=== PATIENT | male | born 1995 | race Caucasian/White ===

== ENCOUNTER 2022-08-21 17:35 | Inpatient (IN) | payer SELFPAY ==
--- OUTSIDE RECORDS SUMMARY | 2022-08-21 18:11 | XMS REPORT | Continuity of Care Document ---
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 parameters (refer to continuous heparin drip order)
vancomycin 2021-09- No 15mg/kg 1,500 mg Univers (VANCOCIN) 10-1012 (rounded ity of 1,500 mg in 16:00: 20:49 from 1,941 [place] NaCl 0.9% 00 :00 mg = 15 Medical (NS) 500 mL mg/kg [place] VIAL-MATE ?129.4 IV kg), IV piggyback Piggyback, Q24H ABX, 1 dose, First dose (after last reorder) on [facility] 08/10/22 at 1000, Administer over 240 Minutes, 500 mL
Reas on for Anti-Infec tive: Documented Infection< br>Documen katerin Infection Site: Blood
D uration of Therapy: 7 days diphenhydrA 2021-09 No 25mg 25 mg, Uni vers MINE 10-10 Intravenou ity of (BENADRYL) 15:45: 16:39 s, ONCE, 1 [place] injection 00 :00 dose, On Medica l 25 mg [facility] 08/10/22 at 0945, Routine furosemide 2021-09 No 40mg 40 mg, Univ ers (LASIX) 10-10 Slow IV ity of injection 10:00: 10:23 Push, [place] 40 mg 00 :00 ONCE, 1 Medical dose, On Branch [facility] 08/10/22 at 0400, Routine sodium 2021-09 No 4mL 4 mL, Univers chloride 7% 10-10 Inhalation i ty of (HYPER-SYLVIA) 07:30: 01:40 , DAILY, [place] nebulizer 00 :11 First dose Medi jeanette solution 4 on [facility] mL 08/10/22 at 0130, Until Discontinu ed, Routine proCHLORper 2021-09 No 5mg 5 mg, IV U nivers azine 10-10 Piggyback, ity of (COMPAZINE) 03:45: 05:31 at 100 [place] as 5 mg in 00 :00 mL/hr Medical NaCl 0.9% Administer Bran ch (NS) over 30 piggyback Minutes, ONCE, 1 dose, On Fri08/09/22 at 2145, Routine enoxaparin 2021-09- No 40mg 40 mg, Univ ers (LOVENOX) 10-09 Subcutaneo ity of injection 23:00: 17:16 us, DAILY, [place] 40 mg 00 :11 First dose Medical on Fri [place] 08/09/22 at 1700, Until Discontinu ed, Routine meropenem 2021-09 No 2000mg 2,000 mg, Univers (MERREM) 10-09 IV ity of 2,000 mg in 22:30: 22:17 Piggyback, [place] NaCl 0.9% 00 :44 Q8H ABX, Medica l (NS) 100 mL 30 doses, Bra nch IV First dose piggyback (after last modificati on) on Fri08/09/22 at 1630, Last dose on Fri08/19/22 at 0830, Administer over 3 Hours, 100 mL
Rest ricted use approved by: JERO 8TH FLOOR
R porfirio for Anti-Infec tive: Empiric Therapy for Suspected Infection< br>Empiric Therapy Site: Blood
D uration of therapy: 5 days vancomycin 2021-09 No 15mg/kg 1,500 mg Univers (VANCOCIN) 10-09 (rounded ity of 1,500 mg in 22:15: 06:43 from 1,941 [place] NaCl 0.9% 00 :00 mg = 15 Medical (NS) 500 mL mg/kg Branch VIAL-MATE ?129.4 IV kg), IV piggyback Piggyback, Q24H ABX, 1 dose, First dose (after last modificati on) on Fri08/09/22 at 1615, Administer over 240 Minutes, 500 mL
Reas on for Anti-Infec tive: Documented Infection< br>Documen katerin Infection Site: Blood
D uration of Therapy: 7 days ipratropium 2021-09 No 3mL 3 mL, Univ ers -albuteroL 10-09 Inhalation it y of (DUONEB) 22:00: 21:40 , QID, [place] 0.5 mg-3 00 :48 First dose Medic al mg(2.5 mg on Fri)/3 mL 08/09/22 nebulizer at 1600, solution 3 Until mL Discontinu ed, Routine diphenhydrA 2021-09 No 25mg 25 mg, Uni vers MINE 10-09 Intravenou ity of (BENADRYL) 21:30: 02:35 s, ONCE, 1 [place] injection 00 :00 dose, On Medica l 25 mg Fri/11/22 at 1530, NAIF lactated 2021-09 Yes 1000mL at 50 Univer s ringers IV 1-11 mL/hr, ity of infusion 18:30: 1,000 mL, [place] 1,000 mL 00 IV Medical Infusion, Branch CONTINUOUS , Starting on Fri08/09/22 at 1230, Until Discontinu ed, Routine phenylephri 2021-09- No .5ug/kg 0.5-6 U nivers ne 10-0915 /min mcg/kg/min ity of (VAZCULEP) 17:48: 01:40 ?129.4 kg [place] 50 mg in 50 :11 (19.41-232 Medic al NaCl 0.9% .92 Branch (NS) 250 mL mL/hr), IV infusion Infusion, TITRATE, MAP Goal > or = 65 mmHg, Starting on Fri08/09/22 at 1148
In itiate infusion at 0.5 mcg/kg/min . &nb sp;Increas e by 0.1 mcg/kg/min every 30 seconds to 5 minutes as needed to reach and maintain goal blood pressure.& nbsp;&nbsp ;Maximum dose = 6 mcg/kg/min . &nb sp;If goal not maintained at maximum allowed dose, contact prescriber .
sulfur 2021-09- No [id number] 5mL 5 mL, Unive rs hexafluorid 10-09 Intravenou i ty of e microsphr 17:15: 16:30 s, ONCE, 1 [place] (LUMASON) 00 :00 dose, On Medica l injection 5 Fri Branch mL 08/09/22 at 1115, Routine
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 Restricted medication : MOTIWALA, AFAQ lidocaine 2021-09- No 5mL 5 mL, Univer s 1% (PF) 10-09 Subcutaneo ity o f (XYLOCAINE) 16:15: 17:30 us, ONCE, [place] injection 5 00 :00 1 dose, On Me dical mL Fri Branch 08/09/22 at 1015, Routine NaCl 0.9% 2021-09 Yes 10mL 10 mL, Univer s (NS) 1-11 Slow IV ity of injection 16:13: Push, PRN, [place] 10 mL 00 Starting Medical on Fri Branch 08/09/22 at 1013, Until Discontinu ed, Routine, line maintenanc e lactated 2021-09 No 1000mL at 999 Univ ers ringers IV 10-09 mL/hr, ity of infusion 15:15: 15:10 1,000 mL, [place] as 1,000 mL 00 :00 Intravenou Medic al s, ONCE, 1 Branch dose, On Fri08/09/22 at 0915, Routine meropenem 2021-09 No 2000mg 2,000 mg, Univers (MERREM) 10-09 IV ity of 2,000 mg in 14:30: 17:15 Piggyback, [place] NaCl 0.9% 00 :00 ONCE, 1 Medical (NS) 100 mL dose, On Bran ch IV Fri piggyback 08/09/22 at 0830, Administer over 30 Minutes, 100 mL
Rest ricted use approved by: JERO 8TH FLOOR
R porfirio for Anti-Infec tive: Empiric Therapy for Suspected Infection< br>Empiric Therapy Site: Blood
D uration of therapy: 5 days magnesium 2021-09 No 4g 4 g, IV Univ ers sulfate in 10-09 Piggyback, it y of water 4 13:30: 20:38 at 25 [place] gram/50 mL 00 :00 mL/hr Medical (8 %) IV Administer Branc h Piggyback 4 over 120 g Minutes, ONCE, 1 dose, On Fri08/09/22 at 0730, Routine proCHLORper 2021-09 Yes 10mg 10 mg, IV U nivers azine 10-09 Piggyback, ity of (COMPAZINE) 13:24: at 100 [place] 10 mg in 49 mL/hr Medical NaCl 0.9% Administer Bran ch (NS) over 30 piggyback Minutes, Q6HPRN, Starting on Fri08/09/22 at 0724, Until Discontinu ed, Routine, Nausea and Vomiting (N/V) dextrose 2021-09 Yes 250mL 250 mL, IV Un shine 10% (D10W) 10-09 Infusion, ity of bolus 12:00: PRN - SEE [place] infusion 57 INSTRUCTIO Medic al 250 mL NS, Branch Administer over 60 Minutes, Other, If blood glucose is < or = 70 mg/dL and patient is unable to swallow or has mental status changes, Starting on Fri08/09/22 at 0600
If blood glucose is < or = 70 mg/dL and patient is unable to swallow or has mental status changes (Give glucagon order if patient needs fluid restrictio n): IF IV access available: Dextrose 10%. 1. 125 mL (? bag) of D10W IV infusion - equivalent to 12.5 g dextrose 2. Blood glucose - draw blood glucose 15 minutes after D10W Administra tion. 3. If blood glucose is < 80 mg/dL, repeat.
glucagon 2021-09 Yes 1mg 1 mg, Univers (GLUCAGEN 10-09 Intramuscu ity of DIAGNOSTIC 12:00: lar, PRN, [place] KIT) 54 Starting Medical injection 1 on Fri Branch mg 08/09/22 at 0600, Until Discontinu ed, NAIF, Blood Glucose < or = 70 mg/dL and patient is unable to swallow or has mental changes. acetaminoph 2021-09 Yes 650mg 650 mg, Un shine en 10-09 Oral, ity of (TYLENOL) 11:24: Q6HPRN, [place] tablet 650 27 Starting Medic al mg on Fri Branch 08/09/22 at 0524, Until Discontinu ed, Routine, Pain (scale 1-3) ondansetron 2021-09- No 4mg 4 mg, Slow Univers (ZOFRAN 10-09 IV Push, ity of (PF)) 09:00: 09:00 ONCE, 1 [place] injection 4 00 :00 dose, On Medi jeanette mg Fri Branch 08/09/22 at 0300, NAIF ranolazine 2021-09 Yes 1000mg Take 1,000 Univers 500 mg 12 -11 mg by ity of hr tablet 08:23: mouth in [place] [facility] 45 the Medical morning Branch and 1,000 mg in the evening. pantoprazol 2021-09 Yes 40mg Take 40 mg Univers e 40 mg EC 11 by mouth ity o f tablet 08:23: in the [place] [id number] morning. Medical Branch atogepant 2021-09 Yes 10mg Take 10 mg Un shine (QULIPTA) 11 by mouth ity of 10 mg Tab 08:23: daily. [address] Branch tirzepatide 2021-09 Yes 5mg inject 5 Un shine (MOUNJARO) 1-11 mg under ity o f 5 mg/0.5 mL 08:23: the skin [place] PnIj 45 every 2 Medical (two) Branch weeks. ranolazine 2021-09 Yes 1000mg Take 1,000 Univers 500 mg 12 -11 mg by ity of hr tablet 08:23: mouth in [place] 45 the Medical morning Branch and 1,000 mg in the evening. pantoprazol 2021-09 Yes 40mg Take 40 mg Univers e 40 mg EC 11 by mouth ity o f tablet 08:23: in the [place] [id number] morning. [facility] Branch atogepant 2021-09 Yes 10mg Take 10 mg Un shine (QULIPTA) 11 by mouth ity of 10 mg Tab 08:23: daily. [address] Branch tirzepatide 2021-09 Yes 5mg inject 5 Un shine (MOUNJARO) 1-11 mg under ity o f 5 mg/0.5 mL 08:23: the skin [place] PnIj 45 every 2 Medical (two) Branch weeks. NaCl 0.9% 2021-09- No 1000mL at 999 Uni vers (NS) IV 10-0911 mL/hr, ity of infusion 07:30: 12:01 Intravenou [place] 1,000 mL 00 :21 s, Medical CONTINUOUS Branch , Starting on Fri08/09/22 at 0130, Until Fri08/09/22 at 0601, Routine doxepin 10 2021-09- No 10mg Take 10 mg Univers mg capsule 10-09 by mouth. ity of 05:38: 00:00 [place] 39 :00 Medical Branch Venlafaxine 2021-09- No Take by Un shine 225 mg TR24 10-09 mouth. ity o f 05:37: 00:00 [place] 51 :00 Medical Branch lurasidone 2021-09- No Take by Uni vers (LATUDA) 20 10-09 mouth. ity o f mg tablet 05:37: 00:00 [place] 36 :00 Medical Branch levalbutero 2021-09 Yes .31mg Inhale Uni vers l 0.31 mg/3 10-09 0.31 mg 3 ity of mL 04:35: (three) [place] nebulizer 17 times Medical solution daily. Branch levalbutero 2021-09 Yes .31mg Inhale Uni vers l 0.31 mg/3 10-09 0.31 mg 3 ity of mL 04:35: (three) [place] nebulizer 17 times Medical solution daily. Branch ondansetron 2021-09- No 4mg 4 mg, Slow Univers (ZOFRAN 10-09 IV Push, ity of (PF)) 02:45: 02:42 ONCE, 1 [place] injection 4 00 :00 dose, On Medi jeanette mg [place] Branch 08/08/22 at 2045, NAIF NaCl 0.9% 2021-09 No 500mL at 999 Univ ers (NS) bolus 10-09 mL/hr, 500 it y of infusion 01:45: 05:01 mL, IV [place] 500 mL 00 :00 Infusion, Medical ONCE, 1 Branch dose, On [place] 08/08/22 at 1945, STAT morpHINE (2 2021-09 No 2mg 2 mg, Slow Univers mg/mL) 10-09 IV Push, ity of injection 2 01:45: 02:37 ONCE, 1 [place] mg 00 :00 dose, On Medical [facility] Branch 08/08/22 at 1945, STAT XARELTO 2.5 2021-09 Yes 2.5mg Take 2.5 U nivers mg tablet 0-31 mg by ity of 00:00: mouth 2 [place] (two) Medical times Branch daily. XARELTO 2.5 2021-09 Yes 2.5mg Take 2.5 U nivers mg tablet 0-31 mg by ity of 00:00: mouth 2 [place] 00 (two) Medical times Branch daily. XARELTO 2.5 2021-09 Yes 2.5mg Take 2.5 U nivers mg tablet 0-31 mg by ity of 00:00: mouth 2 [place] (two) Medical times Branch daily. XARELTO 2.5 2021-09 Yes 2.5mg Take 2.5 U nivers mg tablet 0-31 mg by ity of 00:00: mouth 2 [place] (two) Medical times Branch daily. XARELTO 2.5 2021-09 Yes 2.5mg Take 2.5 U nivers mg tablet 0-31 mg by ity of 00:00: mouth 2 [place] (two) Medical times Branch daily. isosorbide 2021-09 Yes 60mg Take 60 mg U nivers mononitrate 0-29 by mouth ity of 60 mg 24 hr 00:00: every [place] tablet 00 morning. Medical Branch isosorbide 2021-09 Yes 60mg Take 60 mg U nivers mononitrate 0-29 by mouth ity of 60 mg 24 hr 00:00: every [place] tablet 00 morning. Medical Branch isosorbide 2021-09 Yes 60mg Take 60 mg U nivers mononitrate 0-29 by mouth ity of 60 mg 24 hr 00:00: every [place] tablet 00 morning. Medical Branch isosorbide 2021-09 Yes 60mg Take 60 mg U nivers mononitrate 0-29 by mouth ity of 60 mg 24 hr 00:00: every [place] tablet 00 morning. Medical Branch isosorbide 2021-09 Yes 60mg Take 60 mg U nivers mononitrate 0-29 by mouth ity of 60 mg 24 hr 00:00: every [place] tablet 00 morning. Medical Branch metoprolol Yes 25mg Take 25 mg U nivers succinate 8-12 by mouth ity of XL 25 mg 24 00:00: in [place] hr tablet 00 morning. Medica l Branch metoprolol Yes 25mg Take 25 mg U nivers succinate 8-12 by mouth ity of XL 25 mg 24 00:00: in the [place] hr tablet 00 morning. Medica l Branch metoprolol 0 Yes 25mg Take 25 mg U nivers succinate 8-12 by mouth ity of XL 25 mg 24 00:00: in the [place] hr tablet 00 morning. Medica l Branch metoprolol Yes 25mg Take 25 mg U nivers succinate 8-12 by mouth ity of XL 25 mg 24 00:00: in the [place] hr tablet 00 morning. Medica l Branch metoprolol Yes 25mg Take 25 mg U nivers succinate 8-12 by mouth ity of XL 25 mg 24 00:00: in [place] hr tablet 00 morning. Medica l Branch diltiazem 0 Yes 180mg Take 180 Uni vers (CARDIZEM 2-22 mg by ity of CD) 180 mg 00:00: mouth [place] 24 hr 00 every 24 Medical capsule (twenty-fo Branch ur) hours. diltiazem 0 Yes 180mg Take 180 Uni vers (CARDIZEM 2-22 mg by ity of CD) 180 mg 00:00: mouth [place] 24 hr 00 every 24 Medical capsule (twenty-fo Branch ur) hours. diltiazem 0 Yes 180mg Take 180 Uni vers (CARDIZEM 2-22 mg by ity of CD) 180 mg 00:00: mouth [place] 24 hr 00 every 24 Medical capsule (twenty-fo Branch ur) hours. diltiazem 0 Yes 180mg Take 180 Uni vers (CARDIZEM 2-22 mg by ity of CD) 180 mg 00:00: mouth [place] 24 hr 00 every 24 Medical capsule (twenty-fo Branch ur) hours. diltiazem 0 Yes 180mg Take 180 Uni vers (CARDIZEM 2-22 mg by ity of CD) 180 mg 00:00: mouth [place] 24 hr 00 every 24 Medical capsule (twenty-fo Branch ur) hours. sertraline Yes 100mg Take [address] [facility] [address] (ZOLOFT) 7-11 mg [facility] MG 16:37: mouth. Medical tablet 23 Center ranolazine Yes 1000mg Take 1,[address] [facility] (RANEXA) 7-11 mg by [facility] 500 MG 12 16:37: mouth. Medica l hr tablet 23 Center pregabalin 0 Yes 100mg Take [address] (LYRICA) 7-11 mg by [facility] 100 MG 16:37: mouth. Medical capsule 23 Center pantoprazol 0 Yes 40mg Take [address] [facility] e 7-11 by mouth. [facility] (PROTONIX) 16:37: Medical 40 MG 23 Center tablet multivitami Yes 1{capsu Take [address] n per 7-11 le} capsule by [facility] tablet 16:37: mouth. [address] metFORMIN Yes 1{tbl} Take [address] [facility] (GLUCOPHAGE 7-11 tablet by [place] es -XR) 500 MG 16:37: mouth. Medi jeanette 24 hr 23 Center tablet ARIPiprazol Yes 10mg Take [address] [facility] e (ABILIFY) 7-11 by mouth. [place] es 10 MG 16:37: Medical disintegrat [address] [place] [address] ing tablet ascorbic Yes 1000mg Take 1,[address] acid, 7-11 mg by [facility] vitamin C, 16:37: mouth. Medic al (VITAMIN C) 23 [place] 1000 MG tablet aspirin 81 Yes 81mg Take [address] MG EC 7-11 by mouth. [facility] tablet 16:37: [address] carvediloL Yes 25mg Take [address] (COREG) 25 7-11 by mouth. Luke s MG tablet 16:37: [address] cholecalcif Yes 5000U Take 5,[address] aminah, 7-[facility], 16:37: mouth. [facility] jeanette (VITAMIN 23 Center D3) 125 mcg (5,000 unit) capsule clomiPHENE Yes 25mg Take [address] (CLOMID) 50 7-11 by mouth. [place] es mg tablet 16:37: [address] cyanocobala Yes 5000ug Place [facility] min, 7-11 5,000 [facility] vitamin 16:37: under the Medic al B-12, 5,000 23 tongue. Cente r mcg Subl cycloSPORIN Yes 1[drp] [address] E 7-11 [facility] (RESTASIS) 16:37: Medical 0.05 % 23 Center ophthalmic emulsion dilTIAZem Yes 240mg Take [address] (CARDIZEM) 7-11 mg by [facility] 60 MG 16:37: mouth. Medical tablet 23 Center fluticasone Yes 2{puff} Inhale [address] propion-sylvia 7-11 puffs by Luke s meteroL 16:37: mouth via Medic al (ADVAIR) 23 inhaler. [place] 250-50 mcg/dose diskus inhaler furosemide Yes 40mg Take [address] (LASIX) 40 7-11 by mouth. Luke s MG tablet 16:37: Medical 23 Center levalbutero Yes 1{ampul Inhale [address] l (XOPENEX) 7-11 e} ampule by [place] es 1.25 mg/3 16:37: mouth via Med ical mL 23 inhaler. [place] nebulizer solution levalbutero Yes 1{puff} Inhale 1-[address] l (XOPENEX 7-11 puffs by [facility] HFA) 45 16:37: mouth via Medic al mcg/actuati 23 inhaler. Cent er on inhaler sertraline Yes 100mg Take [address] (ZOLOFT) 7-11 mg by [facility] 100 MG 16:37: mouth. Medical tablet 23 Center ranolazine Yes 1000mg Take 1,[address] (RANEXA) 7-11 mg by [facility] 500 MG 12 16:37: mouth. Medica l hr tablet 23 Center pregabalin Yes 100mg Take [address] (LYRICA) 7-11 mg by [facility] 100 MG 16:37: mouth. Medical capsule 23 Center pantoprazol Yes 40mg Take [address] e 7-11 by mouth. [facility] (PROTONIX) 16:37: Medical 40 MG 23 Center tablet multivitami Yes 1{capsu Take [address] n per 7-11 le} capsule by [facility] tablet 16:37: mouth. Medical 23 Center metFORMIN Yes 1{tbl} Take [address] [facility] [address] (GLUCOPHAGE 7-11 tablet by [place] es -XR) 500 MG 16:37: mouth. Medi jeanette 24 hr 23 Center tablet ARIPiprazol Yes 10mg Take [address] [facility] [facility] e (ABILIFY) 7-11 by mouth. [place] es 10 MG 16:37: Medical disintegrat 23 Center ing tablet ascorbic Yes 1000mg Take 1,[address] acid, 7-11 mg by [facility] vitamin C, 16:37: mouth. Medic al (VITAMIN C) 23 Center 1000 MG tablet aspirin 81 Yes 81mg Take [address] MG EC 7-11 by mouth. [facility] tablet 16:37: [address] carvediloL Yes 25mg Take [address] (COREG) 25 7-11 by mouth. Luke s MG tablet 16:37: [address] cholecalcif Yes 5000U Take 5,[address] aminah, 7-11 Units by [facility] vitamin D3, 16:37: mouth. Medi jeanette (VITAMIN Center D3) 125 mcg (5,000 unit) capsule clomiPHENE Yes 25mg Take [address] (CLOMID) 50 7-11 by mouth. [place] es mg tablet 16:37: [address] cyanocobala Yes 5000ug [facility] min, 7-11 5,000 mcg [facility] vitamin 16:37: under the Medic al B-12, 5,000 23 tongue. Cente r mcg Subl cycloSPORIN Yes 1[drp] [address] E 7-11 [facility] (RESTASIS) 16:37: Medical 0.05 % 23 Center ophthalmic emulsion dilTIAZem Yes 240mg Take [address] (CARDIZEM) 7-11 mg by [facility] 60 MG 16:37: mouth. Medical tablet [address] [place] [address] fluticasone Yes 2{puff} Inhale [address] propion-sylvia 7-11 puffs by Luke s meteroL 16:37: mouth via Medic al (ADVAIR) 23 inhaler. [place] 250-50 mcg/dose diskus inhaler furosemide Yes 40mg Take [address] (LASIX) 40 7-11 by mouth. Luke s MG tablet 16:37: [address] levalbutero Yes 1{ampul Inhale [address] l (XOPENEX) 7-11 e} ampule by [place] es 1.25 mg/3 16:37: mouth via Med ical mL 23 inhaler. [place] nebulizer solution levalbutero Yes 1{puff} Inhale 1-[address] l (XOPENEX 7-11 puffs by [facility] HFA) 45 16:37: mouth via Medic al mcg/actuati 23 inhaler. [facility] er on inhaler sertraline Yes 100mg Take [address] (ZOLOFT) 7-11 mg by [facility] 100 MG 16:37: mouth. Medical tablet 23 Center ranolazine Yes 1000mg Take 1,[address] (RANEXA) 7-11 mg by [facility] 500 MG 12 16:37: mouth. Medica l hr tablet 23 Center pregabalin Yes 100mg Take [address] (LYRICA) 7-11 mg by [facility] 100 MG 16:37: mouth. Medical capsule 23 Center pantoprazol Yes 40mg Take [address] e 7-11 by mouth. [facility] (PROTONIX) 16:37: Medical 40 MG 23 Center tablet multivitami Yes 1{capsu Take [address] n per 7-11 le} capsule by [facility] tablet 16:37: mouth. [facility] 23 Center metFORMIN Yes 1{tbl} Take [address] (GLUCOPHAGE 7-11 tablet by [place] es -XR) 500 MG 16:37: mouth. Medi jeanette 24 hr 23 Center tablet ARIPiprazol Yes 10mg Take [address] [facility] e (ABILIFY) 7-11 by mouth. [place] es 10 MG 16:37: [facility] disintegrat 23 Center ing tablet ascorbic Yes 1000mg Take 1,[address] acid, 7-11 mg by [facility] vitamin C, 16:37: mouth. [facility] al (VITAMIN C) 23 Center 1000 MG tablet aspirin 81 Yes 81mg Take [address] MG EC 7-11 by mouth. [facility] tablet 16:37: [address] carvediloL Yes 25mg Take [address] (COREG) 25 7-11 by mouth. Luke s MG tablet 16:37: [place] [address] Center cholecalcif Yes 5000U Take 5,[address] aminah, 7-11 Units by [facility] vitamin D3, 16:37: mouth. Medi jeanette (VITAMIN 23 Center D3) 125 mcg (5,000 unit) capsule clomiPHENE Yes 25mg Take [address] (CLOMID) 50 7-11 by mouth. [place] es mg tablet 16:37: [address] cyanocobala Yes 5000[address] [facility] min, 7-11 5,000 mcg [facility] vitamin 16:37: under the Medic al B-12, 5,000 23 tongue. Cente r mcg Subl cycloSPORIN Yes 1[drp] [address] E 7-11 [facility] (RESTASIS) 16:37: Medical 0.05 % 23 Center ophthalmic emulsion dilTIAZem Yes 240mg Take [address] (CARDIZEM) 7-11 mg by [facility] 60 MG 16:37: mouth. Medical tablet 23 [place] fluticasone Yes 2{puff} Inhale [address] propion-sylvia 7-11 puffs by Luke s meteroL 16:37: mouth via Medic al (ADVAIR) 23 inhaler. [place] 250-50 mcg/dose diskus inhaler furosemide Yes 40mg Take [address] (LASIX) 40 7-11 by mouth. Luke s MG tablet 16:37: Medical 23 [place] levalbutero Yes 1{ampul Inhale [address] l (XOPENEX) 7-11 e} ampule by [place] es 1.25 mg/3 16:37: mouth via Med ical mL 23 inhaler. [place] nebulizer solution levalbutero Yes 1{puff} Inhale 1-[address] l (XOPENEX 7-11 puffs by [facility] HFA) 45 16:37: mouth via Medic al mcg/actuati 23 inhaler. Cent er on inhaler amitriptyli 2020- No 10mg QD Take [address] [facility] ne (ELAVIL) 04-08 0711 by mouth [place] 10 MG 15:25: 00:00 nightly. Medical tablet 26 :00 [place] amitriptyli 2020- No 10mg QD Take [address] [facility] ne (ELAVIL) 04-0811 by mouth [place] 10 MG 15:25: 00:00 nightly. Medical tablet 26 :00 [place] cyanocobala Yes 5000ug QD Place Met hodi min, 7-09 5,[address] vitamin 21:26: under the Hospi ta B-12, 5,000 46 tongue l mcg tablet, daily. sublingual pantoprazol 2021-0 Yes 40mg QD Take 40 mg Methodi e 7-[address] (PROTONIX) 21:26: daily. Hospi ta 40 MG EC 46 l tablet furosemide 1-0 Yes 40mg Q24H Take 40 mg M ethodi (LASIX) 40 7-[address] mg tablet 21:26: daily as Hosp lew 46 needed l (for swelling). ARIPiprazol 2021-0 Yes 10mg QD Take 10 mg Methodi e (ABILIFY) 7-[address] 10 MG 21:26: nightly. Hospita disintegrat 46 l ing tablet cyanocobala 2020-[address] [facility] lizette, 04-06 5,[address] vitamin 21:26: under the Hospi ta B-12, 5,000 46 tongue l mcg tablet, daily. sublingual pantoprazol 2020-0 Yes 40mg QD Take 40 mg Methodi e 7-[address] (PROTONIX) 21:26: daily. Hospi ta 40 MG EC 46 l tablet furosemide 2020-0 Yes 40mg Q24H Take 40 mg M ethodi (LASIX) 40 7-[address] mg tablet 21:26: daily as Hosp lew 46 needed l (for swelling). ARIPiprazol 2020-0 Yes 10mg QD Take 10 mg Methodi e (ABILIFY) 7-[address] 10 MG 21:26: nightly. Hospita disintegrat 46 l ing tablet ranolazine 2020-0 Yes 1000mg Q.5D Take 1,000 Methodi (RANEXA) 7-[address] 500 MG 12 15:24: mouth 2 Hospi ta hr ER 53 (two) l tablet times a day. sertraline 1-0 Yes 100mg QD Take 100 Me [facility] (ZOLOFT) 7-[address] 100 MG 15:24: mouth Hospita tablet 53 daily. l carvediloL 2021-0 Yes 25mg Q.5D Take 25 mg M ethodi (COREG) 25 7-[address] MG tablet 15:24: (two) Hospita 53 times a l day with meals. lisinopriL 2021-0 Yes 5mg QD Take 5 mg [facility] (PRINIVIL) 7-[address] 5 mg tablet 15:24: nightly. Ho spita 53 l atorvastati 2020-0 Yes 20mg QD Take 20 mg [facility] (LIPITOR) 7-[address] 20 mg 15:24: nightly. Hospita tablet 53 Default OP l ins fluticasone 2020-0 Yes 2{puff} Q.5D Inhale 2 [facility] propion-sylvia 7-[address] meteroL 15:24: (two) Hospita (ADVAIR/ 53 times a l WIXELA day. INHUB) 250-50 mcg/dose DISKUS diltiazem 2020-0 Yes 240mg QD Take 240 [facility] (CardIZEM) 7-09 mg by st 60 MG 15:24: mouth Hospita tablet 53 daily. l ranolazine 2020-0 Yes 1000mg Q.5D Take 1,000 [facility] (RANEXA) 7-[address] 500 MG 12 15:24: mouth 2 Hospi ta hr ER 53 (two) l tablet times a day. sertraline 0 Yes 100mg QD Take 100 Me [facility]odi (ZOLOFT) 7-[address] 100 MG 15:24: mouth [facility]ospita tablet 53 daily. l carvediloL 2020-0 Yes 25mg Q.5D Take 25 mg M [facility]i (COREG) 25 7-[address] MG tablet 15:24: (two) Hospita 53 times a l day with meals. lisinopriL 2020-0 Yes 5mg QD Take 5 mg [facility] (PRINIVIL) 7-[address] 5 mg tablet 15:24: nightly. Ho spita 53 l atorvastati 2020-0 Yes 20mg QD Take 20 mg [facility] n (LIPITOR) 7-[address] 20 mg 15:24: nightly. Hospita tablet 53 Default OP l ins fluticasone 2020-0 Yes 2{puff} Q.5D Inhale 2 [facility] propion-sylvia 7-[address] meteroL 15:24: (two) Hospita (ADVAIR/ 53 times a l WIXELA day. INHUB) 250-50 mcg/dose DISKUS diltiazem 2020-0 Yes 240mg QD Take 240 [facility] (CardIZEM) 7-[address] 60 MG 15:24: mouth [facility]ospita tablet 53 daily. l pregabalin Yes 100mg Q.5D Take 100 [facility] (LYRICA) 7-[address] 100 MG 11:41: mouth 2 Hospita capsule 41 (two) l times a day. cholecalcif 0 Yes 5000U QD Take 5,000 [facility] aminah, 7-[address] vitamin D3, 11:41: mouth Hospi ta 5,000 unit 41 daily. l capsule ascorbic Yes 1000mg Q.5D Take 1,000 M ethodi acid, 7-[address] vitamin C, 11:41: mouth 2 Hosp lew (VITAMIN C) 41 (two) l 1000 MG times a tablet day. multivitami Yes 1{capsu Q.5D Take 1 M ethodi n 04-06 le} capsule by st (THERAGRAN) 11:41: mouth 2 Hos loki tablet 41 (two) l times a day. levalbutero Yes 1{puff} Q4H Inhale 1-2 [facility] l (XOPENEX - puffs st HFA) 45 11:41: every 4 Hospita mcg/actuati 41 (four) l on inhaler hours as needed for wheezing or shortness of breath. levalbutero Yes 1{ampul Q4H Take 1 M ethodi l (XOPENEX) 04-06 e} ampule by st 1.25 mg/3 11:41: nebulizati Ho spita mL 41 on every 4 l nebulizer (four) solution hours as needed for wheezing or shortness of breath. varenicline Yes 1mg QD Take 1 mg M ethodi (CHANTIX) [address] mg tablet 11:41: daily. Hospit a 41 Take with l full glass of water. traZODone Yes 75mg QD Take 75 mg [facility] (DESYREL) [address] 50 MG 11:41: nightly. Hospita tablet 41 l cycloSPORIN 0 Yes 1[drp] Q.5D Administer [facility] E 04-[address] (RESTASIS) 11:41: both eyes Ho spita 0.05 % 41 2 (two) l ophthalmic times a emulsion day. aspirin Yes 81mg QD Take 81 mg Meth david (ECOTRIN) [address] 81 MG 11:41: daily. Hospita enteric 41 l coated tablet pregabalin Yes 100mg Q.5D Take 100 [facility] (LYRICA) 7-[address] 100 MG 11:41: mouth 2 Hospita capsule 41 (two) l times a day. cholecalcif Yes 5000U QD Take 5,000 [facility] aminah, 7-09 Units by vitamin D3, 11:41: mouth Hospi ta 5,000 unit 41 daily. l capsule ascorbic Yes 1000mg Q.5D Take 1,000 M ethodi acid, 7-09 mg by vitamin C, 11:41: mouth 2 Hosp lew (VITAMIN C) 41 (two) l 1000 MG times a tablet day. multivitami Yes 1{capsu Q.5D Take 1 M ethodi n 04-06 le} capsule by (THERAGRAN) 11:41: mouth 2 Hos loki tablet 41 (two) l times a day. levalbutero Yes 1{puff} Q4H Inhale 1-2 [facility] l (XOPENEX - puffs st HFA) 45 11:41: every 4 Hospita mcg/actuati 41 (four) l on inhaler hours as needed for wheezing or shortness of breath. levalbutero Yes 1{ampul Q4H Take 1 M ethodi l (XOPENEX) 04-06 e} ampule by 1.25 mg/3 11:41: nebulizati Ho spita mL 41 on every 4 l nebulizer (four) solution hours as needed for wheezing or shortness of breath. varenicline Yes 1mg QD Take 1 mg M [facility]i (CHANTIX) 1 04-[address] mg tablet 11:41: daily. Hospit a 41 Take with l full glass of water. traZODone Yes 75mg QD Take 75 mg [facility] (DESYREL) [address] 50 MG 11:41: nightly. Hospita tablet 41 l cycloSPORIN Yes 1[drp] Q.5D Administer [facility] E 04-[address] (RESTASIS) 11:41: both eyes Ho spita 0.05 % 41 2 (two) l ophthalmic times a emulsion day. aspirin Yes 81mg QD Take 81 mg Meth david (ECOTRIN) 04-[address] 81 MG 11:41: daily. Hospita enteric 41 l coated tablet predniSONE 2020- No 20mg QD Take 1 Meth david (DELTASONE) 04-06 tablet (20 s t 20 mg 00:00: 04:59 mg total) Hospit a tablet 00 :00 by mouth l daily for 9 days. predniSONE 2020- No 20mg QD Take 1 Meth david (DELTASONE) 04-06 tablet (20 s t 20 mg 00:00: 04:59 mg total) Hospit a tablet 00 :00 by mouth l daily for 9 days. predniSONE 2020- No 20mg Take [address] [facility] (DELTASONE) 04-06 by mouth. Nelly kes 20 MG 00:00: 23:59 Medical tablet 00 :00 [place] predniSONE 2020- No 20mg Take [address] [facility] (DELTASONE) 04-06 by mouth. Nelly kes 20 MG 00:00: 23:59 Medical tablet 00 :00 [place] fluticasone 2020- No QD Inhale 1 M ethodi furoate-evan 04-05 inhalation s t anteroL 23:11: 00:00 s daily. Hospi ta (BREO 36 :00 l ELLIPTA) 100-25 mcg/dose blister with device powder for inhalation venlafaxine 2020- No 75mg QD Take 75 mg [facility] XR 04-[address] (EFFEXOR-XR 23:11: 00:00 daily. Hos loki ) 75 MG 24 36 :00 l hr capsule lamoTRIgine 2020- No 25mg Q.5D Take 25 mg [facility] (LaMICtal) 04-[address] 25 MG 23:11: 00:00 (two) Hospita tablet 36 :00 times a l day. cariprazine 2020- No 3mg QD Take 3 mg [facility] (VRAYLAR) 3 04-[address] mg capsule 23:11: 00:00 nightly. Ho spita 36 :00 l fluticasone 2020- No QD Inhale 1 M ethodi furoate-evan 04-05 inhalation s t anteroL 23:11: 00:00 s daily. Hospi ta (BREO 36 :00 l ELLIPTA) 100-25 mcg/dose blister with device powder for inhalation venlafaxine 2020- No 75mg QD Take 75 mg [facility] XR 04-[address] (EFFEXOR-XR 23:11: 00:00 daily. Hos loki ) 75 MG 24 36 :00 l hr capsule lamoTRIgine 2020- No 25mg Q.5D Take 25 mg [facility] (LaMICtal) 04-[address] 25 MG 23:11: 00:00 (two) Hospita tablet 36 :00 times a l day. cariprazine No 3mg QD Take 3 mg [facility] (VRAYLAR) 3 04-[address] mg capsule 23:11: 00:00 nightly. Ho spita 36 :00 l clopidogreL 2020- No 75mg QD Take 75 mg [facility] (PLAVIX) 75 04-[address] mg tablet 21:58: 00:00 daily. Hospi ta 42 :00 l clopidogreL 2020- No 75mg QD Take 75 mg [facility] (PLAVIX) 75 04-05-[address] mg tablet 21:58: 00:00 daily. Hospi ta 42 :00 l atorvastati Yes 20mg Take [address] [facility] (LIPITOR) 5-19 by mouth. Glenna es 20 MG 00:00: Medical tablet 00 Center nitroglycer Yes 1{patch Place [address] [facility] in 5-19 } patch onto [facility] (NITROD[facility]) 00:00: the skin. Me dical 0.1 mg/hr 00 Center patch nitroglycer Yes .4mg Place 0.[address] in 5-19 mg under [facility] (NITROSTAT) 00:00: the Medica l 0.4 MG SL 00 tongue. Center tablet atorvastati 2020-0 Yes 20mg Take [address] [facility] (LIPITOR) 5-19 by mouth. Glenna es 20 MG 00:00: Medical tablet 00 Center nitroglycer 2020-0 Yes 1{patch Place [address] [facility] in 5-19 } patch onto [facility] (NITRODUR) 00:00: the skin. Me dical 0.1 mg/hr 00 Center patch nitroglycer 2020-[address] 0[address] in 5-19 mg [facility] (NITROSTAT) 00:00: the Medica l 0.4 MG SL 00 tongue. Center tablet atorvastati 2020-0 Yes 20mg Take [address] [facility] (LIPITOR) 5-19 by mouth. Gl[place] es 20 MG 00:00: Medical tablet 00 Center nitroglycer 2020-0 Yes 1{patch Place [address] [facility] in 5-19 } patch onto [facility] (NITRODUR) 00:00: the skin. Me dical 0.1 mg/hr 00 Center patch nitroglycer 2020-[address] 0.[address] in 5-19 mg [facility] (NITROSTAT) 00:00: the Medica l 0.4 MG SL 00 tongue. Center tablet lisinopriL 2019-1 Yes 5mg Take [address] [facility] [address] [facility] (PRINIVIL,Z 1-17 by mouth. Glenna es ESTRIL) 5 00:00: Medical MG tablet 00 Center lisinopriL 2020-1 Yes 5mg Take [address] [facility] [address] (PRINIVIL,Z 1-17 by mouth. [place] es ESTRIL) 5 00:00: Medical MG tablet 00 Center lisinopriL 2020-1 Yes 5mg Take [address] [facility] [address] (PRINIVIL,Z 1-17 by mouth. Gl[place] es ESTRIL) 5 00:00: Medical MG tablet 00 [place] levalbutero 2019-0 Yes .31mg Inhale Uni vers l 0.31 mg/3 8-24 0.31 mg 3 ity of mL 23:17: (three) [place] nebulizer 25 times Medical solution daily. Branch Venlafaxine 2019-0 Yes Take by Uni vers 225 mg TR24 8-24 mouth. ity of 23:17: [place] 25 Medical Branch lurasidone 2020-0 Yes Take by [facility] ([facility]) 20 8-24 mouth. ity of mg tablet 23:17: [address] doxepin 10 2019-0 Yes 10mg Take 10 mg U nivers mg capsule 8-24 by mouth. ity of 23:17: [address] levalbutero 2020-0 Yes .31mg Inhale Uni vers l 0.31 mg/3 8-24 0.31 mg 3 ity of mL 23:17: (three) [place] nebulizer 25 times Medical solution daily. Branch Venlafaxine 2019-0 Yes Take by Uni vers 225 mg TR24 8-24 mouth. ity of 23:17: [address] lurasidone 2019-0 Yes Take by [facility] ([facility]) 20 8-24 mouth. ity of mg tablet 23:17: [address] doxepin 10 2019-0 Yes 10mg Take 10 mg U nivers mg capsule 8-24 by mouth. ity of 23:17: [address] levalbutero 2019-0 Yes .31mg Inhale Uni vers l 0.31 mg/3 8-24 0.31 mg 3 ity of mL 23:17: (three) [place] nebulizer 25 times Medical solution daily. Branch Venlafaxine 2019-0 Yes Take by Uni vers 225 mg TR24 8-24 mouth. ity of 23:17: [address] lurasidone 2019-0 Yes Take by [facility] ([facility]) 20 8-24 mouth. ity of mg tablet 23:17: [address] doxepin 10 2019-0 Yes 10mg Take 10 mg U nivers mg capsule 8-24 by mouth. ity of 23:17: [address] pregabalin 2019-0 2020- No 50mg Take 50 mg Univers 50 mg 8-24 08-24 by mouth 3 ity of capsule 22:10: 00:00 (three) [place] 12 :00 times Medical daily. Branch levalbutero 2020-0 Yes .31mg Inhale Uni vers l 0.31 mg/3 8-24 0.31 mg 3 ity of mL 18:17: (three) [place] nebulizer 25 times Medical solution daily. Branch Venlafaxine 2019-0 Yes Take by Uni vers 225 mg TR24 8-24 mouth. ity of 18:17: [address] lurasidone 2020-0 Yes Take by [facility] ers (LATUDA) 20 8-24 mouth. ity of mg tablet 18:17: [address] doxepin 10 2020-0 Yes 10mg Take 10 mg U nivers mg capsule 05-22 by mouth. ity of 18:17: [address] lactated 2020-0 2020- No 500mL at 999 Unive rs ringers IV 05-22 08-24 mL/hr, 500 it y of infusion 10:15: 09:30 mL, IV [place] 500 mL 00 :00 Infusion, Medical ONCE, 1 Branch dose, [facility] 05/22/20 at 0515, STAT lactated 2020-0 2020- No 500mL at 999 Unive rs ringers IV 05-22 08-24 mL/hr, 500 it y of infusion 06:30: 06:19 mL, IV [place] 500 mL 00 :00 Infusion, Medical ONCE, 1 Branch dose, [facility] 05/22/20 at 0130, STAT clonazePAM 2019-0 2020- No .5mg 0.5 mg, Uni vers (KLONOPIN) 05-2224 Oral, ity of tablet 0.5 02:30: 01:46 ONCE, 1 [place] as mg 00 :00 dose, [facility] 05/21/20 at Branch 2130, Routine ramelteon 2020-0 Yes 8mg 8 mg, Univers (ROZEREM) 824 Oral, QHS, ity of tablet 8 mg 02:00: First dose [place] 00 on [facility] 05/21/20 at Branch 2100, Until Discontinu ed, Routine heparin 2020-0 Yes 5000U 5,000 Univers (porcine) 8-22 Units, ity of injection 01:00: [place] 5,000 Units 00 us, Q12H, Med ical First dose Branch on Fri05/19/20 at 2000, Until Discontinu ed, Routine acetaminoph 2020-0 Yes 650mg 650 mg, Un shine en 05-19 Oral, ity of (TYLENOL) 15:35: Q6HPRN, [place] tablet 650 27 Starting Medic al mg [facility] 05/19/20 at 1035, Until Discontinu ed, Routine, Pain (scale 1-3), Pain (scale 4-6) enoxaparin 2020-0 2020- No 1mg/kg 100 mg Un shine (LOVENOX) 05-19 (rounded ity o f injection 13:00: 20:29 from 102 French as 100 mg 00 :06 mg = 1 Medical mg/kg ?102 Branch kg), Subcutane us, Q12H, First dose on Fri05/19/20 at 0800, Until Discontinu ed, Routine atropine 2020-0 Yes .5mg 0.5 mg, IV Uni vers injection 05-19 Push, ity of 0.5 mg 08:22: Q5MIN PRN, [place] 41 Starting Medical [facility] 05/19/20 at 0322, Until Discontinu ed, Routine, Symptomati c Bradycardi a, notify house staff if having to administer glucagon 2020-0 Yes 1mg 1 mg, Univers (GLUCAGEN 05-19 Intramuscu ity of DIAGNOSTIC 07:30: lar, PRN, [place] KIT[place] 24 Starting Medical injection 1 Fri Branch mg 05/19/20 at 0230, Until Discontinu ed, NAIF, Blood Glucose < or = 70 mg/dL and patient is unable to swallow or has mental changes. dextrose 50 2020-0 Yes 25mL 25 mL, Univ ers % in water 05-19 Slow IV ity of (D50W) 07:30: Push, PRN, [place] injection 24 Starting Medica l 25 mL [facility] 05/19/20 at 0230, Until Discontinu ed, NAIF, Blood Glucose < or = 70 mg/dL and patient is unable to swallow or has mental status changes. atropine 2020-0 2020- No .5mg 0.5 mg, IV Un shine injection 05-19 Push, ity of 0.5 mg 05:45: 05:33 ONCE, 1 [place] 00 :00 dose, [facility] at Branch 0045, STAT atropine 2020-0 2020- No .5mg 0.5 mg, IV Un shine injection 05-19 Push, ity of 0.5 mg 04:15: 04:10 ONCE, 1 [place] 00 :00 dose, [facility] 05/18/20 at Branch 2315, STAT atropine 2020-0 2020- No .5mg 0.5 mg, IV Un shine injection 05-19 Push, ity of 0.5 mg 03:45: 02:49 ONCE, 1 [place] 00 :00 dose, [facility] 05/18/20 at Branch 2245, STAT atropine 2019-0 2020- No .5mg 0.5 mg, IV Un shine injection 05-19 Push, ity of 0.5 mg 01:30: 00:37 ONCE, 1 [place] 00 :00 dose, [facility] 05/18/20 at Branch 2030, STAT ondansetron 2019-0 2020- No 4mg 4 mg, Slow Univers (ZOFRAN 05-19 IV Push, ity of (PF)) 00:45: 23:30 ONCE, 1 [place] injection 4 00 :00 dose, [facility] Med ical mg 05/18/20 at Branch 1945, NAIF NaCl 0.9% 2019-0 2020- No 1000mL at 999 Uni vers (NS) bolus 05-19 mL/hr, ity of infusion 00:30: 01:01 1,000 mL, [place] as 1,000 mL 00 :00 IV Medical Infusion, Branch ONCE, 1 dose, [facility] 05/18/20 at 1930, STAT glucagon 2019-0 2020- No 4mg/h 4 mg/hr Univ ers (GLUCAGEN 05-19 (40 ity of DIAGNOSTIC 00:30: 21:43 mL/hr), French as KIT) 5 mg 00 :16 Intravenou Medi jeanette in NaCl s, at 40 Branch 0.9% (NS) mL/hr, 50 mL CONTINUOUS infusion , Starting Maxine 05/18/20 at 1930, Until Fri05/19/20 at 1643, NAIF calcium 2019-0 2020- No 2g 2 g, IV Univer s gluconate 2 05-19 Infusion, it y of g in NaCl 00:30: 00:30 ONCE, 1 [place] 100 mL 00 :00 dose, [facility] Medical (ISO-OSM) 05/18/20 at [facility] RTU IV 1930, infusion 2 Routine g NaCl 0.9% 2019-0 2020- No 1000mL at 999 Uni vers (NS) bolus 05-19 mL/hr, ity of infusion 00:30: 00:24 1,000 mL, French as 1,000 mL 00 :00 IV Medical Infusion, Branch ONCE, 1 dose, [facility] 05/18/20 at 1930, STAT naloxone 2020-0 2020- No 2mg 2 mg, Slow Un shine (NARCAN) 05-19 IV Push, ity of injection 2 00:30: 23:19 ONCE, 1 [place] mg 00 :00 dose, [facility] 05/18/20 at Branch 1930, STAT glucagon 2020-0 2020- No 4mg 4 mg, Univers (GLUCAGEN 05-19 Intravenou ity of DIAGNOSTIC 00:15: 23:17 s, ONCE, 1 [place] KIT) 00 :00 dose, [facility] Medical injection 4 05/18/20 at Br anch mg 1915, Routine iohexol 2020-0 2020- No 120mL 120 mL, Unive rs (OMNIPAQUE 05-17 Intravenou it y of 350 02:45: 02:32 s, ONCE, 1 [place] BULK-150 00 :00 dose, Tue Medica l mL) 05/16/20 at Branch injection 214, 120 mL Routine ondansetron 2019-0 2020- No 4mg 4 mg, Slow Univers (ZOFRAN 05-17 IV Push, ity of (PF)) 02:15: 01:22 ONCE, 1 [place] injection 4 00 :00 dose, Tue Med ical mg 05/16/20 at Branch 2114, NAIF morpHINE 2020-0 2020- No 4mg 4 mg, Slow Un shine injection 4 05-17 IV Push, ity of mg 02:15: 01:22 ONCE, 1 [place] 00 :00 dose, Tue Medical 05/16/20 at Branch 2114, STAT albuterol 2020-0 Yes [id number] 2{puff} Inhale 2 Univers 90 8-18 Puffs ity of mcg/actuati 00:00: every 4 [place] as on inhaler 00 (four) Medical hours as Branch needed for Wheezing or Shortness of Breath. albuterol 2020-0 Yes [id number] 2{puff} Inhale 2 Univers 90 8-18 Puffs ity of mcg/actuati 00:00: every 4 [place] as on inhaler 00 (four) Medical hours as Branch needed for Wheezing or Shortness of Breath. albuterol 2019-0 Yes [id number] 2{puff} Inhale 2 Univers 90 8-18 [id number] Puffs ity of mcg/actuati 00:00: every 4 [place] as on inhaler 00 (four) Medical hours as Branch needed for Wheezing or Shortness of Breath. albuterol 2019-0 Yes [id number] 2{puff} Inhale 2 Univers 90 8-18 [id number] Puffs ity of mcg/actuati 00:00: every 4 [place] as on inhaler 00 (four) Medical hours as Branch needed for Wheezing or Shortness of Breath. albuterol 2019-0 Yes [id number] 2{puff} Inhale 2 Univers 90 8-18 36830 Puffs ity of mcg/actuati 00:00: every 4 [place] as on inhaler 00 (four) Medical hours as Branch needed for Wheezing or Shortness of Breath. albuterol 2019-0 Yes [id number] 2{puff} Inhale 2 Univers 90 8-18 21371 Puffs ity of mcg/actuati 00:00: every 4 [place] as on inhaler 00 (four) Medical hours as Branch needed for Wheezing or Shortness of Breath. albuterol 2019-0 Yes [id number] 2{puff} Inhale 2 Univers 90 8-18 60077 Puffs ity of mcg/actuati 00:00: every 4 [place] as on inhaler 00 (four) Medical hours as Branch needed for Wheezing or Shortness of Breath. albuterol 2019-0 Yes [id number] 2{puff} Inhale 2 Univers 90 8-18 [id number] Puffs ity of mcg/actuati 00:00: every 4 [place] as on inhaler 00 (four) Medical hours as Branch needed for Wheezing or Shortness of Breath. albuterol 2019-0 Yes [id number] 2{puff} Inhale 2 Univers 90 8-18 [id number] Puffs ity of mcg/actuati 00:00: every 4 [place] as on inhaler 00 (four) Medical hours as Branch needed for Wheezing or Shortness of Breath. albuterol 2019-0 Yes [id number] 2{puff} Inhale 2 Univers 90 8-18 Puffs ity of mcg/actuati 00:00: every 4 [place] as on inhaler 00 (four) Medical hours as Branch needed for Wheezing or Shortness of Breath. Acetaminoph 2019-0 No Notes: Danie brielle en 325 MG / 3-15 (Same as: l Hydrocodone 00:34: Anthony Shobha nn Bitartrate 00 325/5) Do 5 MG Oral not exceed Tablet 4gm/day of [Anthony acetaminop 5/325] hen. Acetaminoph No Notes: Danie brielle en 325 MG / 3-15 (Same as: l Hydrocodone 00:34: Anthony Shobha nn Bitartrate 00 325/5) Do 5 MG Oral not exceed Tablet 4gm/day of [Anthony acetaminop 5/325] hen. Acetaminoph No Notes: Danie brielle en 325 MG / 3-15 (Same as: l Hydrocodone 00:34: Anthony Shobha nn Bitartrate 00 325/5) Do 5 MG Oral not exceed Tablet 4gm/day of [Anthony acetaminop 5/325] hen. Acetaminoph No Notes: Danie brielle en 325 MG / 3-15 (Same as: l Hydrocodone 00:34: Anthony Shobha nn Bitartrate 00 325/5) Do 5 MG Oral not exceed Tablet 4gm/day of [Anthony acetaminop 5/325] hen. Acetaminoph No Notes: Danie brielle en 325 MG / 3-15 (Same as: l Hydrocodone 00:34: Anthony Shobha nn Bitartrate 00 325/5) Do 5 MG Oral not exceed Tablet 4gm/day of [Anthony acetaminop 5/325] hen. Acetaminoph No Notes: Danie brielle en 325 MG / 3-15 (Same as: l Hydrocodone 00:34: Anthony Shobha nn Bitartrate 00 325/5) Do 5 MG Oral not exceed Tablet 4gm/day of [Anthony acetaminop 5/325] hen. Acetaminoph No Notes: Danie brielle en 325 MG / 3-15 (Same as: l Hydrocodone 00:34: Anthony Shobha nn Bitartrate 00 325/5) Do 5 MG Oral not exceed Tablet 4gm/day of [Anthony acetaminop 5/325] hen. Acetaminoph No Notes: Danie brielle en 325 MG / 3-15 (Same as: l Hydrocodone 00:34: Anthony Shobha nn Bitartrate 00 325/5) Do 5 MG Oral not exceed Tablet 4gm/day of [Anthony acetaminop 5/325] hen. Acetaminoph No Notes: Danie brielle en 325 MG / 3-15 (Same as: l Hydrocodone 00:34: Anthony Shobha nn Bitartrate 00 325/5) Do 5 MG Oral not exceed Tablet 4gm/day of [Anthony acetaminop 5/325] hen. Acetaminoph No Notes: Danie brielle en 325 MG / 3-15 (Same as: l Hydrocodone 00:34: Anthony Shobha nn Bitartrate 00 325/5) Do 5 MG Oral not exceed Tablet 4gm/day of [Anthony acetaminop 5/325] hen. Acetaminoph No Notes: Danie brielle en 325 MG / 3-15 (Same as: l Hydrocodone 00:34: Anthony Shobha nn Bitartrate 00 325/5) Do 5 MG Oral not exceed Tablet 4gm/day of [Anthony acetaminop 5/325] hen. Acetaminoph No Notes: Danie brielle en 325 MG / 3-15 (Same as: l Hydrocodone 00:34: Anthony Shobha nn Bitartrate 00 325/5) Do 5 MG Oral not exceed Tablet 4gm/day of [Anthony acetaminop 5/325] hen. Acetaminoph No Notes: Danie brielle en 325 MG / 3-15 (Same as: l Hydrocodone 00:34: Anthony Shobha nn Bitartrate 00 325/5) Do 5 MG Oral not exceed Tablet 4gm/day of [Anthony acetaminop 5/325] hen. Acetaminoph No Notes: Danie brielle en 325 MG / 3-15 (Same as: l Hydrocodone 00:34: Anthony Shobha nn Bitartrate 00 325/5) Do 5 MG Oral not exceed Tablet 4gm/day of [Anthony acetaminop 5/325] hen. Acetaminoph No Notes: Danie brielle en 325 MG / 3-15 (Same as: l Hydrocodone 00:34: Anthony Shobha nn Bitartrate 00 325/5) Do 5 MG Oral not exceed Tablet 4gm/day of [Anthony acetaminop 5/325] hen. Morphine No 2 mg, Memoria 3-06 Route: l 01:45: IVP, ONCE, [place] 00 Dosing Weight 94.05, kg, Priority: STAT, Start date: 12/02/19 19:45:00 [employer], Stop date: 12/02/19 19:45:00 [employer] Morphine 2020-0 No 2 mg, Memoria 3-06 Route: l 01:45: IVP, ONCE, [place] Dosing Weight 94.05, kg, Priority: STAT, Start date: 12/02/19 19:45:00 [employer], Stop date: 12/02/19 19:45:00 [employer] Morphine 2020-0 No 2 mg, [facility] 3-06 Route: l 01:45: IVP, ONCE, [place] 00 Dosing Weight 94.05, kg, Priority: STAT, Start date: 12/02/19 19:45:00 [employer], Stop date: 12/02/19 19:45:00 [employer] Morphine 2020-0 No 2 mg, [facility] 3-06 Route: l 01:45: IVP, ONCE, [place] 00 Dosing Weight 94.05, kg, Priority: STAT, Start date: 12/02/19 19:45:00 [employer], Stop date: 12/02/19 19:45:00 [employer] Morphine 2020-0 No 2 mg, [facility] 3-06 Route: l 01:45: IVP, ONCE, [place] 00 Dosing Weight 94.05, kg, Priority: STAT, Start date: 12/02/19 19:45:00 [employer], Stop date: 12/02/19 19:45:00 [employer] Morphine 2020-0 No 2 mg, [facility] 3-06 Route: l 01:45: IVP, ONCE, [place] 00 Dosing Weight 94.05, kg, Priority: STAT, Start date: 12/02/19 19:45:00 [employer], Stop date: 12/02/19 19:45:00 [employer] Morphine 2020-0 No 2 mg, [facility] 3-06 Route: l 01:45: IVP, ONCE, [place] 00 Dosing Weight 94.05, kg, Priority: STAT, Start date: 12/02/19 19:45:00 [employer], Stop date: 12/02/19 19:45:00 [employer] Morphine 2020-0 No 2 mg, [facility] 3-06 Route: l 01:45: IVP, ONCE, [place] 00 Dosing Weight 94.05, kg, Priority: STAT, Start date: 12/02/19 19:45:00 [employer], Stop date: 12/02/19 19:45:00 [employer] Morphine 2020-0 No 2 mg, [facility] 3-06 Route: l 01:45: IVP, ONCE, [place] 00 Dosing Weight 94.05, kg, Priority: STAT, Start date: 12/02/19 19:45:00 [employer], Stop date: 12/02/19 19:45:00 [employer] Morphine 2020-0 No 2 mg, [facility] 3-06 Route: l 01:45: IVP, ONCE, [place] 00 Dosing Weight 94.05, kg, Priority: STAT, Start date: 12/02/19 19:45:00 [employer], Stop date: 12/02/19 19:45:00 [employer] Morphine 2020-0 No 2 mg, [facility] 3-06 Route: l 01:45: IVP, ONCE, [place] 00 Dosing Weight 94.05, kg, Priority: STAT, Start date: 12/02/19 19:45:00 [employer], Stop date: 12/02/19 19:45:00 [employer] Morphine 2020-0 No 2 mg, Memoria 3-06 Route: l 01:45: IVP, ONCE, [place] 00 Dosing Weight 94.05, kg, Priority: STAT, Start date: 12/02/19 19:45:00 [employer], Stop date: 12/02/19 19:45:00 [employer] Morphine 2020-0 No 2 mg, Memoria 3-06 Route: l 01:45: IVP, ONCE, [place] 00 Dosing Weight 94.05, kg, Priority: STAT, Start date: 12/02/19 19:45:00 [employer], Stop date: 12/02/19 19:45:00 [employer] Morphine 2020-0 No 2 mg, Memoria 3-06 Route: l 01:45: IVP, ONCE, [place] 00 Dosing Weight 94.05, kg, Priority: STAT, Start date: 12/02/19 19:45:00 [employer], Stop date: 12/02/19 19:45:00 [employer] Morphine 2020-0 No 2 mg, Memoria 3-06 Route: l 01:45: IVP, ONCE, [place] 00 Dosing Weight 94.05, kg, Priority: STAT, Start date: 12/02/19 19:45:00 [employer], Stop date: 12/02/19 19:45:00 [employer] Valium 2020-0 No 5 mg, Memoria 3-06 Route: PO, l 01:05: Drug form: [place] 00 TAB, ONCE, Dosing Weight 94.05, kg, Priority: STAT, Start date: 12/02/19 19:05:00 [employer], Stop date: 12/02/19 19:05:00 [employer] Valium 2020-0 No 5 mg, Memoria 3-06 Route: PO, l 01:05: Drug form: Vaughn 00 TAB, ONCE, Dosing Weight 94.05, kg, Priority: STAT, Start date: 12/02/19 19:05:00 [employer], Stop date: 12/02/19 19:05:00 [employer] Valium 2020-0 No 5 mg, Memoria 3-06 Route: PO, l 01:05: Drug form: [place] 00 TAB, ONCE, Dosing Weight 94.05, kg, Priority: STAT, Start date: 12/02/19 19:05:00 [employer], Stop date: 12/02/19 19:05:00 [employer] Valium 2020-0 No 5 mg, Memoria 3-06 Route: PO, l 01:05: Drug form: [place] 00 TAB, ONCE, Dosing Weight 94.05, kg, Priority: STAT, Start date: 12/02/19 19:05:00 [employer], Stop date: 12/02/19 19:05:00 [employer] Valium 2020-0 No 5 mg, Memoria 3-06 Route: PO, l 01:05: Drug form: [place] 00 TAB, ONCE, Dosing Weight 94.05, kg, Priority: STAT, Start date: 12/02/19 19:05:00 [employer], Stop date: 12/02/19 19:05:00 [employer] Valium 2020-0 No 5 mg, Memoria 3-06 Route: PO, l 01:05: Drug form: [place] 00 TAB, ONCE, Dosing Weight 94.05, kg, Priority: STAT, Start date: 12/02/19 19:05:00 [employer], Stop date: 12/02/19 19:05:00 [employer] Valium 2020-0 No 5 mg, Memoria 3-06 Route: PO, l 01:05: Drug form: [place] 00 TAB, ONCE, Dosing Weight 94.05, kg, Priority: STAT, Start date: 12/02/19 19:05:00 [employer], Stop date: 12/02/19 19:05:00 [employer] Valium 2020-0 No 5 mg, Memoria 3-06 Route: PO, l 01:05: Drug form: [place] 00 TAB, ONCE, Dosing Weight 94.05, kg, Priority: STAT, Start date: 12/02/19 19:05:00 [employer], Stop date: 12/02/19 19:05:00 [employer] Valium 2020-0 No 5 mg, Memoria 3-06 Route: PO, l 01:05: Drug form: [place] 00 TAB, ONCE, Dosing Weight 94.05, kg, Priority: STAT, Start date: 12/02/19 19:05:00 [employer], Stop date: 12/02/19 19:05:00 [employer] Valium 2020-0 No 5 mg, Memoria 3-06 Route: PO, l 01:05: Drug form: [place] 00 TAB, ONCE, Dosing Weight 94.05, kg, Priority: STAT, Start date: 12/02/19 19:05:00 [employer], Stop date: 12/02/19 19:05:00 [employer] Valium 2020-0 No 5 mg, Memoria 3-06 Route: PO, l 01:05: Drug form: [place] 00 TAB, ONCE, Dosing Weight 94.05, kg, Priority: STAT, Start date: 12/02/19 19:05:00 [employer], Stop date: 12/02/19 19:05:00 [employer] Valium 2020-0 No 5 mg, Memoria 3-06 Route: PO, l 01:05: Drug form: [place] 00 TAB, ONCE, Dosing Weight 94.05, kg, Priority: STAT, Start date: 12/02/19 19:05:00 [employer], Stop date: 12/02/19 19:05:00 [employer] Valium 2020-0 No 5 mg, Memoria 3-06 Route: PO, l 01:05: Drug form: [place] 00 TAB, ONCE, Dosing Weight 94.05, kg, Priority: STAT, Start date: 12/02/19 19:05:00 [employer], Stop date: 12/02/19 19:05:00 [employer] Valium 2020-0 No 5 mg, Memoria 3-06 Route: PO, l 01:05: Drug form: [place] 00 TAB, ONCE, Dosing Weight 94.05, kg, Priority: STAT, Start date: 12/02/19 19:05:00 [employer], Stop date: 12/02/19 19:05:00 [employer] Valium 2020-0 No 5 mg, Memoria 3-06 Route: PO, l 01:05: Drug form: [place] 00 TAB, ONCE, Dosing Weight 94.05, kg, Priority: STAT, Start date: 12/02/19 19:05:00 [employer], Stop date: 12/02/19 19:05:00 [employer] ketOROLAC 2020-0 No 15 mg, Memori a 15 mg/mL 3-06 Route: l injectable 01:02: IVP, Drug He rmann solution 00 form: INJ, ONCE, Dosing Weight 94.05, kg, Priority: STAT, Start date: 12/02/19 19:02:00 [employer], Stop date: 12/02/19 19:02:00 [employer] ketOROLAC 2020-0 No 15 mg, Memori a 15 mg/mL 3- Route: l injectable 01:02: IVP, Drug He rmann solution 00 form: INJ, ONCE, Dosing Weight 94.05, kg, Priority: STAT, Start date: 12/02/19 19:02:00 [employer], Stop date: 12/02/19 19:02:00 [employer] ketOROLAC 2020-0 No 15 mg, Memori a 15 mg/mL 3- Route: l injectable 01:02: IVP, Drug He rmann solution 00 form: INJ, ONCE, Dosing Weight 94.05, kg, Priority: STAT, Start date: 12/02/19 19:02:00 [employer], Stop date: 12/02/19 19:02:00 [employer] ketOROLAC 2020-0 No 15 mg, Memori a 15 mg/mL 3- Route: l injectable 01:02: IVP, Drug He rmann solution 00 form: INJ, ONCE, Dosing Weight 94.05, kg, Priority: STAT, Start date: 12/02/19 19:02:00 [employer], Stop date: 12/02/19 19:02:00 [employer] ketOROLAC 2020-0 No 15 mg, Memori a 15 mg/mL 3-06 Route: l injectable 01:02: IVP, Drug He rmann solution 00 form: INJ, ONCE, Dosing Weight 94.05, kg, Priority: STAT, Start date: 12/02/19 19:02:00 [employer], Stop date: 12/02/19 19:02:00 [employer] ketOROLAC 2020-0 No 15 mg, Memori a 15 mg/mL 3- Route: l injectable 01:02: IVP, Drug He rmann solution 00 form: INJ, ONCE, Dosing Weight 94.05, kg, Priority: STAT, Start date: 12/02/19 19:02:00 [employer], Stop date: 12/02/19 19:02:00 [employer] ketOROLAC 2020-0 No 15 mg, Memori a 15 mg/mL 3- Route: l injectable 01:02: IVP, Drug He rmann solution 00 form: INJ, ONCE, Dosing Weight 94.05, kg, Priority: STAT, Start date: 12/02/19 19:02:00 [employer], Stop date: 12/02/19 19:02:00 [employer] ketOROLAC 2020-0 No 15 mg, Memori a 15 mg/mL - Route: l injectable 01:02: IVP, Drug He rmann solution 00 form: INJ, ONCE, Dosing Weight 94.05, kg, Priority: STAT, Start date: 12/02/19 19:02:00 [employer], Stop date: 12/02/19 19:02:00 [employer] ketOROLAC 2020-0 No 15 mg, Memori a 15 mg/mL - Route: l injectable 01:02: IVP, Drug He rmann solution 00 form: INJ, ONCE, Dosing Weight 94.05, kg, Priority: STAT, Start date: 12/02/19 19:02:00 [employer], Stop date: 12/02/19 19:02:00 [employer] ketOROLAC 2020-0 No 15 mg, Memori a 15 mg/mL 3- Route: l injectable 01:02: IVP, Drug He rmann solution 00 form: INJ, ONCE, Dosing Weight 94.05, kg, Priority: STAT, Start date: 12/02/19 19:02:00 [employer], Stop date: 12/02/19 19:02:00 [employer] ketOROLAC 2020-0 No 15 mg, Memori a 15 mg/mL 3-06 Route: l injectable 01:02: IVP, Drug He rmann solution 00 form: INJ, ONCE, Dosing Weight 94.05, kg, Priority: STAT, Start date: 12/02/19 19:02:00 [employer], Stop date: 12/02/19 19:02:00 [employer] ketOROLAC 2020-0 No 15 mg, Memori a 15 mg/mL 3- Route: l injectable 01:02: IVP, Drug He rmann solution 00 form: INJ, ONCE, Dosing Weight 94.05, kg, Priority: STAT, Start date: 12/02/19 19:02:00 [employer], Stop date: 12/02/19 19:02:00 [employer] ketOROLAC 2020-0 No 15 mg, Memori a 15 mg/mL 12-02 Route: l injectable 01:02: IVP, Drug He rmann solution 00 form: INJ, ONCE, Dosing Weight 94.05, kg, Priority: STAT, Start date: 12/02/19 19:02:00 [employer], Stop date: 12/02/19 19:02:00 [employer] ketOROLAC 2020-0 No 15 mg, Memori a 15 mg/mL 12-02 Route: l injectable 01:02: IVP, Drug He rmann solution 00 form: INJ, ONCE, Dosing Weight 94.05, kg, Priority: STAT, Start date: 12/02/19 19:02:00 [employer], Stop date: 12/02/19 19:02:00 [employer] ketOROLAC 2020-0 No 15 mg, Memori a 15 mg/mL 12-02 Route: l injectable 01:02: IVP, Drug He rmann solution 00 form: INJ, ONCE, Dosing Weight 94.05, kg, Priority: STAT, Start date: 12/02/19 19:02:00 [employer], Stop date: 12/02/19 19:02:00 [employer] Al No Notes: Memoria hydroxide/M 3-05 (aluminum l g 23:57: hydroxide- [place] hydroxide/s 00 magnesium imethicone hyd-simeth icone 200-200-20 mg/5ml 30 ml ud AAMIR) Xylocaine 0 No Notes: Memori a Viscous 2% 3-05 (Same as: l mucous 23:57: Xylocaine) Shobha nn membrane 00 solution Al 2020-0 No Notes: [facility]oria hydroxide/M 3-05 (aluminum l g 23:57: hydroxide- [place] hydroxide/s 00 magnesium imethicone hyd-simeth icone 200-200-20 mg/5ml 30 ml ud AAMIR) Xylocaine 2019-0 No Notes: Memori a Viscous 2% 3-05 (Same as: l mucous 23:57: Xylocaine) Shobha nn membrane 00 solution Al 2019- No Notes: [facility]oria hydroxide/M 3-05 (aluminum l g 23:57: hydroxide- [place] hydroxide/s 00 magnesium imethicone hyd-simeth icone 200-200-20 mg/5ml 30 ml ud AAMIR) Xylocaine 2019-0 No Notes: Memori a Viscous 2% 3-05 (Same as: l mucous 23:57: Xylocaine) Shobha nn membrane 00 solution Al 2019-0 No Notes: [facility]oria hydroxide/M 3-05 (aluminum l g 23:57: hydroxide- [place] hydroxide/s 00 magnesium imethicone hyd-simeth icone 200-200-20 mg/5ml 30 ml ud AAMIR) Xylocaine 2019-0 No Notes: Memori a Viscous 2% 3-05 (Same as: l mucous 23:57: Xylocaine) Shobha nn membrane 00 solution Al 2019-0 No Notes: [facility]oria hydroxide/M 3-05 (aluminum l g 23:57: hydroxide- [place] hydroxide/s 00 magnesium imethicone hyd-simeth icone 200-200-20 mg/5ml 30 ml ud AAMIR) Xylocaine 2019-0 No Notes: Memori a Viscous 2% 3-05 (Same as: l mucous 23:57: Xylocaine) Shobha nn membrane 00 solution Al 2019-0 No Notes: [facility]oria hydroxide/M 3-05 (aluminum l g 23:57: hydroxide- [place] hydroxide/s 00 magnesium imethicone hyd-simeth icone 200-200-20 mg/5ml 30 ml ud AAMIR) Xylocaine 2019-0 No Notes: Memori a Viscous 2% 3-05 (Same as: l mucous 23:57: Xylocaine) Shobha nn membrane 00 solution Al 2019-0 No Notes: [facility]oria hydroxide/M 3-05 (aluminum l g 23:57: hydroxide- [place] hydroxide/s 00 magnesium imethicone hyd-simeth icone 200-200-20 mg/5ml 30 ml ud AAMIR) Xylocaine 2020-0 No Notes: Memori a Viscous 2% 3-05 (Same as: l mucous 23:57: Xylocaine) Shobha nn membrane 00 solution Al 2019-0 No Notes: Memoria hydroxide/M 3-05 (aluminum l g 23:57: hydroxide- [place] hydroxide/s 00 magnesium imethicone hyd-simeth icone 200-200-20 mg/5ml 30 ml ud AAMIR) Xylocaine 2020-0 No Notes: Memori a Viscous 2% 3-05 (Same as: l mucous 23:57: Xylocaine) Shobha nn membrane 00 solution Al 2019-0 No Notes: Memoria hydroxide/M 3-05 (aluminum l g 23:57: hydroxide- [place] hydroxide/s 00 magnesium imethicone hyd-simeth icone 200-200-20 mg/5ml 30 ml ud AAMIR) Xylocaine 2020-0 No Notes: Memori a Viscous 2% 3-05 (Same as: l mucous 23:57: Xylocaine) Shobha nn membrane 00 solution Al 2019-0 No Notes: Memoria hydroxide/M 3-05 (aluminum l g 23:57: hydroxide- [place] hydroxide/s 00 magnesium imethicone hyd-simeth icone 200-200-20 mg/5ml 30 ml ud AAMIR) Xylocaine 2020-0 No Notes: Memori a Viscous 2% 3-05 (Same as: l mucous 23:57: Xylocaine) Shobha nn membrane 00 solution Al 2019-0 No Notes: Memoria hydroxide/M 3-05 (aluminum l g 23:57: hydroxide- [place] hydroxide/s 00 magnesium imethicone hyd-simeth icone 200-200-20 mg/5ml 30 ml ud AAMIR) Xylocaine 2020-0 No Notes: Memori a Viscous 2% 3-05 (Same as: l mucous 23:57: Xylocaine) Shobha nn membrane 00 solution Al 2019-0 No Notes: Memoria hydroxide/M 3-05 (aluminum l g 23:57: hydroxide- [place] hydroxide/s 00 magnesium imethicone hyd-simeth icone 200-200-20 mg/5ml 30 ml ud AAMIR) Xylocaine 2020-0 No Notes: Memori a Viscous 2% 3-05 (Same as: l mucous 23:57: Xylocaine) Shobha nn membrane 00 solution Al 0 No Notes: Memoria hydroxide/M 3-05 (aluminum l g 23:57: hydroxide- [place] hydroxide/s 00 magnesium imethicone hyd-simeth icone 200-200-20 mg/5ml 30 ml ud AAMIR) Xylocaine No Notes: Memori a Viscous 2% 3-05 (Same as: l mucous 23:57: Xylocaine) Shobha nn membrane 00 solution Al No Notes: Memoria hydroxide/M 3-05 (aluminum l g 23:57: hydroxide- [place] hydroxide/s 00 magnesium imethicone hyd-simeth icone 200-200-20 mg/5ml 30 ml ud AAMIR) Xylocaine No Notes: Memori a Viscous 2% 3-05 (Same as: l mucous 23:57: Xylocaine) Shobha nn membrane 00 solution Al No Notes: [facility] hydroxide/M 3-05 (aluminum l g 23:57: hydroxide- [place] hydroxide/s 00 magnesium imethicone hyd-simeth icone 200-200-20 mg/5ml 30 ml ud AAMIR) Xylocaine No Notes: Memori a Viscous 2% 3-05 (Same as: l mucous 23:57: Xylocaine) Shobha nn membrane 00 solution Saline No Notes: Memoria Flush 0.9% 3-05 Same as: l 23:51: BD [place] 00 Posiflush Sterile GI cocktail 2019-0 No 45 mL, Danie brielle (aluminum 3-05 Route: PO, l hydroxide/m 23:51: Dosing Herm bebe agnesium 00 Weight hydroxide/l 94.05, kg, idocaine/si ONCE, methicone) STAT, Start date: 12/02/19 17:51:00 [employer], Stop date: 12/02/19 17:51:00 [employer] Saline No Notes: [facility] Flush 0.9% 3-05 Same as: l 23:51: BD [place] 00 Posiflush Sterile GI cocktail 2019-0 No 45 mL, Danie brielle (aluminum 3-05 Route: PO, l hydroxide/m 23:51: Dosing Herm bebe agnesium 00 Weight hydroxide/l 94.05, kg, idocaine/si ONCE, methicone) STAT, Start date: 12/02/19 17:51:00 [employer], Stop date: 12/02/19 17:51:00 [employer] Saline No Notes: [facility] Flush 0.9% 3-05 Same as: l 23:51: BD [place] 00 Posiflush Sterile GI cocktail No 45 mL, Danie brielle (aluminum 3-05 Route: PO, l hydroxide/m 23:51: Dosing Herm bebe agnesium 00 Weight hydroxide/l 94.05, kg, idocaine/si ONCE, methicone) STAT, Start date: 12/02/19 17:51:00 [employer], Stop date: 12/02/19 17:51:00 [employer] Saline No Notes: Memoria Flush 0.9% 3-05 Same as: l 23:51: BD [place] 00 Posiflush Sterile GI cocktail No 45 mL, Danie brielle (aluminum 3-05 Route: PO, l hydroxide/m 23:51: Dosing Herm bebe agnesium 00 Weight hydroxide/l 94.05, kg, idocaine/si ONCE, methicone) STAT, Start date: 12/02/19 17:51:00 [employer], Stop date: 12/02/19 17:51:00 [employer] Saline No Notes: Memoria Flush 0.9% 3-05 Same as: l 23:51: BD [place] 00 Posiflush Sterile GI cocktail No 45 mL, Danie brielle (aluminum 3-05 Route: PO, l hydroxide/m 23:51: Dosing Herm bebe agnesium 00 Weight hydroxide/l 94.05, kg, idocaine/si ONCE, methicone) STAT, Start date: 12/02/19 17:51:00 [employer], Stop date: 12/02/19 17:51:00 [employer] Saline No Notes: Memoria Flush 0.9% 3-05 Same as: l 23:51: BD [place] 00 Posiflush Sterile GI cocktail No 45 mL, Danie brielle (aluminum 3-05 Route: PO, l hydroxide/m 23:51: Dosing Herm bebe agnesium 00 Weight hydroxide/l 94.05, kg, idocaine/si ONCE, methicone) STAT, Start date: 12/02/19 17:51:00 [employer], Stop date: 12/02/19 17:51:00 [employer] Saline No Notes: [facility] Flush 0.9% 3-05 Same as: l 23:51: BD [place] 00 Posiflush Sterile GI cocktail No 45 mL, Danie brielle (aluminum 3-05 Route: PO, l hydroxide/m 23:51: Dosing Herm bebe agnesium 00 Weight hydroxide/l 94.05, kg, idocaine/si ONCE, methicone) STAT, Start date: 12/02/19 17:51:00 [employer], Stop date: 12/02/19 17:51:00 [employer] Saline No Notes: Memoria Flush 0.9% 3-05 Same as: l 23:51: BD [place] 00 Posiflush Sterile GI cocktail No 45 mL, Danie brielle (aluminum 3-05 Route: PO, l hydroxide/m 23:51: Dosing Herm bebe agnesium 00 Weight hydroxide/l 94.05, kg, idocaine/si ONCE, methicone) STAT, Start date: 12/02/19 17:51:00 [employer], Stop date: 12/02/19 17:51:00 [employer] Saline No Notes: [facility] Flush 0.9% 3-05 Same as: l 23:51: BD [place] 00 Posiflush Sterile GI cocktail No 45 mL, Danie brielle (aluminum 3-05 Route: PO, l hydroxide/m 23:51: Dosing Herm bebe agnesium 00 Weight hydroxide/l 94.05, kg, idocaine/si ONCE, methicone) STAT, Start date: 12/02/19 17:51:00 [employer], Stop date: 12/02/19 17:51:00 [employer] Saline No Notes: [facility] Flush 0.9% 3-05 Same as: l 23:51: BD [place] 00 Posiflush Sterile GI cocktail No 45 mL, Danie brielle (aluminum 3-05 Route: PO, l hydroxide/m 23:51: Dosing Herm bebe agnesium 00 Weight hydroxide/l 94.05, kg, idocaine/si ONCE, methicone) STAT, Start date: 12/02/19 17:51:00 [employer], Stop date: 12/02/19 17:51:00 [employer] Saline No Notes: [facility] Flush 0.9% 3-05 Same as: l 23:51: BD [place] 00 Posiflush Sterile GI cocktail No 45 mL, Danie brielle (aluminum 3-05 Route: PO, l hydroxide/m 23:51: Dosing Herm bebe agnesium 00 Weight hydroxide/l 94.05, kg, idocaine/si ONCE, methicone) STAT, Start date: 12/02/19 17:51:00 [employer], Stop date: 12/02/19 17:51:00 [employer] Saline No Notes: [facility]oria Flush 0.9% 3-05 Same as: l 23:51: BD [place] 00 Posiflush Sterile GI cocktail No 45 mL, Danie brielle (aluminum 3-05 Route: PO, l hydroxide/m 23:51: Dosing Herm bebe agnesium 00 Weight hydroxide/l 94.05, kg, idocaine/si ONCE, methicone) STAT, Start date: 12/02/19 17:51:00 [employer], Stop date: 12/02/19 17:51:00 [employer] Saline No Notes: Mem[facility] Flush 0.9% 3-05 Same as: l 23:51: BD [place] 00 Posiflush Sterile GI cocktail No 45 mL, Danie brielle (aluminum 3-05 Route: PO, l hydroxide/m 23:51: Dosing Herm bebe agnesium 00 Weight hydroxide/l 94.05, kg, idocaine/si ONCE, methicone) STAT, Start date: 12/02/19 17:51:00 [employer], Stop date: 12/02/19 17:51:00 [employer] Saline No Notes: Memoria Flush 0.9% 3-05 Same as: l 23:51: BD [place] 00 Posiflush Sterile GI cocktail 0 No 45 mL, Danie brielle (aluminum 3-05 Route: PO, l hydroxide/m 23:51: Dosing Herm bebe agnesium 00 Weight hydroxide/l 94.05, kg, idocaine/si ONCE, methicone) STAT, Start date: 12/02/19 17:51:00 [employer], Stop date: 12/02/19 17:51:00 [employer] Saline No Notes: Memoria Flush 0.9% 3-05 Same as: l 23:51: BD [place] 00 Posiflush Sterile GI cocktail No 45 mL, Danie brielle (aluminum 3-05 Route: PO, l hydroxide/m 23:51: Dosing Herm bebe agnesium 00 Weight hydroxide/l 94.05, kg, idocaine/si ONCE, methicone) STAT, Start date: 12/02/19 17:51:00 [employer], Stop date: 12/02/19 17:51:00 [employer] Aspirin No Notes: Memoria 3-04 Take with l 00:11: food. Vaughn 00 Morphine No Notes: Memoria 3-04 (Same l 00:11: as:MORPhin Vaughn 00 e Sulfate) Aspirin No Notes: Memoria 3-04 Take with l 00:11: food. [place] 00 Morphine No Notes: Memoria 3-04 (Same l 00:11: as:MORPhin [place] 00 e Sulfate) Aspirin No Notes: Memoria 3-04 Take with l 00:11: food. [place]n 00 Morphine No Notes: Memoria 3-04 (Same l 00:11: as:MORPhin [place] 00 e Sulfate) Aspirin No Notes: Memoria 3-04 Take with l 00:11: food. [place] 00 Morphine No Notes: Memoria 3-04 (Same l 00:11: as:MORPhin [place] 00 e Sulfate) Aspirin No Notes: Memoria 3-04 Take with l 00:11: food. [place] 00 Morphine No Notes: Memoria 3-04 (Same l 00:11: as:MORPhin [place] 00 e Sulfate) Aspirin No Notes: Memoria 3-04 Take with l 00:11: food. [place] 00 Morphine No Notes: Memoria 3-04 (Same l 00:11: as:MORPhin [place] 00 e Sulfate) Aspirin No Notes: Memoria 3-04 Take with l 00:11: food. [place] 00 Morphine No Notes: Memoria 3-04 (Same l 00:11: as:MORPhin [place] 00 e Sulfate) Aspirin No Notes: Memoria 3-04 Take with l 00:11: food. [place] 00 Morphine No Notes: Memoria 3-04 (Same l 00:11: as:MORPhin [place] 00 e Sulfate) Aspirin 2019-0 No Notes: Memoria 3-04 Take with l 00:11: food. [place] 00 Morphine 2019-0 No Notes: Memoria 3-04 (Same l 00:11: as:MORPhin [place] 00 e Sulfate) Aspirin 2019-0 No Notes: Memoria 3-04 Take with l 00:11: food. Vaughn Morphine 2020-0 No Notes: Memoria 3-04 (Same l 00:11: as:MORPhin [place] 00 e Sulfate) Aspirin 2019-0 No Notes: Memoria 3-04 Take with l 00:11: food. [place]n Morphine 2019-0 No Notes: Memoria 3-04 (Same l 00:11: as:MORPhin [place] 00 e Sulfate) Aspirin 2019-0 No Notes: Memoria 3-04 Take with l 00:11: food. [place] Morphine 2019-0 No Notes: Memoria 3-04 (Same l 00:11: as:MORPhin [place] 00 e Sulfate) Aspirin 2019-0 No Notes: Memoria 3-04 Take with l 00:11: food. [place] Morphine 2019-0 No Notes: Memoria 3-04 (Same l 00:11: as:MORPhin [place]n 00 e Sulfate) Aspirin 2019-0 No Notes: Memoria 3-04 Take with l 00:11: food. [place] Morphine 2019-0 No Notes: Memoria 3-04 (Same l 00:11: as:MORPhin [place] 00 e Sulfate) Aspirin 2019-0 No Notes: Memoria 3-04 Take with l 00:11: food. [place] Morphine 2019-0 No Notes: Memoria 3-04 (Same l 00:11: as:MORPhin [place] 00 e Sulfate) Sodium 2020-0 No 1,000 mL, Memori a Chloride 3-03 Infuse l 0.9% 23:10: Over: 1 Vaughn (Bolus) IV 00 hr, Route: IV, ONCE, Priority: STAT, Dosing Weight 110.5 kg, Start date: 11/30/19 17:10:00 [employer], Stop date: 11/30/19 17:10:00 [employer] Sodium 2020-0 No 1,000 mL, Memori a Chloride 3-03 Infuse l 0.9% 23:10: Over: 1 Vaughn (Bolus) IV 00 hr, Route: IV, ONCE, Priority: STAT, Dosing Weight 110.5 kg, Start date: 11/30/19 17:10:00 [employer], Stop date: 11/30/19 17:10:00 [employer] Sodium 2020-0 No 1,000 mL, Memori a Chloride 3-03 Infuse l 0.9% 23:10: Over: 1 [place] (Bolus) IV 00 hr, Route: IV, ONCE, Priority: STAT, Dosing Weight 110.5 kg, Start date: 11/30/19 17:10:00 [employer], Stop date: 11/30/19 17:10:00 [employer] Sodium 2020-0 No 1,000 mL, Memori a Chloride 3-03 Infuse l 0.9% 23:10: Over: 1 [place] ([place]) IV 00 hr, Route: IV, ONCE, Priority: STAT, Dosing Weight 110.5 kg, Start date: 11/30/19 17:10:00 [employer], Stop date: 11/30/19 17:10:00 [employer] Sodium 2020-0 No 1,000 mL, Memori a Chloride 3-03 Infuse l 0.9% 23:10: Over: 1 [place] ([place]) IV 00 hr, Route: IV, ONCE, Priority: STAT, Dosing Weight 110.5 kg, Start date: 11/30/19 17:10:00 [employer], Stop date: 11/30/19 17:10:00 [employer] Sodium 2020-0 No 1,000 mL, Memori a Chloride 3-03 Infuse l 0.9% 23:10: Over: 1 [place] ([place]) IV 00 hr, Route: IV, ONCE, Priority: STAT, Dosing Weight 110.5 kg, Start date: 11/30/19 17:10:00 [employer], Stop date: 11/30/19 17:10:00 [employer] Sodium 2020-0 No 1,000 mL, Mem[facility] a Chloride 3-03 Infuse l 0.9% 23:10: Over: 1 [place] ([place]) IV 00 hr, Route: IV, ONCE, Priority: STAT, Dosing Weight 110.5 kg, Start date: 11/30/19 17:10:00 [employer], Stop date: 11/30/19 17:10:00 [employer] Sodium 2020-0 No 1,000 mL, Mem[facility] a Chloride 3-03 Infuse l 0.9% 23:10: Over: 1 [place] ([place]) IV 00 hr, Route: IV, ONCE, Priority: STAT, Dosing Weight 110.5 kg, Start date: 11/30/19 17:10:00 [employer], Stop date: 11/30/19 17:10:00 [employer] Sodium 2020-0 No 1,000 mL, Mem[facility] a Chloride 3-03 Infuse l 0.9% 23:10: Over: 1 [place] ([place]) IV 00 hr, Route: IV, ONCE, Priority: STAT, Dosing Weight 110.5 kg, Start date: 11/30/19 17:10:00 [employer], Stop date: 11/30/19 17:10:00 [employer] Sodium 2020-0 No 1,000 mL, Mem[facility] a Chloride 3-03 Infuse l 0.9% 23:10: Over: 1 [place] ([place]) IV 00 hr, Route: IV, ONCE, Priority: STAT, Dosing Weight 110.5 kg, Start date: 11/30/19 17:10:00 [employer], Stop date: 11/30/19 17:10:00 [employer] Sodium 2020-0 No 1,000 mL, Mem[facility] a Chloride 3-03 Infuse l 0.9% 23:10: Over: 1 [place] ([place]) IV 00 hr, Route: IV, ONCE, Priority: STAT, Dosing Weight 110.5 kg, Start date: 11/30/19 17:10:00 [employer], Stop date: 11/30/19 17:10:00 [employer] Sodium 2020-0 No 1,000 mL, [facility] a Chloride 3-03 Infuse l 0.9% 23:10: Over: 1 [place] ([place]) IV 00 hr, Route: IV, ONCE, Priority: STAT, Dosing Weight 110.5 kg, Start date: 11/30/19 17:10:00 [employer], Stop date: 11/30/19 17:10:00 [employer] Sodium 2020-0 No 1,000 mL, [facility] a Chloride 3-03 Infuse l 0.9% 23:10: Over: 1 [place] ([place]) IV 00 hr, Route: IV, ONCE, Priority: STAT, Dosing Weight 110.5 kg, Start date: 11/30/19 17:10:00 [employer], Stop date: 11/30/19 17:10:00 [employer] Sodium 2020-0 No 1,000 mL, [facility] a Chloride 3-03 Infuse l 0.9% 23:10: Over: 1 [place] (Bolus) IV 00 hr, Route: IV, ONCE, Priority: STAT, Dosing Weight 110.5 kg, Start date: 11/30/19 17:10:00 [employer], Stop date: 11/30/19 17:10:00 [employer] Sodium 2020-0 No 1,000 mL, [facility] Chloride 3-03 Infuse l 0.9% 23:10: Over: 1 [place] (Bolus) IV 00 hr, Route: IV, ONCE, Priority: STAT, Dosing Weight 110.5 kg, Start date: 11/30/19 17:10:00 [employer], Stop date: 11/30/19 17:10:00 [employer] fluticasone 2020-0 Yes [id number] 1{puff} Inhale 1 [facility] furoate-evan 2-28 Puff ity of anterol 00:00: daily. [address]) Branch 100-25 mcg/dose DsDv fluticasone 2020-0 Yes [id number] 1{puff} Inhale 1 [facility] furoate-evan 2-28 Puff ity of anterol 00:00: daily. [address]) Branch 100-25 mcg/dose DsDv fluticasone 2020-0 Yes [id number] 1{puff} Inhale 1 Univers furoate-evan 2-28 Puff ity of anterol 00:00: daily. [address]) Branch 100-25 mcg/dose DsDv fluticasone 2020-0 Yes [id number] 1{puff} Inhale 1 Univers furoate-evan 2-28 Puff ity of anterol 00:00: daily. [place] ([address]) Branch 100-25 mcg/dose DsDv fluticasone 2020-0 Yes [id number] 1{puff} Inhale 1 Univers furoate-evan 2-28 Puff ity of anterol 00:00: daily. [place] ([address]) Branch 100-25 mcg/dose DsDv fluticasone 2020-0 Yes [id number] 1{puff} Inhale 1 Univers furoate-evan 2-28 Puff ity of anterol 00:00: daily. [place] ([facility] 00 [facility]) Branch 100-25 mcg/dose DsDv fluticasone 2020-0 Yes [id number] 1{puff} Inhale 1 Univers furoate-evan 2-28 Puff ity of anterol 00:00: daily. [place] ([facility] 00 [facility]) Branch 100-25 mcg/dose DsDv fluticasone 2020-0 Yes [id number] 1{puff} Inhale 1 Univers furoate-evan 2-28 Puff ity of anterol 00:00: daily. [place] ([facility] 00 [facility]) Branch 100-25 mcg/dose DsDv fluticasone 2020-0 2022- No [id number] 1{puff} Inhale 1 Univers furoate-evan 2-28 11-11 Puff ity of anterol 00:00: 00:00 daily. [place] ([facility] 00 :00 [facility]) Branch 100-25 mcg/dose DsDv levalbutero 2018-09 Yes [id number] 1.25mg Inhale Univers l 1.25 mg/3 2-23 1.25 mg ity o f mL 00:00: every 8 [place] nebulizer 00 (eight) Medical solution hours as Branch needed for Wheezing or Shortness of Breath. Nebulizer & 2018-09 Yes [id number] Use as Univers Compressor 2-23 directed ity o f For Neb 00:00: [place] [facility] levalbutero 2018-09 Yes [id number] 1.25mg Inhale Univers l 1.25 mg/3 2-23 1.25 mg ity o f mL 00:00: every 8 [place] nebulizer 00 (eight) Medical solution hours as Branch needed for Wheezing or Shortness of Breath. Nebulizer & 2018-09 Yes [id number] Use as Univers Compressor 2-23 directed ity o f For Neb 00:00: [place] [facility] levalbutero 2018-09 Yes [id number] 1.25mg Inhale Univers l 1.25 mg/3 2-23 1.25 mg ity o f mL 00:00: every 8 [place] nebulizer 00 (eight) Medical solution hours as Branch needed for Wheezing or Shortness of Breath. Nebulizer & 2018-09 Yes [id number] Use as Univers Compressor 2-23 directed ity o f For Neb 00:00: [place] [facility] levalbutero 2018-09 Yes [id number] 1.25mg Inhale Univers l 1.25 mg/3 2-23 1.25 mg ity o f mL 00:00: every 8 [place] nebulizer 00 (eight) Medical solution hours as Branch needed for Wheezing or Shortness of Breath. Nebulizer & 2018-09 Yes [id number] Use as Univers Compressor 2-23 directed ity o f For Neb 00:00: [place] [facility] levalbutero 2018-09 Yes [id number] 1.25mg Inhale Univers l 1.25 mg/3 2-23 1.25 mg ity o f mL 00:00: every 8 [place] nebulizer 00 (eight) Medical solution hours as Branch needed for Wheezing or Shortness of Breath. Nebulizer & 2018-09 Yes [id number] Use as Univers Compressor 2-23 directed ity o f For Neb 00:00: Medical Branch levalbutero 2018-09 Yes [id number] 1.25mg Inhale Univers l 1.25 mg/3 2-23 1.25 mg ity o f mL 00:00: every 8 [place] nebulizer 00 (eight) Medical solution hours as Branch needed for Wheezing or Shortness of Breath. Nebulizer & 2018-09 Yes [id number] Use as Univers Compressor 2-23 directed ity o f For Neb 00:00: Medical Branch levalbutero 2018-09 Yes [id number] 1.25mg Inhale Univers l 1.25 mg/3 2-23 1.25 mg ity o f mL 00:00: every 8 [place] nebulizer 00 (eight) Medical solution hours as Branch needed for Wheezing or Shortness of Breath. Nebulizer & 2018-09 Yes [id number] Use as Univers Compressor 2-23 directed ity o f For Neb 00:00: Medical Branch levalbutero 2018-09 Yes [id number] 1.25mg Inhale Univers l 1.25 mg/3 2-23 1.25 mg ity o f mL 00:00: every 8 [place] nebulizer 00 (eight) Medical solution hours as Branch needed for Wheezing or Shortness of Breath. Nebulizer & 2018-09 Yes [id number] Use as Univers Compressor 2-23 directed ity o f For Neb 00:00: [place] [facility] levalbutero 2018-09 Yes [id number] 1.25mg Inhale Univers l 1.25 mg/3 2-23 1.25 mg ity o f mL 00:00: every 8 [place] nebulizer 00 (eight) Medical solution hours as Branch needed for Wheezing or Shortness of Breath. Nebulizer & 2018-09 Yes [id number] Use as Univers Compressor 2-23 directed ity o f For Neb 00:00: [place] [facility] levalbutero 2018-09 Yes [id number] 1.25mg Inhale Univers l 1.25 mg/3 2-23 1.25 mg ity o f mL 00:00: every 8 [place] nebulizer 00 (eight) Medical solution hours as Branch needed for Wheezing or Shortness of Breath. Nebulizer & 2018-09 Yes [id number] Use as Univers Compressor 2-23 directed ity o f For Neb 00:00: Medical Branch levalbutero 2018-09 Yes [id number] 1.25mg Inhale Univers l 1.25 mg/3 2-23 1.25 mg ity o f mL 00:00: every 8 [place] nebulizer 00 (eight) Medical solution hours as Branch needed for Wheezing or Shortness of Breath. Nebulizer & 2018-09 Yes [id number] Use as Univers Compressor 2-23 directed ity o f For Neb 00:00: Medical Branch levalbutero 2018-09 Yes [id number] 1.25mg Inhale Univers l 1.25 mg/3 2-23 1.25 mg ity o f mL 00:00: every 8 [place] nebulizer 00 (eight) Medical solution hours as Branch needed for Wheezing or Shortness of Breath. Nebulizer & 2018-09 Yes [id number] Use as Univers Compressor 2-23 directed ity o f For Neb 00:00: Medical Branch levalbutero 2018-09 Yes [id number] 1.25mg Inhale Univers l 1.25 mg/3 2-23 1.25 mg ity o f mL 00:00: every 8 [place] nebulizer 00 (eight) Medical solution hours as Branch needed for Wheezing or Shortness of Breath. Nebulizer & 2018-09 Yes [id number] Use as Univers Compressor 2-23 directed ity o f For Neb 00:00: Medical Branch levalbutero 2019- Yes .31mg Inhale Uni vers l 0.31 mg/3 2-20 0.31 mg 3 ity of mL 00:07: (three) [place] nebulizer 07 times Medical solution daily. Branch Venlafaxine 2019- Yes Take by Uni vers 225 mg TR24 2-20 mouth. ity of 00:07: Medical Branch pregabalin 2019- Yes 50mg Take 50 mg U nivers 50 mg 2-20 by mouth 3 ity of capsule 00:07: (three) [place] 07 times Medical daily. Branch lurasidone 2018- Yes Take by [facility] ers (LATUDA) 20 2-20 mouth. ity of mg tablet 00:07: Medical Branch doxepin 10 2018- Yes 10mg Take 10 mg U nivers mg capsule 2-20 by mouth. ity of 00:07: Medical Branch levalbutero 2018- Yes .31mg Inhale Uni vers l 0.31 mg/3 2-20 0.31 mg 3 ity of mL 00:07: (three) [place] nebulizer 07 times Medical solution daily. Branch Venlafaxine 2018- Yes Take by Uni vers 225 mg TR24 2-20 mouth. ity of 00:07: Medical Branch pregabalin 2019- Yes 50mg Take 50 mg U nivers 50 mg 2-20 by mouth 3 ity of capsule 00:07: (three) [place] 07 times Medical daily. Branch lurasidone 2019- Yes Take by [facility] ers (LATUDA) 20 2-20 mouth. ity of mg tablet 00:07: Medical Branch doxepin 10 2018- Yes 10mg Take 10 mg U nivers mg capsule 2-20 by mouth. ity of 00:07: Medical Branch levalbutero 2019- Yes .31mg Inhale Uni vers l 0.31 mg/3 2-20 0.31 mg 3 ity of mL 00:07: (three) [place] nebulizer 07 times Medical solution daily. Branch Venlafaxine 2019- Yes Take by Uni vers 225 mg TR24 2-20 mouth. ity of 00:07: Medical Branch pregabalin 2019- Yes 50mg Take 50 mg U nivers 50 mg 2-20 by mouth 3 ity of capsule 00:07: (three) [place] [address] times Medical daily. Branch lurasidone 2018- Yes Take by [facility] ers (LATUDA) 20 2-20 mouth. ity of mg tablet 00:07: [place] [address] Medical Branch doxepin 10 2018-09 Yes 10mg Take 10 mg U nivers mg capsule 2-20 by mouth. ity of 00:07: [place] [address] Medical Branch levalbutero 2018- Yes .31mg Inhale Uni vers l 0.31 mg/3 2-20 0.31 mg 3 ity of mL 00:07: (three) [place] nebulizer 07 times Medical solution daily. Branch Venlafaxine 2018- Yes Take by Uni vers 225 mg TR24 2-20 mouth. ity of 00:07: [place] [address] Medical Branch pregabalin 2018- Yes 50mg Take 50 mg U nivers 50 mg 2-20 by mouth 3 ity of capsule 00:07: (three) [place] [address] times Medical daily. Branch lurasidone 2018- Yes Take by [facility] ers (LATUDA) 20 2-20 mouth. ity of mg tablet 00:07: [place] [address] Medical Branch doxepin 10 2018-09 Yes 10mg Take 10 mg U nivers mg capsule 2-20 by mouth. ity of 00:07: [place] [address] Medical Branch traMADol 2018- Yes [id number] 50mg Take 1 Univers (ULTRAM) 50 2-19 [id number] tablet by i ty of mg tablet 00:00: mouth [place] 00 every 8 Medical (eight) Branch hours as needed for Pain (scale 4-6). traMADol 2018-09 Yes [id number] 50mg Take 1 Univers (ULTRAM) 50 2-19 [id number] tablet by i ty of mg tablet 00:00: mouth [place] 00 every 8 Medical (eight) Branch hours as needed for Pain (scale 4-6). traMADol 2018- Yes [id number] 50mg Take 1 Univers (ULTRAM) 50 2-19 [id number] tablet by i ty of mg tablet 00:00: mouth [place] 00 every 8 Medical (eight) Branch hours as needed for Pain (scale 4-6). traMADol 2018-09 Yes [id number] 50mg Take 1 Univers (ULTRAM) 50 2-19 [id number] tablet by i ty of mg tablet 00:00: mouth [place] 00 every 8 Medical (eight) Branch hours as needed for Pain (scale 4-6). traMADol 2018-09- No [id number] 50mg Take 1 Univers (ULTRAM) 50 11-17 [id number] tablet by ity of mg tablet 00:00: 00:00 mouth [place] 00 :00 every 8 Medical (eight) Branch hours as needed for Pain (scale 4-6). propranolol 2018-09- No 5mg Q.5D Take 5 mg [facility] (INDERAL) 11-[address] 10 MG 00:00: 00:00 (two) [facility] tablet 00 :00 times a l day. propranolol 2018-09- No 5mg Q.5D Take 5 mg [facility] (INDERAL) 11-[address] 10 MG 00:00: 00:00 (two) [facility] tablet 00 :00 times a l day. fluticasone 2018-09- No [id number] 2{puff} Inhale 2 Univers propion-sylvia 15 02-28 Puffs 2 ity of meterol 00:00: 00:00 (two) [place] (ADVAIR 00 :00 times Medical HFA) 230-21 daily. Branch mcg/actuati on inhaler clonazePAM 2018-09 Yes Univers 0.5 mg 1-04 ity of tablet 00:00: [address] clonazePAM 2018-09 Yes Univers 0.5 mg 1-04 ity of tablet 00:00: [address] clonazePAM 2018-09 Yes Univers 0.5 mg 1-04 ity of tablet 00:00: [address] clonazePAM 2018-09 Yes Univers 0.5 mg 1-04 ity of tablet 00:00: [address] clonazePAM 2018-09 Yes Univers 0.5 mg 1-04 ity of tablet 00:00: [address] clonazePAM 2018-09 Yes Univers 0.5 mg 1-04 ity of tablet 00:00: [address] clonazePAM 2018-09 Yes Univers 0.5 mg 1-04 ity of tablet 00:00: [address] clonazePAM 2018-09 Yes Univers 0.5 mg 1-04 ity of tablet 00:00: [address] clonazePAM 2018-09 Yes Univers 0.5 mg 1-04 ity of tablet 00:00: [place] [facility] Branch clonazePAM 2018-09 Yes Univers 0.5 mg 1-04 ity of tablet 00:00: [place] [facility] Branch clonazePAM 2018-09 Yes Univers 0.5 mg 1-04 ity of tablet 00:00: [place] [facility] Branch clonazePAM 2018-09 Yes Univers 0.5 mg 1-04 ity of tablet 00:00: [place] [facility] Branch clonazePAM 2018-09 Yes Univers 0.5 mg 1-04 ity of tablet 00:00: [place] [facility] clonAZEPAM 2018-09 Yes .25mg [id number] Take 0.25 [facility] (KlonoPIN) 1-[id number] 0.5 MG 00:00: 3D mouth 3 Hospita tablet 00 (three) l times a day as needed for anxiety. clonAZEPAM 2018-09 Yes .25mg Q.[id number] Take 0.25 [facility] (KlonoPIN) 1-[id number] 0.5 MG 00:00: 3D mouth 3 Hospita tablet 00 (three) l times a day as needed for anxiety. clonAZEPAM 2018-09 Yes .25mg Q.[id number] Take 0.25 [facility] (KlonoPIN) 1-[id number] 0.5 MG 00:00: 3D mouth 3 [facility]ospita tablet 00 (three) l times a day as needed for anxiety. PROAIR HFA Yes TAKE 2 Unive rs 90 7-31 PUFFS BY ity of mcg/actuati 00:00: MOUTH [place] on inhaler 00 EVERY 4 Medica l HOURS Branch NEEDED DULERA Yes TAKE 2 Univers 200-5 7-31 PUFFS BY ity of mcg/actuati 00:00: MOUTH [place] on inhaler 00 TWICE A Medica l DAY FOR 2 Branch WEEKS THEN DAILY gabapentin Yes TAKE 1 Unive rs 600 mg 7-20 TABLET BY ity of tablet 00:00: MOUTH [place] 00 THREE Medical TIMES A Branch DAY FOR 28 DAY(S) gabapentin Yes TAKE 1 Unive rs 600 mg 7-20 TABLET BY ity of tablet 00:00: MOUTH [place] 00 THREE Medical TIMES A Branch DAY FOR 28 DAY(S) gabapentin Yes TAKE 1 Unive rs 600 mg 7-20 TABLET BY ity of tablet 00:00: MOUTH [place] 00 THREE Medical TIMES A Branch DAY FOR 28 DAY(S) gabapentin 2017- Yes TAKE 1 Unive rs 600 mg 7-20 TABLET BY ity of tablet 00:00: MOUTH [place] 00 THREE Medical TIMES A Branch DAY FOR 28 DAY(S) gabapentin 2017-0 Yes TAKE 1 Unive rs 600 mg 7-20 TABLET BY ity of tablet 00:00: MOUTH [place] 00 THREE Medical TIMES A Branch DAY FOR 28 DAY(S) gabapentin 2017-0 Yes TAKE 1 Unive rs 600 mg 7-20 TABLET BY ity of tablet 00:00: MOUTH [place] 00 THREE Medical TIMES A Branch DAY FOR 28 DAY(S) gabapentin 2017- Yes TAKE 1 Unive rs 600 mg 7-20 TABLET BY ity of tablet 00:00: MOUTH [place] 00 THREE Medical TIMES A Branch DAY FOR 28 DAY(S) gabapentin 2017- Yes TAKE 1 Unive rs 600 mg 7-20 TABLET BY ity of tablet 00:00: MOUTH [place] 00 THREE Medical TIMES A Branch DAY FOR 28 DAY(S) gabapentin 2017-0 Yes TAKE 1 Unive rs 600 mg 7-20 TABLET BY ity of tablet 00:00: MOUTH [place] 00 THREE Medical TIMES A Branch DAY FOR 28 DAY(S) gabapentin 2017-2021- No TAKE 1 Univ ers 600 mg 7-20 11-11 TABLET BY ity of tablet 00:00: 00:00 MOUTH [place] 00 :00 THREE Medical TIMES A Branch DAY FOR 28 DAY(S) Lactated No 1,000 mL, Danie brielle Ringers 01-03 Rate: 125 l 1,000 mL 15:14: ml/hr, Infuse over: 8 hr, Route: IV, Dosing Weight 108.636 kg, Total Volume: 1,000, Start date: 01/03/17 10:14:00 CDT, Duration: 30 day, Stop date: 02/02/17 10:13:00 CDT Promethazin No Notes: Do Jj barrera 01-03 not give l 15:14: IV push. (Same as: Phenergan) Hydromorpho No Notes: Danie brielle ne 01-03 Same as l 15:14: Dilaudid Ondansetron No Notes: Danie brielle 4-07 (Same as: l 15:14: Zofran) [place] 00 MEDICATION WASTE Product Size: 4 mg Product Wasted: ___ mg Acetaminoph No Notes: Do Jj emoria en 325 MG / 4-07 not exceed l Hydrocodone 15:14: 4gm/day of [place] Bitartrate 00 acetaminop 10 MG Oral hen. (Same Tablet as: [place] 325/10) Lactated No 1,000 mL, Danie brielle Ringers -07 Rate: 125 l 1,000 mL 15:14: ml/hr, [place] 00 Infuse over: 8 hr, Route: IV, Dosing Weight 108.636 kg, Total Volume: 1,000, Start date: 01/03/17 10:14:00 CDT, Duration: 30 day, Stop date: 02/02/17 10:13:00 CDT Promethazin No Notes: Do Jj emoria e -07 not give l 15:14: IV push. [place] (Same as: Phenergan) Hydromorpho No Notes: Danie brielle ne -07 Same as l 15:14: Dilaudid [place] 00 Ondansetron No Notes: Danie brielle 4-07 (Same as: l 15:14: Zofran) [place] 00 MEDICATION WASTE Product Size: 4 mg Product Wasted: ___ mg Acetaminoph No Notes: Do Jj emoria en 325 MG / 01-03 not exceed l Hydrocodone 15:14: 4gm/day of [place] Bitartrate 00 acetaminop 10 MG Oral hen. (Same Tablet as: [place] 325/10) Lactated No 1,000 mL, Danie brielle Ringers 4-07 Rate: 125 l 1,000 mL 15:14: ml/hr, [place] 00 Infuse over: 8 hr, Route: IV, Dosing Weight 108.636 kg, Total Volume: 1,000, Start date: 01/03/17 10:14:00 CDT, Duration: 30 day, Stop date: 02/02/17 10:13:00 CDT Promethazin No Notes: Do Jj emoria e 4-07 not give l 15:14: IV push. [place] 00 (Same as: Phenergan) Hydromorpho No Notes: Danie brielle ne - Same as l 15:14: Dilaudid [place] Ondansetron No Notes: Danie brielle - (Same as: l 15:14: Zofran) [place] 00 MEDICATION WASTE Product Size: 4 mg Product Wasted: ___ mg Acetaminoph No Notes: Do M emoria en 325 MG / 01-03 not exceed l Hydrocodone 15:14: 4gm/day of [place] Bitartrate 00 acetaminop 10 MG Oral hen. (Same Tablet as: [place] 325/10) Lactated No 1,000 mL, Danie brielle Ringers 01-03 Rate: 125 l 1,000 mL 15:14: ml/hr, [place] 00 Infuse over: 8 hr, Route: IV, Dosing Weight 108.636 kg, Total Volume: 1,000, Start date: 01/03/17 10:14:00 CDT, Duration: 30 day, Stop date: 02/02/17 10:13:00 CDT Promethazin No Notes: Do M emoria e 01-03 not give l 15:14: IV push. [place] 00 (Same as: Phenergan) Hydromorpho No Notes: Danie brielle ne 01-03 Same as l 15:14: Dilaudid [place] Ondansetron No Notes: Danie brielle 01-03 (Same as: l 15:14: Zofran) [place] 00 MEDICATION WASTE Product Size: 4 mg Product Wasted: ___ mg Acetaminoph No Notes: Do M emoria en 325 MG / 01-03 not exceed l Hydrocodone 15:14: 4gm/day of [place] Bitartrate 00 acetaminop 10 MG Oral hen. (Same Tablet as: [place] 325/10) Lactated No 1,000 mL, Danie brielle Ringers 01-03 Rate: 125 l 1,000 mL 15:14: ml/hr, [place] 00 Infuse over: 8 hr, Route: IV, Dosing Weight 108.636 kg, Total Volume: 1,000, Start date: 01/03/17 10:14:00 CDT, Duration: 30 day, Stop date: 02/02/17 10:13:00 CDT Promethazin No Notes: Do Jj emoria e 4-07 not give l 15:14: IV push. [place] 00 (Same as: Phenergan) Hydromorpho No Notes: Danie brielle ne -07 Same as l 15:14: Dilaudid [place] Ondansetron No Notes: Danie brielle 4- (Same as: l 15:14: Zofran) [place] 00 MEDICATION WASTE Product Size: 4 mg Product Wasted: ___ mg Acetaminoph No Notes: Do M emoria en 325 MG / 01-03 not exceed l Hydrocodone 15:14: 4gm/day of [place] Bitartrate 00 acetaminop 10 MG Oral hen. (Same Tablet as: [place] 325/10) Lactated No 1,000 mL, Danie brielle Ringers 01-03 Rate: 125 l 1,000 mL 15:14: ml/hr, [place] 00 Infuse over: 8 hr, Route: IV, Dosing Weight 108.636 kg, Total Volume: 1,000, Start date: 01/03/17 10:14:00 CDT, Duration: 30 day, Stop date: 02/02/17 10:13:00 CDT Promethazin No Notes: Do Jj emoria e 4-07 not give l 15:14: IV push. [place] 00 (Same as: Phenergan) Hydromorpho No Notes: Danie brielle ne -07 Same as l 15:14: Dilaudid [place] 00 Ondansetron No Notes: Danie brielle 4-07 (Same as: l 15:14: Zofran) [place] 00 MEDICATION WASTE Product Size: 4 mg Product Wasted: ___ mg Acetaminoph No Notes: Do M emoria en 325 MG / 01-03 not exceed l Hydrocodone 15:14: 4gm/day of [place] Bitartrate 00 acetaminop 10 MG Oral hen. (Same Tablet as: [place] 325/10) Lactated No 1,000 mL, Danie brielle Ringers 01-03 Rate: 125 l 1,000 mL 15:14: ml/hr, [place] 00 Infuse over: 8 hr, Route: IV, Dosing Weight 108.636 kg, Total Volume: 1,000, Start date: 01/03/17 10:14:00 CDT, Duration: 30 day, Stop date: 02/02/17 10:13:00 CDT Promethazin No Notes: Do M emoria e 01-03 not give l 15:14: IV push. [place] 00 (Same as: Phenergan) Hydromorpho No Notes: Danie brielle ne 01-03 Same as l 15:14: Dilaudid [place] Ondansetron No Notes: Danie brielle 01-03 (Same as: l 15:14: Zofran) [place] 00 MEDICATION WASTE Product Size: 4 mg Product Wasted: ___ mg Acetaminoph No Notes: Do M emoria en 325 MG / 01-03 not exceed l Hydrocodone 15:14: 4gm/day of [place] Bitartrate 00 acetaminop 10 MG Oral hen. (Same Tablet as: [place] 325/10) Lactated No 1,000 mL, Danie brielle Ringers 01-03 Rate: 125 l 1,000 mL 15:14: ml/hr, [place] 00 Infuse over: 8 hr, Route: IV, Dosing Weight 108.636 kg, Total Volume: 1,000, Start date: 01/03/17 10:14:00 CDT, Duration: 30 day, Stop date: 02/02/17 10:13:00 CDT Promethazin No Notes: Do M emoria e 01-03 not give l 15:14: IV push. [place] 00 (Same as: Phenergan) Hydromorpho No Notes: Danie brielle ne 01-03 Same as l 15:14: Dilaudid [place] Ondansetron No Notes: Danie brielle 01-03 (Same as: l 15:14: Zofran) [place] 00 MEDICATION WASTE Product Size: 4 mg Product Wasted: ___ mg Acetaminoph No Notes: Do M emoria en 325 MG / 01-03 not exceed l Hydrocodone 15:14: 4gm/day of [place] Bitartrate 00 acetaminop 10 MG Oral hen. (Same Tablet as: [place] 325/10) Lactated No 1,000 mL, Danie brielle Ringers 01-03 Rate: 125 l 1,000 mL 15:14: ml/hr, [place] 00 Infuse over: 8 hr, Route: IV, Dosing Weight 108.636 kg, Total Volume: 1,000, Start date: 01/03/17 10:14:00 CDT, Duration: 30 day, Stop date: 02/02/17 10:13:00 CDT Promethazin No Notes: Do M emoria e 01-03 not give l 15:14: IV push. [place] 00 (Same as: Phenergan) Hydromorpho No Notes: Danie brielle ne 01-03 Same as l 15:14: Dilaudid [place] 00 Ondansetron No Notes: Danie brielle -07 (Same as: l 15:14: Zofran) [place] 00 MEDICATION WASTE Product Size: 4 mg Product Wasted: ___ mg Acetaminoph No Notes: Do M emoria en 325 MG / 01-03 not exceed l Hydrocodone 15:14: 4gm/day of [place] Bitartrate 00 acetaminop 10 MG Oral hen. (Same Tablet as: [place] 325/10) Lactated No 1,000 mL, Danie brielle Ringers 07 Rate: 125 l 1,000 mL 15:14: ml/hr, [place] 00 Infuse over: 8 hr, Route: IV, Dosing Weight 108.636 kg, Total Volume: 1,000, Start date: 01/03/17 10:14:00 CDT, Duration: 30 day, Stop date: 02/02/17 10:13:00 CDT Promethazin No Notes: Do M emoria e 07 not give l 15:14: IV push. [place] 00 (Same as: Phenergan) Hydromorpho No Notes: Dnaie brielle ne 4-07 Same as l 15:14: Dilaudid [place] 00 Ondansetron No Notes: Danie brielle 4-07 (Same as: l 15:14: Zofran) [place] 00 MEDICATION WASTE Product Size: 4 mg Product Wasted: ___ mg Acetaminoph No Notes: Do M emoria en 325 MG / 4-07 not exceed l Hydrocodone 15:14: 4gm/day of [place] Bitartrate 00 acetaminop 10 MG Oral hen. (Same Tablet as: [place] 325/10) Lactated No 1,000 mL, Danie brielle Ringers 01-03 Rate: 125 l 1,000 mL 15:14: ml/hr, [place] 00 Infuse over: 8 hr, Route: IV, Dosing Weight 108.636 kg, Total Volume: 1,000, Start date: 01/03/17 10:14:00 CDT, Duration: 30 day, Stop date: 02/02/17 10:13:00 CDT Promethazin No Notes: Do M emoria e 4-07 not give l 15:14: IV push. [place] 00 (Same as: Phenergan) Hydromorpho No Notes: Danie brielle ne -07 Same as l 15:14: Dilaudid [place] Ondansetron No Notes: Danie brielle 4-07 (Same as: l 15:14: Zofran) [place] 00 MEDICATION WASTE Product Size: 4 mg Product Wasted: ___ mg Acetaminoph No Notes: Do M emoria en 325 MG / 07 not exceed l Hydrocodone 15:14: 4gm/day of [place] Bitartrate 00 acetaminop 10 MG Oral hen. (Same Tablet as: [place] 325/10) Lactated No 1,000 mL, Danie brielle Ringers 07 Rate: 125 l 1,000 mL 15:14: ml/hr, [place] 00 Infuse over: 8 hr, Route: IV, Dosing Weight 108.636 kg, Total Volume: 1,000, Start date: 01/03/17 10:14:00 CDT, Duration: 30 day, Stop date: 02/02/17 10:13:00 CDT Promethazin No Notes: Do M emoria e 4-07 not give l 15:14: IV push. [place] (Same as: Phenergan) Hydromorpho No Notes: Danie brielle ne - Same as l 15:14: Dilaudid [place] Ondansetron No Notes: Danie brielle - (Same as: l 15:14: Zofran) [place] 00 MEDICATION WASTE Product Size: 4 mg Product Wasted: ___ mg Acetaminoph No Notes: Do M emoria en 325 MG / 01-03 not exceed l Hydrocodone 15:14: 4gm/day of [place] Bitartrate 00 acetaminop 10 MG Oral hen. (Same Tablet as: [place] 325/10) Lactated No 1,000 mL, Danie brielle Ringers 01-03 Rate: 125 l 1,000 mL 15:14: ml/hr, [place] 00 Infuse over: 8 hr, Route: IV, Dosing Weight 108.636 kg, Total Volume: 1,000, Start date: 01/03/17 10:14:00 CDT, Duration: 30 day, Stop date: 02/02/17 10:13:00 CDT Promethazin No Notes: Do Jj emoria e 4-07 not give l 15:14: IV push. Vaughn (Same as: Phenergan) Hydromorpho No Notes: Danie brielle ne - Same as l 15:14: Dilaudid [place] Ondansetron No Notes: Danie brielle -07 (Same as: l 15:14: Zofran) [place] 00 MEDICATION WASTE Product Size: 4 mg Product Wasted: ___ mg Acetaminoph No Notes: Do M emoria en 325 MG / 01-03 not exceed l Hydrocodone 15:14: 4gm/day of Vaughn Bitartrate 00 acetaminop 10 MG Oral hen. (Same Tablet as: Anthony 325/10) Lactated No 1,000 mL, Danie brielle Ringers 01-03 Rate: 125 l 1,000 mL 15:14: ml/hr, [place] 00 Infuse over: 8 hr, Route: IV, Dosing Weight 108.636 kg, Total Volume: 1,000, Start date: 01/03/17 10:14:00 CDT, Duration: 30 day, Stop date: 02/02/17 10:13:00 CDT Promethazin No Notes: Do M emoria e - not give l 15:14: IV push. [place] 00 (Same as: Phenergan) Hydromorpho No Notes: Danie brielle ne 01-03 Same as l 15:14: Dilaudid [place] Ondansetron No Notes: Danie brielle 01-03 (Same as: l 15:14: Zofran) [place] 00 MEDICATION WASTE Product Size: 4 mg Product Wasted: ___ mg Acetaminoph No Notes: Do M emoria en 325 MG / 01-03 not exceed l Hydrocodone 15:14: 4gm/day of [place] Bitartrate 00 acetaminop 10 MG Oral hen. (Same Tablet as: Anthony 325/10) Lactated No 1,000 mL, Danie brielle Ringers 01-03 Rate: 125 l 1,000 mL 15:14: ml/hr, [place] 00 Infuse over: 8 hr, Route: IV, Dosing Weight 108.636 kg, Total Volume: 1,000, Start date: 01/03/17 10:14:00 CDT, Duration: 30 day, Stop date: 02/02/17 10:13:00 CDT Promethazin No Notes: Do M emoria e - not give l 15:14: IV push. [place] 00 (Same as: Phenergan) Hydromorpho No Notes: Danie brielle ne 01-03 Same as l 15:14: Dilaudid [place] Ondansetron No Notes: Danie brielle 07 (Same as: l 15:14: Zofran) [place] 00 MEDICATION WASTE Product Size: 4 mg Product Wasted: ___ mg Acetaminoph 2017-0 No Notes: Do M emoria en 325 MG / 01-03 not exceed l Hydrocodone 15:14: 4gm/day of [place] Bitartrate 00 acetaminop 10 MG Oral hen. (Same Tablet as: Anthony 325/10) Lactated 2017-0 No 1,000 mL, Danie brielle Ringers 4-07 Rate: 125 l 1,000 mL 14:15: ml/hr, [place] 00 Infuse over: 8 hr, Route: IV, Dosing Weight 108.636 kg, Total Volume: 1,000, Start date: 01/03/17 9:15:00 CDT, Duration: 30 day, Stop date: 02/02/17 9:14:00 CDT Lactated 2017-0 No 1,000 mL, Danie brielle Ringers 4- Rate: 125 l 1,000 mL 14:15: ml/hr, [place] 00 Infuse over: 8 hr, Route: IV, Dosing Weight 108.636 kg, Total Volume: 1,000, Start date: 01/03/17 9:15:00 CDT, Duration: 30 day, Stop date: 02/02/17 9:14:00 CDT Lactated 2017-0 No 1,000 mL, Danie brielle Ringers -07 Rate: 125 l 1,000 mL 14:15: ml/hr, [place] 00 Infuse over: 8 hr, Route: IV, Dosing Weight 108.636 kg, Total Volume: 1,000, Start date: 01/03/17 9:15:00 CDT, Duration: 30 day, Stop date: 02/02/17 9:14:00 CDT Lactated 2017-0 No 1,000 mL, Danie brielle Ringers 4-07 Rate: 125 l 1,000 mL 14:15: ml/hr, [place] 00 Infuse over: 8 hr, Route: IV, Dosing Weight 108.636 kg, Total Volume: 1,000, Start date: 01/03/17 9:15:00 CDT, Duration: 30 day, Stop date: 02/02/17 9:14:00 CDT Lactated 2017-0 No 1,000 mL, Danie brielle Ringers 4-07 Rate: 125 l 1,000 mL 14:15: ml/hr, [place] 00 Infuse over: 8 hr, Route: IV, Dosing Weight 108.636 kg, Total Volume: 1,000, Start date: 01/03/17 9:15:00 CDT, Duration: 30 day, Stop date: 02/02/17 9:14:00 CDT Lactated 2017-0 No 1,000 mL, Danie brielle Ringers 4-07 Rate: 125 l 1,000 mL 14:15: ml/hr, [place] 00 Infuse over: 8 hr, Route: IV, Dosing Weight 108.636 kg, Total Volume: 1,000, Start date: 01/03/17 9:15:00 CDT, Duration: 30 day, Stop date: 02/02/17 9:14:00 CDT Lactated 2017-0 No 1,000 mL, Danie brielle Ringers 4-07 Rate: 125 l 1,000 mL 14:15: ml/hr, [place] 00 Infuse over: 8 hr, Route: IV, Dosing Weight 108.636 kg, Total Volume: 1,000, Start date: 01/03/17 9:15:00 CDT, Duration: 30 day, Stop date: 02/02/17 9:14:00 CDT Lactated 2017-0 No 1,000 mL, Danie brielle Ringers 4-07 Rate: 125 l 1,000 mL 14:15: ml/hr, [place] 00 Infuse over: 8 hr, Route: IV, Dosing Weight 108.636 kg, Total Volume: 1,000, Start date: 01/03/17 9:15:00 CDT, Duration: 30 day, Stop date: 02/02/17 9:14:00 CDT Lactated 2017-0 No 1,000 mL, Danie brielle Ringers 4-07 Rate: 125 l 1,000 mL 14:15: ml/hr, [place] 00 Infuse over: 8 hr, Route: IV, Dosing Weight 108.636 kg, Total Volume: 1,000, Start date: 01/03/17 9:15:00 CDT, Duration: 30 day, Stop date: 02/02/17 9:14:00 CDT Lactated 2017-0 No 1,000 mL, Danie brielle Ringers 4-07 Rate: 125 l 1,000 mL 14:15: ml/hr, [place] 00 Infuse over: 8 hr, Route: IV, Dosing Weight 108.636 kg, Total Volume: 1,000, Start date: 01/03/17 9:15:00 CDT, Duration: 30 day, Stop date: 02/02/17 9:14:00 CDT Lactated 2017-0 No 1,000 mL, Danie brielle Ringers 4-07 Rate: 125 l 1,000 mL 14:15: ml/hr, [place] 00 Infuse over: 8 hr, Route: IV, Dosing Weight 108.636 kg, Total Volume: 1,000, Start date: 01/03/17 9:15:00 CDT, Duration: 30 day, Stop date: 02/02/17 9:14:00 CDT Lactated 2017-0 No 1,000 mL, Danie brielle Ringers 4-07 Rate: 125 l 1,000 mL 14:15: ml/hr, [place] 00 Infuse over: 8 hr, Route: IV, Dosing Weight 108.636 kg, Total Volume: 1,000, Start date: 01/03/17 9:15:00 CDT, Duration: 30 day, Stop date: 02/02/17 9:14:00 CDT Lactated 2017-0 No 1,000 mL, Danie brielle Ringers 4-07 Rate: 125 l 1,000 mL 14:15: ml/hr, [place] 00 Infuse over: 8 hr, Route: IV, Dosing Weight 108.636 kg, Total Volume: 1,000, Start date: 01/03/17 9:15:00 CDT, Duration: 30 day, Stop date: 02/02/17 9:14:00 CDT Lactated 2017-0 No 1,000 mL, Danie brielle Ringers 4-07 Rate: 125 l 1,000 mL 14:15: ml/hr, [place] 00 Infuse over: 8 hr, Route: IV, Dosing Weight 108.636 kg, Total Volume: 1,000, Start date: 01/03/17 9:15:00 CDT, Duration: 30 day, Stop date: 02/02/17 9:14:00 CDT Lactated 2017-0 No 1,000 mL, Danie brielle Ringers 4-07 Rate: 125 l 1,000 mL 14:15: ml/hr, [place] 00 Infuse over: 8 hr, Route: IV, Dosing Weight 108.636 kg, Total Volume: 1,000, Start date: 01/03/17 9:15:00 CDT, Duration: 30 day, Stop date: 02/02/17 9:14:00 CDT Lactated No 1,000 mL, Danie brielle Ringers 3-16 Rate: 125 l 1,000 mL 13:34: ml/hr, Infuse over: 8 hr, Route: IV, Dosing Weight 108.778 kg, Total Volume: 1,000, Start date: 12/12/16 8:34:00 CDT, Duration: 30 day, Stop date: 01/11/17 8:33:00 CDT Acetaminoph No Notes: Do M emoria en 325 MG / 3-16 not exceed l Hydrocodone 13:34: 4gm/day of [place] Bitartrate 00 acetaminop 10 MG Oral hen. (Same Tablet as: Anthony 325/10) Hydromorpho No Notes: Danie brielle ne 3-16 Same as l 13:34: Dilaudid Promethazin No Notes: Do M emoria e 3-16 not give l 13:34: IV push. (Same as: Phenergan) Ondansetron No Notes: Danie brielle 3-16 (Same as: l 13:34: Zofran) MEDICATION WASTE Product Size: 4 mg Product Wasted: ___ mg Lactated No 1,000 mL, Danie brielle Ringers 3-16 Rate: 125 l 1,000 mL 13:34: ml/hr, Infuse over: 8 hr, Route: IV, Dosing Weight 108.778 kg, Total Volume: 1,000, Start date: 12/12/16 8:34:00 CDT, Duration: 30 day, Stop date: 01/11/17 8:33:00 CDT Acetaminoph No Notes: Do M emoria en 325 MG / 3-16 not exceed l Hydrocodone 13:34: 4gm/day of [place] Bitartrate 00 acetaminop 10 MG Oral hen. (Same Tablet as: Anthony 325/10) Hydromorpho No Notes: Danie brielle ne 3-16 Same as l 13:34: Dilaudid [place] 00 Promethazin No Notes: Do M emoria e 3-16 not give l 13:34: IV push. [place] 00 (Same as: Phenergan) Ondansetron No Notes: Danie brielle 3-16 (Same as: l 13:34: Zofran) [place] 00 MEDICATION WASTE Product Size: 4 mg Product Wasted: ___ mg Lactated No 1,000 mL, Danie brielle Ringers 3-16 Rate: 125 l 1,000 mL 13:34: ml/hr, [place] 00 Infuse over: 8 hr, Route: IV, Dosing Weight 108.778 kg, Total Volume: 1,000, Start date: 12/12/16 8:34:00 CDT, Duration: 30 day, Stop date: 01/11/17 8:33:00 CDT Acetaminoph No Notes: Do M emoria en 325 MG / 3-16 not exceed l Hydrocodone 13:34: 4gm/day of [place] Bitartrate 00 acetaminop 10 MG Oral hen. (Same Tablet as: Anthony 325/10) Hydromorpho No Notes: Danie brielle ne 3-16 Same as l 13:34: Dilaudid [place] 00 Promethazin No Notes: Do M emoria e 3-16 not give l 13:34: IV push. [place] 00 (Same as: Phenergan) Ondansetron No Notes: Danie brielle 3-16 (Same as: l 13:34: Zofran) [place] 00 MEDICATION WASTE Product Size: 4 mg Product Wasted: ___ mg Lactated No 1,000 mL, Danie brielle Ringers 3-16 Rate: 125 l 1,000 mL 13:34: ml/hr, [place] 00 Infuse over: 8 hr, Route: IV, Dosing Weight 108.778 kg, Total Volume: 1,000, Start date: 12/12/16 8:34:00 CDT, Duration: 30 day, Stop date: 01/11/17 8:33:00 CDT Acetaminoph No Notes: Do M emoria en 325 MG / 3-16 not exceed l Hydrocodone 13:34: 4gm/day of [place] Bitartrate 00 acetaminop 10 MG Oral hen. (Same Tablet as: Anthony 325/10) Hydromorpho No Notes: Danie brielle ne 3-16 Same as l 13:34: Dilaudid [place] 00 Promethazin No Notes: Do M emoria e 3-16 not give l 13:34: IV push. [place] 00 (Same as: Phenergan) Ondansetron No Notes: Danie brielle 3-16 (Same as: l 13:34: Zofran) [place] 00 MEDICATION WASTE Product Size: 4 mg Product Wasted: ___ mg Lactated No 1,000 mL, Danie brielle Ringers 3-16 Rate: 125 l 1,000 mL 13:34: ml/hr, [place] 00 Infuse over: 8 hr, Route: IV, Dosing Weight 108.778 kg, Total Volume: 1,000, Start date: 12/12/16 8:34:00 CDT, Duration: 30 day, Stop date: 01/11/17 8:33:00 CDT Acetaminoph No Notes: Do M emoria en 325 MG / 3-16 not exceed l Hydrocodone 13:34: 4gm/day of [place] Bitartrate 00 acetaminop 10 MG Oral hen. (Same Tablet as: Anthony 325/10) Hydromorpho No Notes: Danie brielle ne 3-16 Same as l 13:34: Dilaudid [place] 00 Promethazin No Notes: Do M emoria e 3-16 not give l 13:34: IV push. [place] 00 (Same as: Phenergan) Ondansetron No Notes: Danie brielle 3-16 (Same as: l 13:34: Zofran) [place] 00 MEDICATION WASTE Product Size: 4 mg Product Wasted: ___ mg Lactated No 1,000 mL, Danie brielle Ringers 3-16 Rate: 125 l 1,000 mL 13:34: ml/hr, [place] 00 Infuse over: 8 hr, Route: IV, Dosing Weight 108.778 kg, Total Volume: 1,000, Start date: 12/12/16 8:34:00 CDT, Duration: 30 day, Stop date: 01/11/17 8:33:00 CDT Acetaminoph No Notes: Do M emoria en 325 MG / 3-16 not exceed l Hydrocodone 13:34: 4gm/day of [place] Bitartrate 00 acetaminop 10 MG Oral hen. (Same Tablet as: Anthony 325/10) Hydromorpho No Notes: Danie brielle ne 3-16 Same as l 13:34: Dilaudid [place] Promethazin No Notes: Do M emoria e 3-16 not give l 13:34: IV push. [place] 00 (Same as: Phenergan) Ondansetron No Notes: Danie brielle 3-16 (Same as: l 13:34: Zofran) [place] 00 MEDICATION WASTE Product Size: 4 mg Product Wasted: ___ mg Lactated No 1,000 mL, Danie brielle Ringers 3-16 Rate: 125 l 1,000 mL 13:34: ml/hr, [place] 00 Infuse over: 8 hr, Route: IV, Dosing Weight 108.778 kg, Total Volume: 1,000, Start date: 12/12/16 8:34:00 CDT, Duration: 30 day, Stop date: 01/11/17 8:33:00 CDT Acetaminoph No Notes: Do M emoria en 325 MG / 3-16 not exceed l Hydrocodone 13:34: 4gm/day of [place] Bitartrate 00 acetaminop 10 MG Oral hen. (Same Tablet as: Anthony 325/10) Hydromorpho No Notes: Danie brielle ne 3-16 Same as l 13:34: Dilaudid [place] 00 Promethazin No Notes: Do M emoria e 3-16 not give l 13:34: IV push. [place] 00 (Same as: Phenergan) Ondansetron No Notes: Danie brielle 3-16 (Same as: l 13:34: Zofran) [place] 00 MEDICATION WASTE Product Size: 4 mg Product Wasted: ___ mg Lactated 2016- No 1,000 mL, Danie brielle Ringers 3-16 Rate: 125 l 1,000 mL 13:34: ml/hr, [place] 00 Infuse over: 8 hr, Route: IV, Dosing Weight 108.778 kg, Total Volume: 1,000, Start date: 12/12/16 8:34:00 CDT, Duration: 30 day, Stop date: 01/11/17 8:33:00 CDT Acetaminoph No Notes: Do M emoria en 325 MG / 3-16 not exceed l Hydrocodone 13:34: 4gm/day of [place] Bitartrate 00 acetaminop 10 MG Oral hen. (Same Tablet as: Anthony 325/10) Hydromorpho No Notes: Danie brielle ne 3-16 Same as l 13:34: Dilaudid [place] 00 Promethazin No Notes: Do M emoria e 3-16 not give l 13:34: IV push. [place] 00 (Same as: Phenergan) Ondansetron No Notes: Danie brielle 3-16 (Same as: l 13:34: Zofran) [place] 00 MEDICATION WASTE Product Size: 4 mg Product Wasted: ___ mg Lactated No 1,000 mL, Danie brielle Ringers 3-16 Rate: 125 l 1,000 mL 13:34: ml/hr, [place] 00 Infuse over: 8 hr, Route: IV, Dosing Weight 108.778 kg, Total Volume: 1,000, Start date: 12/12/16 8:34:00 CDT, Duration: 30 day, Stop date: 01/11/17 8:33:00 CDT Acetaminoph No Notes: Do M emoria en 325 MG / 3-16 not exceed l Hydrocodone 13:34: 4gm/day of [place] Bitartrate 00 acetaminop 10 MG Oral hen. (Same Tablet as: Anthony 325/10) Hydromorpho No Notes: Danie brielle ne 3-16 Same as l 13:34: Dilaudid [place] 00 Promethazin No Notes: Do M emoria e 3-16 not give l 13:34: IV push. [place] 00 (Same as: Phenergan) Ondansetron No Notes: Danie brielle 3-16 (Same as: l 13:34: Zofran) [place] 00 MEDICATION WASTE Product Size: 4 mg Product Wasted: ___ mg Lactated No 1,000 mL, Danie brielle Ringers 3-16 Rate: 125 l 1,000 mL 13:34: ml/hr, [place] 00 Infuse over: 8 hr, Route: IV, Dosing Weight 108.778 kg, Total Volume: 1,000, Start date: 12/12/16 8:34:00 CDT, Duration: 30 day, Stop date: 01/11/17 8:33:00 CDT Acetaminoph No Notes: Do Jj emoria en 325 MG / 16 not exceed l Hydrocodone 13:34: 4gm/day of [place] Bitartrate 00 acetaminop 10 MG Oral hen. (Same Tablet as: Anthony 325/10) Hydromorpho No Notes: Danie brielle ne 3-16 Same as l 13:34: Dilaudid [place] 00 Promethazin No Notes: Do Jj emoria e 3-16 not give l 13:34: IV push. [place] (Same as: Phenergan) Ondansetron No Notes: Danie brielle 3-16 (Same as: l 13:34: Zofran) [place] 00 MEDICATION WASTE Product Size: 4 mg Product Wasted: ___ mg Lactated No 1,000 mL, Danie brielle Ringers 3-16 Rate: 125 l 1,000 mL 13:34: ml/hr, [place] 00 Infuse over: 8 hr, Route: IV, Dosing Weight 108.778 kg, Total Volume: 1,000, Start date: 12/12/16 8:34:00 CDT, Duration: 30 day, Stop date: 01/11/17 8:33:00 CDT Acetaminoph No Notes: Do M emoria en 325 MG / 3-16 not exceed l Hydrocodone 13:34: 4gm/day of [place] Bitartrate 00 acetaminop 10 MG Oral hen. (Same Tablet as: Anthony 325/10) Hydromorpho No Notes: Danie brielle ne 3-16 Same as l 13:34: Dilaudid [place] 00 Promethazin No Notes: Do M emoria e 3-16 not give l 13:34: IV push. [place] 00 (Same as: Phenergan) Ondansetron No Notes: Danie brielle 3-16 (Same as: l 13:34: Zofran) [place] 00 MEDICATION WASTE Product Size: 4 mg Product Wasted: ___ mg Lactated No 1,000 mL, Danie brielle Ringers 3-16 Rate: 125 l 1,000 mL 13:34: ml/hr, [place] 00 Infuse over: 8 hr, Route: IV, Dosing Weight 108.778 kg, Total Volume: 1,000, Start date: 12/12/16 8:34:00 CDT, Duration: 30 day, Stop date: 01/11/17 8:33:00 CDT Acetaminoph No Notes: Do M emoria en 325 MG / 3-16 not exceed l Hydrocodone 13:34: 4gm/day of [place] Bitartrate 00 acetaminop 10 MG Oral hen. (Same Tablet as: Anthony 325/10) Hydromorpho No Notes: Danie brielle ne 3-16 Same as l 13:34: Dilaudid [place] 00 Promethazin No Notes: Do M emoria e 3-16 not give l 13:34: IV push. [place] 00 (Same as: Phenergan) Ondansetron No Notes: Danie brielle 3-16 (Same as: l 13:34: Zofran) [place] 00 MEDICATION WASTE Product Size: 4 mg Product Wasted: ___ mg Lactated No 1,000 mL, Danie brielle Ringers 3-16 Rate: 125 l 1,000 mL 13:34: ml/hr, [place] 00 Infuse over: 8 hr, Route: IV, Dosing Weight 108.778 kg, Total Volume: 1,000, Start date: 12/12/16 8:34:00 CDT, Duration: 30 day, Stop date: 01/11/17 8:33:00 CDT Acetaminoph No Notes: Do M emoria en 325 MG / 3-16 not exceed l Hydrocodone 13:34: 4gm/day of [place] Bitartrate 00 acetaminop 10 MG Oral hen. (Same Tablet as: Anthony 325/10) Hydromorpho No Notes: Danie brielle ne 3-16 Same as l 13:34: Dilaudid [place] 00 Promethazin No Notes: Do M emoria e 3-16 not give l 13:34: IV push. [place] 00 (Same as: Phenergan) Ondansetron No Notes: Danie brielle 3-16 (Same as: l 13:34: Zofran) [place] 00 MEDICATION WASTE Product Size: 4 mg Product Wasted: ___ mg Lactated No 1,000 mL, Danie brielle Ringers 3-16 Rate: 125 l 1,000 mL 13:34: ml/hr, [place] 00 Infuse over: 8 hr, Route: IV, Dosing Weight 108.778 kg, Total Volume: 1,000, Start date: 12/12/16 8:34:00 CDT, Duration: 30 day, Stop date: 01/11/17 8:33:00 CDT Acetaminoph No Notes: Do M emoria en 325 MG / 3-16 not exceed l Hydrocodone 13:34: 4gm/day of [place] Bitartrate 00 acetaminop 10 MG Oral hen. (Same Tablet as: Anthony 325/10) Hydromorpho No Notes: Danie brielle ne 3-16 Same as l 13:34: Dilaudid [place] 00 Promethazin No Notes: Do M emoria e 3-16 not give l 13:34: IV push. [place] 00 (Same as: Phenergan) Ondansetron No Notes: Danie brielle 3-16 (Same as: l 13:34: Zofran) [place] 00 MEDICATION WASTE Product Size: 4 mg Product Wasted: ___ mg Lactated No 1,000 mL, Danie brielle Ringers 3-16 Rate: 125 l 1,000 mL 13:34: ml/hr, [place] 00 Infuse over: 8 hr, Route: IV, Dosing Weight 108.778 kg, Total Volume: 1,000, Start date: 12/12/16 8:34:00 CDT, Duration: 30 day, Stop date: 01/11/17 8:33:00 CDT Acetaminoph No Notes: Do M emoria en 325 MG / 3-16 not exceed l Hydrocodone 13:34: 4gm/day of [place] Bitartrate 00 acetaminop 10 MG Oral hen. (Same Tablet as: Anthony 325/10) Hydromorpho No Notes: Danie brielle ne 3-16 Same as l 13:34: Dilaudid Promethazin No Notes: Do M emoria e 3-16 not give l 13:34: IV push. (Same as: Phenergan) Ondansetron No Notes: Danie brielle 3-16 (Same as: l 13:34: Zofran) MEDICATION WASTE Product Size: 4 mg Product Wasted: ___ mg Lactated No 1,000 mL, Danie brielle Ringers 3-16 Rate: 125 l 1,000 mL 12:24: ml/hr, [place] 00 Infuse over: 8 hr, Route: IV, Dosing Weight 108.778 kg, Total Volume: 1,000, Start date: 12/12/16 7:24:00 CDT, Duration: 30 day, Stop date: 01/11/17 7:23:00 CDT Lactated 2016- No 1,000 mL, Danie brielle Ringers 3-16 Rate: 125 l 1,000 mL 12:24: ml/hr, [place] 00 Infuse over: 8 hr, Route: IV, Dosing Weight 108.778 kg, Total Volume: 1,000, Start date: 12/12/16 7:24:00 CDT, Duration: 30 day, Stop date: 01/11/17 7:23:00 CDT Lactated 2017-0 No 1,000 mL, Danie brielle Ringers 3-16 Rate: 125 l 1,000 mL 12:24: ml/hr, [place] 00 Infuse over: 8 hr, Route: IV, Dosing Weight 108.778 kg, Total Volume: 1,000, Start date: 12/12/16 7:24:00 CDT, Duration: 30 day, Stop date: 01/11/17 7:23:00 CDT Lactated 2017-0 No 1,000 mL, Danie brielle Ringers 3-16 Rate: 125 l 1,000 mL 12:24: ml/hr, [place] 00 Infuse over: 8 hr, Route: IV, Dosing Weight 108.778 kg, Total Volume: 1,000, Start date: 12/12/16 7:24:00 CDT, Duration: 30 day, Stop date: 01/11/17 7:23:00 CDT Lactated 2017-0 No 1,000 mL, Danie brielle Ringers 3-16 Rate: 125 l 1,000 mL 12:24: ml/hr, [place] 00 Infuse over: 8 hr, Route: IV, Dosing Weight 108.778 kg, Total Volume: 1,000, Start date: 12/12/16 7:24:00 CDT, Duration: 30 day, Stop date: 01/11/17 7:23:00 CDT Lactated 2017-0 No 1,000 mL, Danie brielle Ringers 3-16 Rate: 125 l 1,000 mL 12:24: ml/hr, [place] 00 Infuse over: 8 hr, Route: IV, Dosing Weight 108.778 kg, Total Volume: 1,000, Start date: 12/12/16 7:24:00 CDT, Duration: 30 day, Stop date: 01/11/17 7:23:00 CDT Lactated 2017-0 No 1,000 mL, Danie brielle Ringers 3-16 Rate: 125 l 1,000 mL 12:24: ml/hr, [place] 00 Infuse over: 8 hr, Route: IV, Dosing Weight 108.778 kg, Total Volume: 1,000, Start date: 12/12/16 7:24:00 CDT, Duration: 30 day, Stop date: 01/11/17 7:23:00 CDT Lactated 2017-0 No 1,000 mL, Danie brielle Ringers 3-16 Rate: 125 l 1,000 mL 12:24: ml/hr, [place] 00 Infuse over: 8 hr, Route: IV, Dosing Weight 108.778 kg, Total Volume: 1,000, Start date: 12/12/16 7:24:00 CDT, Duration: 30 day, Stop date: 01/11/17 7:23:00 CDT Lactated 2017-0 No 1,000 mL, Danie brielle Ringers 3-16 Rate: 125 l 1,000 mL 12:24: ml/hr, [place] 00 Infuse over: 8 hr, Route: IV, Dosing Weight 108.778 kg, Total Volume: 1,000, Start date: 12/12/16 7:24:00 CDT, Duration: 30 day, Stop date: 01/11/17 7:23:00 CDT Lactated 2017-0 No 1,000 mL, Danie brielle Ringers 3-16 Rate: 125 l 1,000 mL 12:24: ml/hr, [place] 00 Infuse over: 8 hr, Route: IV, Dosing Weight 108.778 kg, Total Volume: 1,000, Start date: 12/12/16 7:24:00 CDT, Duration: 30 day, Stop date: 01/11/17 7:23:00 CDT Lactated 2017-0 No 1,000 mL, Danie brielle Ringers 3-16 Rate: 125 l 1,000 mL 12:24: ml/hr, [place] 00 Infuse over: 8 hr, Route: IV, Dosing Weight 108.778 kg, Total Volume: 1,000, Start date: 12/12/16 7:24:00 CDT, Duration: 30 day, Stop date: 01/11/17 7:23:00 CDT Lactated 2017-0 No 1,000 mL, Danie brielle Ringers 3-16 Rate: 125 l 1,000 mL 12:24: ml/hr, [place] 00 Infuse over: 8 hr, Route: IV, Dosing Weight 108.778 kg, Total Volume: 1,000, Start date: 12/12/16 7:24:00 CDT, Duration: 30 day, Stop date: 01/11/17 7:23:00 CDT Lactated 2017-0 No 1,000 mL, Danie brielle Ringers 3-16 Rate: 125 l 1,000 mL 12:24: ml/hr, [place] 00 Infuse over: 8 hr, Route: IV, Dosing Weight 108.778 kg, Total Volume: 1,000, Start date: 12/12/16 7:24:00 CDT, Duration: 30 day, Stop date: 01/11/17 7:23:00 CDT Lactated 2017-0 No 1,000 mL, Danie brielle Ringers 3-16 Rate: 125 l 1,000 mL 12:24: ml/hr, [place] 00 Infuse over: 8 hr, Route: IV, Dosing Weight 108.778 kg, Total Volume: 1,000, Start date: 12/12/16 7:24:00 CDT, Duration: 30 day, Stop date: 01/11/17 7:23:00 CDT Lactated 2017-0 No 1,000 mL, Danie brielle Ringers 3-16 Rate: 125 l 1,000 mL 12:24: ml/hr, [place] 00 Infuse over: 8 hr, Route: IV, Dosing Weight 108.778 kg, Total Volume: 1,000, Start date: 12/12/16 7:24:00 CDT, Duration: 30 day, Stop date: 01/11/17 7:23:00 CDT Phenergan Yes 25 mg = 1 Mem oria 25 mg oral 3-13 tab, PO, l tablet 12:36: Q6H, PRN [place] 00 Nausea, 0 Refill(s) Ondansetron Yes 8 mg = 1 Me moria 8 MG Oral 3-13 tab, PO, l Tablet 12:36: TID, PRN [place] 00 Nausea, 0 Refill(s) 8 HR Yes 1,300 mg = Memoria Acetaminoph 3-13 2 tab, PO, l en 650 MG 12:36: Q8H, 0 Jalil n Extended 00 Refill(s) Release Tablet [Tylenol] dexlansopra Yes 60 mg = 1 M emoria zole 60 MG 3-13 cap, PO, l Enteric 12:36: Daily, 0 Jal[place] n Coated 00 Refill(s) Capsule [Dexilant] Phenergan 2017 Yes 25 mg = 1 Mem oria 25 mg oral 3-13 tab, PO, l tablet 12:36: Q6H, PRN [place] 00 Nausea, 0 Refill(s) Ondansetron Yes 8 mg = 1 Me moria 8 MG Oral 3-13 tab, PO, l Tablet 12:36: TID, PRN [place] 00 Nausea, 0 Refill(s) 8 HR 2017 Yes 1,300 mg = Memoria Acetaminoph 3-13 2 tab, PO, l en 650 MG 12:36: Q8H, 0 [place] Extended 00 Refill(s) Release Tablet [Tylenol] dexlansopra Yes 60 mg = 1 M emoria zole 60 MG 3-13 cap, PO, l Enteric 12:36: Daily, 0 Jalil n Coated 00 Refill(s) Capsule [Dexilant] Phenergan Yes 25 mg = 1 Mem oria 25 mg oral 3-13 tab, PO, l tablet 12:36: Q6H, PRN [place] 00 Nausea, 0 Refill(s) Ondansetron Yes 8 mg = 1 Me moria 8 MG Oral 3-13 tab, PO, l Tablet 12:36: TID, PRN [place] 00 Nausea, 0 Refill(s) 8 HR Yes 1,300 mg = Memoria Acetaminoph 3-13 2 tab, PO, l en 650 MG 12:36: Q8H, 0 [place]al[place] Extended 00 Refill(s) Release Tablet [Tylenol] dexlansopra Yes 60 mg = 1 M emoria zole 60 MG 3-13 cap, PO, l Enteric 12:36: Daily, 0 [place]al[place] n Coated 00 Refill(s) Capsule [Dexilant] Phenergan Yes 25 mg = 1 Mem oria 25 mg oral 3-13 tab, PO, l tablet 12:36: Q6H, PRN [place] 00 Nausea, 0 Refill(s) Ondansetron Yes 8 mg = 1 Me moria 8 MG Oral 3-13 tab, PO, l Tablet 12:36: TID, PRN [place] 00 Nausea, 0 Refill(s) 8 HR 2017 Yes 1,300 mg = Memoria Acetaminoph 3-13 2 tab, PO, l en 650 MG 12:36: Q8H, 0 Jal[place] n Extended 00 Refill(s) Release Tablet [Tylenol] dexlansopra Yes 60 mg = 1 M emoria zole 60 MG 3-13 cap, PO, l Enteric 12:36: Daily, 0 [place]alil n Coated 00 Refill(s) Capsule [Dexilant] Phenergan Yes 25 mg = 1 Mem oria 25 mg oral 3-13 tab, PO, l tablet 12:36: Q6H, PRN [place] 00 Nausea, 0 Refill(s) Ondansetron Yes 8 mg = 1 Me moria 8 MG Oral 3-13 tab, PO, l Tablet 12:36: TID, PRN [place] 00 Nausea, 0 Refill(s) 8 HR Yes 1,300 mg = Memoria Acetaminoph 3-13 2 tab, PO, l en 650 MG 12:36: Q8H, 0 [place]al[place] Extended 00 Refill(s) Release Tablet [Tylenol] dexlansopra Yes 60 mg = 1 M emoria zole 60 MG 3-13 cap, PO, l Enteric 12:36: Daily, 0 [place]al[place] Coated 00 Refill(s) Capsule [Dexilant] Phenergan Yes 25 mg = 1 Mem oria 25 mg oral 3-13 tab, PO, l tablet 12:36: Q6H, PRN [place] 00 Nausea, 0 Refill(s) Ondansetron Yes 8 mg = 1 Me moria 8 MG Oral 3-13 tab, PO, l Tablet 12:36: TID, PRN [place] 00 Nausea, 0 Refill(s) 8 HR Yes 1,300 mg = Memoria Acetaminoph 3-13 2 tab, PO, l en 650 MG 12:36: Q8H, 0 Jalil n Extended 00 Refill(s) Release Tablet [Tylenol] dexlansopra Yes 60 mg = 1 M emoria zole 60 MG 3-13 cap, PO, l Enteric 12:36: Daily, 0 Jalil n Coated 00 Refill(s) Capsule [Dexilant] Phenergan Yes 25 mg = 1 Mem oria 25 mg oral 3-13 tab, PO, l tablet 12:36: Q6H, PRN [place] 00 Nausea, 0 Refill(s) Ondansetron 2017 Yes 8 mg = 1 Me moria 8 MG Oral 3-13 tab, PO, l Tablet 12:36: TID, PRN [place] 00 Nausea, 0 Refill(s) 8 HR 2017 Yes 1,300 mg = Memoria Acetaminoph 3-13 2 tab, PO, l en 650 MG 12:36: Q8H, 0 [place]al[place] Extended 00 Refill(s) Release Tablet [Tylenol] dexlansopra Yes 60 mg = 1 M emoria zole 60 MG 3-13 cap, PO, l Enteric 12:36: Daily, 0 Jal[place] Coated 00 Refill(s) Capsule [Dexilant] Phenergan Yes 25 mg = 1 Mem oria 25 mg oral 3-13 tab, PO, l tablet 12:36: Q6H, PRN [place] 00 Nausea, 0 Refill(s) Ondansetron Yes 8 mg = 1 Me moria 8 MG Oral 3-13 tab, PO, l Tablet 12:36: TID, PRN [place] 00 Nausea, 0 Refill(s) 8 HR Yes 1,300 mg = Memoria Acetaminoph 3-13 2 tab, PO, l en 650 MG 12:36: Q8H, 0 Jalil n Extended 00 Refill(s) Release Tablet [Tylenol] dexlansopra Yes 60 mg = 1 M emoria zole 60 MG 3-13 cap, PO, l Enteric 12:36: Daily, 0 Jal[place] n Coated 00 Refill(s) Capsule [Dexilant] Phenergan Yes 25 mg = 1 Mem oria 25 mg oral 3-13 tab, PO, l tablet 12:36: Q6H, PRN [place] 00 Nausea, 0 Refill(s) Ondansetron Yes 8 mg = 1 Me moria 8 MG Oral 3-13 tab, PO, l Tablet 12:36: TID, PRN [place] 00 Nausea, 0 Refill(s) 8 HR 2017 Yes 1,300 mg = Memoria Acetaminoph 3-13 2 tab, PO, l en 650 MG 12:36: Q8H, 0 Jal[place] Extended 00 Refill(s) Release Tablet [Tylenol] dexlansopra Yes 60 mg = 1 M emoria zole 60 MG 3-13 cap, PO, l Enteric 12:36: Daily, 0 Jal[place] n Coated 00 Refill(s) Capsule [Dexilant] Phenergan 2017 Yes 25 mg = 1 Mem oria 25 mg oral 3-13 tab, PO, l tablet 12:36: Q6H, PRN [place] 00 Nausea, 0 Refill(s) Ondansetron Yes 8 mg = 1 Me moria 8 MG Oral 3-13 tab, PO, l Tablet 12:36: TID, PRN [place] 00 Nausea, 0 Refill(s) 8 HR Yes 1,300 mg = Memoria Acetaminoph 3-13 2 tab, PO, l en 650 MG 12:36: Q8H, 0 Jal[place] n Extended 00 Refill(s) Release Tablet [Tylenol] dexlansopra Yes 60 mg = 1 M emoria zole 60 MG 3-13 cap, PO, l Enteric 12:36: Daily, 0 Jal[place] n Coated 00 Refill(s) Capsule [Dexilant] Phenergan Yes 25 mg = 1 Mem oria 25 mg oral 3-13 tab, PO, l tablet 12:36: Q6H, PRN [place] 00 Nausea, 0 Refill(s) Ondansetron Yes 8 mg = 1 Me moria 8 MG Oral 3-13 tab, PO, l Tablet 12:36: TID, PRN [place] 00 Nausea, 0 Refill(s) 8 HR 2017 Yes 1,300 mg = Memoria Acetaminoph 3-13 2 tab, PO, l en 650 MG 12:36: Q8H, 0 Jalil n Extended 00 Refill(s) Release Tablet [Tylenol] dexlansopra Yes 60 mg = 1 M emoria zole 60 MG 3-13 cap, PO, l Enteric 12:36: Daily, 0 [place]al[place] n Coated 00 Refill(s) Capsule [Dexilant] Phenergan Yes 25 mg = 1 Mem oria 25 mg oral 3-13 tab, PO, l tablet 12:36: Q6H, PRN [place] 00 Nausea, 0 Refill(s) Ondansetron 2017 Yes 8 mg = 1 Me moria 8 MG Oral 3-13 tab, PO, l Tablet 12:36: TID, PRN [place] 00 Nausea, 0 Refill(s) 8 HR 2017 Yes 1,300 mg = Memoria Acetaminoph 3-13 2 tab, PO, l en 650 MG 12:36: Q8H, 0 [place]al[place] Extended 00 Refill(s) Release Tablet [Tylenol] dexlansopra Yes 60 mg = 1 M emoria zole 60 MG 3-13 cap, PO, l Enteric 12:36: Daily, 0 [place] Coated 00 Refill(s) Capsule [Dexilant] Phenergan Yes 25 mg = 1 Mem oria 25 mg oral 3-13 tab, PO, l tablet 12:36: Q6H, PRN [place] 00 Nausea, 0 Refill(s) Ondansetron Yes 8 mg = 1 Me moria 8 MG Oral 3-13 tab, PO, l Tablet 12:36: TID, PRN [place] 00 Nausea, 0 Refill(s) 8 HR Yes 1,300 mg = Memoria Acetaminoph 3-13 2 tab, PO, l en 650 MG 12:36: Q8H, 0 Jal[place] n Extended 00 Refill(s) Release Tablet [Tylenol] dexlansopra Yes 60 mg = 1 M emoria zole 60 MG 3-13 cap, PO, l Enteric 12:36: Daily, 0 Jal[place] n Coated 00 Refill(s) Capsule [Dexilant] Phenergan Yes 25 mg = 1 Mem oria 25 mg oral 3-13 tab, PO, l tablet 12:36: Q6H, PRN [place] 00 Nausea, 0 Refill(s) Ondansetron Yes 8 mg = 1 Me moria 8 MG Oral 3-13 tab, PO, l Tablet 12:36: TID, PRN [place] 00 Nausea, 0 Refill(s) 8 HR 2017 Yes 1,300 mg = Memoria Acetaminoph 3-13 2 tab, PO, l en 650 MG 12:36: Q8H, 0 Jal[place] Extended 00 Refill(s) Release Tablet [Tylenol] dexlansopra 2017 Yes 60 mg = 1 M emoria zole 60 MG 3-13 cap, PO, l Enteric 12:36: Daily, 0 Jalil n Coated 00 Refill(s) Capsule [Dexilant] Phenergan 2017 Yes 25 mg = 1 Mem oria 25 mg oral 3-13 tab, PO, l tablet 12:36: Q6H, PRN [place] 00 Nausea, 0 Refill(s) Ondansetron 2017 Yes 8 mg = 1 Me moria 8 MG Oral 3-13 tab, PO, l Tablet 12:36: TID, PRN [place] 00 Nausea, 0 Refill(s) 8 HR 2017 Yes 1,300 mg = Memoria Acetaminoph 3-13 2 tab, PO, l en 650 MG 12:36: Q8H, 0 Jalil n Extended 00 Refill(s) Release Tablet [Tylenol] dexlansopra Yes 60 mg = 1 M emoria zole 60 MG 3-13 cap, PO, l Enteric 12:36: Daily, 0 Jalil n Coated 00 Refill(s) Capsule [Dexilant] tramadol Yes 50 mg = 1 Danie brielle hydrochlori 3-13 tab, PO, l de 50 MG 12:35: Q4H, 0 [place] Oral Tablet 00 Refill(s) Cyclobenzap 2017 Yes 10 mg = 1 M emoria rine 3-13 tab, PO, l hydrochlori 12:35: TID, 0 Herm bebe de 10 MG 00 Refill(s) Oral Tablet [Flexeril] tramadol 2017 Yes 50 mg = 1 Danie brielle hydrochlori 3-13 tab, PO, l de 50 MG 12:35: Q4H, 0 [place] Oral Tablet 00 Refill(s) Cyclobenzap 2017 Yes 10 mg = 1 M emoria rine 3-13 tab, PO, l hydrochlori 12:35: TID, 0 Herm bebe de 10 MG 00 Refill(s) Oral Tablet [Flexeril] tramadol Yes 50 mg = 1 Danie brielle hydrochlori 3-13 tab, PO, l de 50 MG 12:35: Q4H, 0 [place] Oral Tablet 00 Refill(s) Cyclobenzap 2017-0 Yes 10 mg = 1 M emoria rine 3-13 tab, PO, l hydrochlori 12:35: TID, 0 Herm bebe de 10 MG 00 Refill(s) Oral Tablet [Flexeril] tramadol 20170 Yes 50 mg = 1 Danie brielle hydrochlori 3-13 tab, PO, l de 50 MG 12:35: Q4H, 0 [place] Oral Tablet 00 Refill(s) Cyclobenzap 20170 Yes 10 mg = 1 M emoria rine 3-13 tab, PO, l hydrochlori 12:35: TID, 0 Herm bebe de 10 MG 00 Refill(s) Oral Tablet [Flexeril] tramadol 20170 Yes 50 mg = 1 Danie brielle hydrochlori 3-13 tab, PO, l de 50 MG 12:35: Q4H, 0 [place] Oral Tablet 00 Refill(s) Cyclobenzap 2017 Yes 10 mg = 1 M emoria rine 3-13 tab, PO, l hydrochlori 12:35: TID, 0 Herm bebe de 10 MG 00 Refill(s) Oral Tablet [Flexeril] tramadol 2017-0 Yes 50 mg = 1 Danie brielle hydrochlori 3-13 tab, PO, l de 50 MG 12:35: Q4H, 0 [place] Oral Tablet 00 Refill(s) Cyclobenzap 20170 Yes 10 mg = 1 M emoria rine 3-13 tab, PO, l hydrochlori 12:35: TID, 0 Herm bebe de 10 MG 00 Refill(s) Oral Tablet [Flexeril] tramadol 20170 Yes 50 mg = 1 Danie brielle hydrochlori 3-13 tab, PO, l de 50 MG 12:35: Q4H, 0 [place] Oral Tablet 00 Refill(s) Cyclobenzap 20170 Yes 10 mg = 1 M emoria rine 3-13 tab, PO, l hydrochlori 12:35: TID, 0 Herm bebe de 10 MG 00 Refill(s) Oral Tablet [Flexeril] tramadol 2017-0 Yes 50 mg = 1 Danie brielle hydrochlori 3-13 tab, PO, l de 50 MG 12:35: Q4H, 0 [place] Oral Tablet 00 Refill(s) Cyclobenzap 2017 Yes 10 mg = 1 M emoria rine 3-13 tab, PO, l hydrochlori 12:35: TID, 0 Herm bebe de 10 MG 00 Refill(s) Oral Tablet [Flexeril] tramadol 20170 Yes 50 mg = 1 Danie brielle hydrochlori 3-13 tab, PO, l de 50 MG 12:35: Q4H, 0 [place] Oral Tablet 00 Refill(s) Cyclobenzap Yes 10 mg = 1 M emoria rine 3-13 tab, PO, l hydrochlori 12:35: TID, 0 Herm bebe de 10 MG 00 Refill(s) Oral Tablet [Flexeril] tramadol 0 Yes 50 mg = 1 Danie brielle hydrochlori 3-13 tab, PO, l de 50 MG 12:35: Q4H, 0 [place] Oral Tablet 00 Refill(s) Cyclobenzap Yes 10 mg = 1 M emoria rine 3-13 tab, PO, l hydrochlori 12:35: TID, 0 Herm bebe de 10 MG 00 Refill(s) Oral Tablet [Flexeril] tramadol 20170 Yes 50 mg = 1 Danie brielle hydrochlori 3-13 tab, PO, l de 50 MG 12:35: Q4H, 0 [place] Oral Tablet 00 Refill(s) Cyclobenzap 20170 Yes 10 mg = 1 M emoria rine 3-13 tab, PO, l hydrochlori 12:35: TID, 0 Herm bebe de 10 MG 00 Refill(s) Oral Tablet [Flexeril] tramadol 20170 Yes 50 mg = 1 Danie brielle hydrochlori 3-13 tab, PO, l de 50 MG 12:35: Q4H, 0 [place] Oral Tablet 00 Refill(s) Cyclobenzap 20170 Yes 10 mg = 1 M emoria rine 3-13 tab, PO, l hydrochlori 12:35: TID, 0 Herm bebe de 10 MG 00 Refill(s) Oral Tablet [Flexeril] tramadol 2017-0 Yes 50 mg = 1 Danie brielle hydrochlori 3-13 tab, PO, l de 50 MG 12:35: Q4H, 0 [place] Oral Tablet 00 Refill(s) Cyclobenzap 2017-0 Yes 10 mg = 1 M emoria rine 3-13 tab, PO, l hydrochlori 12:35: TID, 0 Herm bebe de 10 MG 00 Refill(s) Oral Tablet [Flexeril] tramadol 2017-0 Yes 50 mg = 1 Danie brielle hydrochlori 3-13 tab, PO, l de 50 MG 12:35: Q4H, 0 [place] Oral Tablet 00 Refill(s) Cyclobenzap 2017-0 Yes 10 mg = 1 M emoria rine 3-13 tab, PO, l hydrochlori 12:35: TID, 0 Herm bebe de 10 MG 00 Refill(s) Oral Tablet [Flexeril] tramadol 0 Yes 50 mg = 1 Danie brielle hydrochlori 3-13 tab, PO, l de 50 MG 12:35: Q4H, 0 [place] Oral Tablet 00 Refill(s) Cyclobenzap 0 Yes 10 mg = 1 M emoria rine 3-13 tab, PO, l hydrochlori 12:35: TID, 0 Herm bebe de 10 MG 00 Refill(s) Oral Tablet [Flexeril] Dexlansopra Yes TAKE ONE [place] zole 3-06 CAPSULE BY ity of (DEXILANT) 00:00: MOUTH ONCE [place] 60 mg 00 A DAY ONE Medical capsule HOUR [facility] BEFORE A MEAL Dexlansopra Yes TAKE ONE [place] zole 3-06 CAPSULE BY ity of (DEXILANT) 00:00: MOUTH ONCE [place] 60 mg 00 A DAY ONE Medical capsule HOUR [facility] BEFORE A MEAL Dexlansopra Yes TAKE ONE [place] zole 3-06 CAPSULE BY ity of (DEXILANT) 00:00: MOUTH ONCE [place] 60 mg 00 A DAY ONE Medical capsule HOUR [facility] BEFORE A MEAL Dexlansopra Yes TAKE ONE [place] zole 3-06 CAPSULE BY ity of (DEXILANT) 00:00: MOUTH ONCE [place] 60 mg 00 A DAY ONE Medical capsule HOUR [facility] BEFORE A MEAL Dexlansopra Yes TAKE ONE [place] zole 3-06 CAPSULE BY ity of (DEXILANT) 00:00: MOUTH ONCE [place] 60 mg 00 A DAY ONE Medical capsule HOUR [facility] BEFORE A MEAL Dexlansopra Yes TAKE ONE [place] zole 3-06 CAPSULE BY ity of (DEXILANT) 00:00: MOUTH ONCE [place] 60 mg 00 A DAY ONE Medical capsule HOUR [facility] BEFORE A MEAL Dexlansopra Yes TAKE ONE [place] zole 3-06 CAPSULE BY ity of (DEXILANT) 00:00: MOUTH ONCE [place] 60 mg 00 A DAY ONE Medical capsule HOUR [facility] BEFORE A MEAL Dexlansopra Yes TAKE ONE [place] zole 3-06 CAPSULE BY ity of (DEXILANT) 00:00: MOUTH ONCE [place] 60 mg 00 A DAY ONE Medical capsule HOUR [facility] BEFORE A MEAL Dexlansopra Yes TAKE ONE [place] zole 3-06 CAPSULE BY ity of (DEXILANT) 00:00: MOUTH ONCE [place] 60 mg 00 A DAY ONE Medical capsule HOUR [facility] BEFORE A MEAL Dexlansopra 2021- No TAKE ONE U [place] zole 3-06 -11 CAPSULE BY ity of (DEXILANT) 00:00: 00:00 MOUTH ONCE [place] 60 mg 00 :00 A DAY ONE Medical capsule HOUR [facility] BEFORE A MEAL Diazepam 2015-09 Yes 10 mg = 1 M emoria MG Oral 2-22 tab, PO, l Tablet 21:11: TID, # 24 Jalil [place] [Valium] 00 tab, 0 Refill(s) Diazepam 2015-09 Yes 10 mg = 1 M emoria MG Oral 2-22 tab, PO, l Tablet 21:11: TID, # 24 Jalil n [Valium] 00 tab, 0 Refill(s) Diazepam 2015-09 Yes 10 mg = 1 M emoria MG Oral 2-22 tab, PO, l Tablet 21:11: TID, # 24 Jalil n [Valium] 00 tab, 0 Refill(s) Diazepam 2015-09 Yes 10 mg = 1 M emoria MG Oral 2-22 tab, PO, l Tablet 21:11: TID, # 24 Jalil n [Valium] 00 tab, 0 Refill(s) Diazepam 2015-09 Yes 10 mg = 1 M emoria MG Oral 2-22 tab, PO, l Tablet 21:11: TID, # 24 Jalil n [Valium] 00 tab, 0 Refill(s) Diazepam 2015-09 Yes 10 mg = 1 M emoria MG Oral 2-22 tab, PO, l Tablet 21:11: TID, # 24 Jalil n [Valium] 00 tab, 0 Refill(s) Diazepam 2015-09 Yes 10 mg = 1 M emoria MG Oral 2-22 tab, PO, l Tablet 21:11: TID, # 24 Jalil n [Valium] 00 tab, 0 Refill(s) Diazepam 2015-09 Yes 10 mg = 1 M emoria MG Oral 2-22 tab, PO, l Tablet 21:11: TID, # 24 Jalil n [Valium] 00 tab, 0 Refill(s) Diazepam 2015-09 Yes 10 mg = 1 M emoria MG Oral 2-22 tab, PO, l Tablet 21:11: TID, # 24 Jalil n [Valium] 00 tab, 0 Refill(s) Diazepam 2015-09 Yes 10 mg = 1 M emoria MG Oral 2-22 tab, PO, l Tablet 21:11: TID, # 24 Jalil n [Valium] 00 tab, 0 Refill(s) Diazepam 2015-09 Yes 10 mg = 1 M emoria MG Oral 2-22 tab, PO, l Tablet 21:11: TID, # 24 Jalil n [Valium] 00 tab, 0 Refill(s) Diazepam 2015-09 Yes 10 mg = 1 M emoria MG Oral 2-22 tab, PO, l Tablet 21:11: TID, # 24 Jalil n [Valium] 00 tab, 0 Refill(s) Diazepam 2015-09 Yes 10 mg = 1 M emoria MG Oral 2-22 tab, PO, l Tablet 21:11: TID, # 24 Jalil n [Valium] 00 tab, 0 Refill(s) Diazepam 2015-09 Yes 10 mg = 1 M emoria MG Oral 2-22 tab, PO, l Tablet 21:11: TID, # 24 Jalil n [Valium] 00 tab, 0 Refill(s) Diazepam 2015-09 Yes 10 mg = 1 M emoria MG Oral 2-22 tab, PO, l Tablet 21:11: TID, # 24 Jalil n [Valium] 00 tab, 0 Refill(s) Acetaminoph 2015-09 Yes 1 tab, PO, Memoria en 300 MG / 2-22 Q4H, PRN l Codeine 21:10: Pain, X 7 Shobha nn Phosphate 00 day, # 42 30 MG Oral tab, 0 Tablet Refill(s) [Tylenol with Codeine #3] Acetaminoph 2015-09 Yes 1 tab, PO, Memoria en 300 MG / 2-22 Q4H, PRN l Codeine 21:10: Pain, X 7 Shobha nn Phosphate 00 day, # 42 30 MG Oral tab, 0 Tablet Refill(s) [Tylenol with Codeine #3] Acetaminoph 2015-09 Yes 1 tab, PO, Memoria en 300 MG / 2-22 Q4H, PRN l Codeine 21:10: Pain, X 7 Shobha nn Phosphate 00 day, # 42 30 MG Oral tab, 0 Tablet Refill(s) [Tylenol with Codeine #3] Acetaminoph 2015-09 Yes 1 tab, PO, Memoria en 300 MG / 2-22 Q4H, PRN l Codeine 21:10: Pain, X 7 Shobha nn Phosphate 00 day, # 42 30 MG Oral tab, 0 Tablet Refill(s) [Tylenol with Codeine #3] Acetaminoph 2015-09 Yes 1 tab, PO, Memoria en 300 MG / 2-22 Q4H, PRN l Codeine 21:10: Pain, X 7 Shobha nn Phosphate 00 day, # 42 30 MG Oral tab, 0 Tablet Refill(s) [Tylenol with Codeine #3] Acetaminoph 2015-09 Yes 1 tab, PO, Memoria en 300 MG / 2-22 Q4H, PRN l Codeine 21:10: Pain, X 7 Shobha nn Phosphate 00 day, # 42 30 MG Oral tab, 0 Tablet Refill(s) [Tylenol with Codeine #3] Acetaminoph 2015-09 Yes 1 tab, PO, Memoria en 300 MG / 2-22 Q4H, PRN l Codeine 21:10: Pain, X 7 Shobha nn Phosphate 00 day, # 42 30 MG Oral tab, 0 Tablet Refill(s) [Tylenol with Codeine #3] Acetaminoph 2015-09 Yes 1 tab, PO, Memoria en 300 MG / 2-22 Q4H, PRN l Codeine 21:10: Pain, X 7 Shobha nn Phosphate 00 day, # 42 30 MG Oral tab, 0 Tablet Refill(s) [Tylenol with Codeine #3] Acetaminoph 2015-09 Yes 1 tab, PO, Memoria en 300 MG / 2-22 Q4H, PRN l Codeine 21:10: Pain, X 7 Shobha nn Phosphate 00 day, # 42 30 MG Oral tab, 0 Tablet Refill(s) [Tylenol with Codeine #3] Acetaminoph 2015-09 Yes 1 tab, PO, Memoria en 300 MG / 2-22 Q4H, PRN l Codeine 21:10: Pain, X 7 Shobha nn Phosphate 00 day, # 42 30 MG Oral tab, 0 Tablet Refill(s) [Tylenol with Codeine #3] Acetaminoph 2015-09 Yes 1 tab, PO, Memoria en 300 MG / 2-22 Q4H, PRN l Codeine 21:10: Pain, X 7 Shobha nn Phosphate 00 day, # 42 30 MG Oral tab, 0 Tablet Refill(s) [Tylenol with Codeine #3] Acetamino 2015-09 Yes 1 tab, PO, Memoria en 300 MG / 2-22 Q4H, PRN l Codeine 21:10: Pain, X 7 Shobha nn Phosphate 00 day, # 42 30 MG Oral tab, 0 Tablet Refill(s) [Tylenol with Codeine #3] Acetamino 2015-09 Yes 1 tab, PO, Memoria en 300 MG / 2-22 Q4H, PRN l Codeine 21:10: Pain, X 7 Shobha nn Phosphate 00 day, # 42 30 MG Oral tab, 0 Tablet Refill(s) [Tylenol with Codeine #3] Acetaminoph 2015-09 Yes 1 tab, PO, Memoria en 300 MG / 2-22 Q4H, PRN l Codeine 21:10: Pain, X 7 Shobha nn Phosphate 00 day, # 42 30 MG Oral tab, 0 Tablet Refill(s) [Tylenol with Codeine #3] Acetamino 2015-09 Yes 1 tab, PO, Memoria en 300 MG / 2-22 Q4H, PRN l Codeine 21:10: Pain, X 7 Shobha nn Phosphate 00 day, # 42 30 MG Oral tab, 0 Tablet Refill(s) [Tylenol with Codeine #3] Morphine 2015-09 No Notes: Memoria 2-22 (Same l 20:06: as:MORPhin [place] 00 e Sulfate) Saline 2015-09 No Notes: Memoria Flush 0.9% 2-22 (Same as: l 20:06: BD [place] 00 Posiflush) Morphine 2015-09 No Notes: Memoria 2-22 (Same l 20:06: as:MORPhin [place] 00 e Sulfate) Saline 2015-09 No Notes: Memoria Flush 0.9% 2-22 (Same as: l 20:06: BD [place] 00 Posiflush) Morphine 2015-09 No Notes: Memoria 2-22 (Same l 20:06: as:MORPhin [place] 00 e Sulfate) Saline 2015-09 No Notes: Memoria Flush 0.9% 2-22 (Same as: l 20:06: BD [place] 00 Posiflush) Morphine 2015-09 No Notes: Memoria 2-22 (Same l 20:06: as:MORPhin [place] 00 e Sulfate) Saline 2015-09 No Notes: Memoria Flush 0.9% 2-22 (Same as: l 20:06: BD [place] 00 Posiflush) Morphine 2015-09 No Notes: Memoria 2-22 (Same l 20:06: as:MORPhin [place] 00 e Sulfate) Saline 2015-09 No Notes: Memoria Flush 0.9% 2-22 (Same as: l 20:06: BD [place] 00 Posiflush) Morphine 2015-09 No Notes: Memoria 2-22 (Same l 20:06: as:MORPhin [place] 00 e Sulfate) Saline 2015-09 No Notes: Memoria Flush 0.9% 2-22 (Same as: l 20:06: BD [place] 00 Posiflush) Morphine 2015-09 No Notes: Memoria 2-22 (Same l 20:06: as:MORPhin [place] 00 e Sulfate) Saline 2015-09 No Notes: Memoria Flush 0.9% 2-22 (Same as: l 20:06: BD [place] 00 Posiflush) Morphine 2015-09 No Notes: Memoria 2-22 (Same l 20:06: as:MORPhin [place] 00 e Sulfate) Saline 2015-09 No Notes: Memoria Flush 0.9% 2-22 (Same as: l 20:06: BD [place] 00 Posiflush) Morphine 2015-09 No Notes: Memoria 2-22 (Same l 20:06: as:MORPhin [place] 00 e Sulfate) Saline 2015-09 No Notes: Memoria Flush 0.9% 2-22 (Same as: l 20:06: BD [place] 00 Posiflush) Morphine 2015-09 No Notes: Memoria 2-22 (Same l 20:06: as:MORPhin [place] 00 e Sulfate) Saline 2015-09 No Notes: Memoria Flush 0.9% 2-22 (Same as: l 20:06: BD [place] 00 Posiflush) Morphine 2015-09 No Notes: Memoria 2-22 (Same l 20:06: as:MORPhin [place] 00 e Sulfate) Saline 2015-09 No Notes: Memoria Flush 0.9% 2-22 (Same as: l 20:06: BD [place] 00 Posiflush) Morphine 2015-09 No Notes: Memoria 2-22 (Same l 20:06: as:MORPhin [place] 00 e Sulfate) Saline 2015-09 No Notes: Memoria Flush 0.9% 2-22 (Same as: l 20:06: BD [place] 00 Posiflush) Morphine 2015-09 No Notes: Memoria 2-22 (Same l 20:06: as:MORPhin [place] 00 e Sulfate) Saline 2015-09 No Notes: Memoria Flush 0.9% 2-22 (Same as: l 20:06: BD [place] 00 Posiflush) Morphine 2015-09 No Notes: Memoria 2-22 (Same l 20:06: as:MORPhin [place] 00 e Sulfate) Saline 2015-09 No Notes: Memoria Flush 0.9% 2-22 (Same as: l 20:06: BD [place] 00 Posiflush) Morphine 2015-09 No Notes: Memoria 2-22 (Same l 20:06: as:MORPhin [place] 00 e Sulfate) Saline 2015-09 No Notes: Memoria Flush 0.9% 2-22 (Same as: l 20:06: BD [place] 00 Posiflush) Anthony 2012-09 No Butch 1 tab, Memoria 10/325 oral 1-20 Patrick Route: PO, l tablet 06:46: [facility] Drug Form: H [place] 00 TAB, Dosing Weight 90.909, kg, ONCE, Start date: 08/18/13 0:46:00, Stop date: 08/18/13 0:46:00Do not exceed 4gm/day of acetaminop hen. (Same as: Anthony ) Anthony 2012-09 No Butch 1 tab, Memoria 10/325 oral 1-20 Patrick Route: PO, l tablet 06:46: [facility] Drug Form: H [place] 00 TAB, Dosing Weight 90.909, kg, ONCE, Start date: 08/18/13 0:46:00, Stop date: 08/18/13 0:46:00Do not exceed 4gm/day of acetaminop hen. (Same as: Anthony ) Anthony 2012-09 No Butch 1 tab, Memoria 10/325 oral 1-20 Patrick Route: PO, l tablet 06:46: [facility] Drug Form: H [place] 00 TAB, Dosing Weight 90.909, kg, ONCE, Start date: 08/18/13 0:46:00, Stop date: 08/18/13 0:46:00Do not exceed 4gm/day of acetaminop hen. (Same as: Anthony ) Anthony 2012-09 No Butch 1 tab, Memoria 10/325 oral 1-20 Patrick Route: PO, l tablet 06:46: [facility] Drug Form: H [place] 00 TAB, Dosing Weight 90.909, kg, ONCE, Start date: 08/18/13 0:46:00, Stop date: 08/18/13 0:46:00Do not exceed 4gm/day of acetaminop hen. (Same as: Anthony ) Anthony 2012-09 No Butch 1 tab, Memoria 10/325 oral 1-20 [place] Route: PO, l tablet 06:46: [facility] Drug Form: H [place] 00 TAB, Dosing Weight 90.909, kg, ONCE, Start date: 08/18/13 0:46:00, Stop date: 08/18/13 0:46:00Do not exceed 4gm/day of acetaminop hen. (Same as: Anthony ) Anthony 2012-09 No Butch 1 tab, Memoria 10/325 oral 1-20 [place] Route: PO, l tablet 06:46: [facility] Drug Form: H [place] 00 TAB, Dosing Weight 90.909, kg, ONCE, Start date: 08/18/13 0:46:00, Stop date: 08/18/13 0:46:00Do not exceed 4gm/day of acetaminop hen. (Same as: Anthony ) [place] 2012-09 No Butch 1 tab, Memoria 10/325 oral 1-20 [place] Route: PO, l tablet 06:46: [facility] Drug Form: H [place] 00 TAB, Dosing Weight 90.909, kg, ONCE, Start date: 08/18/13 0:46:00, Stop date: 08/18/13 0:46:00Do not exceed 4gm/day of acetaminop hen. (Same as: Anthony ) Anthony 2012-09 No [place]ch 1 tab, Memoria 10/325 oral 1-20 [place] Route: PO, l tablet 06:46: [facility] Drug Form: H [place] 00 TAB, Dosing Weight 90.909, kg, ONCE, Start date: 08/18/13 0:46:00, Stop date: 08/18/13 0:46:00Do not exceed 4gm/day of acetaminop hen. (Same as: Anthony ) Anthony 2012-09 No Butch 1 tab, Memoria 10/325 oral 1-20 [place] Route: PO, l tablet 06:46: [facility] Drug Form: H [place] 00 TAB, Dosing Weight 90.909, kg, ONCE, Start date: 08/18/13 0:46:00, Stop date: 08/18/13 0:46:00Do not exceed 4gm/day of acetaminop hen. (Same as: Anthony ) [place] 2012-09 No Butch 1 tab, Memoria 10/325 oral 1-20 [place] Route: PO, l tablet 06:46: [facility] Drug Form: [place] 00 TAB, Dosing Weight 90.909, kg, ONCE, Start date: 08/18/13 0:46:00, Stop date: 08/18/13 0:46:00Do not exceed 4gm/day of acetaminop hen. (Same as: Anthony ) [place] 2012-09 No Butch 1 tab, Memoria 10/325 oral 1-20 [place] Route: PO, l tablet 06:46: [facility] Drug Form: H [place] 00 TAB, Dosing Weight 90.909, kg, ONCE, Start date: 08/18/13 0:46:00, Stop date: 08/18/13 0:46:00Do not exceed 4gm/day of acetaminop hen. (Same as: Anthony ) [place] 2012-09 No Butch 1 tab, Memoria 10/325 oral 1-20 [place] Route: PO, l tablet 06:46: [facility] Drug Form: H [place] 00 TAB, Dosing Weight 90.909, kg, ONCE, Start date: 08/18/13 0:46:00, Stop date: 08/18/13 0:46:00Do not exceed 4gm/day of acetaminop hen. (Same as: Anthony ) [place] 2012-09 No Butch 1 tab, Memoria 10/325 oral 1-20 [place] Route: PO, l tablet 06:46: [facility] Drug Form: [place] 00 TAB, Dosing Weight 90.909, kg, ONCE, Start date: 08/18/13 0:46:00, Stop date: 08/18/13 0:46:00Do not exceed 4gm/day of acetaminop hen. (Same as: Anthony ) [place] 2012-09 No Butch 1 tab, Memoria 10/325 oral 1-20 [place] Route: PO, l tablet 06:46: Ryan Drug Form: H ermann 00 TAB, Dosing Weight 90.909, kg, ONCE, Start date: 08/18/13 0:46:00, Stop date: 08/18/13 0:46:00Do not exceed 4gm/day of acetaminop hen. (Same as: Anthony ) Anthony 2012-09 No Butch 1 tab, Memoria 10/325 oral 1-20 Patrick Route: PO, l tablet 06:46: Ryan Drug Form: H ermann 00 TAB, Dosing Weight 90.909, kg, ONCE, Start date: 08/18/13 0:46:00, Stop date: 08/18/13 0:46:00Do not exceed 4gm/day of acetaminop hen. (Same as: Anthony ) Robaxin 500 2012-09 Yes Juan 1,000 mg, Memoria mg oral 1-20 Isaac 2 tab, PO, l tablet 06:11: Inder QID, 40 [place] 13 tab, Substituti on Allowed Robaxin 500 2012-09 Yes Juan 1,000 mg, Memoria mg oral 1-20 Isaac 2 tab, PO, l tablet 06:11: Inder QID, 40 [place] 13 tab, Substituti on Allowed Robaxin 500 2012-09 Yes Juan 1,000 mg, Memoria mg oral 1-20 Isaac 2 tab, PO, l tablet 06:11: Inder QID, 40 [place] 13 tab, Substituti on Allowed Robaxin 500 2012-09 Yes Juan 1,000 mg, Memoria mg oral 1-20 Isaac 2 tab, PO, l tablet 06:11: Inder QID, 40 [place] 13 tab, Substituti on Allowed Robaxin 500 2012-09 Yes Juan 1,000 mg, Memoria mg oral 1-20 Isaac 2 tab, PO, l tablet 06:11: Inder QID, 40 [place] 13 tab, Substituti on Allowed Robaxin 500 2012-09 Yes Juan 1,000 mg, Memoria mg oral 1-20 Isaac 2 tab, PO, l tablet 06:11: Inder QID, 40 [place] 13 tab, Substituti on Allowed Robaxin 500 2012-09 Yes Juan 1,000 mg, Memoria mg oral 1-20 Isaac 2 tab, PO, l tablet 06:11: Inder QID, 40 [place] 13 tab, Substituti on Allowed Robaxin 500 2012-09 Yes Juan 1,000 mg, Memoria mg oral 1-20 Isaac 2 tab, PO, l tablet 06:11: Inder QID, 40 [place] 13 tab, Substituti on Allowed Robaxin 500 2012-09 Yes Juan 1,000 mg, Memoria mg oral 1-20 Isaac 2 tab, PO, l tablet 06:11: Inder QID, 40 [place] 13 tab, Substituti on Allowed Robaxin 500 2012-09 Yes Juan 1,000 mg, Memoria mg oral 1-20 Isaac 2 tab, PO, l tablet 06:11: Inder QID, 40 [place] 13 tab, Substituti on Allowed Robaxin 500 2012-09 Yes Juan 1,000 mg, Memoria mg oral 1-20 Isaac 2 tab, PO, l tablet 06:11: Inder QID, 40 [place] 13 tab, Substituti on Allowed Robaxin 500 2012-09 Yes Juan 1,000 mg, Memoria mg oral 1-20 Isaac 2 tab, PO, l tablet 06:11: Inder QID, 40 [place] 13 tab, Substituti on Allowed Robaxin 500 2012-09 Yes Juan 1,000 mg, Memoria mg oral 1-20 Isaac 2 tab, PO, l tablet 06:11: Inder QID, 40 [place] 13 tab, Substituti on Allowed Robaxin 500 2012-09 Yes Juan 1,000 mg, Memoria mg oral 1-20 Isaac 2 tab, PO, l tablet 06:11: Inder QID, 40 [place] 13 tab, Substituti on Allowed Robaxin 500 2012-09 Yes Juan 1,000 mg, Memoria mg oral 1-20 Isaac 2 tab, PO, l tablet 06:11: Inder QID, 40 [place] 13 tab, Substituti on Allowed tramadol 50 2012-09 Yes Juan 50 mg, 1 Memoria mg oral 1-20 Isaac tab, PO, l tablet 06:11: Inder Q4H, PRN, Shobha nn 04 60 tab, Pain, Substituti on Allowed, TAB tramadol 50 2012-09 Yes Juan 50 mg, 1 Memoria mg oral 1-20 Isaac tab, PO, l tablet 06:11: Inder Q4H, PRN, Shobha nn 04 60 tab, Pain, Substituti on Allowed, TAB tramadol 50 2012-09 Yes Juan 50 mg, 1 Memoria mg oral 1-20 Isaac tab, PO, l tablet 06:11: Inder Q4H, PRN, Shobha nn 04 60 tab, Pain, Substituti on Allowed, TAB tramadol 50 2012-09 Yes Juan 50 mg, 1 Memoria mg oral 1-20 Isaac tab, PO, l tablet 06:11: Inder Q4H, PRN, Shobha nn 04 60 tab, Pain, Substituti on Allowed, TAB tramadol 50 2012-09 Yes Juan 50 mg, 1 Memoria mg oral 1-20 Isaac tab, PO, l tablet 06:11: Inder Q4H, PRN, Shobha nn 04 60 tab, Pain, Substituti on Allowed, TAB tramadol 50 2012-09 Yes Juan 50 mg, 1 Memoria mg oral 1-20 Isaac tab, PO, l tablet 06:11: Inder Q4H, PRN, Shobha nn 04 60 tab, Pain, Substituti on Allowed, TAB tramadol 50 2012-09 Yes Juan 50 mg, 1 Memoria mg oral 1-20 Isaac tab, PO, l tablet 06:11: Inder Q4H, PRN, Shobha nn 04 60 tab, Pain, Substituti on Allowed, TAB tramadol 50 2012-09 Yes Juan 50 mg, 1 Memoria mg oral 1-20 Isaac tab, PO, l tablet 06:11: Inder Q4H, PRN, Shobha nn 04 60 tab, Pain, Substituti on Allowed, TAB tramadol 50 2012-09 Yes Juan 50 mg, 1 Memoria mg oral 1-20 Isaac tab, PO, l tablet 06:11: Inder Q4H, PRN, Shobha nn 04 60 tab, Pain, Substituti on Allowed, TAB tramadol 50 2012-09 Yes Juan 50 mg, 1 Memoria mg oral 1-20 Isaac tab, PO, l tablet 06:11: Inder Q4H, PRN, Shobha nn 04 60 tab, Pain, Substituti on Allowed, TAB tramadol 50 2012-09 Yes Juan 50 mg, 1 Memoria mg oral 1-20 Isaac tab, PO, l tablet 06:11: Inder Q4H, PRN, Shobha nn 04 60 tab, Pain, Substituti on Allowed, TAB tramadol 50 2012-09 Yes Juan 50 mg, 1 Memoria mg oral 1-20 Isaac tab, PO, l tablet 06:11: Inder Q4H, PRN, Shobha nn 04 60 tab, Pain, Substituti on Allowed, TAB tramadol 50 2012-09 Yes Juan 50 mg, 1 Memoria mg oral 1-20 Isaac tab, PO, l tablet 06:11: Inder Q4H, PRN, Shobha nn 04 60 tab, Pain, Substituti on Allowed, TAB tramadol 50 2012-09 Yes Juan 50 mg, 1 Memoria mg oral 1-20 Isaac tab, PO, l tablet 06:11: Inder Q4H, PRN, Shobha nn 04 60 tab, Pain, Substituti on Allowed, TAB tramadol 50 2012-09 Yes Juan 50 mg, 1 Memoria mg oral 1-20 Isaac tab, PO, l tablet 06:11: Inder Q4H, PRN, Shobha nn 04 60 tab, Pain, Substituti on Allowed, TAB tramadol 50 2012-09 Yes Juan 50 mg, 1 Memoria mg oral 1-20 Isaac tab, PO, l tablet 05:38: Inder Q4H, PRN, Shobha nn 09 60 tab, Pain, Substituti on Allowed, TAB tramadol 50 2012-09 Yes Juan 50 mg, 1 Memoria mg oral 1-20 Isaac tab, PO, l tablet 05:38: Inder Q4H, PRN, Shobha nn 09 60 tab, Pain, Substituti on Allowed, TAB tramadol 50 2012-09 Yes Juan 50 mg, 1 Memoria mg oral 1-20 Isaac tab, PO, l tablet 05:38: Inder Q4H, PRN, Shobha nn 09 60 tab, Pain, Substituti on Allowed, TAB tramadol 50 2012-09 Yes Juan 50 mg, 1 Memoria mg oral 1-20 Isaac tab, PO, l tablet 05:38: Inder Q4H, PRN, Shobha nn 09 60 tab, Pain, Substituti on Allowed, TAB tramadol 50 2012-09 Yes Juan 50 mg, 1 Memoria mg oral 1-20 Isaac tab, PO, l tablet 05:38: Inder Q4H, PRN, Shobha nn 09 60 tab, Pain, Substituti on Allowed, TAB tramadol 50 2012-09 Yes Juan 50 mg, 1 Memoria mg oral 1-20 Isaac tab, PO, l tablet 05:38: Inedr Q4H, PRN, Shobha nn 09 60 tab, Pain, Substituti on Allowed, TAB tramadol 50 2012-09 Yes Juan 50 mg, 1 Memoria mg oral 1-20 Isaac tab, PO, l tablet 05:38: Inder Q4H, PRN, Shobha nn 09 60 tab, Pain, Substituti on Allowed, TAB tramadol 50 2012-09 Yes Juan 50 mg, 1 Memoria mg oral 1-20 Isaac tab, PO, l tablet 05:38: Inder Q4H, PRN, Shobha nn 09 60 tab, Pain, Substituti on Allowed, TAB tramadol 50 2012-09 Yes Juan 50 mg, 1 Memoria mg oral 1-20 Isaac tab, PO, l tablet 05:38: Inder Q4H, PRN, Shobha nn 09 60 tab, Pain, Substituti on Allowed, TAB tramadol 50 2012-09 Yes Juan 50 mg, 1 Memoria mg oral 1-20 Isaac tab, PO, l tablet 05:38: Inder Q4H, PRN, Shobha nn 09 60 tab, Pain, Substituti on Allowed, TAB tramadol 50 2012-09 Yes Juan 50 mg, 1 Memoria mg oral 1-20 Isaac tab, PO, l tablet 05:38: Inder Q4H, PRN, Shobha nn 09 60 tab, Pain, Substituti on Allowed, TAB tramadol 50 2012-09 Yes Juan 50 mg, 1 Memoria mg oral 1-20 Isaac tab, PO, l tablet 05:38: Inder Q4H, PRN, Shobha nn 09 60 tab, Pain, Substituti on Allowed, TAB tramadol 50 2012-09 Yes Juan 50 mg, 1 Memoria mg oral 1-20 Isaac tab, PO, l tablet 05:38: Inder Q4H, PRN, Shobha nn 09 60 tab, Pain, Substituti on Allowed, TAB tramadol 50 2012-09 Yes Juan 50 mg, 1 Memoria mg oral 1-20 Isaac tab, PO, l tablet 05:38: Inder Q4H, PRN, Shobha nn 09 60 tab, Pain, Substituti on Allowed, TAB tramadol 50 2012-09 Yes Juan 50 mg, 1 Memoria mg oral 1-20 Isaac tab, PO, l tablet 05:38: Inder Q4H, PRN, Shobha nn 09 60 tab, Pain, Substituti on Allowed, TAB Robaxin 500 2012-09 Yes Juan 1,000 mg, Memoria mg oral 1-20 Isaac 2 tab, PO, l tablet 05:37: Inder QID, 40 [place] 50 tab, Substituti on Allowed Robaxin 500 2012-09 Yes Juan 1,000 mg, Memoria mg oral 1-20 Isaac 2 tab, PO, l tablet 05:37: Inder QID, 40 [place] 50 tab, Substituti on Allowed Robaxin 500 2012-09 Yes Juan 1,000 mg, Memoria mg oral 1-20 Isaac 2 tab, PO, l tablet 05:37: Inder QID, 40 [place] 50 tab, Substituti on Allowed Robaxin 500 2012-09 Yes Juan 1,000 mg, Memoria mg oral 1-20 Isaac 2 tab, PO, l tablet 05:37: Inder QID, 40 [place] 50 tab, Substituti on Allowed Robaxin 500 2012-09 Yes Juan 1,000 mg, Memoria mg oral 1-20 Isaac 2 tab, PO, l tablet 05:37: Inder QID, 40 [place] 50 tab, Substituti on Allowed Robaxin 500 2012-09 Yes Juan 1,000 mg, Memoria mg oral 1-20 Isaac 2 tab, PO, l tablet 05:37: Inder QID, 40 [place] 50 tab, Substituti on Allowed Robaxin 500 2012-09 Yes Juan 1,000 mg, Memoria mg oral 1-20 Isaac 2 tab, PO, l tablet 05:37: Inder QID, 40 [place] 50 tab, Substituti on Allowed Robaxin 500 2012-09 Yes Juan 1,000 mg, Memoria mg oral 1-20 Isaac 2 tab, PO, l tablet 05:37: Inder QID, 40 [place] 50 tab, Substituti on Allowed Robaxin 500 2012-09 Yes Juan 1,000 mg, Memoria mg oral 1-20 Isaac 2 tab, PO, l tablet 05:37: Inder QID, 40 [place] 50 tab, Substituti on Allowed Robaxin 500 2012-09 Yes Juan 1,000 mg, Memoria mg oral 1-20 Isaac 2 tab, PO, l tablet 05:37: Inder QID, 40 [place] 50 tab, Substituti on Allowed Robaxin 500 2012-09 Yes Juan 1,000 mg, Memoria mg oral 1-20 Isaac 2 tab, PO, l tablet 05:37: Inder QID, 40 [place] 50 tab, Substituti on Allowed Robaxin 500 2012-09 Yes Juan 1,000 mg, Memoria mg oral 1-20 Isaac 2 tab, PO, l tablet 05:37: Inder QID, 40 [place] 50 tab, Substituti on Allowed Robaxin 500 2012-09 Yes Juan 1,000 mg, Memoria mg oral 1-20 Isaac 2 tab, PO, l tablet 05:37: Inder QID, 40 [place] 50 tab, Substituti on Allowed Robaxin 500 2012-09 Yes Juan 1,000 mg, Memoria mg oral 1-20 Isaac 2 tab, PO, l tablet 05:37: Inder QID, 40 [place] 50 tab, Substituti on Allowed Robaxin 500 2012-09 Yes Juan 1,000 mg, Memoria mg oral 1-20 Isaac 2 tab, PO, l tablet 05:37: Inder QID, 40 [place] 50 tab, Substituti on Allowed Robaxin 500 2012-09 Yes Juan 1,000 mg, Memoria mg oral 1-20 Isaac 2 tab, PO, l tablet 05:34: Inder QID, 40 [place] 36 tab, Substituti on Allowed Robaxin 500 2012-09 Yes Juan 1,000 mg, Memoria mg oral 1-20 Isaac 2 tab, PO, l tablet 05:34: Inder QID, 40 [place] 36 tab, Substituti on Allowed Robaxin 500 2012-09 Yes Juan 1,000 mg, Memoria mg oral 1-20 Isaac 2 tab, PO, l tablet 05:34: Inder QID, 40 [place] 36 tab, Substituti on Allowed Robaxin 500 2012-09 Yes Juan 1,000 mg, Memoria mg oral 1-20 Isaac 2 tab, PO, l tablet 05:34: Inder QID, 40 [place] 36 tab, Substituti on Allowed Robaxin 500 2012-09 Yes Juan 1,000 mg, Memoria mg oral 1-20 Isaac 2 tab, PO, l tablet 05:34: Inder QID, 40 [place] 36 tab, Substituti on Allowed Robaxin 500 2012-09 Yes Juan 1,000 mg, Memoria mg oral 1-20 Isaac 2 tab, PO, l tablet 05:34: Inder QID, 40 [place] 36 tab, Substituti on Allowed Robaxin 500 2012-09 Yes Juan 1,000 mg, Memoria mg oral 1-20 Isaac 2 tab, PO, l tablet 05:34: Inder QID, 40 [place] 36 tab, Substituti on Allowed Robaxin 500 2012-09 Yes Juan 1,000 mg, Memoria mg oral 1-20 Isaac 2 tab, PO, l tablet 05:34: Inder QID, 40 [place] 36 tab, Substituti on Allowed Robaxin 500 2012-09 Yes Juan 1,000 mg, Memoria mg oral 1-20 Isaac 2 tab, PO, l tablet 05:34: Inder QID, 40 [place] 36 tab, Substituti on Allowed Robaxin 500 2012-09 Yes Juan 1,000 mg, Memoria mg oral 1-20 Isaac 2 tab, PO, l tablet 05:34: Inder QID, 40 [place] 36 tab, Substituti on Allowed Robaxin 500 2012-09 Yes Juan 1,000 mg, Memoria mg oral 1-20 Isaac 2 tab, PO, l tablet 05:34: Inder QID, 40 [place] 36 tab, Substituti on Allowed Robaxin 500 2012-09 Yes Juan 1,000 mg, Memoria mg oral 1-20 Isaac 2 tab, PO, l tablet 05:34: Inder QID, 40 [place] 36 tab, Substituti on Allowed Robaxin 500 2012-09 Yes Juan 1,000 mg, Memoria mg oral 1-20 Isaac 2 tab, PO, l tablet 05:34: Inder QID, 40 [place] 36 tab, Substituti on Allowed Robaxin 500 2012-09 Yes Juan 1,000 mg, Memoria mg oral 1-20 Isaac 2 tab, PO, l tablet 05:34: Inder QID, 40 [place] 36 tab, Substituti on Allowed Robaxin 500 2012-09 Yes Juan 1,000 mg, Memoria mg oral 1-20 Isaac 2 tab, PO, l tablet 05:34: Inder QID, 40 [place] 36 tab, Substituti on Allowed tramadol 50 2012-09 Yes Juan 50 mg, 1 Memoria mg oral 1-20 Isaac tab, PO, l tablet 05:34: Inder Q4H, PRN, Shobha nn 23 60 tab, Pain, Substituti on Allowed, TAB tramadol 50 2012-09 Yes Juan 50 mg, 1 Memoria mg oral 1-20 Isaac tab, PO, l tablet 05:34: Inder Q4H, PRN, Shobha nn 23 60 tab, Pain, Substituti on Allowed, TAB tramadol 50 2012-09 Yes Juan 50 mg, 1 Memoria mg oral 1-20 Isaac tab, PO, l tablet 05:34: Inder Q4H, PRN, Shobha nn 23 60 tab, Pain, Substituti on Allowed, TAB tramadol 50 2012-09 Yes Juan 50 mg, 1 Memoria mg oral 1-20 Isaac tab, PO, l tablet 05:34: Inder Q4H, PRN, Shobha nn 23 60 tab, Pain, Substituti on Allowed, TAB tramadol 50 2012-09 Yes Juan 50 mg, 1 Memoria mg oral 1-20 Isaac tab, PO, l tablet 05:34: Inder Q4H, PRN, Shobha nn 23 60 tab, Pain, Substituti on Allowed, TAB tramadol 50 2012-09 Yes Juan 50 mg, 1 Memoria mg oral 1-20 Isaac tab, PO, l tablet 05:34: Idner Q4H, PRN, Shobha nn 23 60 tab, Pain, Substituti on Allowed, TAB tramadol 50 2012-09 Yes Juan 50 mg, 1 Memoria mg oral 1-20 Isaac tab, PO, l tablet 05:34: Inder Q4H, PRN, Shobha nn 23 60 tab, Pain, Substituti on Allowed, TAB tramadol 50 2012-09 Yes Juan 50 mg, 1 Memoria mg oral 1-20 Isaac tab, PO, l tablet 05:34: Inder Q4H, PRN, Shobha nn 23 60 tab, Pain, Substituti on Allowed, TAB tramadol 50 2012-09 Yes Juan 50 mg, 1 Memoria mg oral 1-20 Isaac tab, PO, l tablet 05:34: Inder Q4H, PRN, Shobha nn 23 60 tab, Pain, Substituti on Allowed, TAB tramadol 50 2012-09 Yes Juan 50 mg, 1 Memoria mg oral 1-20 [place] tab, PO, l tablet 05:34: Inder Q4H, PRN, Shobha nn 23 60 tab, Pain, Substituti on Allowed, TAB tramadol 50 2012-09 Yes Juan 50 mg, 1 Memoria mg oral 1-20 Isaac tab, PO, l tablet 05:34: Inder Q4H, PRN, Shobha nn 23 60 tab, Pain, Substituti on Allowed, TAB tramadol 50 2012-09 Yes Juan 50 mg, 1 Memoria mg oral 1-20 Isaac tab, PO, l tablet 05:34: Inder Q4H, PRN, Shobha nn 23 60 tab, Pain, Substituti on Allowed, TAB tramadol 50 2012-09 Yes Juan 50 mg, 1 Memoria mg oral 1-20 Isaac tab, PO, l tablet 05:34: Inder Q4H, PRN, Shobha nn 23 60 tab, Pain, Substituti on Allowed, TAB tramadol 50 2012-09 Yes Juan 50 mg, 1 Memoria mg oral 1-20 Isaac tab, PO, l tablet 05:34: Inder Q4H, PRN, Shobha nn 23 60 tab, Pain, Substituti on Allowed, TAB tramadol 50 2012-09 Yes Juan 50 mg, 1 Memoria mg oral 1-20 Isaac tab, PO, l tablet 05:34: Inder Q4H, PRN, Shobha nn 23 60 tab, Pain, Substituti on Allowed, TAB Robaxin 500 2012-09 Yes Juan 1,000 mg, Memoria mg oral 1-20 Isaac 2 tab, PO, l tablet 05:29: Inder QID, 40 [place] 52 tab, Substituti on Allowed Robaxin 500 2012-09 Yes Juan 1,000 mg, Memoria mg oral 1-20 Isaac 2 tab, PO, l tablet 05:29: Inder QID, 40 [place] 52 tab, Substituti on Allowed Robaxin 500 2012-09 Yes Juan 1,000 mg, Memoria mg oral 1-20 Isaac 2 tab, PO, l tablet 05:29: Inder QID, 40 [place] 52 tab, Substituti on Allowed Robaxin 500 2012-09 Yes Juan 1,000 mg, Memoria mg oral 1-20 Isaac 2 tab, PO, l tablet 05:29: Inder QID, 40 [place] 52 tab, Substituti on Allowed Robaxin 500 2012-09 Yes Juan 1,000 mg, Memoria mg oral 1-20 Isaac 2 tab, PO, l tablet 05:29: Inder QID, 40 [place] 52 tab, Substituti on Allowed Robaxin 500 2012-09 Yes Juan 1,000 mg, Memoria mg oral 1-20 Isaac 2 tab, PO, l tablet 05:29: Inder QID, 40 [place] 52 tab, Substituti on Allowed Robaxin 500 2012-09 Yes Juan 1,000 mg, Memoria mg oral 1-20 Isaac 2 tab, PO, l tablet 05:29: Inder QID, 40 [place] 52 tab, Substituti on Allowed Robaxin 500 2012-09 Yes Juan 1,000 mg, Memoria mg oral 1-20 Isaac 2 tab, PO, l tablet 05:29: Inder QID, 40 [place] 52 tab, Substituti on Allowed Robaxin 500 2012-09 Yes Juan 1,000 mg, Memoria mg oral 1-20 Isaac 2 tab, PO, l tablet 05:29: Inder QID, 40 [place] 52 tab, Substituti on Allowed Robaxin 500 2012-09 Yes Juan 1,000 mg, Memoria mg oral 1-20 Isaac 2 tab, PO, l tablet 05:29: Inder QID, 40 [place] 52 tab, Substituti on Allowed Robaxin 500 2012-09 Yes Juan 1,000 mg, Memoria mg oral 1-20 Isaac 2 tab, PO, l tablet 05:29: Inder QID, 40 [place] 52 tab, Substituti on Allowed Robaxin 500 2012-09 Yes Juan 1,000 mg, Memoria mg oral 1-20 Isaac 2 tab, PO, l tablet 05:29: Inder QID, 40 [place] 52 tab, Substituti on Allowed Robaxin 500 2012-09 Yes Juan 1,000 mg, Memoria mg oral 1-20 Isaac 2 tab, PO, l tablet 05:29: Inder QID, 40 [place] 52 tab, Substituti on Allowed Robaxin 500 2012-09 Yes Juan 1,000 mg, Memoria mg oral 1-20 Isaac 2 tab, PO, l tablet 05:29: Inder QID, 40 [place] 52 tab, Substituti on Allowed Robaxin 500 2012-09 Yes Juan 1,000 mg, Memoria mg oral 1-20 Isaac 2 tab, PO, l tablet 05:29: Inder QID, 40 [place] 52 tab, Substituti on Allowed tramadol 50 2012-09 Yes Juan 50 mg, 1 Memoria mg oral 1-20 Isaac tab, PO, l tablet 05:26: Inder Q4H, PRN, Shobha nn 44 60 tab, Pain, Substituti on Allowed, TAB tramadol 50 2012-09 Yes Juan 50 mg, 1 Memoria mg oral 1-20 Isaac tab, PO, l tablet 05:26: Inder Q4H, PRN, Shobha nn 44 60 tab, Pain, Substituti on Allowed, TAB tramadol 50 2012-09 Yes Juan 50 mg, 1 Memoria mg oral 1-20 Isaac tab, PO, l tablet 05:26: Inder Q4H, PRN, Shobha nn 44 60 tab, Pain, Substituti on Allowed, TAB tramadol 50 2012-09 Yes Juan 50 mg, 1 Memoria mg oral 1-20 Isaac tab, PO, l tablet 05:26: Inder Q4H, PRN, Shobha nn 44 60 tab, Pain, Substituti on Allowed, TAB tramadol 50 2012-09 Yes Juan 50 mg, 1 Memoria mg oral 1-20 Isaac tab, PO, l tablet 05:26: Inder Q4H, PRN, Shobha nn 44 60 tab, Pain, Substituti on Allowed, TAB tramadol 50 2012-09 Yes Juan 50 mg, 1 Memoria mg oral 1-20 Isaac tab, PO, l tablet 05:26: Inder Q4H, PRN, Shobha nn 44 60 tab, Pain, Substituti on Allowed, TAB tramadol 50 2012-09 Yes Juan 50 mg, 1 Memoria mg oral 1-20 Isaac tab, PO, l tablet 05:26: Inder Q4H, PRN, Shobha nn 44 60 tab, Pain, Substituti on Allowed, TAB tramadol 50 2012-09 Yes Juan 50 mg, 1 Memoria mg oral 1-20 Isaac tab, PO, l tablet 05:26: Inder Q4H, PRN, Shobha nn 44 60 tab, Pain, Substituti on Allowed, TAB tramadol 50 2012-09 Yes Juan 50 mg, 1 Memoria mg oral 1-20 Isaac tab, PO, l tablet 05:26: Inder Q4H, PRN, Shobha nn 44 60 tab, Pain, Substituti on Allowed, TAB tramadol 50 2012-09 Yes Juan 50 mg, 1 Memoria mg oral 1-20 Isaac tab, PO, l tablet 05:26: Inder Q4H, PRN, Shobha nn 44 60 tab, Pain, Substituti on Allowed, TAB tramadol 50 2012-09 Yes Juan 50 mg, 1 Memoria mg oral 1-20 Isaac tab, PO, l tablet 05:26: Inder Q4H, PRN, Shobha nn 44 60 tab, Pain, Substituti on Allowed, TAB tramadol 50 2012-09 Yes Juan 50 mg, 1 Memoria mg oral 1-20 [place] tab, PO, l tablet 05:26: Inder Q4H, PRN, Shobha nn 44 60 tab, Pain, Substituti on Allowed, TAB tramadol 50 2012-09 Yes Juan 50 mg, 1 Memoria mg oral 1-20 Isaac tab, PO, l tablet 05:26: Inder Q4H, PRN, Shobha nn 44 60 tab, Pain, Substituti on Allowed, TAB tramadol 50 2012-09 Yes Juan 50 mg, 1 Memoria mg oral 1-20 Isaac tab, PO, l tablet 05:26: Inder Q4H, PRN, Shobha nn 44 60 tab, Pain, Substituti on Allowed, TAB tramadol 50 2012-09 Yes Juan 50 mg, 1 Memoria mg oral 1-20 Isaac tab, PO, l tablet 05:26: Inder Q4H, PRN, Shobha nn 44 60 tab, Pain, Substituti on Allowed, TAB tramadol 50 2012-09 Yes Juan 50 mg, 1 Memoria mg oral 1-20 Isaac tab, PO, l tablet 05:26: Inder Q4H, PRN, Shobha nn 12 60 tab, Pain, Substituti on Allowed, TAB tramadol 50 2012-09 Yes Juan 50 mg, 1 Memoria mg oral 1-20 Isaac tab, PO, l tablet 05:26: Inder Q4H, PRN, Shobha nn 12 60 tab, Pain, Substituti on Allowed, TAB tramadol 50 2012-09 Yes Juan 50 mg, 1 Memoria mg oral 1-20 Isaac tab, PO, l tablet 05:26: Inder Q4H, PRN, Shobha nn 12 60 tab, Pain, Substituti on Allowed, TAB tramadol 50 2012-09 Yes Juan 50 mg, 1 Memoria mg oral 1-20 Isaac tab, PO, l tablet 05:26: Inder Q4H, PRN, Shobha nn 12 60 tab, Pain, Substituti on Allowed, TAB tramadol 50 2012-09 Yes Juan 50 mg, 1 Memoria mg oral 1-20 Isaac tab, PO, l tablet 05:26: Inder Q4H, PRN, Shobha nn 12 60 tab, Pain, Substituti on Allowed, TAB tramadol 50 2012-09 Yes Juan 50 mg, 1 Memoria mg oral 1-20 Isaac tab, PO, l tablet 05:26: Inder Q4H, PRN, Shobha nn 12 60 tab, Pain, Substituti on Allowed, TAB tramadol 50 2012-09 Yes Juan 50 mg, 1 Memoria mg oral 1-20 Isaac tab, PO, l tablet 05:26: Inder Q4H, PRN, Shobha nn 12 60 tab, Pain, Substituti on Allowed, TAB tramadol 50 2012-09 Yes Juan 50 mg, 1 Memoria mg oral 1-20 Isaac tab, PO, l tablet 05:26: Inder Q4H, PRN, Shobha nn 12 60 tab, Pain, Substituti on Allowed, TAB tramadol 50 2012-09 Yes Juan 50 mg, 1 Memoria mg oral 1-20 Isaac tab, PO, l tablet 05:26: Inder Q4H, PRN, Shobha nn 12 60 tab, Pain, Substituti on Allowed, TAB tramadol 50 2012-09 Yes Juan 50 mg, 1 Memoria mg oral 1-20 Isaac tab, PO, l tablet 05:26: Inder Q4H, PRN, Shobha nn 12 60 tab, Pain, Substituti on Allowed, TAB tramadol 50 2012-09 Yes Juan 50 mg, 1 Memoria mg oral 1-20 Isaac tab, PO, l tablet 05:26: Inder Q4H, PRN, Shobha nn 12 60 tab, Pain, Substituti on Allowed, TAB tramadol 50 2012-09 Yes Juan 50 mg, 1 Memoria mg oral 1-20 Isaac tab, PO, l tablet 05:26: Inder Q4H, PRN, Shobha nn 12 60 tab, Pain, Substituti on Allowed, TAB tramadol 50 2012-09 Yes Juan 50 mg, 1 Memoria mg oral 1-20 Isaac tab, PO, l tablet 05:26: Inder Q4H, PRN, Shobha nn 12 60 tab, Pain, Substituti on Allowed, TAB tramadol 50 2012-09 Yes Juan 50 mg, 1 Memoria mg oral 1-20 Isaac tab, PO, l tablet 05:26: Inder Q4H, PRN, Shobha nn 12 60 tab, Pain, Substituti on Allowed, TAB tramadol 50 2012-09 Yes Juan 50 mg, 1 Memoria mg oral 1-20 Isaac tab, PO, l tablet 05:26: Inder Q4H, PRN, Shobha nn 12 60 tab, Pain, Substituti on Allowed, TAB morphine 2012-09 No Juan 4 mg, Memor ia Sulfate 1-20 Isaac Route: l 04:00: Inder IVP, Drug [place] form: INJ, ONCE, Dosing Weight 90.909, kg, Priority: STAT, Start date: 08/17/13 22:00:00, Stop date: 08/17/13 22:00:00 morphine 2012-09 No Juan 4 mg, Memor ia Sulfate 1-20 Isaac Route: l 04:00: Inder IVP, Drug [place] form: INJ, ONCE, Dosing Weight 90.909, kg, Priority: STAT, Start date: 08/17/13 22:00:00, Stop date: 08/17/13 22:00:00 morphine 2012-09 No Juan 4 mg, Memor ia Sulfate 1-20 Isaac Route: l 04:00: Inder IVP, Drug [place] form: INJ, ONCE, Dosing Weight 90.909, kg, Priority: STAT, Start date: 08/17/13 22:00:00, Stop date: 08/17/13 22:00:00 morphine 2012-09 No Juan 4 mg, Memor ia Sulfate 1-20 Isaac Route: l 04:00: Inder IVP, Drug [place] form: INJ, ONCE, Dosing Weight 90.909, kg, Priority: STAT, Start date: 08/17/13 22:00:00, Stop date: 08/17/13 22:00:00 morphine 2012-09 No Juan 4 mg, Memor ia Sulfate 1-20 Isaac Route: l 04:00: Inder IVP, Drug [place] 00 form: INJ, ONCE, Dosing Weight 90.909, kg, Priority: STAT, Start date: 08/17/13 22:00:00, Stop date: 08/17/13 22:00:00 morphine 2012-09 No Juan 4 mg, Memor ia Sulfate 1-20 Isaac Route: l 04:00: Inder IVP, Drug [place] 00 form: INJ, ONCE, Dosing Weight 90.909, kg, Priority: STAT, Start date: 08/17/13 22:00:00, Stop date: 08/17/13 22:00:00 morphine 2012-09 No Juan 4 mg, Memor ia Sulfate 1-20 Isaac Route: l 04:00: Inder IVP, Drug [place] 00 form: INJ, ONCE, Dosing Weight 90.909, kg, Priority: STAT, Start date: 08/17/13 22:00:00, Stop date: 08/17/13 22:00:00 morphine 2012-09 No Juan 4 mg, Memor ia Sulfate 1-20 Isaac Route: l 04:00: Inder IVP, Drug [place] 00 form: INJ, ONCE, Dosing Weight 90.909, kg, Priority: STAT, Start date: 08/17/13 22:00:00, Stop date: 08/17/13 22:00:00 morphine 2012-09 No Juan 4 mg, Memor ia Sulfate 1-20 Isaac Route: l 04:00: Inder IVP, Drug [place] 00 form: INJ, ONCE, Dosing Weight 90.909, kg, Priority: STAT, Start date: 08/17/13 22:00:00, Stop date: 08/17/13 22:00:00 morphine 2012-09 No Juan 4 mg, Memor ia Sulfate 1-20 Isaac Route: l 04:00: Inder IVP, Drug [place] 00 form: INJ, ONCE, Dosing Weight 90.909, kg, Priority: STAT, Start date: 08/17/13 22:00:00, Stop date: 08/17/13 22:00:00 morphine 2012-09 No Juan 4 mg, Memor ia Sulfate 1-20 Isaac Route: l 04:00: Inder IVP, Drug [place] 00 form: INJ, ONCE, Dosing Weight 90.909, kg, Priority: STAT, Start date: 08/17/13 22:00:00, Stop date: 08/17/13 22:00:00 morphine 2012-09 No Juan 4 mg, Memor ia Sulfate 1-20 Isaac Route: l 04:00: Inder IVP, Drug [place] 00 form: INJ, ONCE, Dosing Weight 90.909, kg, Priority: STAT, Start date: 08/17/13 22:00:00, Stop date: 08/17/13 22:00:00 morphine 2012-09 No Juan 4 mg, Memor ia Sulfate 1-20 Isaac Route: l 04:00: Inder IVP, Drug [place] 00 form: INJ, ONCE, Dosing Weight 90.909, kg, Priority: STAT, Start date: 08/17/13 22:00:00, Stop date: 08/17/13 22:00:00 morphine 2012-09 No Juan 4 mg, Memor ia Sulfate 1-20 Isaac Route: l 04:00: Inder IVP, Drug [place] 00 form: INJ, ONCE, Dosing Weight 90.909, kg, Priority: STAT, Start date: 08/17/13 22:00:00, Stop date: 08/17/13 22:00:00 morphine 2012-09 No Juan 4 mg, Memor ia Sulfate 1-20 Isaac Route: l 04:00: Inder IVP, Drug [place] 00 form: INJ, ONCE, Dosing Weight 90.909, kg, Priority: STAT, Start date: 08/17/13 22:00:00, Stop date: 08/17/13 22:00:00 NS (Bolus) 2012-09 No Juan 1,000 mL, Memoria IV 1000 mL 1-20 Isaac Rate: l 03:42: Inder 1,000 [place] 00 ml/hr, Infuse over: 1 hr, Route: IV, Dosing Weight 90.909 kg, Total Volume: 1,000, Priority: STAT, Start date: 08/17/13 21:42:00, Duration: 1 doses or times, Stop date: 08/17/13 22:41:00, Bolus DoseBolus Dose NS (Bolus) 2012-09 No Juan 1,000 mL, Memoria IV 1000 mL 1-20 Isaac Rate: l 03:42: Inder 1,000 [place] 00 ml/hr, Infuse over: 1 hr, Route: IV, Dosing Weight 90.909 kg, Total Volume: 1,000, Priority: STAT, Start date: 08/17/13 21:42:00, Duration: 1 doses or times, Stop date: 08/17/13 22:41:00, Bolus DoseBolus Dose NS (Bolus) 2012-09 No Juan 1,000 mL, Memoria IV 1000 mL 1-20 Isaac Rate: l 03:42: Inder 1,000 [place] 00 ml/hr, Infuse over: 1 hr, Route: IV, Dosing Weight 90.909 kg, Total Volume: 1,000, Priority: STAT, Start date: 08/17/13 21:42:00, Duration: 1 doses or times, Stop date: 08/17/13 22:41:00, Bolus DoseBolus Dose NS (Bolus) 2012-09 No Juan 1,000 mL, Memoria IV 1000 mL 1-20 Isaac Rate: l 03:42: Inder 1,000 [place] 00 ml/hr, Infuse over: 1 hr, Route: IV, Dosing Weight 90.909 kg, Total Volume: 1,000, Priority: STAT, Start date: 08/17/13 21:42:00, Duration: 1 doses or times, Stop date: 08/17/13 22:41:00, Bolus DoseBolus Dose NS (Bolus) 2012-09 No Juan 1,000 mL, Memoria IV 1000 mL 1-20 Isaac Rate: l 03:42: Inder 1,000 [place] 00 ml/hr, Infuse over: 1 hr, Route: IV, Dosing Weight 90.909 kg, Total Volume: 1,000, Priority: STAT, Start date: 08/17/13 21:42:00, Duration: 1 doses or times, Stop date: 08/17/13 22:41:00, Bolus DoseBolus Dose NS (Bolus) 2012-09 No Juan 1,000 mL, Memoria IV 1000 mL 1-20 Isaac Rate: l 03:42: Inder 1,000 [place] 00 ml/hr, Infuse over: 1 hr, Route: IV, Dosing Weight 90.909 kg, Total Volume: 1,000, Priority: STAT, Start date: 08/17/13 21:42:00, Duration: 1 doses or times, Stop date: 08/17/13 22:41:00, Bolus DoseBolus Dose NS (Bolus) 2012-09 No Juan 1,000 mL, Memoria IV 1000 mL 1-20 Isaac Rate: l 03:42: Inder 1,000 [place] 00 ml/hr, Infuse over: 1 hr, Route: IV, Dosing Weight 90.909 kg, Total Volume: 1,000, Priority: STAT, Start date: 08/17/13 21:42:00, Duration: 1 doses or times, Stop date: 08/17/13 22:41:00, Bolus DoseBolus Dose NS (Bolus) 2012-09 No Juan 1,000 mL, Memoria IV 1000 mL 1-20 Isaac Rate: l 03:42: Inder 1,000 [place] 00 ml/hr, Infuse over: 1 hr, Route: IV, Dosing Weight 90.909 kg, Total Volume: 1,000, Priority: STAT, Start date: 08/17/13 21:42:00, Duration: 1 doses or times, Stop date: 08/17/13 22:41:00, Bolus DoseBolus Dose NS (Bolus) 2012-09 No Juan 1,000 mL, Memoria IV 1000 mL 1-20 Isaac Rate: l 03:42: Inder 1,000 [place] 00 ml/hr, Infuse over: 1 hr, Route: IV, Dosing Weight 90.909 kg, Total Volume: 1,000, Priority: STAT, Start date: 08/17/13 21:42:00, Duration: 1 doses or times, Stop date: 08/17/13 22:41:00, Bolus DoseBolus Dose NS (Bolus) 2012-09 No Juan 1,000 mL, Memoria IV 1000 mL 1-20 Isaac Rate: l 03:42: Inder 1,000 [place] 00 ml/hr, Infuse over: 1 hr, Route: IV, Dosing Weight 90.909 kg, Total Volume: 1,000, Priority: STAT, Start date: 08/17/13 21:42:00, Duration: 1 doses or times, Stop date: 08/17/13 22:41:00, Bolus DoseBolus Dose NS (Bolus) 2012-09 No Juan 1,000 mL, Memoria IV 1000 mL 1-20 Isaac Rate: l 03:42: Inder 1,000 [place] 00 ml/hr, Infuse over: 1 hr, Route: IV, Dosing Weight 90.909 kg, Total Volume: 1,000, Priority: STAT, Start date: 08/17/13 21:42:00, Duration: 1 doses or times, Stop date: 08/17/13 22:41:00, Bolus DoseBolus Dose NS (Bolus) 2012-09 No Juan 1,000 mL, Memoria IV 1000 mL 1-20 Isaac Rate: l 03:42: Inder 1,000 [place] 00 ml/hr, Infuse over: 1 hr, Route: IV, Dosing Weight 90.909 kg, Total Volume: 1,000, Priority: STAT, Start date: 08/17/13 21:42:00, Duration: 1 doses or times, Stop date: 08/17/13 22:41:00, Bolus DoseBolus Dose NS (Bolus) 2012-09 No Juan 1,000 mL, Memoria IV 1000 mL 1-20 Isaac Rate: l 03:42: Inder 1,000 [place] 00 ml/hr, Infuse over: 1 hr, Route: IV, Dosing Weight 90.909 kg, Total Volume: 1,000, Priority: STAT, Start date: 08/17/13 21:42:00, Duration: 1 doses or times, Stop date: 08/17/13 22:41:00, Bolus DoseBolus Dose NS (Bolus) 2012-09 No Juan 1,000 mL, Memoria IV 1000 mL 1-20 Isaac Rate: l 03:42: Inder 1,000 [place] 00 ml/hr, Infuse over: 1 hr, Route: IV, Dosing Weight 90.909 kg, Total Volume: 1,000, Priority: STAT, Start date: 08/17/13 21:42:00, Duration: 1 doses or times, Stop date: 08/17/13 22:41:00, Bolus DoseBolus Dose NS (Bolus) 2012-09 No Juan 1,000 mL, Memoria IV 1000 mL -20 Isaac Rate: l 03:42: Inder 1,000 [place] 00 ml/hr, Infuse over: 1 hr, Route: IV, Dosing Weight 90.909 kg, Total Volume: 1,000, Priority: STAT, Start date: 08/17/13 21:42:00, Duration: 1 doses or times, Stop date: 08/17/13 22:41:00, Bolus DoseBolus Dose Visipaque 2012-09 No Rin H 114 mL, Me moria 320mg/ml 10-18 [place] Route: l 02:33: IVP, Drug [place] Form: SOLN, Dosing Weight 90.909, kg, ONCALL, STAT, Start date: 08/17/13 20:33:00, Duration: 1 doses or times, Dose = 2.2ml/kg, Max dose = 100ml -- "To be infused by Radiology Staff ONLY"Dose = 2.2ml/kg, Max dose = 100ml -- "To be infused by Radiology Staff ONLY" Visipaque 2012-09 No Rin H 114 mL, Me moria 320mg/ml 10-18 [place] Route: l 02:33: IVP, Drug [place] Form: SOLN, Dosing Weight 90.909, kg, ONCALL, STAT, Start date: 08/17/13 20:33:00, Duration: 1 doses or times, Dose = 2.2ml/kg, Max dose = 100ml -- "To be infused by Radiology Staff ONLY"Dose = 2.2ml/kg, Max dose = 100ml -- "To be infused by Radiology Staff ONLY" Visipaque 2012-09 No Rin H 114 mL, Me moria 320mg/ml 10-18 [place] Route: l 02:33: IVP, Drug [place] Form: SOLN, Dosing Weight 90.909, kg, ONCALL, STAT, Start date: 08/17/13 20:33:00, Duration: 1 doses or times, Dose = 2.2ml/kg, Max dose = 100ml -- "To be infused by Radiology Staff ONLY"Dose = 2.2ml/kg, Max dose = 100ml -- "To be infused by Radiology Staff ONLY" Visipaque 2012-09 No Rin H 114 mL, Me moria 320mg/ml 10-18 [place] Route: l 02:33: IVP, Drug [place] Form: SOLN, Dosing Weight 90.909, kg, ONCALL, STAT, Start date: 08/17/13 20:33:00, Duration: 1 doses or times, Dose = 2.2ml/kg, Max dose = 100ml -- "To be infused by Radiology Staff ONLY"Dose = 2.2ml/kg, Max dose = 100ml -- "To be infused by Radiology Staff ONLY" Visipaque 2012-09 No Rin H 114 mL, Me moria 320mg/ml 10-18d Route: l 02:33: IVP, Drug [place] Form: SOLN, Dosing Weight 90.909, kg, ONCALL, STAT, Start date: 08/17/13 20:33:00, Duration: 1 doses or times, Dose = 2.2ml/kg, Max dose = 100ml -- "To be infused by Radiology Staff ONLY"Dose = 2.2ml/kg, Max dose = 100ml -- "To be infused by Radiology Staff ONLY" Visipaque 2012-09 No Rin H 114 mL, Me moria 320mg/ml 10-18d Route: l 02:33: IVP, Drug [place] Form: SOLN, Dosing Weight 90.909, kg, ONCALL, STAT, Start date: 08/17/13 20:33:00, Duration: 1 doses or times, Dose = 2.2ml/kg, Max dose = 100ml -- "To be infused by Radiology Staff ONLY"Dose = 2.2ml/kg, Max dose = 100ml -- "To be infused by Radiology Staff ONLY" Visipaque 2012-09 No Rin H 114 mL, Me moria 320mg/ml 10-18d Route: l 02:33: IVP, Drug [place] Form: SOLN, Dosing Weight 90.909, kg, ONCALL, STAT, Start date: 08/17/13 20:33:00, Duration: 1 doses or times, Dose = 2.2ml/kg, Max dose = 100ml -- "To be infused by Radiology Staff ONLY"Dose = 2.2ml/kg, Max dose = 100ml -- "To be infused by Radiology Staff ONLY" [facility] 2012-09 No Rin H 114 mL, Me moria 320mg/ml 10-18 [place] Route: l 02:33: IVP, Drug [place] Form: SOLN, Dosing Weight 90.909, kg, ONCALL, STAT, Start date: 08/17/13 20:33:00, Duration: 1 doses or times, Dose = 2.2ml/kg, Max dose = 100ml -- "To be infused by Radiology Staff ONLY"Dose = 2.2ml/kg, Max dose = 100ml -- "To be infused by Radiology Staff ONLY" [facility] 2012-09 No Rin H 114 mL, Me moria 320mg/ml 10-18d Route: l 02:33: IVP, Drug [place] Form: SOLN, Dosing Weight 90.909, kg, ONCALL, STAT, Start date: 08/17/13 20:33:00, Duration: 1 doses or times, Dose = 2.2ml/kg, Max dose = 100ml -- "To be infused by Radiology Staff ONLY"Dose = 2.2ml/kg, Max dose = 100ml -- "To be infused by Radiology Staff ONLY" [facility] 2012-09 No Rin H 114 mL, Me moria 320mg/ml 10-18d Route: l 02:33: IVP, Drug [place] Form: SOLN, Dosing Weight 90.909, kg, ONCALL, STAT, Start date: 08/17/13 20:33:00, Duration: 1 doses or times, Dose = 2.2ml/kg, Max dose = 100ml -- "To be infused by Radiology Staff ONLY"Dose = 2.2ml/kg, Max dose = 100ml -- "To be infused by Radiology Staff ONLY" [facility] 2012-09 No Rin H 114 mL, Me moria 320mg/ml 10-18d Route: l 02:33: IVP, Drug [place] Form: SOLN, Dosing Weight 90.909, kg, ONCALL, STAT, Start date: 08/17/13 20:33:00, Duration: 1 doses or times, Dose = 2.2ml/kg, Max dose = 100ml -- "To be infused by Radiology Staff ONLY"Dose = 2.2ml/kg, Max dose = 100ml -- "To be infused by Radiology Staff ONLY" [facility] 2012-09 No Rin H 114 mL, Me moria 320mg/ml 10-18 [place] Route: l 02:33: IVP, Drug [place] Form: SOLN, Dosing Weight 90.909, kg, ONCALL, STAT, Start date: 08/17/13 20:33:00, Duration: 1 doses or times, Dose = 2.2ml/kg, Max dose = 100ml -- "To be infused by Radiology Staff ONLY"Dose = 2.2ml/kg, Max dose = 100ml -- "To be infused by Radiology Staff ONLY" [facility] 2012-09 No Rin H 114 mL, Me moria 320mg/ml 10-18 [place] Route: l 02:33: IVP, Drug [place] Form: SOLN, Dosing Weight 90.909, kg, ONCALL, STAT, Start date: 08/17/13 20:33:00, Duration: 1 doses or times, Dose = 2.2ml/kg, Max dose = 100ml -- "To be infused by Radiology Staff ONLY"Dose = 2.2ml/kg, Max dose = 100ml -- "To be infused by Radiology Staff ONLY" [facility] 2012-09 No Rin H 114 mL, Me moria 320mg/ml 10-18 [place] Route: l 02:33: IVP, Drug [place] Form: SOLN, Dosing Weight 90.909, kg, ONCALL, STAT, Start date: 08/17/13 20:33:00, Duration: 1 doses or times, Dose = 2.2ml/kg, Max dose = 100ml -- "To be infused by Radiology Staff ONLY"Dose = 2.2ml/kg, Max dose = 100ml -- "To be infused by Radiology Staff ONLY" [facility] 2012-09 No Rin H 114 mL, Me moria 320mg/ml 10-18 [place] Route: l 02:33: IVP, Drug [place] Form: SOLN, Dosing Weight 90.909, kg, ONCALL, STAT, Start date: 08/17/13 20:33:00, Duration: 1 doses or times, Dose = 2.2ml/kg, Max dose = 100ml -- "To be infused by Radiology Staff ONLY"Dose = 2.2ml/kg, Max dose = 100ml -- "To be infused by Radiology Staff ONLY" Saline 2012-09 No Juan 5 mL, Memoria Flush 0.9% 1-20 Isaac Route: l 02:15: Inder MISC, Drug [place]al[place] n 00 Form: INJ, Dosing Weight 90.909, kg, PRN, PRN Line Flush, Administer at least once every 12 hours, Start date: 08/17/13 20:15:00, Duration: 30 day, Stop date: 09/16/13 20:14:00(S sahara as: BD Posiflush) ondansetron 2012-09 No Juan 4 mg, 2 Memoria 1-20 Isaac mL, Route: l 02:15: Inder IVP, Drug [place] 00 form: INJ, ONCE, Dosing Weight 90.909, kg, Priority: STAT, Start date: 08/17/13 20:15:00, Stop date: 08/17/13 20:15:00(S sahara as: Zofran) morphine 2012-09 No Juan 6 mg, Memor ia Sulfate 1-20 Isaac Route: l 02:15: Nider IVP, ONCE, Jalil n 00 Dosing Weight 90.909, kg, Priority: STAT, Start date: 08/17/13 20:15:00, Stop date: 08/17/13 20:15:00 Saline 2012-09 No Juan 5 mL, Memoria Flush 0.9% 1-20 Isaac Route: l 02:15: Inder MISC, Drug [place]al[place] 00 Form: INJ, Dosing Weight 90.909, kg, PRN, PRN Line Flush, Administer at least once every 12 hours, Start date: 08/17/13 20:15:00, Duration: 30 day, Stop date: 09/16/13 20:14:00(S sahara as: BD Posiflush) ondansetron 2012-09 No Juan 4 mg, 2 Memoria 1-20 Isaac mL, Route: l 02:15: Inder IVP, Drug [place] 00 form: INJ, ONCE, Dosing Weight 90.909, kg, Priority: STAT, Start date: 08/17/13 20:15:00, Stop date: 08/17/13 20:15:00(S sahara as: Zofran) morphine 2012-09 No Juan 6 mg, Memor ia Sulfate 1-20 Isaac Route: l 02:15: Inder IVP, ONCE, Jalil n 00 Dosing Weight 90.909, kg, Priority: STAT, Start date: 08/17/13 20:15:00, Stop date: 08/17/13 20:15:00 Saline 2012-09 No Juan 5 mL, Memoria Flush 0.9% 1-20 Isaac Route: l 02:15: Inder MISC, Drug [place] 00 Form: INJ, Dosing Weight 90.909, kg, PRN, PRN Line Flush, Administer at least once every 12 hours, Start date: 08/17/13 20:15:00, Duration: 30 day, Stop date: 09/16/13 20:14:00(S sahara as: BD Posiflush) ondansetron 2012-09 No Juan 4 mg, 2 Memoria 1-20 Isaac mL, Route: l 02:15: Inder IVP, Drug [place] 00 form: INJ, ONCE, Dosing Weight 90.909, kg, Priority: STAT, Start date: 08/17/13 20:15:00, Stop date: 08/17/13 20:15:00(S sahara as: Zofran) morphine 2012-09 No Juan 6 mg, Memor ia Sulfate 1-20 Isaac Route: l 02:15: Inder IVP, ONCE, Jalil n 00 Dosing Weight 90.909, kg, Priority: STAT, Start date: 08/17/13 20:15:00, Stop date: 08/17/13 20:15:00 Saline 2012-09 No Juan 5 mL, Memoria Flush 0.9% 1-20 Isaac Route: l 02:15: Inder MISC, Drug [place] 00 Form: INJ, Dosing Weight 90.909, kg, PRN, PRN Line Flush, Administer at least once every 12 hours, Start date: 08/17/13 20:15:00, Duration: 30 day, Stop date: 09/16/13 20:14:00(S sahara as: BD Posiflush) ondansetron 2012-09 No Juan 4 mg, 2 Memoria 1-20 Isaac mL, Route: l 02:15: Inder IVP, Drug [place] 00 form: INJ, ONCE, Dosing Weight 90.909, kg, Priority: STAT, Start date: 08/17/13 20:15:00, Stop date: 08/17/13 20:15:00(S sahara as: Zofran) morphine 2012-09 No Juan 6 mg, Memor ia Sulfate 1-20 Isaac Route: l 02:15: Inder IVP, ONCE, Jalil n 00 Dosing Weight 90.909, kg, Priority: STAT, Start date: 08/17/13 20:15:00, Stop date: 08/17/13 20:15:00 Saline 2012-09 No Juan 5 mL, Memoria Flush 0.9% 1-20 Isaac Route: l 02:15: Inder MISC, Drug [place] 00 Form: INJ, Dosing Weight 90.909, kg, PRN, PRN Line Flush, Administer at least once every 12 hours, Start date: 08/17/13 20:15:00, Duration: 30 day, Stop date: 09/16/13 20:14:00(S sahara as: BD Posiflush) ondansetron 2012-09 No Juan 4 mg, 2 Memoria 1-20 Isaac mL, Route: l 02:15: Inder IVP, Drug [place] 00 form: INJ, ONCE, Dosing Weight 90.909, kg, Priority: STAT, Start date: 08/17/13 20:15:00, Stop date: 08/17/13 20:15:00(S sahara as: Zofran) morphine 2012-09 No Juan 6 mg, Memor ia Sulfate 1-20 Isaac Route: l 02:15: Inder IVP, ONCE, Jal[place] n 00 Dosing Weight 90.909, kg, Priority: STAT, Start date: 08/17/13 20:15:00, Stop date: 08/17/13 20:15:00 Saline 2012-09 No Juan 5 mL, Memoria Flush 0.9% 1-20 Isaac Route: l 02:15: Inder MISC, Drug [place] 00 Form: INJ, Dosing Weight 90.909, kg, PRN, PRN Line Flush, Administer at least once every 12 hours, Start date: 08/17/13 20:15:00, Duration: 30 day, Stop date: 09/16/13 20:14:00(S sahara as: BD Posiflush) ondansetron 2012-09 No Juan 4 mg, 2 Memoria 1-20 Isaac mL, Route: l 02:15: Inder IVP, Drug [place] 00 form: INJ, ONCE, Dosing Weight 90.909, kg, Priority: STAT, Start date: 08/17/13 20:15:00, Stop date: 08/17/13 20:15:00(S sahara as: Zofran) morphine 2012-09 No Juan 6 mg, Memor ia Sulfate 1-20 Isaac Route: l 02:15: Inder IVP, ONCE, Jalil n 00 Dosing Weight 90.909, kg, Priority: STAT, Start date: 08/17/13 20:15:00, Stop date: 08/17/13 20:15:00 Saline 2012-09 No Juan 5 mL, Memoria Flush 0.9% 1-20 Isaac Route: l 02:15: Inder MISC, Drug [place] 00 Form: INJ, Dosing Weight 90.909, kg, PRN, PRN Line Flush, Administer at least once every 12 hours, Start date: 08/17/13 20:15:00, Duration: 30 day, Stop date: 09/16/13 20:14:00(S sahara as: BD Posiflush) ondansetron 2012-09 No Juan 4 mg, 2 Memoria 1-20 Isaac mL, Route: l 02:15: Inder IVP, Drug [place] 00 form: INJ, ONCE, Dosing Weight 90.909, kg, Priority: STAT, Start date: 08/17/13 20:15:00, Stop date: 08/17/13 20:15:00(S sahara as: Zofran) morphine 2012-09 No Juan 6 mg, Memor ia Sulfate 1-20 Isaac Route: l 02:15: Inder IVP, ONCE, Jalil n 00 Dosing Weight 90.909, kg, Priority: STAT, Start date: 08/17/13 20:15:00, Stop date: 08/17/13 20:15:00 Saline 2012-09 No Juan 5 mL, Memoria Flush 0.9% 1-20 Isaac Route: l 02:15: Inder MISC, Drug [place]al[place] n 00 Form: INJ, Dosing Weight 90.909, kg, PRN, PRN Line Flush, Administer at least once every 12 hours, Start date: 08/17/13 20:15:00, Duration: 30 day, Stop date: 09/16/13 20:14:00(S sahara as: BD Posiflush) ondansetron 2012-09 No Juan 4 mg, 2 Memoria 1-20 Isaac mL, Route: l 02:15: Inder IVP, Drug [place] 00 form: INJ, ONCE, Dosing Weight 90.909, kg, Priority: STAT, Start date: 08/17/13 20:15:00, Stop date: 08/17/13 20:15:00(S sahara as: Zofran) morphine 2012-09 No Juan 6 mg, Memor ia Sulfate 1-20 Isaac Route: l 02:15: Inder IVP, ONCE, Jalil n 00 Dosing Weight 90.909, kg, Priority: STAT, Start date: 08/17/13 20:15:00, Stop date: 08/17/13 20:15:00 Saline 2012-09 No Juan 5 mL, Memoria Flush 0.9% 1-20 Isaac Route: l 02:15: Inder MISC, Drug [place]al[place] n 00 Form: INJ, Dosing Weight 90.909, kg, PRN, PRN Line Flush, Administer at least once every 12 hours, Start date: 08/17/13 20:15:00, Duration: 30 day, Stop date: 09/16/13 20:14:00(S sahara as: BD Posiflush) ondansetron 2012-09 No Juan 4 mg, 2 Memoria 1-20 Isaac mL, Route: l 02:15: Inder IVP, Drug [place] 00 form: INJ, ONCE, Dosing Weight 90.909, kg, Priority: STAT, Start date: 08/17/13 20:15:00, Stop date: 08/17/13 20:15:00(S sahara as: Zofran) morphine 2012-09 No Juan 6 mg, Memor ia Sulfate 1-20 Isaac Route: l 02:15: Inder IVP, ONCE, Jalil n 00 Dosing Weight 90.909, kg, Priority: STAT, Start date: 08/17/13 20:15:00, Stop date: 08/17/13 20:15:00 Saline 2012-09 No Juan 5 mL, Memoria Flush 0.9% 1-20 Isaac Route: l 02:15: Inder MISC, Drug [place] n 00 Form: INJ, Dosing Weight 90.909, kg, PRN, PRN Line Flush, Administer at least once every 12 hours, Start date: 08/17/13 20:15:00, Duration: 30 day, Stop date: 09/16/13 20:14:00(S sahara as: BD Posiflush) ondansetron 2012-09 No Juan 4 mg, 2 Memoria 1-20 Isaac mL, Route: l 02:15: Inder IVP, Drug [place] 00 form: INJ, ONCE, Dosing Weight 90.909, kg, Priority: STAT, Start date: 08/17/13 20:15:00, Stop date: 08/17/13 20:15:00(S sahara as: Zofran) morphine 2012-09 No Juan 6 mg, Memor ia Sulfate 1-20 Isaac Route: l 02:15: Inder IVP, ONCE, Jalil n 00 Dosing Weight 90.909, kg, Priority: STAT, Start date: 08/17/13 20:15:00, Stop date: 08/17/13 20:15:00 Saline 2012-09 No Juan 5 mL, Memoria Flush 0.9% 1-20 Isaac Route: l 02:15: Inder MISC, Drug Jal[place] n 00 Form: INJ, Dosing Weight 90.909, kg, PRN, PRN Line Flush, Administer at least once every 12 hours, Start date: 08/17/13 20:15:00, Duration: 30 day, Stop date: 09/16/13 20:14:00(S sahara as: BD Posiflush) ondansetron 2012-09 No Juan 4 mg, 2 Memoria 1-20 Isaac mL, Route: l 02:15: Inder IVP, Drug [place] 00 form: INJ, ONCE, Dosing Weight 90.909, kg, Priority: STAT, Start date: 08/17/13 20:15:00, Stop date: 08/17/13 20:15:00(S sahara as: Zofran) morphine 2012-09 No Juan 6 mg, Memor ia Sulfate 1-20 Isaac Route: l 02:15: Inder IVP, ONCE, Jalil n 00 Dosing Weight 90.909, kg, Priority: STAT, Start date: 08/17/13 20:15:00, Stop date: 08/17/13 20:15:00 Saline 2012-09 No Juan 5 mL, Memoria Flush 0.9% 1-20 Isaac Route: l 02:15: Inder MISC, Drug Jal[place] n 00 Form: INJ, Dosing Weight 90.909, kg, PRN, PRN Line Flush, Administer at least once every 12 hours, Start date: 08/17/13 20:15:00, Duration: 30 day, Stop date: 09/16/13 20:14:00(S sahara as: BD Posiflush) ondansetron 2012-09 No Juan 4 mg, 2 Memoria 1-20 Isaac mL, Route: l 02:15: Inder IVP, Drug [place] 00 form: INJ, ONCE, Dosing Weight 90.909, kg, Priority: STAT, Start date: 08/17/13 20:15:00, Stop date: 08/17/13 20:15:00(S sahara as: Zofran) morphine 2012-09 No Juan 6 mg, Memor ia Sulfate 1-20 Isaac Route: l 02:15: Inder IVP, ONCE, Jalil n 00 Dosing Weight 90.909, kg, Priority: STAT, Start date: 08/17/13 20:15:00, Stop date: 08/17/13 20:15:00 Saline 2012-09 No Juan 5 mL, Memoria Flush 0.9% 1-20 Isaac Route: l 02:15: Inder MISC, Drug Jalil n 00 Form: INJ, Dosing Weight 90.909, kg, PRN, PRN Line Flush, Administer at least once every 12 hours, Start date: 08/17/13 20:15:00, Duration: 30 day, Stop date: 09/16/13 20:14:00(S sahara as: BD Posiflush) ondansetron 2012-09 No Juan 4 mg, 2 Memoria 1-20 Isaac mL, Route: l 02:15: Inder IVP, Drug [place] 00 form: INJ, ONCE, Dosing Weight 90.909, kg, Priority: STAT, Start date: 08/17/13 20:15:00, Stop date: 08/17/13 20:15:00(S sahara as: Zofran) morphine 2012-09 No Juan 6 mg, Memor ia Sulfate 1-20 Isaac Route: l 02:15: Inder IVP, ONCE, Jalil n 00 Dosing Weight 90.909, kg, Priority: STAT, Start date: 08/17/13 20:15:00, Stop date: 08/17/13 20:15:00 Saline 2012-09 No Juan 5 mL, Memoria Flush 0.9% -20 Isaac Route: l 02:15: Inder MISC, Drug Jalil n 00 Form: INJ, Dosing Weight 90.909, kg, PRN, PRN Line Flush, Administer at least once every 12 hours, Start date: 08/17/13 20:15:00, Duration: 30 day, Stop date: 09/16/13 20:14:00(S sahara as: BD Posiflush) ondansetron 2012-09 No Juan 4 mg, 2 Memoria 1-20 Isaac mL, Route: l 02:15: Inder IVP, Drug [place] 00 form: INJ, ONCE, Dosing Weight 90.909, kg, Priority: STAT, Start date: 08/17/13 20:15:00, Stop date: 08/17/13 20:15:00(S sahara as: Zofran) morphine 2012-09 No Juan 6 mg, Memor ia Sulfate 1-20 Isaac Route: l 02:15: Inder IVP, ONCE, Jalil n 00 Dosing Weight 90.909, kg, Priority: STAT, Start date: 08/17/13 20:15:00, Stop date: 08/17/13 20:15:00 Saline 2012-09 No Juan 5 mL, Memoria Flush 0.9% 1-20 Isaac Route: l 02:15: Inder MISC, Drug Jalil n 00 Form: INJ, Dosing Weight 90.909, kg, PRN, PRN Line Flush, Administer at least once every 12 hours, Start date: 08/17/13 20:15:00, Duration: 30 day, Stop date: 09/16/13 20:14:00(S sahara as: BD Posiflush) ondansetron 2012-09 No Juan 4 mg, 2 Memoria 1-20 Isaac mL, Route: l 02:15: Inder IVP, Drug [place]n 00 form: INJ, ONCE, Dosing Weight 90.909, kg, Priority: STAT, Start date: 08/17/13 20:15:00, Stop date: 08/17/13 20:15:00(S sahara as: Zofran) morphine 2012-09 No Juan 6 mg, Memor ia Sulfate 1-20 Isaac Route: l 02:15: Inder IVP, ONCE, Jalil n 00 Dosing Weight 90.909, kg, Priority: STAT, Start date: 08/17/13 20:15:00, Stop date: 08/17/13 20:15:00 Vital Signs Vital Name Observation Time Observation Value Comments Source Heart rate 2022-08-13 97 /min [facility] 23:00:00 [facility] Respiratory rate 2022-08-13 16 /min [facility] 23:00:00 [facility] Oxygen saturation 2022-08-13 100 /min [facility] in Arterial blood 23:00:00 [facility] by Pulse oximetry [place] Systolic blood 2022-08-13 131 mm[Hg] [place] of pressure 22:00:00 [facility] Diastolic blood 2022-08-13 93 mm[Hg] [place] o f pressure 22:00:00 [facility] Body temperature 2022-08-13 37.5 Mary [place] of 22:00:00 [facility] Body weight 2022-08-10 141 kg [place] of 02:00:00 [facility] BMI 2022-08-10 47.26 kg/m2 [place] of 02:00:00 [facility] Body height 2022-08-09 172.7 cm [facility] 01:08:00 [facility] Systolic blood 2022-07-21 124 mm[Hg] [facility] pressure 00:53:00 [facility] Diastolic blood 2022-07-21 85 mm[Hg] [facility] pressure 00:53:00 [facility] Heart rate 2022-07-21 73 /min [facility] 00:53:00 [facility] Body temperature 2022-07-21 36.89 Mary [facility] 00:53:00 [facility] Respiratory rate 2022-07-21 18 /min [facility] 00:53:00 [facility] Body height 2022-07-21 172.7 cm [facility] 00:53:00 [facility] Body weight 2022-07-21 127.007 kg [facility] 00:53:00 [facility] BMI 2022-07-21 42.57 kg/m2 [facility] 00:53:00 [facility] Oxygen saturation 2022-07-21 99 /min [facility] in Arterial blood 00:53:00 [place] [facility] Pulse oximetry [facility] HEIGHT 2021-04-08 172.7 cm 15:00:00 WEIGHT 2021-04-08 124.467 kg 15:00:00 HEIGHT 2021-04-08 172.7 cm 15:00:00 WEIGHT 2021-04-08 124.467 kg 15:00:00 Systolic blood 2020-05-22 139 mm[Hg] [facility] pressure 20:10:00 [facility] Diastolic blood 2020-05-22 76 mm[Hg] [facility] pressure 20:10:00 [facility] Heart rate 2020-05-22 64 /min [facility] 20:10:00 [facility] Body temperature 2020-05-22 36.89 Mary [facility] 20:10:00 [facility] Respiratory rate 2020-05-22 18 /min [facility] 20:10:00 [facility] Oxygen saturation 2020-05-22 100 /min [facility] in Arterial blood 20:10:00 [place] [facility] by Pulse oximetry [facility] Body height 2020-05-19 177.8 cm [facility] 07:13:00 [facility] Body weight 2020-05-19 102 kg [facility] 07:13:00 [facility] BMI 2020-05-19 32.27 kg/m2 [facility] 07:13:00 [facility] Systolic blood 2020-05-22 139 mm[Hg] [facility] pressure 20:10:00 [facility] Diastolic blood 2020-05-22 76 mm[Hg] [facility] f pressure 20:10:00 [facility] Heart rate 2020-05-22 64 /min [facility] 20:10:00 [facility] Body temperature 2020-05-22 36.89 Mary [facility] 20:10:00 [facility] Respiratory rate 2020-05-22 18 /min [facility] 20:10:00 [facility] Oxygen saturation 2020-05-22 100 /min [facility] in Arterial blood 20:10:00 [place] [facility] Body height 2020-05-19 177.8 cm University of 07:13:00 [facility] Body weight 2020-05-19 102 kg [facility] of 07:13:00 [facility] BMI 2020-05-19 32.27 kg/m2 [facility] of 07:13:00 [facility] Systolic blood 2020-05-17 119 mm[Hg] [facility] pressure 05:00:00 [facility] Diastolic blood 2020-05-17 75 mm[Hg] [facility] pressure 05:00:00 [facility] Heart rate 2020-05-17 62 /min [facility] of 05:00:00 [facility] Respiratory rate 2020-05-17 19 /min [facility] of 05:00:00 [facility] Oxygen saturation 2020-05-17 98 /min [facility] of in Arterial blood 05:00:00 [facility] jeanette by [facility] Body temperature 2020-05-17 36.83 [facility] 00:57:00 [facility] Body weight 2020-05-17 102.059 kg University of 00:57:00 [facility] BMI 2020-05-17 34.21 kg/m2 [facility] of 00:57:00 [facility] Systolic blood 2020-05-17 119 mm[Hg] [facility] pressure 05:00:00 [facility] Diastolic blood 2020-05-17 75 mm[Hg] [facility] pressure 05:00:00 [facility] Heart rate 2020-05-17 62 /min [facility] 05:00:00 [facility] Respiratory rate 2020-05-17 19 /min [facility] 05:00:00 [facility] Oxygen saturation 2020-05-17 98 /min [facility] in Arterial blood 05:00:00 [place] [facility] Body temperature 2020-05-17 36.83 [facility] 00:57:00 [facility] Body weight 2020-05-17 102.059 kg [facility] of 00:57:00 [facility] BMI 2020-05-17 34.21 kg/m2 [facility] 00:57:00 [facility] Systolic blood 2019-12-02 147 mm[Hg] [facility] of pressure 20:41:00 [facility] Diastolic blood 2019-12-02 78 mm[Hg] University o f pressure 20:41:00 [facility] Heart rate 2019-12-02 84 /min University of 20:41:00 [facility] Body temperature 2019-12-02 37 Mary [facility] of 20:41:00 [facility] Respiratory rate 2019-12-02 18 /min [facility] of 20:41:00 [facility] Body height 2019-12-02 172.7 cm University of 20:41:00 [facility] Body weight 2019-12-02 90.719 kg University of 20:41:00 [facility] BMI 2019-12-02 30.41 kg/m2 University of 20:41:00 [facility] Oxygen saturation 2019-12-02 98 /min University of in Arterial blood 20:41:00 [facility] by Pulse oximetry Branch Systolic blood 2019-12-02 147 mm[Hg] [facility] of pressure 20:41:00 [facility] Diastolic blood 2019-12-02 78 mm[Hg] University o f pressure 20:41:00 [facility] Heart rate 2019-12-02 84 /min University of 20:41:00 [facility] Body temperature 2019-12-02 37 Mary [facility] of 20:41:00 [facility] Respiratory rate 2019-12-02 18 /min University of 20:41:00 [facility] Body height 2019-12-02 172.7 cm University of 20:41:00 [facility] Body weight 2019-12-02 90.719 kg University of 20:41:00 [facility] BMI 2019-12-02 30.41 kg/m2 University of 20:41:00 [facility] Oxygen saturation 2019-12-02 98 /min University of in Arterial blood 20:41:00 [facility] jeanette by Pulse oximetry Branch Oxygen saturation 2022-08-20 100 /min AFTER 6 MINUTE Methodis t in Arterial blood 19:38:00 [facility] by Pulse oximetry Systolic blood 2022-08-20 114 mm[Hg] [facility] pressure 17:35:00 Hospital Diastolic blood 2022-08-20 69 mm[Hg] [facility] pressure 17:35:00 Hospital Heart rate 2022-08-20 82 /min [facility] 17:35:00 Hospital Body temperature 2022-08-20 36.5 Mary [facility] 17:35:00 Hospital Respiratory rate 2022-08-20 18 /min [facility] 17:35:00 Hospital Body weight 2022-08-20 135.308 kg [facility] 02:25:18 Hospital BMI 2022-08-20 45.36 kg/m2 [facility] 02:25:18 Hospital Body height 2022-08-16 172.7 cm [facility] 01:09:00 [facility] Systolic blood 2021-04-08 115 mm[Hg] [facility] pressure 16:36:00 [facility] Diastolic blood 2021-04-08 69 mm[Hg] [facility] pressure 16:36:00 [facility] Heart rate 2021-04-08 70 /min [facility] 16:36:00 [facility] Body temperature 2021-04-[address] [facility] 16:36:00 [facility] Respiratory rate 2021-04-08 18 /min [facility] 16:36:00 [facility] Oxygen saturation 2021-04-08 99 /min [facility] in Arterial blood 16:36:00 [facility] nter by Pulse oximetry Body height 2021-04-[address] [facility] 15:00:00 [facility] Body weight 2021-04-[address] [facility] 15:00:00 [facility] BMI 2021-04-08 41.72 kg/m2 [facility] 15:00:00 [facility] Heart rate 2021-04-06 70 /min [facility] 17:00:00 Hospital Respiratory rate 2021-04-06 20 /min [facility] 16:43:00 Hospital Oxygen saturation 2021-04-06 100 /min [facility] in Arterial blood 16:43:00 [facility] by Pulse oximetry Systolic blood 2021-04-06 109 mm[Hg] [facility] 16:43:00 Hospital Diastolic blood 2021-04-06 66 mm[Hg] [facility] pressure 16:43:00 Hospital Body temperature 2021-04-06 36.39 Mary [facility] 16:43:00 Hospital Body height 2021-04-05 172.7 cm [facility] 19:55:00 Hospital Body weight 2021-04-05 117.935 kg [facility] 19:55:00 Hospital BMI 2021-04-05 39.53 kg/m2 [facility] 19:55:00 [facility] Systolic (mm Hg) 2019-12-11 [facility] 23:58:00 Diastolic (mm Hg) 2019-12-11 [facility] 23:58:00 Heart Rate 2019-12-11 [facility] 23:58:00 Respitory Rate 2019-12-11 [facility] 23:58:00 Temperature Oral 2019-12-11 98.4 F [facility] (F) 23:58:00 Height 2019-12-11 172.72 cm [facility] 23:58:00 BMI Calculated 2019-12-11 [facility] 23:58:00 Weight 2019-12-11 [facility] 23:58:00 Respitory Rate 2019-12-03 [facility] 02:40:00 Systolic (mm Hg) 2019-12-03 [facility] 02:40:00 Diastolic (mm Hg) 2019-12-03 [facility] 02:40:00 Temperature Oral 2019-12-03 98.4 F [facility] (F) 02:40:00 BMI Calculated 2019-12-02 [facility] 23:51:00 Systolic (mm Hg) 2019-12-02 [facility] 23:07:00 Diastolic (mm Hg) 2019-12-02 [facility] 23:07:00 Heart Rate 2019-12-02 [facility] 23:07:00 Respitory Rate 2019-12-02 [facility] 23:07:00 Temperature Oral 2019-12-02 98.7 F [facility] (F) 23:07:00 Height 2019-12-02 172.72 cm [facility] 23:07:00 BMI Calculated 2019-12-02 [facility] 23:07:00 Weight 2019-12-02 [facility] 23:07:00 Systolic (mm Hg) 2019-12-01 [facility] 02:11:00 Diastolic (mm Hg) 2019-12-01 [facility] 02:11:00 Respitory Rate 2019-12-01 [facility] 02:11:00 Systolic (mm Hg) 2019-12-01 [facility] 00:45:00 Diastolic (mm Hg) 2019-12-01 [facility] 00:45:00 Respitory Rate 2019-12-01 [facility] 00:45:00 Systolic (mm Hg) 2019-12-01 [facility] 00:30:00 Diastolic (mm Hg) 2019-12-01 [facility] 00:30:00 Respitory Rate 2019-11-30 [facility] 23:45:00 Heart Rate 2019-11-30 [facility] 23:05:00 Temperature Oral 2019-11-30 98.9 F [facility] (F) 23:05:00 Height 2019-11-30 172.72 cm [facility] 23:05:00 BMI Calculated 2019-11-30 [facility] 23:05:00 Weight 2019-11-30 [facility] 23:05:00 Systolic (mm Hg) 2017-01-03 [facility] 16:13:00 Diastolic (mm Hg) 2017-01-03 [facility] 16:13:00 Heart Rate 2017-01-03 [facility] 16:13:00 Respitory Rate 2017-01-03 [facility] 16:13:00 Systolic (mm Hg) 2017-01-03 [facility] 15:44:00 Diastolic (mm Hg) 2017-01-03 [facility] 15:44:00 Heart Rate 2017-01-03 [facility] 15:44:00 Respitory Rate 2017-01-03 [facility] 15:44:00 Respitory Rate 2017-01-03 [facility] 15:29:00 Heart Rate 2017-01-03 [facility] 15:29:00 Systolic (mm Hg) 2017-01-03 [facility] 15:29:00 Diastolic (mm Hg) 2017-01-03 [facility] 15:29:00 BMI Calculated 2017-01-03 [facility] 14:10:00 Weight 2017-01-03 [facility] 14:10:00 Height 2017-01-03 175.26 cm [facility] 14:10:00 BMI Calculated 2016-12-27 [facility] 15[facility]58:00 Weight 2016-12-27 [facility] 15:58:00 Height 2016-12-27 175.26 cm [facility] 15:58:00 Respitory Rate 2016-12-12 [facility] 14:02:00 Systolic (mm Hg) 2016-12-12 [facility] 14:02:00 Diastolic (mm Hg) 2016-12-12 [facility] 14:02:00 Respitory Rate 2016-12-12 [facility] 13:47:00 Systolic (mm Hg) 2016-12-12 [facility] 13:47:00 Diastolic (mm Hg) 2016-12-12 [facility] 13:47:00 Systolic (mm Hg) 2016-12-12 [facility] 13:32:00 Diastolic (mm Hg) 2016-12-12 [facility] 13:32:00 Respitory Rate 2016-12-12 [facility] 13:32:00 Temperature Oral 2016-12-12 97.9 F [facility] (F) 11:38:00 Weight 2016-12-12 [facility] 11:33:00 BMI Calculated 2016-12-12 [facility] 11:33:00 Height 2016-12-05 175.26 cm [facility] 19:38:00 Heart Rate 2016-09-19 [facility] 21:16:00 Systolic (mm Hg) 2016-09-19 [facility] 21:16:00 Diastolic (mm Hg) 2016-09-19 [facility] 21:16:00 Respitory Rate 2016-09-19 [facility] 21:16:00 Temperature Oral 2016-09-19 98.2 F [facility] (F) 21:16:00 Systolic (mm Hg) 2016-09-19 [facility] 20:46:00 Diastolic (mm Hg) 2016-09-19 [facility] 20:46:00 Heart Rate 2016-09-19 [facility] 20:46:00 Respitory Rate 2016-09-19 [facility] 20:46:00 Weight 2016-09-19 [facility] 19:39:00 Height 2016-09-19 172.72 cm [facility] 19:39:00 BMI Calculated 2016-09-19 [facility] 19:39:00 Respitory Rate 2016-09-19 [facility] 19:39:00 Temperature Oral 2016-09-19 97.3 F [facility] (F) 19:39:00 Heart Rate 2016-09-19 [facility] 19:39:00 Systolic (mm Hg) 2016-09-19 [facility] 19:39:00 Diastolic (mm Hg) 2016-09-19 [facility] ermann 19:39:00 Temperature Oral 2013-08-18 98.2 F Letha Davis rmann (F) 06:31:00 Respitory Rate 2013-08-18 [facility] 06:31:00 Heart Rate 2013-08-18 Letha Tripathian n 06:31:00 Diastolic (mm Hg) 2013-08-18 [facility] Jalen ermann 06:31:00 Systolic (mm Hg) 2013-08-18 [facility] Ryan rmann 06:31:00 Systolic (mm Hg) 2013-08-18 [facility] Ryan rmann 03:44:00 Heart Rate 2013-08-18 Letha Jalil n 03:44:00 Diastolic (mm Hg) 2013-08-18 [facility] ermann 03:44:00 Systolic (mm Hg) 2013-08-18 [facility] Ryan rmann 03:10:00 Diastolic (mm Hg) 2013-08-18 [facility] Jalen ermann 03:10:00 Respitory Rate 2013-08-18 [facility] 03:10:00 Heart Rate 2013-08-18 Letha Tripathian n 03:10:00 Temperature Oral 2013-08-18 96.5 F Letha Davis rmann (F) 03:10:00 Weight 2013-08-18 Letha Tripathian n 01:58:00 Height 2013-08-18 170.18 cm Letha Jimenes n 01:58:00 Respitory Rate 2013-08-18 Letha Tripathi bebe 01:58:00 Height 2011-10-11 162.56 cm Letha Jimenes n 15:17:00 Weight 2011-10-11 Letha Tripathian n 15:17:00 Procedures Procedure Date / Time Performing Source Performed Clinician POC GLUCOSE 2022-08-20 [facility] 17:35:00 POC GLUCOSE 2022-08-20 [facility] 13:41:00 Flip MAGNESIUM LEVEL 2022-08-20 [facility]helle Nam Hospit [facility] 10:39:00 PHOSPHORUS LEVEL 2022-08-20 Nichelle Nam [facility] b[facility]av 10:39:00 HC COMPLETE BLD COUNT W/AUTO 2022-08-20 Nichelle Nam Met [facility] DIFF 10:39:00 COMPREHENSIVE METABOLIC PANEL 2022-08-20 [facility] Valle [facility] 10:39:00 Flip ESTIMATED GFR 2022-08-20 [facility] 10:39:00 Flip POC GLUCOSE 2022-08-20 [facility] 03:29:00 Flip BASIC METABOLIC PANEL 2022-08-19 [facility] 19:12:00 ESTIMATED GFR 2022-08-19 [facility] Hos[facility] bhargav 19:12:00 XR CHEST 1 VW PORTABLE 2022-08-19 Rust [facility] 14:42:00 POC GLUCOSE 2022-08-19 [facility] 14:05:00 Flip HC COMPLETE BLD COUNT W/AUTO 2022-08-19 CyrilAva da silvaa Andre [facility] DIFF 07:03:00 ARTERIAL BLOOD GAS 2022-08-19 Cyril, [facility] P [facility] 07:03:00 BASIC METABOLIC PANEL 2022-08-19 [place] Nichelle P [facility] 07:03:00 ESTIMATED GFR 2022-08-19 [place], [facility] P [facility] 07:03:00 MAGNESIUM LEVEL 2022-08-19 [place], [facility]helle P [facility] 07:03:00 PHOSPHORUS LEVEL 2022-08-19 Cyril, Nichelle P [facility] 07:03:00 POC GLUCOSE 2022-08-19 [facility] 03:03:00 Flip POC GLUCOSE 2022-08-18 [facility] 23:02:00 Flip POC GLUCOSE 2022-08-18 [facility] 17:23:00 Flip XR CHEST 1 VW PORTABLE 2022-08-18 Ronit [facility] 15:50:14 Edward POC GLUCOSE 2022-08-18 [facility] 15:03:00 Flip ARTERIAL BLOOD GAS 2022-08-18 [place], [facility] 08:19:00 IONIZED CALCIUM, ARTERIAL 2022-08-18 Cyril Nichelle P [facility] 08:19:00 COMPREHENSIVE METABOLIC PANEL 2022-08-18 Ava Nama Andre [facility] 08:18:00 MAGNESIUM LEVEL 2022-08-18 Cyril, [facility]hel[facility] 08:18:00 PHOSPHORUS LEVEL 2022-08-18 [place], Nichelle P [facility] 08:18:00 HC COMPLETE BLD COUNT W/AUTO 2022-08-18 [place], Nichelle P [facility] DIFF 08:18:00 ESTIMATED GFR 2022-08-18 Cyril, [facility]hel[facility] P [facility] 08:18:00 POC GLUCOSE 2022-08-18 [facility] 02:01:00 Flip MRSA PCR 2022-08-17 [facility] Zechariah [facility] 23:43:00 BASIC METABOLIC PANEL 2022-08-17 [facility] 23:39:00 MAGNESIUM LEVEL 2022-08-17 Dorian Brunsonan Christian [facility] 23:39:00 PHOSPHORUS LEVEL 2022-08-17 [facility] Lelekaryn Gonzales [facility] 23:39:00 HEMOGLOBIN, SYRINGE 2022-08-17 [facility] Lele [facility] Ho spital 23:39:00 HC COMPLETE BLD COUNT W/AUTO 2022-08-17 Lele Brunson Si Met [facility] DIFF 23:39:00 ESTIMATED GFR 2022-08-17 Lele Brunson Si [facility] 23:39:00 IONIZED CALCIUM, ARTERIAL 2022-08-17 BrunsonLele [facility] 23:39:00 POC GLUCOSE 2022-08-17 [facility] 20:13:00 Flip INFLUENZA ANTIGEN TEST, 2022-08-17 [facility] REFLEX NEGATIVE TO RPP 20:03:00 RESPIRATORY PATHOGEN PANEL 2022-08-17 BrunsonLele [facility] WITH COVID-19 RT-PCR 20:03:00 POC GLUCOSE 2022-08-17 [facility] 18:08:00 Flip ANTINUCLEAR ANTIBODIES (JOCELYNE) 2022-08-17 BrunsonLele [facility] WITH REFLEX TO TITER AND 17:01:00 PATTERN, IMMUNOFLUORESCENCE THROMBOELASTOGRAPH 2022-08-17 Lele Brunson Si [facility] 17:01:00 D-DIMER 2022-08-17 Lele Brunson [facility] 17:01:00 PROTHROMBIN TIME WITH INR 2022-08-17 Lele Brunson Si [facility] 17:01:00 POC GLUCOSE 2022-08-17 [facility] 15:46:00 Flip POC GLUCOSE 2022-08-17 McCartan, Mango [facility] 14:14:00 Flip POC GLUCOSE 2022-08-17 McCartan, Mango [facility] 12:26:00 Flip VANCOMYCIN LEVEL, RANDOM 2022-08-17 [facility] 11:30:00 Edward LACTIC ACID LEVEL 2022-08-17 [place], [facility] 11:30:00 POC GLUCOSE 2022-08-17 [facility] 10:03:00 Flip POC GLUCOSE 2022-08-17 [facility] 08:02:00 Flip ARTERIAL BLOOD GAS 2022-08-17 Cyril, [facility]hel[facility] 07:21:00 COMPREHENSIVE METABOLIC PANEL 2022-08-17 Cyril, Nichelle P [facility] 07:20:00 MAGNESIUM LEVEL 2022-08-17 Cyril, [facility]hel[facility] P [facility] 07:20:00 PHOSPHORUS LEVEL 2022-08-17 Cyril, Nichelle P [facility] 07:20:00 IONIZED CALCIUM 2022-08-17 Cyril, [facility]hel[facility] 07:20:00 HC COMPLETE BLD COUNT W/AUTO 2022-08-17 [place], Nichelle P [facility] DIFF 07:20:00 ESTIMATED GFR 2022-08-17 [place], [facility]helle P [facility] 07:20:00 ESTIMATED GFR 2022-08-17 Tere Hamm [facility] 06:53:00 POC GLUCOSE 2022-08-17 [facility] 06:17:00 Flip HEMODIALYSIS CATHETER 2022-08-17 Kiana Jeronimo [facility] PLACEMENT 04:44:26 XR CHEST 1 VW PORTABLE 2022-08-17 Nichelle Nam [facility] 04:35:05 POC GLUCOSE 2022-08-17 Tori, Mango [facility] 03:42:[address] ABDOMEN PELVIS W WO 2022-08-17 Manoj [facility] CONTRAST 03:22:30 POC GLUCOSE 2022-08-17 McCartan, Mango [facility] 02:03:00 Flip POC GLUCOSE 2022-08-17 McCartan, [facility] Hospit [facility] 00:36:00 Flip POC GLUCOSE 2022-08-16 McCartan, Mango [facility] 22:51:00 Flip POC GLUCOSE 2022-08-16 McC[place], [facility] Hospit al 20:08:00 Flip SALICYLATE LEVEL 2022-08-16 Manoj [facility] Hosp ital 18:11:00 COMPREHENSIVE METABOLIC PANEL 2022-08-16 Олегabbymn [facility] 18:11:00 OSMOLALITY, SERUM 2022-08-16 Abilio [facility] 18:11:00 LIPASE LEVEL 2022-08-16 Manoj [facility] Hospi bhargav 18:11:00 AMYLASE LEVEL 2022-08-16 Manoj [facility] Hospi bhargav 18:11:00 ESTIMATED GFR 2022-08-16 Abilio Aranda [facility] 18:11:00 MAGNESIUM LEVEL 2022-08-16 Manoj Abilio [facility] 18:11:00 PHOSPHORUS LEVEL 2022-08-16 Manoj [facility] Hosp ital 18:11:00 IONIZED CALCIUM, ARTERIAL 2022-08-16 Manoj [facility] 18:11:00 ARTERIAL BLOOD GAS 2022-08-16 Abilio Arandaist Ho spital 18:11:00 HEMOGLOBIN, SYRINGE 2022-08-16 Abilio Arandaist H ospital 18:11:00 CBC WITH PLATELET AND 2022-08-16 Manoj [facility] DIFFERENTIAL 18:11:00 LACTIC ACID LEVEL 2022-08-16 Abilio Aranda [facility] 18:11:00 MANUAL DIFFERENTIAL 2022-08-16 ZuideAbilio [facility] 18:11:00 POC GLUCOSE 2022-08-16 [facility] 18:10:00 Flip URINE DRUGS OF ABUSE SCREEN 2022-08-16 [place], Nichelle P [facility] 17:42:00 OSMOLALITY, URINE 2022-08-16 Abilio Aranda [facility] 17:42:00 CREATININE LEVEL, URINE, 2022[facility]08-16 [facility] 17:42:00 SODIUM LEVEL, URINE, RANDOM 2022-08-16 Abilio Aranda [facility] 17:42:00 ESTIMATED GFR 2022-08-16 ChhayaTere washburn [facility] 17:42:00 POC GLUCOSE 2022-08-16 [facility] 15:10:00 Flip ESTIMATED GFR 2022-08-16 Eli Whyte [facility] 12:55:00 [place] INSERT 2022-08-16 [place], [facility]helle P [facility] CATH,ART,PERCUT,SHORTTERM 12:25:42 LACTIC ACID LEVEL 2022-08-16 Cyril, [facility]helle P [facility] 12:07:00 TTE COMPLETE, W CONTRAST, W 2022-08-16 Guzman Cunningham [facility] DOPPLER ([id number]) 12:00:00 Lennox ARTERIAL BLOOD GAS 2022-08-16 Guzman Cunningham Ho spital 11:58:00 Lennox US ABDOMEN COMPLETE 2022-08-16 Guzman Cunningham H [facility]spital 11:56:00 Lennox POTASSIUM LEVEL 2022-08-16 Cyril, [facility]hel[facility] P [facility] 11:24:00 GLUCOSE LEVEL 2022-08-16 [place], [facility]helle P [facility] 11:24:00 PROCALCITONIN 2022-08-16 [place], [facility]helle P [facility] 11:24:00 AMYLASE LEVEL 2022-08-16 Cyril, Nichelle P [facility] 11:24:00 LIPASE LEVEL 2022-08-16 Cyril, [facility]helle P [facility] 11:24:00 POC GLUCOSE 2022-08-16 Jose Lopezque [facility] 11:18:00 ARTERIAL BLOOD GAS 2022-08-16 [place], [facility]hel[facility] 11:16:00 XR ABDOMEN 1 VW PORTABLE 2022-08-16 CooperDemetria [facility] 11:01:19 XR CHEST 1 VW PORTABLE 2022-08-16 [place], Nichelle P [facility] 11:00:58 BLOOD CULTURE, AEROBIC & 2022-08-16 [place], Nichelle P [facility] ANAEROBIC 10:57:00 CORTISOL LEVEL, RANDOM 2022-08-16 Octavio Jaylonjose [facility] 10:38:00 Lennox ARTERIAL BLOOD GAS 2022-08-16 [place], [facility] 10:38:00 B NATRIURETIC PEPTIDE 2022-08-16 [place], Nichelle P [facility] 09:28:00 COMPREHENSIVE METABOLIC PANEL 2022-08-16 RockwallNichelle [facility] 09:28:00 MAGNESIUM LEVEL 2022-08-16 Cyril, [facility]hel[facility] 09:28:00 PHOSPHORUS LEVEL 2022-08-16 [place], Nichelle P [facility] 09:28:00 IONIZED CALCIUM 2022-08-16 Cyril, [facility]hel[facility] P [facility] 09:28:00 TYPE AND SCREEN 2022-08-16 Cyril, Nichelle P [facility] 09:28:00 PARTIAL THROMBOPLASTIN TIME 2022-08-16 [place], Nichelle P [facility] (PTT) 09:28:00 ESTIMATED GFR 2022-08-16 [place], Nichelle P [facility] 09:28:00 ECG 12-LEAD 2022-08-16 [place], Nichelle P [facility] 09:22:55 CBC WITH PLATELET AND 2022-08-16 [place], Nichelle P [facility] DIFFERENTIAL 09:12:00 PROCALCITONIN 2022-08-16 Cyril, Nichelle P [facility] 09:12:00 THYROID STIMULATING HORMONE 2022-08-16 Cyril, Nichelle P [facility] 09:12:00 LIPID PANEL 2022-08-16 [place], Nichelle P [facility] 09:12:00 ADRENOCORTICOTROPIC HORMONE 2022-08-16 [place], Nichelle P [facility] 09:12:00 CORTISOL LEVEL, RANDOM 2022-08-16 [place], Nichelle P [facility] 09:12:00 LACTIC ACID LEVEL 2022-08-16 [place], [facility]hel[facility] 09:12:00 MANUAL DIFFERENTIAL 2022-08-16 Cyril, [facility]hel[facility] P [facility] 09:12:00 ESTIMATED GFR 2022-08-16 [place], [facility]hel[facility] P [facility] 09:10:00 POC GLUCOSE 2022-08-16 Demetria Lopez [facility] 09:10:00 [place] CRITICAL CARE, E/M 30-74 2022-08-16 [facility] MINUTES 08:16:36 [place] CRITICAL CARE, ADDL 30 MIN 2022-08-16 [facility] 08:16:36 [place] INSERT NON-TUNNEL CV CATH 2022-08-16 [facility] 08:16:[address] ANGIOGRAM PE CHEST 2022-08-16 [facility] 06:52:50 Zuheir BLOOD CULTURE, AEROBIC & 2022-08-16 [facility] ANAEROBIC 06:26:00 Zuheir BLOOD CULTURE, AEROBIC & 2022-08-16 [facility] ANAEROBIC 06:17:00 Zuheir URINE CULTURE 2022-08-16 [facility] 05:01:00 Fritz URINALYSIS 2022-08-16 [facility] 05:01:00 Fritz COVID-19 QUALITATIVE RT-PCR 2022-08-16 Sheldon Young [facility] 04:41:00 Fritz TROPONIN, I-STAT 2022-08-16 [facility] 04:41:00 Fritz LACTIC ACID, I-STAT 2022-08-16 [facility] 04:41:00 Fritz LACTIC ACID, I-STAT 2022-08-16 [facility] 02:53:00 Fritz ECG ED PRELIMINARY 2022-08-16 [facility] INTERPRETATION 01:57:47 Fritz XR CHEST 1 VW PORTABLE 2022-08-16 [facility] 01:47:52 Fritz HC COMPLETE BLD COUNT W/AUTO 2022-08-16 Sheldon Young [facility] DIFF 01:24:00 Fritz COMPREHENSIVE METABOLIC PANEL 2022-08-16 Sheldon Young [facility] 01:24:00 Fritz TROPONIN, I-STAT 2022-08-16 [facility] 01:24:00 Fritz ESTIMATED GFR 2022-08-16 [facility] 01:24:00 Fritz ECG 12-LEAD 2022-08-16 [facility] 01:00:11 Fritz PHOSPHORUS 2022-08-13 [facility] 09[facility]00 [facility] MAGNESIUM 2022-08-13 [facility] 09:55:00 [facility] BASIC METABOLIC PANEL (NA, K, 2022-08-13 [facility], CO2, GLUCOSE, BUN, 09:55:00 [facility] CREATININE, CA) CBC WITH DIFF 2022-08-13 [facility] 09:55:00 [facility] LEGIONELLA URINARY ANTIGEN 2022-08-12 [facility] TST 23:38:00 [facility] PNEUMOCOCCAL ANTIGEN 2022-08-12 [facility] 23:37[facility]00 [facility] POCT GLUCOSE (AUTOMATED) 2022-08-12 [facility] 23:20:00 [facility] POCT GLUCOSE (AUTOMATED) 2022-08-12 [facility] 18:48:00 [facility] POCT GLUCOSE (AUTOMATED) 2022-08-12 [facility] 14:[facility]00 [facility] MAGNESIUM 2022-08-12 [facility] 10:52:00 [facility] THYROID STIMULATING HORMONE 2022-08-12 Shaggy Gregg [facility] 10:52:00 [facility] BASIC METABOLIC PANEL (NA, K, 2022-08-12 Andrew Villegas [facility] CL, CO2, GLUCOSE, BUN, 10:52:00 Medical ran CREATININE, CA) CBC WITHOUT DIFF 2022-08-12 N[facility] [place] 10:52:00 [facility] POCT GLUCOSE (AUTOMATED) 2022-08-12 [facility] 03:35:00 [facility] POCT GLUCOSE (AUTOMATED) 2022-08-11 [facility] 23:24:00 [facility] URINE DRUG (IMMUNOASSAY) - 2022-08-11 Christelle [facility] COMPREHENSIVE DRUG SCREEN 18:42:00 [facility] COVID-19 (MOLECULAR TESTING 2022-08-[facility] 18:42:00 [facility] COVID INTERPRETATION 2022-08-11 Christelle Meghana [facility] 18:42:00 [facility] PROCALCITONIN 2022-08-[facility] 18:41:00 [facility] POCT GLUCOSE (AUTOMATED) 2022-08-11 [facility] 18:04:00 [facility] POCT GLUCOSE (AUTOMATED) 2022-08-11 [facility] 15:26:00 [facility] VANCOMYCIN TROUGH 2022-08-11 [facility] 10:10:00 [facility] MAGNESIUM 2022-08-11 [facility] 06:14:00 [facility] BASIC METABOLIC PANEL (NA, K, 2022-08-11 Keaton Fang [facility] CL, CO2, GLUCOSE, BUN, 06:14:00 Medical ran CREATININE, CA) CBC WITH DIFF 2022-08-11 [facility] [place] 06:14:00 [facility] ACTIVATED PARTIAL THRMPLAS 2022-08-11 Krystal Rios [facility] GARCÍA 06:14:00 [facility] AC PANEL 20 + LACTIC ACID 2022-08-11 Nelly [facility] 06:14:00 Medical Branch POCT GLUCOSE (AUTOMATED) 2022-08-11 Eleazar [facility] 02:28:00 [facility] ACTIVATED PARTIAL THRMPLAS 2022-08-11 Krystal Rios [facility] GARCÍA 00:26:00 Medical Branch POCT GLUCOSE (AUTOMATED) 2022-08-11 Eleazar [facility] 00:26:00 [facility] ACUTE CARE VENOUS COOX PANEL 2022-08-10 Marysol [facility] 23:19:00 Medical Branch AC PANEL 20 + LACTIC ACID 2022-08-10 Nelly [facility] 22:25:00 [facility] URINE CULTURE 2022-08-10 [facility]sol [facility] xa 19:36:00 Medical Branch POCT GLUCOSE (AUTOMATED) 2022-08-10 Eleazar [facility] 19:34:00 [facility] AC PANEL 20 + LACTIC ACID 2022-08-10 Nelly [facility] 19:23:[address] [place] [address] CHEST PULMONARY ANGIOGRAM 2022-08-10 Marysol [facility] 18:20:29 Medical Branch AC PANEL 20 + LACTIC ACID 2022-08-10 Nelly [facility] 16:19:00 Medical Branch POCT GLUCOSE (AUTOMATED) 2022-08-10 Eleazar [facility] 15:50:00 [facility] AC PANEL 20 + LACTIC ACID 2022-08-10 Nelly [facility] 12:01:00 Medical Branch MAGNESIUM 2022-08-10 Deniz Amaya [facility] ex 10:30:00 [facility] BASIC METABOLIC PANEL (NA, K, 2022-08-10 Deniz Amaya [facility] CL, CO2, GLUCOSE, BUN, 10:30:00 [facility] ran CREATININE, CA) VANCOMYCIN RANDOM LEVEL 2022-08-10 Jaciel Regalado [facility] 10:30:00 Medical Branch AC PANEL 20 + LACTIC ACID 2022-08-10 Nelly [facility] 09:01:00 Medical Branch XR CHEST 1 VW 2022-08-10 Disha Del Angel [facility] 06:42:00 [facility] AC PANEL 20 + LACTIC ACID 2022-08-10 Nelly [facility] 05:58:00 [facility] GALV ONLY - INFLUENZA A B RSV 2022-08-10 [facility] 04:59:00 Medical Branch RESPIRATORY PANEL BY PCR 2022-08-10 Nelly [facility] 04:59:00 [facility] PROCALCITONIN 2022-08-10 Marysol [facility] 02:32:00 [facility] POCT GLUCOSE (AUTOMATED) 2022-08-10 [facility] 02:31[facility]00 [facility] MRSA / MSSA SCREEN BY PCR, 2022-08-10 Shaggy Gregg [facility] NARES 02:31:00 [facility] CT ABDOMEN PELVIS WO CONTRAST 2022-08-09 Shaggy Gregg [facility] 23:07:46 [facility] POCT GLUCOSE (AUTOMATED) 2022-08-09 Eleazar [facility] 22:48:00 [facility] XR CHEST 1 VW 2022-08-09 Marysol [facility] xa 17:38:00 [facility] TRANSTHORACIC ECHO (TTE) 2022-08-09 Ruthann Del Angel [facility] COMPLETE W/ CONTRAST 16:35:00 Medical [facility] LACTATE DEHYDROGENASE 2022-08-09 [facility] 15:47:00 [facility] BLOOD CULTURE SCREEN 2022-08-09 [facility] 15:44:00 [facility] ACUTE CARE ARTERIAL BLOOD GAS 2022-08-09 Shaggy Gregg [facility] 15:30:00 [facility] POCT GLUCOSE (AUTOMATED) 2022-08-09 Eleazar [facility] 13:06:00 [facility] POCT GLUCOSE (AUTOMATED) 2022-08-09 [facility] 12:00:00 [facility] PHOSPHORUS 2022-08-09 Ivan Vang [facility] xas 11:54:00 Medical Branch MAGNESIUM 2022-08-09 [facility] 11:54:00 [facility] C-REACTIVE PROTEIN 2022-08-09 [facility] 11:54:00 [facility] TROPONIN I 2022-08-09 [facility] xa 11:54:00 [facility] HEPATIC FUNCTION PANEL 2022-08-09 [facility] ([id number]) (ALB,T.PRO,BILI 11:54:00 [facility] T,BU/BC,ALT,AST,ALK PHOS) BASIC METABOLIC PANEL (NA, K, 2022-08-09 [facility], CO2, GLUCOSE, BUN, 11:54:00 [facility] ranch CREATININE, CA) LIPID PANEL ([id number])(TOTAL 2022-08-09 [facility] CHOLESTEROL, TRIGLYCERIDES, 11:54:00 [facility] HDL) SEDIMENTATION RATE 2022-08-09 [facility] 11:54:00 [facility] CBC WITH DIFF 2022-08-09 [facility] 11:54:00 [facility] GLYCOSYLATED HEMOGLOBIN (A1C) 2022-08-09 Ciera [facility] 11:54:00 [facility] PROTHROMBIN TIME / INR 2022-08-09 [facility] 11:54:00 [facility] N-TERMINAL PRO-BNP 2022-08-09 [facility] 11:54:00 [facility] LACTIC ACID WHOLE BLOOD 2022-08-09 Ciera Ivan [facility] 11:54:00 [facility] LACTIC ACID WHOLE BLOOD 2022-08-09 Elizabeth Ryees [facility] 10:13:00 [facility] URINE DRUG (IMMUNOASSAY) - 2022-08-09 Elizabeth Reyes [facility] COMPREHENSIVE DRUG SCREEN 07:38:00 [facility] URINALYSIS 2022-08-09 Elizabeth Reyes [facility] exas 07:38:00 [facility] POCT GLUCOSE(AGE >30DAYS) 2022-08-09 Elizabeth Reyes [facility] 06:35:00 Medical Branch POCT GLUCOSE (AUTOMATED) 2022-08-09 Elizabeth Reyes [facility] 06:33:00 Medical Branch LACTIC ACID WHOLE BLOOD 2022-08-09 Elizabeth Reyes [facility] 06:31:00 Medical Branch HB ECG ROUTINE & RHYTHM STRIP 2022-08-09 Ruthann Del Angel [facility] 06:20:38 Medical Branch MAGNESIUM 2022-08-09 SheridanmnElizabeth [facility] ex 03:59:00 Medical Branch TROPONIN I 2022-08-[address] [facility] ex 03:59:00 Medical Branch XR CHEST 1 VW 2022-08-09 [facility]olin[place] [facility] 02:48:30 Medical Branch LIPASE 2022-08-[address] [place] [facility] ex 02:34:00 Medical Branch TROPONIN I 2022-08-09 [facility]olin[place] [facility] 02:34:00 Medical Branch COMP. METABOLIC PANEL ([id number]) 2022-08-09 Elizabeth Reyes [facility] 02:34:00 Medical Branch CBC WITH DIFF 2022-08-09 [place]olin[place] [facility] ex 02:34:00 Medical Branch PROTHROMBIN TIME / INR 2022-08-09 Elizabeth Reyes [facility] 02:34:00 Medical Branch EKG-12 LEAD 2022-08-09 [facility] xas 01:17:43 [facility] CONSENT/REFUSAL FOR DIAGNOSIS 2022-08-09 Doctor Unassigned, [facility] AND TREATMENT 00:52:34 [facility] ECG ED PRELIMINARY 2022-08-07 Jacqueline Cardona Ho spital INTERPRETATION 23:18:52 Rosales US GALLBLADDER 2022-08-07 Jacqueline Cardona Hospi bhargav 22:33:26 Rosales XR CHEST 2 VW 2022-08-07 Jacqueline Cardona Hos[facility] b[facility]argav 21:45:10 [facility] HC COMPLETE BLD COUNT W/AUTO 2022-08-07 Jacqueline Cardona [facility] DIFF 21:20:00 Rosales COMPREHENSIVE METABOLIC PANEL 2022-08-07 Jacqueline Cardona [facility] 21:20:00 Rosales TROPONIN T 2022-08-07 Jacqueline Cardona [facility] 21:20:00 Rosales ESTIMATED GFR 2022-08-07 Jacqueline Cardona [facility] 21:20:00 Rosales AMYLASE LEVEL 2022-08-07 Jacqueline Cardona [facility] 21:20:00 [facility] LIPASE LEVEL 2022-08-07 Jacqueline Cardona [facility] 21:20:00 [facility] ECG 12-LEAD 2022-08-07 Jacqueline Cardona [facility] 20:40:[address] TRAUMA HEAD WO CONTRAST 2022-07-21 [facility] 01:15[facility] TRAUMA CERVICAL SPINE WO 2022-07-21 Becki Hooker U [facility] CONTRAST 01:15:47 Medical Branch NOTICE OF PRIVACY PRACTICES 2022-07-21 Doctor Unassigned, [facility] 00:41:54 [facility] CONSENT/REFUSAL FOR DIAGNOSIS 2022-07-21 Doctor Unassigned, [facility] AND TREATMENT 00:41:24 [facility] HC ARTERIAL DOPPLER LEG UNI 2021-04-[address] [facility] 16:14:00 [facility] URINE DRUGS OF ABUSE SCREEN 2021-04-06 [facility] 16:49:00 Sukhjinder Ne URINALYSIS SCREEN AND 2021-04-06 [facility], WITH REFLEX TO 16:49:00 Iadara Ne CULTURE POC GLUCOSE 2021-04-06 Reg Courtney, [facility] 16:41:00 Iadara Ne POC GLUCOSE 2021-04-06 Reg Courtney, [facility] 12:19:00 Iadara Ne COVID-19 QUALITATIVE RT-PCR 2021-04-06 [facility] 10:18:00 Margie HEMOGLOBIN A1C 2021-04-06 [facility] 08:24:00 Margie HC COMPLETE BLD COUNT W/AUTO 2021-04-06 [facility] DIFF 08:24:00 Margie MAGNESIUM LEVEL 2021-04-06 [facility] 08:24:00 Margie COMPREHENSIVE METABOLIC PANEL 2021-04-06 [facility] 08:24:00 Margie LIPASE LEVEL 2021-04-06 [facility] 08:24:00 Margie THYROID STIMULATING HORMONE 2021-04-06 [facility] 08:24:00 Margie PROTHROMBIN TIME WITH INR 2021-04-06 [facility] 08:24:00 Margie PARTIAL THROMBOPLASTIN TIME 2021-04-06 [facility] (PTT) 08:24:00 Margie ESTIMATED GFR 2021-04-06 [facility] 08:24:00 Margie POC GLUCOSE 2021-04-06 Dale Bailey Ho spital 02:20:00 TROPONIN 2021-04-06 Kayleigh, [facility] 01:35:00 [facility]OPONIN 2021-04-05 [facility] 23:41:00 [facility] XR CHEST 1 VW PORTABLE 2021-04-05 [facility] 21:45:03 ECG ED PRELIMINARY 2021-04-05 [facility] pital INTERPRETATION 21:14:30 COMPREHENSIVE METABOLIC PANEL 2021-04-05 Kayleigh [facility] 20:38:00 [facility] HC COMPLETE BLD COUNT W/AUTO 2021-04-05 [facility] DIFF 20:38:00 [facility] B NATRIURETIC PEPTIDE 2021-04-[address] [facility] 20:38:00 [facility] PROTHROMBIN TIME WITH INR 2021-04-05 [facility] 20:38:00 [facility] PARTIAL THROMBOPLASTIN TIME 2021-04-[address] [facility] (PTT) 20:38:00 Penny ESTIMATED GFR 2021-04-05 [facility] 20:38:00 [facility] TROPONIN, I-STAT 2021-04-05 [facility] 20:38:00 [facility] ECG 12-LEAD 2021-04-05 [facility] 20:34:28 [facility] MAGNESIUM 2020-05-22 [facility] xa 09:45:00 Medical Branch TROPONIN I 2020-05-22 [facility] exas 09:45:00 Medical Branch BASIC METABOLIC PANEL (NA, K, 2020-05-22 [facility] CL, CO2, GLUCOSE, BUN, 09:45:00 Medical B ranch CREATININE, CA) MAGNESIUM 2020-05-21 [facility] xa 09:13:00 Medical Branch BASIC METABOLIC PANEL (NA, K, 2020-05-21 [facility] CL, CO2, GLUCOSE, BUN, 09:13:00 Medical B ranch CREATININE, CA) MAGNESIUM 2020-05-20 [facility] xa 09:55:00 Medical Branch BASIC METABOLIC PANEL (NA, K, 2020-05-20 [facility] CL, CO2, GLUCOSE, BUN, 09:55:00 Medical B ranch CREATININE, CA) EXTRA TUBE LAV 2020-05-20 Reuben Wan [facility] 09:55:00 Medical Branch PROCALCITONIN 2020-05-19 [facility] 18:25:00 Medical Branch PROTHROMBIN TIME / INR 2020-05-19 [facility] 16:17:00 Medical Branch D-DIMER 2020-05-19 [facility] 16:17:00 Medical Branch ACTIVATED PARTIAL THRMPLAS 2020-05-19 [facility] GARCÍA 16:17:00 Medical Branch PNEUMOCOCCAL ANTIGEN 2020-05-19 [facility] 10:36:00 Medical Branch BLOOD CULTURE SCREEN 2020-05-19 [facility] 08:41:00 Medical Branch BLOOD CULTURE SCREEN 2020-05-19 [facility] 08:27:00 Medical Branch PHOSPHORUS 2020-05-19 [facility] 08:24:00 Medical Branch LACTATE DEHYDROGENASE 2020-05-19 [facility] 08:24:00 Medical Branch MAGNESIUM 2020-05-19 [facility] 08:24:00 Medical Branch FERRITIN SERUM 2020-05-19 [facility] 08:24:00 [facility] C-REACTIVE PROTEIN 2020-05-19 [facility] 08:24:00 [facility] HEPATIC FUNCTION PANEL 2020-05-19 [facility] ([id number]) (ALB,T.PRO,BILI 08:24:00 Medical Branch T,BU/BC,ALT,AST,ALK PHOS) BASIC METABOLIC PANEL (NA, K, 2020-05-19 [facility] CL, CO2, GLUCOSE, BUN, 08:24:00 Medical B ranch CREATININE, CA) CBC WITH DIFF 2020-05-19 [facility] 08:24:00 [facility] N-TERMINAL PRO-BNP 2020-05-19 [facility] 08:24:00 [facility] LACTIC ACID WHOLE BLOOD 2020-05-19 [facility] 08:23:00 Medical Branch MRSA / MSSA SCREEN BY PCR, 2020-05-19 [facility] NARES 08:02:00 Medical Branch URINE CULTURE 2020-05-19 [facility] 08:00:00 Medical Branch COVID-19 (PCR MOLECULAR 2020-05-19 Isaac Schroeder [facility] TESTING) 07:16:00 Medical Branch COVID-19 (ID NOW RAPID 2020-05-19 [facility] TESTING) 03:24:[address] CERVICAL SPINE WO CONTRAST 2020-05-19 [facility] 01:43:[address] HEAD WO CONTRAST 2020-05-19 Janae Still [facility] 01:42:26 Medical Branch TROPONIN I 2020-05-19 Janae Still [facility] xas 00:09:00 Medical Branch BASIC METABOLIC PANEL (NA, K, 2020-05-19 Janae Still [facility] CL, CO2, GLUCOSE, BUN, 00:09:00 Medical B ranch CREATININE, CA) AC PANEL 20 + LACTIC ACID 2020-05-18 Janae Still [facility] 23:53:00 Medical Branch CRITICAL CARE 2020-05-18 [facility] x[facility] 23:49:29 Medical Branch URINALYSIS 2020-05-18 Che[facility] xa 23:47:00 Medical Branch XR CHEST 1 VW 2020-05-18 [facility] x[facility] 23:31:40 Medical Branch SALICYLATE 2020-05-18 [facility] 23:28:00 Medical Branch ETHANOL 2020-05-18 [facility] 23:28:00 Medical Branch CBC WITH DIFF 2020-05-18 Cheko [facility] 23:28:00 Medical Branch LACTIC ACID WHOLE BLOOD 2020-05-18 Cheko [facility] 23:23:00 Medical Branch EKG-12 LEAD 2020-05-18 Che[facility] x[facility] 23:22:21 Medical Branch EKG-12 LEAD 2020-05-18 [facility] x[facility] 23:15:55 Medical Branch ADC / LCC - DRUG SCREEN 2020-05-18 Cheko [facility] TRIAGE 13:47:00 Medical Branch EMERGENCY DEPARTMENT 2020-05-18 Doctor Unassigned, [facility] DOCUMENTS 05:01:00 [facility] AGREEMENTS AUTHORIZATIONS AND 2020-05-18 Doctor Unassigned, [facility] IRREVOCABLE ASSIGNMENTS (FORM 05:01:00 Elizabeth Ca dicwv Branch 2000) CT CHEST PULMONARY ANGIOGRAM 2020-05-17 Arvind Guerra [facility] 02:38:05 Medical Branch XR CHEST 1 VW COVID 2020-05-17 Elizabeth Reyes [facility] 01:28:28 Medical Branch COVID-19 (ID NOW RAPID 2020-05-17 Arvind Guerra [facility] TESTING) 01:08:00 Medical Branch PROTHROMBIN TIME / INR 2020-05-17 Arvind Guerra [facility] 01:03:00 Medical Branch D-DIMER 2020-05-17 Ibikunle, [facility] 01:03:00 Medical Branch LIPASE 2020-05-17 YvetteduranraleighElizabeth [facility] 01:01:00 Medical Branch TROPONIN I 2020-05-17 [place]vettecarolinas [facility] 01:01:00 Medical Branch COMP. METABOLIC PANEL ([id number]) 2020-05-17 Elizabeth Reyes [facility] 01:01:00 Medical Branch CBC WITH DIFF 2020-05-17 [facility] 01:01:00 Medical Branch N-TERMINAL PRO-BNP 2020-05-17 [facility] 01:01:00 Medical Branch EKG-12 LEAD 2020-05-17 [facility] 01:00:46 Medical Branch NOTICE OF PRIVACY PRACTICES 2020-05-17 Doctor Unassigned, [facility] 00:50:07 [facility] CONSENT/REFUSAL FOR DIAGNOSIS 2020-05-17 Doctor Unassigned, [facility] AND TREATMENT 00:49:55 [facility] NOTICE OF PRIVACY PRACTICES 2019-12-02 Doctor Unassigned, [facility] 20:25:32 [facility] CONSENT/REFUSAL FOR DIAGNOSIS 2019-12-02 Doctor Unassigned, [facility]ATMENT 20:25:20 [facility] Fundoplication 2019-09-17 Letha Mendes 06:00:00 AUTHORIZATION FOR RELEASE OF 2019-04-27 Doctor Unassigned, [facility] PHI 05:01:00 [facility] Lumbar epidural steroid 2016-12-18 Letha Cazadero injection 05:00:00 Lumbar epidural steroid 2016-12-12 Letha Cazadero injection<sup>1</sup> 05:00:00 Fusion of lumbar 2013-09-29 Letha Jimenes n spine<sup>2</sup> 00:00:00 Fusion of thoracic 2011-09-29 Letha Tripathi bebe spine<sup>3</sup> 00:00:00 Spinal fusion for scoliosis Danie Mendes Plan of Care Planned Activity Planned Date Details Comments Source Future Scheduled 2024-01-[address] [facility] 00:[facility]:00 (procedure) [code = [facility] [id number]] Future Scheduled 2024-01-[address] [facility] 00:00:00 (procedure) [code = [facility] [id number]] Future Scheduled 2024-01-[address] [facility] 00:00:00 (procedure) [code = [facility] [id number]] Future Scheduled 2022-08-21 COVID-19 [facility]ACCINE ([facility] 12:08:37 Booster for Moderna series) [code = COVID-19 VACCINE (3 - Booster for Moderna series)] Future Scheduled 2022-08-21 INFLUENZA VACCINE [facility] 12:08:37 [code = INFLUENZA VACCINE] Future Scheduled 2022-08-21 HEPATITIS B VACCINES [facility] 12:08:37 (1 of 3 - 3-dose series) [code = HEPATITIS B VACCINES (1 of 3 - 3-dose series)] Future Scheduled 2022-08-21 Hepatitis C screening [facility] 12:08:37 (procedure) [code = [id number]] Future Scheduled 2022-05-30 INFLUENZA VACCINE (#1) [facility] 00:[facility]:00 [code = INFLUENZA Medical Ce nter VACCINE (#1)] Future Scheduled 2021-10-10 COVID-19 VACCINE (1) [facility] 23:57:34 [code = COVID-19 VACCINE (1)] Future Scheduled 2021-10-10 Hepatitis C screening [facility] 23:57:34 (procedure) [code = [id number]] Future Scheduled 2021-10-10 INFLUENZA VACCINE [facility] 23:57:34 [code = INFLUENZA VACCINE] Future Scheduled 2021-10-10 COVID-19 VACCINE (1) [facility] 23:57:34 [code = COVID-19 VACCINE (1)] Future Scheduled 2021-10-10 [facility] 23:57:34 (procedure) [code = [id number]] Future Scheduled 2021-10-10 INFLUENZA VACCINE [facility] 23:57:34 [code = INFLUENZA VACCINE] Future Scheduled 2021-09-[address] [facility] 00:00:00 (12+) [code = [facility] DEPRESSION SCREENING (12+)] Future Scheduled 2021-05-30 INFLUENZA VACCINE (#1) [facility] 00:00:00 [code = INFLUENZA Medical Ce nter VACCINE (#1)] Future Scheduled 2021-05-30 INFLUENZA VACCINE (#1) [facility] 00:00:00 [code = INFLUENZA Medical Ce nter VACCINE (#1)] Future Scheduled 2020-09-[address] [facility] 00:00:00 (12+) [code = Medical Center DEPRESSION SCREENING (12+)] Future Scheduled 2020-09-[address] [facility] 00:00:00 (12+) [code = Medical Center DEPRESSION SCREENING (12+)] Future Scheduled 2016 DTAP/TDAP/TD VACCINES [facility] 00:00:00 (1 - Tdap) [code = Medical C enter DTAP/TDAP/TD VACCINES (1 - Tdap)] Future Scheduled 2016 DTAP/TDAP/TD VACCINES [facility] 00:00:00 (1 - Tdap) [code = Medical C enter DTAP/TDAP/TD VACCINES (1 - Tdap)] Future Scheduled 2016 DTAP/TDAP/TD VACCINES [facility] 00:00:00 (1 - Tdap) [code = Medical C enter DTAP/TDAP/TD VACCINES (1 - Tdap)] Future Scheduled 2015 HEPATITIS C [facility]CRE[facility]ING [facility] 00:00:00 [code = HEPATITIS C Medical Center SCREENING] Future Scheduled 2015 HEPATITIS C [facility]CRE[facility]ING [facility] 00:00:00 [code = HEPATITIS C Medical Center SCREENING] Future Scheduled 2015 HEPATITIS C [facility]CRE[facility]ING [facility] 00:00:00 [code = HEPATITIS C Medical Center SCREENING] Future Scheduled 2009 COVID-19 VACCINE (1) [facility] 00:00:00 [code = COVID-[address] VACCINE (1)] Future Scheduled 2009 COVID-19 VACCINE (1) [facility] 00:00:00 [code = COVID-[address] VACCINE (1)] Future Scheduled [address] [facility] Test 00:00:00 Counseling and Medical Cente r Screening (12+) [code = Tobacco Cessation Counseling and Screening (12+)] Future Scheduled [address] [facility] Test 00:00:00 0-64 YRS (1 of 4 - Medical C enter PCV13) [code = PNEUMOCOCCAL VACCINE 0-64 YRS (1 of 4 - PCV13)] Future Scheduled [address] [facility] Test 00:00:00 0-64 YRS (1 of 4 - Medical C enter PCV13) [code = PNEUMOCOCCAL VACCINE 0-64 YRS (1 of 4 - PCV13)] Future Scheduled [address] [facility] Test 00:00:00 0-64 YRS (1 - PCV) Medical C enter [code = PNEUMOCOCCAL VACCINE 0-64 YRS (1 - PCV)] Future Scheduled 1997 COVID-19 VACCINE (#1) [facility] 00:00:00 [code = COVID-[address] VACCINE (#1)] Encounters Start End Encounter Admission Attending Care Care Encounter Source Date/Time Date/Time Type Type Clinicians Facility Department ID 2021-07-27 Emergency [facility] [id number] Univers 13:43:52 ity [facility] 2021-07-27 Emergency [facility] [id number] Univers 13:13:57 ity [facility] 2021-07-26 Emergency [facility] [id number] Univers 12:50:03 ity [facility] 2022-08-21 2022-08-21 Patient Valerie Love [id number] Methodi 00:00:00 00:00:[address] 3.430.2.7 Hospit a .3.449804 l .8 2022-08-21 2022-08-21 Patient Sharmaine Galeano 1.2.840.114 [id number] Univers 00:00:00 00:00:00 Outreach E JAVIER 350.1.13.10 i ty donte [place] [id number] [address] 2022-08-15 2022-08-20 [facility] Patrick Burciaga 1.2.840.1 14741 1043 [id number] Methodi 18:57:00 14:56:00 Encounter Demetria Lopez 24133.1.1 9 67 [facility] 3.430[facility]7 H[facility]ita Angelina Berman .3.679220 l .8 2022-08-15 2022-08-20 Inpatient EREN [facility] 012 [id number] 0676 Jachin 00:00:00 00:00:[address] 2022-08-15 2022-08-15 Travel 1.2.840.1 1.2.308.985 5737 [id number] Methodi 00:00:00 00:00:[address] 3.430.2.7 0.2.7.3.698 Ho spita .3.593065 084.8 l .8 2022-08-14 2022-08-14 Transition HUMERA Ivey 1.2.840.114 [id number] Univers 00:00:00 00:00:00 of Care Jaz HERRERA 350.1.13.10 ity of [place] [phone] [facility] [address] 2022-08-08 2022-08-13 Inpatient Newton MCGILL [facility] [id number] Univers 19:11:00 18:18:00 AGAPITO MENDOZA ity of [facility] 2022-08-08 2022-08-13 [facility] Elizabeth Reyes 1.2.840. 114 [id number] Univers 19:11:00 18:18:00 Encounter Mj Bush 350.1.1 3.10 ity [facility] 4.2.7.2.686 [place] Agapito Mcgill [phone] Medical 5 Branch 2022-08-13 2022-08-13 Telephone ARIA Morales 1.2.840.114 [id number] Univers 00:00:00 00:00:00 Shiorn HEALTH 350.1.13.10 i ty of CL[place] [id number] [facility] 084 Branch 2022-08-07 2022-08-07 Emergency Iman, 1.2.840.1 [id number] Methodi 15:02:00 17:31:[address] [place] 3.430.2.7 Hospit a .3.664852 l .8 2022-08-07 2022-08-07 Emergency IMAN, [facility] [id number] [place] [address] 00:00:00 00:00:[address] 2022-08-07 2022-08-07 Travel 1.2.840.1 1.2.001.837 7515 [id number] Methodi 00:00:00 00:00:[address] 3.430.2.7 0.2.7.3.698 Ho spita .3.800161 084.8 l .8 2022-07-20 2022-07-20 Emergency [facility] ERT [id number] Univers 20:01:00 21:29:00 BECKI desai [facility] 2022-07-20 2022-07-20 Emergency [facility] 1.2.840.114 [id number] Univers 20:01:00 21:29:00 Becki FERNANDEZ 350.1.13.10 ity [facility] 4.2.7.2.686 [facility] [id number] [place] 550674 Branch 2021-04-09 2021-04-[address] [facility] [id number] [address] 00:00[facility]00 00:00:00 ion Celina Mccabe [facility] 2021-04-09 2021-04-[address] [facility] [id number] 00:00:00 00:00:00 Celina Mccabe [facility] 2021-04-08 2021-04-[address] [facility] [id number] 15:00:00 18:06:00 [facility] 2021-04-08 2021-04-08 Emergency ER [facility] Emergency [id number] [facility] 14:59:00 14:59:00 2021-04-05 2021-04-06 Emergency Scotty Reddy 1.2.840.1 [id number] 059 [id number] Methodi 15:09:00 19:25:00 Dale Bailey Malka 93284.1.[address] [place], Teresa 3.430.2.7 H ospita Neyda Salmoniris Ne .3.01183 4 l .8 2020-12-19 2020-12-19 Patient [facility] 1.2.840.[address] [place] [address] 00:00:00 00:00:00 Outreach Servando PRIMARY 350.1.13.10 i ty of [facility] 4.2.7.2.[place]UB[place] [id number] [facility] 388 Branch 2020-08-12 2020-08-13 Emergency PACO, [facility] 064 [id number] Jachin 00:00:00 00:00:00 GAGAN Garrido Method i st 2020-05-23 2020-05-23 Transition Humera Ivey 1.2.840.114 777 [id number] 00:00:00 00:00:00 of Care Jaz Herrera 350.1.13.10 [place] 4.2.7.2.686 [id number] [facility] 2020-05-23 2020-05-23 Transition Humera Ivey 1.2.840.114 777 [id number] [facility] 00:00:00 00:00:00 of Care Jaz Herrera 350.1.13.10 ity of [place] [id number] [facility] [address] 2020-05-18 2020-05-22 [facility] Janae Still 1.2.840.1 14 [id number] 18:04:00 18:17:00 Encounter [place] [facility].1.13. [facility] 4.2.7.2. 686 [place] [id number] Reuben Wan 096 2020-05-18 2020-05-22 [facility] Janae Still 1.2.840.1 14 [id number] [facility] 18:04:00 18:17:00 Encounter [place] 350.1.13. 10 ity [place] [facility] 4.2.7.2. 686 [facility] [id number] [facility] Reuben Wan 096 Branch 2020-05-16 2020-05-17 Emergency [facility] 1.2.840.114 [id number] 19:53:00 00:13:00 Judieandrés [place]zy [place] 350.1.13.10 [place] 4.2.7.2.686 [place] [id number] [employer] 2020-05-16 2020-05-17 Emergency [facility] 1.2.840.114 [id number] [facility] 19:53:00 00:13:00 Judieandrés [place]zy [place] 350.1.13.10 ity [facility] 4.2.7.2.686 [facility] [id number] [facility] 084 [place] 2019-12-10 2020-01-16 Inpatient HCAWU [facility] [id number] [facility] 18:44:00 14:35:19 57 [facility] 2020-01-01 2020-01-02 Emergency JEFFREY DOBBS [facility] 064 [id number] Jachin 00:00:00 00:00:00 185 Method i 2019-12-11 2019-12-12 [facility] [id number] [id number] Memoria 23:56:51 00:49:00 r Vaughn [facility] 2019-12-11 2019-12-12 [facility] [id number] Memoria 23:56:51 00:49:00 r Vaughn [facility] 2019-12-11 2019-12-12 [facility] [id number] Memoria 23:56:51 00:49:00 malka [facility] 2019-12-11 2019-12-11 Outpatient Jakob Coon [id number] [id number] 18:56:51 19:49:00 02 2019-12-11 2019-12-[address] [id number] 18:56:51 19:49:00 Q 02 2019-12-11 2019-12-11 Emergency E COON, JAKOB BL BL 7502 MHBL 18:56:00 19:49:00 2019-12-11 2019-12-11 Outpatient Nette [facility] [id number] [facility] 16:00:00 16:00:00 Salijj 51 [facility] 2019-12-07 2019-12-07 Emergency BAKSHY, [facility] 064 [id number] Jachin 00:00:00 00:00:00 BJ 928 Method i 2019-12-03 2019-12-05 Inpatient MCCARTAN, [facility] 064 [id number] Jachin 00:00:00 00:00:00 MANGO 425 Method i 2019-12-02 2019-12-03 [facility] 20610 [id number] Memoria 23:01:45 02:45:00 r [place] 01 [facility] 2019-12-02 2019-12-03 Emergency [facility] 06307 66427 Memoria 23:01:45 02:45:[address] 2019-12-02 2019-12-03 [facility] 74268 [id number] Memoria 23:01:45 02:45:[address] 2019-12-02 2019-12-02 Outpatient Coon, Jakob PL [address] 4730 [id number] 17:01:45 20:45:00 Q 2019-12-02 2019-12-02 Outpatient Coon, Jakob PL PL 4730 [id number] 17:01:45 20:45:00 Q 2019-12-02 2019-12-02 Emergency E COON, JAKOB BL BL 7501 MHBL 17:01:00 20:45:00 2019-12-02 2019-12-02 Emergency Singer [facility] 1.2.233.320 [id number] 0325 14:36:25 16:41:00 Tom Fernandez 350.1.13.10 [place] 4.2.7.2.686 [place] [id number] 084 2019-12-02 2019-12-02 Emergency Singer MSTIFFANIE 1.2.440.594 2792 0325 [facility] 14:36:25 16:41:00 Tom Fernandez 350.1.13.10 i ty of [place] 4.2.7.2.686 [facility] [id number] [facility] 084 Branch 2019-12-02 2019-12-02 Orders Doctor JAKOB 1.2.840.114 [id number] 00:00:00 00:00:00 Only Unassigned, BIENVENIDO 350.1.13.10 Elizabeth [facility] 4.2.7.2.686 [id number] 009 2019-12-02 2019-12-02 Orders Doctor JAKOB 1.2.840.114 [id number] Univers 00:00:00 00:00:00 Only Unassigned, BIENVENIDO 350.1.13.10 ity [facility] 4.2.7.2.686 [facility] [id number] [facility] 009 [place] 2019-11-30 2019-12-01 Emergency [facility] [id number] Memoria 22:59:56 02:15:00 r [place] 00 [facility] 2019-11-30 2019-12-01 Emergency [facility] 63212 [id number] Memoria 22:59:56 02:15:00 r [place] 00 [facility] 2019-11-30 2019-12-01 [facility] [id number] Memoria 22:59:56 02:15:00 r Vaughn 00 [facility] 2019-11-30 2019-11-30 Outpatient Whitley, MHPL MHPL 4730 [id number] 16:59:56 20:15:00 Jose Muse 00 2019-11-30 2019-11-30 Outpatient Whitley, MHPL MHPL 4730 [id number] 16:59:56 20:15:00 Jose Muse 00 2019-11-30 2019-11-30 Emergency E ANA PAULA, MHBL MHBL 7500 MHBL 16:59:00 20:15:00 JOSE 2019-11-22 2019-11-22 Telephone GERARDO Morales 1.2.217.647 [id number] 00:00:00 00:00:00 Dionmela Fernandez 350.1.13.10 [place] 4.2.7.2.686 [facility] [id number] [address] 2019-11-22 2019-11-22 [facility] 1.2.421.321 [id number] 2571 Univers 00:00:00 00:00:00 Sami Fernandez 350.1.13.10 i ty of [place] 4.2.7.2.686 Jake s Joel [id number] Ca dical [address] 2019-09-19 2019-09-19 Emergency X STILL, [facility] ERT [id number] Univers 09:26:17 12:12:00 [facility] 2019-09-17 2019-09-18 Outpatient LIZETTE YANEZ [facility] [id number] [place]achin 00:00:00 00:00:00 226 Method i 2019-09-16 2019-09-16 Emergency X QUINN III, [facility] ERT [id number] Univers 18:07:57 18:42:00 BRENT [facility] 2019-07-13 2019-07-13 Outpatient ERGUN, [facility] [id number] Jachin 00:00:00 00:00:00 EDGAR 664 Method i 2019-06-22 2019-06-22 Outpatient LIZETTE YANEZ [facility] [id number] [place]in 00:00:00 00:00:00 576 Method i 2019-04-27 2019-04-27 Orders Doctor ROBERT 1.2.840.114 [id number] 00:00:00 00:00:00 Only Unassigned, BIENVENIDO 350.1.13.10 [facility] 4.2.7.2.686 [id number] 009 2019-04-27 2019-04-27 Orders Doctor ROBERT 1.2.840.114 [id number] Univers 00:00:00 00:00:00 Only Unassigned, BIENVENIDO 350.1.13.10 ity of [facility] 4.2.7.2.686 [place] as [id number] [address] 2017-01-03 2017-01-04 Day [facility] [id number] Memoria 12:22:00 04:59:00 Surgery r Vaughn 02 l [facility] 2017-01-03 2017-01-04 Day [facility] [id number] Memoria 12:22:00 04:59:00 Surgery r [place] 02 l [facility] 2017-01-03 2017-01-04 Day [facility] [id number] Memoria 12:22:00 04:59:00 Surgery r Vaughn 02 l [facility] 2017-01-03 2017-01-03 Outpatient Jenn [facility] [id number] 07:22:00 23:59:00 Jakob Dang 02 2017-01-03 2017-01-03 Outpatient Raeamanda [facility] [id number] [id number] 07:22:00 23:59:00 Jakob D 02 2016-12-12 2016-12-13 [facility] [id number] Memoria 11:06:00 04:59:00 Surgery r Vaughn 01 l [facility] 2016-12-12 2016-12-13 Day [facility] [id number] Memoria 11:06:00 04:59:00 Surgery r [place] 01 l [facility] 2016-12-12 2016-12-13 Day [facility] [id number] Memoria 11:06:00 04:59:00 Surgery r Vaughn 01 l [facility] 2016-12-12 2016-12-12 Outpatient Raeamanda [facility] [id number] [id number] 06:06:00 23:59:00 Jakob Dang 01 2016-12-12 2016-12-12 Outpatient Raecjbrook [facility] 4045 [id number] 06:06:00 23:59:00 Jakob Dang 2016-09-19 2016-09-19 [facility] [id number] Memoria 19:38:00 21:37:00 r Vaughn 00 l [facility] 2016-09-19 2016-09-19 Emergency [facility] [id number] Memoria 19:38:00 21:37:00 r Vaughn 00 l [facility] 2016-09-19 2016-09-19 [facility] [id number] Memoria 19:38:00 21:37:00 r Vaughn 00 l [facility] 2016-09-19 2016-09-19 [facility] [id number] 13:38:00 15:37:00 Nnaemeka 00 Gene 2016-09-19 2016-09-19 Outpatient Melchor [facility] [id number] 13:38:00 15:37:00 Nnaemeka 00 Gene 2013-08-17 2013-08-18 Outpatient 2.16.840. 2.16.840.1. 4 [id number] Memoria 19:54:00 01:16:00 1.372867. 760482.3.61 l 3.615.0.1 5.0.100 Jalil n 00 Hospita l 2013-08-17 2013-08-18 Outpatient 2.16.840. 2.16.840.1. 4 [id number] Memoria 19:54:00 01:16:00 1.009385. 301406.3.61 l 3.615.0.1 5.0.100 Jalil n 00 Hospita l 2013-08-17 2013-08-18 Emergency nullFlavo MH [place] 54319 [id number] Memoria 19:45:00 01:16:00 r Medical 67 l [facility] 2013-08-17 2013-08-18 Emergency nullFlavo MH [place] [id number] Memoria 19:45:00 01:16:00 r Medical 67 l [facility] 2013-08-17 2013-08-18 Emergency nullFlavo MH [place] 62274 [id number] Memoria 19:45:00 01:16:00 r Medical 67 [facility] 2013-08-17 2013-08-17 AA nullFlavo MH [place] [id number] Memoria 19:45:00 19:45:00 r Medical 70 l [facility] 2013-08-17 2013-08-17 AA nullFlavo MH [place] [id number] Memoria 19:45:00 19:45:00 r Medical 70 l [facility] 2013-08-17 2013-08-17 AA nullFlavo MH [place] [id number] Memoria 19:45:00 19:45:00 r Medical 70 l [facility] 2011-10-11 2011-10-11 Outpatient nullFlavo MH [place] 4538 [id number] Memoria 09:10:00 09:10:00 r Medical 00 l [facility] 2011-10-11 2011-10-11 Outpatient nullFlavo [facility] [place] 4538 [id number] Memoria 09:10:00 09:10:00 [facility] 00 l [facility] Results Test Description Test Time Test Comments Results Result Comments Source POC glucose 2022-08-20 17:36:00 Test Item Value Reference Range Interpretation Comme nts POC glucose (test code = 104 mg/dL 65-99 H Ope rator Name: Jordana Van 02160-6) ID: [id number] hartable: [facility] 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 Interpretation (test code = Abnormal 73735-6) [facility] [id number] 01:47:59 Test Item Value Reference Range Interpretation Comments Ventricular rate (test code = 253) Atrial rate (test code = 255) QRSD interval (test code = 260) QT interval (test code = 264) QTC interval (test code = 265) P axis 1 (test code = 267) QRS axis 1 (test code = 268) T wave axis (test code = 270) EKG impression (test AV dissociation-RSR' or code = 273) QR pattern in V1 suggests right ventricular conduction delay-Borderline ECG-In automated comparison with ECG of 16-AUG-2022 03:21,-Current undetermined rhythm precludes rhythm comparison, [facility] RNA [Presence] in Respiratory specimen by RAYMUNDO with probe [id number] 23:18:23 Test Item Value Reference Range Interpretation Comments SARS-CoV-2 (COVID-19) RNA Not detected [Presence] in Respiratory specimen by RAYMUNDO with probe detection (test code = 78862-4) Whether patient is employed in a Unknown healthcare setting (test code = 20632-9) Whether the patient has symptoms Unknown related to condition of interest (test code = 84107-9) Whether the patient was Unknown hospitalized for condition of interest (test code = 43351-1) Whether the patient was admitted Unknown to intensive care unit (ICU) for condition of interest (test code = 93454-8) Whether patient resides in a Unknown congregate care setting (test code = 26156-0) status (test code = Unknown 38621-0) Date and time of symptom onset Unknown (test code = 97581-5) [facility] GLUCOSE (AUTOMATED)2022-08-12 23:22:33 Test Item Value Reference Range Interpretation Comments POCT GLU (test code = 7314391714) 134 mg/dL 70-110 H Lab Interpretation (test code = Abnormal 02573-3) [facility] GLUCOSE (AUTOMATED)2022-08-12 18:51:51 Test Item Value Reference Range Interpretation Comments POCT GLU (test code = 1700506620) 77 mg/dL 70-110 Lab Interpretation (test code = Normal 25655-2) [facility] [id number] 17:27:47 Test Item Value Reference Range Interpretation Comments TSH (test code = See_Comment Biotin has been 7212761736) reported to cau se a negative bias, interpret resul ts relative to brandon ontiveros's use of biotin. [Automated mess age] The system [employer] generated this result transmitted ref erence range: 0.45 - 4 .70 mIU/L. The refe rence range was not u sed to interpret this result as normal/abnor mal. Lab Interpretation (test Normal code = 51703-8) [facility] GLUCOSE (AUTOMATED)2022-08-12 14:57:10 Test Item Value Reference Range Interpretation Comments POCT GLU (test code = 9965659465) 101 mg/dL 70-110 Lab Interpretation (test code = Normal 19096-2) [facility] (NA, K, CL, CO2, GLUCOSE, BUN, CREATININE, CA)2022-08-12 11:58:06 Test Item Value Reference Range Interpretation Comments NA (test code = 139 mmol/L 135-145 3286496333) K (test code = 3.7 mmol/L 3.5-5.0 5150730599) CL (test code = 108 mmol/L 98-108 4560124924) CO2 TOTAL (test code = 27 mmol/L 23-31 4251107233) AGAP (test code = 2-16 7852689326) BUN (test code = 8 mg/dL 7-23 9631777590) GLUCOSE (test code = 101 mg/dL 70-110 7240500022) CREATININE (test code = 0.63 mg/dL 0.60-1.25 9018919119) CALCIUM (test code = 8.2 mg/dL 8.6-10.6 L 6966306577) eGFR (test code = mL/min/1.73m2 4747248529) HILLARY (test code = HILLARY) Association of Glomerular Filtration Rate (GFR) and Staging of Kidney Disease* + --+ --+ ------+| GFR (mL/min/1.73 m2) ?| With Kidney Damage ?| ?Without Kidney Damage+ --------+ --------+ +| ?>90 ?| ?Stage one ?| ? Normal ?+ ---+ ---+ -------+| ?60-89 ?| ?Stage two ?| ? Decreased GFR ? + --+ --+ ------+| ?30-59 ?| ?Stage three ?| ? Stage three ? + --+ --+ ------+| ?15-29 ?| ?Stage four ? | ? Stage four ?+ ---+ ---+ -------+| ?<15 (or dialysis) ? ?| ?Stage five ? | ? Stage five ?+ ---+ ---+ -------+ *Each stage assumes the associated GFR level has been in effect for at least three months. ?Stages 1 to 5, with or without kidney disease, indicate chronic kidney disease. Notes: Determination of stages one and two (with eGFR >59mL/min/1.73 m2) requires estimation of kidney damage for at least three months as defined by structural or functional abnormalities of the kidney, manifested by either:Pathological abnormalities or Markers of kidney damage (including abnormalities in the composition of the blood or urine or abnormalities in imaging tests). Lab Interpretation Abnormal (test code = 58675-1) [facility]-14 11:58:06 Test Item Value Reference Range Interpretation Comments MAGNESIUM (test code = 8019134647) 2.1 mg/dL 1.7-2.4 Lab Interpretation (test code = Normal 63924-9) [facility] WITHOUT [id number] 11:26:22 Test Item Value Reference Range Interpretation Comments WBC (test code = 6690-2) See_Comment [A utomated message] The system [employer] generated this result transmit katerin reference range : 4.20 - 10.70 10*3/?L. The reference range was not used to interpret this result as normal/abnormal . RBC (test code = 789-8) See_Comment L [Au tomated message] The system [employer] generated this result transmit katerin reference range : 4.26 - 5.52 10* 6/?L. The reference r kvng was not used to interpret this result as normal/abnormal . HGB (test code = 718-7) 9.4 g/dL 12.2-16.4 L HCT (test code = 4544-3) 28.0 % 38.4-49.3 L MCH (test code = 785-6) 26.3 pg 26.1-32.7 MCV (test code = 787-2) 78.4 fL 81.7-95.6 L MCHC (test code = 786-4) 33.6 g/dL 31.2-35.0 PLT (test code = 777-3) See_Comment [Au tomated message] The system [employer] generated this result transmit katerin reference range : 150 - 328 10*3/?L. The reference range was not used to interpret this result as normal/abnormal . MPV (test code = 8.7 fL 9.8-13.0 L 42365-4) RDW-CV (test code = 13.7 % 12.1-15.4 788-0) RDW-SD (test code = 39.2 fL 38.5-51.6 08219-3) NRBC x10^3 (test code = See_Comment [Au tomated message] 8775916269) The system [employer] generated this result transmit katerin reference range : 10*3/?L. The reference range was not used to interpret this result as normal/abnormal . NRBC/100 WBC (test code See_Comment [Au tomated message] = 9938145739) The system [facility] generated this result transmit katerin reference range : 0.0 - 10.0 /100 WBC s. The reference r kvng was not used to interpret this result as normal/abnormal . IPF % (test code = 3608148769) Lab Interpretation (test Abnormal code = 19063-9) [facility]2022-08-12 03:38:45 Test Item Value Reference Range Interpretation Comments POCT GLU (test code = 5137536069) 111 mg/dL 70-110 H Lab Interpretation (test code = Abnormal 81310-4) [facility]2022-08-11 23:25:06 Test Item Value Reference Range Interpretation Comments POCT GLU (test code = 4134672795) 119 mg/dL 70-110 H Lab Interpretation (test code = Abnormal 11922-3) [facility] Dallas[facility]AL[facility]ONIN2022-11-13 22:04:55 Test Item Value Reference Interpretation Comments Range Procalcitonin (test 0.02 ng/mL See_Comment [Automa katerin code = 0040068557) message] The system which generated this result transmitted reference range: <=0.07. The reference range was not used to interpret this result as normal/abnormal . HILLARY (test code = INTERPRETATION OF HILLARY) PROCALCITONIN RESULTS IN ADULTS >= 18 YEARS OF AGE Initiation and discontinuation of antibiotics on patients with suspected or confirmed Lower Respiratory Tract Infection in Adults >= 18 years of age. + +------ + ----+ +|Procalcit onin |Interpretation ?|Antibiotic ? ? |Considerations ? |ng/mL ? | ?|recommendation | ? + +------ + ----+ +| <0.1 ? | Bacterial ? ? ?| Strongly ? ? ?| ? | ?| infection very | discouraged ? | Overruling: ? | ?| unlikely ? ? ? | ? | ? Clinically unstable ? ? ? + +------ + ----+ ? High risk for adverse ? ? | <0.25 ?| Bacterial ? ? ?| Discouraged ? | ? outcome ? | ?| infection ? ? ?| ? | ? SEE IMPORTANT NOTE ?| ?| unlikely ? ? ? | ? | ? + +------ + ----+ +| >=0.25 ? ? ? | Bacterial ? ? ?| Encouraged ? ?| ? | ?| infection ? ? ?| ? | ? | ?| likely ? | ? | Consider treatment failure ?+ +----- + -----+ if levels does not decrease | >0.5 ? | Bacterial ? ? ?| Strongly ? ? ?| appropriately ? | ?| infection very | encouraged ? ?| ? | ?| likely ? | ? | ? + +------ + ----+ + Discontinuation of antibiotics in high-acuity patients with suspected or confirmed sepsis in Adults >= 18 years of age. + +------ + ----+ +|Procalcit onin |Interpretation ?|Antibiotic ? ? |Considerations ? |ng/mL ? | ?|recommendation | ? + +------ + ----+ +| <0.25 ?| Bacterial ? ? ?| Strongly ? ? ?| ? | ?| infection very | discouraged ? | Overruling: ? | ?| unlikely ? ? ? | ? | ? Clinically unstable ? ? ? + +------ + ----+ ? High risk for adverse ? ? | <0.5 or drop | Bacterial ? ? ?| Discouraged ? | ? outcome ? | >80% from ? ?| infection ? ? ?| ? | ? SEE IMPORTANT NOTE ?| highest PCT ?| unlikely ? ? ? | ? | ? | level ?| ?| ? | ? + +------ + ----+ +| >=0.5 ?| Bacterial ? ? ?| Encouraged ? ?| ? | ?| infection ? ? ?| ? | ? | ?| likely ? | ? | Consider treatment failure ?+ +----- + -----+ if levels does not decrease | >1.0 ? | Bacterial ? ? ?| Strongly ? ? ?| appropriately ? | ?| infection very | encouraged ? ?| ? | ?| likely ? | ? | ? + +------ + ----+ + Percentage of drop of Procalcitonin calculation for Discontinuation of antibiotics in high-acuity patients with suspected or confirmed sepsis in Adults >= 18 years of age. ? Procalcitonin highest{}-Procalcitoni n current{}Delta Procalcitonin = ___ x100% ? Procalcitonin current {} IMPORTANT NOTE: Procalcitonin may be elevated without bacterial infection by physiologic stress related to trauma, rodriguez, chronic dialysis, metastatic cancer, surgery in the past seven days, malaria, some fungal infections, and some forms of vasculitis. The interpretation algorithm may not apply to patients with immunosuppression (equivalent of >10 mg of prednisone daily), HIV with CD4 cell count < 350 cells/mm3, active malignancy on systemic chemotherapy, solid organ transplant or hematopoietic stem cell transplantation, or hospital acquired pneumonia. Additionally, some clinical trials of procalcitonin have excluded patients with shock requiring vasopressor use, acute respiratory failure requiring mechanical ventilation, or those with known lung abscess/empyema. For further information please refer to:[email or web address] Lab Interpretation Normal (test code = 09352-4) [facility] GLUCOSE (AUTOMATED)2022-08-11 18:05:09 Test Item Value Reference Range Interpretation Comments POCT GLU (test code = 6048643816) 84 mg/dL 70-110 Lab Interpretation (test code = Normal 29498-3) [facility] GLUCOSE (AUTOMATED)2022-08-11 15:27:43 Test Item Value Reference Range Interpretation Comments POCT GLU (test code = 9502811502) 86 mg/dL 70-110 Lab Interpretation (test code = Normal 44778-0) [facility] + Lactic [id number] 06:25:23 Test Item Value Reference Range Interpretation Comments PH (test code = 2) 7.35-7.45 PCO2 (test code = See_Comment [Automate d 2228085962) message] The sy stem which generated this result transmitted reference range : 35 - 45 mmHg. The reference range was not used to interpret this result as normal/abnormal . PO2 (test code = See_Comment H [Automated 4900708455) message] The sy stem which generated this result transmitted reference range : 80 - 100 mmHg. The reference range was not used to interpret this result as normal/abnormal . HCO3 (test code = See_Comment [Automate d 5862867064) message] The sy stem which generated this result transmitted reference range : 22 - 26 mEq/L. The reference range was not used to interpret this result as normal/abnormal . BE (test code = See_Comment [Automated 6827442155) message] The sy stem which generated this result transmitted reference range : -3.0 - 3.0 mEq/ L. The reference r kvng was not used to interpret this result as normal/abnormal . THB (test code = 10.7 g/dL 13.5-18.0 L 0187832370) %O2HB (test code = 97.9 % 94.0-99.0 0438288388) %COHB ART (test code = 0.3 % 0.0-1.5 0546481232) %METHB ART (test code = 0.3 % 0.4-1.5 L 6064018830) VOL%O2 ART (test code = 15.0 % 15.0-23.0 0387628452) NA (test code = 135 mmol/L 135-145 1480936868) K+ (test code = 3.2 mmol/L 3.5-5.0 L 3335999181) AC CA IONZ (test code = 4.40 mg/dL 4.50-5.30 L 3982123352) GLUCOSE (test code = 105 mg/dL 70-110 5514810188) LACTIC ACID (test code 0.59 mmol/L 0.50-2.20 = 9016667067) Lab Interpretation Abnormal (test code = 67170-0) [facility] 02:38:19 Test Item Value Reference Range Interpretation Comments POCT GLU (test code = 6687746127) 117 mg/dL 70-110 H Lab Interpretation (test code = Abnormal 30311-6) [facility] 00:43:42 Test Item Value Reference Range Interpretation Comments APTT Patient (test code See_Comment H [Au tomated message] = 3173-2) The system [employer] h generated this result transmitted ref erence range: 26 - 36 Seconds. The reference range was not used to int erpret this result as normal/abnormal . Lab Interpretation (test Abnormal code = 65317-4) [facility]22-08-11 00:27:24 Test Item Value Reference Range Interpretation Comments POCT GLU (test code = 5245150692) 140 mg/dL 70-110 H Lab Interpretation (test code = Abnormal 45623-2) [facility] [id number] 23:29:36 Test Item Value Reference Range Interpretation Comments THB STONEY (test code = 1330098243) 8.6 g/dL 13.5-18.0 L %O2HB STONEY (test code = 6643956140) 84.7 % 52.0-63.0 H %COHB STONEY (test code = 1500176854) 0.2 % 0.0-1.5 %METHB STONEY (test code = 5879922692) 0.3 % 0.4-1.5 L VOL%O2 STONEY (test code = 9982255806) 10.3 % 6.0-12.0 Lab Interpretation (test code = Abnormal 36503-6) [facility] + Lactic [id number] 22:33:12 Test Item Value Reference Range Interpretation Comments PH (test code = 2) 7.35-7.45 PCO2 (test code = See_Comment [Automate d 4526485005) message] The sy stem which generated this result transmitted reference range : 35 - 45 mmHg. The reference range was not used to interpret this result as normal/abnormal . PO2 (test code = See_Comment H [Automated 4737025086) message] The sy stem which generated this result transmitted reference range : 80 - 100 mmHg. The reference range was not used to interpret this result as normal/abnormal . HCO3 (test code = See_Comment [Automate d 6721115018) message] The sy stem which generated this result transmitted reference range : 22 - 26 mEq/L. The reference range was not used to interpret this result as normal/abnormal . BE (test code = See_Comment [Automated 6314039617) message] The sy stem which generated this result transmitted reference range : -3.0 - 3.0 mEq/ L. The reference r kvng was not used to interpret this result as normal/abnormal . THB (test code = 9.7 g/dL 13.5-18.0 L 1350829815) %O2HB (test code = 97.8 % 94.0-99.0 4986266929) %COHB ART (test code = 0.3 % 0.0-1.5 7748820717) %METHB ART (test code = 0.3 % 0.4-1.5 L 8227115239) VOL%O2 ART (test code = 13.6 % 15.0-23.0 L 1031284398) NA (test code = 135 mmol/L 135-145 3296098538) K+ (test code = 3.5 mmol/L 3.5-5.0 6816209118) AC CA IONZ (test code = 4.60 mg/dL 4.50-5.30 2086867816) GLUCOSE (test code = 99 mg/dL 70-110 8916328943) LACTIC ACID (test code 0.58 mmol/L 0.50-2.20 = 7302054336) Lab Interpretation Abnormal (test code = 46152-7) [facility]-10 19:35:22 Test Item Value Reference Range Interpretation Comments POCT GLU (test code = 7119905055) 115 mg/dL 70-110 H Lab Interpretation (test code = Abnormal 79904-3) [facility] + Lactic [id number] 19:33:01 Test Item Value Reference Range Interpretation Comments PH (test code = 2) 7.35-7.45 H PCO2 (test code = See_Comment L [Automate d 6391224296) message] The sy stem which generated this result transmitted reference range : 35 - 45 mmHg. The reference range was not used to interpret this result as normal/abnormal . PO2 (test code = See_Comment [Automated 3463561751) message] The sy stem which generated this result transmitted reference range : 80 - 100 mmHg. The reference range was not used to interpret this result as normal/abnormal . HCO3 (test code = See_Comment L [Automate d 0522065592) message] The sy stem which generated this result transmitted reference range : 22 - 26 mEq/L. The reference range was not used to interpret this result as normal/abnormal . BE (test code = See_Comment [Automated 2606941530) message] The sy stem which generated this result transmitted reference range : -3.0 - 3.0 mEq/ L. The reference r kvng was not used to interpret this result as normal/abnormal . THB (test code = 10.0 g/dL 13.5-18.0 L 8366827223) %O2HB (test code = 95.9 % 94.0-99.0 6074102145) %COHB ART (test code = 0.0 % 0.0-1.5 3285843452) %METHB ART (test code = 0.3 % 0.4-1.5 L 6484238335) VOL%O2 ART (test code = 13.6 % 15.0-23.0 L 7720621679) NA (test code = 134 mmol/L 135-145 L 2065764227) K+ (test code = 3.2 mmol/L 3.5-5.0 L 5111866188) AC CA IONZ (test code = 4.40 mg/dL 4.50-5.30 L 6626137609) GLUCOSE (test code = 122 mg/dL 70-110 H 3163620487) LACTIC ACID (test code 0.75 mmol/L 0.50-2.20 = 0101653413) Lab Interpretation Abnormal (test code = 09840-1) [facility] + Lactic [id number] 16:25:18 Test Item Value Reference Range Interpretation Comments PH (test code = 2) 7.35-7.45 H PCO2 (test code = See_Comment L [Automate d 8723757519) message] The sy stem which generated this result transmitted reference range : 35 - 45 mmHg. The reference range was not used to interpret this result as normal/abnormal . PO2 (test code = See_Comment L [Automated 0719192446) message] The sy stem which generated this result transmitted reference range : 80 - 100 mmHg. The reference range was not used to interpret this result as normal/abnormal . HCO3 (test code = See_Comment L [Automate d 1925651571) message] The sy stem which generated this result transmitted reference range : 22 - 26 mEq/L. The reference range was not used to interpret this result as normal/abnormal . BE (test code = See_Comment [Automated 1077519693) message] The sy stem which generated this result transmitted reference range : -3.0 - 3.0 mEq/ L. The reference r kvng was not used to interpret this result as normal/abnormal . THB (test code = 10.1 g/dL 13.5-18.0 L 9844250577) %O2HB (test code = 92.6 % 94.0-99.0 L 7485461367) %COHB ART (test code = 0.3 % 0.0-1.5 4333861297) %METHB ART (test code = 0.3 % 0.4-1.5 L 1705561968) VOL%O2 ART (test code = 13.2 % 15.0-23.0 L 2422805936) NA (test code = 133 mmol/L 135-145 L 5406765713) K+ (test code = 3.3 mmol/L 3.5-5.0 L 8895050658) AC CA IONZ (test code = 4.50 mg/dL 4.50-5.30 2805119386) GLUCOSE (test code = 117 mg/dL 70-110 H 7608532706) LACTIC ACID (test code 1.17 mmol/L 0.50-2.20 = 3151161653) Lab Interpretation Abnormal (test code = 25798-7) [facility]10 15:51:56 Test Item Value Reference Range Interpretation Comments POCT GLU (test code = 2931147334) 150 mg/dL 70-110 H Lab Interpretation (test code = Abnormal 44769-0) [facility]-RE[facility] [id number] 14:56:11 Test Item Value Reference Range Interpretation Comments CRP (test code = 1.4 mg/dL See_Comment H [Automated message] 2626711062) The system [employer] h generated this result transmit katerin reference range : <=0.8. The refe rence range was not u sed to interpret th is result as normal/abnormal . Lab Interpretation (test Abnormal code = 33965-8) [facility] + Lactic [id number] 12:04:50 Test Item Value Reference Range Interpretation Comments PH (test code = 2) 7.35-7.45 PCO2 (test code = See_Comment L [Automate d 2302766280) message] The sy stem which generated this result transmitted reference range : 35 - 45 mmHg. The reference range was not used to interpret this result as normal/abnormal . PO2 (test code = See_Comment H [Automated 1926509267) message] The sy stem which generated this result transmitted reference range : 80 - 100 mmHg. The reference range was not used to interpret this result as normal/abnormal . HCO3 (test code = See_Comment L [Automate d 1703751182) message] The sy stem which generated this result transmitted reference range : 22 - 26 mEq/L. The reference range was not used to interpret this result as normal/abnormal . BE (test code = See_Comment L [Automated 1621841020) message] The sy stem which generated this result transmitted reference range : -3.0 - 3.0 mEq/ L. The reference r kvng was not used to interpret this result as normal/abnormal . THB (test code = 11.0 g/dL 13.5-18.0 L 5993941207) %O2HB (test code = 98.2 % 94.0-99.0 5519324925) %COHB ART (test code = 0.3 % 0.0-1.5 8761514555) %METHB ART (test code = 0.3 % 0.4-1.5 L 5691522879) VOL%O2 ART (test code = 15.3 % 15.0-23.0 7718450837) NA (test code = 136 mmol/L 135-145 0811066721) K+ (test code = 3.4 mmol/L 3.5-5.0 L 1426387289) AC CA IONZ (test code = 4.40 mg/dL 4.50-5.30 L 0226281768) GLUCOSE (test code = 130 mg/dL 70-110 H 1292380266) LACTIC ACID (test code 1.26 mmol/L 0.50-2.20 = 4024819667) Lab Interpretation Abnormal (test code = 44565-0) [facility] (94690)(TOTAL CHOLESTEROL, TRIGLYCERIDES, HDL)2022-08-10 10:02:22 Test Item Value Reference Range Interpretation Comments CHOL (test code = 128 mg/dL 120-200 2967918955) HDL (test code = 42 mg/dL See_Comment [Automated message] 9445180692) The system [employer] generated this result transmit katerin reference range : >=40. The refer ence range was not u sed to interpret th is result as normal/abnormal . HDLC RATIO (test code = See_Comment [Au tomated message] 9560542140) The system [employer] generated this result transmit katerin reference range : <=5.0. The refe rence range was not u sed to interpret th is result as normal/abnormal . TRIG (test code = 119 mg/dL 30-170 8267221094) LDL CHOL (test code = 62 mg/dL See_Comment [Auto mated message] 67762-9) The system [employer] generated this result transmit katerin reference range : <=160. The refe rence range was not u sed to interpret th is result as normal/abnormal . VLDL (test code = 24 mg/dL 5-60 5502127754) Lab Interpretation (test Normal code = 83791-1) [facility] + Lactic Gthl3491-03-09 09:04:14 Test Item Value Reference Range Interpretation Comments PH (test code = 2) 7.35-7.45 H PCO2 (test code = See_Comment L [Automate d 1206446656) message] The sy stem which generated this result transmitted reference range : 35 - 45 mmHg. The reference range was not used to interpret this result as normal/abnormal . PO2 (test code = See_Comment L [Automated 1239820737) message] The sy stem which generated this result transmitted reference range : 80 - 100 mmHg. The reference range was not used to interpret this result as normal/abnormal . HCO3 (test code = See_Comment L [Automate d 1660032852) message] The sy stem which generated this result transmitted reference range : 22 - 26 mEq/L. The reference range was not used to interpret this result as normal/abnormal . BE (test code = See_Comment [Automated 8902325677) message] The sy stem which generated this result transmitted reference range : -3.0 - 3.0 mEq/ L. The reference r kvng was not used to interpret this result as normal/abnormal . THB (test code = 10.7 g/dL 13.5-18.0 L 7672419692) %O2HB (test code = 83.2 % 94.0-99.0 L 9915036902) %COHB ART (test code = 0.1 % 0.0-1.5 2467067957) %METHB ART (test code = 0.3 % 0.4-1.5 L 8081115656) VOL%O2 ART (test code = 12.5 % 15.0-23.0 L 5820598025) NA (test code = 134 mmol/L 135-145 L 0972579004) K+ (test code = 3.6 mmol/L 3.5-5.0 0036016817) AC CA IONZ (test code = 4.50 mg/dL 4.50-5.30 9160357016) GLUCOSE (test code = 130 mg/dL 70-110 H 5713233537) LACTIC ACID (test code 0.79 mmol/L 0.50-2.20 = 3340398115) Lab Interpretation Abnormal (test code = 12141-7) [facility] + Lactic [id number] 06:05:55 Test Item Value Reference Range Interpretation Comments PH (test code = 2) 7.35-7.45 PCO2 (test code = See_Comment L [Automate d 7748008295) message] The sy stem which generated this result transmitted reference range : 35 - 45 mmHg. The reference range was not used to interpret this result as normal/abnormal . PO2 (test code = See_Comment L [Automated 9618122466) message] The sy stem which generated this result transmitted reference range : 80 - 100 mmHg. The reference range was not used to interpret this result as normal/abnormal . HCO3 (test code = See_Comment L [Automate d 3217799093) message] The sy stem which generated this result transmitted reference range : 22 - 26 mEq/L. The reference range was not used to interpret this result as normal/abnormal . BE (test code = See_Comment L [Automated 9061836728) message] The sy stem which generated this result transmitted reference range : -3.0 - 3.0 mEq/ L. The reference r kvng was not used to interpret this result as normal/abnormal . THB (test code = 10.8 g/dL 13.5-18.0 L 1384834087) %O2HB (test code = 88.8 % 94.0-99.0 L 3779840076) %COHB ART (test code = 0.7 % 0.0-1.5 6368704363) %METHB ART (test code = 0.3 % 0.4-1.5 L 1334972394) VOL%O2 ART (test code = 13.5 % 15.0-23.0 L 1938170672) NA (test code = 134 mmol/L 135-145 L 9463670111) K+ (test code = 3.5 mmol/L 3.5-5.0 0985791743) AC CA IONZ (test code = 4.60 mg/dL 4.50-5.30 3815472132) GLUCOSE (test code = 126 mg/dL 70-110 H 3745302085) LACTIC ACID (test code 0.76 mmol/L 0.50-2.20 = 5149625586) Lab Interpretation Abnormal (test code = 39363-4) [facility]10 02:31:50 Test Item Value Reference Range Interpretation Comments POCT GLU (test code = 8429456909) 146 mg/dL 70-110 H Lab Interpretation (test code = Abnormal 41027-0) [facility]GLYCOSYLATED HEMOGLOBIN (A1C)2022-08-10 01:16:01 Test Item Value Reference Range Interpretation Comments HGB A1C (test code = 5.0 % 4.0-5.7 4548-4) HILLARY (test code = HILLARY) Reference RangesNormal: <5.7%Prediabetes: 5.7 - 6.4%Diabetes: > 6.5% Lab Interpretation (test Normal code = 86034-4) [facility]an[facility]2022-08-09 22:51:57 Test Item Value Reference Range Interpretation Comments Height (test code = in 8582508806) Weight (test code = lbs 4852582759) Systolic BP (test code mmHg = 2243543086) Diastolic BP (test code mmHg = 3603882092) Heart Rate (test code = bpm 6286841343) BSA (test code = 2.38 m2 2625051562) LVOT stroke volume 92.50 cm3 (test code = 5272033744) EF(Teich) (test code = 65.70 % 9897614241) LVIDD (test code = 4.90 cm 7945417941) LVIDS (test code = 3.10 cm 3619206006) Left Ventricular End 37.9 mL Systolic Volume by Teichholz Method (test code = 2461671) Left Ventricular End 110.7 mL Diastolic Volume by Teichholz Method (test code = 0422847) IVS (test code = 1.44 cm 3509125450) LVPWD (test code = 1.43 cm 8814056121) LVOT diameter (test 2.38 cm code = 1390327461) LVOT area (test code = 4.50 cm2 5244223610) FS (test code = 36 % 1241662086) MV Peak E Tara (test 156.1 cm/s code = 7731878097) E wave decelartion time 0.20 s (test code = 2948362734) MV E/e' septal (test 11.0 cm/s code = 5967690031) LA Volume Index (BP) 18.0 mL/m2 (test code = 0772416489) LA volume (BP) (test 42.8 mL code = 9464876822) LVOT peak tara (test 118.7 cm/s code = 6295731975) LVOT mn grad (test code mmHg = 6529019828) Left Ventricular 8.7 L/min Cardiac Output (test code = 5844096) LA size (test code = 3.6 cm 8219691684) LAV(MOD-sp2) (test code 61.00 mL = 8154839052) LAV(MOD-sp4) (test code 30.20 mL = 1781493992) Tapse (test code = 2.49 cm 2559356090) AV LVOT peak gradient mmHg (test code = 6524038391) LVOT peak VTI (test 20.7 cm code = 3760614781) Aortic HR (test code = BPM 8819650255) LV V1 mean (test code = 78.60 cm/s 9777935549) MV Prop V (test code = 50.80 cm/s 3060926619) Ao root diam (test code 4.40 cm = 6709696737) Aortic root (test code 4.4 cm = 3243960992) Ao root annulus (test 4.4 cm code = 7624846340) PW (test code = 1.43 cm 0.6-1.6 8197256750) EF - 2D (test code = 65.70 % 50321076) Interventricular Septum 1.44 cm Diastolic Thickness by 2D (test code = 3839258) MV Peak A Tara (test 68.6 cm/s code = 5990139208) E/A ratio (test code = ratio 0935699627) Radiology Study observation (narrative) (test code = 55648-5) HILLARY (test code = HILLARY) ?Left?Ventricle: Left ventricle size is normal. Normal wall thickness. Normal wall motion. Normal systolic function with a visually estimated EF of 60 - 65%. Normal diastolic function. ?Right?Ventricle: Right ventricle size is normal. Normal systolic function. ?IVC/SVC: IVC diameter is greater than 21 mm and decreases less than 50% during inspiration; therefore the estimated right atrial pressure is elevated (~15 mmHg). Left VentricleLeft ventricle size is normal. Normal wall thickness. Normal wall motion. Normal systolic function with a visually estimated EF of 60 - 65%. Normal diastolic function.Right VentricleRight ventricle size is normal. Normal systolic function.Left AtriumLeft atrium size is normal.Right AtriumRight atrium size is normal.IVC/SVCIVC diameter is greater than 21 mm and decreases less than 50% during inspiration; therefore the estimated right atrial pressure is elevated (~15 mmHg).Mitral ValveMitral valve structure is normal.Tricuspid ValveTricuspid valve structure is normal. Insufficient tricuspid regurgitation jet to estimate RVSP.Trace transvalvular regurgitation.Aortic ValveNot well visualized. No hemodynamically significant .Pulmonic ValveNot well visualized.Ascending AortaNormal sized sinus of Valsalva.PericardiumTh e pericardium is normal. No pericardial effusion.Study DetailsStudy quality was technically limited. A complete echocardiogram was performed using 2D, color flow Doppler and spectral Doppler. 5 mL of Lumason ultrasound enhancing agent used. [facility] GLUCOSE (AUTOMATED)2022-08-09 22:51:44 Test Item Value Reference Range Interpretation Comments POCT GLU (test code = 2337153308) 134 mg/dL 70-110 H Lab Interpretation (test code = Abnormal 78427-0) [facility] DallasSEDIMENTATION [id number] 17:58:51 Test Item Value Reference Range Interpretation Comments ESR (test code = 31463-2) See_Comment [ Automated message] The system [employer] generated this result transmitted ref erence range: 2 - 30 m m/HR. The reference r kvng was not used to interpret this result as normal/abnor mal. Lab Interpretation (test Normal code = 85466-2) [facility] DallasLactate Hlnflrduzgxrx6209-04-83 16:12:18 Test Item Value Reference Range Interpretation Comments LDH (test code = 1968788912) 176 U/L 120-246 Lab Interpretation (test code = Normal 66543-1) [facility] Arterial Blood Gas.2022-08-09 15:41:50 Test Item Value Reference Range Interpretation Comments PH (test code = 2) 7.35-7.45 H PCO2 (test code = See_Comment L [Automate d message] 6436021749) The system [employer] generated this result transmitted ref erence range: 35 - 45 mmHg. The reference r kvng was not used to interpret this result as normal/abnor mal. PO2 (test code = See_Comment [Automated message] 3460058562) The system [employer] generated this result transmitted ref erence range: 80 - 100 mmHg. The reference r kvng was not used to interpret this result as normal/abnor mal. HCO3 (test code = See_Comment L [Automate d message] 3774674110) The system [employer] generated this result transmitted ref erence range: 22 - 26 mEq/L. The reference r kvng was not used to interpret this result as normal/abnor mal. BE (test code = See_Comment L [Automated message] 5535874319) The system [employer] generated this result transmitted ref erence range: -3.0 - 3 .0 mEq/L. The refe rence range was not u sed to interpret this result as normal/abnor mal. Lab Interpretation (test Abnormal code = 96716-0) [facility] DallasTR[facility] [id number] 13:23:33 Test Item Value Reference Interpretation Comments Range TROPONIN I (test 0.006 ng/mL See_Comment [Automated code = 9303228025) message] The system which generated this result transmitted reference range : <=0.034. The reference range was not used to interpret this result as normal/abnormal . HILLARY (test code = Reference (Normal) HILLARY) Range (defined by the 99th percentile reference limit): <= 0.034 ng/mL Note: Cardiac troponin begins to rise 3-4 hours after the onset of ischemia. Repeat in 4-6 hours if the sample was drawn within 3-4 hours of the onset of the symptom and found normal. Diagnosis of myocardial injury is made with acute changes in cTn concentrations with at least one serial sample above the 99th percentile upper reference limit (URL), taken together with the patient's clinical presentation. Biotin has been reported to cause a negative bias, interpret results relative to patient's use of biotin. Lab Interpretation Normal (test code = 59526-8) [facility] DallasN-TERMINAL [id number] 13:23:33 Test Item Value Reference Range Interpretation Comments NT-proBNP (test code 967 pg/mL See_Comment H [Autom ated = 3134117463) message] The system which generated this result transmitted reference range : <=125. The reference range was not used to interpret this result as normal/abnormal . HILLARY (test code = HILLARY) Biotin has been reported to cause a negative bias, interpret results relative to patient's use of biotin. Lab Interpretation Abnormal (test code = 09963-6) [facility] (NA, K, CL, CO2, GLUCOSE, BUN, CREATININE, CA)2022-08-09 13:09:53 Test Item Value Reference Range Interpretation Comments NA (test code = 140 mmol/L 135-145 7180790244) K (test code = 3.9 mmol/L 3.5-5.0 8737273125) CL (test code = 107 mmol/L 98-108 0623624182) CO2 TOTAL (test code = 21 mmol/L 23-31 L 4937156963) AGAP (test code = 2-16 0137768172) BUN (test code = 13 mg/dL 7-23 8773434117) GLUCOSE (test code = 148 mg/dL 70-110 H 2948362904) CREATININE (test code = 1.86 mg/dL 0.60-1.25 H 4489995195) CALCIUM (test code = 8.6 mg/dL 8.6-10.6 7733773106) eGFR (test code = mL/min/1.73m2 2166091715) HILLAYR (test code = HILLARY) Association of Glomerular Filtration Rate (GFR) and Staging of Kidney Disease* + --+ --+ ------+| GFR (mL/min/1.73 m2) ?| With Kidney Damage ?| ?Without Kidney Damage+ --------+ --------+ +| ?>90 ?| ?Stage one ?| ? Normal ?+ ---+ ---+ -------+| ?60-89 ?| ?Stage two ?| ? Decreased GFR ? + --+ --+ ------+| ?30-59 ?| ?Stage three ?| ? Stage three ? + --+ --+ ------+| ?15-29 ?| ?Stage four ? | ? Stage four ?+ ---+ ---+ -------+| ?<15 (or dialysis) ? ?| ?Stage five ? | ? Stage five ?+ ---+ ---+ -------+ *Each stage assumes the associated GFR level has been in effect for at least three months. ?Stages 1 to 5, with or without kidney disease, indicate chronic kidney disease. Notes: Determination of stages one and two (with eGFR >59mL/min/1.73 m2) requires estimation of kidney damage for at least three months as defined by structural or functional abnormalities of the kidney, manifested by either:Pathological abnormalities or Markers of kidney damage (including abnormalities in the composition of the blood or urine or abnormalities in imaging tests). Lab Interpretation Abnormal (test code = 13238-8) [facility] (66197[facility] (ALB,T.PRO,BILI T,BU/BC,ALT,AST,ALK PHOS)2022-08-09 13:09:53 Test Item Value Reference Range Interpretation Comments TOTAL BILI (test code = 4012556716) 0.4 mg/dL 0.1-1.1 BILI UNCON (test code = 4466888957) 0.1 mg/dL 0.1-1.1 BILI CONJ (test code = 3124542471) 0.0 mg/dL 0.0-0.3 T PROTEIN (test code = 8670214175) 7.0 g/dL 6.3-8.2 ALBUMIN (test code = 9145688916) 4.2 g/dL 3.5-5.0 ALK PHOS (test code = 6102082570) 99 U/L 34-122 ALTv (test code = 1742-6) 26 U/L 5-50 AST(SGOT) (test code = 5060139541) 29 U/L 13-40 Lab Interpretation (test code = Normal 14290-5) [facility] DallasMagnesium [id number] 13:09:53 Test Item Value Reference Range Interpretation Comments MAGNESIUM (test code = 4957165529) 1.6 mg/dL 1.7-2.4 L Lab Interpretation (test code = Abnormal 45110-7) [facility] DallasPhosphorus [id number] 13:09:53 Test Item Value Reference Range Interpretation Comments PHOSPHORUS (test code = 5287788285) 3.1 mg/dL 2.5-5.0 Lab Interpretation (test code = Normal 25218-2) [facility]POCT GLUCOSE (AUTOMATED)2022-08-09 13:07:32 Test Item Value Reference Range Interpretation Comments POCT GLU (test code = 3864798675) 156 mg/dL 70-110 H Lab Interpretation (test code = Abnormal 82200-6) [facility] DallasProthrombin Time / [id number] 12:39:29 Test Item Value Reference Range Interpretation Comments PROTIME PATIENT (test See_Comment H [Auto mated message] code = 5964-2) The system [employer] generated this result transmitted ref erence range: 10.1 - 1 2.6 Seconds. The reference range was not used to int erpret this result as normal/abnormal . INR (test code = 6301-6) Nor mal INR <1.1; Warfarin Therap eutic range 2.0 to 3. 0 or 2.5 to 3.5, dep ending upon the indica tions. Lab Interpretation (test Abnormal code = 48012-2) [facility] WITH [id number] 12:35:26 Test Item Value Reference Range Interpretation Comments WBC (test code = See_Comment H [Automated 6690-2) message] The system which generated this result transmit katerin reference range : 4.20 - 10.70 10*3/?L. The reference range was not used to interpret this result as normal/abnormal . RBC (test code = See_Comment L [Automated 789-8) message] The system which generated this result transmit katerin reference range : 4.26 - 5.52 10*6/?L. The reference range was not used to interpret this result as normal/abnormal . HGB (test code = 10.7 g/dL 12.2-16.4 L 718-7) HCT (test code = 32.1 % 38.4-49.3 L 4544-3) MCV (test code = 78.1 fL 81.7-95.6 L 787-2) MCH (test code = 26.0 pg 26.1-32.7 L 785-6) MCHC (test code = 33.3 g/dL 31.2-35.0 786-4) RDW-SD (test code = 39.2 fL 38.5-51.6 41948-9) RDW-CV (test code = 13.9 % 12.1-15.4 788-0) PLT (test code = See_Comment H [Automated 777-3) message] The system which generated this result transmit katerin reference range : 150 - 328 10*3/ ?L. The reference range was not u sed to interpret th is result as normal/abnormal . MPV (test code = 9.1 fL 9.8-13.0 L 53830-7) NRBC/100 WBC (test See_Comment [Automat ed code = 7684150155) message] The system which generated this result transmit katerin reference range : 0.0 - 10.0 /100 WBCs. The reference range was not used to interpret this result as normal/abnormal . NRBC x10^3 (test code See_Comment [Auto mated = 4449783985) message] The system which generated this result transmit katerin reference range : 10*3/?L. The reference range was not used to interpret this result as normal/abnormal . GRAN MAT (NEUT) % 78.7 % (test code = 770-8) IMM GRAN % (test code 1.30 % = 5708461371) LYMPH % (test code = 14.8 % 736-9) MONO % (test code = 4.9 % 5905-5) EOS % (test code = 0.0 % 713-8) BASO % (test code = 0.3 % 706-2) GRAN MAT x10^3(ANC) 10.45 10*3/uL 1.99-6.95 H (test code = 7403559761) IMM GRAN x10^3 (test 0.17 10*3/uL 0.00-0.06 H code = 7159839386) LYMPH x10^3 (test code 1.96 10*3/uL 1.09-3.23 = 731-0) MONO x10^3 (test code 0.65 10*3/uL 0.36-1.02 = 742-7) EOS x10^3 (test code = 0.06-0.53 L 711-2) BASO x10^3 (test code 0.04 10*3/uL 0.01-0.09 = 704-7) Lab Interpretation Abnormal (test code = 67819-4) [facility] DallasLawyic Acid Whole [id number] 12:11:47 Test Item Value Reference Range Interpretation Comments LACTIC ACID (test code = 2.71 mmol/L 0.50-2.20 H QUE S 5926674356) Lab Interpretation (test code = Abnormal 20927-0) [facility] GLUCOSE (AUTOMATED)2022-08-09 12:01:00 Test Item Value Reference Range Interpretation Comments POCT GLU (test code = 7043204773) 174 mg/dL 70-110 H Lab Interpretation (test code = Abnormal 47283-8) [facility]MAG[facility]2022-11-11 06:40:50 Test Item Value Reference Range Interpretation Comments MAGNESIUM (test code = 7938058216) 1.3 mg/dL 1.7-2.4 L Lab Interpretation (test code = Abnormal 12260-8) [facility] GLUCOSE (AUTOMATED)2022-08-09 06:35:01 Test Item Value Reference Range Interpretation Comments POCT GLU (test code = 1552771679) 155 mg/dL 70-110 H Lab Interpretation (test code = Abnormal 80421-8) [facility]SE(AGE >30DAYS)2022-08-09 06:35:00 Test Item Value Reference Range Interpretation Comments POCT Glu (age>30days) (test code = 155 mg/dL 70-110 3342) Lab Interpretation (test code = Normal 45439-4) [facility] DallasTROPONIN [id number] 04:38:19 Test Item Value Reference Interpretation Comments Range TROPONIN I (test 0.000 ng/mL See_Comment [Automated code = 2653332501) message] The system which generated this result transmitted reference range : <=0.034. The reference range was not used to interpret this result as normal/abnormal . HILLARY (test code = Reference (Normal) HILLARY) Range (defined by the 99th percentile reference limit): <= 0.034 ng/mL Note: Cardiac troponin begins to rise 3-4 hours after the onset of ischemia. Repeat in 4-6 hours if the sample was drawn within 3-4 hours of the onset of the symptom and found normal. Diagnosis of myocardial injury is made with acute changes in cTn concentrations with at least one serial sample above the 99th percentile upper reference limit (URL), taken together with the patient's clinical presentation. Biotin has been reported to cause a negative bias, interpret results relative to patient's use of biotin. Lab Interpretation Normal (test code = 28155-2) [facility] DallasCB WITH [id number] 03:27:56 Test Item Value Reference Range Interpretation Comments WBC (test code = See_Comment [Automated 8690-2) message] The sy stem which generated this result transmitted reference range : 4.20 - 10.70 10*3/?L. The reference range was not used to interpret this result as normal/abnormal . RBC (test code = See_Comment [Automated 198-8) message] The sy stem which generated this result transmitted reference range : 4.26 - 5.52 10*6/?L. The reference range was not used to interpret this result as normal/abnormal . HGB (test code = 11.6 g/dL 12.2-16.4 L 718-7) HCT (test code = 34.0 % 38.4-49.3 L 4544-3) MCV (test code = 77.1 fL 81.7-95.6 L 787-2) MCH (test code = 26.3 pg 26.1-32.7 785-6) MCHC (test code = 34.1 g/dL 31.2-35.0 786-4) RDW-SD (test code = 38.1 fL 38.5-51.6 L 44497-4) RDW-CV (test code = 13.6 % 12.1-15.4 788-0) PLT (test code = See_Comment [Automated 777-3) message] The sy stem which generated this result transmitted reference range : 150 - 328 10*3/ ?L. The reference r kvng was not used to interpret this result as normal/abnormal . MPV (test code = 9.3 fL 9.8-13.0 L 18666-9) IPF % (test code = 1.5 % 1.2-10.7 Platelet count 2933515761) measured by fluorescence method. NRBC/100 WBC (test See_Comment [Automat ed code = 3600675370) message] The system which generated this result transmitted reference range : 0.0 - 10.0 /100 WBCs. The refer ence range was not u sed to interpret th is result as normal/abnormal . NRBC x10^3 (test code See_Comment [Auto mated = 9435141264) message] The s ystem which generated this result transmitted reference range : 10*3/?L. The reference range was not used to interpret this result as normal/abnormal . GRAN MAT (NEUT) % 72.5 % (test code = 770-8) IMM GRAN % (test code 0.70 % = 3145432053) LYMPH % (test code = 19.6 % 736-9) MONO % (test code = 6.0 % 5905-5) EOS % (test code = 0.8 % 713-8) BASO % (test code = 0.4 % 706-2) GRAN MAT x10^3(ANC) 7.38 10*3/uL 1.99-6.95 H (test code = 6496038946) IMM GRAN x10^3 (test 0.07 10*3/uL 0.00-0.06 H code = 3899281541) LYMPH x10^3 (test code 1.99 10*3/uL 1.09-3.23 = 731-0) MONO x10^3 (test code 0.61 10*3/uL 0.36-1.02 = 742-7) EOS x10^3 (test code = 0.08 10*3/uL 0.06-0.53 711-2) BASO x10^3 (test code 0.04 10*3/uL 0.01-0.09 = 704-7) Lab Interpretation Abnormal (test code = 78281-1) [facility] DallasTROPONIN [id number] 03:10:49 Test Item Value Reference Interpretation Comments Range TROPONIN I (test 0.000 ng/mL See_Comment [Automated code = 6606029271) message] The system which generated this result transmitted reference range : <=0.034. The reference range was not used to interpret this result as normal/abnormal . HILLARY (test code = Reference (Normal) HILLARY) Range (defined by the 99th percentile reference limit): <= 0.034 ng/mL Note: Cardiac troponin begins to rise 3-4 hours after the onset of ischemia. Repeat in 4-6 hours if the sample was drawn within 3-4 hours of the onset of the symptom and found normal. Diagnosis of myocardial injury is made with acute changes in cTn concentrations with at least one serial sample above the 99th percentile upper reference limit (URL), taken together with the patient's clinical presentation. Biotin has been reported to cause a negative bias, interpret results relative to patient's use of biotin. Lab Interpretation Normal (test code = 04423-1) [facility] DallasProthrombin Time / [id number] 02:59:11 Test Item Value Reference Range Interpretation Comments PROTIME PATIENT (test See_Comment [Auto mated message] code = 5964-2) The system wh ich generated this result transmitted ref erence range: 12.0 - 1 4.7 Seconds. The re ference range was not u sed to interpret this result as normal/abnor mal. INR (test code = 6301-6) Nor mal INR <1.1; Warfarin Therap eutic range 2.0 to 3. 0 or 2.5 to 3.5, dep ending upon the indica tions. Lab Interpretation (test Normal code = 29405-2) [facility]. METABOLIC PANEL (10754)2022-08-09 02:57:30 Test Item Value Reference Range Interpretation Comments NA (test code = 138 mmol/L 135-145 8676974411) K (test code = 3.8 mmol/L 3.5-5.0 0207997395) CL (test code = 102 mmol/L 98-108 9562577522) CO2 TOTAL (test code = 25 mmol/L 23-31 7668368597) AGAP (test code = 2-16 9771546248) BUN (test code = 10 mg/dL 7-23 5841792386) GLUCOSE (test code = 121 mg/dL 70-110 H 5103032644) CREATININE (test code = 0.82 mg/dL 0.60-1.25 0604945976) TOTAL BILI (test code = 0.4 mg/dL 0.1-1.3 4923082541) CALCIUM (test code = 9.6 mg/dL 8.6-10.6 5209842077) T PROTEIN (test code = 7.1 g/dL 6.3-8.2 8261073174) ALBUMIN (test code = 4.5 g/dL 3.5-5.0 8000007827) ALK PHOS (test code = 122 U/L 34-122 9826086537) ALTv (test code = 27 U/L 5-50 1742-6) AST(SGOT) (test code = 26 U/L 13-40 2673716307) eGFR (test code = mL/min/1.73m2 9958025293) HILLARY (test code = HILLARY) Association of Glomerular Filtration Rate (GFR) and Staging of Kidney Disease* + --+ --+ ------+| GFR (mL/min/1.73 m2) ?| With Kidney Damage ?| ?Without Kidney Damage+ --------+ --------+ +| ?>90 ?| ?Stage one ?| ? Normal ?+ ---+ ---+ -------+| ?60-89 ?| ?Stage two ?| ? Decreased GFR ? + --+ --+ ------+| ?30-59 ?| ?Stage three ?| ? Stage three ? + --+ --+ ------+| ?15-29 ?| ?Stage four ? | ? Stage four ?+ ---+ ---+ -------+| ?<15 (or dialysis) ? ?| ?Stage five ? | ? Stage five ?+ ---+ ---+ -------+ *Each stage assumes the associated GFR level has been in effect for at least three months. ?Stages 1 to 5, with or without kidney disease, indicate chronic kidney disease. Notes: Determination of stages one and two (with eGFR >59mL/min/1.73 m2) requires estimation of kidney damage for at least three months as defined by structural or functional abnormalities of the kidney, manifested by either:Pathological abnormalities or Markers of kidney damage (including abnormalities in the composition of the blood or urine or abnormalities in imaging tests). Lab Interpretation Abnormal (test code = 07555-1) [facility]LIP[facility]2022[facility] 02:56:49 Test Item Value Reference Range Interpretation Comments LIPASE (test code = 9860567598) 57 U/L 0-220 Lab Interpretation (test code = Normal 42418-4) [facility] DallasARTERIAL DOPPLER LEG, [id number] 16:22:00 Reason for exam:->R/o Pseudoaneurysm. [facility] : 1995 Sex: MFINAL REPORT History: Right femoral pain following a heart catheterization. FINDINGS: Real-time limited arterial Doppler examination of the right femoral artery including color, grayscale and spectral Doppler analysis demonstrates a patent and compressible vessel without visible pseudoaneurysm or fistula. Normal flow is present with triphasic waveform. Surrounding soft tissues are unremarkable. No large hematomas or other focal fluid collections. IMPRESSION: 1. Unremarkable limited right femoral arterial Doppler examination. No evidence for pseudoaneurysm or AV fistula. Signed: Jakob Kelsey Verified Date/Time: 04/08/2021 16:22:12 Reading Location: [facility] C0[facility] Transitional Reading Room E 12 [id number] 23:30:22 Test Item Value Reference Range Interpretation Comments Ventricular rate (test code = 253) Atrial rate (test code = 255) [place] interval (test code = 266) QRSD interval (test code = 260) QT interval (test code = 264) QTC interval (test code = 265) P axis 1 (test code = 267) QRS axis 1 (test code = 268) T wave axis (test code = 270) EKG impression (test Normal sinus code = 273) rhythm-Normal ECG-In automated comparison with ECG of 05-APR-2021 15:33,-No significant change was found- [facility] 12 [id number] 23:30:22 Test Item Value Reference Range Interpretation Comments Ventricular rate (test code = 253) Atrial rate (test code = 255) [place] interval (test code = 266) QRSD interval (test code = 260) QT interval (test code = 264) QTC interval (test code = 265) P axis 1 (test code = 267) QRS axis 1 (test code = 268) T wave axis (test code = 270) EKG impression (test Normal sinus code = 273) rhythm-Normal ECG-In automated comparison with ECG of 05-APR-2021 15:33,-No significant change was found- [facility] [id number] 16:42:16 Test Item Value Reference Range Interpretation Comments POC glucose (test 96 mg/dL 65-99 [employer] N sahara: Naomi code = 16763-5) Eliel ce ID: [id number] [facility] [id number] 16:42:16 Test Item Value Reference Range Interpretation Comments POC glucose (test 96 mg/dL 65-99 [employer] Mela shoemaker: Naomi code = 77270-9) Eliel ce [facility]: [id number] [facility] [Presence] in Respiratory specimen by RAYMUNDO with probe [id number] 15:39:17 Test Item Value Reference Range Interpretation Comments SARS-CoV-2 (COVID-19) RNA Not detected Not-Detected [Presence] in Respiratory specimen by RAYMUNDO with probe detection (test code = 88591-7) Whether patient is employed in a healthcare setting (test code = 02980-1) Whether the patient has symptoms related to condition of interest (test code = 76831-9) Patient was hospitalized because of this condition (test code = 25084-7) Whether the patient was admitted to intensive care unit (ICU) for condition of interest (test code = 80381-8) Whether patient resides in a congregate care setting (test code = 29736-8) [facility] [id number] 10:30:00 Test Item Value Reference Range Interpretation Comments TROPONIN I (test 0.004 ng/mL See_Comment [Automated code = 8551385749) message] The system which generated this result transmitted reference range : <=0.034. The reference range was not used to interpret this result as normal/abnormal . HILLARY (test code = Equal or Less than HILLARY) 0.034 ng/ml---Normal ?Note: Cardiac troponin begins to rise 3-4 hours after the onset of ischemia. Repeat in 4-6 hours if the sample was drawn within 3-4 hours of the onset of the symptom and found normal. Between 0.035 and 0.120 ng/mL--- Borderline. Questionable myocardial injury or necrosis ? ?Note: Serial measurement may be necessary to confirm or exclude the diagnosis of myocardial injury or necrosis; Clinical correlation (symptoms, EKGs, imaging studies, and others) required; Repeat in 4-6 hours if clinically indicated. ? Equal or Higher than 0.121 ng/mL---Abnormal. Myocardial Injury or Necrosis Likely ? Biotin has been reported to cause a negative bias, interpret results relative to patient's use of biotin. ? Lab Interpretation Normal (test code = 07171-2) [facility] (NA, K, CL, CO2, GLUCOSE, BUN, CREATININE, CA)2020-05-22 10:26:00 Test Item Value Reference Range Interpretation Comments NA (test code = 138 mmol/L 135-145 3301522290) K (test code = 3.9 mmol/L 3.5-5 8368680048) CL (test code = 106 mmol/L 98-108 3587556040) CO2 TOTAL (test code = 24 mmol/L 23-31 8540757203) AGAP (test code = 2-16 9581123076) BUN (test code = 14 mg/dL 7-23 2755979382) GLUCOSE (test code = 87 mg/dL 70-110 5933418650) CREATININE (test code 0.75 mg/dL 0.6-1.25 = 2872749258) CALCIUM (test code = 9.0 mg/dL 8.6-10.6 9362751429) eGFR Calculation mL/min/1.73m2 (Non-) (test code = 8734900170) eGFR Calculation mL/min/1.73m2 () (test code = 7271095810) HILLARY (test code = HILLARY) Association of Glomerular Filtration Rate (GFR) and Staging of Kidney Disease* + -+ + ---+| GFR (mL/min/1.73 m2) ?| With Kidney Damage ?| ?Without Kidney Damage+ -------+ ------+ ---------+| ?>90 ?| ?Stage one ?| ? Normal ?+ --+ -+ ----+| ?60-89 ?| ?Stage two ?| ? Decreased GFR ? + -+ + ---+| ?30-59 ?| ?Stage three ?| ? Stage three ? + -+ + ---+| ?15-29 ?| ?Stage four ? | ? Stage four ?+ --+ -+ ----+| ?<15 (or dialysis) ? ?| ?Stage five ? | ? Stage five ?+ --+ -+ ----+ *Each stage assumes the associated GFR level has been in effect for at least three months. ?Stages 1 to 5, with or without kidney disease, indicate chronic kidney disease. Notes: Determination of stages one and two (with eGFR >59mL/min/1.73 m2) requires estimation of kidney damage for at least three months as defined by structural or functional abnormalities of the kidney, manifested by either:Pathological abnormalities or Markers of kidney damage (including abnormalities in the composition of the blood or urine or abnormalities in imaging tests). [facility]2020-08-24 10:26:00 Test Item Value Reference Range Interpretation Comments MAGNESIUM (test code = 4293098943) 1.8 mg/dL 1.7-2.4 Lab Interpretation (test code = Normal 75891-9) [facility] METABOLIC PANEL (NA, K, CL, CO2, GLUCOSE, BUN, CREATININE, CA)2020-05-21 10:09:00 Test Item Value Reference Range Interpretation Comments NA (test code = 140 mmol/L 135-145 7671724814) K (test code = 3.8 mmol/L 3.5-5 1009086386) CL (test code = 106 mmol/L 98-108 5421675719) CO2 TOTAL (test code = 28 mmol/L 23-31 9580562155) AGAP (test code = 2-16 3293892012) BUN (test code = 16 mg/dL 7-23 9946297904) GLUCOSE (test code = 88 mg/dL 70-110 1544741354) CREATININE (test code 0.83 mg/dL 0.6-1.25 = 6739997203) CALCIUM (test code = 8.8 mg/dL 8.6-10.6 3755543761) eGFR Calculation mL/min/1.73m2 (Non-) (test code = 7216544840) eGFR Calculation mL/min/1.73m2 () (test code = 7667073226) HILLARY (test code = HILLARY) Association of Glomerular Filtration Rate (GFR) and Staging of Kidney Disease* + -+ + ---+| GFR (mL/min/1.73 m2) ?| With Kidney Damage ?| ?Without Kidney Damage+ -------+ ------+ ---------+| ?>90 ?| ?Stage one ?| ? Normal ?+ --+ -+ ----+| ?60-89 ?| ?Stage two ?| ? Decreased GFR ? + -+ + ---+| ?30-59 ?| ?Stage three ?| ? Stage three ? + -+ + ---+| ?15-29 ?| ?Stage four ? | ? Stage four ?+ --+ -+ ----+| ?<15 (or dialysis) ? ?| ?Stage five ? | ? Stage five ?+ --+ -+ ----+ *Each stage assumes the associated GFR level has been in effect for at least three months. ?Stages 1 to 5, with or without kidney disease, indicate chronic kidney disease. Notes: Determination of stages one and two (with eGFR >59mL/min/1.73 m2) requires estimation of kidney damage for at least three months as defined by structural or functional abnormalities of the kidney, manifested by either:Pathological abnormalities or Markers of kidney damage (including abnormalities in the composition of the blood or urine or abnormalities in imaging tests). [facility]2020-08-23 10:09:00 Test Item Value Reference Range Interpretation Comments MAGNESIUM (test code = 8916619735) 1.8 mg/dL 1.7-2.4 Lab Interpretation (test code = Normal 60573-0) [facility] DallasUrine [id number] 13:07:00 Test Item Value Reference Range Interpretation Comments URINE CULTURE (test No aerobic growth (< code = 630-4) 1000 CFU/mL) [facility]OL[facility] (NA, K, CL, CO2, GLUCOSE, BUN, CREATININE, CA)2020-05-20 10:54:00 Test Item Value Reference Range Interpretation Comments NA (test code = 137 mmol/L 135-145 9397647345) K (test code = 4.1 mmol/L 3.5-5 0978546154) CL (test code = 105 mmol/L 98-108 6010512472) CO2 TOTAL (test code = 26 mmol/L 23-31 8527098740) AGAP (test code = 2-16 7702603795) BUN (test code = 16 mg/dL 7-23 2518394771) GLUCOSE (test code = 85 mg/dL 70-110 3512159745) CREATININE (test code 0.85 mg/dL 0.6-1.25 = 4072526089) CALCIUM (test code = 8.7 mg/dL 8.6-10.6 7923700495) eGFR Calculation mL/min/1.73m2 (Non-) (test code = 1589370504) eGFR Calculation mL/min/1.73m2 () (test code = 6927387189) HILLARY (test code = HILLARY) Association of Glomerular Filtration Rate (GFR) and Staging of Kidney Disease* + -+ + ---+| GFR (mL/min/1.73 m2) ?| With Kidney Damage ?| ?Without Kidney Damage+ -------+ ------+ ---------+| ?>90 ?| ?Stage one ?| ? Normal ?+ --+ -+ ----+| ?60-89 ?| ?Stage two ?| ? Decreased GFR ? + -+ + ---+| ?30-59 ?| ?Stage three ?| ? Stage three ? + -+ + ---+| ?15-29 ?| ?Stage four ? | ? Stage four ?+ --+ -+ ----+| ?<15 (or dialysis) ? ?| ?Stage five ? | ? Stage five ?+ --+ -+ ----+ *Each stage assumes the associated GFR level has been in effect for at least three months. ?Stages 1 to 5, with or without kidney disease, indicate chronic kidney disease. Notes: Determination of stages one and two (with eGFR >59mL/min/1.73 m2) requires estimation of kidney damage for at least three months as defined by structural or functional abnormalities of the kidney, manifested by either:Pathological abnormalities or Markers of kidney damage (including abnormalities in the composition of the blood or urine or abnormalities in imaging tests). [facility]MAG[facility]2020[facility]22 10:54:00 Test Item Value Reference Range Interpretation Comments MAGNESIUM (test code = 2179564164) 1.7 mg/dL 1.7-2.4 Lab Interpretation (test code = Normal 28419-3) [facility] DallasPROCALCITONIN2020-08-21 20:16:00 Test Item Value Reference Range Interpretation Comments Procalcitonin (test 0.44 ng/mL <0.07 H code = 6772330253) HILLARY (test code = HILLARY) INTERPRETATION OF PROCALCITONIN RESULTS IN ADULTS >= 18 YEARS OF AGE Initiation and discontinuation of antibiotics on patients with suspected or confirmed Lower Respiratory Tract Infection in Adults >= 18 years of age. + +-------- --------+ + -----+|Procalcitonin |Interpretation ?|Antibiotic ? ? |Considerations ? |ng/mL ? | ?|recommendation | ? + +-------- --------+ + -----+| <0.1 ? | Bacterial ? ? ?| Strongly ? ? ?| ? | ?| infection very | discouraged ? | Overruling: ? | ?| unlikely ? ? ? | ? | ? Clinically unstable ? ? ? + +-------- --------+ + ? High risk for adverse ? ? | <0.25 ?| Bacterial ? ? ?| Discouraged ? | ? outcome ? | ?| infection ? ? ?| ? | ? SEE IMPORTANT NOTE ?| ?| unlikely ? ? ? | ? | ? + +-------- --------+ + -----+| >=0.25 ? ? ? | Bacterial ? ? ?| Encouraged ? ?| ? | ?| infection ? ? ?| ? | ? | ?| likely ? | ? | Consider treatment failure ?+ +------- ---------+ -+ if levels does not decrease | >0.5 ? | Bacterial ? ? ?| Strongly ? ? ?| appropriately ? | ?| infection very | encouraged ? ?| ? | ?| likely ? | ? | ? + +-------- --------+ + -----+ Discontinuation of antibiotics in high-acuity patients with suspected or confirmed sepsis in Adults >= 18 years of age. + +-------- --------+ + -----+|Procalcitonin |Interpretation ?|Antibiotic ? ? |Considerations ? |ng/mL ? | ?|recommendation | ? + +-------- --------+ + -----+| <0.25 ?| Bacterial ? ? ?| Strongly ? ? ?| ? | ?| infection very | discouraged ? | Overruling: ? | ?| unlikely ? ? ? | ? | ? Clinically unstable ? ? ? + +-------- --------+ + ? High risk for adverse ? ? | <0.5 or drop | Bacterial ? ? ?| Discouraged ? | ? outcome ? | >80% from ? ?| infection ? ? ?| ? | ? SEE IMPORTANT NOTE ?| highest PCT ?| unlikely ? ? ? | ? | ? | level ?| ?| ? | ? + +-------- --------+ + -----+| >=0.5 ?| Bacterial ? ? ?| Encouraged ? ?| ? | ?| infection ? ? ?| ? | ? | ?| likely ? | ? | Consider treatment failure ?+ +------- ---------+ -+ if levels does not decrease | >1.0 ? | Bacterial ? ? ?| Strongly ? ? ?| appropriately ? | ?| infection very | encouraged ? ?| ? | ?| likely ? | ? | ? + +-------- --------+ + -----+ Percentage of drop of Procalcitonin calculation for Discontinuation of antibiotics in high-acuity patients with suspected or confirmed sepsis in Adults >= 18 years of age. ? Procalcitonin highest{}-Procalcitonin current{}Delta Procalcitonin = x100% ? Procalcitonin current {} IMPORTANT NOTE: Procalcitonin may be elevated without bacterial infection by physiologic stress related to trauma, rodriguez, chronic dialysis, metastatic cancer, surgery in the past seven days, malaria, some fungal infections, and some forms of vasculitis. The interpretation algorithm may not apply to patients with immunosuppression (equivalent of >10 mg of prednisone daily), HIV with CD4 cell count < 350 cells/mm3, active malignancy on systemic chemotherapy, solid organ transplant or hematopoietic stem cell transplantation, or hospital acquired pneumonia. Additionally, some clinical trials of procalcitonin have excluded patients with shock requiring vasopressor use, acute respiratory failure requiring mechanical ventilation, or those with known lung abscess/empyema. For further information please refer to:[email or web address] Lab Interpretation Abnormal (test code = 46424-6) [facility] DallasMRSA / MSSA Screen by PCR, [id number] 18:01:00 Test Item Value Reference Range Interpretation Comments MSSA Screen by PCR, Narkelsi (test code Negative Negative = 23004-6) MRSA/MSSA Positive? (test code = No No [id number]) Lab Interpretation (test code = Normal 71318-5) [facility] DallasCORONAVIRUS COVID-19 [id number] 17:53:00 Test Item Value Reference Range Interpretation Comments SARS-CoV-2 PCR (test Not Detected Not Detected code = 82979-0) HILLARY (test code = HILLARY) Sonoma Fusion SARS-CoV-2 Assay is a real-time RT-PCR test intended for the qualitative detection of RNA from SARS-CoV-2 from nasopharyngeal (ROOFING TECHNICIAN) specimens. It is used under Emergency Use Authorization (EUA) by FDA. A positive result is indicative of the presence of SARS-CoV-2 RNA. ?Clinical correlation with patient history and other diagnostic information is necessary to determine patient infection status. A negative (Not Detected) result does not preclude SARS-CoV-2 infection. Clinical correlation with patient history and other diagnostic information should be used in patient management decisions. Invalid: Please collect a new specimen for repeat patient testing if clinically indicated. Lab Interpretation Normal (test code = 86846-7) [facility] DallasProthrombin Time / [id number] 16:34:00 Test Item Value Reference Range Interpretation Comments PROTIME PATIENT (test See_Comment H [Auto mated message] code = 5964-2) The system [employer] ich generated this result transmitted ref erence range: 10.1 - 1 2.6 Seconds. The reference range was not used to int erpret this result as normal/abnormal . INR (test code = 6301-6) Nor mal INR <1.1; Warfarin Therap eutic range 2.0 to 3. 0 or 2.5 to 3.5, dep ending upon the indica tions. Lab Interpretation (test Abnormal code = 58398-0) [facility] DallasaPTT2020-08-21 16:34:00 Test Item Value Reference Range Interpretation Comments APTT Patient (test code = See_Comment [ Automated message] 3173-2) The system [employer] h generated this result transmitted ref erence range: 26 - 36 Seconds. The re ference range was not u sed to interpret this result as normal/abnor mal. Lab Interpretation (test Normal code = 79810-4) [facility] DallasD-[id number] 16:34:00 Test Item Value Reference Interpretation Comments Range D-DIMER (test code = See_Comment H [Autom ated [id number]) message] The system which generated this result transmitted reference range : <0.50 ?g/mL (FEU). The reference range was not used to interpret this result as normal/abnormal . HILLARY (test code = This test may be HILLARY) used in conjunction with a clinical pretest probability (PTP) assessment model to exclude venous thromboembolism (VTE) in patients suspected of deep venous thrombosis (DVT) and pulmonary embolism (PE) A D-Dimer value less than 0.50 ?g/ml (FEU) has a negative predicative value of 96 to 100% (95% CI)and 97 to 100% (95% CI) as an aid in the diagnosis of deep vein thrombosis (DVT) and pulmonary embolism when there is low or moderate pretest probability of PE or DVT. D-Dimer values are expressed in initial fibrinogen equivalent units (FEU)" The assay results should be used with other information, including the clinical context, in forming a diagnosis. Lab Interpretation Abnormal (test code = 22513-3) [facility] DallasC-REACTIVE [id number] 14:31:00 Test Item Value Reference Range Interpretation Comments CRP (test code = 9422420412) 0.5 mg/dL <0.8 Lab Interpretation (test code = Normal 60216-7) [facility] DallasPNEUMOCOCCAL [id number] 13:18:00 Test Item Value Reference Range Interpretation Comments S. pneumoniae antigen (test code = Negative Negative 6039334550) Lab Interpretation (test code = Normal 34469-9) [facility] DallasLEGIONELLA URINARY ANTIGEN [id number] 13:18:00 Test Item Value Reference Range Interpretation Comments Legionella Urinary Negative Negative Antigen (test code = 7840761303) HILLARY (test code = HILLARY) Negative for L. pneumophilia serogroup I antigen in urine suggesting no recent or current infection. Infection due to Legionella cannot be ruled out since other serogroups and species may cause disease. Furthermore, antigens may not be present in urine during early stage of infection, or the level of antigen present in urine may be below the detection limit of the test. Lab Interpretation (test Normal code = 24151-4) [facility] DallasFERRITIN [id number] 11:49:00 Test Item Value Reference Range Interpretation Comments FERRITIN (test code = 13.3 ng/mL 18-464 L 0961189367) HILLARY (test code = HILLARY) Biotin has been reported to cause a negative bias, interpret results relative to patient's use of biotin. Lab Interpretation (test Abnormal code = 60182-9) [facility] DallasN-TERMINAL [id number] 10:51:00 Test Item Value Reference Range Interpretation Comments NT-proBNP (test code 76 pg/mL See_Comment [Autom ated = 6589371779) message] The system which generated this result transmitted reference range : <=125. The reference range was not used to interpret this result as normal/abnormal . HILLARY (test code = HILLARY) Biotin has been reported to cause a negative bias, interpret results relative to patient's use of biotin. Lab Interpretation Normal (test code = 48580-5) [facility] DallasCBC with [id number] 09:09:00 Test Item Value Reference Range Interpretation Comments WBC (test code = See_Comment [Automated 6690-2) message] The sy stem which generated this result transmitted reference range : 4.20 - 10.70 10*3/?L. The reference range was not used to interpret this result as normal/abnormal . RBC (test code = See_Comment [Automated 789-8) message] The sy stem which generated this result transmitted reference range : 4.26 - 5.52 10*6/?L. The reference range was not used to interpret this result as normal/abnormal . HGB (test code = 13.5 g/dL 12.2-16.4 718-7) HCT (test code = 39.0 % 38.4-49.3 4544-3) MCV (test code = 85.9 fL 81.7-95.6 787-2) MCH (test code = 29.7 pg 26.1-32.7 785-6) MCHC (test code = 34.6 g/dL 31.2-35 786-4) RDW-SD (test code = 37.2 fL 38.5-51.6 L 89581-3) RDW-CV (test code = 12.0 % 12.1-15.4 L 788-0) PLT (test code = See_Comment [Automated 777-3) message] The sy stem which generated this result transmitted reference range : 150 - 328 10*3/ ?L. The reference r kvng was not used to interpret this result as normal/abnormal . MPV (test code = 9.1 fL 9.8-13 L 78096-5) IPF % (test code = 1.5 % 1.2-10.7 Platelet count 6310717438) measured by fluorescence method. NRBC/100 WBC (test See_Comment [Automat ed code = 8157786898) message] The system which generated this result transmitted reference range : 0.0 - 10.0 /100 WBCs. The refer ence range was not u sed to interpret th is result as normal/abnormal . NRBC x10^3 (test code See_Comment [Auto mated = 3331820007) message] The s ystem which generated this result transmitted reference range : 10*3/?L. The reference range was not used to interpret this result as normal/abnormal . GRAN MAT (NEUT) % 80.7 % (test code = 770-8) IMM GRAN % (test code 0.60 % = 1439217242) LYMPH % (test code = 15.4 % 736-9) MONO % (test code = 3.1 % 5905-5) EOS % (test code = 0.0 % 713-8) BASO % (test code = 0.2 % 706-2) GRAN MAT x10^3(ANC) 7.25 10*3/uL 1.99-6.95 H (test code = 9739863460) IMM GRAN x10^3 (test 0.05 10*3/uL 0-0.06 code = 7166470409) LYMPH x10^3 (test code 1.38 10*3/uL 1.09-3.23 = 731-0) MONO x10^3 (test code 0.28 10*3/uL 0.36-1.02 L = 742-7) EOS x10^3 (test code = <0.03 0.06-0.53 L 711-2) BASO x10^3 (test code <0.03 0.01-0.09 = 704-7) Lab Interpretation Abnormal (test code = 79022-8) [facility] Metabolic Panel (NA, K, CL, CO2, Glucose, BUN, Creatinine, CA)2020-05-19 08:57:00 Test Item Value Reference Range Interpretation Comments NA (test code = 135 mmol/L 135-145 6863330740) K (test code = 4.6 mmol/L 3.5-5 3706220638) CL (test code = 106 mmol/L 98-108 2754045936) CO2 TOTAL (test code = 22 mmol/L 23-31 L 3154812638) AGAP (test code = 2-16 8323219950) BUN (test code = 13 mg/dL 7-23 6575718033) GLUCOSE (test code = 85 mg/dL 70-110 5390213104) CREATININE (test code = 0.66 mg/dL 0.6-1.25 5945937068) CALCIUM (test code = 8.9 mg/dL 8.6-10.6 6274121975) eGFR Calculation mL/min/1.73m2 (Non-) (test code = 3425070359) eGFR Calculation mL/min/1.73m2 () (test code = 6290150797) HILLARY (test code = HILLARY) Association of Glomerular Filtration Rate (GFR) and Staging of Kidney Disease* + --+ --+ ------+| GFR (mL/min/1.73 m2) ?| With Kidney Damage ?| ?Without Kidney Damage+ --------+ --------+ +| ?>90 ?| ?Stage one ?| ? Normal ?+ ---+ ---+ -------+| ?60-89 ?| ?Stage two ?| ? Decreased GFR ? + --+ --+ ------+| ?30-59 ?| ?Stage three ?| ? Stage three ? + --+ --+ ------+| ?15-29 ?| ?Stage four ? | ? Stage four ?+ ---+ ---+ -------+| ?<15 (or dialysis) ? ?| ?Stage five ? | ? Stage five ?+ ---+ ---+ -------+ *Each stage assumes the associated GFR level has been in effect for at least three months. ?Stages 1 to 5, with or without kidney disease, indicate chronic kidney disease. Notes: Determination of stages one and two (with eGFR >59mL/min/1.73 m2) requires estimation of kidney damage for at least three months as defined by structural or functional abnormalities of the kidney, manifested by either:Pathological abnormalities or Markers of kidney damage (including abnormalities in the composition of the blood or urine or abnormalities in imaging tests). Lab Interpretation Abnormal (test code = 75454-9) [facility] DallasMagnesium [id number] 08:57:00 Test Item Value Reference Range Interpretation Comments MAGNESIUM (test code = 9555860000) 1.9 mg/dL 1.7-2.4 Lab Interpretation (test code = Normal 85429-1) [facility] DallasPhosphorus [id number] 08:57:00 Test Item Value Reference Range Interpretation Comments PHOSPHORUS (test code = 0852738929) 3.9 mg/dL 2.5-5 Lab Interpretation (test code = Normal 29080-7) [facility] DallasHepatic Function Panel (ALB, T.PRO, BILI T, BU/BC, ALT, AST, ALK, PHOS)2020-05-19 08:57:00 Test Item Value Reference Range Interpretation Comments TOTAL BILI (test code = 1177697343) 0.4 mg/dL 0.1-1.1 BILI UNCON (test code = 6717047165) 0.5 mg/dL 0.1-1.1 BILI CONJ (test code = 2255536875) 0.0 mg/dL 0-0.3 T PROTEIN (test code = 2091676974) 6.1 g/dL 6.3-8.2 L ALBUMIN (test code = 2466519849) 3.5 g/dL 3.5-5 ALK PHOS (test code = 6146907115) 58 U/L 34-122 ALTv (test code = 1742-6) 15 U/L 5-50 AST(SGOT) (test code = 8909203276) 38 U/L 13-40 Lab Interpretation (test code = Abnormal 76651-3) [facility] DallasLactate [id number] 08:53:00 Test Item Value Reference Range Interpretation Comments LDH (test code = 2865004374) 419 U/L 300-600 Lab Interpretation (test code = Normal 38902-1) [facility] DallasLactic Acid Whole [id number] 08:36:00 Test Item Value Reference Range Interpretation Comments LACTIC ACID (test code = 0.90 mmol/L 6889880561) [facility] DallasCOVID-19 (ID NOW RAPID TESTING)2020-05-19 03:52:00 Test Item Value Reference Range Interpretation Comments SARS-CoV-2 Rapid ID NOW Not Detected Not Detected (test code = 04651-4) HILLARY (test code = HILLARY) ID NOW COVID-19 Assay is an isothermal nucleic acid amplification test intended for the qualitative detection of nucleic acid from SARS-CoV-2 viral RNA in nasopharyngeal (ROOFING TECHNICIAN) specimens. It is used under Emergency Use Authorization (EUA) by FDA. The limit of detection (LOD) of the assay is 125 Genome Equivalents/mL. A positive result is indicative of the presence of SARS-CoV-2 RNA. ?Clinical correlation with patient history and other diagnostic information is necessary to determine patient infection status. A negative (Not Detected) result does not preclude SARS-CoV-2 infection. In patients with clinical symptoms and other tests that are consistent with SARS-CoV-2 infection, negative results should be treated as presumptive negative and a new specimen should be tested with alternative PCR molecular test. Invalid: Please collect a new specimen for repeat patient testing if clinically indicated. Lab Interpretation Normal (test code = 96031-1) [facility] DallasCT HEAD WO [id number] 02:27:59 No acute intracranial abnormality. No traumatic malalignment or acute fracture of the cervical spine. Preliminary Report Dictated by Resident: David Ospina I, Kang Shahid MD., have reviewed this study and agree with the abovereport.CT HEAD WO CONTRAST, CT CERVICAL SPINE WO CONTRAST HISTORY: Altered mental status (AMS), unclear cause COMPARISON: MR brain 01/01/2019, CT head and cervical spine 12/28/2018 TECHNIQUE: CT of the head and cervical spine was performed without IVcontrast. FINDINGS: CT HEAD The ventricles and cerebral sulci are normal in caliber and configuration.No hydrocephalus, midline shift or pathological extra- axial fluidcollection is present. The basal cisterns are unremarkable. There is no acute intracranial hemorrhage or significant mass effect. Noparenchymal attenuation abnormality. The lucero-white matter differentiationis preserved. Subarachnoid versus cortical mineralization is noted in theleft parietal lobe, unchanged from prior imaging, nonspecific. Partial opacification ofethmoidal air cells noted. The mastoid air cellsand paranasal air sinuses are otherwise clear. The calvarium and centralskull base are unremarkable CERVICAL SPINE There is exaggeration of the cervical curvature. The vertebral bodies arenormal in height and in normal alignment. No facet fracture or subluxationis present. The craniocervical junction is intact. Incomplete fusion of theposterior arch of the C1 is noted. The prevertebral soft tissues areunremarkable. Partially visualized postoperative changes of transpedicular screw fixationin the upper thoracic spine. The visualized cervical soft tissues and visualized lung apices areunremarkable. [facility], Radiant Results Inft User - 05/18/2020 9:29 PM CDTCT HEAD WO CONTRAST, CT CERVICAL SPINE WO CONTRASTHISTORY: Altered mental status (AMS), unclear cause COMPARISON: MR brain 01/01/2019, CT head and cervical spine 12/28/2018TECHNIQUE: CT of the head and cervical spine was performed without IVcontrast.FINDINGS:CT HEADThe ventricles and cerebral sulci are normal in caliber and configuration.No hydrocephalus, midline shift or pathological extra- axial fluidcollection is present. The basal cisterns are unremarkable.There is no acute intracranial hemorrhage or significant mass effect. Noparenchymal attenuation abnormality. The lucero-white matter differentiationis preserved. Subarachnoid versus cortical mineralization is noted in theleft parietal lobe, unchanged from prior imaging, nonspecific.Partial opacification of ethmoidal air cells noted. The mastoid air cellsand paranasal air sinuses are otherwise clear. The calvarium and centralskull base are unremarkableCERVICAL SPINEThere is exaggeration of the cervical curvature. The vertebral bodies arenormal in height and in normal alignment. No facet fracture or subluxationis present. The craniocervical junction is intact. Incomplete fusion of theposterior arch of the C1 is noted. The prevertebral soft tissues areunremarkable.Partially visualized postoperative changes of transpedicular screw fixationin theupper thoracic spine.The visualized cervical soft tissues and visualized lung apices areunremarkable.IMPRESSIONNo acute intracranial abnormality.No traumatic malalignment or acute fracture of the cervical spine.Preliminary Report Dictated by Resident: Kang Villarreal MD., have reviewed this study and agree with the abovereport.[facility] DallasCT CERVICAL SPINE WO [id number] 02:27:59 No acute intracranial abnormality. No traumatic malalignment or acute fracture of the cervical spine. Preliminary Report Dictated by Resident: Kang Madrid MD., have reviewed this st udy and agree with the abovereport.CT HEAD WO CONTRAST, CT CERVICAL SPINE WO CONTRAST HISTORY: Altered mental status (AMS), unclear cause COMPARISON: MR brain 01/01/2019, CT head and cervical spine 12/28/2018 TECHNIQUE: CT of the head and cervical spine was performed without IVcontrast. FINDINGS: CT HEAD The ventricles and cerebral sulci are normal in caliber and configuration.No hydrocephalus, midline shift or pathological extra-axial fluidcollection is present. The basal cisterns are unremarkable. There is no acute intracranial hemorrhage or significant mass effect. Noparenchymal attenuation abnormality. The lucero-white matter differentiationis preserved. Subarachnoid versus cortical mineralization is noted in theleft parietal lobe, unchanged from prior imaging, nonspecific. Partial opacification ofethmoidal air cells noted. The mastoid air cellsand paranasal air sinuses are otherwise clear. The calvarium and centralskull base are unremarkable CERVICAL SPINE There is exaggeration of the cervical curvature. The vertebral bodies arenormal in height and in normal alignment. No facet fracture or subluxationis present. The craniocervical junction is intact. Incomplete fusion of theposterior arch of the C1 is noted. The prevertebral soft tissues areunremarkable. Partially visualized postoperative changes of transpedicular screw fixationin the upper thoracic spine. The visualized cervical soft tissues and visualized lung apices areunremarkable. [facility], Radiant Results Inft User - 05/18/2020 9:29 PM CDTCT HEAD WO CONTRAST, CT CERVICAL SPINE WO CONTRASTHISTORY: Altered mental status (AMS), unclear cause COMPARISON: MR brain 01/01/2019, CT head and cervical spine 12/28/2018TECHNIQUE: CT of the head and cervical spine was performed without IVcontrast.FINDINGS:CT HEADThe ventricles and cerebral sulci are normal in caliber and configuration.No hydrocephalus, midline shift or pathological extra- axial fluidcollection is present. The basal cisterns are unremarkable.There is no acute intracranial hemorrhage or significant mass effect. Noparenchymal attenuation abnormality. The lucero-white matter differentiationis preserved. Subarachnoid versus cortical mineralization is noted in theleft parietal lobe, unchanged from prior imaging, nonspecific.Partial opacification of ethmoidal air cells noted. The mastoid air cellsand paranasal air sinuses are otherwise clear. The calvarium and centralskull base are unremarkableCERVICAL SPINEThere is exaggeration of the cervical curvature. The vertebral bodies arenormal in height and in normal alignment. No facet fracture or subluxationis present. The craniocervical junction is intact. Incomplete fusion of theposterior arch of the C1 is noted. The prevertebral soft tissues areunremarkable.Partially visualized postoperative changes of transpedicular screw fixationin theupper thoracic spine.The visualized cervical soft tissues and visualized lung apices areunremarkable.IMPRESSIONNo acute intracranial abnormality.No traumatic malalignment or acute fracture of the cervical spine.Preliminary Report Dictated by Resident: Kang Villarreal MD., have reviewed this study and agree with the abovereport.[facility] DallasXR CHEST 1 VW 2020-05-19 01:56:06FINDINGS/IMPRESSION: Suboptimal inspiratory volumes results in vascular crowding. Probablesuperimposed mild interstitial probably edema. No pleural effusion orpneumothorax. The cardiac silhouette is normal in size. No acute osseous abnormality. Scoliosis fixation hardware is unchanged. Preliminary Report Dictated by Resident: Bebeto Madrid MD., have reviewed this study and agree with the abovereport.EXAM: XR CHEST 1 VW CLINICAL INDICATION: dyspnea COMPARISON: 09/19/2019 TECHNIQUE: A frontal view of the chest was obtained [facility], Radiant Results Inft User - 05/18/2020 8:57 PM CDTEXAM: XR CHEST 1 VWCLINICAL INDICATION: dyspnea COMPARISON: 09/19/2019TECHNIQUE: A frontal view of the chest was obtainedIMPRESSIONFINDINGS/IMPRESSION:Suboptimal inspiratory volumes results in vascular crowding. Probablesuperimposed mild interstitial probably edema. No pleural effusion orpneumothorax.The cardiac silhouette is normal in size. No acute osseous abnormality. Scoliosis fixation hardware is unchanged.Preliminary Report Dictated by Resident: Bebeto Villarreal MD., have reviewed this study and agree with the abovereport. [facility]2020[facility] 00:58:00 Test Item Value Reference Range Interpretation Comments SALICYLATE (test code <10 mg/L = 8866376411) HILLARY (test code = HILLARY) Therapeutic Range: ? Analgesic and Antipyretic Use ? 20-100 mg/L ? ? Anti-Inflammatory Use ? 100-250 mg/L Toxic Range: ? Greater than 300 mg/L [facility] DallasTROPONIN [id number] 00:40:00 Test Item Value Reference Range Interpretation Comments TROPONIN I (test <0.012 See_Comment [Automated code = 7328866678) message] The system which generated this result transmitted reference range : <=0.034 ng/mL. The reference range was not used to interpr et this result as normal/abnormal . HILLARY (test code = Equal or Less than HILLARY) 0.034 ng/ml---Normal ?Note: Cardiac troponin begins to rise 3-4 hours after the onset of ischemia. Repeat in 4-6 hours if the sample was drawn within 3-4 hours of the onset of the symptom and found normal. Between 0.035 and 0.120 ng/mL--- Borderline. Questionable myocardial injury or necrosis ? ?Note: Serial measurement may be necessary to confirm or exclude the diagnosis of myocardial injury or necrosis; Clinical correlation (symptoms, EKGs, imaging studies, and others) required; Repeat in 4-6 hours if clinically indicated. ? Equal or Higher than 0.121 ng/mL---Abnormal. Myocardial Injury or Necrosis Likely ? Biotin has been reported to cause a negative bias, interpret results relative to patient's use of biotin. ? Lab Interpretation Normal (test code = 49356-7) [facility] (NA, K, CL, CO2, GLUCOSE, BUN, CREATININE, CA)2020-05-19 00:28:00 Test Item Value Reference Range Interpretation Comments NA (test code = 137 mmol/L 135-145 1048848281) K (test code = 4.0 mmol/L 3.5-5 3546817597) CL (test code = 107 mmol/L 98-108 2109159788) CO2 TOTAL (test code = 25 mmol/L 23-31 4222363001) AGAP (test code = 2-16 1300755093) BUN (test code = 16 mg/dL 7-23 1557680506) GLUCOSE (test code = 130 mg/dL 70-110 H 2995477012) CREATININE (test code = 0.66 mg/dL 0.6-1.25 9687617914) CALCIUM (test code = 9.1 mg/dL 8.6-10.6 1515250262) eGFR Calculation mL/min/1.73m2 (Non-) (test code = 7238116071) eGFR Calculation mL/min/1.73m2 () (test code = 1463604939) HILLARY (test code = HILLARY) Association of Glomerular Filtration Rate (GFR) and Staging of Kidney Disease* + --+ --+ ------+| GFR (mL/min/1.73 m2) ?| With Kidney Damage ?| ?Without Kidney Damage+ --------+ --------+ +| ?>90 ?| ?Stage one ?| ? Normal ?+ ---+ ---+ -------+| ?60-89 ?| ?Stage two ?| ? Decreased GFR ? + --+ --+ ------+| ?30-59 ?| ?Stage three ?| ? Stage three ? + --+ --+ ------+| ?15-29 ?| ?Stage four ? | ? Stage four ?+ ---+ ---+ -------+| ?<15 (or dialysis) ? ?| ?Stage five ? | ? Stage five ?+ ---+ ---+ -------+ *Each stage assumes the associated GFR level has been in effect for at least three months. ?Stages 1 to 5, with or without kidney disease, indicate chronic kidney disease. Notes: Determination of stages one and two (with eGFR >59mL/min/1.73 m2) requires estimation of kidney damage for at least three months as defined by structural or functional abnormalities of the kidney, manifested by either:Pathological abnormalities or Markers of kidney damage (including abnormalities in the composition of the blood or urine or abnormalities in imaging tests). Lab Interpretation Abnormal (test code = 01500-2) [facility]IN[facility]2020-08-21 00:18:00 Test Item Value Reference Range Interpretation Comments APPEARANCE (test code = Clear Clear 2782597827) COLOR (test code = Yellow Yellow 2387091780) PH (test code = 4.8-8.0 4719975273) SP GRAVITY (test code = 1.003-1.030 8806629849) GLU U QUAL (test code = Normal Normal 9816199190) BLOOD (test code = Negative Negative INTERFERE NCE FROM 3869915068) ASCORBIC ACID M AY CAUSE FALSE NEG ATIVE RESULT KETONES (test code = Negative Negative 8404279467) PROTEIN (test code = Negative Negative 2887-8) UROBILIN (test code = Normal Normal 5693313447) BILIRUBIN (test code = Negative Negative 2783845522) NITRITE (test code = Negative Negative 5909988192) LEUK SYDNEE (test code = Negative Negative 9545165781) RBC/HPF (test code = <1 See_Comment [Autom ated message] 9677691450) The system [employer] generated this result transmitted ref erence range: 0 - 3 HP F. The reference range was not used to int erpret this result as normal/abnormal . WBC/HPF (test code = <1 See_Comment [Autom ated message] 3324207523) The system [employer] generated this result transmitted ref erence range: 0 - 5 HP F. The reference range was not used to int erpret this result as normal/abnormal . BACTERIA (test code = Few Negative A 9285500515) MUCOUS (test code = Slight Negative LPF A 8962202342) SQ EPITH (test code = <1 HPF 3311767519) HYAL CAST (test code = See_Comment H [Aut omated message] 7124333047) The system [employer] generated this result transmitted ref erence range: <=2 LPF. The reference range was not used to int erpret this result as normal/abnormal . Lab Interpretation (test Abnormal code = 52954-0) [facility] / [facility] - DRUG SCREEN [id number] 00:11:00 Test Item Value Reference Range Interpretation Comments BENZO U (test code = Negative Negative 1550770030) ALEC U (test code = Negative Negative 7276831025) AMPHET (test code = Negative Negative 5094523356) THC (test code = Negative Negative 6948179891) METHADONE (test code = Negative Negative 8919657443) Meth U (test code = Presumptive Positive Negative A 9031152340) OPIATES (test code = Negative Negative 0799621044) Cocaine Metabolite (test Negative Negative code = 0350279440) PROPOXY (test code = Negative Negative 3646422461) Tric U (test code = Negative Negative 5141910823) PCP (test code = Negative Negative 5214008673) OXYCOD (test code = Negative Negative 0244613177) HILLARY (test code = HILLARY) Urine Drug Cutoff Ranges Benzodiazepines: ? ? 150 ng/mLBarbiturates: ?200 ng/mLAmphetamine: ? 500 ng/mLCannabinoids: ?50 ?ng/mLMethadone: ? 200 ng/mLMethamphetamine: ? ? 500 ng/mL Opiates: ? 100 ng/mL or 2000 ng/mLCocaine: ? 150 ng/mLPropoxyphene: ?300 ng/mLTricyclics: ?300 ng/mLOxycodone: ? 100 ng/mLPCP: ? 25 ?ng/mL The results are to be used only for medical (i.e., treatment) purposes. Unconfirmed screening results must not be used for non-medical purposes (e.g., employment testing, legal testing). Lab Interpretation (test Abnormal code = 59300-7) [facility] DallasAC PANEL 20 + LACTIC [id number] 00:04:00 Test Item Value Reference Range Interpretation Comments PH (test code = 2) 7.35-7.45 PCO2 (test code = See_Comment [Automate d 2690353507) message] The sy stem which generated this result transmitted reference range : 35 - 45 mmHg. The reference range was not used to interpret this result as normal/abnormal . PO2 (test code = See_Comment H [Automated 8257269116) message] The sy stem which generated this result transmitted reference range : 80 - 100 mmHg. The reference range was not used to interpret this result as normal/abnormal . HCO3 (test code = See_Comment [Automate d 1536400659) message] The sy stem which generated this result transmitted reference range : 22 - 26 mEq/L. The reference range was not used to interpret this result as normal/abnormal . BE (test code = See_Comment [Automated 5884738360) message] The sy stem which generated this result transmitted reference range : -3.0 - 3.0 mEq/ L. The reference r kvng was not used to interpret this result as normal/abnormal . THB (test code = 12.8 g/dL 13.5-18 L 6733675898) %O2HB (test code = 98.8 % 94-99 4921001563) %COHB ART (test code = 0.3 % 0-1.5 5887750549) %METHB ART (test code = 0.3 % 0.4-1.5 L 5948069228) VOL%O2 ART (test code = 18.8 % 15-23 9943839453) NA (test code = 135 mmol/L 135-145 5779751815) K+ (test code = 3.8 mmol/L 3.5-5 1555069724) AC CA IONZ (test code = 4.80 mg/dL 4.5-5.3 9628758621) GLUCOSE (test code = 165 mg/dL 70-110 H 1127681660) LACTIC ACID (test code 1.35 mmol/L = 7091876950) Lab Interpretation Abnormal (test code = 73137-7) [facility] DallasETHANOL2020-08-20 23:50:00 Test Item Value Reference Range Interpretation Comments ALCOHOL (test code = <10 mg/dL 3952428397) HILLARY (test code = HILLARY) <10 Aorybrqg37-441 Toxic>100 Depression of CASINO PORTER>400 Fatalities Reported [facility] DallasCritical [id number] 23:49:29Janae Still MD ? ? 05/18/2020 ?6:49 PMCritical CarePerformed by: Janae Still MDAuthorized by: Janae Still MD Critical care provider statement: ?Critical care time (minutes): ?45 ?Criticalcare was necessary to treat or prevent imminent or life-threatening deterioration of the following conditions: ?Toxidrome ?Critical care was time spent personally by me on the following activities: ?Ordering and performing treatments and interventions, ordering and review of laboratory studies, ordering and review of radiographic studies, pulse oximetry, re-evaluation of patient's condition, review of old charts, evaluation of patient's response to treatment, blood draw for specimens and examinationof patientUnMichael E. DeBakey [facility] of Veterans Affairs Medical CenterLactic Acid Whole [id number] 23:34:00 Test Item Value Reference Range Interpretation Comments LACTIC ACID (test code = 2.55 mmol/L 1011639892) [facility] DallasCB WITH [id number] 23:34:00 Test Item Value Reference Range Interpretation Comments WBC (test code = See_Comment [Automated 6400-2) message] The sy stem which generated this result transmitted reference range : 4.20 - 10.70 10*3/?L. The reference range was not used to interpret this result as normal/abnormal . RBC (test code = See_Comment [Automated 690-8) message] The sy stem which generated this result transmitted reference range : 4.26 - 5.52 10*6/?L. The reference range was not used to interpret this result as normal/abnormal . HGB (test code = 13.7 g/dL 12.2-16.4 718-7) HCT (test code = 39.3 % 38.4-49.3 4544-3) MCV (test code = 85.8 fL 81.7-95.6 787-2) MCH (test code = 29.9 pg 26.1-32.7 785-6) MCHC (test code = 34.9 g/dL 31.2-35 786-4) RDW-SD (test code = 36.8 fL 38.5-51.6 L 07190-4) RDW-CV (test code = 11.9 % 12.1-15.4 L 788-0) PLT (test code = See_Comment [Automated 777-3) message] The sy stem which generated this result transmitted reference range : 150 - 328 10*3/ ?L. The reference r kvng was not used to interpret this result as normal/abnormal . MPV (test code = 9.3 fL 9.8-13 L 26176-2) NRBC/100 WBC (test See_Comment [Automat ed code = 0645685778) message] The system which generated this result transmitted reference range : 0.0 - 10.0 /100 WBCs. The refer ence range was not u sed to interpret th is result as normal/abnormal . NRBC x10^3 (test code <0.01 See_Comment [Auto mated = 8222880856) message] The s ystem which generated this result transmitted reference range : 10*3/?L. The reference range was not used to interpret this result as normal/abnormal . GRAN MAT (NEUT) % 74.7 % (test code = 770-8) IMM GRAN % (test code 0.50 % = 2746611993) LYMPH % (test code = 18.3 % 736-9) MONO % (test code = 5.6 % 5905-5) EOS % (test code = 0.5 % 713-8) BASO % (test code = 0.4 % 706-2) GRAN MAT x10^3(ANC) 7.17 10*3/uL 1.99-6.95 H (test code = 4844096314) IMM GRAN x10^3 (test 0.05 10*3/uL 0-0.06 code = 5538126634) LYMPH x10^3 (test code 1.76 10*3/uL 1.09-3.23 = 731-0) MONO x10^3 (test code 0.54 10*3/uL 0.36-1.02 = 742-7) EOS x10^3 (test code = 0.05 10*3/uL 0.06-0.53 L 711-2) BASO x10^3 (test code 0.04 10*3/uL 0.01-0.09 = 704-7) Lab Interpretation Abnormal (test code = 27018-6) [facility] DallasCT CHEST PULMONARY [id number] 03:59:23 No evidence of a pulmonary embolism to the level of the subsegmentalbranches. Moderate sliding hiatal hernia. Preliminary Report Dictated by Resident: Niyah Arevalo I, Bebeto Mukherjee MD., have reviewed this study and agree with the abovereport.PROCEDURE: CT ANGIO CHEST WITH CONTRAST - PE PROTOCOL CLINICAL INDICATION: Shortness of breath PE suspected, intermediate prob,positive D-dimer COMPARISON: 09/19/2019. TECHNIQUE: ?Helical CT was performed and reconstructed at 1.25 mm slicethickness from lung base to apices after the administration intravenouscontrast, without co mplication. ?3D axial MIPS and coronal MPR images weregenerated under radiologist supervision, and reviewed to further defineanatomy and possible pathology. Display field of view: 38 cm. FINDINGS: PULMONARY ARTERIES:Enhancement is adequate, and there is no acute or chronic pulmonaryembolism. CHEST:Lower neck/thyroid: Unremarkable. Lungs: Normal. Central airway: Unremarkable. Pleura: No pleural effusion, thickening or pneumothorax. Thoracic aorta and great vessels: Normal in diameter. Standard trivesselaortic arch anatomy. Heart and pericardium: No detectable coronary artery calcifications. Leftatrial dilatation measuring up to 4.9 cm in greatest AP dimension. Lymph nodes: No enlarged thoracic lymph nodes. Mediastinum: Moderate sliding hiatal hernia.. Thoracic spine and chest wall: Bilateral parasp inal scoliotic correctionhardware without complication. Normal thoracic vertebral body heights. Visualized upper abdomen: Unremarkable. [facility], Radiant Results Inft User - 0 05/16/2020 11:00 PM CDTPROCEDURE: CT ANGIO CHEST WITH CONTRAST - PE PROTOCOLCLINICAL INDICATION: Shortness of breath PE suspected, intermediate prob,positive D-dimer COMPARISON: 09/19/2019.TECHNIQUE: Helical CT was performed and reconstructed at 1.25 mm slicethickness from lung base to apices after the administration intravenouscontrast, without complication. 3D axial MIPS and coronal MPR images weregenerated under radiologist supervision, and reviewed to further defineanatomy and possible pathology.Display field of view: 38 cm.FINDINGS:PULMONARY ARTERIES:Enhancement is adequate, and there is no acute or chronic pulmonaryembolism.CHEST:Lower neck/thyroid: Unremarkable.Lungs: Normal.Central airway:Unremarkable.Pleura: No pleural effusion, thickening or pneumothorax.Thoracic aorta and great vessels: Normal in diameter. Standard trivesselaortic arch anatomy.Heart and pericardium: No detectable coronary artery calcifications. Leftatrial dilatation measuring up to 4.9 cm in greatest AP dimension.Lymph nodes: No enlarged thoracic lymph nodes.Mediastinum: Moderate sliding hiatal hernia..Thoracic spine and chest wall: Bilateral paraspinal scoliotic correctionhardware without complication. Normal thoracic vertebral body heights.Visualized upper abdomen: Unremarkable. IMPRESSIONNo evidence of a pulmonary embolism to the level of the subsegmentalbranches. Moderate sliding hiatal hernia.Preliminary Report Dictated by Resident: Bebeto Garcia MD., have reviewed this study and agree with the abovereport.[facility] DallasXR CHEST 1 VW COVID 2020-05-17 03:19:00 No acute intrathoracic abnormality, specifically no radiographic findingsto suggest COVID-19 pneumonia. Disclaimer: Generally, the findings on chest imaging in COVID-19 are notspecific, and overlap with other infections, including influenza, H1N1,SARS and MERS.According to the Centers for Disease Control (CDC) and recent statement ofthe [employer], viral testing remains the only specificmethod of diagnosis. Confirmation with the viral test is required, even ifradiologic findings are suggestive of COVID- [address]. Preliminary Report Dictated by Resident: Arcelia Canales MD., have reviewed this study and agree with the abovereport.PROCEDURE: CHEST, SINGLE VIEW CLINICAL INDICATION: 25 years Male presenting with chest pain COMPARISON: Chest radiographs 09/19/2019 FINDINGS: Lines/hardware: Paravertebral scoliotic correction hardware is partiallyvisualized. Lungs: The lungs are clear. No focal consolidation, pleural effusion, orpneumothorax. Mediastinum: The cardiomediastinal silhouette is normal in size. Osseous structures: No acute bony abnormality. [facility], Radiant Results Inft User - 05/16/2020 10:20 PM CDTPROCEDURE: CHEST, SINGLE VIEWCLINICAL INDICATION: 25 years Male presenting with chest pain COMPARISON: Chest radiographs 09/19/2019FINDINGS:Lines/hardware: Paravertebral scoliotic correction hardware is partiallyvisualized.Lungs: The lungs are clear. No focal consolidation, pleural effusion, orpneumothorax.Mediastinum: The cardiomediastinal silhouetteis normal in size.Osseous structures: No acute bony abnormality.IMPRESSIONNo acute intrathoracic abnormality, specifically no radiographic findingsto suggest COVID-19 pneumonia.Disclaimer: Generally, the findings on chest imaging in COVID-19 are notspecific, and overlap with other infections, including influenza, H1N1,SARS and MERS.According to the Centers for Disease Control (CDC) and recent statement ofthe [employer], viral testing remains the only specificmethod of diagnosis. Confirmation with the viral test is required, even ifradiologic findings are suggestive of COVID- [address]. Preliminary Report Dictated by Resident: Bebeto Garcia MD., have reviewed this study and agree with the abovereport.[facility] [id number] 01:41:00 Test Item Value Reference Range Interpretation Comments TROPONIN I (test <0.012 See_Comment [Automated code = 4466294644) message] The system which generated this result transmitted reference range : <=0.034 ng/mL. The reference range was not used to interpr et this result as normal/abnormal . HILLARY (test code = Equal or Less than HILLARY) 0.034 ng/ml---Normal ?Note: Cardiac troponin begins to rise 3-4 hours after the onset of ischemia. Repeat in 4-6 hours if the sample was drawn within 3-4 hours of the onset of the symptom and found normal. Between 0.035 and 0.120 ng/mL--- Borderline. Questionable myocardial injury or necrosis ? ?Note: Serial measurement may be necessary to confirm or exclude the diagnosis of myocardial injury or necrosis; Clinical correlation (symptoms, EKGs, imaging studies, and others) required; Repeat in 4-6 hours if clinically indicated. ? Equal or Higher than 0.121 ng/mL---Abnormal. Myocardial Injury or Necrosis Likely ? Biotin has been reported to cause a negative bias, interpret results relative to patient's use of biotin. ? Lab Interpretation Normal (test code = 37813-1) [facility] DallasD-[id number] 01:39:00 Test Item Value Reference Interpretation Comments Range D-DIMER (test code = See_Comment H [Autom ated 3789439030) message] The system which generated this result transmitted reference range : <0.41 ?g/mL (FEU). The reference range was not used to interpret this result as normal/abnormal . HILLARY (test code = This test may be HILLARY) used in conjunction with a clinical pretest probability (PTP) assessment model to exclude venous thromboembolism (VTE) in patients suspected of deep venous thrombosis (DVT) and pulmonary embolism (PE) A D-Dimer value less than 0.50 ?g/ml (FEU) has a negative predicative value of 96 to 100% (95% CI)and 97 to 100% (95% CI) as an aid in the diagnosis of deep vein thrombosis (DVT) and pulmonary embolism when there is low or moderate pretest probability of PE or DVT. D-Dimer values are expressed in initial fibrinogen equivalent units (FEU)" The assay results should be used with other information, including the clinical context, in forming a diagnosis. Lab Interpretation Abnormal (test code = 40510-1) [facility] DallasN-TERMINAL [id number] 01:37:00 Test Item Value Reference Range Interpretation Comments NT-proBNP (test code 65 pg/mL See_Comment [Autom ated = 0938348801) message] The system which generated this result transmitted reference range : <=125. The reference range was not used to interpret this result as normal/abnormal . HILLARY (test code = HILLARY) Biotin has been reported to cause a negative bias, interpret results relative to patient's use of biotin. Lab Interpretation Normal (test code = 11516-8) [facility] DallasCOVID-19 (ID NOW RAPID TESTING)2020-05-17 01:31:00 Test Item Value Reference Range Interpretation Comments SARS-CoV-2 Rapid ID NOW Positive Not Detected A (test code = 02859-5) HILLARY (test code = HILLARY) ID NOW COVID-19 Assay is an isothermal nucleic acid amplification test intended for the qualitative detection of nucleic acid from SARS-CoV-2 viral RNA in nasopharyngeal (ROOFING TECHNICIAN) specimens. It is used under Emergency Use Authorization (EUA) by FDA. The limit of detection (LOD) of the assay is 125 Genome Equivalents/mL. A positive result is indicative of the presence of SARS-CoV-2 RNA. ?Clinical correlation with patient history and other diagnostic information is necessary to determine patient infection status. A negative (Not Detected) result does not preclude SARS-CoV-2 infection. In patients with clinical symptoms and other tests that are consistent with SARS-CoV-2 infection, negative results should be treated as presumptive negative and a new specimen should be tested with alternative PCR molecular test. Invalid: Please collect a new specimen for repeat patient testing if clinically indicated. Lab Interpretation Abnormal (test code = 09591-1) [facility] DallasPROTHROMBIN TIME / [id number] 01:29:00 Test Item Value Reference Range Interpretation Comments PROTIME PATIENT (test See_Comment [Auto mated message] code = 5964-2) The system wh ich generated this result transmitted ref erence range: 12.0 - 1 4.7 Seconds. The re ference range was not u sed to interpret this result as normal/abnor mal. INR (test code = 6301-6) Nor mal INR <1.1; Warfarin Therap eutic range 2.0 to 3. 0 or 2.5 to 3.5, dep ending upon the indica tions. Lab Interpretation (test Normal code = 39562-5) [facility]. METABOLIC PANEL (66227)2020-05-17 01:29:00 Test Item Value Reference Range Interpretation Comments NA (test code = 139 mmol/L 135-145 4050931219) K (test code = 3.9 mmol/L 3.5-5 0856356725) CL (test code = 104 mmol/L 98-108 0461437624) CO2 TOTAL (test code = 26 mmol/L 23-31 0249644268) AGAP (test code = 2-16 6073110834) BUN (test code = 20 mg/dL 7-23 5031430126) GLUCOSE (test code = 103 mg/dL 70-110 9461082453) CREATININE (test code 0.85 mg/dL 0.6-1.25 = 1175173311) TOTAL BILI (test code 0.2 mg/dL 0.1-1.1 = 2202443682) CALCIUM (test code = 9.2 mg/dL 8.6-10.6 9390322910) T PROTEIN (test code = 7.1 g/dL 6.3-8.2 1908138309) ALBUMIN (test code = 4.3 g/dL 3.5-5 3119132667) ALK PHOS (test code = 80 U/L 34-122 9936385560) ALTv (test code = 16 U/L 5-50 1742-6) AST(SGOT) (test code = 26 U/L 13-40 5507292385) eGFR Calculation mL/min/1.73m2 (Non-) (test code = 9183074707) eGFR Calculation mL/min/1.73m2 () (test code = 6373270226) HILLARY (test code = HILLARY) Association of Glomerular Filtration Rate (GFR) and Staging of Kidney Disease* + -+ + ---+| GFR (mL/min/1.73 m2) ?| With Kidney Damage ?| ?Without Kidney Damage+ -------+ ------+ ---------+| ?>90 ?| ?Stage one ?| ? Normal ?+ --+ -+ ----+| ?60-89 ?| ?Stage two ?| ? Decreased GFR ? + -+ + ---+| ?30-59 ?| ?Stage three ?| ? Stage three ? + -+ + ---+| ?15-29 ?| ?Stage four ? | ? Stage four ?+ --+ -+ ----+| ?<15 (or dialysis) ? ?| ?Stage five ? | ? Stage five ?+ --+ -+ ----+ *Each stage assumes the associated GFR level has been in effect for at least three months. ?Stages 1 to 5, with or without kidney disease, indicate chronic kidney disease. Notes: Determination of stages one and two (with eGFR >59mL/min/1.73 m2) requires estimation of kidney damage for at least three months as defined by structural or functional abnormalities of the kidney, manifested by either:Pathological abnormalities or Markers of kidney damage (including abnormalities in the composition of the blood or urine or abnormalities in imaging tests). [facility] [id number] 01:29:00 Test Item Value Reference Range Interpretation Comments LIPASE (test code = 5549106239) 105 U/L 0-220 Lab Interpretation (test code = Normal 65543-1) [facility] [id number] 01:16:00 Test Item Value Reference Range Interpretation Comments WBC (test code = See_Comment [Automated 6263-2) message] The sy stem which generated this result transmitted reference range : 4.20 - 10.70 10*3/?L. The reference range was not used to interpret this result as normal/abnormal . RBC (test code = See_Comment [Automated 459-7) message] The sy stem which generated this result transmitted reference range : 4.26 - 5.52 10*6/?L. The reference range was not used to interpret this result as normal/abnormal . HGB (test code = 14.3 g/dL 12.2-16.4 718-7) HCT (test code = 40.9 % 38.4-49.3 4544-3) MCV (test code = 86.1 fL 81.7-95.6 787-2) MCH (test code = 30.1 pg 26.1-32.7 785-6) MCHC (test code = 35.0 g/dL 31.2-35 786-4) RDW-SD (test code = 37.2 fL 38.5-51.6 L 17103-6) RDW-CV (test code = 11.9 % 12.1-15.4 L 788-0) PLT (test code = See_Comment [Automated 777-3) message] The sy stem which generated this result transmitted reference range : 150 - 328 10*3/ ?L. The reference r kvng was not used to interpret this result as normal/abnormal . MPV (test code = 8.9 fL 9.8-13 L 14387-1) NRBC/100 WBC (test See_Comment [Automat ed code = [id number]) message] The system which generated this result transmitted reference range : 0.0 - 10.0 /100 WBCs. The refer ence range was not u sed to interpret th is result as normal/abnormal . NRBC x10^3 (test code <0.01 See_Comment [Auto mated = [id number]) message] The s ystem which generated this result transmitted reference range : 10*3/?L. The reference range was not used to interpret this result as normal/abnormal . GRAN MAT (NEUT) % 47.7 % (test code = 770-8) IMM GRAN % (test code 0.30 % = [id number]) LYMPH % (test code = 44.2 % 736-9) MONO % (test code = 5.8 % 5905-5) EOS % (test code = 1.5 % 713-8) BASO % (test code = 0.5 % 706-2) GRAN MAT x10^3(ANC) 3.72 10*3/uL 1.99-6.95 (test code = [id number]) IMM GRAN x10^3 (test <0.03 0-0.06 code = 3413436953) LYMPH x10^3 (test code 3.45 10*3/uL 1.09-3.23 H = 731-0) MONO x10^3 (test code 0.45 10*3/uL 0.36-1.02 = 742-7) EOS x10^3 (test code = 0.12 10*3/uL 0.06-0.53 711-2) BASO x10^3 (test code 0.04 10*3/uL 0.01-0.09 = 704-7) Lab Interpretation Abnormal (test code = 63654-1) [id number] 07:30:00 Test Item Value Reference Range Interpretation Comments TROPONIN-I (test code = TROPI) < 0.012 NG/ML 0.012-0.033 L LIPID PROFILE (CORONARY RISK)2019-12-11 07:22:00 Test Item Value Reference Range Interpretation Comments TRIGLYCERIDES (test 57 MG/DL TRIGLYCE RIDES code = TRIG) REFERENCE RANGE:Normal: < 150 mg/dLBorderline High: 150-199 mg/dLHi gh: 200-499 mg/dLVe ry High: >=500 mg/ dL CHOLESTEROL (test code 110 MG/DL <200 = CHOL) HDL CHOLESTEROL (test 54 MG/DL 40-59 N code = HDL) LIPOPROTEIN LDL (test 46 MG/DL 0-99 N OPTIM AL.........<100 code = LDL) mg/dLNEAR OPTIMAL/ABOVE OPTIMAL........ .100-12 9 mg/dL BORDER LINE HIGH.........13 0-159 mg/dL HIGH.........16 0-189 mg/dL VERY HIGH.........>/ = 190 mg/dL LIPID PROFILE (CORONARY RISK)2019-12-11 07:11:00 Test Item Value Reference Range Interpretation Comments TRIGLYCERIDES (test 57 MG/DL TRIGLYCE RIDES code = TRIG) REFERENCE RANGE:Normal: < 150 mg/dLBorderline High: 150-199 mg/dLHi gh: 200-499 mg/dLVe ry High: >=500 mg/ dL CHOLESTEROL (test code 110 MG/DL <200 = CHOL) HDL CHOLESTEROL (test 54 MG/DL 40-59 N code = HDL) LIPOPROTEIN LDL (test MG/DL 0-99 code = LDL) PROTHROMBIN [id number] 06:57:00 Test Item Value Reference Range Interpretation Comments PROTHROMBIN TIME 12.2 SECONDS 9.4-12.5 N PATIENT (test code = PTP) INTERNATIONAL NORMAL 1.1 The INR is to be RATIO (test code = used only for INR) monitoring oral anticoagulantth erap y. INDICATION INR VALUE ---- ---- ---- -------1. Prophylaxis, de ep venous thrombos is, including high risk surgery. 2.0 - 3.0 2. Prophylaxis, deep venous thrombosis, hip surgery, treatm ent for deep venous thrombosis or pulmonary prevention of systemic emboli sm in patients wit h valvular heart disease, atrial fibrillation, tissue heart va lve, or acute myocar dial infarction. 2.0 - 3.0 3. Senior Director Finance al prosthesis hear t valves, recurre nt systemic emboli sm. 3.0 - 4.5 PTT [id number] 06:57:00 Test Item Value Reference Range Interpretation Comments PTT ACTIVATED (test code = APTT) 31.6 SECONDS 25.1-36.5 N [id number] 03:04:00 Test Item Value Reference Range Interpretation Comments TROPONIN-I (test code = TROPI) < 0.012 NG/ML 0.012-0.033 L URINALYSIS [id number] 22:15:00 Test Item Value Reference Range Interpretation Comments UA COLOR (test code = YELLOW YELLOW COLU) UA APPEARANCE (test code CLEAR CLEAR = APPU) UA GLUCOSE DIPSTICK (test NORMAL MG/DL NORMAL code = DGLUU) UA BILIRUBIN DIPSTICK NEGATIVE MG/DL NEGATIVE (test code = BILU) UA KETONE DIPSTICK (test NEGATIVE MG/DL NEGATIVE code = KETU) UA SPECIFIC GRAVITY (test 1.015 1.003-1.030 N code = SGU) UA BLOOD DIPSTICK (test NEGATIVE Nick/mm3 NEGATIVE code = DANTE) UA PH DIPSTICK (test code 6.0 5.0-9.0 N = CALEB) UA PROTEIN DIPSTICK (test NEGATIVE MG/DL NEGATIVE code = PROU) UA UROBILINIOGEN DIPSTICK NORMAL MG/DL NORMAL (test code = URO) UA NITRITE DIPSTICK (test NEGATIVE NEGATIVE code = SHARA) UA LEUKOCYTE ESTERASE NEGATIVE /mm3 NEGATIVE DIPSTICK (test code = LEUU) UA CULTURE NEEDED? (test NEGATIVE, NO CULTURE Culture Chk code = UACULT) Criteria SOURCE OF URINE: CLEAN CATCHDRUGS OF ABUSE SCREEN [id number] 22:15:00 Test Item Value Reference Range Interpretation Comments UR COCAINE (test code = NEGATIVE NEGATIVE Cut off Value: 300 COCAU) ng/mL UR CANNABINOIDS (THC) NEGATIVE NEGATIVE Cut of f Value: 50 (test code = CANU) ng/mL UR AMPHETAMINE (test code NEGATIVE NEGATIVE Cu t off Value: 1000 = AMPHU) ng/mL UR BARBITURATE QUAL (test NEGATIVE NEGATIVE Cu t off Value: 200 code = BARBQLU) ng/mL UR BENZODIAZEPINE (test NEGATIVE NEGATIVE Cut off Value: 200 code = BENZU) ng/mL UR OPIATES QUAL (test code NEGATIVE NEGATIVE C ut off Value: 300 = OPIAQLU) ng/mL UR PHENCYCLIDINE (PCP) NEGATIVE (test code = PHENCU) SOURCE OF URINE: CLEAN CATCHURINALYSIS [id number] 22:15:00 Test Item Value Reference Range Interpretation Comments UA COLOR (test code = YELLOW YELLOW COLU) UA APPEARANCE (test code CLEAR CLEAR = APPU) UA GLUCOSE DIPSTICK (test NORMAL MG/DL NORMAL code = DGLUU) UA BILIRUBIN DIPSTICK NEGATIVE MG/DL NEGATIVE (test code = BILU) UA KETONE DIPSTICK (test NEGATIVE MG/DL NEGATIVE code = KETU) UA SPECIFIC GRAVITY (test 1.015 1.003-1.030 N code = SGU) UA BLOOD DIPSTICK (test NEGATIVE Nick/mm3 NEGATIVE code = DANTE) UA PH DIPSTICK (test code 6.0 5.0-9.0 N = CALEB) UA PROTEIN DIPSTICK (test NEGATIVE MG/DL NEGATIVE code = PROU) UA UROBILINIOGEN DIPSTICK NORMAL MG/DL NORMAL (test code = URO) UA NITRITE DIPSTICK (test NEGATIVE NEGATIVE code = SHARA) UA LEUKOCYTE ESTERASE NEGATIVE /mm3 NEGATIVE DIPSTICK (test code = LEUU) UA CULTURE NEEDED? (test NEGATIVE, NO CULTURE Culture Chk code = UACULT) Criteria SOURCE OF URINE: CLEAN CATCHDRUGS OF ABUSE SCREEN [id number] 22:15:00 Test Item Value Reference Range Interpretation Comments UR COCAINE (test code = NEGATIVE NEGATIVE Cut off Value: 300 COCAU) ng/mL UR CANNABINOIDS (THC) NEGATIVE NEGATIVE Cut of f Value: 50 (test code = CANU) ng/mL UR AMPHETAMINE (test code NEGATIVE NEGATIVE Cu t off Value: 1000 = AMPHU) ng/mL UR BARBITURATE QUAL (test NEGATIVE NEGATIVE Cu t off Value: 200 code = BARBQLU) ng/mL UR BENZODIAZEPINE (test NEGATIVE NEGATIVE Cut off Value: 200 code = BENZU) ng/mL UR OPIATES QUAL (test code NEGATIVE NEGATIVE C ut off Value: 300 = OPIAQLU) ng/mL UR PHENCYCLIDINE (PCP) NEGATIVE NEGATIVE Cut o ff Value: 25 (test code = PHENCU) ng/mL SOURCE OF URINE: CLEAN CATCHURINALYSIS [id number] 22:14:00 Test Item Value Reference Range Interpretation Comments UA COLOR (test code = YELLOW YELLOW COLU) UA APPEARANCE (test code CLEAR CLEAR = APPU) UA GLUCOSE DIPSTICK (test NORMAL MG/DL NORMAL code = DGLUU) UA BILIRUBIN DIPSTICK NEGATIVE MG/DL NEGATIVE (test code = BILU) UA KETONE DIPSTICK (test NEGATIVE MG/DL NEGATIVE code = KETU) UA SPECIFIC GRAVITY (test 1.015 1.003-1.030 N code = SGU) UA BLOOD DIPSTICK (test NEGATIVE Nick/mm3 NEGATIVE code = DANTE) UA PH DIPSTICK (test code 6.0 5.0-9.0 N = CALEB) UA PROTEIN DIPSTICK (test NEGATIVE MG/DL NEGATIVE code = PROU) UA UROBILINIOGEN DIPSTICK NORMAL MG/DL NORMAL (test code = URO) UA NITRITE DIPSTICK (test NEGATIVE NEGATIVE code = SHARA) UA LEUKOCYTE ESTERASE NEGATIVE /mm3 NEGATIVE DIPSTICK (test code = LEUU) UA CULTURE NEEDED? (test NEGATIVE, NO CULTURE Culture Chk code = UACULT) Criteria SOURCE OF URINE: CLEAN CATCHDRUGS OF ABUSE SCREEN [id number] 22:14:00 Test Item Value Reference Range Interpretation Comments UR COCAINE (test code = NEGATIVE NEGATIVE Cut off Value: 300 COCAU) ng/mL UR CANNABINOIDS (THC) NEGATIVE NEGATIVE Cut of f Value: 50 (test code = CANU) ng/mL UR AMPHETAMINE (test code NEGATIVE NEGATIVE Cu t off Value: 1000 = AMPHU) ng/mL UR BARBITURATE QUAL (test NEGATIVE NEGATIVE Cu t off Value: 200 code = BARBQLU) ng/mL UR BENZODIAZEPINE (test NEGATIVE NEGATIVE Cut off Value: 200 code = BENZU) ng/mL UR OPIATES QUAL (test code NEGATIVE = OPIAQLU) UR PHENCYCLIDINE (PCP) NEGATIVE (test code = PHENCU) SOURCE OF URINE: CLEAN CATCHURINALYSIS [id number] 22:13:00 Test Item Value Reference Range Interpretation Comments UA COLOR (test code = YELLOW YELLOW COLU) UA APPEARANCE (test code CLEAR CLEAR = APPU) UA GLUCOSE DIPSTICK (test NORMAL MG/DL NORMAL code = DGLUU) UA BILIRUBIN DIPSTICK NEGATIVE MG/DL NEGATIVE (test code = BILU) UA KETONE DIPSTICK (test NEGATIVE MG/DL NEGATIVE code = KETU) UA SPECIFIC GRAVITY (test 1.015 1.003-1.030 N code = SGU) UA BLOOD DIPSTICK (test NEGATIVE Nick/mm3 NEGATIVE code = DANTE) UA PH DIPSTICK (test code 6.0 5.0-9.0 N = CALEB) UA PROTEIN DIPSTICK (test NEGATIVE MG/DL NEGATIVE code = PROU) UA UROBILINIOGEN DIPSTICK NORMAL MG/DL NORMAL (test code = URO) UA NITRITE DIPSTICK (test NEGATIVE NEGATIVE code = SHARA) UA LEUKOCYTE ESTERASE NEGATIVE /mm3 NEGATIVE DIPSTICK (test code = LEUU) UA CULTURE NEEDED? (test NEGATIVE, NO CULTURE Culture Chk code = UACULT) Criteria SOURCE OF URINE: CLEAN CATCHDRUGS OF ABUSE SCREEN [id number] 22:13:00 Test Item Value Reference Range Interpretation Comments UR COCAINE (test code = NEGATIVE COCAU) UR CANNABINOIDS (THC) NEGATIVE NEGATIVE Cut of f Value: 50 (test code = CANU) ng/mL UR AMPHETAMINE (test code NEGATIVE NEGATIVE Cu t off Value: 1000 = AMPHU) ng/mL UR BARBITURATE QUAL (test NEGATIVE NEGATIVE Cu t off Value: 200 code = BARBQLU) ng/mL UR BENZODIAZEPINE (test NEGATIVE NEGATIVE Cut off Value: 200 code = BENZU) ng/mL UR OPIATES QUAL (test code NEGATIVE = OPIAQLU) UR PHENCYCLIDINE (PCP) NEGATIVE (test code = PHENCU) SOURCE OF URINE: CLEAN CATCHURINALYSIS [id number] 22:12:00 Test Item Value Reference Range Interpretation Comments UA COLOR (test code = YELLOW YELLOW COLU) UA APPEARANCE (test code CLEAR CLEAR = APPU) UA GLUCOSE DIPSTICK (test NORMAL MG/DL NORMAL code = DGLUU) UA BILIRUBIN DIPSTICK NEGATIVE MG/DL NEGATIVE (test code = BILU) UA KETONE DIPSTICK (test NEGATIVE MG/DL NEGATIVE code = KETU) UA SPECIFIC GRAVITY (test 1.015 1.003-1.030 N code = SGU) UA BLOOD DIPSTICK (test NEGATIVE Nick/mm3 NEGATIVE code = DANTE) UA PH DIPSTICK (test code 6.0 5.0-9.0 N = CALEB) UA PROTEIN DIPSTICK (test NEGATIVE MG/DL NEGATIVE code = PROU) UA UROBILINIOGEN DIPSTICK NORMAL MG/DL NORMAL (test code = URO) UA NITRITE DIPSTICK (test NEGATIVE NEGATIVE code = SHARA) UA LEUKOCYTE ESTERASE NEGATIVE /mm3 NEGATIVE DIPSTICK (test code = LEUU) UA CULTURE NEEDED? (test NEGATIVE, NO CULTURE Culture Chk code = UACULT) Criteria SOURCE OF URINE: CLEAN CATCHDRUGS OF ABUSE SCREEN [id number] 22:12:00 Test Item Value Reference Range Interpretation Comments UR COCAINE (test code = NEGATIVE COCAU) UR CANNABINOIDS (THC) NEGATIVE (test code = CANU) UR AMPHETAMINE (test code NEGATIVE NEGATIVE Cu t off Value: 1000 = AMPHU) ng/mL UR BARBITURATE QUAL (test NEGATIVE code = BARBQLU) UR BENZODIAZEPINE (test NEGATIVE NEGATIVE Cut off Value: 200 code = BENZU) ng/mL UR OPIATES QUAL (test code NEGATIVE = OPIAQLU) UR PHENCYCLIDINE (PCP) NEGATIVE (test code = PHENCU) SOURCE OF URINE: CLEAN CATCHURINALYSIS [id number] 22:11:00 Test Item Value Reference Range Interpretation Comments UA COLOR (test code = YELLOW YELLOW COLU) UA APPEARANCE (test code CLEAR CLEAR = APPU) UA GLUCOSE DIPSTICK (test NORMAL MG/DL NORMAL code = DGLUU) UA BILIRUBIN DIPSTICK NEGATIVE MG/DL NEGATIVE (test code = BILU) UA KETONE DIPSTICK (test NEGATIVE MG/DL NEGATIVE code = KETU) UA SPECIFIC GRAVITY (test 1.015 1.003-1.030 N code = SGU) UA BLOOD DIPSTICK (test NEGATIVE Nick/mm3 NEGATIVE code = DANTE) UA PH DIPSTICK (test code 6.0 5.0-9.0 N = CALEB) UA PROTEIN DIPSTICK (test NEGATIVE MG/DL NEGATIVE code = PROU) UA UROBILINIOGEN DIPSTICK NORMAL MG/DL NORMAL (test code = URO) UA NITRITE DIPSTICK (test NEGATIVE NEGATIVE code = SHARA) UA LEUKOCYTE ESTERASE NEGATIVE /mm3 NEGATIVE DIPSTICK (test code = LEUU) UA CULTURE NEEDED? (test NEGATIVE, NO CULTURE Culture Chk code = UACULT) Criteria SOURCE OF URINE: CLEAN CATCHDRUGS OF ABUSE SCREEN [id number] 22:11:00 Test Item Value Reference Range Interpretation Comments UR COCAINE (test code = NEGATIVE COCAU) UR CANNABINOIDS (THC) NEGATIVE (test code = CANU) UR AMPHETAMINE (test code NEGATIVE = AMPHU) UR BARBITURATE QUAL (test NEGATIVE code = BARBQLU) UR BENZODIAZEPINE (test NEGATIVE NEGATIVE Cut off Value: 200 code = BENZU) ng/mL UR OPIATES QUAL (test code NEGATIVE = OPIAQLU) UR PHENCYCLIDINE (PCP) NEGATIVE (test code = PHENCU) SOURCE OF URINE: CLEAN CATCHURINALYSIS [id number] 22:04:00 Test Item Value Reference Range Interpretation Comments UA COLOR (test code = YELLOW YELLOW COLU) UA APPEARANCE (test code CLEAR CLEAR = APPU) UA GLUCOSE DIPSTICK (test NORMAL MG/DL NORMAL code = DGLUU) UA BILIRUBIN DIPSTICK NEGATIVE MG/DL NEGATIVE (test code = BILU) UA KETONE DIPSTICK (test NEGATIVE MG/DL NEGATIVE code = KETU) UA SPECIFIC GRAVITY (test 1.015 1.003-1.030 N code = SGU) UA BLOOD DIPSTICK (test NEGATIVE Nick/mm3 NEGATIVE code = DANTE) UA PH DIPSTICK (test code 6.0 5.0-9.0 N = CALEB) UA PROTEIN DIPSTICK (test NEGATIVE MG/DL NEGATIVE code = PROU) UA UROBILINIOGEN DIPSTICK NORMAL MG/DL NORMAL (test code = URO) UA NITRITE DIPSTICK (test NEGATIVE NEGATIVE code = SHARA) UA LEUKOCYTE ESTERASE NEGATIVE /mm3 NEGATIVE DIPSTICK (test code = LEUU) UA CULTURE NEEDED? (test NEGATIVE, NO CULTURE Culture Chk code = UACULT) Criteria SOURCE OF URINE: CLEAN CATCHDRUGS OF ABUSE SCREEN [id number] 22:04:00 Test Item Value Reference Range Interpretation Comments UR COCAINE (test code = COCAU) NEGATIVE UR CANNABINOIDS (THC) (test code = NEGATIVE CANU) UR AMPHETAMINE (test code = AMPHU) NEGATIVE UR BARBITURATE QUAL (test code = NEGATIVE BARBQLU) UR BENZODIAZEPINE (test code = BENZU) NEGATIVE UR OPIATES QUAL (test code = OPIAQLU) NEGATIVE UR PHENCYCLIDINE (PCP) (test code = NEGATIVE PHENCU) SOURCE OF URINE: CLEAN CATCHURINALYSIS [id number] 21:57:00 Test Item Value Reference Range Interpretation Comments UA COLOR (test code = COLU) YELLOW YELLOW UA APPEARANCE (test code = CLEAR CLEAR APPU) UA GLUCOSE DIPSTICK (test NORMAL MG/DL NORMAL code = DGLUU) UA BILIRUBIN DIPSTICK (test NEGATIVE MG/DL NEGATIVE code = BILU) UA KETONE DIPSTICK (test NEGATIVE MG/DL NEGATIVE code = KETU) UA SPECIFIC GRAVITY (test 1.015 1.003-1.030 N code = SGU) UA BLOOD DIPSTICK (test code NEGATIVE Nick/mm3 NEGATIVE = DANTE) UA PH DIPSTICK (test code = 6.0 5.0-9.0 N CALEB) UA PROTEIN DIPSTICK (test NEGATIVE MG/DL NEGATIVE code = PROU) UA UROBILINIOGEN DIPSTICK NORMAL MG/DL NORMAL (test code = URO) UA NITRITE DIPSTICK (test NEGATIVE NEGATIVE code = SHARA) UA LEUKOCYTE ESTERASE NEGATIVE /mm3 NEGATIVE DIPSTICK (test code = LEUU) UA CULTURE NEEDED? (test Criteria Culture Chk code = UACULT) SOURCE OF URINE: CLEAN CATCHDRUGS OF ABUSE SCREEN [id number] 21:57:00 Test Item Value Reference Range Interpretation Comments UR COCAINE (test code = COCAU) NEGATIVE UR CANNABINOIDS (THC) (test code = NEGATIVE CANU) UR AMPHETAMINE (test code = AMPHU) NEGATIVE UR BARBITURATE QUAL (test code = NEGATIVE BARBQLU) UR BENZODIAZEPINE (test code = BENZU) NEGATIVE UR OPIATES QUAL (test code = OPIAQLU) NEGATIVE UR PHENCYCLIDINE (PCP) (test code = NEGATIVE PHENCU) SOURCE OF URINE: CLEAN CATCHB-TYPE NATRIURETIC [id number] 21:14:00 Test Item Value Reference Range Interpretation Comments B-TYPE NATRIURETIC PEPTIDE (test 21.0 PG/ML 0-100 N code = BNP) BASIC METABOLIC [id number] 20:14:00 Test Item Value Reference Range Interpretation Comments SODIUM (test code = 137 MMOL/L 137-145 N NA) POTASSIUM (test code = 4.2 MMOL/L 3.5-5.1 N K) CHLORIDE (test code = 104 MMOL/L 98-107 N CL) CARBON DIOXIDE (test 24 MMOL/L 22-30 N code = CO2) GLUCOSE (test code = 88 MG/DL 74-106 N GLU) BLOOD UREA NITROGEN 15 MG/DL 9-20 N (test code = BUN) GLOMERULAR FILTRATION > 60 Report ing units: RATE (test code = GFR) ml/mi n/1.73 m2 (Modified MDRD Formula)Referen ce Range: > or = 6 0 ml/min/1.73 m2 CREATININE (test code 0.80 MG/DL 0.66-1.25 N = CREAT) CALCIUM (test code = 9.3 MG/DL 8.4-10.2 N CA) [id number] 20:14:00 Test Item Value Reference Range Interpretation Comments TROPONIN-I (test code = TROPI) < 0.012 NG/ML 0.012-0.033 L BASIC METABOLIC [id number] 20:02:00 Test Item Value Reference Range Interpretation Comments SODIUM (test code = 137 MMOL/L 137-145 N NA) POTASSIUM (test code = 4.2 MMOL/L 3.5-5.1 N K) CHLORIDE (test code = 104 MMOL/L 98-107 N CL) CARBON DIOXIDE (test 24 MMOL/L 22-30 N code = CO2) GLUCOSE (test code = 88 MG/DL 74-106 N GLU) BLOOD UREA NITROGEN 15 MG/DL 9-20 N (test code = BUN) GLOMERULAR FILTRATION > 60 Report ing units: RATE (test code = GFR) ml/mi n/1.73 m2 (Modified MDRD Formula)Referen ce Range: > or = 6 0 ml/min/1.73 m2 CREATININE (test code 0.80 MG/DL 0.66-1.25 N = CREAT) CALCIUM (test code = 9.3 MG/DL 8.4-10.2 N CA) [id number] 20:02:00 Test Item Value Reference Range Interpretation Comments TROPONIN-I (test code = TROPI) NG/ML 0.0-0.045 CBC W/AUTO [id number] 20:02:00 Test Item Value Reference Range Interpretation Comments WHITE BLOOD CELL (test code = 7.2 K/MM3 3.8-9.8 N WBC) RED BLOOD CELL (test code = 4.32 M/MM3 3.95-5.67 N RBC) HEMOGLOBIN (test code = HGB) 13.1 G/DL 12.4-16.7 N HEMATOCRIT (test code = HCT) 38.4 % 35.9-49.5 N MEAN CELL VOLUME (test code = 89 fL 81.7-96.1 N MCV) MEAN CELL HGB (test code = MCH) 30.3 pg 27.6-33.2 N MEAN CELL HGB CONCETRATION 34.1 % 32.9-35.5 N (test code = MCHC) RED CELL DISTRIBUTION WIDTH 12.5 % 12.1-15.2 N (test code = RDW) PLATELET COUNT (test code = 244 K/MM3 129-368 N PLT) MEAN PLATELET VOLUME (test code 9.0 fl 7.4-10.4 N = MPV) NEUTROPHIL % (test code = NT%) 57.1 % 43-75 N IMMATURE GRANULOCYTE % (test 0.3 % 0.0-2.0 N code = IG%) LYMPHOCYTE % (test code = LY%) 34.1 % 14-44 N MONOCYTE % (test code = MO%) 6.7 % 4-13 N EOSINOPHIL % (test code = EO%) 1.1 % 0-6 N BASOPHIL % (test code = BA%) 0.7 % 0-2 N NUCLEATED RBC % (test code = 0.0 % 0-1.0 N NRBC%) NEUTROPHIL # (test code = NT#) 4.08 K/mm3 2.0-7.6 N IMMATURE GRANULOCYTE # (test 0.02 x10 3/uL 0-0.03 N code = IG#) LYMPHOCYTE # (test code = LY#) 2.44 K/mm3 1.0-3.8 N MONOCYTE # (test code = MO#) 0.48 K/mm3 0.1-0.8 N EOSINOPHIL # (test code = EO#) 0.08 K/mm3 0.0-0.2 N BASOPHIL # (test code = BA#) 0.05 K/mm3 0.0-0.2 N NUCLEATED RBC # (test code = 0.00 K/mm3 0.0-0.1 N NRBC#) BASIC METABOLIC [id number] 20:01:00 Test Item Value Reference Range Interpretation Comments SODIUM (test code = 137 MMOL/L 137-145 N NA) POTASSIUM (test code = 4.2 MMOL/L 3.5-5.1 N K) CHLORIDE (test code = 104 MMOL/L 98-107 N CL) CARBON DIOXIDE (test 24 MMOL/L 22-30 N code = CO2) GLUCOSE (test code = MG/DL 74-106 GLU) BLOOD UREA NITROGEN 15 MG/DL 9-20 N (test code = BUN) GLOMERULAR FILTRATION > 60 Report ing units: RATE (test code = GFR) ml/mi n/1.73 m2 (Modified MDRD Formula)Referen ce Range: > or = 6 0 ml/min/1.73 m2 CREATININE (test code 0.80 MG/DL 0.66-1.25 N = CREAT) CALCIUM (test code = MG/DL 8.7-9.7 CA) [id number] 20:01:00 Test Item Value Reference Range Interpretation Comments TROPONIN-I (test code = TROPI) NG/ML 0.0-0.045 BASIC METABOLIC [id number] 19:58:00 Test Item Value Reference Range Interpretation Comments SODIUM (test code = NA) 137 MMOL/L 137-145 N POTASSIUM (test code = K) 4.2 MMOL/L 3.5-5.1 N CHLORIDE (test code = CL) 104 MMOL/L 98-107 N CARBON DIOXIDE (test code = CO2) MMOL/L 22-30 GLUCOSE (test code = GLU) MG/DL 74-106 BLOOD UREA NITROGEN (test code = MG/DL 9-20 BUN) GLOMERULAR FILTRATION RATE (test code = GFR) CREATININE (test code = CREAT) MG/DL 0.66-1.25 CALCIUM (test code = CA) MG/DL 8.7-9.7 [id number] 19:58:00 Test Item Value Reference Range Interpretation Comments TROPONIN-I (test code = TROPI) NG/ML 0.0-0.045 - XR CHEST [id number] 19:18:00 Patient Name: SYDNI SANCHEZ Unit No: [id number] EXAMS: CPT CODE: [id number] XR CHEST 1V 51290 LOCATION: Q15 HISTORY: 24-year-old male who presents with chest pain. COMMENT: A frontal chest radiograph was obtained at 7:11 p.m. The lungs are clear. The cardiac silhouette, ole, and mediastinum are unremarkable. Orthopedic hardware is seen overlying the dorsal spine. The soft tissues are unremarkable. IMPRESSION: There is no radiographic evidence of acute cardiopulmonary disease. at 1917 Reported and signed by: Chidi Li M.D. CC: Juan Chiang MD Technologist: Mena Ingram (RT) Transcrpt Date/Tm/Trnsp: 12/10/2019 (1917) [email or web address] Orig Print D/T: S: 12/10/2019 (1920) [facility] NAME: SYDNI SANCHEZ [id number] [address] PHYS: [id number] - [place] [address] : 1995 AGE: 24 SEX: M LOC: Z.ERS PHONE #: [phone] EXAM DATE: 12/10/2019 STATUS: PRE ER FAX #: [phone] RADIOLOGY NO: PAGE 1 Signed ReportHEMATOLOGY 2019-12-03 00:03:00 Test Item Value Reference Range Interpretation Comments Neutrophils # (test code = Neutrophils 3.7 1.5-8.1 #) [id number] 00:03:00 Test Item Value Reference Range Interpretation Comments Lymphocytes # (test code = Lymphocytes 2.3 1.0-5.5 #) [id number] 00:03:00 Test Item Value Reference Range Interpretation Comments Monocytes # (test code 0.4 See_Comment [Aut omated message] The = Monocytes #) system which generated this result tra nsmitted reference range : <=0.8. The reference r kvng was not used to int erpret this result as normal/abnormal . [facility] [id number] 00:03:00 Test Item Value Reference Range Interpretation Comments Eosinophils # (test code 0.1 See_Comment [A utomated message] The = Eosinophils #) system whic h generated this result tra nsmitted reference range : <=0.5. The reference r kvng was not used to int erpret this result as normal/abnormal . [facility] CenterDomin[facility] [employer] [id number] 00:03:00 Test Item Value Reference Range Interpretation Comments Total CK (test code = Total CK) 109 12-191 [facility] LakeOneShield [id number] 00:03:00 Test Item Value Reference Range Interpretation Comments Troponin-I (test code no gt See_Comment [Auto mated message] The = Troponin-I) system which g enerated this result transmit katerin reference range : <=0.40. The reference r kvng was not used to interpr et this result as carlita l/abnormal. [facility] [id number] 00:03:00 Test Item Value Reference Range Interpretation Comments Glucose Lvl (test code = Glucose Lvl) 112 70-99 [facility] [id number] 00:03:00 Test Item Value Reference Range Interpretation Comments BUN (test code = BUN) 13 7-22 [facility] [id number] 00:03:00 Test Item Value Reference Range Interpretation Comments Creatinine Lvl (test code = Creatinine 0.78 0.50-1.40 Lvl) [facility] [id number] 00:03:00 Test Item Value Reference Range Interpretation Comments Sodium Lvl (test code = Sodium Lvl) 141 135-145 [facility] [id number] 00:03:00 Test Item Value Reference Range Interpretation Comments Potassium Lvl (test code = Potassium 3.8 3.5-5.1 Lvl) [facility] [id number] 00:03:00 Test Item Value Reference Range Interpretation Comments Chloride Lvl (test code = Chloride Lvl) 108 95-109 [facility] [id number] 00:03:00 Test Item Value Reference Range Interpretation Comments CO2 (test code = CO2) 28 24-32 [facility] [id number] 00:03:00 Test Item Value Reference Range Interpretation Comments Calcium Lvl (test code = Calcium Lvl) 9.3 8.5-10.5 [facility] [id number] 00:03:00 Test Item Value Reference Range Interpretation Comments Total Protein (test code = Total 7.5 6.4-8.4 Protein) [facility] [id number] 00:03:00 Test Item Value Reference Range Interpretation Comments Albumin Lvl (test code = Albumin Lvl) 4.0 3.5-5.0 [facility] [id number] 00:03:00 Test Item Value Reference Range Interpretation Comments ALT (test code = ALT) 21 See_Comment [Auto mated message] The system which ge nerated this result transmit katerin reference range : <=65. The reference range was not used to interpr et this result as carlita l/abnormal. [facility] [id number] 00:03:00 Test Item Value Reference Range Interpretation Comments AST (test code = AST) 16 See_Comment [Auto mated message] The system which ge nerated this result transmit katerin reference range : <=37. The reference range was not used to interpr et this result as carlita l/abnormal. [facility] [place] [id number] 00:03:00 Test Item Value Reference Range Interpretation Comments Alk Phos (test code = Alk Phos) 96 39-136 [facility] [id number] 00:03:00 Test Item Value Reference Range Interpretation Comments Bili Total (test code = Bili Total) 0.4 0.2-1.3 [facility] [id number] 00:03:00 Test Item Value Reference Range Interpretation Comments AGAP (test code = AGAP) 8.8 10.0-20.0 [facility]2020-03-06 00:03:00 Test Item Value Reference Range Interpretation Comments B/C Ratio (test code = B/C Ratio) 17 1 6-25 [facility]2020-03-06 00:03:00 Test Item Value Reference Range Interpretation Comments Globulin (test code = Globulin) 3.5 2.7-4.2 [facility]2020-03-06 00:03:00 Test Item Value Reference Range Interpretation Comments A/G Ratio (test code = A/G Ratio) 1.1 1 0.7-1.6 [facility] [id number] 00:03:00 Test Item Value Reference Range Interpretation Comments eGFR (test code = eGFR) 128 [facility]WrbqecuHKKFVINZXD2482-34-70 00:03:00 Test Item Value Reference Range Interpretation Comments WBC (test code = WBC) 6.5 3.7-10.4 [facility]viewNudiqboMEFOTPWNRO4604-52-62 00:03:00 Test Item Value Reference Range Interpretation Comments RBC (test code = RBC) 4.26 4.70-6.10 [facility]viewUkkftnoEZQCGKXLFL1574-70-64 00:03:00 Test Item Value Reference Range Interpretation Comments Hgb (test code = Hgb) 13.0 14.0-18.0 [facility]viewPcrwsqeNGMWLFREXL2401-91-82 00:03:00 Test Item Value Reference Range Interpretation Comments Hct (test code = Hct) 37.1 42.0-54.0 [facility]viewEldbmhqVDQWPQLPBW8229-83-61 00:03:00 Test Item Value Reference Range Interpretation Comments MCV (test code = MCV) 87.0 80.0-94.0 [facility]TimkymoTCGIWCYPVF5321-67-35 00:03:00 Test Item Value Reference Range Interpretation Comments MCH (test code = MCH) 30.5 pg 27.0-31.0 [facility] LongviewQniftrwSEDLLTEMVH4285-56-25 00:03:00 Test Item Value Reference Range Interpretation Comments MCHC (test code = MCHC) 35.1 32.0-36.0 [facility]viewKvdxhwjUKNRWOKRPD4923-66-39 00:03:00 Test Item Value Reference Range Interpretation Comments RDW (test code = RDW) 13.7 11.5-14.5 [facility] LongviewTfkvzsfTNFOVDUOBV1364-97-13 00:03:00 Test Item Value Reference Range Interpretation Comments Platelet (test code = Platelet) 245 133-450 [facility]viewVhxruoqJUANTZRSIV4607-30-16 00:03:00 Test Item Value Reference Range Interpretation Comments MPV (test code = MPV) 6.7 7.4-10.4 [facility]viewQsjjkmcFXQUIOGBKV0144-52-59 00:03:00 Test Item Value Reference Range Interpretation Comments Segs (test code = Segs) 56.0 45.0-75.0 [facility] LongviewDsevlzzPVIXPJSHFO6486-42-60 00:03:00 Test Item Value Reference Range Interpretation Comments Lymphocytes (test code = Lymphocytes) 36.0 20.0-40.0 [facility] LongviewDwhastaONBCMKUIUJ0942-51-10 00:03:00 Test Item Value Reference Range Interpretation Comments Monocytes (test code = Monocytes) 6.0 2.0-12.0 [facility]viewKzqizkpXCZJSYKXFG3911-07-38 00:03:00 Test Item Value Reference Range Interpretation Comments Eosinophils (test code = 1.5 See_Comment [A utomated message] The Eosinophils) system which ge nerated this result tra nsmitted reference range : <=4.0. The reference r kvng was not used to int erpret this result as normal/abnormal . [facility] LongviewAtyjibjPJHCCREZBK0308-60-76 00:03:00 Test Item Value Reference Range Interpretation Comments Basophils (test code = 0.5 See_Comment [Aut omated message] The Basophils) system which ge nerated this result tra nsmitted reference range : <=1.0. The reference r kvng was not used to int erpret this result as normal/abnormal . [facility] LongviewEmpiiepMEZTQZOZNS0660-78-84 00:03:00 Test Item Value Reference Range Interpretation Comments Neutrophils # (test code = Neutrophils 3.7 1.5-8.1 #) [facility]viewCnvnbjtXWPYUJQZCB1972-14-32 00:03:00 Test Item Value Reference Range Interpretation Comments Lymphocytes # (test code = Lymphocytes 2.3 1.0-5.5 #) [facility] LongviewOzqbdqmFULUJKKLXZ7527-42-25 00:03:00 Test Item Value Reference Range Interpretation Comments Monocytes # (test code 0.4 See_Comment [Aut omated message] The = Monocytes #) system which generated this result tra nsmitted reference range : <=0.8. The reference r kvng was not used to int erpret this result as normal/abnormal . [facility]viewWdzfzbeSAIFTIRRQC0379-02-63 00:03:00 Test Item Value Reference Range Interpretation Comments Eosinophils # (test code 0.1 See_Comment [A utomated message] The = Eosinophils #) system ic h generated this result tra nsmitted reference range : <=0.5. The reference r kvng was not used to int erpret this result as normal/abnormal . [facility] [employer]AC [id number] 00:03:00 Test Item Value Reference Range Interpretation Comments Total CK (test code = Total CK) 109 12-191 [facility] CenterDomin-[employer] [id number] 00:03:00 Test Item Value Reference Range Interpretation Comments Troponin-I (test code no gt See_Comment [Auto mated message] The = Troponin-I) system which g enerated this result transmit katerin reference range : <=0.40. The reference r kvng was not used to interpr et this result as carlita l/abnormal. [facility] [id number] 00:03:00 Test Item Value Reference Range Interpretation Comments Glucose Lvl (test code = Glucose Lvl) 112 70-99 [facility] [id number] 00:03:00 Test Item Value Reference Range Interpretation Comments BUN (test code = BUN) 13 7-22 [facility] [id number] 00:03:00 Test Item Value Reference Range Interpretation Comments Creatinine Lvl (test code = Creatinine 0.78 0.50-1.40 Lvl) [facility] [id number] 00:03:00 Test Item Value Reference Range Interpretation Comments Sodium Lvl (test code = Sodium Lvl) 141 135-145 [facility] [id number] 00:03:00 Test Item Value Reference Range Interpretation Comments Potassium Lvl (test code = Potassium 3.8 3.5-5.1 Lvl) [facility] [id number] 00:03:00 Test Item Value Reference Range Interpretation Comments Chloride Lvl (test code = Chloride Lvl) 108 95-109 [facility] [id number] 00:03:00 Test Item Value Reference Range Interpretation Comments CO2 (test code = CO2) 28 24-32 [facility] [id number] 00:03:00 Test Item Value Reference Range Interpretation Comments Calcium Lvl (test code = Calcium Lvl) 9.3 8.5-10.5 [facility] [id number] 00:03:00 Test Item Value Reference Range Interpretation Comments Total Protein (test code = Total 7.5 6.4-8.4 Protein) [facility] [id number] 00:03:00 Test Item Value Reference Range Interpretation Comments Albumin Lvl (test code = Albumin Lvl) 4.0 3.5-5.0 [facility] CenterDigital RoyaltyUNC [facility] [id number] 00:03:00 Test Item Value Reference Range Interpretation Comments ALT (test code = ALT) 21 See_Comment [Auto mated message] The system which ge nerated this result transmit katerin reference range : <=65. The reference range was not used to interpr et this result as carlita l/abnormal. [facility] [id number] 00:03:00 Test Item Value Reference Range Interpretation Comments AST (test code = AST) 16 See_Comment [Auto mated message] The system which ge nerated this result transmit katerin reference range : <=37. The reference range was not used to interpr et this result as carlita l/abnormal. [facility] LakeWebsupport [id number] 00:03:00 Test Item Value Reference Range Interpretation Comments Alk Phos (test code = Alk Phos) 96 39-136 [facility] [id number] 00:03:00 Test Item Value Reference Range Interpretation Comments Bili Total (test code = Bili Total) 0.4 0.2-1.3 [facility] LakeWebsupport [id number] 00:03:00 Test Item Value Reference Range Interpretation Comments AGAP (test code = AGAP) 8.8 10.0-20.0 [facility]2020-03-06 00:03:00 Test Item Value Reference Range Interpretation Comments B/C Ratio (test code = B/C Ratio) 17 1 6-25 [facility] [id number] 00:03:00 Test Item Value Reference Range Interpretation Comments Globulin (test code = Globulin) 3.5 2.7-4.2 [facility] [id number] 00:03:00 Test Item Value Reference Range Interpretation Comments A/G Ratio (test code = A/G Ratio) 1.1 1 0.7-1.6 [facility] LakeWebs[facility] [id number] 00:03:00 Test Item Value Reference Range Interpretation Comments eGFR (test code = eGFR) 128 [facility]viewJheduiuSIZMVDFWXH6118-56-59 00:03:00 Test Item Value Reference Range Interpretation Comments WBC (test code = WBC) 6.5 3.7-10.4 [facility] LongviewTvjtmjfRSJROXNEHL3205-52-15 00:03:00 Test Item Value Reference Range Interpretation Comments RBC (test code = RBC) 4.26 4.70-6.10 [facility] LongviewFeonqosJILYIWBOMN4680-55-78 00:03:00 Test Item Value Reference Range Interpretation Comments Hgb (test code = Hgb) 13.0 14.0-18.0 [facility] LongviewKigtaflUUZZVKZPGQ7168-61-94 00:03:00 Test Item Value Reference Range Interpretation Comments Hct (test code = Hct) 37.1 42.0-54.0 [facility] LongviewBvflnqtWHQDZPGJLG8029-12-95 00:03:00 Test Item Value Reference Range Interpretation Comments MCV (test code = MCV) 87.0 80.0-94.0 [facility] LongviewIlrfdzyZYDBGJTOKA5374-81-70 00:03:00 Test Item Value Reference Range Interpretation Comments MCH (test code = MCH) 30.5 pg 27.0-31.0 [facility] LongviewXrlmiqkDTTDYQMRLR4182-73-32 00:03:00 Test Item Value Reference Range Interpretation Comments MCHC (test code = MCHC) 35.1 32.0-36.0 [facility] LongviewMcbmtuqPMAQDHJMOF3462-49-79 00:03:00 Test Item Value Reference Range Interpretation Comments RDW (test code = RDW) 13.7 11.5-14.5 [facility] LongviewGfhvlshOZTXOONCJO5831-36-74 00:03:00 Test Item Value Reference Range Interpretation Comments Platelet (test code = Platelet) 245 133-450 [facility] LongviewZpitvhjLKNTIBFEGI4079-00-11 00:03:00 Test Item Value Reference Range Interpretation Comments MPV (test code = MPV) 6.7 7.4-10.4 [facility] LongviewOtlljojTATOKHLIGF1228-32-38 00:03:00 Test Item Value Reference Range Interpretation Comments Segs (test code = Segs) 56.0 45.0-75.0 [facility] LongviewOjvcwohBOLKLICLOQ3315-33-92 00:03:00 Test Item Value Reference Range Interpretation Comments Lymphocytes (test code = Lymphocytes) 36.0 20.0-40.0 [facility] LongviewQxyfavnPXFHNYGGMS7925-19-27 00:03:00 Test Item Value Reference Range Interpretation Comments Monocytes (test code = Monocytes) 6.0 2.0-12.0 [facility] LongviewCutgwohRGMLLUNADD8414-50-70 00:03:00 Test Item Value Reference Range Interpretation Comments Eosinophils (test code = 1.5 See_Comment [A utomated message] The Eosinophils) system which ge nerated this result tra nsmitted reference range : <=4.0. The reference r kvng was not used to int erpret this result as normal/abnormal . [facility] HospitalRcosmrmPVGFRRZSSK4519-61-23 00:03:00 Test Item Value Reference Range Interpretation Comments Basophils (test code = 0.5 See_Comment [Aut omated message] The Basophils) system which ge nerated this result tra nsmitted reference range : <=1.0. The reference r kvng was not used to int erpret this result as normal/abnormal . [facility] HospitalJsvlaxlOQUAOHWFSH1926-91-52 00:03:00 Test Item Value Reference Range Interpretation Comments Neutrophils # (test code = Neutrophils 3.7 1.5-8.1 #) [facility] LongviewAxadlalXUXSIBOAMR0249-14-08 00:03:00 Test Item Value Reference Range Interpretation Comments Lymphocytes # (test code = Lymphocytes 2.3 1.0-5.5 #) [facility] HospitalXtzfjenDJGPZHSXJO6247-07-69 00:03:00 Test Item Value Reference Range Interpretation Comments Monocytes # (test code 0.4 See_Comment [Aut omated message] The = Monocytes #) system which generated this result tra nsmitted reference range : <=0.8. The reference r kvng was not used to int erpret this result as normal/abnormal . [facility] HospitalGyvkauuTDALKUJNAL0461-35-07 00:03:00 Test Item Value Reference Range Interpretation Comments Eosinophils # (test code 0.1 See_Comment [A utomated message] The = Eosinophils #) system whic h generated this result tra nsmitted reference range : <=0.5. The reference r kvng was not used to int erpret this result as normal/abnormal . [facility] Lake[facility]du[facility] [id number] 00:03:00 Test Item Value Reference Range Interpretation Comments Total CK (test code = Total CK) 109 12-191 [facility] Lake[facility] [id number] 00:03:00 Test Item Value Reference Range Interpretation Comments Troponin-I (test code no gt See_Comment [Auto mated message] The = Troponin-I) system which g enerated this result transmit katerin reference range : <=0.40. The reference r kvng was not used to interpr et this result as carlita l/abnormal. [facility] LakeWebsupport [id number] 00:03:00 Test Item Value Reference Range Interpretation Comments Glucose Lvl (test code = Glucose Lvl) 112 70-99 [place] [id number] 00:03:00 Test Item Value Reference Range Interpretation Comments BUN (test code = BUN) 13 7-22 [facility]2020-03-06 00:03:00 Test Item Value Reference Range Interpretation Comments Creatinine Lvl (test code = Creatinine 0.78 0.50-1.40 Lvl) [facility]2020-03-06 00:03:00 Test Item Value Reference Range Interpretation Comments Sodium Lvl (test code = Sodium Lvl) 141 135-145 [facility]2020-03-06 00:03:00 Test Item Value Reference Range Interpretation Comments Potassium Lvl (test code = Potassium 3.8 3.5-5.1 Lvl) [facility] [id number] 00:03:00 Test Item Value Reference Range Interpretation Comments Chloride Lvl (test code = Chloride Lvl) 108 95-109 [facility]2020-03-06 00:03:00 Test Item Value Reference Range Interpretation Comments CO2 (test code = CO2) 28 24-32 [facility] [id number] 00:03:00 Test Item Value Reference Range Interpretation Comments Calcium Lvl (test code = Calcium Lvl) 9.3 8.5-10.5 [facility] [id number] 00:03:00 Test Item Value Reference Range Interpretation Comments Total Protein (test code = Total 7.5 6.4-8.4 Protein) [facility]2020-03-06 00:03:00 Test Item Value Reference Range Interpretation Comments Albumin Lvl (test code = Albumin Lvl) 4.0 3.5-5.0 [facility] LakeWe[facility] [id number] 00:03:00 Test Item Value Reference Range Interpretation Comments ALT (test code = ALT) 21 See_Comment [Auto mated message] The system which ge nerated this result transmit katerin reference range : <=65. The reference range was not used to interpr et this result as carlita l/abnormal. [facility] [id number] 00:03:00 Test Item Value Reference Range Interpretation Comments AST (test code = AST) 16 See_Comment [Auto mated message] The system which ge nerated this result transmit katerin reference range : <=37. The reference range was not used to interpr et this result as carlita l/abnormal. [facility] [id number] 00:03:00 Test Item Value Reference Range Interpretation Comments Alk Phos (test code = Alk Phos) 96 39-136 [facility] [id number] 00:03:00 Test Item Value Reference Range Interpretation Comments Bili Total (test code = Bili Total) 0.4 0.2-1.3 [facility] [id number] 00:03:00 Test Item Value Reference Range Interpretation Comments AGAP (test code = AGAP) 8.8 10.0-20.0 [facility] [id number] 00:03:00 Test Item Value Reference Range Interpretation Comments B/C Ratio (test code = B/C Ratio) 17 1 6-25 [facility] [id number] 00:03:00 Test Item Value Reference Range Interpretation Comments Globulin (test code = Globulin) 3.5 2.7-4.2 [facility] [id number] 00:03:00 Test Item Value Reference Range Interpretation Comments A/G Ratio (test code = A/G Ratio) 1.1 1 0.7-1.6 [facility] [id number] 00:03:00 Test Item Value Reference Range Interpretation Comments eGFR (test code = eGFR) 128 [facility] CenterHfcawjcSRCFBCXGPF2349-83-15 00:03:00 Test Item Value Reference Range Interpretation Comments WBC (test code = WBC) 6.5 3.7-10.4 [facility] CenterKjkahaqZBDRVVBYEX1620-46-16 00:03:00 Test Item Value Reference Range Interpretation Comments RBC (test code = RBC) 4.26 4.70-6.10 [facility] CenterQzzsqnoIZCEZFNBAY7113-25-99 00:03:00 Test Item Value Reference Range Interpretation Comments Hgb (test code = Hgb) 13.0 14.0-18.0 [facility] CenterRniyqnuIVPTUXKNWI1707-42-64 00:03:00 Test Item Value Reference Range Interpretation Comments Hct (test code = Hct) 37.1 42.0-54.0 [facility]viewMtamrsqPZNBVIOJSA3446-98-83 00:03:00 Test Item Value Reference Range Interpretation Comments MCV (test code = MCV) 87.0 80.0-94.0 [place] 050390-03-06 00:03:00 Test Item Value Reference Range Interpretation Comments MCH (test code = MCH) 30.5 pg 27.0-31.0 [facility] LongviewKpmtbdaHYJBKSXVCB2229-11-08 00:03:00 Test Item Value Reference Range Interpretation Comments MCHC (test code = MCHC) 35.1 32.0-36.0 [facility] LongviewBrcvdwuXBCBRQCGNC6452-67-75 00:03:00 Test Item Value Reference Range Interpretation Comments RDW (test code = RDW) 13.7 11.5-14.5 [place] 050390-03-06 00:03:00 Test Item Value Reference Range Interpretation Comments Platelet (test code = Platelet) 245 133-450 [facility] LongviewUirymyxGGUNUQXLKS4952-49-00 00:03:00 Test Item Value Reference Range Interpretation Comments MPV (test code = MPV) 6.7 7.4-10.4 [facility] LongviewZpljileKKNMYQUUMF3570-30-77 00:03:00 Test Item Value Reference Range Interpretation Comments Segs (test code = Segs) 56.0 45.0-75.0 [facility] LongviewSgsoffgOHYUEVLSGB2442-66-17 00:03:00 Test Item Value Reference Range Interpretation Comments Lymphocytes (test code = Lymphocytes) 36.0 20.0-40.0 [facility] LongviewXpdixiuBPQLGGOKRJ3836-77-48 00:03:00 Test Item Value Reference Range Interpretation Comments Monocytes (test code = Monocytes) 6.0 2.0-12.0 [place] 050390-03-06 00:03:00 Test Item Value Reference Range Interpretation Comments Eosinophils (test code = 1.5 See_Comment [A utomated message] The Eosinophils) system which ge nerated this result tra nsmitted reference range : <=4.0. The reference r kvng was not used to int erpret this result as normal/abnormal . [facility] LongviewOmxwzbqYSZAFMJXTP4362-25-39 00:03:00 Test Item Value Reference Range Interpretation Comments Basophils (test code = 0.5 See_Comment [Aut omated message] The Basophils) system which ge nerated this result tra nsmitted reference range : <=1.0. The reference r kvng was not used to int erpret this result as normal/abnormal . [facility] CenterCigukutDELARPJWSL0224-55-68 00:03:00 Test Item Value Reference Range Interpretation Comments Neutrophils # (test code = Neutrophils 3.7 1.5-8.1 #) [facility]CtrjqqdVQHANQVQPH7438-08-35 00:03:00 Test Item Value Reference Range Interpretation Comments Lymphocytes # (test code = Lymphocytes 2.3 1.0-5.5 #) [facility] HospitalGdqllvgBQSSXNBKCE5515-13-16 00:03:00 Test Item Value Reference Range Interpretation Comments Monocytes # (test code 0.4 See_Comment [Aut omated message] The = Monocytes #) system which generated this result tra nsmitted reference range : <=0.8. The reference r kvng was not used to int erpret this result as normal/abnormal . [facility] LakeFvsiqawHIUCCTMHCK0255-42-99 00:03:00 Test Item Value Reference Range Interpretation Comments Eosinophils # (test code 0.1 See_Comment [A utomated message] The = Eosinophils #) system whic h generated this result tra nsmitted reference range : <=0.5. The reference r kvng was not used to int erpret this result as normal/abnormal . [facility] [employer] [id number] 00:03:00 Test Item Value Reference Range Interpretation Comments Total CK (test code = Total CK) 109 12-191 [facility] [id number] 00:03:00 Test Item Value Reference Range Interpretation Comments Troponin-I (test code no gt See_Comment [Auto mated message] The = Troponin-I) system which g enerated this result transmit katerin reference range : <=0.40. The reference r kvng was not used to interpr et this result as carlita l/abnormal. [facility] [employer]2020-03-06 00:03:00 Test Item Value Reference Range Interpretation Comments Glucose Lvl (test code = Glucose Lvl) 112 70-99 [facility] [id number] 00:03:00 Test Item Value Reference Range Interpretation Comments BUN (test code = BUN) 13 7-22 [facility] [employer]2020-03-06 00:03:00 Test Item Value Reference Range Interpretation Comments Creatinine Lvl (test code = Creatinine 0.78 0.50-1.40 Lvl) [facility] [id number] 00:03:00 Test Item Value Reference Range Interpretation Comments Sodium Lvl (test code = Sodium Lvl) 141 135-145 [facility] [id number] 00:03:00 Test Item Value Reference Range Interpretation Comments Potassium Lvl (test code = Potassium 3.8 3.5-5.1 Lvl) [facility] [id number] 00:03:00 Test Item Value Reference Range Interpretation Comments Chloride Lvl (test code = Chloride Lvl) 108 95-109 [facility] [id number] 00:03:00 Test Item Value Reference Range Interpretation Comments CO2 (test code = CO2) 28 24-32 [facility] [id number] 00:03:00 Test Item Value Reference Range Interpretation Comments Calcium Lvl (test code = Calcium Lvl) 9.3 8.5-10.5 [facility] [id number] 00:03:00 Test Item Value Reference Range Interpretation Comments Total Protein (test code = Total 7.5 6.4-8.4 Protein) [facility] [id number] 00:03:00 Test Item Value Reference Range Interpretation Comments Albumin Lvl (test code = Albumin Lvl) 4.0 3.5-5.0 [facility] [id number] 00:03:00 Test Item Value Reference Range Interpretation Comments ALT (test code = ALT) 21 See_Comment [Auto mated message] The system which ge nerated this result transmit katerin reference range : <=65. The reference range was not used to interpr et this result as carlita l/abnormal. [facility] [employer] [id number] 00:03:00 Test Item Value Reference Range Interpretation Comments Total CK (test code = Total CK) 109 12-191 [facility] [id number] 00:03:00 Test Item Value Reference Range Interpretation Comments AST (test code = AST) 16 See_Comment [Auto mated message] The system which ge nerated this result transmit katerin reference range : <=37. The reference range was not used to interpr et this result as carlita l/abnormal. [facility] [employer]annCARDI[employer] [id number] 00:03:00 Test Item Value Reference Range Interpretation Comments Troponin-I (test code no gt See_Comment [Auto mated message] The = Troponin-I) system which g enerated this result transmit katerin reference range : <=0.40. The reference r kvng was not used to interpr et this result as carlita l/abnormal. [facility] [id number] 00:03:00 Test Item Value Reference Range Interpretation Comments Alk Phos (test code = Alk Phos) 96 39-136 [facility] [id number] 00:03:00 Test Item Value Reference Range Interpretation Comments Glucose Lvl (test code = Glucose Lvl) 112 70-99 [facility] [id number] 00:03:00 Test Item Value Reference Range Interpretation Comments Bili Total (test code = Bili Total) 0.4 0.2-1.3 [facility] [id number] 00:03:00 Test Item Value Reference Range Interpretation Comments AGAP (test code = AGAP) 8.8 10.0-20.0 [facility] [id number] 00:03:00 Test Item Value Reference Range Interpretation Comments BUN (test code = BUN) 13 7-22 [facility] [id number] 00:03:00 Test Item Value Reference Range Interpretation Comments B/C Ratio (test code = B/C Ratio) 17 1 6-25 [facility] [id number] 00:03:00 Test Item Value Reference Range Interpretation Comments Creatinine Lvl (test code = Creatinine 0.78 0.50-1.40 Lvl) [facility] [id number] 00:03:00 Test Item Value Reference Range Interpretation Comments Globulin (test code = Globulin) 3.5 2.7-4.2 [facility] [id number] 00:03:00 Test Item Value Reference Range Interpretation Comments Sodium Lvl (test code = Sodium Lvl) 141 135-145 [facility] [id number] 00:03:00 Test Item Value Reference Range Interpretation Comments A/G Ratio (test code = A/G Ratio) 1.1 1 0.7-1.6 [facility]2020-03-06 00:03:00 Test Item Value Reference Range Interpretation Comments Potassium Lvl (test code = Potassium 3.8 3.5-5.1 Lvl) [facility]2020-03-06 00:03:00 Test Item Value Reference Range Interpretation Comments eGFR (test code = eGFR) 128 [facility]2020-03-06 00:03:00 Test Item Value Reference Range Interpretation Comments Chloride Lvl (test code = Chloride Lvl) 108 95-109 [place] 050390-03-06 00:03:00 Test Item Value Reference Range Interpretation Comments WBC (test code = WBC) 6.5 3.7-10.4 [facility]2020-03-06 00:03:00 Test Item Value Reference Range Interpretation Comments CO2 (test code = CO2) 28 24-32 [place] 050390-03-06 00:03:00 Test Item Value Reference Range Interpretation Comments RBC (test code = RBC) 4.26 4.70-6.10 [place] 644980-03-06 00:03:00 Test Item Value Reference Range Interpretation Comments Calcium Lvl (test code = Calcium Lvl) 9.3 8.5-10.5 [facility]viewKyqmwmcWTPDLPWXUZ2545-94-95 00:03:00 Test Item Value Reference Range Interpretation Comments Hgb (test code = Hgb) 13.0 14.0-18.0 [facility]2020-03-06 00:03:00 Test Item Value Reference Range Interpretation Comments Total Protein (test code = Total 7.5 6.4-8.4 Protein) [facility]viewYxgydldAJUKHHMVKF8629-67-76 00:03:00 Test Item Value Reference Range Interpretation Comments Hct (test code = Hct) 37.1 42.0-54.0 [place] 644980-03-06 00:03:00 Test Item Value Reference Range Interpretation Comments Albumin Lvl (test code = Albumin Lvl) 4.0 3.5-5.0 [place] 050390-03-06 00:03:00 Test Item Value Reference Range Interpretation Comments MCV (test code = MCV) 87.0 80.0-94.0 [place] 644980-03-06 00:03:00 Test Item Value Reference Range Interpretation Comments ALT (test code = ALT) 21 See_Comment [Auto mated message] The system which ge nerated this result transmit katerin reference range : <=65. The reference range was not used to interpr et this result as carlita l/abnormal. [facility] QfiprllKCLEHTOPVK3043-26-17 00:03:00 Test Item Value Reference Range Interpretation Comments MCH (test code = MCH) 30.5 pg 27.0-31.0 [facility] AoqvhnwTQIZDKPYST4480-09-48 00:03:00 Test Item Value Reference Range Interpretation Comments MCHC (test code = MCHC) 35.1 32.0-36.0 [employer] [id number] 00:03:00 Test Item Value Reference Range Interpretation Comments AST (test code = AST) 16 See_Comment [Auto mated message] The system which ge nerated this result transmit katerin reference range : <=37. The reference range was not used to interpr et this result as carlita l/abnormal. [facility] QjyjohxPOUZHSBDFQ2873-34-82 00:03:00 Test Item Value Reference Range Interpretation Comments RDW (test code = RDW) 13.7 11.5-14.5 [facility] [id number] 00:03:00 Test Item Value Reference Range Interpretation Comments Alk Phos (test code = Alk Phos) 96 39-136 [facility] HlckrcaJBWZOQAAZE2687-30-68 00:03:00 Test Item Value Reference Range Interpretation Comments Platelet (test code = Platelet) 245 133-450 [facility] [id number] 00:03:00 Test Item Value Reference Range Interpretation Comments Bili Total (test code = Bili Total) 0.4 0.2-1.3 [facility] WpsqmhpRPGMLBAFYW5121-71-59 00:03:00 Test Item Value Reference Range Interpretation Comments MPV (test code = MPV) 6.7 7.4-10.4 [facility] FyinlkzZLHIHJYBBP4240-45-20 00:03:00 Test Item Value Reference Range Interpretation Comments Segs (test code = Segs) 56.0 45.0-75.0 [facility] [id number] 00:03:00 Test Item Value Reference Range Interpretation Comments AGAP (test code = AGAP) 8.8 10.0-20.0 [facility]viewPptezdgBBFZKJNGVG0866-66-05 00:03:00 Test Item Value Reference Range Interpretation Comments Lymphocytes (test code = Lymphocytes) 36.0 20.0-40.0 [facility]2020-03-06 00:03:00 Test Item Value Reference Range Interpretation Comments B/C Ratio (test code = B/C Ratio) 17 1 6-25 [place] 050390-03-06 00:03:00 Test Item Value Reference Range Interpretation Comments Monocytes (test code = Monocytes) 6.0 2.0-12.0 [facility]2020-03-06 00:03:00 Test Item Value Reference Range Interpretation Comments Globulin (test code = Globulin) 3.5 2.7-4.2 [facility]viewHakzczhNTMHTQPKOS5509-58-40 00:03:00 Test Item Value Reference Range Interpretation Comments Eosinophils (test code = 1.5 See_Comment [A utomated message] The Eosinophils) system which ge nerated this result tra nsmitted reference range : <=4.0. The reference r kvng was not used to int erpret this result as normal/abnormal . [facility]2020-03-06 00:03:00 Test Item Value Reference Range Interpretation Comments A/G Ratio (test code = A/G Ratio) 1.1 1 0.7-1.6 [place] 644980-03-06 00:03:00 Test Item Value Reference Range Interpretation Comments eGFR (test code = eGFR) 128 [facility]viewWaqluneACUFUWDQAB5811-54-64 00:03:00 Test Item Value Reference Range Interpretation Comments Basophils (test code = 0.5 See_Comment [Aut omated message] The Basophils) system which ge nerated this result tra nsmitted reference range : <=1.0. The reference r kvng was not used to int erpret this result as normal/abnormal . [facility]viewPzslwfkJSTGNPARFW3226-33-00 00:03:00 Test Item Value Reference Range Interpretation Comments WBC (test code = WBC) 6.5 3.7-10.4 [facility] LongviewWsgpdbeHBZBAVVKVP7463-22-49 00:03:00 Test Item Value Reference Range Interpretation Comments Neutrophils # (test code = Neutrophils 3.7 1.5-8.1 #) [facility] LongviewAqsjftqEJAACOOXHG4390-11-32 00:03:00 Test Item Value Reference Range Interpretation Comments Lymphocytes # (test code = Lymphocytes 2.3 1.0-5.5 #) [facility] LongviewNftmhyrCQHLQEJFKU1807-55-38 00:03:00 Test Item Value Reference Range Interpretation Comments RBC (test code = RBC) 4.26 4.70-6.10 [facility]viewWjvcelxGLNLTSOKLV1626-18-01 00:03:00 Test Item Value Reference Range Interpretation Comments Hgb (test code = Hgb) 13.0 14.0-18.0 [facility] LongviewNurnbkxWKQTSFGPZF3036-20-82 00:03:00 Test Item Value Reference Range Interpretation Comments Monocytes # (test code 0.4 See_Comment [Aut omated message] The = Monocytes #) system which generated this result tra nsmitted reference range : <=0.8. The reference r kvng was not used to int erpret this result as normal/abnormal . [facility] LongviewVuslhjwEMYFICFAWU0035-17-07 00:03:00 Test Item Value Reference Range Interpretation Comments Hct (test code = Hct) 37.1 42.0-54.0 [facility] LongviewOcxisdrQMYXHDNEGN6879-34-88 00:03:00 Test Item Value Reference Range Interpretation Comments Eosinophils # (test code 0.1 See_Comment [A utomated message] The = Eosinophils #) system whic h generated this result tra nsmitted reference range : <=0.5. The reference r kvng was not used to int erpret this result as normal/abnormal . [facility] LongviewZbgkxfbBMBQEZRJWE9137-04-38 00:03:00 Test Item Value Reference Range Interpretation Comments MCV (test code = MCV) 87.0 80.0-94.0 [place] 050390-03-06 00:03:00 Test Item Value Reference Range Interpretation Comments MCH (test code = MCH) 30.5 pg 27.0-31.0 [facility] LongviewXpzymulXNRYESERBE1559-58-75 00:03:00 Test Item Value Reference Range Interpretation Comments MCHC (test code = MCHC) 35.1 32.0-36.0 [facility] LongviewJhkyvrzKLXKBVZCVM8538-56-99 00:03:00 Test Item Value Reference Range Interpretation Comments RDW (test code = RDW) 13.7 11.5-14.5 [facility] LongviewSzzkayuNNKLOCSCZH5814-35-87 00:03:00 Test Item Value Reference Range Interpretation Comments Platelet (test code = Platelet) 245 133450 [facility] LongviewQmkolrbQONYGHMDYI6291-31-50 00:03:00 Test Item Value Reference Range Interpretation Comments MPV (test code = MPV) 6.7 7.4-10.4 [facility] LongviewBwgzjxdWJVZGHUPZH8148-85-91 00:03:00 Test Item Value Reference Range Interpretation Comments Segs (test code = Segs) 56.0 45.0-75.0 [facility] LongviewBoblxwuZYOMAMGQOO4963-38-99 00:03:00 Test Item Value Reference Range Interpretation Comments Lymphocytes (test code = Lymphocytes) 36.0 20.0-40.0 [facility] LongviewSgfgrbyRONGQTGETV3631-11-89 00:03:00 Test Item Value Reference Range Interpretation Comments Monocytes (test code = Monocytes) 6.0 2.0-12.0 [facility] LongviewBhkgskbWJPTWEMJED0487-93-97 00:03:00 Test Item Value Reference Range Interpretation Comments Eosinophils (test code = 1.5 See_Comment [A utomated message] The Eosinophils) system which ge nerated this result tra nsmitted reference range : <=4.0. The reference r kvng was not used to int erpret this result as normal/abnormal . [facility] LongviewGeetqwmVQQJAFGAHT5488-79-73 00:03:00 Test Item Value Reference Range Interpretation Comments Basophils (test code = 0.5 See_Comment [Aut omated message] The Basophils) system which ge nerated this result tra nsmitted reference range : <=1.0. The reference r kvng was not used to int erpret this result as normal/abnormal . [facility] LongviewCdvfmuyTSGJNFSHMK0132-96-31 00:03:00 Test Item Value Reference Range Interpretation Comments Neutrophils # (test code = Neutrophils 3.7 1.5-8.1 #) [facility] LongviewRibdgivOAWCUFTTJD8798-90-10 00:03:00 Test Item Value Reference Range Interpretation Comments Lymphocytes # (test code = Lymphocytes 2.3 1.0-5.5 #) [facility] LongviewJwqyrrfDPDQOFQBUY9899-94-72 00:03:00 Test Item Value Reference Range Interpretation Comments Monocytes # (test code 0.4 See_Comment [Aut omated message] The = Monocytes #) system which generated this result tra nsmitted reference range : <=0.8. The reference r kvng was not used to int erpret this result as normal/abnormal . [place] 050390-03-06 00:03:00 Test Item Value Reference Range Interpretation Comments Eosinophils # (test code 0.1 See_Comment [A utomated message] The = Eosinophils #) system whic h generated this result tra nsmitted reference range : <=0.5. The reference r kvng was not used to int erpret this result as normal/abnormal . [facility]Cl[facility] [id number] 00:03:00 Test Item Value Reference Range Interpretation Comments Total CK (test code = Total CK) 109 12-191 [facility] LakeXP [facility]imentosB[facility] ACLITDR0441-26-82 00:03:00 Test Item Value Reference Range Interpretation Comments Troponin-I (test code no gt See_Comment [Auto mated message] The = Troponin-I) system which g enerated this result transmit katerin reference range : <=0.40. The reference r kvng was not used to interpr et this result as carlita l/abnormal. [facility] [id number] 00:03:00 Test Item Value Reference Range Interpretation Comments Glucose Lvl (test code = Glucose Lvl) 112 70-99 [facility] [id number] 00:03:00 Test Item Value Reference Range Interpretation Comments BUN (test code = BUN) 13 7-22 [facility] [id number] 00:03:00 Test Item Value Reference Range Interpretation Comments Creatinine Lvl (test code = Creatinine 0.78 0.50-1.40 Lvl) [facility] [id number] 00:03:00 Test Item Value Reference Range Interpretation Comments Sodium Lvl (test code = Sodium Lvl) 141 135-145 [facility] [id number] 00:03:00 Test Item Value Reference Range Interpretation Comments Potassium Lvl (test code = Potassium 3.8 3.5-5.1 Lvl) [facility] [id number] 00:03:00 Test Item Value Reference Range Interpretation Comments Chloride Lvl (test code = Chloride Lvl) 108 95-109 [facility] [id number] 00:03:00 Test Item Value Reference Range Interpretation Comments CO2 (test code = CO2) 28 24-32 [facility] [place] [id number] 00:03:00 Test Item Value Reference Range Interpretation Comments Calcium Lvl (test code = Calcium Lvl) 9.3 8.5-10.5 [facility] [id number] 00:03:00 Test Item Value Reference Range Interpretation Comments Total Protein (test code = Total 7.5 6.4-8.4 Protein) [facility] [id number] 00:03:00 Test Item Value Reference Range Interpretation Comments Albumin Lvl (test code = Albumin Lvl) 4.0 3.5-5.0 [facility] [id number] 00:03:00 Test Item Value Reference Range Interpretation Comments ALT (test code = ALT) 21 See_Comment [Auto mated message] The system which ge nerated this result transmit katerin reference range : <=65. The reference range was not used to interpr et this result as carlita l/abnormal. [facility] [id number] 00:03:00 Test Item Value Reference Range Interpretation Comments AST (test code = AST) 16 See_Comment [Auto mated message] The system which ge nerated this result transmit katerin reference range : <=37. The reference range was not used to interpr et this result as carlita l/abnormal. [facility] [id number] 00:03:00 Test Item Value Reference Range Interpretation Comments Alk Phos (test code = Alk Phos) 96 39-136 [facility] [id number] 00:03:00 Test Item Value Reference Range Interpretation Comments Bili Total (test code = Bili Total) 0.4 0.2-1.3 [facility] [id number] 00:03:00 Test Item Value Reference Range Interpretation Comments AGAP (test code = AGAP) 8.8 10.0-20.0 [facility] [id number] 00:03:00 Test Item Value Reference Range Interpretation Comments B/C Ratio (test code = B/C Ratio) 17 1 6-25 [facility] [id number] 00:03:00 Test Item Value Reference Range Interpretation Comments Globulin (test code = Globulin) 3.5 2.7-4.2 [facility] [id number] 00:03:00 Test Item Value Reference Range Interpretation Comments A/G Ratio (test code = A/G Ratio) 1.1 1 0.7-1.6 [facility]2020-03-06 00:03:00 Test Item Value Reference Range Interpretation Comments eGFR (test code = eGFR) 128 [facility] LakeFdfupnfHUJAWWGTYG0291-82-05 00:03:00 Test Item Value Reference Range Interpretation Comments WBC (test code = WBC) 6.5 3.7-10.4 [facility]gh[facility]whVRTWZYYEZG8770-[facility]:03:00 Test Item Value Reference Range Interpretation Comments RBC (test code = RBC) 4.26 4.70-6.10 [facility] LakeTmjfcsgHKOPLCRVLS7570-23-78 00:03:00 Test Item Value Reference Range Interpretation Comments Hgb (test code = Hgb) 13.0 14.0-18.0 [facility]viewHdazvjrTPPWOTSBLI9348-34-02 00:03:00 Test Item Value Reference Range Interpretation Comments Hct (test code = Hct) 37.1 42.0-54.0 [facility]viewKsrifzzWXBGQXADYA2075-77-48 00:03:00 Test Item Value Reference Range Interpretation Comments MCV (test code = MCV) 87.0 80.0-94.0 [facility]KnqiqkhULTAYBNETX0734-30-46 00:03:00 Test Item Value Reference Range Interpretation Comments MCH (test code = MCH) 30.5 pg 27.0-31.0 [facility] LakeLoivibuONJADWCKTG4868-20-38 00:03:00 Test Item Value Reference Range Interpretation Comments MCHC (test code = MCHC) 35.1 32.0-36.0 [facility] LongviewFhsomwoEMTWUYPXSR3253-28-55 00:03:00 Test Item Value Reference Range Interpretation Comments RDW (test code = RDW) 13.7 11.5-14.5 [facility] LakeZaswdezSPTYXTBQKL0315-50-73 00:03:00 Test Item Value Reference Range Interpretation Comments Platelet (test code = Platelet) 245 133-450 [facility] LakeTwpdyqdHZYFVNSTIO5074-77-84 00:03:00 Test Item Value Reference Range Interpretation Comments MPV (test code = MPV) 6.7 7.4-10.4 [place] 050390-03-06 00:03:00 Test Item Value Reference Range Interpretation Comments Segs (test code = Segs) 56.0 45.0-75.0 [facility] LongviewXfsutfwWDYHTBKFRJ6567-77-33 00:03:00 Test Item Value Reference Range Interpretation Comments Lymphocytes (test code = Lymphocytes) 36.0 20.0-40.0 [facility] HospitalZdwclrfJPDFXRBRVU4156-94-62 00:03:00 Test Item Value Reference Range Interpretation Comments Monocytes (test code = Monocytes) 6.0 2.0-12.0 [facility] HospitalPtceerrLUVTYAHAXB6845-60-49 00:03:00 Test Item Value Reference Range Interpretation Comments Eosinophils (test code = 1.5 See_Comment [A utomated message] The Eosinophils) system which ge nerated this result tra nsmitted reference range : <=4.0. The reference r kvng was not used to int erpret this result as normal/abnormal . [facility] LongviewFylerziNGUWGJEFCK8817-25-45 00:03:00 Test Item Value Reference Range Interpretation Comments Basophils (test code = 0.5 See_Comment [Aut omated message] The Basophils) system which ge nerated this result tra nsmitted reference range : <=1.0. The reference r kvng was not used to int erpret this result as normal/abnormal . [facility] LongviewIamzofmUKQSMLMHNM3073-77-91 00:03:00 Test Item Value Reference Range Interpretation Comments Neutrophils # (test code = Neutrophils 3.7 1.5-8.1 #) [facility]EljwglpVEFUZCGSTW6350-92-00 00:03:00 Test Item Value Reference Range Interpretation Comments Lymphocytes # (test code = Lymphocytes 2.3 1.0-5.5 #) [facility] LongviewAzfvsxhYXHPOIZBJO1563-64-98 00:03:00 Test Item Value Reference Range Interpretation Comments Monocytes # (test code 0.4 See_Comment [Aut omated message] The = Monocytes #) system which generated this result tra nsmitted reference range : <=0.8. The reference r kvng was not used to int erpret this result as normal/abnormal . [facility] LongviewFgijfhsLOCATRBTGF4364-94-56 00:03:00 Test Item Value Reference Range Interpretation Comments Eosinophils # (test code 0.1 See_Comment [A utomated message] The = Eosinophils #) system whic h generated this result tra nsmitted reference range : <=0.5. The reference r kvng was not used to int erpret this result as normal/abnormal . [facility] LakeCARDIAC [id number] 00:03:00 Test Item Value Reference Range Interpretation Comments Total CK (test code = Total CK) 109 12-191 [facility] [facility] [id number] 00:03:00 Test Item Value Reference Range Interpretation Comments Troponin-I (test code no gt See_Comment [Auto mated message] The = Troponin-I) system which g enerated this result transmit katerin reference range : <=0.40. The reference r kvng was not used to interpr et this result as carlita l/abnormal. [facility] [place] [id number] 00:03:00 Test Item Value Reference Range Interpretation Comments Glucose Lvl (test code = Glucose Lvl) 112 70-99 [facility] [place] [id number] 00:03:00 Test Item Value Reference Range Interpretation Comments BUN (test code = BUN) 13 7-22 [facility] [place] [id number] 00:03:00 Test Item Value Reference Range Interpretation Comments Creatinine Lvl (test code = Creatinine 0.78 0.50-1.40 Lvl) [facility] [place] [id number] 00:03:00 Test Item Value Reference Range Interpretation Comments Sodium Lvl (test code = Sodium Lvl) 141 135-145 [facility] [place] [id number] 00:03:00 Test Item Value Reference Range Interpretation Comments Potassium Lvl (test code = Potassium 3.8 3.5-5.1 Lvl) [facility] [place] [id number] 00:03:00 Test Item Value Reference Range Interpretation Comments Chloride Lvl (test code = Chloride Lvl) 108 95-109 [facility] [place] [id number] 00:03:00 Test Item Value Reference Range Interpretation Comments CO2 (test code = CO2) 28 24-32 [facility] [place] [id number] 00:03:00 Test Item Value Reference Range Interpretation Comments Calcium Lvl (test code = Calcium Lvl) 9.3 8.5-10.5 [facility] [place] [id number] 00:03:00 Test Item Value Reference Range Interpretation Comments Total Protein (test code = Total 7.5 6.4-8.4 Protein) [facility] [id number] 00:03:00 Test Item Value Reference Range Interpretation Comments Albumin Lvl (test code = Albumin Lvl) 4.0 3.5-5.0 [employer]2020-03-06 00:03:00 Test Item Value Reference Range Interpretation Comments ALT (test code = ALT) 21 See_Comment [Auto mated message] The system which ge nerated this result transmit katerin reference range : <=65. The reference range was not used to interpr et this result as carlita l/abnormal. [employer]2020-03-06 00:03:00 Test Item Value Reference Range Interpretation Comments AST (test code = AST) 16 See_Comment [Auto mated message] The system which ge nerated this result transmit katerin reference range : <=37. The reference range was not used to interpr et this result as carlita l/abnormal. [employer]2020-03-06 00:03:00 Test Item Value Reference Range Interpretation Comments Alk Phos (test code = Alk Phos) 96 39-136 [facility] [employer]2020-03-06 00:03:00 Test Item Value Reference Range Interpretation Comments Bili Total (test code = Bili Total) 0.4 0.2-1.3 [employer]2020-03-06 00:03:00 Test Item Value Reference Range Interpretation Comments AGAP (test code = AGAP) 8.8 10.0-20.0 [employer]2020-03-06 00:03:00 Test Item Value Reference Range Interpretation Comments B/C Ratio (test code = B/C Ratio) 17 1 6-25 [employer]2020-03-06 00:03:00 Test Item Value Reference Range Interpretation Comments Globulin (test code = Globulin) 3.5 2.7-4.2 Pets[facility]0-03-06 00:03:00 Test Item Value Reference Range Interpretation Comments A/G Ratio (test code = A/G Ratio) 1.1 1 0.7-1.6 Pets[facility]0-03-06 00:03:00 Test Item Value Reference Range Interpretation Comments eGFR (test code = eGFR) 128 [facility] QqxvuakNUMCQNMNZJ7279-24-90 00:03:00 Test Item Value Reference Range Interpretation Comments WBC (test code = WBC) 6.5 3.7-10.4 4C InsightsGxzrcztAPNVWBXOTS0456-50-60 00:03:00 Test Item Value Reference Range Interpretation Comments RBC (test code = RBC) 4.26 4.70-6.10 [facility]WalufzvCOPTFWKKML4168-60-69 00:03:00 Test Item Value Reference Range Interpretation Comments Hgb (test code = Hgb) 13.0 14.0-18.0 [facility]viewJqzvrebPGTFKEVQUA1378-14-29 00:03:00 Test Item Value Reference Range Interpretation Comments Hct (test code = Hct) 37.1 42.0-54.0 [facility] LongviewSxfcefuSSLBIJNFIE0321-32-45 00:03:00 Test Item Value Reference Range Interpretation Comments MCV (test code = MCV) 87.0 80.0-94.0 [facility] LongviewTdbpycuXYOGZMMOMA4328-45-79 00:03:00 Test Item Value Reference Range Interpretation Comments MCH (test code = MCH) 30.5 pg 27.0-31.0 [facility] LongviewRynwehrNPYCHFEWVA6022-20-92 00:03:00 Test Item Value Reference Range Interpretation Comments MCHC (test code = MCHC) 35.1 32.0-36.0 [facility] LongviewNssakzsTEKWOULQUM0623-86-52 00:03:00 Test Item Value Reference Range Interpretation Comments RDW (test code = RDW) 13.7 11.5-14.5 [facility] LongviewAzymprmYNISMRMNQS0556-33-21 00:03:00 Test Item Value Reference Range Interpretation Comments Platelet (test code = Platelet) 245 133-450 [facility] LongviewOpcnfmdLFADLKYKMU6875-15-83 00:03:00 Test Item Value Reference Range Interpretation Comments MPV (test code = MPV) 6.7 7.4-10.4 [facility] LongviewNbrhyivNIMFUQIEII5809-56-47 00:03:00 Test Item Value Reference Range Interpretation Comments Segs (test code = Segs) 56.0 45.0-75.0 [facility] LongviewEoohfzrLNPZIASIIR5977-27-22 00:03:00 Test Item Value Reference Range Interpretation Comments Lymphocytes (test code = Lymphocytes) 36.0 20.0-40.0 [facility] LongviewHmzjwrlCQEVMPXPOV5475-22-31 00:03:00 Test Item Value Reference Range Interpretation Comments Monocytes (test code = Monocytes) 6.0 2.0-12.0 [facility] LongviewLlcqllcBGFYUTAHET2013-65-86 00:03:00 Test Item Value Reference Range Interpretation Comments Eosinophils (test code = 1.5 See_Comment [A utomated message] The Eosinophils) system which ge nerated this result tra nsmitted reference range : <=4.0. The reference r kvng was not used to int erpret this result as normal/abnormal . [facility]VD[facility]263[facility]:03:00 Test Item Value Reference Range Interpretation Comments Basophils (test code = 0.5 See_Comment [Aut omated message] The Basophils) system which ge nerated this result tra nsmitted reference range : <=1.0. The reference r kvng was not used to int erpret this result as normal/abnormal . [facility]viewRsfnjbqQTCPQXDWLP9077-44-74 00:03:00 Test Item Value Reference Range Interpretation Comments Neutrophils # (test code = Neutrophils 3.7 1.5-8.1 #) [facility] LongviewQwnvqpfFNRQGQYLNA8740-76-37 00:03:00 Test Item Value Reference Range Interpretation Comments Lymphocytes # (test code = Lymphocytes 2.3 1.0-5.5 #) [facility] LongviewCaliyhnLJBHSTLKSC0013-86-25 00:03:00 Test Item Value Reference Range Interpretation Comments Monocytes # (test code 0.4 See_Comment [Aut omated message] The = Monocytes #) system which generated this result tra nsmitted reference range : <=0.8. The reference r kvng was not used to int erpret this result as normal/abnormal . [facility]viewPgsduiwXWGTJTRMSF4711-41-35 00:03:00 Test Item Value Reference Range Interpretation Comments Eosinophils # (test code 0.1 See_Comment [A utomated message] The = Eosinophils #) system whic h generated this result tra nsmitted reference range : <=0.5. The reference r kvng was not used to int erpret this result as normal/abnormal . [facility] QYFJFYV6302-58-51 00:03:00 Test Item Value Reference Range Interpretation Comments Total CK (test code = Total CK) 109 12-191 [facility] NEZQMMK6081-89-41 00:03:00 Test Item Value Reference Range Interpretation Comments Troponin-I (test code no gt See_Comment [Auto mated message] The = Troponin-I) system which g enerated this result transmit katerin reference range : <=0.40. The reference r kvng was not used to interpr et this result as carlita l/abnormal. [facility]2020-03-06 00:03:00 Test Item Value Reference Range Interpretation Comments Glucose Lvl (test code = Glucose Lvl) 112 70-99 [place] 644980-03-06 00:03:00 Test Item Value Reference Range Interpretation Comments BUN (test code = BUN) 13 7-22 [place] 644980-03-06 00:03:00 Test Item Value Reference Range Interpretation Comments Creatinine Lvl (test code = Creatinine 0.78 0.50-1.40 Lvl) [facility]2020-03-06 00:03:00 Test Item Value Reference Range Interpretation Comments Sodium Lvl (test code = Sodium Lvl) 141 135-145 [place] 644980-03-06 00:03:00 Test Item Value Reference Range Interpretation Comments Potassium Lvl (test code = Potassium 3.8 3.5-5.1 Lvl) [facility]2020-03-06 00:03:00 Test Item Value Reference Range Interpretation Comments Chloride Lvl (test code = Chloride Lvl) 108 95-109 [place] 644980-03-06 00:03:00 Test Item Value Reference Range Interpretation Comments CO2 (test code = CO2) 28 24-32 [place] 644980-03-06 00:03:00 Test Item Value Reference Range Interpretation Comments Calcium Lvl (test code = Calcium Lvl) 9.3 8.5-10.5 [place] 644980-03-06 00:03:00 Test Item Value Reference Range Interpretation Comments Total Protein (test code = Total 7.5 6.4-8.4 Protein) [facility]2020-03-06 00:03:00 Test Item Value Reference Range Interpretation Comments Albumin Lvl (test code = Albumin Lvl) 4.0 3.5-5.0 [place] 644980-03-06 00:03:00 Test Item Value Reference Range Interpretation Comments ALT (test code = ALT) 21 See_Comment [Auto mated message] The system which ge nerated this result transmit katerin reference range : <=65. The reference range was not used to interpr et this result as carlita l/abnormal. [facility]Websupport [id number] 00:03:00 Test Item Value Reference Range Interpretation Comments AST (test code = AST) 16 See_Comment [Auto mated message] The system which ge nerated this result transmit katerin reference range : <=37. The reference range was not used to interpr et this result as carlita l/abnormal. [facility] [place] [id number] 00:03:00 Test Item Value Reference Range Interpretation Comments Alk Phos (test code = Alk Phos) 96 39-136 [facility] [id number] 00:03:00 Test Item Value Reference Range Interpretation Comments Bili Total (test code = Bili Total) 0.4 0.2-1.3 [facility] [id number] 00:03:00 Test Item Value Reference Range Interpretation Comments AGAP (test code = AGAP) 8.8 10.0-20.0 [facility] [id number] 00:03:00 Test Item Value Reference Range Interpretation Comments B/C Ratio (test code = B/C Ratio) 17 1 6-25 [facility] [id number] 00:03:00 Test Item Value Reference Range Interpretation Comments Globulin (test code = Globulin) 3.5 2.7-4.2 [facility] [id number] 00:03:00 Test Item Value Reference Range Interpretation Comments A/G Ratio (test code = A/G Ratio) 1.1 1 0.7-1.6 [facility] [id number] 00:03:00 Test Item Value Reference Range Interpretation Comments eGFR (test code = eGFR) 128 [facility] LakePplsruoWVTULYFRRY7382-84-09 00:03:00 Test Item Value Reference Range Interpretation Comments WBC (test code = WBC) 6.5 3.7-10.4 [facility] CenterAhordozOSUBRVFCUC6287-32-43 00:03:00 Test Item Value Reference Range Interpretation Comments RBC (test code = RBC) 4.26 4.70-6.10 [facility] CenterJqiytqsRMCKOIUJWS4071-91-04 00:03:00 Test Item Value Reference Range Interpretation Comments Hgb (test code = Hgb) 13.0 14.0-18.0 [facility] CenterObxbuvaHVBDENQWEI8956-83-71 00:03:00 Test Item Value Reference Range Interpretation Comments Hct (test code = Hct) 37.1 42.0-54.0 [facility] CenterMclhmxzPMSOURIKWI8809-19-36 00:03:00 Test Item Value Reference Range Interpretation Comments MCV (test code = MCV) 87.0 80.0-94.0 [facility]viewQzvhiwgONZAPGRZHT0449-78-36 00:03:00 Test Item Value Reference Range Interpretation Comments MCH (test code = MCH) 30.5 pg 27.0-31.0 [facility] LongviewBukdhroMJRJMTJRGC8595-36-04 00:03:00 Test Item Value Reference Range Interpretation Comments MCHC (test code = MCHC) 35.1 32.0-36.0 [facility] LongviewTghdaldVTTFAAFVYE6077-55-67 00:03:00 Test Item Value Reference Range Interpretation Comments RDW (test code = RDW) 13.7 11.5-14.5 [facility] LongviewTdxuiwuURBTWMKWVI1142-84-38 00:03:00 Test Item Value Reference Range Interpretation Comments Platelet (test code = Platelet) 245 133-450 [facility] LongviewHvjwaorMRPTIGXRGD9574-17-93 00:03:00 Test Item Value Reference Range Interpretation Comments MPV (test code = MPV) 6.7 7.4-10.4 [facility] LongviewTjdiytbHPHBXNTOCJ8216-82-37 00:03:00 Test Item Value Reference Range Interpretation Comments Segs (test code = Segs) 56.0 45.0-75.0 [facility] LongviewMbovxitCOGOQUWWUS3135-73-62 00:03:00 Test Item Value Reference Range Interpretation Comments Lymphocytes (test code = Lymphocytes) 36.0 20.0-40.0 [facility] LongviewRnqpnesBNTAFEJZTL4296-51-74 00:03:00 Test Item Value Reference Range Interpretation Comments Monocytes (test code = Monocytes) 6.0 2.0-12.0 [facility] LongviewTqhopbdHKNJZBJVLG1143-87-65 00:03:00 Test Item Value Reference Range Interpretation Comments Eosinophils (test code = 1.5 See_Comment [A utomated message] The Eosinophils) system which ge nerated this result tra nsmitted reference range : <=4.0. The reference r kvng was not used to int erpret this result as normal/abnormal . [facility] LongviewTsubxxiRXNDAZUHRL2766-51-41 00:03:00 Test Item Value Reference Range Interpretation Comments Basophils (test code = 0.5 See_Comment [Aut omated message] The Basophils) system which ge nerated this result tra nsmitted reference range : <=1.0. The reference r kvng was not used to int erpret this result as normal/abnormal . [facility] LakeTuyftngMZUZXDYHUL0464-97-94 00:03:00 Test Item Value Reference Range Interpretation Comments Neutrophils # (test code = Neutrophils 3.7 1.5-8.1 #) [facility] LongviewKjbkmbfDJJLXDTSHA2684-41-08 00:03:00 Test Item Value Reference Range Interpretation Comments Lymphocytes # (test code = Lymphocytes 2.3 1.0-5.5 #) [facility] LongviewHfreqlaGQEXGEJDZD9567-92-47 00:03:00 Test Item Value Reference Range Interpretation Comments Monocytes # (test code 0.4 See_Comment [Aut omated message] The = Monocytes #) system which generated this result tra nsmitted reference range : <=0.8. The reference r kvng was not used to int erpret this result as normal/abnormal . [facility] LongviewWslrzvoEUTPGUHSVE3548-45-67 00:03:00 Test Item Value Reference Range Interpretation Comments Eosinophils # (test code 0.1 See_Comment [A utomated message] The = Eosinophils #) system whic h generated this result tra nsmitted reference range : <=0.5. The reference r kvng was not used to int erpret this result as normal/abnormal . [facility] RCTJACZ2121-02-70 00:03:00 Test Item Value Reference Range Interpretation Comments Total CK (test code = Total CK) 109 12-191 [facility] [id number] 00:03:00 Test Item Value Reference Range Interpretation Comments Troponin-I (test code no gt See_Comment [Auto mated message] The = Troponin-I) system which g enerated this result transmit katerin reference range : <=0.40. The reference r kvng was not used to interpr et this result as carlita l/abnormal. [facility] CenterClarity Payment SolutionsPVKLW0501-50-63 00:03:00 Test Item Value Reference Range Interpretation Comments Glucose Lvl (test code = Glucose Lvl) 112 70-99 [facility] [id number] 00:03:00 Test Item Value Reference Range Interpretation Comments BUN (test code = BUN) 13 7-22 [facility] CenterClarity Payment [id number] 00:03:00 Test Item Value Reference Range Interpretation Comments Creatinine Lvl (test code = Creatinine 0.78 0.50-1.40 Lvl) [facility] CenterDigital RoyaltyUNC HOSPITALS HILLSB[facility]OUGH CAMPUSOMWYM7805-60-06 00:03:00 Test Item Value Reference Range Interpretation Comments Sodium Lvl (test code = Sodium Lvl) 141 135-145 [facility]2020-03-06 00:03:00 Test Item Value Reference Range Interpretation Comments Potassium Lvl (test code = Potassium 3.8 3.5-5.1 Lvl) [facility]2020-03-06 00:03:00 Test Item Value Reference Range Interpretation Comments Chloride Lvl (test code = Chloride Lvl) 108 95-109 [facility] [id number] 00:03:00 Test Item Value Reference Range Interpretation Comments CO2 (test code = CO2) 28 24-32 [facility] [id number] 00:03:00 Test Item Value Reference Range Interpretation Comments Calcium Lvl (test code = Calcium Lvl) 9.3 8.5-10.5 [facility] [id number] 00:03:00 Test Item Value Reference Range Interpretation Comments Total Protein (test code = Total 7.5 6.4-8.4 Protein) [facility]2020-03-06 00:03:00 Test Item Value Reference Range Interpretation Comments Albumin Lvl (test code = Albumin Lvl) 4.0 3.5-5.0 [facility] [id number] 00:03:00 Test Item Value Reference Range Interpretation Comments ALT (test code = ALT) 21 See_Comment [Auto mated message] The system which ge nerated this result transmit katerin reference range : <=65. The reference range was not used to interpr et this result as carlita l/abnormal. [facility] [id number] 00:03:00 Test Item Value Reference Range Interpretation Comments AST (test code = AST) 16 See_Comment [Auto mated message] The system which ge nerated this result transmit katerin reference range : <=37. The reference range was not used to interpr et this result as carlita l/abnormal. [facility] LakeWebsupport [id number] 00:03:00 Test Item Value Reference Range Interpretation Comments Alk Phos (test code = Alk Phos) 96 39-136 [facility] [id number] 00:03:00 Test Item Value Reference Range Interpretation Comments Bili Total (test code = Bili Total) 0.4 0.2-1.3 [facility] [id number] 00:03:00 Test Item Value Reference Range Interpretation Comments AGAP (test code = AGAP) 8.8 10.0-20.0 [facility] [id number] 00:03:00 Test Item Value Reference Range Interpretation Comments B/C Ratio (test code = B/C Ratio) 17 1 6-25 [facility] [id number] 00:03:00 Test Item Value Reference Range Interpretation Comments Globulin (test code = Globulin) 3.5 2.7-4.2 [facility] CenterannOH[facility] [id number] 00:03:00 Test Item Value Reference Range Interpretation Comments A/G Ratio (test code = A/G Ratio) 1.1 1 0.7-1.6 [facility] [id number] 00:03:00 Test Item Value Reference Range Interpretation Comments eGFR (test code = eGFR) 128 [facility] LakeOnkojwcAIODGEIBAO0130-39-75 00:03:00 Test Item Value Reference Range Interpretation Comments WBC (test code = WBC) 6.5 3.7-10.4 [facility] LakeLgvmchpKKTLBDSXEW1273-51-03 00:03:00 Test Item Value Reference Range Interpretation Comments RBC (test code = RBC) 4.26 4.70-6.10 [facility]ZwgpoxpYGRGQLEKZM3687-17-01 00:03:00 Test Item Value Reference Range Interpretation Comments Hgb (test code = Hgb) 13.0 14.0-18.0 [facility] LakeYaesgyvQYUNISRLJA7207-08-56 00:03:00 Test Item Value Reference Range Interpretation Comments Hct (test code = Hct) 37.1 42.0-54.0 [facility] LakeKoneqnfRWESEAFXGR0917-57-28 00:03:00 Test Item Value Reference Range Interpretation Comments MCV (test code = MCV) 87.0 80.0-94.0 [facility] LakeEkmirgfDYWPSZNFEC0293-83-75 00:03:00 Test Item Value Reference Range Interpretation Comments MCH (test code = MCH) 30.5 pg 27.0-31.0 [facility] LakeHaxrhvbLMRQBZRUEE2655-35-00 00:03:00 Test Item Value Reference Range Interpretation Comments MCHC (test code = MCHC) 35.1 32.0-36.0 [facility] LongviewKhemditIIMQXMSUUM1791-43-73 00:03:00 Test Item Value Reference Range Interpretation Comments RDW (test code = RDW) 13.7 11.5-14.5 [facility] LongviewCsjeuwrYYIFZNDHSN3171-53-33 00:03:00 Test Item Value Reference Range Interpretation Comments Platelet (test code = Platelet) 245 133-450 [facility] LongviewNcsoutyGPVCMHUDOO5450-12-36 00:03:00 Test Item Value Reference Range Interpretation Comments MPV (test code = MPV) 6.7 7.4-10.4 [facility] LongviewBtdouphSZBQIPZNAG1079-46-26 00:03:00 Test Item Value Reference Range Interpretation Comments Segs (test code = Segs) 56.0 45.0-75.0 [facility] LongviewMnweozuSJANKTFBMH2033-61-58 00:03:00 Test Item Value Reference Range Interpretation Comments Lymphocytes (test code = Lymphocytes) 36.0 20.0-40.0 [facility] LongviewNdxbhlrVJWSWRUVHZ3138-96-44 00:03:00 Test Item Value Reference Range Interpretation Comments Monocytes (test code = Monocytes) 6.0 2.0-12.0 [facility] LongviewUrlxfosYPSIBSHJQB2416-02-47 00:03:00 Test Item Value Reference Range Interpretation Comments Eosinophils (test code = 1.5 See_Comment [A utomated message] The Eosinophils) system which nerated this result tra nsmitted reference range : <=4.0. The reference r kvng was not used to int erpret this result as normal/abnormal . [facility] LongviewHiwodbeDYPXFSVUCZ5337-48-05 00:03:00 Test Item Value Reference Range Interpretation Comments Basophils (test code = 0.5 See_Comment [Aut omated message] The Basophils) system which ge nerated this result tra nsmitted reference range : <=1.0. The reference r kvng was not used to int erpret this result as normal/abnormal . [facility] LongviewUimhlmhNFBSUQGEXI3781-91-07 00:03:00 Test Item Value Reference Range Interpretation Comments Neutrophils # (test code = Neutrophils 3.7 1.5-8.1 #) [facility] LongviewLtbjaizIIAQPREHBA4981-42-27 00:03:00 Test Item Value Reference Range Interpretation Comments Lymphocytes # (test code = Lymphocytes 2.3 1.0-5.5 #) [place] 050390-03-06 00:03:00 Test Item Value Reference Range Interpretation Comments Monocytes # (test code 0.4 See_Comment [Aut omated message] The = Monocytes #) system which generated this result tra nsmitted reference range : <=0.8. The reference r kvng was not used to int erpret this result as normal/abnormal . [facility] LakeFlxrgswARXOBWEMTG9702-27-04 00:03:00 Test Item Value Reference Range Interpretation Comments Eosinophils # (test code 0.1 See_Comment [A utomated message] The = Eosinophils #) system whic h generated this result tra nsmitted reference range : <=0.5. The reference r kvng was not used to int erpret this result as normal/abnormal . [facility] [id number] 00:03:00 Test Item Value Reference Range Interpretation Comments A/G Ratio (test code = A/G Ratio) 1.1 1 0.7-1.6 [facility] [id number] 00:03:00 Test Item Value Reference Range Interpretation Comments eGFR (test code = eGFR) 128 [facility] [id number] 00:03:00 Test Item Value Reference Range Interpretation Comments A/G Ratio (test code = A/G Ratio) 1.1 1 0.7-1.6 [facility] CenterXawfahxAGKOVMJXHU8189-67-02 00:03:00 Test Item Value Reference Range Interpretation Comments WBC (test code = WBC) 6.5 3.7-10.4 [facility] CenterOnkyjxoDYPYNXLCYK5412-99-66 00:03:00 Test Item Value Reference Range Interpretation Comments RBC (test code = RBC) 4.26 4.70-6.10 [facility] [id number] 00:03:00 Test Item Value Reference Range Interpretation Comments eGFR (test code = eGFR) 128 [facility] CenterQldscplZIJYXDTNUC8144-31-80 00:03:00 Test Item Value Reference Range Interpretation Comments Hgb (test code = Hgb) 13.0 14.0-18.0 [facility] CenterHucvgkuROAMBXEWII5286-65-35 00:03:00 Test Item Value Reference Range Interpretation Comments WBC (test code = WBC) 6.5 3.7-10.4 [facility] CenterUxxknisSPSHYMHNZJ1770-59-16 00:03:00 Test Item Value Reference Range Interpretation Comments Hct (test code = Hct) 37.1 42.0-54.0 [facility]XcwqxmvAYWTKBWTXN8261-44-16 00:03:00 Test Item Value Reference Range Interpretation Comments RBC (test code = RBC) 4.26 4.70-6.10 [facility]viewSayvuqeOQSWZZEHNC4346-59-45 00:03:00 Test Item Value Reference Range Interpretation Comments MCV (test code = MCV) 87.0 80.0-94.0 [facility] LongviewLphzijlTSKOSRHJFQ3686-25-45 00:03:00 Test Item Value Reference Range Interpretation Comments Hgb (test code = Hgb) 13.0 14.0-18.0 [facility]viewTiyeigjYPNGQGBHVL3950-26-68 00:03:00 Test Item Value Reference Range Interpretation Comments MCH (test code = MCH) 30.5 pg 27.0-31.0 [facility]viewHkzqqwvCHISEQDCIQ7517-62-74 00:03:00 Test Item Value Reference Range Interpretation Comments Hct (test code = Hct) 37.1 42.0-54.0 [facility]viewEjuprsgQOCHOVVGZQ7201-32-83 00:03:00 Test Item Value Reference Range Interpretation Comments MCHC (test code = MCHC) 35.1 32.0-36.0 [facility]viewAwotuotLQGAESLCMG1889-00-08 00:03:00 Test Item Value Reference Range Interpretation Comments MCV (test code = MCV) 87.0 80.0-94.0 [facility] LongviewRtkipbpDQJYJIAOVJ3647-28-19 00:03:00 Test Item Value Reference Range Interpretation Comments RDW (test code = RDW) 13.7 11.5-14.5 [facility] LongviewRssjwksMNQCLBWNLC7545-79-43 00:03:00 Test Item Value Reference Range Interpretation Comments Platelet (test code = Platelet) 245 133-450 [facility] LongviewUjxztngMJHJWRSGSZ4110-66-78 00:03:00 Test Item Value Reference Range Interpretation Comments MCH (test code = MCH) 30.5 pg 27.0-31.0 [facility]viewYjeithvIOGTDNPDXV8101-38-27 00:03:00 Test Item Value Reference Range Interpretation Comments MPV (test code = MPV) 6.7 7.4-10.4 [facility] LongviewKdpveliWOGQZTWLVI1277-33-78 00:03:00 Test Item Value Reference Range Interpretation Comments MCHC (test code = MCHC) 35.1 32.0-36.0 [place] 050390-03-06 00:03:00 Test Item Value Reference Range Interpretation Comments Segs (test code = Segs) 56.0 45.0-75.0 [facility]viewKwioluzQJDQHIYJWA1525-83-19 00:03:00 Test Item Value Reference Range Interpretation Comments RDW (test code = RDW) 13.7 11.5-14.5 [facility]viewUjxglghSFBWFUPLVY3679-65-40 00:03:00 Test Item Value Reference Range Interpretation Comments Lymphocytes (test code = Lymphocytes) 36.0 20.0-40.0 [facility]viewXcfhtybVJWEAVOHUY8023-73-61 00:03:00 Test Item Value Reference Range Interpretation Comments Platelet (test code = Platelet) 245 133-450 [facility] LongviewZvkhrgcGMXPDCOVXV8431-98-65 00:03:00 Test Item Value Reference Range Interpretation Comments Monocytes (test code = Monocytes) 6.0 2.0-12.0 [facility] LongviewLbpsgtsVRUMOEVIJY8668-30-27 00:03:00 Test Item Value Reference Range Interpretation Comments MPV (test code = MPV) 6.7 7.4-10.4 [place] 050390-03-06 00:03:00 Test Item Value Reference Range Interpretation Comments Eosinophils (test code = 1.5 See_Comment [A utomated message] The Eosinophils) system which ge nerated this result tra nsmitted reference range : <=4.0. The reference r kvng was not used to int erpret this result as normal/abnormal . [facility]viewQubeavrGHYPQLPXSE9680-83-22 00:03:00 Test Item Value Reference Range Interpretation Comments Segs (test code = Segs) 56.0 45.0-75.0 [facility]viewLasrdzdIDXFXELQRA8092-30-70 00:03:00 Test Item Value Reference Range Interpretation Comments Basophils (test code = 0.5 See_Comment [Aut omated message] The Basophils) system which ge nerated this result tra nsmitted reference range : <=1.0. The reference r kvng was not used to int erpret this result as normal/abnormal . [facility]viewYzmuivcWLCVTIIWMM9313-19-02 00:03:00 Test Item Value Reference Range Interpretation Comments Lymphocytes (test code = Lymphocytes) 36.0 20.0-40.0 [facility] LongviewSdlhtmhHKIGIQZKZU6433-46-44 00:03:00 Test Item Value Reference Range Interpretation Comments Neutrophils # (test code = Neutrophils 3.7 1.5-8.1 #) [facility]viewWntvwtuWIXDDHDRGJ9312-42-36 00:03:00 Test Item Value Reference Range Interpretation Comments Monocytes (test code = Monocytes) 6.0 2.0-12.0 [facility]viewUcrpubzGFLBGMDIJP5077-80-98 00:03:00 Test Item Value Reference Range Interpretation Comments Lymphocytes # (test code = Lymphocytes 2.3 1.0-5.5 #) [facility] LongviewRrcuryzKXQARMBYJZ5794-22-39 00:03:00 Test Item Value Reference Range Interpretation Comments Monocytes # (test code 0.4 See_Comment [Aut omated message] The = Monocytes #) system which generated this result tra nsmitted reference range : <=0.8. The reference r kvng was not used to int erpret this result as normal/abnormal . [facility] LongviewVurzgdsCMOVCJBRFN9169-87-60 00:03:00 Test Item Value Reference Range Interpretation Comments Eosinophils (test code = 1.5 See_Comment [A utomated message] The Eosinophils) system which ge nerated this result tra nsmitted reference range : <=4.0. The reference r kvng was not used to int erpret this result as normal/abnormal . [facility]viewYvtwvoqQDTVCDEAGI7565-13-95 00:03:00 Test Item Value Reference Range Interpretation Comments Eosinophils # (test code 0.1 See_Comment [A utomated message] The = Eosinophils #) system whic h generated this result tra nsmitted reference range : <=0.5. The reference r kvng was not used to int erpret this result as normal/abnormal . [facility]viewLzqzbnuJDWMFFMIUP7027-31-94 00:03:00 Test Item Value Reference Range Interpretation Comments Basophils (test code = 0.5 See_Comment [Aut omated message] The Basophils) system which ge nerated this result tra nsmitted reference range : <=1.0. The reference r kvng was not used to int erpret this result as normal/abnormal . [facility] [id number] 00:03:00 Test Item Value Reference Range Interpretation Comments Total CK (test code = Total CK) 109 12-191 [facility] OINYBGO2929-21-12 00:03:00 Test Item Value Reference Range Interpretation Comments Troponin-I (test code no gt See_Comment [Auto mated message] The = Troponin-I) system which g enerated this result transmit katerin reference range : <=0.40. The reference r kvng was not used to interpr et this result as carlita l/abnormal. [facility] LongviewEmrysuhFCMPBWJTVW6520-78-78 00:03:00 Test Item Value Reference Range Interpretation Comments Neutrophils # (test code = Neutrophils 3.7 1.5-8.1 #) [facility] LakeWebsupport [id number] 00:03:00 Test Item Value Reference Range Interpretation Comments Glucose Lvl (test code = Glucose Lvl) 112 70-99 [facility]rDHNGZSANDU2375-[facility]-66 00:03:00 Test Item Value Reference Range Interpretation Comments Lymphocytes # (test code = Lymphocytes 2.3 1.0-5.5 #) [facility]2020-03-06 00:03:00 Test Item Value Reference Range Interpretation Comments BUN (test code = BUN) 13 7-22 [facility]HavywekVAKHXIMQKB9324-30-50 00:03:00 Test Item Value Reference Range Interpretation Comments Monocytes # (test code 0.4 See_Comment [Aut omated message] The = Monocytes #) system which generated this result tra nsmitted reference range : <=0.8. The reference r kvng was not used to int erpret this result as normal/abnormal . [facility] LakeWebsupport [id number] 00:03:00 Test Item Value Reference Range Interpretation Comments Creatinine Lvl (test code = Creatinine 0.78 0.50-1.40 Lvl) [facility]viewYrvhodePPDGYTDWKY6963-87-48 00:03:00 Test Item Value Reference Range Interpretation Comments Eosinophils # (test code 0.1 See_Comment [A utomated message] The = Eosinophils #) system whic h generated this result tra nsmitted reference range : <=0.5. The reference r kvng was not used to int erpret this result as normal/abnormal . [facility] [id number] 00:03:00 Test Item Value Reference Range Interpretation Comments Sodium Lvl (test code = Sodium Lvl) 141 135-145 [facility] LakeCARDIAC [id number] 00:03:00 Test Item Value Reference Range Interpretation Comments Total CK (test code = Total CK) 109 12-191 [facility] [place] [id number] 00:03:00 Test Item Value Reference Range Interpretation Comments Potassium Lvl (test code = Potassium 3.8 3.5-5.1 Lvl) [facility] CenterDigital RoyaltyCARDIAC [id number] 00:03:00 Test Item Value Reference Range Interpretation Comments Troponin-I (test code no gt See_Comment [Auto mated message] The = Troponin-I) system which g enerated this result transmit katerin reference range : <=0.40. The reference r kvng was not used to interpr et this result as carlita l/abnormal. [facility] [place] [id number] 00:03:00 Test Item Value Reference Range Interpretation Comments Chloride Lvl (test code = Chloride Lvl) 108 95-109 [facility] [place] [id number] 00:03:00 Test Item Value Reference Range Interpretation Comments Glucose Lvl (test code = Glucose Lvl) 112 70-99 [facility] [place] [id number] 00:03:00 Test Item Value Reference Range Interpretation Comments CO2 (test code = CO2) 28 24-32 [facility] [place] [id number] 00:03:00 Test Item Value Reference Range Interpretation Comments Calcium Lvl (test code = Calcium Lvl) 9.3 8.5-10.5 [facility] [place] [id number] 00:03:00 Test Item Value Reference Range Interpretation Comments BUN (test code = BUN) 13 7-22 [facility] [id number] 00:03:00 Test Item Value Reference Range Interpretation Comments Total Protein (test code = Total 7.5 6.4-8.4 Protein) [facility] [place] [id number] 00:03:00 Test Item Value Reference Range Interpretation Comments Creatinine Lvl (test code = Creatinine 0.78 0.50-1.40 Lvl) [facility] [place] [id number] 00:03:00 Test Item Value Reference Range Interpretation Comments Albumin Lvl (test code = Albumin Lvl) 4.0 3.5-5.0 [facility] [place] [id number] 00:03:00 Test Item Value Reference Range Interpretation Comments Sodium Lvl (test code = Sodium Lvl) 141 135-145 [facility] [place] [id number] 00:03:00 Test Item Value Reference Range Interpretation Comments ALT (test code = ALT) 21 See_Comment [Auto mated message] The system which ge nerated this result transmit katerin reference range : <=65. The reference range was not used to interpr et this result as carlita l/abnormal. [facility] [place] [id number] 00:03:00 Test Item Value Reference Range Interpretation Comments Potassium Lvl (test code = Potassium 3.8 3.5-5.1 Lvl) [facility]2020-03-06 00:03:00 Test Item Value Reference Range Interpretation Comments AST (test code = AST) 16 See_Comment [Auto mated message] The system which ge nerated this result transmit katerin reference range : <=37. The reference range was not used to interpr et this result as carlita l/abnormal. [facility] [place] [id number] 00:03:00 Test Item Value Reference Range Interpretation Comments Chloride Lvl (test code = Chloride Lvl) 108 95-109 [facility]2020-03-06 00:03:00 Test Item Value Reference Range Interpretation Comments Alk Phos (test code = Alk Phos) 96 39-136 [facility]2020-03-06 00:03:00 Test Item Value Reference Range Interpretation Comments CO2 (test code = CO2) 28 24-32 [facility]2020-03-06 00:03:00 Test Item Value Reference Range Interpretation Comments Bili Total (test code = Bili Total) 0.4 0.2-1.3 [facility]2020-03-06 00:03:00 Test Item Value Reference Range Interpretation Comments Calcium Lvl (test code = Calcium Lvl) 9.3 8.5-10.5 [facility]2020-03-06 00:03:00 Test Item Value Reference Range Interpretation Comments AGAP (test code = AGAP) 8.8 10.0-20.0 [facility]2020-03-06 00:03:00 Test Item Value Reference Range Interpretation Comments Total Protein (test code = Total 7.5 6.4-8.4 Protein) [facility]2020-03-06 00:03:00 Test Item Value Reference Range Interpretation Comments B/C Ratio (test code = B/C Ratio) 17 1 6-25 [employer] [id number] 00:03:00 Test Item Value Reference Range Interpretation Comments Albumin Lvl (test code = Albumin Lvl) 4.0 3.5-5.0 [facility] [id number] 00:03:00 Test Item Value Reference Range Interpretation Comments Globulin (test code = Globulin) 3.5 2.7-4.2 [employer] [id number] 00:03:00 Test Item Value Reference Range Interpretation Comments ALT (test code = ALT) 21 See_Comment [Auto mated message] The system which ge nerated this result transmit katerin reference range : <=65. The reference range was not used to interpr et this result as carlita l/abnormal. [employer] [id number] 00:03:00 Test Item Value Reference Range Interpretation Comments AST (test code = AST) 16 See_Comment [Auto mated message] The system which ge nerated this result transmit katerin reference range : <=37. The reference range was not used to interpr et this result as carlita l/abnormal. [employer] [id number] 00:03:00 Test Item Value Reference Range Interpretation Comments Alk Phos (test code = Alk Phos) 96 39-136 [employer] [id number] 00:03:00 Test Item Value Reference Range Interpretation Comments Bili Total (test code = Bili Total) 0.4 0.2-1.3 [employer] [id number] 00:03:00 Test Item Value Reference Range Interpretation Comments AGAP (test code = AGAP) 8.8 10.0-20.0 [employer] [id number] 00:03:00 Test Item Value Reference Range Interpretation Comments B/C Ratio (test code = B/C Ratio) 17 1 6-25 [employer] [id number] 00:03:00 Test Item Value Reference Range Interpretation Comments Globulin (test code = Globulin) 3.5 2.7-4.2 [employer] [id number] 00:03:00 Test Item Value Reference Range Interpretation Comments Total CK (test code = Total CK) 109 12-191 [employer] [id number] 00:03:00 Test Item Value Reference Range Interpretation Comments Troponin-I (test code no gt See_Comment [Auto mated message] The = Troponin-I) system which g enerated this result transmit katerin reference range : <=0.40. The reference r kvng was not used to interpr et this result as carlita l/abnormal. [facility] [id number] 00:03:00 Test Item Value Reference Range Interpretation Comments Glucose Lvl (test code = Glucose Lvl) 112 70-99 [facility] [id number] 00:03:00 Test Item Value Reference Range Interpretation Comments BUN (test code = BUN) 13 7-22 [facility] [id number] 00:03:00 Test Item Value Reference Range Interpretation Comments Creatinine Lvl (test code = Creatinine 0.78 0.50-1.40 Lvl) [facility] [id number] 00:03:00 Test Item Value Reference Range Interpretation Comments Sodium Lvl (test code = Sodium Lvl) 141 135-145 [facility] [id number] 00:03:00 Test Item Value Reference Range Interpretation Comments Potassium Lvl (test code = Potassium 3.8 3.5-5.1 Lvl) [facility] [id number] 00:03:00 Test Item Value Reference Range Interpretation Comments Chloride Lvl (test code = Chloride Lvl) 108 95-109 [facility] [id number] 00:03:00 Test Item Value Reference Range Interpretation Comments CO2 (test code = CO2) 28 24-32 [facility] [id number] 00:03:00 Test Item Value Reference Range Interpretation Comments Calcium Lvl (test code = Calcium Lvl) 9.3 8.5-10.5 [facility] [id number] 00:03:00 Test Item Value Reference Range Interpretation Comments Total Protein (test code = Total 7.5 6.4-8.4 Protein) [facility] [id number] 00:03:00 Test Item Value Reference Range Interpretation Comments Albumin Lvl (test code = Albumin Lvl) 4.0 3.5-5.0 [facility] [id number] 00:03:00 Test Item Value Reference Range Interpretation Comments ALT (test code = ALT) 21 See_Comment [Auto mated message] The system which ge nerated this result transmit katerin reference range : <=65. The reference range was not used to interpr et this result as carlita l/abnormal. [employer]2020-03-06 00:03:00 Test Item Value Reference Range Interpretation Comments AST (test code = AST) 16 See_Comment [Auto mated message] The system which ge nerated this result transmit katerin reference range : <=37. The reference range was not used to interpr et this result as carlita l/abnormal. [facility] [place] [id number] 00:03:00 Test Item Value Reference Range Interpretation Comments Alk Phos (test code = Alk Phos) 96 39-136 [facility] [employer]2020-03-06 00:03:00 Test Item Value Reference Range Interpretation Comments Bili Total (test code = Bili Total) 0.4 0.2-1.3 [facility]2020-03-06 00:03:00 Test Item Value Reference Range Interpretation Comments AGAP (test code = AGAP) 8.8 10.0-20.0 [facility]2020-03-06 00:03:00 Test Item Value Reference Range Interpretation Comments B/C Ratio (test code = B/C Ratio) 17 1 6-25 [facility]2020-03-06 00:03:00 Test Item Value Reference Range Interpretation Comments Globulin (test code = Globulin) 3.5 2.7-4.2 [facility]2020-03-06 00:03:00 Test Item Value Reference Range Interpretation Comments A/G Ratio (test code = A/G Ratio) 1.1 1 0.7-1.6 [facility]2020-03-06 00:03:00 Test Item Value Reference Range Interpretation Comments eGFR (test code = eGFR) 128 [facility] SgicvwaYADXSMZEGI6279-45-74 00:03:00 Test Item Value Reference Range Interpretation Comments WBC (test code = WBC) 6.5 3.7-10.4 [facility] WmizippIMZPIHFVAH2351-91-36 00:03:00 Test Item Value Reference Range Interpretation Comments RBC (test code = RBC) 4.26 4.70-6.10 [facility] RclvgnwXBFJHFGMWT5880-79-98 00:03:00 Test Item Value Reference Range Interpretation Comments Hgb (test code = Hgb) 13.0 14.0-18.0 [facility]viewTyxxfvgZHWDQQLVDQ9957-34-56 00:03:00 Test Item Value Reference Range Interpretation Comments Hct (test code = Hct) 37.1 42.0-54.0 [facility] LongviewBirqpdzFCUHQBDHML2722-29-94 00:03:00 Test Item Value Reference Range Interpretation Comments MCV (test code = MCV) 87.0 80.0-94.0 [facility] LongviewUstemtaTAGUHWBUDY6424-11-10 00:03:00 Test Item Value Reference Range Interpretation Comments MCH (test code = MCH) 30.5 pg 27.0-31.0 [facility] LongviewIobwtymSOYKOCIWXD7510-80-41 00:03:00 Test Item Value Reference Range Interpretation Comments MCHC (test code = MCHC) 35.1 32.0-36.0 [facility]viewApdxpuzNYHIKDODZD5548-56-42 00:03:00 Test Item Value Reference Range Interpretation Comments RDW (test code = RDW) 13.7 11.5-14.5 [facility] LongviewChbzvzvUPNFVTCSZO9458-62-69 00:03:00 Test Item Value Reference Range Interpretation Comments Platelet (test code = Platelet) 245 133-450 [facility] LongviewAkoasrkZDBJMOMNEX5829-59-70 00:03:00 Test Item Value Reference Range Interpretation Comments MPV (test code = MPV) 6.7 7.4-10.4 [place] [id number] 00:03:00 Test Item Value Reference Range Interpretation Comments Segs (test code = Segs) 56.0 45.0-75.0 [facility] LongviewVxepviyKSHONCHEJZ2678-42-59 00:03:00 Test Item Value Reference Range Interpretation Comments Lymphocytes (test code = Lymphocytes) 36.0 20.0-40.0 [facility] LongviewNpylkxkXSBKBNASPM2596-98-10 00:03:00 Test Item Value Reference Range Interpretation Comments Monocytes (test code = Monocytes) 6.0 2.0-12.0 [facility] LongviewGvndooxVGXNBKURTG1099-32-74 00:03:00 Test Item Value Reference Range Interpretation Comments Eosinophils (test code = 1.5 See_Comment [A utomated message] The Eosinophils) system which ge nerated this result tra nsmitted reference range : <=4.0. The reference r kvng was not used to int erpret this result as normal/abnormal . [facility]fmzloaZGWPISPQEE3885-[facility] 00:03:00 Test Item Value Reference Range Interpretation Comments Basophils (test code = 0.5 See_Comment [Aut omated message] The Basophils) system which ge nerated this result tra nsmitted reference range : <=1.0. The reference r kvng was not used to int erpret this result as normal/abnormal . [facility] LongviewCdgdrnsKSVHUHEZKQ5819-28-70 00:03:00 Test Item Value Reference Range Interpretation Comments Neutrophils # (test code = Neutrophils 3.7 1.5-8.1 #) [facility] LongviewJztptjuGQCGIXYEEH8213-67-60 00:03:00 Test Item Value Reference Range Interpretation Comments Lymphocytes # (test code = Lymphocytes 2.3 1.0-5.5 #) [facility] LongviewXbzmvzxOIZPBMXICW6277-35-20 00:03:00 Test Item Value Reference Range Interpretation Comments Monocytes # (test code 0.4 See_Comment [Aut omated message] The = Monocytes #) system which generated this result tra nsmitted reference range : <=0.8. The reference r knvg was not used to int erpret this result as normal/abnormal . [facility] LongviewJbghbewTFELHUJVXQ6857-72-78 00:03:00 Test Item Value Reference Range Interpretation Comments Eosinophils # (test code 0.1 See_Comment [A utomated message] The = Eosinophils #) system whic h generated this result tra nsmitted reference range : <=0.5. The reference r kvng was not used to int erpret this result as normal/abnormal . [facility] [place] [id number] 00:03:00 Test Item Value Reference Range Interpretation Comments Total CK (test code = Total CK) 109 12-191 [facility] [id number] 00:03:00 Test Item Value Reference Range Interpretation Comments Troponin-I (test code no gt See_Comment [Auto mated message] The = Troponin-I) system which g enerated this result transmit katerin reference range : <=0.40. The reference r kvng was not used to interpr et this result as carlita l/abnormal. [facility] [id number] 00:03:00 Test Item Value Reference Range Interpretation Comments Glucose Lvl (test code = Glucose Lvl) 112 70-99 [place] 644980-03-06 00:03:00 Test Item Value Reference Range Interpretation Comments BUN (test code = BUN) 13 7-22 [place] 644980-03-06 00:03:00 Test Item Value Reference Range Interpretation Comments Creatinine Lvl (test code = Creatinine 0.78 0.50-1.40 Lvl) [place] 644980-03-06 00:03:00 Test Item Value Reference Range Interpretation Comments Sodium Lvl (test code = Sodium Lvl) 141 135-145 [place] 644980-03-06 00:03:00 Test Item Value Reference Range Interpretation Comments Potassium Lvl (test code = Potassium 3.8 3.5-5.1 Lvl) [place] 644980-03-06 00:03:00 Test Item Value Reference Range Interpretation Comments Chloride Lvl (test code = Chloride Lvl) 108 95-109 [place] 644980-03-06 00:03:00 Test Item Value Reference Range Interpretation Comments CO2 (test code = CO2) 28 24-32 [place] 644980-03-06 00:03:00 Test Item Value Reference Range Interpretation Comments Calcium Lvl (test code = Calcium Lvl) 9.3 8.5-10.5 [place] 644980-03-06 00:03:00 Test Item Value Reference Range Interpretation Comments Total Protein (test code = Total 7.5 6.4-8.4 Protein) [place] 644980-03-06 00:03:00 Test Item Value Reference Range Interpretation Comments Albumin Lvl (test code = Albumin Lvl) 4.0 3.5-5.0 [place] 644980-03-06 00:03:00 Test Item Value Reference Range Interpretation Comments ALT (test code = ALT) 21 See_Comment [Auto mated message] The system which ge nerated this result transmit katerin reference range : <=65. The reference range was not used to interpr et this result as carlita l/abnormal. [place] 644980-03-06 00:03:00 Test Item Value Reference Range Interpretation Comments AST (test code = AST) 16 See_Comment [Auto mated message] The system which ge nerated this result transmit katerin reference range : <=37. The reference range was not used to interpr et this result as carlita l/abnormal. [facility] [id number] 00:03:00 Test Item Value Reference Range Interpretation Comments Alk Phos (test code = Alk Phos) 96 39-136 [facility] [id number] 00:03:00 Test Item Value Reference Range Interpretation Comments Bili Total (test code = Bili Total) 0.4 0.2-1.3 [facility] [id number] 00:03:00 Test Item Value Reference Range Interpretation Comments AGAP (test code = AGAP) 8.8 10.0-20.0 [facility] [id number] 00:03:00 Test Item Value Reference Range Interpretation Comments B/C Ratio (test code = B/C Ratio) 17 1 6-25 [facility] [id number] 00:03:00 Test Item Value Reference Range Interpretation Comments Globulin (test code = Globulin) 3.5 2.7-4.2 [facility] [id number] 00:03:00 Test Item Value Reference Range Interpretation Comments A/G Ratio (test code = A/G Ratio) 1.1 1 0.7-1.6 [facility] [id number] 00:03:00 Test Item Value Reference Range Interpretation Comments eGFR (test code = eGFR) 128 [facility] LakeSralychSIWALDVKHZ5760-33-01 00:03:00 Test Item Value Reference Range Interpretation Comments WBC (test code = WBC) 6.5 3.7-10.4 [facility] CenterHnxefuhFCPZWRCPWC7758-85-41 00:03:00 Test Item Value Reference Range Interpretation Comments RBC (test code = RBC) 4.26 4.70-6.10 [facility] CenterBqfjorgGHKJNXXJVH4828-46-20 00:03:00 Test Item Value Reference Range Interpretation Comments Hgb (test code = Hgb) 13.0 14.0-18.0 [facility] CenterRhhrvwrGOUGLOLLVQ7542-20-20 00:03:00 Test Item Value Reference Range Interpretation Comments Hct (test code = Hct) 37.1 42.0-54.0 [facility] CenterAdtoiqoVHBEQIOFDX9754-74-00 00:03:00 Test Item Value Reference Range Interpretation Comments MCV (test code = MCV) 87.0 80.0-94.0 [facility]viewVtittnzWOXMYGQDCN8521-45-71 00:03:00 Test Item Value Reference Range Interpretation Comments MCH (test code = MCH) 30.5 pg 27.0-31.0 [facility] LongviewXllizbwVKJUNJRPCK5945-75-66 00:03:00 Test Item Value Reference Range Interpretation Comments MCHC (test code = MCHC) 35.1 32.0-36.0 [facility] LongviewExhcxkcRDPFVAYAGD2449-59-88 00:03:00 Test Item Value Reference Range Interpretation Comments RDW (test code = RDW) 13.7 11.5-14.5 [facility] LongviewHtgyofjIMFQUKLZDB8437-20-72 00:03:00 Test Item Value Reference Range Interpretation Comments Platelet (test code = Platelet) 245 133-450 [facility] LongviewUwmknlsCWMVHRZBXS1920-17-36 00:03:00 Test Item Value Reference Range Interpretation Comments MPV (test code = MPV) 6.7 7.4-10.4 [facility] LongviewIlezjduVTAPBRFZPO3923-12-01 00:03:00 Test Item Value Reference Range Interpretation Comments Segs (test code = Segs) 56.0 45.0-75.0 [facility] LongviewLizmiexEELOYLIKUB3847-35-27 00:03:00 Test Item Value Reference Range Interpretation Comments Lymphocytes (test code = Lymphocytes) 36.0 20.0-40.0 [facility] LongviewNjyjilnCTWURXGEEX2412-57-16 00:03:00 Test Item Value Reference Range Interpretation Comments Monocytes (test code = Monocytes) 6.0 2.0-12.0 [facility] LongviewIlpmerbGMDGXYGTTD3082-63-72 00:03:00 Test Item Value Reference Range Interpretation Comments Eosinophils (test code = 1.5 See_Comment [A utomated message] The Eosinophils) system which ge nerated this result tra nsmitted reference range : <=4.0. The reference r kvng was not used to int erpret this result as normal/abnormal . [facility] LongviewTtvuzxjVDRIPZVSWZ1873-95-68 00:03:00 Test Item Value Reference Range Interpretation Comments Basophils (test code = 0.5 See_Comment [Aut omated message] The Basophils) system which ge nerated this result tra nsmitted reference range : <=1.0. The reference r kvng was not used to int erpret this result as normal/abnormal . [facility] LongviewDdwhijdADPGKXWNBB9453-37-51 00:03:00 Test Item Value Reference Range Interpretation Comments Neutrophils # (test code = Neutrophils 3.7 1.5-8.1 #) [facility]ZfpdxiaLZLLUKKDVN1161-80-[facility] 00:03:00 Test Item Value Reference Range Interpretation Comments Lymphocytes # (test code = Lymphocytes 2.3 1.0-5.5 #) [facility] HospitalSguzzxlTXURSTQOPP5902-00-27 00:03:00 Test Item Value Reference Range Interpretation Comments Monocytes # (test code 0.4 See_Comment [Aut omated message] The = Monocytes #) system which generated this result tra nsmitted reference range : <=0.8. The reference r kvng was not used to int erpret this result as normal/abnormal . [facility] LongviewPfexgdzDEFJLUORIP4391-18-61 00:03:00 Test Item Value Reference Range Interpretation Comments Eosinophils # (test code 0.1 See_Comment [A utomated message] The = Eosinophils #) system whic h generated this result tra nsmitted reference range : <=0.5. The reference r kvng was not used to int erpret this result as normal/abnormal . [facility] [id number] 00:03:00 Test Item Value Reference Range Interpretation Comments Total CK (test code = Total CK) 109 12-191 [facility] [id number] 00:03:00 Test Item Value Reference Range Interpretation Comments Troponin-I (test code no gt See_Comment [Auto mated message] The = Troponin-I) system which g enerated this result transmit katerin reference range : <=0.40. The reference r kvng was not used to interpr et this result as carlita l/abnormal. [facility] [id number] 00:03:00 Test Item Value Reference Range Interpretation Comments Glucose Lvl (test code = Glucose Lvl) 112 70-99 [facility] [id number] 00:03:00 Test Item Value Reference Range Interpretation Comments BUN (test code = BUN) 13 7-22 [facility] [id number] 00:03:00 Test Item Value Reference Range Interpretation Comments Creatinine Lvl (test code = Creatinine 0.78 0.50-1.40 Lvl) [facility] [id number] 00:03:00 Test Item Value Reference Range Interpretation Comments Sodium Lvl (test code = Sodium Lvl) 141 135-145 [facility] [id number] 00:03:00 Test Item Value Reference Range Interpretation Comments Potassium Lvl (test code = Potassium 3.8 3.5-5.1 Lvl) [facility] [id number] 00:03:00 Test Item Value Reference Range Interpretation Comments Chloride Lvl (test code = Chloride Lvl) 108 95-109 [facility] [id number] 00:03:00 Test Item Value Reference Range Interpretation Comments CO2 (test code = CO2) 28 24-32 [facility] [id number] 00:03:00 Test Item Value Reference Range Interpretation Comments Calcium Lvl (test code = Calcium Lvl) 9.3 8.5-10.5 [facility] [place] [id number] 00:03:00 Test Item Value Reference Range Interpretation Comments Total Protein (test code = Total 7.5 6.4-8.4 Protein) [facility] [id number] 00:03:00 Test Item Value Reference Range Interpretation Comments Albumin Lvl (test code = Albumin Lvl) 4.0 3.5-5.0 [facility] [id number] 00:03:00 Test Item Value Reference Range Interpretation Comments ALT (test code = ALT) 21 See_Comment [Auto mated message] The system which ge nerated this result transmit katerin reference range : <=65. The reference range was not used to interpr et this result as carlita l/abnormal. [facility] [place] [id number] 00:03:00 Test Item Value Reference Range Interpretation Comments AST (test code = AST) 16 See_Comment [Auto mated message] The system which ge nerated this result transmit katerin reference range : <=37. The reference range was not used to interpr et this result as carlita l/abnormal. [facility] [place] [id number] 00:03:00 Test Item Value Reference Range Interpretation Comments Alk Phos (test code = Alk Phos) 96 39-136 [facility] [id number] 00:03:00 Test Item Value Reference Range Interpretation Comments Bili Total (test code = Bili Total) 0.4 0.2-1.3 [facility] [place] [id number] 00:03:00 Test Item Value Reference Range Interpretation Comments AGAP (test code = AGAP) 8.8 10.0-20.0 [facility]We[facility] [id number] 00:03:00 Test Item Value Reference Range Interpretation Comments B/C Ratio (test code = B/C Ratio) 17 1 6-25 [facility] LakeWe[facility] [id number] 00:03:00 Test Item Value Reference Range Interpretation Comments Globulin (test code = Globulin) 3.5 2.7-4.2 [facility]We[facility] [id number] 00:03:00 Test Item Value Reference Range Interpretation Comments A/G Ratio (test code = A/G Ratio) 1.1 1 0.7-1.6 [facility] LakeWe[facility] [id number] 00:03:00 Test Item Value Reference Range Interpretation Comments eGFR (test code = eGFR) 128 [facility]viewGhcegjmJCUEWDPJUU1012-84-22 00:03:00 Test Item Value Reference Range Interpretation Comments WBC (test code = WBC) 6.5 3.7-10.4 [facility] LongviewOsoammiVAFLTJORAJ0755-88-01 00:03:00 Test Item Value Reference Range Interpretation Comments RBC (test code = RBC) 4.26 4.70-6.10 [facility] LakeIhrsxthGGGGBQYTJN5205-37-01 00:03:00 Test Item Value Reference Range Interpretation Comments Hgb (test code = Hgb) 13.0 14.0-18.0 [facility] LongviewGlqzlvyVDEXLSQBSN4313-11-56 00:03:00 Test Item Value Reference Range Interpretation Comments Hct (test code = Hct) 37.1 42.0-54.0 [facility] LongviewBsdkuctORZRVVOYDH7875-46-58 00:03:00 Test Item Value Reference Range Interpretation Comments MCV (test code = MCV) 87.0 80.0-94.0 [facility] LongviewRmlxlwoAXXSOBJEUB7561-50-72 00:03:00 Test Item Value Reference Range Interpretation Comments MCH (test code = MCH) 30.5 pg 27.0-31.0 [facility] LongviewKpqpbzqEUZIDZUYJG2015-50-43 00:03:00 Test Item Value Reference Range Interpretation Comments MCHC (test code = MCHC) 35.1 32.0-36.0 [facility] LongviewQxstexxVDYOMZWKNT0462-65-69 00:03:00 Test Item Value Reference Range Interpretation Comments RDW (test code = RDW) 13.7 11.5-14.5 [facility] LongviewXawtaxvNEOXYLGVON6296-67-36 00:03:00 Test Item Value Reference Range Interpretation Comments Platelet (test code = Platelet) 245 133-450 [facility] LongviewPoooddzPJTDOJSEDG1834-81-70 00:03:00 Test Item Value Reference Range Interpretation Comments MPV (test code = MPV) 6.7 7.4-10.4 [facility] LongviewKbazgnaLESOFMYYDB7526-70-15 00:03:00 Test Item Value Reference Range Interpretation Comments Segs (test code = Segs) 56.0 45.0-75.0 [facility] LongviewDfscbhkRUEVPWINQP4425-19-73 00:03:00 Test Item Value Reference Range Interpretation Comments Lymphocytes (test code = Lymphocytes) 36.0 20.0-40.0 [facility] LongviewHmopgduMYLRNOYFBK4855-12-04 00:03:00 Test Item Value Reference Range Interpretation Comments Monocytes (test code = Monocytes) 6.0 2.0-12.0 [facility] LongviewOompvfaBIOKGXSQKB6316-96-38 00:03:00 Test Item Value Reference Range Interpretation Comments Eosinophils (test code = 1.5 See_Comment [A utomated message] The Eosinophils) system which ge nerated this result tra nsmitted reference range : <=4.0. The reference r kvng was not used to int erpret this result as normal/abnormal . [facility] LongviewUjsknkgEXZMYYORIE3923-12-48 00:03:00 Test Item Value Reference Range Interpretation Comments Basophils (test code = 0.5 See_Comment [Aut omated message] The Basophils) system which ge nerated this result tra nsmitted reference range : <=1.0. The reference r kvng was not used to int erpret this result as normal/abnormal . [facility] LongviewQkueiuaOAUFENZJED9059-49-04 00:03:00 Test Item Value Reference Range Interpretation Comments Neutrophils # (test code = Neutrophils 3.7 1.5-8.1 #) [facility] LongviewVjmmimvACJIEVNUQB0425-71-16 00:03:00 Test Item Value Reference Range Interpretation Comments Lymphocytes # (test code = Lymphocytes 2.3 1.0-5.5 #) [facility] LongviewOnnziexPEZQCNBHGI0163-39-14 00:03:00 Test Item Value Reference Range Interpretation Comments Monocytes # (test code 0.4 See_Comment [Aut omated message] The = Monocytes #) system which generated this result tra nsmitted reference range : <=0.8. The reference r kvng was not used to int erpret this result as normal/abnormal . [facility] CenterFiwapczYLOYOCYCGJ7398-80-14 00:03:00 Test Item Value Reference Range Interpretation Comments Eosinophils # (test code 0.1 See_Comment [A utomated message] The = Eosinophils #) system whic h generated this result tra nsmitted reference range : <=0.5. The reference r kvng was not used to int erpret this result as normal/abnormal . [facility] [place] [id number] 00:03:00 Test Item Value Reference Range Interpretation Comments Total CK (test code = Total CK) 109 12-191 [facility] CenterDomin-[employer] [id number] 00:03:00 Test Item Value Reference Range Interpretation Comments Troponin-I (test code no gt See_Comment [Auto mated message] The = Troponin-I) system which g enerated this result transmit katerin reference range : <=0.40. The reference r kvng was not used to interpr et this result as carlita l/abnormal. [facility] [place] [id number] 00:03:00 Test Item Value Reference Range Interpretation Comments Glucose Lvl (test code = Glucose Lvl) 112 70-99 [facility] [place] [id number] 00:03:00 Test Item Value Reference Range Interpretation Comments BUN (test code = BUN) 13 7-22 [facility] [place] [id number] 00:03:00 Test Item Value Reference Range Interpretation Comments Creatinine Lvl (test code = Creatinine 0.78 0.50-1.40 Lvl) [facility] [place] [id number] 00:03:00 Test Item Value Reference Range Interpretation Comments Sodium Lvl (test code = Sodium Lvl) 141 135-145 [facility] [place] [id number] 00:03:00 Test Item Value Reference Range Interpretation Comments Potassium Lvl (test code = Potassium 3.8 3.5-5.1 Lvl) [facility] [place] [id number] 00:03:00 Test Item Value Reference Range Interpretation Comments Chloride Lvl (test code = Chloride Lvl) 108 95-109 [facility] [place] [id number] 00:03:00 Test Item Value Reference Range Interpretation Comments CO2 (test code = CO2) 28 24-32 [facility] [place] [id number] 00:03:00 Test Item Value Reference Range Interpretation Comments Calcium Lvl (test code = Calcium Lvl) 9.3 8.5-10.5 [facility] [id number] 00:03:00 Test Item Value Reference Range Interpretation Comments Total Protein (test code = Total 7.5 6.4-8.4 Protein) [facility] [id number] 00:03:00 Test Item Value Reference Range Interpretation Comments Albumin Lvl (test code = Albumin Lvl) 4.0 3.5-5.0 [facility] [place] [id number] 00:03:00 Test Item Value Reference Range Interpretation Comments ALT (test code = ALT) 21 See_Comment [Auto mated message] The system which ge nerated this result transmit katerin reference range : <=65. The reference range was not used to interpr et this result as carlita l/abnormal. [facility] [place] [id number] 00:03:00 Test Item Value Reference Range Interpretation Comments AST (test code = AST) 16 See_Comment [Auto mated message] The system which ge nerated this result transmit katerin reference range : <=37. The reference range was not used to interpr et this result as carlita l/abnormal. [facility] [place] [id number] 00:03:00 Test Item Value Reference Range Interpretation Comments Alk Phos (test code = Alk Phos) 96 39-136 [facility] [place] [id number] 00:03:00 Test Item Value Reference Range Interpretation Comments Bili Total (test code = Bili Total) 0.4 0.2-1.3 [facility] [place] [id number] 00:03:00 Test Item Value Reference Range Interpretation Comments AGAP (test code = AGAP) 8.8 10.0-20.0 [facility] [place] [id number] 00:03:00 Test Item Value Reference Range Interpretation Comments B/C Ratio (test code = B/C Ratio) 17 1 6-25 [facility] [place] [id number] 00:03:00 Test Item Value Reference Range Interpretation Comments Globulin (test code = Globulin) 3.5 2.7-4.2 [facility] [id number] 00:03:00 Test Item Value Reference Range Interpretation Comments A/G Ratio (test code = A/G Ratio) 1.1 1 0.7-1.6 [facility] [id number] 00:03:00 Test Item Value Reference Range Interpretation Comments eGFR (test code = eGFR) 128 [facility]viewAyhngxcFFXSRFSUPL3217-25-16 00:03:00 Test Item Value Reference Range Interpretation Comments WBC (test code = WBC) 6.5 3.7-10.4 [place] 050390-03-06 00:03:00 Test Item Value Reference Range Interpretation Comments RBC (test code = RBC) 4.26 4.70-6.10 [facility] LongviewEbgbdecKJFQJXPOCD3023-28-31 00:03:00 Test Item Value Reference Range Interpretation Comments Hgb (test code = Hgb) 13.0 14.0-18.0 [place] [address]-03-06 00:03:00 Test Item Value Reference Range Interpretation Comments Hct (test code = Hct) 37.1 42.0-54.0 [place] 050390-03-06 00:03:00 Test Item Value Reference Range Interpretation Comments MCV (test code = MCV) 87.0 80.0-94.0 [facility] LongviewFhuiexrYAENORZEWR7221-81-06 00:03:00 Test Item Value Reference Range Interpretation Comments MCH (test code = MCH) 30.5 pg 27.0-31.0 [facility] LongviewDwxsfdtRQMUQKRLYF2893-46-08 00:03:00 Test Item Value Reference Range Interpretation Comments MCHC (test code = MCHC) 35.1 32.0-36.0 [facility] LongviewKzfsdmiXSOXWOQTIM3279-47-58 00:03:00 Test Item Value Reference Range Interpretation Comments RDW (test code = RDW) 13.7 11.5-14.5 [place] 050390-03-06 00:03:00 Test Item Value Reference Range Interpretation Comments Platelet (test code = Platelet) 245 133-450 [facility] LongviewBfafaeuIHJNOOVSSE0272-53-08 00:03:00 Test Item Value Reference Range Interpretation Comments MPV (test code = MPV) 6.7 7.4-10.4 [facility] LongviewAzkoijqVXRPNWOMPF9973-75-90 00:03:00 Test Item Value Reference Range Interpretation Comments Segs (test code = Segs) 56.0 45.0-75.0 [facility]AleehhcUSIVLDTUCO3424-09-44 00:03:00 Test Item Value Reference Range Interpretation Comments Lymphocytes (test code = Lymphocytes) 36.0 20.0-40.0 [facility]NftzrrvMNTBKVSSLU6740-30-27 00:03:00 Test Item Value Reference Range Interpretation Comments Monocytes (test code = Monocytes) 6.0 2.0-12.0 [facility] HospitalOzyoykiMCDXSLRQAI9353-64-19 00:03:00 Test Item Value Reference Range Interpretation Comments Eosinophils (test code = 1.5 See_Comment [A utomated message] The Eosinophils) system which ge nerated this result tra nsmitted reference range : <=4.0. The reference r kvng was not used to int erpret this result as normal/abnormal . [facility] LongviewUxfcgfxRONNZJMNUG6758-35-80 00:03:00 Test Item Value Reference Range Interpretation Comments Basophils (test code = 0.5 See_Comment [Aut omated message] The Basophils) system which ge nerated this result tra nsmitted reference range : <=1.0. The reference r kvng was not used to int erpret this result as normal/abnormal . [facility]CARDIAC [id number] 23:21:00 Test Item Value Reference Range Interpretation Comments Troponin-I (test code no gt See_Comment [Auto mated message] The = Troponin-I) system which g enerated this result transmit katerin reference range : <=0.40. The reference r kvng was not used to interpr et this result as carlita l/abnormal. [facility] [id number] 23:21:00 Test Item Value Reference Range Interpretation Comments Glucose Lvl (test code = Glucose Lvl) 87 70-99 [facility] [id number] 23:21:00 Test Item Value Reference Range Interpretation Comments BUN (test code = BUN) 17 7-22 [facility]We[facility] [id number] 23:21:00 Test Item Value Reference Range Interpretation Comments Creatinine Lvl (test code = Creatinine 0.87 0.50-1.40 Lvl) [facility] [facility] [id number] 23:21:00 Test Item Value Reference Range Interpretation Comments Sodium Lvl (test code = Sodium Lvl) 139 135-145 [facility]2020-03-03 23:21:00 Test Item Value Reference Range Interpretation Comments Potassium Lvl (test code = Potassium 3.8 3.5-5.1 Lvl) [facility]2020-03-03 23:21:00 Test Item Value Reference Range Interpretation Comments Chloride Lvl (test code = Chloride Lvl) 107 95-109 [place] 644980-03-03 23:21:00 Test Item Value Reference Range Interpretation Comments CO2 (test code = CO2) 27 24-32 [place] [address]-03-03 23:21:00 Test Item Value Reference Range Interpretation Comments Calcium Lvl (test code = Calcium Lvl) 9.1 8.5-10.5 [place] 644980-03-03 23:21:00 Test Item Value Reference Range Interpretation Comments AGAP (test code = AGAP) 8.8 10.0-20.0 [place] 644980-03-03 23:21:00 Test Item Value Reference Range Interpretation Comments eGFR (test code = eGFR) 122 [place] [address]-03-03 23:21:00 Test Item Value Reference Range Interpretation Comments WBC (test code = WBC) 7.8 3.7-10.4 [place] [address]-03-03 23:21:00 Test Item Value Reference Range Interpretation Comments RBC (test code = RBC) 4.54 4.70-6.10 [place] [address]-03-03 23:21:00 Test Item Value Reference Range Interpretation Comments Hgb (test code = Hgb) 13.6 14.0-18.0 [place] [address]-03-03 23:21:00 Test Item Value Reference Range Interpretation Comments Hct (test code = Hct) 39.2 42.0-54.0 [place] [address]-03-03 23:21:00 Test Item Value Reference Range Interpretation Comments MCV (test code = MCV) 86.4 80.0-94.0 [place] [address]-03-03 23:21:00 Test Item Value Reference Range Interpretation Comments MCH (test code = MCH) 29.9 pg 27.0-31.0 [place] [address]-03-03 23:21:00 Test Item Value Reference Range Interpretation Comments MCHC (test code = MCHC) 34.6 32.0-36.0 [facility]TjsftfgOPQXRLCYMM8163-31-00 23:21:00 Test Item Value Reference Range Interpretation Comments RDW (test code = RDW) 14.2 11.5-14.5 [facility]viewGfbnvdhXJYKHYLTQK6835-07-83 23:21:00 Test Item Value Reference Range Interpretation Comments Platelet (test code = Platelet) 268 133-450 [facility]viewLkmpcltTNJHIXLQAE8792-29-79 23:21:00 Test Item Value Reference Range Interpretation Comments MPV (test code = MPV) 6.3 7.4-10.4 [facility]viewYkcdyecXUBNZWOPQM8755-56-92 23:21:00 Test Item Value Reference Range Interpretation Comments D-Dimer (test code = D-Dimer) 1.01 [facility]viewRyxdblgJBNOWTTBEK4577-11-10 23:21:00 Test Item Value Reference Range Interpretation Comments Segs (test code = Segs) 50.7 45.0-75.0 [facility]viewUmnrwxoWAOPRISFQK0478-36-93 23:21:00 Test Item Value Reference Range Interpretation Comments Lymphocytes (test code = Lymphocytes) 40.5 20.0-40.0 [facility]viewJbenmjtBZDGKONINA6709-77-47 23:21:00 Test Item Value Reference Range Interpretation Comments Monocytes (test code = Monocytes) 6.1 2.0-12.0 [facility]viewVrjsalzSSWKICNGWY6595-07-53 23:21:00 Test Item Value Reference Range Interpretation Comments Eosinophils (test code = 2.0 See_Comment [A utomated message] The Eosinophils) system which ge nerated this result tra nsmitted reference range : <=4.0. The reference r kvng was not used to int erpret this result as normal/abnormal . [facility]viewTnljevjQYEHKXSVJD1537-89-96 23:21:00 Test Item Value Reference Range Interpretation Comments Basophils (test code = 0.7 See_Comment [Aut omated message] The Basophils) system which ge nerated this result tra nsmitted reference range : <=1.0. The reference r kvng was not used to int erpret this result as normal/abnormal . [facility]viewHvkqvyqUEPITVXLXI1596-01-15 23:21:00 Test Item Value Reference Range Interpretation Comments Neutrophils # (test code = Neutrophils 4.0 1.5-8.1 #) [facility] 23:21:00 Test Item Value Reference Range Interpretation Comments Lymphocytes # (test code = Lymphocytes 3.2 1.0-5.5 #) [facility]JiydgjsWUWUZFTBCN7688-22-34 23:21:00 Test Item Value Reference Range Interpretation Comments Monocytes # (test code 0.5 See_Comment [Aut omated message] The = Monocytes #) system which generated this result tra nsmitted reference range : <=0.8. The reference r kvng was not used to int erpret this result as normal/abnormal . [facility]viewZpymsrwQSHYDKVYUI6131-26-40 23:21:00 Test Item Value Reference Range Interpretation Comments Eosinophils # (test code 0.2 See_Comment [A utomated message] The = Eosinophils #) system whic h generated this result tra nsmitted reference range : <=0.5. The reference r kvng was not used to int erpret this result as normal/abnormal . [facility]viewHuvtfyrEOGZXJKNWG1330-83-01 23:21:00 Test Item Value Reference Range Interpretation Comments Basophils # (test code 0.1 See_Comment [Aut omated message] The = Basophils #) system which generated this result tra nsmitted reference range : <=0.2. The reference r kvng was not used to int erpret this result as normal/abnormal . [facility] LakeCARDIAC [id number] 23:21:00 Test Item Value Reference Range Interpretation Comments Troponin-I (test code no gt See_Comment [Auto mated message] The = Troponin-I) system which g enerated this result transmit katerin reference range : <=0.40. The reference r kvng was not used to interpr et this result as carlita l/abnormal. [facility] [id number] 23:21:00 Test Item Value Reference Range Interpretation Comments Glucose Lvl (test code = Glucose Lvl) 87 70-99 [facility] LakeWebsupport [id number] 23:21:00 Test Item Value Reference Range Interpretation Comments BUN (test code = BUN) 17 7-22 [facility] LakeWebsupp[facility] [id number] 23:21:00 Test Item Value Reference Range Interpretation Comments Creatinine Lvl (test code = Creatinine 0.87 0.50-1.40 Lvl) [place] 644980-03-03 23:21:00 Test Item Value Reference Range Interpretation Comments Sodium Lvl (test code = Sodium Lvl) 139 135-145 [place] 644980-03-03 23:21:00 Test Item Value Reference Range Interpretation Comments Potassium Lvl (test code = Potassium 3.8 3.5-5.1 Lvl) [place] 644980-03-03 23:21:00 Test Item Value Reference Range Interpretation Comments Chloride Lvl (test code = Chloride Lvl) 107 95-109 [place] [address]-03-03 23:21:00 Test Item Value Reference Range Interpretation Comments CO2 (test code = CO2) 27 24-32 [place] 644980-03-03 23:21:00 Test Item Value Reference Range Interpretation Comments Calcium Lvl (test code = Calcium Lvl) 9.1 8.5-10.5 [place] 644980-03-03 23:21:00 Test Item Value Reference Range Interpretation Comments AGAP (test code = AGAP) 8.8 10.0-20.0 [place] [address]-03-03 23:21:00 Test Item Value Reference Range Interpretation Comments eGFR (test code = eGFR) 122 [place] [address]-03-03 23:21:00 Test Item Value Reference Range Interpretation Comments WBC (test code = WBC) 7.8 3.7-10.4 [place] [address]-03-03 23:21:00 Test Item Value Reference Range Interpretation Comments RBC (test code = RBC) 4.54 4.70-6.10 [place] [address]-03-03 23:21:00 Test Item Value Reference Range Interpretation Comments Hgb (test code = Hgb) 13.6 14.0-18.0 [address]03-03 23:21:00 Test Item Value Reference Range Interpretation Comments Hct (test code = Hct) 39.2 42.0-54.0 [place] [address]-03-03 23:21:00 Test Item Value Reference Range Interpretation Comments MCV (test code = MCV) 86.4 80.0-94.0 [place] [address]-03-03 23:21:00 Test Item Value Reference Range Interpretation Comments MCH (test code = MCH) 29.9 pg 27.0-31.0 [facility]viewZhegdjoIKNMWNWWZW4398-46-79 23:21:00 Test Item Value Reference Range Interpretation Comments MCHC (test code = MCHC) 34.6 32.0-36.0 [facility] LongviewLoditlmGAGZGYPIAY2979-30-77 23:21:00 Test Item Value Reference Range Interpretation Comments RDW (test code = RDW) 14.2 11.5-14.5 [facility]viewUuuajenLZZZKKZDOH2828-51-26 23:21:00 Test Item Value Reference Range Interpretation Comments Platelet (test code = Platelet) 268 133-450 [facility] LongviewXepquqgSADAEGWXJE5100-40-64 23:21:00 Test Item Value Reference Range Interpretation Comments MPV (test code = MPV) 6.3 7.4-10.4 [facility] LongviewLundtxtREACQIPPSY3793-11-52 23:21:00 Test Item Value Reference Range Interpretation Comments D-Dimer (test code = D-Dimer) 1.01 [facility]viewSnjvlzjEDRURLTYKB2073-51-57 23:21:00 Test Item Value Reference Range Interpretation Comments Segs (test code = Segs) 50.7 45.0-75.0 [facility] LongviewZmdnjqbYWGBWDLPDH8057-38-14 23:21:00 Test Item Value Reference Range Interpretation Comments Lymphocytes (test code = Lymphocytes) 40.5 20.0-40.0 [facility] LongviewDnurunoTHVZICLYBR4045-49-78 23:21:00 Test Item Value Reference Range Interpretation Comments Monocytes (test code = Monocytes) 6.1 2.0-12.0 [facility] LongviewUdwqgovRQWSUHZTJO5339-31-69 23:21:00 Test Item Value Reference Range Interpretation Comments Eosinophils (test code = 2.0 See_Comment [A utomated message] The Eosinophils) system which ge nerated this result tra nsmitted reference range : <=4.0. The reference r kvng was not used to int erpret this result as normal/abnormal . [facility] LongviewBsialgoXMJEREVNHD3137-08-13 23:21:00 Test Item Value Reference Range Interpretation Comments Basophils (test code = 0.7 See_Comment [Aut omated message] The Basophils) system which ge nerated this result tra nsmitted reference range : <=1.0. The reference r kvng was not used to int erpret this result as normal/abnormal . [facility]viewGgjhwmcKCBMRXPUYH4439-98-13 23:21:00 Test Item Value Reference Range Interpretation Comments Neutrophils # (test code = Neutrophils 4.0 1.5-8.1 #) [facility]viewAyoanpvTEKWUSDIQN7547-24-02 23:21:00 Test Item Value Reference Range Interpretation Comments Lymphocytes # (test code = Lymphocytes 3.2 1.0-5.5 #) [facility] LongviewFjorotnMODSZKJFVW7412-42-77 23:21:00 Test Item Value Reference Range Interpretation Comments Monocytes # (test code 0.5 See_Comment [Aut omated message] The = Monocytes #) system which generated this result tra nsmitted reference range : <=0.8. The reference r kvng was not used to int erpret this result as normal/abnormal . [facility]viewDkdsjriXJNHHUVKWD6239-18-81 23:21:00 Test Item Value Reference Range Interpretation Comments Eosinophils # (test code 0.2 See_Comment [A utomated message] The = Eosinophils #) system whic h generated this result tra nsmitted reference range : <=0.5. The reference r kvng was not used to int erpret this result as normal/abnormal . [facility] LongviewYwsqflsRWENRCNBSV2465-14-89 23:21:00 Test Item Value Reference Range Interpretation Comments Basophils # (test code 0.1 See_Comment [Aut omated message] The = Basophils #) system which generated this result tra nsmitted reference range : <=0.2. The reference r kvng was not used to int erpret this result as normal/abnormal . [facility] LakeCARDIAC [id number] 23:21:00 Test Item Value Reference Range Interpretation Comments Troponin-I (test code no gt See_Comment [Auto mated message] The = Troponin-I) system which g enerated this result transmit katerin reference range : <=0.40. The reference r kvng was not used to interpr et this result as carlita l/abnormal. [facility] [id number] 23:21:00 Test Item Value Reference Range Interpretation Comments Glucose Lvl (test code = Glucose Lvl) 87 70-99 [facility] [id number] 23:21:00 Test Item Value Reference Range Interpretation Comments BUN (test code = BUN) 17 7-22 [facility] [id number] 23:21:00 Test Item Value Reference Range Interpretation Comments Creatinine Lvl (test code = Creatinine 0.87 0.50-1.40 Lvl) [place] 644980-03-03 23:21:00 Test Item Value Reference Range Interpretation Comments Sodium Lvl (test code = Sodium Lvl) 139 135-145 [place] 644980-03-03 23:21:00 Test Item Value Reference Range Interpretation Comments Potassium Lvl (test code = Potassium 3.8 3.5-5.1 Lvl) [place] 644980-03-03 23:21:00 Test Item Value Reference Range Interpretation Comments Chloride Lvl (test code = Chloride Lvl) 107 95-109 [place] 644980-03-03 23:21:00 Test Item Value Reference Range Interpretation Comments CO2 (test code = CO2) 27 24-32 [place] [address]-03-03 23:21:00 Test Item Value Reference Range Interpretation Comments Calcium Lvl (test code = Calcium Lvl) 9.1 8.5-10.5 [place] [address]-03-03 23:21:00 Test Item Value Reference Range Interpretation Comments AGAP (test code = AGAP) 8.8 10.0-20.0 [place] [address]-03-03 23:21:00 Test Item Value Reference Range Interpretation Comments eGFR (test code = eGFR) 122 [place] 050390-03-03 23:21:00 Test Item Value Reference Range Interpretation Comments WBC (test code = WBC) 7.8 3.7-10.4 [place] [address]-03-03 23:21:00 Test Item Value Reference Range Interpretation Comments RBC (test code = RBC) 4.54 4.70-6.10 [place] [address]-03-03 23:21:00 Test Item Value Reference Range Interpretation Comments Hgb (test code = Hgb) 13.6 14.0-18.0 [place] [address]-03-03 23:21:00 Test Item Value Reference Range Interpretation Comments Hct (test code = Hct) 39.2 42.0-54.0 [place] [address]-03-03 23:21:00 Test Item Value Reference Range Interpretation Comments MCV (test code = MCV) 86.4 80.0-94.0 [place] [address]-03-03 23:21:00 Test Item Value Reference Range Interpretation Comments MCH (test code = MCH) 29.9 pg 27.0-31.0 [place] 050390-03-03 23:21:00 Test Item Value Reference Range Interpretation Comments MCHC (test code = MCHC) 34.6 32.0-36.0 [place] 050390-03-03 23:21:00 Test Item Value Reference Range Interpretation Comments RDW (test code = RDW) 14.2 11.5-14.5 [place] [address]-03-03 23:21:00 Test Item Value Reference Range Interpretation Comments Platelet (test code = Platelet) 268 133-450 [place] 050390-03-03 23:21:00 Test Item Value Reference Range Interpretation Comments MPV (test code = MPV) 6.3 7.4-10.4 [place] [address]-03-03 23:21:00 Test Item Value Reference Range Interpretation Comments D-Dimer (test code = D-Dimer) 1.01 [place] 050390-03-03 23:21:00 Test Item Value Reference Range Interpretation Comments Segs (test code = Segs) 50.7 45.0-75.0 [place] [address]-03-03 23:21:00 Test Item Value Reference Range Interpretation Comments Lymphocytes (test code = Lymphocytes) 40.5 20.0-40.0 [place] [address]-03-03 23:21:00 Test Item Value Reference Range Interpretation Comments Monocytes (test code = Monocytes) 6.1 2.0-12.0 [place] [address]-03-03 23:21:00 Test Item Value Reference Range Interpretation Comments Eosinophils (test code = 2.0 See_Comment [A utomated message] The Eosinophils) system which ge nerated this result tra nsmitted reference range : <=4.0. The reference r kvng was not used to int erpret this result as normal/abnormal . [place] [address]-03-03 23:21:00 Test Item Value Reference Range Interpretation Comments Basophils (test code = 0.7 See_Comment [Aut omated message] The Basophils) system which ge nerated this result tra nsmitted reference range : <=1.0. The reference r kvng was not used to int erpret this result as normal/abnormal . [facility] LakeNzqjuffPPOEYKTKMY9694-89-02 23:21:00 Test Item Value Reference Range Interpretation Comments Neutrophils # (test code = Neutrophils 4.0 1.5-8.1 #) [facility]IjwnubgJXCZZXUMUU8996-70-41 23:21:00 Test Item Value Reference Range Interpretation Comments Lymphocytes # (test code = Lymphocytes 3.2 1.0-5.5 #) [facility] HospitalLyddkoePERWJVVZXP6320-77-65 23:21:00 Test Item Value Reference Range Interpretation Comments Monocytes # (test code 0.5 See_Comment [Aut omated message] The = Monocytes #) system which generated this result tra nsmitted reference range : <=0.8. The reference r kvng was not used to int erpret this result as normal/abnormal . [facility] HospitalVknqjkwAPJTJYIPFD5051-97-09 23:21:00 Test Item Value Reference Range Interpretation Comments Eosinophils # (test code 0.2 See_Comment [A utomated message] The = Eosinophils #) system whic h generated this result tra nsmitted reference range : <=0.5. The reference r kvng was not used to int erpret this result as normal/abnormal . [facility] HospitalRwdxdsjQWNJQYZRNB3636-43-40 23:21:00 Test Item Value Reference Range Interpretation Comments Basophils # (test code 0.1 See_Comment [Aut omated message] The = Basophils #) system which generated this result tra nsmitted reference range : <=0.2. The reference r kvng was not used to int erpret this result as normal/abnormal . [facility]CARD[facility]AC [id number] 23:21:00 Test Item Value Reference Range Interpretation Comments Troponin-I (test code no gt See_Comment [Auto mated message] The = Troponin-I) system which g enerated this result transmit katerin reference range : <=0.40. The reference r kvng was not used to interpr et this result as carlita l/abnormal. [facility] [id number] 23:21:00 Test Item Value Reference Range Interpretation Comments Glucose Lvl (test code = Glucose Lvl) 87 70-99 [facility] [id number] 23:21:00 Test Item Value Reference Range Interpretation Comments BUN (test code = BUN) 17 7-22 [facility]2020-03-03 23:21:00 Test Item Value Reference Range Interpretation Comments Creatinine Lvl (test code = Creatinine 0.87 0.50-1.40 Lvl) [place] 644980-03-03 23:21:00 Test Item Value Reference Range Interpretation Comments Sodium Lvl (test code = Sodium Lvl) 139 135-145 [place] 644980-03-03 23:21:00 Test Item Value Reference Range Interpretation Comments Potassium Lvl (test code = Potassium 3.8 3.5-5.1 Lvl) [place] 644980-03-03 23:21:00 Test Item Value Reference Range Interpretation Comments Chloride Lvl (test code = Chloride Lvl) 107 95-109 [place] 644980-03-03 23:21:00 Test Item Value Reference Range Interpretation Comments CO2 (test code = CO2) 27 24-32 [place] 644980-03-03 23:21:00 Test Item Value Reference Range Interpretation Comments Calcium Lvl (test code = Calcium Lvl) 9.1 8.5-10.5 [place] 644980-03-03 23:21:00 Test Item Value Reference Range Interpretation Comments AGAP (test code = AGAP) 8.8 10.0-20.0 [place] 644980-03-03 23:21:00 Test Item Value Reference Range Interpretation Comments eGFR (test code = eGFR) 122 [place] [address]-03-03 23:21:00 Test Item Value Reference Range Interpretation Comments WBC (test code = WBC) 7.8 3.7-10.4 [place] [address]-03-03 23:21:00 Test Item Value Reference Range Interpretation Comments RBC (test code = RBC) 4.54 4.70-6.10 [place] [address]-03-03 23:21:00 Test Item Value Reference Range Interpretation Comments Hgb (test code = Hgb) 13.6 14.0-18.0 [place] [address]-03-03 23:21:00 Test Item Value Reference Range Interpretation Comments Hct (test code = Hct) 39.2 42.0-54.0 [place] [address]-03-03 23:21:00 Test Item Value Reference Range Interpretation Comments MCV (test code = MCV) 86.4 80.0-94.0 [facility]viewBdvmhkbYHIKJXFBGZ5365-97-74 23:21:00 Test Item Value Reference Range Interpretation Comments MCH (test code = MCH) 29.9 pg 27.0-31.0 [facility]viewVhtxljdTTFKNMGPWX9600-53-39 23:21:00 Test Item Value Reference Range Interpretation Comments MCHC (test code = MCHC) 34.6 32.0-36.0 [facility]viewIhynffhHFZCZMZPAS6175-22-48 23:21:00 Test Item Value Reference Range Interpretation Comments RDW (test code = RDW) 14.2 11.5-14.5 [place] [address]-03-03 23:21:00 Test Item Value Reference Range Interpretation Comments Platelet (test code = Platelet) 268 133-450 [facility]viewDnltwrhNPLYUQQJXK2005-90-07 23:21:00 Test Item Value Reference Range Interpretation Comments MPV (test code = MPV) 6.3 7.4-10.4 [facility]viewTymtbtkHKKWCHJPIY5390-30-45 23:21:00 Test Item Value Reference Range Interpretation Comments D-Dimer (test code = D-Dimer) 1.01 [facility]viewAtdpujqUOMWEKLCCU7575-34-63 23:21:00 Test Item Value Reference Range Interpretation Comments Segs (test code = Segs) 50.7 45.0-75.0 [place] [address]-03-03 23:21:00 Test Item Value Reference Range Interpretation Comments Lymphocytes (test code = Lymphocytes) 40.5 20.0-40.0 [place] [address]-03-03 23:21:00 Test Item Value Reference Range Interpretation Comments Monocytes (test code = Monocytes) 6.1 2.0-12.0 [place] [address]-03-03 23:21:00 Test Item Value Reference Range Interpretation Comments Eosinophils (test code = 2.0 See_Comment [A utomated message] The Eosinophils) system which ge nerated this result tra nsmitted reference range : <=4.0. The reference r kvng was not used to int erpret this result as normal/abnormal . [facility]viewRdcixqzDGHCXGVWZZ1631-49-24 23:21:00 Test Item Value Reference Range Interpretation Comments Basophils (test code = 0.7 See_Comment [Aut omated message] The Basophils) system which ge nerated this result tra nsmitted reference range : <=1.0. The reference r kvng was not used to int erpret this result as normal/abnormal . [facility]TavewhmMGVBUFNBIQ9542-30-34 23:21:00 Test Item Value Reference Range Interpretation Comments Neutrophils # (test code = Neutrophils 4.0 1.5-8.1 #) [facility] HospitalRagbzvoLHXOZKJWXU1581-60-51 23:21:00 Test Item Value Reference Range Interpretation Comments Lymphocytes # (test code = Lymphocytes 3.2 1.0-5.5 #) [facility]viewEgktjpgPFFZODEOOY6109-44-62 23:21:00 Test Item Value Reference Range Interpretation Comments Monocytes # (test code 0.5 See_Comment [Aut omated message] The = Monocytes #) system which generated this result tra nsmitted reference range : <=0.8. The reference r kvng was not used to int erpret this result as normal/abnormal . [facility] HospitalByypbryMHMELLNJGR6345-45-56 23:21:00 Test Item Value Reference Range Interpretation Comments Eosinophils # (test code 0.2 See_Comment [A utomated message] The = Eosinophils #) system whic h generated this result tra nsmitted reference range : <=0.5. The reference r kvng was not used to int erpret this result as normal/abnormal . [facility] HospitalJhobduwBNKCRJQYLV9660-91-29 23:21:00 Test Item Value Reference Range Interpretation Comments Basophils # (test code 0.1 See_Comment [Aut omated message] The = Basophils #) system which generated this result tra nsmitted reference range : <=0.2. The reference r kvng was not used to int erpret this result as normal/abnormal . [facility] LakeCARDIAC [id number] 23:21:00 Test Item Value Reference Range Interpretation Comments Troponin-I (test code no gt See_Comment [Auto mated message] The = Troponin-I) system which g enerated this result transmit katerin reference range : <=0.40. The reference r kvng was not used to interpr et this result as carlita l/abnormal. [facility] LakeCHEM [id number] 23:21:00 Test Item Value Reference Range Interpretation Comments Glucose Lvl (test code = Glucose Lvl) 87 70-99 [facility]2020-03-03 23:21:00 Test Item Value Reference Range Interpretation Comments BUN (test code = BUN) 17 7-22 [place] 644980-03-03 23:21:00 Test Item Value Reference Range Interpretation Comments Creatinine Lvl (test code = Creatinine 0.87 0.50-1.40 Lvl) [place] 644980-03-03 23:21:00 Test Item Value Reference Range Interpretation Comments Sodium Lvl (test code = Sodium Lvl) 139 135-145 [place] 644980-03-03 23:21:00 Test Item Value Reference Range Interpretation Comments Potassium Lvl (test code = Potassium 3.8 3.5-5.1 Lvl) [place] 644980-03-03 23:21:00 Test Item Value Reference Range Interpretation Comments Chloride Lvl (test code = Chloride Lvl) 107 95-109 [place] 644980-03-03 23:21:00 Test Item Value Reference Range Interpretation Comments CO2 (test code = CO2) 27 24-32 [place] [address]-03-03 23:21:00 Test Item Value Reference Range Interpretation Comments Calcium Lvl (test code = Calcium Lvl) 9.1 8.5-10.5 [place] 644980-03-03 23:21:00 Test Item Value Reference Range Interpretation Comments AGAP (test code = AGAP) 8.8 10.0-20.0 [facility]2020-03-03 23:21:00 Test Item Value Reference Range Interpretation Comments eGFR (test code = eGFR) 122 [place] [address]-03-03 23:21:00 Test Item Value Reference Range Interpretation Comments WBC (test code = WBC) 7.8 3.7-10.4 [place] [address]-03-03 23:21:00 Test Item Value Reference Range Interpretation Comments RBC (test code = RBC) 4.54 4.70-6.10 [place] [address]-03-03 23:21:00 Test Item Value Reference Range Interpretation Comments Hgb (test code = Hgb) 13.6 14.0-18.0 [place] [address]-03-03 23:21:00 Test Item Value Reference Range Interpretation Comments Hct (test code = Hct) 39.2 42.0-54.0 [place] [address]-03-03 23:21:00 Test Item Value Reference Range Interpretation Comments MCV (test code = MCV) 86.4 80.0-94.0 [place] [address]-03-03 23:21:00 Test Item Value Reference Range Interpretation Comments MCH (test code = MCH) 29.9 pg 27.0-31.0 [facility]GnydghrWQLGLXSHNG0809-16-16 23:21:00 Test Item Value Reference Range Interpretation Comments MCHC (test code = MCHC) 34.6 32.0-36.0 [facility]viewPxinpdpRWQQPGWWXV7111-82-32 23:21:00 Test Item Value Reference Range Interpretation Comments RDW (test code = RDW) 14.2 11.5-14.5 [place] [address]-03-03 23:21:00 Test Item Value Reference Range Interpretation Comments Platelet (test code = Platelet) 268 133-450 [facility]viewIiwytttACOZGGEFRM3638-36-09 23:21:00 Test Item Value Reference Range Interpretation Comments MPV (test code = MPV) 6.3 7.4-10.4 [facility]viewWzptybhFXYZXWEVIC9198-99-23 23:21:00 Test Item Value Reference Range Interpretation Comments D-Dimer (test code = D-Dimer) 1.01 [place] [address]-03-03 23:21:00 Test Item Value Reference Range Interpretation Comments Segs (test code = Segs) 50.7 45.0-75.0 [place] [address]-03-03 23:21:00 Test Item Value Reference Range Interpretation Comments Lymphocytes (test code = Lymphocytes) 40.5 20.0-40.0 [place] [address]-03-03 23:21:00 Test Item Value Reference Range Interpretation Comments Monocytes (test code = Monocytes) 6.1 2.0-12.0 [place] [address]-03-03 23:21:00 Test Item Value Reference Range Interpretation Comments Eosinophils (test code = 2.0 See_Comment [A utomated message] The Eosinophils) system which ge nerated this result tra nsmitted reference range : <=4.0. The reference r kvng was not used to int erpret this result as normal/abnormal . [facility]xfeXSXCZRTKNR8418[facility] 23:21:00 Test Item Value Reference Range Interpretation Comments Basophils (test code = 0.7 See_Comment [Aut omated message] The Basophils) system which ge nerated this result tra nsmitted reference range : <=1.0. The reference r kvng was not used to int erpret this result as normal/abnormal . [facility] HospitalRmumeiqNWIGHGTTZE9142-96-28 23:21:00 Test Item Value Reference Range Interpretation Comments Neutrophils # (test code = Neutrophils 4.0 1.5-8.1 #) [facility]WucuzssRNGXDQSBWB5302-11-98 23:21:00 Test Item Value Reference Range Interpretation Comments Lymphocytes # (test code = Lymphocytes 3.2 1.0-5.5 #) [facility] HospitalYthhkphWAVZBNTBVP4087-84-08 23:21:00 Test Item Value Reference Range Interpretation Comments Monocytes # (test code 0.5 See_Comment [Aut omated message] The = Monocytes #) system which generated this result tra nsmitted reference range : <=0.8. The reference r kvng was not used to int erpret this result as normal/abnormal . [facility] HospitalMkfylrdBNHTNAWOMW8310-31-17 23:21:00 Test Item Value Reference Range Interpretation Comments Eosinophils # (test code 0.2 See_Comment [A utomated message] The = Eosinophils #) system whic h generated this result tra nsmitted reference range : <=0.5. The reference r kvng was not used to int erpret this result as normal/abnormal . [facility] HospitalUljclflXWYTTUCMSQ6630-41-06 23:21:00 Test Item Value Reference Range Interpretation Comments Basophils # (test code 0.1 See_Comment [Aut omated message] The = Basophils #) system which generated this result tra nsmitted reference range : <=0.2. The reference r kvng was not used to int erpret this result as normal/abnormal . [facility]ARD[facility] MFMNCDU3945-88-13 23:21:00 Test Item Value Reference Range Interpretation Comments Troponin-I (test code no gt See_Comment [Auto mated message] The = Troponin-I) system which g enerated this result transmit katerin reference range : <=0.40. The reference r kvng was not used to interpr et this result as carlita l/abnormal. [place] 644980-03-03 23:21:00 Test Item Value Reference Range Interpretation Comments Glucose Lvl (test code = Glucose Lvl) 87 70-99 [place] 644980-03-03 23:21:00 Test Item Value Reference Range Interpretation Comments BUN (test code = BUN) 17 7-22 [facility]2020-03-03 23:21:00 Test Item Value Reference Range Interpretation Comments Creatinine Lvl (test code = Creatinine 0.87 0.50-1.40 Lvl) [facility]2020-03-03 23:21:00 Test Item Value Reference Range Interpretation Comments Sodium Lvl (test code = Sodium Lvl) 139 135-145 [facility]Digital RoyaltyER[place] [address]UJBXR2478-98-92 23:21:00 Test Item Value Reference Range Interpretation Comments Potassium Lvl (test code = Potassium 3.8 3.5-5.1 Lvl) [facility]2020-03-03 23:21:00 Test Item Value Reference Range Interpretation Comments Chloride Lvl (test code = Chloride Lvl) 107 95-109 [place] 644980-03-03 23:21:00 Test Item Value Reference Range Interpretation Comments CO2 (test code = CO2) 27 24-32 [facility]2020-03-03 23:21:00 Test Item Value Reference Range Interpretation Comments Calcium Lvl (test code = Calcium Lvl) 9.1 8.5-10.5 [facility]2020-03-03 23:21:00 Test Item Value Reference Range Interpretation Comments AGAP (test code = AGAP) 8.8 10.0-20.0 [place] 644980-03-03 23:21:00 Test Item Value Reference Range Interpretation Comments eGFR (test code = eGFR) 122 [place] 050390-03-03 23:21:00 Test Item Value Reference Range Interpretation Comments WBC (test code = WBC) 7.8 3.7-10.4 [place] [address]-03-03 23:21:00 Test Item Value Reference Range Interpretation Comments RBC (test code = RBC) 4.54 4.70-6.10 [place] [address]-03-03 23:21:00 Test Item Value Reference Range Interpretation Comments Hgb (test code = Hgb) 13.6 14.0-18.0 [facility]viewDwhhhzdJXOEHRVRDO7627-79-76 23:21:00 Test Item Value Reference Range Interpretation Comments Hct (test code = Hct) 39.2 42.0-54.0 [facility]viewCynnpyaCNZWEUUCHV2540-78-38 23:21:00 Test Item Value Reference Range Interpretation Comments MCV (test code = MCV) 86.4 80.0-94.0 [facility]viewPivwxvnIHNCVBQVMU1561-54-97 23:21:00 Test Item Value Reference Range Interpretation Comments MCH (test code = MCH) 29.9 pg 27.0-31.0 [facility]viewEqijidjPKRJIVYJUQ5863-50-59 23:21:00 Test Item Value Reference Range Interpretation Comments MCHC (test code = MCHC) 34.6 32.0-36.0 [facility] LongviewZhmzkuxQVBWQMDZTZ2573-21-08 23:21:00 Test Item Value Reference Range Interpretation Comments RDW (test code = RDW) 14.2 11.5-14.5 [facility] LongviewJpolotaNTEYBMTJJP9712-75-88 23:21:00 Test Item Value Reference Range Interpretation Comments Platelet (test code = Platelet) 268 133-450 [facility] LongviewUfmnnboDDQGJJGMRG3573-43-98 23:21:00 Test Item Value Reference Range Interpretation Comments MPV (test code = MPV) 6.3 7.4-10.4 [place] [address]-03-03 23:21:00 Test Item Value Reference Range Interpretation Comments D-Dimer (test code = D-Dimer) 1.01 [facility]viewKwbvpdxTFAWLVNJBL4344-92-07 23:21:00 Test Item Value Reference Range Interpretation Comments Segs (test code = Segs) 50.7 45.0-75.0 [place] 050390-03-03 23:21:00 Test Item Value Reference Range Interpretation Comments Lymphocytes (test code = Lymphocytes) 40.5 20.0-40.0 [place] [address]-03-03 23:21:00 Test Item Value Reference Range Interpretation Comments Monocytes (test code = Monocytes) 6.1 2.0-12.0 [place] [address]-03-03 23:21:00 Test Item Value Reference Range Interpretation Comments Eosinophils (test code = 2.0 See_Comment [A utomated message] The Eosinophils) system which ge nerated this result tra nsmitted reference range : <=4.0. The reference r kvng was not used to int erpret this result as normal/abnormal . [facility] HospitalTumhehvCTEWNFCMTE7511-63-16 23:21:00 Test Item Value Reference Range Interpretation Comments Basophils (test code = 0.7 See_Comment [Aut omated message] The Basophils) system which ge nerated this result tra nsmitted reference range : <=1.0. The reference r kvng was not used to int erpret this result as normal/abnormal . [facility] HospitalFxzxouwPVPPKHYDMD4015-17-10 23:21:00 Test Item Value Reference Range Interpretation Comments Neutrophils # (test code = Neutrophils 4.0 1.5-8.1 #) [facility] HospitalPzjkyhmECBWFYOPTQ8061-42-13 23:21:00 Test Item Value Reference Range Interpretation Comments Lymphocytes # (test code = Lymphocytes 3.2 1.0-5.5 #) [facility]viewQfgyudkQELWPDNIFE8100-51-98 23:21:00 Test Item Value Reference Range Interpretation Comments Monocytes # (test code 0.5 See_Comment [Aut omated message] The = Monocytes #) system which generated this result tra nsmitted reference range : <=0.8. The reference r kvng was not used to int erpret this result as normal/abnormal . [facility] HospitalBlygguiACRQRCHTGJ3701-37-76 23:21:00 Test Item Value Reference Range Interpretation Comments Eosinophils # (test code 0.2 See_Comment [A utomated message] The = Eosinophils #) system whic h generated this result tra nsmitted reference range : <=0.5. The reference r kvng was not used to int erpret this result as normal/abnormal . [facility] HospitalJnystdnVRJBZNGQSH0809-23-13 23:21:00 Test Item Value Reference Range Interpretation Comments Basophils # (test code 0.1 See_Comment [Aut omated message] The = Basophils #) system which generated this result tra nsmitted reference range : <=0.2. The reference r kvng was not used to int erpret this result as normal/abnormal . [facility] LakeCARDIAC [id number] 23:21:00 Test Item Value Reference Range Interpretation Comments Troponin-I (test code no gt See_Comment [Auto mated message] The = Troponin-I) system which g enerated this result transmit katerin reference range : <=0.40. The reference r kvng was not used to interpr et this result as carlita l/abnormal. [place] 644980-03-03 23:21:00 Test Item Value Reference Range Interpretation Comments Glucose Lvl (test code = Glucose Lvl) 87 70-99 [place] [address]-03-03 23:21:00 Test Item Value Reference Range Interpretation Comments BUN (test code = BUN) 17 7-22 [place] [address]-03-03 23:21:00 Test Item Value Reference Range Interpretation Comments Creatinine Lvl (test code = Creatinine 0.87 0.50-1.40 Lvl) [place] [address]-03-03 23:21:00 Test Item Value Reference Range Interpretation Comments Sodium Lvl (test code = Sodium Lvl) 139 135-145 [place] 644980-03-03 23:21:00 Test Item Value Reference Range Interpretation Comments Potassium Lvl (test code = Potassium 3.8 3.5-5.1 Lvl) [place] 644980-03-03 23:21:00 Test Item Value Reference Range Interpretation Comments Chloride Lvl (test code = Chloride Lvl) 107 95-109 [place] [address]-03-03 23:21:00 Test Item Value Reference Range Interpretation Comments CO2 (test code = CO2) 27 24-32 [facility]2020-03-03 23:21:00 Test Item Value Reference Range Interpretation Comments Calcium Lvl (test code = Calcium Lvl) 9.1 8.5-10.5 [place] 644980-03-03 23:21:00 Test Item Value Reference Range Interpretation Comments AGAP (test code = AGAP) 8.8 10.0-20.0 [place] [address]-03-03 23:21:00 Test Item Value Reference Range Interpretation Comments eGFR (test code = eGFR) 122 [place] 050390-03-03 23:21:00 Test Item Value Reference Range Interpretation Comments WBC (test code = WBC) 7.8 3.7-10.4 [place] [address]-03-03 23:21:00 Test Item Value Reference Range Interpretation Comments RBC (test code = RBC) 4.54 4.70-6.[address]03-03 23:21:00 Test Item Value Reference Range Interpretation Comments Hgb (test code = Hgb) 13.6 14.0-18.0 [facility]viewYwcxzekJNPBISUGIZ0918-25-61 23:21:00 Test Item Value Reference Range Interpretation Comments Hct (test code = Hct) 39.2 42.0-54.0 [facility]viewEtzgwuhDMWWAWVCLT6793-25-29 23:21:00 Test Item Value Reference Range Interpretation Comments MCV (test code = MCV) 86.4 80.0-94.0 [facility] LongviewIkvtwfbMJNMQTXLTH7397-25-28 23:21:00 Test Item Value Reference Range Interpretation Comments MCH (test code = MCH) 29.9 pg 27.0-31.0 [facility]viewGpsxhswZYEEUJCIYQ0163-67-20 23:21:00 Test Item Value Reference Range Interpretation Comments MCHC (test code = MCHC) 34.6 32.0-36.0 [facility] LongviewTygoginZJOJAGGGOK6361-24-90 23:21:00 Test Item Value Reference Range Interpretation Comments RDW (test code = RDW) 14.2 11.5-14.5 [facility] LongviewRwahssiVKJEBHHCAY8527-45-99 23:21:00 Test Item Value Reference Range Interpretation Comments Platelet (test code = Platelet) 268 133-450 [facility] LongviewNovysdvXNCGTJWTDK6446-01-04 23:21:00 Test Item Value Reference Range Interpretation Comments MPV (test code = MPV) 6.3 7.4-10.4 [facility]viewOeseyfqIJJCVOGPMH9767-85-86 23:21:00 Test Item Value Reference Range Interpretation Comments D-Dimer (test code = D-Dimer) 1.01 [place] [address]-03-03 23:21:00 Test Item Value Reference Range Interpretation Comments Segs (test code = Segs) 50.7 45.0-75.0 [place] [address]-03-03 23:21:00 Test Item Value Reference Range Interpretation Comments Lymphocytes (test code = Lymphocytes) 40.5 20.0-40.0 [place] [address]-03-03 23:21:00 Test Item Value Reference Range Interpretation Comments Monocytes (test code = Monocytes) 6.1 2.0-12.0 [place] [address]-03-03 23:21:00 Test Item Value Reference Range Interpretation Comments Eosinophils (test code = 2.0 See_Comment [A utomated message] The Eosinophils) system which ge nerated this result tra nsmitted reference range : <=4.0. The reference r kvng was not used to int erpret this result as normal/abnormal . [facility]viewHfjkarbGQVBNSJKTZ6282-80-70 23:21:00 Test Item Value Reference Range Interpretation Comments Basophils (test code = 0.7 See_Comment [Aut omated message] The Basophils) system which ge nerated this result tra nsmitted reference range : <=1.0. The reference r kvng was not used to int erpret this result as normal/abnormal . [facility]viewCjzobgeMWYTLXOHZF1310-34-95 23:21:00 Test Item Value Reference Range Interpretation Comments Neutrophils # (test code = Neutrophils 4.0 1.5-8.1 #) [facility] LongviewHkpaabcZPAITUHLXS5568-60-03 23:21:00 Test Item Value Reference Range Interpretation Comments Lymphocytes # (test code = Lymphocytes 3.2 1.0-5.5 #) [facility] LongviewCfubinaNIEZQNZEPT1555-50-84 23:21:00 Test Item Value Reference Range Interpretation Comments Monocytes # (test code 0.5 See_Comment [Aut omated message] The = Monocytes #) system which generated this result tra nsmitted reference range : <=0.8. The reference r kvng was not used to int erpret this result as normal/abnormal . [facility] LongviewLcfivpeGUZWKZTEPB7749-35-26 23:21:00 Test Item Value Reference Range Interpretation Comments Eosinophils # (test code 0.2 See_Comment [A utomated message] The = Eosinophils #) system whic h generated this result tra nsmitted reference range : <=0.5. The reference r kvng was not used to int erpret this result as normal/abnormal . [facility]viewPxbwsxhRVBCIPACOY6900-91-63 23:21:00 Test Item Value Reference Range Interpretation Comments Basophils # (test code 0.1 See_Comment [Aut omated message] The = Basophils #) system which generated this result tra nsmitted reference range : <=0.2. The reference r kvng was not used to int erpret this result as normal/abnormal . [facility] LakeCARDIAC VEFCNLK2893-34-94 23:21:00 Test Item Value Reference Range Interpretation Comments Troponin-I (test code no gt See_Comment [Auto mated message] The = Troponin-I) system which g enerated this result transmit katerin reference range : <=0.40. The reference r kvng was not used to interpr et this result as carlita l/abnormal. [facility]2020-03-03 23:21:00 Test Item Value Reference Range Interpretation Comments Glucose Lvl (test code = Glucose Lvl) 87 70-99 [place] 644980-03-03 23:21:00 Test Item Value Reference Range Interpretation Comments BUN (test code = BUN) 17 7-22 [place] [address]-03-03 23:21:00 Test Item Value Reference Range Interpretation Comments Creatinine Lvl (test code = Creatinine 0.87 0.50-1.40 Lvl) [place] [address]-03-03 23:21:00 Test Item Value Reference Range Interpretation Comments Sodium Lvl (test code = Sodium Lvl) 139 135-145 [place] 644980-03-03 23:21:00 Test Item Value Reference Range Interpretation Comments Potassium Lvl (test code = Potassium 3.8 3.5-5.1 Lvl) [facility]2020-03-03 23:21:00 Test Item Value Reference Range Interpretation Comments Chloride Lvl (test code = Chloride Lvl) 107 95-109 [place] 644980-03-03 23:21:00 Test Item Value Reference Range Interpretation Comments CO2 (test code = CO2) 27 24-32 [place] 644980-03-03 23:21:00 Test Item Value Reference Range Interpretation Comments Calcium Lvl (test code = Calcium Lvl) 9.1 8.5-10.5 [place] 644980-03-03 23:21:00 Test Item Value Reference Range Interpretation Comments AGAP (test code = AGAP) 8.8 10.0-20.0 [facility] LakeWebsupport [id number] 23:21:00 Test Item Value Reference Range Interpretation Comments eGFR (test code = eGFR) 122 [place] [address]-03-03 23:21:00 Test Item Value Reference Range Interpretation Comments WBC (test code = WBC) 7.8 3.7-10.4 [place] [address]-03-03 23:21:00 Test Item Value Reference Range Interpretation Comments RBC (test code = RBC) 4.54 4.70-6.10 [facility] CenterHbtrniwNKSQFSRIFA8210-49-92 23:21:00 Test Item Value Reference Range Interpretation Comments Hgb (test code = Hgb) 13.6 14.0-18.0 [facility] LakeQienozuWALFBRVNBR7462-02-23 23:21:00 Test Item Value Reference Range Interpretation Comments Hct (test code = Hct) 39.2 42.0-54.0 [facility] CenterOkrszfuFPSEJGNKCP6184-29-71 23:21:00 Test Item Value Reference Range Interpretation Comments MCV (test code = MCV) 86.4 80.0-94.0 [facility] CenterTcgfeubRLZYKYSJDH8046-56-16 23:21:00 Test Item Value Reference Range Interpretation Comments MCH (test code = MCH) 29.9 pg 27.0-31.0 [facility] CenterDigital RoyaltyCARDIAC [id number] 23:21:00 Test Item Value Reference Range Interpretation Comments Troponin-I (test code no gt See_Comment [Auto mated message] The = Troponin-I) system which g enerated this result transmit katerin reference range : <=0.40. The reference r kvng was not used to interpr et this result as carlita l/abnormal. [facility] CenterNndpslvYQYMFBZQBY2520-01-27 23:21:00 Test Item Value Reference Range Interpretation Comments MCHC (test code = MCHC) 34.6 32.0-36.0 [facility] [place] [id number] 23:21:00 Test Item Value Reference Range Interpretation Comments Glucose Lvl (test code = Glucose Lvl) 87 70-99 [facility] CenterAgxkrvvGGXZTYWQYO1183-14-70 23:21:00 Test Item Value Reference Range Interpretation Comments RDW (test code = RDW) 14.2 11.5-14.5 [facility] [place] [id number] 23:21:00 Test Item Value Reference Range Interpretation Comments BUN (test code = BUN) 17 7-22 [facility] CenterMrblpmaBBMWJYSZSV1119-99-59 23:21:00 Test Item Value Reference Range Interpretation Comments Platelet (test code = Platelet) 268 133-450 [facility] CenterPersonics Labs [id number] 23:21:00 Test Item Value Reference Range Interpretation Comments Creatinine Lvl (test code = Creatinine 0.87 0.50-1.40 Lvl) [facility]viewHazxgcoLQGIAZPBWE2315-99-12 23:21:00 Test Item Value Reference Range Interpretation Comments MPV (test code = MPV) 6.3 7.4-10.4 [place] 644980-03-03 23:21:00 Test Item Value Reference Range Interpretation Comments Sodium Lvl (test code = Sodium Lvl) 139 135-145 [facility]viewGxwsduaEURPXEOOEG1921-62-23 23:21:00 Test Item Value Reference Range Interpretation Comments D-Dimer (test code = D-Dimer) 1.01 [place] 644980-03-03 23:21:00 Test Item Value Reference Range Interpretation Comments Potassium Lvl (test code = Potassium 3.8 3.5-5.1 Lvl) [facility]viewCqnregtHYVZESEMZY5292-11-64 23:21:00 Test Item Value Reference Range Interpretation Comments Segs (test code = Segs) 50.7 45.0-75.0 [place] 644980-03-03 23:21:00 Test Item Value Reference Range Interpretation Comments Chloride Lvl (test code = Chloride Lvl) 107 95-109 [facility] LongviewRswydolNIKXOIJQBU0726-66-98 23:21:00 Test Item Value Reference Range Interpretation Comments Lymphocytes (test code = Lymphocytes) 40.5 20.0-40.0 [place] [address]-03-03 23:21:00 Test Item Value Reference Range Interpretation Comments Monocytes (test code = Monocytes) 6.1 2.0-12.0 [facility]2020-03-03 23:21:00 Test Item Value Reference Range Interpretation Comments CO2 (test code = CO2) 27 24-32 [place] 644980-03-03 23:21:00 Test Item Value Reference Range Interpretation Comments Calcium Lvl (test code = Calcium Lvl) 9.1 8.5-10.5 [place] [address]-03-03 23:21:00 Test Item Value Reference Range Interpretation Comments Eosinophils (test code = 2.0 See_Comment [A utomated message] The Eosinophils) system which ge nerated this result tra nsmitted reference range : <=4.0. The reference r kvng was not used to int erpret this result as normal/abnormal . [facility] CenterPerson[facility] Labs [id number] 23:21:00 Test Item Value Reference Range Interpretation Comments AGAP (test code = AGAP) 8.8 10.0-20.0 [place] [address]-03-03 23:21:00 Test Item Value Reference Range Interpretation Comments Basophils (test code = 0.7 See_Comment [Aut omated message] The Basophils) system which ge nerated this result tra nsmitted reference range : <=1.0. The reference r kvng was not used to int erpret this result as normal/abnormal . [facility]2020-03-03 23:21:00 Test Item Value Reference Range Interpretation Comments eGFR (test code = eGFR) 122 [facility]viewOqmfwsyJIEYEGSBDJ0629-37-76 23:21:00 Test Item Value Reference Range Interpretation Comments Neutrophils # (test code = Neutrophils 4.0 1.5-8.1 #) [place] [address]-03-03 23:21:00 Test Item Value Reference Range Interpretation Comments WBC (test code = WBC) 7.8 3.7-10.4 [place] [address]-03-03 23:21:00 Test Item Value Reference Range Interpretation Comments Lymphocytes # (test code = Lymphocytes 3.2 1.0-5.5 #) [place] [address]-03-03 23:21:00 Test Item Value Reference Range Interpretation Comments RBC (test code = RBC) 4.54 4.70-6.10 [place] [address]-03-03 23:21:00 Test Item Value Reference Range Interpretation Comments Monocytes # (test code 0.5 See_Comment [Aut omated message] The = Monocytes #) system which generated this result tra nsmitted reference range : <=0.8. The reference r kvng was not used to int erpret this result as normal/abnormal . [place] [address]390-03-03 23:21:00 Test Item Value Reference Range Interpretation Comments Hgb (test code = Hgb) 13.6 14.0-18.0 [place] [address]-03-03 23:21:00 Test Item Value Reference Range Interpretation Comments Eosinophils # (test code 0.2 See_Comment [A utomated message] The = Eosinophils #) system whic h generated this result tra nsmitted reference range : <=0.5. The reference r kvng was not used to int erpret this result as normal/abnormal . [facility]opodjbCIEJHKJKLX3472-43-52 23:21:00 Test Item Value Reference Range Interpretation Comments Hct (test code = Hct) 39.2 42.0-54.0 [facility]viewQzojvrfJOBSIKMUHZ4555-68-67 23:21:00 Test Item Value Reference Range Interpretation Comments Basophils # (test code 0.1 See_Comment [Aut omated message] The = Basophils #) system which generated this result tra nsmitted reference range : <=0.2. The reference r kvng was not used to int erpret this result as normal/abnormal . [facility]viewIkxjrxkXZFCWJDAMC8071-59-32 23:21:00 Test Item Value Reference Range Interpretation Comments MCV (test code = MCV) 86.4 80.0-94.0 [facility]viewJkghveiPLQJIWDHNS1217-49-69 23:21:00 Test Item Value Reference Range Interpretation Comments MCH (test code = MCH) 29.9 pg 27.0-31.0 [facility]viewRxclbojZPBURKDATG0766-42-43 23:21:00 Test Item Value Reference Range Interpretation Comments MCHC (test code = MCHC) 34.6 32.0-36.0 [facility]viewTwuugqwSVSZGUMAFF9600-32-57 23:21:00 Test Item Value Reference Range Interpretation Comments RDW (test code = RDW) 14.2 11.5-14.5 [facility]viewTcgyvkfXNFKWKPJQO9276-61-73 23:21:00 Test Item Value Reference Range Interpretation Comments Platelet (test code = Platelet) 268 133-450 [facility]viewFtnfgwoUSTAPKTXUT5164-00-60 23:21:00 Test Item Value Reference Range Interpretation Comments MPV (test code = MPV) 6.3 7.4-10.4 [facility]viewLqzuzjnQKMLBYHZCN8863-65-31 23:21:00 Test Item Value Reference Range Interpretation Comments D-Dimer (test code = D-Dimer) 1.01 [facility]viewYqcinchUJAGJJCKXP9588-42-97 23:21:00 Test Item Value Reference Range Interpretation Comments Segs (test code = Segs) 50.7 45.0-75.0 [facility]viewJzjdguiXDWHDNNVLB9925-75-15 23:21:00 Test Item Value Reference Range Interpretation Comments Lymphocytes (test code = Lymphocytes) 40.5 20.0-40.0 [facility]viewXydsvzyXPDINLHPQL5419-54-07 23:21:00 Test Item Value Reference Range Interpretation Comments Monocytes (test code = Monocytes) 6.1 2.0-12.0 [place] [address]-03-03 23:21:00 Test Item Value Reference Range Interpretation Comments Eosinophils (test code = 2.0 See_Comment [A utomated message] The Eosinophils) system which ge nerated this result tra nsmitted reference range : <=4.0. The reference r kvng was not used to int erpret this result as normal/abnormal . [place] [address]-03-03 23:21:00 Test Item Value Reference Range Interpretation Comments Basophils (test code = 0.7 See_Comment [Aut omated message] The Basophils) system which ge nerated this result tra nsmitted reference range : <=1.0. The reference r kvng was not used to int erpret this result as normal/abnormal . [place] [address]-03-03 23:21:00 Test Item Value Reference Range Interpretation Comments Neutrophils # (test code = Neutrophils 4.0 1.5-8.1 #) [place] [address]-03-03 23:21:00 Test Item Value Reference Range Interpretation Comments Lymphocytes # (test code = Lymphocytes 3.2 1.0-5.5 #) [place] [address]-03-03 23:21:00 Test Item Value Reference Range Interpretation Comments Monocytes # (test code 0.5 See_Comment [Aut omated message] The = Monocytes #) system which generated this result tra nsmitted reference range : <=0.8. The reference r kvng was not used to int erpret this result as normal/abnormal . [place] [address]-03-03 23:21:00 Test Item Value Reference Range Interpretation Comments Eosinophils # (test code 0.2 See_Comment [A utomated message] The = Eosinophils #) system whic h generated this result tra nsmitted reference range : <=0.5. The reference r kvng was not used to int erpret this result as normal/abnormal . [place] [address]-03-03 23:21:00 Test Item Value Reference Range Interpretation Comments Basophils # (test code 0.1 See_Comment [Aut omated message] The = Basophils #) system which generated this result tra nsmitted reference range : <=0.2. The reference r kvng was not used to int erpret this result as normal/abnormal . [facility] RoyaltyCARDIAC [id number] 23:21:00 Test Item Value Reference Range Interpretation Comments Troponin-I (test code no gt See_Comment [Auto mated message] The = Troponin-I) system which g enerated this result transmit katerin reference range : <=0.40. The reference r kvng was not used to interpr et this result as carlita l/abnormal. [facility] [place] [id number] 23:21:00 Test Item Value Reference Range Interpretation Comments Glucose Lvl (test code = Glucose Lvl) 87 70-99 [facility] [place] [id number] 23:21:00 Test Item Value Reference Range Interpretation Comments BUN (test code = BUN) 17 7-22 [facility] [id number] 23:21:00 Test Item Value Reference Range Interpretation Comments Creatinine Lvl (test code = Creatinine 0.87 0.50-1.40 Lvl) [facility] [place] [id number] 23:21:00 Test Item Value Reference Range Interpretation Comments Sodium Lvl (test code = Sodium Lvl) 139 135-145 [facility] [place] [id number] 23:21:00 Test Item Value Reference Range Interpretation Comments Potassium Lvl (test code = Potassium 3.8 3.5-5.1 Lvl) [facility] [place] [id number] 23:21:00 Test Item Value Reference Range Interpretation Comments Chloride Lvl (test code = Chloride Lvl) 107 95-109 [facility] [id number] 23:21:00 Test Item Value Reference Range Interpretation Comments CO2 (test code = CO2) 27 24-32 [facility] [id number] 23:21:00 Test Item Value Reference Range Interpretation Comments Calcium Lvl (test code = Calcium Lvl) 9.1 8.5-10.5 [facility] [id number] 23:21:00 Test Item Value Reference Range Interpretation Comments AGAP (test code = AGAP) 8.8 10.0-20.0 [facility] [id number] 23:21:00 Test Item Value Reference Range Interpretation Comments eGFR (test code = eGFR) 122 [facility]viewRbouylqYYDWZJBTHQ0852-03-09 23:21:00 Test Item Value Reference Range Interpretation Comments WBC (test code = WBC) 7.8 3.7-10.4 [place] [address]390-03-03 23:21:00 Test Item Value Reference Range Interpretation Comments RBC (test code = RBC) 4.54 4.70-6.10 [facility]viewTfdfrtwPKOEFIUVOH7220-06-44 23:21:00 Test Item Value Reference Range Interpretation Comments Hgb (test code = Hgb) 13.6 14.0-18.0 [place] [address]-03-03 23:21:00 Test Item Value Reference Range Interpretation Comments Hct (test code = Hct) 39.2 42.0-54.0 [place] [address]-03-03 23:21:00 Test Item Value Reference Range Interpretation Comments MCV (test code = MCV) 86.4 80.0-94.0 [place] [address]-03-03 23:21:00 Test Item Value Reference Range Interpretation Comments MCH (test code = MCH) 29.9 pg 27.0-31.0 [place] [address]-03-03 23:21:00 Test Item Value Reference Range Interpretation Comments MCHC (test code = MCHC) 34.6 32.0-36.0 [facility]viewRbwexrgBBVIZTLKGK6270-77-59 23:21:00 Test Item Value Reference Range Interpretation Comments RDW (test code = RDW) 14.2 11.5-14.5 [facility]viewQrjzbcwVACMTRZWJH8350-20-85 23:21:00 Test Item Value Reference Range Interpretation Comments Platelet (test code = Platelet) 268 133-450 [facility] LongviewZwhlzdwIEULEUYFVQ8972-17-33 23:21:00 Test Item Value Reference Range Interpretation Comments MPV (test code = MPV) 6.3 7.4-10.4 [place] [address]-03-03 23:21:00 Test Item Value Reference Range Interpretation Comments D-Dimer (test code = D-Dimer) 1.01 [place] [address]390-03-03 23:21:00 Test Item Value Reference Range Interpretation Comments Segs (test code = Segs) 50.7 45.0-75.0 [place] [address]-03-03 23:21:00 Test Item Value Reference Range Interpretation Comments Lymphocytes (test code = Lymphocytes) 40.5 20.0-40.0 [facility]viewEzoslrpQUVNSLYQCA2275-59-78 23:21:00 Test Item Value Reference Range Interpretation Comments Monocytes (test code = Monocytes) 6.1 2.0-12.0 [facility] LongviewSfeohrpTHBOXGUVTD1510-43-75 23:21:00 Test Item Value Reference Range Interpretation Comments Eosinophils (test code = 2.0 See_Comment [A utomated message] The Eosinophils) system which ge nerated this result tra nsmitted reference range : <=4.0. The reference r kvng was not used to int erpret this result as normal/abnormal . [facility] LongviewUjqadlcEPFAPZKRHR8310-85-44 23:21:00 Test Item Value Reference Range Interpretation Comments Basophils (test code = 0.7 See_Comment [Aut omated message] The Basophils) system which ge nerated this result tra nsmitted reference range : <=1.0. The reference r kvng was not used to int erpret this result as normal/abnormal . [facility]viewMsfizpjULIZXZCJVE2637-18-89 23:21:00 Test Item Value Reference Range Interpretation Comments Neutrophils # (test code = Neutrophils 4.0 1.5-8.1 #) [facility] LongviewAljkeifRYDXYIDEPP3391-93-48 23:21:00 Test Item Value Reference Range Interpretation Comments Lymphocytes # (test code = Lymphocytes 3.2 1.0-5.5 #) [facility] LongviewCxslqtgRCQGPOIHUO4226-20-29 23:21:00 Test Item Value Reference Range Interpretation Comments Monocytes # (test code 0.5 See_Comment [Aut omated message] The = Monocytes #) system which generated this result tra nsmitted reference range : <=0.8. The reference r kvng was not used to int erpret this result as normal/abnormal . [facility] LongviewBuwderwARCQDATGFE3746-25-22 23:21:00 Test Item Value Reference Range Interpretation Comments Eosinophils # (test code 0.2 See_Comment [A utomated message] The = Eosinophils #) system whic h generated this result tra nsmitted reference range : <=0.5. The reference r kvng was not used to int erpret this result as normal/abnormal . [facility] LongviewMymydzyZILLXFKFIN6502-92-58 23:21:00 Test Item Value Reference Range Interpretation Comments Basophils # (test code 0.1 See_Comment [Aut omated message] The = Basophils #) system which generated this result tra nsmitted reference range : <=0.2. The reference r kvng was not used to int erpret this result as normal/abnormal . [facility] ComputeNextCARDIAC [id number] 23:21:00 Test Item Value Reference Range Interpretation Comments Troponin-I (test code no gt See_Comment [Auto mated message] The = Troponin-I) system which g enerated this result transmit katerin reference range : <=0.40. The reference r kvng was not used to interpr et this result as carlita l/abnormal. [employer] [id number] 23:21:00 Test Item Value Reference Range Interpretation Comments Glucose Lvl (test code = Glucose Lvl) 87 70-99 [facility] [place] [id number] 23:21:00 Test Item Value Reference Range Interpretation Comments BUN (test code = BUN) 17 7-22 [facility] [place] [id number] 23:21:00 Test Item Value Reference Range Interpretation Comments Creatinine Lvl (test code = Creatinine 0.87 0.50-1.40 Lvl) [facility] [place] [id number] 23:21:00 Test Item Value Reference Range Interpretation Comments Sodium Lvl (test code = Sodium Lvl) 139 135-145 [facility] [place] [id number] 23:21:00 Test Item Value Reference Range Interpretation Comments Potassium Lvl (test code = Potassium 3.8 3.5-5.1 Lvl) [facility] [id number] 23:21:00 Test Item Value Reference Range Interpretation Comments Chloride Lvl (test code = Chloride Lvl) 107 95-109 [facility] [place] [id number] 23:21:00 Test Item Value Reference Range Interpretation Comments CO2 (test code = CO2) 27 24-32 [facility] [place] [id number] 23:21:00 Test Item Value Reference Range Interpretation Comments Calcium Lvl (test code = Calcium Lvl) 9.1 8.5-10.5 [facility] [id number] 23:21:00 Test Item Value Reference Range Interpretation Comments AGAP (test code = AGAP) 8.8 10.0-20.0 [facility]2020-03-03 23:21:00 Test Item Value Reference Range Interpretation Comments eGFR (test code = eGFR) 122 [facility] LakeGxysmhhRTNCBQEURV3840-86-35 23:21:00 Test Item Value Reference Range Interpretation Comments WBC (test code = WBC) 7.8 3.7-10.4 [facility]QTDCJQFLLO9826[facility]55 23:21:00 Test Item Value Reference Range Interpretation Comments RBC (test code = RBC) 4.54 4.70-6.10 [facility] LakeXhqrlhoDQCTJZVHZG8556-62-86 23:21:00 Test Item Value Reference Range Interpretation Comments Hgb (test code = Hgb) 13.6 14.0-18.0 [facility] LakeNfgswloRNOYMCKUWU8709-62-77 23:21:00 Test Item Value Reference Range Interpretation Comments Hct (test code = Hct) 39.2 42.0-54.0 [facility]WoahiicXWFWVLKIAV3800-55-45 23:21:00 Test Item Value Reference Range Interpretation Comments MCV (test code = MCV) 86.4 80.0-94.0 [facility] LakeWzrhjpaQZOEDFYVVF5849-57-61 23:21:00 Test Item Value Reference Range Interpretation Comments MCH (test code = MCH) 29.9 pg 27.0-31.0 [facility] LakeEjbsesvZYQVYTIEUS5848-62-06 23:21:00 Test Item Value Reference Range Interpretation Comments MCHC (test code = MCHC) 34.6 32.0-36.0 [facility] LakeHfyyplnWCGCVQNAIJ0089-76-53 23:21:00 Test Item Value Reference Range Interpretation Comments RDW (test code = RDW) 14.2 11.5-14.5 [facility]viewIrkxiofNVMTLDIVQV3189-69-82 23:21:00 Test Item Value Reference Range Interpretation Comments Platelet (test code = Platelet) 268 133-450 [facility] LakeZknlkzfRISWFSTKDN6962-73-41 23:21:00 Test Item Value Reference Range Interpretation Comments MPV (test code = MPV) 6.3 7.4-10.4 [facility]viewIsduoaeOLDOMSPAUY9327-49-31 23:21:00 Test Item Value Reference Range Interpretation Comments D-Dimer (test code = D-Dimer) 1.01 [facility]viewSngahadCJHIOFNJTA6400-05-21 23:21:00 Test Item Value Reference Range Interpretation Comments Segs (test code = Segs) 50.7 45.0-75.0 [facility]viewKrdxdobADVECSHGNW3316-38-79 23:21:00 Test Item Value Reference Range Interpretation Comments Lymphocytes (test code = Lymphocytes) 40.5 20.0-40.0 [facility]viewRrbqddxHJWDWGHCPW5619-11-08 23:21:00 Test Item Value Reference Range Interpretation Comments Monocytes (test code = Monocytes) 6.1 2.0-12.0 [facility]viewRwltuusUGMIGQTQZM0784-49-14 23:21:00 Test Item Value Reference Range Interpretation Comments Eosinophils (test code = 2.0 See_Comment [A utomated message] The Eosinophils) system which ge nerated this result tra nsmitted reference range : <=4.0. The reference r kvng was not used to int erpret this result as normal/abnormal . [place] [address]390-03-03 23:21:00 Test Item Value Reference Range Interpretation Comments Basophils (test code = 0.7 See_Comment [Aut omated message] The Basophils) system which ge nerated this result tra nsmitted reference range : <=1.0. The reference r kvng was not used to int erpret this result as normal/abnormal . [facility]viewXezwurpKILMUUKKEA2605-59-93 23:21:00 Test Item Value Reference Range Interpretation Comments Neutrophils # (test code = Neutrophils 4.0 1.5-8.1 #) [facility]viewSivnaxiUDAZOJKEBS5283-46-90 23:21:00 Test Item Value Reference Range Interpretation Comments Lymphocytes # (test code = Lymphocytes 3.2 1.0-5.5 #) [facility]viewXvesaczJXANDUUNHS2937-05-89 23:21:00 Test Item Value Reference Range Interpretation Comments Monocytes # (test code 0.5 See_Comment [Aut omated message] The = Monocytes #) system which generated this result tra nsmitted reference range : <=0.8. The reference r kvng was not used to int erpret this result as normal/abnormal . [facility]viewOuheqgeSRPPGBPTWY3666-84-36 23:21:00 Test Item Value Reference Range Interpretation Comments Eosinophils # (test code 0.2 See_Comment [A utomated message] The = Eosinophils #) system whic h generated this result tra nsmitted reference range : <=0.5. The reference r kvng was not used to int erpret this result as normal/abnormal . [facility]OvdaxsuTVPNJOUEAO2367-12-05 23:21:00 Test Item Value Reference Range Interpretation Comments Basophils # (test code 0.1 See_Comment [Aut omated message] The = Basophils #) system which generated this result tra nsmitted reference range : <=0.2. The reference r kvng was not used to int erpret this result as normal/abnormal . [facility] CenterDigital RoyaltyCARDIAC [id number] 23:21:00 Test Item Value Reference Range Interpretation Comments Troponin-I (test code no gt See_Comment [Auto mated message] The = Troponin-I) system which g enerated this result transmit katerin reference range : <=0.40. The reference r kvng was not used to interpr et this result as carlita l/abnormal. [facility] [place] [id number] 23:21:00 Test Item Value Reference Range Interpretation Comments Glucose Lvl (test code = Glucose Lvl) 87 70-99 [facility] [place] [id number] 23:21:00 Test Item Value Reference Range Interpretation Comments BUN (test code = BUN) 17 7-22 [facility] [place] [id number] 23:21:00 Test Item Value Reference Range Interpretation Comments Creatinine Lvl (test code = Creatinine 0.87 0.50-1.40 Lvl) [facility] [place] [id number] 23:21:00 Test Item Value Reference Range Interpretation Comments Sodium Lvl (test code = Sodium Lvl) 139 135-145 [facility] [place] [id number] 23:21:00 Test Item Value Reference Range Interpretation Comments Potassium Lvl (test code = Potassium 3.8 3.5-5.1 Lvl) [facility] [place] [id number] 23:21:00 Test Item Value Reference Range Interpretation Comments Chloride Lvl (test code = Chloride Lvl) 107 95-109 [facility] [place] [id number] 23:21:00 Test Item Value Reference Range Interpretation Comments CO2 (test code = CO2) 27 24-32 [facility] [place] [id number] 23:21:00 Test Item Value Reference Range Interpretation Comments Calcium Lvl (test code = Calcium Lvl) 9.1 8.5-10.5 [facility] [place] [id number] 23:21:00 Test Item Value Reference Range Interpretation Comments AGAP (test code = AGAP) 8.8 10.0-20.0 [facility] [id number] 23:21:00 Test Item Value Reference Range Interpretation Comments eGFR (test code = eGFR) 122 [facility] LakeGpyyqtcUBRADVDKID6226-90-38 23:21:00 Test Item Value Reference Range Interpretation Comments WBC (test code = WBC) 7.8 3.7-10.4 [facility] LakeRvicglkDEPOLFVAQF0129-66-29 23:21:00 Test Item Value Reference Range Interpretation Comments RBC (test code = RBC) 4.54 4.70-6.10 [facility] LakeHakkgaeUFFHKSERVD7074-17-63 23:21:00 Test Item Value Reference Range Interpretation Comments Hgb (test code = Hgb) 13.6 14.0-18.0 [facility] LakeByhojltNDHWOPAXXW3782-57-28 23:21:00 Test Item Value Reference Range Interpretation Comments Hct (test code = Hct) 39.2 42.0-54.0 [facility]AtjwznuQXBXGMLMYS8932-70-38 23:21:00 Test Item Value Reference Range Interpretation Comments MCV (test code = MCV) 86.4 80.0-94.0 [facility] LakePbcliniUCDRQUJKYM5492-80-35 23:21:00 Test Item Value Reference Range Interpretation Comments MCH (test code = MCH) 29.9 pg 27.0-31.0 [facility] LakeIpxwnnvOZVKXJGUCH0647-10-01 23:21:00 Test Item Value Reference Range Interpretation Comments MCHC (test code = MCHC) 34.6 32.0-36.0 [facility] LakeGnazogeIDOHLFUCTI7128-16-82 23:21:00 Test Item Value Reference Range Interpretation Comments RDW (test code = RDW) 14.2 11.5-14.5 [facility] LakeBuqhgceGHQTWYQNFZ0019-18-24 23:21:00 Test Item Value Reference Range Interpretation Comments Platelet (test code = Platelet) 268 133-450 [facility] LakeHuwbdtxUMIRGTLZCZ9582-79-26 23:21:00 Test Item Value Reference Range Interpretation Comments MPV (test code = MPV) 6.3 7.4-10.4 [facility] LakeTbwedkoUMJOABCMZZ4961-89-85 23:21:00 Test Item Value Reference Range Interpretation Comments D-Dimer (test code = D-Dimer) 1.01 [place] [address]-03-03 23:21:00 Test Item Value Reference Range Interpretation Comments Segs (test code = Segs) 50.7 45.0-75.0 [place] [address]-03-03 23:21:00 Test Item Value Reference Range Interpretation Comments Lymphocytes (test code = Lymphocytes) 40.5 20.0-40.0 [place] [address]-03-03 23:21:00 Test Item Value Reference Range Interpretation Comments Monocytes (test code = Monocytes) 6.1 2.0-12.0 [place] [address]-03-03 23:21:00 Test Item Value Reference Range Interpretation Comments Eosinophils (test code = 2.0 See_Comment [A utomated message] The Eosinophils) system which ge nerated this result tra nsmitted reference range : <=4.0. The reference r kvng was not used to int erpret this result as normal/abnormal . [place] [address]-03-03 23:21:00 Test Item Value Reference Range Interpretation Comments Basophils (test code = 0.7 See_Comment [Aut omated message] The Basophils) system which ge nerated this result tra nsmitted reference range : <=1.0. The reference r kvng was not used to int erpret this result as normal/abnormal . [place] [address]-03-03 23:21:00 Test Item Value Reference Range Interpretation Comments Neutrophils # (test code = Neutrophils 4.0 1.5-8.1 #) [place] [address]-03-03 23:21:00 Test Item Value Reference Range Interpretation Comments Lymphocytes # (test code = Lymphocytes 3.2 1.0-5.5 #) [place] [address]-03-03 23:21:00 Test Item Value Reference Range Interpretation Comments Monocytes # (test code 0.5 See_Comment [Aut omated message] The = Monocytes #) system which generated this result tra nsmitted reference range : <=0.8. The reference r kvng was not used to int erpret this result as normal/abnormal . [place] [address]-03-03 23:21:00 Test Item Value Reference Range Interpretation Comments Eosinophils # (test code 0.2 See_Comment [A utomated message] The = Eosinophils #) system whic h generated this result tra nsmitted reference range : <=0.5. The reference r kvng was not used to int erpret this result as normal/abnormal . [facility] Cent[id number] 23:21:00 Test Item Value Reference Range Interpretation Comments Basophils # (test code 0.1 See_Comment [Aut omated message] The = Basophils #) system which generated this result tra nsmitted reference range : <=0.2. The reference r kvng was not used to int erpret this result as normal/abnormal . [facility] CenterDigital RoyaltyCARDIAC [id number] 23:21:00 Test Item Value Reference Range Interpretation Comments Troponin-I (test code no gt See_Comment [Auto mated message] The = Troponin-I) system which g enerated this result transmit katerin reference range : <=0.40. The reference r kvng was not used to interpr et this result as carlita l/abnormal. [facility] [id number] 23:21:00 Test Item Value Reference Range Interpretation Comments Glucose Lvl (test code = Glucose Lvl) 87 70-99 [facility] [id number] 23:21:00 Test Item Value Reference Range Interpretation Comments BUN (test code = BUN) 17 7-22 [facility] [id number] 23:21:00 Test Item Value Reference Range Interpretation Comments Creatinine Lvl (test code = Creatinine 0.87 0.50-1.40 Lvl) [facility] [id number] 23:21:00 Test Item Value Reference Range Interpretation Comments Sodium Lvl (test code = Sodium Lvl) 139 135-145 [facility] [id number] 23:21:00 Test Item Value Reference Range Interpretation Comments Potassium Lvl (test code = Potassium 3.8 3.5-5.1 Lvl) [facility] [id number] 23:21:00 Test Item Value Reference Range Interpretation Comments Chloride Lvl (test code = Chloride Lvl) 107 95-109 [facility] [id number] 23:21:00 Test Item Value Reference Range Interpretation Comments CO2 (test code = CO2) 27 24-32 [facility] [id number] 23:21:00 Test Item Value Reference Range Interpretation Comments Calcium Lvl (test code = Calcium Lvl) 9.1 8.5-10.5 [facility]2020-03-03 23:21:00 Test Item Value Reference Range Interpretation Comments AGAP (test code = AGAP) 8.8 10.0-20.0 [facility]2020-03-03 23:21:00 Test Item Value Reference Range Interpretation Comments eGFR (test code = eGFR) 122 [facility]GebyjcbBVGCIPWEZB0828-29-44 23:21:00 Test Item Value Reference Range Interpretation Comments WBC (test code = WBC) 7.8 3.7-10.4 [place] 050390-03-03 23:21:00 Test Item Value Reference Range Interpretation Comments RBC (test code = RBC) 4.54 4.70-6.10 [place] [address]-03-03 23:21:00 Test Item Value Reference Range Interpretation Comments Hgb (test code = Hgb) 13.6 14.0-18.0 [facility]viewLoyicpcXZAJRFSNDQ2475-55-24 23:21:00 Test Item Value Reference Range Interpretation Comments Hct (test code = Hct) 39.2 42.0-54.0 [place] [address]-03-03 23:21:00 Test Item Value Reference Range Interpretation Comments MCV (test code = MCV) 86.4 80.0-94.0 [place] [address]-03-03 23:21:00 Test Item Value Reference Range Interpretation Comments MCH (test code = MCH) 29.9 pg 27.0-31.0 [place] 050390-03-03 23:21:00 Test Item Value Reference Range Interpretation Comments MCHC (test code = MCHC) 34.6 32.0-36.0 [place] 050390-03-03 23:21:00 Test Item Value Reference Range Interpretation Comments RDW (test code = RDW) 14.2 11.5-14.5 [place] [address]-03-03 23:21:00 Test Item Value Reference Range Interpretation Comments Platelet (test code = Platelet) 268 133-450 [place] 050390-03-03 23:21:00 Test Item Value Reference Range Interpretation Comments MPV (test code = MPV) 6.3 7.4-10.4 [place] 050390-03-03 23:21:00 Test Item Value Reference Range Interpretation Comments D-Dimer (test code = D-Dimer) 1.01 [facility]viewSrhbjdcNTFVQPFJQY5795-56-63 23:21:00 Test Item Value Reference Range Interpretation Comments Segs (test code = Segs) 50.7 45.0-75.0 [place] [address]-03-03 23:21:00 Test Item Value Reference Range Interpretation Comments Lymphocytes (test code = Lymphocytes) 40.5 20.0-40.0 [place] [address]-03-03 23:21:00 Test Item Value Reference Range Interpretation Comments Monocytes (test code = Monocytes) 6.1 2.0-12.0 [place] [address]-03-03 23:21:00 Test Item Value Reference Range Interpretation Comments Eosinophils (test code = 2.0 See_Comment [A utomated message] The Eosinophils) system which ge nerated this result tra nsmitted reference range : <=4.0. The reference r kvng was not used to int erpret this result as normal/abnormal . [id number] 23:21:00 Test Item Value Reference Range Interpretation Comments Basophils (test code = 0.7 See_Comment [Aut omated message] The Basophils) system which ge nerated this result tra nsmitted reference range : <=1.0. The reference r kvng was not used to int erpret this result as normal/abnormal . [facility] LongviewYdyszkeKSHFTUUKIE6473-14-82 23:21:00 Test Item Value Reference Range Interpretation Comments Neutrophils # (test code = Neutrophils 4.0 1.5-8.1 #) [facility]viewRzfvthtAOJGUZICSD5739-12-00 23:21:00 Test Item Value Reference Range Interpretation Comments Lymphocytes # (test code = Lymphocytes 3.2 1.0-5.5 #) [place] [address]-03-03 23:21:00 Test Item Value Reference Range Interpretation Comments Monocytes # (test code 0.5 See_Comment [Aut omated message] The = Monocytes #) system which generated this result tra nsmitted reference range : <=0.8. The reference r kvng was not used to int erpret this result as normal/abnormal . [place] 050390-03-03 23:21:00 Test Item Value Reference Range Interpretation Comments Eosinophils # (test code 0.2 See_Comment [A utomated message] The = Eosinophils #) system whic h generated this result tra nsmitted reference range : <=0.5. The reference r kvng was not used to int erpret this result as normal/abnormal . [facility] LnqjjzxJBQPRIQAZG6667-30-05 23:21:00 Test Item Value Reference Range Interpretation Comments Basophils # (test code 0.1 See_Comment [Aut omated message] The = Basophils #) system which generated this result tra nsmitted reference range : <=0.2. The reference r kvng was not used to int erpret this result as normal/abnormal . [facility] [employer] [id number] 23:21:00 Test Item Value Reference Range Interpretation Comments Troponin-I (test code no gt See_Comment [Auto mated message] The = Troponin-I) system which g enerated this result transmit katerin reference range : <=0.40. The reference r kvng was not used to interpr et this result as carlita l/abnormal. [employer]2020-03-03 23:21:00 Test Item Value Reference Range Interpretation Comments Glucose Lvl (test code = Glucose Lvl) 87 70-99 [facility] [employer]2020-03-03 23:21:00 Test Item Value Reference Range Interpretation Comments BUN (test code = BUN) 17 7-22 [facility] [employer]2020-03-03 23:21:00 Test Item Value Reference Range Interpretation Comments Creatinine Lvl (test code = Creatinine 0.87 0.50-1.40 Lvl) [employer]2020-03-03 23:21:00 Test Item Value Reference Range Interpretation Comments Sodium Lvl (test code = Sodium Lvl) 139 135-145 [facility] [employer]2020-03-03 23:21:00 Test Item Value Reference Range Interpretation Comments Potassium Lvl (test code = Potassium 3.8 3.5-5.1 Lvl) [employer]2020-03-03 23:21:00 Test Item Value Reference Range Interpretation Comments Chloride Lvl (test code = Chloride Lvl) 107 95-109 [facility] [employer]2020-03-03 23:21:00 Test Item Value Reference Range Interpretation Comments CO2 (test code = CO2) 27 24-32 [facility] [employer]2020-03-03 23:21:00 Test Item Value Reference Range Interpretation Comments Troponin-I (test code no gt See_Comment [Auto mated message] The = Troponin-I) system which g enerated this result transmit katerin reference range : <=0.40. The reference r kvng was not used to interpr et this result as carlita l/abnormal. [facility] [place] [id number] 23:21:00 Test Item Value Reference Range Interpretation Comments Calcium Lvl (test code = Calcium Lvl) 9.1 8.5-10.5 [facility] [id number] 23:21:00 Test Item Value Reference Range Interpretation Comments Glucose Lvl (test code = Glucose Lvl) 87 70-99 [facility] [id number] 23:21:00 Test Item Value Reference Range Interpretation Comments AGAP (test code = AGAP) 8.8 10.0-20.0 [facility] [place] [id number] 23:21:00 Test Item Value Reference Range Interpretation Comments BUN (test code = BUN) 17 7-22 [facility] [id number] 23:21:00 Test Item Value Reference Range Interpretation Comments eGFR (test code = eGFR) 122 [facility] [place] [id number] 23:21:00 Test Item Value Reference Range Interpretation Comments Creatinine Lvl (test code = Creatinine 0.87 0.50-1.40 Lvl) [facility] CenterOttkybxHBQAPHXBIN3082-02-29 23:21:00 Test Item Value Reference Range Interpretation Comments WBC (test code = WBC) 7.8 3.7-10.4 [facility] [id number] 23:21:00 Test Item Value Reference Range Interpretation Comments Sodium Lvl (test code = Sodium Lvl) 139 135-145 [facility] CenterAiffrevWXNEDEDZAY3758-64-77 23:21:00 Test Item Value Reference Range Interpretation Comments RBC (test code = RBC) 4.54 4.70-6.10 [facility] [place] [id number] 23:21:00 Test Item Value Reference Range Interpretation Comments Potassium Lvl (test code = Potassium 3.8 3.5-5.1 Lvl) [facility] CenterUzodxbfVVRFFPIMSV3605-97-22 23:21:00 Test Item Value Reference Range Interpretation Comments Hgb (test code = Hgb) 13.6 14.0-18.0 [facility]2020-03-03 23:21:00 Test Item Value Reference Range Interpretation Comments Chloride Lvl (test code = Chloride Lvl) 107 95-109 [facility]viewRbwcjasNJKVVSEJTS2446-00-72 23:21:00 Test Item Value Reference Range Interpretation Comments Hct (test code = Hct) 39.2 42.0-54.0 [facility]2020-03-03 23:21:00 Test Item Value Reference Range Interpretation Comments CO2 (test code = CO2) 27 24-32 [facility] LongviewDvmpugzJSJREQPCZY3848-11-43 23:21:00 Test Item Value Reference Range Interpretation Comments MCV (test code = MCV) 86.4 80.0-94.0 [facility]2020-03-03 23:21:00 Test Item Value Reference Range Interpretation Comments Calcium Lvl (test code = Calcium Lvl) 9.1 8.5-10.5 [facility]viewKhsqvuaJURHNBKVYP2436-26-82 23:21:00 Test Item Value Reference Range Interpretation Comments MCH (test code = MCH) 29.9 pg 27.0-31.0 [facility]2020-03-03 23:21:00 Test Item Value Reference Range Interpretation Comments AGAP (test code = AGAP) 8.8 10.0-20.0 [facility] LongviewWcenewuHTBVGDPCPT7672-98-68 23:21:00 Test Item Value Reference Range Interpretation Comments MCHC (test code = MCHC) 34.6 32.0-36.0 [facility] LakeWebsupp[facility] [id number] 23:21:00 Test Item Value Reference Range Interpretation Comments eGFR (test code = eGFR) 122 [facility]viewCwchbpjPKRAKTUJVL4083-17-14 23:21:00 Test Item Value Reference Range Interpretation Comments RDW (test code = RDW) 14.2 11.5-14.5 [facility] Longvi[id number] 23:21:00 Test Item Value Reference Range Interpretation Comments WBC (test code = WBC) 7.8 3.7-10.4 [facility] LongviewNwkazliRTHNSWEHXS4309-14-88 23:21:00 Test Item Value Reference Range Interpretation Comments Platelet (test code = Platelet) 268 133-450 [facility] LongviewRyymhoeGYUXXTQESD7153-15-36 23:21:00 Test Item Value Reference Range Interpretation Comments RBC (test code = RBC) 4.54 4.70-6.10 [place] [address]-03-03 23:21:00 Test Item Value Reference Range Interpretation Comments MPV (test code = MPV) 6.3 7.4-10.4 [place] [address]-03-03 23:21:00 Test Item Value Reference Range Interpretation Comments Hgb (test code = Hgb) 13.6 14.0-18.0 [place] [address]-03-03 23:21:00 Test Item Value Reference Range Interpretation Comments D-Dimer (test code = D-Dimer) 1.01 [facility] LongviewMjvrxzuQNJKCZLNLR9611-96-48 23:21:00 Test Item Value Reference Range Interpretation Comments Hct (test code = Hct) 39.2 42.0-54.0 [place] [address]-03-03 23:21:00 Test Item Value Reference Range Interpretation Comments Segs (test code = Segs) 50.7 45.0-75.0 [place] [address]-03-03 23:21:00 Test Item Value Reference Range Interpretation Comments MCV (test code = MCV) 86.4 80.0-94.0 [place] [address]-03-03 23:21:00 Test Item Value Reference Range Interpretation Comments Lymphocytes (test code = Lymphocytes) 40.5 20.0-40.0 [place] [address]-03-03 23:21:00 Test Item Value Reference Range Interpretation Comments MCH (test code = MCH) 29.9 pg 27.0-31.0 [place] [address]-03-03 23:21:00 Test Item Value Reference Range Interpretation Comments Monocytes (test code = Monocytes) 6.1 2.0-12.0 [place] [address]-03-03 23:21:00 Test Item Value Reference Range Interpretation Comments MCHC (test code = MCHC) 34.6 32.0-36.0 [place] [address]-03-03 23:21:00 Test Item Value Reference Range Interpretation Comments Eosinophils (test code = 2.0 See_Comment [A utomated message] The Eosinophils) system which ge nerated this result tra nsmitted reference range : <=4.0. The reference r kvng was not used to int erpret this result as normal/abnormal . [facility] LongviewAhguczhGGKHYJGNQB4169-28-79 23:21:00 Test Item Value Reference Range Interpretation Comments Basophils (test code = 0.7 See_Comment [Aut omated message] The Basophils) system which ge nerated this result tra nsmitted reference range : <=1.0. The reference r kvng was not used to int erpret this result as normal/abnormal . [facility] LongviewKcutyehSIMWSFRELA9042-38-26 23:21:00 Test Item Value Reference Range Interpretation Comments RDW (test code = RDW) 14.2 11.5-14.5 [facility] LongviewAsnvirsZYFWKEQDRF5982-68-64 23:21:00 Test Item Value Reference Range Interpretation Comments Neutrophils # (test code = Neutrophils 4.0 1.5-8.1 #) [facility] LongviewQzmjifjSVPQMDBOGF5565-83-09 23:21:00 Test Item Value Reference Range Interpretation Comments Platelet (test code = Platelet) 268 133-450 [facility] LongviewDtpvsfuIBHJSQUFLZ0074-76-17 23:21:00 Test Item Value Reference Range Interpretation Comments Lymphocytes # (test code = Lymphocytes 3.2 1.0-5.5 #) [facility] LongviewVeftyqfJAPCYUYCFF1874-62-40 23:21:00 Test Item Value Reference Range Interpretation Comments MPV (test code = MPV) 6.3 7.4-10.4 [facility] LongviewHijezrbDIBXZNRPOT4192-01-57 23:21:00 Test Item Value Reference Range Interpretation Comments Monocytes # (test code 0.5 See_Comment [Aut omated message] The = Monocytes #) system which generated this result tra nsmitted reference range : <=0.8. The reference r kvng was not used to int erpret this result as normal/abnormal . [facility] LongviewCrbfohbIULIAWOWDV6506-30-16 23:21:00 Test Item Value Reference Range Interpretation Comments D-Dimer (test code = D-Dimer) 1.01 [facility] LongviewHppaqiuELWDIQMUNZ9015-94-99 23:21:00 Test Item Value Reference Range Interpretation Comments Eosinophils # (test code 0.2 See_Comment [A utomated message] The = Eosinophils #) system whic h generated this result tra nsmitted reference range : <=0.5. The reference r kvng was not used to int erpret this result as normal/abnormal . [place] [address]-03-03 23:21:00 Test Item Value Reference Range Interpretation Comments Segs (test code = Segs) 50.7 45.0-75.0 [place] 050390-03-03 23:21:00 Test Item Value Reference Range Interpretation Comments Basophils # (test code 0.1 See_Comment [Aut omated message] The = Basophils #) system which generated this result tra nsmitted reference range : <=0.2. The reference r kvng was not used to int erpret this result as normal/abnormal . [place] [address]-03-03 23:21:00 Test Item Value Reference Range Interpretation Comments Lymphocytes (test code = Lymphocytes) 40.5 20.0-40.0 [place] [address]-03-03 23:21:00 Test Item Value Reference Range Interpretation Comments Monocytes (test code = Monocytes) 6.1 2.0-12.0 [place] [address]-03-03 23:21:00 Test Item Value Reference Range Interpretation Comments Eosinophils (test code = 2.0 See_Comment [A utomated message] The Eosinophils) system which ge nerated this result tra nsmitted reference range : <=4.0. The reference r kvng was not used to int erpret this result as normal/abnormal . [place] [address]-03-03 23:21:00 Test Item Value Reference Range Interpretation Comments Basophils (test code = 0.7 See_Comment [Aut omated message] The Basophils) system which ge nerated this result tra nsmitted reference range : <=1.0. The reference r kvng was not used to int erpret this result as normal/abnormal . [facility] LongviewNbgbujjQCXJCNHLJL0029-32-43 23:21:00 Test Item Value Reference Range Interpretation Comments Neutrophils # (test code = Neutrophils 4.0 1.5-8.1 #) [place] [address]-03-03 23:21:00 Test Item Value Reference Range Interpretation Comments Lymphocytes # (test code = Lymphocytes 3.2 1.0-5.5 #) [place] [address]-03-03 23:21:00 Test Item Value Reference Range Interpretation Comments Monocytes # (test code 0.5 See_Comment [Aut omated message] The = Monocytes #) system which generated this result tra nsmitted reference range : <=0.8. The reference r kvng was not used to int erpret this result as normal/abnormal . [facility] LongviewQqfiviwYWHSCQKJUU1089-81-61 23:21:00 Test Item Value Reference Range Interpretation Comments Eosinophils # (test code 0.2 See_Comment [A utomated message] The = Eosinophils #) system whic h generated this result tra nsmitted reference range : <=0.5. The reference r kvng was not used to int erpret this result as normal/abnormal . [facility] LongviewQrqgigdHCBKPGQOSK6349-06-17 23:21:00 Test Item Value Reference Range Interpretation Comments Basophils # (test code 0.1 See_Comment [Aut omated message] The = Basophils #) system which generated this result tra nsmitted reference range : <=0.2. The reference r kvng was not used to int erpret this result as normal/abnormal . [facility], MYELOGRAPHY, TWO OR MORE [id number] 16:14:00Reason for Exam:->THORACOLUMBAR SPINE FUSION, LUMBAR RADICULOPATHY, LOW BACK PAIN FINAL REPORT THORACIC AND LUMBAR MYELOGRAM, CT MYELOGRAM OF THE THORACIC AND LUMBAR SPINE. CLINICAL INDICATION: THORACOLUMBAR SPINE FUSION, LUMBAR RADICULOPATHY, LOW BACK PAIN COMPARISON: MRI from outside imaging facility. DESCRIPTION OF PROCEDURE: Details of the procedure, risks,benefits, alternatives, and questions were discussed. Informed consent was obtained from the patientas documented on the chart. The patient was sterilely prepped and draped; 1% lidocaine was used for local anesthesia. Using fluoroscopic guidance, a 22 gauge spinal needle was introduced into the thecal sac at the L2/L3 level and 12 cc of Isovue M 300 were infused. Successful intrathecal contrast admin istration was confirmed. Multiple myelographic images of the thoracic and lumbar spine were obtained. There were no procedure related complications. The patient was transferred to CT for the CT myelogram. FLUOROSCOPY TIME: 1.1 minutes TOTAL NUMBER OF FILMS: 17 THORACIC AND LUMBAR MYELOGRAM FINDINGS: Please refer to the CT myelogram findings below for further details. The patient is status post multilevel thoracolumbar posterior fusion and decompression. There is no fracture or subluxation. The hardware appears intact. The alignment appears intact. There are disc bulges and protrusions at L3-L4 and L4-L5 causing spinal canal narrowing. CT MYELOGRAM TECHNIQUE: CT of the thoracic spine was performed after the intrathecal administration of contrast. Axial imaging were generated as well as multiplanarreformatted images in the sagittal and coronal planes with bone and soft tissue algorithms. This exam was performed according to our departmental dose optimization program which includes automated exposure control, adjustment of the mA and/or kV according to patient size and/or use of iterative reconstructive technique. CT of the lumbar spine was performed after the intrathecal administration of contrast. Axial imaging were generated as well as multiplanar reformatted images in the sagittal and coronal planes with bone and soft tissue algorithms. This exam was performed according to our departmental dose optimization program which includes automated exposure control, adjustment of the mA and/or kVaccording to patient size and/or use of iterative reconstructive technique. CT MYELOGRAM FINDINGS: The patient is status post T3-L1 posterior lumbar fusion and multilevel decompressive laminectomies. The patient is also status post L2-L3 posterior lumbar fusion and decompressive laminectomy. Per patient's history, the patient underwent two separate surgeries for posterior spinal fusion. The bilateralspinal rods and pedicle screws appear intact. There is no fluid collection or hematoma. Limited visualization of the thorax, abdomen and pelvis appear unremarkable. No suspicious mass is seen. There isno fracture or traumatic malalignment. The conus terminates at T12-L1. Mild degenerative changes areseen in the thoracic spine with endplate irregularity and hypertrophic changes of the posterior elements. There is no significant disc bulge. There is no central canal or foraminal stenosis at any level. T12-L1, status post posterior fusion without disc bulge. No central canal or foraminal stenosis. L1-L2, status post posterior fusion without disc bulge. No central canal or foraminal stenosis. L2-L3,status post posterior fusion without disc bulge. No central canal or foraminal stenosis. L3-L4, broad-based disc bulge and mild facet arthropathy with ligamentous thickening, resulting in mild to moderate central canal and moderate bilateral foraminal stenosis. L4-L5, broad-based disc bulge with superimposed central disc protrusion indenting the thecal sac with associated mild facet arthropathy and ligamentous thickening, resulting in moderate to severe central canal stenosis and moderate bilateral f oraminal stenosis. L5-S1, mild disc bulge with superimposed left paracentral disc protrusion effacing the left lateral recess with slight mass effect on the traversing left S1 nerve root. Associated mild facet arthropathy and ligamentous thickening. These findings result in mild central canal and moderate bilateral foraminal stenosis as well. IMPRESSION:1. Status post multilevel fusion of the thoracolumbar spine with intact hardware and alignment. No central canal or foraminal stenosis visualized atthe operative levels.2. Multilevel degenerative changes of the lower lumbar spine with disc bulges/protrusions, facet arthropathy and ligamentous thickening, resulting in mild to moderate central [place] moderate bilateral foraminal stenosis at L3-L4, moderate to severe central canal and moderate bilateral foraminal stenosis at L4-L5, and mild central canal and moderate bilateral foraminal stenosisas well as asymmetric 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 Signed: Ralph Garrison MDReport Verified Silvano e/Time: 11/28/2017 16:14:49 Reading Location: [facility] Radiology Reading Room CT, SPINE, LUMBAR, [id number] 16:14:00FINAL REPORT THORACIC AND LUMBAR MYELOGRAM, CT MYELOGRAM OF THE THORACIC AND LUMBAR SPINE. CLINICAL INDICATION: THORACOLUMBAR SPINE FUSION, LUMBAR RADICULOPATHY, LOW BACK PAIN COMPARISON: MRI from outside imaging facility. DESCRIPTION OF PROCEDURE: Details of the procedure, risks,benefits, alternatives, and questions were discussed. Informed consent was obtained from the patientas documented on the chart. The patient was sterilely prepped and draped; 1% lidocaine was used for local anesthesia. Using fluoroscopic guidance, a 22 gauge spinal needle was introduced into the thecal sac at the L2/L3 level and 12 cc of Isovue M 300 were infused. Successful intrathecal contrast administration was confirmed. Multiple myelographic images of the thoracic and lumbar spine were obtained. There were no procedure related complications. The patient was transferred to CT for the CT myelogram. FLUOROSCOPY TIME: 1.1 minutes TOTAL NUMBER OF FILMS: 17 THORACIC AND LUMBAR MYELOGRAM FINDINGS: Please refer to the CT myelogram findings below for further details. The patient is status post multilevel thoracolumbar posterior fusion and decompression. There is no fracture or subluxation. The hardware appears intact. The alignment appears intact. There are disc bulges and protrusions at L3-L4 and L4-L5 causing spinal canal narrowing. CT MYELOGRAM TECHNIQUE: CT of the thoracic spine was performed after the intrathecal administration of contrast. Axial imaging were generated as well as multiplanar reformatted images in the sagittal and coronal planes with bone and soft tissue algorithms. This exam was performed according to our departmental dose optimization program which includes automated exposure control, adjustment of the mA and/or kV according to patient size and/or use of iterative reconst ructive technique. CT of the lumbar spine was performed after the intrathecal administration of contrast. Axial imaging were generated as well as multiplanar reformatted images in the sagittal and coronal planes with bone and soft tissue algorithms. This exam was performed according to our departmental dose optimization program which includes automated exposure control, adjustment of the mA and/or kVaccording to patient size and/or use of iterative reconstructive technique. CT MYELOGRAM FINDINGS: The patient is status post T3-L1 posterior lumbar fusion and multilevel decompressive laminectomies. The patient is also status post L2-L3 posterior lumbar fusion and decompressive laminectomy. Per patient's history, the patient underwent two separate surgeries for posterior spinal fusion. The bilateralspinal rods and pedicle screws appear intact. There is no fluid collection or hematoma. Limited visualization of the thorax, abdomen and pelvis appear unremarkable. No suspicious mass is seen. There isno fracture or traumatic malalignment. The conus terminates at T12-L1. Mild degenerative changes areseen in the thoracic spine with endplate irregularity and hypertrophic changes of the posterior elements. There is no significant disc bulge. There is no central canal or foraminal stenosis at any level. T12-L1, status post posterior fusion without disc bulge. No central canal or foraminal stenosis. L1-L2, status post posterior fusion without disc bulge. No central canal or foraminal stenosis. L2-L3,status post posterior fusion without disc bulge. No central canal or foraminal stenosis. L3-L4, broad-based disc bulge and mild facet arthropathy with ligamentous thickening, resulting in mild to modera te central canal and moderate bilateral foraminal stenosis. L4-L5, broad-based disc bulge with superimposed central disc protrusion indenting the thecal sac with associated mild facet arthropathy and ligamentous thickening, resulting in moderate to severe central canal stenosis and moderate bilateral foraminal stenosis. L5-S1, mild disc bulge with superimposed left paracentral disc protrusion effacing the left lateral recess with slight mass effect on the traversing left S1 nerve root. Associated mild facet arthropathy and ligamentous thickening. These findings result in mild central canal and moderate bilateral foraminal stenosis as well. IMPRESSION:1. Status post multilevel fusion of the thoracolumbar spine with intact hardware and alignment. No central canal or foraminal stenosis visualized atthe operative levels.2. Multilevel degenerative changes of the lower lumbar spine with disc bulges/protrusions, facet arthropathy and ligamentous thickening, resulting in mild to moderate central [place] moderate bilateral foraminal stenosis at L3-L4, moderate to severe central canal and moderate bilateral foraminal stenosis at L4-L5, and mild central canal and moderate bilateral foraminal stenosisas well as asymmetric 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 Signed: Ralph Garrison MDReport Verified Silvano e/Time: 11/28/2017 16:14:49 Reading Location: [facility] Radiology Reading Room CT, SPINE, THORACIC, [id number] 16:14:00FINAL REPORT THORACIC AND LUMBAR MYELOGRAM, CT MYELOGRAM OF THE THORACIC AND LUMBAR SPINE. CLINICAL INDICATION: THORACOLUMBAR SPINE FUSION, LUMBAR RADICULOPATHY, LOW BACK PAIN COMPARISON: MRI from outside imaging facility. DESCRIPTION OF PROCEDURE: Details of the procedure, risks,benefits, alternatives, and questions were discussed. Informed consent was obtained from the patientas documented on the chart. The patient was sterilely prepped and draped; 1% lidocaine was used for local anesthesia. Using fluoroscopic guidance, a 22 gauge spinal needle was introduced into the thecal sac at the L2/L3 level and 12 cc of Isovue M 300 were infused. Successful intrathecal contrast administration was confirmed. Multiple myelographic images of the thoracic and lumbar spine were obtained. There were no procedure related complications. The patient was transferred to CT for the CT myelogram. FLUOROSCOPY TIME: 1.1 minutes TOTAL NUMBER OF FILMS: 17 THORACIC AND LUMBAR MYELOGRAM FINDINGS: Please refer to the CT myelogram findings below for further details. The patient is status post multilevel thoracolumbar posterior fusion and decompression. There is no fracture or subluxation. The hardware appears intact. The alignment appears intact. There are disc bulges and protrusions at L3-L4 and L4-L5 causing spinal canal narrowing. CT MYELOGRAM TECHNIQUE: CT of the thoracic spine was performed after the intrathecal administration of contrast. Axial imaging were generated as well as multiplanar reformatted images in the sagittal and coronal planes with bone and soft tissue algorithms. This exam was performed according to our departmental dose optimization program which includes automated exposure control, adjustment of the mA and/or kV according to patient size and/or use of iterative reconst ructive technique. CT of the lumbar spine was performed after the intrathecal administration of contrast. Axial imaging were generated as well as multiplanar reformatted images in the sagittal and coronal planes with bone and soft tissue algorithms. This exam was performed according to our departmental dose optimization program which includes automated exposure control, adjustment of the mA and/or kVaccording to patient size and/or use of iterative reconstructive technique. CT MYELOGRAM FINDINGS: The patient is status post T3-L1 posterior lumbar fusion and multilevel decompressive laminectomies. The patient is also status post L2-L3 posterior lumbar fusion and decompressive laminectomy. Per patient's history, the patient underwent two separate surgeries for posterior spinal fusion. The bilateralspinal rods and pedicle screws appear intact. There is no fluid collection or hematoma. Limited visualization of the thorax, abdomen and pelvis appear unremarkable. No suspicious mass is seen. There isno fracture or traumatic malalignment. The conus terminates at T12-L1. Mild degenerative changes areseen in the thoracic spine with endplate irregularity and hypertrophic changes of the posterior elements. There is no significant disc bulge. There is no central canal or foraminal stenosis at any level. T12-L1, status post posterior fusion without disc bulge. No central canal or foraminal stenosis. L1-L2, status post posterior fusion without disc bulge. No central canal or foraminal stenosis. L2-L3,status post posterior fusion without disc bulge. No central canal or foraminal stenosis. L3-L4, broad-based disc bulge and mild facet arthropathy with ligamentous thickening, resulting in mild to modera te central canal and moderate bilateral foraminal stenosis. L4-L5, broad-based disc bulge with superimposed central disc protrusion indenting the thecal sac with associated mild facet arthropathy and ligamentous thickening, resulting in moderate to severe central canal stenosis and moderate bilateral foraminal stenosis. L5-S1, mild disc bulge with superimposed left paracentral disc protrusion effacing the left lateral recess with slight mass effect on the traversing left S1 nerve root. Associated mild facet arthropathy and ligamentous thickening. These findings result in mild central canal and moderate bilateral foraminal stenosis as well. IMPRESSION:1. Status post multilevel fusion of the thoracolumbar spine with intact hardware and alignment. No central canal or foraminal stenosis visualized atthe operative levels.2. Multilevel degenerative changes of the lower lumbar spine with disc bulges/protrusions, facet arthropathy and ligamentous thickening, resulting in mild to moderate central [place] moderate bilateral foraminal stenosis at L3-L4, moderate to severe central canal and moderate bilateral foraminal stenosis at L4-L5, and mild central canal and moderate bilateral foraminal stenosisas well as asymmetric 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 Signed: Ralph Garrison MDReport Verified Silvano e/Time: 11/28/2017 16:14:49 Reading Location: [facility] Radiology Reading Room CHEM PANEL 2016-09-19 20:45:00 Test Item Value Reference Range Interpretation Comments Calcium Lvl (test code = Calcium Lvl) 9.6 8.5-10.5 [facility] [id number] 20:45:00 Test Item Value Reference Range Interpretation Comments CO2 (test code = CO2) 20 24-32 [facility]2016-12-22 20:45:00 Test Item Value Reference Range Interpretation Comments Chloride Lvl (test code = Chloride Lvl) 103 95-109 [facility]2016-12-22 20:45:00 Test Item Value Reference Range Interpretation Comments Sodium Lvl (test code = Sodium Lvl) 142 135-145 [facility] [id number] 20:45:00 Test Item Value Reference Range Interpretation Comments Potassium Lvl (test code = Potassium 3.4 3.5-5.1 Lvl) [facility] [id number] 20:45:00 Test Item Value Reference Range Interpretation Comments Glucose Lvl (test code = Glucose Lvl) 116 70-99 [facility] [id number] 20:45:00 Test Item Value Reference Range Interpretation Comments Creatinine Lvl (test code = Creatinine 0.95 0.50-1.40 Lvl) [facility]2016-12-22 20:45:00 Test Item Value Reference Range Interpretation Comments BUN (test code = BUN) 19 7-22 [facility]2016-12-22 20:45:00 Test Item Value Reference Range Interpretation Comments eGFR (test code = eGFR) 134 [facility]2016-12-22 20:45:00 Test Item Value Reference Range Interpretation Comments Albumin Lvl (test code = Albumin Lvl) 4.1 3.5-5.0 [place] [id number] 20:45:00 Test Item Value Reference Range Interpretation Comments Alk Phos (test code = Alk Phos) 114 39-136 [facility]2016-12-22 20:45:00 Test Item Value Reference Range Interpretation Comments AST (test code = AST) 18 See_Comment [Auto mated message] The system which ge nerated this result transmit katerin reference range : <=37. The reference range was not used to interpr et this result as carlita l/abnormal. [facility]2016-12-22 20:45:00 Test Item Value Reference Range Interpretation Comments ALT (test code = ALT) 21 See_Comment [Auto mated message] The system which ge nerated this result transmit katerin reference range : <=65. The reference range was not used to interpr et this result as carlita l/abnormal. [facility]2016-12-22 20:45:00 Test Item Value Reference Range Interpretation Comments Bili Total (test code = Bili Total) 0.4 0.2-1.3 [facility]2016-12-22 20:45:00 Test Item Value Reference Range Interpretation Comments Total Protein (test code = Total 8.0 6.4-8.4 Protein) [facility]2016-12-22 20:45:00 Test Item Value Reference Range Interpretation Comments AGAP (test code = AGAP) 22.4 10.0-20.0 [place] [id number] 20:45:00 Test Item Value Reference Range Interpretation Comments B/C Ratio (test code = B/C Ratio) 20 6-25 [place] [id number] 20:45:00 Test Item Value Reference Range Interpretation Comments Globulin (test code = Globulin) 3.9 2.7-4.2 [facility]2016-12-22 20:45:00 Test Item Value Reference Range Interpretation Comments A/G Ratio (test code = A/G Ratio) 1.1 0.7-1.6 [facility]2016-12-22 20:45:00 Test Item Value Reference Range Interpretation Comments Lactic Acid Lvl (test code = Lactic 3.2 0.5-2.2 Acid Lvl) [facility]2016-12-22 20:45:00 Test Item Value Reference Range Interpretation Comments Calcium Lvl (test code = Calcium Lvl) 9.6 8.5-10.5 [facility]2016-12-22 20:45:00 Test Item Value Reference Range Interpretation Comments CO2 (test code = CO2) - [facility]2016-12-22 20:45:00 Test Item Value Reference Range Interpretation Comments Chloride Lvl (test code = Chloride Lvl) 103 95-109 [facility]2016-12-22 20:45:00 Test Item Value Reference Range Interpretation Comments Sodium Lvl (test code = Sodium Lvl) 142 135-145 [facility]2016-12-22 20:45:00 Test Item Value Reference Range Interpretation Comments Potassium Lvl (test code = Potassium 3.4 3.5-5.1 Lvl) [facility]2016-12-22 20:45:00 Test Item Value Reference Range Interpretation Comments Glucose Lvl (test code = Glucose Lvl) 116 70-99 [facility]2016-12-22 20:45:00 Test Item Value Reference Range Interpretation Comments Creatinine Lvl (test code = Creatinine 0.95 0.50-1.40 Lvl) [facility]2016-12-22 20:45:00 Test Item Value Reference Range Interpretation Comments BUN (test code = BUN) 04-19 [facility]2016-12-22 20:45:00 Test Item Value Reference Range Interpretation Comments eGFR (test code = eGFR) 134 [facility]2016-12-22 20:45:00 Test Item Value Reference Range Interpretation Comments Albumin Lvl (test code = Albumin Lvl) 4.1 3.5-5.0 [place] [id number] 20:45:00 Test Item Value Reference Range Interpretation Comments Alk Phos (test code = Alk Phos) 114 39-136 [facility]2016-12-22 20:45:00 Test Item Value Reference Range Interpretation Comments AST (test code = AST) 18 See_Comment [Auto mated message] The system which ge nerated this result transmit katerin reference range : <=37. The reference range was not used to interpr et this result as carlita l/abnormal. [facility]2016-12-22 20:45:00 Test Item Value Reference Range Interpretation Comments ALT (test code = ALT) 21 See_Comment [Auto mated message] The system which ge nerated this result transmit katerin reference range : <=65. The reference range was not used to interpr et this result as carlita l/abnormal. [place] [id number] 20:45:00 Test Item Value Reference Range Interpretation Comments Bili Total (test code = Bili Total) 0.4 0.2-1.3 [place] [id number] 20:45:00 Test Item Value Reference Range Interpretation Comments Total Protein (test code = Total 8.0 6.4-8.4 Protein) [place] [id number] 20:45:00 Test Item Value Reference Range Interpretation Comments AGAP (test code = AGAP) 22.4 10.0-20.0 [place] [id number] 20:45:00 Test Item Value Reference Range Interpretation Comments B/C Ratio (test code = B/C Ratio) 20 6-25 [place] [id number] 20:45:00 Test Item Value Reference Range Interpretation Comments Globulin (test code = Globulin) 3.9 2.7-4.2 [place] [id number] 20:45:00 Test Item Value Reference Range Interpretation Comments A/G Ratio (test code = A/G Ratio) 1.1 0.7-1.6 [place] [id number] 20:45:00 Test Item Value Reference Range Interpretation Comments Lactic Acid Lvl (test code = Lactic 3.2 0.5-2.2 Acid Lvl) [place] [id number] 20:45:00 Test Item Value Reference Range Interpretation Comments Calcium Lvl (test code = Calcium Lvl) 9.6 8.5-10.5 [facility]2016-12-22 20:45:00 Test Item Value Reference Range Interpretation Comments CO2 (test code = CO2) 20 24-32 [facility]2016-12-22 20:45:00 Test Item Value Reference Range Interpretation Comments Chloride Lvl (test code = Chloride Lvl) 103 95-109 [facility]2016-12-22 20:45:00 Test Item Value Reference Range Interpretation Comments Sodium Lvl (test code = Sodium Lvl) 142 135-145 [facility]2016-12-22 20:45:00 Test Item Value Reference Range Interpretation Comments Potassium Lvl (test code = Potassium 3.4 3.5-5.1 Lvl) [facility]2016-12-22 20:45:00 Test Item Value Reference Range Interpretation Comments Glucose Lvl (test code = Glucose Lvl) 116 70-99 [facility]2016-12-22 20:45:00 Test Item Value Reference Range Interpretation Comments Creatinine Lvl (test code = Creatinine 0.95 0.50-1.40 Lvl) [facility]2016-12-22 20:45:00 Test Item Value Reference Range Interpretation Comments BUN (test code = BUN) 19 7-22 [facility]2016-12-22 20:45:00 Test Item Value Reference Range Interpretation Comments eGFR (test code = eGFR) 134 [facility]2016-12-22 20:45:00 Test Item Value Reference Range Interpretation Comments Albumin Lvl (test code = Albumin Lvl) 4.1 3.5-5.0 [facility]2016-12-22 20:45:00 Test Item Value Reference Range Interpretation Comments Alk Phos (test code = Alk Phos) 114 39-136 [facility]2016-12-22 20:45:00 Test Item Value Reference Range Interpretation Comments AST (test code = AST) 18 See_Comment [Auto mated message] The system which ge nerated this result transmit katerin reference range : <=37. The reference range was not used to interpr et this result as carlita l/abnormal. [facility]2016-12-22 20:45:00 Test Item Value Reference Range Interpretation Comments ALT (test code = ALT) 21 See_Comment [Auto mated message] The system which ge nerated this result transmit katerin reference range : <=65. The reference range was not used to interpr et this result as carlita l/abnormal. [facility]2016-12-22 20:45:00 Test Item Value Reference Range Interpretation Comments Bili Total (test code = Bili Total) 0.4 0.2-1.3 [facility]2016-12-22 20:45:00 Test Item Value Reference Range Interpretation Comments Total Protein (test code = Total 8.0 6.4-8.4 Protein) [facility]2016-12-22 20:45:00 Test Item Value Reference Range Interpretation Comments AGAP (test code = AGAP) 22.4 10.0-20.0 [facility]2016-12-22 20:45:00 Test Item Value Reference Range Interpretation Comments B/C Ratio (test code = B/C Ratio) 20 03-23 [facility]2016-12-22 20:45:00 Test Item Value Reference Range Interpretation Comments Globulin (test code = Globulin) 3.9 2.7-4.2 [facility]2016-12-22 20:45:00 Test Item Value Reference Range Interpretation Comments A/G Ratio (test code = A/G Ratio) 1.1 0.7-1.6 [facility]2016-12-22 20:45:00 Test Item Value Reference Range Interpretation Comments Lactic Acid Lvl (test code = Lactic 3.2 0.5-2.2 Acid Lvl) [facility]2016-12-22 20:45:00 Test Item Value Reference Range Interpretation Comments Calcium Lvl (test code = Calcium Lvl) 9.6 8.5-10.5 [facility]2016-12-22 20:45:00 Test Item Value Reference Range Interpretation Comments CO2 (test code = CO2) - [facility]2016-12-22 20:45:00 Test Item Value Reference Range Interpretation Comments Chloride Lvl (test code = Chloride Lvl) 103 95-109 [facility]2016-12-22 20:45:00 Test Item Value Reference Range Interpretation Comments Sodium Lvl (test code = Sodium Lvl) 142 135-145 [facility]2016-12-22 20:45:00 Test Item Value Reference Range Interpretation Comments Potassium Lvl (test code = Potassium 3.4 3.5-5.1 Lvl) [facility]2016-12-22 20:45:00 Test Item Value Reference Range Interpretation Comments Glucose Lvl (test code = Glucose Lvl) 116 70-99 [facility]2016-12-22 20:45:00 Test Item Value Reference Range Interpretation Comments Creatinine Lvl (test code = Creatinine 0.95 0.50-1.40 Lvl) [facility]2016-12-22 20:45:00 Test Item Value Reference Range Interpretation Comments BUN (test code = BUN) 19 7-22 [facility]2016-12-22 20:45:00 Test Item Value Reference Range Interpretation Comments eGFR (test code = eGFR) 134 [facility]2016-12-22 20:45:00 Test Item Value Reference Range Interpretation Comments Albumin Lvl (test code = Albumin Lvl) 4.1 3.5-5.0 [facility]2016-12-22 20:45:00 Test Item Value Reference Range Interpretation Comments Alk Phos (test code = Alk Phos) 114 39-136 [facility]2016-12-22 20:45:00 Test Item Value Reference Range Interpretation Comments AST (test code = AST) 18 See_Comment [Auto mated message] The system which ge nerated this result transmit katerin reference range : <=37. The reference range was not used to interpr et this result as carlita l/abnormal. [facility]2016-12-22 20:45:00 Test Item Value Reference Range Interpretation Comments ALT (test code = ALT) 21 See_Comment [Auto mated message] The system which ge nerated this result transmit katerin reference range : <=65. The reference range was not used to interpr et this result as carlita l/abnormal. [facility]2016-12-22 20:45:00 Test Item Value Reference Range Interpretation Comments Bili Total (test code = Bili Total) 0.4 0.2-1.3 [place] [id number] 20:45:00 Test Item Value Reference Range Interpretation Comments Total Protein (test code = Total 8.0 6.4-8.4 Protein) [facility]2016-12-22 20:45:00 Test Item Value Reference Range Interpretation Comments AGAP (test code = AGAP) 22.4 10.0-20.0 [facility]2016-12-22 20:45:00 Test Item Value Reference Range Interpretation Comments B/C Ratio (test code = B/C Ratio) 20 - [facility]2016-12-22 20:45:00 Test Item Value Reference Range Interpretation Comments Globulin (test code = Globulin) 3.9 2.7-4.2 [facility]2016-12-22 20:45:00 Test Item Value Reference Range Interpretation Comments A/G Ratio (test code = A/G Ratio) 1.1 0.7-1.6 [facility]2016-12-22 20:45:00 Test Item Value Reference Range Interpretation Comments Lactic Acid Lvl (test code = Lactic 3.2 0.5-2.2 Acid Lvl) [facility]2016-12-22 20:45:00 Test Item Value Reference Range Interpretation Comments Calcium Lvl (test code = Calcium Lvl) 9.6 8.5-10.5 [facility]2016-12-22 20:45:00 Test Item Value Reference Range Interpretation Comments CO2 (test code = CO2) 20 -32 [facility]2016-12-22 20:45:00 Test Item Value Reference Range Interpretation Comments Chloride Lvl (test code = Chloride Lvl) 103 95-109 [facility]2016-12-22 20:45:00 Test Item Value Reference Range Interpretation Comments Sodium Lvl (test code = Sodium Lvl) 142 135-145 [facility]2016-12-22 20:45:00 Test Item Value Reference Range Interpretation Comments Potassium Lvl (test code = Potassium 3.4 3.5-5.1 Lvl) [facility]2016-12-22 20:45:00 Test Item Value Reference Range Interpretation Comments Glucose Lvl (test code = Glucose Lvl) 116 70-99 [facility]2016-12-22 20:45:00 Test Item Value Reference Range Interpretation Comments Creatinine Lvl (test code = Creatinine 0.95 0.50-1.40 Lvl) [facility]2016-12-22 20:45:00 Test Item Value Reference Range Interpretation Comments BUN (test code = BUN) 19 7-22 [facility]2016-12-22 20:45:00 Test Item Value Reference Range Interpretation Comments eGFR (test code = eGFR) 134 [facility]2016-12-22 20:45:00 Test Item Value Reference Range Interpretation Comments Albumin Lvl (test code = Albumin Lvl) 4.1 3.5-5.0 [facility]2016-12-22 20:45:00 Test Item Value Reference Range Interpretation Comments Alk Phos (test code = Alk Phos) 114 39-136 [facility]2016-12-22 20:45:00 Test Item Value Reference Range Interpretation Comments AST (test code = AST) 18 See_Comment [Auto mated message] The system which ge nerated this result transmit katerin reference range : <=37. The reference range was not used to interpr et this result as carlita l/abnormal. [facility]2016-12-22 20:45:00 Test Item Value Reference Range Interpretation Comments ALT (test code = ALT) 21 See_Comment [Auto mated message] The system which ge nerated this result transmit katerin reference range : <=65. The reference range was not used to interpr et this result as carlita l/abnormal. [facility]2016-12-22 20:45:00 Test Item Value Reference Range Interpretation Comments Bili Total (test code = Bili Total) 0.4 0.2-1.3 [place] [id number] 20:45:00 Test Item Value Reference Range Interpretation Comments Total Protein (test code = Total 8.0 6.4-8.4 Protein) [facility]2016-12-22 20:45:00 Test Item Value Reference Range Interpretation Comments AGAP (test code = AGAP) 22.4 10.0-20.0 [place] [id number] 20:45:00 Test Item Value Reference Range Interpretation Comments B/C Ratio (test code = B/C Ratio) 20 6-25 [place] [id number] 20:45:00 Test Item Value Reference Range Interpretation Comments Globulin (test code = Globulin) 3.9 2.7-4.2 [facility]2016-12-22 20:45:00 Test Item Value Reference Range Interpretation Comments A/G Ratio (test code = A/G Ratio) 1.1 0.7-1.6 [facility]2016-12-22 20:45:00 Test Item Value Reference Range Interpretation Comments Lactic Acid Lvl (test code = Lactic 3.2 0.5-2.2 Acid Lvl) [facility]2016-12-22 20:45:00 Test Item Value Reference Range Interpretation Comments Calcium Lvl (test code = Calcium Lvl) 9.6 8.5-10.5 [facility]2016-12-22 20:45:00 Test Item Value Reference Range Interpretation Comments CO2 (test code = CO2) - [facility]2016-12-22 20:45:00 Test Item Value Reference Range Interpretation Comments Chloride Lvl (test code = Chloride Lvl) 103 95-109 [facility]2016-12-22 20:45:00 Test Item Value Reference Range Interpretation Comments Sodium Lvl (test code = Sodium Lvl) 142 135-145 [facility]2016-12-22 20:45:00 Test Item Value Reference Range Interpretation Comments Potassium Lvl (test code = Potassium 3.4 3.5-5.1 Lvl) [facility]2016-12-22 20:45:00 Test Item Value Reference Range Interpretation Comments Glucose Lvl (test code = Glucose Lvl) 116 70-99 [facility]2016-12-22 20:45:00 Test Item Value Reference Range Interpretation Comments Creatinine Lvl (test code = Creatinine 0.95 0.50-1.40 Lvl) [facility]2016-12-22 20:45:00 Test Item Value Reference Range Interpretation Comments BUN (test code = BUN) 19 - [facility]2016-12-22 20:45:00 Test Item Value Reference Range Interpretation Comments eGFR (test code = eGFR) 134 [facility]2016-12-22 20:45:00 Test Item Value Reference Range Interpretation Comments Albumin Lvl (test code = Albumin Lvl) 4.1 3.5-5.0 [id number] 20:45:00 Test Item Value Reference Range Interpretation Comments Alk Phos (test code = Alk Phos) 114 39-136 [facility]2016-12-22 20:45:00 Test Item Value Reference Range Interpretation Comments AST (test code = AST) 18 See_Comment [Auto mated message] The system which ge nerated this result transmit katerin reference range : <=37. The reference range was not used to interpr et this result as carlita l/abnormal. [facility]2016-12-22 20:45:00 Test Item Value Reference Range Interpretation Comments ALT (test code = ALT) 21 See_Comment [Auto mated message] The system which ge nerated this result transmit katerin reference range : <=65. The reference range was not used to interpr et this result as carlita l/abnormal. [place] [id number] 20:45:00 Test Item Value Reference Range Interpretation Comments Bili Total (test code = Bili Total) 0.4 0.2-1.3 [place] [id number] 20:45:00 Test Item Value Reference Range Interpretation Comments Total Protein (test code = Total 8.0 6.4-8.4 Protein) [place] [id number] 20:45:00 Test Item Value Reference Range Interpretation Comments AGAP (test code = AGAP) 22.4 10.0-20.0 [place] [id number] 20:45:00 Test Item Value Reference Range Interpretation Comments B/C Ratio (test code = B/C Ratio) 20 6-25 [place] [id number] 20:45:00 Test Item Value Reference Range Interpretation Comments Globulin (test code = Globulin) 3.9 2.7-4.2 [facility] [id number] 20:45:00 Test Item Value Reference Range Interpretation Comments A/G Ratio (test code = A/G Ratio) 1.1 0.7-1.6 [facility] [id number] 20:45:00 Test Item Value Reference Range Interpretation Comments Lactic Acid Lvl (test code = Lactic 3.2 0.5-2.2 Acid Lvl) [facility]2016-12-22 20:45:00 Test Item Value Reference Range Interpretation Comments Calcium Lvl (test code = Calcium Lvl) 9.6 8.5-10.5 [facility]2016-12-22 20:45:00 Test Item Value Reference Range Interpretation Comments CO2 (test code = CO2) 20 24-32 [facility]2016-12-22 20:45:00 Test Item Value Reference Range Interpretation Comments Chloride Lvl (test code = Chloride Lvl) 103 95-109 [facility]2016-12-22 20:45:00 Test Item Value Reference Range Interpretation Comments Sodium Lvl (test code = Sodium Lvl) 142 135-145 [facility]2016-12-22 20:45:00 Test Item Value Reference Range Interpretation Comments Potassium Lvl (test code = Potassium 3.4 3.5-5.1 Lvl) [facility]2016-12-22 20:45:00 Test Item Value Reference Range Interpretation Comments Glucose Lvl (test code = Glucose Lvl) 116 70-99 [facility]2016-12-22 20:45:00 Test Item Value Reference Range Interpretation Comments Creatinine Lvl (test code = Creatinine 0.95 0.50-1.40 Lvl) [facility]2016-12-22 20:45:00 Test Item Value Reference Range Interpretation Comments BUN (test code = BUN) 19 7-22 [facility]2016-12-22 20:45:00 Test Item Value Reference Range Interpretation Comments eGFR (test code = eGFR) 134 [facility]2016-12-22 20:45:00 Test Item Value Reference Range Interpretation Comments Albumin Lvl (test code = Albumin Lvl) 4.1 3.5-5.0 [facility]2016-12-22 20:45:00 Test Item Value Reference Range Interpretation Comments Alk Phos (test code = Alk Phos) 114 39-136 [facility]2016-12-22 20:45:00 Test Item Value Reference Range Interpretation Comments AST (test code = AST) 18 See_Comment [Auto mated message] The system which ge nerated this result transmit katerin reference range : <=37. The reference range was not used to interpr et this result as carlita l/abnormal. [facility]2016-12-22 20:45:00 Test Item Value Reference Range Interpretation Comments ALT (test code = ALT) 21 See_Comment [Auto mated message] The system which ge nerated this result transmit katerin reference range : <=65. The reference range was not used to interpr et this result as carlita l/abnormal. [facility]2016-12-22 20:45:00 Test Item Value Reference Range Interpretation Comments Bili Total (test code = Bili Total) 0.4 0.2-1.3 [facility]2016-12-22 20:45:00 Test Item Value Reference Range Interpretation Comments Total Protein (test code = Total 8.0 6.4-8.4 Protein) [facility]2016-12-22 20:45:00 Test Item Value Reference Range Interpretation Comments AGAP (test code = AGAP) 22.4 10.0-20.0 [facility]2016-12-22 20:45:00 Test Item Value Reference Range Interpretation Comments B/C Ratio (test code = B/C Ratio) 20 - [facility]2016-12-22 20:45:00 Test Item Value Reference Range Interpretation Comments Globulin (test code = Globulin) 3.9 2.7-4.2 [facility]2016-12-22 20:45:00 Test Item Value Reference Range Interpretation Comments A/G Ratio (test code = A/G Ratio) 1.1 0.7-1.6 [facility]2016-12-22 20:45:00 Test Item Value Reference Range Interpretation Comments Lactic Acid Lvl (test code = Lactic 3.2 0.5-2.2 Acid Lvl) [facility]2016-12-22 20:45:00 Test Item Value Reference Range Interpretation Comments Calcium Lvl (test code = Calcium Lvl) 9.6 8.5-10.5 [facility]2016-12-22 20:45:00 Test Item Value Reference Range Interpretation Comments CO2 (test code = CO2) 20 24-32 [facility]2016-12-22 20:45:00 Test Item Value Reference Range Interpretation Comments Chloride Lvl (test code = Chloride Lvl) 103 95-109 [place] [id number] 20:45:00 Test Item Value Reference Range Interpretation Comments Sodium Lvl (test code = Sodium Lvl) 142 135-145 [facility]2016-12-22 20:45:00 Test Item Value Reference Range Interpretation Comments Potassium Lvl (test code = Potassium 3.4 3.5-5.1 Lvl) [facility]2016-12-22 20:45:00 Test Item Value Reference Range Interpretation Comments Glucose Lvl (test code = Glucose Lvl) 116 70-99 [facility]2016-12-22 20:45:00 Test Item Value Reference Range Interpretation Comments Creatinine Lvl (test code = Creatinine 0.95 0.50-1.40 Lvl) [facility]2016-12-22 20:45:00 Test Item Value Reference Range Interpretation Comments BUN (test code = BUN) 19 7-22 [facility]2016-12-22 20:45:00 Test Item Value Reference Range Interpretation Comments eGFR (test code = eGFR) 134 [facility]2016-12-22 20:45:00 Test Item Value Reference Range Interpretation Comments Albumin Lvl (test code = Albumin Lvl) 4.1 3.5-5.0 [facility]2016-12-22 20:45:00 Test Item Value Reference Range Interpretation Comments Alk Phos (test code = Alk Phos) 114 39-136 [facility]2016-12-22 20:45:00 Test Item Value Reference Range Interpretation Comments AST (test code = AST) 18 See_Comment [Auto mated message] The system which ge nerated this result transmit katerin reference range : <=37. The reference range was not used to interpr et this result as carlita l/abnormal. [facility]2016-12-22 20:45:00 Test Item Value Reference Range Interpretation Comments ALT (test code = ALT) 21 See_Comment [Auto mated message] The system which ge nerated this result transmit katerin reference range : <=65. The reference range was not used to interpr et this result as carlita l/abnormal. [facility]2016-12-22 20:45:00 Test Item Value Reference Range Interpretation Comments Bili Total (test code = Bili Total) 0.4 0.2-1.3 [facility]2016-12-22 20:45:00 Test Item Value Reference Range Interpretation Comments Total Protein (test code = Total 8.0 6.4-8.4 Protein) [facility]2016-12-22 20:45:00 Test Item Value Reference Range Interpretation Comments AGAP (test code = AGAP) 22.4 10.0-20.0 [facility]2016-12-22 20:45:00 Test Item Value Reference Range Interpretation Comments B/C Ratio (test code = B/C Ratio) 20 6-25 [facility]2016-12-22 20:45:00 Test Item Value Reference Range Interpretation Comments Calcium Lvl (test code = Calcium Lvl) 9.6 8.5-10.5 [facility]2016-12-22 20:45:00 Test Item Value Reference Range Interpretation Comments Globulin (test code = Globulin) 3.9 2.7-4.2 [facility]2016-12-22 20:45:00 Test Item Value Reference Range Interpretation Comments CO2 (test code = CO2) 20 24-32 [facility]2016-12-22 20:45:00 Test Item Value Reference Range Interpretation Comments A/G Ratio (test code = A/G Ratio) 1.1 0.7-1.6 [facility]2016-12-22 20:45:00 Test Item Value Reference Range Interpretation Comments Chloride Lvl (test code = Chloride Lvl) 103 95-109 [facility]2016-12-22 20:45:00 Test Item Value Reference Range Interpretation Comments Lactic Acid Lvl (test code = Lactic 3.2 0.5-2.2 Acid Lvl) [facility]2016-12-22 20:45:00 Test Item Value Reference Range Interpretation Comments Sodium Lvl (test code = Sodium Lvl) 142 135-145 [facility]2016-12-22 20:45:00 Test Item Value Reference Range Interpretation Comments Potassium Lvl (test code = Potassium 3.4 3.5-5.1 Lvl) [facility]2016-12-22 20:45:00 Test Item Value Reference Range Interpretation Comments Glucose Lvl (test code = Glucose Lvl) 116 70-99 [facility]2016-12-22 20:45:00 Test Item Value Reference Range Interpretation Comments Creatinine Lvl (test code = Creatinine 0.95 0.50-1.40 Lvl) [facility]2016-12-22 20:45:00 Test Item Value Reference Range Interpretation Comments BUN (test code = BUN) 19 7-22 [facility]2016-12-22 20:45:00 Test Item Value Reference Range Interpretation Comments eGFR (test code = eGFR) 134 [facility]2016-12-22 20:45:00 Test Item Value Reference Range Interpretation Comments Albumin Lvl (test code = Albumin Lvl) 4.1 3.5-5.0 [place] [id number] 20:45:00 Test Item Value Reference Range Interpretation Comments Alk Phos (test code = Alk Phos) 114 39-136 [facility]2016-12-22 20:45:00 Test Item Value Reference Range Interpretation Comments AST (test code = AST) 18 See_Comment [Auto mated message] The system which ge nerated this result transmit katerin reference range : <=37. The reference range was not used to interpr et this result as carlita l/abnormal. [facility]2016-12-22 20:45:00 Test Item Value Reference Range Interpretation Comments ALT (test code = ALT) 21 See_Comment [Auto mated message] The system which ge nerated this result transmit katerin reference range : <=65. The reference range was not used to interpr et this result as carilta l/abnormal. [place] [id number] 20:45:00 Test Item Value Reference Range Interpretation Comments Bili Total (test code = Bili Total) 0.4 0.2-1.3 [place] [id number] 20:45:00 Test Item Value Reference Range Interpretation Comments Total Protein (test code = Total 8.0 6.4-8.4 Protein) [place] [id number] 20:45:00 Test Item Value Reference Range Interpretation Comments AGAP (test code = AGAP) 22.4 10.0-20.0 [place] [id number] 20:45:00 Test Item Value Reference Range Interpretation Comments B/C Ratio (test code = B/C Ratio) 20 6-25 [facility]2016-12-22 20:45:00 Test Item Value Reference Range Interpretation Comments Globulin (test code = Globulin) 3.9 2.7-4.2 [facility]2016-12-22 20:45:00 Test Item Value Reference Range Interpretation Comments A/G Ratio (test code = A/G Ratio) 1.1 0.7-1.6 [facility]2016-12-22 20:45:00 Test Item Value Reference Range Interpretation Comments Lactic Acid Lvl (test code = Lactic 3.2 0.5-2.2 Acid Lvl) [facility]2016-12-22 20:45:00 Test Item Value Reference Range Interpretation Comments Calcium Lvl (test code = Calcium Lvl) 9.6 8.5-10.5 [facility]2016-12-22 20:45:00 Test Item Value Reference Range Interpretation Comments CO2 (test code = CO2) - [facility]2016-12-22 20:45:00 Test Item Value Reference Range Interpretation Comments Chloride Lvl (test code = Chloride Lvl) 103 95-109 [facility]2016-12-22 20:45:00 Test Item Value Reference Range Interpretation Comments Sodium Lvl (test code = Sodium Lvl) 142 135-145 [facility]2016-12-22 20:45:00 Test Item Value Reference Range Interpretation Comments Potassium Lvl (test code = Potassium 3.4 3.5-5.1 Lvl) [facility]2016-12-22 20:45:00 Test Item Value Reference Range Interpretation Comments Glucose Lvl (test code = Glucose Lvl) 116 70-99 [facility]2016-12-22 20:45:00 Test Item Value Reference Range Interpretation Comments Creatinine Lvl (test code = Creatinine 0.95 0.50-1.40 Lvl) [facility]2016-12-22 20:45:00 Test Item Value Reference Range Interpretation Comments BUN (test code = BUN) 19 04-19 [facility]2016-12-22 20:45:00 Test Item Value Reference Range Interpretation Comments eGFR (test code = eGFR) 134 [facility]2016-12-22 20:45:00 Test Item Value Reference Range Interpretation Comments Albumin Lvl (test code = Albumin Lvl) 4.1 3.5-5.0 [id number] 20:45:00 Test Item Value Reference Range Interpretation Comments Alk Phos (test code = Alk Phos) 114 39-136 [facility]2016-12-22 20:45:00 Test Item Value Reference Range Interpretation Comments AST (test code = AST) 18 See_Comment [Auto mated message] The system which ge nerated this result transmit katerin reference range : <=37. The reference range was not used to interpr et this result as carlita l/abnormal. [facility] [id number] 20:45:00 Test Item Value Reference Range Interpretation Comments ALT (test code = ALT) 21 See_Comment [Auto mated message] The system which ge nerated this result transmit katerin reference range : <=65. The reference range was not used to interpr et this result as carlita l/abnormal. [facility] [id number] 20:45:00 Test Item Value Reference Range Interpretation Comments Bili Total (test code = Bili Total) 0.4 0.2-1.3 [facility] [id number] 20:45:00 Test Item Value Reference Range Interpretation Comments Total Protein (test code = Total 8.0 6.4-8.4 Protein) [facility]2016-12-22 20:45:00 Test Item Value Reference Range Interpretation Comments AGAP (test code = AGAP) 22.4 10.0-20.0 [facility] [id number] 20:45:00 Test Item Value Reference Range Interpretation Comments B/C Ratio (test code = B/C Ratio) 20 6-25 [facility] [id number] 20:45:00 Test Item Value Reference Range Interpretation Comments Globulin (test code = Globulin) 3.9 2.7-4.2 [facility] [id number] 20:45:00 Test Item Value Reference Range Interpretation Comments A/G Ratio (test code = A/G Ratio) 1.1 0.7-1.6 [facility] [id number] 20:45:00 Test Item Value Reference Range Interpretation Comments Lactic Acid Lvl (test code = Lactic 3.2 0.5-2.2 Acid Lvl) [facility]2016-12-22 20:45:00 Test Item Value Reference Range Interpretation Comments Calcium Lvl (test code = Calcium Lvl) 9.6 8.5-10.5 [facility]2016-12-22 20:45:00 Test Item Value Reference Range Interpretation Comments CO2 (test code = CO2) 20 24-32 [facility]2016-12-22 20:45:00 Test Item Value Reference Range Interpretation Comments Chloride Lvl (test code = Chloride Lvl) 103 95-109 [facility]2016-12-22 20:45:00 Test Item Value Reference Range Interpretation Comments Sodium Lvl (test code = Sodium Lvl) 142 135-145 [facility]2016-12-22 20:45:00 Test Item Value Reference Range Interpretation Comments Potassium Lvl (test code = Potassium 3.4 3.5-5.1 Lvl) [facility]2016-12-22 20:45:00 Test Item Value Reference Range Interpretation Comments Glucose Lvl (test code = Glucose Lvl) 116 70-99 [facility]2016-12-22 20:45:00 Test Item Value Reference Range Interpretation Comments Creatinine Lvl (test code = Creatinine 0.95 0.50-1.40 Lvl) [facility]2016-12-22 20:45:00 Test Item Value Reference Range Interpretation Comments BUN (test code = BUN) 19 7-22 [facility]2016-12-22 20:45:00 Test Item Value Reference Range Interpretation Comments eGFR (test code = eGFR) 134 [facility]2016-12-22 20:45:00 Test Item Value Reference Range Interpretation Comments Albumin Lvl (test code = Albumin Lvl) 4.1 3.5-5.0 [facility]2016-12-22 20:45:00 Test Item Value Reference Range Interpretation Comments Alk Phos (test code = Alk Phos) 114 39-136 [facility]2016-12-22 20:45:00 Test Item Value Reference Range Interpretation Comments AST (test code = AST) 18 See_Comment [Auto mated message] The system which ge nerated this result transmit katerin reference range : <=37. The reference range was not used to interpr et this result as carlita l/abnormal. [facility]2016-12-22 20:45:00 Test Item Value Reference Range Interpretation Comments ALT (test code = ALT) 21 See_Comment [Auto mated message] The system which ge nerated this result transmit katerin reference range : <=65. The reference range was not used to interpr et this result as carlita l/abnormal. [facility]2016-12-22 20:45:00 Test Item Value Reference Range Interpretation Comments Bili Total (test code = Bili Total) 0.4 0.2-1.3 [facility]2016-12-22 20:45:00 Test Item Value Reference Range Interpretation Comments Total Protein (test code = Total 8.0 6.4-8.4 Protein) [facility]2016-12-22 20:45:00 Test Item Value Reference Range Interpretation Comments AGAP (test code = AGAP) 22.4 10.0-20.0 [facility]2016-12-22 20:45:00 Test Item Value Reference Range Interpretation Comments B/C Ratio (test code = B/C Ratio) 20 6-25 [facility]2016-12-22 20:45:00 Test Item Value Reference Range Interpretation Comments Globulin (test code = Globulin) 3.9 2.7-4.2 [facility]2016-12-22 20:45:00 Test Item Value Reference Range Interpretation Comments A/G Ratio (test code = A/G Ratio) 1.1 0.7-1.6 [facility]2016-12-22 20:45:00 Test Item Value Reference Range Interpretation Comments Lactic Acid Lvl (test code = Lactic 3.2 0.5-2.2 Acid Lvl) [facility]2016-12-22 20:45:00 Test Item Value Reference Range Interpretation Comments Calcium Lvl (test code = Calcium Lvl) 9.6 8.5-10.5 [facility]2016-12-22 20:45:00 Test Item Value Reference Range Interpretation Comments CO2 (test code = CO2) 20 24-32 [facility]2016-12-22 20:45:00 Test Item Value Reference Range Interpretation Comments Chloride Lvl (test code = Chloride Lvl) 103 95-109 [facility]2016-12-22 20:45:00 Test Item Value Reference Range Interpretation Comments Sodium Lvl (test code = Sodium Lvl) 142 135-145 [facility]2016-12-22 20:45:00 Test Item Value Reference Range Interpretation Comments Potassium Lvl (test code = Potassium 3.4 3.5-5.1 Lvl) [place] [id number] 20:45:00 Test Item Value Reference Range Interpretation Comments Glucose Lvl (test code = Glucose Lvl) 116 70-99 [place] [id number] 20:45:00 Test Item Value Reference Range Interpretation Comments Creatinine Lvl (test code = Creatinine 0.95 0.50-1.40 Lvl) [facility]2016-12-22 20:45:00 Test Item Value Reference Range Interpretation Comments BUN (test code = BUN) 19 7-22 [place] [id number] 20:45:00 Test Item Value Reference Range Interpretation Comments eGFR (test code = eGFR) 134 [facility]2016-12-22 20:45:00 Test Item Value Reference Range Interpretation Comments Albumin Lvl (test code = Albumin Lvl) 4.1 3.5-5.0 [facility]2016-12-22 20:45:00 Test Item Value Reference Range Interpretation Comments Alk Phos (test code = Alk Phos) 114 39-136 [facility]2016-12-22 20:45:00 Test Item Value Reference Range Interpretation Comments AST (test code = AST) 18 See_Comment [Auto mated message] The system which ge nerated this result transmit katerin reference range : <=37. The reference range was not used to interpr et this result as carlita l/abnormal. [facility]2016-12-22 20:45:00 Test Item Value Reference Range Interpretation Comments ALT (test code = ALT) 21 See_Comment [Auto mated message] The system which ge nerated this result transmit katerin reference range : <=65. The reference range was not used to interpr et this result as carlita l/abnormal. [place] [id number] 20:45:00 Test Item Value Reference Range Interpretation Comments Bili Total (test code = Bili Total) 0.4 0.2-1.3 [facility]2016-12-22 20:45:00 Test Item Value Reference Range Interpretation Comments Total Protein (test code = Total 8.0 6.4-8.4 Protein) [facility]2016-12-22 20:45:00 Test Item Value Reference Range Interpretation Comments AGAP (test code = AGAP) 22.4 10.0-20.0 [facility]2016-12-22 20:45:00 Test Item Value Reference Range Interpretation Comments B/C Ratio (test code = B/C Ratio) 20 - [facility]2016-12-22 20:45:00 Test Item Value Reference Range Interpretation Comments Globulin (test code = Globulin) 3.9 2.7-4.2 [facility]2016-12-22 20:45:00 Test Item Value Reference Range Interpretation Comments A/G Ratio (test code = A/G Ratio) 1.1 0.7-1.6 [facility]2016-12-22 20:45:00 Test Item Value Reference Range Interpretation Comments Lactic Acid Lvl (test code = Lactic 3.2 0.5-2.2 Acid Lvl) [facility]2016-12-22 20:45:00 Test Item Value Reference Range Interpretation Comments Calcium Lvl (test code = Calcium Lvl) 9.6 8.5-10.5 [facility]2016-12-22 20:45:00 Test Item Value Reference Range Interpretation Comments CO2 (test code = CO2) 20 24-32 [facility]2016-12-22 20:45:00 Test Item Value Reference Range Interpretation Comments Chloride Lvl (test code = Chloride Lvl) 103 95-109 [facility]2016-12-22 20:45:00 Test Item Value Reference Range Interpretation Comments Sodium Lvl (test code = Sodium Lvl) 142 135-145 [facility]2016-12-22 20:45:00 Test Item Value Reference Range Interpretation Comments Potassium Lvl (test code = Potassium 3.4 3.5-5.1 Lvl) [facility]2016-12-22 20:45:00 Test Item Value Reference Range Interpretation Comments Glucose Lvl (test code = Glucose Lvl) 116 70-99 [facility]2016-12-22 20:45:00 Test Item Value Reference Range Interpretation Comments Creatinine Lvl (test code = Creatinine 0.95 0.50-1.40 Lvl) [facility]2016-12-22 20:45:00 Test Item Value Reference Range Interpretation Comments BUN (test code = BUN) 19 7-22 [facility]2016-12-22 20:45:00 Test Item Value Reference Range Interpretation Comments eGFR (test code = eGFR) 134 [facility]2016-12-22 20:45:00 Test Item Value Reference Range Interpretation Comments Albumin Lvl (test code = Albumin Lvl) 4.1 3.5-5.0 [facility]2016-12-22 20:45:00 Test Item Value Reference Range Interpretation Comments Alk Phos (test code = Alk Phos) 114 39-136 [facility]2016-12-22 20:45:00 Test Item Value Reference Range Interpretation Comments AST (test code = AST) 18 See_Comment [Auto mated message] The system which ge nerated this result transmit katerin reference range : <=37. The reference range was not used to interpr et this result as carlita l/abnormal. [facility]2016-12-22 20:45:00 Test Item Value Reference Range Interpretation Comments ALT (test code = ALT) 21 See_Comment [Auto mated message] The system which ge nerated this result transmit katerin reference range : <=65. The reference range was not used to interpr et this result as carlita l/abnormal. [facility]2016-12-22 20:45:00 Test Item Value Reference Range Interpretation Comments Bili Total (test code = Bili Total) 0.4 0.2-1.3 [place] [id number] 20:45:00 Test Item Value Reference Range Interpretation Comments Total Protein (test code = Total 8.0 6.4-8.4 Protein) [facility]2016-12-22 20:45:00 Test Item Value Reference Range Interpretation Comments AGAP (test code = AGAP) 22.4 10.0-20.0 [place] [id number] 20:45:00 Test Item Value Reference Range Interpretation Comments B/C Ratio (test code = B/C Ratio) 20 - [facility]2016-12-22 20:45:00 Test Item Value Reference Range Interpretation Comments Globulin (test code = Globulin) 3.9 2.7-4.2 [facility]2016-12-22 20:45:00 Test Item Value Reference Range Interpretation Comments A/G Ratio (test code = A/G Ratio) 1.1 0.7-1.6 [facility]2016-12-22 20:45:00 Test Item Value Reference Range Interpretation Comments Lactic Acid Lvl (test code = Lactic 3.2 0.5-2.2 Acid Lvl) [facility]2016-12-22 20:45:00 Test Item Value Reference Range Interpretation Comments Calcium Lvl (test code = Calcium Lvl) 9.6 8.5-10.5 [facility]2016-12-22 20:45:00 Test Item Value Reference Range Interpretation Comments CO2 (test code = CO2) - [facility]2016-12-22 20:45:00 Test Item Value Reference Range Interpretation Comments Chloride Lvl (test code = Chloride Lvl) 103 95-109 [facility]2016-12-22 20:45:00 Test Item Value Reference Range Interpretation Comments Sodium Lvl (test code = Sodium Lvl) 142 135-145 [facility]2016-12-22 20:45:00 Test Item Value Reference Range Interpretation Comments Potassium Lvl (test code = Potassium 3.4 3.5-5.1 Lvl) [facility]2016-12-22 20:45:00 Test Item Value Reference Range Interpretation Comments Glucose Lvl (test code = Glucose Lvl) 116 70-99 [facility]2016-12-22 20:45:00 Test Item Value Reference Range Interpretation Comments Creatinine Lvl (test code = Creatinine 0.95 0.50-1.40 Lvl) [facility]2016-12-22 20:45:00 Test Item Value Reference Range Interpretation Comments BUN (test code = BUN) 19 - [facility]2016-12-22 20:45:00 Test Item Value Reference Range Interpretation Comments eGFR (test code = eGFR) 134 [facility]2016-12-22 20:45:00 Test Item Value Reference Range Interpretation Comments Albumin Lvl (test code = Albumin Lvl) 4.1 3.5-5.0 [facility]2016-12-22 20:45:00 Test Item Value Reference Range Interpretation Comments Calcium Lvl (test code = Calcium Lvl) 9.6 8.5-10.5 [facility]2016-12-22 20:45:00 Test Item Value Reference Range Interpretation Comments Alk Phos (test code = Alk Phos) 114 39-136 [facility]2016-12-22 20:45:00 Test Item Value Reference Range Interpretation Comments CO2 (test code = CO2) 20 24-32 [facility]2016-12-22 20:45:00 Test Item Value Reference Range Interpretation Comments AST (test code = AST) 18 See_Comment [Auto mated message] The system which ge nerated this result transmit katerin reference range : <=37. The reference range was not used to interpr et this result as carlita l/abnormal. [facility]2016-12-22 20:45:00 Test Item Value Reference Range Interpretation Comments Chloride Lvl (test code = Chloride Lvl) 103 95-109 [facility]2016-12-22 20:45:00 Test Item Value Reference Range Interpretation Comments ALT (test code = ALT) 21 See_Comment [Auto mated message] The system which ge nerated this result transmit katerin reference range : <=65. The reference range was not used to interpr et this result as carlita l/abnormal. [facility]2016-12-22 20:45:00 Test Item Value Reference Range Interpretation Comments Sodium Lvl (test code = Sodium Lvl) 142 135-145 [facility]2016-12-22 20:45:00 Test Item Value Reference Range Interpretation Comments Bili Total (test code = Bili Total) 0.4 0.2-1.3 [facility]2016-12-22 20:45:00 Test Item Value Reference Range Interpretation Comments Potassium Lvl (test code = Potassium 3.4 3.5-5.1 Lvl) [facility]2016-12-22 20:45:00 Test Item Value Reference Range Interpretation Comments Total Protein (test code = Total 8.0 6.4-8.4 Protein) [facility]2016-12-22 20:45:00 Test Item Value Reference Range Interpretation Comments Glucose Lvl (test code = Glucose Lvl) 116 70-99 [facility]2016-12-22 20:45:00 Test Item Value Reference Range Interpretation Comments AGAP (test code = AGAP) 22.4 10.0-20.0 [facility]2016-12-22 20:45:00 Test Item Value Reference Range Interpretation Comments Creatinine Lvl (test code = Creatinine 0.95 0.50-1.40 Lvl) [facility]2016-12-22 20:45:00 Test Item Value Reference Range Interpretation Comments B/C Ratio (test code = B/C Ratio) 20 6- [facility]2016-12-22 20:45:00 Test Item Value Reference Range Interpretation Comments BUN (test code = BUN) 19 - [facility]2016-12-22 20:45:00 Test Item Value Reference Range Interpretation Comments Globulin (test code = Globulin) 3.9 2.7-4.2 [facility]2016-12-22 20:45:00 Test Item Value Reference Range Interpretation Comments eGFR (test code = eGFR) 134 [facility]2016-12-22 20:45:00 Test Item Value Reference Range Interpretation Comments A/G Ratio (test code = A/G Ratio) 1.1 0.7-1.6 [place] [id number] 20:45:00 Test Item Value Reference Range Interpretation Comments Lactic Acid Lvl (test code = Lactic 3.2 0.5-2.2 Acid Lvl) [facility]2016-12-22 20:45:00 Test Item Value Reference Range Interpretation Comments Albumin Lvl (test code = Albumin Lvl) 4.1 3.5-5.0 [facility]2016-12-22 20:45:00 Test Item Value Reference Range Interpretation Comments Alk Phos (test code = Alk Phos) 114 39-136 [facility]2016-12-22 20:45:00 Test Item Value Reference Range Interpretation Comments AST (test code = AST) 18 See_Comment [Auto mated message] The system which ge nerated this result transmit katerin reference range : <=37. The reference range was not used to interpr et this result as carlita l/abnormal. [facility]2016-12-22 20:45:00 Test Item Value Reference Range Interpretation Comments ALT (test code = ALT) 21 See_Comment [Auto mated message] The system which ge nerated this result transmit katerin reference range : <=65. The reference range was not used to interpr et this result as carlita l/abnormal. [facility]2016-12-22 20:45:00 Test Item Value Reference Range Interpretation Comments Bili Total (test code = Bili Total) 0.4 0.2-1.3 [facility]2016-12-22 20:45:00 Test Item Value Reference Range Interpretation Comments Total Protein (test code = Total 8.0 6.4-8.4 Protein) [facility]2016-12-22 20:45:00 Test Item Value Reference Range Interpretation Comments AGAP (test code = AGAP) 22.4 10.0-20.0 [place] [id number] 20:45:00 Test Item Value Reference Range Interpretation Comments B/C Ratio (test code = B/C Ratio) 20 6-25 [place] [id number] 20:45:00 Test Item Value Reference Range Interpretation Comments Globulin (test code = Globulin) 3.9 2.7-4.2 [facility]2016-12-22 20:45:00 Test Item Value Reference Range Interpretation Comments A/G Ratio (test code = A/G Ratio) 1.1 0.7-1.6 [place] [id number] 20:45:00 Test Item Value Reference Range Interpretation Comments Lactic Acid Lvl (test code = Lactic 3.2 0.5-2.2 Acid Lvl) [id number] 05:45:00 Test Item Value Reference Range Interpretation Comments Lactic Acid Lvl (test code = Lactic 1.0 0.5-2.2 N Acid Lvl) [facility] TexasLkgstvpDIUWWJRME4327-42-45 05:45:00 Test Item Value Reference Range Interpretation Comments Lactic Acid Lvl (test code = Lactic 1.0 0.5-2.2 N Acid Lvl) [facility] TexasNzngjinAMVQXKHBL4474-10-15 05:45:00 Test Item Value Reference Range Interpretation Comments Lactic Acid Lvl (test code = Lactic 1.0 0.5-2.2 N Acid Lvl) [facility] TexasQqunalgTVYSTMNXC5644-57-20 05:45:00 Test Item Value Reference Range Interpretation Comments Lactic Acid Lvl (test code = Lactic 1.0 0.5-2.2 N Acid Lvl) [facility] TexasDfgylgwVGEQGWOJA0507-58-99 05:45:00 Test Item Value Reference Range Interpretation Comments Lactic Acid Lvl (test code = Lactic 1.0 0.5-2.2 N Acid Lvl) [facility] TexasJdmcayuCOUOEWSZI7695-41-90 05:45:00 Test Item Value Reference Range Interpretation Comments Lactic Acid Lvl (test code = Lactic 1.0 0.5-2.2 N Acid Lvl) [facility] TexasAtkyoqtHCNTGHATU6314-60-25 05:45:00 Test Item Value Reference Range Interpretation Comments Lactic Acid Lvl (test code = Lactic 1.0 0.5-2.2 N Acid Lvl) [place] 220[address]-11-20 05:45:00 Test Item Value Reference Range Interpretation Comments Lactic Acid Lvl (test code = Lactic 1.0 0.5-2.2 N Acid Lvl) [facility] TexasIzkljgpOZWVVNXYV1537-03-84 05:45:00 Test Item Value Reference Range Interpretation Comments Lactic Acid Lvl (test code = Lactic 1.0 0.5-2.2 N Acid Lvl) [facility] [id number] 05:45:00 Test Item Value Reference Range Interpretation Comments Lactic Acid Lvl (test code = Lactic 1.0 0.5-2.2 N Acid Lvl) [facility] TexasRytjolgDQFFPGMAE5820-27-77 05:45:00 Test Item Value Reference Range Interpretation Comments Lactic Acid Lvl (test code = Lactic 1.0 0.5-2.2 N Acid Lvl) [facility] TexasTejuxfhGQUYYMWXU1261-52-55 05:45:00 Test Item Value Reference Range Interpretation Comments Lactic Acid Lvl (test code = Lactic 1.0 0.5-2.2 N Acid Lvl) [facility] TexasVgzjvhlSNVNIORGF8490-20-67 05:45:00 Test Item Value Reference Range Interpretation Comments Lactic Acid Lvl (test code = Lactic 1.0 0.5-2.2 N Acid Lvl) [facility]acjzmiSRJVKUYPZ2228-89-25 05:45:00 Test Item Value Reference Range Interpretation Comments Lactic Acid Lvl (test code = Lactic 1.0 0.5-2.2 N Acid Lvl) [facility] SatrrlyIJFMGLZIK0265-51-52 05:45:00 Test Item Value Reference Range Interpretation Comments Lactic Acid Lvl (test code = Lactic 1.0 0.5-2.2 N Acid Lvl) [facility] [employer] [id number] 03:25:00 Test Item Value Reference Range Interpretation Comments Antibody Scrn (test Negative (08/17/2013 N code = Antibody Scrn) 21:25:00) [employer] [id number] 03:25:00 Test Item Value Reference Range Interpretation Comments ABO/Rh (test code = ABO/Rh) O POS [facility] [employer] [id number] 03:25:00 Test Item Value Reference Range Interpretation Comments Antibody Scrn (test Negative (08/17/2013 N code = Antibody Scrn) 21:25:00) [facility] [employer] [id number] 03:25:00 Test Item Value Reference Range Interpretation Comments ABO/Rh (test code = ABO/Rh) O POS [employer] [id number] 03:25:00 Test Item Value Reference Range Interpretation Comments Antibody Scrn (test Negative (08/17/2013 N code = Antibody Scrn) 21:25:00) [employer] [id number] 03:25:00 Test Item Value Reference Range Interpretation Comments ABO/Rh (test code = ABO/Rh) O POS [facility] [employer] [id number] 03:25:00 Test Item Value Reference Range Interpretation Comments Antibody Scrn (test Negative (08/17/2013 N code = Antibody Scrn) 21:25:00) [employer] [id number] 03:25:00 Test Item Value Reference Range Interpretation Comments ABO/Rh (test code = ABO/Rh) O POS [employer] [id number] 03:25:00 Test Item Value Reference Range Interpretation Comments Antibody Scrn (test Negative (08/17/2013 N code = Antibody Scrn) 21:25:00) [facility] [id number] 03:25:00 Test Item Value Reference Range Interpretation Comments ABO/Rh (test code = ABO/Rh) O POS [facility] [employer] [id number] 03:25:00 Test Item Value Reference Range Interpretation Comments Antibody Scrn (test Negative (08/17/2013 N code = Antibody Scrn) 21:25:00) [facility] [employer] [id number] 03:25:00 Test Item Value Reference Range Interpretation Comments ABO/Rh (test code = ABO/Rh) O [facility] [employer] [id number] 03:25:00 Test Item Value Reference Range Interpretation Comments Antibody Scrn (test Negative (08/17/2013 N code = Antibody Scrn) 21:25:00) [facility] [employer] [id number] 03:25:00 Test Item Value Reference Range Interpretation Comments ABO/Rh (test code = ABO/Rh) O [facility] [employer] [id number] 03:25:00 Test Item Value Reference Range Interpretation Comments Antibody Scrn (test Negative (08/17/2013 N code = Antibody Scrn) 21:25:00) [facility] [employer] [id number] 03:25:00 Test Item Value Reference Range Interpretation Comments ABO/Rh (test code = ABO/Rh) O [facility] [employer] [facility] [id number] 03:25:00 Test Item Value Reference Range Interpretation Comments Antibody Scrn (test Negative (08/17/2013 N code = Antibody Scrn) 21:25:00) [facility] [employer] [id number] 03:25:00 Test Item Value Reference Range Interpretation Comments ABO/Rh (test code = ABO/Rh) O [facility] [employer] [id number] 03:25:00 Test Item Value Reference Range Interpretation Comments Antibody Scrn (test Negative (08/17/2013 N code = Antibody Scrn) 21:25:00) [facility] [employer] [id number] 03:25:00 Test Item Value Reference Range Interpretation Comments ABO/Rh (test code = ABO/Rh) O [facility] [employer] [id number] 03:25:00 Test Item Value Reference Range Interpretation Comments Antibody Scrn (test Negative (08/17/2013 N code = Antibody Scrn) 21:25:00) [facility] [employer] [id number] 03:25:00 Test Item Value Reference Range Interpretation Comments ABO/Rh (test code = ABO/Rh) O POS [facility] [employer] [id number] 03:25:00 Test Item Value Reference Range Interpretation Comments Antibody Scrn (test Negative (08/17/2013 N code = Antibody Scrn) 21:25:00) [facility] [employer] [id number] 03:25:00 Test Item Value Reference Range Interpretation Comments ABO/Rh (test code = ABO/Rh) O POS [employer] [id number] 03:25:00 Test Item Value Reference Range Interpretation Comments Antibody Scrn (test Negative (08/17/2013 N code = Antibody Scrn) 21:25:00) [facility] [employer] [id number] 03:25:00 Test Item Value Reference Range Interpretation Comments ABO/Rh (test code = ABO/Rh) O POS [facility] [employer] [id number] 03:25:00 Test Item Value Reference Range Interpretation Comments Antibody Scrn (test Negative (08/17/2013 N code = Antibody Scrn) 21:25:00) [facility] [employer] [id number] 03:25:00 Test Item Value Reference Range Interpretation Comments ABO/Rh (test code = ABO/Rh) O [facility] [employer] [id number] 03:25:00 Test Item Value Reference Range Interpretation Comments Antibody Scrn (test Negative (08/17/2013 N code = Antibody Scrn) 21:25:00) [employer] [id number] 03:25:00 Test Item Value Reference Range Interpretation Comments ABO/Rh (test code = ABO/Rh) O POS [facility] [id number] 01:58:49 Test Item Value Reference Range Interpretation Comments O2 Sat Stoney (test code = O2 Sat Stoney) 41.9 40.0-70.0 N [facility] [id number] 01:58:49 Test Item Value Reference Range Interpretation Comments Temp Stoney (test code = Temp Stoney) 37.0 [id number] 01:58:49 Test Item Value Reference Range Interpretation Comments HCO3 Stoney (test code = HCO3 Stoney) 24 - N [facility] [id number] 01:58:49 Test Item Value Reference Range Interpretation Comments BE Stoney (test code = 1 See_Comment N [Automa katerin message] The BE Stoney) system which ge nerated this result transmit katerin reference range : <=2. The reference range was not used to interpr et this result as carlita l/abnormal. [facility] [id number] 01:58:49 Test Item Value Reference Range Interpretation Comments pO2 Stoney (test code = pO2 Stoney) - N [facility] [id number] 01:58:49 Test Item Value Reference Range Interpretation Comments pCO2 Stoney (test code = pCO2 Stoney) 34 38-52 L [facility] [id number] 01:58:49 Test Item Value Reference Range Interpretation Comments pH Stoney (test code = pH Stoney) 7.46 7.28-7.42 H [facility] [id number] 01:58:49 Test Item Value Reference Range Interpretation Comments O2 Sat Stoney (test code = O2 Sat Stoney) 41.9 40.0-70.0 N [facility] TexasYhiohhvBTAYRZBOT7973-98-10 01:58:49 Test Item Value Reference Range Interpretation Comments Temp Stoney (test code = Temp Stoney) 37.0 [facility] TexasOiikkmcEWJDNDGZM6649-19-19 01:58:49 Test Item Value Reference Range Interpretation Comments HCO3 Stoney (test code = HCO3 Stoney) - N [facility] [id number] 01:58:49 Test Item Value Reference Range Interpretation Comments BE Stoney (test code = 1 See_Comment N [Automa katerin message] The BE Stoney) system which ge nerated this result transmit katerin reference range : <=2. The reference range was not used to interpr et this result as carlita l/abnormal. [facility] [id number] 01:58:49 Test Item Value Reference Range Interpretation Comments pO2 Stonye (test code = pO2 Stoney) 22 20-49 N [facility] TexasFybkpyrFKQGTURSU6814-67-43 01:58:49 Test Item Value Reference Range Interpretation Comments pCO2 Stnoey (test code = pCO2 Stoney) 34 38-52 L [facility] TexasJnuufvzFBKBWCGLR1330-61-01 01:58:49 Test Item Value Reference Range Interpretation Comments pH Stoney (test code = pH Stoney) 7.46 7.28-7.42 H [facility] TexasCdsvximDCKPELATC8024-04-27 01:58:49 Test Item Value Reference Range Interpretation Comments O2 Sat Stoney (test code = O2 Sat Stoney) 41.9 40.0-70.0 N [facility] TexasMfjsslpKOMFYZLWK1136-01-98 01:58:49 Test Item Value Reference Range Interpretation Comments Temp Stoney (test code = Temp Stoney) 37.0 [facility] TexasRfpkrrsSCTDAIXVF1804-71-73 01:58:49 Test Item Value Reference Range Interpretation Comments HCO3 Stoney (test code = HCO3 Stoney) - N [facility] [id number] 01:58:49 Test Item Value Reference Range Interpretation Comments BE Stoney (test code = 1 See_Comment N [Automa katerin message] The BE Stoney) system which ge nerated this result transmit katerin reference range : <=2. The reference range was not used to interpr et this result as carlita l/abnormal. [facility] [id number] 01:58:49 Test Item Value Reference Range Interpretation Comments pO2 Stoney (test code = pO2 Stoney) 22 20-49 N [facility] TexasKehychbWVRRGCPRY9622-80-47 01:58:49 Test Item Value Reference Range Interpretation Comments pCO2 Stoney (test code = pCO2 Stoney) 34 38-52 L [facility] TexasArzjuyuPAAUXIYBH2698-66-27 01:58:49 Test Item Value Reference Range Interpretation Comments pH Stoney (test code = pH Stoney) 7.46 7.28-7.42 H [facility] TexasYhudckcNEATKWTIR5017-15-56 01:58:49 Test Item Value Reference Range Interpretation Comments O2 Sat Stoney (test code = O2 Sat Stoney) 41.9 40.0-70.0 N [facility] TexasZecueazYTVVKCWMV4065-77-62 01:58:49 Test Item Value Reference Range Interpretation Comments Temp Stoney (test code = Temp Stoney) 37.0 [facility] TexasSvszfhqWQMZKZJYF3854-60-13 01:58:49 Test Item Value Reference Range Interpretation Comments HCO3 Stoney (test code = HCO3 Stoney) 24 22- N [facility] [id number] 01:58:49 Test Item Value Reference Range Interpretation Comments BE Stoney (test code = 1 See_Comment N [Automa katerin message] The BE Stoney) system which ge nerated this result transmit katerin reference range : <=2. The reference range was not used to interpr et this result as carlita l/abnormal. [facility] TexasWikqxmnOMVYFDDBD7529-71-85 01:58:49 Test Item Value Reference Range Interpretation Comments pO2 Stoney (test code = pO2 Stoney) 22 20-49 N [facility] [place]EcgmdnkJKUORPEWZ1783-78-64 01:58:49 Test Item Value Reference Range Interpretation Comments pCO2 Stoney (test code = pCO2 Stoney) 34 38-52 L [facility] [place]GgzfqraDWGVZKNOH2889-99-74 01:58:49 Test Item Value Reference Range Interpretation Comments pH Stoney (test code = pH Stoney) 7.46 7.28-7.42 H [facility] TexasUbcwpvgYXXEERUQN6053-68-06 01:58:49 Test Item Value Reference Range Interpretation Comments O2 Sat Stoney (test code = O2 Sat Stoney) 41.9 40.0-70.0 N [facility] TexasZkqttrvQTQXZGBEJ1439-98-07 01:58:49 Test Item Value Reference Range Interpretation Comments Temp Stoney (test code = Temp Stoney) 37.0 [facility] TexasHftplyyTAHINBWOZ5818-50-61 01:58:49 Test Item Value Reference Range Interpretation Comments HCO3 Stoney (test code = HCO3 Stoney) 24 22-26 N [facility] TexasMtldziyPWNMIKJDH7406-65-52 01:58:49 Test Item Value Reference Range Interpretation Comments BE Stoney (test code = 1 See_Comment N [Automa katerin message] The BE Stoney) system which ge nerated this result transmit katerin reference range : <=2. The reference range was not used to interpr et this result as carlita l/abnormal. [facility] TexasMstlirtMKAOWANQH0606-58-84 01:58:49 Test Item Value Reference Range Interpretation Comments pO2 Stoney (test code = pO2 Stoney) 22 20-49 N [facility] TexasRvpkwfbUILLPGKVS8908-52-03 01:58:49 Test Item Value Reference Range Interpretation Comments pCO2 Stoney (test code = pCO2 Stoney) 34 38-52 L [facility] TexasPqcgpbqKUFPDFTAQ8713-29-31 01:58:49 Test Item Value Reference Range Interpretation Comments pH Stoney (test code = pH Stoney) 7.46 7.28-7.42 H [facility] TexasIzcovlkWKKDAXITN5266-51-03 01:58:49 Test Item Value Reference Range Interpretation Comments O2 Sat Stoney (test code = O2 Sat Stoney) 41.9 40.0-70.0 N [facility] TexasRzpzhwaPJFRSCHPO0256-84-88 01:58:49 Test Item Value Reference Range Interpretation Comments Temp Stoney (test code = Temp Stoney) 37.0 [facility] TexasCbydwafYUETIXOLJ9884-38-75 01:58:49 Test Item Value Reference Range Interpretation Comments HCO3 Stoney (test code = HCO3 Stoney) 24 - N [facility] TexasCsqzqywSZIXEIIXK7172-12-75 01:58:49 Test Item Value Reference Range Interpretation Comments BE Stoney (test code = 1 See_Comment N [Automa katerin message] The BE Stoney) system which ge nerated this result transmit katerin reference range : <=2. The reference range was not used to interpr et this result as carlita l/abnormal. [facility] TexasIodmjtsUBURNODJH4513-27-25 01:58:49 Test Item Value Reference Range Interpretation Comments pO2 Stoney (test code = pO2 Stoney) 22 20- N [facility] TexasYchzjgnSKNAZSYVP6294-92-20 01:58:49 Test Item Value Reference Range Interpretation Comments pCO2 Stoney (test code = pCO2 Stoney) 34 38-52 L [facility] TexasWraghptPRJQQYPNO6893-68-25 01:58:49 Test Item Value Reference Range Interpretation Comments pH Stoney (test code = pH Stoney) 7.46 7.28-7.42 H [facility] TexasOtldyxiWSKUNJGKR6924-35-28 01:58:49 Test Item Value Reference Range Interpretation Comments O2 Sat Stoney (test code = O2 Sat Stoney) 41.9 40.0-70.0 N [facility] TexasCsteryuNAMUEFUDB2080-87-41 01:58:49 Test Item Value Reference Range Interpretation Comments Temp Stoney (test code = Temp Stoney) 37.0 [facility] TexasKqvddziXBFXFHGFK3988-00-00 01:58:49 Test Item Value Reference Range Interpretation Comments HCO3 Stoney (test code = HCO3 Stoney) - N [facility] TexasQdeizozAGFBNNSOD8031-56-67 01:58:49 Test Item Value Reference Range Interpretation Comments BE Stoney (test code = 1 See_Comment N [Automa katerin message] The BE Stoney) system which ge nerated this result transmit katerin reference range : <=2. The reference range was not used to interpr et this result as carlita l/abnormal. [facility] TexasNvzoephHBGBVJTOQ4540-52-20 01:58:49 Test Item Value Reference Range Interpretation Comments pO2 Stoney (test code = pO2 Stoney) 22 20- N [facility] TexasCzekcfxTQPTOKWBE0225-97-48 01:58:49 Test Item Value Reference Range Interpretation Comments pCO2 Stoney (test code = pCO2 Stoney) 34 38-52 L [facility] TexasGesitgdWFJIETYNI3426-17-80 01:58:49 Test Item Value Reference Range Interpretation Comments pH Stoney (test code = pH Stoney) 7.46 7.28-7.42 H [facility] TexasRyhniziPIHMTWTSW3455-18-64 01:58:49 Test Item Value Reference Range Interpretation Comments O2 Sat Stoney (test code = O2 Sat Stoney) 41.9 40.0-70.0 N [facility] TexasPhxylemYCOTOBIAH7890-32-88 01:58:49 Test Item Value Reference Range Interpretation Comments Temp Stoney (test code = Temp Stoney) 37.0 [facility] TexasNxkprmtDZQVMMHNB2198-65-31 01:58:49 Test Item Value Reference Range Interpretation Comments HCO3 Stoney (test code = HCO3 Stoney) 24 - N [facility] TexasBgkypirXIPEKMGIX9098-30-77 01:58:49 Test Item Value Reference Range Interpretation Comments BE Stoney (test code = 1 See_Comment N [Automa katerin message] The BE Stoney) system which ge nerated this result transmit katerin reference range : <=2. The reference range was not used to interpr et this result as carlita l/abnormal. [facility] TexasAypmutpIXUHWKDMM9777-83-46 01:58:49 Test Item Value Reference Range Interpretation Comments pO2 Stoney (test code = pO2 Stoney) - N [facility] TexasRbbifknPKQIMHRCH8030-02-15 01:58:49 Test Item Value Reference Range Interpretation Comments pCO2 Stoney (test code = pCO2 Stoney) 34 38-52 L [facility] TexasUtngkmwAVKTEZAMD4630-83-80 01:58:49 Test Item Value Reference Range Interpretation Comments pH Stoney (test code = pH Stoney) 7.46 7.28-7.42 H [facility] TexasDzqieewFFZNYBKTJ1991-74-48 01:58:49 Test Item Value Reference Range Interpretation Comments O2 Sat Stoney (test code = O2 Sat Stoney) 41.9 40.0-70.0 N [facility] TexasJpbeftfJPTPREWHR6595-38-02 01:58:49 Test Item Value Reference Range Interpretation Comments Temp Stoney (test code = Temp Stoney) 37.0 [facility] TexasLlsonzjFRIZPAKPA2544-05-10 01:58:49 Test Item Value Reference Range Interpretation Comments HCO3 Stoney (test code = HCO3 Stoney) - N [facility] TexasOzxlcihNIDERRHCH3674-06-73 01:58:49 Test Item Value Reference Range Interpretation Comments BE Stoney (test code = 1 See_Comment N [Automa katerin message] The BE Stoney) system which ge nerated this result transmit katerin reference range : <=2. The reference range was not used to interpr et this result as carlita l/abnormal. [facility] TexasMdrsipqZDEJRIGCO0649-05-54 01:58:49 Test Item Value Reference Range Interpretation Comments pO2 Stoney (test code = pO2 Stoney) N [facility] TexasOtduhkeIJTLRRKFU7690-41-98 01:58:49 Test Item Value Reference Range Interpretation Comments pCO2 Stoney (test code = pCO2 Stoney) 34 38-52 L [facility] TexasSoyphuaPRFHQONOW7226-48-84 01:58:49 Test Item Value Reference Range Interpretation Comments pH Stoney (test code = pH [place]) 7.46 7.28-7.42 H [facility] TexasLkrprcfEIUGDHGJX5609-05-54 01:58:49 Test Item Value Reference Range Interpretation Comments O2 Sat Stoney (test code = O2 Sat Stoney) 41.9 40.0-70.0 N [facility] TexasFtmenjpBFWMAFQOD2606-94-73 01:58:49 Test Item Value Reference Range Interpretation Comments Temp Stoney (test code = Temp Stoney) 37.0 [facility] TexasSphvwroWXNQFMNQX5378-05-91 01:58:49 Test Item Value Reference Range Interpretation Comments HCO3 Stoney (test code = HCO3 Stoney) N [facility] TexasJqzzcuvHHMVHRCHE5447-05-15 01:58:49 Test Item Value Reference Range Interpretation Comments BE Stoney (test code = 1 See_Comment N [Automa katerin message] The BE Stoney) system which ge nerated this result transmit katerin reference range : <=2. The reference range was not used to interpr et this result as carlita l/abnormal. [facility] TexasDizrmzpYQMYPIIVJ4654-40-06 01:58:49 Test Item Value Reference Range Interpretation Comments pO2 Stoney (test code = pO2 Stoney) N [facility] TexasPjivubgWOUQPXBTF9503-36-91 01:58:49 Test Item Value Reference Range Interpretation Comments pCO2 Stoney (test code = pCO2 Stoney) 34 38-52 L [facility] TexasNhaoccsZNQUNSLRU3264-95-62 01:58:49 Test Item Value Reference Range Interpretation Comments pH Stoney (test code = pH Stoney) 7.46 7.28-7.42 H [facility] [place]XjssgjoVBEDMJJWO5365-49-00 01:58:49 Test Item Value Reference Range Interpretation Comments O2 Sat Stoney (test code = O2 Sat Stoney) 41.9 40.0-70.0 N [facility] TexasPtdakseFMDOSPUPR6126-51-03 01:58:49 Test Item Value Reference Range Interpretation Comments Temp Stoney (test code = Temp Stoney) 37.0 [facility] TexasFtqniasSRPHTNUAX1829-09-67 01:58:49 Test Item Value Reference Range Interpretation Comments HCO3 Stoney (test code = HCO3 Stoney) - N [facility] TexasAbpzraaGAUCIBWWF3889-22-18 01:58:49 Test Item Value Reference Range Interpretation Comments BE Stoney (test code = 1 See_Comment N [Automa katerin message] The BE Stoney) system which ge nerated this result transmit katerin reference range : <=2. The reference range was not used to interpr et this result as carlita l/abnormal. [facility] TexasMgskpghFQIPUTOMD4515-78-58 01:58:49 Test Item Value Reference Range Interpretation Comments pO2 Stoney (test code = pO2 Stoney) 22 20-49 N [facility] TexasFhbwhrvEGRXOKGOP9651-96-37 01:58:49 Test Item Value Reference Range Interpretation Comments pCO2 Stoney (test code = pCO2 Stoney) 34 38-52 L [facility] TexasEjsdgtbNYZPZLKTZ8032-46-16 01:58:49 Test Item Value Reference Range Interpretation Comments pH Stoney (test code = pH Stoney) 7.46 7.28-7.42 H [facility] TexasSrzwokfHXTGTZMCL4530-29-05 01:58:49 Test Item Value Reference Range Interpretation Comments O2 Sat Stoney (test code = O2 Sat Stoney) 41.9 40.0-70.0 N [facility] TexasQixygmdYUEAMIVOT1160-11-73 01:58:49 Test Item Value Reference Range Interpretation Comments Temp Stoney (test code = Temp Stoney) 37.0 [facility] TexasUcfzitaRTTYIZHVQ8612-27-66 01:58:49 Test Item Value Reference Range Interpretation Comments HCO3 Stoney (test code = HCO3 Stoney) - N [facility] CenterHsdnmviFRYGXNCME5993-66-41 01:58:49 Test Item Value Reference Range Interpretation Comments BE Stoney (test code = 1 See_Comment N [Automa katerin message] The BE Stoney) system which ge nerated this result transmit katerin reference range : <=2. The reference range was not used to interpr et this result as carlita l/abnormal. [facility] CenterPvpitdzVBUULHCID7213-46-67 01:58:49 Test Item Value Reference Range Interpretation Comments pO2 Stoney (test code = pO2 Stoney) - N [facility] CenterVrndxhjUUYNKBEDZ1282-14-07 01:58:49 Test Item Value Reference Range Interpretation Comments pCO2 Stoney (test code = pCO2 Stoney) 34 38-52 L [facility] [place]YykkbvlMBHLPFMOX2533-04-40 01:58:49 Test Item Value Reference Range Interpretation Comments pH Stoney (test code = pH Stoney) 7.46 7.28-7.42 H [facility] TexasJbaebetOASNVIRWT7411-04-70 01:58:49 Test Item Value Reference Range Interpretation Comments O2 Sat Stoney (test code = O2 Sat Stoney) 41.9 40.0-70.0 N [facility] CenterHdpgzyfYFQHQVORH5779-14-31 01:58:49 Test Item Value Reference Range Interpretation Comments Temp Stoney (test code = Temp Stoney) 37.0 [facility] CenterOwjbqvaVFBNUWZSP9872-35-77 01:58:49 Test Item Value Reference Range Interpretation Comments HCO3 Stoney (test code = HCO3 Stoney) - N [facility] CenterSagyowoDPPMLGAIP3092-24-29 01:58:49 Test Item Value Reference Range Interpretation Comments BE Stoney (test code = 1 See_Comment N [Automa katerin message] The BE Stoney) system which ge nerated this result transmit katerin reference range : <=2. The reference range was not used to interpr et this result as carlita l/abnormal. [facility] CenterOrcvbrmNVQDXBEZJ5319-10-17 01:58:49 Test Item Value Reference Range Interpretation Comments pO2 Stoney (test code = pO2 Stoney) - N [facility] TexasUwaizmcTOHQOVAPZ0417-17-12 01:58:49 Test Item Value Reference Range Interpretation Comments pCO2 Stoney (test code = pCO2 Stoney) 34 38-52 L [facility] TexasSmzfahdOREHHOKWC2520-71-30 01:58:49 Test Item Value Reference Range Interpretation Comments pH Stoney (test code = pH Stoney) 7.46 7.28-7.42 H [facility] [place]ZnvsrkpDUSSLWGTY1364-83-11 01:58:49 Test Item Value Reference Range Interpretation Comments O2 Sat Stoney (test code = O2 Sat Stoney) 41.9 40.0-70.0 N [facility] TexasNyzjzmbUJGRHHZKE4975-88-04 01:58:49 Test Item Value Reference Range Interpretation Comments Temp Stoney (test code = Temp Stoney) 37.0 [facility] TexasWghlwtvOPNVGHFIW8711-57-77 01:58:49 Test Item Value Reference Range Interpretation Comments HCO3 Stoney (test code = HCO3 Stoney) - N [facility] TexasBfuvggfWKSFMFDWP8396-73-11 01:58:49 Test Item Value Reference Range Interpretation Comments BE Stoney (test code = 1 See_Comment N [Automa katerin message] The BE Stoney) system which ge nerated this result transmit katerin reference range : <=2. The reference range was not used to interpr et this result as carlita l/abnormal. [facility] TexasTuhwrqdEBAQPVAIM1180-77-48 01:58:49 Test Item Value Reference Range Interpretation Comments pO2 Stoney (test code = pO2 Stoney) 22 20-49 N [facility] TexasTbveriyPAMHXYZII3869-48-01 01:58:49 Test Item Value Reference Range Interpretation Comments pCO2 Stoney (test code = pCO2 Stoney) 34 38-52 L [facility] TexasKyccyiyIWKTPVMCX9101-98-46 01:58:49 Test Item Value Reference Range Interpretation Comments pH Stoney (test code = pH Stoney) 7.46 7.28-7.42 H [facility] TexasIlcmtulBMBJRCFJM7240-78-54 01:58:49 Test Item Value Reference Range Interpretation Comments O2 Sat Stoney (test code = O2 Sat Stoney) 41.9 40.0-70.0 N [facility] TexasWxkziikHLPSVOLWX6277-73-52 01:58:49 Test Item Value Reference Range Interpretation Comments Temp Stoney (test code = Temp Stoney) 37.0 [facility] TexasDlapyzhLBGJEDHSI3039-80-16 01:58:49 Test Item Value Reference Range Interpretation Comments HCO3 Stoney (test code = HCO3 Stoney) 24 22- N [facility] TexasQhhivmaIZUKNPYRI9265-99-90 01:58:49 Test Item Value Reference Range Interpretation Comments BE Stoney (test code = 1 See_Comment N [Automa katerin message] The BE Stoney) system which ge nerated this result transmit katerin reference range : <=2. The reference range was not used to interpr et this result as carlita l/abnormal. [facility] TexasOierolsPBWWHBZJE0621-48-26 01:58:49 Test Item Value Reference Range Interpretation Comments pO2 Stoney (test code = pO2 Stoney) 22 20-49 N [facility] TexasHninsdmUTVWCMPWY5120-49-59 01:58:49 Test Item Value Reference Range Interpretation Comments pCO2 Stoney (test code = pCO2 Stoney) 34 38-52 L [facility] [place]FdctznsUHSKYJQOT6339-49-45 01:58:49 Test Item Value Reference Range Interpretation Comments pH Stoney (test code = pH Stoney) 7.46 7.28-7.42 H [facility] TexasOzxvujiUCSVLWHKS9018-73-38 01:58:00 Test Item Value Reference Range Interpretation Comments AGAP (test code = AGAP) 14.7 10.0-20.0 N [facility] TexasHufrjojOURRZELVQ6773-78-06 01:58:00 Test Item Value Reference Range Interpretation Comments eGFR (test code = eGFR) 45 [facility] TexasUwgycyuHIOPDFCCZ9170-90-00 01:58:00 Test Item Value Reference Range Interpretation Comments Glucose Lvl (test code = Glucose Lvl) 90 70-99 N [facility] TexasDyqhkhvPHMDIMDGP7510-79-23 01:58:00 Test Item Value Reference Range Interpretation Comments Chloride Lvl (test code = Chloride Lvl) 105 95-109 N [facility] TexasCusfapqHZABAGLKN3935-21-68 01:58:00 Test Item Value Reference Range Interpretation Comments Potassium Lvl (test code = Potassium 3.7 3.5-5.1 N Lvl) [facility] TexasNcebvytGDHYVWNRA4651-15-79 01:58:00 Test Item Value Reference Range Interpretation Comments Sodium Lvl (test code = Sodium Lvl) 142 135-145 N [facility] TexasBzkclidUZLNJVPSC7063-33-47 01:58:00 Test Item Value Reference Range Interpretation Comments Creatinine Lvl (test code = Creatinine 1.2 0.5-1.4 N Lvl) [facility] TexasPppqsnhAYLCJTSHY2588-45-39 01:58:00 Test Item Value Reference Range Interpretation Comments BUN (test code = BUN) 12 7-22 N [facility] TexasVfbsgqtFIQPSYOIO8007-46-97 01:58:00 Test Item Value Reference Range Interpretation Comments Calcium Lvl (test code = Calcium Lvl) 9.2 8.5-10.5 N [facility] TexasBwmvucgXVUKCVHDW2686-31-63 01:58:00 Test Item Value Reference Range Interpretation Comments CO2 (test code = CO2) 26 24-32 N [facility] TexasGjdzqugKWIGPMYRH7177-01-60 01:58:00 Test Item Value Reference Range Interpretation Comments Etoh (%) (test code = Etoh (%)) <0.003 % N [facility] TexasSdaiswzSUGOZUXSW5059-06-70 01:58:00 Test Item Value Reference Range Interpretation Comments Ethanol Lvl (test code = Ethanol <3.0 mg/dL N Lvl) [facility] TexasRmsdxeiRKXVXERVD6980-95-66 01:58:00 Test Item Value Reference Range Interpretation Comments Lactic Acid Lvl (test code = Lactic 2.9 0.5-2.2 H Acid Lvl) [facility]IocppmhPJFEZBJEOG5389-07-37 01:58:00 Test Item Value Reference Range Interpretation Comments MPV (test code = MPV) 7.5 7.4-10.4 N [facility]OvpekhoJUOCIWSOZA8479-54-14 01:58:00 Test Item Value Reference Range Interpretation Comments WBC X 10x3 (test code = WBC X 10x3) 11.5 3.7-10.4 H [facility]MlnshjlOVMQPXADEW9298-96-53 01:58:00 Test Item Value Reference Range Interpretation Comments Hgb (test code = Hgb) 14.2 14.0-18.0 N [facility]viewKitjkouEBJNUDZDQU8537-55-83 01:58:00 Test Item Value Reference Range Interpretation Comments RBC X 10x6 (test code = RBC X 10x6) 4.77 4.70-6.10 N [facility]viewDcuqkrhNEDCVPGJCS5668-73-68 01:58:00 Test Item Value Reference Range Interpretation Comments Hct (test code = Hct) 42.1 42.0-54.0 N [facility]viewWroxvlaIEEAQAYUOA1604-10-59 01:58:00 Test Item Value Reference Range Interpretation Comments MCV (test code = MCV) 88.2 80.0-94.0 N [facility]viewQyhfnqsFHSGEWHYXW5774-50-19 01:58:00 Test Item Value Reference Range Interpretation Comments MCH (test code = MCH) 29.7 pg 27.0-31.0 N [facility]viewMzritwjGMKXHHSACP2585-78-91 01:58:00 Test Item Value Reference Range Interpretation Comments RDW (test code = RDW) 12.7 11.5-14.5 N [facility]viewPnwpgccIDYJKKQIAI6640-97-76 01:58:00 Test Item Value Reference Range Interpretation Comments MCHC (test code = MCHC) 33.7 32.0-36.0 N [facility]QzlkgwbCCVNYHWENJ0953-96-16 01:58:00 Test Item Value Reference Range Interpretation Comments Platelet (test code = Platelet) 282 133-450 N [facility]viewRjotorhFEHVSIQZST5979-29-52 01:58:00 Test Item Value Reference Range Interpretation Comments R-time (test code = R-time) 0.7 min 0.4-0.7 N [facility]viewBuzfcivKCQGXZHRQQ5882-06-13 01:58:00 Test Item Value Reference Range Interpretation Comments K-time (test code = K-time) 1.2 min 0.6-2.3 N [facility]viewBmakwggASYMHOVKCG2608-45-04 01:58:00 Test Item Value Reference Range Interpretation Comments Angle (test code = Angle) 75 degrees 64-80 N [facility]viewTiebysnCVMTRUGEJU2297-21-29 01:58:00 Test Item Value Reference Range Interpretation Comments Rapid TEG Sample Type Citrated Whole Blood (test code = Rapid TEG Sample Type) [facility]viewSfdslisRJDVDULJEB3596-78-64 01:58:00 Test Item Value Reference Range Interpretation Comments ACT (TEG) (test code = ACT (TEG)) 113 s 86-118 N [facility]viewMhqdzewFVXULZHRBU2164-36-20 01:58:00 Test Item Value Reference Range Interpretation Comments Split Point (test code = Split Point) 0.6 min [facility]viewIqhltrsVMKTLTWHBF3916-69-10 01:58:00 Test Item Value Reference Range Interpretation Comments Estimated % Lysis (test 1.2 See_Comment N [Au tomated message] The code = Estimated % system wh ich generated Lysis) this result tra nsmitted reference range : <=7.5. The reference r kvng was not used to int erpret this result as normal/abnormal . [facility]viewQrapiqeDCZVPAKOJX0633-05-42 01:58:00 Test Item Value Reference Range Interpretation Comments Max Amp (test code = Max Amp) 67 mm 52-71 N [facility]viewYcpfyvmUKMJWGYAMM9639-31-21 01:58:00 Test Item Value Reference Range Interpretation Comments G-value (test code = G-value) 9.9 5.0-11.6 N [facility]viewKvudbjmWOKONQEPXZ8617-97-23 01:58:00 Test Item Value Reference Range Interpretation Comments Monocytes # (test code 1.0 See_Comment H [Aut omated message] The = Monocytes #) system which generated this result tra nsmitted reference range : <=0.8. The reference r kvng was not used to int erpret this result as normal/abnormal . [facility]viewPnokdbrQEKZCJQHZO6716-38-56 01:58:00 Test Item Value Reference Range Interpretation Comments Eosinophils (test code = 0.6 See_Comment N [A utomated message] The Eosinophils) system which ge nerated this result tra nsmitted reference range : <=4.0. The reference r kvng was not used to int erpret this result as normal/abnormal . [facility]viewCuxlohwUBVPGXCYRE2396-58-32 01:58:00 Test Item Value Reference Range Interpretation Comments Lymphocytes # (test code = Lymphocytes 2.0 1.0-5.5 N #) [facility]viewMhbavxsLGFTLPFBGN7500-72-48 01:58:00 Test Item Value Reference Range Interpretation Comments Segs-Bands # (test code = Segs-Bands #) 8.4 1.5-8.1 H [facility]viewOmydxeoXFVXFHNBWW7984-66-30 01:58:00 Test Item Value Reference Range Interpretation Comments Basophils (test code = 0.4 See_Comment N [Aut omated message] The Basophils) system which ge nerated this result tra nsmitted reference range : <=1.0. The reference r knvg was not used to int erpret this result as normal/abnormal . [facility]viewFpkowjkIKVFEYNKUI0681-81-90 01:58:00 Test Item Value Reference Range Interpretation Comments Plt Morph (test code = Normal (08/17/2013 N Plt Morph) 19:58:00) [facility]viewPtndxjyMHAZJOKOTB3587-75-96 01:58:00 Test Item Value Reference Range Interpretation Comments Monocytes (test code = Monocytes) 8.4 2.0-12.0 N [facility]viewWhwsmocMCSRHLFQPJ5409-86-63 01:58:00 Test Item Value Reference Range Interpretation Comments Lymphocytes (test code = Lymphocytes) 17.7 20.0-40.0 L [facility]RrwhwfpQJDHQRTXIC0399-31-35 01:58:00 Test Item Value Reference Range Interpretation Comments Segs (test code = Segs) 72.9 45.0-75.0 N [facility]viewIjheskbGCMRBQFZCH2876-55-15 01:58:00 Test Item Value Reference Range Interpretation Comments RBC Morph (test code = Normal (08/17/2013 N RBC Morph) 19:58:00) [facility]viewSzbfmtmZGVASYELMC2788-99-34 01:58:00 Test Item Value Reference Range Interpretation Comments Eosinophils # (test code 0.1 See_Comment N [A utomated message] The = Eosinophils #) system whic h generated this result tra nsmitted reference range : <=0.5. The reference r kvng was not used to int erpret this result as normal/abnormal . [facility]viewAhecrsyXSNPYIDWPP7146-81-35 01:58:00 Test Item Value Reference Range Interpretation Comments Basophils # (test code 0.0 See_Comment N [Aut omated message] The = Basophils #) system which generated this result tra nsmitted reference range : <=0.2. The reference r kvng was not used to int erpret this result as normal/abnormal . [facility]RvntspzGYLZQWNJT9580-00-71 01:58:00 Test Item Value Reference Range Interpretation Comments AGAP (test code = AGAP) 14.7 10.0-20.0 N [facility] TexasPcscrufERWWERDGX5932-49-09 01:58:00 Test Item Value Reference Range Interpretation Comments eGFR (test code = eGFR) 45 [facility] TexasNwsfnolSAYLLXWZI0115-93-73 01:58:00 Test Item Value Reference Range Interpretation Comments Glucose Lvl (test code = Glucose Lvl) 90 70-99 N [facility] TexasYkzbgxbEVNOIQWIL6615-15-88 01:58:00 Test Item Value Reference Range Interpretation Comments Chloride Lvl (test code = Chloride Lvl) 105 95-109 N [facility] TexasYpgbftfVZXEETCYR2057-34-45 01:58:00 Test Item Value Reference Range Interpretation Comments Potassium Lvl (test code = Potassium 3.7 3.5-5.1 N Lvl) [facility] TexasPrwlfygSIKLCLDXE9321-88-60 01:58:00 Test Item Value Reference Range Interpretation Comments Sodium Lvl (test code = Sodium Lvl) 142 135-145 N [facility] TexasBonlnmzTHWHWLCQW3130-01-53 01:58:00 Test Item Value Reference Range Interpretation Comments Creatinine Lvl (test code = Creatinine 1.2 0.5-1.4 N Lvl) [facility] TexasPcfoifzCNTXSBBNN0046-90-75 01:58:00 Test Item Value Reference Range Interpretation Comments BUN (test code = BUN) 12 7-22 N [facility] TexasIxgoefxAPUAJSNHM4152-37-39 01:58:00 Test Item Value Reference Range Interpretation Comments Calcium Lvl (test code = Calcium Lvl) 9.2 8.5-10.5 N [facility] TexasZcqvfxdKTRUPVVTO0259-78-86 01:58:00 Test Item Value Reference Range Interpretation Comments CO2 (test code = CO2) 26 24-32 N [facility] TexasAropxzxGOOQLSDTA0854-83-42 01:58:00 Test Item Value Reference Range Interpretation Comments Etoh (%) (test code = Etoh (%)) <0.003 % N [facility] TexasFrfnqskHFAPUSSEE8644-60-44 01:58:00 Test Item Value Reference Range Interpretation Comments Ethanol Lvl (test code = Ethanol <3.0 mg/dL N Lvl) [facility] TexasZzohhrkSPSLDLUVR3363-62-96 01:58:00 Test Item Value Reference Range Interpretation Comments Lactic Acid Lvl (test code = Lactic 2.9 0.5-2.2 H Acid Lvl) [facility]viewForkfpwHAHQCKTVMQ5761-34-81 01:58:00 Test Item Value Reference Range Interpretation Comments MPV (test code = MPV) 7.5 7.4-10.4 N [facility]viewDuwchcvOZXIZFHYIB7534-41-65 01:58:00 Test Item Value Reference Range Interpretation Comments WBC X 10x3 (test code = WBC X 10x3) 11.5 3.7-10.4 H [facility]viewWlajkobRFAIFAPOEQ7477-32-11 01:58:00 Test Item Value Reference Range Interpretation Comments Hgb (test code = Hgb) 14.2 14.0-18.0 N [facility]viewMafxcncAOVPZTTCUH0444-90-52 01:58:00 Test Item Value Reference Range Interpretation Comments RBC X 10x6 (test code = RBC X 10x6) 4.77 4.70-6.10 N [facility]viewLgqxnvxGVBWXBGAPZ4668-54-66 01:58:00 Test Item Value Reference Range Interpretation Comments Hct (test code = Hct) 42.1 42.0-54.0 N [facility]viewNoottthQFZOSYGRON0766-45-20 01:58:00 Test Item Value Reference Range Interpretation Comments MCV (test code = MCV) 88.2 80.0-94.0 N [facility]viewTkloschVMVSDCWEFV3739-30-64 01:58:00 Test Item Value Reference Range Interpretation Comments MCH (test code = MCH) 29.7 pg 27.0-31.0 N [facility]viewRseacmeLITRLOULKN9595-96-07 01:58:00 Test Item Value Reference Range Interpretation Comments RDW (test code = RDW) 12.7 11.5-14.5 N [facility]viewPsvojgyYXYDFFQYIE2534-25-37 01:58:00 Test Item Value Reference Range Interpretation Comments MCHC (test code = MCHC) 33.7 32.0-36.0 N [facility]viewVgfuwrnLUHTRKMAIF6112-68-24 01:58:00 Test Item Value Reference Range Interpretation Comments Platelet (test code = Platelet) 282 133-450 N [facility]viewSbazqbrIADGARRNCF6503-54-44 01:58:00 Test Item Value Reference Range Interpretation Comments R-time (test code = R-time) 0.7 min 0.4-0.7 N [facility]viewBasklzfJOVZYASFYK8279-88-96 01:58:00 Test Item Value Reference Range Interpretation Comments K-time (test code = K-time) 1.2 min 0.6-2.3 N [facility]viewRqkmwhtTZJRYTXJGG4841-09-26 01:58:00 Test Item Value Reference Range Interpretation Comments Angle (test code = Angle) 75 degrees 64-80 N [facility]viewWhsspzfPIQULZKNTP7818-90-96 01:58:00 Test Item Value Reference Range Interpretation Comments Rapid TEG Sample Type Citrated Whole Blood (test code = Rapid TEG Sample Type) [facility]viewOdjcewfGPIHJZCHSZ8934-99-46 01:58:00 Test Item Value Reference Range Interpretation Comments ACT (TEG) (test code = ACT (TEG)) 113 s 86-118 N [facility]viewZqnzocgIBKOVKFRYP9998-26-12 01:58:00 Test Item Value Reference Range Interpretation Comments Split Point (test code = Split Point) 0.6 min [facility]viewQzspqlsZFLVCZXOTD0435-69-03 01:58:00 Test Item Value Reference Range Interpretation Comments Estimated % Lysis (test 1.2 See_Comment N [Au tomated message] The code = Estimated % system wh ich generated Lysis) this result tra nsmitted reference range : <=7.5. The reference r kvng was not used to int erpret this result as normal/abnormal . [facility]viewTzhjuzdQEYMJRGGKS0908-76-98 01:58:00 Test Item Value Reference Range Interpretation Comments Max Amp (test code = Max Amp) 67 mm 52-71 N [facility]viewKgilkuqRRDFMGBFPD5548-54-18 01:58:00 Test Item Value Reference Range Interpretation Comments G-value (test code = G-value) 9.9 5.0-11.6 N [facility]viewQbzklvzIILRLBGZSQ6199-26-20 01:58:00 Test Item Value Reference Range Interpretation Comments Monocytes # (test code 1.0 See_Comment H [Aut omated message] The = Monocytes #) system which generated this result tra nsmitted reference range : <=0.8. The reference r kvng was not used to int erpret this result as normal/abnormal . [facility]viewLoeqareLTHCGJIWPH5012-89-06 01:58:00 Test Item Value Reference Range Interpretation Comments Eosinophils (test code = 0.6 See_Comment N [A utomated message] The Eosinophils) system which ge nerated this result tra nsmitted reference range : <=4.0. The reference r kvng was not used to int erpret this result as normal/abnormal . [facility]viewIunphadQBHETRBHAE6395-48-53 01:58:00 Test Item Value Reference Range Interpretation Comments Lymphocytes # (test code = Lymphocytes 2.0 1.0-5.5 N #) [facility]viewLztsqrhCAXBWTDCBY1522-68-89 01:58:00 Test Item Value Reference Range Interpretation Comments Segs-Bands # (test code = Segs-Bands #) 8.4 1.5-8.1 H [facility]viewYfukociLCORVXEJMO4050-42-89 01:58:00 Test Item Value Reference Range Interpretation Comments Basophils (test code = 0.4 See_Comment N [Aut omated message] The Basophils) system which ge nerated this result tra nsmitted reference range : <=1.0. The reference r kvng was not used to int erpret this result as normal/abnormal . [facility]viewCgxibluXHUFWYHPRK0957-16-97 01:58:00 Test Item Value Reference Range Interpretation Comments Plt Morph (test code = Normal (08/17/2013 N Plt Morph) 19:58:00) [facility]viewAluatqoHOAZMHYNRZ9692-84-42 01:58:00 Test Item Value Reference Range Interpretation Comments Monocytes (test code = Monocytes) 8.4 2.0-12.0 N [facility]viewFwqvdjbQECHXSOEBF2195-91-80 01:58:00 Test Item Value Reference Range Interpretation Comments Lymphocytes (test code = Lymphocytes) 17.7 20.0-40.0 L [facility]viewDhebyjpVIFEFPMKPP6912-92-91 01:58:00 Test Item Value Reference Range Interpretation Comments Segs (test code = Segs) 72.9 45.0-75.0 N [facility]viewBwaxzzqVOSSFOELAC6640-49-55 01:58:00 Test Item Value Reference Range Interpretation Comments RBC Morph (test code = Normal (08/17/2013 N RBC Morph) 19:58:00) [facility]viewRwdbrmfYAURQMYZCJ8555-17-87 01:58:00 Test Item Value Reference Range Interpretation Comments Eosinophils # (test code 0.1 See_Comment N [A utomated message] The = Eosinophils #) system whic h generated this result tra nsmitted reference range : <=0.5. The reference r kvng was not used to int erpret this result as normal/abnormal . [facility]viewKfeduaqOGUWRYXAHX0501-10-71 01:58:00 Test Item Value Reference Range Interpretation Comments Basophils # (test code 0.0 See_Comment N [Aut omated message] The = Basophils #) system which generated this result tra nsmitted reference range : <=0.2. The reference r kvng was not used to int erpret this result as normal/abnormal . [facility] TexasYufpbtlHAHWUEKOX7488-88-98 01:58:00 Test Item Value Reference Range Interpretation Comments AGAP (test code = AGAP) 14.7 10.0-20.0 N [facility] TexasWhgzvlrAIYYCUDFI9551-56-78 01:58:00 Test Item Value Reference Range Interpretation Comments eGFR (test code = eGFR) 45 [facility] TexasCqpjiazBDXBEQAPX3722-32-94 01:58:00 Test Item Value Reference Range Interpretation Comments Glucose Lvl (test code = Glucose Lvl) 90 70-99 N [facility] TexasBnlfxicCXATBHJVK3677-08-85 01:58:00 Test Item Value Reference Range Interpretation Comments Chloride Lvl (test code = Chloride Lvl) 105 95-109 N [facility] TexasZqpfvioIQFTODMYB3643-62-04 01:58:00 Test Item Value Reference Range Interpretation Comments Potassium Lvl (test code = Potassium 3.7 3.5-5.1 N Lvl) [facility] TexasCxifrviISQSQSIAH8065-83-83 01:58:00 Test Item Value Reference Range Interpretation Comments Sodium Lvl (test code = Sodium Lvl) 142 135-145 N [facility] TexasVkbzaehYDMTRNFSH2012-41-03 01:58:00 Test Item Value Reference Range Interpretation Comments Creatinine Lvl (test code = Creatinine 1.2 0.5-1.4 N Lvl) [facility] TexasWgzupnqAWAJHJFXR2324-16-39 01:58:00 Test Item Value Reference Range Interpretation Comments BUN (test code = BUN) 12 7-22 N [facility] TexasYmxkpuxJBWCKHAUB8822-36-60 01:58:00 Test Item Value Reference Range Interpretation Comments Calcium Lvl (test code = Calcium Lvl) 9.2 8.5-10.5 N [facility] TexasVzsmwgaOBZUESSLA3790-29-45 01:58:00 Test Item Value Reference Range Interpretation Comments CO2 (test code = CO2) 26 24-32 N [facility] TexasDwzxuehGPFFITSIF6755-20-07 01:58:00 Test Item Value Reference Range Interpretation Comments Etoh (%) (test code = Etoh (%)) <0.003 % N [facility] TexasAjnkscaPUBNPQSBW2605-76-53 01:58:00 Test Item Value Reference Range Interpretation Comments Ethanol Lvl (test code = Ethanol <3.0 mg/dL N Lvl) [facility] TexasKodkdalQXHZXSHYY9184-75-73 01:58:00 Test Item Value Reference Range Interpretation Comments Lactic Acid Lvl (test code = Lactic 2.9 0.5-2.2 H Acid Lvl) [facility]viewYosamojJNARSCMXQF2099-30-24 01:58:00 Test Item Value Reference Range Interpretation Comments MPV (test code = MPV) 7.5 7.4-10.4 N [facility]viewWcfyqpeRZWUGLUGDZ0243-56-96 01:58:00 Test Item Value Reference Range Interpretation Comments WBC X 10x3 (test code = WBC X 10x3) 11.5 3.7-10.4 H [facility]viewJhdgimkVYLSUPUMHC8000-80-42 01:58:00 Test Item Value Reference Range Interpretation Comments Hgb (test code = Hgb) 14.2 14.0-18.0 N [facility]viewHrbxkhfNYVABGOVGB4749-74-92 01:58:00 Test Item Value Reference Range Interpretation Comments RBC X 10x6 (test code = RBC X 10x6) 4.77 4.70-6.10 N [facility]viewJojnoqnYKHIXTSMXW1899-76-36 01:58:00 Test Item Value Reference Range Interpretation Comments Hct (test code = Hct) 42.1 42.0-54.0 N [facility]viewBtdlmjnQQSFHZSWMX5935-80-21 01:58:00 Test Item Value Reference Range Interpretation Comments MCV (test code = MCV) 88.2 80.0-94.0 N [facility]viewAqjnldgZRYGUDZIFB6648-52-97 01:58:00 Test Item Value Reference Range Interpretation Comments MCH (test code = MCH) 29.7 pg 27.0-31.0 N [facility]viewImqvidsYRDOXHKXXI8272-20-65 01:58:00 Test Item Value Reference Range Interpretation Comments RDW (test code = RDW) 12.7 11.5-14.5 N [facility]viewYbmgzpjJZUTZLUFLT1887-37-83 01:58:00 Test Item Value Reference Range Interpretation Comments MCHC (test code = MCHC) 33.7 32.0-36.0 N [facility]viewNtlplelZHTAHPWKMW1357-81-18 01:58:00 Test Item Value Reference Range Interpretation Comments Platelet (test code = Platelet) 282 133-450 N [facility]viewRqnesgzXSWXMLZFXE0205-73-38 01:58:00 Test Item Value Reference Range Interpretation Comments R-time (test code = R-time) 0.7 min 0.4-0.7 N [facility]viewDhekcmbNNYIMKQETA9406-80-81 01:58:00 Test Item Value Reference Range Interpretation Comments K-time (test code = K-time) 1.2 min 0.6-2.3 N [facility]viewHcmmmbwJPRZKUMIUJ2131-93-20 01:58:00 Test Item Value Reference Range Interpretation Comments Angle (test code = Angle) 75 degrees 64-80 N [facility]viewSfceahkCTINOWKPJF9981-18-87 01:58:00 Test Item Value Reference Range Interpretation Comments Rapid TEG Sample Type Citrated Whole Blood (test code = Rapid TEG Sample Type) [facility]viewXrsantsOCUVJKPRXL7147-04-37 01:58:00 Test Item Value Reference Range Interpretation Comments ACT (TEG) (test code = ACT (TEG)) 113 s 86-118 N [facility]viewMmnuymfMYOVHHPAFB0870-82-16 01:58:00 Test Item Value Reference Range Interpretation Comments Split Point (test code = Split Point) 0.6 min [facility]viewYcyxggjDYWVANAVJD4905-26-47 01:58:00 Test Item Value Reference Range Interpretation Comments Estimated % Lysis (test 1.2 See_Comment N [Au tomated message] The code = Estimated % system wh ich generated Lysis) this result tra nsmitted reference range : <=7.5. The reference r kvng was not used to int erpret this result as normal/abnormal . [facility]viewKsycedrEAKQXFDAHW0277-08-00 01:58:00 Test Item Value Reference Range Interpretation Comments Max Amp (test code = Max Amp) 67 mm 52-71 N [facility]viewQrutpobPUNRUCMTWC5361-16-16 01:58:00 Test Item Value Reference Range Interpretation Comments G-value (test code = G-value) 9.9 5.0-11.6 N [facility]viewKgsaqleCDVMNPHZIX8320-34-88 01:58:00 Test Item Value Reference Range Interpretation Comments Monocytes # (test code 1.0 See_Comment H [Aut omated message] The = Monocytes #) system which generated this result tra nsmitted reference range : <=0.8. The reference r kvng was not used to int erpret this result as normal/abnormal . [facility]viewHxaldkfOSDHZOQIHW6956-11-15 01:58:00 Test Item Value Reference Range Interpretation Comments Eosinophils (test code = 0.6 See_Comment N [A utomated message] The Eosinophils) system which ge nerated this result tra nsmitted reference range : <=4.0. The reference r kvng was not used to int erpret this result as normal/abnormal . [facility]viewXfkfdkcEVBPMMKHQP9389-39-39 01:58:00 Test Item Value Reference Range Interpretation Comments Lymphocytes # (test code = Lymphocytes 2.0 1.0-5.5 N #) [facility]viewOwsdcddSBKWSIRGLC0306-48-67 01:58:00 Test Item Value Reference Range Interpretation Comments Segs-Bands # (test code = Segs-Bands #) 8.4 1.5-8.1 H [facility]viewQgadljlIFLJNCPNXW5103-89-14 01:58:00 Test Item Value Reference Range Interpretation Comments Basophils (test code = 0.4 See_Comment N [Aut omated message] The Basophils) system which ge nerated this result tra nsmitted reference range : <=1.0. The reference r kvng was not used to int erpret this result as normal/abnormal . [facility]viewDztzgvqPRXBTAHGVO5674-95-47 01:58:00 Test Item Value Reference Range Interpretation Comments Plt Morph (test code = Normal (08/17/2013 N Plt Morph) 19:58:00) [facility]viewHhtfrleUMCLOKAUBV0864-22-34 01:58:00 Test Item Value Reference Range Interpretation Comments Monocytes (test code = Monocytes) 8.4 2.0-12.0 N [facility]viewKyzqsacNEJQADGXKN7541-64-06 01:58:00 Test Item Value Reference Range Interpretation Comments Lymphocytes (test code = Lymphocytes) 17.7 20.0-40.0 L [facility]viewOunebxcYMHUBLNZIH1320-32-10 01:58:00 Test Item Value Reference Range Interpretation Comments Segs (test code = Segs) 72.9 45.0-75.0 N [facility]viewAmqhpjkKQWNKXIIOS0138-73-03 01:58:00 Test Item Value Reference Range Interpretation Comments RBC Morph (test code = Normal (08/17/2013 N RBC Morph) 19:58:00) [facility]viewWijqukcOHWKRSXIGJ6744-30-91 01:58:00 Test Item Value Reference Range Interpretation Comments Eosinophils # (test code 0.1 See_Comment N [A utomated message] The = Eosinophils #) system whic h generated this result tra nsmitted reference range : <=0.5. The reference r kvng was not used to int erpret this result as normal/abnormal . [facility]viewUyqaoztOMABTVYIFU3406-75-50 01:58:00 Test Item Value Reference Range Interpretation Comments Basophils # (test code 0.0 See_Comment N [Aut omated message] The = Basophils #) system which generated this result tra nsmitted reference range : <=0.2. The reference r kvng was not used to int erpret this result as normal/abnormal . [facility] TexasOfhmpmzWCFYSHFIJ8551-37-96 01:58:00 Test Item Value Reference Range Interpretation Comments AGAP (test code = AGAP) 14.7 10.0-20.0 N [facility] TexasMitzlznYEVLONADC3043-81-43 01:58:00 Test Item Value Reference Range Interpretation Comments eGFR (test code = eGFR) 45 [facility] TexasRoktmpmJVBKVFZAL2186-79-89 01:58:00 Test Item Value Reference Range Interpretation Comments Glucose Lvl (test code = Glucose Lvl) 90 70-99 N [facility] TexasGioigfwTVPKXFRLG8109-48-47 01:58:00 Test Item Value Reference Range Interpretation Comments Chloride Lvl (test code = Chloride Lvl) 105 95-109 N [facility] TexasFeajsnpPFRIMPESJ0799-41-45 01:58:00 Test Item Value Reference Range Interpretation Comments Potassium Lvl (test code = Potassium 3.7 3.5-5.1 N Lvl) [facility] TexasEyfyghdQRWBTTBWT0798-81-60 01:58:00 Test Item Value Reference Range Interpretation Comments Sodium Lvl (test code = Sodium Lvl) 142 135-145 N [facility] TexasLjdxjrnDYYCMPDYE3358-66-71 01:58:00 Test Item Value Reference Range Interpretation Comments Creatinine Lvl (test code = Creatinine 1.2 0.5-1.4 N Lvl) [facility] TexasXugdbrzUGHOSKKVN4536-04-25 01:58:00 Test Item Value Reference Range Interpretation Comments BUN (test code = BUN) 12 7-22 N [facility] TexasKtfovdaAKHITFPAD6043-03-31 01:58:00 Test Item Value Reference Range Interpretation Comments Calcium Lvl (test code = Calcium Lvl) 9.2 8.5-10.5 N [facility] TexasCfpdganUOSGLZDGW0264-12-37 01:58:00 Test Item Value Reference Range Interpretation Comments CO2 (test code = CO2) 26 24-32 N [facility] TexasFtrulfoDFNWZLAYT0641-68-64 01:58:00 Test Item Value Reference Range Interpretation Comments Etoh (%) (test code = Etoh (%)) <0.003 % N [facility] TexasItftyzkBBDHNKQJJ1921-02-52 01:58:00 Test Item Value Reference Range Interpretation Comments Ethanol Lvl (test code = Ethanol <3.0 mg/dL N Lvl) [facility] TexasPbmgvkmOCXGKXYXQ7950-79-41 01:58:00 Test Item Value Reference Range Interpretation Comments Lactic Acid Lvl (test code = Lactic 2.9 0.5-2.2 H Acid Lvl) [facility]viewJimelbvRTYNCPQRJF6028-21-72 01:58:00 Test Item Value Reference Range Interpretation Comments MPV (test code = MPV) 7.5 7.4-10.4 N [facility]viewXgmekkyAAZFYMRZXJ3508-82-17 01:58:00 Test Item Value Reference Range Interpretation Comments WBC X 10x3 (test code = WBC X 10x3) 11.5 3.7-10.4 H [facility]viewPkdzvdsEZFELMXPVU9424-45-91 01:58:00 Test Item Value Reference Range Interpretation Comments Hgb (test code = Hgb) 14.2 14.0-18.0 N [facility]viewXipgowyKVBVQTQROV5616-28-32 01:58:00 Test Item Value Reference Range Interpretation Comments RBC X 10x6 (test code = RBC X 10x6) 4.77 4.70-6.10 N [facility]viewMbkbsanGFVJAKRZBN3043-13-86 01:58:00 Test Item Value Reference Range Interpretation Comments Hct (test code = Hct) 42.1 42.0-54.0 N [facility]viewNpgncenMSQDXUNGKX7194-05-95 01:58:00 Test Item Value Reference Range Interpretation Comments MCV (test code = MCV) 88.2 80.0-94.0 N [facility]viewAeghnjcRFZYKVWRCT8979-02-68 01:58:00 Test Item Value Reference Range Interpretation Comments MCH (test code = MCH) 29.7 pg 27.0-31.0 N [facility]viewSndshinXSZTWKUPHF8504-44-20 01:58:00 Test Item Value Reference Range Interpretation Comments RDW (test code = RDW) 12.7 11.5-14.5 N [facility]viewFtblbvtFMUZPCLKMA2565-49-09 01:58:00 Test Item Value Reference Range Interpretation Comments MCHC (test code = MCHC) 33.7 32.0-36.0 N [facility]viewSbxbyzeOKYDCECLNT9167-84-03 01:58:00 Test Item Value Reference Range Interpretation Comments Platelet (test code = Platelet) 282 133-450 N [facility] [place]HjwwxvbRKTSQUAQLI8632-80-80 01:58:00 Test Item Value Reference Range Interpretation Comments R-time (test code = R-time) 0.7 min 0.4-0.7 N [facility]viewLdatclnQACSWBRPEJ4194-52-10 01:58:00 Test Item Value Reference Range Interpretation Comments K-time (test code = K-time) 1.2 min 0.6-2.3 N [facility]viewUskbdwfOLJZZFJFHK4080-50-40 01:58:00 Test Item Value Reference Range Interpretation Comments Angle (test code = Angle) 75 degrees 64-80 N [facility]viewQyrchgwGVJMBABFDX4358-85-19 01:58:00 Test Item Value Reference Range Interpretation Comments Rapid TEG Sample Type Citrated Whole Blood (test code = Rapid TEG Sample Type) [facility] [place]viewXmcjdfsYTOLRZFCIY7192-90-84 01:58:00 Test Item Value Reference Range Interpretation Comments ACT (TEG) (test code = ACT (TEG)) 113 s 86-118 N [facility] [place]viewBzcxmhdTXKTCYYDPK0130-76-97 01:58:00 Test Item Value Reference Range Interpretation Comments Split Point (test code = Split Point) 0.6 min [facility] [place]viewQvpsrdxBOZFLGPLPG4757-21-03 01:58:00 Test Item Value Reference Range Interpretation Comments Estimated % Lysis (test 1.2 See_Comment N [Au tomated message] The code = Estimated % system wh ich generated Lysis) this result tra nsmitted reference range : <=7.5. The reference r kvng was not used to int erpret this result as normal/abnormal . [facility] [place]viewThumaerSXMGFEKASP5774-95-02 01:58:00 Test Item Value Reference Range Interpretation Comments Max Amp (test code = Max Amp) 67 mm 52-71 N [facility] [place]viewJhfluaxELTJNYANOF9344-80-97 01:58:00 Test Item Value Reference Range Interpretation Comments G-value (test code = G-value) 9.9 5.0-11.6 N [facility] [place]viewYcuybyzLRWOCPCPHI6539-55-54 01:58:00 Test Item Value Reference Range Interpretation Comments Monocytes # (test code 1.0 See_Comment H [Aut omated message] The = Monocytes #) system which generated this result tra nsmitted reference range : <=0.8. The reference r kvng was not used to int erpret this result as normal/abnormal . [facility] [place]viewNszrzuxCTDSAOCTZB6204-80-59 01:58:00 Test Item Value Reference Range Interpretation Comments Eosinophils (test code = 0.6 See_Comment N [A utomated message] The Eosinophils) system which ge nerated this result tra nsmitted reference range : <=4.0. The reference r kvng was not used to int erpret this result as normal/abnormal . [facility]viewVvzkbrfYCZRKRUKHK5862-36-11 01:58:00 Test Item Value Reference Range Interpretation Comments Lymphocytes # (test code = Lymphocytes 2.0 1.0-5.5 N #) [facility]viewVbswcsnENDJHWYIBE9988-37-73 01:58:00 Test Item Value Reference Range Interpretation Comments Segs-Bands # (test code = Segs-Bands #) 8.4 1.5-8.1 H [facility] [place]viewPrlcgutSNZJGQSTHN5984-18-38 01:58:00 Test Item Value Reference Range Interpretation Comments Basophils (test code = 0.4 See_Comment N [Aut omated message] The Basophils) system which ge nerated this result tra nsmitted reference range : <=1.0. The reference r kvng was not used to int erpret this result as normal/abnormal . [facility] [place]viewBznegsoCOWOTHJDAM2597-88-53 01:58:00 Test Item Value Reference Range Interpretation Comments Plt Morph (test code = Normal (08/17/2013 N Plt Morph) 19:58:00) [facility] [place]viewEenaydqPZZSEAUWMU5452-38-87 01:58:00 Test Item Value Reference Range Interpretation Comments Monocytes (test code = Monocytes) 8.4 2.0-12.0 N [facility] [place]viewAstaeiaSBWECEGISV7745-85-25 01:58:00 Test Item Value Reference Range Interpretation Comments Lymphocytes (test code = Lymphocytes) 17.7 20.0-40.0 L [facility] [place]viewErkiipkMDFBTBAHYB3647-21-76 01:58:00 Test Item Value Reference Range Interpretation Comments Segs (test code = Segs) 72.9 45.0-75.0 N [facility] [place]viewJqesmvzLMQZFGATDS2590-42-31 01:58:00 Test Item Value Reference Range Interpretation Comments RBC Morph (test code = Normal (08/17/2013 N RBC Morph) 19:58:00) [facility]viewKxqagauFVNDBRLPWL8380-31-80 01:58:00 Test Item Value Reference Range Interpretation Comments Eosinophils # (test code 0.1 See_Comment N [A utomated message] The = Eosinophils #) system whic h generated this result tra nsmitted reference range : <=0.5. The reference r kvng was not used to int erpret this result as normal/abnormal . [facility]viewYvpvgnnHIBYKIJNYN7915-53-11 01:58:00 Test Item Value Reference Range Interpretation Comments Basophils # (test code 0.0 See_Comment N [Aut omated message] The = Basophils #) system which generated this result tra nsmitted reference range : <=0.2. The reference r kvng was not used to int erpret this result as normal/abnormal . [facility] TexasJpmzttiZWBSJAVCR6390-54-08 01:58:00 Test Item Value Reference Range Interpretation Comments AGAP (test code = AGAP) 14.7 10.0-20.0 N [facility] TexasOweiohcMRYWPAQBY7754-91-76 01:58:00 Test Item Value Reference Range Interpretation Comments eGFR (test code = eGFR) 45 [facility] TexasAfcfvjpQKBQEMXZU0392-97-08 01:58:00 Test Item Value Reference Range Interpretation Comments Glucose Lvl (test code = Glucose Lvl) 90 70-99 N [facility] TexasTfweiznCHXCVWBGY6794-77-15 01:58:00 Test Item Value Reference Range Interpretation Comments Chloride Lvl (test code = Chloride Lvl) 105 95-109 N [facility] TexasDnpoynbITGEDIIUZ4291-73-85 01:58:00 Test Item Value Reference Range Interpretation Comments Potassium Lvl (test code = Potassium 3.7 3.5-5.1 N Lvl) [facility] TexasCixehzrMWYGNMZCK6444-05-08 01:58:00 Test Item Value Reference Range Interpretation Comments Sodium Lvl (test code = Sodium Lvl) 142 135-145 N [facility] TexasNrybtjzRACYTCTYQ0877-20-92 01:58:00 Test Item Value Reference Range Interpretation Comments Creatinine Lvl (test code = Creatinine 1.2 0.5-1.4 N Lvl) [facility] TexasIselddzWDZQUWNIZ1049-70-39 01:58:00 Test Item Value Reference Range Interpretation Comments BUN (test code = BUN) 12 7-22 N [facility] TexasAgkumwaZLLOXZOXO2628-60-05 01:58:00 Test Item Value Reference Range Interpretation Comments Calcium Lvl (test code = Calcium Lvl) 9.2 8.5-10.5 N [facility] TexasPrinmcnBDSDKRTER5956-98-37 01:58:00 Test Item Value Reference Range Interpretation Comments CO2 (test code = CO2) 26 24-32 N [facility] TexasFkgcbywCCZBFLCNE6369-95-90 01:58:00 Test Item Value Reference Range Interpretation Comments Etoh (%) (test code = Etoh (%)) <0.003 % N [facility] TexasQwlukziOCJFEDOVP4515-40-00 01:58:00 Test Item Value Reference Range Interpretation Comments Ethanol Lvl (test code = Ethanol <3.0 mg/dL N Lvl) [facility] TexasRwmdxzxIOVEHZGSQ3701-67-65 01:58:00 Test Item Value Reference Range Interpretation Comments Lactic Acid Lvl (test code = Lactic 2.9 0.5-2.2 H Acid Lvl) [facility] [place]viewScqpwzgNWXMLSLBTY0515-01-80 01:58:00 Test Item Value Reference Range Interpretation Comments MPV (test code = MPV) 7.5 7.4-10.4 N [facility]viewYswdunbJDJZMQZUFA1172-87-20 01:58:00 Test Item Value Reference Range Interpretation Comments WBC X 10x3 (test code = WBC X 10x3) 11.5 3.7-10.4 H [facility]viewWjyyshvZDGHKOBPSO7719-12-07 01:58:00 Test Item Value Reference Range Interpretation Comments Hgb (test code = Hgb) 14.2 14.0-18.0 N [facility] [place]viewRqvdnsiHHRADSCLYE1233-73-97 01:58:00 Test Item Value Reference Range Interpretation Comments RBC X 10x6 (test code = RBC X 10x6) 4.77 4.70-6.10 N [facility] [place]viewKmirvqfDLGTXHFDCS4997-89-70 01:58:00 Test Item Value Reference Range Interpretation Comments Hct (test code = Hct) 42.1 42.0-54.0 N [facility] [place]viewJjgjiylGMPEHWZBQB3300-42-78 01:58:00 Test Item Value Reference Range Interpretation Comments MCV (test code = MCV) 88.2 80.0-94.0 N [facility] [place]viewJxszkacHYDHBJXHJI5483-01-73 01:58:00 Test Item Value Reference Range Interpretation Comments MCH (test code = MCH) 29.7 pg 27.0-31.0 N [facility] [place]viewXajhytwMPWVSSVPSH6857-39-77 01:58:00 Test Item Value Reference Range Interpretation Comments RDW (test code = RDW) 12.7 11.5-14.5 N [facility] [place]viewEdakmgpXKKBYTBBKW7761-82-02 01:58:00 Test Item Value Reference Range Interpretation Comments MCHC (test code = MCHC) 33.7 32.0-36.0 N [facility] [place]viewLlwxorxBSLMIIFROU8257-07-65 01:58:00 Test Item Value Reference Range Interpretation Comments Platelet (test code = Platelet) 282 133-450 N [facility] [place]viewWsdxzsuEFPAETJJPI8259-34-74 01:58:00 Test Item Value Reference Range Interpretation Comments R-time (test code = R-time) 0.7 min 0.4-0.7 N [facility]viewMibybjyQYXYNZWPCZ0692-94-89 01:58:00 Test Item Value Reference Range Interpretation Comments K-time (test code = K-time) 1.2 min 0.6-2.3 N [facility] [place]viewRpppimaMTDANPAMAL7134-86-25 01:58:00 Test Item Value Reference Range Interpretation Comments Angle (test code = Angle) 75 degrees 64-80 N [facility]viewOjxlfdhZARIVQFZEP8051-31-73 01:58:00 Test Item Value Reference Range Interpretation Comments Rapid TEG Sample Type Citrated Whole Blood (test code = Rapid TEG Sample Type) [facility]viewPhppzbiHVDTOCYQRU4253-91-42 01:58:00 Test Item Value Reference Range Interpretation Comments ACT (TEG) (test code = ACT (TEG)) 113 s 86-118 N [facility]viewPqhqwcnTFAXTGWGYK6553-10-83 01:58:00 Test Item Value Reference Range Interpretation Comments Split Point (test code = Split Point) 0.6 min [facility]viewBhanaqgACJHBKSZCK2451-33-28 01:58:00 Test Item Value Reference Range Interpretation Comments Estimated % Lysis (test 1.2 See_Comment N [Au tomated message] The code = Estimated % system wh ich generated Lysis) this result tra nsmitted reference range : <=7.5. The reference r kvng was not used to int erpret this result as normal/abnormal . [facility]viewAndfpnuPLMJHCKUBU7648-89-47 01:58:00 Test Item Value Reference Range Interpretation Comments Max Amp (test code = Max Amp) 67 mm 52-71 N [facility] [place]viewVotehvcWTROLALWHP3011-50-24 01:58:00 Test Item Value Reference Range Interpretation Comments G-value (test code = G-value) 9.9 5.0-11.6 N [facility] [place]viewNaoffqoJWVAIJNOTV1724-77-96 01:58:00 Test Item Value Reference Range Interpretation Comments Monocytes # (test code 1.0 See_Comment H [Aut omated message] The = Monocytes #) system which generated this result tra nsmitted reference range : <=0.8. The reference r kvng was not used to int erpret this result as normal/abnormal . [facility]viewHdbejffFYBCNVLIEK2259-77-51 01:58:00 Test Item Value Reference Range Interpretation Comments Eosinophils (test code = 0.6 See_Comment N [A utomated message] The Eosinophils) system which ge nerated this result tra nsmitted reference range : <=4.0. The reference r kvng was not used to int erpret this result as normal/abnormal . [facility]viewJgrcwecBQLFQVQLNI5571-02-26 01:58:00 Test Item Value Reference Range Interpretation Comments Lymphocytes # (test code = Lymphocytes 2.0 1.0-5.5 N #) [facility]viewZdrsotmWAUQOPGVNV8625-67-95 01:58:00 Test Item Value Reference Range Interpretation Comments Segs-Bands # (test code = Segs-Bands #) 8.4 1.5-8.1 H [facility] [place]viewFilgsheMOCFBHNZAZ8735-89-19 01:58:00 Test Item Value Reference Range Interpretation Comments Basophils (test code = 0.4 See_Comment N [Aut omated message] The Basophils) system which ge nerated this result tra nsmitted reference range : <=1.0. The reference r kvng was not used to int erpret this result as normal/abnormal . [facility]viewKmcsfeqYQBPSMFWAM5139-39-23 01:58:00 Test Item Value Reference Range Interpretation Comments Plt Morph (test code = Normal (08/17/2013 N Plt Morph) 19:58:00) [facility]viewAhufttbQUCUIGRLCU5579-40-92 01:58:00 Test Item Value Reference Range Interpretation Comments Monocytes (test code = Monocytes) 8.4 2.0-12.0 N [facility]viewQbjzpjyZBFFKXRLJD0050-76-35 01:58:00 Test Item Value Reference Range Interpretation Comments Lymphocytes (test code = Lymphocytes) 17.7 20.0-40.0 L [facility] [place]viewZbgosgoPRWCBZEIXG1846-71-74 01:58:00 Test Item Value Reference Range Interpretation Comments Segs (test code = Segs) 72.9 45.0-75.0 N [facility] [place]viewKmulspmDAFCDBWEZR9132-20-06 01:58:00 Test Item Value Reference Range Interpretation Comments RBC Morph (test code = Normal (08/17/2013 N RBC Morph) 19:58:00) [facility]viewMmmtnhoCIMGJVWNBQ2038-82-97 01:58:00 Test Item Value Reference Range Interpretation Comments Eosinophils # (test code 0.1 See_Comment N [A utomated message] The = Eosinophils #) system whic h generated this result tra nsmitted reference range : <=0.5. The reference r kvng was not used to int erpret this result as normal/abnormal . [facility]MsseefjVUYOLGXGDI4969-[facility]-44 01:58:00 Test Item Value Reference Range Interpretation Comments Basophils # (test code 0.0 See_Comment N [Aut omated message] The = Basophils #) system which generated this result tra nsmitted reference range : <=0.2. The reference r kvng was not used to int erpret this result as normal/abnormal . [facility] TexasWgxsywiHXQDHCJTR5643-71-99 01:58:00 Test Item Value Reference Range Interpretation Comments AGAP (test code = AGAP) 14.7 10.0-20.0 N [facility] TexasVghpdwyNWZMTJYUJ4321-41-48 01:58:00 Test Item Value Reference Range Interpretation Comments eGFR (test code = eGFR) 45 [facility] TexasQsimmriQTRPEIOMA2393-86-38 01:58:00 Test Item Value Reference Range Interpretation Comments Glucose Lvl (test code = Glucose Lvl) 90 70-99 N [facility] TexasUyqkfrbWSDAVYQGY1103-11-42 01:58:00 Test Item Value Reference Range Interpretation Comments Chloride Lvl (test code = Chloride Lvl) 105 95-109 N [facility] TexasGimfgibKROLLYRSO8376-16-63 01:58:00 Test Item Value Reference Range Interpretation Comments Potassium Lvl (test code = Potassium 3.7 3.5-5.1 N Lvl) [facility] TexasLypsfrgZUQXAHXHZ6726-88-39 01:58:00 Test Item Value Reference Range Interpretation Comments Sodium Lvl (test code = Sodium Lvl) 142 135-145 N [facility] TexasLnetnbtKTRNLQXVX2117-44-24 01:58:00 Test Item Value Reference Range Interpretation Comments Creatinine Lvl (test code = Creatinine 1.2 0.5-1.4 N Lvl) [facility] TexasMkbrstyHGOQQNFPH5363-23-99 01:58:00 Test Item Value Reference Range Interpretation Comments BUN (test code = BUN) 12 7-22 N [facility] TexasCykphwwGXFUNNRNJ1169-83-39 01:58:00 Test Item Value Reference Range Interpretation Comments Calcium Lvl (test code = Calcium Lvl) 9.2 8.5-10.5 N [facility] TexasKcfsfulFXDSCDOGA1462-68-50 01:58:00 Test Item Value Reference Range Interpretation Comments CO2 (test code = CO2) 26 24-32 N [facility] TexasCiglnwsOLVFMLSBB3974-48-84 01:58:00 Test Item Value Reference Range Interpretation Comments Etoh (%) (test code = Etoh (%)) <0.003 % N [facility] TexasHxruyujJGRDEFSMS0709-95-34 01:58:00 Test Item Value Reference Range Interpretation Comments Ethanol Lvl (test code = Ethanol <3.0 mg/dL N Lvl) [facility] TexasFloyhtoGCVNETIDL0665-32-19 01:58:00 Test Item Value Reference Range Interpretation Comments Lactic Acid Lvl (test code = Lactic 2.9 0.5-2.2 H Acid Lvl) [facility]viewVsladceGCJMYTWDKC0241-99-82 01:58:00 Test Item Value Reference Range Interpretation Comments MPV (test code = MPV) 7.5 7.4-10.4 N [facility]viewZlvlmpbUNURQVRJUN7812-11-08 01:58:00 Test Item Value Reference Range Interpretation Comments WBC X 10x3 (test code = WBC X 10x3) 11.5 3.7-10.4 H [facility]viewIarwlatCYSYEPHTQZ3248-66-00 01:58:00 Test Item Value Reference Range Interpretation Comments Hgb (test code = Hgb) 14.2 14.0-18.0 N [facility]viewTsfhjxwTFUUOWSGQG1846-83-73 01:58:00 Test Item Value Reference Range Interpretation Comments RBC X 10x6 (test code = RBC X 10x6) 4.77 4.70-6.10 N [facility]viewCekwupoKHQCAINRFB6075-27-20 01:58:00 Test Item Value Reference Range Interpretation Comments Hct (test code = Hct) 42.1 42.0-54.0 N [facility]viewIfvpyiuCAJGZSXVZJ3291-97-20 01:58:00 Test Item Value Reference Range Interpretation Comments MCV (test code = MCV) 88.2 80.0-94.0 N [facility]viewBrsxarhFHURCNLQUG0686-00-35 01:58:00 Test Item Value Reference Range Interpretation Comments MCH (test code = MCH) 29.7 pg 27.0-31.0 N [facility]viewEigohgrNSKTZAZXNH7596-38-80 01:58:00 Test Item Value Reference Range Interpretation Comments RDW (test code = RDW) 12.7 11.5-14.5 N [facility]viewPxmrnjoNQTDQRADKE2602-23-89 01:58:00 Test Item Value Reference Range Interpretation Comments MCHC (test code = MCHC) 33.7 32.0-36.0 N [facility]viewAasobyvRNPVOTBMMG4721-19-00 01:58:00 Test Item Value Reference Range Interpretation Comments Platelet (test code = Platelet) 282 133-450 N [facility]viewXctjfhhYFCGDZPKPX4633-00-83 01:58:00 Test Item Value Reference Range Interpretation Comments R-time (test code = R-time) 0.7 min 0.4-0.7 N [facility]viewZgxfwxpWJAQIOVHZX3079-51-30 01:58:00 Test Item Value Reference Range Interpretation Comments K-time (test code = K-time) 1.2 min 0.6-2.3 N [facility]viewIpwjcibGJUJIDRYIG0917-91-95 01:58:00 Test Item Value Reference Range Interpretation Comments Angle (test code = Angle) 75 degrees 64-80 N [facility] LongviewNqwnumuDAVHRNFWYW1791-05-32 01:58:00 Test Item Value Reference Range Interpretation Comments Rapid TEG Sample Type Citrated Whole Blood (test code = Rapid TEG Sample Type) [facility]viewXohsfzhCJHORCUFAY8973-06-43 01:58:00 Test Item Value Reference Range Interpretation Comments ACT (TEG) (test code = ACT (TEG)) 113 s 86-118 N [facility]viewJlewskhSDMRTFRPEY5064-25-92 01:58:00 Test Item Value Reference Range Interpretation Comments Split Point (test code = Split Point) 0.6 min [facility] LongviewEnsjiroUEKEYQBEJD6425-19-73 01:58:00 Test Item Value Reference Range Interpretation Comments Estimated % Lysis (test 1.2 See_Comment N [Au tomated message] The code = Estimated % system wh ich generated Lysis) this result tra nsmitted reference range : <=7.5. The reference r kvng was not used to int erpret this result as normal/abnormal . [facility]viewUozehupRBLCLLDVBP0560-71-88 01:58:00 Test Item Value Reference Range Interpretation Comments Max Amp (test code = Max Amp) 67 mm 52-71 N [facility]viewQjmsdvxYFNRPERSVU0535-04-67 01:58:00 Test Item Value Reference Range Interpretation Comments G-value (test code = G-value) 9.9 5.0-11.6 N [facility]viewKbgawvpMKROSPSBVD9653-01-78 01:58:00 Test Item Value Reference Range Interpretation Comments Monocytes # (test code 1.0 See_Comment H [Aut omated message] The = Monocytes #) system which generated this result tra nsmitted reference range : <=0.8. The reference r kvng was not used to int erpret this result as normal/abnormal . [facility]viewPbbcjixISKPZGSAJF8884-30-76 01:58:00 Test Item Value Reference Range Interpretation Comments Eosinophils (test code = 0.6 See_Comment N [A utomated message] The Eosinophils) system which ge nerated this result tra nsmitted reference range : <=4.0. The reference r kvng was not used to int erpret this result as normal/abnormal . [facility] TexasEqmfrifZAEXWHCIU1054-74-37 01:58:00 Test Item Value Reference Range Interpretation Comments AGAP (test code = AGAP) 14.7 10.0-20.0 N [facility] [place]viewDrflfswUESDVTGVXC1561-57-44 01:58:00 Test Item Value Reference Range Interpretation Comments Lymphocytes # (test code = Lymphocytes 2.0 1.0-5.5 N #) [facility] TexasLiahwjuKUMLWGTBP8240-80-97 01:58:00 Test Item Value Reference Range Interpretation Comments eGFR (test code = eGFR) 45 [facility]viewFaebhgsANAKDLCRBN7075-93-84 01:58:00 Test Item Value Reference Range Interpretation Comments Segs-Bands # (test code = Segs-Bands #) 8.4 1.5-8.1 H [facility] TexasQlqsmaeOGRLEPAIT7067-61-20 01:58:00 Test Item Value Reference Range Interpretation Comments Glucose Lvl (test code = Glucose Lvl) 90 70-99 N [facility]viewSfpzqbpQEYVWTXSMC9252-07-11 01:58:00 Test Item Value Reference Range Interpretation Comments Basophils (test code = 0.4 See_Comment N [Aut omated message] The Basophils) system which ge nerated this result tra nsmitted reference range : <=1.0. The reference r kvng was not used to int erpret this result as normal/abnormal . [facility] TexasYhzabiqWEGKDXKWF3947-26-92 01:58:00 Test Item Value Reference Range Interpretation Comments Chloride Lvl (test code = Chloride Lvl) 105 95-109 N [facility]viewDaiiclpXWCZELVKVJ8755-75-74 01:58:00 Test Item Value Reference Range Interpretation Comments Plt Morph (test code = Normal (08/17/2013 N Plt Morph) 19:58:00) [facility] TexasYilcpdtWYXDGCLXP6587-64-94 01:58:00 Test Item Value Reference Range Interpretation Comments Potassium Lvl (test code = Potassium 3.7 3.5-5.1 N Lvl) [facility]viewWojtwnrJRKHOLOKBJ4038-27-76 01:58:00 Test Item Value Reference Range Interpretation Comments Monocytes (test code = Monocytes) 8.4 2.0-12.0 N [facility] TexasUfjrxisGUSQIOGBX0005-93-84 01:58:00 Test Item Value Reference Range Interpretation Comments Sodium Lvl (test code = Sodium Lvl) 142 135-145 N [facility]viewGgkugqcVUXWGLVHVC4039-44-67 01:58:00 Test Item Value Reference Range Interpretation Comments Lymphocytes (test code = Lymphocytes) 17.7 20.0-40.0 L [facility] TexasXxtavybDJRRGAMMU7217-58-02 01:58:00 Test Item Value Reference Range Interpretation Comments Creatinine Lvl (test code = Creatinine 1.2 0.5-1.4 N Lvl) [facility] LongviewWakkkiaOAWBURAKKP3818-83-66 01:58:00 Test Item Value Reference Range Interpretation Comments Segs (test code = Segs) 72.9 45.0-75.0 N [facility] TexasToioggeUOCTFVMVC6369-73-69 01:58:00 Test Item Value Reference Range Interpretation Comments BUN (test code = BUN) 12 7-22 N [facility]GjwcrlnTGFGUSDTKD3485-39-22 01:58:00 Test Item Value Reference Range Interpretation Comments RBC Morph (test code = Normal (08/17/2013 N RBC Morph) 19:58:00) [facility] TexasZarcdmnNKLOGITGC1224-52-34 01:58:00 Test Item Value Reference Range Interpretation Comments Calcium Lvl (test code = Calcium Lvl) 9.2 8.5-10.5 N [facility] TexasGzndinaLYQQBKCPY3565-43-64 01:58:00 Test Item Value Reference Range Interpretation Comments CO2 (test code = CO2) 26 24-32 N [facility]viewLwsmtcaGDNLZPRGZS5431-07-75 01:58:00 Test Item Value Reference Range Interpretation Comments Eosinophils # (test code 0.1 See_Comment N [A utomated message] The = Eosinophils #) system whic h generated this result tra nsmitted reference range : <=0.5. The reference r kvng was not used to int erpret this result as normal/abnormal . [facility] TexasQtngexwEIRNVSPIU0966-30-00 01:58:00 Test Item Value Reference Range Interpretation Comments Etoh (%) (test code = Etoh (%)) <0.003 % N [facility]viewDqlhqpuVGXBQEOHLF4644-69-42 01:58:00 Test Item Value Reference Range Interpretation Comments Basophils # (test code 0.0 See_Comment N [Aut omated message] The = Basophils #) system which generated this result tra nsmitted reference range : <=0.2. The reference r kvng was not used to int erpret this result as normal/abnormal . [facility] TexasBgvpocoHDLAAZKXE0799-16-58 01:58:00 Test Item Value Reference Range Interpretation Comments Ethanol Lvl (test code = Ethanol <3.0 mg/dL N Lvl) [facility] TexasQtjulkmKQOGEOOUF0223-50-58 01:58:00 Test Item Value Reference Range Interpretation Comments Lactic Acid Lvl (test code = Lactic 2.9 0.5-2.2 H Acid Lvl) [facility]viewLdjjzvjLSUQSEBMXB6856-69-58 01:58:00 Test Item Value Reference Range Interpretation Comments MPV (test code = MPV) 7.5 7.4-10.4 N [facility]viewPvwlgzkCALFYXNJRP2524-39-71 01:58:00 Test Item Value Reference Range Interpretation Comments WBC X 10x3 (test code = WBC X 10x3) 11.5 3.7-10.4 H [facility]viewPmbwmulLNTAXJZWIE8259-81-47 01:58:00 Test Item Value Reference Range Interpretation Comments Hgb (test code = Hgb) 14.2 14.0-18.0 N [facility]viewSwreorjRJUOTRUMAY2925-36-11 01:58:00 Test Item Value Reference Range Interpretation Comments RBC X 10x6 (test code = RBC X 10x6) 4.77 4.70-6.10 N [facility]viewMvrwdcoLIPKEDLKFL7501-30-52 01:58:00 Test Item Value Reference Range Interpretation Comments Hct (test code = Hct) 42.1 42.0-54.0 N [facility]viewEajhnjbHWPOYUYLOS7965-90-67 01:58:00 Test Item Value Reference Range Interpretation Comments MCV (test code = MCV) 88.2 80.0-94.0 N [facility]viewQfntidjEXCKGQKFOG9283-84-58 01:58:00 Test Item Value Reference Range Interpretation Comments MCH (test code = MCH) 29.7 pg 27.0-31.0 N [facility]viewUijwxzoJUZFQCIGHA6759-15-46 01:58:00 Test Item Value Reference Range Interpretation Comments RDW (test code = RDW) 12.7 11.5-14.5 N [facility]viewJcpjqckNUSITYGNRZ4207-09-65 01:58:00 Test Item Value Reference Range Interpretation Comments MCHC (test code = MCHC) 33.7 32.0-36.0 N [facility]viewYmmqmhcNFTUNUKJBF0540-74-33 01:58:00 Test Item Value Reference Range Interpretation Comments Platelet (test code = Platelet) 282 133-450 N [facility]viewAusvcxzVOHXEIGKWU2578-95-20 01:58:00 Test Item Value Reference Range Interpretation Comments R-time (test code = R-time) 0.7 min 0.4-0.7 N [facility]viewYrwtyctKFVPHISCLI2038-80-74 01:58:00 Test Item Value Reference Range Interpretation Comments K-time (test code = K-time) 1.2 min 0.6-2.3 N [facility]viewVezdrivXILSKCUSPJ0774-72-02 01:58:00 Test Item Value Reference Range Interpretation Comments Angle (test code = Angle) 75 degrees 64-80 N [facility]viewRmifszzKTSWEINPZH0723-70-59 01:58:00 Test Item Value Reference Range Interpretation Comments Rapid TEG Sample Type Citrated Whole Blood (test code = Rapid TEG Sample Type) [facility]viewNntghppNJXLWYCFVD4070-24-97 01:58:00 Test Item Value Reference Range Interpretation Comments ACT (TEG) (test code = ACT (TEG)) 113 s 86-118 N [facility]viewPerpkrbMQKIOZOZVS3976-78-71 01:58:00 Test Item Value Reference Range Interpretation Comments Split Point (test code = Split Point) 0.6 min [facility]viewZemrqpeSJQCZYLAEB0148-47-93 01:58:00 Test Item Value Reference Range Interpretation Comments Estimated % Lysis (test 1.2 See_Comment N [Au tomated message] The code = Estimated % system wh ich generated Lysis) this result tra nsmitted reference range : <=7.5. The reference r kvng was not used to int erpret this result as normal/abnormal . [facility]viewBygysjfINAOVZXDJS4523-93-04 01:58:00 Test Item Value Reference Range Interpretation Comments Max Amp (test code = Max Amp) 67 mm 52-71 N [facility]viewGqsxctrHYVESZYLFQ2930-45-34 01:58:00 Test Item Value Reference Range Interpretation Comments G-value (test code = G-value) 9.9 5.0-11.6 N [facility]viewJkbgnutZUQRZQOZTI3802-00-37 01:58:00 Test Item Value Reference Range Interpretation Comments Monocytes # (test code 1.0 See_Comment H [Aut omated message] The = Monocytes #) system which generated this result tra nsmitted reference range : <=0.8. The reference r kvng was not used to int erpret this result as normal/abnormal . [facility]viewStyhnopPSUZKMIOTS6760-55-89 01:58:00 Test Item Value Reference Range Interpretation Comments Eosinophils (test code = 0.6 See_Comment N [A utomated message] The Eosinophils) system which ge nerated this result tra nsmitted reference range : <=4.0. The reference r kvng was not used to int erpret this result as normal/abnormal . [facility]viewOhaykhsYRTKNEBTPI8120-61-11 01:58:00 Test Item Value Reference Range Interpretation Comments Lymphocytes # (test code = Lymphocytes 2.0 1.0-5.5 N #) [facility]viewFsemverMSDGNRSWEJ9446-63-08 01:58:00 Test Item Value Reference Range Interpretation Comments Segs-Bands # (test code = Segs-Bands #) 8.4 1.5-8.1 H [facility]viewOcgyjzsDDNOAPFPLO1557-44-73 01:58:00 Test Item Value Reference Range Interpretation Comments Basophils (test code = 0.4 See_Comment N [Aut omated message] The Basophils) system which ge nerated this result tra nsmitted reference range : <=1.0. The reference r kvng was not used to int erpret this result as normal/abnormal . [facility]viewWjxyzmpVVZGEYPJWO9020-79-76 01:58:00 Test Item Value Reference Range Interpretation Comments Plt Morph (test code = Normal (08/17/2013 N Plt Morph) 19:58:00) [facility]viewPmclkpyKRPLLAUIAO7668-42-88 01:58:00 Test Item Value Reference Range Interpretation Comments Monocytes (test code = Monocytes) 8.4 2.0-12.0 N [facility]viewVxutcmyOUFOALRLHD5614-22-16 01:58:00 Test Item Value Reference Range Interpretation Comments Lymphocytes (test code = Lymphocytes) 17.7 20.0-40.0 L [facility]viewKfarazuLPHTTZWDCO8151-16-67 01:58:00 Test Item Value Reference Range Interpretation Comments Segs (test code = Segs) 72.9 45.0-75.0 N [facility]viewFqrzehjLWTKRSFNQW4380-93-17 01:58:00 Test Item Value Reference Range Interpretation Comments RBC Morph (test code = Normal (08/17/2013 N RBC Morph) 19:58:00) [facility]viewXempnvgKVPYDAGVVA9021-59-52 01:58:00 Test Item Value Reference Range Interpretation Comments Eosinophils # (test code 0.1 See_Comment N [A utomated message] The = Eosinophils #) system whic h generated this result tra nsmitted reference range : <=0.5. The reference r kvng was not used to int erpret this result as normal/abnormal . [facility]viewXlqbinqGBRCPTWMPJ6861-46-12 01:58:00 Test Item Value Reference Range Interpretation Comments Basophils # (test code 0.0 See_Comment N [Aut omated message] The = Basophils #) system which generated this result tra nsmitted reference range : <=0.2. The reference r kvng was not used to int erpret this result as normal/abnormal . [facility] TexasIrfqqyjADWRTGLVK7370-61-96 01:58:00 Test Item Value Reference Range Interpretation Comments AGAP (test code = AGAP) 14.7 10.0-20.0 N [facility] TexasJuytrxbDRIBVMNWQ8571-53-87 01:58:00 Test Item Value Reference Range Interpretation Comments eGFR (test code = eGFR) 45 [facility] TexasUzwzcaoNPSAKPWQP8363-88-75 01:58:00 Test Item Value Reference Range Interpretation Comments Glucose Lvl (test code = Glucose Lvl) 90 70-99 N [facility] TexasBnnwragJIKHEPMUM0514-64-34 01:58:00 Test Item Value Reference Range Interpretation Comments Chloride Lvl (test code = Chloride Lvl) 105 95-109 N [facility] TexasJexnumpNKUAGFUBK0179-02-18 01:58:00 Test Item Value Reference Range Interpretation Comments Potassium Lvl (test code = Potassium 3.7 3.5-5.1 N Lvl) [facility] TexasGlzwvkoGQCGCPCHI9907-96-37 01:58:00 Test Item Value Reference Range Interpretation Comments Sodium Lvl (test code = Sodium Lvl) 142 135-145 N [facility] TexasOlkagscGSETOFDDA4755-42-11 01:58:00 Test Item Value Reference Range Interpretation Comments Creatinine Lvl (test code = Creatinine 1.2 0.5-1.4 N Lvl) [facility] TexasOjhzmzbCIYTONIKU7820-41-00 01:58:00 Test Item Value Reference Range Interpretation Comments BUN (test code = BUN) 12 7-22 N [facility] TexasAvvrtnrCBYWOECDJ4271-65-19 01:58:00 Test Item Value Reference Range Interpretation Comments Calcium Lvl (test code = Calcium Lvl) 9.2 8.5-10.5 N [facility] TexasPmkjdpyTSHMVGTBL3430-50-60 01:58:00 Test Item Value Reference Range Interpretation Comments CO2 (test code = CO2) 26 24-32 N [facility] TexasEdcybntTCKMAKGJH0288-68-37 01:58:00 Test Item Value Reference Range Interpretation Comments Etoh (%) (test code = Etoh (%)) <0.003 % N [facility] TexasAjmghuzTMHMJLUBY3318-27-35 01:58:00 Test Item Value Reference Range Interpretation Comments Ethanol Lvl (test code = Ethanol <3.0 mg/dL N Lvl) [facility] TexasIoijwbgKXYHBAIRW8183-16-52 01:58:00 Test Item Value Reference Range Interpretation Comments Lactic Acid Lvl (test code = Lactic 2.9 0.5-2.2 H Acid Lvl) [facility]viewLjnhzzbGVGATMJTCO7499-86-13 01:58:00 Test Item Value Reference Range Interpretation Comments MPV (test code = MPV) 7.5 7.4-10.4 N [facility]viewYcvkckmFOTQFXEXAK0234-27-70 01:58:00 Test Item Value Reference Range Interpretation Comments WBC X 10x3 (test code = WBC X 10x3) 11.5 3.7-10.4 H [facility]viewLohkdbyTEYLEZDRYO7155-07-79 01:58:00 Test Item Value Reference Range Interpretation Comments Hgb (test code = Hgb) 14.2 14.0-18.0 N [facility]viewRhsajdlJAIOEAJPVO4951-65-31 01:58:00 Test Item Value Reference Range Interpretation Comments RBC X 10x6 (test code = RBC X 10x6) 4.77 4.70-6.10 N [facility]viewCnsizmuFMWTFJMQYA5984-61-32 01:58:00 Test Item Value Reference Range Interpretation Comments Hct (test code = Hct) 42.1 42.0-54.0 N [facility]viewThlxxfuZGBCCOEEGA2732-61-68 01:58:00 Test Item Value Reference Range Interpretation Comments MCV (test code = MCV) 88.2 80.0-94.0 N [facility] TexasTczlqffSYTWVWYLF0689-91-62 01:58:00 Test Item Value Reference Range Interpretation Comments AGAP (test code = AGAP) 14.7 10.0-20.0 N [facility] TexasTwnogwaFWQYUZWDZ5192-90-42 01:58:00 Test Item Value Reference Range Interpretation Comments eGFR (test code = eGFR) 45 [facility]viewGfhynciZMVAYWUMJX0383-08-92 01:58:00 Test Item Value Reference Range Interpretation Comments MCH (test code = MCH) 29.7 pg 27.0-31.0 N [facility] TexasIlbqsqlQWVKMLJYG2187-57-44 01:58:00 Test Item Value Reference Range Interpretation Comments Glucose Lvl (test code = Glucose Lvl) 90 70-99 N [facility]viewWghritaYYWSULOMOR8312-28-47 01:58:00 Test Item Value Reference Range Interpretation Comments RDW (test code = RDW) 12.7 11.5-14.5 N [facility]viewLlqyudhMANBIEKNTV1667-79-58 01:58:00 Test Item Value Reference Range Interpretation Comments MCHC (test code = MCHC) 33.7 32.0-36.0 N [facility] TexasSczvmdlGGZWDVRPK0069-74-11 01:58:00 Test Item Value Reference Range Interpretation Comments Chloride Lvl (test code = Chloride Lvl) 105 95-109 N [facility]viewZpmtjkwOBRZRZINLH5169-08-00 01:58:00 Test Item Value Reference Range Interpretation Comments Platelet (test code = Platelet) 282 133-450 N [facility] TexasHtcsgzpDXTGUHYFY4944-55-65 01:58:00 Test Item Value Reference Range Interpretation Comments Potassium Lvl (test code = Potassium 3.7 3.5-5.1 N Lvl) [facility]viewQwdgsldCHUKIUEFTX7136-37-85 01:58:00 Test Item Value Reference Range Interpretation Comments R-time (test code = R-time) 0.7 min 0.4-0.7 N [facility] TexasGbozvvnLNUFWTFQL8302-44-30 01:58:00 Test Item Value Reference Range Interpretation Comments Sodium Lvl (test code = Sodium Lvl) 142 135-145 N [facility]viewKvxusudVXSZREGFMY6516-70-88 01:58:00 Test Item Value Reference Range Interpretation Comments K-time (test code = K-time) 1.2 min 0.6-2.3 N [facility] TexasQzkpjxfKBWPTGDXF5955-86-62 01:58:00 Test Item Value Reference Range Interpretation Comments Creatinine Lvl (test code = Creatinine 1.2 0.5-1.4 N Lvl) [facility]viewBnqezfhOZJEBGPHUV2012-79-19 01:58:00 Test Item Value Reference Range Interpretation Comments Angle (test code = Angle) 75 degrees 64-80 N [facility] TexasVwhkspvQMMVULVFY1796-09-89 01:58:00 Test Item Value Reference Range Interpretation Comments BUN (test code = BUN) 12 7-22 N [facility]viewLzhxocwBGNWWWLWHE8636-68-52 01:58:00 Test Item Value Reference Range Interpretation Comments Rapid TEG Sample Type Citrated Whole Blood (test code = Rapid TEG Sample Type) [facility] TexasCxitepmOSKDZNCVZ6373-69-30 01:58:00 Test Item Value Reference Range Interpretation Comments Calcium Lvl (test code = Calcium Lvl) 9.2 8.5-10.5 N [facility]viewXtdroymRLQKIPNHHY0914-40-82 01:58:00 Test Item Value Reference Range Interpretation Comments ACT (TEG) (test code = ACT (TEG)) 113 s 86-118 N [facility] TexasOwkzjpkTUFMCSTGN2013-62-07 01:58:00 Test Item Value Reference Range Interpretation Comments CO2 (test code = CO2) 26 24-32 N [facility]viewMmcamugEINBIKNWGE9785-37-25 01:58:00 Test Item Value Reference Range Interpretation Comments Split Point (test code = Split Point) 0.6 min [facility] TexasColqjhpOFJBJPUWE3005-08-29 01:58:00 Test Item Value Reference Range Interpretation Comments Etoh (%) (test code = Etoh (%)) <0.003 % N [facility] TexasFaohrirGPEHTOSQP1288-18-15 01:58:00 Test Item Value Reference Range Interpretation Comments Ethanol Lvl (test code = Ethanol <3.0 mg/dL N Lvl) [facility]viewVuveojcCKSQWEUOGE1617-11-55 01:58:00 Test Item Value Reference Range Interpretation Comments Estimated % Lysis (test 1.2 See_Comment N [Au tomated message] The code = Estimated % system wh ich generated Lysis) this result tra nsmitted reference range : <=7.5. The reference r kvng was not used to int erpret this result as normal/abnormal . [facility] TexasGxqospgVRRZJKLUB0928-00-03 01:58:00 Test Item Value Reference Range Interpretation Comments Lactic Acid Lvl (test code = Lactic 2.9 0.5-2.2 H Acid Lvl) [facility]viewTttvvjaUGPVGKOCDO2971-22-44 01:58:00 Test Item Value Reference Range Interpretation Comments Max Amp (test code = Max Amp) 67 mm 52-71 N [facility]viewGtcgcyiLPZVZFEALC7563-47-80 01:58:00 Test Item Value Reference Range Interpretation Comments MPV (test code = MPV) 7.5 7.4-10.4 N [facility]viewEbqzwruMBBNKGPYHE5041-77-29 01:58:00 Test Item Value Reference Range Interpretation Comments G-value (test code = G-value) 9.9 5.0-11.6 N [facility]viewJwfzkciHBIANAVWCD1918-68-86 01:58:00 Test Item Value Reference Range Interpretation Comments WBC X 10x3 (test code = WBC X 10x3) 11.5 3.7-10.4 H [facility]viewMfjlohsVHXENCUMOB0184-03-94 01:58:00 Test Item Value Reference Range Interpretation Comments Monocytes # (test code 1.0 See_Comment H [Aut omated message] The = Monocytes #) system which generated this result tra nsmitted reference range : <=0.8. The reference r kvng was not used to int erpret this result as normal/abnormal . [facility]viewOvnuwrjVOGMPSFDGZ5321-68-81 01:58:00 Test Item Value Reference Range Interpretation Comments Hgb (test code = Hgb) 14.2 14.0-18.0 N [facility]viewKwjrmioECIXQUECCP9219-91-26 01:58:00 Test Item Value Reference Range Interpretation Comments Eosinophils (test code = 0.6 See_Comment N [A utomated message] The Eosinophils) system which ge nerated this result tra nsmitted reference range : <=4.0. The reference r kvng was not used to int erpret this result as normal/abnormal . [facility]viewJradpyyTYGTNPVZKJ6773-67-22 01:58:00 Test Item Value Reference Range Interpretation Comments RBC X 10x6 (test code = RBC X 10x6) 4.77 4.70-6.10 N [facility]viewMexrfyeLMGHHREAVX9661-14-75 01:58:00 Test Item Value Reference Range Interpretation Comments Lymphocytes # (test code = Lymphocytes 2.0 1.0-5.5 N #) [facility]viewGcrcpnzTVROJMIRKB5121-05-98 01:58:00 Test Item Value Reference Range Interpretation Comments Hct (test code = Hct) 42.1 42.0-54.0 N [facility]viewOtvvcypVWQVAOEMTO7134-66-13 01:58:00 Test Item Value Reference Range Interpretation Comments Segs-Bands # (test code = Segs-Bands #) 8.4 1.5-8.1 H [facility]viewTmpnjxxAGGZFIGMGT6059-15-85 01:58:00 Test Item Value Reference Range Interpretation Comments MCV (test code = MCV) 88.2 80.0-94.0 N [facility] LongviewDexaioeAKWZWTZUCR0614-67-75 01:58:00 Test Item Value Reference Range Interpretation Comments Basophils (test code = 0.4 See_Comment N [Aut omated message] The Basophils) system which ge nerated this result tra nsmitted reference range : <=1.0. The reference r kvng was not used to int erpret this result as normal/abnormal . [facility]viewJzdpszuZVXKYPEIAU8608-55-70 01:58:00 Test Item Value Reference Range Interpretation Comments MCH (test code = MCH) 29.7 pg 27.0-31.0 N [facility]viewGxowhveOVVAZVMNCR8105-61-04 01:58:00 Test Item Value Reference Range Interpretation Comments Plt Morph (test code = Normal (08/17/2013 N Plt Morph) 19:58:00) [facility]viewRqddedzIMIXHDJQYY8838-76-52 01:58:00 Test Item Value Reference Range Interpretation Comments RDW (test code = RDW) 12.7 11.5-14.5 N [facility]viewNuxhxoaIUAZCINAJV9067-92-24 01:58:00 Test Item Value Reference Range Interpretation Comments Monocytes (test code = Monocytes) 8.4 2.0-12.0 N [facility]viewJqxkqyhXJUZKTPJNJ2952-61-82 01:58:00 Test Item Value Reference Range Interpretation Comments MCHC (test code = MCHC) 33.7 32.0-36.0 N [facility]viewVlzsypsEKRQFIHWJK6795-57-70 01:58:00 Test Item Value Reference Range Interpretation Comments Lymphocytes (test code = Lymphocytes) 17.7 20.0-40.0 L [facility]viewModgqgpWIVSUCRWZP0157-92-34 01:58:00 Test Item Value Reference Range Interpretation Comments Platelet (test code = Platelet) 282 133-450 N [facility] LongviewJirfenxSFQNYTPPME7848-72-83 01:58:00 Test Item Value Reference Range Interpretation Comments Segs (test code = Segs) 72.9 45.0-75.0 N [facility]viewWafgguhSKHTIZSLXD1914-48-26 01:58:00 Test Item Value Reference Range Interpretation Comments R-time (test code = R-time) 0.7 min 0.4-0.7 N [facility]viewUvuxgcfXHCWENYTIG6378-36-33 01:58:00 Test Item Value Reference Range Interpretation Comments RBC Morph (test code = Normal (08/17/2013 N RBC Morph) 19:58:00) [facility]viewCcojnznLHNJMDIOHX4219-22-92 01:58:00 Test Item Value Reference Range Interpretation Comments K-time (test code = K-time) 1.2 min 0.6-2.3 N [facility]viewJxayhqnQBQNFOTFEI1202-28-28 01:58:00 Test Item Value Reference Range Interpretation Comments Eosinophils # (test code 0.1 See_Comment N [A utomated message] The = Eosinophils #) system whic h generated this result tra nsmitted reference range : <=0.5. The reference r kvng was not used to int erpret this result as normal/abnormal . [facility]viewWbcndsmDJQGBUOGYF1153-90-69 01:58:00 Test Item Value Reference Range Interpretation Comments Angle (test code = Angle) 75 degrees 64-80 N [facility]viewXtiocqwMJYFKNXDVX3323-04-11 01:58:00 Test Item Value Reference Range Interpretation Comments Rapid TEG Sample Type Citrated Whole Blood (test code = Rapid TEG Sample Type) [facility] LongviewMcjwnnbEVTKGSXZTB1666-85-39 01:58:00 Test Item Value Reference Range Interpretation Comments Basophils # (test code 0.0 See_Comment N [Aut omated message] The = Basophils #) system which generated this result tra nsmitted reference range : <=0.2. The reference r kvng was not used to int erpret this result as normal/abnormal . [facility]viewUcvmewuQEZLTFGVOM6015-31-28 01:58:00 Test Item Value Reference Range Interpretation Comments ACT (TEG) (test code = ACT (TEG)) 113 s 86-118 N [facility]viewUqoybjkBYIKNPJHGC2411-25-82 01:58:00 Test Item Value Reference Range Interpretation Comments Split Point (test code = Split Point) 0.6 min [facility]viewVfhbtsbTMXPSYPMAQ4730-23-28 01:58:00 Test Item Value Reference Range Interpretation Comments Estimated % Lysis (test 1.2 See_Comment N [Au tomated message] The code = Estimated % system wh ich generated Lysis) this result tra nsmitted reference range : <=7.5. The reference r kvng was not used to int erpret this result as normal/abnormal . [facility]viewAunsgfxCFCYNBVZGY1939-70-85 01:58:00 Test Item Value Reference Range Interpretation Comments Max Amp (test code = Max Amp) 67 mm 52-71 N [facility]XpzlbnuVKXGABCSIF8533-01-75 01:58:00 Test Item Value Reference Range Interpretation Comments G-value (test code = G-value) 9.9 5.0-11.6 N [facility]viewOclvmwmRDFZGJLBDC4048-98-34 01:58:00 Test Item Value Reference Range Interpretation Comments Monocytes # (test code 1.0 See_Comment H [Aut omated message] The = Monocytes #) system which generated this result tra nsmitted reference range : <=0.8. The reference r kvng was not used to int erpret this result as normal/abnormal . [facility]viewAwvmkrlKQHUTQZWOR9188-68-03 01:58:00 Test Item Value Reference Range Interpretation Comments Eosinophils (test code = 0.6 See_Comment N [A utomated message] The Eosinophils) system which ge nerated this result tra nsmitted reference range : <=4.0. The reference r kvng was not used to int erpret this result as normal/abnormal . [facility]viewIybrompSDLBZZVPBW5531-51-38 01:58:00 Test Item Value Reference Range Interpretation Comments Lymphocytes # (test code = Lymphocytes 2.0 1.0-5.5 N #) [facility]viewVhkhhaqHTHCAQLSLG0913-39-85 01:58:00 Test Item Value Reference Range Interpretation Comments Segs-Bands # (test code = Segs-Bands #) 8.4 1.5-8.1 H [facility]viewAhtkrzcIAHEHZXJRM1698-60-63 01:58:00 Test Item Value Reference Range Interpretation Comments Basophils (test code = 0.4 See_Comment N [Aut omated message] The Basophils) system which ge nerated this result tra nsmitted reference range : <=1.0. The reference r kvng was not used to int erpret this result as normal/abnormal . [facility]viewKeqrewpMJCNVDVIXS2458-77-32 01:58:00 Test Item Value Reference Range Interpretation Comments Plt Morph (test code = Normal (08/17/2013 N Plt Morph) 19:58:00) [facility]viewJcpstnjENKGIMEAHB0567-38-56 01:58:00 Test Item Value Reference Range Interpretation Comments Monocytes (test code = Monocytes) 8.4 2.0-12.0 N [facility]viewBtdfgbxPEPPTFRMGO0422-00-59 01:58:00 Test Item Value Reference Range Interpretation Comments Lymphocytes (test code = Lymphocytes) 17.7 20.0-40.0 L [facility]viewBohyrseKVTUZBKMSJ8708-83-83 01:58:00 Test Item Value Reference Range Interpretation Comments Segs (test code = Segs) 72.9 45.0-75.0 N [facility]viewAurhcxxVZNSGIXFZN8921-84-97 01:58:00 Test Item Value Reference Range Interpretation Comments RBC Morph (test code = Normal (08/17/2013 N RBC Morph) 19:58:00) [facility]viewCgqousqHOJPPQRVPS8996-83-87 01:58:00 Test Item Value Reference Range Interpretation Comments Eosinophils # (test code 0.1 See_Comment N [A utomated message] The = Eosinophils #) system whic h generated this result tra nsmitted reference range : <=0.5. The reference r kvng was not used to int erpret this result as normal/abnormal . [facility]viewTllvulwZATWLWAUFL2408-45-65 01:58:00 Test Item Value Reference Range Interpretation Comments Basophils # (test code 0.0 See_Comment N [Aut omated message] The = Basophils #) system which generated this result tra nsmitted reference range : <=0.2. The reference r kvng was not used to int erpret this result as normal/abnormal . [facility] TexasSmckgclJQUTKFGGM0189-93-90 01:58:00 Test Item Value Reference Range Interpretation Comments AGAP (test code = AGAP) 14.7 10.0-20.0 N [facility] TexasUbsycmePYZNITRTQ9502-58-49 01:58:00 Test Item Value Reference Range Interpretation Comments eGFR (test code = eGFR) 45 [facility] TexasMbhsvwbWSSECTOXZ3257-20-82 01:58:00 Test Item Value Reference Range Interpretation Comments Glucose Lvl (test code = Glucose Lvl) 90 70-99 N [facility] TexasEfenhlxLNSBHFKPC7137-57-38 01:58:00 Test Item Value Reference Range Interpretation Comments Chloride Lvl (test code = Chloride Lvl) 105 95-109 N [facility] TexasKxbfbetVJGGNSEKE0911-40-59 01:58:00 Test Item Value Reference Range Interpretation Comments Potassium Lvl (test code = Potassium 3.7 3.5-5.1 N Lvl) [facility] TexasFjhzmjkMCBGDKDPH7550-24-67 01:58:00 Test Item Value Reference Range Interpretation Comments Sodium Lvl (test code = Sodium Lvl) 142 135-145 N [facility] TexasPxxqitxPEMFCUOTP9935-95-73 01:58:00 Test Item Value Reference Range Interpretation Comments Creatinine Lvl (test code = Creatinine 1.2 0.5-1.4 N Lvl) [facility] TexasXerxcqxHYFHCAFFH1837-42-04 01:58:00 Test Item Value Reference Range Interpretation Comments BUN (test code = BUN) 12 7-22 N [facility] TexasRdgplezBIPGUZDXR4732-81-37 01:58:00 Test Item Value Reference Range Interpretation Comments Calcium Lvl (test code = Calcium Lvl) 9.2 8.5-10.5 N [facility] TexasIwfesqpWFCQICMJL4154-00-45 01:58:00 Test Item Value Reference Range Interpretation Comments CO2 (test code = CO2) 26 24-32 N [facility] TexasDjdfreyKOGJBUVUW3504-22-31 01:58:00 Test Item Value Reference Range Interpretation Comments Etoh (%) (test code = Etoh (%)) <0.003 % N [facility] TexasClhaaawFJPRFFLKD9115-91-99 01:58:00 Test Item Value Reference Range Interpretation Comments Ethanol Lvl (test code = Ethanol <3.0 mg/dL N Lvl) [facility] TexasFxiwimaWBDEZXUZU0703-06-05 01:58:00 Test Item Value Reference Range Interpretation Comments Lactic Acid Lvl (test code = Lactic 2.9 0.5-2.2 H Acid Lvl) [facility]viewDhhdizfTBOHRPPQHK3814-42-93 01:58:00 Test Item Value Reference Range Interpretation Comments MPV (test code = MPV) 7.5 7.4-10.4 N [facility]viewZixgnxgEKHJVERLPX4267-81-56 01:58:00 Test Item Value Reference Range Interpretation Comments WBC X 10x3 (test code = WBC X 10x3) 11.5 3.7-10.4 H [facility]viewIxmiccsTBISBLXXAT7940-69-99 01:58:00 Test Item Value Reference Range Interpretation Comments Hgb (test code = Hgb) 14.2 14.0-18.0 N [facility]viewPxhjxqgEQXQROIHFK2259-38-89 01:58:00 Test Item Value Reference Range Interpretation Comments RBC X 10x6 (test code = RBC X 10x6) 4.77 4.70-6.10 N [facility]viewKxzmvgrRUWEZBFHMW1486-86-88 01:58:00 Test Item Value Reference Range Interpretation Comments Hct (test code = Hct) 42.1 42.0-54.0 N [facility]viewOjodthnXNSJUYUBJM9605-84-38 01:58:00 Test Item Value Reference Range Interpretation Comments MCV (test code = MCV) 88.2 80.0-94.0 N [facility]viewEjsnwgpIGDOFUCZAB5183-72-07 01:58:00 Test Item Value Reference Range Interpretation Comments MCH (test code = MCH) 29.7 pg 27.0-31.0 N [facility]viewPnrccoeKAXBAFNZFE6370-55-04 01:58:00 Test Item Value Reference Range Interpretation Comments RDW (test code = RDW) 12.7 11.5-14.5 N [facility]viewDtolijmTBFMTWGBOA6682-82-87 01:58:00 Test Item Value Reference Range Interpretation Comments MCHC (test code = MCHC) 33.7 32.0-36.0 N [facility]viewSpeuuurNZWNSBZUZP5320-08-38 01:58:00 Test Item Value Reference Range Interpretation Comments Platelet (test code = Platelet) 282 133-450 N [facility]viewUaznhigNVFCFLSWKV2073-89-91 01:58:00 Test Item Value Reference Range Interpretation Comments R-time (test code = R-time) 0.7 min 0.4-0.7 N [facility]viewBakvejbELZVIABRFF6790-90-21 01:58:00 Test Item Value Reference Range Interpretation Comments K-time (test code = K-time) 1.2 min 0.6-2.3 N [facility]viewHkgzcxbHXPOXWEHFR0249-56-98 01:58:00 Test Item Value Reference Range Interpretation Comments Angle (test code = Angle) 75 degrees 64-80 N [facility]viewBjzlegqGBAFEFHTEO2190-62-13 01:58:00 Test Item Value Reference Range Interpretation Comments Rapid TEG Sample Type Citrated Whole Blood (test code = Rapid TEG Sample Type) [facility]viewYsygxvbTFOHGRVLNK7106-88-06 01:58:00 Test Item Value Reference Range Interpretation Comments ACT (TEG) (test code = ACT (TEG)) 113 s 86-118 N [facility]viewCkklqbpWNNGUENNDH0601-87-54 01:58:00 Test Item Value Reference Range Interpretation Comments Split Point (test code = Split Point) 0.6 min [facility]viewRmbzkthGCWOUGQKMV3854-40-65 01:58:00 Test Item Value Reference Range Interpretation Comments Estimated % Lysis (test 1.2 See_Comment N [Au tomated message] The code = Estimated % system wh ich generated Lysis) this result tra nsmitted reference range : <=7.5. The reference r kvng was not used to int erpret this result as normal/abnormal . [facility]viewAfmblshLUAZOBWFMW2853-98-01 01:58:00 Test Item Value Reference Range Interpretation Comments Max Amp (test code = Max Amp) 67 mm 52-71 N [facility]viewNlclgrnOZTRSUCFUM6249-10-08 01:58:00 Test Item Value Reference Range Interpretation Comments G-value (test code = G-value) 9.9 5.0-11.6 N [facility]viewUfcobgrSPYHHCIHAR9970-25-22 01:58:00 Test Item Value Reference Range Interpretation Comments Monocytes # (test code 1.0 See_Comment H [Aut omated message] The = Monocytes #) system which generated this result tra nsmitted reference range : <=0.8. The reference r kvng was not used to int erpret this result as normal/abnormal . [facility]viewWoerrjrFOCSKPJXPJ9651-95-03 01:58:00 Test Item Value Reference Range Interpretation Comments Eosinophils (test code = 0.6 See_Comment N [A utomated message] The Eosinophils) system which ge nerated this result tra nsmitted reference range : <=4.0. The reference r kvng was not used to int erpret this result as normal/abnormal . [facility]viewLthzptlMPZBFZGENN7764-40-94 01:58:00 Test Item Value Reference Range Interpretation Comments Lymphocytes # (test code = Lymphocytes 2.0 1.0-5.5 N #) [facility]viewYgtpmfmVYXOIJQZMO2922-25-89 01:58:00 Test Item Value Reference Range Interpretation Comments Segs-Bands # (test code = Segs-Bands #) 8.4 1.5-8.1 H [facility]viewChqmndeKZBSXAUMXN3947-24-49 01:58:00 Test Item Value Reference Range Interpretation Comments Basophils (test code = 0.4 See_Comment N [Aut omated message] The Basophils) system which ge nerated this result tra nsmitted reference range : <=1.0. The reference r kvng was not used to int erpret this result as normal/abnormal . [facility]viewCqvwukdBATZGLCSHC1501-85-07 01:58:00 Test Item Value Reference Range Interpretation Comments Plt Morph (test code = Normal (08/17/2013 N Plt Morph) 19:58:00) [facility]viewRihkildLHFXEUQNZV4166-31-10 01:58:00 Test Item Value Reference Range Interpretation Comments Monocytes (test code = Monocytes) 8.4 2.0-12.0 N [facility]viewZtvezbjYKMOPIPZXO0582-70-68 01:58:00 Test Item Value Reference Range Interpretation Comments Lymphocytes (test code = Lymphocytes) 17.7 20.0-40.0 L [facility]viewOpvepyiNEMBAVEFGT7981-52-73 01:58:00 Test Item Value Reference Range Interpretation Comments Segs (test code = Segs) 72.9 45.0-75.0 N [facility]viewOlfkrgwZGPBLPZEYM4753-86-76 01:58:00 Test Item Value Reference Range Interpretation Comments RBC Morph (test code = Normal (08/17/2013 N RBC Morph) 19:58:00) [facility]viewLjfgzlcWHUXFIULCZ3149-88-48 01:58:00 Test Item Value Reference Range Interpretation Comments Eosinophils # (test code 0.1 See_Comment N [A utomated message] The = Eosinophils #) system whic h generated this result tra nsmitted reference range : <=0.5. The reference r kvng was not used to int erpret this result as normal/abnormal . [facility]viewHkomlnfDBFONGZGDX5377-75-41 01:58:00 Test Item Value Reference Range Interpretation Comments Basophils # (test code 0.0 See_Comment N [Aut omated message] The = Basophils #) system which generated this result tra nsmitted reference range : <=0.2. The reference r kvng was not used to int erpret this result as normal/abnormal . [facility] TexasNvnljquLSSHEMPAH8679-55-39 01:58:00 Test Item Value Reference Range Interpretation Comments AGAP (test code = AGAP) 14.7 10.0-20.0 N [facility] TexasOwmjwbeXUHFIVAWP8992-52-34 01:58:00 Test Item Value Reference Range Interpretation Comments eGFR (test code = eGFR) 45 [facility] TexasHfoklvdUNLMBYHHH6944-08-53 01:58:00 Test Item Value Reference Range Interpretation Comments Glucose Lvl (test code = Glucose Lvl) 90 70-99 N [facility] TexasQgsbdybMDTOSQEVH1036-83-09 01:58:00 Test Item Value Reference Range Interpretation Comments Chloride Lvl (test code = Chloride Lvl) 105 95-109 N [facility] TexasMvkqaqwJSQPENGRI0159-89-42 01:58:00 Test Item Value Reference Range Interpretation Comments Potassium Lvl (test code = Potassium 3.7 3.5-5.1 N Lvl) [facility] TexasSerkgvbYAFAFQGOM7312-35-77 01:58:00 Test Item Value Reference Range Interpretation Comments Sodium Lvl (test code = Sodium Lvl) 142 135-145 N [facility] TexasZcimxsgLFTXDISAI3636-68-72 01:58:00 Test Item Value Reference Range Interpretation Comments Creatinine Lvl (test code = Creatinine 1.2 0.5-1.4 N Lvl) [facility] TexasCmrxxzfAUQMDIBZH9652-68-22 01:58:00 Test Item Value Reference Range Interpretation Comments BUN (test code = BUN) 12 7-22 N [facility] TexasPgmodreZWTZRBZAA3902-69-48 01:58:00 Test Item Value Reference Range Interpretation Comments Calcium Lvl (test code = Calcium Lvl) 9.2 8.5-10.5 N [facility] TexasGoyzkpxYVVRFLQDG1774-43-91 01:58:00 Test Item Value Reference Range Interpretation Comments CO2 (test code = CO2) 26 24-32 N [facility] TexasYfrxpbtYKIXOSSYJ7786-09-66 01:58:00 Test Item Value Reference Range Interpretation Comments Etoh (%) (test code = Etoh (%)) <0.003 % N [facility] TexasWjdbpebTCVOLJVMM5919-55-49 01:58:00 Test Item Value Reference Range Interpretation Comments Ethanol Lvl (test code = Ethanol <3.0 mg/dL N Lvl) [facility] TexasUysnatyYGQQZJNSR4380-18-31 01:58:00 Test Item Value Reference Range Interpretation Comments Lactic Acid Lvl (test code = Lactic 2.9 0.5-2.2 H Acid Lvl) [facility]viewGoafbxqEJCBCRKIAS6744-44-77 01:58:00 Test Item Value Reference Range Interpretation Comments MPV (test code = MPV) 7.5 7.4-10.4 N [facility]viewCpwefwkVXLEYJNTDH1826-57-69 01:58:00 Test Item Value Reference Range Interpretation Comments WBC X 10x3 (test code = WBC X 10x3) 11.5 3.7-10.4 H [facility]viewGstplgkDFIRYUNRPS7698-45-42 01:58:00 Test Item Value Reference Range Interpretation Comments Hgb (test code = Hgb) 14.2 14.0-18.0 N [facility]viewBobmtbnAGOOMSZTOC9866-35-93 01:58:00 Test Item Value Reference Range Interpretation Comments RBC X 10x6 (test code = RBC X 10x6) 4.77 4.70-6.10 N [facility]viewKjumuogSOLARFQAOY2727-86-19 01:58:00 Test Item Value Reference Range Interpretation Comments Hct (test code = Hct) 42.1 42.0-54.0 N [facility]viewYowaewrQYFUZXFLAU0376-96-64 01:58:00 Test Item Value Reference Range Interpretation Comments MCV (test code = MCV) 88.2 80.0-94.0 N [facility]viewFcyioinBIHMKFCCOL2463-14-82 01:58:00 Test Item Value Reference Range Interpretation Comments MCH (test code = MCH) 29.7 pg 27.0-31.0 N [facility]viewPqlfuozDWMLPQRIMV6416-82-63 01:58:00 Test Item Value Reference Range Interpretation Comments RDW (test code = RDW) 12.7 11.5-14.5 N [facility]viewAhapuubGYSBYBYEZI8069-26-95 01:58:00 Test Item Value Reference Range Interpretation Comments MCHC (test code = MCHC) 33.7 32.0-36.0 N [facility]viewGafnnbyJPTUMCAIBB4305-26-76 01:58:00 Test Item Value Reference Range Interpretation Comments Platelet (test code = Platelet) 282 133-450 N [facility]viewJowvxsiEJOQVISBRC1469-45-44 01:58:00 Test Item Value Reference Range Interpretation Comments R-time (test code = R-time) 0.7 min 0.4-0.7 N [facility]viewFrjbtowTXFJFCJMPR1255-94-68 01:58:00 Test Item Value Reference Range Interpretation Comments K-time (test code = K-time) 1.2 min 0.6-2.3 N [facility]viewBgeddmcYWDWZNEDSD1496-92-62 01:58:00 Test Item Value Reference Range Interpretation Comments Angle (test code = Angle) 75 degrees 64-80 N [facility]viewLtpniceQIHNGVJMLK5270-24-07 01:58:00 Test Item Value Reference Range Interpretation Comments Rapid TEG Sample Type Citrated Whole Blood (test code = Rapid TEG Sample Type) [facility]viewQfxbjzwXJQORZQIWC6727-98-32 01:58:00 Test Item Value Reference Range Interpretation Comments ACT (TEG) (test code = ACT (TEG)) 113 s 86-118 N [facility]viewLirlpodPCIXVBUQPR8422-48-14 01:58:00 Test Item Value Reference Range Interpretation Comments Split Point (test code = Split Point) 0.6 min [facility]viewEezvqzwBBKFNWZLNE2554-21-29 01:58:00 Test Item Value Reference Range Interpretation Comments Estimated % Lysis (test 1.2 See_Comment N [Au tomated message] The code = Estimated % system wh ich generated Lysis) this result tra nsmitted reference range : <=7.5. The reference r kvng was not used to int erpret this result as normal/abnormal . [facility]viewJyonubcIAARIHZMRD5165-64-05 01:58:00 Test Item Value Reference Range Interpretation Comments Max Amp (test code = Max Amp) 67 mm 52-71 N [facility]viewRhatahjZBNJJTQWVK1130-07-85 01:58:00 Test Item Value Reference Range Interpretation Comments G-value (test code = G-value) 9.9 5.0-11.6 N [facility]viewDcexninVCTHPALATY8015-82-09 01:58:00 Test Item Value Reference Range Interpretation Comments Monocytes # (test code 1.0 See_Comment H [Aut omated message] The = Monocytes #) system which generated this result tra nsmitted reference range : <=0.8. The reference r kvng was not used to int erpret this result as normal/abnormal . [facility]viewLiuqdmwTIMGWYLDTV8368-28-07 01:58:00 Test Item Value Reference Range Interpretation Comments Eosinophils (test code = 0.6 See_Comment N [A utomated message] The Eosinophils) system which ge nerated this result tra nsmitted reference range : <=4.0. The reference r kvng was not used to int erpret this result as normal/abnormal . [facility]viewRyzxtvcBWSHQNGOLB2466-44-17 01:58:00 Test Item Value Reference Range Interpretation Comments Lymphocytes # (test code = Lymphocytes 2.0 1.0-5.5 N #) [facility]viewUhhswmwPRBFLGNBOT6759-95-32 01:58:00 Test Item Value Reference Range Interpretation Comments Segs-Bands # (test code = Segs-Bands #) 8.4 1.5-8.1 H [facility]viewWmoiuhwVIPPFENIGV9928-10-87 01:58:00 Test Item Value Reference Range Interpretation Comments Basophils (test code = 0.4 See_Comment N [Aut omated message] The Basophils) system which ge nerated this result tra nsmitted reference range : <=1.0. The reference r kvng was not used to int erpret this result as normal/abnormal . [facility]viewMorxvnvOEPEOESMQE1944-17-15 01:58:00 Test Item Value Reference Range Interpretation Comments Plt Morph (test code = Normal (08/17/2013 N Plt Morph) 19:58:00) [facility]viewCekawqjQQCPHNZJFN1693-83-38 01:58:00 Test Item Value Reference Range Interpretation Comments Monocytes (test code = Monocytes) 8.4 2.0-12.0 N [facility]viewMipblfkISSRTBZKLR4695-66-17 01:58:00 Test Item Value Reference Range Interpretation Comments Lymphocytes (test code = Lymphocytes) 17.7 20.0-40.0 L [facility]viewUuwggksYYREERXPYH7841-56-01 01:58:00 Test Item Value Reference Range Interpretation Comments Segs (test code = Segs) 72.9 45.0-75.0 N [facility]viewSpwtrcoDCBKVXAQSQ6099-06-41 01:58:00 Test Item Value Reference Range Interpretation Comments RBC Morph (test code = Normal (08/17/2013 N RBC Morph) 19:58:00) [facility]viewUtdwuvjGFNDNADGDN7619-12-33 01:58:00 Test Item Value Reference Range Interpretation Comments Eosinophils # (test code 0.1 See_Comment N [A utomated message] The = Eosinophils #) system whic h generated this result tra nsmitted reference range : <=0.5. The reference r kvng was not used to int erpret this result as normal/abnormal . [facility]viewNtbueimXWVPXZYRST7356-73-19 01:58:00 Test Item Value Reference Range Interpretation Comments Basophils # (test code 0.0 See_Comment N [Aut omated message] The = Basophils #) system which generated this result tra nsmitted reference range : <=0.2. The reference r kvng was not used to int erpret this result as normal/abnormal . [facility] TexasQgeavasMYWTLEYIU1465-52-42 01:58:00 Test Item Value Reference Range Interpretation Comments AGAP (test code = AGAP) 14.7 10.0-20.0 N [facility] TexasYgxzzkrNTIAGZKXR1136-92-95 01:58:00 Test Item Value Reference Range Interpretation Comments eGFR (test code = eGFR) 45 [facility] TexasJjjpemoXFELKBWHH4899-18-05 01:58:00 Test Item Value Reference Range Interpretation Comments Glucose Lvl (test code = Glucose Lvl) 90 70-99 N [facility] TexasKsgupkhWHBHGTTRR1979-94-24 01:58:00 Test Item Value Reference Range Interpretation Comments Chloride Lvl (test code = Chloride Lvl) 105 95-109 N [facility] TexasMiaotrvPAHFADPNY8758-85-54 01:58:00 Test Item Value Reference Range Interpretation Comments Potassium Lvl (test code = Potassium 3.7 3.5-5.1 N Lvl) [facility] TexasUrxqgwhWLAWRZXHQ9126-48-98 01:58:00 Test Item Value Reference Range Interpretation Comments Sodium Lvl (test code = Sodium Lvl) 142 135-145 N [facility] TexasAjwcjqnLTEEWVPKB5254-76-78 01:58:00 Test Item Value Reference Range Interpretation Comments Creatinine Lvl (test code = Creatinine 1.2 0.5-1.4 N Lvl) [facility] TexasAqpqzwxJSYVWJEWZ0709-85-85 01:58:00 Test Item Value Reference Range Interpretation Comments BUN (test code = BUN) 12 7-22 N [facility] TexasZsqoyofIMNGSGBUT8981-12-96 01:58:00 Test Item Value Reference Range Interpretation Comments Calcium Lvl (test code = Calcium Lvl) 9.2 8.5-10.5 N [facility] TexasLvufdwgBZXSUMTKD4533-08-50 01:58:00 Test Item Value Reference Range Interpretation Comments CO2 (test code = CO2) 26 24-32 N [facility] TexasPhlusqrQPZEAPYBY2791-06-59 01:58:00 Test Item Value Reference Range Interpretation Comments Etoh (%) (test code = Etoh (%)) <0.003 % N [facility] [place]bcujbSQVZADZJG3162-46-09 01:58:00 Test Item Value Reference Range Interpretation Comments Ethanol Lvl (test code = Ethanol <3.0 mg/dL N Lvl) [facility] [place]YgqdmfgKKSNRGJMR1538-19-70 01:58:00 Test Item Value Reference Range Interpretation Comments Lactic Acid Lvl (test code = Lactic 2.9 0.5-2.2 H Acid Lvl) [facility]NlhnnobTKXUNEEOLM9238-88-36 01:58:00 Test Item Value Reference Range Interpretation Comments MPV (test code = MPV) 7.5 7.4-10.4 N [facility]viewTjkvxcsDIGATMIBNZ3398-71-86 01:58:00 Test Item Value Reference Range Interpretation Comments WBC X 10x3 (test code = WBC X 10x3) 11.5 3.7-10.4 H [facility]viewJcwomgbZVHOEMIJHN8158-98-36 01:58:00 Test Item Value Reference Range Interpretation Comments Hgb (test code = Hgb) 14.2 14.0-18.0 N [facility]viewIirmxpwVESOARGSAE9931-03-99 01:58:00 Test Item Value Reference Range Interpretation Comments RBC X 10x6 (test code = RBC X 10x6) 4.77 4.70-6.10 N [facility]viewRrtmnajRRPGVHKTHX5768-01-06 01:58:00 Test Item Value Reference Range Interpretation Comments Hct (test code = Hct) 42.1 42.0-54.0 N [facility]viewMsizvgaYHQHKUADWR3598-69-21 01:58:00 Test Item Value Reference Range Interpretation Comments MCV (test code = MCV) 88.2 80.0-94.0 N [facility]viewIfzmdeyYTHOGNXTOR8629-83-05 01:58:00 Test Item Value Reference Range Interpretation Comments MCH (test code = MCH) 29.7 pg 27.0-31.0 N [facility]viewEsqpomiEBVFAYRDFO5753-72-95 01:58:00 Test Item Value Reference Range Interpretation Comments RDW (test code = RDW) 12.7 11.5-14.5 N [facility]viewVyhwsyxOTUHYIAEGE6045-09-47 01:58:00 Test Item Value Reference Range Interpretation Comments MCHC (test code = MCHC) 33.7 32.0-36.0 N [facility]viewQvxppueHGFYRWVNCW9262-93-03 01:58:00 Test Item Value Reference Range Interpretation Comments Platelet (test code = Platelet) 282 133-450 N [facility]viewOolnmlxYJIBEWXOJK8709-13-04 01:58:00 Test Item Value Reference Range Interpretation Comments R-time (test code = R-time) 0.7 min 0.4-0.7 N [facility]viewWbgeoqaWFNWXABNQE8891-06-19 01:58:00 Test Item Value Reference Range Interpretation Comments K-time (test code = K-time) 1.2 min 0.6-2.3 N [facility]viewXtvddkzLVNQYEBWDT3776-01-71 01:58:00 Test Item Value Reference Range Interpretation Comments Angle (test code = Angle) 75 degrees 64-80 N [facility]viewEfktylcHCNAGTLCJP7382-50-20 01:58:00 Test Item Value Reference Range Interpretation Comments Rapid TEG Sample Type Citrated Whole Blood (test code = Rapid TEG Sample Type) [facility]viewZxgngvbEXZRHBESPC7763-98-42 01:58:00 Test Item Value Reference Range Interpretation Comments ACT (TEG) (test code = ACT (TEG)) 113 s 86-118 N [facility]viewAufzftwGTHRCKDTZR5324-15-35 01:58:00 Test Item Value Reference Range Interpretation Comments Split Point (test code = Split Point) 0.6 min [facility]viewGtqtjnwZBGEBNZHWO9347-31-73 01:58:00 Test Item Value Reference Range Interpretation Comments Estimated % Lysis (test 1.2 See_Comment N [Au tomated message] The code = Estimated % system wh ich generated Lysis) this result tra nsmitted reference range : <=7.5. The reference r kvng was not used to int erpret this result as normal/abnormal . [facility]viewGfltbfcWBQRESMNKR8375-63-90 01:58:00 Test Item Value Reference Range Interpretation Comments Max Amp (test code = Max Amp) 67 mm 52-71 N [facility]viewBugckrdWRIAIFKNWN4862-65-00 01:58:00 Test Item Value Reference Range Interpretation Comments G-value (test code = G-value) 9.9 5.0-11.6 N [facility]viewOudqjzoVBFIIANOOJ7634-34-66 01:58:00 Test Item Value Reference Range Interpretation Comments Monocytes # (test code 1.0 See_Comment H [Aut omated message] The = Monocytes #) system which generated this result tra nsmitted reference range : <=0.8. The reference r kvng was not used to int erpret this result as normal/abnormal . [facility]viewUovrnbaPDNCAGWWPP5011-15-80 01:58:00 Test Item Value Reference Range Interpretation Comments Eosinophils (test code = 0.6 See_Comment N [A utomated message] The Eosinophils) system which ge nerated this result tra nsmitted reference range : <=4.0. The reference r kvng was not used to int erpret this result as normal/abnormal . [facility]viewFlpsjkcSDFNOMSCDR5148-45-51 01:58:00 Test Item Value Reference Range Interpretation Comments Lymphocytes # (test code = Lymphocytes 2.0 1.0-5.5 N #) [facility]viewBavtnukXNQHDKJNDY5823-51-79 01:58:00 Test Item Value Reference Range Interpretation Comments Segs-Bands # (test code = Segs-Bands #) 8.4 1.5-8.1 H [facility]viewIcdrckcHOQHZDGRLD8441-97-25 01:58:00 Test Item Value Reference Range Interpretation Comments Basophils (test code = 0.4 See_Comment N [Aut omated message] The Basophils) system which ge nerated this result tra nsmitted reference range : <=1.0. The reference r kvng was not used to int erpret this result as normal/abnormal . [facility] LongviewZmqhehyLYXZNUAUIV3448-23-72 01:58:00 Test Item Value Reference Range Interpretation Comments Plt Morph (test code = Normal (08/17/2013 N Plt Morph) 19:58:00) [facility]viewBpupespNIEPGAIQOC8938-30-41 01:58:00 Test Item Value Reference Range Interpretation Comments Monocytes (test code = Monocytes) 8.4 2.0-12.0 N [facility]viewGgjzyukDHQJSSWWCQ4838-30-29 01:58:00 Test Item Value Reference Range Interpretation Comments Lymphocytes (test code = Lymphocytes) 17.7 20.0-40.0 L [facility]viewBdnizcmAGDBNIXSLQ2225-27-37 01:58:00 Test Item Value Reference Range Interpretation Comments Segs (test code = Segs) 72.9 45.0-75.0 N [facility]viewTqvvfhaSKCAMIXQWN4519-49-59 01:58:00 Test Item Value Reference Range Interpretation Comments RBC Morph (test code = Normal (08/17/2013 N RBC Morph) 19:58:00) [facility]viewRnwtvoiOKWBDDRJBT1706-19-58 01:58:00 Test Item Value Reference Range Interpretation Comments Eosinophils # (test code 0.1 See_Comment N [A utomated message] The = Eosinophils #) system whic h generated this result tra nsmitted reference range : <=0.5. The reference r kvng was not used to int erpret this result as normal/abnormal . [facility]viewVblslznNRMZWUPBWG5886-86-53 01:58:00 Test Item Value Reference Range Interpretation Comments Basophils # (test code 0.0 See_Comment N [Aut omated message] The = Basophils #) system which generated this result tra nsmitted reference range : <=0.2. The reference r kvng was not used to int erpret this result as normal/abnormal . [facility] TexasLebjivzQTONAYGCI1454-79-79 01:58:00 Test Item Value Reference Range Interpretation Comments AGAP (test code = AGAP) 14.7 10.0-20.0 N [facility] TexasJolvjkkJARMDODJE7487-95-05 01:58:00 Test Item Value Reference Range Interpretation Comments eGFR (test code = eGFR) 45 [facility] [place]XznscliPFSUZHHIX9569-40-33 01:58:00 Test Item Value Reference Range Interpretation Comments Glucose Lvl (test code = Glucose Lvl) 90 70-99 N [facility] TexasUsarfujFNCFUOILX9879-20-45 01:58:00 Test Item Value Reference Range Interpretation Comments Chloride Lvl (test code = Chloride Lvl) 105 95-109 N [facility] TexasDqvvysgYLNGTSQPB8604-25-22 01:58:00 Test Item Value Reference Range Interpretation Comments Potassium Lvl (test code = Potassium 3.7 3.5-5.1 N Lvl) [facility] TexasEzgzbkuZIJIZTKEC5380-43-83 01:58:00 Test Item Value Reference Range Interpretation Comments Sodium Lvl (test code = Sodium Lvl) 142 135-145 N [facility] TexasEgzirllPYWJNWZCE7434-41-04 01:58:00 Test Item Value Reference Range Interpretation Comments Creatinine Lvl (test code = Creatinine 1.2 0.5-1.4 N Lvl) [facility] [place]XdkfkwlPTTFAWISA9793-22-78 01:58:00 Test Item Value Reference Range Interpretation Comments BUN (test code = BUN) 12 7-22 N [facility] TexasDmaygguHKDWPJISB3276-02-79 01:58:00 Test Item Value Reference Range Interpretation Comments Calcium Lvl (test code = Calcium Lvl) 9.2 8.5-10.5 N [facility] TexasDltbzfdQUJWVATON4385-53-86 01:58:00 Test Item Value Reference Range Interpretation Comments CO2 (test code = CO2) 26 24-32 N [facility] TexasWhylicuBDYQXXQUC2515-78-48 01:58:00 Test Item Value Reference Range Interpretation Comments Etoh (%) (test code = Etoh (%)) <0.003 % N [facility] TexasGofoffdSISJBECGP4989-89-40 01:58:00 Test Item Value Reference Range Interpretation Comments Ethanol Lvl (test code = Ethanol <3.0 mg/dL N Lvl) [facility] TexasYxlvzadAKAAGPZLE5789-69-51 01:58:00 Test Item Value Reference Range Interpretation Comments Lactic Acid Lvl (test code = Lactic 2.9 0.5-2.2 H Acid Lvl) [facility]viewQlnhaucWZDMVZYSXM1331-45-18 01:58:00 Test Item Value Reference Range Interpretation Comments MPV (test code = MPV) 7.5 7.4-10.4 N [facility]viewAyqhbhyOIJHJUFBOV2812-64-64 01:58:00 Test Item Value Reference Range Interpretation Comments WBC X 10x3 (test code = WBC X 10x3) 11.5 3.7-10.4 H [facility]viewLpglyzhHMWWGGOLEY4691-29-09 01:58:00 Test Item Value Reference Range Interpretation Comments Hgb (test code = Hgb) 14.2 14.0-18.0 N [facility]viewNuefxnlGDWIUGVMEE2659-19-57 01:58:00 Test Item Value Reference Range Interpretation Comments RBC X 10x6 (test code = RBC X 10x6) 4.77 4.70-6.10 N [facility]viewTxvzwzrGOFNQFYJZV1880-88-96 01:58:00 Test Item Value Reference Range Interpretation Comments Hct (test code = Hct) 42.1 42.0-54.0 N [facility] LongviewLcgnqaiSWPVERESCQ6338-10-45 01:58:00 Test Item Value Reference Range Interpretation Comments MCV (test code = MCV) 88.2 80.0-94.0 N [facility]viewWuugqikJUDQWIHZAM2015-97-90 01:58:00 Test Item Value Reference Range Interpretation Comments MCH (test code = MCH) 29.7 pg 27.0-31.0 N [facility]viewUmhjyxxSPQPXWCWMX9249-35-75 01:58:00 Test Item Value Reference Range Interpretation Comments RDW (test code = RDW) 12.7 11.5-14.5 N [facility] LongviewMfgbdknBVBJRZBEPV2234-03-71 01:58:00 Test Item Value Reference Range Interpretation Comments MCHC (test code = MCHC) 33.7 32.0-36.0 N [facility]viewEsyaunzLQTYBGTITL3777-32-94 01:58:00 Test Item Value Reference Range Interpretation Comments Platelet (test code = Platelet) 282 133-450 N [facility] LongviewPwewcaoGCILYOLOSC2482-55-77 01:58:00 Test Item Value Reference Range Interpretation Comments R-time (test code = R-time) 0.7 min 0.4-0.7 N [facility]viewHwlpwuiMKUIXTLBMQ4670-96-00 01:58:00 Test Item Value Reference Range Interpretation Comments K-time (test code = K-time) 1.2 min 0.6-2.3 N [facility]viewQdbczxqFIQFECNLJI9640-70-85 01:58:00 Test Item Value Reference Range Interpretation Comments Angle (test code = Angle) 75 degrees 64-80 N [facility] LongviewFlieoaoKZPCRZDBIG8432-12-73 01:58:00 Test Item Value Reference Range Interpretation Comments Rapid TEG Sample Type Citrated Whole Blood (test code = Rapid TEG Sample Type) [facility] LongviewZvceeifMMVAKKNDMD0898-09-82 01:58:00 Test Item Value Reference Range Interpretation Comments ACT (TEG) (test code = ACT (TEG)) 113 s 86-118 N [facility]viewQpwycynXEODTFCTKL3112-88-57 01:58:00 Test Item Value Reference Range Interpretation Comments Split Point (test code = Split Point) 0.6 min [facility] LongviewPoarrxcTLHTEIZGLP0473-01-45 01:58:00 Test Item Value Reference Range Interpretation Comments Estimated % Lysis (test 1.2 See_Comment N [Au tomated message] The code = Estimated % system wh ich generated Lysis) this result tra nsmitted reference range : <=7.5. The reference r kvng was not used to int erpret this result as normal/abnormal . [facility] LongviewCldjpmsOGAOOWQOFH4022-76-81 01:58:00 Test Item Value Reference Range Interpretation Comments Max Amp (test code = Max Amp) 67 mm 52-71 N [facility]viewBhvvfnjOWOAYRGKBT3897-11-73 01:58:00 Test Item Value Reference Range Interpretation Comments G-value (test code = G-value) 9.9 5.0-11.6 N [facility]viewVovsotrKIAONMVOYP4812-07-83 01:58:00 Test Item Value Reference Range Interpretation Comments Monocytes # (test code 1.0 See_Comment H [Aut omated message] The = Monocytes #) system which generated this result tra nsmitted reference range : <=0.8. The reference r kvng was not used to int erpret this result as normal/abnormal . [facility]viewLvcdwilCPGRGWOXKV0733-88-28 01:58:00 Test Item Value Reference Range Interpretation Comments Eosinophils (test code = 0.6 See_Comment N [A utomated message] The Eosinophils) system which ge nerated this result tra nsmitted reference range : <=4.0. The reference r kvng was not used to int erpret this result as normal/abnormal . [facility]viewEsxualtZQRTUMRHDJ0169-72-90 01:58:00 Test Item Value Reference Range Interpretation Comments Lymphocytes # (test code = Lymphocytes 2.0 1.0-5.5 N #) [facility] LongviewYomiimeINKKMOPHKD4120-19-27 01:58:00 Test Item Value Reference Range Interpretation Comments Segs-Bands # (test code = Segs-Bands #) 8.4 1.5-8.1 H [facility]viewVyyrcfsRKYOEABYVP1275-52-93 01:58:00 Test Item Value Reference Range Interpretation Comments Basophils (test code = 0.4 See_Comment N [Aut omated message] The Basophils) system which ge nerated this result tra nsmitted reference range : <=1.0. The reference r kvng was not used to int erpret this result as normal/abnormal . [facility]viewKodlnjlBTXQJIHVBT3919-46-77 01:58:00 Test Item Value Reference Range Interpretation Comments Plt Morph (test code = Normal (08/17/2013 N Plt Morph) 19:58:00) [facility]viewBhklcqoJVWNMKOGBQ7228-69-13 01:58:00 Test Item Value Reference Range Interpretation Comments Monocytes (test code = Monocytes) 8.4 2.0-12.0 N [facility]viewHvmcccyRRACOJSFXL6161-21-73 01:58:00 Test Item Value Reference Range Interpretation Comments Lymphocytes (test code = Lymphocytes) 17.7 20.0-40.0 L [facility]viewUkozofhIIGIIVNNPP2922-16-96 01:58:00 Test Item Value Reference Range Interpretation Comments Segs (test code = Segs) 72.9 45.0-75.0 N [facility]viewHzdjfdyYUADVSKDQI5865-12-71 01:58:00 Test Item Value Reference Range Interpretation Comments RBC Morph (test code = Normal (08/17/2013 N RBC Morph) 19:58:00) [facility]viewSvxawjmNRJGKDFUXB0920-15-59 01:58:00 Test Item Value Reference Range Interpretation Comments Eosinophils # (test code 0.1 See_Comment N [A utomated message] The = Eosinophils #) system whic h generated this result tra nsmitted reference range : <=0.5. The reference r kvng was not used to int erpret this result as normal/abnormal . [facility] LongviewUfxorjeKOAKVTEFYE6366-13-07 01:58:00 Test Item Value Reference Range Interpretation Comments Basophils # (test code 0.0 See_Comment N [Aut omated message] The = Basophils #) system which generated this result tra nsmitted reference range : <=0.2. The reference r kvng was not used to int erpret this result as normal/abnormal . [facility] [place]EhspkxyJSIUPATUU2542-05-17 01:58:00 Test Item Value Reference Range Interpretation Comments AGAP (test code = AGAP) 14.7 10.0-20.0 N [facility] TexasTirnmrxYTVFAROOM1714-34-54 01:58:00 Test Item Value Reference Range Interpretation Comments eGFR (test code = eGFR) 45 [facility] TexasPhghuakGUJKQOIPL4868-26-54 01:58:00 Test Item Value Reference Range Interpretation Comments Glucose Lvl (test code = Glucose Lvl) 90 70-99 N [facility] TexasEfsonarZVFEBPVWA2490-43-35 01:58:00 Test Item Value Reference Range Interpretation Comments Chloride Lvl (test code = Chloride Lvl) 105 95-109 N [facility] TexasYnyqpqjTUHLVYSKK6617-55-42 01:58:00 Test Item Value Reference Range Interpretation Comments Potassium Lvl (test code = Potassium 3.7 3.5-5.1 N Lvl) [facility] TexasMtdsebyBXZIJHLZV0110-69-41 01:58:00 Test Item Value Reference Range Interpretation Comments Sodium Lvl (test code = Sodium Lvl) 142 135-145 N [facility] TexasFoqxssdWVGZMDJAO2135-50-25 01:58:00 Test Item Value Reference Range Interpretation Comments Creatinine Lvl (test code = Creatinine 1.2 0.5-1.4 N Lvl) [facility] TexasBbdpurpEPWEPIPYT0337-24-45 01:58:00 Test Item Value Reference Range Interpretation Comments BUN (test code = BUN) 12 7-22 N [facility] TexasKwsngkaBFMHQXPGQ0850-96-42 01:58:00 Test Item Value Reference Range Interpretation Comments Calcium Lvl (test code = Calcium Lvl) 9.2 8.5-10.5 N [facility] TexasLakvluaHJLRLIQJB2397-63-78 01:58:00 Test Item Value Reference Range Interpretation Comments CO2 (test code = CO2) 26 24-32 N [facility] TexasEijaxbwELXHNZQWE8486-00-37 01:58:00 Test Item Value Reference Range Interpretation Comments Etoh (%) (test code = Etoh (%)) <0.003 % N [facility] TexasRvhfecjCJZBKIMNF2666-74-72 01:58:00 Test Item Value Reference Range Interpretation Comments Ethanol Lvl (test code = Ethanol <3.0 mg/dL N Lvl) [facility] TexasJibmateMPVKYVHHM7306-07-37 01:58:00 Test Item Value Reference Range Interpretation Comments AGAP (test code = AGAP) 14.7 10.0-20.0 N [facility] TexasWnshtyaAYCWPQBIF1661-72-91 01:58:00 Test Item Value Reference Range Interpretation Comments Lactic Acid Lvl (test code = Lactic 2.9 0.5-2.2 H Acid Lvl) [facility] TexasYjighmeKODXWGMRG2221-77-72 01:58:00 Test Item Value Reference Range Interpretation Comments eGFR (test code = eGFR) 45 [facility]viewAqtihzhTFDBALINQQ1593-70-69 01:58:00 Test Item Value Reference Range Interpretation Comments MPV (test code = MPV) 7.5 7.4-10.4 N [facility] TexasCzqqhzuDARSUXTNM8429-15-02 01:58:00 Test Item Value Reference Range Interpretation Comments Glucose Lvl (test code = Glucose Lvl) 90 70-99 N [facility]viewXfkdwqkODBDANKJLU9284-15-45 01:58:00 Test Item Value Reference Range Interpretation Comments WBC X 10x3 (test code = WBC X 10x3) 11.5 3.7-10.4 H [facility] TexasFzawkfvOXAHRYNMM1865-67-87 01:58:00 Test Item Value Reference Range Interpretation Comments Chloride Lvl (test code = Chloride Lvl) 105 95-109 N [facility]viewBjtasjwRPXYKXVXNV0553-58-00 01:58:00 Test Item Value Reference Range Interpretation Comments Hgb (test code = Hgb) 14.2 14.0-18.0 N [facility] TexasHdcwczvYNPAJJYVI6894-75-75 01:58:00 Test Item Value Reference Range Interpretation Comments Potassium Lvl (test code = Potassium 3.7 3.5-5.1 N Lvl) [facility]viewLblsempFTIWRSBKOQ4242-57-32 01:58:00 Test Item Value Reference Range Interpretation Comments RBC X 10x6 (test code = RBC X 10x6) 4.77 4.70-6.10 N [facility] TexasAyurvhfHZUKCXYXT5709-60-81 01:58:00 Test Item Value Reference Range Interpretation Comments Sodium Lvl (test code = Sodium Lvl) 142 135-145 N [facility]viewQjcwzvbBXUNYODZUT1093-69-26 01:58:00 Test Item Value Reference Range Interpretation Comments Hct (test code = Hct) 42.1 42.0-54.0 N [facility] TexasJsetsaeFSOZHPOVV4340-35-94 01:58:00 Test Item Value Reference Range Interpretation Comments Creatinine Lvl (test code = Creatinine 1.2 0.5-1.4 N Lvl) [facility]viewCjsjusoZHXKKGVLPM1183-18-22 01:58:00 Test Item Value Reference Range Interpretation Comments MCV (test code = MCV) 88.2 80.0-94.0 N [facility] TexasBrcpgvuWLHQGGRFS8152-62-91 01:58:00 Test Item Value Reference Range Interpretation Comments BUN (test code = BUN) 12 7-22 N [facility] LongviewMuzswavGWZDWFKKVP2202-03-99 01:58:00 Test Item Value Reference Range Interpretation Comments MCH (test code = MCH) 29.7 pg 27.0-31.0 N [facility] TexasGqbuhphATPIJZZGC7280-52-25 01:58:00 Test Item Value Reference Range Interpretation Comments Calcium Lvl (test code = Calcium Lvl) 9.2 8.5-10.5 N [facility]viewQgjzlkgCZQJNHGFOO0372-39-73 01:58:00 Test Item Value Reference Range Interpretation Comments RDW (test code = RDW) 12.7 11.5-14.5 N [facility] TexasRsaavojGHPHYKXBR7702-91-43 01:58:00 Test Item Value Reference Range Interpretation Comments CO2 (test code = CO2) 26 24-32 N [facility] LongviewWeccarpPJBKYEMDWD7861-74-94 01:58:00 Test Item Value Reference Range Interpretation Comments MCHC (test code = MCHC) 33.7 32.0-36.0 N [facility] TexasXqvrttbRTBUNWGBK5581-89-12 01:58:00 Test Item Value Reference Range Interpretation Comments Etoh (%) (test code = Etoh (%)) <0.003 % N [facility] LongviewIurcvxzCAHNJVEWJW5429-29-14 01:58:00 Test Item Value Reference Range Interpretation Comments Platelet (test code = Platelet) 282 133-450 N [facility] TexasVstijwkJEPTOHUKQ1182-37-10 01:58:00 Test Item Value Reference Range Interpretation Comments Ethanol Lvl (test code = Ethanol <3.0 mg/dL N Lvl) [facility]viewYdnxuxqKTHWQYZLRZ0053-52-38 01:58:00 Test Item Value Reference Range Interpretation Comments R-time (test code = R-time) 0.7 min 0.4-0.7 N [facility] TexasMuduswhSJPVPXARX8173-23-32 01:58:00 Test Item Value Reference Range Interpretation Comments Lactic Acid Lvl (test code = Lactic 2.9 0.5-2.2 H Acid Lvl) [facility]viewSpabmzuPJUIBAOOJE3517-75-41 01:58:00 Test Item Value Reference Range Interpretation Comments K-time (test code = K-time) 1.2 min 0.6-2.3 N [facility]viewJigaftzJITDXSHFKF3787-83-27 01:58:00 Test Item Value Reference Range Interpretation Comments MPV (test code = MPV) 7.5 7.4-10.4 N [facility]viewFkcjcedHGKZIXOOES1369-37-93 01:58:00 Test Item Value Reference Range Interpretation Comments Angle (test code = Angle) 75 degrees 64-80 N [facility]viewEwyxssbDZGPRNQSCE4438-56-59 01:58:00 Test Item Value Reference Range Interpretation Comments WBC X 10x3 (test code = WBC X 10x3) 11.5 3.7-10.4 H [facility] [id number] 01:58:00 Test Item Value Reference Range Interpretation Comments Rapid TEG Sample Type Citrated Whole Blood (test code = Rapid TEG Sample Type) [facility]viewVbsfsorMJNIVJNSWV6206-05-19 01:58:00 Test Item Value Reference Range Interpretation Comments Hgb (test code = Hgb) 14.2 14.0-18.0 N [facility] LongviewGiyiwijBLASCYFSQT1870-17-44 01:58:00 Test Item Value Reference Range Interpretation Comments ACT (TEG) (test code = ACT (TEG)) 113 s 86-118 N [facility] Longvi[id number] 01:58:00 Test Item Value Reference Range Interpretation Comments RBC X 10x6 (test code = RBC X 10x6) 4.77 4.70-6.10 N [facility] [place]viewOsglgexLNTNZEQMYZ1933-93-76 01:58:00 Test Item Value Reference Range Interpretation Comments Split Point (test code = Split Point) 0.6 min [facility] LongviewTabpoxuWRBJXQRNKW3388-21-94 01:58:00 Test Item Value Reference Range Interpretation Comments Hct (test code = Hct) 42.1 42.0-54.0 N [facility] LongviewGcpkqvnGSKPMTMKLJ6705-19-50 01:58:00 Test Item Value Reference Range Interpretation Comments Estimated % Lysis (test 1.2 See_Comment N [Au tomated message] The code = Estimated % system wh ich generated Lysis) this result tra nsmitted reference range : <=7.5. The reference r kvng was not used to int erpret this result as normal/abnormal . [facility] LongviewPaxuerbXFWRRDPLZL3167-59-51 01:58:00 Test Item Value Reference Range Interpretation Comments MCV (test code = MCV) 88.2 80.0-94.0 N [facility] LongviewUanzrcfFCTOAPBYUM9902-92-26 01:58:00 Test Item Value Reference Range Interpretation Comments Max Amp (test code = Max Amp) 67 mm 52-71 N [facility] LongviewQiadogiKZWUCBBNNK6063-51-27 01:58:00 Test Item Value Reference Range Interpretation Comments G-value (test code = G-value) 9.9 5.0-11.6 N [facility] LongviewDeypbzuNOETQLBWHP0705-85-53 01:58:00 Test Item Value Reference Range Interpretation Comments MCH (test code = MCH) 29.7 pg 27.0-31.0 N [facility] LongviewVtqwqurYQUNFHKWCS0176-33-08 01:58:00 Test Item Value Reference Range Interpretation Comments RDW (test code = RDW) 12.7 11.5-14.5 N [facility] LongviewFsyqrooESLRIUHMKW8362-00-98 01:58:00 Test Item Value Reference Range Interpretation Comments Monocytes # (test code 1.0 See_Comment H [Aut omated message] The = Monocytes #) system which generated this result tra nsmitted reference range : <=0.8. The reference r kvng was not used to int erpret this result as normal/abnormal . [facility] LongviewUoiskasPZASXVNZIG2968-65-36 01:58:00 Test Item Value Reference Range Interpretation Comments MCHC (test code = MCHC) 33.7 32.0-36.0 N [facility] LongviewCdhftsbZQKWJOSSWB1681-04-46 01:58:00 Test Item Value Reference Range Interpretation Comments Eosinophils (test code = 0.6 See_Comment N [A utomated message] The Eosinophils) system which ge nerated this result tra nsmitted reference range : <=4.0. The reference r kvng was not used to int erpret this result as normal/abnormal . [facility] LongviewIzlhcxqJWRPIDZDED0882-67-76 01:58:00 Test Item Value Reference Range Interpretation Comments Lymphocytes # (test code = Lymphocytes 2.0 1.0-5.5 N #) [facility] LongviewIweytiwLBLSYUWRTY4918-66-98 01:58:00 Test Item Value Reference Range Interpretation Comments Platelet (test code = Platelet) 282 133-450 N [facility] Longvi[id number] 01:58:00 Test Item Value Reference Range Interpretation Comments Segs-Bands # (test code = Segs-Bands #) 8.4 1.5-8.1 H [facility] LongviewPmurcisGHJCLKDPDL7934-77-23 01:58:00 Test Item Value Reference Range Interpretation Comments R-time (test code = R-time) 0.7 min 0.4-0.7 N [facility] LongviewNcqskusQYQWRPPNXQ8466-28-70 01:58:00 Test Item Value Reference Range Interpretation Comments Basophils (test code = 0.4 See_Comment N [Aut omated message] The Basophils) system which ge nerated this result tra nsmitted reference range : <=1.0. The reference r kvng was not used to int erpret this result as normal/abnormal . [facility] LongviewNnpjkdjQYCVLOMIVF5003-19-23 01:58:00 Test Item Value Reference Range Interpretation Comments K-time (test code = K-time) 1.2 min 0.6-2.3 N [facility] LongviewNzjqfdrCNIFUXACBB5680-15-26 01:58:00 Test Item Value Reference Range Interpretation Comments Plt Morph (test code = Normal (08/17/2013 N Plt Morph) 19:58:00) [facility] LongviewAunvzxsNIFBJJVHZD5292-18-40 01:58:00 Test Item Value Reference Range Interpretation Comments Angle (test code = Angle) 75 degrees 64-80 N [facility] LongviewPorgoxlUVUMJFKLQT5685-40-76 01:58:00 Test Item Value Reference Range Interpretation Comments Monocytes (test code = Monocytes) 8.4 2.0-12.0 N [facility] LongviewLavaajgQUVWMRNRDR6511-10-17 01:58:00 Test Item Value Reference Range Interpretation Comments Rapid TEG Sample Type Citrated Whole Blood (test code = Rapid TEG Sample Type) [facility] LongviewMdjdntqEJQQHEELTJ7298-63-19 01:58:00 Test Item Value Reference Range Interpretation Comments Lymphocytes (test code = Lymphocytes) 17.7 20.0-40.0 L [facility] [place]viewXnnxulgEWZHPKTLPV6417-22-45 01:58:00 Test Item Value Reference Range Interpretation Comments ACT (TEG) (test code = ACT (TEG)) 113 s 86-118 N [facility] LongviewHhumdekVGXRIDOFFP8560-56-63 01:58:00 Test Item Value Reference Range Interpretation Comments Segs (test code = Segs) 72.9 45.0-75.0 N [facility] LongviewVsyameoFWQQVZKDRF5759-82-89 01:58:00 Test Item Value Reference Range Interpretation Comments Split Point (test code = Split Point) 0.6 min [facility] LongviewUupaplqHEBHUTGUJO1814-82-35 01:58:00 Test Item Value Reference Range Interpretation Comments RBC Morph (test code = Normal (08/17/2013 N RBC Morph) 19:58:00) [facility] LongviewKtvptcnFHLLLGCCCA3798-81-81 01:58:00 Test Item Value Reference Range Interpretation Comments Estimated % Lysis (test 1.2 See_Comment N [Au tomated message] The code = Estimated % system wh ich generated Lysis) this result tra nsmitted reference range : <=7.5. The reference r kvng was not used to int erpret this result as normal/abnormal . [facility] LongviewSpggkolYBKSRQNKEL4205-44-57 01:58:00 Test Item Value Reference Range Interpretation Comments Eosinophils # (test code 0.1 See_Comment N [A utomated message] The = Eosinophils #) system whic h generated this result tra nsmitted reference range : <=0.5. The reference r kvng was not used to int erpret this result as normal/abnormal . [facility] LongviewZdmwkakNNOJMEEEVZ2761-22-71 01:58:00 Test Item Value Reference Range Interpretation Comments Max Amp (test code = Max Amp) 67 mm 52-71 N [facility] LongviewUqfetpaOTIDOZFYKE3078-75-38 01:58:00 Test Item Value Reference Range Interpretation Comments Basophils # (test code 0.0 See_Comment N [Aut omated message] The = Basophils #) system which generated this result tra nsmitted reference range : <=0.2. The reference r kvng was not used to int erpret this result as normal/abnormal . [facility] LongviewNssbkxfMIJSXJQBWM4799-78-29 01:58:00 Test Item Value Reference Range Interpretation Comments G-value (test code = G-value) 9.9 5.0-11.6 N [facility] LongviewQdibeijWZBEOGYNVG6185-18-21 01:58:00 Test Item Value Reference Range Interpretation Comments Monocytes # (test code 1.0 See_Comment H [Aut omated message] The = Monocytes #) system which generated this result tra nsmitted reference range : <=0.8. The reference r kvng was not used to int erpret this result as normal/abnormal . [facility] LongviewYmkpamrYEUPTPJRYX7486-94-58 01:58:00 Test Item Value Reference Range Interpretation Comments Eosinophils (test code = 0.6 See_Comment N [A utomated message] The Eosinophils) system which ge nerated this result tra nsmitted reference range : <=4.0. The reference r kvng was not used to int erpret this result as normal/abnormal . [facility] LongviewEkoypahLXZJQSPNVF5311-69-91 01:58:00 Test Item Value Reference Range Interpretation Comments Lymphocytes # (test code = Lymphocytes 2.0 1.0-5.5 N #) [facility] LongviewDixrcqeVJTUQUKHIP4565-69-92 01:58:00 Test Item Value Reference Range Interpretation Comments Segs-Bands # (test code = Segs-Bands #) 8.4 1.5-8.1 H [facility] LongviewDupvbbbSGABUODQWB3093-40-66 01:58:00 Test Item Value Reference Range Interpretation Comments Basophils (test code = 0.4 See_Comment N [Aut omated message] The Basophils) system which ge nerated this result tra nsmitted reference range : <=1.0. The reference r kvng was not used to int erpret this result as normal/abnormal . [facility] LongviewYommjvzFOODUXUMGQ9985-92-86 01:58:00 Test Item Value Reference Range Interpretation Comments Plt Morph (test code = Normal (08/17/2013 N Plt Morph) 19:58:00) [facility] LongviewLzxwhjvKDIKVGGBIV4044-94-83 01:58:00 Test Item Value Reference Range Interpretation Comments Monocytes (test code = Monocytes) 8.4 2.0-12.0 N [facility] LongviewKebtkfdZUYCFZQEZZ5838-83-73 01:58:00 Test Item Value Reference Range Interpretation Comments Lymphocytes (test code = Lymphocytes) 17.7 20.0-40.0 L [facility] LongviewPchknnhMLVIIAWBQZ3545-74-52 01:58:00 Test Item Value Reference Range Interpretation Comments Segs (test code = Segs) 72.9 45.0-75.0 N [facility] LongviewDyiqnzwWLOOILGNXN6554-71-53 01:58:00 Test Item Value Reference Range Interpretation Comments RBC Morph (test code = Normal (08/17/2013 N RBC Morph) 19:58:00) [facility] LongviewJbjiewyRVIFYIZTWK4576-63-43 01:58:00 Test Item Value Reference Range Interpretation Comments Eosinophils # (test code 0.1 See_Comment N [A utomated message] The = Eosinophils #) system wh h generated this result tra nsmitted reference range : <=0.5. The reference r kvng was not used to int erpret this result as normal/abnormal . [facility] Longvi[id number] 01:58:00 Test Item Value Reference Range Interpretation Comments Basophils # (test code 0.0 See_Comment N [Aut omated message] The = Basophils #) system which generated this result tra nsmitted reference range : <=0.2. The reference r kvng was not used to int erpret this result as normal/abnormal . [facility]
--- NOTE | 2022-08-21 18:22 | RAD REPORT ---
EXAM DESCRIPTION: RAD - Chest Single View - 08/21/2022 6:10 pm CLINICAL HISTORY: DYSPNEA COMPARISON: Chest Single View dated 09/17/2021; Chest Pa And Lat (2 Views) dated 10/21/2017; CHEST PA AND LAT 2 VIEW dated 09/30/2012; CHEST PA AND LAT 2 VIEW dated 02/14/2010CHEST SINGLE VIEW dated 014; CHEST SINGLE VIEW dated 06/13/2012; CHEST SINGLE VIEW dated 01/20/2010; CHEST SINGLE VIEW dated FINDINGS: Lines: None. Lungs: No evidence of edema or pneumonia. Pleural: No significant pleural effusions or pneumothorax. Cardiac: The heart size is within normal limits. Mediastinum: Within normal limits. Bones: No acute fractures. Fixation rods in the spine. Other: None IMPRESSION: No acute cardiopulmonary disease.
[2022-08-21 19:16] LABS: Absolute Lymphocytes (CBC) 3.3 K/uL (0.7-4.9); Hematocrit 24.9 % (39.6-49.0); Lymphocytes % 40.6 % (15.3-44.8); MCV 76.4 fL (80-100); MPV 7.3 fL (7.6-11.3); RBC Red Blood Cell Count 3.26 M/uL (4.33-5.43)
[2022-08-21 19:26] LABS: Protime INR 0.99
[2022-08-21 19:35] LABS: Albumin 3.1 g/dL (3.4-5.0); Bilirubin Direct 0.2 mg/dL (0-0.2); Bilirubin Total 0.5 mg/dL (0.2-1.0); Magnesium 2.3 mg/dL (1.8-2.4); Potassium 3.6 mmol/L (3.5-5.1); Protein, Total 6.7 g/dL (6.4-8.2); Troponin High Sensitivity 24.6 pg/mL (<58.9)
[2022-08-21] MEDS ORDERED: DIPHENHYDRAMINE 50 MG/ML VIAL ONE (19:52)
[2022-08-21] MEDS ORDERED: FUROSEMIDE 40 MG/4 ML VIAL ONE (20:09)
--- NOTE | 2022-08-21 20:50 | RAD REPORT ---
EXAM DESCRIPTION: CT - Chest For Pe Angio - 08/21/2022 8:39 pm CLINICAL HISTORY: r/o PE COMPARISON: No comparisons TECHNIQUE: Dynamically enhanced axial 3 mm thick images of the chest were obtained during administra tion of <100> mL Isovue 370 IV contrast. Coronal and oblique reconstruction images were generated and reviewed. Exam utilizes a protocol for optimal evaluation of pulmonary arterial tree. Maximum intensity projections 3D imaging was utilized All CT scans are performed using dose optimization technique as appropriate and may include automated exposure control or mA/KV adjustment according to patient size. FINDINGS: Chest Wall: No suspicious thyroid nodules or pathologic lymphadenopathy. Lungs: Minimal right perihilar ground-glass opacities. Pleura: Small bilateral pleural effusions. Mediastinum/ole: No pathologic lymphadenopathy. Moderate hiatal hernia. Pulmonary arteries/Aorta: No filling defect identified. No aortic aneurysm. Heart: Small pericardial effusion Normal heart size. Upper abdomen: No acute abnormality. Bones: No acute abnormality. Fusion hardware in the spine. IMPRESSION: Negative for pulmonary embolism. Small bilateral pleural effusions and mild right perihi lar ground-glass opacities are nonspecific but could reflect mild edema.
--- NOTE | 2022-08-21 21:18 | ER ---
Nurse's Notes [facility] Name: Orlando Sanchez Age: 27 yrs Sex: Male : 1995 Arrival Date: 08/21/2022 Time: 17:38 Bed 20 Private MD: Diagnosis: Pleural Effusion;Shortness of breath;CHF Exacerbation Presentation: 08/21 17:50 Chief complaint: Patient states: Swollen all over and SOB with exertion and laying ll1 flat. Released yesterday from [facility] for resp. and kidney failure, sepsis, UTI, pneumonia, never fully got better from that stay. Coronavirus screen: Vaccine status: Patient reports receiving the 2nd dose of the covid vaccine. Client denies travel out of the [place] in the last 14 days. At this time, the client does not indicate any symptoms associated with coronavirus-19. Ebola Screen: Patient denies travel to an Ebola-affected area in the 21 days before illness onset. Initial Sepsis Screen: Does the patient meet any 2 criteria? No. Patient's initial sepsis screen is negative. Does the patient have a suspected source of infection? No. Patient's initial sepsis screen is negative. Risk Assessment: Do you want to hurt yourself or someone else? Patient reports no desire to harm self or others. Onset of symptoms is unknown. 17:50 Method Of Arrival: Ambulatory ll1 17:50 Acuity: SURJIT 3 ll1 Historical: - Allergies: 17:53 PENICILLINS; ll1 17:53 Vancomycin; ll1 17:53 Omnicef; ll1 17:53 Naproxen; ll1 17:53 Latex, Natural Rubber; ll1 - PMHx: 17:53 GERD; Headaches; Hernia; Diabetes mellitus; ll1 - PSHx: 17:53 back SX x 2 heart caths; ll1 - Immunization history:: Client reports receiving the 2nd dose of the Covid vaccine. - Social history:: Smoking status: Reported history of juuling and/or vaping. Screenin:12 Abuse screen: Denies threats or abuse. Denies injuries from another. Nutritional kc6 screening: No deficits noted. Tuberculosis screening: No symptoms or risk factors identified. Fall Risk No fall in past 12 months (0 pts). No secondary diagnosis (0 pts). IV access (20 points). Ambulatory Aid- None/Bed Rest/Nurse Assist (0 pts). Gait- Normal/Bed Rest/Wheelchair (0 pts) Mental Status- Oriented to own ability (0 pts). Total Marie Fall Scale indicates No Risk (0-24 pts). Assessment: 18:15 General: Appears in no apparent distress. comfortable, Behavior is calm, cooperative, kc6 appropriate for age. Pain: Complains of pain in generalized Pain does not radiate. Pain currently is 6 out of 10 on a pain scale. Quality of pain is described as aching, Pain began gradually, Is continuous, Alleviated by nothing. Aggravated by increased activity. Neuro: Mcclure Agitation-Sedation Scale (RASS): 0 - Alert and Calm Level of Consciousness is awake, alert, obeys commands, Oriented to person, place, time, situation, Appropriate for age. Cardiovascular: Heart tones S1 S2 present Capillary refill < 3 seconds Rhythm is sinus rhythm. Cardiovascular: Cardiovascular: Pulses are all present. are 3+ in right posterior tibial artery, right dorsalis pedis artery, left posterior tibial artery and left dorsalis pedis artery Edema is 3+ to left midcalf, left ankle, left foot, left toes, right midcalf, right ankle, right foot and right toes pitting to left midcalf, left ankle, left foot, left toes, right midcalf, right ankle, right foot and right toes. Respiratory: Reports shortness of breath on exertion cough that is non-productive, dry, Airway is patent Trachea midline Respiratory effort is even, unlabored, Respiratory pattern is regular, symmetrical, Breath sounds are clear bilaterally. Respiratory: GI: No signs and/or symptoms were reported involving the gastrointestinal system. : No signs and/or symptoms were reported regarding the genitourinary system. EENT: No signs and/or symptoms were reported regarding the EENT system. Derm: No signs and/or symptoms reported regarding the dermatologic system. Skin is intact, Skin is pink, warm \T\ dry. Derm: Musculoskeletal: No signs and/or symptoms reported regarding the musculoskeletal system. Circulation, motion, and sensation intact. Capillary refill < 3 seconds, Range of motion: intact in all extremities. 19:54 Reassessment: Pt c/o itchiness to IV site, ERP notified. ll3 20:58 Reassessment: Patient and/or family updated on plan of care and expected duration. Pain ll3 level reassessed. Patient is alert, oriented x 3, equal unlabored respirations, skin warm/dry/pink. 22:02 Reassessment: No changes from previously documented assessment. Patient and/or family ll3 updated on plan of care and expected duration. Pain level reassessed. Patient is alert, oriented x 3, equal unlabored respirations, skin warm/dry/pink. Vital Signs: 17:50 BP 136 / 77; Pulse 82; Resp 20; Temp 98.3; Pulse Ox 100% ; Weight 133.81 kg; Height 5 ll1 ft. 8 in. (172.72 cm); Pain 5/10; 18:14 BP 128 / 84; Pulse 63; Resp 16 S; Pulse Ox 98% on R/A; kc6 19:39 BP 129 / 78; Pulse 58; Resp 22; Pulse Ox 99% on R/A; ll3 20:58 BP 139 / 81; Pulse 60; Resp 16; Pulse Ox 100% on R/A; ll3 22:02 BP 133 / 77; Pulse 57; Resp 21; Pulse Ox 100% on R/A; ll3 08/22 00:12 BP 106 / 68; Pulse 51; Resp 16; Pulse Ox 99% on R/A; ll3 08/21 17:50 Body Mass Index 44.85 (133.81 kg, 172.72 cm) ll1 ED Course: 08/21 17:38 Patient arrived in ED. rg4 17:44 [facility]qu[facility] Patterson [facility] 17:44 Rogelio London MD is Attending Physician. [facility] 17:48 Fannie Osman, RN is Primary Nurse. kc6 17:53 Triage completed. ll1 17:54 Arm band placed on Patient placed in an exam room, on a stretcher. ll1 18:11 Basic Metabolic Panel Sent. kc6 18:11 CBC with Diff Sent. kc6 18:11 D-Dimer Sent. kc6 18:11 LFT's Sent. kc6 18:11 Magnesium Sent. kc6 18:11 NT PRO-BNP Sent. kc6 18:11 PT-INR Sent. kc6 18:11 Troponin HS Sent. kc6 18:11 Inserted saline lock: 20 gauge in right antecubital area, using aseptic technique. kc6 Blood collected. 18:12 XRAY Chest (1 view) In Process Unspecified. EDMS 19:40 Patient has correct armband on for positive identification. Placed in gown. Bed in low ll3 position. Call light in reach. Side rails up X 1. Adult w/ patient. Client placed on continuous cardiac and pulse oximetry monitoring. NIBP monitoring applied. 20:40 Chest For Pe Angio In Process Unspecified. EDMS 21:16 Kojo Lobo MD is Hospitalizing Provider. [facility] 08/22 01:34 No provider procedures requiring assistance completed. Patient admitted, IV remains in ll3 place. Administered Medications: 08/21 20:00 Drug: Benadryl (diphenhydrAMINE) 12.5 mg Route: IVP; Site: right antecubital; ll3 20:29 Follow up: Response: No adverse reaction ll3 20:29 Drug: Lasix (furosemide) 40 mg Route: IVP; Site: right antecubital; ll3 21:20 Follow up: Response: No adverse reaction ll3 Medication: 08/22 01:33 VIS not applicable for this client. ll3 Outcome: 08/21 21:17 Decision to Hospitalize by Provider. [facility] 08/22 02:46 Admitted to Med/surg accompanied by nurse, via wheelchair, room 221, with chart, Report ll3 called to GENEISS Goodman Condition: stable Instructed on the need for admit, Demonstrated understanding of instructions. 02:47 Patient left the ED. ll3 Signatures: Dispatcher [employer] EDBrenda Manzano rg4 Crystal Hale, RN RN ll1 Agustin Dawson, RN RN ll3 Jacqueline Patterson FNP CLINICAL NURSE 7 Fannie Osman, RN RN kc6
--- NOTE | 2022-08-21 21:18 | EDPHYS ---
Physician Documentation [facility] Name: Orlando Sanchez Age: 27 yrs Sex: Male : 1995 Arrival Date: 08/21/2022 Time: 17:38 Bed 20 Private MD: ED Physician Rogelio London HPI: 08/21 17:55 This 27 yrs old Male presents to ER via Ambulatory with complaints of Shortness Of jh7 Breath, Swelling All Over. 17:55 The patient has shortness of breath at rest. Onset: The symptoms/episode began/occurred jh7 acutely. Associated signs and symptoms: Pertinent positives: SOB. Patient reports shortness of breath and bilateral leg swelling starting today. Reports that he was discharged yesterday from [facility] with respiratory failure, sepsis, UTI, and pneumonia. Reports that he went into V. tach multiple times, was on dialysis for 4 days, and a sodium bicarb drip. Reports that he has decreased urine output and is gained 20 pounds over the past 2 weeks.. Historical: - Allergies: 17:53 PENICILLINS; ll1 17:53 Vancomycin; ll1 17:53 Omnicef; ll1 17:53 Naproxen; ll1 17:53 Latex, Natural Rubber; ll1 - PMHx: 17:53 GERD; Headaches; Hernia; Diabetes mellitus; ll1 - PSHx: 17:53 back SX x 2 heart caths; ll1 - Immunization history:: Client reports receiving the 2nd dose of the Covid vaccine. - Social history:: Smoking status: Reported history of juuling and/or vaping. ROS: 17:55 Constitutional: Negative for fever, chills, and weight loss, Eyes: Negative for injury, jh7 pain, redness, and discharge, ENT: Negative for injury, pain, and discharge, Abdomen/GI: Negative for abdominal pain, nausea, vomiting, diarrhea, and constipation, Back: Negative for injury and pain, MS/Extremity: Negative for injury and deformity, Skin: Negative for injury, rash, and discoloration, Neuro: Negative for headache, weakness, numbness, tingling, and seizure. 17:55 Cardiovascular: Positive for edema, orthopnea, Negative for chest pain. 17:55 Respiratory: Positive for orthopnea, shortness of breath, at rest. Negative for cough, wheezing. 17:55 All other systems are negative. Exam: 17:55 Constitutional: This is a well developed, well nourished patient who is awake, alert, jh7 and in no acute distress. Head/Face: Normocephalic, atraumatic. Eyes: Pupils equal round and reactive to light, extra-ocular motions intact. Lids and lashes normal. Conjunctiva and sclera are non-icteric and not injected. Cornea within normal limits. Periorbital areas with no swelling, redness, or edema. Respiratory: Lungs have equal breath sounds bilaterally, clear to auscultation and percussion. No rales, rhonchi or wheezes noted. No increased work of breathing, no retractions or nasal flaring. Abdomen/GI: Soft, non-tender, with normal bowel sounds. No distension or tympany. No guarding or rebound. No evidence of tenderness throughout. Back: No spinal tenderness. No costovertebral tenderness. Full range of motion. Skin: Warm, dry with normal turgor. Normal color with no rashes, no lesions, and no evidence of cellulitis. MS/ Extremity: Pulses equal, no cyanosis. Neurovascular intact. Full, normal range of motion. Neuro: Awake and alert, GCS 15, oriented to person, place, time, and situation. Motor strength 5/5 in all extremities. Sensory grossly intact. Normal gait. 17:55 Cardiovascular: Rate: normal, Rhythm: regular, Pulses: Pulses are 3+ in . Heart sounds: normal, Edema: 3+ edema to level of left midcalf, left ankle, left foot, right midcalf, right ankle and right foot. 18:25 ECG was reviewed by the Attending Physician. [facility] Vital Signs: 17:50 BP 136 / 77; Pulse 82; Resp 20; Temp 98.3; Pulse Ox 100% ; Weight 133.81 kg; Height 5 ll1 ft. 8 in. (172.72 cm); Pain 5/10; 18:14 BP 128 / 84; Pulse 63; Resp 16 S; Pulse Ox 98% on R/A; kc6 19:39 BP 129 / 78; Pulse 58; Resp 22; Pulse Ox 99% on R/A; ll3 20:58 BP 139 / 81; Pulse 60; Resp 16; Pulse Ox 100% on R/A; ll3 22:02 BP 133 / 77; Pulse 57; Resp 21; Pulse Ox 100% on R/A; 3 08/22 00:12 BP 106 / 68; Pulse 51; Resp 16; Pulse Ox 99% on R/A; 3 08/21 17:50 Body Mass Index 44.85 (133.81 kg, 172.72 cm) 1 [facility]: 08/21 17:44 Patient medically screened. [facility] 21:15 Differential diagnosis: CHF exacerbation, pneumonia, Pneumothorax pulmonary edema, [facility] Pulmonary Embolism. Data reviewed: vital signs, nurses notes, lab test result(s), EKG, radiologic studies, CT scan, plain films. Data interpreted: Pulse oximetry: is 100 %. Interpretation: normal. Counseling: I had a detailed discussion with the patient and/or guardian regarding: the historical points, exam findings, and any diagnostic results supporting the discharge/admit diagnosis, the need for further work-up and treatment in the hospital. 08/21 17:54 Order name: Basic Metabolic Panel; Complete Time: 19:[address] [facility] 08/21 17:54 Order name: CBC with Diff; Complete Time: 19:[address] [facility] 08/21 17:54 Order name: D-Dimer; Complete Time: 19:[address] [facility] 08/21 17:54 Order name: LFT's; Complete Time: 19:[address] [facility] 08/21 17:54 Order name: Magnesium; Complete Time: 19:[address] [facility] 08/21 17:54 Order name: NT PRO-BNP; Complete Time: 19:[address] [facility] 08/21 17:54 Order name: PT-INR; Complete Time: 19:[address] [facility] 08/21 17:54 Order name: Troponin HS; Complete Time: 19:[address] [facility] 08/21 21:17 Order name: SARS RAPID; Complete Time: 21:57 [facility] 08/22 01:06 Order name: Urine Drug Screen 4 08/22 01:06 Order name: UA sb4 08/22 01:28 Order name: Urinalysis; Complete Time: 01:36 [facility] 08/22 01:28 Order name: Urine Dipstick-Ancillary; Complete Time: 01:36 [facility] 08/22 01:39 Order name: Urine Drug Screen [facility] 08/21 17:54 Order name: XRAY Chest (1 view); Complete Time: 18:[address] [facility] 08/21 17:54 Order name: EKG; Complete Time: 17:[address] [facility] 08/21 17:54 Order name: Cardiac monitoring; Complete Time: 18:[address] [facility] 08/21 17:54 Order name: EKG - Nurse/Tech; Complete Time: 18:[address] [facility] 08/21 17:54 Order name: IV Saline Lock; Complete Time: 18:[address] [facility] 08/21 17:54 Order name: Labs collected and sent; Complete Time: 18:[address] [facility] 08/21 17:54 Order name: O2 Per Protocol; Complete Time: 18:[address] [facility] 08/21 17:54 Order name: O2 Sat Monitoring; Complete Time: 18:[address] [facility] 08/21 20:24 Order name: Chest For Pe Angio; Complete Time: 21:01 [facility] 08/22 01:06 Order name: Urine Dipstick-Ancillary (obtain specimen); Complete Time: 01:24 sb4 EC:25 Rate is 66 beats/min. Rhythm is regular. QRS [place] is Normal. WA interval is normal at [facility] 124 msec. QRS interval is normal at 88 msec. QT interval is normal at 396 msec. No Q waves. T waves are Normal. No ST changes noted. Clinical impression: Normal ECG. Administered Medications: 20:00 Drug: Benadryl (diphenhydrAMINE) 12.5 mg Route: IVP; Site: right antecubital; ll3 20:29 Follow up: Response: No adverse reaction ll3 20:29 Drug: Lasix (furosemide) 40 mg Route: IVP; Site: right antecubital; ll3 21:20 Follow up: Response: No adverse reaction 3 Disposition Summary: 08/21/22 21:17 Hospitalization Ordered Hospitalization Status: Inpatient Admission [facility] Provider: Kojo Lobo [facility] Location: Telemetry/MedSurg (Inpatient) [facility] Condition: Stable [facility] Problem: new [facility] Symptoms: have worsened [facility] Bed/Room Type: Standard [facility] Room Assignment: 221(08/22/22 01:47) eb1 Diagnosis - Pleural Effusion [facility] - Shortness of breath [facility] - CHF Exacerbation [facility] Forms: - Medication Reconciliation Form [facility] - SBAR form [facility] Addendum: 08/24/2022 20:18 Co-signature as Attending Physician, Rogelio London MD I agree with the assessment and r t plan of care. Signatures: Dispatcher [employer] EDDE Nina Em RN RN eb1 Crystal Hale RN RN ll1 Agustin Dawson RN RN ll3 Jacqueline Patterson, [employer] 7 Mary Knight, PAJosseline PAJosseline sb4 Rogelio London MD MD rt Corrections: (The following items were deleted from the chart) 08/21 20:24 19:50 Chest Angio+CT.RAD.BRZ ordered. [facility] 08/22 01:47 08/21 21:17 theresa cochran
[2022-08-21 21:52] LABS: SARS-CoV-2 Antigen Rapid Res Negative (Negative)
[2022-08-22] MEDS ORDERED: ALBUTEROL 2.5 MG/3 ML NEB SOL NEB PRN ×2 (00:22→10:00)
[2022-08-22] MEDS ORDERED: ACETAMINOPHEN 325 MG TABLET PO PRN (00:22)
[2022-08-22] MEDS ORDERED: ONDANSETRON 4 MG/2 ML VIAL IV PRN (00:22)
--- NOTE | 2022-08-22 00:48 | P.HP ---
Certification for Inpatient Patient admitted to: Inpatient With expected LOS: <2 Midnights Patient will require the following post-hospital care: None Practitioner: I am a practitioner with admitting privileges, knowledge of patient current condition, hospital course, and medical plan of care. Services: Services provided to patient in accordance with Admission requirements found in Title 42 Section 412.3 of the Code of Federal Regulations Patient History Date of Service: 08/22/22 Reason for admission: Acute CHF History of Present Illness: Patient is a 27-year-old male with past medical history significant of Prinzmetal angina, noninsulin-dependent type 2 diabetes, hypertension, and obesity who presented to the ED with complaints of leg swelling shortness of breath. Patient reports that he was recently discharged from [facility] after a 2-week stay. He states that he was admitted for septic shock secondary to pneumonia and UTI which eventually put him into renal failure and he required vasopressors, CRRT, and BiPAP. He states that he was not given much information regarding follow-up on dispo. He went to [facility] today where he was advised to come to the ED for further evaluation. 2+ pitting edema noted to bilateral feet and shins. Mildly labored breathing but no hypoxia. Labs are significant for hemoglobin 8.4, BNP 1900, D-dimer 2200. Chest CT "negative for pulmonary embolism. Small bilateral pleural effusions and mild right perihilar ground-glass opacities are nonspecific but could reflect mild edema." He was given 40 mg IV Lasix in the ED with improvement in edema. Patient is admitted for further management. Allergies naproxen Allergy (Mild, Verified 08/22/22 03:40) Rash cefdinir [From Omnicef] Allergy (Verified 08/22/22 03:07) Nausea/Vomiting latex Allergy (Verified 08/22/22 03:07) Hives Penicillins Allergy (Verified 08/22/22 03:07) Rash vancomycin Allergy (Verified 08/22/22 03:07) red man syndrome Home Medications: Aripiprazole [Abilify] 10 mg PO BEDTIME 08/22/22 Atogepant [Qulipta] 10 mg PO DAILY 08/22/22 Buspirone HCl [Buspar] 5 mg PO BID 08/22/22 Candesartan Cilexetil 4 mg PO BEDTIME 08/22/22 Diltiazem HCl [Diltiazem ER] 240 mg PO BEDTIME 08/22/22 Fluoxetine HCl [Prozac] 40 mg PO DAILY 08/22/22 Fluvastatin Sodium [Lescol] 20 mg PO BEDTIME 08/22/22 Furosemide [Lasix] 20 mg PO DAILY 08/22/22 Isosorbide Mononitrate [Isosorbide Mononitrate ER] 60 mg PO DAILY 08/22/22 Lamictal Er 50 mg PO DAILY 08/22/22 Metoprolol Succinate [Toprol Xl] 25 mg PO BEDTIME 08/22/22 Pantoprazole [Protonix Tab] 40 mg PO BID 08/22/22 Pregabalin [Lyrica] 100 mg PO BID 08/22/22 Ranolazine [Ranexa] 1,000 mg PO BID 08/22/22 Remeron 1 tab PO BEDTIME 08/22/22 Rivaroxaban [Xarelto] 2.5 mg PO DAILY 08/22/22 levoFLOXacin [Levaquin] 750 mg PO DAILY 08/22/22 - Past Medical/Surgical History Diabetic: Yes -: Type 2 diabetes, [id number] -: Hypertension -: Prinzmetal angina -: Back surgery -: Cardiac catheterization x2 Psychosocial/ Personal History: Patient lives at home with his . 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 - Family History Mother -: Cancer Notes: Breast CA Father -: Hypertension - Social History Smoking Status: Current every day smoker (vapes) Alcohol use: No CD- Drugs: No Caffeine use: Yes Place of Residence: Home Review of Systems Respiratory: Shortness of Breath Cardiovascular: Edema Physical Examination - Vital Signs Blood Pressure: 106/68 Pulse: 55 Respirations: 17 Pulse Ox (%): 99 - Physical Exam General: Alert, In no apparent distress, Obese HEENT: Atraumatic, PERRLA, EOMI, Sclerae nonicteric Neck: Supple, 2+ carotid pulse no bruit, No LAD, Without JVD or thyroid abnormality Respiratory: Clear to auscultation bilaterally, Normal air movement Cardiovascular: Regular rate/rhythm, Normal S1 S2, Edema (2+ pitting edema up to shins bilaterally) Gastrointestinal: Normal bowel sounds, No tenderness Musculoskeletal: No tenderness Integumentary: No rashes Neurological: Normal speech, Normal strength at 5/5 x4 extr, Normal tone, Normal affect - Studies Laboratory Data (last 24 hrs) 08/21/22 18:08: PT 10.9, INR 0.99 08/21/22 18:08: WBC 8.20, Hgb 8.4 L, Hct 24.9 L, Plt Count 259 08/21/22 18:08: Sodium 139, Potassium 3.6, BUN 16, Creatinine 1.03, Glucose 89, Magnesium 2.3, Total Bilirubin 0.5, AST 38 H, ALT 57, Alkaline Phosphatase 113 Assessment and Plan - Problems (Diagnosis) (1) Acute CHF Current Visit: Yes Status: Acute Qualifiers: Heart failure type: unspecified Qualified Code(s): I50.9 - Heart failure, unspecified (2) Hypertension Current Visit: Yes Status: Chronic Qualifiers: Hypertension type: primary hypertension Qualified Code(s): I10 - Essential (primary) hypertension (3) Type 2 diabetes mellitus Current Visit: Yes Status: Chronic Qualifiers: Diabetes mellitus intermission coordinator insulin use: without fpc use Diabetes mellitus complication status: with hyperglycemia Qualified Code(s): E11.65 - Type 2 diabetes mellitus with hyperglycemia (4) Anemia Current Visit: Yes Status: Chronic Qualifiers: Anemia type: iron deficiency - Plan Echocardiogram ordered. Cardiology consulted. 40 mg IV lasix given in ED. Patient has been diuresing well. Fluid restriction. Monitor output. Daily weights. I have faxed a request to [facility] to obtain medical records from patient's recent visit. [facility] accu checks with mild sliding scale and diabetic diet. CPAP ordered for bedtime as patient likely has undiagnosed ASHANTI. Potentially will need CPAP on dispo. Case management consulted. Baseline hemoglobin is unknown. Hemoglobin is 8.4, iron studies ordered. Monitor and replete electrolytes per protocol. Reconcile and continue home medications. Lovenox for VTE prophylaxis Full code Discharge Plan: Home Plan to discharge in: 48 Hours - Advance Directives Does patient have a Living Will: No Does patient have a Durable POA for Healthcare: No - Code Status/Comfort Care Code Status Assessed: Yes (Full) Critical Care: No Time Spent Managing Pts Care (In Minutes): 50
[2022-08-22 01:28] LABS: Urine Blood Negative (Negative); Urine Glucose Negative (Negative); Urine Protein Negative (Negative); Urine pH 7.5 (5.0-7.0)
[2022-08-22 01:28] LABS: Specific Gravity 1.009 (1.005-1.030); Urine Bilirubin NEGATIVE (Negative); Urine Blood Negative (Negative); Urine Clarity Clear (Clear); Urine Color Light-Yellow (Yellow); Urine Glucose NEGATIVE (Negative); Urine Protein NEGATIVE (Negative); Urine Urobilinogen Normal (Normal); Urine pH 7.5 (5.0-7.0)
[2022-08-22 01:39] LABS: Barbiturates NEGATIVE (NEGATIVE); Benzodiazepines NEGATIVE (NEGATIVE); Cocaine NEGATIVE (NEGATIVE); METHAMPHETAM NEGATIVE (NEGATIVE); Methadone NEGATIVE (NEGATIVE); Opiates NEGATIVE (NEGATIVE); Phencyclidine NEGATIVE (NEGATIVE); THC Cannibis NEGATIVE (NEGATIVE)
[2022-08-22 02:46] LABS: Absolute Lymphocytes (CBC) 3.4 K/uL (0.7-4.9); Hematocrit 25.9 % (39.6-49.0); Lymphocytes % 41.8 % (15.3-44.8); MCV 76.6 fL (80-100); MPV 7.1 fL (7.6-11.3); RBC Red Blood Cell Count 3.38 M/uL (4.33-5.43)
[2022-08-22 03:41] LABS: Magnesium 2.3 mg/dL (1.8-2.4); Phosphorus 4.2 mg/dL (2.5-4.9); Potassium 3.6 mmol/L (3.5-5.1); Thyroid Stimulating Hormone 6.38 uIU/mL (0.360-3.740)
[2022-08-22] MEDS ORDERED: TEMAZEPAM 15 MG CAP PO PRN (03:46)
[2022-08-22 03:47] VITALS: BMI 43.3
[2022-08-22 05:01] VITALS: O2SAT 98
[2022-08-22 06:44] VITALS: TEMP 97.6
[2022-08-22] MEDS ORDERED: INSULIN -REGULAR HUMAN 50 UNIT/0.5 ML ML SQ SCH (07:30)
[2022-08-22 08:45] VITALS: BP 112/66
[2022-08-22] MEDS ORDERED: POTASSIUM CL SA 10 MEQ TAB PO ONE (09:00)
--- NOTE | 2022-08-22 17:50 | P.DS ---
Admission Date: 08/21/22 Discharge Date: 08/22/22 Disposition: ROUTINE DISCHARGE Discharge Condition: GOOD Reason for Admission: Acute CHF Brief History of Present Illness: 27yo M, PMH: Prinzmetal angina, NIDDM2, HTN, Obesity, recent hospitalization for septic shock requiring vasopressors and CRRT, discharged 2 days prior to presentation here. Presents with reportedly 20lb weight gain in last 2 weeks, associated with increased shortness of breath, difficulty laying flat last night. In the ED, he was noted to have 2+ pitting edema in bilateral lower extremities, elevated BNP, elevated d-dimer. CTA chest: negative for PE, +small bilateral pulmonary effusions, mild ground glass opacities He received 40mg IV lasix and admitted for further management. Hospital Course: Problem List volume overload secondary to recent hospitalization / IV fluids possible CHF component anemia of chronic disease, iron deficiency NIDDM2 Patient presented with increased lower extremity weight gain and shortness of breath over the last 2 days. He was discharged on 08/20 from [facility] where he was treated for heart block, sepsis/septic shock due to pneumonia/UTI, and had JEFF requiring 2-3 days of CRRT. Evaluation here revealed bilateral edema and small bilateral pleural effusions, with elevated BNP and d-dimer. He had improvement of his swelling and ~10lb weight loss with 40mg IV lasix. Troponin negative, CTA negative for pneumonia/PE. Patient's renal function improved / at baseline on discharge. Patient deemed stable for discharge home. Discussed using lasix 20mg every other day if needed for his swelling. To take an extra 20mg on the off days, if swelling is not improving. Discussed risk/benefit of lasix in the setting of recent JEFF and acute on chronic edema. Recommend bloodwork - BMP next week. He was also noted to be anemic. Hgb in the 8s, was 7.9 2-3 days ago at [facility]. Iron studies consistent with iron deficiency. Recommend daily supplementation. Follow up with PCP Vital Signs/Physical Exam: Temp Pulse Resp BP Pulse Ox 97.6 F 66 18 112/66 98 08/22/22 08:00 08/22/22 08:00 08/22/22 08:00 08/22/22 08:00 08/22/22 08:00 General: Alert, In no apparent distress, Oriented x3, Obese HEENT: EOMI, Sclerae nonicteric Neck: Supple, No LAD Respiratory: Clear to auscultation bilaterally, Normal air movement Cardiovascular: Regular rate/rhythm, Edema (trace-1+ bilateral lower extremity edema to knees) Gastrointestinal: Soft and benign, Non-distended, No tenderness Musculoskeletal: No contractures, No tenderness Integumentary: No rashes, No significant lesion Neurological: Normal speech, Normal strength at 5/5 x4 extr, Normal affect Laboratory Data at Discharge: WBC 8.10 K/uL (4.3-10.9) 08/22/22 02:30 Hgb 8.6 g/dL (13.6-17.9) L 08/22/22 02:30 Hct 25.9 % (39.6-49.0) L 08/22/22 02:30 Plt Count 238 K/uL (152-406) 08/22/22 02:30 PT 10.9 SECONDS (9.5-12.5) 08/21/22 18:08 INR 0.99 08/21/22 18:08 Sodium 140 mmol/L (136-145) 08/22/22 02:30 Potassium 3.6 mmol/L (3.5-5.1) 08/22/22 02:30 BUN 14 mg/dL (7-18) 08/22/22 02:30 Creatinine 0.91 mg/dL (0.55-1.3) 08/22/22 02:30 Glucose 78 mg/dL (74-106) 08/22/22 02:30 Phosphorus 4.2 mg/dL (2.5-4.9) 08/22/22 02:30 Magnesium 2.3 mg/dL (1.8-2.4) 08/22/22 02:30 Total Bilirubin 0.5 mg/dL (0.2-1.0) 08/21/22 18:08 AST 38 U/L (15-37) H 08/21/22 18:08 ALT 57 U/L (12-78) 08/21/22 18:08 Alkaline Phosphatase 113 U/L (45-117) 08/21/22 18:08 Triglycerides 170 mg/dL (<150) H 08/22/22 02:30 Cholesterol 131 mg/dL (<200) 08/22/22 02:30 HDL Cholesterol 53 mg/dL (40-60) 08/22/22 02:30 Cholesterol/HDL Ratio 2.47 08/22/22 02:30 Home Medications: Aripiprazole [Abilify] 10 mg PO BEDTIME 08/22/22 Atogepant [Qulipta] 10 mg PO DAILY 08/22/22 Buspirone HCl [Buspar] 5 mg PO BID 08/22/22 Candesartan Cilexetil 4 mg PO BEDTIME 08/22/22 Diltiazem HCl [Diltiazem ER] 240 mg PO BEDTIME 08/22/22 Ferrous Sulfate [Iron] 325 mg PO DAILY 30 Days #30 tab 08/22/22 Fluoxetine HCl [Prozac] 40 mg PO DAILY 08/22/22 Fluvastatin Sodium [Lescol] 20 mg PO BEDTIME 08/22/22 Furosemide [Lasix] 20 mg PO DAILY 08/22/22 Isosorbide Mononitrate [Isosorbide Mononitrate ER] 60 mg PO DAILY 08/22/22 Lamictal Er 50 mg PO DAILY 08/22/22 Metoprolol Succinate [Toprol Xl] 25 mg PO BEDTIME 08/22/22 Pantoprazole [Protonix Tab] 40 mg PO BID 08/22/22 Pregabalin [Lyrica] 100 mg PO BID 08/22/22 Ranolazine [Ranexa] 1,000 mg PO BID 08/22/22 Remeron 1 tab PO BEDTIME 08/22/22 Rivaroxaban [Xarelto] 2.5 mg PO DAILY 08/22/22 levoFLOXacin [Levaquin] 750 mg PO DAILY 08/22/22 New Medications: Ferrous Sulfate [Iron] 325 mg PO DAILY 30 Days #30 tab Physician Discharge Instructions: Patient presented with increased lower extremity weight gain and shortness of breath over the last 2 days. He was discharged on 08/20 from [facility] here he was treated for heart block, sepsis/septic shock due to pneumonia/UTI, and had JEFF requiring 2-3 days of CRRT. Evaluation here revealed bilateral edema and small bilateral pleural effusions, with elevated BNP and d-dimer. He had improvement of his swelling and ~10lb weight loss with 40mg IV lasix. Troponin negative, CTA negative for pneumonia/PE. Patient's renal function improved / at baseline on discharge. Patient deemed stable for discharge home. Discussed using lasix 20mg every other day if needed for his swelling. To take an extra 20mg on the off days, if swelling is not improving. Discussed risk/benefit of lasix in the setting of recent JEFF and acute on chronic edema. Recommend bloodwork - BMP next week. He was also noted to be anemic. Hgb in the 8s, was 7.9 2-3 days ago at [facility]. Iron studies consistent with iron deficiency. Recommend daily supplementation. Follow up with PCP Followup: NONE,NONE [Primary Care Provider] - Time spent managing pt's care (in minutes): 45
--- NOTE | 2022-08-23 16:34 | EKG ---
Test Date: 2022-08-21 Test Time: 18:25:00 Distributor Advertising Material: SHAILA MEASUREMENT RESULTS: Intervals: Rate: 66 IL: 124 QRSD: 88 QT: 396 QTc: 415 [place]: P: 41 IL: 124 QRS: 41 T: 46 INTERPRETIVE STATEMENTS: Normal sinus rhythm Normal ECG Compared to ECG 10/14/2013 13:49:52 No significant changes Electronically Signed On 08-23-22 16:33:04 ZOOGLER by Brendon Ross
== END 2022-08-22 10:55 | disposition home or self-care (01) | DRG 292 ==
LOC: ER 17:35 → ERHOLD 22:23 → 2ND 08-22 01:48
PROVIDERS: ADMIT Hospitalist; ATTEND Hospitalist
PROC: 5A09357 Assistance with Respiratory Ventilation, Less than 24 Consecutive Hours, Continuous Positive Airway Pressure (ICD-10-PCS; principal; 2022-08-22)
DX: I11.0 Hypertensive heart disease with heart failure (principal); Z68.41 Body mass index [BMI] 40.0-44.9, adult; I50.9 Heart failure, unspecified; E66.9 Obesity, unspecified; E11.65 Type 2 diabetes mellitus with hyperglycemia; D50.9 Iron deficiency anemia, unspecified; K21.9 Gastro-esophageal reflux disease without esophagitis; F17.290 Nicotine dependence, other tobacco product, uncomplicated; Z95.5 Presence of coronary angioplasty implant and graft; Z99.2 Dependence on renal dialysis; Z88.0 Allergy status to penicillin; Z88.1 Allergy status to other antibiotic agents; Z88.8 Allergy status to other drugs, medicaments and biological substances; Z91.040 Latex allergy status; Z20.822 Contact with and (suspected) exposure to COVID-19
CPT/HCPCS: 36415; 71045; 71275; 80048; 80061; 80076; 80307; 81003; 82947; 83540; 83735; 83880; 84100; 84439; 84443; 84466; 84484; 85025; 85379; 85610; 87811; 93005; 94660; 96374; 96375; 99285; J1200; J1940; Q9967

== ENCOUNTER 2023-01-25 20:29 | Emergency (ER) | payer OTHER, SELFPAY ==
[2023-01-25 21:38] LABS: Absolute Lymphocytes (CBC) 3.1 K/uL (0.7-4.9); Hematocrit 39.1 % (39.6-49.0); Lymphocytes % 29.4 % (15.3-44.8); MCV 76.9 fL (80-100); MPV 6.8 fL (7.6-11.3); RBC Red Blood Cell Count 5.09 M/uL (4.33-5.43)
[2023-01-25 21:53] LABS: Protime INR 1.04
[2023-01-25 22:02] LABS: Albumin 3.9 g/dL (3.4-5.0); Bilirubin Direct 0.1 mg/dL (0-0.2); Bilirubin Total 0.3 mg/dL (0.2-1.0); Potassium 3.3 mEq/L (3.5-5.1); Protein, Total 7.8 g/dL (6.4-8.2); Troponin High Sensitivity 3.2 pg/mL (<58.9)
[2023-01-25] MEDS ORDERED: ONDANSETRON 4 MG/2 ML VIAL ONE (22:03)
[2023-01-25] MEDS ORDERED: LEVALBUTEROL 1.25 MG/3 ML NEB ONE (22:03)
[2023-01-25] MEDS ORDERED: MORPHINE 4 MG/ML SYR ONE (22:03)
[2023-01-25 22:40] LABS: Anisocytosis 1+; Blood Morphology Comment NOTED (NOT SEEN); Ovalocytes 1+; Platelet Estimate ADEQ; White Blood Cell Scan OK (OK)
--- NOTE | 2023-01-25 22:44 | RAD REPORT ---
[facility] DES[facility] 10[facility]24 pm CLINICAL HISTORY: SOB COMPARISON: Chest Single View dated 08/21/2022; CHEST SINGLE VIEW dated 10/14/2013; CHEST SINGLE VIEW dated 06/13/2012; CHEST SINGLE VIEW dated 01/20/2010 TECHNIQUE: Portable AP view of the chest. FINDINGS: Decreased inspiratory effort limits evaluation. The lungs are clear. No pneumothorax or ef fusion. The cardiomediastinal contours are unremarkable. Extensive thoracolumbar fusion hardware. IMPRESSION: No acute cardiopulmonary process.
[2023-01-25] MEDS ORDERED: METHYLPREDNISOLONE 125 MG INJ ONE (23:15)
--- NOTE | 2023-01-26 01:48 | EDPHYS ---
Physician Documentation [facility] Name: Orlando Sanchez Age: 27 yrs Sex: Male : 1995 Arrival Date: 01/25/2023 Time: 20:29 Bed 18 Private MD: ED Physician Fuentes Perkins HPI: 01/25 20:55 This 27 yrs old Male presents to ER via Ambulatory with complaints of Shortness Of cp Breath, Chest Pain. 20:55 The patient has shortness of breath with light activity. cp 20:55 Onset: The symptoms/episode began/occurred yesterday, and became worse today. cp 20:55 Duration: The symptoms are continuous, and are steadily getting worse. The patient's cp shortness of breath is aggravated by light activity. The patient or guardian reports chest pain that is located primarily in the anterior chest wall, bilaterally. The pain does not radiate. Associated signs and symptoms: Pertinent positives: non-productive cough, Pertinent negatives: diaphoresis, dizziness, fever, vomiting. Severity of symptoms: in the emergency department the symptoms are unchanged despite home interventions. The chest pain is described as a heaviness. Historical: - Allergies: 20:40 Latex, Natural Rubber; kl 20:40 Naproxen; kl 20:40 Omnicef; kl 20:40 PENICILLINS; kl 20:40 Vancomycin; kl - Home Meds: 20:50 naltrexone oral 4.5mg 2 tabs daily [Active]; diltiazem HCl 30 mg Oral tablet 4 times as6 per day [Active]; nitroglycerin 0.4 mg SL Tablet, Sublingual 1 tab every 5 minutes [Active]; Trulicity 1.5 mg/0.5 mL subcutaneous Pen Injector every week [Active]; pantoprazole 40 mg oral granules delayed release for susp packet 2 times per day [Active]; esomeprazole magnesium 40 mg oral capsule,delayed release (e.c.) daily [Active]; timolol maleate 0.5 % Opht Drops, Once Daily daily [Active]; bupropion HCl 150 mg Oral Tablet, Extended Release 24 hr daily [Active]; ferrous sulfate 325 mg (65 mg iron) Oral tablet daily [Active]; clomiphene citrate 50 mg oral tablet daily [Active]; famotidine 20 mg Oral tablet 2 times per day [Active]; Aimovig Autoinjector 140 mg/mL subcutaneous Auto-Injector every month [Active]; Ubrelvy 100 mg oral tablet 1 tab once [Active]; fluticasone propion-salmeterol 232-14 mcg/actuation inhalation Aerosol Powder, Breath Activated 2 times per day [Active]; prochlorperazine maleate 10 mg Oral tablet every 4 to 6 hours [Active]; albuterol sulfate 90 mcg/actuation Inhl HFA Aerosol Inhaler every 6 hours [Active]; ascorbic acid (vitamin C) 1,000 mg tablet 2 times per day [Active]; aspirin 81 mg Oral capsule once [Active]; cholecalciferol (vitamin D3) 125 mcg (5,000 unit) oral capsule once [Active]; B-12 Plus 5,000-100 mcg sublingual Tablet, Sublingual [Active]; furosemide 20 mg Oral tablet daily [Active]; levalbuterol HCl 1.25 mg/3 mL inhalation Solution for Nebulization every 3 to 4 hours [Active]; meloxicam 7.5 mg oral tablet daily [Active]; multivitamin with minerals-folic acid-lycopene oral [Active]; potassium chloride 10 mEq Oral Tablet, ER Particles/Crystals daily [Active]; losartan potassium (bulk) [Active]; fluoxetine 40 mg Oral capsule daily [Active]; lamotrigine 50 mg oral Tablet, Extended Release 24 hr daily [Active]; mirtazapine 7.5 mg Oral tablet every day at bedtime [Active]; nebivolol 5 mg oral tablet daily [Active]; orphenadrine citrate (bulk) [Active]; Xarelto 2.5 mg oral tablet 2 times per day [Active]; - PMHx: 20:40 diabetes mellitus; GERD; Hernia; Headaches; Atrial fibrillation; kl - PSHx: 20:40 back SX x 2 heart caths; kl - Immunization history:: Adult Immunizations Pneumococcal vaccine is not up to date, Flu vaccine is up to date. - Social history:: Smoking status: Patient/guardian denies using tobacco, Stopped _ months ago 3. ROS: 21:00 Constitutional: Negative for body aches, chills, fever, poor PO intake. cp 21:00 Eyes: Negative for injury, pain, redness, and discharge. cp 21:00 ENT: Negative for drainage from ear(s), ear pain, sore throat, difficulty swallowing, cp difficulty handling secretions. 21:00 Cardiovascular: Positive for chest pain, Negative for palpitations. 21:00 Respiratory: Positive for cough, with no reported sputum, shortness of breath, on exertion. Negative for wheezing. 21:00 Abdomen/GI: Negative for abdominal pain, vomiting, diarrhea, constipation. 21:00 Back: Negative for pain at rest, pain with movement, radiated pain. 21:00 Skin: Negative for cellulitis, rash. 21:00 Neuro: Negative for altered mental status, dizziness, headache, numbness, syncope, weakness. 21:00 All other systems are negative. cp Exam: 20:56 ECG was reviewed by the Attending Physician. cp 21:05 Constitutional: The patient appears in no acute distress, alert, awake, cp non-diaphoretic, non-toxic, well developed, well nourished, obese. 21:05 Head/Face: Normocephalic, atraumatic. cp 21:05 Eyes: Periorbital structures: appear normal, Pupils: equal, round, and reactive to light and accomodation, Extraocular movements: intact throughout, Conjunctiva: normal, no exudate, no injection, Sclera: no appreciated abnormality, Lids and lashes: appear normal, bilaterally. 21:05 ENT: External ear(s): are unremarkable, Nose: is normal, Mouth: Lips: moist, Oral mucosa: pink and intact, moist, Posterior pharynx: is normal, airway is patent, no erythema, no exudate. 21:05 Neck: ROM/movement: is normal, is supple, without pain, no range of motions limitations, no meningismus, no nuchal rigidity. 21:05 Chest/axilla: Inspection: normal, Palpation: is normal, no crepitus, no tenderness. 21:05 Cardiovascular: Rate: normal, Rhythm: regular, Edema: ankle edema, that is very mild, JVD: is not appreciated. 21:05 Respiratory: the patient does not display signs of respiratory distress, Respirations: normal, no use of accessory muscles, no retractions, labored breathing, is not present, Breath sounds: are clear throughout, no decreased breath sounds, no stridor, no wheezing. 21:05 Abdomen/GI: Inspection: obese Palpation: abdomen is soft and non-tender, in all quadrants. 21:05 Back: pain, is absent, ROM is normal. 21:05 Skin: cellulitis, is not appreciated, no rash present. 21:05 Neuro: Orientation: to person, place \T\ time. Mentation: is normal, Cerebellar function: is grossly normal, Motor: moves all fours, strength is normal, Sensation: is normal. Vital Signs: 20:38 BP 133 / 91; Pulse 85; Resp 18; Temp 98.3(O); Pulse Ox 100% ; Weight 127.91 kg (R); kl Height 5 ft. 8 in. ; 21:30 BP 110 / 59; Pulse 79; Resp 21 S; Pulse Ox 100% on R/A; as6 22:30 BP 112 / 61; Pulse 63; Resp 18 S; Pulse Ox 100% on R/A; as6 23:59 BP 106 / 56; Pulse 71; Resp 18 S; Pulse Ox 98% on R/A; as6 01/26 01:15 Pulse 59; Resp 22 S; Pulse Ox 97% on R/A; as6 02:00 BP 113 / 62; Pulse 70; Resp 18 S; Pulse Ox 100% on R/A; as6 01/25 20:38 Body Mass Index 42.88 (127.91 kg, 172.72 cm) kl MDM: 01/25 20:50 Patient medically screened. cp 01/26 01:47 Data reviewed: vital signs, nurses notes, lab test result(s), EKG, radiologic studies, cp plain films, ultrasound, and as a result, I will discharge patient. 01:47 Differential diagnosis: abnormal EKG, acute pericarditis, Myocardial Infarction cp pneumonia, Pneumothorax pulmonary edema, Pulmonary Embolism reactive airway disease, Sepsis Unstable Angina. Antibiotic administration: Not indicated, the patient does not have an appreciated infiltrate. Consideration of Admission/Observation Escalation of care including admission/observation considered. I considered the following discharge prescriptions or medication management in the emergency department Medications were administered in the Emergency Department. See MAR. Independent interpretation of the following test(s) in the Emergency Department EKG: See my EKG interpretation above. Test considered but Not performed: CT: chest to r/o pulmonary embolism. Care significantly affected by the following chronic conditions: Diabetes, Obesity. Counseling: I had a detailed discussion with the patient and/or guardian regarding: the historical points, exam findings, and any diagnostic results supporting the discharge/admit diagnosis, lab results, radiology results, the need for outpatient follow up, a bait painter, a family practitioner, to return to the emergency department if symptoms worsen or persist or if there are any questions or concerns that arise at home. Response to treatment: the patient's symptoms have markedly improved after treatment, and as a result, I will discharge patient. Special discussion: Based on the patient's history, exam, and Dx evaluation, there is no indication for emergent intervention or inpatient Tx. It is understood by the patient/guardian that if the Sx's persist or worsen they need to return immediately for re-evaluation. 01/25 20:48 Order name: Basic Metabolic Panel; Complete Time: 22:51 as01/25 22:51 Interpretation: Normal except: K 3.3; GLUC 109. cp 01/25 20:48 Order name: CBC with Diff; Complete Time: 22:51 as6 01/26 01:39 Interpretation: Normal except: HGB 13.1; HCT 39.1; MCV 76.9; MCH 25.8; RDW 21.0; MPV cp 6.8. 01/25 20:48 Order name: LFT's; Complete Time: 22:51 as6 01/26 01:39 Interpretation: Normal except: GLOB 3.9; A/G 1.0. cp 01/25 20:48 Order name: Magnesium; Complete Time: 22:51 as01/25 20:48 Order name: NT PRO-BNP; Complete Time: 22:51 as01/25 20:48 Order name: PT-INR; Complete Time: 23:41 as01/25 20:48 Order name: Troponin HS; Complete Time: 22:51 01/25 20:50 Order name: COVID-19 SARS RT PCR; Complete Time: 22:51 cp 01/25 21:43 Order name: CBC Smear Scan; Complete Time: 22:51 EDMS 01/25 23:14 Order name: LAB Add On cp 01/25 23:23 Order name: D-Dimer; Complete Time: 23:41 EDMS 01/25 23:42 Interpretation: Reviewed. cp 01/26 00:12 Order name: Troponin High Sensitivity: repeat \T\0030; Complete Time: 01:47 cp 01/26 01:47 Interpretation: Reviewed. cp 01/25 20:48 Order name: XRAY Chest (1 view); Complete Time: 22:51 01/25 23:42 Order name: US Extremity Venous W Compression Angel cp 01/25 20:48 Order name: EKG; Complete Time: 20:49 01/25 20:48 Order name: Cardiac monitoring; Complete Time: 21:08 01/25 20:48 Order name: EKG - Nurse/Tech; Complete Time: 21:08 01/25 20:48 Order name: IV Saline Lock; Complete Time: 21:32 01/25 20:48 Order name: Labs collected and sent; Complete Time: 21:32 01/25 20:48 Order name: O2 Per Protocol; Complete Time: 21:11 01/25 20:48 Order name: O2 Sat Monitoring; Complete Time: 21:11 EC/29 20:56 Rate is 81 beats/min. Rhythm is regular. MI interval is normal. QRS interval is normal. cp QT interval is normal. T waves are Inverted in lead aVR. Interpreted by me. Reviewed by me. Administered Medications: 22:05 Drug: morphine IVP or IV 4 mg Route: IVP; Infused Over: 4 mins; Site: right antecubital;01/26 01:59 Follow up: Response: No adverse reaction 01/25 22:05 Drug: Ondansetron IVP 4 mg Route: IVP; Site: right antecubital; 01/26 01:58 Follow up: Response: No adverse reaction 01/25 22:05 Drug: Levalbuterol Inhalation 1.25 mg Route: Inhalation; 01/26 01:58 Follow up: Response: No adverse reaction 01/25 23:31 Drug: MethylPrednisoLONE IVP 125 mg Route: IVP; Site: right antecubital; 01/26 01:58 Follow up: Response: No adverse reaction Disposition: 07:13 Co-signature as Attending Physician, Fuentes Perkins MD I agree with the assessment sp4 and plan of care. I reviewed the patient's care provided by the Advanced Practice Provider and agree with the diagnosis and treatment plan. Disposition Summary: 01/26/23 01:47 Discharge Ordered Location: Home cp Problem: new cp Symptoms: have improved cp Condition: Stable cp Diagnosis - Chest pain, unspecified cp - Shortness of breath cp Followup: cp - With: Private Physician - When: 2 - 3 days - Reason: Recheck today's complaints Discharge Instructions: - Discharge Summary Sheet cp - Nonspecific Chest Pain, Adult cp - Shortness of Breath, Adult cp - Aspirin and Your Heart cp Forms: - Medication Reconciliation Form cp - Thank You Letter cp - Antibiotic Education cp - Prescription Opioid Use cp Prescriptions: - Medrol (Deven) 4 mg Oral Tablets, Dose Pack - take 1 tablet by ORAL route as directed - follow package instructions; 1 cp packet; Refills: 0, Product Selection Permitted Signatures: Dispatcher [employer] Pamela Stewart RN RN Jones Pedraza PA PA cp Hebert Trinh RN RN as6 Fuentes Perkins MD MD sp4 Corrections: (The following items were deleted from the chart) 01/25 23:23 23:15 D-DIMER+[id number] ordered. EDNJ EDMS
--- NOTE | 2023-01-26 01:48 | ER ---
Nurse's Notes [facility] Name: Orlando Sanchez Age: 27 yrs Sex: Male : 1995 Arrival Date: 01/25/2023 Time: 20:29 Bed 18 Private MD: Diagnosis: Chest pain, unspecified;Shortness of breath Presentation: 01/25 20:38 Chief complaint: Patient states: chest pain shortness of breath began yesterday kl released fro [facility] on Friday recent diagnosis Afib RVR EF of 30%. Coronavirus screen: Vaccine status: Patient reports receiving the 2nd dose of the covid vaccine. Ebola Screen: Patient negative for fever greater than or equal to 101.5 degrees Fahrenheit, and additional compatible Ebola Virus Disease symptoms. Initial Sepsis Screen: Does the patient meet any 2 criteria? No. Patient's initial sepsis screen is negative. Does the patient have a suspected source of infection? No. Patient's initial sepsis screen is negative. Risk Assessment: Do you want to hurt yourself or someone else? Patient reports no desire to harm self or others. 20:38 Method Of Arrival: Ambulatory kl 20:38 Acuity: SURJIT 2 kl 01/26 02:00 Onset of symptoms is unknown. as6 Triage Assessment: 01/25 20:42 General: Appears distressed, uncomfortable, Behavior is calm, cooperative, Smells of. kl Pain: Complains of pain in chest. Respiratory: Reports shortness of breath on exertion Onset: The symptoms/episode began/occurred yesterday, the patient has moderate shortness of breath. Historical: - Allergies: 20:40 Latex, Natural Rubber; kl 20:40 Naproxen; kl 20:40 Omnicef; kl 20:40 PENICILLINS; kl 20:40 Vancomycin; kl - Home Meds: 20:50 naltrexone oral 4.5mg 2 tabs daily [Active]; diltiazem HCl 30 mg Oral tablet 4 times as6 per day [Active]; nitroglycerin 0.4 mg SL Tablet, Sublingual 1 tab every 5 minutes [Active]; Trulicity 1.5 mg/0.5 mL subcutaneous Pen Injector every week [Active]; pantoprazole 40 mg oral granules delayed release for susp packet 2 times per day [Active]; esomeprazole magnesium 40 mg oral capsule,delayed release (e.c.) daily [Active]; timolol maleate 0.5 % Opht Drops, Once Daily daily [Active]; bupropion HCl 150 mg Oral Tablet, Extended Release 24 hr daily [Active]; ferrous sulfate 325 mg (65 mg iron) Oral tablet daily [Active]; clomiphene citrate 50 mg oral tablet daily [Active]; famotidine 20 mg Oral tablet 2 times per day [Active]; Aimovig Autoinjector 140 mg/mL subcutaneous Auto-Injector every month [Active]; Ubrelvy 100 mg oral tablet 1 tab once [Active]; fluticasone propion-salmeterol 232-14 mcg/actuation inhalation Aerosol Powder, Breath Activated 2 times per day [Active]; prochlorperazine maleate 10 mg Oral tablet every 4 to 6 hours [Active]; albuterol sulfate 90 mcg/actuation Inhl HFA Aerosol Inhaler every 6 hours [Active]; ascorbic acid (vitamin C) 1,000 mg tablet 2 times per day [Active]; aspirin 81 mg Oral capsule once [Active]; cholecalciferol (vitamin D3) 125 mcg (5,000 unit) oral capsule once [Active]; B-12 Plus 5,000-100 mcg sublingual Tablet, Sublingual [Active]; furosemide 20 mg Oral tablet daily [Active]; levalbuterol HCl 1.25 mg/3 mL inhalation Solution for Nebulization every 3 to 4 hours [Active]; meloxicam 7.5 mg oral tablet daily [Active]; multivitamin with minerals-folic acid-lycopene oral [Active]; potassium chloride 10 mEq Oral Tablet, ER Particles/Crystals daily [Active]; losartan potassium (bulk) [Active]; fluoxetine 40 mg Oral capsule daily [Active]; lamotrigine 50 mg oral Tablet, Extended Release 24 hr daily [Active]; mirtazapine 7.5 mg Oral tablet every day at bedtime [Active]; nebivolol 5 mg oral tablet daily [Active]; orphenadrine citrate (bulk) [Active]; Xarelto 2.5 mg oral tablet 2 times per day [Active]; - PMHx: 20:40 diabetes mellitus; GERD; Hernia; Headaches; Atrial fibrillation; kl - PSHx: 20:40 back SX x 2 heart caths; kl - Immunization history:: Adult Immunizations Pneumococcal vaccine is not up to date, Flu vaccine is up to date. - Social history:: Smoking status: Patient/guardian denies using tobacco, Stopped _ months ago 3. Screenin:45 [facility] ED Fall Risk Assessment (Adult) Score/Fall Risk Level 0 - 2 = Low Risk. Abuse as6 screen: Denies threats or abuse. Denies injuries from another. Nutritional screening: No deficits noted. Tuberculosis screening: No symptoms or risk factors identified. Assessment: 20:45 General: Appears in no apparent distress. Behavior is calm, cooperative. Pain: as6 Complains of pain in back and chest. Neuro: Level of Consciousness is awake, alert, obeys commands, Oriented to person, place, time, situation. Cardiovascular: Reports chest pain, shortness of breath. Respiratory: Reports shortness of breath at rest on exertion Airway is patent Trachea midline Respiratory effort is even, unlabored, Respiratory pattern is regular, symmetrical. 01/26 01:17 Reassessment: Patient appears in no apparent distress at this time. Patient states as6 feeling better. Vital Signs: 01/25 20:38 BP 133 / 91; Pulse 85; Resp 18; Temp 98.3(O); Pulse Ox 100% ; Weight 127.91 kg (R); Height 5 ft. 8 in. ; 21:30 BP 110 / 59; Pulse 79; Resp 21 S; Pulse Ox 100% on R/A; as6 22:30 BP 112 / 61; Pulse 63; Resp 18 S; Pulse Ox 100% on R/A; as6 23:59 BP 106 / 56; Pulse 71; Resp 18 S; Pulse Ox 98% on R/A; as6 01/26 01:15 Pulse 59; Resp 22 S; Pulse Ox 97% on R/A; as6 02:00 BP 113 / 62; Pulse 70; Resp 18 S; Pulse Ox 100% on R/A; as6 01/25 20:38 Body Mass Index 42.88 (127.91 kg, 172.72 cm) ED Course: 01/25 20:32 Patient arrived in ED. mr 20:36 Jones Chaparro PA is PHCP. cp 20:37 Fuentes Perkins MD is Attending Physician. cp 20:40 Triage completed. 20:44 Hebert Trinh, GENESIS is Primary Nurse. as6 20:45 Arm band placed on. as6 20:45 Placed in gown. Bed in low position. Call light in reach. Side rails up X 1. Client as6 placed on continuous cardiac and pulse oximetry monitoring. NIBP monitoring applied. 21:25 Inserted saline lock: 20 gauge in right antecubital area, using aseptic technique. as6 Blood collected. ultrasound guided. 21:32 COVID-19 SARS RT PCR Sent. as6 21:32 Basic Metabolic Panel Sent. as6 21:32 CBC with Diff Sent. as6 21:32 LFT's Sent. as6 21:32 Magnesium Sent. as6 21:32 NT PRO-BNP Sent. as6 21:32 PT-INR Sent. as6 21:32 Troponin HS Sent. as6 22:26 XRAY Chest (1 view) In Process Unspecified. EDMS 01/26 00:27 US Extremity Venous W Compression Angel In Process Unspecified. EDMS 01:59 No provider procedures requiring assistance completed. IV discontinued, intact, as6 bleeding controlled, No redness/swelling at site. Pressure dressing applied. Administered Medications: 01/25 22:05 Drug: morphine IVP or IV 4 mg Route: IVP; Infused Over: 4 mins; Site: right antecubital;as6 01/26 01:59 Follow up: Response: No adverse reaction as6 01/25 22:05 Drug: Ondansetron IVP 4 mg Route: IVP; Site: right antecubital; as01/26 01:58 Follow up: Response: No adverse reaction 01/25 22:05 Drug: Levalbuterol Inhalation 1.25 mg Route: Inhalation; 01/26 01:58 Follow up: Response: No adverse reaction 01/25 23:31 Drug: MethylPrednisoLONE IVP 125 mg Route: IVP; Site: right antecubital; as01/26 01:58 Follow up: Response: No adverse reaction as6 Medication: :59 VIS not applicable for this client. as6 Outcome: 01:47 Discharge ordered by MD. jacobson 01:59 Discharged to home ambulatory. as6 01:59 Condition: stable 01:59 Discharge instructions given to patient, Instructed on discharge instructions, follow up and referral plans. medication usage, Demonstrated understanding of instructions, follow-up care, medications, Prescriptions given X 1. 02:00 Patient left the ED. as6 Signatures: Dispatcher [employer] EDPamela Gaona RN RN kl [facility] m[facility] Jones Chaparro PA PA cp Slawson, Ashby, RN RN as6
[2023-01-26 02:09] VITALS: TEMP 98.3
[2023-01-26 02:14] VITALS: BP 106/56
[2023-01-26 02:15] VITALS: O2SAT 97
--- NOTE | 2023-01-27 11:30 | RAD REPORT ---
EXAM DESCRIPTION: US - Extrem Venous W Compress Angel - 01/26/2023 12:25 am CLINICAL HISTORY: SWELLING TECHNIQUE: Real-time Duplex ultrasound of the bilateral lower extremity veins with 2-D lucero scale, c olor Doppler flow, and spectral waveform analysis. COMPARISON: None available for comparison. FINDINGS: Bilateral deep veins: The common femoral, femoral, popliteal and visualized calf veins are patent without thrombus. Normal compressibility, augmentation response, and Doppler waveforms. Bilateral superficial veins: Visualized saphenofemoral junction is patent without thrombus. IMPRESSION: No evidence of deep venous thrombosis in bilateral lower extremities. Electronically signed by: Axel Dixon MD 01/26/2023 12:49 AM CDT Due to temporary technical issues with the PACS/Fluency reporting system, reports are being signed by the in house radiologist without review as a courtesy to ensure prompt reporting. The interpreting r adiologist is fully responsible for the content of the report.
--- NOTE | 2023-01-27 12:41 | EKG ---
Test Date: 2023-01-25 Test Time: 20:50:04 Striper Spray Gun: ANA MEASUREMENT RESULTS: Intervals: Rate: 81 PA: 138 QRSD: 92 QT: 368 QTc: 427 [place]: P: 16 PA: 138 QRS: 22 T: 26 INTERPRETIVE STATEMENTS: Normal sinus rhythm with sinus arrhythmia Minimal voltage criteria for LVH, may be normal variant Nonspecific ST abnormality Abnormal ECG Compared to ECG 08/21/2022 18:25:00 Left ventricular hypertrophy now present ST (T wave) deviation now present Electronically Signed On 01-27-23 12:37:23 CDT by Tod Wade
== END 2023-01-26 02:00 | disposition home or self-care (01) ==
LOC: ER 20:29
DX: R07.89 Other chest pain (principal); R06.02 Shortness of breath; R05.9 Cough, unspecified; E11.9 Type 2 diabetes mellitus without complications; I48.91 Unspecified atrial fibrillation; Z20.822 Contact with and (suspected) exposure to COVID-19; Z79.82 Long term (current) use of aspirin; Z88.0 Allergy status to penicillin; Z88.1 Allergy status to other antibiotic agents; Z88.3 Allergy status to other anti-infective agents; Z88.5 Allergy status to narcotic agent; Z88.8 Allergy status to other drugs, medicaments and biological substances; Z91.040 Latex allergy status; Z91.048 Other nonmedicinal substance allergy status
CPT/HCPCS: 93005; 85025; 80048; 36415; 83735; 85610; 85379; 80076; 84484 ×2; 83880; 71045; 93970; U0003; J7614; J2930; J2405; 96374; 96375; 99285

== ENCOUNTER 2023-02-23 14:00 | Emergency (ER) | payer OTHER ==
[2023-02-23] MEDS ORDERED: MAGNESIUM SULFATE 1 gm IVPB 1 GM/100 ML BAG IV ONE (15:07)
[2023-02-23] MEDS ORDERED: NA CHLORIDE 0.9% 1,000 ML ONE (15:07)
--- NOTE | 2023-02-23 15:35 | RAD REPORT ---
EXAM DESCRIPTION: RAD - Chest Single View - 02/23/2023 3:26 pm CLINICAL HISTORY: CHEST PAIN COMPARISON: Chest Single View dated 02/01/2023; Chest Single View dated 01/25/2023; Chest Single View d ated 08/21/2022; CHEST SINGLE VIEW dated 10/14/2013 FINDINGS: Lines: None. Lungs: No evidence of edema or pneumonia. Pleural: No significant pleural effusions or pneumothorax. Cardiac: The heart size is within normal limits. Mediastinum: Within normal limits. Bones: No acute fractures. Nicholas rods in the spine. Other: None IMPRESSION: No acute cardiopulmonary disease.
[2023-02-23 15:39] LABS: Absolute Lymphocytes (CBC) 2.3 K/uL (0.7-4.9); Hematocrit 38.5 % (39.6-49.0); Lymphocytes % 30.3 % (15.3-44.8); MCV 79.9 fL (80-100); MPV 6.7 fL (7.6-11.3); RBC Red Blood Cell Count 4.82 M/uL (4.33-5.43)
[2023-02-23 15:46] LABS: Protime INR 1.05
[2023-02-23 15:50] LABS: Barbiturates NEGATIVE (NEGATIVE); Benzodiazepines NEGATIVE (NEGATIVE); Cocaine NEGATIVE (NEGATIVE); METHAMPHETAM NEGATIVE (NEGATIVE); Methadone NEGATIVE (NEGATIVE); Opiates NEGATIVE (NEGATIVE); Phencyclidine NEGATIVE (NEGATIVE); THC Cannibis NEGATIVE (NEGATIVE)
[2023-02-23 16:14] LABS: ALT/SGPT 31 U/L (16-61); AST/SGOT 13 U/L (15-37); Albumin 3.8 g/dL (3.4-5.0); Alkaline Phosphatase 104 U/L (45-117); BUN Blood Urea Nitrogen 10 mg/dL (7-18); Bicarbonate 28 mEq/L (21-32); Bilirubin Direct 0.1 mg/dL (0-0.2); Bilirubin Indirect, Calculated 0.3 mg/dL (0.2-0.8); Bilirubin Total 0.4 mg/dL (0.2-1.0); Glomerular Filtration Rate 103 ml/min (=/>90); Glucose Level 141 mg/dL (74-106); Magnesium 2.1 mg/dL (1.6-2.4); NT PRO-BNP 40 pg/mL (<125); Potassium 3.3 mEq/L (3.5-5.1); Protein, Total 7.4 g/dL (6.4-8.2); Sodium Level 138 mEq/L (136-145)
[2023-02-23 16:18] LABS: Troponin High Sensitivity < 3.0 pg/mL (<58.9)
[2023-02-23] MEDS ORDERED: POTASSIUM 25 MEQ EFFERV TAB ONE (16:51)
[2023-02-23] MEDS ORDERED: METOPROLOL TAR 50 MG TAB ONE (17:22)
--- NOTE | 2023-02-23 17:50 | ER ---
Nurse's Notes [facility] Name: Orlando Sanchez Age: 27 yrs Sex: Male : 1995 Arrival Date: 02/23/2023 Time: 14:00 Bed 5 Private MD: Tatiana San Diagnosis: Palpitations;Hypokalemia Presentation: 02/23 14:21 Chief complaint: Patient states: Pt has a life vest, has had it for 3 weeks, states nj1 that within the last hour it has alarmed for him to respond twice. Has been feeling lightheaded and palpitations today. Coronavirus screen: Vaccine status: Patient reports receiving the 2nd dose of the covid vaccine. Ebola Screen: Patient denies travel to an Ebola-affected area in the 21 days before illness onset. Initial Sepsis Screen: Does the patient meet any 2 criteria? HR > 90 bpm. No. Patient's initial sepsis screen is negative. Does the patient have a suspected source of infection? No. Patient's initial sepsis screen is negative. Risk Assessment: Do you want to hurt yourself or someone else? Patient reports no desire to harm self or others. Onset of symptoms was February 23, 2023. 14:21 Method Of Arrival: Ambulatory banner 14:21 Acuity: SURJIT 2 nj1 Historical: - Allergies: 14:26 Latex, Natural Rubber; nj1 14:26 Naproxen; nj1 14:26 Omnicef; nj1 14:26 PENICILLINS; nj1 14:26 Vancomycin; nj1 - PMHx: 14:26 Atrial fibrillation; diabetes mellitus; GERD; Headaches; Hernia; Congestive heart nj1 failure; - PSHx: 14:26 back SX x 2 heart caths; nj1 - Immunization history:: Client reports receiving the 2nd dose of the Covid vaccine. - Social history:: Smoking status: Patient denies any tobacco usage or history of. - Family history:: not pertinent. Screenin:00 [facility] ED Fall Risk Assessment (Adult) History of falling in the last 3 months, ko1 including since admission No falls in past 3 months (0 pts) Confusion or Disorientation No (0 pts) Intoxicated or Sedated No (0 pts) Impaired Gait No (0 pts) Mobility Assist Device Used No (0 pt) Altered Elimination No (0 pt) Score/Fall Risk Level 0 - 2 = Low Risk Oriented to surroundings, Maintained a safe environment, Educated pt \T\ family on fall prevention, incl call for assistance when getting out of bed, Assessed \T\ reinforced patient's understanding of fall precautions, Provided non-skid footwear, Hourly rounding (assess needs \T\ fall precautionary measures) done, Used ambulatory aids as needed (educated on \T\ assisted with), Used gait belt as appropriate. Abuse screen: Denies threats or abuse. Denies injuries from another. Nutritional screening: No deficits noted. Tuberculosis screening: No symptoms or risk factors identified. Assessment: 15:00 General: Appears in no apparent distress. comfortable, Behavior is calm, cooperative, ko1 appropriate for age. Pain: Denies pain. Neuro: No deficits noted. Cardiovascular: Reports defibrillator going off. Respiratory: No deficits noted. GI: No deficits noted. : No deficits noted. EENT: No deficits noted. Derm: No deficits noted. Musculoskeletal: No deficits noted. 15:32 Reassessment: Spoke to Jacqueline at [facility] [phone], sending report for last 2 weeks. hb Vital Signs: 14:21 BP 127 / 75; Pulse 94; Resp 18; Temp 99.4(O); Pulse Ox 100% ; Weight 122.92 kg; Height nj1 5 ft. 8 in. ; Pain 6/10; 14:30 BP 112 / 69; Pulse 67; Resp 16; Pulse Ox 99% on R/A; ko1 14:45 BP 105 / 75; Pulse 95; Resp 16; Pulse Ox 100% ; ko1 15:00 BP 121 / 74; Pulse 105; Resp 16; Pulse Ox 100% ; ko1 17:16 BP 107 / 46; Pulse 86; Resp 18; Temp 98.4(T); Pulse Ox 100% ; ko1 14:21 Body Mass Index 41.20 (122.92 kg, 172.72 cm) nj1 14:21 Pain Scale: Adult banner ED Course: 14:01 Patient arrived in ED. am2 14:02 Tatiana San is Private Physician. am2 14:26 Triage completed. nj1 14:28 Arm band placed on right wrist. nj1 14:35 Jones Frausto MD is Attending Physician. carley 14:55 Niurka Alvarado, GENESIS is Primary Nurse. ko1 15:00 Patient has correct armband on for positive identification. Bed in low position. Call ko1 light in reach. Client placed on continuous cardiac and pulse oximetry monitoring. NIBP monitoring applied. athletic monitor on. Door closed. Noise minimized. Lights dimmed. Warm blanket given. 15:15 Inserted saline lock: 20 gauge in right antecubital area, using aseptic technique. bp Blood collected. 15:27 XRAY Chest (1 view) In Process Unspecified. EDMS 17:22 Troponin High Sensitivity: 530pm Sent. ko1 17:50 Brendon Ross MD is Referral Physician. [facility] 17:59 No provider procedures requiring assistance completed. IV discontinued, intact, ko1 bleeding controlled, No redness/swelling at site. Pressure dressing applied. Administered Medications: 15:14 Drug: Magnesium Sulfate IVPB 1 grams Route: IVPB; Infused Over: 1 hrs; Site: right bp antecubital; 15:14 Drug: NS 0.9% IV 1000 ml Route: IV; Rate: 125 ml/hr; Site: right antecubital; bp 16:42 Drug: Potassium PO Effervescent Tablet 50 mEq Route: PO; ko1 17:15 Drug: Metoprolol PO 50 mg Route: PO; ko1 Medication: 15:00 VIS not applicable for this client. ko1 Outcome: 17:50 Discharge ordered by . [facility] 17:59 Discharged to home ambulatory, with family. ko1 17:59 Condition: stable 17:59 Condition: stable 17:59 Discharge instructions given to patient, Instructed on discharge instructions, follow up and referral plans. Demonstrated understanding of instructions, follow-up care, medications. 18:07 Patient left the ED. ko1 Signatures: Dispatcher [employer] Jones Wiggins MD MD cha Baxter, Heather, RN RN Fay Hernandez am2 Deniz Peralta RN RN bp Niurka Alvarado RN RN ko1 Margaret Parker RN RN nj1
--- NOTE | 2023-02-23 17:51 | EDPHYS ---
Physician Documentation [facility] Name: Orlando Sanchez Age: 27 yrs Sex: Male : 1995 Arrival Date: 02/23/2023 Time: 14:00 Bed 5 Private MD: Tatiana San ED Physician Jones Frausto HPI: 02/23 16:16 This 27 yrs old Male presents to ER via Ambulatory with complaints of device carley going off-defibrillator. 16:16 The patient presents with a history of heart racing, heart skipping beats. Context: The carley symptoms occur at rest, with light activity. Onset: The symptoms/episode began/occurred this morning, today. Duration: The patient or guardian reports multiple episodes, that are intermittent. Modifying factors: The symptoms are aggravated by nothing. The symptoms are alleviated by nothing. Associated signs and symptoms: The patient has no apparent associated signs or symptoms. Severity of symptoms: At their worst the symptoms were mild in the emergency department the symptoms have resolved. The patient has experienced similar episodes in the past, multiple times. Historical: - Allergies: 14:26 Latex, Natural Rubber; nj1 14:26 Naproxen; nj1 14:26 Omnicef; nj1 14:26 PENICILLINS; nj1 14:26 Vancomycin; nj1 - PMHx: 14:26 Atrial fibrillation; diabetes mellitus; GERD; Headaches; Hernia; Congestive heart nj1 failure; - PSHx: 14:26 back SX x 2 heart caths; nj1 - Immunization history:: Client reports receiving the 2nd dose of the Covid vaccine. - Social history:: Smoking status: Patient denies any tobacco usage or history of. - Family history:: not pertinent. ROS: 16:16 Constitutional: Negative for fever, chills, and weight loss, Eyes: Negative for injury, carley pain, redness, and discharge, ENT: Negative for injury, pain, and discharge, Neck: Negative for injury, pain, and swelling, Respiratory: Negative for shortness of breath, cough, wheezing, and pleuritic chest pain, Abdomen/GI: Negative for abdominal pain, nausea, vomiting, diarrhea, and constipation, Back: Negative for injury and pain, : Negative for injury, bleeding, discharge, and swelling, MS/Extremity: Negative for injury and deformity, Skin: Negative for injury, rash, and discoloration, Neuro: Negative for headache, weakness, numbness, tingling, and seizure, Psych: Negative for depression, anxiety, suicide ideation, homicidal ideation, and hallucinations, Allergy/Immunology: Negative for hives, rash, and allergies, Endocrine: Negative for neck swelling, polydipsia, polyuria, polyphagia, and marked weight changes, Hematologic/Lymphatic: Negative for swollen nodes, abnormal bleeding, and unusual bruising. 16:16 Cardiovascular: Positive for palpitations. Exam: 16:16 Constitutional: This is a well developed, well nourished patient who is awake, alert, carley and in no acute distress. Head/Face: Normocephalic, atraumatic. Eyes: Pupils equal round and reactive to light, extra-ocular motions intact. Lids and lashes normal. Conjunctiva and sclera are non-icteric and not injected. Cornea within normal limits. Periorbital areas with no swelling, redness, or edema. ENT: Nares patent. No nasal discharge, no septal abnormalities noted. Tympanic membranes are normal and external auditory canals are clear. Oropharynx with no redness, swelling, or masses, exudates, or evidence of obstruction, uvula midline. Mucous membranes moist. Neck: Trachea midline, no thyromegaly or masses palpated, and no cervical lymphadenopathy. Supple, full range of motion without nuchal rigidity, or vertebral point tenderness. No Meningismus. Chest/axilla: Normal chest wall appearance and motion. Nontender with no deformity. No lesions are appreciated. Cardiovascular: Regular rate and rhythm with a normal S1 and S2. No gallops, murmurs, or rubs. Normal PMI, no JVD. No pulse deficits. Respiratory: Lungs have equal breath sounds bilaterally, clear to auscultation and percussion. No rales, rhonchi or wheezes noted. No increased work of breathing, no retractions or nasal flaring. Abdomen/GI: Soft, non-tender, with normal bowel sounds. No distension or tympany. No guarding or rebound. No evidence of tenderness throughout. Back: No spinal tenderness. No costovertebral tenderness. Full range of motion. Male : Normal genitalia with no discharge or lesions. Skin: Warm, dry with normal turgor. Normal color with no rashes, no lesions, and no evidence of cellulitis. MS/ Extremity: Pulses equal, no cyanosis. Neurovascular intact. Full, normal range of motion. Neuro: Awake and alert, GCS 15, oriented to person, place, time, and situation. Cranial nerves II-XII grossly intact. Motor strength 5/5 in all extremities. Sensory grossly intact. Cerebellar exam normal. Normal gait. Psych: Awake, alert, with orientation to person, place and time. Behavior, mood, and affect are within normal limits. 16:16 ECG was reviewed by the Attending Physician. Vital Signs: 14:21 BP 127 / 75; Pulse 94; Resp 18; Temp 99.4(O); Pulse Ox 100% ; Weight 122.92 kg; Height nj1 5 ft. 8 in. ; Pain 6/10; 14:30 BP 112 / 69; Pulse 67; Resp 16; Pulse Ox 99% on R/A; ko1 14:45 BP 105 / 75; Pulse 95; Resp 16; Pulse Ox 100% ; ko1 15:00 BP 121 / 74; Pulse 105; Resp 16; Pulse Ox 100% ; ko1 17:16 BP 107 / 46; Pulse 86; Resp 18; Temp 98.4(T); Pulse Ox 100% ; ko1 14:21 Body Mass Index 41.20 (122.92 kg, 172.72 cm) nj1 14:21 Pain Scale: Adult nj1 MDM: 14:[address] [facility] 16:19 Differential diagnosis: arrythmia, dehydration. Data reviewed: vital signs, nurses carley notes, lab test result(s), EKG, radiologic studies, plain films. Consideration of Admission/Observation Escalation of care including admission/observation considered. I considered the following discharge prescriptions or medication management in the emergency department Medications were administered in the Emergency Department. See MAR. Test considered but Not performed: CT: ct chest ro pe. Care significantly affected by the following chronic conditions: Diabetes, Congestive Heart Failure, gerd, ahuja, a fib. Counseling: I had a detailed discussion with the patient and/or guardian regarding: the historical points, exam findings, and any diagnostic results supporting the discharge/admit diagnosis, lab results, radiology results, the need for outpatient follow up, for definitive care, a valving machine operator, a family practitioner. 17:50 ED course: 2 caths neg for cad, hx follow up with cardiology, windy sanabria and carley sent interference is/was artifact, cont all usual meds, no changes. 02/23 14:36 Order name: Basic Metabolic Panel; Complete Time: 16:21 [facility] 02/23 14:36 Order name: CBC with Diff; Complete Time: 15:51 [facility] 02/23 14:36 Order name: LFT's; Complete Time: 16:21 [facility] 02/23 14:36 Order name: Magnesium; Complete Time: 16:21 [facility] 02/23 14:36 Order name: NT PRO-BNP; Complete Time: 16:21 [facility] 02/23 14:36 Order name: PT-INR; Complete Time: 15:51 [facility] 02/23 14:36 Order name: Troponin HS; Complete Time: 16:21 [facility] 02/23 14:36 Order name: UDS; Complete Time: 15:51 [facility] 02/23 14:36 Order name: TSH; Complete Time: 16:21 [facility] 02/23 14:36 Order name: ETOH Level; Complete Time: 16:21 [facility] 02/23 16:15 Order name: Troponin High Sensitivity: 530pm; Complete Time: 17:50 [facility] 02/23 14:36 Order name: XRAY Chest (1 view); Complete Time: 15:38 [facility] 02/23 14:36 Order name: EKG; Complete Time: 14:37 [facility] 02/23 17:02 Order name: EKG; Complete Time: 17:02 [facility] 02/23 14:36 Order name: Cardiac monitoring; Complete Time: 14:53 [facility] 02/23 14:36 Order name: EKG - Nurse/Tech; Complete Time: 15:15 [facility] 02/23 14:36 Order name: IV Saline Lock; Complete Time: 15:15 [facility] 02/23 14:36 Order name: Labs collected and sent; Complete Time: 15:15 [facility] 02/23 14:36 Order name: O2 Per Protocol; Complete Time: 14:52 [facility] 02/23 14:36 Order name: O2 Sat Monitoring; Complete Time: 14:52 [facility] 02/23 17:02 Order name: EKG - Nurse/Tech; Complete Time: 17:22 [facility] 02/23 17:02 Order name: Vital Signs: temp; Complete Time: 17:15 [facility] EC:16 Rate is 97 beats/min. Rhythm is regular. QRS Fluker is Normal. MT interval is normal. QRS carley interval is normal. QT interval is normal. No Q waves. T waves are Inverted in leads I, II, aVF. ST Segment is depressed in leads V3, V4, V5, V6. Clinical impression: Abnormal EKG without significant change and No evidence of ischemia. Interpreted by me. Reviewed by me. Administered Medications: 15:14 Drug: Magnesium Sulfate IVPB 1 grams Route: IVPB; Infused Over: 1 hrs; Site: right bp antecubital; 15:14 Drug: NS 0.9% IV 1000 ml Route: IV; Rate: 125 ml/hr; Site: right antecubital; bp 16:42 Drug: Potassium PO Effervescent Tablet 50 mEq Route: PO; ko1 17:15 Drug: Metoprolol PO 50 mg Route: PO; ko1 Disposition Summary: 02/23/23 17:50 Discharge Ordered Location: Home carley Problem: new carley Symptoms: have improved carley Condition: Stable carley Diagnosis - Palpitations carley - Hypokalemia carley Followup: carley - With: Private Physician - When: 1 - 2 days - Reason: Recheck today's complaints, Continuance of care, Re-evaluation by your physician Followup: carley - With: - When: 2 - 3 days - Reason: Recheck today's complaints, Re-evaluation by your physician Discharge Instructions: - Discharge Summary Sheet carley - Potassium Content of Foods carley - Palpitations carley - Palpitations, [id number] carley - Hypokalemia carley Forms: - Medication Reconciliation Form carley - Thank You Letter carley - Antibiotic Education carley - Prescription Opioid Use carley Signatures: Dispatcher [employer] Jones Wiggins MD MD cha Peltier, Brian, RN RN Niurka Abel RN RN ko1 Margaret Parker RN RN nj1
[2023-02-23 18:33] VITALS: O2SAT 100
[2023-02-23 18:35] VITALS: BP 107/46; TEMP 98.4
--- NOTE | 2023-02-26 07:14 | EKG ---
Test Date: 2023-02-23 Test Time: 17:18:55 Military Technology Specialist: BP MEASUREMENT RESULTS: Intervals: Rate: 71 LA: 140 QRSD: 94 QT: 352 QTc: 382 Range: P: 20 LA: 140 QRS: 30 T: 26 INTERPRETIVE STATEMENTS: Normal sinus rhythm Normal ECG Compared to ECG 02/23/2023 15:03:40 ST (T wave) deviation no longer present Electronically Signed On 02-26-23 07:07:30 CDT by Tod Wade
--- NOTE | 2023-02-26 07:14 | EKG ---
Test Date: 2023-02-23 Test Time: 15:03:40 Data Librarian: BP MEASUREMENT RESULTS: Intervals: Rate: 97 MN: 126 QRSD: 90 QT: 330 QTc: 419 [place]: P: 16 MN: 126 QRS: 28 T: -16 INTERPRETIVE STATEMENTS: Normal sinus rhythm Nonspecific ST and T wave abnormality Abnormal ECG Compared to ECG 02/01/2023 04:37:22 ST (T wave) deviation now present Electronically Signed On 02-26-23 07:07:36 CDT by Tod Wade
== END 2023-02-23 18:07 | disposition home or self-care (01) ==
LOC: ER 14:00
DX: E87.6 Hypokalemia (principal); I50.9 Heart failure, unspecified; I48.91 Unspecified atrial fibrillation; Z88.0 Allergy status to penicillin; Z88.3 Allergy status to other anti-infective agents; Z88.5 Allergy status to narcotic agent; Z91.040 Latex allergy status; Z91.048 Other nonmedicinal substance allergy status
CPT/HCPCS: 93005 ×2; 85025; 80048; 36415; 83735; 85610; 80076; 84443; 84484 ×2; 83880; 80307; 71045; 96374; 99285; J3475; J7030; G0480

== ENCOUNTER 2023-02-26 12:32 | Emergency (ER) | payer OTHER ==
[2023-02-26] MEDS ORDERED: METOPROLOL TARTRATE 5 MG/5 ML INJ IV ONE ×2 (13:45→14:54)
--- NOTE | 2023-02-26 14:06 | RAD REPORT ---
EXAM DESCRIPTION: RADChest Single View02/26/2023 1:15 pm CLINICAL HISTORY: CHEST PAIN COMPARISON: Chest Single View dated 02/23/2023; Chest Single View dated 02/01/2023; Chest Single View d ated 01/25/2023; Chest Single View dated 08/21/2022 TECHNIQUE: Portable AP view of the chest. FINDINGS: The lungs are clear. No pneumothorax or effusion. The cardiomediastinal contours are unre markable. Overlying metallic wires/pad/clips limit evaluation. Long segment thoracic spine fusion sc rews and rods in place. IMPRESSION: No acute cardiopulmonary process.
[2023-02-26 14:38] LABS: ALT/SGPT 33 U/L (16-61); AST/SGOT 14 U/L (15-37); Albumin 3.8 g/dL (3.4-5.0); Alkaline Phosphatase 110 U/L (45-117); BUN Blood Urea Nitrogen 11 mg/dL (7-18); Bicarbonate 25 mEq/L (21-32); Bilirubin Total 0.3 mg/dL (0.2-1.0); Glomerular Filtration Rate 110 ml/min (=/>90); Glucose Level 101 mg/dL (74-106); Magnesium 2.1 mg/dL (1.6-2.4); NT PRO-BNP 637 pg/mL (<125); Phosphorus 2.3 mg/dL (2.5-4.9); Protein, Total 7.5 g/dL (6.4-8.2); Sodium Level 138 mEq/L (136-145)
[2023-02-26 14:39] LABS: Troponin High Sensitivity < 3.0 pg/mL (<58.9)
[2023-02-26 14:43] LABS: Absolute Lymphocytes (CBC) 2.1 K/uL (0.7-4.9); Hematocrit 38.8 % (39.6-49.0); Lymphocytes % 27.3 % (15.3-44.8); MCV 79.9 fL (80-100); MPV 6.9 fL (7.6-11.3); RBC Red Blood Cell Count 4.86 M/uL (4.33-5.43)
[2023-02-26] MEDS ORDERED: ACETAMINOPHEN 500 MG TAB ONE (15:05)
--- NOTE | 2023-02-26 15:14 | ER ---
Nurse's Notes [facility] Name: Orlando Sanchez Age: 27 yrs Sex: Male : 1995 Arrival Date: 02/26/2023 Time: 12:32 Bed 14 Private MD: Diagnosis: Paroxysmal atrial fibrillation Presentation: 02/26 12:41 Chief complaint: Patient states: "Last year I went into organ failure, AFIB with RVR, mb9 urosepsis, and currently EF of 35%. I've been on the last vest ever since. The alarm went off 3 times today about 10 minutes ago. My project safety manager told me to come here because my HR was in the 160s. I'm having chest pain, SOB, weakness, and palpitations now". Coronavirus screen: Vaccine status: Patient reports receiving the 2nd dose of the covid vaccine. 12:41 Method Of Arrival: Wheelchair mb9 12:45 Ebola Screen: No symptoms or risks identified at this time. Initial Sepsis Screen: Does mb9 the patient meet any 2 criteria? No. Patient's initial sepsis screen is negative. Does the patient have a suspected source of infection? No. Patient's initial sepsis screen is negative. Risk Assessment: Do you want to hurt yourself or someone else? Patient reports no desire to harm self or others. Onset of symptoms was February 26, 2023. 12:45 Acuity: SURJIT 2 mb9 Historical: - Allergies: 12:46 Latex, Natural Rubber; mb9 12:46 Naproxen; mb9 12:46 Omnicef; mb9 12:46 PENICILLINS; mb9 12:46 Vancomycin; mb9 - PMHx: 12:46 Atrial fibrillation; Hernia; Congestive heart failure; Headaches; GERD; diabetes mb9 mellitus; - PSHx: 12:46 back SX x 2 heart caths; mb9 - Immunization history:: Adult Immunizations up to date. - Social history:: Smoking status: Patient denies any tobacco usage or history of. Screenin:00 [facility] ED Fall Risk Assessment (Adult) History of falling in the last 3 months, ko1 including since admission No falls in past 3 months (0 pts) Confusion or Disorientation No (0 pts) Intoxicated or Sedated No (0 pts) Impaired Gait No (0 pts) Mobility Assist Device Used No (0 pt) Altered Elimination No (0 pt) Score/Fall Risk Level 0 - 2 = Low Risk Oriented to surroundings, Maintained a safe environment, Educated pt \\T\\ family on fall prevention, incl call for assistance when getting out of bed, Assessed \\T\\ reinforced patient's understanding of fall precautions, Provided non-skid footwear, Hourly rounding (assess needs \\T\\ fall precautionary measures) done, Used ambulatory aids as needed (educated on \\T\\ assisted with), Used gait belt as appropriate. Abuse screen: Denies threats or abuse. Denies injuries from another. Nutritional screening: No deficits noted. Tuberculosis screening: No symptoms or risk factors identified. Assessment: 13:00 General: Appears in no apparent distress. comfortable, Behavior is cooperative, ko1 appropriate for age, anxious. Pain: Denies pain. Neuro: No deficits noted. Cardiovascular: Reports palpitations. Respiratory: No deficits noted. GI: No deficits noted. : No deficits noted. EENT: No deficits noted. Derm: No deficits noted. Musculoskeletal: No deficits noted. Vital Signs: 12:45 BP 135 / 81; Pulse 142; Resp 22; Temp 98.2; Pulse Ox 100% ; Weight 97.52 kg; Height 5 mb9 ft. 7 in. ; 13:00 BP 112 / 63; Pulse 114; Resp 18; Pulse Ox 99% on R/A; ko1 13:30 BP 107 / 83; Pulse 100; Resp 16; Pulse Ox 99% ; ko1 14:00 BP 116 / 86; Pulse 103; Resp 16; Pulse Ox 100% ; ko1 14:30 BP 105 / 78; Pulse 84; Resp 16; Pulse Ox 99% ; ko1 15:00 BP 100 / 77; Pulse 84; Resp 16; Pulse Ox 100% ; ko1 16:12 BP 106 / 72; Pulse 64; Resp 18; Pulse Ox 99% ; ko1 17:16 BP 110 / 78; Pulse 71; Resp 18; Pulse Ox 99% ; ko1 18:45 BP 109 / 89; Pulse 97; Resp 18; Pulse Ox 97% on R/A; ko1 12:45 Body Mass Index 33.67 (97.52 kg, 170.18 cm) mb9 ED Course: 12:37 Patient arrived in ED. kj1 12:41 Niurka Alvarado, GENESIS is Primary Nurse. ko1 12:45 Osvaldo Tay MD is Attending Physician. bs3 12:46 Triage completed. mb9 12:46 Arm band placed on. mb9 13:16 XRAY Chest (1 view) In Process Unspecified. EDMS 15:00 Patient has correct armband on for positive identification. Placed in gown. Bed in low ko1 position. Call light in reach. Side rails up X 1. Client placed on continuous cardiac and pulse oximetry monitoring. NIBP monitoring applied. traveling phlebotomist on. Door closed. Noise minimized. Lights dimmed. Warm blanket given. 15:00 No provider procedures requiring assistance completed. ko1 15:10 Inserted saline lock: 22 gauge in right antecubital area, using aseptic technique. ko1 Blood collected. 15:24 initiated transfer to [facility]. bd 19:02 Patient transferred, IV remains in place. ko1 Administered Medications: 14:38 Drug: Metoprolol IVP 2.5 mg Route: IVP; Site: right antecubital; ko1 15:57 Follow up: Response: No adverse reaction; Marked relief of symptoms ko1 14:55 Drug: Acetaminophen PO 1000 mg Route: PO; ko1 15:56 Follow up: Response: No adverse reaction; Pain is decreased ko1 15:06 Drug: Metoprolol IVP 5 mg Route: IVP; Site: right antecubital; ko1 15:15 Drug: Metoprolol IVP 5 mg Route: IVP; Site: right antecubital; ko1 15:25 Drug: Metoprolol IVP 5 mg Route: IVP; Site: right antecubital; ko1 Medication: 15:00 VIS not applicable for this client. ko1 Outcome: 15:14 ER care complete, transfer ordered by . bs3 19:02 Transferred by ground EMS [place]. to [facility], Transfer form ko1 completed. X-rays sent w/ patient. 19:02 Condition: stable 19:02 Instructed on the need for transfer. 19:04 Patient left the ED. ko1 Signatures: Dispatcher [employer] EDMS Gabriella Live brian SalgadoVioletta kj1 Osvaldo Tay MD MD bs3 Niurka Alvarado RN RN ko1 Sharmaine Blanton RN RN mb9 Corrections: (The following items were deleted from the chart) 12:46 12:41 Chief complaint: Patient states: "Last year I went into organ failure, AFIB with mb9 RVR, urosepsis, and currently EF of 35%. I've been on the last vest ever since. The alarm went off 3 times today about 10 minutes ago. My project safety manager told me to come here because my HR was in the 160s" mb9
--- NOTE | 2023-02-26 15:14 | EDPHYS ---
Physician Documentation [facility] Name: Orlando Sanchez Age: 27 yrs Sex: Male : 1995 Arrival Date: 02/26/2023 Time: 12:32 Bed 14 Private MD: ED Physician Osvaldo Tay HPI: 02/26 14:01 This 27 yrs old Male presents to ER via Wheelchair with complaints of AFIB. bs3 14:01 History of A-fib on Xarelto and metoprolol, CHF, headaches, status postcardiac arrest bs3 currently with a ZOLL LifeVest presents malaise and an alert that he was in vtach/vfib. He did not pass out, he spoke with zoll who advised him to come in. . Historical: - Allergies: 12:46 Latex, Natural Rubber; mb9 12:46 Naproxen; mb9 12:46 Omnicef; mb9 12:46 PENICILLINS; mb9 12:46 Vancomycin; mb9 - PMHx: 12:46 Atrial fibrillation; Hernia; Congestive heart failure; Headaches; GERD; diabetes mb9 mellitus; - PSHx: 12:46 back SX x 2 heart caths; mb9 - Immunization history:: Adult Immunizations up to date. - Social history:: Smoking status: Patient denies any tobacco usage or history of. ROS: 14:05 Constitutional: Negative for fever, chills bs3 14:05 All other systems are negative. Exam: 14:45 Constitutional: This is a well developed, well nourished patient who is awake, alert, bs3 and in no acute distress. Head/Face: Normocephalic, atraumatic. Eyes: Pupils equal round and reactive to light, extra-ocular motions intact. Lids and lashes normal. Chest/axilla: Normal chest wall appearance and motion. Nontender with no deformity. No lesions are appreciated. Cardiovascular: Tachycardic, no murmur Respiratory: Lungs have equal breath sounds bilaterally, clear to auscultation, no respiratory distress Skin: Warm, dry with normal turgor. Normal color with no rashes, no lesions, and no evidence of cellulitis. MS/ Extremity: Pulses equal, no cyanosis. Neurovascular intact. Full, normal range of motion. Neuro: Awake and alert, GCS 15, oriented to person, place, time, and situation. Cranial nerves II-XII grossly intact. Motor strength 5/5 in all extremities. Sensory grossly intact. Vital Signs: 12:45 BP 135 / 81; Pulse 142; Resp 22; Temp 98.2; Pulse Ox 100% ; Weight 97.52 kg; Height 5 mb9 ft. 7 in. ; 13:00 BP 112 / 63; Pulse 114; Resp 18; Pulse Ox 99% on R/A; ko1 13:30 BP 107 / 83; Pulse 100; Resp 16; Pulse Ox 99% ; ko1 14:00 BP 116 / 86; Pulse 103; Resp 16; Pulse Ox 100% ; ko1 14:30 BP 105 / 78; Pulse 84; Resp 16; Pulse Ox 99% ; ko1 15:00 BP 100 / 77; Pulse 84; Resp 16; Pulse Ox 100% ; ko1 16:12 BP 106 / 72; Pulse 64; Resp 18; Pulse Ox 99% ; ko1 17:16 BP 110 / 78; Pulse 71; Resp 18; Pulse Ox 99% ; ko1 18:45 BP 109 / 89; Pulse 97; Resp 18; Pulse Ox 97% on R/A; ko1 12:45 Body Mass Index 33.67 (97.52 kg, 170.18 cm) mb9 MDM: 12:45 Patient medically screened. bs3 14:45 Differential diagnosis: arrythmia, dehydration, stress disorder, 27-year-old here for bs3 evaluation of abnormal heart rate I [facility] report which shows that he is having intermittent SVT I discussed the case with Dr. Ana Lambert who reviewed his workup and is seeing him tomorrow for paroxysmal afib, d/w Dr. Tuttle covering for his pcp who rec transfer to [facility] given his advanced heart failure, his life vest, paraoxysmal svt. D/w patient who is agreeable to the plan. ECG here is sinus [address] elevation or depression qtc normal. Data reviewed: vital signs, nurses notes. 15:13 ED course: Given the patient's advanced heart failure his LifeVest and possible need bs3 for AICD will transfer to [facility] for continuity of care and advanced heart failure and electrophysiology. 15:32 ED course: discussed with Dr. Acevedo who accepted him at [facility]. bs3 02/26 12:52 Order name: CBC with Diff; Complete Time: 14:49 bs3 02/26 12:52 Order name: Comprehensive Metabolic Panel; Complete Time: 14:41 bs3 02/26 12:52 Order name: Magnesium; Complete Time: 14:41 3 02/26 12:52 Order name: Phosphorus; Complete Time: 14:41 3 02/26 12:52 Order name: Troponin High Sensitivity; Complete Time: 14:41 3 02/26 12:52 Order name: BNP; Complete Time: 14:41 3 02/26 12:52 Order name: XRAY Chest (1 view); Complete Time: 14:19 bs3 02/26 12:52 Order name: Telemetry; Complete Time: 13:36 bs3 02/26 14:05 Order name: EKG - Nurse/Tech; Complete Time: 14:29 bs3 Administered Medications: 14:38 Drug: Metoprolol IVP 2.5 mg Route: IVP; Site: right antecubital; ko1 15:57 Follow up: Response: No adverse reaction; Marked relief of symptoms ko1 14:55 Drug: Acetaminophen PO 1000 mg Route: PO; ko1 15:56 Follow up: Response: No adverse reaction; Pain is decreased ko1 15:06 Drug: Metoprolol IVP 5 mg Route: IVP; Site: right antecubital; ko1 15:15 Drug: Metoprolol IVP 5 mg Route: IVP; Site: right antecubital; ko1 15:25 Drug: Metoprolol IVP 5 mg Route: IVP; Site: right antecubital; ko1 Disposition Summary: 02/26/23 15:14 Transfer Ordered Transfer Location: [facility] bs3 Reason: Higher level of care bs3 Condition: Stable bs3 Problem: new bs3 Symptoms: have improved bs3 Accepting Physician: [facility](02/26/23 19:04) ko1 Diagnosis - Paroxysmal atrial fibrillation bs3 Forms: - Medication Reconciliation Form bs3 - SBAR form bs3 Signatures: Dispatcher [employer] Osvaldo Leon MD MD bs3 Niurka Alvarado RN RN ko1 Sharmaine Blanton RN RN mb9 Corrections: (The following items were deleted from the chart) 14:04 14:01 History of A-fib on Xarelto and metoprolol, CHF, headaches, status postcardiac bs3 arrest currently with a ZOLL LifeVest presents malaise and an alert that he was in vtach/vfib. . bs3 19:04 15:14 [facility] bs3 ko1
[2023-02-26 19:52] VITALS: TEMP 98.2
[2023-02-26 20:04] VITALS: BP 109/89; O2SAT 97
--- NOTE | 2023-02-27 12:09 | EKG ---
Test Date: 2023-02-26 Test Time: 14:18:51 Garment Form Assembler: HILLARY MEASUREMENT RESULTS: Intervals: Rate: 100 NH: 126 QRSD: 90 QT: 336 QTc: 433 [place]: P: 18 NH: 126 QRS: 22 T: 3 INTERPRETIVE STATEMENTS: Normal sinus rhythm Nonspecific T wave abnormality Abnormal ECG Compared to ECG 02/23/2023 17:18:55 T-wave abnormality now present Electronically Signed On 02-27-23 12:06:06 CDT by Tod Wade
== END 2023-02-26 19:04 | disposition short-term general hospital (02) ==
LOC: ER 12:32
DX: I48.0 Paroxysmal atrial fibrillation (principal); Z79.01 Long term (current) use of anticoagulants; I50.9 Heart failure, unspecified; Z88.0 Allergy status to penicillin; Z88.1 Allergy status to other antibiotic agents; Z88.3 Allergy status to other anti-infective agents; Z88.5 Allergy status to narcotic agent; Z91.040 Latex allergy status; Z91.048 Other nonmedicinal substance allergy status
CPT/HCPCS: 36415; 71045; 80053; 83735; 83880; 84100; 84484; 85025; 93005; 96374; 99285

== ENCOUNTER 2023-04-24 17:46 | Emergency (ER) | payer OTHER, SELFPAY ==
[2023-04-24 18:25] LABS: Absolute Lymphocytes (CBC) 3.3 K/uL (0.7-4.9); Hematocrit 40.8 % (39.6-49.0); MPV 6.7 fL (7.6-11.3); RBC Red Blood Cell Count 4.98 M/uL (4.33-5.43)
[2023-04-24 18:26] LABS: Protime INR 1.3
[2023-04-24 18:46] LABS: Albumin 3.9 g/dL (3.4-5.0); Bilirubin Direct 0.1 mg/dL (0-0.2); Bilirubin Indirect, Calculated 0.3 mg/dL (0.2-0.8); Bilirubin Total 0.4 mg/dL (0.2-1.0); Protein, Total 7.9 g/dL (6.4-8.2); Troponin High Sensitivity 3.6 pg/mL (<58.9)
--- NOTE | 2023-04-24 18:55 | RAD REPORT ---
EXAM DESCRIPTION: RAD - Chest Single View - 04/24/2023 6:45 pm CLINICAL HISTORY: CHEST PAIN COMPARISON: Chest Single View dated 02/26/2023; Chest Single View dated 02/23/2023; Chest Single View dated 02/01/2023; Chest Single View dated 01/25/2023 FINDINGS: Lines: None. Lungs: No evidence of edema or pneumonia. Pleural: No significant pleural effusions or pneumothorax. Cardiac: The heart size is within normal limits. Mediastinum: Within normal limits. Bones: No acute fractures. Nicholas rods in the spine. Other: None IMPRESSION: No acute cardiopulmonary disease.
[2023-04-24] MEDS ORDERED: ONDANSETRON 4 MG/2 ML VIAL ONE (19:02)
[2023-04-24] MEDS ORDERED: MORPHINE 4 MG/ML SYR ONE (19:07)
[2023-04-24] MEDS ORDERED: NA CHLORIDE 0.9% 0 ML ONE (20:10)
[2023-04-24] MEDS ORDERED: POTASSIUM 25 MEQ EFFERV TAB ONE (20:10)
[2023-04-24] MEDS ORDERED: KCL 20 MEQ/100 mL IVPB 100 ML IV ONE (20:11)
[2023-04-24] MEDS ORDERED: NA CHLORIDE 0.9% 100 ML ONE (20:13)
--- NOTE | 2023-04-24 20:41 | RAD REPORT ---
EXAM DESCRIPTION: CT - Chest For Pe Angio - 04/24/2023 8:26 pm CLINICAL HISTORY: CHEST PAIN COMPARISON: Chest For Pe Angio dated 08/21/2022 TECHNIQUE: Dynamically enhanced axial 3 mm thick images of the chest were obtained during administra tion of <100> mL Isovue 370 IV contrast. Coronal and oblique reconstruction images were generated and reviewed. Exam utilizes a protocol for optimal evaluation of pulmonary arterial tree. Maximum intensity projections 3D imaging was utilized All CT scans are performed using dose optimization technique as appropriate and may include automated exposure control or mA/KV adjustment according to patient size. FINDINGS: Chest Wall: No suspicious thyroid nodules or pathologic lymphadenopathy. Lungs: No acute abnormality. Pleura: No significant effusions or pneumothorax. Mediastinum/ole: No pathologic lymphadenopathy. Moderate hiatal hernia. Pulmonary arteries/Aorta: No filling defect identified. No aortic aneurysm. Heart: No significant pericardial effusion. Normal heart size. Upper abdomen: No acute abnormality. Bones: No acute abnormality. Fusion hardware in the spine. IMPRESSION: Negative for pulmonary embolism. No other acute findings in the chest .
--- NOTE | 2023-04-24 23:47 | EDPHYS ---
Physician Documentation [facility] Name: Orlando Sanchez Age: 28 yrs Sex: Male : 1995 Arrival Date: 04/24/2023 Time: 17:46 Bed 3 Private MD: Tatiana San ED Physician Mishel Del Angel HPI: 04/24 18:10 This 28 yrs old Male presents to ER via Ambulatory with complaints of Chest Pain, cp Irregular Pulse - afib, Vomiting. 18:10 The patient or guardian reports chest pain that is located primarily in the anterior cp chest wall. 18:10 The patient presents with a history of irregular heart beat, heart racing. Context: The cp symptoms occur at rest. 18:10 Onset: The symptoms/episode began/occurred today. cp 18:10 Duration: The patient or guardian reports a single episode, that is still ongoing, and cp unchanged. The pain does not radiate. Associated signs and symptoms: Pertinent positives: nausea, SOB, vomiting, Pertinent negatives: fever, syncope. Patient reports PMHX significant for a-fib and that he is scheduled for an ablation next week. Historical: - Allergies: 18:00 Latex, Natural Rubber; aa5 18:00 Naproxen; aa5 18:00 Omnicef; aa5 18:00 PENICILLINS; aa5 18:00 Vancomycin; aa5 - PMHx: 18:00 Atrial fibrillation; Congestive heart failure; diabetes mellitus; GERD; Headaches; aa5 Hernia; - PSHx: 18:00 back SX x 2 heart caths; aa5 - Immunization history:: Adult Immunizations up to date. - Social history:: Smoking status: unknown. ROS: 18:15 Constitutional: Negative for body aches, chills, fever, poor PO intake. cp 18:15 Cardiovascular: Positive for chest pain, palpitations, Negative for edema. cp 18:15 Eyes: Negative for injury, pain, redness, and discharge. cp 18:15 ENT: Negative for drainage from ear(s), ear pain, sore throat, difficulty swallowing, difficulty handling secretions. 18:15 Respiratory: Positive for shortness of breath, Negative for cough, wheezing. 18:15 Abdomen/GI: Positive for nausea and vomiting, Negative for abdominal pain, diarrhea, constipation. 18:15 Back: Negative for pain at rest, pain with movement, radiated pain. 18:15 : Negative for urinary symptoms, testicular pain 18:15 Neuro: Negative for altered mental status, dizziness, headache, syncope, weakness. Exam: 18:08 ECG was reviewed by the Attending Physician. cp 18:20 Constitutional: The patient appears in no acute distress, alert, awake, cp non-diaphoretic, non-toxic, well developed, well nourished, obese, uncomfortable. 18:20 Head/Face: Normocephalic, atraumatic. cp 18:20 Eyes: Periorbital structures: appear normal, Conjunctiva: normal, no exudate, no injection, Sclera: no appreciated abnormality, Lids and lashes: appear normal, bilaterally. 18:20 ENT: External ear(s): are unremarkable, Nose: is normal, Mouth: Lips: moist, Oral mucosa: pink and intact, moist, Posterior pharynx: is normal, airway is patent, no erythema, no exudate. 18:20 Neck: ROM/movement: is normal, is supple, without pain, no range of motions limitations. 18:20 Chest/axilla: Inspection: normal. 18:20 Cardiovascular: Rate: tachycardic, Rhythm: regular, Edema: is not appreciated, JVD: is not appreciated. 18:20 Respiratory: the patient does not display signs of respiratory distress, Respirations: normal, no use of accessory muscles, no retractions, labored breathing, is not present, Breath sounds: are clear throughout, no decreased breath sounds, no stridor, no wheezing. 18:20 Abdomen/GI: Inspection: abdomen appears normal, Palpation: abdomen is soft and non-tender, in all quadrants. 18:20 Back: pain, is absent, ROM is normal. 18:20 Neuro: Orientation: to person, place \T\ time. Mentation: is normal, Cerebellar function: is grossly normal, Motor: moves all fours, strength is normal, Sensation: is normal. 22:40 ECG was reviewed by the Attending Physician. cp Vital Signs: 17:59 BP 148 / 67; Pulse 120; Resp 24 S; Temp 98.7(O); Pulse Ox 98% on R/A; aa5 18:10 BP 112 / 71; Pulse 106; Resp 18; Pulse Ox 100% on 2 lpm NC; eh3 18:30 BP 112 / 74; Pulse 98; Resp 20; Pulse Ox 100% on 2 lpm NC; eh3 19:00 BP 95 / 68; Pulse 91; Resp 20; Pulse Ox 100% on 2 lpm NC; eh3 21:06 BP 104 / 64; Pulse 68; Resp 17; Pulse Ox 99% on R/A; jb4 22:30 BP 108 / 66; Pulse 66; Resp 14; Pulse Ox 98% ; jb4 04/25 00:08 BP 117 / 71; Pulse 56; Resp 18; Pulse Ox 99% on R/A; MDM: 04/24 17:59 Patient medically screened. cp 19:00 Differential diagnosis: acute myocardial infarction, acute pericarditis, anxiety, cp arrythmia, pericarditis, pleurisy, pneumonia, pneumothorax, stable angina, unstable angina. 23:45 Data reviewed: vital signs, nurses notes, lab test result(s), EKG, radiologic studies, cp CT scan, plain films. 23:45 Consideration of Admission/Observation Escalation of care including cp admission/observation considered. I considered the following discharge prescriptions or medication management in the emergency department Medications were administered in the Emergency Department. See MAR. Independent interpretation of the following test(s) in the Emergency Department EKG: See my EKG interpretation above X-Ray: My interpretation is chest image negative for infiltrates. Care significantly affected by the following chronic conditions: Diabetes, Congestive Heart Failure. Counseling: I had a detailed discussion with the patient and/or guardian regarding: the historical points, exam findings, and any diagnostic results supporting the discharge/admit diagnosis, lab results, radiology results, the need for outpatient follow up, a spinner continuous, to return to the emergency department if symptoms worsen or persist or if there are any questions or concerns that arise at home. Response to treatment: the patient's symptoms have markedly improved after treatment, and as a result, I will discharge patient. 04/24 18:06 Order name: Basic Metabolic Panel; Complete Time: 18:57 cp 04/24 18:57 Interpretation: Normal except: K 3.0; GLUC 142; GFR 87. cp 04/24 18:06 Order name: CBC with Diff; Complete Time: 18:57 cp 04/24 18:06 Order name: LFT's; Complete Time: 18:57 cp 04/24 18:06 Order name: Magnesium; Complete Time: 18:57 cp 04/24 18:06 Order name: NT PRO-BNP; Complete Time: 18:57 cp 04/24 18:06 Order name: PT-INR; Complete Time: 18:57 cp 04/24 18:06 Order name: Troponin HS; Complete Time: 18:57 cp 04/24 21:40 Order name: Troponin High Sensitivity; Complete Time: 23:37 cp 04/24 18:06 Order name: XRAY Chest (1 view); Complete Time: 18:57 cp 04/24 20:03 Order name: CT Chest For PE Angio; Complete Time: 21:05 cp 04/24 21:06 Interpretation: Report reviewed. 04/24 18:06 Order name: EKG; Complete Time: 18:07 cp 04/24 21:40 Order name: EKG; Complete Time: 21:40 cp 04/24 18:06 Order name: Cardiac monitoring; Complete Time: 18:46 cp 04/24 18:06 Order name: EKG - Nurse/Tech; Complete Time: 18:46 cp 04/24 18:06 Order name: IV Saline Lock; Complete Time: 18:46 cp 04/24 18:06 Order name: Labs collected and sent; Complete Time: 18:46 cp 04/24 18:06 Order name: O2 Per Protocol; Complete Time: 18:46 cp 04/24 18:06 Order name: O2 Sat Monitoring; Complete Time: 18:46 cp 04/24 21:40 Order name: EKG - Nurse/Tech; Complete Time: 22:57 cp EC:08 Rate is 113 beats/min. Rhythm is regular. TN interval is normal. QRS interval is cp normal. QT interval is normal. Interpreted by me. Reviewed by me. 22:40 Rate is 61 beats/min. Rhythm is regular. TN interval is normal. QRS interval is normal. cp QT interval is normal. T waves are Inverted in lead aVR. Interpreted by me. Reviewed by me. Administered Medications: 18:30 Drug: Ondansetron IVP 4 mg Route: IVP; Site: right antecubital; 3 19:11 Drug: morphine IVP or IV 4 mg Route: IVP; Infused Over: 4 mins; Site: right antecubital;eh3 20:13 Drug: Potassium Chloride IV 20 mEq Route: IV; Rate: calculated rate; Site: right jb4 antecubital; 20:13 Drug: Potassium PO Effervescent Tablet 50 mEq Route: PO; jb4 Disposition Summary: 04/24/23 23:46 Discharge Ordered Location: Home cp Problem: new cp Symptoms: have improved cp Condition: Stable cp Diagnosis - Chest pain, unspecified cp - Palpitations cp - Hypokalemia cp Followup: cp - With: Private Physician - When: 2 - 3 days - Reason: Recheck today's complaints Discharge Instructions: - Discharge Summary Sheet cp - Nonspecific Chest Pain, Adult cp - Potassium Content of Foods cp - Palpitations cp - Aspirin and Your Heart cp - Hypokalemia cp Forms: - Medication Reconciliation Form cp - Thank You Letter cp - Antibiotic Education cp - Prescription Opioid Use cp - Patient Portal Instructions cp Prescriptions: - Potassium Chloride 10 mEq Oral capsule, extended release - take 2 tablet by ORAL route once daily; 6 tablet; Refills: 0, Product Selection cp Permitted Signatures: Dispatcher [employer] Siomara Rome RN RN aa5 Jones Chaparro PA PA cp Duke Macdonald, RN RN jb4 Ammy Kurtz RN RN eh3
--- NOTE | 2023-04-24 23:47 | ER ---
Nurse's Notes [facility] Name: Orlando Sanchez Age: 28 yrs Sex: Male : 1995 Arrival Date: 04/24/2023 Time: 17:46 Bed 3 Private MD: Tatiana San Diagnosis: Chest pain, unspecified;Palpitations;Hypokalemia Presentation: 04/24 17:59 Chief complaint: Patient states: "I haven't felt well today and my smart watch was aa5 telling me my heart rate was over 150 bpm for longer than 10 minutes". Pt c/o chest pain, SOB, and lightheaded. Scheduled for cardiac abrasion in 2 weeks. Coronavirus screen: shortness of breath. Ebola Screen: Patient denies travel to an Ebola-affected area in the 21 days before illness onset. Initial Sepsis Screen: Does the patient meet any 2 criteria? RR > 20 per min. HR > 90 bpm. Does the patient have a suspected source of infection? No. Patient's initial sepsis screen is negative. Risk Assessment: Do you want to hurt yourself or someone else? Patient reports no desire to harm self or others. Onset of symptoms was April 24, 2023. 17:59 Acuity: SURJIT 2 aa5 17:59 Method Of Arrival: Ambulatory aa5 Historical: - Allergies: 18:00 Latex, Natural Rubber; aa5 18:00 Naproxen; aa5 18:00 Omnicef; aa5 18:00 PENICILLINS; aa5 18:00 Vancomycin; aa5 - PMHx: 18:00 Atrial fibrillation; Congestive heart failure; diabetes mellitus; GERD; Headaches; aa5 Hernia; - PSHx: 18:00 back SX x 2 heart caths; aa5 - Immunization history:: Adult Immunizations up to date. - Social history:: Smoking status: unknown. Screenin:00 [facility] ED Fall Risk Assessment (Adult) Score/Fall Risk Level 0 - 2 = Low Risk. Abuse eh3 screen: Denies threats or abuse. Denies injuries from another. Nutritional screening: No deficits noted. Tuberculosis screening: No symptoms or risk factors identified. Assessment: 18:00 General: Appears in no apparent distress. uncomfortable, Behavior is calm, cooperative, eh3 appropriate for age. Pain: Complains of pain in anterior aspect of left upper chest Pain does not radiate. Pain began 1 day ago. Neuro: Level of Consciousness is awake, alert, obeys commands, Oriented to person, place, time, situation. Cardiovascular: Capillary refill < 3 seconds Patient's skin is warm and dry. Respiratory: Airway is patent Respiratory effort is even, unlabored, Respiratory pattern is regular, symmetrical. GI: Abdomen is round non-distended. Derm: Skin is healthy with good turgor. Musculoskeletal: Circulation, motion, and sensation intact. 19:00 Reassessment: Patient appears in no apparent distress at this time. Patient and/or 3 family updated on plan of care and expected duration. Pain level reassessed. Patient is alert, oriented x 3, equal unlabored respirations, skin warm/dry/pink. 21:06 Reassessment: Patient appears in no apparent distress at this time. Patient and/or jb4 family updated on plan of care and expected duration. Pain level reassessed. Patient is alert, oriented x 3, equal unlabored respirations, skin warm/dry/pink. 22:30 Reassessment: Patient appears in no apparent distress at this time. Patient and/or jb4 family updated on plan of care and expected duration. Pain level reassessed. Patient is alert, oriented x 3, equal unlabored respirations, skin warm/dry/pink. Vital Signs: 17:59 BP 148 / 67; Pulse 120; Resp 24 S; Temp 98.7(O); Pulse Ox 98% on R/A; aa5 18:10 BP 112 / 71; Pulse 106; Resp 18; Pulse Ox 100% on 2 lpm NC; eh3 18:30 BP 112 / 74; Pulse 98; Resp 20; Pulse Ox 100% on 2 lpm NC; eh3 19:00 BP 95 / 68; Pulse 91; Resp 20; Pulse Ox 100% on 2 lpm NC; eh3 21:06 BP 104 / 64; Pulse 68; Resp 17; Pulse Ox 99% on R/A; jb4 22:30 BP 108 / 66; Pulse 66; Resp 14; Pulse Ox 98% ; jb4 04/25 00:08 BP 117 / 71; Pulse 56; Resp 18; Pulse Ox 99% on R/A; ED Course: 04/24 17:48 Patient arrived in ED. as 17:49 Tatiana San is Private Physician. as 17:59 Page, Jones, PA is PHCP. cp 17:59 Mishel Del Angel MD is Attending Physician. cp 17:59 Arm band placed on. aa5 18:00 Triage completed. aa5 18:00 Patient has correct armband on for positive identification. Bed in low position. Call 3 light in reach. Side rails up X2. Client placed on continuous cardiac and pulse oximetry monitoring. NIBP monitoring applied. 18:00 Oxygen administration via nasal cannula \\T\\ 2L/min. 3 18:02 EKG completed in triage. Results shown to MD. aa5 18:46 XRAY Chest (1 view) In Process Unspecified. EDMS 19:15 Report given to GENESIS Kessler. 3 19:58 Victoria Crenshaw RN is Primary Nurse. 3 20:28 CT Chest For PE Angio In Process Unspecified. EDTX 04/25 00:08 No provider procedures requiring assistance completed. IV discontinued, intact, kl bleeding controlled, No redness/swelling at site. Pressure dressing applied. Administered Medications: 04/24 18:30 Drug: Ondansetron IVP 4 mg Route: IVP; Site: right antecubital; eh3 19:11 Drug: morphine IVP or IV 4 mg Route: IVP; Infused Over: 4 mins; Site: right antecubital;eh3 20:13 Drug: Potassium Chloride IV 20 mEq Route: IV; Rate: calculated rate; Site: right jb4 antecubital; 20:13 Drug: Potassium PO Effervescent Tablet 50 mEq Route: PO; jb4 Outcome: 23:46 Discharge ordered by MD. 04/25 00:07 Discharged to home ambulatory. kl Condition: stable Discharge instructions given to patient, Instructed on discharge instructions, follow up and referral plans. Demonstrated understanding of instructions, follow-up care, medications, Prescriptions given X 1. 00:09 Patient left the ED. kl Signatures: Dispatcher [employer] EDTX Pamela Hale RN RN kl Martinez, Amelia as Calderon, Audri, RN RN aa5 Jones Chaparro PA PA cp Bryson, James, RN RN jb4 Victoria Crenshaw RN RN kd3 Ammy Kurtz RN RN 3 Corrections: (The following items were deleted from the chart) 04/24 18:01 17:59 Chief complaint: Patient states: "I haven't felt well today and my smart watch aa5 was telling me my heart rate was over 150 bpm". Pt c/o chest pain, SOB, and lightheaded. aa5 18:02 17:59 Initial Sepsis Screen: Does the patient meet any 2 criteria? HR > 90 bpm. Does aa5 the patient have a suspected source of infection? No. Patient's initial sepsis screen is negative. aa5
[2023-04-25 00:13] VITALS: TEMP 98.7
[2023-04-25 00:24] VITALS: BP 117/71; O2SAT 99
--- NOTE | 2023-04-25 13:23 | EKG ---
Test Date: 2023-04-24 Test Time: 22:34:04 Die Assembler: ALEENA MEASUREMENT RESULTS: Intervals: Rate: 61 LA: 132 QRSD: 96 QT: 398 QTc: 400 [place]: P: 30 LA: 132 QRS: 51 T: 4 INTERPRETIVE STATEMENTS: Normal sinus rhythm Normal ECG Compared to ECG 04/24/2023 22:31:25 Sinus bradycardia no longer present Electronically Signed On 04-25-23 13:22:47 CDT by Brendon Ross
--- NOTE | 2023-04-25 13:23 | EKG ---
Test Date: 2023-04-24 Test Time: 22:31:25 R D Manager: ALEENA MEASUREMENT RESULTS: Intervals: Rate: 58 MI: 138 QRSD: 96 QT: 392 QTc: 384 [place]: P: 40 MI: 138 QRS: 54 T: 21 INTERPRETIVE STATEMENTS: Sinus bradycardia Otherwise normal ECG Compared to ECG 04/24/2023 18:02:39 Sinus tachycardia no longer present Left ventricular hypertrophy no longer present Early repolarization no longer present Electronically Signed On 04-25-23 13:22:49 CDT by Brendon Ross
--- NOTE | 2023-04-25 13:25 | EKG ---
Test Date: 2023-04-24 Test Time: 18:02:39 Airplane Pilot [employer]ing: CHRISTOPHER MEASUREMENT RESULTS: Intervals: Rate: 113 OH: 124 QRSD: 92 QT: 312 QTc: 427 [place]: P: 20 OH: 124 QRS: 10 T: 18 INTERPRETIVE STATEMENTS: Sinus tachycardia Left ventricular hypertrophy with repolarization abnormality Abnormal ECG Compared to ECG 02/26/2023 14:18:51 Left ventricular hypertrophy now present Early repolarization now present Sinus rhythm no longer present T-wave abnormality no longer present Electronically Signed On 04-25-23 13:24:13 CDT by Brendon Ross
== END 2023-04-25 00:09 | disposition home or self-care (01) ==
LOC: ER 17:46
DX: R07.89 Other chest pain (principal); R00.2 Palpitations; E87.6 Hypokalemia; I50.9 Heart failure, unspecified; Z88.0 Allergy status to penicillin; Z88.3 Allergy status to other anti-infective agents; Z88.5 Allergy status to narcotic agent; Z91.040 Latex allergy status; Z91.048 Other nonmedicinal substance allergy status
CPT/HCPCS: 93005 ×3; 85025; 80048; 36415; 83735; 85610; 80076; 84484 ×2; 83880; 71275; 71045; 96375; 96374; 99285; Q9967; J3480; J2405; J7050

== ENCOUNTER 2023-04-30 05:36 | Emergency (ER) | payer OTHER ==
[2023-04-30 05:55] LABS: Absolute Lymphocytes (CBC) 3.4 K/uL (0.7-4.9); Hematocrit 39.2 % (39.6-49.0); Lymphocytes % 30.6 % (15.3-44.8); MCV 83.8 fL (80-100); MPV 6.7 fL (7.6-11.3); RBC Red Blood Cell Count 4.68 M/uL (4.33-5.43)
[2023-04-30 06:00] LABS: Protime INR 1.35
[2023-04-30] MEDS ORDERED: ALBUMIN HUMAN 25% 200 ML IV ONE (06:08)
[2023-04-30] MEDS ORDERED: ATROPINE SULF 1 MG/10 ML SYR IV ONE ×2 (06:08→08:04)
[2023-04-30] MEDS ORDERED: NA CHLORIDE 0.9% 1,000 ML ONE (06:08)
[2023-04-30 06:14] LABS: Albumin 3.7 g/dL (3.4-5.0); Bilirubin Direct 0.2 mg/dL (0-0.2); Bilirubin Indirect, Calculated 0.4 mg/dL (0.2-0.8); Bilirubin Total 0.6 mg/dL (0.2-1.0); Magnesium 2.4 mg/dL (1.6-2.4); Potassium 3.8 mEq/L (3.5-5.1); Protein, Total 7.3 g/dL (6.4-8.2); Troponin High Sensitivity 4.2 pg/mL (<58.9)
[2023-04-30] MEDS ORDERED: LIDOCAINE 1% 20 ML MDV ONE (06:27)
[2023-04-30] MEDS ORDERED: NOREPINEPHRINE BITARTRATE/D5W 4 MG/250 ML BAG IV ONE (07:01)
--- NOTE | 2023-04-30 07:02 | EDPHYS ---
Physician Documentation [facility] Name: Orlando Sanchez Age: 28 yrs Sex: Male : 1995 Arrival Date: 04/30/2023 Time: 05:36 Bed 2 Private MD: ED Physician Fuentes Perkins HPI: 04/30 06:04 This 28 yrs old Male presents to ER via EMS with complaints of hypotension, sp4 CHF . 06:54 28-year-old male with history of prior sepsis with congestive heart failure and cardiac sp4 arrest with residual heart failure atrial fibrillation also history of diabetes mellitus, headaches GERD, presents with EMS after he felt unwell dizzy and developed chest pain at home. Patient checked his blood pressure and it was low at home. EMS reported blood pressure was in the 60s systolic. EMS administered IV fluid brought patient here on arrival patient has not obtunded but hypotensive and bradycardic. EKG reveals junctional rhythm at the rate of 50 dropping into 30s, . Initial blood pressure 74/46, with bradycardia in the 40s. Emergent central line had to be started for resuscitation and Levophed infusion. . Historical: - Allergies: 05:38 Latex, Natural Rubber; as6 05:38 Naproxen; as6 05:38 Omnicef; as6 05:38 PENICILLINS; as6 05:38 Vancomycin; as6 - Home Meds: 05:38 pantoprazole 40 mg Oral granules delayed release for susp packet 2 times per day as6 [Active]; Aimovig Autoinjector 140 mg/mL subcutaneous Auto-Injector every month [Active]; albuterol sulfate 90 mcg/actuation Inhl HFA Aerosol Inhaler every 6 hours [Active]; ascorbic acid (vitamin C) 1,000 mg tablet 2 times per day [Active]; B-12 Plus 5,000-100 mcg sublingual Tablet, Sublingual [Active]; bupropion HCl 150 mg Oral Tablet, Extended Release 24 hr daily [Active]; aspirin 81 mg Oral capsule once [Active]; esomeprazole magnesium 40 mg Oral capsule,delayed release (e.c.) daily [Active]; famotidine 20 mg Oral tablet 2 times per day [Active]; clomiphene citrate 50 mg Oral tablet daily [Active]; ferrous sulfate 325 mg (65 mg iron) Oral tablet daily [Active]; cholecalciferol (vitamin D3) 10 mcg (400 unit) Oral tablet [Active]; furosemide 20 mg Oral tablet daily [Active]; diltiazem HCl 30 mg Oral tablet 4 times per day [Active]; fluoxetine 40 mg Oral capsule daily [Active]; fluticasone propion-salmeterol 232-14 mcg/actuation inhalation Aerosol Powder, Breath Activated 2 times per day [Active]; lamotrigine 50 mg Oral Tablet, Extended Release 24 hr daily [Active]; levalbuterol HCl 1.25 mg/3 mL inhalation Solution for Nebulization every 3 to 4 hours [Active]; meloxicam 7.5 mg Oral tablet daily [Active]; losartan potassium (bulk) [Active]; mirtazapine 7.5 mg Oral tablet every day at bedtime [Active]; multivitamin with minerals-folic acid-lycopene oral [Active]; naltrexone oral 4.5mg 2 tabs daily [Active]; nitroglycerin 0.4 mg SL Tablet, Sublingual 1 tab every 5 minutes [Active]; orphenadrine citrate (bulk) [Active]; timolol maleate 0.5 % Opht Drops, Once Daily daily [Active]; Trulicity 1.5 mg/0.5 mL subcutaneous Pen Injector every week [Active]; potassium chloride 10 mEq Oral Tablet, ER Particles/Crystals daily [Active]; prochlorperazine maleate 10 mg Oral tablet every 4 to 6 hours [Active]; Ubrelvy 100 mg Oral tablet 1 tab once [Active]; nebivolol 5 mg Oral tablet daily [Active]; Xarelto 2.5 mg Oral tablet 2 times per day [Active]; - PMHx: 05:38 diabetes mellitus; Headaches; GERD; Congestive heart failure; Hernia; Atrial as6 fibrillation; - PSHx: 05:38 back SX x 2 heart caths; as6 - Immunization history:: Client reports receiving the 2nd dose of the Covid vaccine, moderna. - Social history:: Smoking status: Patient denies any tobacco usage or history of. - Family history:: not pertinent. ROS: 06:54 Constitutional: Negative for fever, chills, and weight loss, positive generalized sp4 weakness, dizziness, chest pain 06:54 All other systems are negative. Exam: 06:54 Constitutional: This is a well developed, well nourished patient who is awake, alert, sp4 and in no acute distress. Overweight male hypotensive bradycardic on arrival not obtunded Head/Face: Normocephalic, atraumatic. Eyes: Pupils equal round and reactive to light, extra-ocular motions intact. Lids and lashes normal. Conjunctiva and sclera are not injected. Cornea within normal limits. Periorbital areas with no swelling, redness, or edema. ENT: Nares patent. No nasal discharge, no septal abnormalities noted. Tympanic membranes are normal and external auditory canals are clear. Oropharynx with no redness, swelling, or masses, exudates, or evidence of obstruction, uvula midline. Mucous membranes moist. Neck: Trachea midline, no thyromegaly or masses palpated, and no cervical lymphadenopathy. Supple, full range of motion without nuchal rigidity, or vertebral point tenderness. Chest/axilla: Normal chest wall appearance and motion. Nontender with no deformity. No lesions are appreciated. Cardiovascular: Regular bradycardia No gallops, murmurs, or rubs. Normal PMI, no JVD. No pulse deficits. Hypertensive on the monitor Respiratory: Lungs have equal breath sounds bilaterally, clear to auscultation and percussion. No rales, rhonchi or wheezes noted. No increased work of breathing, no retractions or nasal flaring. Abdomen/GI: Soft, non-tender, with normal bowel sounds. No distension or tympany. No guarding or rebound. No evidence of tenderness throughout. Back: No spinal tenderness. No costovertebral tenderness. Male : Normal genitalia with no discharge or lesions. Skin: Warm, dry with normal turgor. Normal color with no rashes, no lesions, and no evidence of cellulitis. MS/ Extremity: Pulses equal, no cyanosis. Neurovascular intact. Full, normal range of motion. Neuro: Awake and alert, GCS 15, oriented to person, place, time, and situation. Cranial nerves II-XII grossly intact. Motor strength 5/5 in all extremities. Sensory grossly intact. Psych: Awake, alert, with orientation to person, place and time. Behavior, mood, and affect are within normal limits 06:54 ECG was reviewed by the Attending Physician. There is junctional rhythm with a rate of sp4 50 EKG time 0 537, no ST elevation or depression Vital Signs: 05:37 BP 86 / 54; Pulse 53; Resp 14 S; Temp 98.3(O); Pulse Ox 99% on R/A; Weight 123.38 kg as6 (R); Height 5 ft. 8 in. (R); Pain 6/10; 05:45 BP 74 / 46; Pulse 47; Resp 17 S; Pulse Ox 100% on R/A; jw7 06:00 BP 81 / 47; Pulse 74; Resp 24 S; Pulse Ox 100% on R/A; jw7 06:15 BP 86 / 60; Pulse 61; Resp 12 S; Pulse Ox 99% on R/A; jw7 06:30 BP 91 / 51; Pulse 57; Resp 24 S; Pulse Ox 98% on R/A; jw7 06:45 BP 93 / 53; Pulse 51; Resp 17 S; Pulse Ox 99% on R/A; jw7 07:00 BP 88 / 53; Pulse 48; Resp 18 S; Pulse Ox 99% on R/A; jw7 07:05 BP 103 / 55; Pulse 46; Resp 17; Pulse Ox 100% ; bp 07:30 BP 98 / 59; Pulse 45; Resp 20; Pulse Ox 100% on R/A; db 07:51 BP 100 / 59; Pulse 44; Resp 22; Pulse Ox 98% ; bp 08:30 BP 112 / 60; Pulse 57; Resp 23; Pulse Ox 97% ; bp 09:00 BP 112 / 66; Pulse 55; Resp 23; Pulse Ox 98% ; bp 05:37 Body Mass Index 41.36 (123.38 kg, 172.72 cm) as6 05:37 Pain Scale: Adult as6 Procedures: 06:51 Central Line: the site was prepped with in sterile fashion, Hibiclens, a triple lumen sp4 catheter was inserted, in the right internal jugular vein, in 1 attempts. placement was verified, by CXR, by blood return, Ultrasound-guided central line, the site was dressed with Tegaderm, using sterile technique, the patient tolerated the procedure, well, Right triple-lumen internal jugular ultrasound-guided central line was placed. MDM: 06:04 Patient medically screened. sp4 06:51 Data reviewed: vital signs, nurses notes, EMS record, old medical records, lab test sp4 result(s), EKG, radiologic studies, plain films. Consideration of Admission/Observation Patient was admitted/placed on observation. Escalation of care including admission/observation considered. Management of patient was discussed with the following: Final Inspector Balance Wheel: Traffic Counter at [facility]. 07:43 ED course: Emergent central line was placed for resuscitation Levophed started and sp4 blood pressure has improved to 98/59. Patient remains bradycardic at the rate of 44. We will administer another dose of atropine. We will pace if necessary. Patient was discussed with radiation therapy technician at [facility] who has accepted patient for transfer. Will probably transfer with aeromedical transport. . 04/30 05:43 Order name: Basic Metabolic Panel; Complete Time: 06:50 sp4 04/30 05:43 Order name: CBC with Diff; Complete Time: 06:14 sp4 04/30 05:43 Order name: LFT's; Complete Time: 06:50 sp4 04/30 05:43 Order name: Magnesium; Complete Time: 06:50 sp4 04/30 05:43 Order name: NT PRO-BNP; Complete Time: 06:50 sp4 04/30 05:43 Order name: PT-INR; Complete Time: 06:14 sp4 04/30 05:43 Order name: Troponin HS; Complete Time: 06:50 sp4 04/30 05:43 Order name: XRAY Chest (1 view); Complete Time: 07:26 sp4 04/30 05:43 Order name: EKG; Complete Time: 05:44 sp4 04/30 05:43 Order name: Cardiac monitoring; Complete Time: 58 sp4 04/30 05:43 Order name: EKG - Nurse/Tech; Complete Time: :58 sp4 04/30 05:43 Order name: IV Saline Lock; Complete Time: :58 sp4 04/30 05:43 Order name: Labs collected and sent; Complete Time: :58 sp4 04/30 05:43 Order name: O2 Per Protocol; Complete Time: :58 sp4 04/30 05:43 Order name: O2 Sat Monitoring; Complete Time: 05:58 sp4 EC:54 Rate is 50 beats/min. Rhythm is regular, Junctional rhythm. QRS Moose is Normal. QRS sp4 interval is normal. QT interval is normal. No ST changes noted. Interpreted by me. Administered Medications: 06:10 Drug: Atropine IVP 1 mg Route: IVP; Site: right antecubital; jw7 07:00 Follow up: Response: No adverse reaction jw7 06:26 Drug: Albumin IVPB 25 grams Volume: 100 ml; Route: IVPB; Site: right antecubital; jw7 07:58 Follow up: IV Status: Completed infusion; IV Intake: 100ml bp 06:26 Drug: Albumin IVPB 25 grams Volume: 100 ml; Route: IVPB; Site: right antecubital; jw7 07:58 Follow up: IV Status: Completed infusion; IV Intake: 100ml bp 06:27 Drug: NS 0.9% IV 1000 ml Route: IV; Rate: 125 ml/hr; Site: right antecubital; jw7 09:26 Follow up: IV Status: Infusion continued upon transfer bp 06:57 Drug: Norepinephrine IV 0.1 mcg/kg/min Route: IV; Rate: calculated rate; Site: right jw7 jugular; 09:25 Follow up: IV Status: Infusion continued upon transfer bp 07:58 Drug: Atropine IVP 1 mg Route: IVP; Site: right jugular; bp 09:26 Follow up: Response: No adverse reaction bp Disposition Summary: 04/30/23 07:01 Transfer Ordered Transfer Location: [facility] sp4 Reason: Higher level of care sp4 Condition: Stable sp4 Problem: new sp4 Symptoms: have improved sp4 Accepting Physician: Jermaine [facility]. Wilson attending (04/30/23 09:28) bp Diagnosis - Bradycardia, unspecified sp4 - Symptomatic bradycardia, junctional bradycardia, cardiogenic shock, systolic heart sp4 failure Forms: - Medication Reconciliation Form sp4 - SBAR form sp4 Critical care time excluding procedures: 06:54 Critical care time: Bedside Care: 46 minutes, Consultation: 12 minutes. Total time: 58 sp4 minutes Signatures: Dispatcher [employer] Deniz Felder RN RN Hebert Aviles RN GENESIS [email or web address] Alicia Hanson, RN RN jw7 Fuentes Perkins MD MD sp4 Corrections: (The following items were deleted from the chart) 09:28 07:[address] [facility] attending sp4 bp
--- NOTE | 2023-04-30 07:02 | ER ---
Nurse's Notes [facility] Name: Orlando Sanchez Age: 28 yrs Sex: Male : 1995 Arrival Date: 04/30/2023 Time: 05:36 Bed 2 Private MD: Diagnosis: Bradycardia, unspecified;Symptomatic bradycardia, junctional bradycardia, cardiogenic shock, systolic heart failure Presentation: 04/30 05:42 Chief complaint: EMS states: called out for hypotension. Coronavirus screen: At this as6 time, the client does not indicate any symptoms associated with coronavirus-19. Ebola Screen: No symptoms or risks identified at this time. Initial Sepsis Screen: Does the patient meet any 2 criteria? No. Patient's initial sepsis screen is negative. Does the patient have a suspected source of infection? No. Patient's initial sepsis screen is negative. Risk Assessment: Do you want to hurt yourself or someone else? Patient reports no desire to harm self or others. Onset of symptoms was April 30, 2023. 05:42 Acuity: SURJIT 2 as6 05:42 Method Of Arrival: EMS: [facility] as6 Historical: - Allergies: 05:38 Latex, Natural Rubber; as6 05:38 Naproxen; as6 05:38 Omnicef; as6 05:38 PENICILLINS; as6 05:38 Vancomycin; as6 - Home Meds: 05:38 pantoprazole 40 mg Oral granules delayed release for susp packet 2 times per day as6 [Active]; Aimovig Autoinjector 140 mg/mL subcutaneous Auto-Injector every month [Active]; albuterol sulfate 90 mcg/actuation Inhl HFA Aerosol Inhaler every 6 hours [Active]; ascorbic acid (vitamin C) 1,000 mg tablet 2 times per day [Active]; B-12 Plus 5,000-100 mcg sublingual Tablet, Sublingual [Active]; bupropion HCl 150 mg Oral Tablet, Extended Release 24 hr daily [Active]; aspirin 81 mg Oral capsule once [Active]; esomeprazole magnesium 40 mg Oral capsule,delayed release (e.c.) daily [Active]; famotidine 20 mg Oral tablet 2 times per day [Active]; clomiphene citrate 50 mg Oral tablet daily [Active]; ferrous sulfate 325 mg (65 mg iron) Oral tablet daily [Active]; cholecalciferol (vitamin D3) 10 mcg (400 unit) Oral tablet [Active]; furosemide 20 mg Oral tablet daily [Active]; diltiazem HCl 30 mg Oral tablet 4 times per day [Active]; fluoxetine 40 mg Oral capsule daily [Active]; fluticasone propion-salmeterol 232-14 mcg/actuation inhalation Aerosol Powder, Breath Activated 2 times per day [Active]; lamotrigine 50 mg Oral Tablet, Extended Release 24 hr daily [Active]; levalbuterol HCl 1.25 mg/3 mL inhalation Solution for Nebulization every 3 to 4 hours [Active]; meloxicam 7.5 mg Oral tablet daily [Active]; losartan potassium (bulk) [Active]; mirtazapine 7.5 mg Oral tablet every day at bedtime [Active]; multivitamin with minerals-folic acid-lycopene oral [Active]; naltrexone oral 4.5mg 2 tabs daily [Active]; nitroglycerin 0.4 mg SL Tablet, Sublingual 1 tab every 5 minutes [Active]; orphenadrine citrate (bulk) [Active]; timolol maleate 0.5 % Opht Drops, Once Daily daily [Active]; Trulicity 1.5 mg/0.5 mL subcutaneous Pen Injector every week [Active]; potassium chloride 10 mEq Oral Tablet, ER Particles/Crystals daily [Active]; prochlorperazine maleate 10 mg Oral tablet every 4 to 6 hours [Active]; Ubrelvy 100 mg Oral tablet 1 tab once [Active]; nebivolol 5 mg Oral tablet daily [Active]; Xarelto 2.5 mg Oral tablet 2 times per day [Active]; - PMHx: 05:38 diabetes mellitus; Headaches; GERD; Congestive heart failure; Hernia; Atrial as6 fibrillation; - PSHx: 05:38 back SX x 2 heart caths; as6 - Immunization history:: Client reports receiving the 2nd dose of the Covid vaccine, moderna. - Social history:: Smoking status: Patient denies any tobacco usage or history of. - Family history:: not pertinent. Screenin:36 [facility] ED Fall Risk Assessment (Adult) History of falling in the last 3 months, jw7 including since admission No falls in past 3 months (0 pts) Confusion or Disorientation No (0 pts) Intoxicated or Sedated No (0 pts) Impaired Gait No (0 pts) Mobility Assist Device Used No (0 pt) Altered Elimination No (0 pt) Score/Fall Risk Level 0 - 2 = Low Risk. Abuse screen: Denies threats or abuse. Nutritional screening: No deficits noted. Tuberculosis screening: No symptoms or risk factors identified. Assessment: 05:40 General: Appears in no apparent distress. comfortable, obese, Behavior is calm, jw7 cooperative, quiet, Reports fatigue for. 05:40 Pain: Complains of pain in chest. Neuro: Level of Consciousness is awake, alert, obeys jw7 commands, Oriented to person, place, time, situation, Reports dizziness, weakness. Cardiovascular: Reports chest pain, Capillary refill < 3 seconds JVD is present Patient's skin is warm and dry. Chest pain is described as Pain is 6 out of 10 on a pain scale. Cardiovascular: Reports fatigue, lightheadedness, shortness of breath. Cardiovascular: Edema is 2+ to left midcalf, left ankle, left foot, left toes, right midcalf, right ankle, right foot and right toes. Respiratory: Reports shortness of breath Airway is patent Trachea midline Respiratory effort is even, unlabored, Respiratory pattern is regular, symmetrical. 06:35 Reassessment: Patient appears in no apparent distress at this time. Patient and/or jw7 family updated on plan of care and expected duration. Pain level reassessed. Patient is alert, oriented x 3, equal unlabored respirations, skin warm/dry/pink. 07:01 Neuro: Level of Consciousness is lethargic. Respiratory: Respiratory effort is shallow. jw7 07:05 Reassessment: RECD REPORT FROM HEBERT HURTADO FOR 28YO WM P/W WEAKNESS AND HYPOTENSION. bp LEVOPHED AT 15, TRANSFER PENDING. 08:45 Reassessment: REPORT TO JUAN HURTADO FOR [facility]. [facility]. bp 09:17 Reassessment: [facility]FL[facility] AT B/S. bp Vital Signs: 05:37 BP 86 / 54; Pulse 53; Resp 14 S; Temp 98.3(O); Pulse Ox 99% on R/A; Weight 123.38 kg as6 (R); Height 5 ft. 8 in. (R); Pain 6/10; 05:45 BP 74 / 46; Pulse 47; Resp 17 S; Pulse Ox 100% on R/A; jw7 06:00 BP 81 / 47; Pulse 74; Resp 24 S; Pulse Ox 100% on R/A; jw7 06:15 BP 86 / 60; Pulse 61; Resp 12 S; Pulse Ox 99% on R/A; jw7 06:30 BP 91 / 51; Pulse 57; Resp 24 S; Pulse Ox 98% on R/A; jw7 06:45 BP 93 / 53; Pulse 51; Resp 17 S; Pulse Ox 99% on R/A; jw7 07:00 BP 88 / 53; Pulse 48; Resp 18 S; Pulse Ox 99% on R/A; jw7 07:05 BP 103 / 55; Pulse 46; Resp 17; Pulse Ox 100% ; bp 07:30 BP 98 / 59; Pulse 45; Resp 20; Pulse Ox 100% on R/A; db 07:51 BP 100 / 59; Pulse 44; Resp 22; Pulse Ox 98% ; bp 08:30 BP 112 / 60; Pulse 57; Resp 23; Pulse Ox 97% ; bp 09:00 BP 112 / 66; Pulse 55; Resp 23; Pulse Ox 98% ; bp 05:37 Body Mass Index 41.36 (123.38 kg, 172.72 cm) as6 05:37 Pain Scale: Adult as6 ED Course: 05:37 Patient arrived in ED. as6 05:38 Arm band placed on. as6 05:40 Maintain EMS IV. Dressing intact. Good blood return noted. Site clean \T\ dry. Gauge \T\ jw 7 site: 20g RAC. 05:42 Alicia Hanson RN is Primary Nurse. jw7 05:43 Fuentes Perkins MD is Attending Physician. sp4 05:44 Triage completed. as6 06:20 Procedure consent explained by staff, explained by physician, signed by patient. jw7 06:37 Patient has correct armband on for positive identification. Placed in gown. Bed in low jw7 position. Call light in reach. Side rails up X2. Provided Education on: Procedure Consent. Client placed on continuous cardiac and pulse oximetry monitoring. NIBP monitoring applied. Warm blanket given. 06:41 Assisted provider with central line placement. Set up central line tray. Triple lumen jw7 line placed in right internal jugular. Line placed by Fuentes Perkins MD Placement verified by CXR, blood return, Dressed with Tegaderm, Patient tolerated well. Before procedure, did Practitioner(s) obtain informed consent? Yes. Patient \T\ family education about procedure, CLABSI prevention and S/S of infection? Yes. Time-out/Briefing performed prior to start of procedure? Yes. Was handwashing/sanitizing done immediately prior to procedure? Yes. Was patient positioned to in a way to prevent air embolism? Yes. Was procedure site sterilized? Yes, with chlorhexidine. Was the site allowed to dry? Yes. Was local anesthetic and/or sedation utilized? Yes. During the procedure, did the Practitioner(s) maintain a sterile field? Yes. Were unused ports clamped during insertion? Yes. Was a 2nd qualified MD obtained after 3 unsuccessful insertion attempts? N/A. Was blood aspirated from each lumen? Yes. After the procedure, did the Practitioner(s) clean the site and apply a sterile dressing? Yes. 06:55 XRAY Chest (1 view) In Process Unspecified. EDMS 07:22 Primary Nurse role handed off by Alicia Hanson, GENESIS bp 07:22 Deniz Peralta, GENESIS is Primary Nurse. bp 09:27 Patient transferred, IV remains in place. bp Administered Medications: 06:10 Drug: Atropine IVP 1 mg Route: IVP; Site: right antecubital; jw7 07:00 Follow up: Response: No adverse reaction jw7 06:26 Drug: Albumin IVPB 25 grams Volume: 100 ml; Route: IVPB; Site: right antecubital; jw7 07:58 Follow up: IV Status: Completed infusion; IV Intake: 100ml bp 06:26 Drug: Albumin IVPB 25 grams Volume: 100 ml; Route: IVPB; Site: right antecubital; jw7 07:58 Follow up: IV Status: Completed infusion; IV Intake: 100ml bp 06:27 Drug: NS 0.9% IV 1000 ml Route: IV; Rate: 125 ml/hr; Site: right antecubital; jw7 09:26 Follow up: IV Status: Infusion continued upon transfer bp 06:57 Drug: Norepinephrine IV 0.1 mcg/kg/min Route: IV; Rate: calculated rate; Site: right jw7 jugular; 09:25 Follow up: IV Status: Infusion continued upon transfer bp 07:58 Drug: Atropine IVP 1 mg Route: IVP; Site: right jugular; bp 09:26 Follow up: Response: No adverse reaction bp Medication: 06:37 VIS not applicable for this client. jw7 Intake: 07:58 IV: 100ml; Total: 100ml. bp 07:58 IV: 100ml; Total: 200ml. bp Outcome: 07:01 ER care complete, transfer ordered by sp4 09:27 Transferred by helicopter to [facility]. bp 09:27 Condition: stable 09:27 Instructed on the need for transfer. 09:28 Patient left the ED. bp Signatures: Dispatcher [employer] EDMS Deniz Peralta RN RN bp Hebert Trinh RN RN as6 Alicia Hanson RN RN jw7 Denise Hay, RN RN Fuentes Shaw MD MD sp4
--- NOTE | 2023-04-30 07:18 | RAD REPORT ---
EXAM DESCRIPTION: Marina Single View04/30/2023 6:53 am CLINICAL HISTORY: Device placement/central venous catheter placement IMPRESSION: Central venous catheter has been placed with its tip 1 centimeter into the right atrium No pneumothorax
[2023-04-30 09:33] VITALS: TEMP 98.3
[2023-04-30 09:46] VITALS: BP 112/66; O2SAT 98
--- NOTE | 2023-04-30 17:31 | EKG ---
Test Date: 2023-04-30 Test Time: 05:37:51 Histopathologist: LA MEASUREMENT RESULTS: Intervals: Rate: 50 OK: QRSD: 92 QT: 428 QTc: 390 Mobile: P: OK: QRS: 46 T: 52 INTERPRETIVE STATEMENTS: Junctional rhythm Abnormal ECG Compared to ECG 04/24/2023 22:34:04 Junctional rhythm now present Sinus rhythm no longer present Electronically Signed On 04-30-23 17:30:34 CDT by Brendon Ross
== END 2023-04-30 09:28 | disposition short-term general hospital (02) ==
LOC: ER 05:36
PROC: 05HM33Z Insertion of Infusion Device into Right Internal Jugular Vein, Percutaneous Approach (ICD-10-PCS; principal; 2023-04-30)
DX: R57.0 Cardiogenic shock (principal); I50.20 Unspecified systolic (congestive) heart failure; E11.9 Type 2 diabetes mellitus without complications; I48.91 Unspecified atrial fibrillation; Z79.01 Long term (current) use of anticoagulants; Z88.0 Allergy status to penicillin; Z88.1 Allergy status to other antibiotic agents; Z88.3 Allergy status to other anti-infective agents; Z88.5 Allergy status to narcotic agent; Z91.040 Latex allergy status; Z91.048 Other nonmedicinal substance allergy status
CPT/HCPCS: 93005; 85025; 80048; 36415; 83735; 85610; 80076; 84484; 83880; 71045; 36556; J2001; J0461 ×2; P9047; J7030

== ENCOUNTER 2023-05-07 19:33 | Emergency (ER) | payer OTHER ==
[2023-05-07 20:21] LABS: Lymphocytes % 22.5 % (15.3-44.8); MCV 82.5 fL (80-100); MPV 6.7 fL (7.6-11.3); Platelets 290 thou/uL (152-406); RBC Red Blood Cell Count 4.85 M/uL (4.33-5.43)
[2023-05-07] MEDS ORDERED: NA CHLORIDE 0.9% 1,000 ML ONE ×2 (20:31→23:13)
--- NOTE | 2023-05-07 20:33 | EDPHYS ---
Physician Documentation [facility] Name: Orlando Sanchez Age: 28 yrs Sex: Male : 1995 Arrival Date: 05/07/2023 Time: 19:33 Bed 18 Private MD: ED Physician Jones Frausto HPI: 05/07 20:28 This 28 yrs old Male presents to ER via EMS with complaints of Blood Pressure Problem. carley 20:28 low bp. Onset: The symptoms/episode began/occurred today. Severity of symptoms: At carley their worst the symptoms were mild in the emergency department the symptoms are unchanged. The patient has experienced similar episodes in the past, multiple times. Historical: - Allergies: 19:43 Latex, Natural Rubber; ll3 19:43 Naproxen; ll3 19:43 Omnicef; ll3 19:43 PENICILLINS; ll3 19:43 Vancomycin; ll3 - Home Meds: 19:43 Aimovig Autoinjector 140 mg/mL subcutaneous Auto-Injector every month [Active]; ll3 albuterol sulfate 90 mcg/actuation Inhl HFA Aerosol Inhaler every 6 hours [Active]; ascorbic acid (vitamin C) 1,000 mg tablet 2 times per day [Active]; aspirin 81 mg Oral capsule once [Active]; B-12 Plus 5,000-100 mcg sublingual Tablet, Sublingual [Active]; bupropion HCl 150 mg Oral Tablet, Extended Release 24 hr daily [Active]; cholecalciferol (vitamin D3) 10 mcg (400 unit) Oral tablet [Active]; clomiphene citrate 50 mg Oral tablet daily [Active]; diltiazem HCl 30 mg Oral tablet 4 times per day [Active]; esomeprazole magnesium 40 mg Oral capsule,delayed release (e.c.) daily [Active]; famotidine 20 mg Oral tablet 2 times per day [Active]; ferrous sulfate 325 mg (65 mg iron) Oral tablet daily [Active]; fluoxetine 40 mg Oral capsule daily [Active]; fluticasone propion-salmeterol 232-14 mcg/actuation inhalation Aerosol Powder, Breath Activated 2 times per day [Active]; furosemide 20 mg Oral tablet daily [Active]; lamotrigine 50 mg Oral Tablet, Extended Release 24 hr daily [Active]; levalbuterol HCl 1.25 mg/3 mL inhalation Solution for Nebulization every 3 to 4 hours [Active]; losartan potassium (bulk) [Active]; meloxicam 7.5 mg Oral tablet daily [Active]; mirtazapine 7.5 mg Oral tablet every day at bedtime [Active]; multivitamin with minerals-folic acid-lycopene oral [Active]; naltrexone oral 4.5mg 2 tabs daily [Active]; nebivolol 5 mg Oral tablet daily [Active]; nitroglycerin 0.4 mg SL Tablet, Sublingual 1 tab every 5 minutes [Active]; Xarelto 2.5 mg Oral tablet 2 times per day [Active]; Ubrelvy 100 mg Oral tablet 1 tab once [Active]; Trulicity 1.5 mg/0.5 mL subcutaneous Pen Injector every week [Active]; timolol maleate 0.5 % Opht Drops, Once Daily daily [Active]; prochlorperazine maleate 10 mg Oral tablet every 4 to 6 hours [Active]; potassium chloride 10 mEq Oral Tablet, ER Particles/Crystals daily [Active]; pantoprazole 40 mg Oral granules delayed release for susp packet 2 times per day [Active]; orphenadrine citrate (bulk) [Active]; - PMHx: 19:43 Atrial fibrillation; Congestive heart failure; diabetes mellitus; GERD; Headaches; ll3 Hernia; - PSHx: 19:43 back SX x 2 heart caths; ll3 - Immunization history:: Client reports receiving the 2nd dose of the Covid vaccine. - Social history:: Smoking status: Patient denies any tobacco usage or history of. ROS: 20:28 Constitutional: Negative for fever, chills, and weight loss, Eyes: Negative for injury, carley pain, redness, and discharge, ENT: Negative for injury, pain, and discharge, Neck: Negative for injury, pain, and swelling, Cardiovascular: Negative for chest pain, palpitations, and edema, Respiratory: Negative for shortness of breath, cough, wheezing, and pleuritic chest pain, Abdomen/GI: Negative for abdominal pain, nausea, vomiting, diarrhea, and constipation, Back: Negative for injury and pain, : Negative for injury, bleeding, discharge, and swelling, MS/Extremity: Negative for injury and deformity, Skin: Negative for injury, rash, and discoloration, Psych: Negative for depression, anxiety, suicide ideation, homicidal ideation, and hallucinations, Allergy/Immunology: Negative for hives, rash, and allergies, Endocrine: Negative for neck swelling, polydipsia, polyuria, polyphagia, and marked weight changes, Hematologic/Lymphatic: Negative for swollen nodes, abnormal bleeding, and unusual bruising. 20:28 Neuro: Positive for weakness. Exam: 20:28 Constitutional: This is a well developed, well nourished patient who is awake, alert, carley and in no acute distress. Head/Face: Normocephalic, atraumatic. Eyes: Pupils equal round and reactive to light, extra-ocular motions intact. Lids and lashes normal. Conjunctiva and sclera are non-icteric and not injected. Cornea within normal limits. Periorbital areas with no swelling, redness, or edema. ENT: Nares patent. No nasal discharge, no septal abnormalities noted. Tympanic membranes are normal and external auditory canals are clear. Oropharynx with no redness, swelling, or masses, exudates, or evidence of obstruction, uvula midline. Mucous membranes moist. Neck: Trachea midline, no thyromegaly or masses palpated, and no cervical lymphadenopathy. Supple, full range of motion without nuchal rigidity, or vertebral point tenderness. No Meningismus. Chest/axilla: Normal chest wall appearance and motion. Nontender with no deformity. No lesions are appreciated. Cardiovascular: Regular rate and rhythm with a normal S1 and S2. No gallops, murmurs, or rubs. Normal PMI, no JVD. No pulse deficits. Respiratory: Lungs have equal breath sounds bilaterally, clear to auscultation and percussion. No rales, rhonchi or wheezes noted. No increased work of breathing, no retractions or nasal flaring. Abdomen/GI: Soft, non-tender, with normal bowel sounds. No distension or tympany. No guarding or rebound. No evidence of tenderness throughout. Back: No spinal tenderness. No costovertebral tenderness. Full range of motion. Male : Normal genitalia with no discharge or lesions. Skin: Warm, dry with normal turgor. Normal color with no rashes, no lesions, and no evidence of cellulitis. MS/ Extremity: Pulses equal, no cyanosis. Neurovascular intact. Full, normal range of motion. Neuro: Awake and alert, GCS 15, oriented to person, place, time, and situation. Cranial nerves II-XII grossly intact. Motor strength 5/5 in all extremities. Sensory grossly intact. Cerebellar exam normal. Normal gait. Psych: Awake, alert, with orientation to person, place and time. Behavior, mood, and affect are within normal limits. 20:28 ECG was reviewed by the Attending Physician. Vital Signs: 19:41 BP 84 / 60; Pulse 82; Resp 18; Temp 98.2(O); Pulse Ox 98% on R/A; Weight 122.02 kg (R); ll3 Height 5 ft. 8 in. (R); 20:26 BP 84 / 61; Pulse 79; Resp 14; Pulse Ox 97% on R/A; ll3 21:13 BP 98 / 62; Pulse 85; Resp 18; Pulse Ox 95% on R/A; pf1 23:41 BP 94 / 66; Pulse 67; Resp 15; Pulse Ox 98% on R/A; ll3 19:41 Body Mass Index 40.90 (122.02 kg, 172.72 cm) ll3 MDM: 19:46 Patient medically screened. cp 20:01 Patient medically screened. carley 20:35 Differential diagnosis: abnormal EKG, acute myocardial infarction, congestive heart carley failure gastroesophageal reflux disease (GERD), stable angina, unstable angina. Differential Diagnosis altered mental status, sepsis. HEART Score: History: Slightly Suspicious (0), ECG: Normal (0), Age: < or = 45 years (0), Risk Factors: > or = 3 Risk factors for atherosclerotic disease (2), [Hypertension] [DM] [+ Family HX] [Obesity] Troponin: < or = 1 x Normal Limit (0). FARHAT Risk Score: 1 - Three or more CAD risk factors, TOTAL SCORE = 1. Data reviewed: vital signs, nurses notes, lab test result(s), EKG, radiologic studies, plain films. Consideration of Admission/Observation Patient was admitted/placed on observation. Escalation of care including admission/observation considered. I considered the following discharge prescriptions or medication management in the emergency department Medications were administered in the Emergency Department. See MAR. Test considered but Not performed: CT: no ct chest. Care significantly affected by the following chronic conditions: Diabetes, Hypertension, Congestive Heart Failure, Obesity. Counseling: I had a detailed discussion with the patient and/or guardian regarding: the historical points, exam findings, and any diagnostic results supporting the discharge/admit diagnosis, lab results, radiology results, the need to transfer to another facility, for higher level of care, [facility] does not immediately have the required specialist. 05/07 19:59 Order name: Basic Metabolic Panel; Complete Time: 20:46 3 05/07 19:59 Order name: CBC with Diff; Complete Time: 20:26 3 05/07 19:59 Order name: Troponin HS; Complete Time: 20:46 3 05/07 20:04 Order name: Lipase; Complete Time: 21:04 [facility] 05/07 20:04 Order name: ETOH Level; Complete Time: 21:04 [facility] 05/07 20:04 Order name: Tylenol Level; Complete Time: 21:04 [facility] 05/07 20:46 Order name: LFT's; Complete Time: 22:03 [facility] 05/07 19:59 Order name: XRAY Chest (1 view); Complete Time: 22:03 3 05/07 19:59 Order name: EKG; Complete Time: 20:00 3 05/07 19:59 Order name: Cardiac monitoring; Complete Time: 20:00 3 05/07 19:59 Order name: EKG - Nurse/Tech; Complete Time: 20:00 3 05/07 19:59 Order name: IV Saline Lock; Complete Time: 20:15 3 05/07 19:59 Order name: Labs collected and sent; Complete Time: 20:15 3 05/07 19:59 Order name: O2 Per Protocol; Complete Time: 19:59 3 05/07 19:59 Order name: O2 Sat Monitoring; Complete Time: 19:59 ll3 EC:28 Rate is 81 beats/min. Rhythm is regular. QRS [place] is Normal. MA interval is normal. QRS carley interval is normal. QT interval is normal. No Q waves. T waves are Normal. No ST changes noted. Clinical impression: NSR w/ Non-specific ST/T Changes and No evidence of ischemia. Interpreted by me. Reviewed by me. Administered Medications: 20:15 Drug: NS 0.9% IV 500 ml Route: IV; Rate: bolus; Site: right antecubital; ll3 21:21 Follow up: Response: No adverse reaction; IV Status: Completed infusion; IV Intake: ll3 500ml 21:11 Drug: NS 0.9% IV 1000 ml Route: IV; Rate: 1 bolus; Site: right antecubital; ll3 23:40 Follow up: Response: No adverse reaction; IV Status: Completed infusion; IV Intake: ll3 1000ml 23:09 Drug: NS 0.9% IV 1000 ml Route: IV; Rate: 125 ml/hr; Site: right antecubital; ll3 23:40 Follow up: Response: No adverse reaction; IV Status: Infusion continued upon transfer ll3 Disposition Summary: 05/07/23 20:32 Transfer Ordered Transfer Location: [facility] carley Reason: Higher level of care carley Condition: Stable carley Problem: new carley Symptoms: have improved carley Accepting Physician: to [facility](05/07/23 23:42) ll3 Diagnosis - Weakness carley - Hypotension due to drugs carley - Unspecified combined systolic (congestive) and diastolic (congestive) heart failure carley Forms: - Medication Reconciliation Form carley - SBAR form carley Signatures: Dispatcher [employer] EDJones [place] MD MD cha Page, Corey, PA PA Agustin Winkler RN RN ll3 Corrections: (The following items were deleted from the chart) 23:42 20:32 to [facility] carley ll3
--- NOTE | 2023-05-07 20:33 | ER ---
Nurse's Notes [facility] Name: Orlando Sanchez Age: 28 yrs Sex: Male : 1995 Arrival Date: 05/07/2023 Time: 19:33 Bed 18 Private MD: Diagnosis: Weakness;Hypotension due to drugs;Unspecified combined systolic (congestive) and diastolic (congestive) heart failure Presentation: 05/07 19:41 Chief complaint: EMS states: Toned out for SOB and hypotension, pt states got d/c ll3 yesterday from [facility] for the same thing, c/o dizziness. Coronavirus screen: Vaccine status: Patient reports receiving the 2nd dose of the covid vaccine. At this time, the client does not indicate any symptoms associated with coronavirus-19. Ebola Screen: No symptoms or risks identified at this time. Initial Sepsis Screen: Does the patient meet any 2 criteria? No. Patient's initial sepsis screen is negative. Does the patient have a suspected source of infection? No. Patient's initial sepsis screen is negative. Risk Assessment: Do you want to hurt yourself or someone else? Patient reports no desire to harm self or others. Onset of symptoms is unknown. Care prior to arrival: Medication(s) given: Normal saline infusion, 500 mL, IV initiated. 20 GA, in the right antecubital area. 19:41 Method Of Arrival: EMS: [facility] 3 19:41 Acuity: SURJIT 2 ll3 Triage Assessment: 19:43 General: Appears uncomfortable, Behavior is calm, cooperative. Pain: Denies pain. ll3 Neuro: Level of Consciousness is awake, alert, obeys commands, Oriented to person, place, time, situation, Reports dizziness. Cardiovascular: Reports lightheadedness, nausea, shortness of breath, Patient's skin is warm and dry. Chest pain is denied. Respiratory: Reports shortness of breath at rest on exertion Respiratory effort is even, unlabored, Respiratory pattern is regular, symmetrical. Derm: Skin is dusky, pale. Historical: - Allergies: 19:43 Latex, Natural Rubber; ll3 19:43 Naproxen; ll3 19:43 Omnicef; ll3 19:43 PENICILLINS; ll3 19:43 Vancomycin; ll3 - Home Meds: 19:43 Aimovig Autoinjector 140 mg/mL subcutaneous Auto-Injector every month [Active]; ll3 albuterol sulfate 90 mcg/actuation Inhl HFA Aerosol Inhaler every 6 hours [Active]; ascorbic acid (vitamin C) 1,000 mg tablet 2 times per day [Active]; aspirin 81 mg Oral capsule once [Active]; B-12 Plus 5,000-100 mcg sublingual Tablet, Sublingual [Active]; bupropion HCl 150 mg Oral Tablet, Extended Release 24 hr daily [Active]; cholecalciferol (vitamin D3) 10 mcg (400 unit) Oral tablet [Active]; clomiphene citrate 50 mg Oral tablet daily [Active]; diltiazem HCl 30 mg Oral tablet 4 times per day [Active]; esomeprazole magnesium 40 mg Oral capsule,delayed release (e.c.) daily [Active]; famotidine 20 mg Oral tablet 2 times per day [Active]; ferrous sulfate 325 mg (65 mg iron) Oral tablet daily [Active]; fluoxetine 40 mg Oral capsule daily [Active]; fluticasone propion-salmeterol 232-14 mcg/actuation inhalation Aerosol Powder, Breath Activated 2 times per day [Active]; furosemide 20 mg Oral tablet daily [Active]; lamotrigine 50 mg Oral Tablet, Extended Release 24 hr daily [Active]; levalbuterol HCl 1.25 mg/3 mL inhalation Solution for Nebulization every 3 to 4 hours [Active]; losartan potassium (bulk) [Active]; meloxicam 7.5 mg Oral tablet daily [Active]; mirtazapine 7.5 mg Oral tablet every day at bedtime [Active]; multivitamin with minerals-folic acid-lycopene oral [Active]; naltrexone oral 4.5mg 2 tabs daily [Active]; nebivolol 5 mg Oral tablet daily [Active]; nitroglycerin 0.4 mg SL Tablet, Sublingual 1 tab every 5 minutes [Active]; Xarelto 2.5 mg Oral tablet 2 times per day [Active]; Ubrelvy 100 mg Oral tablet 1 tab once [Active]; Trulicity 1.5 mg/0.5 mL subcutaneous Pen Injector every week [Active]; timolol maleate 0.5 % Opht Drops, Once Daily daily [Active]; prochlorperazine maleate 10 mg Oral tablet every 4 to 6 hours [Active]; potassium chloride 10 mEq Oral Tablet, ER Particles/Crystals daily [Active]; pantoprazole 40 mg Oral granules delayed release for susp packet 2 times per day [Active]; orphenadrine citrate (bulk) [Active]; - PMHx: 19:43 Atrial fibrillation; Congestive heart failure; diabetes mellitus; GERD; Headaches; ll3 Hernia; - PSHx: 19:43 back SX x 2 heart caths; ll3 - Immunization history:: Client reports receiving the 2nd dose of the Covid vaccine. - Social history:: Smoking status: Patient denies any tobacco usage or history of. Screenin:49 [facility] ED Fall Risk Assessment (Adult) History of falling in the last 3 months, ll3 including since admission No falls in past 3 months (0 pts) Confusion or Disorientation No (0 pts) Intoxicated or Sedated No (0 pts) Impaired Gait No (0 pts) Mobility Assist Device Used No (0 pt) Altered Elimination No (0 pt) Score/Fall Risk Level 0 - 2 = Low Risk Oriented to surroundings, Maintained a safe environment, Educated pt \T\ family on fall prevention, incl call for assistance when getting out of bed. Abuse screen: Denies threats or abuse. Denies injuries from another. Nutritional screening: No deficits noted. Tuberculosis screening: No symptoms or risk factors identified. Assessment: 19:43 General: See triage assessment. ll3 Vital Signs: 19:41 BP 84 / 60; Pulse 82; Resp 18; Temp 98.2(O); Pulse Ox 98% on R/A; Weight 122.02 kg (R); ll3 Height 5 ft. 8 in. (R); 20:26 BP 84 / 61; Pulse 79; Resp 14; Pulse Ox 97% on R/A; ll3 21:13 BP 98 / 62; Pulse 85; Resp 18; Pulse Ox 95% on R/A; pf1 23:41 BP 94 / 66; Pulse 67; Resp 15; Pulse Ox 98% on R/A; ll3 19:41 Body Mass Index 40.90 (122.02 kg, 172.72 cm) ll3 ED Course: 19:40 Patient arrived in ED. ag3 19:43 Triage completed. ll3 19:45 Jones Chaparro PA is PHCP. cp 19:45 Britni Emanuel MD is Attending Physician. cp 19:49 Arm band placed on Patient placed in an exam room, on a stretcher, on department helper, ll3 on pulse oximetry. 19:49 Patient has correct armband on for positive identification. Placed in gown. Bed in low ll3 position. Call light in reach. Side rails up X 1. 20:01 Jones Frausto MD is Attending Physician. [facility] 20:38 Initiated transfer with Amy at [facility]. rv1 20:47 XRAY Chest (1 view) In Process Unspecified. EDMS 22:23 Pt accepted to [facility] by Dr. Montalvo to Rm [id number]. rv1 23:39 No provider procedures requiring assistance completed. Patient transferred, IV remains ll3 in place. Administered Medications: 20:15 Drug: NS 0.9% IV 500 ml Route: IV; Rate: bolus; Site: right antecubital; ll3 21:21 Follow up: Response: No adverse reaction; IV Status: Completed infusion; IV Intake: ll3 500ml 21:11 Drug: NS 0.9% IV 1000 ml Route: IV; Rate: 1 bolus; Site: right antecubital; ll3 23:40 Follow up: Response: No adverse reaction; IV Status: Completed infusion; IV Intake: ll3 1000ml 23:09 Drug: NS 0.9% IV 1000 ml Route: IV; Rate: 125 ml/hr; Site: right antecubital; ll3 23:40 Follow up: Response: No adverse reaction; IV Status: Infusion continued upon transfer ll3 Medication: 23:39 VIS not applicable for this client. ll3 Intake: 21:21 IV: 500ml; Total: 500ml. ll3 23:40 IV: 1000ml; Total: 1500ml. ll3 Outcome: 20:32 ER care complete, transfer ordered by . [facility] 23:39 Transferred by ground EMS [facility], Transfer form completed. ll3 X-rays sent w/ patient. 23:39 Condition: stable 23:39 Discharge instructions given to patient, Instructed on the need for transfer, Demonstrated understanding of instructions. 23:42 Patient left the ED. ll3 Signatures: Dispatcher [employer] EDTN Jones Frausto MD MD cha Page, Corey PA PA Kala Segal [place], RN RN ll3 Starla Townsend RN RN pf1 Marta Vernon 1 Corrections: (The following items were deleted from the chart) 21: 19:41 Care prior to arrival: Medication(s) given: Normal saline infusion, 300 ml IV ll3 initiated. 20 GA, in the right antecubital area, ll3 21: 19:41 Care prior to arrival: Medication(s) given: Normal saline infusion, 500 mL, 300 ll3 ml IV initiated. 20 GA, in the right antecubital area, ll3
[2023-05-07 20:46] LABS: Potassium 3.8 mEq/L (3.5-5.1); Troponin High Sensitivity 4.6 pg/mL (<58.9)
[2023-05-07 20:47] LABS: Lipase 22 U/L (13-75)
[2023-05-07 21:20] LABS: Albumin 4.1 g/dL (3.4-5.0); Bilirubin Direct 0.2 mg/dL (0-0.2); Bilirubin Indirect, Calculated 0.4 mg/dL (0.2-0.8); Bilirubin Total 0.6 mg/dL (0.2-1.0); Protein, Total 8.2 g/dL (6.4-8.2)
--- NOTE | 2023-05-07 21:20 | RAD REPORT ---
EXAM DESCRIPTION: RAD - Chest Single View - 05/07/2023 8:45 pm CLINICAL HISTORY: CHEST PAIN COMPARISON: Chest Single View dated 04/30/2023; Chest Single View dated 04/24/2023; Chest Single View d ated 02/26/2023; Chest Single View dated 02/23/2023 FINDINGS: Lines: None. Lungs: No evidence of edema or pneumonia. Pleural: No significant pleural effusions or pneumothorax. Cardiac: The heart size is within normal limits. Mediastinum: Within normal limits. Bones: No acute fractures. Thoracolumbar fusion hardware. Other: None IMPRESSION: No acute cardiopulmonary disease.
[2023-05-08 00:12] VITALS: TEMP 98.2
[2023-05-08 00:17] VITALS: BP 94/66; O2SAT 98
--- NOTE | 2023-05-08 14:12 | EKG ---
Test Date: 2023-05-07 Test Time: 19:57:13 [employer]: HANANE MEASUREMENT RESULTS: Intervals: Rate: 81 NE: 138 QRSD: 94 QT: 362 QTc: 420 [place]: P: 9 NE: 138 QRS: 23 T: 37 INTERPRETIVE STATEMENTS: Normal sinus rhythm Normal ECG Compared to ECG 04/30/2023 05:37:51 Junctional rhythm no longer present Electronically Signed On 05-08-23 14:10:33 CDT by Brendon Ross
== END 2023-05-07 23:42 | disposition short-term general hospital (02) ==
LOC: ER 19:33
DX: I95.2 Hypotension due to drugs (principal); I50.40 Unspecified combined systolic (congestive) and diastolic (congestive) heart failure; I48.91 Unspecified atrial fibrillation; Z79.01 Long term (current) use of anticoagulants; E11.9 Type 2 diabetes mellitus without complications; Z79.82 Long term (current) use of aspirin; Z79.4 Long term (current) use of insulin; Z88.0 Allergy status to penicillin; Z88.1 Allergy status to other antibiotic agents; Z88.3 Allergy status to other anti-infective agents; Z88.6 Allergy status to analgesic agent; Z91.040 Latex allergy status; Z91.048 Other nonmedicinal substance allergy status
CPT/HCPCS: 85025; 80048; 36415; 80076; 84484; 83690; 71045; 80143; 82077; J7030 ×2; 93005

== ENCOUNTER 2023-05-14 17:34 | Emergency (ER) | payer OTHER ==
[2023-05-14] MEDS ORDERED: DOPAMINE/D5W 400 MG/250 ML BAG IV SCH (19:00)
--- NOTE | 2023-05-14 19:32 | RAD REPORT ---
EXAM DESCRIPTION: RAD - Chest Single View - 05/14/2023 7:01 pm CLINICAL HISTORY: DYSPNEA Chest pain. COMPARISON: <Comparisons> FINDINGS: Portable technique limits examination quality. Mild interstitial pulmonary edema is suspected. The heart is moderately enlarged. No displaced fractu res.Spinal hardware. IMPRESSION: Mild CHF.
[2023-05-14 19:36] LABS: Absolute Lymphocytes (CBC) 3.6 K/uL (0.7-4.9); Hematocrit 35.8 % (39.6-49.0); Lymphocytes % 20.6 % (15.3-44.8); MCV 83.4 fL (80-100); MPV 7.2 fL (7.6-11.3); Platelets 366 thou/uL (152-406); RBC Red Blood Cell Count 4.29 M/uL (4.33-5.43)
[2023-05-14] MEDS ORDERED: NOREPINEPHRINE BITARTRATE/D5W 4 MG/250 ML BAG IV ONE ×3 (19:36→21:37)
[2023-05-14 19:52] LABS: Protime INR 1.02
[2023-05-14 19:54] LABS: Albumin 3.6 g/dL (3.4-5.0); Bilirubin Direct 0.2 mg/dL (0-0.2); Bilirubin Indirect, Calculated 0.4 mg/dL (0.2-0.8); Bilirubin Total 0.6 mg/dL (0.2-1.0); Magnesium 2.1 mg/dL (1.6-2.4); Potassium 4.2 mEq/L (3.5-5.1)
[2023-05-14 20:00] LABS: Troponin High Sensitivity 85.5 pg/mL (<58.9)
--- NOTE | 2023-05-14 20:45 | EDPHYS ---
Physician Documentation [facility] Name: Orlando Sanchez Age: 28 yrs Sex: Male : 1995 Arrival Date: 05/14/2023 Time: 17:34 Bed 6 Private MD: ED Physician Rogelio London HPI: 05/14 20:45 This 28 yrs old Male presents to ER via Wheelchair with complaints of Shortness Of rt Breath. 20:45 Patient with history of CHF, A-fib presents to the ED 4 days following an ablation rt procedure in which she was taken off his metoprolol and Entresto. The patient had an acute onset of dyspnea and dizziness. Denies any chest pain. Denies other acute complaints at this time. Symptoms are severe in severity, no other aggravating or alleviating factors.. Historical: - Allergies: 18:28 Latex, Natural Rubber; bp 18:28 Naproxen; bp 18:28 Omnicef; bp 18:28 PENICILLINS; bp 18:28 Vancomycin; bp - PMHx: 18:28 Atrial fibrillation; Hernia; Headaches; GERD; diabetes mellitus; Congestive heart bp failure; - PSHx: 18:28 back SX x 2 heart caths; bp - Immunization history:: Adult Immunizations up to date. - Social history:: Smoking status: Patient denies any tobacco usage or history of. - Family history:: not pertinent. ROS: 20:45 Constitutional: Negative for fever, chills, and weight loss, Neck: Negative for injury, rt pain, and swelling, Cardiovascular: Negative for chest pain, palpitations, and edema, Abdomen/GI: Negative for abdominal pain, nausea, vomiting, diarrhea, and constipation, MS/Extremity: Negative for injury and deformity, Psych: Negative for depression, anxiety, suicide ideation, homicidal ideation, and hallucinations. 20:45 Respiratory: Positive for shortness of breath, Negative for cough. 20:45 Skin: Positive for diaphoresis, Negative for rash. 20:45 Neuro: Positive for dizziness, Negative for altered mental status. Exam: 20:45 Head/Face: Normocephalic, atraumatic. Chest/axilla: Normal chest wall appearance and rt motion. Nontender with no deformity. No lesions are appreciated. Cardiovascular: Regular rate and rhythm with a normal S1 and S2. No gallops, murmurs, or rubs. Normal PMI, no JVD. No pulse deficits. Abdomen/GI: Soft, non-tender, with normal bowel sounds. No distension or tympany. No guarding or rebound. No evidence of tenderness throughout. MS/ Extremity: Pulses equal, no cyanosis. Neurovascular intact. Full, normal range of motion. Neuro: Awake and alert, GCS 15, oriented to person, place, time, and situation. Cranial nerves II-XII grossly intact. Motor strength 5/5 in all extremities. Sensory grossly intact. Cerebellar exam normal. Normal gait. Psych: Awake, alert, with orientation to person, place and time. Behavior, mood, and affect are within normal limits. 20:45 Constitutional: The patient appears diaphoretic, in obvious distress, severely distressed. 20:45 Respiratory: Pain bibasilar crackles, moderate respiratory distress. 20:45 Skin: Pale, diaphoretic. 20:52 ECG was reviewed by the Attending Physician. rt 20:52 ECG was reviewed by the Attending Physician. rt Vital Signs: 18:28 BP 59 / 45; Pulse 54; Resp 24; Temp 97.5; Pulse Ox 92% ; bp 18:56 BP 68 / 44; Pulse 48; Resp 13; Pulse Ox 100% ; Weight 122 kg; Height 5 ft. 8 in. ; bp 19:09 BP 63 / 30; nj1 19:14 BP 61 / 38; nj1 19:19 BP 52 / 21; nj1 19:22 BP 71 / 44; nj1 20:15 BP 86 / 49; Pulse 59; Resp 18; Pulse Ox 100% on 30 lpm BiPAP; mb9 20:18 BP 86 / 52; Pulse 58; Resp 18; Pulse Ox 100% on 30 lpm BiPAP; mb9 21:02 BP 95 / 56; Pulse 64; Resp 20; Pulse Ox 95% on 30 lpm BiPAP; mb9 21:06 BP 92 / 51; Pulse 62; Resp 18; Pulse Ox 95% on 30 lpm BiPAP; mb9 21:20 BP 93 / 45; Pulse 61; Resp 18; Pulse Ox 100% on 30 lpm BiPAP; mb9 18:56 Body Mass Index 40.90 (122.00 kg, 172.72 cm) bp 19:09 MAP 40 nj1 19:14 MAP 46 nj1 19:19 MAP 30 nj1 19:22 MAP 50 nj1 Procedures: 20:45 Central Line: the site was prepped with in sterile fashion, Chlorhexidine, a triple rt lumen catheter was inserted, in the left femoral vein, in 1 attempts. placement was verified, by blood return, Wire identified in vein by ultrasound, the site was dressed with Chlorhexidine impregnated Tegaderm, the patient tolerated the procedure, well. Ultrasound: Type: Cardiac, performed by the emergency department physician, No pericardial effusion noted, decreased contractility globally.. MDM: 18:44 Patient medically screened. rt 20:45 Differential diagnosis: Cardiogenic shock, symptomatic bradycardia, pericardial rt effusion. Data reviewed: vital signs, nurses notes, old medical records, lab test result(s), EKG, radiologic studies. Consideration of Admission/Observation Patient requires transfer for higher level of care. 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 I considered the following discharge prescriptions or medication management in the emergency department Medications were administered in the Emergency Department. See MAR. Independent interpretation of the following test(s) in the Emergency Department X-Ray: My interpretation is No pneumothorax no interpretation of x-ray image. Test considered but Not performed: CT: Low suspicion for pulmonary embolism, believe that the risk of leaving the emergency department to go to radiology is greater than the risk of potential missed PE given patient's clinical appearance. Care significantly affected by the following chronic conditions: Diabetes, Congestive Heart Failure. Counseling: I had a detailed discussion with the patient and/or guardian regarding the historical points, exam findings, and any diagnostic results supporting the discharge/admit diagnosis, lab results, radiology results, the need to transfer to another facility. Response to treatment: the patient's symptoms have markedly improved after treatment. 05/14 18:51 Order name: Basic Metabolic Panel; Complete Time: 20:20 rt 05/14 18:51 Order name: CBC with Diff; Complete Time: 19:51 rt 05/14 18:51 Order name: LFT's; Complete Time: 20:20 rt 05/14 18:51 Order name: Magnesium; Complete Time: 20:20 rt 05/14 18:51 Order name: NT PRO-BNP; Complete Time: 20:20 rt 05/14 18:51 Order name: PT-INR; Complete Time: 20:20 rt 05/14 18:51 Order name: Troponin HS; Complete Time: 20:20 rt 05/14 21:38 Order name: ABG mb9 05/14 18:51 Order name: XRAY Chest (1 view); Complete Time: 19:51 rt 05/14 21:36 Order name: BIPAP rt 05/14 21:37 Order name: BIPAP kl 05/14 18:51 Order name: EKG; Complete Time: 18:52 rt 05/14 18:51 Order name: Cardiac monitoring; Complete Time: 18:52 rt 05/14 18:51 Order name: EKG - Nurse/Tech; Complete Time: 18:52 rt 05/14 18:51 Order name: IV Saline Lock; Complete Time: 18:52 rt 05/14 18:51 Order name: Labs collected and sent; Complete Time: 18:52 rt 05/14 18:51 Order name: O2 Per Protocol; Complete Time: 18:52 rt 05/14 18:51 Order name: O2 Sat Monitoring; Complete Time: 18:52 rt 05/14 21:37 Order name: Central Line Kit; Complete Time: 21:38 05/14 21:38 Order name: Jean; Complete Time: 21:38 mb9 EC:52 Rate is 54 beats/min. Rhythm is regular, Junctional rhythm with No ectopy. QRS [place] is rt Normal. QRS interval is normal. QT interval is normal. No Q waves. T waves are Normal. No ST changes noted. 20:52 Rate is 60 beats/min. Rhythm is regular, Junctional rhythm with No ectopy. QRS interval rt is normal. QT interval is normal. No Q waves. Administered Medications: 19:25 Drug: Atropine IVP 1 mg {Note: Administer by TIFFANIE RN.} Route: IVP; Site: right nj1 antecubital; 20:11 Follow up: Response: No adverse reaction mb9 19:32 Drug: Norepinephrine IV 0.1 mcg/kg/min {Note: 10 mcg/min BP 80/35, HR 57.} Route: IV; mb9 Rate: calculated rate; Site: right antecubital; 19:38 Drug: Norepinephrine IV 13 mcg/min {Note: BP 65/35. HR 50.} Route: IV; Rate: calculated mb9 rate; Site: right antecubital; 19:43 Follow up: Rate change 20 mcg/min; BP 66/39. HR 55 mb9 19:48 Follow up: Rate change 20 mcg/min; BP 61/42. HR 49 mb9 19:53 Follow up: Rate change 30 mcg/min; BP 60/40 HR 53 mb9 20:05 Follow up: Rate change 70 mcg/kg/min; BP 84/49 HR 57 mb9 20:09 Follow up: Rate change 50 mcg/min; BP 73/39. HR51 mb9 20:25 Follow up: Rate change 0.2 mcg/kg/min; BP 81/49 HR 55 mb9 20:30 Follow up: Rate change 0.5 mcg/kg/min; BP 86/52 HR 59 mb9 20:40 Follow up: Rate change 1 mcg/kg/min; BP 87/56 HR 57 mb9 21:34 Follow up: IV Status: Infusion continued upon transfer lg3 20:55 Drug: EPINEPHrine (PF) IV 1.22 mcg/min {Note: BP 93/60 HR 64.} Route: IV; Rate: mb9 calculated rate; Site: left femoral; 21:17 Follow up: Rate change 0.03 mcg/kg/min; BP 91/49 HR61 mb9 21:22 Follow up: Rate change 0.05 mcg/kg/min; BP 88/49 HR 61 mb9 21:34 Follow up: IV Status: Infusion continued upon transfer lg3 Disposition: 20:45 Critical Care:. rt Disposition Summary: 05/14/23 20:44 Transfer Ordered Transfer Location: [facility] rt Reason: Higher level of care rt Condition: Critical rt Problem: new rt Symptoms: have improved rt Accepting Physician: (05/14/23 22:29) mb9 Diagnosis - Cardiogenic shock rt Discharge Instructions: - Discharge Summary Sheet vc1 Forms: - SBAR form vc1 - Medication Reconciliation Form rt Critical care time excluding procedures: 20:45 Critical care time: Bedside Care: 40 minutes, Consultation: 15 minutes. Total time: 55 rt minutes Signatures: Dispatcher [employer] Pamela Stewart RN Deniz Harrison RN RN Sharmaine Snyder RN RN mb9 Rogelio London MD MD rt Margaret Parker RN RN nj1 Gibson, Lacie RN lg3 Corrections: (The following items were deleted from the chart) 22:29 20:44 . rt mb9
--- NOTE | 2023-05-14 20:45 | ER ---
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 Pt states that he took cm10 his blood pressure at home and it was 58/32, pt noted to have diaphoresis in triage. Pt was released from [facility] on Friday S/P ablation. Pt states that, "I feel like I can't catch my breath/". 18:28 Coronavirus screen: At this time, the client does not indicate any symptoms associated bp with coronavirus-19. Ebola Screen: No symptoms or risks identified at this time. Initial Sepsis Screen: Does the patient meet any 2 criteria? No. Patient's initial sepsis screen is negative. Does the patient have a suspected source of infection? No. Patient's initial sepsis screen is negative. Risk Assessment: Do you want to hurt yourself or someone else? Patient reports no desire to harm self or others. Onset of symptoms was May 14, 2023. 18:28 Method Of Arrival: Wheelchair bp 18:28 Acuity: SURJIT 2 bp Triage Assessment: 18:28 General: Appears distressed, uncomfortable, DIAPHORETIC. Behavior is cooperative, bp appropriate for age, anxious, drowsy. Pain: Complains of pain in chest. EENT: No deficits noted. Neuro: Level of Consciousness is awake, alert, obeys commands, lethargic, Oriented to Appropriate for age. Cardiovascular: Rhythm is junctional rhythm. Respiratory: Reports shortness of breath Onset: The symptoms/episode began/occurred today, the patient has moderate shortness of breath. GI: No signs and/or symptoms were reported involving the gastrointestinal system. : No signs and/or symptoms were reported regarding the genitourinary system. Derm: Skin is diaphoretic, Skin is pale, Skin temperature is cool. Musculoskeletal: No deficits noted. Historical: - Allergies: 18:28 Latex, Natural Rubber; bp 18:28 Naproxen; bp 18:28 Omnicef; bp 18:28 PENICILLINS; bp 18:28 Vancomycin; bp - PMHx: 18:28 Atrial fibrillation; Hernia; Headaches; GERD; diabetes mellitus; Congestive heart bp failure; - PSHx: 18:28 back SX x 2 heart caths; bp - Immunization history:: Adult Immunizations up to date. - Social history:: Smoking status: Patient denies any tobacco usage or history of. - Family history:: not pertinent. Screenin:56 [facility] ED Fall Risk Assessment (Adult) History of falling in the last 3 months, mb9 including since admission No falls in past 3 months (0 pts) Confusion or Disorientation No (0 pts) Intoxicated or Sedated No (0 pts) Impaired Gait No (0 pts) Mobility Assist Device Used No (0 pt) Altered Elimination No (0 pt) Score/Fall Risk Level 0 - 2 = Low Risk Oriented to surroundings, Maintained a safe environment, Educated pt \\T\\ family on fall prevention, incl call for assistance when getting out of bed. Abuse screen: Denies threats or abuse. Nutritional screening: No deficits noted. Tuberculosis screening: No symptoms or risk factors identified. Assessment: 18:55 General: Appears uncomfortable, ill, Behavior is cooperative. Pain: Complains of pain mb9 in chest Pain does not radiate. Quality of pain is described as throbbing. Neuro: [place]clure Agitation-Sedation Scale (RASS): 0 - Alert and Calm Level of Consciousness is awake, alert, obeys commands, Oriented to person, place, time, situation, Appropriate for age. Cardiovascular: Reports chest pain, diaphoresis, shortness of breath, Rhythm is sinus bradycardia. Respiratory: Airway is patent Respiratory effort is even, unlabored, Respiratory pattern is regular, symmetrical, Breath sounds are clear bilaterally. GI: Abdomen is round non-distended, Bowel sounds present X 4 quads. : No signs and/or symptoms were reported regarding the genitourinary system. Derm: Skin is intact, Skin is diaphoretic, Skin is pale. Musculoskeletal: Range of motion: intact in all extremities. 19:09 General: Dopamine 400mg in 250ml gtt started at 2.5 mcg/kg/min as ordered per Dr gail London. See [employer].. 19:14 General: Dopamine gtt increased to 12.5 mcg/kg/min. [email or web address] 19:19 General: Dopamine gtt increased to 20 mcg/kg/min. [email or web address] 20:05 Reassessment: RT at bedside placing BIPAP. mb9 21:00 Reassessment: Attempted to call report at 2100, told no bed assignment, called back at vc1 [phone] with bed assignment no answer. Contacted the transfer center and spoke with house supervision was able to get through to ICU. Receiving nurse will call back for report, they are aware life flight is on the way. 21:00 Reassessment: No changes from previously documented assessment. Patient and/or family hina updated on plan of care and expected duration. Pain level reassessed. 22:15 Reassessment: Report given to GENESIS Lainez. vc1 Vital Signs: 18:28 BP 59 / 45; Pulse 54; Resp 24; Temp 97.5; Pulse Ox 92% ; bp 18:56 BP 68 / 44; Pulse 48; Resp 13; Pulse Ox 100% ; Weight 122 kg; Height 5 ft. 8 in. ; bp 19:09 BP 63 / 30; nj1 19:14 BP 61 / 38; nj1 19:19 BP 52 / 21; nj1 19:22 BP 71 / 44; nj1 20:15 BP 86 / 49; Pulse 59; Resp 18; Pulse Ox 100% on 30 lpm BiPAP; mb9 20:18 BP 86 / 52; Pulse 58; Resp 18; Pulse Ox 100% on 30 lpm BiPAP; mb9 21:02 BP 95 / 56; Pulse 64; Resp 20; Pulse Ox 95% on 30 lpm BiPAP; mb9 21:06 BP 92 / 51; Pulse 62; Resp 18; Pulse Ox 95% on 30 lpm BiPAP; mb9 21:20 BP 93 / 45; Pulse 61; Resp 18; Pulse Ox 100% on 30 lpm BiPAP; mb9 18:56 Body Mass Index 40.90 (122.00 kg, 172.72 cm) bp 19:09 MAP 40 nj1 19:14 MAP 46 nj1 19:19 MAP 30 nj1 19:22 MAP 50 nj1 ED Course: 17:36 Patient arrived in ED. ts1 17:46 Rogelio London MD is Attending Physician. rt 18:48 Sharmaine Blanton RN is Primary Nurse. mb9 18:48 EKG done, by ED staff, reviewed by Rogelio London MD. Inserted saline lock: 20 gauge mb9 in right antecubital area, using aseptic technique. 18:48 Arm band placed on. mb9 18:53 Triage completed. bp 18:56 Placed in gown. Bed in low position. Call light in reach. Side rails up X 1. Client mb9 placed on continuous cardiac and pulse oximetry monitoring. NIBP monitoring applied. property assessment monitor on. 19:03 XRAY Chest (1 view) In Process Unspecified. EDMS 19:38 Assisted provider with central line placement. Set up central line tray. Triple lumen mb9 line placed in left femoral. Line placed by Rogelio London MD Dressed with Tegaderm, Patient tolerated well. Before procedure, did Practitioner(s) obtain informed consent? Yes. Patient \\T\\ family education about procedure, CLABSI prevention and S/S of infection? Yes. 20:00 Jean cath inserted, using sterile technique, 16 Fr., by ut, balloon inflated, returned mb9 clear yellow urine. Patient tolerated well. 21:22 Patient transferred, IV remains in place. mb9 Administered Medications: 19:25 Drug: Atropine IVP 1 mg {Note: Administer by TIFFANIE RN.} Route: IVP; Site: right nj1 antecubital; 20:11 Follow up: Response: No adverse reaction mb9 19:32 Drug: Norepinephrine IV 0.1 mcg/kg/min {Note: 10 mcg/min BP 80/35, HR 57.} Route: IV; mb9 Rate: calculated rate; Site: right antecubital; 19:38 Drug: Norepinephrine IV 13 mcg/min {Note: BP 65/35. HR 50.} Route: IV; Rate: calculated mb9 rate; Site: right antecubital; 19:43 Follow up: Rate change 20 mcg/min; BP 66/39. HR 55 mb9 19:48 Follow up: Rate change 20 mcg/min; BP 61/42. HR 49 mb9 19:53 Follow up: Rate change 30 mcg/min; BP 60/40 HR 53 mb9 20:05 Follow up: Rate change 70 mcg/kg/min; BP 84/49 HR 57 mb9 20:09 Follow up: Rate change 50 mcg/min; BP 73/39. HR51 mb9 20:25 Follow up: Rate change 0.2 mcg/kg/min; BP 81/49 HR 55 mb9 20:30 Follow up: Rate change 0.5 mcg/kg/min; BP 86/52 HR 59 mb9 20:40 Follow up: Rate change 1 mcg/kg/min; BP 87/56 HR 57 mb9 21:34 Follow up: IV Status: Infusion continued upon transfer lg3 20:55 Drug: EPINEPHrine (PF) IV 1.22 mcg/min {Note: BP 93/60 HR 64.} Route: IV; Rate: mb9 calculated rate; Site: left femoral; 21:17 Follow up: Rate change 0.03 mcg/kg/min; BP 91/49 HR61 mb9 21:22 Follow up: Rate change 0.05 mcg/kg/min; BP 88/49 HR 61 mb9 21:34 Follow up: IV Status: Infusion continued upon transfer lg3 Medication: 18:57 VIS not applicable for this client. mb9 Intake: Outcome: 20:44 ER care complete, transfer ordered by . rt 22:29 Transferred by helicopter Transfer form completed. X-rays sent w/ patient. mb9 22:29 Condition: stable 22:29 Instructed on the need for transfer. 22:29 Patient left the ED. mb9 Signatures: Dispatcher [employer] EDMS Deniz Peralta, RN RN bp Latonia Carreon, RN RN lg3 Margaret Beckman RN RN vc1 Sharmaine Blanton RN RN mb9 Rogelio London MD MD rt Margaret Parker, RN RN nj1 Angie Roque PAS PAS ts1 Quiana Finney, RN RN cm10 Corrections: (The following items were deleted from the chart) 18:59 18:56 BP 68 / 44; Pulse 48bpm; Resp 13bpm; Pulse Ox 100%; mb9 bp 20:28 20:19 Rate change 90 mcg/kg/min; BP 86/52 HR 59 mb9 mb9 20:30 20:28 Rate change 0.2 mcg/kg/min; BP 86/52 HR 59 mb9 mb9 21:01 20:55 EPINEPHrine (PF) IV 0.01 mcg/kg/min IV at calculated rate in left femoral mb9 mb9
[2023-05-14] MEDS ORDERED: EPINEPHRINE/PF 1 MG/ML AMP ONE (21:02)
[2023-05-14] MEDS ORDERED: D5W 250 ML IV ONE (21:02)
[2023-05-14] MEDS ORDERED: DOPAMINE/D5W 400 MG/250 ML BAG IV ONE (21:46)
[2023-05-14 22:05] LABS: Arterial Blood Carboxyhemoglob 1.5 % (0-1.5); Blood Gas Oxyhemoglobin 95.4 % (94-97); Blood O2 Saturation 98.3 % (92-98.5)
[2023-05-14 23:17] VITALS: TEMP 97.5
[2023-05-14 23:33] VITALS: BP 93/45; O2SAT 100
--- NOTE | 2023-05-15 17:29 | EKG ---
Test Date: 2023-05-14 Test Time: 18:39:53 Core Rescuer: HUGH MEASUREMENT RESULTS: Intervals: Rate: 54 [place]: QRSD: 94 QT: 408 QTc: 386 [place]: P: [place]: QRS: 20 T: 56 INTERPRETIVE STATEMENTS: Junctional rhythm Abnormal ECG Compared to ECG 05/07/2023 19:57:13 Junctional rhythm now present Sinus rhythm no longer present Electronically Signed On 05-15-23 17:27:32 CDT by Brendon Ross
== END 2023-05-14 22:29 | disposition short-term general hospital (02) ==
LOC: ER 17:34
PROC: 06HN33Z Insertion of Infusion Device into Left Femoral Vein, Percutaneous Approach (ICD-10-PCS; principal; 2023-05-14)
DX: R57.0 Cardiogenic shock (principal); Z98.890 Other specified postprocedural states; I50.9 Heart failure, unspecified; I48.91 Unspecified atrial fibrillation; Z88.0 Allergy status to penicillin; Z88.1 Allergy status to other antibiotic agents; Z88.3 Allergy status to other anti-infective agents; Z88.6 Allergy status to analgesic agent; Z91.040 Latex allergy status; Z91.048 Other nonmedicinal substance allergy status
CPT/HCPCS: 85025; 80048; 36415; 83735; 85610; 80076; 84484; 83880; 71045; 82805; 36600; 94660; 36556; J0171; J1265 ×2; J7060; 93005

== ENCOUNTER 2023-08-16 22:15 | Emergency (ER) | payer OTHER ==
--- OUTSIDE RECORDS SUMMARY | 2023-08-16 22:48 | XMS REPORT | Continuity of Care Document ---
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 Active Rash Univer s ty to 02-06 ity of adverse 00:00: [place] reaction 00 Medical s Branch NAPROXEN DRUG Active Rash Univers INGREDI 02-06 ity of 00:00: [place] 00 [facility] Penicill Propensi Active Rash Method i ins ty to 09-29 st adverse 00:00: Hospita reaction 00 l s to drug Penicill Propensi Active Rash Method i ins ty to 09-29 st adverse 00:00: Hospita reaction 00 l s to drug naproxen naproxen Active [facility] [place] penicill penicill Active [facility] [place] vancomyc vancomyc Active [facility] [place] Omnicef Omnicef Active [facility] [place] History Family Member Diagnosis Comments Start Date Stop Date Source Natural father Hypertension [facility] Maternal Cancer [facility] Maternal Colon polyps [facility] Maternal Diabetes [facility] Maternal Kidney disease [facility] Maternal Thyroid disease [facility] Maternal Varicose Veins [facility] Natural mother Breast cancer [facility] Natural mother [facility] Paternal Heart attack [facility] Paternal Ulcerative colitis Method [facility] Paternal Colon cancer [facility] Paternal Stroke [facility] Social History Social Habit Start Date Stop Date Quantity Comments Source History of tobacco 2022-08-[address] [facility] use 00:[facility]:00 [facility] Center History SDOH [facility] Transport [facility]-Med [facility] History SDOH [facility] Frequency Hospita l History SDOH [facility] Alcohol Std Drinks Hospit al History SDOH [facility] Gender identity Julissa franklinneel - External Sexual orientation Julissa Shipman - External History SDOH 2023-05-08 2023-05-[address] [facility] Transport Med 00:00:00 00:00:[address] History [facility] 2023-05-08 2023-05-[address] [facility] Housing Unable to 00:00:00 00:00:00 Medical Center Pay Cigarettes smoked 2023-02-01 2023-02-[address] [facility] current (pack per 00:00:00 00:00:00 Medical Center day) - Reported History [facility] 2023-02-01 2023-02-[address] [facility] Housing Places 00:00:00 00:00:00 Medical Ce nter Lived History [facility] 2023-02-01 2023-02-[address] [facility] Housing Homeless 00:00:00 00:00:00 Medical Center Last Year Tobacco use and 2023-01-31 2023-01-31 Smokeless Julissa Medley ybold - exposure 00:00:00 00:00:00 tobacco non-user External Exposure to 2023-01-17 2023-01-[address] [facility] SARS-CoV-2 (event) 00:00:00 14:02:00 Medica l Center History of Social 2022-08-27 2022-08-[address] function 00:00:00 00:00:00 Hospital Cigarette 2022-08-26 2022-08-26 [facility] pack-years 00:00:00 00:00:00 Hospital Alcohol intake 2022-08-26 2022-08-26 Ex-drinker [facility] 00:00:00 00:00:00 (finding) Hospital Tobacco Comment 2022-08-26 2022-08-26 1/2 pack/week Method ist 00:00:00 00:00:00 Hospital Alcohol Comment 2019-06-22 2019-06-22 not often [facility] 00:00:00 00:00:00 drinking Hospital Social History 2017-04-05 2017-04-05 [facility] tiffanie 08:13:08 08:13:08 Sex [birth year] At [birth year] Julissa Medley ybold - 00:00:00 00:00:00 External Smoking Status Start Date Stop Date Source Ex-smoker 2023-01-31 00:00:00 2023-01-31 00:00:00 Julissa barnardbonegra - External Never smoked tobacco Julissa Sullivan old - External Social History 2016-09-19 19:53:55 [facility] Medications Ordered Filled Start Stop Current Ordering Indication Dosage Frequency Signature Comments Components Source Medication Medication Date Date Medication? Clinician (SIG) Name Name Aspirin 81 2022-09 Yes 81mg Take 1 Kelse y MG oral 1-15 tablet (81 Seybol d Chewable 15:14: mg total) - Tablet 49 by mouth Externa daily. l Cholecalcif 2022-09 Yes 5000U Take 5,000 Julissa aminah 125 1-15 units by Seybold MCG (5000 15:14: mouth - [place]) oral 49 daily. Externa Capsule l Cobalamin 2022-[address] Kelse y Combination 1-15 5,000 mcg Sey bold s (B-12) 15:14: under the - 100-5000 49 tongue Externa MCG daily l sublingual SL Tab Levalbutero 2022-09 Yes 1.25mg Q4H Inhale 3 Julissa l HCl 1.25 1-15 mL (1.25 Seybo ld MG/3ML 15:14: mg total) - inhalation 49 into the Exter na Inhalant lungs l Solution every 4 hours as needed. Multiple 2022-09 Yes 1{capsu Take 1 Ava ey Vitamin 1-15 le} capsule by Seybol d (Multi-Eula 15:14: mouth - mins) oral 49 daily Externa Tablet l Magnesium 2022-09 Yes 400mg 2 tablets Ke lsey 200 MG oral 1-15 (400 mg Seybo ld Tablet 15:14: total) - 49 every 24 Externa hours. l Bioflavonoi 2022-09- No as Kelse y d Products 1-15 11-15 directed Seyb old (C 12:18: 00:00 Orally - 1000-Biofla 35 :00 Externa vonoids-Ros l e Hips) 1000-25 MG oral Capsule Eyota-3 2022-09- No [id number] 1{capsu 1 capsule Julissa Fatty Acids 1-15 11-15 3 le} (1,000 mg Se ybold (Fish Oil) 12:18: 00:00 total) - 1000 MG 35 :00 every 24 Externa oral hours. l Capsule Rivaroxaban 2022-09- No 20mg Take 1 Darlene sey (Xarelto) 1-15 11-15 tablet (20 Sey bold 20 MG oral 12:18: 00:00 mg total) - Tablet 35 :00 by mouth Externa daily. l Bupropion 2022-09 Yes [id number] 150mg Take 1 Julissa HCL XL 150 1-15 tablet Seybold MG OR TB24 00:00: (150 mg - 00 total) by Externa mouth l daily. busPIRone 2022-09 Yes [id number] 5mg Take 1 K elsey HCl 5 MG 1-15 tablet (5 Seybol d oral Tablet 00:00: mg total) - 00 by mouth 3 Externa times l daily. Eszopiclone 2022-09 Yes [id number] TAKE ONE Julissa 1 MG oral 1-15 (1) Seybold Tablet 00:00: TABLET(S) - 00 BY MOUTH Externa ONCE EVERY l NIGHT.. Famotidine 2022-09 Yes [id number] 20mg Take 1 Julissa (PEPCID) 20 1-15 tablet (20 Se ybold MG oral 00:00: mg total) - tablet 00 by mouth 2 Externa times l daily. Fluoxetine 2022-09 Yes [id number] 40mg Take 1 K elsey HCl 1-15 capsule Seybold (PROzac) 40 00:00: (40 mg - MG oral 00 total) by Externa Capsule mouth l daily. Fluticasone 2022-09 Yes [id number] INHALE ONE Julissa -Salmeterol 1-15 (1) PUFF Seyb old 250-50 00:00: INTO THE - MCG/ACT 00 LUNGS 2 Externa inhalation TIMES l AEROSOL DAILY.. POWDER, BREATH ACTIVATED Fluvastatin 2022-09 Yes [id number] 20mg Take 1 Julissa Sodium 20 1-15 capsule Seybold MG oral 00:00: (20 mg - Capsule 00 total) by Externa mouth l nightly. Orphenadrin 2022-09 Yes [id number] 100mg Take 1 Julissa e Citrate 1-15 tablet Seybold CR 100 MG 00:00: (100 mg - oral Tablet 00 total) by Ext nancy 12 Hour mouth l Sustained daily. Release Pantoprazol 2022-09 Yes [id number] 40mg Take 1 Julissa e Sodium 40 1-15 tablet (40 Se ybold MG oral 00:00: mg total) - Tablet 00 by mouth 2 Externa Delayed times l Response daily. cycloSPORIN 2022-09 Yes [id number] 1[drp] Place 1 Julissa E (Restasis 1-15 drop into Sey bold MultiDose) 00:00: both eyes - 0.05 % 00 2 times Externa ophthalmic daily. l Emulsion Timolol 2022-09 Yes [id number] 1[drp] Place 1 K elsey Maleate 1-15 drop into Seybold (TIMOPTIC) 00:00: both eyes - 0.5 % 00 daily. Externa ophthalmic l Solution Continuous 2022-09 Yes [id number] Pt to Julissa Blood Gluc 1-15 3 check BS Seybo ld Sensor 00:00: ACHS and - (Dexcom G6 00 PRN. Externa Sensor) l does not apply Misc Continuous 2022-09 Yes [id number] Check BS Julissa Blood Gluc 1-15 3 ACHS and Seybo ld Transmit 00:00: PRN. - (Dexcom G6 00 Externa Transmitter l ) does not apply Misc Levalbutero 2022-09 Yes [id number] 1{puff} Q4H Inhale 1-2 Julissa l Tartrate 1-15 puffs into y bold (Xopenex 00:00: the lungs - HFA) 45 00 every 4 Externa MCG/ACT hours as l inhalation needed for Aerosol wheezing. Warfarin 2022-09 Yes 5mg Take 1 Julissa (COUMADIN) 1-02 tablet (5 Seyb old 5 MG oral 00:00: mg total) - Tablet 00 by mouth Externa before l evening meal. Minocycline 2022-09- No 100mg Take 1 Ke lsey HCl 100 MG 0-31 11-15 capsule Seybo ld oral 00:00: 00:00 (100 mg - Capsule 00 :00 total) by Externa mouth 2 l times daily BRING TO HOSPITAL --TO START AFTER PROCEDURE. Famotidine 2022-09- No [id number] 20mg TAKE ONE Julissa (PEPCID) 20 0-30 11-15 (1) Seybold MG oral 00:00: 00:00 TABLET(S) - tablet 00 :00 BY MOUTH Externa TWICE A l DAY. busPIRone 2022-09- No [id number] 5mg TAKE ONE Julissa HCl 5 MG 0-30 -15 (1) Seybold oral Tablet 00:00: 00:00 TABLET(S) - 00 :00 BY MOUTH Externa THREE l TIMES A DAY. Eszopiclone 2022-09- No [id number] TAKE ONE Julissa 1 MG oral 0-30 15 (1) Seybold Tablet 00:00: 00:00 TABLET(S) - 00 :00 BY MOUTH Externa ONCE EVERY l NIGHT. Ca, Mg, K, 2022-09 Yes [id number] 2.25g Take 2.25 Julissa and Na 0-27 g by mouth Seybold Oxybates 00:00: 2 times - (Xywav) 500 00 daily Take Ex terna MG/ML oral first dose l Solution at bed time and second dose after 4 hours. Orphenadrin 2022-09- No 100mg Take 1 Ke lsey e Citrate 0-25 -15 tablet Seybold CR 100 MG 00:00: 00:00 (100 mg - oral Tablet 00 :00 total) by Ext nancy 12 Hour mouth l Sustained daily. Release Benzonatate 2022-09 Yes [id number] 100mg Q.[id number] Take 1 Julissa (Tessalon 0-24 [id number] capsule S eybold Perles) 100 00:00: 3D (100 mg - MG oral 00 total) by Externa Capsule mouth 3 l times daily as needed for cough. Benzonatate 2022-09- No [id number] 100mg Q.[id number] Take 1 Julissa (Tessalon 0-24 -15 [id number] capsule Seybold Perles) 100 00:00: 00:00 3D (100 mg - MG oral 00 :00 total) by Externa Capsule mouth 3 l times daily as needed for cough. Molnupiravi 2022-09- Yes [id number] 800mg Take 4 Julissa r 200 MG 0-24 10-30 capsules Seybol d oral 00:00: 04:59 (800 mg - Capsule 00 :00 total) by Externa mouth l every 12 hours for 5 days. Pseudoeph-B 2022-09- No [id number] 10mL Q.25D Take 10 mL Julissa romphen-DM 0-24 10-24 by mouth 4 Se ybold 30-2-10 00:00: 00:00 times - MG/5ML oral 00 :00 daily as Exte rna Syrup needed. l Aspirin 81 2022-09 Yes 81mg Take 1 Kelse y MG oral 0-23 tablet (81 Seybol d Chewable 11:27: mg total) - Tablet 10 by mouth Externa daily. l Rivaroxaban 2022-09 Yes 20mg Take 1 Ava ey (Xarelto) 0-23 tablet (20 Seyb old 20 MG oral 11:27: mg total) - Tablet 10 by mouth Externa daily. l Multiple 2022-09 Yes 1{capsu Take 1 Ava ey Vitamin 0-19 le} capsule by Seybol d (Multi-Eula 09:23: mouth - mins) oral 22 daily Externa Tablet l Eyota-3 2022-09 Yes [id number] 1000mg 1 capsule Julissa Fatty Acids 0-19 3 (1,000 mg Sey bold (Fish Oil) 09:23: total) - 1000 MG 22 every 24 Externa oral hours. l Capsule Topiramate 2022-09- Yes Take 1 Ava ey (Topamax) 0-16 11-22 tablet (25 Sey bold 25 MG oral 00:00: 05:59 mg total) - Tablet 00 :00 by mouth Externa daily for l 3 days, THEN 1 tablet (25 mg total) every 12 hours for 3 days, THEN 2 tablets (50 mg total) every 12 hours. Topiramate 2022-09- Yes Take 1 Ava ey (Topamax) 0-16 11-22 tablet (25 Sey bold 25 MG oral 00:00: 05:59 mg total) - Tablet 00 :00 by mouth Externa daily for l 3 days, THEN 1 tablet (25 mg total) every 12 hours for 3 days, THEN 2 tablets (50 mg total) every 12 hours. Aspirin 81 2022-09 Yes 81mg Take 1 Kelse y MG oral 0-13 tablet (81 Seybol d Chewable 11:08: mg total) - Tablet 57 by mouth Externa daily. l Cholecalcif 2022-09 Yes 5000U Take 5,000 Julissa aminah 125 0-13 units by Seybold MCG (5000 11:08: mouth - [place]) oral 57 daily. Externa Capsule l Cobalamin 2022-[address] Kelse y Combination 0-13 5,000 mcg Sey bold s (B-12) 11:08: under the - 100-5000 57 tongue Externa MCG daily l sublingual SL Tab Levalbutero 2022-09 Yes 1.25mg Q4H Inhale 3 Julissa l HCl 1.25 0-13 mL (1.25 Seybo ld MG/3ML 11:08: mg total) - inhalation 57 into the Exter na Inhalant lungs l Solution every 4 hours as needed. Multiple 2022-09 Yes 1{capsu Take 1 Ava ey Vitamin 0-13 le} capsule by Seybol d (Multi-Eula 11:08: mouth - mins) oral 57 daily Externa Tablet l Bioflavonoi 2022-09 Yes as Julissa d Products 0-13 directed Seybo ld (C 11:08: Orally - 1000-Biofla 57 Externa vonoids-Ros l e Hips) 1000-25 MG oral Capsule Magnesium 2022-09 Yes every 24 Ava ey 200 MG oral 0-13 hours Seybold Tablet 11:08: - 57 Externa l Eyota-3 2022-09 Yes [id number] 1000mg 1 capsule Julissa Fatty Acids 0-13 3 (1,000 mg Sey bold (Fish Oil) 11:08: total) - 1000 MG 57 every 24 Externa oral hours. l Capsule Rivaroxaban 2022-09 Yes 20mg Take 1 Ava ey (Xarelto) 0-13 tablet (20 Seyb old 20 MG oral 11:08: mg total) - Tablet 57 by mouth Externa daily. l Cholecalcif 2022-09 Yes 5000U Take 5,000 Julissa aminah 125 0-13 units by Seybold MCG (5000 11:08: mouth - [place]) oral 57 daily. Externa Capsule l Cobalamin 2022-[address] Kelse y Combination 0-13 5,000 mcg Sey bold s (B-12) 11:08: under the - 100-5000 57 tongue Externa MCG daily l sublingual SL Tab Levalbutero 2022-09 Yes 1.25mg Q4H Inhale 3 Julissa l HCl 1.25 0-13 mL (1.25 Seybo ld MG/3ML 11:08: mg total) - inhalation 57 into the Exter na Inhalant lungs l Solution every 4 hours as needed. Bioflavonoi 2022-09 Yes as Julissa d Products 0-13 directed Seybo ld (C 11:08: Orally - 1000-Biofla 57 Externa vonoids-Ros l e Hips) 1000-25 MG oral Capsule Magnesium 2022-09 Yes every 24 Ava ey 200 MG oral 0-13 hours Seybold Tablet 11:08: - 57 Externa l Topiramate 2022-09- Yes Take 1 Ava ey (Topamax) 0-13 11-19 tablet (25 Sey bold 25 MG oral 00:00: 05:59 mg total) - Tablet 00 :00 by mouth Externa daily for l 3 days, THEN 1 tablet (25 mg total) every 12 hours for 3 days, THEN 2 tablets (50 mg total) every 12 hours. Aspirin 81 2022-09 Yes 81mg Take 1 Kelse y MG oral 0-06 tablet (81 Seybol d Chewable 13:05: mg total) - Tablet 50 by mouth Externa daily. l Cholecalcif 2022-09 Yes 5000U Take 5,000 Julissa aminah 125 0-06 units by Seybold MCG (5000 13:05: mouth - UT) oral 50 daily. Externa Capsule l Cobalamin 2022-[address] Kelse y Combination 0-06 5,000 mcg Sey bold s (B-12) 13:05: under the - 100-5000 50 tongue Externa MCG daily l sublingual SL Tab Levalbutero 2022-09 Yes 1.25mg Q4H Inhale 3 Julissa l HCl 1.25 0-06 mL (1.25 Seybo ld MG/3ML 13:05: mg total) - inhalation 50 into the Exter na Inhalant lungs l Solution every 4 hours as needed. Multiple 2022-09 Yes 1{capsu Take 1 Ava ey Vitamin 0-06 le} capsule by Seybol d (Multi-Eula 13:05: mouth - mins) oral 50 daily Externa Tablet l Bioflavonoi 2022-09 Yes as Julissa d Products 0-06 directed Seybo ld (C 13:05: Orally - 1000-Biofla 50 Externa vonoids-Ros l e Hips) 1000-25 MG oral Capsule Magnesium 2022-09 Yes every 24 Ava ey 200 MG oral 0-06 hours Seybold Tablet 13:05: - 50 Externa l Eyota-3 2022-09 Yes [id number] 1000mg 1 capsule Julissa Fatty Acids 0-06 3 (1,000 mg Sey bold (Fish Oil) 13:05: total) - 1000 MG 50 every 24 Externa oral hours. l Capsule Rivaroxaban 2022-09 Yes 20mg Take 1 Ava ey (Xarelto) 0-06 tablet (20 Seyb old 20 MG oral 13:05: mg total) - Tablet 50 by mouth Externa daily. l Bumetanide 2022-09- No 1mg Take 1 Ava ey 1 MG oral 0-02 10-02 tablet (1 Seyb old Tablet 10:52: 00:00 mg total) - 48 :00 by mouth Externa daily. l Potassium 2022-09 No 10meq Take 1 Ava ey Chloride CR 0-02 10-02 capsule Seyb old 10 MEQ oral 10:52: 00:00 (10 mEq - Cap CR 01 :00 total) by Externa mouth 2 l times daily. Aimovig 140 Yes [id number] INJECT 1 Julissa MG/ML 9-28 PEN UNDER Seybold subcutaneou 00:00: THE SKIN 1 - s Solution 00 TIME Externa Auto-inject MONTHLY l or injection Aimovig 140 0 Yes [id number] INJECT 1 Julissa MG/ML 9-28 PEN UNDER Seybold subcutaneou 00:00: THE SKIN 1 - s Solution 00 TIME Externa Auto-inject MONTHLY l or injection Aimovig 140 2022-0 Yes [id number] INJECT 1 Julissa MG/ML 9-28 PEN UNDER Seybold subcutaneou 00:00: THE SKIN 1 - s Solution 00 TIME Externa Auto-inject MONTHLY l or injection Aimovig 140 2022-0 Yes [id number] INJECT 1 Julissa MG/ML 9-28 PEN UNDER Seybold subcutaneou 00:00: THE SKIN 1 - s Solution 00 TIME Externa Auto-inject MONTHLY l or injection Aimovig 140 2022-0 Yes [id number] INJECT 1 Julissa MG/ML 9-28 PEN UNDER Seybold subcutaneou 00:00: THE SKIN 1 - s Solution 00 TIME Externa Auto-inject MONTHLY l or injection Onabotulinu 2022- No [id number] 100U Julissa mtoxinA 06-20 Seybold [100 Units] 20:00: 20:06 - - Physician 00 :00 Externa Administere l d ([id number]) Onabotulinu 2022-2022- No [id number] 100U 100 unit, Julissa mtoxinA 06-20 Physician Seybol d [100 Units] 20:00: 20:06 Administer - - Physician 00 :00 ed, ONCE, Ext nnacy Administere 1 dose, On l d (J0585) Fri06/20/23 at 1500 Onabotulinu 2022- No [id number] 100U Julissa mtoxinA 06-20 Seybold [100 Units] 20:00: 20:06 - - Physician 00 :00 Externa Administere l d ([id number]) Onabotulinu 2022- No [id number] 100U 100 unit, Julissa mtoxinA 06-20 Physician Seybol d [100 Units] 20:00: 20:06 Administer - - Physician 00 :00 ed, ONCE, Ext nancy Administere 1 dose, On l d (J0585) Fri06/20/23 at 1500 Aspirin 81 2022-0 Yes 81mg Take 1 Kelse y MG oral - tablet (81 Seybol d Chewable 14:46: mg total) - Tablet 32 by mouth Externa daily. l Cholecalcif Yes 5000U Take 5,000 Julissa aminah 125 -22 units by Seybold MCG (5000 14:46: mouth - UT) oral 32 daily. Externa Capsule l Cobalamin [address] Kelse y Combination -22 5,000 mcg Sey bold s (B-12) 14:46: under the - 100-5000 32 tongue Externa MCG daily l sublingual SL Tab Levalbutero Yes 1.25mg Q4H Inhale 3 Julissa l HCl 1.25 9-22 mL (1.25 Seybo ld MG/3ML 14:46: mg total) - inhalation 32 into the Exter na Inhalant lungs l Solution every 4 hours as needed. Multiple Yes 1{capsu Take 1 Ava ey Vitamin - le} capsule by Seybol d (Multi-Eula 14:46: mouth - mins) oral 32 daily Externa Tablet l Bioflavonoi Yes as Julissa d Products - directed Seybo ld (C 14:46: Orally - 1000-Biofla 32 Externa vonoids-Ros l e Hips) 1000-25 MG oral Capsule Magnesium Yes every 24 Ava ey 200 MG oral 9-22 hours Seybold Tablet 14:46: - 32 Externa l Eyota-3 Yes [id number] 1000mg 1 capsule Julissa Fatty Acids 06-20 3 (1,000 mg Sey bold (Fish Oil) 14:46: total) - 1000 MG 32 every 24 Externa oral hours. l Capsule Rivaroxaban Yes 20mg Take 1 Ava ey (Xarelto) - tablet (20 Seyb old 20 MG oral 14:46: mg total) - Tablet 32 by mouth Externa daily. l Bumetanide Yes 1mg Take 1 Kelse y 1 MG oral -22 tablet (1 Seybo ld Tablet 14:46: mg total) - 32 by mouth Externa daily. l Potassium Yes 10meq Take 1 Kelse y Chloride CR -22 capsule Seybo ld 10 MEQ oral 14:46: (10 mEq - Cap CR 32 total) by Externa mouth 2 l times daily. Aspirin 81 Yes 81mg Take 1 Kelse y MG oral - tablet (81 Seybol d Chewable 14:46: mg total) - Tablet 32 by mouth Externa daily. l Cholecalcif Yes 5000U Take 5,000 Julissa aminah 125 9-22 units by Seybold MCG (5000 14:46: mouth - UT) oral 32 daily. Externa Capsule l Cobalamin Yes 5000ug Place Kelse y Combination 9-22 5,000 mcg Sey bold s (B-12) 14:46: under the - 100-5000 32 tongue Externa MCG daily l sublingual SL Tab Levalbutero Yes 1.25mg Q4H Inhale 3 Julissa l HCl 1.25 9-22 mL (1.25 Seybo ld MG/3ML 14:46: mg total) - inhalation 32 into the Exter na Inhalant lungs l Solution every 4 hours as needed. Multiple Yes 1{capsu Take 1 Ava ey Vitamin - le} capsule by Seybol d (Multi-Eula 14:46: mouth - mins) oral 32 daily Externa Tablet l Bioflavonoi Yes as Julissa d Products - directed Seybo ld (C 14:46: Orally - 1000-Biofla 32 Externa vonoids-Ros l e Hips) 1000-25 MG oral Capsule Magnesium Yes every 24 Ava ey 200 MG oral 9-22 hours Seybold Tablet 14:46: - 32 Externa l Eyota-3 Yes [id number] 1000mg 1 capsule Julissa Fatty Acids - 3 (1,000 mg Sey bold (Fish Oil) 14:46: total) - 1000 MG 32 every 24 Externa oral hours. l Capsule Rivaroxaban Yes 20mg Take 1 Ava ey (Xarelto) 9-22 tablet (20 Seyb old 20 MG oral 14:46: mg total) - Tablet 32 by mouth Externa daily. l Bumetanide Yes 1mg Take 1 Kelse y 1 MG oral -22 tablet (1 Seybo ld Tablet 14:46: mg total) - 32 by mouth Externa daily. l Potassium Yes 10meq Take 1 Kelse y Chloride CR - capsule Seybo ld 10 MEQ oral 14:46: (10 mEq - Cap CR 32 total) by Externa mouth 2 l times daily. Aspirin 81 Yes 81mg Take 1 Kelse y MG oral 9-22 tablet (81 Seybol d Chewable 14:46: mg total) - Tablet 32 by mouth Externa daily. l Cholecalcif Yes 5000U Take 5,000 Julissa aminah 125 9-22 units by Seybold MCG (5000 14:46: mouth - UT) oral 32 daily. Externa Capsule l Cobalamin Yes 5000ug Place Kelse y Combination 9-22 5,000 mcg Sey bold s (B-12) 14:46: under the - 100-5000 32 tongue Externa MCG daily l sublingual SL Tab Levalbutero Yes 1.25mg Q4H Inhale 3 Julissa l HCl 1.25 9-22 mL (1.25 Seybo ld MG/3ML 14:46: mg total) - inhalation 32 into the Exter na Inhalant lungs l Solution every 4 hours as needed. Multiple Yes 1{capsu Take 1 Ava ey Vitamin 9-22 le} capsule by Seybol d (Multi-Eula 14:46: mouth - mins) oral 32 daily Externa Tablet l Bioflavonoi Yes as Julissa d Products 9-22 directed Seybo ld (C 14:46: Orally - 1000-Biofla 32 Externa vonoids-Ros l e Hips) 1000-25 MG oral Capsule Magnesium Yes every 24 Ava ey 200 MG oral 9-22 hours Seybold Tablet 14:46: - 32 Externa l Eyota-3 Yes [id number] 1000mg 1 capsule Julissa Fatty Acids 9-22 3 (1,000 mg Sey bold (Fish Oil) 14:46: total) - 1000 MG 32 every 24 Externa oral hours. l Capsule Rivaroxaban Yes 20mg Take 1 Ava ey (Xarelto) 9-22 tablet (20 Seyb old 20 MG oral 14:46: mg total) - Tablet 32 by mouth Externa daily. l Fluticasone Yes [id number] INHALE ONE Julissa -Salmeterol 9-18 (1) PUFF Seyb old 250-50 00:00: INTO THE - MCG/ACT 00 LUNGS 2 Externa inhalation TIMES l AEROSOL DAILY. POWDER, BREATH ACTIVATED Eszopiclone Yes [id number] TAKE ONE Julissa 1 MG oral 9-18 (1) Seybold Tablet 00:00: TABLET(S) - 00 BY MOUTH Externa ONCE EVERY l NIGHT. Continuous Yes [id number] Check BS Julissa Blood Gluc 9-18 3 ACHS and Seybo ld Transmit 00:00: PRN. - (Dexcom G6 00 Externa Transmitter l ) does not apply Misc Fluticasone Yes [id number] INHALE ONE Julissa -Salmeterol 9-18 (1) PUFF Seyb old 250-50 00:00: INTO THE - MCG/ACT 00 LUNGS 2 Externa inhalation TIMES l AEROSOL DAILY. POWDER, BREATH ACTIVATED Eszopiclone 2022-0 Yes [id number] TAKE ONE Julissa 1 MG oral 9-18 (1) Seybold Tablet 00:00: TABLET(S) - 00 BY MOUTH Externa ONCE EVERY l NIGHT. Continuous Yes [id number] Check BS Julissa Blood Gluc 9-18 3 ACHS and Seybo ld Transmit 00:00: PRN. - (Dexcom G6 00 Externa Transmitter l ) does not apply Misc Fluticasone 2022-0 Yes [id number] INHALE ONE Julissa -Salmeterol 9-18 (1) PUFF Seyb old 250-50 00:00: INTO THE - MCG/ACT 00 LUNGS 2 Externa inhalation TIMES l AEROSOL DAILY. POWDER, BREATH ACTIVATED Eszopiclone 2022-0 Yes [id number] TAKE ONE Julissa 1 MG oral 9-18 (1) Seybold Tablet 00:00: TABLET(S) - 00 BY MOUTH Externa ONCE EVERY l NIGHT. Continuous Yes [id number] Check BS Julissa Blood Gluc 9-18 3 ACHS and Seybo ld Transmit 00:00: PRN. - (Dexcom G6 00 Externa Transmitter l ) does not apply Misc Fluticasone 2022-0 Yes [id number] INHALE ONE Julissa -Salmeterol 9-18 (1) PUFF Seyb old 250-50 00:00: INTO THE - MCG/ACT 00 LUNGS 2 Externa inhalation TIMES l AEROSOL DAILY. POWDER, BREATH ACTIVATED Eszopiclone 2022-0 Yes [id number] TAKE ONE Julissa 1 MG oral 9-18 (1) Seybold Tablet 00:00: TABLET(S) - 00 BY MOUTH Externa ONCE EVERY l NIGHT. Continuous 0 Yes [id number] Check BS Julissa Blood Gluc 9-18 3 ACHS and Seybo ld Transmit 00:00: PRN. - (Dexcom G6 00 Externa Transmitter l ) does not apply Misc Fluticasone 2022-0 Yes [id number] INHALE ONE Julissa -Salmeterol 9-18 (1) PUFF Seyb old 250-50 00:00: INTO THE - MCG/ACT 00 LUNGS 2 Externa inhalation TIMES l AEROSOL DAILY. POWDER, BREATH ACTIVATED Eszopiclone 2022-0 Yes [id number] TAKE ONE Julissa 1 MG oral 9-18 (1) Seybold Tablet 00:00: TABLET(S) - 00 BY MOUTH Externa ONCE EVERY l NIGHT. Continuous 2022-0 Yes [id number] Check BS Julissa Blood Gluc 9-18 3 [facility] and Seybo ld Transmit 00:00: PRN. - (Dexcom G6 00 Externa Transmitter l ) does not apply Misc Fluticasone 2022-0 Yes [id number] INHALE ONE Julissa -Salmeterol 9-18 (1) PUFF yb old 250-50 00:00: INTO THE - MCG/ACT 00 LUNGS 2 Externa inhalation TIMES l AEROSOL DAILY. POWDER, BREATH ACTIVATED Eszopiclone 2022-0 Yes [id number] TAKE ONE Julissa 1 MG oral 9-18 (1) Seybold Tablet 00:00: TABLET(S) - 00 BY MOUTH Externa ONCE EVERY l NIGHT. Continuous 0 Yes [id number] Check BS Julissa Blood Gluc 9-18 3 [facility] and Seybo ld Transmit 00:00: PRN. - (Dexcom G6 00 Externa Transmitter l ) does not apply Misc Fluticasone 0 2022- No [id number] INHALE ONE Julissa -Salmeterol 9-18 11-15 (1) PUFF Ferdinand bold 250-50 00:00: 00:00 INTO THE - MCG/ACT 00 :00 LUNGS 2 Externa inhalation TIMES l AEROSOL DAILY. POWDER, BREATH ACTIVATED Continuous 2022- No [id number] Check BS Julissa Blood Gluc 9-18 11-15 3 [facility] and Seyb old Transmit 00:00: 00:00 PRN. - (Dexcom G6 00 :00 Externa Transmitter l ) does not apply Misc Continuous 2022-0 Yes [id number] Pt to Julissa Blood Gluc 9-15 3 check BS Seybo ld Sensor 00:00: [facility]S and - (Dexcom G6 00 PRN. Externa Sensor) l does not apply Misc Continuous 2022-0 Yes [id number] Pt to Julissa Blood Gluc 9-15 3 check BS Seybo ld Facility Worker 00:00: [facility] and - (Dexcom G6 00 PRN. Externa Facility Worker) l does not apply Device Continuous 2023-0 Yes [id number] Pt to Julissa Blood Gluc 9-15 3 check BS Seybo ld Sensor 00:00: [facility] and - (Dexcom G6 00 PRN. Externa Sensor) l does not apply Misc Continuous 2023-0 Yes [id number] Pt to Julissa Blood Gluc 9-15 3 check BS Seybo ld Facility Worker 00:00: [facility] and - (Dexcom G6 00 PRN. Externa Facility Worker) l does not apply Device Continuous 2023-0 Yes [id number] Pt to Julissa Blood Gluc 9-15 3 check BS Seybo ld Sensor 00:00: [facility] and - (Dexcom G6 00 PRN. Externa Sensor) l does not apply Misc Continuous 2023-0 Yes [id number] Pt to Julissa Blood Gluc 9-15 3 check BS Seybo ld Facility Worker 00:00: [facility] and - (Dexcom G6 00 PRN. Externa Facility Worker) l does not apply Device Continuous 2023-0 Yes [id number] Pt to Julissa Blood Gluc 9-15 3 check BS Seybo ld Sensor 00:00: [facility] and - (Dexcom G6 00 PRN. Externa Sensor) l does not apply Misc Continuous 2023-0 Yes [id number] Pt to Julissa Blood Gluc 9-15 3 check BS Seybo ld Facility Worker 00:00: [facility] and - (Dexcom G6 00 PRN. Externa Facility Worker) l does not apply Device Continuous 2023-0 Yes [id number] Pt to Julissa Blood Gluc 9-15 3 check BS Seybo ld Sensor 00:00: [facility] and - (Dexcom G6 00 PRN. Externa Sensor) l does not apply Misc Continuous 2023-0 Yes [id number] Pt to Julissa Blood Gluc 9-15 3 check BS Seybo ld Facility Worker 00:00: [facility] and - (Dexcom G6 00 PRN. Externa Facility Worker) l does not apply Device Continuous 2023-0 Yes [id number] Pt to Julissa Blood Gluc 9-15 3 check BS Seybo ld Sensor 00:00: [facility] and - (Dexcom G6 00 PRN. Externa Sensor) l does not apply Misc Continuous 0 Yes [id number] Pt to Julissa Blood Gluc 9-15 3 check BS Seybo ld Facility Worker 00:00: [facility] and - (Dexcom G6 00 PRN. Externa Facility Worker) l does not apply Device Continuous 2022-0 Yes [id number] Pt to Julissa Blood Gluc 9-15 3 check BS Seybo ld Facility Worker 00:00: [facility] and - (Dexcom G6 00 PRN. Externa Facility Worker) l does not apply Device Continuous 0 2023- No [id number] Pt to Julissa Blood Gluc 9-15 11-15 3 check BS Seyb old Sensor 00:00: 00:00 [facility] and - (Dexcom G6 00 :00 PRN. Externa Sensor) l does not apply Misc Aspirin 81 Yes 81mg Take 1 Kelse y MG oral 9-13 tablet (81 Seybol d Chewable 09:47: mg total) - Tablet 57 by mouth Externa daily. l Cholecalcif Yes 5000U Take 5,000 Julissa aminah 125 9-13 units by Seybold MCG (5000 09:47: mouth - [place]) oral 57 daily. Externa Capsule l Cobalamin Yes 5000ug Place Kelse y Combination 9-13 5,000 mcg Ferdinand hayden s (B-12) 09:47: under the - 100-5000 57 tongue Externa MCG daily l sublingual SL Tab Levalbutero Yes 1.25mg Q4H Inhale 3 Julissa l HCl 1.25 9-13 mL (1.25 Seybo ld MG/3ML 09:47: mg total) - inhalation 57 into the Exter na Inhalant lungs l Solution every 4 hours as needed. Multiple Yes 1{capsu Take 1 Ava ey Vitamin 9-13 le} capsule by Seybol d (Multi-Eula 09:47: mouth - mins) oral 57 daily Externa Tablet l Bioflavonoi Yes as Julissa d Products 9-13 directed Seybo ld (C 09:47: Orally - 1000-Biofla 57 Externa vonoids-Ros l e Hips) 1000-25 MG oral Capsule Magnesium Yes every 24 Ava ey 200 MG oral 9-13 hours Seybold Tablet 09:47: - 57 Externa l Eyota-3 Yes [id number] 1000mg 1 capsule Julissa Fatty Acids - 3 (1,000 mg Sey bold (Fish Oil) 09:47: total) - 1000 MG 57 every 24 Externa oral hours. l Capsule Rivaroxaban Yes 20mg Take 1 Ava ey (Xarelto) - tablet (20 Seyb old 20 MG oral 09:47: mg total) - Tablet 57 by mouth Externa daily. l Bumetanide Yes 1mg Take 1 Kelse y 1 MG oral -13 tablet (1 Seybo ld Tablet 09:47: mg total) - 57 by mouth Externa daily. l Potassium Yes 10meq Take 1 Kelse y Chloride CR - capsule Seybo ld 10 MEQ oral 09:47: (10 mEq - Cap CR 57 total) by Externa mouth 2 l times daily. Continuous Yes [id number] Check BS Julissa Blood Gluc 9-13 3 [facility] and Seybo ld Facility Worker 00:00: PRN. - (FreeStyle 00 Externa Nichole 14 l Day [place]) does not apply Device Continuous Yes [id number] Check BS Julissa Blood Gluc 9-13 3 [facility] and Seybo ld Sensor 00:00: PRN. - (FreeStyle 00 Externa Nichole 14 l Day Sensor) does not apply Misc Ca, Mg, K, Yes [id number] 2.25g Take 2.25 Julissa and Na 9-06 g by mouth Seybold Oxybates 00:00: 2 times - (Xywav) 500 00 daily Take Ex terna MG/ML oral first dose l Solution at bed time and second dose after 4 hours. Ca, Mg, K, 2022-0 Yes [id number] 2.25g Take 2.25 Julissa and Na 9-06 g by mouth Seybold Oxybates 00:00: 2 times - (Xywav) 500 00 daily Take Ex terna MG/ML oral first dose l Solution at bed time and second dose after 4 hours. Ca, Mg, K, 2022-0 Yes [id number] 2.25g Take 2.25 Julissa and Na 9-06 g by mouth Seybold Oxybates 00:00: 2 times - (Xywav) 500 00 daily Take Ex terna MG/ML oral first dose l Solution at bed time and second dose after 4 hours. Ca, Mg, K, 2022-0 Yes [id number] 2.25g Take 2.25 Julissa and Na 9-06 g by mouth Seybold Oxybates 00:00: 2 times - (Xywav) 500 00 daily Take Ex terna MG/ML oral first dose l Solution at bed time and second dose after 4 hours. Ca, Mg, K, 2022-0 Yes [id number] 2.25g Take 2.25 Julissa and Na 9-06 g by mouth Seybold Oxybates 00:00: 2 times - (Xywav) 500 00 daily Take Ex terna MG/ML oral first dose l Solution at bed time and second dose after 4 hours. Ca, Mg, K, 2022-0 Yes [id number] 2.25g Take 2.25 Julissa and Na 9-06 g by mouth Seybold Oxybates 00:00: 2 times - (Xywav) 500 00 daily Take Ex terna MG/ML oral first dose l Solution at bed time and second dose after 4 hours. Ca, Mg, K, 2022-0 Yes [id number] 2.25g Take 2.25 Julissa and Na 9-06 g by mouth Seybold Oxybates 00:00: 2 times - (Xywav) 500 00 daily Take Ex terna MG/ML oral first dose l Solution at bed time and second dose after 4 hours. Ca, Mg, K, 2022-0 Yes [id number] 2.25g Take 2.25 Julissa and Na 9-06 g by mouth Seybold Oxybates 00:00: 2 times - (Xywav) 500 00 daily Take Ex terna MG/ML oral first dose l Solution at bed time and second dose after 4 hours. Ca, Mg, K, 2022-0 Yes [id number] 2.25g Take 2.25 Julissa and Na 9-06 g by mouth Seybold Oxybates 00:00: 2 times - (Xywav) 500 00 daily Take Ex terna MG/ML oral first dose l Solution at bed time and second dose after 4 hours. Aspirin 81 2023-0 Yes 81mg Take 1 Kelse y MG oral 05-30 tablet (81 Seybol d Chewable 13:20: mg total) - Tablet 35 by mouth Externa daily. l Cholecalcif Yes 5000U Take 5,000 Julissa aminah 125 05-30 units by Seybold MCG (5000 13:20: mouth - [place]) oral 35 daily. Externa Capsule l Cobalamin Yes 5000ug Place Kelse y Combination 05-30 5,000 mcg Sey bold s (B-12) 13:20: under the - 100-5000 35 tongue Externa MCG daily l sublingual SL Tab Levalbutero Yes 1.25mg Q4H Inhale 3 Julissa l HCl 1.25 05-30 mL (1.25 Seybo ld MG/3ML 13:20: mg total) - inhalation 35 into the Exter na Inhalant lungs l Solution every 4 hours as needed. Multiple Yes 1{capsu Take 1 Ava ey Vitamin 05-30 le} capsule by Seybol d (Multi-Eula 13:20: mouth - mins) oral 35 daily Externa Tablet l Bioflavonoi Yes as Julissa d Products 05-30 directed Seybo ld (C 13:20: Orally - 1000-Biofla 35 Externa vonoids-Ros l e Hips) 1000-25 MG oral Capsule Magnesium Yes every 24 Ava ey 200 MG oral 05-30 hours Seybold Tablet 13:20: - 35 Externa l Eyota-3 Yes [id number] 1000mg 1 capsule Julissa Fatty Acids 05-30 3 (1,000 mg Sey bold (Fish Oil) 13:20: total) - 1000 MG 35 every 24 Externa oral hours. l Capsule Rivaroxaban Yes 20mg Take 1 Ava ey (Xarelto) 05-30 tablet (20 Seyb old 20 MG oral 13:20: mg total) - Tablet 35 by mouth Externa daily. l Bumetanide Yes 1mg Take 1 Kelse y 1 MG oral 05-30 tablet (1 Seybo ld Tablet 13:20: mg total) - 35 by mouth Externa daily. l Potassium Yes 10meq Take 1 Kelse y Chloride CR 9-01 capsule Seybo ld 10 MEQ oral 13:20: (10 mEq - Cap CR 35 total) by Externa mouth 2 l times daily. Aspirin 81 Yes 81mg Take 1 Kelse y MG oral 05-30 tablet (81 Seybol d Chewable 13:20: mg total) - Tablet 35 by mouth Externa daily. l Cholecalcif Yes 5000U Take 5,000 Julissa aminah 125 05-30 units by Seybold MCG (5000 13:20: mouth - [place]) oral 35 daily. Externa Capsule l Cobalamin Yes 5000ug Place Kelse y Combination 05-30 5,000 mcg Sey bold s (B-12) 13:20: under the - 100-5000 35 tongue Externa MCG daily l sublingual SL Tab Levalbutero Yes 1.25mg Q4H Inhale 3 Julissa l HCl 1.25 05-30 mL (1.25 Seybo ld MG/3ML 13:20: mg total) - inhalation 35 into the Exter na Inhalant lungs l Solution every 4 hours as needed. Multiple Yes 1{capsu Take 1 Ava ey Vitamin 05-30 le} capsule by Seybol d (Multi-Eula 13:20: mouth - mins) oral 35 daily Externa Tablet l Bioflavonoi Yes as Julissa d Products 05-30 directed Seybo ld (C 13:20: Orally - 1000-Biofla 35 Externa vonoids-Ros l e Hips) 1000-25 MG oral Capsule Magnesium Yes every 24 Ava ey 200 MG oral 05-30 hours Seybold Tablet 13:20: - 35 Externa l Eyota-3 Yes [id number] 1000mg 1 capsule Julissa Fatty Acids 05-30 3 (1,000 mg Sey bold (Fish Oil) 13:20: total) - 1000 MG 35 every 24 Externa oral hours. l Capsule Rivaroxaban Yes 20mg Take 1 Ava ey (Xarelto) 05-30 tablet (20 Seyb old 20 MG oral 13:20: mg total) - Tablet 35 by mouth Externa daily. l Bumetanide Yes 1mg Take 1 Kelse y 1 MG oral 9-01 tablet (1 Seybo ld Tablet 13:20: mg total) - 35 by mouth Externa daily. l Potassium Yes 10meq Take 1 Kelse y Chloride CR 9-01 capsule Seybo ld 10 MEQ oral 13:20: (10 mEq - Cap CR 35 total) by Externa mouth 2 l times daily. Aspirin 81 Yes 81mg Take 1 Kelse y MG oral 8-30 tablet (81 Seybol d Chewable 11:28: mg total) - Tablet 50 by mouth Externa daily. l Cholecalcif Yes 5000U Take 5,000 Julissa aminah 125 8-30 units by Seybold MCG (5000 11:28: mouth - [place]) oral 50 daily. Externa Capsule l Cobalamin Yes 5000ug Place Kelse y Combination 8-30 5,000 mcg Sey bold s (B-12) 11:28: under the - 100-5000 50 tongue Externa MCG daily l sublingual SL Tab Levalbutero Yes 1.25mg Q4H Inhale 3 Julissa l HCl 1.25 8-30 mL (1.25 Seybo ld MG/3ML 11:28: mg total) - inhalation 50 into the Exter na Inhalant lungs l Solution every 4 hours as needed. Multiple Yes 1{capsu Take 1 Ava ey Vitamin 8-30 le} capsule by Seybol d (Multi-Eula 11:28: mouth - mins) oral 50 daily Externa Tablet l Bioflavonoi Yes as Julissa d Products 8-30 directed Seybo ld (C 11:28: Orally - 1000-Biofla 50 Externa vonoids-Ros l e Hips) 1000-25 MG oral Capsule Magnesium Yes every 24 Ava ey 200 MG oral 8-30 hours Seybold Tablet 11:28: - 50 Externa l Eyota-3 Yes [id number] 1000mg 1 capsule Julissa Fatty Acids 8-30 3 (1,000 mg Sey bold (Fish Oil) 11:28: total) - 1000 MG 50 every 24 Externa oral hours. l Capsule Rivaroxaban Yes 20mg Take 1 Ava ey (Xarelto) 8-30 tablet (20 Seyb old 20 MG oral 11:28: mg total) - Tablet 50 by mouth Externa daily. l Bumetanide 0 Yes 1mg Take 1 Kelse y 1 MG oral 8-30 tablet (1 Seybo ld Tablet 11:28: mg total) - 50 by mouth Externa daily. l Potassium 0 Yes 10meq Take 1 Kelse y Chloride CR 8-30 capsule Seybo ld 10 MEQ oral 11:28: (10 mEq - Cap CR 50 total) by Externa mouth 2 l times daily. Valproic 0 2023- No 250mg Take 1 Kelse y Acid 05-27-29 capsule Seybold (Depakene) 15:36: 00:00 (250 mg - 250 MG oral 13 :00 total) by Ext nancy Capsule mouth 2 l times daily. Ubrogepant 2022-0 Yes [id number] 100mg Take 1 Julissa (Ubrelvy) 8- tablet Seybold 100 MG oral 00:00: (100 mg - Tablet 00 total) by Externa mouth as l needed for migraine. Ubrogepant 2022-0 Yes [id number] 100mg Take 1 Julissa (Ubrelvy) 8-29 tablet Seybold 100 MG oral 00:00: (100 mg - Tablet 00 total) by Externa mouth as l needed for migraine. Ubrogepant 2022-0 Yes [id number] 100mg Take 1 Julissa (Ubrelvy) 8- tablet Seybold 100 MG oral 00:00: (100 mg - Tablet 00 total) by Externa mouth as l needed for migraine. Ubrogepant 2022-0 Yes [id number] 100mg Take 1 Julissa (Ubrelvy) 8-29 tablet Seybold 100 MG oral 00:00: (100 mg - Tablet 00 total) by Externa mouth as l needed for migraine. Ubrogepant 2022-0 Yes [id number] 100mg Take 1 Julissa (Ubrelvy) 8-29 tablet Seybold 100 MG oral 00:00: (100 mg - Tablet 00 total) by Externa mouth as l needed for migraine. Ubrogepant 2022-0 Yes [id number] 100mg Take 1 Julissa (Ubrelvy) 8-29 tablet Seybold 100 MG oral 00:00: (100 mg - Tablet 00 total) by Externa mouth as l needed for migraine. Ubrogepant 2023-0 Yes [id number] 100mg Take 1 Julissa (Ubrelvy) 8-29 tablet Seybold 100 MG oral 00:00: (100 mg - Tablet 00 total) by Externa mouth as l needed for migraine. Ubrogepant 2023-0 Yes [id number] 100mg Take 1 Julissa (Ubrelvy) 8-29 tablet Seybold 100 MG oral 00:00: (100 mg - Tablet 00 total) by Externa mouth as l needed for migraine. Ubrogepant 2023-0 Yes [id number] 100mg Take 1 Julissa (Ubrelvy) 8-29 tablet Seybold 100 MG oral 00:00: (100 mg - Tablet 00 total) by Externa mouth as l needed for migraine. Ubrogepant 2023-0 Yes [id number] 100mg Take 1 Julissa (Ubrelvy) 8-29 tablet Seybold 100 MG oral 00:00: (100 mg - Tablet 00 total) by Externa mouth as l needed for migraine. Ubrogepant 3-0 Yes [id number] 100mg Take 1 Julissa (Ubrelvy) 8-29 tablet Seybold 100 MG oral 00:00: (100 mg - Tablet 00 total) by Externa mouth as l needed for migraine. Ubrogepant 3-0 Yes [id number] 100mg Take 1 Julissa (Ubrelvy) 8-29 tablet Seybold 100 MG oral 00:00: (100 mg - Tablet 00 total) by Externa mouth as l needed for migraine. Aspirin 81 2022-0 Yes 81mg Take 1 Kelse y MG oral 8-28 tablet (81 Seybol d Chewable 09:28: mg total) - Tablet 32 by mouth Externa daily. l Cholecalcif 2022-0 Yes 5000U Take 5,000 Julissa aminah 125 8-28 units by Seybold MCG (5000 09:28: mouth - [place]) oral 32 daily. Externa Capsule l Cobalamin 2022-[address] Kelse y Combination 8-28 5,000 mcg Sey bold s (B-12) 09:28: under the - 100-5000 32 tongue Externa MCG daily l sublingual SL Tab Levalbutero 2023-0 Yes 1.25mg Q4H Inhale 3 Julissa l HCl 1.25 8- mL (1.25 Seybo ld MG/3ML 09:28: mg total) - inhalation 32 into the Exter na Inhalant lungs l Solution every 4 hours as needed. Multiple Yes 1{capsu Take 1 Ava ey Vitamin 05-26 le} capsule by Seybol d (Multi-Eula 09:28: mouth - mins) oral 32 daily Externa Tablet l Bioflavonoi Yes as Julissa d Products 05-26 directed Seybo ld (C 09:28: Orally - 1000-Biofla 32 Externa vonoids-Ros l e Hips) 1000-25 MG oral Capsule Magnesium Yes every 24 Ava ey 200 MG oral 8-28 hours Seybold Tablet 09:28: - 32 Externa l Eyota-3 Yes [id number] 1000mg 1 capsule Julissa Fatty Acids 05-26 3 (1,000 mg Sey bold (Fish Oil) 09:28: total) - 1000 MG 32 every 24 Externa oral hours. l Capsule Rivaroxaban Yes 20mg Take 1 Ava ey (Xarelto) 05-26 tablet (20 Seyb old 20 MG oral 09:28: mg total) - Tablet 32 by mouth Externa daily. l Valproic Yes 250mg Take 1 Julissa Acid 05-26 capsule Seybold (Depakene) 09:28: (250 mg - 250 MG oral 32 total) by Ext nancy Capsule mouth 2 l times daily. Bumetanide Yes 1mg Take 1 Kelse y 1 MG oral -28 tablet (1 Seybo ld Tablet 09:28: mg total) - 32 by mouth Externa daily. l Potassium Yes 10meq Take 1 Kelse y Chloride CR - capsule Seybo ld 10 MEQ oral 09:28: (10 mEq - Cap CR 32 total) by Externa mouth 2 l times daily. Aspirin 81 Yes 81mg Take 1 Kelse y MG oral 8-28 tablet (81 Seybol d Chewable 09:28: mg total) - Tablet 32 by mouth Externa daily. l Cholecalcif Yes 5000U Take 5,000 Julissa aminah 125 8- units by Seybold MCG (5000 09:28: mouth - [place]) oral 32 daily. Externa Capsule l Cobalamin Yes 5000ug Place Kelse y Combination 05-26 5,000 mcg Sey bold s (B-12) 09:28: under the - 100-5000 32 tongue Externa MCG daily l sublingual SL Tab Levalbutero Yes 1.25mg Q4H Inhale 3 Julissa l HCl 1.25 8 mL (1.25 Seybo ld MG/3ML 09:28: mg total) - inhalation 32 into the Exter na Inhalant lungs l Solution every 4 hours as needed. Multiple Yes 1{capsu Take 1 Ava ey Vitamin 05-26 le} capsule by Seybol d (Multi-Eula 09:28: mouth - mins) oral 32 daily Externa Tablet l Bioflavonoi Yes as Julissa d Products 05-26 directed Seybo ld (C 09:28: Orally - 1000-Biofla 32 Externa vonoids-Ros l e Hips) 1000-25 MG oral Capsule Magnesium Yes every 24 Ava ey 200 MG oral 8-28 hours Seybold Tablet 09:28: - 32 Externa l Eyota-3 Yes [id number] 1000mg 1 capsule Julissa Fatty Acids 05-26 3 (1,000 mg Sey bold (Fish Oil) 09:28: total) - 1000 MG 32 every 24 Externa oral hours. l Capsule Rivaroxaban Yes 20mg Take 1 Ava ey (Xarelto) 05-26 tablet (20 Seyb old 20 MG oral 09:28: mg total) - Tablet 32 by mouth Externa daily. l Bumetanide Yes 1mg Take 1 Kelse y 1 MG oral 8 tablet (1 Seybo ld Tablet 09:28: mg total) - 32 by mouth Externa daily. l Potassium Yes 10meq Take 1 Kelse y Chloride CR - capsule Seybo ld 10 MEQ oral 09:28: (10 mEq - Cap CR 32 total) by Externa mouth 2 l times daily. Cefpodoxime Yes 200mg Take 1 Darlene sey Proxetil 8-23 tablet Seybold 200 MG oral 00:00: (200 mg - Tablet 00 total) by Externa mouth l daily. Cefpodoxime 2023-0 Yes 200mg Take 1 Darlene sey Proxetil 8-23 tablet Seybold 200 MG oral 00:00: (200 mg - Tablet 00 total) by Externa mouth l daily. Cefpodoxime 2023-0 Yes 200mg Take 1 Darlene sey Proxetil 8-23 tablet Seybold 200 MG oral 00:00: (200 mg - Tablet 00 total) by Externa mouth l daily. Cefpodoxime 2023-0 Yes 200mg Take 1 Darlene sey Proxetil 8-23 tablet Seybold 200 MG oral 00:00: (200 mg - Tablet 00 total) by Externa mouth l daily. Cefpodoxime 2023-0 Yes 200mg Take 1 Darlene sey Proxetil 8-23 tablet Seybold 200 MG oral 00:00: (200 mg - Tablet 00 total) by Externa mouth l daily. Cefpodoxime 2023-0 Yes 200mg Take 1 Darlene sey Proxetil 8-23 tablet Seybold 200 MG oral 00:00: (200 mg - Tablet 00 total) by Externa mouth l daily. Cefpodoxime 2023-0 Yes 200mg Take 1 Darlene sey Proxetil 8-23 tablet Seybold 200 MG oral 00:00: (200 mg - Tablet 00 total) by Externa mouth l daily. Cefpodoxime 2023-0 Yes 200mg Take 1 Darlene sey Proxetil 8-23 tablet Seybold 200 MG oral 00:00: (200 mg - Tablet 00 total) by Externa mouth l daily. Cefpodoxime 2023-0 2023- No 200mg Take 1 Ke lsey Proxetil 8-23 10-02 tablet Seybold 200 MG oral 00:00: 00:00 (200 mg - Tablet 00 :00 total) by Externa mouth l daily. multivitami 2022-0 Yes 1{tbl} Take [address] [facility] per 8-14 tablet by [facility] tablet 16:33: mouth. [place] [id number] Center aspirin 81 2022-0 Yes 81mg Take 1 [facility] tablet (81 [facility] tablet 16:33: mg total) Medica l 21 by mouth. Kermit cholecalcif 0 Yes 5000U Take [address] [facility] [address] aminah, 8-14 capsule [facility] vitamin D3, 16:33: (5,000 Medi jeanette (VITAMIN 21 Units Center D3) 125 mcg total) by (5,000 mouth. unit) capsule cyanocobala [address] min, 8-14 tablet [facility] vitamin 16:33: (5,000 mcg Medi jeanette B-12, 5,000 21 total) Center mcg Subl under the tongue. cycloSPORIN Yes 1[drp] [address] [facility] 8-14 [facility] (RESTASIS) 16:33: Medical 0.05 % 21 Center ophthalmic emulsion fluticasone 0 Yes 2{puff} Inhale [address] [facility] [address] propion-sylvia 8-14 puffs by Luke s meteroL 16:33: mouth via Medic al (ADVAIR) 21 inhaler. Center 250-50 mcg/dose diskus inhaler levalbutero Yes 1{puff} Inhale 1-[address] [facility] [address] [facility] (XOPENEX 8-14 puffs by [facility] HFA) 45 16:33: mouth via Medic al mcg/actuati 21 inhaler. Cent er on inhaler famotidine 0 Yes 20mg Q.5D Take 1 [facility] (PEPCID) 20 8-14 tablet (20 Maxi kes MG tablet 16:33: mg total) Med ical 21 by mouth 2 Center (two) times daily. busPIRone 2022-0 Yes 5mg [id number] Take [address] [facility] (BUSPAR) 5 8-14 [id number] tablet (5 [facility] MG tablet 16:33: 3D mg total) Med ical 21 by mouth 3 Center (three) times daily. fluvastatin 2022-0 Yes 20mg QD Take [address] [facility] (LESCOL) 20 8-14 capsule [facility] MG capsule 16:33: (20 mg Medic al 21 total) by Center mouth nightly. buPROPion 2022-0 Yes 150mg QD Take 1 [facility] (WELLBUTRIN 8-14 tablet [facility] XL) 150 MG 16:33: (150 mg Medi jeanette 24 hr 21 total) by Center tablet mouth daily. FLUoxetine 2022-0 Yes 40mg QD Take 1 [facility] (PROzac) 40 8-14 capsule [facility] capsule 16:33: (40 mg Medic al 21 total) by Center mouth daily. orphenadrin 2022-0 Yes 100mg QD Take [address] [facility] (NORFLEX) 8-14 tablet [facility] 100 mg 16:33: (100 mg Medical tablet 21 total) by Center mouth daily. timoloL 2022-0 Yes 1[drp] QD Place 1 [facility] (BETIMOL) 05-12 drop into [facility] 0.5 % 16:33: both eyes Medical ophthalmic 21 daily. Center solution levalbutero 2022- No 1.25mg Take [address] [facility] (XOPENEX) 05-1214 (1.25 mg Glenna es 1.25 mg/3 15:21: 00:00 total) by Me dical mL 54 :00 nebulizati Center nebulizer on every 4 solution (four) hours as needed for Wheezing. valproic 0 2023- No 250mg Q.5D Take 1 [facility] acid 05-12 [facility] (DEPAKENE) 00:00: 23:59 (250 mg Med ical 250 mg 00 :00 total) by Center capsule mouth 2 (two) times daily. Eszopiclone 2022-0 Yes [id number] TAKE ONE Julissa 1 MG oral 8-11 (1) Seybold Tablet 00:00: TABLET(S) - 00 BY MOUTH Externa ONCE EVERY l NIGHT. Eszopiclone 2022-0 Yes [id number] TAKE ONE Julissa 1 MG oral 8-11 (1) Seybold Tablet 00:00: TABLET(S) - 00 BY MOUTH Externa ONCE EVERY l NIGHT. Eszopiclone 3-0 Yes [id number] TAKE ONE Julissa 1 MG oral 8-11 (1) Seybold Tablet 00:00: TABLET(S) - 00 BY MOUTH Externa ONCE EVERY l NIGHT. Eszopiclone 3-0 Yes [id number] TAKE ONE Julissa 1 MG oral 8-11 (1) Seybold Tablet 00:00: TABLET(S) - 00 BY MOUTH Externa ONCE EVERY l NIGHT. Eszopiclone 3-0 Yes [id number] TAKE ONE Julissa 1 MG oral 8-11 (1) Seybold Tablet 00:00: TABLET(S) - 00 BY MOUTH Externa ONCE EVERY l NIGHT. Eszopiclone 2022-0 Yes [id number] TAKE ONE Julissa 1 MG oral 8-11 (1) Seybold Tablet 00:00: TABLET(S) - 00 BY MOUTH Externa ONCE EVERY l NIGHT. Metoprolol 2022-0 Yes 25mg Take 1 Kelse y Succinate 8-09 tablet (25 Seyb old 25 MG oral 00:00: mg total) - TABLET SR 00 by mouth Naphthalene Operator a 24 HR daily. l Metoprolol 2022-0 Yes 25mg Take 1 Kelse y Succinate 8-09 tablet (25 Seyb old 25 MG oral 00:00: mg total) - TABLET SR 00 by mouth Naphthalene Operator a 24 HR daily. l Metoprolol 2022-0 Yes 25mg Take 1 Kelse y Succinate 8-09 tablet (25 Seyb old 25 MG oral 00:00: mg total) - TABLET SR 00 by mouth Naphthalene Operator a 24 HR daily. l multivitami 0 Yes 1{tbl} Take [address] [facility] per 05-06 tablet by [facility] tablet 14:30: mouth. Medical 06 Center aspirin 81 0 Yes 81mg Take 1 [facility] EC 05-06 tablet (81 [facility] tablet 14:30: mg total) Medica l 06 by mouth. Center cholecalcif Yes 5000U Take [address] [facility] aminah, 05-06 capsule [facility] vitamin D3, 14:30: (5,000 Medi jeanette (VITAMIN 06 Units Center D3) 125 mcg total) by (5,000 mouth. unit) capsule cyanocobala Yes 5000ug Place [address] min, 05-06 tablet [facility] vitamin 14:30: (5,000 mcg Medi jeanette B-12, 5,000 06 total) Center mcg Subl under the tongue. cycloSPORIN Yes 1[drp] [address] E 05-06 [facility] (RESTASIS) 14:30: Medical 0.05 % 06 Center ophthalmic emulsion fluticasone Yes 2{puff} Inhale [address] [facility] propion-sylvia 05-06 puffs by [facility] meteroL 14:30: mouth via Medic al (ADVAIR) 06 inhaler. Center 250-50 mcg/dose diskus inhaler levalbutero 2022-0 Yes 1{puff} Inhale 1-[address] [facility] [address] [facility] (XOPENEX 8-08 puffs by [facility] HFA) 45 14:30: mouth via [facility] mcg/actuati 06 inhaler. Cent er on inhaler famotidine 2022-0 Yes 20mg Q.5D Take 1 [facility] (PEPCID) 20 8-08 tablet (20 Maxi kes [facility] tablet 14:30: mg total) Med ical 06 by mouth Center in the morning and 1 tablet (20 mg total) before bedtime. busPIRone 2022-0 Yes 5mg [id number] Take [address] [facility] (BUSPAR) 5 8-08 [id number] tablet (5 [facility] tablet 14:30: 3D mg total) Med ical 06 by mouth 3 Center (three) times daily. fluvastatin 2022-0 Yes 20mg QD Take [address] [facility] (LESCOL) 20 8-08 capsule [facility] capsule 14:30: (20 mg Medic al 06 total) by Center mouth nightly. buPROPion 2022-0 Yes 150mg QD [facility] (WELLBUTRIN 8-08 tablet [facility] XL) 150 MG 14:30: (150 mg Medi jeanette 24 hr 06 total) by Center tablet mouth in the morning. FLUoxetine 2022-0 Yes 40mg QD Take [facility] (PROzac[facility] 40 8-08 capsule [facility] capsule 14:30: (40 mg Medic al 06 total) by Center mouth in the morning. levalbutero 2022-0 Yes 1.25mg Take [address] [facility] (XOPENEX) 8-08 (1.25 mg [facility] 1.25 mg/3 14:30: total) by Med ical mL 06 nebulizati Center nebulizer on every 4 solution (four) hours as needed for Wheezing. orphenadrin 2022-0 Yes 100mg QD Take [address] [facility] (NORFLEX) 8-08 tablet [facility] 100 mg 14:30: (100 mg Medical tablet 06 total) by Center mouth in the morning. timoloL 2022-0 Yes 1[drp] QD Place 1 [facility] (BETIMOL[facility] 8-08 drop into [facility] 0.5 % 14:30: both eyes Medical ophthalmic 06 in the Center solution morning. multivitami Yes 1{tbl} Take [address] [facility] per 8-08 tablet by [facility] tablet 14:30: mouth. Medical 06 Center aspirin 81 2022-0 Yes 81mg Take 1 [facility] EC 8-[facility] tablet (81 [facility] tablet 14:30: mg total) Medica l 06 by mouth. Center cholecalcif 0 Yes 5000U Take [address] [facility] aminah, 8-08 capsule [facility] vitamin D3, 14:30: (5,000 Medi jeanette (VITAMIN 06 Units Center D3) 125 mcg total) by (5,000 mouth. unit) capsule cyanocobala Yes 5000ug Place [address] min, 8-08 tablet [facility] vitamin 14:30: (5,000 mcg Medi jeanette B-12, 5,000 06 total) Center mcg Subl under the tongue. cycloSPORIN Yes 1[drp] [address] [facility] 8-08 [facility] (RESTASIS) 14:30: Medical 0.05 % 06 Center ophthalmic emulsion fluticasone Yes 2{puff} Inhale [address] [facility] propion-sylvia 8-08 puffs by Luke s meteroL 14:30: mouth via Medic al (ADVAIR) 06 inhaler. Kermit 250-50 mcg/dose diskus inhaler levalbutero Yes 1{puff} Inhale 1-[address] [facility] (XOPENEX 8-08 puffs by [facility] HFA) 45 14:30: mouth via Medic al mcg/actuati 06 inhaler. Cent er on inhaler famotidine Yes 20mg Q.5D Take 1 [facility] (PEPCID) 20 8-08 tablet (20 Maxi kes MG tablet 14:30: mg total) Med ical 06 by mouth Center in the morning and 1 tablet (20 mg total) before bedtime. busPIRone 2022-0 Yes 5mg [id number] Take [address] [facility] (BUSPAR) 5 8-08 [id number] tablet (5 [facility] tablet 14:30: 3D mg total) Med ical 06 by mouth 3 Center (three) times daily. fluvastatin 0 Yes 20mg QD Take [address] [facility] (LESCOL) 20 8-08 capsule [facility] capsule 14:30: (20 mg Medic al 06 total) by Center mouth nightly. buPROPion 2023-0 Yes 150mg QD Take 1 [facility] (WELLBUTRIN 8-08 tablet [facility] XL) 150 MG 14:30: (150 mg Medi jeanette 24 hr 06 total) by Center tablet mouth in the morning. FLUoxetine 2023-0 Yes 40mg QD Take 1 [facility] (PROzac) 40 8-08 capsule [facility] capsule 14:30: (40 mg Medic al 06 total) by Center mouth in the morning. levalbutero 2023-0 Yes 1.25mg Take [address] [facility] (XOPENEX) 8-08 (1.25 mg Luke s 1.25 mg/3 14:30: total) by Med ical mL 06 nebulizati Center nebulizer on every 4 solution (four) hours as needed for Wheezing. orphenadrin 2023-0 Yes 100mg QD Take [address] [facility] (NORFLEX) 8-08 tablet [facility] 100 mg 14:30: (100 mg Medical tablet 06 total) by Center mouth in the morning. timoloL 3-0 Yes 1[drp] QD Place 1 [facility] (BETIMOL[facility] 8-08 drop into [facility] 0.5 % 14:30: both eyes Medical ophthalmic 06 in the Center solution morning. potassium 3-0 2022- No 10meq Q.5D Take [address] [facility] chloride 8- 08-08 tablet (10 [facility] (KLOR-CON-M 10:13: 00:00 mEq total) Medical ) 10 MEQ CR 36 :00 by mouth Cent er tablet in the morning and 1 tablet (10 mEq total) before bedtime. metoprolol 3-0 2022- No 12.5mg Q.5D Take 0.[address] [facility] succinate 8-08 08-08 tablets [facility] (TOPROL-XL) 10:13: 00:00 (12.5 mg M edical 25 MG 24 hr 36 :00 total) by [facility] tablet mouth 2 (two) times daily. potassium 2023-0 2022- No 10meq Q.5D Take [address] [facility] chloride 8-08 08-08 tablet (10 [facility] (KLOR-CON-M 10:13: 00:00 mEq total) Medical ) 10 MEQ CR 36 :00 by mouth Cent er tablet in the morning and 1 tablet (10 mEq total) before bedtime. metoprolol 3-0 2023- No 12.5mg Q.5D Take 0.[address] [facility] succinate 8-08 tablets [facility] (TOPROL-XL) 10:13: 00:00 (12.5 mg M edical 25 MG 24 hr 36 :00 total) by [facility] tablet mouth 2 (two) times daily. potassium 2023-0 2022- No 10meq Q.5D Take [address] [facility] chloride 05-06- tablet (10 [facility] (KLOR-CON-M 10:13: 00:00 mEq total) Medical ) 10 MEQ CR 36 :00 by mouth Cent er tablet in the morning and 1 tablet (10 mEq total) before bedtime. metoprolol 2022-0 2022- No 12.5mg Q.5D Take 0.[address] [facility] succinate 05-06- tablets [facility] (TOPROL-XL) 10:13: 00:00 (12.5 mg M edical 25 MG 24 hr 36 :00 total) by [facility] tablet mouth 2 (two) times daily. prochlorper 3-0 2023- No 25mg Place [address] [facility] [address] [facility] azine 05-06- suppositor [facility] (COMPAZINE) 10:09: 00:00 y (25 mg M edical 25 MG 22 :00 total) Center suppository rectally every 12 (twelve) hours as needed for Nausea. prochlorper 2023-0 2023- No 25mg Place [address] [facility] [address] [facility] azine 05-06- suppositor [facility] (COMPAZINE) 10:09: 00:00 y (25 mg M edical 25 MG 22 :00 total) Center suppository rectally every 12 (twelve) hours as needed for Nausea. prochlorper 3-0 2023- No 25mg Place [address] [facility] [address] [facility] azine 05-06- suppositor [facility] (COMPAZINE) 10:09: 00:00 y (25 mg M edical 25 MG 22 :00 total) Center suppository rectally every 12 (twelve) hours as needed for Nausea. pantoprazol 3-0 2023- No 40mg QD Take [address] [facility] e 05-06-08 tablet (40 [facility] (PROTONIX) 10:09: 00:00 mg total) M edical 40 MG 09 :00 by mouth Center tablet in the morning. Per patient he takes it twice a day. pantoprazol 2023-0 2023- No 40mg QD Take [address] [facility] e 05-06-08 tablet (40 [facility] (PROTONIX) 10:09: 00:00 mg total) M edical 40 MG 09 :00 by mouth Center tablet in the morning. Per patient he takes it twice a day. pantoprazol 2023-0 2023- No 40mg QD Take [address] [facility] e 05-06-08 tablet (40 [facility] (PROTONIX) 10:09: 00:00 mg total) M edical 40 MG 09 :00 by mouth Center tablet in the morning. Per patient he takes it twice a day. mirtazapine 2023-0 2023- No 7.5mg QD Take [address] [facility] [address] [facility] (REMERON) 05-06 tablet [facility] 7.5 MG 10:07: 00:00 (7.5 mg Medical tablet 56 :00 total) by Center mouth nightly. mirtazapine 2023-0 2023- No 7.5mg QD Take [address] [facility] [address] [facility] (REMERON) 05-06- tablet [facility] 7.5 MG 10:07: 00:00 (7.5 mg Medical tablet 56 :00 total) by Center mouth nightly. mirtazapine 2023-0 2023- No 7.5mg QD Take [address] [facility] [address] [facility] (REMERON) 05-06 tablet [facility] 7.5 MG 10:07: 00:00 (7.5 mg Medical tablet 56 :00 total) by Center mouth nightly. Restasis 0 Yes [id number] INSTILL K elsey MultiDose 7-18 ONE (1) Seybold 0.05 % 00:00: DROP(S) IN - ophthalmic 00 EACH EYE Exter na Emulsion TWICE A l DAY. Restasis 2022-0 Yes [id number] INSTILL K elsey MultiDose 7-18 ONE (1) Seybold 0.05 % 00:00: DROP(S) IN - ophthalmic 00 EACH EYE Exter na Emulsion TWICE A l DAY. Restasis 2022-0 Yes [id number] INSTILL K elsey MultiDose 7-18 ONE (1) Seybold 0.05 % 00:00: DROP(S) IN - ophthalmic 00 EACH EYE Exter na Emulsion TWICE A l DAY. Restasis Yes [id number] INSTILL K elsey MultiDose 7-18 ONE (1) Seybold 0.05 % 00:00: DROP(S) IN - ophthalmic 00 EACH EYE Exter na Emulsion TWICE A l DAY. Restasis Yes [id number] INSTILL K else[facility] MultiDose 7-18 ONE (1) Seybold 0.05 % 00:00: DROP(S) IN - ophthalmic 00 EACH EYE Exter na Emulsion TWICE A l DAY. Restasis Yes [id number] INSTILL K elsey MultiDose 7-18 ONE (1) Seybold 0.05 % 00:00: DROP(S) IN - ophthalmic 00 EACH EYE Exter na Emulsion TWICE A l DAY. Restasis Yes [id number] INSTILL K elsey MultiDose 7-18 ONE (1) Seybold 0.05 % 00:00: DROP(S) IN - ophthalmic 00 EACH EYE Exter na Emulsion TWICE A l DAY. Resta Yes [id number] INSTILL K elsey MultiDose 7-18 ONE (1) Seybold 0.05 % 00:00: DROP(S) IN - ophthalmic 00 EACH EYE Exter na Emulsion TWICE A l DAY. Restasis Yes [id number] INSTILL K elsey MultiDose 7-18 ONE (1) Seybold 0.05 % 00:00: DROP(S) IN - ophthalmic 00 EACH EYE Exter na Emulsion TWICE A l DAY. Restasis Yes [id number] INSTILL K elsey MultiDose 7-18 ONE (1) Seybold 0.05 % 00:00: DROP(S) IN - ophthalmic 00 EACH EYE Exter na Emulsion TWICE A l DAY. Restasis Yes [id number] INSTILL K else[facility] MultiDose 7-18 ONE (1) Seybold 0.05 % 00:00: DROP(S) IN - ophthalmic 00 EACH EYE Exter na Emulsion TWICE A l DAY. Restasis Yes [id number] INSTILL K elsey MultiDose 7-18 ONE (1) Seybold 0.05 % 00:00: DROP(S) IN - ophthalmic 00 EACH EYE Exter na Emulsion TWICE A l DAY. Restasis 2022- No [id number] INSTILL Julissa MultiDose 04-15-15 ONE (1) Seybol d 0.05 % 00:00: 00:00 DROP(S) IN - ophthalmic 00 :00 EACH EYE Exter na Emulsion TWICE A l DAY. Pantoprazol 3-0 Yes 40mg Take 1 [facility] e Sodium 40 7-15 tablet (40 Se ybold MG oral 00:00: mg total) - Tablet 00 by mouth 2 Externa Delayed times l Response daily. Pantoprazol 3-0 Yes 40mg Take 1 [facility] Sodium 40 7-15 tablet (40 Se ybold MG oral 00:00: mg total) - Tablet 00 by mouth 2 Externa Delayed times l Response daily. Pantoprazol 3-0 Yes 40mg Take 1 [facility] Sodium 40 7-15 tablet (40 Se ybold MG oral 00:00: mg total) - Tablet 00 by mouth 2 Externa Delayed times l Response daily. Pantoprazol 3-0 Yes 40mg Take 1 [facility] Sodium 40 7-15 tablet (40 Se ybold MG oral 00:00: mg total) - Tablet 00 by mouth 2 Externa Delayed times l Response daily. Pantoprazol 3-0 Yes 40mg Take 1 [facility] Sodium 40 7-15 tablet (40 Se ybold MG oral 00:00: mg total) - Tablet 00 by mouth 2 Externa Delayed times l Response daily. Pantoprazol 3-0 Yes 40mg Take 1 [facility] Sodium 40 7-15 tablet (40 Se ybold MG oral 00:00: mg total) - Tablet 00 by mouth 2 Externa Delayed times l Response daily. Pantoprazol 2023-0 Yes 40mg Take 1 [facility] Sodium 40 7-15 tablet (40 Se ybold MG oral 00:00: mg total) - Tablet 00 by mouth 2 Externa Delayed times l Response daily. Pantoprazol 2023-0 Yes 40mg Take 1 [facility] Sodium 40 7-15 tablet (40 Se ybold MG oral 00:00: mg total) - Tablet 00 by mouth 2 Externa Delayed times l Response daily. Pantoprazol 2023-0 Yes 40mg Take 1 [facility] Sodium 40 7-15 tablet (40 Se ybold MG oral 00:00: mg total) - Tablet 00 by mouth 2 Externa Delayed times l Response daily. Pantoprazol 3-0 Yes 40mg Take 1 [facility] Sodium 40 7-15 tablet (40 Se ybold MG oral 00:00: mg total) - Tablet 00 by mouth 2 Externa Delayed times l Response daily. Pantoprazol 2023-0 Yes 40mg Take 1 [facility] e Sodium 40 7-15 tablet (40 Se ybold MG oral 00:00: mg total) - Tablet 00 by mouth 2 Externa Delayed times l Response daily. Pantoprazol 3-0 Yes 40mg Take 1 [facility] e Sodium 40 7-15 tablet (40 Se ybold MG oral 00:00: mg total) - Tablet 00 by mouth 2 Externa Delayed times l Response daily. Pantoprazol 2023-0 2023- No 40mg Take 1 Darlene sey e Sodium 40 7-15 11-15 tablet (40 S eybold MG oral 00:00: 00:00 mg total) - Tablet 00 :00 by mouth 2 Externa Delayed times l Response daily. Ca, Mg, K, 3-0 Yes 2.25g Take 2.25 K elsey and Na 7-13 g by mouth Seybold Oxybates 00:00: 2 times - (Xywav) 500 00 daily Take Ex terna MG/ML oral first dose l Solution at bed time and second dose after 4 hours Ca, Mg, K, 3-0 Yes 2.25g Take 2.25 K elsey and Na 7-13 g by mouth Seybold Oxybates 00:00: 2 times - (Xywav) 500 00 daily Take Ex terna MG/ML oral first dose l Solution at bed time and second dose after 4 hours Ca, Mg, K, 3-0 Yes 2.25g Take 2.25 K elsey and Na 7-13 g by mouth Seybold Oxybates 00:00: 2 times - (Xywav) 500 00 daily Take Ex terna MG/ML oral first dose l Solution at bed time and second dose after 4 hours Ca, Mg, K, 3-0 Yes 2.25g Take 2.25 K elsey and Na 7-13 g by mouth Seybold Oxybates 00:00: 2 times - (Xywav) 500 00 daily Take Ex terna MG/ML oral first dose l Solution at bed time and second dose after 4 hours Ca, Mg, K, 2022-0 2022- No 2.25g Take 2.25 Julissa and Na 7-13 09-06 g by mouth Seybol d Oxybates 00:00: 00:00 2 times - (Xywav) 500 00 :00 daily Take Ex terna MG/ML oral first dose l Solution at bed time and second dose after 4 hours busPIRone 0 Yes [id number] 5mg Take 1 K [facility] HCl 5 MG 7-07 tablet (5 Seybol d oral Tablet 00:00: mg total) - 00 by mouth 3 Externa times l daily busPIRone 0 Yes [id number] 5mg Take 1 K [facility] HCl 5 MG 7-07 tablet (5 Seybol d oral Tablet 00:00: mg total) - 00 by mouth 3 Externa times l daily busPIRone 0 Yes [id number] 5mg Take 1 K [facility] HCl 5 MG 7-07 tablet (5 Seybol d oral Tablet 00:00: mg total) - 00 by mouth 3 Externa times l daily busPIRone 0 Yes [id number] 5mg Take 1 K [facility] HCl 5 MG 7-07 tablet (5 Seybol d oral Tablet 00:00: mg total) - 00 by mouth 3 Externa times l daily busPIRone 0 Yes [id number] 5mg Take 1 K [facility] HCl 5 MG 7-07 tablet (5 Seybol d oral Tablet 00:00: mg total) - 00 by mouth 3 Externa times l daily busPIRone 0 Yes [id number] 5mg Take 1 K [facility] HCl 5 MG 7-07 tablet (5 Seybol d oral Tablet 00:00: mg total) - 00 by mouth 3 Externa times l daily busPIRone 0 Yes [id number] 5mg Take 1 K [facility] HCl 5 MG 7-07 tablet (5 Seybol d oral Tablet 00:00: mg total) - 00 by mouth 3 Externa times l daily busPIRone 0 Yes [id number] 5mg Take 1 K [facility] HCl 5 MG 7-07 tablet (5 Seybol d oral Tablet 00:00: mg total) - 00 by mouth 3 Externa times l daily busPIRone 2022-0 Yes [id number] 5mg Take 1 K [facility] HCl 5 MG 7-07 tablet (5 Seybol d oral Tablet 00:00: mg total) - 00 by mouth 3 Externa times l daily busPIRone 2022-0 Yes [id number] 5mg Take 1 K [facility] HCl 5 MG 7-07 tablet (5 Seybol d oral Tablet 00:00: mg total) - 00 by mouth 3 Externa times l daily busPIRone 2022-0 Yes [id number] 5mg Take 1 K else[facility] HCl 5 MG 7-07 tablet (5 Seybol d oral Tablet 00:00: mg total) - 00 by mouth 3 Externa times l daily busPIRone 0 Yes [id number] 5mg Take 1 K elsey HCl 5 MG 7-07 tablet (5 Seybol d oral Tablet 00:00: mg total) - 00 by mouth 3 Externa times l daily busPIRone 0 Yes [id number] 5mg Take 1 K [facility]y HCl 5 MG 7-07 tablet (5 Seybol d oral Tablet 00:00: mg total) - 00 by mouth 3 Externa times l daily Eszopiclone 0 Yes [id number] 1mg Take 1 K [facility] (Lunesta) 1 7-07 tablet (1 Sey bold MG oral 00:00: mg total) - Tablet 00 by mouth Externa nightly l Aspirin 81 2022-0 Yes 81mg Take 1 K[facility] MG oral 6-19 tablet (81 Seybol d Chewable 10:33: mg total) - Tablet 12 by mouth Externa daily l Cholecalcif 2022-0 Yes 5000U Take 5,000 Julissa aminah 125 6-19 units by Seybold MCG (5000 10:33: mouth - UT) oral 12 daily Externa Capsule l Cobalamin 2022-[address] Kelse y Combination 6-19 5,000 mcg Sey bold s (B-12) 10:33: under the - 100-5000 12 tongue Externa MCG daily l sublingual SL Tab Levalbutero 2023-0 Yes 1.25mg Q4H Inhale 3 Julissa l HCl 1.25 6-19 mL (1.25 Seybo ld MG/3ML 10:33: mg total) - inhalation 12 into the Exter na Inhalant lungs l Solution every 4 hours as needed Multiple 2022- Yes 1{capsu Take 1 Ava ey Vitamin 6-19 le} capsule by Seybol d (Multi-Eula 10:33: mouth - mins) oral 12 daily Externa Tablet l Bioflavonoi Yes as Julissa d Products 6-19 directed Seybo ld (C 10:33: Orally - 1000-Biofla 12 Externa vonoids-Ros l e Hips) 1000-25 MG oral Capsule Magnesium Yes every 24 Ava ey 200 MG oral 6-19 hours Seybold Tablet 10:33: - 12 Externa l Eyota-3 Yes [id number] 1000mg 1 capsule Julissa Fatty Acids 6-19 3 (1,000 mg Sey bold (Fish Oil) 10:33: total) - 1000 MG 12 every 24 Externa oral hours l Capsule Rivaroxaban Yes 20mg Take 1 Ava ey (Xarelto) 6-19 tablet (20 Seyb old 20 MG oral 10:33: mg total) - Tablet 12 by mouth Externa daily l Aspirin 81 Yes 81mg Take 1 K[facility] MG oral 6-19 tablet (81 Seybol d Chewable 10:33: mg total) - Tablet 12 by mouth Externa daily l Cholecalcif Yes 5000U Take 5,000 Julissa aminah 125 6-19 units by Seybold MCG (5000 10:33: mouth - UT) oral 12 daily Externa Capsule l Cobalamin Yes 5000ug Place Kelse y Combination 6-19 5,000 mcg Sey bold s (B-12) 10:33: under the - 100-5000 12 tongue Externa MCG daily l sublingual SL Tab Levalbutero Yes 1.25mg Q4H Inhale 3 Julissa l HCl 1.25 6-19 mL (1.25 Seybo ld MG/3ML 10:33: mg total) - inhalation 12 into the Exter na Inhalant lungs l Solution every 4 hours as needed Multiple Yes 1{capsu Take 1 Ava ey Vitamin 6-19 le} capsule by Seybol d (Multi-Eula 10:33: mouth - mins) oral 12 daily Externa Tablet l Bioflavonoi Yes as Julissa d Products 6-19 directed Seybo ld (C 10:33: Orally - 1000-Biofla 12 Externa vonoids-Ros l e Hips) 1000-25 MG oral Capsule Magnesium Yes every 24 Ava ey 200 MG oral 6-19 hours Seybold Tablet 10:33: - 12 Externa l Eyota-3 Yes [id number] 1000mg 1 capsule Julissa Fatty Acids - 3 (1,000 mg Sey bold (Fish Oil) 10:33: total) - 1000 MG 12 every 24 Externa oral hours l Capsule Rivaroxaban Yes 20mg Take 1 [facility]va [facility] (Xarelto) 6-19 tablet (20 Seyb old 20 MG oral 10:33: mg total) - Tablet 12 by mouth Externa daily l Dapaglifloz Yes [id number] 5mg Take 5 mg Julissa in 6-13 by mouth Seybold Propanediol 00:00: daily - (Farxiga) 5 00 Externa MG oral l Tablet Trulicity 3 Yes [id number] 3mg Inject 3 Julissa MG/0.5ML 6-13 3 mg into Seybold subcutaneou 00:00: the skin - s Solution 00 once a Externa Pen-injecto week l r Naltrexone Yes [id number] 2{capsu Take 2 Julissa HCl, Pain, 6-13 le} capsules Seybo ld 4.5 MG oral 00:00: by mouth - Capsule 00 daily Externa l Erenumab-ao Yes [id number] 140mg Inject 1 Julissa oe 6-13 mL (140 mg Seybold (Aimovig) 00:00: total) - 140 MG/ML 00 into the Naphthalene Operator a subcutaneou skin once l s Solution a month Auto-inject or injection Dapaglifloz Yes [id number] 5mg Take 5 mg Julissa in 6-13 by mouth Seybold Propanediol 00:00: daily - (Farxiga) 5 00 Externa MG oral l Tablet Trulicity 3 Yes [id number] 3mg Inject 3 Julissa MG/0.5ML 6-13 3 mg into Seybold subcutaneou 00:00: the skin - s Solution 00 once a Externa Pen-injecto week l r Naltrexone Yes [id number] 2{capsu Take 2 Julissa HCl, Pain, 6-13 le} capsules Seybo ld 4.5 MG oral 00:00: by mouth - Capsule 00 daily Externa l Erenumab-ao Yes [id number] 140mg Inject 1 Julissa oe 6-13 mL (140 mg Seybold (Aimovig) 00:00: total) - 140 MG/ML 00 into the Naphthalene Operator a subcutaneou skin once l s Solution a month Auto-inject or injection Dapaglifloz Yes [id number] 5mg Take 5 mg Julissa in 6-13 by mouth Seybold Propanediol 00:00: daily - (Farxiga) 5 00 Externa MG oral l Tablet Trulicity 3 Yes [id number] 3mg Inject 3 Julissa MG/0.5ML 6-13 3 mg into Seybold subcutaneou 00:00: the skin - s Solution 00 once a Externa Pen-injecto week l r Erenumab-ao Yes [id number] 140mg Inject 1 Julissa oe 6-13 mL (140 mg Seybold (Aimovig) 00:00: total) - 140 MG/ML 00 into the Naphthalene Operator a subcutaneou skin once l s Solution a month Auto-inject or injection Dapaglifloz 2022-0 Yes [id number] 5mg Take 5 mg Julissa in 6-13 by mouth Seybold Propanediol 00:00: daily - (Farxiga) 5 00 Externa MG oral l Tablet Trulicity 3 Yes [id number] 3mg Inject 3 Julissa MG/0.5ML 6-13 3 mg into Seybold subcutaneou 00:00: the skin - s Solution 00 once a Externa Pen-injecto week l r Erenumab-ao Yes [id number] 140mg Inject 1 Julissa oe 6-13 mL (140 mg Seybold (Aimovig) 00:00: total) - 140 MG/ML 00 into the Naphthalene Operator a subcutaneou skin once l s Solution a month Auto-inject or injection Dapaglifloz 2022-0 Yes [id number] 5mg Take 5 mg Julissa in 6-13 by mouth Seybold Propanediol 00:00: daily - (Farxiga) 5 00 Externa MG oral l Tablet Trulicity 3 2022-0 Yes [id number] 3mg Inject 3 Julissa MG/0.5ML 6-13 3 mg into Seybold subcutaneou 00:00: the skin - s Solution 00 once a Externa Pen-injecto week l r Erenumab-ao 2022-0 Yes [id number] 140mg Inject 1 Julissa oe 6-13 mL (140 mg Seybold (Aimovig) 00:00: total) - 140 MG/ML 00 into the Naphthalene Operator a subcutaneou skin once l s Solution a month Auto-inject or injection Dapaglifloz 2022-0 Yes [id number] 5mg Take 5 mg Julissa in 6-13 by mouth Seybold Propanediol 00:00: daily - (Farxiga) 5 00 Externa MG oral l Tablet Trulicity 3 2022-0 Yes [id number] 3mg Inject 3 Julissa MG/0.5ML 6-13 3 mg into Seybold subcutaneou 00:00: the skin - s Solution 00 once a Externa Pen-injecto week l r Erenumab-ao 2022-0 Yes [id number] 140mg Inject 1 Julissa oe 6-13 mL (140 mg Seybold (Aimovig) 00:00: total) - 140 MG/ML 00 into the Naphthalene Operator a subcutaneou skin once l s Solution a month Auto-inject or injection Dapaglifloz 2022-0 Yes [id number] 5mg Take 5 mg Julissa in 6-13 by mouth Seybold Propanediol 00:00: daily - (Farxiga) 5 00 Externa MG oral l Tablet Trulicity 3 2022-0 Yes [id number] 3mg Inject 3 Julissa MG/0.5ML 6-13 3 mg into Seybold subcutaneou 00:00: the skin - s Solution 00 once a Externa Pen-injecto week l r Erenumab-ao 2022-0 Yes [id number] 140mg Inject 1 Julissa oe 6-13 mL (140 mg Seybold (Aimovig) 00:00: total) - 140 MG/ML 00 into the Naphthalene Operator a subcutaneou skin once l s Solution a month Auto-inject or injection Dapaglifloz 2022-0 Yes [id number] 5mg Take 5 mg Julissa in 6-13 by mouth Seybold Propanediol 00:00: daily - (Farxiga) 5 00 Externa MG oral l Tablet Trulicity 3 2022-0 Yes [id number] 3mg Inject 3 Julissa MG/0.5ML 6-13 3 mg into Seybold subcutaneou 00:00: the skin - s Solution 00 once a Externa Pen-injecto week l r Erenumab-ao 0 Yes [id number] 140mg Inject 1 Julissa oe 6-13 mL (140 mg Seybold (Aimovig) 00:00: total) - 140 MG/ML 00 into the Naphthalene Operator a subcutaneou skin once l s Solution a month Auto-inject or injection Dapaglifloz 3-0 Yes [id number] 5mg Take 5 mg Julissa in 6-13 by mouth Seybold Propanediol 00:00: daily - (Farxiga) 5 00 Externa MG oral l Tablet Dapaglifloz 3-0 Yes [id number] 5mg Take 5 mg Julissa in 6-13 by mouth Seybold Propanediol 00:00: daily - (Farxiga) 5 00 Externa MG oral l Tablet Dapaglifloz 2023-0 Yes [id number] 5mg Take 5 mg Julissa in 6-13 by mouth Seybold Propanediol 00:00: daily - (Farxiga) 5 00 Externa MG oral l Tablet Dapaglifloz 2023-0 Yes [id number] 5mg Take 5 mg Julissa in 6-13 by mouth Seybold Propanediol 00:00: daily - (Farxiga) 5 00 Externa MG oral l Tablet Dapaglifloz 2023-0 Yes [id number] 5mg Take 5 mg Julissa in 6-13 by mouth Seybold Propanediol 00:00: daily - (Farxiga) 5 00 Externa MG oral l Tablet Dapaglifloz 2023-0 Yes [id number] 5mg Take 5 mg Julissa in 6-13 by mouth Seybold Propanediol 00:00: daily - (Farxiga) 5 00 Externa MG oral l Tablet Eszopiclone Yes [id number] 1mg Take 1 K elsey (Lunesta) 1 6-13 tablet (1 Sey bold MG oral 00:00: mg total) - Tablet 00 by mouth Externa nightly l Trulicity 3 Yes [id number] 3mg Inject 3 Julissa MG/0.5ML 6-13 3 mg into Seybold subcutaneou 00:00: the skin - s Solution 00 once a Externa Pen-injecto week l r Naltrexone Yes [id number] 2{capsu Take 2 Julissa HCl, Pain, 6-13 le} capsules Seybo ld 4.5 MG oral 00:00: by mouth - Capsule 00 daily Externa l Dapaglifloz Yes [id number] 5mg Take 5 mg Julissa in 6-13 by mouth Seybold Propanediol 00:00: daily - (Farxiga) 5 00 Externa MG oral l Tablet Trulicity 3 Yes [id number] 3mg Inject 3 Julissa MG/0.5ML 6-13 3 mg into Seybold subcutaneou 00:00: the skin - s Solution 00 once a Externa Pen-injecto week l r Naltrexone 0 Yes [id number] 2{capsu Take 2 Julissa HCl, Pain, 6-13 le} capsules Seybo ld 4.5 MG oral 00:00: by mouth - Capsule 00 daily Externa l Erenumab-ao Yes [id number] 140mg Inject 1 Julissa oe 6-13 mL (140 mg Seybold (Aimovig) 00:00: total) - 140 MG/ML 00 into the Naphthalene Operator a subcutaneou skin once l s Solution a month Auto-inject or injection Trulicity 3 2022-0 2022- No [id number] 3mg Inject 3 Julissa MG/0.5ML 6-13 10-02 3 mg into Seybold subcutaneou 00:00: 00:00 the skin - s Solution 00 :00 once a Externa Pen-injecto week l r Naltrexone 2022-0 2022- No [id number] 2{capsu Take 2 Julissa HCl, Pain, 03-11 08-30 le} capsules Seyb old 4.5 MG oral 00:00: 00:00 by mouth - Capsule 00 :00 daily Externa l Eszopiclone 2022-0 2022- No [id number] 3mg Take 1 Julissa (Lunesta) 3 03-11 tablet (3 Se ybold MG oral 00:00: 00:00 mg total) - Tablet 00 :00 by mouth Externa nightly l Take immediatel y before bedtime Ranolazine 2022- No Ranolazine Julissa ER 1000 MG 03-10 Seybold oral Pack 17:05: 00:00 - 52 :00 Externa l Prochlorper 2022- No 25mg Apply 1 Ke lsey azine 25 MG 03-10 suppositor S eybold rectal 17:05: 00:00 y (25 mg - Suppository 34 :00 total) Naphthalene Operator a rectally l Isosorbide 2022- No Isosorbide Julissa Dinitrate 03-10 Dinitrate Seyb old 10 MG oral 17:05: 00:00 - Tablet 15 :00 Externa l Aspirin 81 0 Yes 81mg Take 1 Kelse y MG oral 6-12 tablet (81 Seybol d Chewable 16:24: mg total) - Tablet 41 by mouth Externa daily l Cholecalcif 0 Yes 5000U Take 5,000 Julissa aminah 125 6-12 units by Seybold MCG (5000 16:24: mouth - UT) oral 41 daily Externa Capsule l Cobalamin 2022-[address] Kelse y Combination 6-12 5,000 mcg Sey bold s (B-12) 16:24: under the - 100-5000 41 tongue Externa MCG daily l sublingual SL Tab Levalbutero Yes 1.25mg Q4H Inhale 3 Julissa l HCl 1.25 6-12 mL (1.25 Seybo ld MG/3ML 16:24: mg total) - inhalation 41 into the Exter na Inhalant lungs l Solution every 4 hours as needed Multiple Yes 1{capsu Take 1 Ava ey Vitamin 6-12 le} capsule by Seybol d (Multi-Eula 16:24: mouth - mins) oral 41 daily Externa Tablet l Bioflavonoi Yes as Julissa d Products 6-12 directed Seybo ld (C 16:24: Orally - 1000-Biofla 41 Externa vonoids-Ros l e Hips) 1000-25 MG oral Capsule Magnesium 0 Yes every 24 Ava ey 200 MG oral 6-12 hours Seybold Tablet 16:24: - 41 Externa l Eyota-3 Yes 1000mg 1 capsule Darlene sey Fatty Acids 6-12 (1,000 mg Sey bold (Fish Oil) 16:24: total) - 1000 MG 41 every 24 Externa oral hours l Capsule Rivaroxaban Yes 20mg Take 1 Ava ey (Xarelto) 6-12 tablet (20 Seyb old 20 MG oral 16:24: mg total) - Tablet 41 by mouth Externa daily l Metoprolol 2022-0 2022- No .5{tbl} Take 0.5 Julissa Succinate 6-08 06-08 tablets by Sey bold 25 MG oral 09:40: 00:00 mouth 2 - Capsule ER 47 :00 times Externa 24 Hour daily l Sprinkle Torsemide 0 Yes 5mg Take 0.5 Ava ey 10 MG oral 6-08 tablets (5 Sey bold Tablet 00:00: mg total) - 00 by mouth 2 Externa times l daily Metoprolol 0 Yes .5{tbl} Take 0.5 Julissa Succinate 6-08 tablets by Seyb old 25 MG oral 00:00: mouth 2 - Capsule ER 00 times Externa 24 Hour daily l Sprinkle Sacubitril- 2022-0 Yes .5{tbl} Take 0.5 Julissa Valsartan 6-08 tablets by Seyb old (Entresto) 00:00: mouth 2 - 24-26 MG 00 times Externa oral Tablet daily l Torsemide 0 Yes 5mg Take 0.5 Ava ey 10 MG oral 6-08 tablets (5 Sey bold Tablet 00:00: mg total) - 00 by mouth 2 Externa times l daily Metoprolol 2023-0 Yes .5{tbl} Take 0.5 Julissa Succinate 6-08 tablets by Seyb old 25 MG oral 00:00: mouth 2 - Capsule ER 00 times Externa 24 Hour daily l Sprinkle Sacubitril- 2022-0 Yes .5{tbl} Take 0.5 Julissa Valsartan 6-08 tablets by Seyb old (Entresto) 00:00: mouth 2 - 24-26 MG 00 times Externa oral Tablet daily l Torsemide 2022-0 Yes 5mg Take 0.5 Ava ey 10 MG oral 6-08 tablets (5 Sey bold Tablet 00:00: mg total) - 00 by mouth 2 Externa times l daily Metoprolol 2022-0 Yes .5{tbl} Take 0.5 Julissa Succinate 6-08 tablets by Seyb old 25 MG oral 00:00: mouth 2 - Capsule ER 00 times Externa 24 Hour daily l Sprinkle Sacubitril- 2022-0 Yes .5{tbl} Take 0.5 Julissa Valsartan 6-08 tablets by Seyb old (Entresto) 00:00: mouth 2 - 24-26 MG 00 times Externa oral Tablet daily l Potassium 2022-0 2022- No 1 tab Oral K elsey 95 MG oral 03-04- for 14 Seybol d Tablet 14:05: 00:00 days - 01 :00 Externa l Metoprolol 2022-0 2022- No 1{capsu 1 capsule Julissa Succinate 03-04 le} every 24 Seybo ld 25 MG oral 14:03: 00:00 hours - Capsule ER 51 :00 Externa 24 Hour l Sprinkle Diltiazem 2022-0 2022- No 180mg 1 capsule K elsey HCl Coated 03-04- (180 mg Seybo ld Beads 14:02: 00:00 total) - (Cardizem 42 :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 rivaroxaban 2022-0 Yes 20mg QD Take [address] [facility] (Xarelto) 6-02 tablet (20 Luke s 20 mg 00:00: mg total) Medical tablet 00 by mouth Center in the morning. rivaroxaban 2022-0 Yes 20mg QD Take [address] [facility] (Xarelto) 6-02 tablet (20 Luke s 20 mg 00:00: mg total) Medical tablet 00 by mouth Center in the morning. Flecainide 2022-0 Yes 50mg Take 1 Kelse y Acetate 50 6-02 tablet (50 Sey bold MG oral 00:00: mg total) - Tablet 00 by mouth 2 Externa times l daily Flecainide 2022-0 Yes [id number] 50mg Take 1 Julissa Acetate 50 6-02 tablet (50 Sey bold MG oral 00:00: mg total) - Tablet 00 by mouth 2 Externa times l daily Flecainide 2022-0 Yes [id number] 50mg Take 1 Julissa Acetate 50 6-02 tablet (50 Sey bold MG oral 00:00: mg total) - Tablet 00 by mouth 2 Externa times l daily flecainide 2022-0 2022- No 50mg Take [address] [facility] (TAMBOCOR) 02-28-08 tablet (50 Maxi kes 50 MG 00:00: 00:00 mg total) Medica l tablet 00 :00 by mouth Center every 12 (twelve) hours. flecainide 2022-0 2022- No 50mg Take [address] [facility] (TAMBOCOR) - 08-08 tablet (50 Maxi kes 50 MG 00:00: 00:00 mg total) Medica l tablet 00 :00 by mouth Center every 12 (twelve) hours. flecainide 2022-0 2022- No 50mg Take [address] [facility] (TAMBOCOR) - 08-08 tablet (50 Maxi kes 50 MG 00:00: 00:00 mg total) Medica l tablet 00 :00 by mouth Center every 12 (twelve) hours. torsemide 2022-0 2022- No 5mg Take 0.[address] [facility] (DEMADEX) 02-28- tablets (5 Glenna es 10 MG 00:00: 23:59 mg total) Medica l tablet 00 :00 by mouth Center in the morning and 0.5 tablets (5 mg total) in the evening. Do all this for 60 days. torsemide 2023-0 2023- No 5mg Take 0.[address] [facility] (DEMADEX) 02-28 08-01 tablets (5 Glenna es 10 MG 00:00: 23:59 mg total) Medica l tablet 00 :00 by mouth Center in the morning and 0.5 tablets (5 mg total) in the evening. Do all this for 60 days. torsemide 2022-0 2023- No 5mg Take 0.[address] [facility] (DEMADEX) 02-28- tablets (5 Glenna es 10 MG 00:00: 23:59 mg total) Medica l tablet 00 :00 by mouth Center in the morning and 0.5 tablets (5 mg total) in the evening. Do all this for 60 days. Potassium 2022-0 Yes 10meq Take 1 Kelse y Chloride CR 5-23 capsule Seybo ld 10 MEQ oral 00:00: (10 mEq - Cap CR 00 total) by Externa mouth 2 l times daily Potassium 2022-0 Yes 10meq Take 1 Kelse y Chloride CR 5-23 capsule Seybo ld 10 MEQ oral 00:00: (10 mEq - Cap CR 00 total) by Externa mouth 2 l times daily Potassium 3-0 Yes 10meq Take 1 Kelse y Chloride CR 5-23 capsule Seybo ld 10 MEQ oral 00:00: (10 mEq - Cap CR 00 total) by Externa mouth 2 l times daily Torsemide 2022-0 2022- No 10mg Take 1 Kelse y 10 MG oral 5-22 06-06 tablet (10 Se ybold Tablet 00:00: 00:00 mg total) - 00 :00 by mouth 2 Externa times l daily Aspirin 81 2022-0 Yes 81mg Take 1 Kelse y MG oral 5-19 tablet (81 Seybol d Chewable 14:37: mg total) - Tablet 25 by mouth Externa daily l Cholecalcif 2022-0 Yes 5000U Take 5,000 Julissa aminah 125 5-19 units by Seybold MCG (5000 14:37: mouth - UT) oral 25 daily Externa Capsule l Cobalamin 2022-[address] Kelse y Combination 5-19 5,000 mcg Sey bold s (B-12) 14:37: under the - 100-5000 25 tongue Externa MCG daily l sublingual SL Tab Levalbutero Yes 1.25mg Q4H Inhale 3 Julissa l HCl 1.25 5-19 mL (1.25 Seybo ld MG/3ML 14:37: mg total) - inhalation 25 into the Exter na Inhalant lungs l Solution every 4 hours as needed Multiple Yes 1{capsu Take 1 Ava ey Vitamin 5-19 le} capsule by Seybol d (Multi-Eula 14:37: mouth - mins) oral 25 daily Externa Tablet l Metoprolol Yes .5{tbl} Take 0.5 Julissa Succinate 5-19 tablets by Seyb old 25 MG oral 14:37: mouth 2 - Capsule ER 25 times Externa 24 Hour daily l Sprinkle Promethazin Yes [id number] 12.5mg Q.25D Take 1 Julissa e HCl 12.5 5-17 tablet Seybold MG oral 00:00: (12.5 mg - Tablet 00 total) by Externa mouth l every 6 hours as needed for nausea Promethazin Yes [id number] 12.5mg Q.25D Take 1 Julissa e HCl 12.5 5-17 tablet Seybold MG oral 00:00: (12.5 mg - Tablet 00 total) by Externa mouth l every 6 hours as needed for nausea Promethazin Yes [id number] 12.5mg Q.25D Take 1 Julissa e HCl 12.5 5-17 tablet Seybold MG oral 00:00: (12.5 mg - Tablet 00 total) by Externa mouth l every 6 hours as needed for nausea busPIRone Yes [id number] 5mg Take 1 K elsey HCl 5 MG 5-17 tablet (5 Seybol d oral Tablet 00:00: mg total) - 00 by mouth 3 Externa times l daily Promethazin Yes [id number] 12.5mg Q.25D Take 1 Julissa e HCl 12.5 5-17 tablet Seybold MG oral 00:00: (12.5 mg - Tablet 00 total) by Externa mouth l every 6 hours as needed for nausea busPIRone Yes [id number] 5mg Take 1 K elsey HCl 5 MG 5-17 tablet (5 Seybol d oral Tablet 00:00: mg total) - 00 by mouth 3 Externa times l daily Promethazin Yes [id number] 12.5mg Q.25D Take 1 Julissa e HCl 12.5 5-17 tablet Seybold MG oral 00:00: (12.5 mg - Tablet 00 total) by Externa mouth l every 6 hours as needed for nausea busPIRone Yes [id number] 5mg Take 1 K elsey HCl 5 MG 5-17 tablet (5 Seybol d oral Tablet 00:00: mg total) - 00 by mouth 3 Externa times l daily Promethazin Yes [id number] 12.5mg Q.25D Take 1 Julissa e HCl 12.5 5-17 tablet Seybold MG oral 00:00: (12.5 mg - Tablet 00 total) by Externa mouth l every 6 hours as needed for nausea Promethazin 2022- No [id number] 12.5mg Q.25D Take 1 Julissa e HCl 12.5 5-17 08-30 tablet Seybol d MG oral 00:00: 00:00 (12.5 mg - Tablet 00 :00 total) by Externa mouth l every 6 hours as needed for nausea Naltrexone Yes [id number] 2{capsu Take 2 Julissa HCl, Pain, 5-16 le} capsules Seybo ld 4.5 MG oral 00:00: by mouth - Capsule 00 daily Externa l Naltrexone 0 Yes [id number] 2{capsu Take 2 Julissa HCl, Pain, 5-16 le} capsules Seybo ld 4.5 MG oral 00:00: by mouth - Capsule 00 daily Externa l Naltrexone 0 202- No [id number] 2{capsu Take 2 Julissa HCl, Pain, 5-16 06-13 le} capsules Seyb old 4.5 MG oral 00:00: 00:00 by mouth - Capsule 00 :00 daily Externa l Famotidine Yes [id number] 20mg Take 1 Julissa (PEPCID) 20 5-15 tablet (20 Se ybold MG oral 00:00: mg total) - tablet 00 by mouth 2 Externa times l daily Fluvastatin Yes [id number] 20mg Take 1 Julissa Sodium 20 5-15 capsule Seybold MG oral 00:00: (20 mg - Capsule 00 total) by Externa mouth l nightly Famotidine 3-0 Yes [id number] 20mg Take 1 Julissa (PEPCID) 20 5-15 tablet (20 Se ybold MG oral 00:00: mg total) - tablet 00 by mouth 2 Externa times l daily Fluvastatin 2023-0 Yes [id number] 20mg Take 1 Julissa Sodium 20 5-15 capsule Seybold MG oral 00:00: (20 mg - Capsule 00 total) by Externa mouth l nightly Famotidine 2022-0 Yes [id number] 20mg Take 1 Julissa (PEPCID) 20 5-15 tablet (20 Se ybold MG oral 00:00: mg total) - tablet 00 by mouth 2 Externa times l daily Fluvastatin 3-0 Yes [id number] 20mg Take 1 Julissa Sodium 20 5-15 capsule Seybold MG oral 00:00: (20 mg - Capsule 00 total) by Externa mouth l nightly Famotidine 3-0 Yes [id number] 20mg Take 1 Julissa (PEPCID) 20 5-15 tablet (20 Se ybold MG oral 00:00: mg total) - tablet 00 by mouth 2 Externa times l daily Fluvastatin 3-0 Yes [id number] 20mg Take 1 Julissa Sodium 20 5-15 capsule Seybold MG oral 00:00: (20 mg - Capsule 00 total) by Externa mouth l nightly Famotidine 3-0 Yes [id number] 20mg Take 1 Julissa (PEPCID) 20 5-15 tablet (20 Se ybold MG oral 00:00: mg total) - tablet 00 by mouth 2 Externa times l daily Fluvastatin 2023-0 Yes [id number] 20mg Take 1 Julissa Sodium 20 5-15 capsule Seybold MG oral 00:00: (20 mg - Capsule 00 total) by Externa mouth l nightly Famotidine 2023-0 Yes [id number] 20mg Take 1 Julissa (PEPCID) 20 5-15 tablet (20 Se ybold MG oral 00:00: mg total) - tablet 00 by mouth 2 Externa times l daily Fluvastatin 2023-0 Yes [id number] 20mg Take 1 Julissa Sodium 20 5-15 capsule Seybold MG oral 00:00: (20 mg - Capsule 00 total) by Externa mouth l nightly Famotidine 3-0 Yes [id number] 20mg Take 1 Julissa (PEPCID) 20 5-15 tablet (20 Se ybold MG oral 00:00: mg total) - tablet 00 by mouth 2 Externa times l daily Fluvastatin 2023-0 Yes [id number] 20mg Take 1 Julissa Sodium 20 5-15 capsule Seybold MG oral 00:00: (20 mg - Capsule 00 total) by Externa mouth l nightly Famotidine 2022-0 Yes [id number] 20mg Take 1 Julissa (PEPCID) 20 5-15 tablet (20 Se ybold MG oral 00:00: mg total) - tablet 00 by mouth 2 Externa times l daily Fluvastatin 3-0 Yes [id number] 20mg Take 1 Julissa Sodium 20 5-15 capsule Seybold MG oral 00:00: (20 mg - Capsule 00 total) by Externa mouth l nightly Famotidine 3-0 Yes [id number] 20mg Take 1 Julissa (PEPCID) 20 5-15 tablet (20 Se ybold MG oral 00:00: mg total) - tablet 00 by mouth 2 Externa times l daily Fluvastatin 3-0 Yes [id number] 20mg Take 1 Julissa Sodium 20 5-15 capsule Seybold MG oral 00:00: (20 mg - Capsule 00 total) by Externa mouth l nightly Famotidine 3-0 Yes [id number] 20mg Take 1 Julissa (PEPCID) 20 5-15 tablet (20 Se ybold MG oral 00:00: mg total) - tablet 00 by mouth 2 Externa times l daily Fluvastatin 2023-0 Yes [id number] 20mg Take 1 Julissa Sodium 20 5-15 capsule Seybold MG oral 00:00: (20 mg - Capsule 00 total) by Externa mouth l nightly Famotidine 2023-0 Yes [id number] 20mg Take 1 Julissa (PEPCID) 20 5-15 tablet (20 Se ybold MG oral 00:00: mg total) - tablet 00 by mouth 2 Externa times l daily Fluvastatin 2023-0 Yes [id number] 20mg Take 1 Julissa Sodium 20 5-15 capsule Seybold MG oral 00:00: (20 mg - Capsule 00 total) by Externa mouth l nightly Famotidine 3-0 Yes [id number] 20mg Take 1 Julissa (PEPCID) 20 5-15 tablet (20 Se ybold MG oral 00:00: mg total) - tablet 00 by mouth 2 Externa times l daily Fluvastatin 2023-0 Yes [id number] 20mg Take 1 Julissa Sodium 20 5-15 capsule Seybold MG oral 00:00: (20 mg - Capsule 00 total) by Externa mouth l nightly Famotidine 2022-0 Yes [id number] 20mg Take 1 Julissa (PEPCID) 20 5-15 tablet (20 Se ybold MG oral 00:00: mg total) - tablet 00 by mouth 2 Externa times l daily Fluvastatin 3-0 Yes [id number] 20mg Take 1 Julissa Sodium 20 5-15 capsule Seybold MG oral 00:00: (20 mg - Capsule 00 total) by Externa mouth l nightly Famotidine 3-0 Yes [id number] 20mg Take 1 Julissa (PEPCID) 20 5-15 tablet (20 Se ybold MG oral 00:00: mg total) - tablet 00 by mouth 2 Externa times l daily Fluvastatin 3-0 Yes [id number] 20mg Take 1 Julissa Sodium 20 5-15 capsule Seybold MG oral 00:00: (20 mg - Capsule 00 total) by Externa mouth l nightly Famotidine 3-0 Yes [id number] 20mg Take 1 Julissa (PEPCID) 20 5-15 tablet (20 Se ybold MG oral 00:00: mg total) - tablet 00 by mouth 2 Externa times l daily Fluvastatin 2023-0 Yes [id number] 20mg Take 1 Julissa Sodium 20 5-15 capsule Seybold MG oral 00:00: (20 mg - Capsule 00 total) by Externa mouth l nightly Famotidine 2023-0 Yes [id number] 20mg Take 1 Julissa (PEPCID) 20 5-15 tablet (20 Se ybold MG oral 00:00: mg total) - tablet 00 by mouth 2 Externa times l daily Fluvastatin 2023-0 Yes [id number] 20mg Take 1 Julissa Sodium 20 5-15 capsule Seybold MG oral 00:00: (20 mg - Capsule 00 total) by Externa mouth l nightly Fluvastatin 2022- No [id number] 20mg Take 1 Julissa Sodium 20 5-15 11-15 capsule Seybol d MG oral 00:00: 00:00 (20 mg - Capsule 00 :00 total) by Externa mouth l nightly losartan 2022- No 25mg QD Take [address] [facility] (COZAAR) 25 -08 02-12 tablet (25 L ukes MG tablet 20:09: 00:00 mg total) Me dical 03 :00 by mouth Center in the morning. meloxicam 2022- No 7.5mg Take [address] [facility] (MOBIC) 7.5 02-08-12 tablet [facility] tablet 20:09: 00:00 (7.5 mg Medi jeanette 03 :00 total) by Center mouth as needed for Pain. prochlorper 2022- No 10mg Take [address] [facility] azine 02-08-12 tablet (10 [facility] (COMPAZINE) 20:09: 00:00 mg total) Medical 10 MG 03 :00 by mouth Center tablet every 6 (six) hours as needed. nebivoloL 2022- No 5mg QD [facility] (BYSTOLIC[facility] 02-08-12 tablet (5 Glenna es 5 MG tablet 20:09: 00:00 mg total) Medical 03 :00 by mouth Center in the morning. orphenadrin 2022- No 100mg Q.5D Take [address] [facility] [address] [facility] (NORFLEX) 02-08-12 [facility] 100 mg 20:09: 00:00 (100 mg Medical tablet 03 :00 total) by Center mouth in the morning and 1 tablet (100 mg total) before bedtime. cyanocobala 2022- No 5000ug [facility] min-cobamam 02-08-12 5,000 mcg Maxi kes norberto (B-12 20:09: 00:00 under the Me dical Plus) 03 :00 tongue. Center 5,000-100 mcg Subl furosemide 2022- No 40mg Q.5D Take [address] [facility] (LASIX) 40 02-08-12 tablet (40 Maxi kes MG tablet 20:09: 00:00 mg total) Me dical 03 :00 by mouth Center in the morning and 1 tablet (40 mg total) before bedtime. levalbutero 2022- No 1.25mg Q4H Inhale [address] [facility] (XOPENEX) 5-08 02-12 mLs (1.25 Maxi kes 1.25 mg/3 20:09: 00:00 mg total) Me dical mL 03 :00 by mouth Center nebulizer via solution inhaler every 4 (four) hours if needed. losartan 2022-2022- No 25mg QD Take [address] [facility] (COZAAR) 25 02-08-12 tablet (25 L ukes MG tablet 20:09: 00:00 mg total) Me dical 03 :00 by mouth Center in the morning. meloxicam 2022-2022- No 7.5mg Take [address] [facility] (MOBIC) 7.5 02-08-12 tablet [facility] tablet 20:09: 00:00 (7.5 mg Medi jeanette 03 :00 total) by Center mouth as needed for Pain. prochlorper 2022-2022- No 10mg Take [address] [facility] azine 02-08-12 tablet (10 [facility] (COMPAZINE) 20:09: 00:00 mg total) Medical 10 MG 03 :00 by mouth Center tablet every 6 (six) hours as needed. nebivoloL 2022-2022- No 5mg QD Take [facility] (BYSTOLIC[facility] 02-08-12 tablet (5 Glenna es 5 MG tablet 20:09: 00:00 mg total) Medical 03 :00 by mouth Center in the morning. orphenadrin 2022-0 2022- No 100mg Q.5D Take [address] [facility] [address] [facility] (NORFLEX) 02-08-12 [facility] 100 mg 20:09: 00:00 (100 mg Medical tablet 03 :00 total) by Center mouth in the morning and 1 tablet (100 mg total) before bedtime. cyanocobala 2022-2022- No 5000ug [facility] min-cobamam 02-08-12 5,000 mcg Maxi kes norberto (B-12 20:09: 00:00 under the Me dical Plus) 03 :00 tongue. Center 5,000-100 mcg Subl furosemide 2022-2022- No 40mg Q.5D Take [address] [facility] (LASIX) 40 5-13 05-12 tablet (40 Maxi kes MG tablet 20:09: 00:00 mg total) Me dical 03 :00 by mouth Center in the morning and 1 tablet (40 mg total) before bedtime. levalbutero 2022-2022- No 1.25mg Q4H Inhale [address] [facility] (XOPENEX) 5-13 05-12 mLs (1.25 Maxi kes 1.25 mg/3 20:09: 00:00 mg total) Me dical mL 03 :00 by mouth Center nebulizer via solution inhaler every 4 (four) hours if needed. losartan 2022-0 2022- No 25mg QD Take [address] [facility] (COZAAR) 25 5-13 05-12 tablet (25 L ukes MG tablet 20:09: 00:00 mg total) Me dical 03 :00 by mouth Center in the morning. meloxicam 2022-2022- No 7.5mg Take [address] [facility] (MOBIC) 7.5 5-13 05-12 tablet [facility] tablet 20:09: 00:00 (7.5 mg Medi jeanette 03 :00 total) by Center mouth as needed for Pain. prochlorper 2022-0 2022- No 10mg Take [address] [facility] azine -13 05-12 tablet (10 [facility] (COMPAZINE) 20:09: 00:00 mg total) Medical 10 MG 03 :00 by mouth Center tablet every 6 (six) hours as needed. nebivoloL 2022-0 2022- No 5mg QD Take [facility] (BYSTOLIC[facility] 5-13 05-12 tablet (5 Glenna es 5 MG tablet 20:09: 00:00 mg total) Medical 03 :00 by mouth Center in the morning. orphenadrin 2022-0 2022- No 100mg Q.5D Take [address] [facility] [address] [facility] (NORFLEX) 5-13 05-12 [facility] 100 mg 20:09: 00:00 (100 mg Medical tablet 03 :00 total) by Center mouth in the morning and 1 tablet (100 mg total) before bedtime. cyanocobala 2022- No 5000ug [facility] min-cobamam 02-08-12 5,000 mcg Maxi kes norberto (B-12 20:09: 00:00 under the Me dical Plus) 03 :00 tongue. Center 5,000-100 mcg Subl furosemide 2022-2022- No 40mg Q.5D Take [address] [facility] (LASIX) 40 02-08 tablet (40 Maxi kes MG tablet 20:09: 00:00 mg total) Me dical 03 :00 by mouth Center in the morning and 1 tablet (40 mg total) before bedtime. levalbutero 2022-2022- No 1.25mg Q4H Inhale [address] [facility] (XOPENEX) 02-08- mLs (1.25 Maxi kes 1.25 mg/3 20:09: 00:00 mg total) Me dical mL 03 :00 by mouth Center nebulizer via solution inhaler every 4 (four) hours if needed. lamoTRIgine 2022-2022- No 50mg QD Take [address] [facility] (LaMICtal) 02-08-06 tablets [facility] 25 MG 20:09: 00:00 (50 mg Medical tablet 03 :00 total) by Center mouth in the morning. multivitami 2022-2022- No 1{tbl} QD Take [address] n per 02-08 tablet by [facility] tablet 20:09: 00:00 mouth in Medica l 03 :00 the Center morning. lamoTRIgine 2022-0 2022- No 50mg QD Take [address] [facility] (LaMICtal) 02-08-06 tablets [facility] 25 MG 20:09: 00:00 (50 mg Medical tablet 03 :00 total) by Center mouth in the morning. multivitami 2022-0 2022- No 1{tbl} QD Take [address] n per 02-08-06 tablet by [facility] tablet 20:09: 00:00 mouth in Medica l 03 :00 the Center morning. lamoTRIgine 2022-0 2022- No 50mg QD Take [address] [facility] (LaMICtal) 02-08 05-06 tablets [facility] 25 MG 20:09: 00:00 (50 mg Medical tablet 03 :00 total) by Center mouth in the morning. multivitami 2022-2022- No 1{tbl} QD Take [address] n per 02-08 tablet by [facility] tablet 20:09: 00:00 mouth in Medica l 03 :00 the Center morning. Torsemide 2022-0 3- No 10mg Take 1 Kelse y 10 MG oral 02-08 tablet (10 Se ybold Tablet 00:00: 04:59 mg total) - 00 :00 by mouth 2 Externa times l daily torsemide 2022-0 2022- No 10mg [facility] (DEMADEX[facility] 02-08 tablet (10 Glenna es 10 MG 00:00: 00:00 mg total) Medica l tablet 00 :00 by mouth Center in the morning and 1 tablet (10 mg total) in the evening. Do all this for 60 days. torsemide 2022-0 2022- No 10mg Take [facility] (DEMADEX) 02-08 tablet (10 Glenna es 10 MG 00:00: 00:00 mg total) Medica l tablet 00 :00 by mouth Center in the morning and 1 tablet (10 mg total) in the evening. Do all this for 60 days. torsemide 2022-0 2022- No 10mg Take [facility] (DEMADEX) 02-08 tablet (10 Glenna es 10 MG 00:00: 00:00 mg total) Medica l tablet 00 :00 by mouth Center in the morning and 1 tablet (10 mg total) in the evening. Do all this for 60 days. pantoprazol 3-0 3- No 40mg Take [address] [facility] - 05-12 tablet (40 [facility] (PROTONIX) 18:06: 00:00 mg total) M edical 40 MG 09 :00 by mouth. Center tablet furosemide 2022-0 3- No 40mg Take [address] [facility] (LASIX) 40 - 05-12 tablet (40 Maxi kes MG tablet 18:06: 00:00 mg total) Me dical 09 :00 by mouth. Center pantoprazol 2022-0 3- No 40mg Take [address] [facility] e 5-12 05-12 tablet (40 [facility] (PROTONIX) 18:06: 00:00 mg total) M edical 40 MG 09 :00 by mouth. Center tablet furosemide 2022-0 2022- No 40mg Take [address] [facility] (LASIX) 40 5-12 05-12 tablet (40 Maxi kes MG tablet 18:06: 00:00 mg total) Me dical 09 :00 by mouth. Center pantoprazol 2022-0 2022- No 40mg Take [address] [facility] e 5-12 05-12 tablet (40 [facility] (PROTONIX) 18:06: 00:00 mg total) M edical 40 MG 09 :00 by mouth. Center tablet furosemide 2022-0 2022- No 40mg Take [address] [facility] (LASIX) 40 5-12 05-12 tablet (40 Maxi kes MG tablet 18:06: 00:00 mg total) Me dical 09 :00 by mouth. Center ascorbic 2022-0 2022- No 1000mg Take [address] [facility] acid, 5-12 05-12 tablet [facility] vitamin C, 17:48: 00:00 (1,000 mg M edical (VITAMIN C) 27 :00 total) by Reza ter 1000 MG mouth. tablet ascorbic 2022-0 2022- No 1000mg Take [address] [facility] acid, 5- 05-12 tablet [facility] vitamin C, 17:48: 00:00 (1,000 mg M edical (VITAMIN C) 27 :00 total) by Reza ter 1000 MG mouth. tablet ascorbic 2022-0 2022- No 1000mg Take [address] [facility] acid, 5-12 05-12 tablet [facility] vitamin C, 17:48: 00:00 (1,000 mg M edical (VITAMIN C) 27 :00 total) by Reza ter 1000 MG mouth. tablet Sacubitril- 2022-0 Yes .5{tbl} Take 0.5 Julissa Valsartan 5-12 tablets by Nate shaikh (Entresto) 00:00: mouth 2 - 24-26 MG 00 times Externa oral Tablet daily l sacubitriL- 3-0 3- No Take half [facility] valsartan 5-12 08-08 of a [facility] (Entresto) 00:00: 00:00 tablet po M edical 24-26 mg 00 :00 bid. Center tablet sacubitriL- 3-0 2023- No Take half [facility] valsartan 02-07-08 of a [facility] (Entresto) 00:00: 00:00 tablet po M edical 24-26 mg 00 :00 bid. Center tablet sacubitriL- 2022- No Take half [facility] valsartan 02-07-08 of a [facility] (Entresto) 00:00: 00:00 tablet po M edical 24-26 mg 00 :00 bid. Center tablet metoprolol 2022- No 12.5mg Q.5D Take 0.[address] [facility] succinate 02-07-11 tablets [facility] (TOPROL-XL) 00:00: 23:59 (12.5 mg M edical 25 MG 24 hr 00 :00 total) by Reza [facility] tablet mouth in the morning and 0.5 tablets (12.5 mg total) before bedtime. Do all this for 60 days. metoprolol 2022- No 12.5mg Q.5D Take 0.[address] [facility] succinate 02-07-11 [facility] (TOPROL-XL) 00:00: 23:59 (12.5 mg M edical 25 MG 24 hr 00 :00 total) by [facility] tablet mouth in the morning and 0.5 tablets (12.5 mg total) before bedtime. Do all this for 60 days. metoprolol 2022- No 12.5mg Q.5D Take 0.[address] [facility] succinate 02-07-11 [facility] (TOPROL-XL) 00:00: 23:59 (12.5 mg M edical 25 MG 24 hr 00 :00 total) by [facility] ter tablet mouth in the morning and 0.5 tablets (12.5 mg total) before bedtime. Do all this for 60 days. Losartan 2022- No 25mg Take 1 [facility] Potassium 02-07- tablet (25 Sey bold 25 MG oral 00:00: 00:00 mg total) - Tablet 00 :00 by mouth Externa daily l Sacubitril- 2022- No .5{tbl} Take 0.5 [facility] Valsartan 02-07-08 tablets by [facility] (Entresto) 00:00: 00:00 mouth 2 - 24-26 MG 00 :00 times Externa oral Tablet daily l metFORMIN 2022- No 500mg Take [address] [facility] (GLUCOPHAGE 5-06 05-06 tablet [facility] -XR) 500 MG 14:: :00 (500 mg Me dical 24 hr 29 :00 total) by Center tablet mouth. metFORMIN 2022- No 500mg Take [address] [facility] (GLUCOPHAGE 5-06 05-06 [facility] -[facility]) 500 MG 14:: 00:00 (500 mg Me dical 24 hr 29 :00 total) by Center tablet mouth. metFORMIN 2022- No 500mg Take [address] [facility] (GLUCOPHAGE 5-06 05-06 tablet [facility] -XR) 500 MG 14:: :00 (500 mg Me dical 24 hr 29 :00 total) by Center tablet mouth. pregabalin 2022- No 100mg Take [address] [facility] (LYRICA) 5- 05-06 capsule [facility] 100 MG 14:: 00:00 (100 mg Medical capsule 05 :00 total) by Center mouth. ARIPiprazol 2022- No 10mg Take [address] [facility] (ABILIFY) 02-01-06 tablet (10 [facility] 10 MG 14:: 00:00 mg total) Medica l disintegrat 05 :[address] tablet clomiPHENE 2022- No 25mg Take 0.[address] [facility] [address] [facility] (CLOMID) 50 02-01 05-06 tablets [facility] mg tablet 14:: 00:00 (25 mg Medic al 05 :00 total) by Center mouth. levalbutero 2022- No 1.25mg Inhale [address] [facility] (XOPENEX) 5- 05-06 mLs (1.25 Maxi kes 1.25 mg/3 14:26: 00:00 mg total) Me dical mL 05 :00 by mouth Center nebulizer via solution inhaler. pregabalin 2022- No 100mg Take [address] [facility] (LYRICA) 5-06 05-06 capsule [facility] 100 MG 14:26: 00:00 (100 mg Medical capsule 05 :00 total) by Center mouth. ARIPiprazol 2022- No 10mg Take [address] [facility] (ABILIFY) 5-06 05-06 tablet (10 [facility] 10 MG 14:26: 00:00 mg total) Medica l disintegrat 05 :[address] tablet clomiPHENE 2022- No 25mg Take 0.[address] [facility] [address] [facility] (CLOMID) 50 5-06 05-06 tablets [facility] mg tablet 14:: 00:00 (25 mg Medic al 05 :00 total) by Center mouth. levalbutero 2022- No 1.25mg Inhale [address] [facility] (XOPENEX) 5-06 05-06 mLs (1.25 Maxi kes 1.25 mg/3 14:: 00:00 mg total) Me dical mL 05 :00 by mouth Center nebulizer via solution inhaler. pregabalin 2022- No 100mg Take [address] [facility] (LYRICA) 5- 05-06 capsule [facility] 100 MG 14:: 00:00 (100 mg Medical capsule 05 :00 total) by Center mouth. ARIPiprazol 2022- No 10mg Take [address] [facility] (ABILIFY) 5- 05-06 tablet (10 [facility] 10 MG 14:26: 00:00 mg total) Medica l disintegrat 05 :[address] ing tablet clomiPHENE 2022- No 25mg Take 0.[address] [facility] [address] [facility] (CLOMID) 50 5- 05-06 tablets [facility] mg tablet 14:: 00:00 (25 mg Medic al 05 :00 total) by Center mouth. levalbutero 2022- No 1.25mg Inhale [address] [facility] (XOPENEX) 5-06 05-06 mLs (1.25 Maxi kes 1.25 mg/3 14:26: 00:00 mg total) Me dical mL 05 :00 by mouth Center nebulizer via solution inhaler. carvediloL 2022- No 25mg Take [address] [facility] (COREG) 25 5-06 05-06 tablet (25 Maxi kes MG tablet 14:25: 00:00 mg total) Me dical 44 :00 by mouth. Center carvediloL 2022-2022- No 25mg Take [address] [facility] (COREG) 25 5-06 05-06 tablet (25 Maxi kes MG tablet 14:25: 00:00 mg total) Me dical 44 :00 by mouth. [facility] carvediloL 2022- No 25mg Take [address] [facility] (COREG) 25 5-06 05-06 tablet (25 Maxi kes MG tablet 14:25: 00:00 mg total) Me dical 44 :00 by mouth. [facility] ranolazine 2022-0 2022- No 1000mg Take [address] [facility] [address] [facility] (RANEXA) 5- 05-06 tablets [facility] 500 MG 12 14:24: 00:00 (1,000 mg Me dical hr tablet 49 :00 total) by Cente r mouth. ranolazine 2022-0 2022- No 1000mg Take [address] [facility] [address] [facility] (RANEXA) 5- 05-06 [facility] 500 MG 12 14:24: 00:00 (1,000 mg Me dical hr tablet 49 :00 total) by Cente r mouth. ranolazine 2022- No 1000mg Take [address] [facility] [address] [facility] (RANEXA) 5- 05-06 [facility] 500 MG 12 14:24: 00:00 (1,000 mg Me dical hr tablet 49 :00 total) by Cente r mouth. sertraline 2022- No 100mg Take [address] [facility] [address] [facility] (ZOLOFT) 5- 05-06 mg by [facility] 100 MG 14:21: 00:00 mouth. Medical tablet 07 :00 [facility] dilTIAZem 2022-0 2022- No 240mg Take [address] [facility] (CARDIZEM) 5-06 05-06 tablets [facility] 60 MG 14:21: 00:00 (240 mg Medical tablet 07 :00 total) by Center mouth. sertraline 2022-0 2022- No 100mg Take [address] (ZOLOFT) 5-06 05-06 mg by [facility] 100 MG 14:21: 00:00 mouth. Medical tablet 07 :00 [facility] dilTIAZem 2022-0 3- No 240mg Take [address] [facility] (CARDIZEM) 5-06 05-06 tablets [facility] 60 MG 14:21: 00:00 (240 mg Medical tablet 07 :00 total) by Center mouth. sertraline 3-0 2022- No 100mg Take [address] (ZOLOFT) 5-06 05-06 mg by [facility] 100 MG 14:21: 00:00 mouth. Medical tablet 07 :00 Center dilTIAZem 3-0 3- No 240mg Take [address] [facility] (CARDIZEM) 5-06 05-06 tablets [facility] 60 MG 14:21: 00:00 (240 mg Medical tablet 07 :00 total) by Center mouth. isosorbide 3-0 Yes 20mg Take 1 [facility] dinitrate 5-01 tablet (20 [facility] (ISORDIL) 00:00: mg total) Med ical 20 MG 00 by mouth 2 Center tablet (two) times daily as needed for up to 10 doses. isosorbide 3-0 3- No 20mg Take [address] [facility] dinitrate 5-01 05-06 tablet (20 [facility] (ISORDIL) 00:00: 00:00 mg total) Me dical 20 MG 00 :00 by mouth 2 Center tablet (two) times daily as needed for up to 10 doses. isosorbide 3-0 3- No 20mg Take [address] [facility] dinitrate 5-01 05-06 tablet (20 [facility] (ISORDIL) 00:00: 00:00 mg total) Me dical 20 MG 00 :00 by mouth 2 Center tablet (two) times daily as needed for up to 10 doses. isosorbide 3-0 3- No 20mg Take [address] [facility] dinitrate 5-01 05-06 tablet (20 [facility] (ISORDIL) 00:00: 00:00 mg total) Me dical 20 MG 00 :00 by mouth 2 Center tablet (two) times daily as needed for up to 10 doses. sertraline 3-0 Yes 100mg Take [address] [facility] [address] [facility] (ZOLOFT) 4-27 mg by [facility] 100 MG 19:24: mouth. Medical tablet 38 Center ranolazine 3-0 Yes 1000mg Take 1,[address] [facility] (RANEXA) 4-27 mg by [facility] 500 MG 12 19:24: mouth. Medica l hr tablet 38 Center pregabalin 3-0 Yes 100mg Take [address] [facility] [address] [facility] (LYRICA) 4-27 mg by [facility] 100 MG 19:24: mouth. Medical capsule Center pantoprazol Yes 40mg Take [address] [facility] 4-27 by mouth. [facility] (PROTONIX) 19:24: Medical 40 MG 38 Center tablet multivitami Yes 1{capsu Take [address] n per -27 le} capsule by [facility] tablet 19:24: mouth. [address] metFORMIN Yes 1{tbl} Take [address] [facility] (GLUCOPHAGE -27 tablet by [facility] es -XR) 500 MG 19:24: mouth. [facility] jeanette 24 hr 38 Center tablet ARIPiprazol Yes 10mg Take [address] [facility] (ABILIFY) 4-27 by mouth. Glenna es 10 MG 19:24: [facility] disintegrat [address] [place] [address] ing tablet ascorbic Yes 1000mg Take 1,[address] acid, 4-27 mg by [facility] vitamin C, 19:24: mouth. Medic al (VITAMIN C) Center 1000 MG tablet aspirin 81 Yes 81mg Take [address] MG EC -27 by mouth. [facility] tablet 19:24: [address] carvediloL Yes 25mg Take [address] (COREG) 25 4-27 by mouth. [facility] MG tablet 19:24: [address] cholecalcif Yes 5000U Take 5,[address] [facility] aminah, 4-27 Units by [facility] vitamin D3, 19:24: mouth. [facility] jeanette (VITAMIN 38 Center D3) 125 mcg (5,000 unit) capsule clomiPHENE Yes 25mg Take [address] (CLOMID) 50 4-27 by mouth. [facility] es mg tablet 19:24: [address] cyanocobala Yes 5000ug [address] [facility] min, 4-27 5,000 mcg [facility] vitamin 19:24: under the Medic al B-12, 5,000 38 tongue. Cente r mcg Subl cycloSPORIN Yes 1[drp] [address] E 4-27 [facility] (RESTASIS) 19:24: Medical 0.05 % Center ophthalmic emulsion dilTIAZem Yes 240mg Take [address] [facility] (CARDIZEM) 4-27 mg by [facility] 60 MG 19:24: mouth. Medical tablet 38 Center fluticasone Yes 2{puff} Inhale [address] [facility] propion-sylvia 4-27 puffs by [facility] meteroL 19:24: mouth via Medic al (ADVAIR) 38 inhaler. Center 250-50 mcg/dose diskus inhaler furosemide Yes 40mg Take [address] (LASIX) 40 4-27 by mouth. [facility] MG tablet 19:24: Medical 38 Center levalbutero Yes 1{ampul Inhale [address] [facility] (XOPENEX) 4-27 e} ampule by [facility] es 1.25 mg/3 19:24: mouth via Med ical mL 38 inhaler. Center nebulizer solution levalbutero Yes 1{puff} Inhale 1-[address] [facility] (XOPENEX 4-27 puffs by [facility] HFA) 45 19:24: mouth via Medic al mcg/actuati 38 inhaler. Cent er on inhaler sertraline Yes 100mg Take [address] [facility] (ZOLOFT) 4-27 mg by [facility] 100 MG 19:24: mouth. Medical tablet 38 Center ranolazine Yes 1000mg Take 1,[address] [facility] (RANEXA) 4-27 mg by [facility] 500 MG 12 19:24: mouth. Medica l hr tablet 38 Center pregabalin Yes 100mg Take [address] [facility] (LYRICA) 4-27 mg by [facility] 100 MG 19:24: mouth. Medical capsule 38 Center pantoprazol Yes 40mg Take [address] [facility] 4-27 by mouth. [facility] (PROTONIX) 19:24: Medical 40 MG 38 Center tablet multivitami Yes 1{capsu Take [address] n per 4-27 le} capsule by [facility] tablet 19:24: mouth. Medical 38 Center metFORMIN Yes 1{tbl} Take [address] [facility] (GLUCOPHAGE 4-27 tablet by [facility] es -XR) 500 MG 19:24: mouth. Medi jeanette 24 hr 38 Center tablet ARIPiprazol Yes 10mg Take [address] [facility] (ABILIFY) 4-27 by mouth. Gl[facility] es 10 MG 19:24: Medical disintegrat Center ing tablet ascorbic Yes 1000mg Take 1,[address] acid, 4-27 mg by [facility] vitamin C, 19:24: mouth. Medic al (VITAMIN C) Center 1000 MG tablet aspirin 81 Yes 81mg Take [address] MG EC 4-27 by mouth. [facility] tablet 19:24: [address] carvediloL Yes 25mg Take [address] (COREG) 25 4-27 by mouth. [facility] MG tablet 19:24: [address] cholecalcif Yes 5000U Take 5,[address] [facility] aminah, 4-27 Units by LuCream.HR vitamin D3, 19:24: mouth. [facility] jeanette (VITAMIN [address] [place] [address] D3) 125 mcg (5,000 unit) capsule clomiPHENE Yes 25mg Take [address] (CLOMID) 50 4-27 by mouth. Glenna es mg tablet 19:24: [address] cyanocobala Yes 5000[address] [facility] min, 4-27 5,000 mcg LuCream.HR vitamin 19:24: under the Medic al B-12, 5,000 38 tongue. Cente r mcg Subl cycloSPORIN Yes 1[drp] [address] E -27 [facility] (RESTASIS) 19:24: Medical 0.05 % Center ophthalmic emulsion dilTIAZem Yes 240mg Take [address] [facility] (CARDIZEM) 4-27 mg by [facility] 60 MG 19:24: mouth. Medical tablet Center fluticasone Yes 2{puff} Inhale [address] [facility] propion-sylvia 4-27 puffs by Luke [facility] meteroL 19:24: mouth via Medic al (ADVAIR) 38 inhaler. Kermit 250-50 mcg/dose diskus inhaler furosemide Yes 40mg Take [address] (LASIX) 40 4-27 by mouth. [facility] MG tablet 19:24: [address] levalbutero Yes 1{ampul Inhale [address] [facility] (XOPENEX) 4-27 e} ampule by [facility] es 1.25 mg/3 19:24: mouth via Med ical mL 38 inhaler. Center nebulizer solution levalbutero Yes 1{puff} Inhale 1-[address] [facility] (XOPENEX 4-27 puffs by Margarita HFA) 45 19:24: mouth via Medic al mcg/actuati 38 inhaler. Cent er on inhaler dilTIAZem 2023- No 30mg [facility] 1 [facility] (CARD[facility]EM) 01-23-26 tablet (30 Maxi kes 30 MG 00:00: 23:59 mg total) Medica l tablet 00 :00 by mouth 4 Center (four) times daily as needed (Chest pain). dilTIAZem 2022-2023- No 30mg Take 1 [facility] (CARDIZEM) 01-23-26 tablet (30 Maxi kes 30 MG 00:00: 23:59 mg total) Medica l tablet 00 :00 by mouth 4 Center (four) times daily as needed (Chest pain). dilTIAZem 0 2022- No 30mg Take [facility] (CARDIZEM) 01-23 05-06 tablet (30 Maxi kes 30 MG 00:00: 00:00 mg total) Medica l tablet 00 :00 by mouth 4 Center (four) times daily as needed (Chest pain). dilTIAZem 2022-0 2022- No 30mg Take [facility] (CARDIZEM) 01-23 05-06 tablet (30 Maxi kes 30 MG 00:00: 00:00 mg total) Medica l tablet 00 :00 by mouth 4 Center (four) times daily as needed (Chest pain). dilTIAZem 0 2022- No 30mg Take [facility] (CARDIZEM) 01-23 05-06 tablet (30 Maxi kes 30 MG 00:00: 00:00 mg total) Medica l tablet 00 :00 by mouth 4 Center (four) times daily as needed (Chest pain). Nitroglycer Yes .4mg Place 1 Darlene sey in 0.4 MG -26 tablet [facility] sublingual 00:00: (0.4 mg - SL Tab 00 total) Externa under the l tongue as needed for chest pain 1 to 2 tablets under the tongue at onset of attack. Repeat as needed up to 3 times. If not relieved CALL 911. Nitroglycer 2023-[address] 1 Darlene sey in 0.4 MG 4-26 tablet [facility] sublingual 00:00: (0.4 mg - SL Tab 00 total) Externa under the l tongue as needed for chest pain 1 to 2 tablets under the tongue at onset of attack. Repeat as needed up to 3 times. If not relieved CALL 911. Nitroglycer 2023-[address] 1 Darlene sey in 0.4 MG 4-26 tablet [facility] sublingual 00:00: (0.4 mg - SL Tab 00 total) Externa under the l tongue as needed for chest pain 1 to 2 tablets under the tongue at onset of attack. Repeat as needed up to 3 times. If not relieved CALL 911. Nitroglycer 2023-[address] 1 Darlene sey in 0.4 MG 4-26 tablet [facility] sublingual 00:00: (0.4 mg - SL Tab 00 total) Externa under the l tongue as needed for chest pain 1 to 2 tablets under the tongue at onset of attack. Repeat as needed up to 3 times. If not relieved CALL 911. Nitroglycer 2023-[address] 1 Darlene sey in 0.4 MG 4-26 tablet [facility] sublingual 00:00: (0.4 mg - SL Tab 00 total) Externa under the l tongue as needed for chest pain 1 to 2 tablets under the tongue at onset of attack. Repeat as needed up to 3 times. If not relieved CALL 911. Nitroglycer 2023-[address] 1 Darlene sey in 0.4 MG 4-26 tablet [facility] sublingual 00:00: (0.4 mg - SL Tab 00 total) Externa under the l tongue as needed for chest pain 1 to 2 tablets under the tongue at onset of attack. Repeat as needed up to 3 times. If not relieved CALL 911. Nitroglycer 2023-[address] 1 Darlene sey in 0.4 MG 4-26 tablet [facility] sublingual 00:00: (0.4 mg - SL Tab 00 total) Externa under the l tongue as needed for chest pain 1 to 2 tablets under the tongue at onset of attack. Repeat as needed up to 3 times. If not relieved CALL 911. Nitroglycer 2023-[address] 1 Darlene sey in 0.4 MG 4-26 tablet [facility] sublingual 00:00: (0.4 mg - SL Tab 00 total) Externa under the l tongue as needed for chest pain 1 to 2 tablets under the tongue at onset of attack. Repeat as needed up to 3 times. If not relieved CALL 911. Nitroglycer 2023-[address] 1 Darlene sey in 0.4 MG 4-26 tablet [facility] sublingual 00:00: (0.4 mg - SL Tab 00 total) Externa under the l tongue as needed for chest pain 1 to 2 tablets under the tongue at onset of attack. Repeat as needed up to 3 times. If not relieved CALL 911. Nitroglycer 2023-[address] 1 Darlene sey in 0.4 MG 4-26 tablet [facility] sublingual 00:00: (0.4 mg - SL Tab 00 total) Externa under the l tongue as needed for chest pain 1 to 2 tablets under the tongue at onset of attack. Repeat as needed up to 3 times. If not relieved CALL 911. Nitroglycer 2023-[address] 1 Darlene sey in 0.4 MG 4-26 tablet [facility] sublingual 00:00: (0.4 mg - SL Tab 00 total) Externa under the l tongue as needed for chest pain 1 to 2 tablets under the tongue at onset of attack. Repeat as needed up to 3 times. If not relieved CALL 911. Nitroglycer 2023-[address] 1 Darlene sey in 0.4 MG 4-26 tablet [facility] sublingual 00:00: (0.4 mg - SL Tab 00 total) Externa under the l tongue as needed for chest pain 1 to 2 tablets under the tongue at onset of attack. Repeat as needed up to 3 times. If not relieved CALL 911. Nitroglycer 2023-[address] 1 Darlene sey in 0.4 MG 4-26 tablet [facility] sublingual 00:00: (0.4 mg - SL Tab 00 total) Externa under the l tongue as needed for chest pain 1 to 2 tablets under the tongue at onset of attack. Repeat as needed up to 3 times. If not relieved CALL 911. Nitroglycer 2023-[address] 1 Darlene sey in 0.4 MG 4-26 tablet [facility] sublingual 00:00: (0.4 mg - SL Tab 00 total) Externa under the l tongue as needed for chest pain 1 to 2 tablets under the tongue at onset of attack. Repeat as needed up to 3 times. If not relieved CALL 911. Nitroglycer 2023-[address] 1 Darlene sey in 0.4 MG 4-26 tablet [facility] sublingual 00:00: (0.4 mg - SL Tab 00 total) Externa under the l tongue as needed for chest pain 1 to 2 tablets under the tongue at onset of attack. Repeat as needed up to 3 times. If not relieved CALL 911. Nitroglycer 2023-[address] 1 Darlene sey in 0.4 MG 4-26 tablet [facility] sublingual 00:00: (0.4 mg - SL Tab 00 total) Externa under the l tongue as needed for chest pain 1 to 2 tablets under the tongue at onset of attack. Repeat as needed up to 3 times. If not relieved CALL 911. Nitroglycer 2023-[address] 1 Darlene sey in 0.4 MG 4-26 tablet [facility] sublingual 00:00: (0.4 mg - SL Tab 00 total) Externa under the l tongue as needed for chest pain 1 to 2 tablets under the tongue at onset of attack. Repeat as needed up to 3 times. If not relieved CALL 911. Trulicity Yes [id number] 1.5mg Inject 1.5 Julissa 1.5 4-14 3 mg into [facility] MG/0.5ML 00:00: the skin - subcutaneou 00 once a Naphthalene Operator a s Solution week l Pen-injecto r Naltrexone Yes [id number] 2{capsu Take 2 Julissa HCl, Pain, 4-14 le} capsules Seybo ld 4.5 MG oral 00:00: by mouth - Capsule 00 daily Externa l Trulicity Yes [id number] 1.5mg Inject 1.5 Julissa 1.5 4-14 3 mg into [facility] MG/0.5ML 00:00: the skin - subcutaneou 00 once a Naphthalene Operator a s Solution week l Pen-injecto r Trulicity 2022-0 Yes [id number] 1.5mg Inject 1.5 Julissa 1.5 4-14 3 mg into [facility] MG/0.5ML 00:00: the skin - subcutaneou 00 once a Naphthalene Operator a s Solution week l Pen-injecto r dulaglutide 2022-0 202- No 1.5mg Q7D Inject 0.[address] [facility] (Trulicity) 4-14 08-08 mLs (1.5 [facility] 1.5 mg/0.5 00:00: 00:00 mg total) M edical mL syringe 00 :[address] usly once a week q Friday . dulaglutide 2022-0 2022- No 1.5mg Q7D Inject 0.[address] [facility] (Trulicity) -14 08-08 mLs (1.5 [facility] 1.5 mg/0.5 00:00: 00:00 mg total) M edical mL syringe 00 :[address] usly once a week q Friday . dulaglutide 2022-0 2022- No 1.5mg Q7D Inject 0.[address] [facility] (Trulicity) 4-14 08-08 mLs (1.5 [facility] 1.5 mg/0.5 00:00: 00:00 mg total) M edical mL syringe 00 :[address] usly once a week q Friday . Trulicity 2022-0 2023- No [id number] 1.5mg Inject 1.5 Julissa 1.5 4-14 06-13 3 mg into [facility] MG/0.5ML 00:00: 00:00 the skin - subcutaneou 00 :00 once a Naphthalene Operator a s Solution week l Pen-injecto r Ascorbic 2022-0 Yes 1000mg Take 1 K[facility] Acid 1000 4-06 tablet [facility] MG oral 11:19: (1,000 mg - Tablet 21 total) by Externa mouth 2 l times daily Aspirin 81 2022-0 Yes 81mg Take 1 Kelse y MG oral 4-06 tablet (81 Seybol d Chewable 11:19: mg total) - Tablet 21 by mouth Externa daily l Cholecalcif 2023-0 Yes 5000U Take 5,000 Julissa aminah 125 4-06 units by [facility] MCG (5000 11:19: mouth - UT) oral 21 daily Externa Capsule l Cobalamin Yes 5000ug Place Kelse y Combination 4-06 5,000 mcg Sey bold s (B-12) 11:19: under the - 100-5000 21 tongue Externa MCG daily l sublingual SL Tab Levalbutero Yes 1.25mg Q4H Inhale 3 Julissa l HCl 1.25 4-06 mL (1.25 Seybo ld MG/3ML 11:19: mg total) - inhalation 21 into the Exter na Inhalant lungs l Solution every 4 hours as needed Multiple Yes 1{capsu Take 1 Ava ey Vitamin 4-06 le} capsule by Seybol d (Multi-Eula 11:19: mouth 2 - mins) oral 21 times Externa Tablet daily l Pantoprazol Yes 40mg Take 1 Ava ey e Sodium 40 4-06 tablet (40 Se ybold MG oral 00:00: mg total) - Tablet 00 by mouth 2 Externa Delayed times l Response daily Esomeprazol Yes [id number] 40mg Take 1 Julissa e Magnesium 4-06 capsule Seybo ld (NexIUM) 40 00:00: (40 mg - MG oral 00 total) by Externa Delayed mouth l Release every Capsule morning (before breakfast) esomeprazol 2022- No 40mg QD Take [address] [facility] (NexIUM) 4- 05-12 capsule [facility] 40 MG 00:00: 00:00 (40 mg Medical capsule 00 :00 total) by Center mouth every morning. esomeprazol 2022-0 2022- No 40mg QD Take [address] [facility] (NexIUM) 4-06 05-12 capsule [facility] 40 MG 00:00: 00:00 (40 mg Medical capsule 00 :00 total) by Center mouth every morning. esomeprazol 0 2022- No 40mg QD Take [address] [facility] (NexIUM) 4-06 05-12 capsule [facility] 40 MG 00:00: 00:00 (40 mg Medical capsule 00 :00 total) by Center mouth every morning. Timolol 2023-0 Yes 1[drp] Place 1 Kelse y Maleate 3-24 drop into [facility] (TIMOPTIC) 00:00: both eyes - 0.5 % 00 daily Externa ophthalmic l Solution Timolol 2023-0 Yes 1[drp] Place 1 Kelse y Maleate 3-24 drop into [facility] (TIMOPTIC) 00:00: both eyes - 0.5 % 00 daily Externa ophthalmic l Solution Timolol 2023-0 Yes 1[drp] Place 1 Kelse y Maleate 3-24 drop into [facility] (TIMOPTIC) 00:00: both eyes - 0.5 % 00 daily Externa ophthalmic l Solution Timolol 2023-0 Yes 1[drp] Place 1 Kelse y Maleate 3-24 drop into [facility] (TIMOPTIC) 00:00: both eyes - 0.5 % 00 daily Externa ophthalmic l Solution Timolol 2023-0 Yes 1[drp] Place 1 Kelse y Maleate 3-24 drop into [facility] (TIMOPTIC) 00:00: both eyes - 0.5 % 00 daily Externa ophthalmic l Solution Timolol 2023-0 Yes 1[drp] Place 1 Kelse y Maleate 3-24 drop into [facility] (TIMOPTIC) 00:00: both eyes - 0.5 % 00 daily Externa ophthalmic l Solution Timolol 2023-0 Yes 1[drp] Place 1 Kelse y Maleate 3-24 drop into [facility] (TIMOPTIC) 00:00: both eyes - 0.5 % 00 daily Externa ophthalmic l Solution Timolol 2023-0 Yes 1[drp] Place 1 Kelse y Maleate 3-24 drop into [facility] (TIMOPTIC) 00:00: both eyes - 0.5 % 00 daily Externa ophthalmic l Solution Timolol 2023-0 Yes 1[drp] Place 1 Kelse y Maleate 3-24 drop into [facility] (TIMOPTIC) 00:00: both eyes - 0.5 % 00 daily Externa ophthalmic l Solution Timolol 2023-0 Yes 1[drp] Place 1 Kelse y Maleate 3-24 drop into [facility] (TIMOPTIC) 00:00: both eyes - 0.5 % 00 daily Externa ophthalmic l Solution Timolol 2023-0 Yes 1[drp] Place 1 Kelse y Maleate 3-24 drop into [facility] (TIMOPTIC) 00:00: both eyes - 0.5 % 00 daily Externa ophthalmic l Solution Timolol 2023-0 Yes 1[drp] Place 1 Kelse y Maleate 3-24 drop into [facility] (TIMOPTIC) 00:00: both eyes - 0.5 % 00 daily Externa ophthalmic l Solution Timolol 2023-0 Yes 1[drp] Place 1 Kelse y Maleate 3-24 drop into [facility] (TIMOPTIC) 00:00: both eyes - 0.5 % 00 daily Externa ophthalmic l Solution Timolol 3-0 Yes 1[drp] Place 1 Kelse y Maleate 3-24 drop into [facility] (TIMOPTIC) 00:00: both eyes - 0.5 % 00 daily Externa ophthalmic l Solution Timolol 3-0 Yes 1[drp] Place 1 Kelse y Maleate 3-24 drop into [facility] (TIMOPTIC) 00:00: both eyes - 0.5 % 00 daily Externa ophthalmic l Solution Timolol 3-0 Yes 1[drp] Place 1 Kelse y Maleate 3-24 drop into [facility] (TIMOPTIC) 00:00: both eyes - 0.5 % 00 daily Externa ophthalmic l Solution Timolol 3-0 Yes 1[drp] Place 1 Kelse y Maleate 3-24 drop into [facility] (TIMOPTIC) 00:00: both eyes - 0.5 % 00 daily Externa ophthalmic l Solution Timolol 3-0 2023- No 1[drp] Place 1 Ava ey Maleate 3-24 11-15 drop into Seybol d (TIMOPTIC) 00:00: 00:00 both eyes - 0.5 % 00 :00 daily Externa ophthalmic l Solution timolol 3-0 2023- No 1[drp] QD Place [address] [facility] (TIMOPTIC) 3-24 05-12 drop into [facility] 0.5 % 00:00: 00:00 both eyes Medica l ophthalmic 00 :00 in the Center solution morning. timolol 2023-0 2023- No 1[drp] QD Place [address] [facility] (TIMOPTIC) 3-24 05-12 drop into [facility] 0.5 % 00:00: 00:00 both eyes Medica l ophthalmic 00 :00 in the Center solution morning. timolol 2022- No 1[drp] QD Place [address] [facility] (TIMOPTIC) 12-20 05-12 drop into [facility] es 0.5 % 00:00: 00:00 both eyes Medica l ophthalmic 00 :00 in the Center solution morning. Iron 2022- No [id number] 300mg 300 mg, at [facility] Sucrose 12-10 166.7 [facility] (VENOFER) 16:45: 18:15 mL/hr, - 300 mg in 00 :00 Administer Exte rna sodium over 90 l chloride Minutes, 0.9 % 250 intravenou mL infusion s, ONCE, On 12/10/22 at 1145, For 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
Gi ve 30 minutes prior to treatment.
Acetaminoph 2022- No [id number] 650mg 650 mg, Julissa en 12-10 oral, [facility] (TYLENOL) 16:15: 16:10 ONCE, 1 - tablet 650 00 :00 dose, On Exter na mg Tue l 12/10/22 at 1115 Iron 2022- No [id number] 300mg 300 mg, at [facility] Sucrose 11-26 02- 166.7 [facility] (VENOFER) 17:15: 18:57 mL/hr, - 300 mg in 00 :00 Administer Exte rna sodium over 90 l chloride Minutes, 0.9 % 250 intravenou mL infusion s, ONCE, On 11/26/22 at 1115, For 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
Gi ve 30 minutes prior to treatment.
Acetaminoph 2022- No [id number] 650mg 650 mg, Julissa en 11-26 oral, Seybold (TYLENOL) 16:45: 16:34 ONCE, 1 - tablet 650 00 :00 dose, On Exter na mg Tue l 11/26/22 at 1045 Bupropion 2022-0 Yes [id number] 150mg Take 1 Julissa HCL XL 150 2-17 tablet Seybold MG OR TB24 00:00: (150 mg - 00 total) by Externa mouth l daily Bupropion Yes [id number] 150mg Take 1 Julissa HCL XL 150 2-17 tablet Seybold MG OR TB24 00:00: (150 mg - 00 total) by Externa mouth l daily Bupropion Yes [id number] 150mg Take 1 Julissa HCL XL 150 2-17 tablet Seybold MG OR TB24 00:00: (150 mg - 00 total) by Externa mouth l daily Bupropion Yes [id number] 150mg Take 1 Julissa HCL XL 150 2-17 tablet Seybold MG OR TB24 00:00: (150 mg - 00 total) by Externa mouth l daily Bupropion Yes [id number] 150mg Take 1 Julissa HCL XL 150 2-17 tablet Seybold MG OR TB24 00:00: (150 mg - 00 total) by Externa mouth l daily Bupropion 2022-0 Yes [id number] 150mg Take 1 Julissa HCL XL 150 2-17 tablet Seybold MG OR TB24 00:00: (150 mg - 00 total) by Externa mouth l daily Bupropion 2022-0 Yes [id number] 150mg Take 1 Julissa HCL XL 150 2-17 tablet Seybold MG OR TB24 00:00: (150 mg - 00 total) by Externa mouth l daily Bupropion 2022-0 Yes [id number] 150mg Take 1 Julissa HCL XL 150 2-17 tablet Seybold MG OR TB24 00:00: (150 mg - 00 total) by Externa mouth l daily Bupropion 2022-0 Yes [id number] 150mg Take 1 Julissa HCL XL 150 2-17 tablet Seybold MG OR TB24 00:00: (150 mg - 00 total) by Externa mouth l daily Bupropion 2022-0 Yes [id number] 150mg Take 1 Julissa HCL XL 150 2-17 tablet Seybold MG OR TB24 00:00: (150 mg - 00 total) by Externa mouth l daily Bupropion 2022-0 Yes [id number] 150mg Take 1 Julissa HCL XL 150 2-17 tablet Seybold MG OR TB24 00:00: (150 mg - 00 total) by Externa mouth l daily Bupropion 2022-0 Yes [id number] 150mg Take 1 Julissa HCL XL 150 2-17 tablet Seybold MG OR TB24 00:00: (150 mg - 00 total) by Externa mouth l daily Dulaglutide 2022-0 Yes [id number] .75mg Inject Julissa (Trulicity) 2-17 3 0.75 mg Seybo ld 0.75 00:00: into the - MG/0.5ML 00 skin once Naphthalene Operator a subcutaneou a week l s Solution Pen-injecto r Bupropion 2022-0 Yes [id number] 150mg Take 1 Julissa HCL XL 150 2-17 tablet Seybold MG OR TB24 00:00: (150 mg - 00 total) by Externa mouth l daily Dulaglutide Yes [id number] .75mg Inject Julissa (Trulicity) 2-17 3 0.75 mg Seybo ld 0.75 00:00: into the - MG/0.5ML 00 skin once Naphthalene Operator a subcutaneou a week l s Solution Pen-injecto r Bupropion 0 Yes [id number] 150mg Take 1 Julissa HCL XL 150 2-17 tablet Seybold MG OR TB24 00:00: (150 mg - 00 total) by Externa mouth l daily Dulaglutide Yes [id number] .75mg Inject Julissa (Trulicity) 2-17 3 0.75 mg Seybo ld 0.75 00:00: into the - MG/0.5ML 00 skin once Naphthalene Operator a subcutaneou a week l s Solution Pen-injecto r Bupropion 0 Yes [id number] 150mg Take 1 Julissa HCL XL 150 2-17 tablet Seybold MG OR TB24 00:00: (150 mg - 00 total) by Externa mouth l daily Bupropion 0 Yes [id number] 150mg Take 1 Julissa HCL XL 150 2-17 tablet Seybold MG OR TB24 00:00: (150 mg - 00 total) by Externa mouth l daily Bupropion 0 Yes [id number] 150mg Take 1 Julissa HCL XL 150 2-17 tablet Seybold MG OR TB24 00:00: (150 mg - 00 total) by Externa mouth l daily Bupropion 2022-0 Yes [id number] 150mg Take 1 Julissa HCL XL 150 2-17 tablet Seybold MG OR TB24 00:00: (150 mg - 00 total) by Externa mouth l daily Bupropion 0 Yes [id number] 150mg Take 1 Julissa HCL XL 150 2-17 tablet Seybold MG OR TB24 00:00: (150 mg - 00 total) by Externa mouth l daily Bupropion 0 Yes [id number] 150mg Take 1 Julissa HCL XL 150 2-17 tablet Seybold MG OR TB24 00:00: (150 mg - 00 total) by Externa mouth l daily Bupropion 0 2022- No [id number] 150mg Take 1 Julissa HCL XL 150 11-15 11-15 tablet Seybol d MG OR TB24 00:00: 00:00 (150 mg - 00 :00 total) by Externa mouth l daily Dulaglutide 2022- No [id number] .75mg Inject Julissa (Trulicity) 11-15-14 3 0.75 mg Seyb old 0.75 00:00: 00:00 into the - MG/0.5ML 00 :00 skin once Naphthalene Operator a subcutaneou a week l s Solution Pen-injecto r Iron 2022- No [id number] 300mg 300 mg, at [facility] Sucrose 11-12 166.7 Seybold (VENOFER) 20:15: 22:12 mL/hr, - 300 mg in 00 :00 Administer Exte rna sodium over 90 l chloride Minutes, 0.9 % 250 intravenou mL infusion s, ONCE, On 11/12/22 at 1415, For 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
Gi ve 30 minutes prior to treatment.
Acetaminoph 2022- No [id number] 650mg 650 mg, Julissa en 11-12 oral, Seybold (TYLENOL) 19:45: 19:59 ONCE, 1 - tablet 650 00 :00 dose, On Exter na mg Tue l 11/12/22 at 1345 Timolol 2023-0 Yes 1[drp] Place 1 Kelse y Maleate 1-26 drop into Seybold (TIMOPTIC) 15:24: both eyes - 0.5 % 57 2 times Externa ophthalmic daily l Solution Aspirin 81 2022-0 Yes 81mg Take 81 mg K elsey MG oral 1-26 by mouth Seybold Chewable 15:24: daily - Tablet 57 Externa l Cholecalcif 0 Yes 5000U Take 5,000 Julissa aminah 125 1-26 units by Seybold MCG (5000 15:24: mouth - UT) oral 57 daily Externa Capsule l Cobalamin [address] Kelse y Combination 1- 5,000 mcg Sey bold s (B-12) 15:24: under the - 100-5000 57 tongue Externa MCG daily l sublingual SL Tab Levalbutero Yes 1{ampul Q4H Inhale 1 Julissa l HCl 1.25 1-26 e} ampule Seybold MG/3ML 15:24: into the - inhalation 57 lungs Externa Inhalant every 4 l Solution hours as needed Multiple Yes 1{capsu Take 1 Ava ey Vitamin 1-26 le} capsule by Seybol d (Multi-Eula 15:24: mouth 2 - mins) oral 57 times Externa Tablet daily l Timolol Yes 1[drp] Place 1 Kelse y Maleate 1- drop into Seybold (TIMOPTIC) 15:24: both eyes - 0.5 % 57 2 times Externa ophthalmic daily l Solution Aspirin 81 2022-0 Yes 81mg Take 81 mg K elsey MG oral 1- by mouth Seybold Chewable 15:24: daily - Tablet 57 Externa l Cholecalcif 0 Yes 5000U Take 5,000 Julissa aminah 125 1-26 units by Seybold MCG (5000 15:24: mouth - [place]) oral 57 daily Externa Capsule l Cobalamin 2022-[address] Kelse y Combination 1- 5,000 mcg Sey bold s (B-12) 15:24: under the - 100-5000 57 tongue Externa MCG daily l sublingual SL Tab Levalbutero 2022-0 Yes 1{ampul Q4H Inhale 1 Julissa l HCl 1.25 1-26 e} ampule Seybold MG/3ML 15:24: into the - inhalation 57 lungs Externa Inhalant every 4 l Solution hours as needed Multiple 2022- Yes 1{capsu Take 1 Ava ey Vitamin 1-26 le} capsule by Seybol d (Multi-Eula 15:24: mouth 2 - mins) oral 57 times Externa Tablet daily l Timolol Yes 1[drp] Place 1 Kelse y Maleate 1-26 drop into Seybold (TIMOPTIC) 15:24: both eyes - 0.5 % 57 2 times Externa ophthalmic daily l Solution Aspirin 81 Yes 81mg Take 81 mg K elsey MG oral -26 by mouth Seybold Chewable 15:24: daily - Tablet 57 Externa l Cholecalcif Yes 5000U Take 5,000 Julissa aminah 125 1-26 units by Seybold MCG (5000 15:24: mouth - [place]) oral 57 daily Externa Capsule l Cobalamin Yes 5000ug Place Kelse y Combination 1- 5,000 mcg Sey bold s (B-12) 15:24: under the - 100-5000 57 tongue Externa MCG daily l sublingual SL Tab Levalbutero Yes 1{ampul Q4H Inhale 1 Julissa l HCl 1.25 1-26 e} ampule Seybold MG/3ML 15:24: into the - inhalation 57 lungs Externa Inhalant every 4 l Solution hours as needed Multiple Yes 1{capsu Take 1 Ava ey Vitamin 1-26 le} capsule by Seybol d (Multi-Eula 15:24: mouth 2 - mins) oral 57 times Externa Tablet daily l Timolol Yes 1[drp] Place 1 Kelse y Maleate 1-26 drop into Seybold (TIMOPTIC) 15:24: both eyes - 0.5 % 57 2 times Externa ophthalmic daily l Solution Aspirin 81 2022-0 Yes 81mg Take 81 mg K elsey MG oral 1-26 by mouth Seybold Chewable 15:24: daily - Tablet 57 Externa l Cholecalcif 0 Yes 5000U Take 5,000 Julissa aminah 125 1-26 units by Seybold MCG (5000 15:24: mouth - [place]) oral 57 daily Externa Capsule l Cobalamin Yes 5000ug Place Kelse y Combination 1- 5,000 mcg Sey bold s (B-12) 15:24: under the - 100-5000 57 tongue Externa MCG daily l sublingual SL Tab Levalbutero Yes 1{ampul Q4H Inhale 1 Julissa l HCl 1.25 1-26 e} ampule Seybold MG/3ML 15:24: into the - inhalation 57 lungs Externa Inhalant every 4 l Solution hours as needed Multiple Yes 1{capsu Take 1 Ava ey Vitamin 1-26 le} capsule by Seybol d (Multi-Eula 15:24: mouth 2 - mins) oral 57 times Externa Tablet daily l Timolol Yes 1[drp] Place 1 Kelse y Maleate - drop into Seybold (TIMOPTIC) 15:24: both eyes - 0.5 % 57 2 times Externa ophthalmic daily l Solution Aspirin 81 Yes 81mg Take 81 mg K elsey MG oral -26 by mouth Seybold Chewable 15:24: daily - Tablet 57 Externa l Cholecalcif Yes 5000U Take 5,000 Julissa aminah 125 1-26 units by Seybold MCG (5000 15:24: mouth - [place]) oral 57 daily Externa Capsule l Cobalamin Yes 5000ug Place Kelse y Combination 1-26 5,000 mcg Sey bold s (B-12) 15:24: under the - 100-5000 57 tongue Externa MCG daily l sublingual SL Tab Levalbutero Yes 1{ampul Q4H Inhale 1 Julissa l HCl 1.25 1-26 e} ampule Seybold MG/3ML 15:24: into the - inhalation 57 lungs Externa Inhalant every 4 l Solution hours as needed Multiple Yes 1{capsu Take 1 Ava ey Vitamin 1-26 le} capsule by Seybol d (Multi-Eula 15:24: mouth 2 - mins) oral 57 times Externa Tablet daily l clomiPHENE Yes [id number] 50mg Take 1 Julissa Citrate 50 1-23 tablet (50 Sey bold MG oral 00:00: mg total) - Tablet 00 by mouth Externa daily l clomiPHENE 3-0 Yes [id number] 50mg Take 1 Julissa Citrate 50 1-23 tablet (50 Sey bold MG oral 00:00: mg total) - Tablet 00 by mouth Externa daily l clomiPHENE 3-0 Yes [id number] 50mg Take 1 Julissa Citrate 50 1-23 tablet (50 Sey bold MG oral 00:00: mg total) - Tablet 00 by mouth Externa daily l clomiPHENE 3-0 Yes [id number] 50mg Take 1 Julissa Citrate 50 1-23 tablet (50 Sey bold MG oral 00:00: mg total) - Tablet 00 by mouth Externa daily l clomiPHENE 3-0 Yes [id number] 50mg Take 1 Julissa Citrate 50 1-23 tablet (50 Sey bold MG oral 00:00: mg total) - Tablet 00 by mouth Externa daily l clomiPHENE 3-0 Yes [id number] 50mg Take 1 Julissa Citrate 50 1-23 tablet (50 Sey bold MG oral 00:00: mg total) - Tablet 00 by mouth Externa daily l clomiPHENE 3-0 Yes [id number] 50mg Take 1 Julissa Citrate 50 1-23 tablet (50 Sey bold MG oral 00:00: mg total) - Tablet 00 by mouth Externa daily l Timolol 2022-0 Yes 1[drp] Place 1 Kelse y Maleate 1-20 drop into Seybold (TIMOPTIC) 15:00: both eyes - 0.5 % 13 2 times Externa ophthalmic daily l Solution Ascorbic 2022-0 Yes 1000mg Take 1,000 K elsey Acid 1000 1-20 mg by Seybold MG oral 15:00: mouth 2 - Tablet 13 times Externa daily l Aspirin 81 2022-0 Yes 81mg Take 81 mg K elsey MG oral 1-20 by mouth Seybold Chewable 15:00: daily - Tablet 13 Externa l Cholecalcif 2022-0 Yes 5000U Take 5,000 Julissa aminah 125 1-20 units by Seybold MCG (5000 15:00: mouth - [place]) oral 13 daily Externa Capsule l Cobalamin 2022-[address] Kelse y Combination 1-20 5,000 mcg Sey bold s (B-12) 15:00: under the - 100-5000 13 tongue Externa MCG daily l sublingual SL Tab Levalbutero Yes 1{ampul Q4H Inhale 1 Julissa l HCl 1.25 1-20 e} ampule Seybold MG/3ML 15:00: into the - inhalation 13 lungs Externa Inhalant every 4 l Solution hours as needed Multiple 2022-0 Yes 1{capsu Take 1 Ava ey Vitamin 1-20 le} capsule by Seybol d (Multi-Eula 15:00: mouth 2 - mins) oral 13 times Externa Tablet daily l Timolol Yes 1[drp] Place 1 Kelse y Maleate 1-20 drop into Seybold (TIMOPTIC) 15:00: both eyes - 0.5 % 13 2 times Externa ophthalmic daily l Solution Ascorbic 0 Yes 1000mg Take 1,000 K elsey Acid 1000 1-20 mg by Seybold MG oral 15:00: mouth 2 - Tablet 13 times Externa daily l Aspirin 81 0 Yes 81mg Take 81 mg K elsey MG oral 1-20 by mouth Seybold Chewable 15:00: daily - Tablet 13 Externa l Cholecalcif 0 Yes 5000U Take 5,000 Julissa aminah 125 1-20 units by Seybold MCG (5000 15:00: mouth - [place]) oral 13 daily Externa Capsule l Cobalamin [address] Kelse y Combination 1-20 5,000 mcg Sey bold s () 15:00: under the - 100-4999 13 tongue Externa MCG daily l sublingual SL Tab Levalbutero Yes 1{ampul Q4H Inhale 1 Julissa l HCl 1.25 1-20 e} ampule Seybold MG/3ML 15:00: into the - inhalation 13 lungs Externa Inhalant every 4 l Solution hours as needed Multiple Yes 1{capsu Take 1 Ava ey Vitamin 1-20 le} capsule by Seybol d (Multi-Eula 15:00: mouth 2 - mins) oral 13 times Externa Tablet daily l Ascorbic 0 Yes 1000mg Take 1,000 K elsey Acid 1000 1-20 mg by Seybold MG oral 15:00: mouth 2 - Tablet 13 times Externa daily l Ascorbic 3-0 Yes 1000mg Take 1,000 K elsey Acid 1000 1-20 mg by Seybold MG oral 15:00: mouth 2 - Tablet 13 times Externa daily l Ascorbic 3-0 Yes 1000mg Take 1,000 K elsey Acid 1000 1-20 mg by Seybold MG oral 15:00: mouth 2 - Tablet 13 times Externa daily l Ascorbic 2023-0 Yes 1000mg Take 1,000 K elsey Acid 1000 1-20 mg by Seybold MG oral 15:00: mouth 2 - Tablet 13 times Externa daily l Ascorbic 3-0 Yes 1000mg Take 1,000 K elsey Acid 1000 1-20 mg by Seybold MG oral 15:00: mouth 2 - Tablet 13 times Externa daily l Trulicity 2022-0 Yes [id number] .75mg Inject Julissa 0.75 1-20 3 0.75 mg Seybold MG/0.5ML 00:00: into the - subcutaneou 00 skin once Ext nancy s Solution a week l Pen-injecto r Bupropion 2022-0 Yes [id number] 150mg Take 1 Julissa HCL XL 150 1-20 tablet Seybold MG OR TB24 00:00: (150 mg - 00 total) by Externa mouth l daily Famotidine 2022-0 Yes [id number] 20mg Take 1 Julissa (PEPCID) 20 1-20 tablet (20 Se ybold MG oral 00:00: mg total) - tablet 00 by mouth 2 Externa times l daily Trulicity 2022-0 Yes [id number] .75mg Inject Julissa 0.75 1-20 3 0.75 mg Seybold MG/0.5ML 00:00: into the - subcutaneou 00 skin once Ext nancy s Solution a week l Pen-injecto r Bupropion 3-0 Yes [id number] 150mg Take 1 Julissa HCL XL 150 1-20 tablet Seybold MG OR TB24 00:00: (150 mg - 00 total) by Externa mouth l daily Famotidine 3-0 Yes [id number] 20mg Take 1 Julissa (PEPCID) 20 1-20 tablet (20 Se ybold MG oral 00:00: mg total) - tablet 00 by mouth 2 Externa times l daily Trulicity 2022-0 Yes [id number] .75mg Inject Julissa 0.75 1-20 3 0.75 mg Seybold MG/0.5ML 00:00: into the - subcutaneou 00 skin once Ext nancy s Solution a week l Pen-injecto r Bupropion 2022-0 Yes [id number] 150mg Take 1 Julissa HCL XL 150 1-20 tablet Seybold MG OR TB24 00:00: (150 mg - 00 total) by Externa mouth l daily Famotidine 2022-0 Yes [id number] 20mg Take 1 Julissa (PEPCID) 20 1-20 tablet (20 Se ybold MG oral 00:00: mg total) - tablet 00 by mouth 2 Externa times l daily Trulicity 2022-0 Yes [id number] .75mg Inject Julissa 0.75 1-20 3 0.75 mg Seybold MG/0.5ML 00:00: into the - subcutaneou 00 skin once Ext nancy s Solution a week l Pen-injecto r Bupropion 2022-0 Yes [id number] 150mg Take 1 Julissa HCL XL 150 1-20 tablet Seybold MG OR TB24 00:00: (150 mg - 00 total) by Externa mouth l daily Famotidine 2022-0 Yes [id number] 20mg Take 1 Julissa (PEPCID) 20 1-20 tablet (20 Se ybold MG oral 00:00: mg total) - tablet 00 by mouth 2 Externa times l daily Famotidine 2022-0 Yes [id number] 20mg Take 1 Julissa (PEPCID) 20 1-20 tablet (20 Se ybold MG oral 00:00: mg total) - tablet 00 by mouth 2 Externa times l daily Famotidine 2022-0 Yes [id number] 20mg Take 1 Julissa (PEPCID) 20 1-20 tablet (20 Se ybold MG oral 00:00: mg total) - tablet 00 by mouth 2 Externa times l daily Famotidine 2022-0 Yes [id number] 20mg Take 1 Julissa (PEPCID) 20 1-20 tablet (20 Se ybold MG oral 00:00: mg total) - tablet 00 by mouth 2 Externa times l daily Famotidine Yes [id number] 20mg Take 1 Julissa (PEPCID) 20 1-20 tablet (20 Se ybold MG oral 00:00: mg total) - tablet 00 by mouth 2 Externa times l daily Trulicity 2022- No [id number] .75mg Inject Julissa 0.75 1-20 02-17 3 0.75 mg Seybold MG/0.5ML 00:00: 00:00 into the - subcutaneou 00 :00 skin once Ext nancy s Solution a week l Pen-injecto r Bupropion 2022- No [id number] 150mg Take 1 Julissa HCL XL 150 -20 -17 tablet Seybol d MG OR TB24 00:00: 00:00 (150 mg - 00 :00 total) by Externa mouth l daily Erenumab-ao Yes 140mg Inject 1 K elsey oe 1-18 mL (140 mg Seybold (Aimovig) 00:00: total) - 140 MG/ML 00 into the Naphthalene Operator a subcutaneou skin once l s Solution a month Auto-inject or injection Erenumab-ao Yes 140mg Inject 1 K elsey oe 1-18 mL (140 mg Seybold (Aimovig) 00:00: total) - 140 MG/ML 00 into the Naphthalene Operator a subcutaneou skin once l s Solution a month Auto-inject or injection Erenumab-ao Yes 140mg Inject 1 K elsey oe 1-18 mL (140 mg Seybold (Aimovig) 00:00: total) - 140 MG/ML 00 into the Naphthalene Operator a subcutaneou skin once l s Solution a month Auto-inject or injection Erenumab-ao Yes 140mg Inject 1 K elsey oe 1-18 mL (140 mg Seybold (Aimovig) 00:00: total) - 140 MG/ML 00 into the Naphthalene Operator a subcutaneou skin once l s Solution a month Auto-inject or injection Erenumab-ao Yes 140mg Inject 1 K elsey oe 1-18 mL (140 mg Seybold (Aimovig) 00:00: total) - 140 MG/ML 00 into the Naphthalene Operator a subcutaneou skin once l s Solution a month Auto-inject or injection Erenumab-ao Yes 140mg Inject 1 K elsey oe 1-18 mL (140 mg Seybold (Aimovig) 00:00: total) - 140 MG/ML 00 into the Naphthalene Operator a subcutaneou skin once l s Solution a month Auto-inject or injection Erenumab-ao Yes 140mg Inject 1 K elsey oe 1-18 mL (140 mg Seybold (Aimovig) 00:00: total) - 140 MG/ML 00 into the Naphthalene Operator a subcutaneou skin once l s Solution a month Auto-inject or injection Erenumab-ao Yes 140mg Inject 1 K elsey oe 1-18 mL (140 mg Seybold (Aimovig) 00:00: total) - 140 MG/ML 00 into the Naphthalene Operator a subcutaneou skin once l s Solution a month Auto-inject or injection erenumab-ao 2022- No 140mg Inject [address] [facility] ([place] 1-18 05-12 [facility]: [facility]:00 subcutaneo Medical r) 140 00 :00 usly every Center mg/mL AtIn 30 (thirty) days. erenumab-ao 2022- No 140mg Inject [address] [facility] ([place] 1-18 05-12 mg [facility] 00:00: 00:00 subcutaneo Medical r) 140 00 :00 usly every Center mg/mL AtIn 30 (thirty) days. erenumab-ao 2022- No 140mg Inject [address] [facility] ([place] 1-18 05-12 mg [facility] 00:00: 00:00 subcutaneo Medical r) 140 00 :00 usly every Center mg/mL AtIn 30 (thirty) days. Timolol Yes 1[drp] Place 1 Kelse y Maleate 1-17 drop into Seybold (TIMOPTIC) 12:42: both eyes - 0.5 % 34 2 times Externa ophthalmic daily l Solution Ascorbic Yes 1000mg Take 1,000 K elsey Acid 1000 1-17 mg by Seybold MG oral 12:42: mouth 2 - Tablet 34 times Externa daily l Aspirin 81 2022-0 Yes 81mg Take 81 mg K elsey MG oral 1-17 by mouth Seybold Chewable 12:42: daily - Tablet 34 Externa l Cholecalcif 2022-0 Yes 5000U Take 5,000 Julissa aminah 125 1-17 units by Seybold MCG (5000 12:42: mouth - [place]) oral 34 daily Externa Capsule l Cobalamin 2022-[address] Kelse y Combination 1-17 5,000 mcg Sey bold s (B-12) 12:42: under the - 100-5000 34 tongue Externa MCG daily l sublingual SL Tab Levalbutero 0 Yes 1{ampul Q4H Inhale 1 Julissa l HCl 1.25 1-17 e} ampule Seybold MG/3ML 12:42: into the - inhalation 34 lungs Externa Inhalant every 4 l Solution hours as needed Multiple 2022-0 Yes 1{capsu Take 1 Ava ey Vitamin 1-17 le} capsule by Seybol d (Multi-Eula 12:42: mouth 2 - mins) oral 34 times Externa Tablet daily l Ubrogepant 0 Yes [id number] 100mg Take 1 Julissa (Ubrelvy) 1-17 tablet Seybold 100 MG oral 00:00: (100 mg - Tablet 00 total) by Externa mouth as l needed for migraine Fremanezuma 0 Yes [id number] 225mg Inject 225 Julissa b-vfrm 1-17 mg into Seybold (Ajovy) 225 00:00: the skin - MG/1.5ML 00 once a Externa subcutaneou month l s Solution Auto-inject or Ubrogepant 0 Yes [id number] 100mg Take 1 Julissa (Ubrelvy) 1-17 tablet Seybold 100 MG oral 00:00: (100 mg - Tablet 00 total) by Externa mouth as l needed for migraine Ubrogepant 2022-0 Yes [id number] 100mg Take 1 Julissa (Ubrelvy) 1-17 tablet Seybold 100 MG oral 00:00: (100 mg - Tablet 00 total) by Externa mouth as l needed for migraine Ubrogepant 2022-0 Yes [id number] 100mg Take 1 Julissa (Ubrelvy) 1-17 tablet Seybold 100 MG oral 00:00: (100 mg - Tablet 00 total) by Externa mouth as l needed for migraine Ubrogepant 2023-0 Yes [id number] 100mg Take 1 Julissa (Ubrelvy) 1-17 tablet Seybold 100 MG oral 00:00: (100 mg - Tablet 00 total) by Externa mouth as l needed for migraine Ubrogepant 2023-0 Yes [id number] 100mg Take 1 Julissa (Ubrelvy) 1-17 tablet Seybold 100 MG oral 00:00: (100 mg - Tablet 00 total) by Externa mouth as l needed for migraine Ubrogepant 2023-0 Yes [id number] 100mg Take 1 Julissa (Ubrelvy) 1-17 tablet Seybold 100 MG oral 00:00: (100 mg - Tablet 00 total) by Externa mouth as l needed for migraine Ubrogepant 2023-0 Yes [id number] 100mg Take 1 Julissa (Ubrelvy) 1-17 tablet Seybold 100 MG oral 00:00: (100 mg - Tablet 00 total) by Externa mouth as l needed for migraine Ubrogepant 2023-0 Yes [id number] 100mg Take 1 Julissa (Ubrelvy) 1-17 tablet Seybold 100 MG oral 00:00: (100 mg - Tablet 00 total) by Externa mouth as l needed for migraine Ubrogepant 2023-0 Yes [id number] 100mg Take 1 Julissa (Ubrelvy) 1-17 tablet Seybold 100 MG oral 00:00: (100 mg - Tablet 00 total) by Externa mouth as l needed for migraine Ubrogepant 2023-0 Yes [id number] 100mg Take 1 Julissa (Ubrelvy) 1-17 tablet Seybold 100 MG oral 00:00: (100 mg - Tablet 00 total) by Externa mouth as l needed for migraine Ubrogepant 2023-0 Yes [id number] 100mg Take 1 Julissa (Ubrelvy) 1-17 tablet Seybold 100 MG oral 00:00: (100 mg - Tablet 00 total) by Externa mouth as l needed for migraine Ubrogepant 2023-0 Yes [id number] 100mg Take 1 Julissa (Ubrelvy) 1-17 tablet Seybold 100 MG oral 00:00: (100 mg - Tablet 00 total) by Externa mouth as l needed for migraine Ubrogepant 2022-0 Yes [id number] 100mg Take 1 Julissa (Ubrelvy) 1-17 tablet Seybold 100 MG oral 00:00: (100 mg - Tablet 00 total) by Externa mouth as l needed for migraine Ubrogepant 2022-0 2022- No [id number] 100mg Take 1 Julissa (Ubrelvy) 1-17 08-29 tablet Seybold 100 MG oral 00:00: 00:00 (100 mg - Tablet 00 :00 total) by Externa mouth as l needed for migraine Erenumab-ao 2022-0 2022- No [id number] 70mg Inject 1 Julissa oe -16 -17 mL (70 mg Seybold (Aimovig) 00:00: 00:00 total) - 70 MG/ML 00 :00 into the Externa subcutaneou skin once l s Solution a month Auto-inject or injection cycloSPORIN 2022-0 2022- No 1[drp] 1 drop 2 Julissa E 0.05 % 1-10 01-10 times Seybold ophthalmic 08:17: 00:00 daily - Emulsion 59 :00 Externa l Timolol 2022-0 Yes 1[drp] Place 1 Kelse y Maleate 1-10 drop into Seybold (TIMOPTIC) 07:56: both eyes - 0.5 % 49 2 times Externa ophthalmic daily l Solution Ascorbic 2022-0 Yes 1000mg Take 1,000 K elsey Acid 1000 1-10 mg by Seybold MG oral 07:56: mouth 2 - Tablet 49 times Externa daily l Aspirin 81 2022-0 Yes 81mg Take 81 mg K elsey MG oral 1-10 by mouth Seybold Chewable 07:56: daily - Tablet 49 Externa l Cholecalcif 2022-0 Yes 5000U Take 5,000 Julissa aminah 125 1-10 units by Seybold MCG (5000 07:56: mouth - UT) oral 49 daily Externa Capsule l Cobalamin 2022-[address] Kelse y Combination 1-10 5,000 mcg Sey bold s (B-12) 07:56: under the - 100-5000 49 tongue Externa MCG daily l sublingual SL Tab Levalbutero Yes 1{ampul Q4H Inhale 1 Julissa l HCl 1.25 1-10 e} ampule Seybold MG/3ML 07:56: into the - inhalation 49 lungs Externa Inhalant every 4 l Solution hours as needed Multiple Yes 1{capsu Take 1 Ava ey Vitamin 1-10 le} capsule by Seybol d (Multi-Eula 07:56: mouth 2 - mins) oral 49 times Externa Tablet daily l cycloSPORIN 2022- No 1[drp] 1 drop 2 Julissa E 0.05 % 1-10 01-10 times Seybold ophthalmic 07:54: 00:00 daily - Emulsion 47 :00 Externa l busPIRone 0 2022- No 5mg Take 5 mg Ke lsey HCl 5 MG 1-10 01-10 by mouth 3 Seyb old oral Tablet 07:54: 00:00 times - 20 :00 daily Externa l busPIRone 0 2022- No 5mg Take 5 mg Ke lsey HCl 5 MG 1-10 01-10 by mouth 2 Seyb old oral Tablet 07:54: 00:00 times - 17 :00 daily Externa l Fluticasone 0 Yes [id number] 1{puff} Inhale 1 Julissa -Salmeterol 1-10 puff into Sey bold (Advair 00:00: the lungs - Diskus) 00 2 times Externa 250-50 daily l MCG/ACT inhalation AEROSOL POWDER, BREATH ACTIVATED Fluticasone 0 Yes [id number] 1{puff} Inhale 1 Julissa -Salmeterol 1-10 puff into Sey bold (Advair 00:00: the lungs - Diskus) 00 2 times Externa 250-50 daily l MCG/ACT inhalation AEROSOL POWDER, BREATH ACTIVATED Fluticasone 0 Yes [id number] 1{puff} Inhale 1 Julissa -Salmeterol 1-10 puff into Sey bold (Advair 00:00: the lungs - Diskus) 00 2 times Externa 250-50 daily l MCG/ACT inhalation AEROSOL POWDER, BREATH ACTIVATED Fluticasone 0 Yes [id number] 1{puff} Inhale 1 Julissa -Salmeterol 1-10 puff into Sey bold (Advair 00:00: the lungs - Diskus) 00 2 times Externa 250-50 daily l MCG/ACT inhalation AEROSOL POWDER, BREATH ACTIVATED Fluticasone 2022-0 Yes [id number] 1{puff} Inhale 1 Julissa -Salmeterol 1-10 puff into Sey bold (Advair 00:00: the lungs - Diskus) 00 2 times Externa 250-50 daily l MCG/ACT inhalation AEROSOL POWDER, BREATH ACTIVATED Fluticasone 2022-0 Yes [id number] 1{puff} Inhale 1 Julissa -Salmeterol 1-10 puff into Sey bold (Advair 00:00: the lungs - Diskus) 00 2 times Externa 250-50 daily l MCG/ACT inhalation AEROSOL POWDER, BREATH ACTIVATED Fluticasone 2022-0 Yes [id number] 1{puff} Inhale 1 Julissa -Salmeterol 1-10 puff into Sey bold (Advair 00:00: the lungs - Diskus) 00 2 times Externa 250-50 daily l MCG/ACT inhalation AEROSOL POWDER, BREATH ACTIVATED Timolol 0.5 2022-0 Yes [id number] 1[drp] Place 1 Julissa % 1-10 drop into Seybold ophthalmic 00:00: both eyes - Solution 00 daily Externa l Ubrogepant 2022-0 Yes [id number] 100mg Take 1 Julissa (Ubrelvy) 1-10 tablet Seybold 100 MG oral 00:00: (100 mg - Tablet 00 total) by Externa mouth as l needed for migraine cycloSPORIN 2022-0 Yes [id number] 1[drp] Place 1 Julissa E (Restasis 1-10 drop into Sey bold MultiDose) 00:00: both eyes - 0.05 % 00 2 times Externa ophthalmic daily l Emulsion Prochlorper 2022-0 Yes [id number] 10mg Q.25D Take 1 Julissa azine 1-10 tablet (10 Seybold (COMPAZINE) 00:00: mg total) - 10 MG oral 00 by mouth Exter na Tablet every 6 l tablet hours as needed for nausea Fluticasone 2022-0 Yes [id number] 1{puff} Inhale 1 Julissa -Salmeterol 1-10 puff into Sey bold (Advair 00:00: the lungs - Diskus) 00 2 times Externa 250-50 daily l MCG/ACT inhalation AEROSOL POWDER, BREATH ACTIVATED Timolol 0.5 2022-0 Yes [id number] 1[drp] Place 1 Julissa % 1-10 drop into Seybold ophthalmic 00:00: both eyes - Solution 00 daily Externa l cycloSPORIN 3-0 Yes [id number] 1[drp] Place 1 Julissa E (Restasis 1-10 drop into Sey bold MultiDose) 00:00: both eyes - 0.05 % 00 2 times Externa ophthalmic daily l Emulsion Prochlorper 2022-0 Yes [id number] 10mg Q.25D Take 1 Julissa azine 1-10 tablet (10 Seybold (COMPAZINE) 00:00: mg total) - 10 MG oral 00 by mouth Exter na Tablet every 6 l tablet hours as needed for nausea Fluticasone 2022-0 Yes [id number] 1{puff} Inhale 1 Julissa -Salmeterol 1-10 puff into Sey bold (Advair 00:00: the lungs - Diskus) 00 2 times Externa 250-50 daily l MCG/ACT inhalation AEROSOL POWDER, BREATH ACTIVATED cycloSPORIN 2022-0 Yes [id number] 1[drp] Place 1 Julissa E (Restasis 1-10 drop into Sey bold MultiDose) 00:00: both eyes - 0.05 % 00 2 times Externa ophthalmic daily l Emulsion Prochlorper 3-0 Yes [id number] 10mg Q.25D Take 1 Julissa azine 1-10 tablet (10 Seybold (COMPAZINE) 00:00: mg total) - 10 MG oral 00 by mouth Exter na Tablet every 6 l tablet hours as needed for nausea Fluticasone 3-0 Yes [id number] 1{puff} Inhale 1 Julissa -Salmeterol 1-10 puff into Sey bold (Advair 00:00: the lungs - Diskus) 00 2 times Externa 250-50 daily l MCG/ACT inhalation AEROSOL POWDER, BREATH ACTIVATED cycloSPORIN 3-0 Yes [id number] 1[drp] Place 1 Julissa E (Restasis 1-10 drop into Sey bold MultiDose) 00:00: both eyes - 0.05 % 00 2 times Externa ophthalmic daily l Emulsion Prochlorper 2023-0 Yes [id number] 10mg Q.25D Take 1 Julissa azine 1-10 tablet (10 Seybold (COMPAZINE) 00:00: mg total) - 10 MG oral 00 by mouth Exter na Tablet every 6 l tablet hours as needed for nausea Fluticasone 2023-0 Yes [id number] 1{puff} Inhale 1 Julissa -Salmeterol 1-10 puff into Sey bold (Advair 00:00: the lungs - Diskus) 00 2 times Externa 250-50 daily l MCG/ACT inhalation AEROSOL POWDER, BREATH ACTIVATED cycloSPORIN 3-0 Yes [id number] 1[drp] Place 1 Julissa E (Restasis 1-10 drop into Sey bold MultiDose) 00:00: both eyes - 0.05 % 00 2 times Externa ophthalmic daily l Emulsion Prochlorper 2023-0 Yes [id number] 10mg Q.25D Take 1 Julissa azine 1-10 tablet (10 Seybold (COMPAZINE) 00:00: mg total) - 10 MG oral 00 by mouth Exter na Tablet every 6 l tablet hours as needed for nausea Fluticasone 2023-0 Yes [id number] 1{puff} Inhale 1 Julissa -Salmeterol 1-10 puff into Sey bold (Advair 00:00: the lungs - Diskus) 00 2 times Externa 250-50 daily l MCG/ACT inhalation AEROSOL POWDER, BREATH ACTIVATED cycloSPORIN 3-0 Yes [id number] 1[drp] Place 1 Julissa E (Restasis 1-10 drop into Sey bold MultiDose) 00:00: both eyes - 0.05 % 00 2 times Externa ophthalmic daily l Emulsion Prochlorper 2023-0 Yes [id number] 10mg Q.25D Take 1 Julissa azine 1-10 tablet (10 Seybold (COMPAZINE) 00:00: mg total) - 10 MG oral 00 by mouth Exter na Tablet every 6 l tablet hours as needed for nausea Fluticasone 2023-0 Yes [id number] 1{puff} Inhale 1 Julissa -Salmeterol 1-10 puff into Sey bold (Advair 00:00: the lungs - Diskus) 00 2 times Externa 250-50 daily l MCG/ACT inhalation AEROSOL POWDER, BREATH ACTIVATED cycloSPORIN 2022-0 Yes [id number] 1[drp] Place 1 Julissa Arguelles (Restasis 1-10 drop into Sey bold MultiDose) 00:00: both eyes - 0.05 % 00 2 times Externa ophthalmic daily l Emulsion Prochlorper 3-0 Yes [id number] 10mg Q.25D Take 1 Julissa azine 1-10 tablet (10 Seybold (COMPAZINE) 00:00: mg total) - 10 MG oral 00 by mouth Exter na Tablet every 6 l tablet hours as needed for nausea Fluticasone 2022-0 Yes [id number] 1{puff} Inhale 1 Julissa -Salmeterol 1-10 puff into Sey bold (Advair 00:00: the lungs - Diskus) 00 2 times Externa 250-50 daily l MCG/ACT inhalation AEROSOL POWDER, BREATH ACTIVATED cycloSPORIN 2022-0 Yes [id number] 1[drp] Place 1 Julissa E (Restasis 1-10 drop into Sey bold MultiDose) 00:00: both eyes - 0.05 % 00 2 times Externa ophthalmic daily l Emulsion Prochlorper 3-0 Yes [id number] 10mg Q.25D Take 1 Julissa azine 1-10 tablet (10 Seybold (COMPAZINE) 00:00: mg total) - 10 MG oral 00 by mouth Exter na Tablet every 6 l tablet hours as needed for nausea Fluticasone 3-0 Yes [id number] 1{puff} Inhale 1 Julissa -Salmeterol 1-10 puff into Sey bold (Advair 00:00: the lungs - Diskus) 00 2 times Externa 250-50 daily l MCG/ACT inhalation AEROSOL POWDER, BREATH ACTIVATED cycloSPORIN 3-0 Yes [id number] 1[drp] Place 1 Julissa E (Restasis 1-10 drop into Sey bold MultiDose) 00:00: both eyes - 0.05 % 00 2 times Externa ophthalmic daily l Emulsion Prochlorper 2023-0 Yes [id number] 10mg Q.25D Take 1 Julissa azine 1-10 tablet (10 Seybold (COMPAZINE) 00:00: mg total) - 10 MG oral 00 by mouth Exter na Tablet every 6 l tablet hours as needed for nausea Fluticasone 2023-0 Yes [id number] 1{puff} Inhale 1 Julissa -Salmeterol 1-10 puff into Sey bold (Advair 00:00: the lungs - Diskus) 00 2 times Externa 250-50 daily l MCG/ACT inhalation AEROSOL POWDER, BREATH ACTIVATED cycloSPORIN 3-0 Yes [id number] 1[drp] Place 1 Julissa E (Restasis 1-10 drop into Sey bold MultiDose) 00:00: both eyes - 0.05 % 00 2 times Externa ophthalmic daily l Emulsion Prochlorper 3-0 Yes [id number] 10mg Q.25D Take 1 Julissa azine 1-10 tablet (10 Seybold (COMPAZINE) 00:00: mg total) - 10 MG oral 00 by mouth Exter na Tablet every 6 l tablet hours as needed for nausea Fluticasone 2022-0 Yes [id number] 1{puff} Inhale 1 Julissa -Salmeterol 1-10 puff into Sey bold (Advair 00:00: the lungs - Diskus) 00 2 times Externa 250-50 daily l MCG/ACT inhalation AEROSOL POWDER, BREATH ACTIVATED cycloSPORIN 2022-0 Yes [id number] 1[drp] Place 1 Julissa E (Restasis 1-10 drop into Sey bold MultiDose) 00:00: both eyes - 0.05 % 00 2 times Externa ophthalmic daily l Emulsion Fluticasone 3-0 Yes [id number] 1{puff} Inhale 1 Julissa -Salmeterol 1-10 puff into Sey bold (Advair 00:00: the lungs - Diskus) 00 2 times Externa 250-50 daily l MCG/ACT inhalation AEROSOL POWDER, BREATH ACTIVATED cycloSPORIN 3-0 Yes [id number] 1[drp] Place 1 Julissa E (Restasis 1-10 drop into Sey bold MultiDose) 00:00: both eyes - 0.05 % 00 2 times Externa ophthalmic daily l Emulsion Fluticasone 2023-0 Yes [id number] 1{puff} Inhale 1 Julissa -Salmeterol 1-10 puff into Sey bold (Advair 00:00: the lungs - Diskus) 00 2 times Externa 250-50 daily l MCG/ACT inhalation AEROSOL POWDER, BREATH ACTIVATED cycloSPORIN 2022- Yes [id number] 1[drp] Place 1 Julissa Arguelles (Restasis 1-10 drop into Ferdinand bold MultiDose) 00:00: both eyes - 0.05 % 00 2 times Externa ophthalmic daily l Emulsion Fluticasone 2022-0 Yes [id number] 1{puff} Inhale 1 Julissa -Salmeterol 1-10 puff into Ferdinand bold (Advair 00:00: the lungs - Diskus) 00 2 times Externa 250-50 daily l MCG/ACT inhalation AEROSOL POWDER, BREATH ACTIVATED cycloSPORIN Yes [id number] 1[drp] Place 1 Julissa Arguelles (Restasis 1-10 drop into bSafe bold MultiDose) 00:00: both eyes - 0.05 % 00 2 times Externa ophthalmic daily l Emulsion Prochlorper 2022- No [id number] 10mg Q.25D Take 1 Julissa azine 1-10 05-17 tablet (10 Seybold (COMPAZINE) 00:00: 00:00 mg total) - 10 MG oral 00 :00 by mouth Exter na Tablet every 6 l tablet hours as needed for nausea fluticasone 2022- No 1{puff} Q.5D Inhale [address] [facility] propion-sylvia 1-10 05-12 puff by Luke s meteroL 00:00: 00:00 mouth via Medi jeanette (ADVAIR) 00 :00 inhaler in Cente r 250-50 the mcg/dose morning diskus and 1 puff inhaler before bedtime. fluticasone 2022-0 2022- No 1{puff} Q.5D Inhale [address] [facility] propion-sylvia 1-10 05-12 puff by Luke s meteroL 00:00: 00:00 mouth via Medi jeanette (ADVAIR) 00 :00 inhaler in Cente r 250-50 the mcg/dose morning diskus and 1 puff inhaler before bedtime. fluticasone 2022-0 2022- No 1{puff} Q.5D Inhale [address] [facility] propion-sylvia 1-10 05-12 puff by Luke s meteroL 00:00: 00:00 mouth via Medi jeanette (ADVAIR) 00 :00 inhaler in Cente r 250-50 the mcg/dose morning diskus and 1 puff inhaler before bedtime. Timolol 0.5 0 2022- No [id number] 1[drp] Place 1 Julissa % 10-08 drop into Seybold ophthalmic 00:00: 00:00 both eyes - Solution 00 :00 daily Externa l Ubrogepant 2022-0 2022- No [id number] 100mg Take 1 Julissa (Ubrelvy) 10-08 tablet Seybold 100 MG oral 00:00: 00:00 (100 mg - Tablet 00 :00 total) by Externa mouth as l needed for migraine busPIRone 0 Yes 5mg Take 5 mg Darlene sey HCl 5 MG 09 by mouth 2 Seybo ld oral Tablet 08:55: times - 49 daily Externa l cycloSPORIN 0 Yes 1[drp] 1 drop 2 Julissa E 0.05 % -09 times Seybold ophthalmic 08:55: daily - Emulsion 49 Externa l Timolol 0 Yes 1[drp] Place 1 Kelse y Maleate -09 drop into Seybold (TIMOPTIC) 08:55: both eyes - 0.5 % 49 2 times Externa ophthalmic daily l Solution Losartan 0 Yes [id number] 25mg Take 1 Ke lsey Potassium 1-09 tablet (25 Seyb old 25 MG oral 00:00: mg total) - Tablet 00 by mouth Externa daily l Losartan 2022-0 Yes [id number] 25mg Take 1 Ke lsey Potassium 1-09 tablet (25 Seyb old 25 MG oral 00:00: mg total) - Tablet 00 by mouth Externa daily l Losartan 2022-0 Yes [id number] 25mg Take 1 Ke lsey Potassium 1-09 tablet (25 Seyb old 25 MG oral 00:00: mg total) - Tablet 00 by mouth Externa daily l Losartan 2022-0 Yes [id number] 25mg Take 1 Ke lsey Potassium 1-09 tablet (25 Seyb old 25 MG oral 00:00: mg total) - Tablet 00 by mouth Externa daily l Losartan 2022-0 Yes [id number] 25mg Take 1 Ke lsey Potassium 1-09 tablet (25 Seyb old 25 MG oral 00:00: mg total) - Tablet 00 by mouth Externa daily l Losartan 2022-0 Yes [id number] 25mg Take 1 Ke lsey Potassium 1-09 tablet (25 Seyb old 25 MG oral 00:00: mg total) - Tablet 00 by mouth Externa daily l Losartan 2022-0 Yes [id number] 25mg Take 1 Ke lsey Potassium 1-09 tablet (25 Seyb old 25 MG oral 00:00: mg total) - Tablet 00 by mouth Externa daily l Losartan 2022-0 Yes [id number] 25mg Take 1 Ke lsey Potassium 1-09 tablet (25 Seyb old 25 MG oral 00:00: mg total) - Tablet 00 by mouth Externa daily l Losartan 2022-0 Yes [id number] 25mg Take 1 Ke lsey Potassium 1-09 tablet (25 Seyb old 25 MG oral 00:00: mg total) - Tablet 00 by mouth Externa daily l Losartan 2022-0 Yes [id number] 25mg Take 1 Ke lsey Potassium 1-09 tablet (25 Seyb old 25 MG oral 00:00: mg total) - Tablet 00 by mouth Externa daily l Galcanezuma 0 Yes 120mg Inject 1 K elsey b-gnlm 1-09 mL (120 mg Seybold (Emgality) 00:00: total) - 120 MG/ML 00 into the Naphthalene Operator a subcutaneou skin once l s Solution a month Auto-inject or injection losartan 2022- No 25mg QD Take [address] [facility] (COZAAR) 25 10-07 05-12 tablet (25 L ukes MG tablet 00:00: 00:00 mg total) Me dical 00 :00 by mouth Center in the morning. losartan 2022-0 2022- No 25mg QD Take [address] [facility] (COZAAR) 25 - 05-12 tablet (25 L ukes MG tablet 00:00: 00:00 mg total) Me dical 00 :00 by mouth Center in the morning. losartan 2022-0 2022- No 25mg QD Take [address] [facility] (COZAAR) 25 - 05-12 tablet (25 L ukes MG tablet 00:00: 00:00 mg total) Me dical 00 :00 by mouth Center in the morning. Galcanezuma 2022- No 120mg Inject 1 Julissa b-gnlm 10-07 mL (120 mg Seybol d (Emgality) 00:00: 00:00 total) - 120 MG/ML 00 :00 into the Naphthalene Operator a subcutaneou skin once l s Solution a month Auto-inject or injection Candesartan 2022- No 1{tbl} Take 1 K elsey Cilexetil 4 10-07 tablet by Se ybold MG oral 00:00: 00:00 mouth - Tablet 00 :00 daily Externa l Rivaroxaban 2022- No 2.5mg Take 2.5 Julissa (Xarelto) 10-04 mg by Seybold 2.5 MG oral 18:29: 00:00 mouth 2 - Tablet 58 :00 times Externa daily l Fluticasone 2022- No 2{puff} Inhale 2 Julissa -Salmeterol 10-04 puffs into S eybold (Advair 18:29: 00:00 the lungs - HFA) 230-21 58 :00 2 times Exter na MCG/ACT daily l inhalation Aerosol Nebivolol 2022- No 5mg Take 5 mg Ke lsey HCl 10-04 by mouth Seybold (Bystolic) 18:29: 00:00 daily - 5 MG oral 58 :00 Externa Tablet l Fluoxetine 2022- No 40mg Take 40 mg Julissa HCl 10-04 by mouth Seybold (PROzac) 40 18:29: 00:00 daily - MG oral 58 :00 Externa Capsule l LamoTRIgine 2022- No Take by Ke lsey 50 MG oral 10-04 mouth Seybold TABLET SR 18:29: 00:00 daily - 24 HR 58 :00 Externa l Mirtazapine 2022- No 7.5mg Take 7.5 Julissa 7.5 MG oral 10-04- mg by Seybol d Tablet 18:29: 00:00 mouth - 58 :00 nightly Externa l Pantoprazol 2022- No 40mg Take 40 mg Julissa e Sodium 40 10-04- by mouth 2 S eybold MG oral 18:29: 00:00 times - Tablet 58 :00 daily Externa Delayed l Response Fluvastatin 2022- No 20mg Take 20 mg Julissa Sodium 20 10-04- by mouth Seybo ld MG oral 18:29: 00:00 nightly - Capsule 58 :00 Externa l Ranolazine 2022-2022- No Take by Darlene y (Ranexa) 10-04-06 mouth 2 Seybold 1000 MG 18:13: 00:00 times - oral Tablet 29 :00 daily Externa 12 Hour l Sustained Release Pregabalin 2022-2022- No 100mg Take 100 K flory (Lyrica) 10-04-06 mg by Seybold 100 MG oral 18:13: 00:00 mouth 2 - Capsule 17 :00 times Externa daily l Orphenadrin 2022- No 100mg Take 100 Julissa e Citrate 10-04-06 mg by Seybold (NORFLEX 18:12: 00:00 mouth - OR) 02 :00 daily Externa l Metformin 2022- No 500mg Take 500 Ke lsey HCl 10-04-06 mg by Seybold (Glucophage 18:09: 00:00 mouth in - ) 500 MG 37 :00 the Externa oral Tablet morning l and 500 mg in the evening. Take with meals. Furosemide 2022- No 20mg Take 20 mg Julissa 20 MG oral 10-04- by mouth Seyb old Tablet 18:08: 00:00 daily - 22 :00 Externa l Candesartan 2022- No 1{tbl} Take 1 K elsey Cilexetil 4 10-04-06 tablet by Se ybold MG oral 18:06: 00:00 mouth - Tablet 04 :00 daily Externa l Diltiazem 2022- No 240mg Take 240 Ke lsey HCl CR 240 10-04-06 mg by Seybold MG oral 18:04: 00:00 mouth - Capsule 24 33 :00 daily Externa Hour l Sustained Release Aripiprazol 2022- No 1{tbl} Take 1 K elsey e (Abilify) 1-06 01-06 tablet by Se ybold 10 MG oral 18:02: 00:00 mouth - Tablet 55 :00 daily Externa l busPIRone Yes 5mg Take 5 mg Darlene sey HCl 5 MG -06 by mouth 2 Seybo ld oral Tablet 17:27: times - 11 daily Externa l cycloSPORIN Yes 1[drp] 1 drop 2 Julissa E 1-06 times Seybold (Restasis) 17:27: daily - 0.05 % 11 Externa ophthalmic l Emulsion Timolol Yes 1[drp] Place 1 Kelse y Maleate 1-06 drop into Seybold (TIMOPTIC) 17:27: both eyes - 0.5 % 11 2 times Externa ophthalmic daily l Solution Fluoxetine Yes [id number] 40mg Take 1 K elsey HCl 1-06 capsule Seybold (PROzac) 40 00:00: (40 mg - MG oral 00 total) by Externa Capsule mouth l daily LamoTRIgine 2022-0 Yes [id number] 1{tbl} Take 1 Julissa 50 MG oral 1-06 tablet by Seyb old TABLET SR 00:00: mouth - 24 HR 00 daily Externa l Orphenadrin 2022-0 Yes [id number] 100mg Take 1 Julissa e Citrate 1-06 104 tablet Seybold CR 100 MG 00:00: (100 mg - oral Tablet 00 total) by Ext nancy 12 Hour mouth l Sustained daily Release Fluoxetine 2022- Yes [id number] 40mg Take 1 K elsey HCl 1-06 capsule Seybold (PROzac) 40 00:00: (40 mg - MG oral 00 total) by Externa Capsule mouth l daily LamoTRIgine 2022-0 Yes [id number] 1{tbl} Take 1 Julissa 50 MG oral 1-06 tablet by Seyb old TABLET SR 00:00: mouth - 24 HR 00 daily Externa l Orphenadrin 2022-0 Yes [id number] 100mg Take 1 Julissa e Citrate 1-06 104 tablet Seybold CR 100 MG 00:00: (100 mg - oral Tablet 00 total) by Ext nancy 12 Hour mouth l Sustained daily Release Fluoxetine 2022- Yes [id number] 40mg Take 1 K elsey HCl 1-06 capsule Seybold (PROzac) 40 00:00: (40 mg - MG oral 00 total) by Externa Capsule mouth l daily LamoTRIgine 2022-0 Yes [id number] 1{tbl} Take 1 Julissa 50 MG oral 1-06 tablet by Seyb old TABLET SR 00:00: mouth - 24 HR 00 daily Externa l Fluoxetine 2022-0 Yes [id number] 40mg Take 1 K elsey HCl 1-06 capsule Seybold (PROzac) 40 00:00: (40 mg - MG oral 00 total) by Externa Capsule mouth l daily LamoTRIgine 2022-0 Yes [id number] 1{tbl} Take 1 Julissa 50 MG oral 1-06 tablet by Seyb old TABLET SR 00:00: mouth - 24 HR 00 daily Externa l Fluoxetine 2022-0 Yes [id number] 40mg Take 1 K elsey HCl 1-06 capsule Seybold (PROzac) 40 00:00: (40 mg - MG oral 00 total) by Externa Capsule mouth l daily LamoTRIgine 2022-0 Yes [id number] 1{tbl} Take 1 Julissa 50 MG oral 1-06 tablet by Seyb old TABLET SR 00:00: mouth - 24 HR 00 daily Externa l Fluoxetine 2022-0 Yes [id number] 40mg Take 1 K elsey HCl 1-06 capsule Seybold (PROzac) 40 00:00: (40 mg - MG oral 00 total) by Externa Capsule mouth l daily LamoTRIgine 2022-0 Yes [id number] 1{tbl} Take 1 Julissa 50 MG oral 1-06 tablet by Seyb old TABLET SR 00:00: mouth - 24 HR 00 daily Externa l Fluoxetine 2022-0 Yes [id number] 40mg Take 1 K elsey HCl 1-06 capsule Seybold (PROzac) 40 00:00: (40 mg - MG oral 00 total) by Externa Capsule mouth l daily LamoTRIgine 2022-0 Yes [id number] 1{tbl} Take 1 Julissa 50 MG oral 1-06 tablet by Seyb old TABLET SR 00:00: mouth - 24 HR 00 daily Externa l Diltiazem 3-0 Yes [id number] 120mg Take 1 Julissa HCl CR 120 1-06 capsule Seybol d MG oral 00:00: (120 mg - Capsule 24 00 total) by Exte rna Hour mouth l Sustained daily Release Fluoxetine 2022-0 Yes [id number] 40mg Take 1 K elsey HCl 1-06 capsule Seybold (PROzac) 40 00:00: (40 mg - MG oral 00 total) by Externa Capsule mouth l daily Fluoxetine 2022-0 Yes [id number] 40mg Take 1 K elsey HCl 1-06 capsule Seybold (PROzac) 40 00:00: (40 mg - MG oral 00 total) by Externa Capsule mouth l daily LamoTRIgine 2022-0 Yes [id number] 1{tbl} Take 1 Julissa 50 MG oral 1-06 tablet by Seyb old TABLET SR 00:00: mouth - 24 HR 00 daily Externa l Fluvastatin 2022-0 Yes [id number] 20mg Take 1 Julissa Sodium 20 1-06 capsule Seybold MG oral 00:00: (20 mg - Capsule 00 total) by Externa mouth l nightly LamoTRIgine 2022-0 Yes [id number] 1{tbl} Take 1 Julissa 50 MG oral 1-06 tablet by Seyb old TABLET SR 00:00: mouth - 24 HR 00 daily Externa l Mirtazapine 3-0 Yes [id number] 7.5mg Take 1 Julissa 7.5 MG oral 1-06 tablet Seybol d Tablet 00:00: (7.5 mg - 00 total) by Externa mouth l nightly Nebivolol 3-0 Yes [id number] 5mg Take 1 K elsey HCl 1-06 tablet (5 Seybold (Bystolic) 00:00: mg total) - 5 MG oral 00 by mouth Naphthalene Operator a Tablet daily l Orphenadrin 2022-0 Yes [id number] 100mg Take 1 Julissa e Citrate 1-06 104 tablet Seybold CR 100 MG 00:00: (100 mg - oral Tablet 00 total) by Ext nancy 12 Hour mouth l Sustained daily Release Pantoprazol 2022-0 Yes [id number] 40mg Take 1 Julissa e Sodium 40 1-06 104 tablet (40 Se ybold MG oral 00:00: mg total) - Tablet 00 by mouth 2 Externa Delayed times l Response daily Fluoxetine 2022-0 Yes [id number] 40mg Take 1 K elsey HCl 1-06 capsule Seybold (PROzac) 40 00:00: (40 mg - MG oral 00 total) by Externa Capsule mouth l daily LamoTRIgine Yes [id number] 1{tbl} Take 1 Julissa 50 MG oral 1-06 tablet by Seyb old TABLET SR 00:00: mouth - 24 HR 00 daily Externa l Rivaroxaban 2022-0 Yes [id number] 2.5mg Take 1 Julissa (Xarelto) 1-06 tablet Seybold 2.5 MG oral 00:00: (2.5 mg - Tablet 00 total) by Externa mouth 2 l times daily Tirzepatide Yes [id number] 5mg Inject 0.5 Julissa (Mounjaro) 1-06 3 mL (5 mg Seybo ld 5 MG/0.5ML 00:00: total) - subcutaneou 00 into the Exte rna s Solution skin every l Pen-injecto 14 days r Fluoxetine Yes [id number] 40mg Take 1 K elsey HCl 1-06 capsule Seybold (PROzac) 40 00:00: (40 mg - MG oral 00 total) by Externa Capsule mouth l daily LamoTRIgine Yes [id number] 1{tbl} Take 1 Julissa 50 MG oral 1-06 tablet by Seyb old TABLET SR 00:00: mouth - 24 HR 00 daily Externa l Fluoxetine 2022-0 Yes [id number] 40mg Take 1 K elsey HCl 1-06 capsule Seybold (PROzac) 40 00:00: (40 mg - MG oral 00 total) by Externa Capsule mouth l daily LamoTRIgine 2022-0 Yes [id number] 1{tbl} Take 1 Julissa 50 MG oral 1-06 tablet by Seyb old TABLET SR 00:00: mouth - 24 HR 00 daily Externa l Fluoxetine 2022-0 Yes [id number] 40mg Take 1 K elsey HCl 1-06 capsule Seybold (PROzac) 40 00:00: (40 mg - MG oral 00 total) by Externa Capsule mouth l daily LamoTRIgine 2022-0 Yes [id number] 1{tbl} Take 1 Julissa 50 MG oral 1-06 tablet by Seyb old TABLET SR 00:00: mouth - 24 HR 00 daily Externa l LamoTRIgine 2022-0 Yes [id number] 1{tbl} Take 1 Julissa 50 MG oral 1-06 tablet by Seyb old TABLET SR 00:00: mouth - 24 HR 00 daily Externa l Diltiazem 2022-0 Yes [id number] 120mg Take 1 Julissa HCl CR 120 1-06 capsule Seybol d MG oral 00:00: (120 mg - Capsule 24 00 total) by Exte rna Hour mouth l Sustained daily Release Fluoxetine 2022-0 Yes [id number] 40mg Take 1 K elsey HCl 1-06 capsule Seybold (PROzac) 40 00:00: (40 mg - MG oral 00 total) by Externa Capsule mouth l daily Fluvastatin 2022-0 Yes [id number] 20mg Take 1 Julissa Sodium 20 1-06 capsule Seybold MG oral 00:00: (20 mg - Capsule 00 total) by Externa mouth l nightly LamoTRIgine 2022-0 Yes [id number] 1{tbl} Take 1 Julissa 50 MG oral 1-06 tablet by Seyb old TABLET SR 00:00: mouth - 24 HR 00 daily Externa l Mirtazapine 2022-0 Yes [id number] 7.5mg Take 1 Julissa 7.5 MG oral 1-06 tablet Seybol d Tablet 00:00: (7.5 mg - 00 total) by Externa mouth l nightly Nebivolol 2022-0 Yes [id number] 5mg Take 1 K elsey HCl 1-06 tablet (5 Seybold (Bystolic) 00:00: mg total) - 5 MG oral 00 by mouth Naphthalene Operator a Tablet daily l Orphenadrin 2022-0 Yes [id number] 100mg Take 1 Julissa e Citrate 1-06 104 tablet Seybold CR 100 MG 00:00: (100 mg - oral Tablet 00 total) by Ext nancy 12 Hour mouth l Sustained daily Release Pantoprazol 2022-0 Yes [id number] 40mg Take 1 Julissa e Sodium 40 1-06 104 tablet (40 Se ybold MG oral 00:00: mg total) - Tablet 00 by mouth 2 Externa Delayed times l Response daily Rivaroxaban 2022-0 Yes [id number] 2.5mg Take 1 Julissa (Xarelto) 1-06 tablet Seybold 2.5 MG oral 00:00: (2.5 mg - Tablet 00 total) by Externa mouth 2 l times daily Tirzepatide 2022-0 Yes [id number] 5mg Inject 0.5 Julissa (Mounjaro) 1-06 3 mL (5 mg Seybo ld 5 MG/0.5ML 00:00: total) - subcutaneou 00 into the Exte rna s Solution skin every l Pen-injecto 14 days r Diltiazem 2022-0 Yes [id number] 120mg Take 1 Julissa HCl CR 120 1-06 capsule Seybol d MG oral 00:00: (120 mg - Capsule 24 00 total) by Exte rna Hour mouth l Sustained daily Release Fluoxetine 2022-0 Yes [id number] 40mg Take 1 K elsey HCl 1-06 capsule Seybold (PROzac) 40 00:00: (40 mg - MG oral 00 total) by Externa Capsule mouth l daily Fluvastatin 2022-0 Yes [id number] 20mg Take 1 Julissa Sodium 20 1-06 capsule Seybold MG oral 00:00: (20 mg - Capsule 00 total) by Externa mouth l nightly LamoTRIgine 2022-0 Yes [id number] 1{tbl} Take 1 Julissa 50 MG oral 1-06 tablet by Seyb old TABLET SR 00:00: mouth - 24 HR 00 daily Externa l Mirtazapine 2022-0 Yes [id number] 7.5mg Take 1 Julissa 7.5 MG oral 1-06 tablet Seybol d Tablet 00:00: (7.5 mg - 00 total) by Externa mouth l nightly Nebivolol 2022-0 Yes [id number] 5mg Take 1 K elsey HCl 1-06 tablet (5 Seybold (Bystolic) 00:00: mg total) - 5 MG oral 00 by mouth Naphthalene Operator a Tablet daily l Orphenadrin 2022-0 Yes [id number] 100mg Take 1 Julissa e Citrate 1-06 104 tablet Seybold CR 100 MG 00:00: (100 mg - oral Tablet 00 total) by Ext nancy 12 Hour mouth l Sustained daily Release Pantoprazol 2022-0 Yes [id number] 40mg Take 1 Julissa e Sodium 40 1-06 104 tablet (40 Se ybold MG oral 00:00: mg total) - Tablet 00 by mouth 2 Externa Delayed times l Response daily Rivaroxaban 2022- Yes [id number] 2.5mg Take 1 Julissa (Xarelto) 1-06 tablet Seybold 2.5 MG oral 00:00: (2.5 mg - Tablet 00 total) by Externa mouth 2 l times daily Diltiazem 2022-0 Yes [id number] 120mg Take 1 Julissa HCl CR 120 1-06 capsule Seybol d MG oral 00:00: (120 mg - Capsule 24 00 total) by Exte rna Hour mouth l Sustained daily Release Fluoxetine 2022-0 Yes [id number] 40mg Take 1 K elsey HCl 1-06 capsule Seybold (PROzac) 40 00:00: (40 mg - MG oral 00 total) by Externa Capsule mouth l daily Fluvastatin 2022- Yes [id number] 20mg Take 1 Julissa Sodium 20 1-06 capsule Seybold MG oral 00:00: (20 mg - Capsule 00 total) by Externa mouth l nightly LamoTRIgine 2022-0 Yes [id number] 1{tbl} Take 1 Julissa 50 MG oral 1-06 tablet by Seyb old TABLET SR 00:00: mouth - 24 HR 00 daily Externa l Mirtazapine 2022-0 Yes [id number] 7.5mg Take 1 Julissa 7.5 MG oral 1-06 tablet Seybol d Tablet 00:00: (7.5 mg - 00 total) by Externa mouth l nightly Nebivolol 2022-0 Yes [id number] 5mg Take 1 K elsey HCl 1-06 tablet (5 Seybold (Bystolic) 00:00: mg total) - 5 MG oral 00 by mouth Naphthalene Operator a Tablet daily l Orphenadrin 2022-0 Yes [id number] 100mg Take 1 Julissa e Citrate 1-06 104 tablet Seybold CR 100 MG 00:00: (100 mg - oral Tablet 00 total) by Ext nancy 12 Hour mouth l Sustained daily Release Pantoprazol 2022-0 Yes [id number] 40mg Take 1 Julissa e Sodium 40 1-06 104 tablet (40 Se ybold MG oral 00:00: mg total) - Tablet 00 by mouth 2 Externa Delayed times l Response daily Rivaroxaban 2022- Yes [id number] 2.5mg Take 1 Julissa (Xarelto) 1-06 tablet Seybold 2.5 MG oral 00:00: (2.5 mg - Tablet 00 total) by Externa mouth 2 l times daily Diltiazem 2022-0 Yes [id number] 120mg Take 1 Julissa HCl CR 120 1-06 capsule Seybol d MG oral 00:00: (120 mg - Capsule 24 00 total) by Exte rna Hour mouth l Sustained daily Release Fluoxetine 2022-0 Yes [id number] 40mg Take 1 K elsey HCl 1-06 capsule Seybold (PROzac) 40 00:00: (40 mg - MG oral 00 total) by Externa Capsule mouth l daily Fluvastatin 2022-0 Yes [id number] 20mg Take 1 Julissa Sodium 20 1-06 capsule Seybold MG oral 00:00: (20 mg - Capsule 00 total) by Externa mouth l nightly LamoTRIgine 2022-0 Yes [id number] 1{tbl} Take 1 Julissa 50 MG oral 1-06 tablet by Seyb old TABLET SR 00:00: mouth - 24 HR 00 daily Externa l Mirtazapine 2022-0 Yes [id number] 7.5mg Take 1 Julissa 7.5 MG oral 1-06 tablet Seybol d Tablet 00:00: (7.5 mg - 00 total) by Externa mouth l nightly Nebivolol 2022-0 Yes [id number] 5mg Take 1 K elsey HCl 1-06 tablet (5 Seybold (Bystolic) 00:00: mg total) - 5 MG oral 00 by mouth Naphthalene Operator a Tablet daily l Orphenadrin 2022-0 Yes [id number] 100mg Take 1 Julissa e Citrate 1-06 104 tablet Seybold CR 100 MG 00:00: (100 mg - oral Tablet 00 total) by Ext nancy 12 Hour mouth l Sustained daily Release Pantoprazol 2022-0 Yes [id number] 40mg Take 1 Julissa e Sodium 40 1-06 104 tablet (40 Se ybold MG oral 00:00: mg total) - Tablet 00 by mouth 2 Externa Delayed times l Response daily Rivaroxaban 2022-0 Yes [id number] 2.5mg Take 1 Julissa (Xarelto) 1-06 tablet Seybold 2.5 MG oral 00:00: (2.5 mg - Tablet 00 total) by Externa mouth 2 l times daily Diltiazem 2022-0 Yes [id number] 120mg Take 1 Julissa HCl CR 120 1-06 capsule Seybol d MG oral 00:00: (120 mg - Capsule 24 00 total) by Exte rna Hour mouth l Sustained daily Release Fluoxetine 2022-0 Yes [id number] 40mg Take 1 K elsey HCl 1-06 capsule Seybold (PROzac) 40 00:00: (40 mg - MG oral 00 total) by Externa Capsule mouth l daily Fluvastatin 2022-0 Yes [id number] 20mg Take 1 Julissa Sodium 20 1-06 capsule Seybold MG oral 00:00: (20 mg - Capsule 00 total) by Externa mouth l nightly LamoTRIgine 2022-0 Yes [id number] 1{tbl} Take 1 Julissa 50 MG oral 1-06 tablet by Seyb old TABLET SR 00:00: mouth - 24 HR 00 daily Externa l Mirtazapine 2022-0 Yes [id number] 7.5mg Take 1 Julissa 7.5 MG oral 1-06 tablet Seybol d Tablet 00:00: (7.5 mg - 00 total) by Externa mouth l nightly Nebivolol 2022-0 Yes [id number] 5mg Take 1 K elsey HCl 1-06 tablet (5 Seybold (Bystolic) 00:00: mg total) - 5 MG oral 00 by mouth Naphthalene Operator a Tablet daily l Orphenadrin 2022-0 Yes [id number] 100mg Take 1 Julissa e Citrate 1-06 104 tablet Seybold CR 100 MG 00:00: (100 mg - oral Tablet 00 total) by Ext nancy 12 Hour mouth l Sustained daily Release Pantoprazol 2022-0 Yes [id number] 40mg Take 1 Julissa e Sodium 40 1-06 104 tablet (40 Se ybold MG oral 00:00: mg total) - Tablet 00 by mouth 2 Externa Delayed times l Response daily Rivaroxaban 2022-0 Yes [id number] 2.5mg Take 1 Julissa (Xarelto) 1-06 tablet Seybold 2.5 MG oral 00:00: (2.5 mg - Tablet 00 total) by Externa mouth 2 l times daily Diltiazem 2022-0 Yes [id number] 120mg Take 1 Julissa HCl CR 120 1-06 capsule Seybol d MG oral 00:00: (120 mg - Capsule 24 00 total) by Exte rna Hour mouth l Sustained daily Release Fluoxetine 2022-0 Yes [id number] 40mg Take 1 K elsey HCl 1-06 capsule Seybold (PROzac) 40 00:00: (40 mg - MG oral 00 total) by Externa Capsule mouth l daily Fluvastatin 2022-0 Yes [id number] 20mg Take 1 Julissa Sodium 20 1-06 capsule Seybold MG oral 00:00: (20 mg - Capsule 00 total) by Externa mouth l nightly LamoTRIgine 2022-0 Yes [id number] 1{tbl} Take 1 Julissa 50 MG oral 1-06 tablet by Seyb old TABLET SR 00:00: mouth - 24 HR 00 daily Externa l Mirtazapine 2022-0 Yes [id number] 7.5mg Take 1 Julissa 7.5 MG oral 1-06 tablet Seybol d Tablet 00:00: (7.5 mg - 00 total) by Externa mouth l nightly Nebivolol 2022-0 Yes [id number] 5mg Take 1 K elsey HCl 1-06 tablet (5 Seybold (Bystolic) 00:00: mg total) - 5 MG oral 00 by mouth Naphthalene Operator a Tablet daily l Orphenadrin 2022-0 Yes [id number] 100mg Take 1 Julissa e Citrate 1-06 104 tablet Seybold CR 100 MG 00:00: (100 mg - oral Tablet 00 total) by Ext nancy 12 Hour mouth l Sustained daily Release Pantoprazol 2022-0 Yes [id number] 40mg Take 1 Julissa e Sodium 40 1-06 104 tablet (40 Se ybold MG oral 00:00: mg total) - Tablet 00 by mouth 2 Externa Delayed times l Response daily Rivaroxaban 2022-0 Yes [id number] 2.5mg Take 1 Julissa (Xarelto) 1-06 tablet Seybold 2.5 MG oral 00:00: (2.5 mg - Tablet 00 total) by Externa mouth 2 l times daily Diltiazem 2022-0 Yes [id number] 120mg Take 1 Julissa HCl CR 120 1-06 capsule Seybol d MG oral 00:00: (120 mg - Capsule 24 00 total) by Exte rna Hour mouth l Sustained daily Release Fluoxetine 2022-0 Yes [id number] 40mg Take 1 K elsey HCl 1-06 capsule Seybold (PROzac) 40 00:00: (40 mg - MG oral 00 total) by Externa Capsule mouth l daily Fluvastatin 2022-0 Yes [id number] 20mg Take 1 Julissa Sodium 20 1-06 capsule Seybold MG oral 00:00: (20 mg - Capsule 00 total) by Externa mouth l nightly LamoTRIgine 2022-0 Yes [id number] 1{tbl} Take 1 Julissa 50 MG oral 1-06 tablet by Seyb old TABLET SR 00:00: mouth - 24 HR 00 daily Externa l Mirtazapine 2022-0 Yes [id number] 7.5mg Take 1 Julissa 7.5 MG oral 1-06 tablet Seybol d Tablet 00:00: (7.5 mg - 00 total) by Externa mouth l nightly Nebivolol 2022-0 Yes [id number] 5mg Take 1 K elsey HCl 1-06 tablet (5 Seybold (Bystolic) 00:00: mg total) - 5 MG oral 00 by mouth Naphthalene Operator a Tablet daily l Orphenadrin 2022-0 Yes [id number] 100mg Take 1 Julissa e Citrate 1-06 104 tablet Seybold CR 100 MG 00:00: (100 mg - oral Tablet 00 total) by Ext nancy 12 Hour mouth l Sustained daily Release Pantoprazol 2022-0 Yes [id number] 40mg Take 1 Julissa e Sodium 40 1-06 104 tablet (40 Se ybold MG oral 00:00: mg total) - Tablet 00 by mouth 2 Externa Delayed times l Response daily Rivaroxaban 2022-0 Yes [id number] 2.5mg Take 1 Julissa (Xarelto) 1-06 tablet Seybold 2.5 MG oral 00:00: (2.5 mg - Tablet 00 total) by Externa mouth 2 l times daily Diltiazem 2022-0 Yes [id number] 120mg Take 1 Julissa HCl CR 120 1-06 capsule Seybol d MG oral 00:00: (120 mg - Capsule 24 00 total) by Exte rna Hour mouth l Sustained daily Release Fluoxetine 2022-0 Yes [id number] 40mg Take 1 K elsey HCl 1-06 capsule Seybold (PROzac) 40 00:00: (40 mg - MG oral 00 total) by Externa Capsule mouth l daily Fluvastatin 2022-0 Yes [id number] 20mg Take 1 Julissa Sodium 20 1-06 capsule Seybold MG oral 00:00: (20 mg - Capsule 00 total) by Externa mouth l nightly LamoTRIgine 2022-0 Yes [id number] 1{tbl} Take 1 Julissa 50 MG oral 1-06 tablet by Seyb old TABLET SR 00:00: mouth - 24 HR 00 daily Externa l Mirtazapine 2022-0 Yes [id number] 7.5mg Take 1 Julissa 7.5 MG oral 1-06 tablet Seybol d Tablet 00:00: (7.5 mg - 00 total) by Externa mouth l nightly Nebivolol 2022-0 Yes [id number] 5mg Take 1 K elsey HCl 1-06 tablet (5 Seybold (Bystolic) 00:00: mg total) - 5 MG oral 00 by mouth Naphthalene Operator a Tablet daily l Orphenadrin 2022-0 Yes [id number] 100mg Take 1 Julissa e Citrate 1-06 104 tablet Seybold CR 100 MG 00:00: (100 mg - oral Tablet 00 total) by Ext nancy 12 Hour mouth l Sustained daily Release Pantoprazol 2022-0 Yes [id number] 40mg Take 1 Julissa e Sodium 40 1-06 104 tablet (40 Se ybold MG oral 00:00: mg total) - Tablet 00 by mouth 2 Externa Delayed times l Response daily Rivaroxaban 2022-0 Yes [id number] 2.5mg Take 1 Julissa (Xarelto) 1-06 tablet Seybold 2.5 MG oral 00:00: (2.5 mg - Tablet 00 total) by Externa mouth 2 l times daily Diltiazem 2022-0 Yes [id number] 120mg Take 1 Julissa HCl CR 120 1-06 capsule Seybol d MG oral 00:00: (120 mg - Capsule 24 00 total) by Exte rna Hour mouth l Sustained daily Release Candesartan 3-0 Yes [id number] 1{tbl} Take 1 Julissa Cilexetil 4 1-06 tablet by Sey bold MG oral 00:00: mouth - Tablet 00 daily Externa l Fluoxetine 2023-0 Yes [id number] 40mg Take 1 K elsey HCl 1-06 capsule Seybold (PROzac) 40 00:00: (40 mg - MG oral 00 total) by Externa Capsule mouth l daily Fluticasone 2022-0 Yes [id number] 2{puff} Inhale 2 Julissa -Salmeterol 1-06 104 puffs into Se ybold (Advair 00:00: the lungs - HFA) 230-21 00 2 times Exter na MCG/ACT daily l inhalation Aerosol Fluvastatin 2022-0 Yes [id number] 20mg Take 1 Julissa Sodium 20 1-06 capsule Seybold MG oral 00:00: (20 mg - Capsule 00 total) by Externa mouth l nightly LamoTRIgine 2022-0 Yes [id number] 1{tbl} Take 1 Julissa 50 MG oral 1-06 tablet by Seyb old TABLET SR 00:00: mouth - 24 HR 00 daily Externa l Diltiazem 2022-0 Yes [id number] 120mg Take 1 Julissa HCl CR 120 1-06 capsule Seybol d MG oral 00:00: (120 mg - Capsule 24 00 total) by Exte rna Hour mouth l Sustained daily Release Fluoxetine 2022-0 Yes [id number] 40mg Take 1 K elsey HCl 1-06 capsule Seybold (PROzac) 40 00:00: (40 mg - MG oral 00 total) by Externa Capsule mouth l daily Fluvastatin 2022-0 Yes [id number] 20mg Take 1 Julissa Sodium 20 1-06 capsule Seybold MG oral 00:00: (20 mg - Capsule 00 total) by Externa mouth l nightly LamoTRIgine 2022-0 Yes [id number] 1{tbl} Take 1 Julissa 50 MG oral 1-06 tablet by Seyb old TABLET SR 00:00: mouth - 24 HR 00 daily Externa l Mirtazapine 2022-0 Yes [id number] 7.5mg Take 1 Julissa 7.5 MG oral 1-06 tablet Seybol d Tablet 00:00: (7.5 mg - 00 total) by Externa mouth l nightly Nebivolol 3-0 Yes [id number] 5mg Take 1 K elsey HCl 1-06 tablet (5 Seybold (Bystolic) 00:00: mg total) - 5 MG oral 00 by mouth Naphthalene Operator a Tablet daily l Mirtazapine 2022-0 Yes [id number] 7.5mg Take 1 Julissa 7.5 MG oral 1-06 tablet Seybol d Tablet 00:00: (7.5 mg - 00 total) by Externa mouth l nightly Orphenadrin 2022-0 Yes [id number] 100mg Take 1 Julissa e Citrate 1-06 104 tablet Seybold CR 100 MG 00:00: (100 mg - oral Tablet 00 total) by Ext nancy 12 Hour mouth l Sustained daily Release Rivaroxaban 2022-0 Yes [id number] 2.5mg Take 1 Julissa (Xarelto) 1-06 tablet Seybold 2.5 MG oral 00:00: (2.5 mg - Tablet 00 total) by Externa mouth 2 l times daily Nebivolol 2022-0 Yes [id number] 5mg Take 1 K elsey HCl 1-06 tablet (5 Seybold (Bystolic) 00:00: mg total) - 5 MG oral 00 by mouth Naphthalene Operator a Tablet daily l Orphenadrin 2022-0 Yes [id number] 100mg Take 1 Julissa e Citrate 1-06 104 tablet Seybold CR 100 MG 00:00: (100 mg - oral Tablet 00 total) by Ext nancy 12 Hour mouth l Sustained daily Release Pantoprazol 2022-0 Yes [id number] 40mg Take 1 Julissa e Sodium 40 1-06 104 tablet (40 Se ybold MG oral 00:00: mg total) - Tablet 00 by mouth 2 Externa Delayed times l Response daily Rivaroxaban 2022-0 Yes [id number] 2.5mg Take 1 Julissa (Xarelto) 1-06 tablet Seybold 2.5 MG oral 00:00: (2.5 mg - Tablet 00 total) by Externa mouth 2 l times daily Tirzepatide 2022-0 Yes [id number] 5mg Inject 0.5 Julissa (Mounjaro) 1-06 3 mL (5 mg Seybo ld 5 MG/0.5ML 00:00: total) - subcutaneou 00 into the Exte rna s Solution skin every l Pen-injecto 14 days r Fluoxetine 2022-0 Yes [id number] 40mg Take 1 K elsey HCl 1-06 capsule Seybold (PROzac) 40 00:00: (40 mg - MG oral 00 total) by Externa Capsule mouth l daily LamoTRIgine 3-0 Yes [id number] 1{tbl} Take 1 Julissa 50 MG oral 1-06 tablet by Seyb old TABLET SR 00:00: mouth - 24 HR 00 daily Externa l Mirtazapine 3-0 Yes [id number] 7.5mg Take 1 Julissa 7.5 MG oral 1-06 tablet Seybol d Tablet 00:00: (7.5 mg - 00 total) by Externa mouth l nightly Orphenadrin 3-0 Yes [id number] 100mg Take 1 Julissa e Citrate 1-06 104 tablet Seybold CR 100 MG 00:00: (100 mg - oral Tablet 00 total) by Ext nancy 12 Hour mouth l Sustained daily Release Rivaroxaban 2022-0 Yes [id number] 2.5mg Take 1 Julissa (Xarelto) 1-06 tablet Seybold 2.5 MG oral 00:00: (2.5 mg - Tablet 00 total) by Externa mouth 2 l times daily Fluoxetine 3-0 Yes [id number] 40mg Take 1 K elsey HCl 1-06 capsule Seybold (PROzac) 40 00:00: (40 mg - MG oral 00 total) by Externa Capsule mouth l daily LamoTRIgine 3-0 Yes [id number] 1{tbl} Take 1 Julissa 50 MG oral 1-06 tablet by Seyb old TABLET SR 00:00: mouth - 24 HR 00 daily Externa l Mirtazapine 3-0 Yes [id number] 7.5mg Take 1 Julissa 7.5 MG oral 1-06 tablet Seybol d Tablet 00:00: (7.5 mg - 00 total) by Externa mouth l nightly Orphenadrin 2023-0 Yes [id number] 100mg Take 1 Julissa e Citrate 1-06 104 tablet Seybold CR 100 MG 00:00: (100 mg - oral Tablet 00 total) by Ext nancy 12 Hour mouth l Sustained daily Release Diltiazem 3-0 Yes [id number] 120mg Take 1 Julissa HCl CR 120 1-06 capsule Seybol d MG oral 00:00: (120 mg - Capsule 24 00 total) by Exte rna Hour mouth l Sustained daily Release Candesartan 2022-0 Yes [id number] 1{tbl} Take 1 Julissa Cilexetil 4 1-06 tablet by Sey bold MG oral 00:00: mouth - Tablet 00 daily Externa l Fluoxetine 2022-0 Yes [id number] 40mg Take 1 K elsey HCl 1-06 capsule Seybold (PROzac) 40 00:00: (40 mg - MG oral 00 total) by Externa Capsule mouth l daily Fluoxetine 2022-0 Yes [id number] 40mg Take 1 K elsey HCl 1-06 capsule Seybold (PROzac) 40 00:00: (40 mg - MG oral 00 total) by Externa Capsule mouth l daily LamoTRIgine 2022-0 Yes [id number] 1{tbl} Take 1 Julissa 50 MG oral 1-06 tablet by Seyb old TABLET SR 00:00: mouth - 24 HR 00 daily Externa l Fluticasone 2022-0 Yes [id number] 2{puff} Inhale 2 Julissa -Salmeterol 1-06 104 puffs into Se ybold (Advair 00:00: the lungs - HFA) 230-21 00 2 times Exter na MCG/ACT daily l inhalation Aerosol Orphenadrin 2022-0 Yes [id number] 100mg Take 1 Julissa e Citrate 1-06 104 tablet Seybold CR 100 MG 00:00: (100 mg - oral Tablet 00 total) by Ext nancy 12 Hour mouth l Sustained daily Release Fluvastatin 2022-0 Yes [id number] 20mg Take 1 Julissa Sodium 20 1-06 capsule Seybold MG oral 00:00: (20 mg - Capsule 00 total) by Externa mouth l nightly LamoTRIgine 2022-0 Yes [id number] 1{tbl} Take 1 Julissa 50 MG oral 1-06 tablet by Seyb old TABLET SR 00:00: mouth - 24 HR 00 daily Externa l Mirtazapine 2022-0 Yes [id number] 7.5mg Take 1 Julissa 7.5 MG oral 1-06 tablet Seybol d Tablet 00:00: (7.5 mg - 00 total) by Externa mouth l nightly Nebivolol 2022-0 Yes [id number] 5mg Take 1 K elsey HCl 1-06 tablet (5 Seybold (Bystolic) 00:00: mg total) - 5 MG oral 00 by mouth Naphthalene Operator a Tablet daily l Orphenadrin Yes [id number] 100mg Take 1 Julissa e Citrate 1-06 104 tablet Seybold CR 100 MG 00:00: (100 mg - oral Tablet 00 total) by Ext nancy 12 Hour mouth l Sustained daily Release Pantoprazol 0 Yes [id number] 40mg Take 1 Julissa e Sodium 40 10-04 104 tablet (40 Se ybold MG oral 00:00: mg total) - Tablet 00 by mouth 2 Externa Delayed times l Response daily Rivaroxaban 0 Yes [id number] 2.5mg Take 1 Julissa (Xarelto) 06 tablet Seybold 2.5 MG oral 00:00: (2.5 mg - Tablet 00 total) by Externa mouth 2 l times daily Fluoxetine Yes [id number] 40mg Take 1 K elsey HCl -06 capsule Seybold (PROzac) 40 00:00: (40 mg - MG oral 00 total) by Externa Capsule mouth l daily LamoTRIgine 0 Yes [id number] 1{tbl} Take 1 Julissa 50 MG oral 06 tablet by Seyb old TABLET SR 00:00: mouth - 24 HR 00 daily Externa l Orphenadrin 0 Yes [id number] 100mg Take 1 Julissa e Citrate - 104 tablet Seybold CR 100 MG 00:00: (100 mg - oral Tablet 00 total) by Ext nancy 12 Hour mouth l Sustained daily Release Tirzepatide 0 Yes [id number] 5mg Inject 0.5 Julissa (Mounjaro) -06 3 mL (5 mg Seybo ld 5 MG/0.5ML 00:00: total) - subcutaneou 00 into the Exte rna s Solution skin every l Pen-injecto 14 days r Fluoxetine 2022- No [id number] 40mg Take 1 Julissa HCl -06 11-15 capsule Seybold (PROzac) 40 00:00: 00:00 (40 mg - MG oral 00 :00 total) by Externa Capsule mouth l daily Orphenadrin 2022-0 2022- No [id number] 100mg Take 1 Julissa e Citrate 1-06 08-30 104 tablet Seybold CR 100 MG 00:00: 00:00 (100 mg - oral Tablet 00 :00 total) by Ext nancy 12 Hour mouth l Sustained daily Release Mirtazapine 2022- No [id number] 7.5mg Take 1 Julissa 7.5 MG oral 10-04 tablet Seybo ld Tablet 00:00: 00:00 (7.5 mg - 00 :00 total) by Externa mouth l nightly Rivaroxaban 2022- No [id number] 2.5mg Take 1 Julissa (Xarelto) 10-04 tablet Seybold 2.5 MG oral 00:00: 00:00 (2.5 mg - Tablet 00 :00 total) by Externa mouth 2 l times daily diltiazem 2022- No 120mg QD Take [address] [facility] ([facility] 10-04 [facility]) 120 MG 00:00: 00:00 (120 mg Med ical 24 hr 00 :00 total) by Center capsule mouth in the morning. diltiazem 2022- No 120mg QD Take [address] [facility] ([facility] 10-04 [facility]) 120 MG 00:00: 00:00 (120 mg Med ical 24 hr 00 :00 total) by Center capsule mouth in the morning. diltiazem 2022- No 120mg QD Take [address] [facility] ([facility]OR 10-04 [facility]) 120 MG 00:00: 00:00 (120 mg Med ical 24 hr 00 :00 total) by Center capsule mouth in the morning. Tirzepatide 2022- No [id number] 5mg Inject 0.5 Julissa (Mounjaro) 10-04 3 mL (5 mg Seyb old 5 MG/0.5ML 00:00: 00:00 total) - subcutaneou 00 :00 into the Exte rna s Solution skin every l Pen-injecto 14 days r Fluticasone 2022- No [id number] 2{puff} Inhale 2 Julissa -Salmeterol 10-04 104 puffs into S eybold (Advair 00:00: 00:00 the lungs - HFA) 230-21 00 :00 2 times Exter na MCG/ACT daily l inhalation Aerosol mirtazapine 2021-09 Yes 7.5mg QD Take 7.5 [facility] ([facility]) 1-[address] 15 MG 17:11: mouth [facility] tablet nightly. l mirtazapine 2021-09 Yes 7.5mg QD Take 7.5 [facility] ([facility]) 1-[address] 15 MG 17:11: mouth [facility] tablet nightly. l mirtazapine 2021-09 Yes 7.5mg QD Take 7.5 [facility] ([facility]) 1-[address] 15 MG 17:11: mouth [facility] tablet nightly. l mirtazapine 2021-09 Yes 7.5mg QD Take 7.5 [facility] ([facility]) 1-[address] 15 MG 17:11: mouth [facility] tablet nightly. l mirtazapine 2021-09 Yes 7.5mg QD Take 7.5 [facility] ([facility]) 1-[address] 15 MG 17:11: mouth [facility] tablet nightly. l mirtazapine 2021-09 Yes 7.5mg QD Take 7.5 [facility] ([facility]) 1-[address] 15 MG 17:11: mouth [facility] tablet nightly. l mirtazapine 2021-09 Yes 7.5mg QD Take 7.5 [facility] ([facility]) 1-[address] 15 MG 17:11: mouth [facility] tablet nightly. l mirtazapine 2021-09 Yes 7.5mg QD Take 7.5 [facility] ([facility]) 1-[address] 15 MG 17:11: mouth [facility] tablet nightly. l mirtazapine 2021-09 Yes 7.5mg QD Take 7.5 [facility] ([facility]) 1-[address] 15 MG 17:11: mouth [facility] tablet 01 nightly. l mirtazapine 2021-09 Yes 7.5mg QD Take 7.5 [facility] ([facility]) 1-[address] 15 MG 17:11: mouth [facility] tablet nightly. l mirtazapine 2021-09 Yes 7.5mg QD Take 7.5 [facility] ([facility]) 1-[address] 15 MG 17:11: mouth [facility] tablet nightly. l mirtazapine 2021-09 Yes 7.5mg QD Take 7.5 [facility] ([facility]) 1-[address] 15 MG 17:11: mouth [facility] tablet nightly. l mirtazapine 2021-09 Yes 7.5mg QD Take 7.5 [facility] ([facility]) 1-[address] 15 MG 17:11: mouth [facility] tablet nightly. l mirtazapine 2021-09 Yes 7.5mg QD Take 7.5 [facility] ([facility]) 1-[address] 15 MG 17:11: mouth [facility] tablet nightly. l mirtazapine 2021-09 Yes 7.5mg QD Take 7.5 [facility] ([facility]) 1-[address] 15 MG 17:11: mouth [facility] tablet nightly. l mirtazapine 2021-09 Yes 7.5mg QD Take 7.5 [facility] ([facility]) 1-[address] 15 MG 17:11: mouth [facility] tablet nightly. l mirtazapine 2021-09 Yes 7.5mg QD Take 7.5 [facility] ([facility]) 1-[address] 15 MG 17:11: mouth [facility] tablet nightly. l FLUoxetine 2021-09 No 40mg QD Take 1 [facility] (PROzac) 40 10-[address] [facility] capsule 17:11: 00:00 (40 mg [facility] 01 :00 total) by l mouth daily. candesartan 2021-09 No 16mg QD Take 1 [facility] ([facility]) 10-28- tablet (16 st 16 MG 17:11: 00:00 mg total) [facility] tablet 01 :00 by mouth l daily. FLUoxetine 2021-09- No 40mg QD Take 1 [facility] (PROzac) 40 -28 08- capsule st [facility] capsule 17:11: 00:00 (40 mg [facility] 01 :00 total) by l mouth daily. candesartan 2021-09- No 16mg QD Take 1 [facility] ([facility]) 30 -29 tablet (16 st 16 MG 17:11: 00:00 mg total) [facility] tablet 01 :00 by mouth l daily. FLUoxetine 2021-09- No 40mg QD Take 1 [facility] (PROzac) 40 10-28-[address] [facility] capsule 17:11: 00:00 (40 mg [facility] 01 :00 total) by l mouth daily. candesartan 2021-09- No 16mg QD Take 1 [facility] ([facility]) 10-28-29 tablet (16 st 16 MG 17:11: 00:00 mg total) [facility] tablet 01 :00 by mouth l daily. FLUoxetine 2021-09- No 40mg QD Take 1 [facility] (PROzac) 40 10-28- capsule st [facility] capsule 17:11: 00:00 (40 mg [facility] 01 :00 total) by l mouth daily. candesartan 2021-09- No 16mg QD Take 1 [facility] ([facility]) 10-28- tablet (16 st 16 MG 17:11: 00:00 mg total) Hospit [facility] tablet 01 :00 by mouth l daily. FLUoxetine 2021-09 No 40mg QD Take 1 [facility] (PROzac) 40 10-28-[address] [facility] capsule 17:11: 00:00 (40 mg [facility] 01 :00 total) by l mouth daily. candesartan 2021-09- No 16mg QD Take 1 [facility] ([facility]) 10-28-29 tablet (16 st 16 MG 17:11: 00:00 mg total) Hospit [facility] tablet 01 :00 by mouth l daily. FLUoxetine 2021-09- No 40mg QD Take 1 [facility] (PROzac) 40 -30 -[address] [facility] capsule 17:11: 00:00 (40 mg [facility] 01 :00 total) by l mouth daily. candesartan 2021-09- No 16mg QD Take 1 [facility] (ATACAND) 30 -29 tablet (16 st 16 MG 17:11: 00:00 mg total) [facility] a tablet 01 :00 by mouth l daily. FLUoxetine 2021-09- No 40mg QD Take 1 [facility] (PROzac) 40 -28 08-[address] MG capsule 17:11: 00:00 (40 mg [facility] 01 :00 total) by l mouth daily. candesartan 2021-09- No 16mg QD Take 1 [facility] (ATACAND) 10-28-29 tablet (16 st 16 MG 17:11: 00:00 mg total) [facility] a tablet 01 :00 by mouth l daily. FLUoxetine 2021-09- No 40mg QD Take 1 [facility] (PROzac) 40 -28 08-[address] MG capsule 17:11: 00:00 (40 mg [facility] 01 :00 total) by l mouth daily. candesartan 2021-09 No 16mg QD Take 1 [facility] (ATACAND) 10-28- tablet (16 st 16 MG 17:11: 00:00 mg total) [facility] tablet 01 :00 by mouth l daily. FLUoxetine 2021-09 No 40mg QD Take 1 [facility] (PROzac) 40 10-28- capsule st MG capsule 17:11: 00:00 (40 mg [facility] 01 :00 total) by l mouth daily. candesartan 2021-09 No 16mg QD Take 1 [facility] (ATACAND) 10-28- tablet (16 st 16 MG 17:11: 00:00 mg total) [facility] a tablet 01 :00 by mouth l daily. FLUoxetine 2021-09- No 40mg QD Take 1 [facility] (PROzac) 40 10-28-[address] [facility] capsule 17:11: 00:00 (40 mg [facility] 01 :00 total) by l mouth daily. candesartan 2021-09- No 16mg QD Take 1 [facility] (ATACAND) 10-28-29 tablet (16 st 16 MG 17:11: 00:00 mg total) [facility] tablet 01 :00 by mouth l daily. FLUoxetine 2021-09- No 40mg QD Take 1 [facility] (PROzac) 40 10-28-[address] MG capsule 17:11: 00:00 (40 mg [facility] 01 :00 total) by l mouth daily. candesartan 2021-09- No 16mg QD Take 1 [facility] (ATACAND) 30 -29 tablet (16 st 16 MG 17:11: 00:00 mg total) [facility] tablet 01 :00 by mouth l daily. FLUoxetine 2021-09- No 40mg QD Take 1 [facility] (PROzac) 40 10-28-[address] MG capsule 17:11: 00:00 (40 mg [facility] 01 :00 total) by l mouth daily. candesartan 2021-09- No 16mg QD Take 1 [facility] (ATACAND) 10-28 tablet (16 st 16 MG 17:11: 00:00 mg total) [facility] tablet 01 :00 by mouth l daily. FLUoxetine 2021-09 No 40mg QD Take 1 [facility] (PROzac) 40 10-28- capsule st MG capsule 17:11: 00:00 (40 mg [facility] 01 :00 total) by l mouth daily. candesartan 2021-09 No 16mg QD Take 1 [facility] (ATACAND) 10-28 tablet (16 st 16 MG 17:11: 00:00 mg total) [facility] tablet 01 :00 by mouth l daily. FLUoxetine 2021-09 No 40mg QD Take 1 [facility] (PROzac) 40 10-28-[address] MG capsule 17:11: 00:00 (40 mg [facility] 01 :00 total) by l mouth daily. candesartan 2021-09- No 16mg QD Take 1 [facility] (ATACAND) 10-28-29 tablet (16 st 16 MG 17:11: 00:00 mg total) Hospit [facility] tablet 01 :00 by mouth l daily. FLUoxetine 2021-09- No 40mg QD Take 1 [facility] (PROzac) 40 30 -[address] [facility] capsule 17:11: 00:00 (40 mg [facility] 01 :00 total) by l mouth daily. candesartan 2021-09- No 16mg QD Take 1 [facility] (ATACAND) 10-28- tablet (16 st 16 MG 17:11: 00:00 mg total) [facility] tablet 01 :00 by mouth l daily. FLUoxetine 2021-09 No 40mg QD Take 1 [facility] (PROzac) 40 10-[address] [facility] capsule 17:11: 00:00 (40 mg [facility] 01 :00 total) by l mouth daily. candesartan 2021-09 No 16mg QD Take 1 [facility] (ATACAND) 10-28- tablet (16 st 16 MG 17:11: 00:00 mg total) [facility] tablet 01 :00 by mouth l daily. FLUoxetine 2021-09 No 40mg QD Take 1 [facility] (PROzac) 40 10-[address] [facility] capsule 17:11: 00:00 (40 mg [facility] 01 :00 total) by l mouth daily. candesartan 2021-09 No 16mg QD Take 1 [facility] (ATACAND) 10-28 tablet (16 st 16 MG 17:11: 00:00 mg total) [facility] tablet 01 :00 by mouth l daily. ranolazine 2021-09 No 1000mg Q.5D Take 1,000 [facility] (RANEXA) 10-27 11-[address] 500 MG 12 17:12: 00:00 mouth 2 [facility] hr ER 04 :00 (two) l tablet times a day. varenicline 2021-09 No 1mg QD Take 1 mg [facility] (CHANTIX) 1 10-[address] mg tablet 17:12: 00:00 daily. [facility] 04 :00 Take with l full glass of water. ranolazine 2021-09 No 1000mg Q.5D Take 1,000 [facility] (RANEXA) - 11-[address] 500 MG 12 17:12: 00:00 mouth 2 [facility] hr ER 04 :00 (two) l tablet times a day. varenicline 2021-09- No 1mg QD Take 1 mg [facility] (CHANTIX) 1 10-[address] mg tablet 17:12: 00:00 daily. [facility] 04 :00 Take with l full glass of water. ranolazine 2021-09 No 1000mg Q.5D Take 1,000 [facility] (RANEXA) 1-29 11-[address] 500 MG 12 17:12: 00:00 mouth 2 [facility] hr ER 04 :00 (two) l tablet times a day. varenicline 2021-09 No 1mg QD Take 1 mg [facility] (CHANTIX) 1 - 11-[address] mg tablet 17:12: 00:00 daily. [facility] 04 :00 Take with l full glass of water. ranolazine 2021-09 No 1000mg Q.5D Take 1,000 [facility] (RANEXA) - 11-[address] 500 MG 12 17:12: 00:00 mouth 2 [facility] hr ER 04 :00 (two) l tablet times a day. varenicline 2021-09 No 1mg QD Take 1 mg [facility] (CHANTIX) 1 10-[address] mg tablet 17:12: 00:00 daily. [facility] 04 :00 Take with l full glass of water. ranolazine 2021-09 No 1000mg Q.5D Take 1,000 [facility] (RANEXA) - 11-[address] 500 MG 12 17:12: 00:00 mouth 2 [facility] hr ER 04 :00 (two) l tablet times a day. varenicline 2021-09 No 1mg QD Take 1 mg [facility] (CHANTIX) 1 - 11-[address] mg tablet 17:12: 00:00 daily. [facility] 04 :00 Take with l full glass of water. ranolazine 2021-09 No 1000mg Q.5D Take 1,000 [facility] (RANEXA) - 11-[address] 500 MG 12 17:12: 00:00 mouth 2 [facility] hr ER 04 :00 (two) l tablet times a day. varenicline 2021-09 No 1mg QD Take 1 mg [facility] (CHANTIX) 1 - 11-[address] mg tablet 17:12: 00:00 daily. [facility] 04 :00 Take with l full glass of water. ranolazine 2021-09 No 1000mg Q.5D Take 1,000 [facility] (RANEXA) 1-29 11-[address] 500 MG 12 17:12: 00:00 mouth 2 [facility] hr ER 04 :00 (two) l tablet times a day. varenicline 2021-09 No 1mg QD Take 1 mg [facility] (CHANTIX) 1 - 11-[address] mg tablet 17:12: 00:00 daily. [facility] 04 :00 Take with l full glass of water. ranolazine 2021-09 No 1000mg Q.5D Take 1,000 [facility] (RANEXA) - 11-[address] 500 MG 12 17:12: 00:00 mouth 2 [facility] hr ER 04 :00 (two) l tablet times a day. varenicline 2021-09 No 1mg QD Take 1 mg [facility] (CHANTIX) 1 10-[address] mg tablet 17:12: 00:00 daily. [facility] 04 :00 Take with l full glass of water. ranolazine 2021-09 No 1000mg Q.5D Take 1,000 [facility] (RANEXA) - 11-[address] 500 MG 12 17:12: 00:00 mouth 2 [facility] hr ER 04 :00 (two) l tablet times a day. varenicline 2021-09 No 1mg QD Take 1 mg [facility] (CHANTIX) 1 - 11-[address] mg tablet 17:12: 00:00 daily. [facility] 04 :00 Take with l full glass of water. ranolazine 2021-09 No 1000mg Q.5D Take 1,000 [facility] (RANEXA) - 11-[address] 500 MG 12 17:12: 00:00 mouth 2 [facility] hr ER 04 :00 (two) l tablet times a day. varenicline 2021-09 No 1mg QD Take 1 mg [facility] (CHANTIX) 1 - 11-[address] mg tablet 17:12: 00:00 daily. [facility] 04 :00 Take with l full glass of water. ranolazine 2021-09 No 1000mg Q.5D Take 1,000 [facility] (RANEXA) 1-29 11-[address] 500 MG 12 17:12: 00:00 mouth 2 [facility] hr ER 04 :00 (two) l tablet times a day. varenicline 2021-09 No 1mg QD Take 1 mg [facility] (CHANTIX) 1 - 11-[address] mg tablet 17:12: 00:00 daily. [facility] 04 :00 Take with l full glass of water. ranolazine 2021-09 No 1000mg Q.5D Take 1,000 [facility] (RANEXA) - 11-[address] 500 MG 12 17:12: 00:00 mouth 2 [facility] hr ER 04 :00 (two) l tablet times a day. varenicline 2021-09 No 1mg QD Take 1 mg [facility] (CHANTIX) 1 10-[address] mg tablet 17:12: 00:00 daily. [facility] 04 :00 Take with l full glass of water. ranolazine 2021-09 No 1000mg Q.5D Take 1,000 [facility] (RANEXA) - 11-[address] 500 MG 12 17:12: 00:00 mouth 2 [facility] hr ER 04 :00 (two) l tablet times a day. varenicline 2021-09 No 1mg QD Take 1 mg [facility] (CHANTIX) 1 - 11-[address] mg tablet 17:12: 00:00 daily. [facility] 04 :00 Take with l full glass of water. ranolazine 2021-09 No 1000mg Q.5D Take 1,000 [facility] (RANEXA) - 11-[address] 500 MG 12 17:12: 00:00 mouth 2 [facility] hr ER 04 :00 (two) l tablet times a day. varenicline 2021-09 No 1mg QD Take 1 mg [facility] (CHANTIX) 1 - 11- by mouth st mg tablet 17:12: 00:00 daily. [facility] 04 :00 Take with l full glass of water. ranolazine 2021-09 No 1000mg Q.5D Take 1,000 [facility] (RANEXA) - 11-[address] 500 MG 12 17:12: 00:00 mouth 2 [facility] hr ER 04 :00 (two) l tablet times a day. varenicline 2021-09 No 1mg QD Take 1 mg [facility] (CHANTIX) 10-[address] mg tablet 17:12: 00:00 daily. [facility] 04 :00 Take with l full glass of water. ranolazine 2021-09 No 1000mg Q.5D Take 1,000 [facility] (RANEXA) 10-27 11-[address] 500 MG 12 17:12: 00:00 mouth 2 [facility] hr ER 04 :00 (two) l tablet times a day. varenicline 2021-09 No 1mg QD Take 1 mg [facility] (CHANTIX) 10-[address] mg tablet 17:12: 00:00 daily. [facility] 04 :00 Take with l full glass of water. varenicline 2021-09 No 1mg QD Take 1 mg [facility] (CHANTIX) 10-[address] mg tablet 17:12: 00:00 daily. [facility] 04 :00 Take with l full glass of water. ranolazine 2021-09 No 1000mg Q.5D Take 1,000 [facility] (RANEXA) 10-27 11-[address] 500 MG 12 17:12: 00:00 mouth 2 [facility] hr ER 04 :00 (two) l tablet times a day. traZODone 2021-09 Yes 75mg QD Take 75 mg [facility] (DESYREL) 10-[address] 50 MG 17:12: nightly. [facility] tablet 03 l cycloSPORIN 2021-09 Yes 1[drp] Q.5D Administer [facility] 10-[address] (RESTASIS) 17:12: both eyes [facility] 0.05 % 03 2 (two) l ophthalmic times a emulsion day. aspirin 2021-09 Yes 81mg QD Take 81 mg [facility] (ECOTRIN) 1-[address] 81 MG 17:12: daily. [facility] enteric 03 l coated tablet sertraline 2021-09 Yes 100mg QD Take 100 [facility] (ZOLOFT) 1-[address] 100 MG 17:12: mouth [facility] tablet 03 daily. l pantoprazol 2021-09 Yes 40mg QD Take 40 mg [facility] -[address] (PROTONIX) 17:12: daily. [facility] 40 MG EC 03 l tablet ARIPiprazol 2021-09 Yes 10mg QD Take 10 mg [facility] (ABILIFY) -[address] 10 MG 17:12: nightly. [facility]osp[facility] disintegrat 03 l ing tablet atorvastati 2021-09 Yes 20mg QD Take 20 mg [facility] (LIPITOR) 10-[address] 20 mg 17:12: nightly. [facility]osp[facility] tablet 03 Default OP l ins fluticasone 2021-09 Yes 2{puff} Q.5D Inhale 2 [facility] propion-sylvia 1-[address] meteroL 17:12: (two) [facility]osp[facility] (ADVAIR/ 03 times a l WIXELA day. INHUB) 250-50 mcg/dose DISKUS pregabalin 2021-09 Yes 100mg Q.5D Take 100 [facility] (LYRICA) 1-[address] 100 MG 17:12: mouth 2 [facility] capsule 03 (two) l times a day. cyanocobala 2021-[address] [facility] min, -29 5,[address] vitamin 17:12: under the [facility] B-12, 5,000 03 tongue l mcg tablet, daily. sublingual cholecalcif 2021-09 Yes 5000U QD Take 5,000 [facility] aminah, 1-[address] vitamin D3, 17:12: mouth [facility] 5,000 unit 03 daily. l capsule ascorbic 2021-09 Yes 1000mg Q.5D Take 1,000 [facility] acid, 1-[address] vitamin C, 17:12: mouth 2 [facility] (VITAMIN C) 03 (two) l 1000 MG times a tablet day. multivitami 2021-09 Yes 1{capsu Q.5D Take 1 M [facility] n 1-29 le} capsule by st (THERAGRAN) 17:12: mouth 2 [facility] tablet 03 (two) l times a day. levalbutero 2021-09 Yes 1{puff} Q4H Inhale 1-2 [facility] (XOPENEX 10-[address] HFA) 45 17:12: every 4 [facility]osp[facility] mcg/actuati 03 (four) l on inhaler hours as needed for wheezing or shortness of breath. levalbutero 2021-09 Yes 1{ampul Q4H Take 1 M [facility] l (XOPENEX) 10-27 e} ampule by st 1.25 mg/3 17:12: nebulizati [facility] mL 03 on every 4 l nebulizer (four) solution hours as needed for wheezing or shortness of breath. traZODone 2021-09 Yes 75mg QD Take 75 mg [facility] (DESYREL) 10-[address] 50 MG 17:12: nightly. [facility]osp[facility] tablet 03 l cycloSPORIN 2021-09 Yes 1[drp] Q.5D Administer [facility] 10-[address] (RESTASIS) 17:12: both eyes [facility] 0.05 % 03 2 (two) l ophthalmic times a emulsion day. aspirin 2021-09 Yes 81mg QD Take 81 mg [facility] (ECOTRIN) 10-[address] 81 MG 17:12: daily. [facility] enteric 03 l coated tablet sertraline 2021-09 Yes 100mg QD Take 100 [facility] (ZOLOFT) -[address] 100 MG 17:12: mouth [facility] tablet 03 daily. l pantoprazol 2021-09 Yes 40mg QD Take 40 mg [facility] 10-[address] (PROTONIX) 17:12: daily. [facility] 40 MG EC 03 l tablet ARIPiprazol 2021-09 Yes 10mg QD Take 10 mg [facility] (ABILIFY) 10-[address] 10 MG 17:12: nightly. [facility] disintegrat 03 l ing tablet atorvastati 2021-09 Yes 20mg QD Take 20 mg [facility] (LIPITOR) 10-[address] 20 mg 17:12: nightly. [facility]osp[facility] tablet 03 Default OP l ins fluticasone 2021-09 Yes 2{puff} Q.5D Inhale 2 [facility] propion-sylvia 1-[address] meteroL 17:12: (two) [facility]osp[facility] (ADVAIR/ 03 times a l [place] day. INHUB) 250-50 mcg/dose DISKUS pregabalin 2021-09 Yes 100mg Q.5D Take 100 [facility] (LYRICA) 1-[address] 100 MG 17:12: mouth 2 [facility] capsule 03 (two) l times a day. cyanocobala 2021-[address] [facility] min, 1-29 5,[address] vitamin 17:12: under the [facility] B-12, 5,000 03 tongue l mcg tablet, daily. sublingual cholecalcif 2021-09 Yes 5000U QD Take 5,000 [facility], 1-29 Units by vitamin D3, 17:12: mouth [facility] 5,000 unit 03 daily. l capsule ascorbic 2021-09 Yes 1000mg Q.5D Take 1,000 [facility] acid, 1-29 mg by vitamin C, 17:12: mouth 2 [facility] (VITAMIN C) 03 (two) l 1000 MG times a tablet day. multivitami 2021-09 Yes 1{capsu Q.5D Take 1 M [facility]i n 1-29 le} capsule by (THERAGRAN) 17:12: mouth 2 [facility] tablet 03 (two) l times a day. levalbutero 2021-09 Yes 1{puff} Q4H Inhale 1-2 [facility] (XOPENEX 1-[address] HFA) 45 17:12: every 4 [facility] mcg/actuati 03 (four) l on inhaler hours as needed for wheezing or shortness of breath. levalbutero 2021-09 Yes 1{ampul Q4H Take 1 M [facility] l (XOPENEX) 1-29 e} ampule by st 1.25 mg/3 17:12: nebulizati [facility] mL 03 on every 4 l nebulizer (four) solution hours as needed for wheezing or shortness of breath. traZODone 2021-09 Yes 75mg QD Take 75 mg [facility] (DESYREL) 1-[address] 50 MG 17:12: nightly. [facility]osp[facility] tablet 03 l cycloSPORIN 2021-09 Yes 1[drp] Q.5D Administer [facility] 10-[address] (RESTASIS) 17:12: both eyes [facility] 0.05 % 03 2 (two) l ophthalmic times a emulsion day. aspirin 2021-09 Yes 81mg QD Take 81 mg [facility] (ECOTRIN) [address] 81 MG 17:12: daily. [facility] enteric 03 l coated tablet sertraline 2021-09 Yes 100mg QD Take 100 [facility] (ZOLOFT) 1-[address] 100 MG 17:12: mouth [facility] tablet 03 daily. l pantoprazol 2021-09 Yes 40mg QD Take 40 mg [facility] 10-[address] (PROTONIX) 17:12: daily. [facility] 40 MG EC 03 l tablet ARIPiprazol 2021-09 Yes 10mg QD Take 10 mg [facility] (ABILIFY) 10-[address] 10 MG 17:12: nightly. [facility] disintegrat 03 l ing tablet atorvastati 2021-09 Yes 20mg QD Take 20 mg [facility] (LIPITOR) 10-[address] 20 mg 17:12: nightly. [facility] tablet 03 Default OP l ins fluticasone 2021-09 Yes 2{puff} Q.5D Inhale 2 [facility] propion-sylvia [address] meteroL 17:12: (two) [facility]osp[facility] (ADVAIR/ 03 times a l [place] day. INHUB) 250-50 mcg/dose DISKUS pregabalin 2021-09 Yes 100mg Q.5D Take 100 [facility] (LYRICA) 1-[address] 100 MG 17:12: mouth 2 [facility] capsule 03 (two) l times a day. cyanocobala 2021-[address] [facility] min, -29 5,[address] vitamin 17:12: under the [facility] B-12, 5,000 03 tongue l mcg tablet, daily. sublingual cholecalcif 2021-09 Yes 5000U QD Take 5,000 [facility], -[address] vitamin D3, 17:12: mouth [facility] 5,000 unit 03 daily. l capsule ascorbic 2021-09 Yes 1000mg Q.5D Take 1,000 [facility] acid, 1-[address] vitamin C, 17:12: mouth 2 [facility] (VITAMIN C) 03 (two) l 1000 MG times a tablet day. multivitami 2021-09 Yes 1{capsu Q.5D Take 1 M [facility] n 1-29 le} capsule by st (THERAGRAN) 17:12: mouth 2 [facility] tablet 03 (two) l times a day. levalbutero 2021-09 Yes 1{puff} Q4H Inhale 1-2 [facility] (XOPENEX 1-[address] HFA) 45 17:12: every 4 [facility] mcg/actuati 03 (four) l on inhaler hours as needed for wheezing or shortness of breath. levalbutero 2021-09 Yes 1{ampul Q4H Take 1 M [facility]i l (XOPENEX) 29 e} ampule by st 1.25 mg/3 17:12: nebulizati [facility] mL 03 on every 4 l nebulizer (four) solution hours as needed for wheezing or shortness of breath. traZODone 2021-09 Yes 75mg QD Take 75 mg [facility] (DESYREL) 10-[address] 50 MG 17:12: nightly. [facility] tablet 03 l cycloSPORIN 2021-09 Yes 1[drp] Q.5D Administer [facility] 10-[address] (RESTASIS) 17:12: both eyes [facility] 0.05 % 03 2 (two) l ophthalmic times a emulsion day. aspirin 2021-09 Yes 81mg QD Take 81 mg [facility] (ECOTRIN) 10-[address] 81 MG 17:12: daily. [facility] enteric 03 l coated tablet sertraline 2021-09 Yes 100mg QD Take 100 [facility] (ZOLOFT) 1-[address] 100 MG 17:12: mouth [facility] tablet 03 daily. l pantoprazol 2021-09 Yes 40mg QD Take 40 mg [facility] -[address] (PROTONIX) 17:12: daily. [facility] 40 MG EC 03 l tablet ARIPiprazol 2021-09 Yes 10mg QD Take 10 mg [facility] (ABILIFY) 10-[address] 10 MG 17:12: nightly. [facility] disintegrat 03 l ing tablet atorvastati 2021-09 Yes 20mg QD Take 20 mg [facility] (LIPITOR) 1-[address] 20 mg 17:12: nightly. [facility] tablet 03 Default OP l ins fluticasone 2021-09 Yes 2{puff} Q.5D Inhale 2 [facility] propion-sylvia 1-[address] meteroL 17:12: (two) [facility]osp[facility] (ADVAIR/ 03 times a l [place] day. INHUB) 250-50 mcg/dose DISKUS pregabalin 2021-09 Yes 100mg Q.5D Take 100 [facility] (LYRICA) 1-[address] 100 MG 17:12: mouth 2 [facility] capsule 03 (two) l times a day. cyanocobala 2021-[address] [facility] min, 1-29 5,[address] vitamin 17:12: under the [facility] B-12, 5,000 03 tongue l mcg tablet, daily. sublingual cholecalcif 2021-09 Yes 5000U QD Take 5,000 [facility], 1-29 Units by vitamin D3, 17:12: mouth [facility] 5,000 unit 03 daily. l capsule ascorbic 2021-09 Yes 1000mg Q.5D Take 1,000 [facility] acid, 1-29 mg by vitamin C, 17:12: mouth 2 [facility] (VITAMIN C) 03 (two) l 1000 MG times a tablet day. multivitami 2021-09 Yes 1{capsu Q.5D Take 1 M [facility] n 1-29 le} capsule by (THERAGRAN) 17:12: mouth 2 [facility] tablet 03 (two) l times a day. levalbutero 2021-09 Yes 1{puff} Q4H Inhale 1-2 [facility] (XOPENEX 1-[address] HFA) 45 17:12: every 4 [facility] mcg/actuati 03 (four) l on inhaler hours as needed for wheezing or shortness of breath. levalbutero 2021-09 Yes 1{ampul Q4H Take 1 [facility] l (XOPENEX) 1-29 e} ampule by 1.25 mg/3 17:12: nebulizati [facility] mL 03 on every 4 l nebulizer (four) solution hours as needed for wheezing or shortness of breath. traZODone 2021-09 Yes 75mg QD Take 75 mg [facility] (DESYREL) [address] 50 MG 17:12: nightly. [facility]osp[facility] tablet 03 l cycloSPORIN 2021-09 Yes 1[drp] Q.5D Administer [facility] 10-[address] (RESTASIS) 17:12: both eyes [facility] 0.05 % 03 2 (two) l ophthalmic times a emulsion day. aspirin 2021-09 Yes 81mg QD Take 81 mg [facility] (ECOTRIN) 10-[address] 81 MG 17:12: daily. [facility] enteric 03 l coated tablet sertraline 2021-09 Yes 100mg QD Take 100 [facility] (ZOLOFT) 1-[address] 100 MG 17:12: mouth [facility] tablet 03 daily. l pantoprazol 2021-09 Yes 40mg QD Take 40 mg [facility] 10-[address] (PROTONIX) 17:12: daily. [facility] 40 MG EC 03 l tablet ARIPiprazol 2021-09 Yes 10mg QD Take 10 mg [facility] (ABILIFY) 10-[address] 10 MG 17:12: nightly. [facility] disintegrat 03 l ing tablet atorvastati 2021-09 Yes 20mg QD Take 20 mg [facility] (LIPITOR) 10-[address] 20 mg 17:12: nightly. [facility] tablet 03 Default OP l ins fluticasone 2021-09 Yes 2{puff} Q.5D Inhale 2 [facility] propion-sylvia -[address] meteroL 17:12: (two) [facility]osp[facility] (ADVAIR/ 03 times a l [place] day. INHUB) 250-50 mcg/dose DISKUS pregabalin 2021-09 Yes 100mg Q.5D Take 100 [facility] (LYRICA) 1-[address] 100 MG 17:12: mouth 2 [facility] capsule 03 (two) l times a day. cyanocobala 2021-[address] [facility] min, -29 5,[address] vitamin 17:12: under the [facility] B-12, 5,000 03 tongue l mcg tablet, daily. sublingual cholecalcif 2021-09 Yes 5000U QD Take 5,000 [facility], 1-29 Units by vitamin D3, 17:12: mouth [facility] 5,000 unit 03 daily. l capsule ascorbic 2021-09 Yes 1000mg Q.5D Take 1,000 [facility] acid, 1-29 mg by vitamin C, 17:12: mouth 2 [facility] (VITAMIN C) 03 (two) l 1000 MG times a tablet day. multivitami 2021-09 Yes 1{capsu Q.5D Take 1 M [facility] n 1-29 le} capsule by (THERAGRAN) 17:12: mouth 2 [facility] tablet 03 (two) l times a day. levalbutero 2021-09 Yes 1{puff} Q4H Inhale 1-2 [facility] (XOPENEX 1-[address] HFA) 45 17:12: every 4 [facility]osp[facility] mcg/actuati 03 (four) l on inhaler hours as needed for wheezing or shortness of breath. levalbutero 2021-09 Yes 1{ampul Q4H Take 1 M [facility] l (XOPENEX) 1-29 e} ampule by st 1.25 mg/3 17:12: nebulizati [facility] mL 03 on every 4 l nebulizer (four) solution hours as needed for wheezing or shortness of breath. traZODone 2021-09 Yes 75mg QD Take 75 mg [facility] (DESYREL) 10-[address] 50 MG 17:12: nightly. [facility]osp[facility] tablet 03 l cycloSPORIN 2021-09 Yes 1[drp] Q.5D Administer [facility] -[address] (RESTASIS) 17:12: both eyes [facility] 0.05 % 03 2 (two) l ophthalmic times a emulsion day. aspirin 2021-09 Yes 81mg QD Take 81 mg [facility] (ECOTRIN) 10-[address] 81 MG 17:12: daily. [facility] enteric 03 l coated tablet sertraline 2021-09 Yes 100mg QD Take 100 [facility] (ZOLOFT) 1-[address] 100 MG 17:12: mouth [facility] tablet 03 daily. l pantoprazol 2021-09 Yes 40mg QD Take 40 mg [facility] 1-[address] (PROTONIX) 17:12: daily. [facility] 40 MG EC 03 l tablet ARIPiprazol 2021-09 Yes 10mg QD Take 10 mg [facility] (ABILIFY) -[address] 10 MG 17:12: nightly. [facility] disintegrat 03 l ing tablet atorvastati 2021-09 Yes 20mg QD Take 20 mg [facility] (LIPITOR) -[address] 20 mg 17:12: nightly. [facility] tablet 03 Default OP l ins fluticasone 2021-09 Yes 2{puff} Q.5D Inhale 2 [facility] propion-sylvia 1-[address] meteroL 17:12: (two) [facility]osp[facility] (ADVAIR/ 03 times a l [place] day. INHUB) 250-50 mcg/dose DISKUS pregabalin 2021-09 Yes 100mg Q.5D Take 100 [facility] (LYRICA) 1-[address] 100 MG 17:12: mouth 2 [facility] capsule 03 (two) l times a day. cyanocobala 2021-[address] [facility] min, 1-29 5,[address] vitamin 17:12: under the [facility] B-12, 5,000 03 tongue l mcg tablet, daily. sublingual cholecalcif 2021-09 Yes 5000U QD Take 5,000 [facility] amin[facility], 1-29 Units by vitamin D3, 17:12: mouth [facility] 5,000 unit 03 daily. l capsule ascorbic 2021-09 Yes 1000mg Q.5D Take 1,000 [facility] acid, 1-29 mg by vitamin C, 17:12: mouth 2 [facility] (VITAMIN C) 03 (two) l 1000 MG times a tablet day. multivitami 2021-09 Yes 1{capsu Q.5D Take 1 M [facility]i n 1-29 le} capsule by (THERAGRAN) 17:12: mouth 2 [facility] tablet 03 (two) l times a day. levalbutero 2021-09 Yes 1{puff} Q4H Inhale 1-2 [facility] (XOPENEX 1-[address] HFA) 45 17:12: every 4 [facility]osp[facility] mcg/actuati 03 (four) l on inhaler hours as needed for wheezing or shortness of breath. levalbutero 2021-09 Yes 1{ampul Q4H Take 1 [facility] l (XOPENEX) 10-27 e} ampule by st 1.25 mg/3 17:12: nebulizati [facility] mL 03 on every 4 l nebulizer (four) solution hours as needed for wheezing or shortness of breath. traZODone 2021-09 Yes 75mg QD Take 75 mg [facility] (DESYREL) 10-[address] 50 MG 17:12: nightly. [facility]osp[facility] tablet 03 l cycloSPORIN 2021-09 Yes 1[drp] Q.5D Administer [facility] 10-[address] (RESTASIS) 17:12: both eyes [facility] 0.05 % 03 2 (two) l ophthalmic times a emulsion day. aspirin 2021-09 Yes 81mg QD Take 81 mg [facility] (ECOTRIN) 10-[address] 81 MG 17:12: daily. [facility] enteric 03 l coated tablet sertraline 2021-09 Yes 100mg QD Take 100 [facility] (ZOLOFT) 1-[address] 100 MG 17:12: mouth [facility] tablet 03 daily. l pantoprazol 2021-09 Yes 40mg QD Take 40 mg [facility] 10-[address] (PROTONIX) 17:12: daily. [facility] 40 MG EC 03 l tablet ARIPiprazol 2021-09 Yes 10mg QD Take 10 mg [facility] (ABILIFY) 10-[address] 10 MG 17:12: nightly. [facility]osp[facility] disintegrat 03 l ing tablet atorvastati 2021-09 Yes 20mg QD Take 20 mg [facility] (LIPITOR) 10-[address] 20 mg 17:12: nightly. [facility] tablet 03 Default OP l ins fluticasone 2021-09 Yes 2{puff} Q.5D Inhale 2 [facility] propion-sylvia [address] meteroL 17:12: (two) Hospita (ADVAIR/ 03 times a l WIXELA day. INHUB) 250-50 mcg/dose DISKUS pregabalin 2021-09 Yes 100mg Q.5D Take 100 [facility] (LYRICA) 1-[address] 100 MG 17:12: mouth 2 [facility]osp[facility] capsule 03 (two) l times a day. cyanocobala 2021-[address] [facility] min, -29 5,[address] vitamin 17:12: under the Hospi ta B-12, 5,000 03 tongue l mcg tablet, daily. sublingual cholecalcif 2021-09 Yes 5000U QD Take 5,000 [facility] aminah, 1-[address] vitamin D3, 17:12: mouth Hospi ta 5,000 unit 03 daily. l capsule ascorbic 2021-09 Yes 1000mg Q.5D Take 1,000 M ethodi acid, 1-[address] vitamin C, 17:12: mouth 2 Hosp lew (VITAMIN C) 03 (two) l 1000 MG times a tablet day. multivitami 2021-09 Yes 1{capsu Q.5D Take 1 M ethodi n 1-29 le} capsule by (THERAGRAN) 17:12: mouth 2 Hos loki tablet 03 (two) l times a day. levalbutero 2021-09 Yes 1{puff} Q4H Inhale 1-2 [facility] l (XOPENEX 1-[address] HFA) 45 17:12: every 4 [facility]ospita mcg/actuati 03 (four) l on inhaler hours as needed for wheezing or shortness of breath. levalbutero 2021-09 Yes 1{ampul Q4H Take 1 M ethodi l (XOPENEX) -29 e} ampule by st 1.25 mg/3 17:12: nebulizati [facility] mL 03 on every 4 l nebulizer (four) solution hours as needed for wheezing or shortness of breath. traZODone 2021-09 Yes 75mg QD Take 75 mg [facility] (DESYREL) 10-[address] 50 MG 17:12: nightly. [facility]osp[facility] tablet 03 l cycloSPORIN 2021-09 Yes 1[drp] Q.5D Administer [facility]i E - [address] (RESTASIS) 17:12: both eyes [facility] 0.05 % 03 2 (two) l ophthalmic times a emulsion day. aspirin 2021-09 Yes 81mg QD Take 81 mg Meth david (ECOTRIN) 10-[address] 81 MG 17:12: daily. [facility] 03 l coated tablet sertraline 2021-09 Yes 100mg QD Take 100 [facility] (ZOLOFT) 1-[address] 100 MG 17:12: mouth [facility] tablet 03 daily. l pantoprazol 2021-09 Yes 40mg QD Take 40 mg [facility] -[address] (PROTONIX) 17:12: daily. [facility] 40 MG EC 03 l tablet ARIPiprazol 2021-09 Yes 10mg QD Take 10 mg [facility] (ABILIFY) 10-[address] 10 MG 17:12: nightly. [facility] disintegrat 03 l ing tablet atorvastati 2021-09 Yes 20mg QD Take 20 mg [facility] (LIPITOR) 10-[address] 20 mg 17:12: nightly. [facility] tablet 03 Default OP l ins fluticasone 2021-09 Yes 2{puff} Q.5D Inhale 2 [facility] propion-sylvia -[address] meteroL 17:12: (two) [facility]ospita (ADVAIR/ 03 times a l WIXELA day. INHUB) 250-50 mcg/dose DISKUS pregabalin 2021-09 Yes 100mg Q.5D Take 100 [facility] (LYRICA) 1-[address] 100 MG 17:12: mouth 2 [facility] capsule 03 (two) l times a day. cyanocobala 2021-[address] [facility] min, 1-29 5,[address] vitamin 17:12: under the [facility] B-12, 5,000 03 tongue l mcg tablet, daily. sublingual cholecalcif 2021-09 Yes 5000U QD Take 5,000 [facility] aminah, 1-[address] vitamin D3, 17:12: mouth [facility] 5,000 unit 03 daily. l capsule ascorbic 2021-09 Yes 1000mg Q.5D Take 1,000 M ethodi acid, 1-[address] vitamin C, 17:12: mouth 2 [facility] (VITAMIN C) 03 (two) l 1000 MG times a tablet day. multivitami 2021-09 Yes 1{capsu Q.5D Take 1 M ethodi n 1-29 le} capsule by st (THERAGRAN) 17:12: mouth 2 [facility] tablet 03 (two) l times a day. levalbutero 2021-09 Yes 1{puff} Q4H Inhale 1-2 [facility] (XOPENEX 1-[address] HFA) 45 17:12: every 4 [facility]osp[facility] mcg/actuati 03 (four) l on inhaler hours as needed for wheezing or shortness of breath. levalbutero 2021-09 Yes 1{ampul Q4H Take 1 M ethodi l (XOPENEX) 10-27 e} ampule by st 1.25 mg/3 17:12: nebulizati [facility] mL 03 on every 4 l nebulizer (four) solution hours as needed for wheezing or shortness of breath. traZODone 2021-09 Yes 75mg QD Take 75 mg [facility] (DESYREL) 10-[address] 50 MG 17:12: nightly. [facility] tablet 03 l cycloSPORIN 2021-09 Yes 1[drp] Q.5D Administer Methodi E 10-[address] (RESTASIS) 17:12: both eyes [facility] 0.05 % 03 2 (two) l ophthalmic times a emulsion day. aspirin 2021-09 Yes 81mg QD Take 81 mg Meth david (ECOTRIN) 10-[address] 81 MG 17:12: daily. [facility] 03 l coated tablet sertraline 2021-09 Yes 100mg QD Take 100 [facility] (ZOLOFT) 1-[address] 100 MG 17:12: mouth [facility] tablet 03 daily. l pantoprazol 2021-09 Yes 40mg QD Take 40 mg [facility] 10-[address] (PROTONIX) 17:12: daily. [facility] 40 MG EC 03 l tablet ARIPiprazol 2021-09 Yes 10mg QD Take 10 mg [facility] (ABILIFY) 10-[address] 10 MG 17:12: nightly. [facility] disintegrat 03 l ing tablet atorvastati 2021-09 Yes 20mg QD Take 20 mg [facility] (LIPITOR) 10-[address] 20 mg 17:12: nightly. [facility] tablet 03 Default OP l ins fluticasone 2021-09 Yes 2{puff} Q.5D Inhale 2 [facility] propion-sylvia 1-[address] meteroL 17:12: (two) [facility]osp[facility] (ADVAIR/ 03 times a l WIX[place] day. INHUB) 250-50 mcg/dose DISKUS pregabalin 2021-09 Yes 100mg Q.5D Take 100 [facility] (LYRICA) 1-[address] 100 MG 17:12: mouth 2 [facility] capsule 03 (two) l times a day. cyanocobala 2021-[address] [facility] min, -29 5,[address] vitamin 17:12: under the [facility] B-12, 5,000 03 tongue l mcg tablet, daily. sublingual cholecalcif 2021-09 Yes 5000U QD Take 5,000 [facility]i aminah, 1-29 Units by vitamin D3, 17:12: mouth [facility] 5,000 unit 03 daily. l capsule ascorbic 2021-09 Yes 1000mg Q.5D Take 1,000 M ethodi acid, 1-29 mg by vitamin C, 17:12: mouth 2 [facility] (VITAMIN C) 03 (two) l 1000 MG times a tablet day. multivitami 2021-09 Yes 1{capsu Q.5D Take 1 M ethodi n 1-29 le} capsule by (THERAGRAN) 17:12: mouth 2 [facility] tablet 03 (two) l times a day. levalbutero 2021-09 Yes 1{puff} Q4H Inhale 1-2 [facility] (XOPENEX 1-[address] HFA) 45 17:12: every 4 [facility] mcg/actuati 03 (four) l on inhaler hours as needed for wheezing or shortness of breath. levalbutero 2021-09 Yes 1{ampul Q4H Take 1 M ethodi l (XOPENEX) 1-29 e} ampule by st 1.25 mg/3 17:12: nebulizati [facility] mL 03 on every 4 l nebulizer (four) solution hours as needed for wheezing or shortness of breath. traZODone 2021-09 Yes 75mg QD Take 75 mg [facility] (DESYREL) 1-[address] 50 MG 17:12: nightly. [facility] tablet 03 l cycloSPORIN 2021-09 Yes 1[drp] Q.5D Administer Methodi E 1-[address] (RESTASIS) 17:12: both eyes [facility] 0.05 % 03 2 (two) l ophthalmic times a emulsion day. aspirin 2021-09 Yes 81mg QD Take 81 mg Meth david (ECOTRIN) 10-[address] 81 MG 17:12: daily. [facility] 03 l coated tablet sertraline 2021-09 Yes 100mg QD Take 100 [facility] (ZOLOFT) 1-[address] 100 MG 17:12: mouth [facility] tablet 03 daily. l pantoprazol 2021-09 Yes 40mg QD Take 40 mg [facility] 10-[address] (PROTONIX) 17:12: daily. [facility] 40 MG EC 03 l tablet ARIPiprazol 2021-09 Yes 10mg QD Take 10 mg [facility] (ABILIFY) 10-[address] 10 MG 17:12: nightly. [facility] disintegrat 03 l ing tablet atorvastati 2021-09 Yes 20mg QD Take 20 mg [facility] (LIPITOR) 10-[address] 20 mg 17:12: nightly. [facility] tablet 03 Default OP l ins fluticasone 2021-09 Yes 2{puff} Q.5D Inhale 2 [facility] propion-sylvia -[address] meteroL 17:12: (two) [facility]osp[facility] (ADVAIR/ 03 times a l WIX[place] day. INHUB) 250-50 mcg/dose DISKUS pregabalin 2021-09 Yes 100mg Q.5D Take 100 [facility] (LYRICA) 1-[address] 100 MG 17:12: mouth 2 [facility] capsule 03 (two) l times a day. cyanocobala 2021-[address] [facility] min, -29 5,[address] vitamin 17:12: under the Hospi [facility] B-12, 5,000 03 tongue l mcg tablet, daily. sublingual cholecalcif 2021-09 Yes 5000U QD Take 5,000 [facility] aminah, 1-[address] vitamin D3, 17:12: mouth [facility] 5,000 unit 03 daily. l capsule ascorbic 2021-09 Yes 1000mg Q.5D Take 1,000 M ethodi acid, 1-[address] vitamin C, 17:12: mouth 2 [facility] (VITAMIN C) 03 (two) l 1000 MG times a tablet day. multivitami 2021-09 Yes 1{capsu Q.5D Take 1 M ethodi n 10-27 le} capsule by st (THERAGRAN) 17:12: mouth 2 [facility] tablet 03 (two) l times a day. levalbutero 2021-09 Yes 1{puff} Q4H Inhale 1-2 [facility] (XOPENEX 10-[address] HFA) 45 17:12: every 4 [facility] mcg/actuati 03 (four) l on inhaler hours as needed for wheezing or shortness of breath. levalbutero 2021-09 Yes 1{ampul Q4H Take 1 M ethodi l (XOPENEX) 10-27 e} ampule by st 1.25 mg/3 17:12: nebulizati [facility] mL 03 on every 4 l nebulizer (four) solution hours as needed for wheezing or shortness of breath. traZODone 2021-09 Yes 75mg QD Take 75 mg [facility] (DESYREL) 10-[address] 50 MG 17:12: nightly. [facility] tablet 03 l cycloSPORIN 2021-09 Yes 1[drp] Q.5D Administer Methodi E 10-[address] (RESTASIS) 17:12: both eyes [facility] 0.05 % 03 2 (two) l ophthalmic times a emulsion day. aspirin 2021-09 Yes 81mg QD Take 81 mg Meth dav[facility] (ECOTRIN) 10-[address] 81 MG 17:12: daily. [facility] 03 l coated tablet sertraline 2021-09 Yes 100mg QD Take 100 [facility] (ZOLOFT) [address] 100 MG 17:12: mouth [facility] tablet 03 daily. l pantoprazol 2021-09 Yes 40mg QD Take 40 mg [facility] 10-[address] (PROTONIX) 17:12: daily. [facility] 40 MG EC 03 l tablet ARIPiprazol 2021-09 Yes 10mg QD Take 10 mg [facility] (ABILIFY) 10-[address] 10 MG 17:12: nightly. [facility] disintegrat 03 l ing tablet atorvastati 2022-1 Yes 20mg QD Take 20 mg [facility] (LIPITOR) 1-[address] 20 mg 17:12: nightly. [facility] tablet 03 Default OP l ins fluticasone 2021-09 Yes 2{puff} Q.5D Inhale 2 [facility] propion-sylvia 1-[address] meteroL 17:12: (two) [facility]osp[facility] (ADVAIR/ 03 times a l [place]IX[place] day. INHUB) 250-50 mcg/dose DISKUS pregabalin 2021-09 Yes 100mg Q.5D Take 100 [facility] (LYRICA) 1-[address] 100 MG 17:12: mouth 2 [facility] capsule 03 (two) l times a day. cyanocobala 2021-[address] [facility], 1-29 5,[address] vitamin 17:12: under the [facility] B-12, 5,000 03 tongue l mcg tablet, daily. sublingual cholecalcif 2021-09 Yes 5000U QD Take 5,000 [facility]i aminah, 1-29 Units by vitamin D3, 17:12: mouth [facility] 5,000 unit 03 daily. l capsule ascorbic 2021-09 Yes 1000mg Q.5D Take 1,000 M ethodi acid, 1-29 mg by vitamin C, 17:12: mouth 2 [facility] (VITAMIN C) 03 (two) l 1000 MG times a tablet day. multivitami 2021-09 Yes 1{capsu Q.5D Take 1 M ethodi n 1-29 le} capsule by st (THERAGRAN) 17:12: mouth 2 [facility] tablet 03 (two) l times a day. levalbutero 2021-09 Yes 1{puff} Q4H Inhale 1-2 [facility] (XOPENEX 1-[address] HFA) 45 17:12: every 4 [facility] mcg/actuati 03 (four) l on inhaler hours as needed for wheezing or shortness of breath. levalbutero 2021-09 Yes 1{ampul Q4H Take 1 M ethodi l (XOPENEX) 1-29 e} ampule by st 1.25 mg/3 17:12: nebulizati [facility] mL 03 on every 4 l nebulizer (four) solution hours as needed for wheezing or shortness of breath. traZODone 2021-09 Yes 75mg QD Take 75 mg [facility] (DESYREL) 10-[address] 50 MG 17:12: nightly. [facility] tablet 03 l cycloSPORIN 2021-09 Yes 1[drp] Q.5D Administer Methodi E 10-[address] (RESTASIS) 17:12: both eyes [facility] 0.05 % 03 2 (two) l ophthalmic times a emulsion day. aspirin 2021-09 Yes 81mg QD Take 81 mg Meth dav[facility] (ECOTRIN) 10-[address] 81 MG 17:12: daily. [facility] 03 l coated tablet sertraline 2021-09 Yes 100mg QD Take 100 [facility] (ZOLOFT) -[address] 100 MG 17:12: mouth [facility] tablet 03 daily. l pantoprazol 2021-09 Yes 40mg QD Take 40 mg [facility] 10-[address] (PROTONIX) 17:12: daily. [facility] 40 MG EC 03 l tablet ARIPiprazol 2021-09 Yes 10mg QD Take 10 mg [facility] (ABILIFY) 10-[address] 10 MG 17:12: nightly. [facility] disintegrat 03 l ing tablet atorvastati 2021-09 Yes 20mg QD Take 20 mg [facility] (LIPITOR) 10-[address] 20 mg 17:12: nightly. [facility] tablet 03 Default OP l ins fluticasone 2021-09 Yes 2{puff} Q.5D Inhale 2 [facility] propion-sylvia 10-[address] meteroL 17:12: (two) [facility]osp[facility] (ADVAIR/ 03 times a l [place]IX[place] day. INHUB) 250-50 mcg/dose DISKUS pregabalin 2021-09 Yes 100mg Q.5D Take 100 [facility] (LYRICA) 1-[address] 100 MG 17:12: mouth 2 [facility] capsule 03 (two) l times a day. cyanocobala 2021-[address] [facility] min, - 5,[address] vitamin 17:12: under the [facility]pi [facility] B-12, 5,000 03 tongue l mcg tablet, daily. sublingual cholecalcif 2021-09 Yes 5000U QD Take 5,000 [facility] aminah, 1-[address] vitamin D3, 17:12: mouth [facility] 5,000 unit 03 daily. l capsule ascorbic 2021-09 Yes 1000mg Q.5D Take 1,000 M ethodi acid, 1-29 mg by vitamin C, 17:12: mouth 2 [facility] (VITAMIN C) 03 (two) l 1000 MG times a tablet day. multivitami 2021-09 Yes 1{capsu Q.5D Take 1 M ethodi n - le} capsule by st (THERAGRAN) 17:12: mouth 2 [facility] tablet 03 (two) l times a day. levalbutero 2021-09 Yes 1{puff} Q4H Inhale 1-2 [facility] (XOPENEX 1-[address] HFA) 45 17:12: every 4 [facility] mcg/actuati 03 (four) l on inhaler hours as needed for wheezing or shortness of breath. levalbutero 2021-09 Yes 1{ampul Q4H Take 1 M ethodi l (XOPENEX) 29 e} ampule by st 1.25 mg/3 17:12: nebulizati [facility] mL 03 on every 4 l nebulizer (four) solution hours as needed for wheezing or shortness of breath. traZODone 2021-09 Yes 75mg QD Take 75 mg [facility] (DESYREL) 10-[address] 50 MG 17:12: nightly. [facility] tablet 03 l cycloSPORIN 2021-09 Yes 1[drp] Q.5D Administer Methodi E - [address] (RESTASIS) 17:12: both eyes [facility] 0.05 % 03 2 (two) l ophthalmic times a emulsion day. aspirin 2021-09 Yes 81mg QD Take 81 mg Meth dav[facility] (ECOTRIN) -[address] 81 MG 17:12: daily. [facility] 03 l coated tablet sertraline 2021-09 Yes 100mg QD Take 100 [facility] (ZOLOFT) 1-[address] 100 MG 17:12: mouth [facility] tablet 03 daily. l pantoprazol 2021-09 Yes 40mg QD Take 40 mg [facility] -[address] (PROTONIX) 17:12: daily. [facility] 40 MG EC 03 l tablet ARIPiprazol 2021-09 Yes 10mg QD Take 10 mg [facility] (ABILIFY) -[address] 10 MG 17:12: nightly. [facility] disintegrat 03 l ing tablet atorvastati 2021-09 Yes 20mg QD Take 20 mg [facility] (LIPITOR) 1-[address] 20 mg 17:12: nightly. [facility] tablet 03 Default OP l ins fluticasone 2021-09 Yes 2{puff} Q.5D Inhale 2 [facility] propion-sylvia 1-[address] meteroL 17:12: (two) [facility]osp[facility] (ADVAIR/ 03 times a l WIXEL[place] day. INHUB) 250-50 mcg/dose DISKUS pregabalin 2021-09 Yes 100mg Q.5D Take 100 [facility] (LYRICA) 1-[address] 100 MG 17:12: mouth 2 [facility] capsule 03 (two) l times a day. cyanocobala 2021-[address] [facility] min, 1-29 5,[address] vitamin 17:12: under the Hos[facility] B-12, 5,000 03 tongue l mcg tablet, daily. sublingual cholecalcif 2021-09 Yes 5000U QD Take 5,000 Methodi aminah, 1-29 Units by vitamin D3, 17:12: mouth [facility] 5,000 unit 03 daily. l capsule ascorbic 2021-09 Yes 1000mg Q.5D Take 1,000 M ethodi acid, 1-29 mg by vitamin C, 17:12: mouth 2 [facility] (VITAMIN C) 03 (two) l 1000 MG times a tablet day. multivitami 2021-09 Yes 1{capsu Q.5D Take 1 M ethodi n 1-29 le} capsule by (THERAGRAN) 17:12: mouth 2 [facility] tablet 03 (two) l times a day. levalbutero 2021-09 Yes 1{puff} Q4H Inhale 1-2 Method[facility] (XOPENEX 1-[address] HFA) 45 17:12: every 4 [facility] mcg/actuati 03 (four) l on inhaler hours as needed for wheezing or shortness of breath. levalbutero 2021-09 Yes 1{ampul Q4H Take 1 M ethodi l (XOPENEX) 10-27 e} ampule by st 1.25 mg/3 17:12: nebulizati [facility] mL 03 on every 4 l nebulizer (four) solution hours as needed for wheezing or shortness of breath. traZODone 2021-09 Yes 75mg QD Take 75 mg [facility] (DESYREL) 10-[address] 50 MG 17:12: nightly. [facility] tablet 03 l cycloSPORIN 2021-09 Yes 1[drp] Q.5D Administer Methodi E 10-[address] (RESTASIS) 17:12: both eyes [facility] 0.05 % 03 2 (two) l ophthalmic times a emulsion day. aspirin 2021-09 Yes 81mg QD Take 81 mg Meth david (ECOTRIN) 10-[address] 81 MG 17:12: daily. [facility] enteric 03 l coated tablet sertraline 2021-09 Yes 100mg QD Take 100 [facility] (ZOLOFT) 1-[address] 100 MG 17:12: mouth [facility] tablet 03 daily. l pantoprazol 2021-09 Yes 40mg QD Take 40 mg [facility] 10-[address] (PROTONIX) 17:12: daily. [facility] 40 MG EC 03 l tablet ARIPiprazol 2021-09 Yes 10mg QD Take 10 mg [facility] (ABILIFY) 10-[address] 10 MG 17:12: nightly. [facility] disintegrat 03 l ing tablet atorvastati 2021-09 Yes 20mg QD Take 20 mg [facility] (LIPITOR) 10-[address] 20 mg 17:12: nightly. [facility] tablet 03 Default OP l ins fluticasone 2021-09 Yes 2{puff} Q.5D Inhale 2 [facility] propion-sylvia -[address] meteroL 17:12: (two) [facility]osp[facility] (ADVAIR/ 03 times a l WIXEL[place] day. INHUB) 250-50 mcg/dose DISKUS pregabalin 2021-09 Yes 100mg Q.5D Take 100 [facility] (LYRICA) 1-[address] 100 MG 17:12: mouth 2 [facility] capsule 03 (two) l times a day. cyanocobala 2021-[address] [facility] min, -29 5,[address] vitamin 17:12: under the Hospi [facility] B-12, 5,000 03 tongue l mcg tablet, daily. sublingual cholecalcif 2021-09 Yes 5000U QD Take 5,000 Methodi aminah, 1-29 Units by vitamin D3, 17:12: mouth [facility] 5,000 unit 03 daily. l capsule ascorbic 2021-09 Yes 1000mg Q.5D Take 1,000 M ethodi acid, -29 mg by vitamin C, 17:12: mouth 2 [facility] (VITAMIN C) 03 (two) l 1000 MG times a tablet day. multivitami 2021-09 Yes 1{capsu Q.5D Take 1 M ethodi n 10-27 le} capsule by (THERAGRAN) 17:12: mouth 2 [facility] tablet 03 (two) l times a day. levalbutero 2021-09 Yes 1{puff} Q4H Inhale 1-2 Method[facility] (XOPENEX 10-[address] HFA) 45 17:12: every 4 [facility] mcg/actuati 03 (four) l on inhaler hours as needed for wheezing or shortness of breath. levalbutero 2021-09 Yes 1{ampul Q4H Take 1 M ethodi l (XOPENEX) 10-27 e} ampule by st 1.25 mg/3 17:12: nebulizati [facility] mL 03 on every 4 l nebulizer (four) solution hours as needed for wheezing or shortness of breath. traZODone 2021-09 Yes 75mg QD Take 75 mg [facility] (DESYREL) 10-[address] 50 MG 17:12: nightly. [facility] tablet 03 l cycloSPORIN 2021-09 Yes 1[drp] Q.5D Administer Methodi E 10-[address] (RESTASIS) 17:12: both eyes [facility] 0.05 % 03 2 (two) l ophthalmic times a emulsion day. aspirin 2021-09 Yes 81mg QD Take 81 mg Meth dav[facility] (ECOTRIN) 10-[address] 81 MG 17:12: daily. [facility] enteric 03 l coated tablet sertraline 2021-09 Yes 100mg QD Take 100 [facility] (ZOLOFT) 1-[address] 100 MG 17:12: mouth [facility] tablet 03 daily. l pantoprazol 2021-09 Yes 40mg QD Take 40 mg [facility] -[address] (PROTONIX) 17:12: daily. [facility] 40 MG EC 03 l tablet ARIPiprazol 2021-09 Yes 10mg QD Take 10 mg [facility] (ABILIFY) 10-[address] 10 MG 17:12: nightly. [facility] disintegrat 03 l ing tablet atorvastati 2021-09 Yes 20mg QD Take 20 mg [facility] (LIPITOR) 10-[address] 20 mg 17:12: nightly. [facility] tablet 03 Default OP l ins fluticasone 2021-09 Yes 2{puff} Q.5D Inhale 2 [facility] propion-sylvia -[address] meteroL 17:12: (two) [facility]osp[facility] (ADVAIR/ 03 times a l WIXELA day. INHUB) 250-50 mcg/dose DISKUS pregabalin 2021-09 Yes 100mg Q.5D Take 100 [facility] (LYRICA) 1-[address] 100 MG 17:12: mouth 2 [facility] capsule 03 (two) l times a day. cyanocobala 2021-[address] [facility] min, -29 5,[address] vitamin 17:12: under the Hospi [facility] B-12, 5,000 03 tongue l mcg tablet, daily. sublingual cholecalcif 2021-09 Yes 5000U QD Take 5,000 [facility] aminah, 1-[address] vitamin D3, 17:12: mouth [facility] 5,000 unit 03 daily. l capsule ascorbic 2021-09 Yes 1000mg Q.5D Take 1,000 M ethodi acid, 1-[address] vitamin C, 17:12: mouth 2 [facility] (VITAMIN C) 03 (two) l 1000 MG times a tablet day. multivitami 2021-09 Yes 1{capsu Q.5D Take 1 M ethodi n 1-29 le} capsule by st (THERAGRAN) 17:12: mouth 2 [facility] tablet 03 (two) l times a day. levalbutero 2021-09 Yes 1{puff} Q4H Inhale 1-2 Methodi l (XOPENEX 1-[address] HFA) 45 17:12: every 4 [facility]osp[facility] mcg/actuati 03 (four) l on inhaler hours as needed for wheezing or shortness of breath. levalbutero 2021-09 Yes 1{ampul Q4H Take 1 M ethodi l (XOPENEX) 1-29 e} ampule by st 1.25 mg/3 17:12: nebulizati [facility] mL 03 on every 4 l nebulizer (four) solution hours as needed for wheezing or shortness of breath. traZODone 2021-09 Yes 75mg QD Take 75 mg [facility] (DESYREL) 10-[address] 50 MG 17:12: nightly. [facility] tablet 03 l cycloSPORIN 2021-09 Yes 1[drp] Q.5D Administer Methodi E 10-[address] (RESTASIS) 17:12: both eyes [facility] 0.05 % 03 2 (two) l ophthalmic times a emulsion day. aspirin 2021-09 Yes 81mg QD Take 81 mg Meth david (ECOTRIN) 10-[address] 81 MG 17:12: daily. [facility] enteric 03 l coated tablet sertraline 2021-09 Yes 100mg QD Take 100 [facility] (ZOLOFT) 1-[address] 100 MG 17:12: mouth [facility] tablet 03 daily. l pantoprazol 2021-09 Yes 40mg QD Take 40 mg [facility] 10-[address] (PROTONIX) 17:12: daily. [facility] ta 40 MG EC 03 l tablet ARIPiprazol 2021-09 Yes 10mg QD Take 10 mg [facility] (ABILIFY) 10-[address] 10 MG 17:12: nightly. [facility] disintegrat 03 l ing tablet atorvastati 2021-09 Yes 20mg QD Take 20 mg [facility] (LIPITOR) 10-[address] 20 mg 17:12: nightly. [facility] tablet 03 Default OP l ins fluticasone 2021-09 Yes 2{puff} Q.5D Inhale 2 Methodi propion-sylvia 1-[address] meteroL 17:12: (two) [facility]ospita (ADVAIR/ 03 times a l WIXELA day. INHUB) 250-50 mcg/dose DISKUS pregabalin 2021-09 Yes 100mg Q.5D Take 100 [facility] (LYRICA) 1-[address] 100 MG 17:12: mouth 2 [facility] capsule 03 (two) l times a day. cyanocobala 2021-[address] [facility] min, 1-29 5,[address] vitamin 17:12: under the Hospi [facility] B-12, 5,000 03 tongue l mcg tablet, daily. sublingual cholecalcif 2021-09 Yes 5000U QD Take 5,000 Methodi aminah, 1-29 Units by vitamin D3, 17:12: mouth [facility] ta 5,000 unit 03 daily. l capsule ascorbic 2021-09 Yes 1000mg Q.5D Take 1,000 M ethodi acid, 1-29 mg by vitamin C, 17:12: mouth 2 [facility] (VITAMIN C) 03 (two) l 1000 MG times a tablet day. multivitami 2021-09 Yes 1{capsu Q.5D Take 1 M ethodi n 1-29 le} capsule by (THERAGRAN) 17:12: mouth 2 [facility] tablet 03 (two) l times a day. levalbutero 2021-09 Yes 1{puff} Q4H Inhale 1-2 Methodi l (XOPENEX 1-[address] HFA) 45 17:12: every 4 [facility]osp[facility] mcg/actuati 03 (four) l on inhaler hours as needed for wheezing or shortness of breath. levalbutero 2021-09 Yes 1{ampul Q4H Take 1 M ethodi l (XOPENEX) 1-29 e} ampule by st 1.25 mg/3 17:12: nebulizati [facility] mL 03 on every 4 l nebulizer (four) solution hours as needed for wheezing or shortness of breath. pregabalin 2021-09 Yes 100mg Q.5D Take 100 [facility] (LYRICA) 1-[address] 100 MG 17:12: mouth 2 [facility] capsule 03 (two) l times a day. cyanocobala 2021-[address] [facility] min, 1-29 5,[address] vitamin 17:12: under the Hospi [facility] B-12, 5,000 03 tongue l mcg tablet, daily. sublingual cholecalcif 2021-09 Yes 5000U QD Take 5,000 Methodi aminah, 1-29 Units by vitamin D3, 17:12: mouth [facility] ta 5,000 unit 03 daily. l capsule ascorbic 2021-09 Yes 1000mg Q.5D Take 1,000 M ethodi acid, 1-29 mg by vitamin C, 17:12: mouth 2 [facility] (VITAMIN C) 03 (two) l 1000 MG times a tablet day. multivitami 2021-09 Yes 1{capsu Q.5D Take 1 M ethodi n 1-29 le} capsule by (THERAGRAN) 17:12: mouth 2 [facility] tablet 03 (two) l times a day. levalbutero 2021-09 Yes 1{puff} Q4H Inhale 1-2 Methodi l (XOPENEX 1-[address] HFA) 45 17:12: every 4 [facility]osp[facility] mcg/actuati 03 (four) l on inhaler hours as needed for wheezing or shortness of breath. levalbutero 2021-09 Yes 1{ampul Q4H Take 1 M ethodi l (XOPENEX) 1-29 e} ampule by st 1.25 mg/3 17:12: nebulizati [facility] mL 03 on every 4 l nebulizer (four) solution hours as needed for wheezing or shortness of breath. traZODone 2021-09 Yes 75mg QD Take 75 mg [facility] (DESYREL) 10-[address] 50 MG 17:12: nightly. [facility] tablet 03 l cycloSPORIN 2021-09 Yes 1[drp] Q.5D Administer Methodi E - [address] (RESTASIS) 17:12: both eyes [facility]ita 0.05 % 03 2 (two) l ophthalmic times a emulsion day. aspirin 2021-09 Yes 81mg QD Take 81 mg Meth david (ECOTRIN) 10-[address] 81 MG 17:12: daily. [facility] enteric 03 l coated tablet sertraline 2021-09 Yes 100mg QD Take 100 [facility] (ZOLOFT) 1-[address] 100 MG 17:12: mouth [facility] tablet 03 daily. l pantoprazol 2021-09 Yes 40mg QD Take 40 mg Methodi e -[address] (PROTONIX) 17:12: daily. [facility]pi ta 40 MG EC 03 l tablet ARIPiprazol 2021-09 Yes 10mg QD Take 10 mg [facility] (ABILIFY) 10-[address] 10 MG 17:12: nightly. [facility]osp[facility] disintegrat 03 l ing tablet atorvastati 2021-09 Yes 20mg QD Take 20 mg [facility] (LIPITOR) 10-[address] 20 mg 17:12: nightly. [facility] tablet 03 Default OP l ins fluticasone 2021-09 Yes 2{puff} Q.5D Inhale 2 [facility] propion-sylvia -[address] meteroL 17:12: (two) [facility]ospita (ADVAIR/ 03 times a l WIXELA day. INHUB) 250-50 mcg/dose DISKUS Fluvastatin 2021-09 Yes 20mg 20 mg Kelse y Sodium 20 1-24 Seybold MG oral 00:00: - Capsule 00 Externa l busPIRone 2021-09 Yes 5mg 5 mg Julissa HCl 5 MG 1-24 Seybold oral Tablet 00:00: - 00 Externa l Ferrous 2021-09 Yes 325mg 325 mg Julissa Sulfate 325 1-24 Seybold (65 Fe) MG 00:00: - oral Tablet 00 Externa l Fluvastatin 2021-09 Yes 20mg 20 mg Kelse y Sodium 20 1-24 Seybold MG oral 00:00: - Capsule 00 Externa l busPIRone 2021-09 Yes 5mg 5 mg Julissa HCl 5 MG 1-24 Seybold oral Tablet 00:00: - 00 Externa l Ferrous 2021-09 Yes 325mg 325 mg Julissa Sulfate 325 1-24 Seybold (65 Fe) MG 00:00: - oral Tablet 00 Externa l Fluvastatin 2021-09 Yes 20mg 20 mg Kelse y Sodium 20 1-24 Seybold MG oral 00:00: - Capsule 00 Externa l busPIRone 2021-09 Yes 5mg 5 mg Julissa HCl 5 MG 1-24 Seybold oral Tablet 00:00: - 00 Externa l Ferrous 2021-09 Yes 325mg 325 mg Julissa Sulfate 325 1-24 Seybold (65 Fe) MG 00:00: - oral Tablet 00 Externa l Fluvastatin 2021-09 Yes 20mg 1 capsule K elsey Sodium 20 1-24 (20 mg Seybold MG oral 00:00: total) - Capsule 00 Externa l busPIRone 2021-09 Yes 5mg 1 tablet Ava ey HCl 5 MG 1-24 (5 mg Seybold oral Tablet 00:00: total) - 00 Externa l Ferrous 2021-09 Yes 325mg 1 tablet Kelse y Sulfate 325 1-24 (325 mg Seybo ld (65 Fe) MG 00:00: total) - oral Tablet 00 Externa l busPIRone 2021-09- No 5mg 1 tablet Darlene sey HCl 5 MG 1-24 05-17 (5 mg Seybold oral Tablet 00:00: 00:00 total) - 00 :00 Externa l levoFLOXaci 2021-09 No 750mg QD Take 1 [facility] n [facility]-[address] (LEVAQUIN) 00:00: 00:00 (750 mg Hos loki 750 MG 00 :00 total) by l tablet mouth daily for 5 days. levoFLOXaci 2021-09 No 750mg QD Take 1 [facility] 10[facility] (LEVAQUIN) 00:00: 00:00 (750 mg Hos loki 750 MG 00 :00 total) by l tablet mouth daily for 5 days. levoFLOXaci 2021-09 No 750mg QD Take 1 [facility] 10[facility] (LEVAQUIN) 00:00: 00:00 (750 mg Hos l[facility] 750 MG 00 :00 total) by l tablet mouth daily for 5 days. levoFLOXaci 2021-09 No 750mg QD Take 1 [facility] n 10-21-[address] (LEVAQUIN) 00:00: 00:00 (750 mg Hos [facility] 750 MG 00 :00 total) by l tablet mouth daily for 5 days. levoFLOXaci 2021-09 No 750mg QD Take 1 [facility] n -21 08-[address] (LEVAQUIN) 00:00: 00:00 (750 mg [facility] 750 MG 00 :00 total) by l tablet mouth daily for 5 days. levoFLOXaci 2021-09 No 750mg QD Take 1 [facility] n 10-[address] (LEVAQUIN) 00:00: 00:00 (750 mg Hos l[facility] 750 MG 00 :00 total) by l tablet mouth daily for 5 days. levoFLOXaci 2021-09 No 750mg QD Take 1 [facility] (LEVAQUIN) 00:00: 00:00 (750 mg [facility] l[facility] 750 MG 00 :00 total) by l tablet mouth daily for 5 days. levoFLOXaci 2021-09 No 750mg QD Take 1 [facility] 10[facility] (LEVAQUIN) 00:00: 00:00 (750 mg [facility] 750 MG 00 :00 total) by l tablet mouth daily for 5 days. levoFLOXaci 2021-09 No 750mg QD Take 1 [facility] 10[facility] (LEVAQUIN) 00:00: 00:00 (750 mg Hos l[facility] 750 MG 00 :00 total) by l tablet mouth daily for 5 days. levoFLOXaci 2021-09 No 750mg QD Take 1 [facility] (LEVAQUIN) 00:00: 00:00 (750 mg [facility] l[facility] 750 MG 00 :00 total) by l tablet mouth daily for 5 days. levoFLOXaci 2021-09 No 750mg QD Take 1 [facility] (LEVAQUIN) 00:00: 05:59 (750 mg [facility] l[facility] 750 MG 00 :00 total) by l tablet mouth daily for 5 days. levoFLOXaci 2021-09 No 750mg QD Take 1 [facility] (LEVAQUIN) 00:00: 00:00 (750 mg [facility] 750 MG 00 :00 total) by l tablet mouth daily for 5 days. levoFLOXaci 2021-09 No 750mg QD Take 1 [facility] (LEVAQUIN) 00:00: 00:00 (750 mg [facility] 750 MG 00 :00 total) by l tablet mouth daily for 5 days. levoFLOXaci 2021-09 No 750mg QD Take 1 [facility] (LEVAQUIN) 00:00: 00:00 (750 mg [facility] 750 MG 00 :00 total) by l tablet mouth daily for 5 days. levoFLOXaci 2021-09 No 750mg QD Take 1 [facility] (LEVAQUIN) 00:00: 00:00 (750 mg [facility] 750 MG 00 :00 total) by l tablet mouth daily for 5 days. levoFLOXaci 2021-09 No 750mg QD Take 1 [facility] (LEVAQUIN) 00:00: 00:00 (750 mg [facility] 750 MG 00 :00 total) by l tablet mouth daily for 5 days. levoFLOXaci 2021-09 No 750mg QD Take 1 [facility] 10[facility] (LEVAQUIN) 00:00: 00:00 (750 mg [facility] 750 MG 00 :00 total) by l tablet mouth daily for 5 days. levoFLOXaci 2021-09 No 750mg QD Take 1 [facility] (LEVAQUIN) 00:00: 00:00 (750 mg [facility] 750 MG 00 :00 total) by l tablet mouth daily for 5 days. furosemide 2021-09 No 40mg Q24H Take 40 mg Methodi [...] H ospita 48 :00 l diltiazem 2021-09 No 240mg QD Take 240 [facility] (CardIZEM) 1-22 11-[address] 60 MG 14:56: 00:00 mouth Hospita tablet 48 :00 daily. l furosemide 2021-09 No 40mg Q24H Take 40 mg [facility] (LASIX) 40 10-20- by mouth st mg tablet 14:56: 00:00 daily as Hos loki 48 :00 needed l (for swelling). carvediloL 2021-09 No 25mg Q.5D Take 25 mg [facility] (COREG) 25 10-[address] MG tablet 14:56: 00:00 (two) Hospit a 48 :00 times a l day with meals. lisinopriL 2021-09- No 5mg QD Take 5 mg M [facility]i (PRINIVIL) 10-[address] 5 mg tablet 14:56: 00:00 nightly. H ospita 48 :00 l diltiazem 2021-09- No 240mg QD Take 240 [facility] (CardIZEM) 10-20-[address] 60 MG 14:56: 00:00 mouth Hospita tablet 48 :00 daily. l furosemide 2021-09 No 40mg Q24H Take 40 mg [facility] (LASIX) 40 10-20- by mouth st mg tablet 14:56: 00:00 [...] nightly. H ospita 48 :00 l diltiazem 2021-09- No 240mg QD Take 240 [facility] (CardIZEM) - 11-[address] 60 MG 14:56: 00:00 mouth Hospita tablet 48 :00 daily. l furosemide 2021-09- No 40mg Q24H Take 40 mg [facility] (LASIX) 40 1-22 11-[address] mg tablet 14:56: 00:00 daily as [facility] 48 :00 needed l (for swelling). carvediloL 2021-09 No 25mg Q.5D Take 25 mg [facility] (COREG) 25 10-[address] MG tablet 14:56: 00:00 (two) Hospit a 48 :00 times a l day with meals. lisinopriL 2021-09- No 5mg QD Take 5 mg M [facility]i (PRINIVIL) 10-[address] 5 mg tablet 14:56: 00:00 nightly. H ospita 48 :00 l diltiazem 2021-09- No 240mg QD Take 240 [facility] (CardIZEM) 10-20-[address] 60 MG 14:56: 00:00 mouth Hospita tablet 48 :00 daily. l furosemide 2021-09 No 40mg Q24H Take 40 mg Method[facility] [...] nightly. H ospita 48 :00 l diltiazem 2021-09- No 240mg QD Take 240 [facility] (CardIZEM) 10-20 11-[address] 60 MG 14:56: 00:00 mouth Hospita tablet 48 :00 daily. l furosemide 2021-09- No 40mg Q24H Take 40 mg [facility] (LASIX) 40 10-20- by mouth st mg tablet 14:56: 00:00 daily as [facility] l[facility] 48 :00 needed l (for swelling). carvediloL 2021-09 No 25mg Q.5D Take 25 mg [facility] (COREG) 25 10-[address] MG tablet 14:56: 00:00 (two) Hospit a 48 :00 times a l day with meals. lisinopriL 2021-09- No 5mg QD Take 5 mg M [facility]i (PRINIVIL) 10-[address] 5 mg tablet 14:56: 00:00 nightly. H ospita 48 :00 l diltiazem 2021-09 No 240mg QD Take 240 [facility] (CardIZEM) 10-20-[address] 60 MG 14:56: 00:00 mouth Hospita tablet 48 :00 daily. l furosemide 2021-09 No 40mg Q24H Take 40 mg Method[facility] [...] H ospita 48 :00 l diltiazem 2021-09 No 240mg QD Take 240 [facility] (CardIZEM) 10-20- mg by st 60 MG 14:56: 00:00 mouth Hospita tablet 48 :00 daily. l furosemide 2021-09 No 40mg Q24H Take 40 mg [facility] (LASIX) 40 10-20- by mouth st mg tablet 14:56: 00:00 daily as [facility] l[facility] 48 :00 needed l (for swelling). carvediloL 2021-09 No 25mg Q.5D Take 25 mg [facility] (COREG) 25 10-[address] MG tablet 14:56: 00:00 (two) Hospit a 48 :00 times a l day with meals. lisinopriL 2021-09- No 5mg QD Take 5 mg [facility]i (PRINIVIL) 10-20- by mouth st 5 mg tablet 14:56: 00:00 nightly. H ospita 48 :00 l diltiazem 2021-09- No 240mg QD Take 240 [facility] (CardIZEM) - 11-[address] 60 MG 14:56: 00:00 mouth Hospita tablet 48 :00 daily. l furosemide 2021-09- No 40mg Q24H Take 40 mg [facility] (LASIX) 40 -20 08- by mouth st mg tablet 14:56: 00:00 daily as [facility] l[facility] 48 :00 needed l (for swelling). carvediloL 2021-09 No 25mg Q.5D Take 25 mg [facility] (COREG) 25 10-20- by mouth 2 st MG tablet 14:56: 00:00 (two) Hospit a 48 :00 times a l day with meals. lisinopriL 2021-09 No 5mg QD Take 5 mg [facility]i (PRINIVIL) 10-20- by mouth st 5 mg tablet 14:56: 00:00 nightly. [facility] ospita 48 :00 l diltiazem 2021-09 No 240mg QD Take 240 [facility] (CardIZEM) 10-20 11-[address] 60 MG 14:56: 00:00 mouth Hospita tablet 48 :00 daily. l furosemide 2021-09 No 40mg Q24H Take 40 mg [facility] (LASIX) 40 10-20- by mouth st mg tablet 14:56: 00:00 daily as [facility] l[facility] 48 :00 needed l (for swelling). carvediloL 2021-09- No 25mg Q.5D Take 25 mg [facility] (COREG) 25 10-20- by mouth 2 st MG tablet 14:56: 00:00 (two) Hospit a 48 :00 times a l day with meals. lisinopriL 2021-09- No 5mg QD Take 5 mg [facility]i (PRINIVIL) 10-20- by mouth st 5 mg tablet 14:56: 00:00 nightly. H ospita 48 :00 l diltiazem 2021-09 No 240mg QD Take 240 [facility] (CardIZEM) -22 11-[address] 60 MG 14:56: 00:00 mouth Hospita tablet 48 :00 daily. l furosemide 2021-09- No 40mg Q24H Take 40 mg [facility] (LASIX) 40 -20 08-[address] mg tablet 14:56: 00:00 [...] H ospita 48 :00 l diltiazem 2021-09 No 240mg QD Take 240 [facility] (CardIZEM) 10-20 11-[address] 60 MG 14:56: 00:00 mouth Hospita tablet 48 :00 daily. l furosemide 2021-09 No 40mg Q24H Take 40 mg [facility] (LASIX) 40 10-20-[address] mg tablet 14:56: 00:00 daily as [facility] loki 48 :00 needed l (for swelling). carvediloL 2021-09 No 25mg Q.5D Take 25 mg [facility] (COREG) 25 10-20- by mouth 2 [address] MG tablet 14:56: 00:00 (two) Hospit a 48 :00 times a l day with meals. lisinopriL 2021-09- No 5mg QD Take 5 mg [facility]i (PRINIVIL) 10-20- by mouth st 5 mg tablet 14:56: 00:00 nightly. H ospita 48 :00 l diltiazem 2021-09 No 240mg QD Take 240 [facility] (CardIZEM) -22 11-[address] 60 MG 14:56: 00:00 mouth Hospita tablet 48 :00 daily. l furosemide 2021-09- No 40mg Q24H Take 40 mg [facility] (LASIX) 40 10-[address] mg tablet 14:56: 00:00 daily as [facility] l[facility] 48 :00 needed l (for swelling). carvediloL 2021-09- No 25mg Q.5D Take 25 mg [facility] (COREG) 25 10-[address] MG tablet 14:56: 00:00 (two) Hospit a 48 :00 times a l day with meals. lisinopriL 2021-09- No 5mg QD Take 5 mg [facility] (PRINIVIL) 10-[address] 5 mg tablet 14:56: 00:00 nightly. [facility] ospita 48 :00 l diltiazem 2021-09- No 240mg QD Take 240 [facility] (CardIZEM) 10-20 11-[address] 60 MG 14:56: 00:00 mouth Hospita tablet 48 :00 daily. l furosemide 2021-09- No 40mg Q24H Take 40 mg [facility] (LASIX) 40 10-[address] mg tablet 14:56: 00:00 daily as [facility] l[facility] 48 :00 needed l (for swelling). carvediloL 2021-09 No 25mg Q.5D Take 25 mg [facility] (COREG) 25 10-[address] MG tablet 14:56: 00:00 (two) Hospit a 48 :00 times a l day with meals. lisinopriL 2021-09- No 5mg QD Take 5 mg M [facility]i (PRINIVIL) 10-[address] 5 mg tablet 14:56: 00:00 nightly. H ospita 48 :00 l diltiazem 2021-09- No 240mg QD Take 240 [facility] (CardIZEM) - 11-[address] 60 MG 14:56: 00:00 mouth Hospita tablet 48 :00 daily. l furosemide 2021-09- No 40mg Q24H Take 40 mg [facility] (LASIX) 40 10-[address] mg tablet 14:56: 00:00 daily as [facility] l[facility] 48 :00 needed l (for swelling). carvediloL 2021-09 No 25mg Q.5D Take 25 mg [facility] (COREG) 25 10-[address] MG tablet 14:56: 00:00 (two) Hospit a 48 :00 times a l day with meals. lisinopriL 2021-09- No 5mg QD Take 5 mg [facility] (PRINIVIL) 10-[address] 5 mg tablet 14:56: 00:00 nightly. [facility] ospita 48 :00 l diltiazem 2021-09- No 240mg QD Take 240 [facility] (CardIZEM) 10-20 11-[address] 60 MG 14:56: 00:00 mouth Hospita tablet 48 :00 daily. l furosemide 2021-09 No 40mg Q24H Take 40 mg [facility] (LASIX) 40 10-[address] mg tablet 14:56: 00:00 daily as [facility] l[facility] 48 :00 needed l (for swelling). carvediloL 2021-09 No 25mg Q.5D Take 25 mg [facility] (COREG) 25 10-[address] MG tablet 14:56: 00:00 (two) Hospit a 48 :00 times a l day with meals. lisinopriL 2021-09- No 5mg QD Take 5 mg [facility] (PRINIVIL) 10-[address] 5 mg tablet 14:56: 00:00 nightly. H ospita 48 :00 l diltiazem 2021-09- No 240mg QD Take 240 [facility] (CardIZEM) 10-20 11-[address] 60 MG 14:56: 00:00 mouth Hospita tablet 48 :00 daily. l furosemide 2021-09- No 40mg Q24H Take 40 mg [facility] (LASIX) 40 10-20- by mouth st mg tablet 14:56: 00:00 daily as [facility] l[facility] 48 :00 needed l (for swelling). carvediloL 2021-09- No 25mg Q.5D Take 25 mg [facility] (COREG) 25 10-[address] MG tablet 14:56: 00:00 (two) Hospit a 48 :00 times a l day with meals. lisinopriL 2021-09- No 5mg QD Take 5 mg M [facility]i (PRINIVIL) 10-[address] 5 mg tablet 14:56: 00:00 nightly. H ospita 48 :00 l diltiazem 2021-09- No 240mg QD Take 240 [facility] (CardIZEM) 10-20 11-[address] 60 MG 14:56: 00:00 mouth Hospita tablet 48 :00 daily. l furosemide 2021-09- No 40mg Q24H Take 40 mg [facility] (LASIX) 40 10-[address] mg tablet 14:56: 00:00 daily as Hos loki 48 :00 needed l (for swelling). carvediloL 2021-09- No 25mg Q.5D Take 25 mg [facility] (COREG) 25 10-[address] MG tablet 14:56: 00:00 (two) Hospit a 48 :00 times a l day with meals. lisinopriL 2021-09 No 5mg QD Take 5 mg [facility]i (PRINIVIL) 10-[address] 5 mg tablet 14:56: 00:00 nightly. H ospita 48 :00 l diltiazem 2021-09 No 240mg QD Take 240 [facility] (CardIZEM) 10-20 11-[address] 60 MG 14:56: 00:00 mouth Hospita tablet 48 :00 daily. l pregabalin 2021-09 Yes 100mg Q.5D Take 100 Me [facility] (LYRICA) 1-[address] 100 MG 14:56: mouth 2 Hospita capsule 45 (two) l times a day. cyanocobala 2021-[address] [facility] min, 10-20 5,[address] vitamin 14:56: under the [...] Q4H Take 1 M ethodi l (XOPENEX) -22 e} ampule by st 1.25 mg/3 14:56: [...] QD Take 75 mg Me thodi (DESYREL) 10-[address] 50 MG 14:56: nightly. Hospita tablet 45 l cycloSPORIN 2021-09 Yes 1[drp] Q.5D Administer [facility] E -[address] (RESTASIS) 14:56: both eyes Ho spita 0.05 % 45 2 (two) l ophthalmic times a emulsion day. aspirin 2021-09 Yes 81mg QD Take 81 mg Meth david (ECOTRIN) -[address] 81 MG 14:56: daily. [...] 40mg QD Take 40 mg [facility] e 1-[address] (PROTONIX) 14:56: daily. Hospi ta 40 MG EC 45 l tablet ARIPiprazol 2021-09 Yes 10mg QD Take 10 mg [facility] e (ABILIFY) -[address] 10 MG 14:56: nightly. Hospita disintegrat 45 l ing tablet atorvastati 2021-09 Yes 20mg QD Take 20 mg [facility] n (LIPITOR) -[address] 20 mg 14:56: nightly. Hospita tablet 45 Default OP l ins fluticasone 2021-09 Yes 2{puff} Q.5D Inhale 2 [facility] propion-sylvia -[address] meteroL 14:56: (two) Hospita (ADVAIR/ 45 times a l WIXELA day. INHUB) 250-50 mcg/dose DISKUS metoprolol 2021-09 No 12.5mg Q.5D Take 0.5 [facility] tartrate -22 -[address] (LOPRESSOR) 00:00: 05:59 (12.5 mg H ospita 25 mg 00 :00 total) by l tablet mouth 2 (two) times a day for 60 days. metoprolol 2021-09 No 12.5mg Q.5D Take 0.5 [facility] tartrate -22 11-[address] (LOPRESSOR) 00:00: 00:00 (12.5 mg H ospita 25 mg 00 :00 total) by l tablet mouth 2 (two) times a day for 60 days. metoprolol 2021-09 No 12.5mg Q.5D Take 0.5 [facility] tartrate -22 11-[address] (LOPRESSOR) 00:00: 00:00 (12.5 mg H ospita 25 mg 00 :00 total) by l tablet mouth 2 (two) times a day for 60 days. metoprolol 2021-09- No 12.5mg Q.5D Take 0.5 [facility] tartrate 1-22 11-[address] (LOPRESSOR) 00:00: 00:00 (12.5 mg H ospita 25 mg 00 :00 total) by l tablet mouth 2 (two) times a day for 60 days. metoprolol 2021-09- No 12.5mg Q.5D Take 0.5 [facility] tartrate 1-22 11-[address] (LOPRESSOR) 00:00: 00:00 (12.5 mg H ospita 25 mg 00 :00 total) by l tablet mouth 2 (two) times a day for 60 days. metoprolol 2021-09- No 12.5mg Q.5D Take 0.5 [facility] tartrate 1-22 11-[address] (LOPRESSOR) 00:00: 00:00 (12.5 mg H ospita 25 mg 00 :00 total) by l tablet mouth 2 (two) times a day for 60 days. metoprolol 2021-09- No 12.5mg Q.5D Take 0.5 [facility] tartrate 1-22 11-[address] (LOPRESSOR) 00:00: 00:00 (12.5 mg H ospita 25 mg 00 :00 total) by l tablet mouth 2 (two) times a day for 60 days. metoprolol 2021-09- No 12.5mg Q.5D Take 0.5 [facility] tartrate 1-22 11-[address] (LOPRESSOR) 00:00: 00:00 (12.5 mg H ospita 25 mg 00 :00 total) by l tablet mouth 2 (two) times a day for 60 days. metoprolol 2021-09- No 12.5mg Q.5D Take 0.5 [facility] tartrate 1-22 11-[address] (LOPRESSOR) 00:00: 00:00 (12.5 mg H ospita 25 mg 00 :00 total) by l tablet mouth 2 (two) times a day for 60 days. metoprolol 2021-09- No 12.5mg Q.5D Take 0.5 [facility] tartrate 1-22 11-[address] (LOPRESSOR) 00:00: 00:00 (12.5 mg H ospita 25 mg 00 :00 total) by l tablet mouth 2 (two) times a day for 60 days. metoprolol 2021-09- No 12.5mg Q.5D Take 0.5 [facility] tartrate 1-22 11-[address] (LOPRESSOR) 00:00: 00:00 (12.5 mg H ospita 25 mg 00 :00 total) by l tablet mouth 2 (two) times a day for 60 days. metoprolol 2021-09- No 12.5mg Q.5D Take 0.5 [facility] tartrate 1-22 11-[address] (LOPRESSOR) 00:00: 00:00 (12.5 mg H ospita 25 mg 00 :00 total) by l tablet mouth 2 (two) times a day for 60 days. metoprolol 2021-09- No 12.5mg Q.5D Take 0.5 [facility] tartrate 1-22 11-[address] (LOPRESSOR) 00:00: 00:00 (12.5 mg H ospita 25 mg 00 :00 total) by l tablet mouth 2 (two) times a day for 60 days. metoprolol 2021-09- No 12.5mg Q.5D Take 0.5 [facility] tartrate 1-22 11-[address] (LOPRESSOR) 00:00: 00:00 (12.5 mg H ospita 25 mg 00 :00 total) by l tablet mouth 2 (two) times a day for 60 days. metoprolol 2021-09- No 12.5mg Q.5D Take 0.5 [facility] tartrate 1-22 11-[address] (LOPRESSOR) 00:00: 00:00 (12.5 mg H ospita 25 mg 00 :00 total) by l tablet mouth 2 (two) times a day for 60 days. metoprolol 2021-09- No 12.5mg Q.5D Take 0.5 [facility] tartrate 1-22 11-[address] (LOPRESSOR) 00:00: 00:00 (12.5 mg H ospita 25 mg 00 :00 total) by l tablet mouth 2 (two) times a day for 60 days. metoprolol 2021-09- No 12.5mg Q.5D Take 0.5 [facility] tartrate 1-22 11-[address] (LOPRESSOR) 00:00: 00:00 (12.5 mg H ospita 25 mg 00 :00 total) by l tablet mouth 2 (two) times a day for 60 days. metoprolol 2021-09- No 12.5mg Q.5D Take 0.5 [facility] tartrate 1-22 11-[address] (LOPRESSOR) 00:00: 00:00 (12.5 mg H ospita 25 mg 00 :00 total) by l tablet mouth 2 (two) times a day for 60 days. levalbutero 2021-09 Yes .31mg Inhale Uni vers l 0.31 mg/3 1-15 0.31 mg 3 ity of mL 18:19: (three) [place] nebulizer 03 times Medical solution daily. Branch ranolazine 2021-09 Yes 1000mg Take 1,000 [facility] 500 mg 12 1-15 mg by ity of hr tablet 18:19: mouth in [facility] the Medical morning Branch and 1,000 mg in the evening. pantoprazol 2021-09 Yes 40mg Take 40 mg Univers e 40 mg EC 1-15 by mouth ity o f tablet 18:19: in the morning. Medical Branch atogepant 2021-09 Yes 10mg [...] mg 3 ity of mL 18:19: (three) [place] nebulizer 03 times Medical solution daily. Branch ranolazine 2021-09 Yes 1000mg Take 1,000 [facility] 500 mg 12 1-15 mg by ity of hr tablet 18:19: mouth in [place] 03 the Medical morning Branch and 1,000 mg in the evening. pantoprazol 2022-1 Yes 40mg Take 40 mg Univers e 40 mg EC 1-15 by mouth ity o f tablet 18:19: in the morning. Medical Branch atogepant 2021-09 Yes 10mg Take 10 mg Un shine (QULIPTA) 1-15 by mouth ity of 10 mg Tab 18:19: daily. [place] Medical Branch tirzepatide 2021-09 Yes 5mg inject 5 Un shine (MOUNJARO) 1-15 mg under ity o f 5 mg/0.5 mL 18:19: the skin [place] PnIj 03 every 2 Medical (two) Branch weeks. levalbutero 2021-09 Yes .31mg Inhale Uni vers l 0.31 mg/3 1-15 0.31 mg 3 ity of mL 18:19: (three) [place] nebulizer 03 times Medical solution daily. Branch ranolazine 2021-09 Yes 1000mg Take 1,000 [facility] 500 mg 12 1-15 mg by ity of hr tablet 18:19: mouth in the Medical morning Branch and 1,000 mg in the evening. pantoprazol 2021-09 Yes 40mg Take 40 mg Univers e 40 mg EC 1-15 by mouth ity o f tablet 18:19: in the [place] morning. Medical Branch atogepant 2021-09 Yes 10mg Take 10 mg Un shine (QULIPTA) 1-15 by mouth ity of 10 mg Tab 18:19: daily. [place] Medical Branch tirzepatide 2021-09 Yes 5mg inject 5 Un shine (MOUNJARO) 1-15 mg under ity o f 5 mg/0.5 mL 18:19: the skin [place] PnIj 03 every 2 Medical (two) Branch weeks. levalbutero 2021-09 Yes .31mg Inhale Uni vers l 0.31 mg/3 1-15 0.31 mg 3 ity of mL 18:19: (three) [place] nebulizer 03 times Medical solution daily. Branch ranolazine 2021-09 Yes 1000mg Take 1,000 [facility] 500 mg 12 1-15 mg by ity of hr tablet 18:19: mouth in [place] 03 the Medical morning Branch and 1,000 mg in the evening. pantoprazol 2021-09 Yes 40mg Take 40 mg Univers e 40 mg EC 1-15 by mouth ity o f tablet 18:19: in the morning. Medical Branch atogepant 2021-09 Yes 10mg [...] mg 3 ity of mL 18:19: (three) [place] nebulizer 03 times Medical solution daily. Branch ranolazine 2021-09 Yes 1000mg Take 1,000 [facility] 500 mg 12 1-15 mg by ity of hr tablet 18:19: mouth in [place] the Medical morning Branch and 1,000 mg in the evening. pantoprazol 2021-09 Yes 40mg Take 40 mg Univers e 40 mg EC 1-15 by mouth ity o f tablet 18:19: in the [place] morning. Medical Branch atogepant 2021-09 Yes 10mg [...] mg 3 ity of mL 18:19: (three) [place] nebulizer 03 times Medical solution daily. Branch ranolazine 2021-09 Yes 1000mg Take 1,000 [facility] 500 mg 12 1-15 mg by ity of hr tablet 18:19: mouth in [place] the Medical morning Branch and 1,000 mg in the evening. pantoprazol 2021-09 Yes 40mg Take 40 mg Univers e 40 mg EC 1-15 by mouth ity o f tablet 18:19: in the [place] morning. Medical Branch atogepant 2021-09 Yes 10mg Take 10 mg Un shine (QULIPTA) 1-15 by mouth ity of 10 mg Tab 18:19: daily. [place] Medical Branch tirzepatide 2021-09 Yes 5mg inject 5 Un shine (MOUNJARO) 1-15 mg under ity o f 5 mg/0.5 mL 18:19: the skin [place] PnIj 03 every 2 Medical (two) Branch weeks. diltiazem 2021-09- No 240mg Take 240 Un shine 60 mg 1-15 11-11 mg by ity of tablet 18:19: 00:00 mouth. [place] 02 :00 [facility] Branch metoprolol 2021-09 Yes 25mg 25 mg, Unive rs succinate 1-15 Oral, ity of XL (TOPROL 15:00: DAILY, [place] XL) tablet 00 First dose Med ical 25 mg on [facility] 08/13/22 at 0900, Until Discontinu ed, Routine ranolazine 2021-09 Yes 1000mg 1,000 mg, Univers (RANEXA) 12 -15 Oral, ity of hr tablet 14:00: Q12H, [place] 1,000 mg 00 First dose Medic al on [facility] 08/13/22 at 0800, Until Discontinu ed, Routine cefTRIAXone 2021-09 No 1000mg 1,000 mg, Univers (ROCEPHIN) -14 08-17 Intravenou it y of 1,000 mg in 23:30: 23:29 s, Q24H [place] NaCl 0.9% 00 :00 ABX, 5 Medical (NS) 50 mL doses, Branch MINI-BAG First dose on 08/12/22 at 1730, Last dose on Fri08/16/22 at 1730, Administer over 30 Minutes, 50 mL
Reas on for Anti-Infec tive: Documented Infection< br>Documen katerin Infection Site: Respirator y
Durat ion of Therapy: Other (see Comments) azithromyci 2021-09- No 500mg 500 mg, U nivers n -14 -19 Oral, ity of (ZITHROMAX) 23:00: 14:59 DAILY, 5 [place] tablet 500 00 :00 doses, Medical mg First dose Branch on 08/12/22 at 1700, Last dose on Fri08/16/22 at 0900, NAIF
Re ason for Anti-Infec tive: Documented Infection< br>Documen katerin Infection Site: Respirator y
Durat ion of Therapy: Other (see Comments) diphenhydrA 2021-09 No 25mg 25 mg, Uni vers MINE 10-12 Intravenou ity of (BENADRYL) 04:00: 03:17 s, ONCE, 1 [place] injection 00 :00 dose, On Medica l 25 mg [facility] 08/11/22 at 2200, Routine fluticasone 2021-09 Yes 1{puff} 1 Puff, Univers propion-sylvia 10-12 Inhalation it y of meteroL 02:00: , Q12H, [place] (ADVAIR) 00 First dose Medic al 250-50 on [facility] mcg/dose 08/11/22 inhalation at 2000, disk 1 Puff Until Discontinu ed, Routine vancomycin 2021-09 No 15mg/kg 1,500 mg Univers (VANCOCIN) 10-12 (rounded ity of 1,500 mg in 01:45: 07:21 from 1,941 [place] NaCl 0.9% 00 :00 mg = 15 Medical (NS) 500 mL mg/kg Branch VIAL-MATE ?129.4 IV kg), IV piggyback Piggyback, Q24H ABX, 1 dose, First dose (after last reorder) on [place] 08/11/22 at 1945, Administer over 240 Minutes, 500 mL
Reas on for Anti-Infec tive: Documented Infection< br>Documen katerin Infection Site: Blood
D uration of Therapy: 7 days ipratropium 2021-09 Yes 3mL 3 mL, Unive rs -albuteroL 10-11 Inhalation ity of (DUONEB) 21:45: , QIDPRN, [place] 0.[place] mg-3 00 Starting Medical mg(2.5 mg on [facility])/3 mL 08/11/22 nebulizer at 1545, solution 3 Until mL Discontinu ed, Routine, Wheezing enoxaparin 2021-09 Yes 40mg 40 mg, Unive rs (LOVENOX) 10-11 Subcutaneo ity of injection 14:00: us, Q24H, [place] as 40 mg 00 First dose Medical [facility] 08/11/22 at 0800, Until Discontinu ed, Routine lactated 2021-09- No 250mL at 999 Unive rs ringers IV 10-11 11-14 mL/hr, 250 it y of infusion 13:45: 01:40 mL, [place] 250 mL 00 :00 Intravenou Medical s, ONCE, 1 Branch dose, On [place] 08/11/22 at 0745, Routine lactated 2021-09 No 250mL at 999 Unive rs ringers IV 10-1113 mL/hr, 250 it y of infusion 12:15: 12:31 mL, [place] 250 mL 00 :00 Intravenou Medical s, ONCE, 1 Branch dose, On [place] 08/11/22 at 0615, Routine potassium 2021-09 No 20meq 20 mEq, IV [facility] chloride in 10-11 Piggyback, i ty of water (KCL) 10:00: 12:01 ONCE, 1 [place] 20 mEq/100 00 :00 dose, On Medic al mL RTU [facility] 20 mEq 08/11/22 at 0400, 100 mL potassium 2021-09 No 20meq 20 mEq, IV [facility] chloride in 10-11 Piggyback, i ty of water (KCL) 08:00: 09:37 ONCE, 1 [place] 20 mEq/100 00 :00 dose, On Medic al mL RTU [facility] 20 mEq 08/11/22 at 0200, 100 mL mirtazapine 2021-09 Yes 7.5mg 7.5 mg, Un [place] (REMERON) 10-11 Oral, QHS, ity of tablet 7.5 03:00: First dose [place] mg 00 on [facility] 08/10/22 Branch at 2100, Until Discontinu ed, Routine furosemide 2021-09- No 40mg 40 mg, Univ ers (LASIX) 10-11 Slow IV ity of injection 02:00: 02:42 Push, [place] 40 mg 00 :00 ONCE, 1 Medical dose, On Branch [facility] 08/10/22 at 2000, Routine iopamidol 2021-09- No [id number] 100mL 100 mL, Univers (ISOVUE 10-10 Intravenou ity o f 370-500 mL) 19:00: 19:00 s, ONCE, 1 [place] injection 00 :00 dose, On Medica l 100 mL Sat Branch 08/10/22 at 1300, Routine heparin 2021-09- No 5000U 5,000 Univers 1000 10-10 Units, IV ity of unit/mL 17:30: 18:29 Push, [place] injection 00 :00 ONCE, 1 Medical Soln 5,000 dose, On Branc h Units 08/10/22 at 1130, Routine heparin 2021-09- No 0U/h 0-3,500 Univer s 25,000 10-1013 Units/hr ity of Units/250 17:27: 06:30 (0-35 [...] INITIAL INFUSION RATE.&nbsp ; _ &nb sp;FOR [facility], [facility], AND [facility] ONLY - aPTT < 35: & nbsp;Bolus [...] heparin 2021-09 Yes 3000U FOR Univers (1,000 10-10 REBOLUSING ity of unit/mL, 10 17:15: , Starting [place] mL vial) 44 on [facility] Medical 08/10/22 Branch at 1115, Until Discontinu ed, Routine
Dosing based on aPTT testing parameters (refer to continuous heparin drip order)
vancomycin 2021-09 No 15mg/kg 1,500 mg Univers (VANCOCIN) 10-10 (rounded ity of 1,500 mg in 16:00: 20:49 from 1,941 [place] NaCl 0.9% 00 :00 mg = 15 Medical (NS) 500 mL mg/kg Branch VIAL-MATE ?129.4 IV kg), IV piggyback Piggyback, Q24H ABX, 1 dose, First dose (after last reorder) on [facility] 08/10/22 at 1000, Administer over 240 Minutes, 500 mL
Reas on for Anti-Infec tive: Documented Infection< br>Documen katerin Infection Site: Blood
D uration of Therapy: 7 days diphenhydrA 2021-09 No 25mg 25 mg, Uni vers MINE 10-10 Intravenou ity of (BENADRYL) 15:45: 16:39 s, ONCE, 1 [place] injection 00 :00 dose, On Medica l 25 mg [facility] Branch 08/10/22 at 0945, Routine furosemide 2021-09 No 40mg 40 mg, Univ ers (LASIX) 10-10 Slow IV ity of injection 10:00: 10:23 Push, [place] 40 mg 00 :00 ONCE, 1 Medical dose, On Branch [facility] 08/10/22 at 0400, Routine sodium 2021-09- No 4mL 4 mL, Univers chloride 7% 10-10 Inhalation i ty of (HYPER-SYLVIA) 07:30: 01:40 , DAILY, [place] nebulizer 00 :11 First dose Medi jeanette solution 4 on Sat Branch mL 08/10/22 at 0130, Until Discontinu ed, Routine proCHLORper 2021-09 No 5mg 5 mg, IV U nivers azine 10-10 Piggyback, ity of (COMPAZINE) 03:45: 05:31 at 100 [place] as 5 mg in 00 :00 mL/hr Medical NaCl 0.9% Administer Bran ch (NS) over 30 piggyback Minutes, ONCE, 1 dose, On Fri08/09/22 at 2145, Routine enoxaparin 2021-09 No 40mg 40 mg, Univ ers (LOVENOX) 10-09 Subcutaneo ity of injection 23:00: 17:16 us, DAILY, [place] 40 mg 00 :11 First dose Medical on Fri Branch 08/09/22 at 1700, Until Discontinu ed, Routine meropenem 2021-09 No 2000mg 2,000 mg, Univers (MERREM) 10-09 IV ity of 2,000 mg in 22:30: 22:17 Piggyback, [place] NaCl 0.9% 00 :44 Q8H ABX, Medica l (NS) 100 mL 30 doses, [facility] IV First dose piggyback (after last modificati on) on Fri08/09/22 at 1630, Last dose on Fri08/19/22 at 0830, Administer over 3 Hours, 100 mL
Rest ricted use approved by: [address] FLOOR
R porfirio for Anti-Infec tive: Empiric Therapy for Suspected Infection< br>Empiric Therapy Site: Blood
D uration of therapy: 5 days vancomycin 2021-09 No 15mg/kg 1,500 mg Univers (VANCOCIN) 10-09 (rounded ity of 1,500 mg in 22:15: 06:43 from 1,941 [place] NaCl 0.9% 00 :00 [...] y of (DUONEB) 22:00: 21:40 , QID, [place] 0.5 mg-3 00 :48 First dose Medic al mg(2.5 mg on Fri Branch base)/3 mL 08/09/22 nebulizer at 1600, solution 3 Until mL Discontinu ed, Routine diphenhydrA 2021-09- No 25mg 25 mg, Uni vers MINE 10-09 Intravenou ity of (BENADRYL) 21:30: 02:35 s, ONCE, 1 [place] injection 00 :00 dose, On Medica l 25 mg Fri Branch 08/09/22 at 1530, NAIF lactated 2021-09 Yes 1000mL at 50 Univer s ringers IV 1-11 mL/hr, ity of infusion 18:30: 1,000 mL, [place] 1,000 mL 00 IV Medical Infusion, Branch CONTINUOUS , Starting on Fri08/09/22 at 1230, Until Discontinu ed, Routine phenylephri 2021-09 No .5ug/kg 0.5-6 U nivers ne -11 11-15 /min mcg/kg/min ity of (VAZCULEP) 17:48: 01:40 [...] dose, contact prescriber .
sulfur 2021-09- No [id number] 5mL 5 mL, Unive rs hexafluorid 10-09 Intravenou i ty of e microsphr 17:15: 16:30 s, ONCE, 1 [place] (LUMASON) 00 :00 dose, On Medica l injection 5 Fri Branch mL 08/09/22 at 1115, Routine
direct support staff member approving Restricted medication : MOTMARA, AFAQ lidocaine 2021-09 No 5mL 5 mL, Univer s 1% (PF) 10-09 Subcutaneo ity o f (XYLOCAINE) 16:15: 17:30 us, ONCE, [place] injection 5 00 :00 1 dose, On Me dical mL Fri Branch 08/09/22 at 1015, Routine NaCl 0.9% 2021-09 Yes 10mL 10 mL, Univer s (NS) 10-09 Slow IV ity of injection 16:13: Push, [...] of 2,000 mg in 14:30: 17:15 Piggyback, [place] NaCl 0.9% 00 :00 ONCE, 1 Medical [...] ity of bolus 12:00: PRN - SEE [place] infusion 57 INSTRUCTIO Medic al 250 mL [...] Yes 650mg 650 mg, Un shine en 11 Oral, ity of (TYLENOL) 11:24: Q6HPRN, [place] tablet 650 27 Starting Medic al mg on Fri Branch 08/09/22 at 0524, Until Discontinu ed, Routine, Pain (scale 1-3) ondansetron 2021-09 4mg 4 mg, Slow Univers (ZOFRAN 10-09 IV Push, ity of (PF)) 09:00: 09:00 ONCE, 1 [place] injection 4 00 :00 dose, On Medi jeanette mg Fri Branch 08/09/22 at 0300, NAIF ranolazine 2021-09 Yes 1000mg Take 1,000 Univers 500 mg 12 1-11 mg by ity of hr tablet 08:23: mouth in [place] [address] the Medical morning Branch and 1,000 mg in the evening. pantoprazol 2021-09 Yes 40mg Take 40 mg Univers e 40 mg EC 1-11 by mouth ity o f tablet 08:23: in the [place] [address] morning. [facility] Branch atogepant 2021-09 Yes 10mg Take 10 mg Un shine (QULIPTA) 1-11 by mouth ity of 10 mg Tab 08:23: daily. [address] tirzepatide 2021-09 Yes 5mg inject 5 Un shine (MOUNJARO) 1-11 mg under ity o f 5 mg/0.5 mL 08:23: [place] PnIj 45 every 2 Medical (two) Branch weeks. ranolazine 2021-09 Yes 1000mg Take 1,000 Univers 500 mg 12 1-11 mg by ity of hr tablet 08:23: mouth in [place] [address] the Medical morning Branch and 1,000 mg in the evening. pantoprazol 2021-09 Yes 40mg Take 40 mg Univers e 40 mg EC 1-11 by mouth ity o f tablet 08:23: in the [place] [address] morning. [facility] Branch atogepant 2021-09 Yes 10mg Take 10 mg Un shine (QULIPTA) 1-11 by mouth ity of 10 mg Tab 08:23: daily. [address] tirzepatide 2021-09 Yes 5mg inject 5 Un shine (MOUNJARO) 1-11 mg under ity o f 5 mg/0.5 mL 08:23: the skin [place] PnIj 45 every 2 Medical (two) Branch weeks. NaCl 0.9% 2021-09 No 1000mL at 999 Uni vers (NS) IV 10-09 mL/hr, ity of infusion 07:30: 12:01 Intravenou [place] 1,000 mL 00 :21 s, Medical CONTINUOUS Branch , Starting on Fri08/09/22 at 0130, Until Fri08/09/22 at 0601, Routine doxepin 10 2021-09- No 10mg Take 10 mg Univers mg capsule 10-09 by mouth. ity of 05:38: 00:00 [place] 39 :00 Medical Branch Venlafaxine 2021-09 No Take by Un shine 225 mg TR24 10-09 mouth. ity o f 05:37: 00:00 [place] 51 :00 Medical Branch lurasidone 2021-09- No Take by Uni vers (LATUDA) 20 10-09 mouth. ity o f mg tablet 05:37: 00:00 [place] 36 :00 Medical Branch levalbutero 2021-09 Yes .31mg Inhale Uni vers l 0.31 mg/3 10-09 0.31 mg 3 ity of mL 04:35: (three) [place] nebulizer 17 times Medical solution daily. Branch levalbutero 2021-09 Yes .31mg Inhale Uni vers l 0.31 mg/3 10-09 0.31 mg 3 ity of mL 04:35: (three) [place] nebulizer 17 times Medical solution daily. Branch ondansetron 2021-09 No 4mg 4 mg, Slow Univers (ZOFRAN [...] Max[place] 08/08/22 at 1945, STAT morpHINE (2 2021-09- No 2mg 2 mg, Slow Univers mg/mL) 10-09 IV Push, ity of injection 2 01:45: 02:37 ONCE, 1 [place] mg 00 :00 dose, On [facility] [place] 08/08/22 at 1945, STAT Nitroglycer 2021-09 Yes APPLY 1 Darlene sey in 0.4 0-31 TRANSDERMA [facility] MG/HR 00:00: L PATCH - transdermal 00 ONCE DAILY Ex t[place] PATCH 24 HR l Nitroglycer 2021-09 Yes APPLY 1 Darlene sey in 0.4 0-31 TRANSDERMA [facility] MG/HR 00:00: L PATCH - transdermal 00 ONCE DAILY Ex terna PATCH 24 HR l Nitroglycer 2021-09 Yes APPLY 1 Darlene sey in 0.4 0-31 TRANSDERMA [facility] MG/HR 00:00: L PATCH - transdermal 00 ONCE DAILY Ex terna PATCH 24 HR l Nitroglycer 2021-09 Yes APPLY 1 Darlene sey in 0.4 0-31 TRANSDERMA [facility] MG/HR 00:00: L PATCH - transdermal 00 ONCE DAILY Ex terna PATCH 24 HR l Nitroglycer 2021-09 Yes APPLY 1 Darlene sey in 0.4 0-31 TRANSDERMA [facility] MG/HR 00:00: L PATCH - transdermal 00 ONCE DAILY Ex terna PATCH 24 HR l Nitroglycer 2021-09 Yes APPLY 1 Darlene sey in 0.4 0-31 TRANSDERMA [facility] MG/HR 00:00: L PATCH - transdermal 00 ONCE DAILY Ex terna PATCH 24 HR l Nitroglycer 2021-09 Yes APPLY 1 Darlene sey in 0.4 0-31 TRANSDERMA [facility] MG/HR 00:00: L PATCH - transdermal 00 ONCE DAILY Ex terna PATCH 24 HR l Nitroglycer 2021-09 Yes APPLY 1 Darlene sey in 0.4 0-31 TRANSDERMA [facility] MG/HR 00:00: L PATCH - transdermal 00 ONCE DAILY Ex terna PATCH 24 HR l Nitroglycer 2021-09 Yes APPLY 1 Darlene sey in 0.4 0-31 TRANSDERMA [facility] MG/HR 00:00: L PATCH - transdermal 00 ONCE DAILY Ex terna PATCH 24 HR l Nitroglycer 2021-09 Yes APPLY 1 Darlene sey in 0.4 0-31 TRANSDERMA [facility] MG/HR 00:00: L PATCH - transdermal 00 ONCE DAILY Ex terna PATCH 24 HR l Nitroglycer 2021-09 Yes APPLY 1 Darlene sey in 0.4 0-31 TRANSDERMA [facility] MG/HR 00:00: L PATCH - transdermal 00 ONCE DAILY Ex terna PATCH 24 HR l XARELTO 2.5 2021-09 Yes 2.5mg Take 2.5 U nivers mg tablet 0-31 mg by ity of 00:00: mouth (two) Medical times Branch daily. XARELTO 2.5 2021-09 Yes 2.5mg Take 2.5 U nivers mg tablet 0-31 mg by ity of 00:00: mouth (two) Medical times Branch daily. XARELTO 2.5 2021-09 Yes 2.5mg Take 2.5 U nivers mg tablet 0-31 mg by ity of 00:00: mouth (two) Medical times Branch daily. XARELTO 2.5 2021-09 Yes 2.5mg Take 2.5 U nivers mg tablet 0-31 mg by ity of 00:00: mouth (two) Medical times Branch daily. XARELTO 2.5 2021-09 Yes 2.5mg Take 2.5 U nivers mg tablet 0-31 mg by ity of 00:00: mouth (two) Medical times Branch daily. XARELTO 2.5 2021-09 Yes 2.5mg Take 2.5 U nivers mg tablet 0-31 mg by ity of 00:00: mouth (two) Medical times Branch daily. XARELTO 2.5 2021-09 Yes 2.5mg Take 2.5 U nivers mg tablet 0-31 mg by ity of 00:00: mouth (two) Medical times Branch daily. XARELTO 2.5 2021-09 Yes 2.5mg Take 2.5 U nivers mg tablet 0-31 mg by ity of 00:00: mouth (two) Medical times Branch daily. Nitroglycer 2021-09- No APPLY 1 [place] in 0.4 0-31 06-12 TRANSDERMA Seybol d MG/HR 00:00: 00:00 L PATCH - transdermal 00 :00 ONCE DAILY Ex terna PATCH 24 HR l Nitroglycer 2021-09- No APPLY 1 [place] in 0.4 031 06-12 TRANSDERMA Seybol d MG/HR 00:00: 00:00 L PATCH - transdermal 00 :00 ONCE DAILY Ex terna PATCH 24 HR l isosorbide 2021-09 Yes 60mg Take 60 mg [...] every [place] tablet 00 morning. Medical Branch diltiazem 2021-09 No 240mg QD Take 1 [facility] (TIAZAC) 0-08-[address] 240 MG 24 00:00: 00:00 (240 [facility] capsule 00 :00 total) by l mouth daily. diltiazem 2021-09 No 240mg QD Take 1 [facility] (TIAZAC) 0-29 -[address] 240 MG 24 00:00: 00:00 (240 mg [facility] capsule 00 :00 total) by l mouth daily. diltiazem 2021-09 No 240mg QD Take 1 [facility] (TIAZAC) 0-29 -[address] 240 MG 24 00:00: 00:00 (240 mg [facility] capsule 00 :00 total) by l mouth daily. diltiazem 2021-09 No 240mg QD Take 1 [facility] (TIAZAC) 0-29 -[address] 240 MG 24 00:00: 00:00 (240 mg [facility] capsule 00 :00 total) by l mouth daily. diltiazem 2021-09 No 240mg QD Take 1 [facility] (TIAZAC) 0-[address] 240 MG 24 00:00: 00:00 (240 mg [facility] capsule 00 :00 total) by l mouth daily. diltiazem 2021-09 No 240mg QD Take 1 [facility] (TIAZAC) 0- capsule st 240 MG 24 00:00: 00:00 (240 mg [facility] capsule 00 :00 total) by l mouth daily. diltiazem 2021-09 No 240mg QD Take 1 [facility] (TIAZAC) 0- capsule st 240 MG 24 00:00: 00:00 (240 mg [facility] capsule 00 :00 total) by l mouth daily. diltiazem 2021-09 No 240mg QD Take 1 [facility] (TIAZAC) 0-[address] 240 MG 24 00:00: 00:00 (240 mg [facility] capsule 00 :00 total) by l mouth daily. diltiazem 2021-09 No 240mg QD Take 1 [facility] (TIAZAC) 0-29 -[address] 240 MG 24 00:00: 00:00 (240 mg [facility] capsule 00 :00 total) by l mouth daily. diltiazem 2021-09 No 240mg QD Take 1 [facility] (TIAZAC) 0-29 -[address] 240 MG 24 00:00: 00:00 (240 mg [facility] capsule 00 :00 total) by l mouth daily. diltiazem 2021-09- No 240mg QD Take 1 [facility] (TIAZAC) 0- capsule st 240 MG 24 00:00: 00:00 (240 mg [facility] capsule 00 :00 total) by l mouth daily. diltiazem 2021-09- No 240mg QD Take 1 [facility] (TIAZAC) 008-[address] 240 MG 24 00:00: 00:00 (240 mg [facility] capsule 00 :00 total) by l mouth daily. diltiazem 2021-09- No 240mg QD Take 1 [facility] (TIAZAC) 08-[address] 240 MG 24 00:00: 00:00 (240 mg [facility] capsule 00 :00 total) by l mouth daily. diltiazem 2021-09- No 240mg QD Take 1 [facility] (TIAZAC) 08-[address] 240 MG 24 00:00: 00:00 (240 mg [facility] capsule 00 :00 total) by l mouth daily. diltiazem 2021-09- No 240mg QD Take 1 [facility] (TIAZAC) 08-[address] 240 MG 24 00:00: 00:00 (240 mg [facility] capsule 00 :00 total) by l mouth daily. diltiazem 2021-09 No 240mg QD Take 1 [facility] (TIAZAC) 08-[address] 240 MG 24 00:00: 00:00 (240 mg [facility] capsule 00 :00 total) by l mouth daily. diltiazem 2021-09- No 240mg QD Take 1 [facility] (TIAZAC) 08-[address] 240 MG 24 00:00: 00:00 (240 mg [facility] capsule 00 :00 total) by l mouth daily. fluvastatin 2022- No 20mg Take [address] [facility] (LESCOL) 20 9- 05-12 capsule [facility] MG capsule 00:00: 00:00 (20 mg Medi jeanette 00 :00 total) by Center mouth. fluvastatin 2022- No 20mg Take [address] [facility] (LESCOL) 20 9- 05-12 capsule Luke s MG capsule 00:00: 00:00 (20 mg Medi jeanette 00 :00 total) by Center mouth. fluvastatin 2021-0 2022- No 20mg Take [address] [facility] (LESCOL) 20 9- 05-12 capsule Luke s MG capsule 00:00: 00:00 (20 mg Medi jeanette 00 :00 total) by Center mouth. 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 Medica l Branch metoprolol 2021-0 Yes 25mg Take 25 mg U nivers succinate 8-12 by mouth ity of XL 25 mg 24 00:00: [place] tablet 00 morning. Medica l Branch metoprolol 2021-0 Yes 25mg Take 25 mg U nivers succinate 8-12 by mouth ity of XL 25 mg 24 00:00: [place] tablet 00 morning. Medica l Branch metoprolol 2021-0 Yes 25mg Take 25 mg U nivers succinate 8-12 by mouth ity of XL 25 mg 24 00:00: [place] tablet 00 morning. Medica l Branch metoprolol 2-0 Yes 25mg Take 25 mg U nivers succinate 8-12 by mouth ity of XL 25 mg 24 00:00: [place] tablet 00 morning. Medica l Branch metoprolol 2-0 Yes 25mg Take 25 mg U nivers succinate 8-12 by mouth ity of XL 25 mg 24 00:00: [place] tablet 00 morning. Medica l Branch metoprolol 2021-0 Yes 25mg Take 25 mg U nivers succinate 8-12 by mouth ity of XL 25 mg 24 00:00: [place] tablet 00 morning. Medica l Branch metoprolol 0 Yes 25mg Take 25 mg U nivers succinate 8-12 by mouth ity of XL 25 mg 24 00:00: [place] tablet 00 morning. Medica l Branch rivaroxaban 2022- No 2.5mg Q.5D Take [address] [facility] [address] [facility] (Xarelto) 05-10 [facility] 2.5 mg 00:00: 00:00 (2.5 mg Medical tablet 00 :00 total) by Center mouth in the morning and 1 tablet (2.5 mg total) before bedtime. rivaroxaban 2021-2022- No 2.5mg Q.5D Take [address] (Xarelto) 05-10 tablet [facility] 2.5 mg 00:00: 00:00 (2.5 mg Medical tablet 00 :00 total) by Center mouth in the morning and 1 tablet (2.5 mg total) before bedtime. rivaroxaban 2021-2022- No 2.5mg Q.5D Take [address] (Xarelto) 05-10 tablet [facility] 2.5 mg 00:00: 00:00 (2.5 mg Medical tablet 00 :00 total) by Center mouth in the morning and 1 tablet (2.5 mg total) before bedtime. Rivaroxaban 2021-2022- No 2.5mg 1 tablet Julissa 2.5 MG oral 05-09 (2.5 mg Seyb old Tablet 00:00: 00:00 total) - 00 :00 every 12 Externa hours l mirtazapine 2021-2022- No 7.5mg QD Take [address] [facility] [address] (REMERON) 04-11 tablet [facility] 7.5 MG 00:00: 00:00 (7.5 mg Medical tablet 00 :00 total) by Center mouth nightly. mirtazapine 2021-2022- No 7.5mg QD Take [address] (REMERON) 7-14 05-06 tablet [facility] 7.5 MG 00:00: 00:00 (7.5 mg Medical tablet 00 :00 total) by Center mouth nightly. mirtazapine 2021-0 3- No 7.5mg QD Take [address] (REMERON) 7-14 05-06 tablet [facility] 7.5 MG 00:00: 00:00 (7.5 mg Medical tablet 00 :00 total) by Center mouth nightly. lamoTRIgine 2-0 Yes 50mg QD Take [address] [facility] (LAMICTAL 5-02 tablet (50 Luke s XR) 50 mg 00:00: mg total) Med ical 24 hr 00 by mouth Center tablet in the morning. lamoTRIgine 2-0 Yes 50mg QD Take [address] [facility] (LAMICTAL 5-02 tablet (50 Luke s XR) 50 mg 00:00: mg total) Med ical 24 hr 00 by mouth Center tablet in the morning. lamoTRIgine 2-0 Yes 50mg QD Take [address] [facility] (LAMICTAL 5-02 tablet (50 Luke s XR) 50 mg 00:00: mg total) Med ical 24 hr 00 by mouth Center tablet daily. Furosemide 2021-0 Yes 20mg Take 20 mg K elsey 20 MG oral 4-11 by mouth Seybo ld Tablet 00:00: daily - 00 Externa l Potassium 2-0 Yes 10meq Take 10 Ava ey Chloride CR 4-11 mEq by Seybol d 10 MEQ oral 00:00: mouth - Cap CR 00 Externa l Furosemide 2-0 Yes 20mg Take 20 mg K elsey 20 MG oral 4-11 by mouth Seybo ld Tablet 00:00: daily - 00 Externa l Potassium 2-0 Yes 10meq Take 10 Ava ey Chloride CR 4-11 mEq by Seybol d 10 MEQ oral 00:00: mouth - Cap CR 00 Externa l Furosemide 2-0 Yes 20mg Take 20 mg K elsey 20 MG oral 4-11 by mouth Seybo ld Tablet 00:00: daily - 00 Externa l Potassium 2022-0 Yes 10meq Take 10 Ava ey Chloride CR 4-11 mEq by Seybol d 10 MEQ oral 00:00: mouth - Cap CR 00 Externa l Furosemide 2021-0 Yes 20mg Take 20 mg K elsey 20 MG oral 4-11 by mouth Seybo ld Tablet 00:00: daily - 00 Externa l Potassium 2-0 Yes 10meq Take 10 Ava ey Chloride CR 4-11 mEq by Seybol d 10 MEQ oral 00:00: mouth - Cap CR 00 Externa l Furosemide 2021-0 Yes 20mg Take 20 mg K elsey 20 MG oral 4-11 by mouth Seybo ld Tablet 00:00: daily - 00 Externa l Potassium 2021-0 Yes 10meq Take 10 Ava ey Chloride CR 4-11 mEq by Seybol d 10 MEQ oral 00:00: mouth - Cap CR 00 Externa l Furosemide 2021-0 Yes 20mg Take 20 mg K elsey 20 MG oral 4-11 by mouth Seybo ld Tablet 00:00: daily - 00 Externa l Potassium 2021-0 Yes 10meq Take 10 Ava ey Chloride CR 4-11 mEq by Seybol d 10 MEQ oral 00:00: mouth - Cap CR 00 Externa l Furosemide 2021-0 Yes 20mg Take 20 mg K elsey 20 MG oral 4-11 by mouth Seybo ld Tablet 00:00: daily - 00 Externa l Potassium 2021-0 Yes 10meq Take 10 Ava ey Chloride CR 4-11 mEq by Seybol d 10 MEQ oral 00:00: mouth - Cap CR 00 Externa l Furosemide 2021-0 Yes 20mg Take 20 mg K elsey 20 MG oral 4-11 by mouth Seybo ld Tablet 00:00: daily - 00 Externa l Potassium 2-0 Yes 10meq Take 10 Ava ey Chloride CR 4-11 mEq by Seybol d 10 MEQ oral 00:00: mouth - Cap CR 00 Externa l Furosemide 2021-0 Yes 20mg Take 20 mg K elsey 20 MG oral 4-11 by mouth Seybo ld Tablet 00:00: daily - 00 Externa l Potassium 2-0 Yes 10meq Take 10 Ava ey Chloride CR 4-11 mEq by Seybol d 10 MEQ oral 00:00: mouth - Cap CR 00 Externa l Furosemide 2021-0 Yes 20mg Take 1 Kelse y 20 MG oral 4-11 tablet (20 Sey bold Tablet 00:00: mg total) - 00 by mouth Externa daily l Potassium 2-0 Yes 10meq Take 1 Kelse [facility] Chloride CR 4-11 capsule Seybo ld 10 MEQ oral 00:00: (10 mEq - Cap CR 00 total) by Externa mouth l Potassium 2-0 Yes 10meq Take 1 Kelse y Chloride CR 4-11 capsule Seybo ld 10 MEQ oral 00:00: (10 mEq - Cap CR 00 total) by Externa mouth 2 l times daily diltiazem 2-0 Yes 180mg Take 180 Uni vers (CARDIZEM 2-22 mg by ity of CD) 180 mg 00:00: mouth [place] 24 hr 00 every 24 Medical capsule (twenty-fo Branch ur) hours. diltiazem 2-0 Yes 180mg Take 180 Uni vers (CARDIZEM 2-22 mg by ity of CD) 180 mg 00:00: mouth [place] 24 hr 00 every 24 Medical capsule (twenty-fo Branch ur) hours. diltiazem 2-0 Yes 180mg Take 180 Uni vers (CARDIZEM 2-22 mg by ity of CD) 180 mg 00:00: mouth [place] 24 hr 00 every 24 Medical capsule (twenty-fo Branch ur) hours. diltiazem 2-0 Yes 180mg Take 180 Uni vers (CARDIZEM 2-22 mg by ity of CD) 180 mg 00:00: mouth [place] 24 hr 00 every 24 Medical capsule (twenty-fo Branch ur) hours. diltiazem 2-0 Yes 180mg Take 180 Uni vers (CARDIZEM 2-22 mg by ity of CD) 180 mg 00:00: mouth [place] 24 hr 00 every 24 Medical capsule (twenty-fo Branch ur) hours. diltiazem 2022-0 Yes 180mg Take 180 Uni vers (CARDIZEM 2-22 mg by ity of CD) 180 mg 00:00: mouth [place] 24 hr 00 every 24 Medical capsule (twenty-fo Branch ur) hours. diltiazem 2022-0 Yes 180mg Take 180 Uni vers (CARDIZEM 2-22 mg by ity of CD) 180 mg 00:00: mouth [place] 24 hr 00 every 24 Medical capsule (twenty-fo Branch ur) hours. diltiazem 2022-0 Yes 180mg Take 180 Uni vers (CARDIZEM 2-22 mg by ity of CD) 180 mg 00:00: mouth [place] 24 hr 00 every 24 Medical capsule (twenty-fo Branch ur) hours. Metoclopram 2022- No 10mg Take 10 mg Julissa norberto HCl 10 2-18 -10 by mouth Seyb old MG oral 00:00: 00:00 as needed - Tablet 00 :00 Externa l Albuterol Yes 2{puff} Q.25D Inhale 2 Julissa HFA 108 (90 2-03 puffs into Se [facility]) 00:00: the lungs - MCG/ACT IN 00 every 6 Naphthalene Operator a AERS hours as l needed. Albuterol Yes 2{puff} Q.25D Inhale 2 Julissa HFA 108 (90 2-03 puffs into Se [facility]) 00:00: the lungs - MCG/ACT IN 00 every 6 Naphthalene Operator a AERS hours as l needed. Albuterol Yes 2{puff} Q.25D Inhale 2 Julissa HFA 108 (90 2-03 puffs into Se [facility]) 00:00: the lungs - MCG/ACT IN 00 every 6 Naphthalene Operator a AERS hours as l needed. Albuterol Yes 2{puff} Q.25D Inhale 2 Julissa HFA 108 (90 2-03 puffs into [facility]) 00:00: the lungs - MCG/ACT IN 00 every 6 Naphthalene Operator a AERS hours as l needed. Albuterol Yes 2{puff} Q.25D Inhale 2 Julissa HFA 108 (90 2-03 puffs into [facility]) 00:00: the lungs - MCG/ACT IN 00 every 6 Naphthalene Operator a AERS hours as l needed. Albuterol Yes 2{puff} Q.25D Inhale 2 Julissa HFA 108 (90 2-03 puffs into [facility]) 00:00: the lungs - MCG/ACT IN 00 every 6 Naphthalene Operator a AERS hours as l needed. Albuterol Yes 2{puff} Q.25D Inhale 2 Julissa HFA 108 (90 2-03 puffs into [facility]) 00:00: the lungs - MCG/ACT IN 00 every 6 Naphthalene Operator a AERS hours as l needed. Albuterol Yes 2{puff} Q.25D Inhale 2 Julissa HFA 108 (90 2-03 puffs into [facility]) 00:00: the lungs - MCG/ACT IN 00 every 6 Naphthalene Operator a AERS hours as l needed. Albuterol Yes 2{puff} Q.25D Inhale 2 Julissa HFA 108 (90 2-03 puffs into [facility]) 00:00: the lungs - MCG/ACT IN 00 every 6 Naphthalene Operator a AERS hours as l needed. Albuterol Yes 2{puff} Q.25D Inhale 2 Julissa HFA 108 (90 2-03 puffs into [employer]) 00:00: the lungs - MCG/ACT IN 00 every 6 Naphthalene Operator a AERS hours as l needed Albuterol Yes 2{puff} Q.25D Inhale 2 Julissa HFA 108 (90 2-03 puffs into [employer]) 00:00: the lungs - MCG/ACT IN 00 every 6 Naphthalene Operator a AERS hours as l needed. Albuterol Yes 2{puff} Q.25D Inhale 2 Julissa HFA 108 (90 2-03 puffs into [employer]) 00:00: the lungs - MCG/ACT IN 00 every 6 Naphthalene Operator a AERS hours as l needed. Albuterol Yes 2{puff} Q.25D Inhale 2 Julissa HFA 108 (90 2-03 puffs into [employer]) 00:00: the lungs - MCG/ACT IN 00 every 6 Naphthalene Operator a AERS hours as l needed. Albuterol Yes 2{puff} Q.25D Inhale 2 Julissa HFA 108 (90 2-03 puffs into [employer]) 00:00: the lungs - MCG/ACT IN 00 every 6 Naphthalene Operator a AERS hours as l needed. Albuterol 0 Yes 2{puff} Q.25D Inhale 2 Julissa HFA 108 (90 2-03 puffs into [employer]) 00:00: the lungs - MCG/ACT IN 00 every 6 Naphthalene Operator a AERS hours as l needed Albuterol 0 Yes 2{puff} Q.25D Inhale 2 Julissa HFA 108 (90 2-03 puffs into [employer]) 00:00: the lungs - MCG/ACT IN 00 every 6 Naphthalene Operator a AERS hours as l needed Albuterol 2021-0 Yes 2{puff} Q.25D Inhale 2 Julissa HFA 108 (90 2-03 puffs into [employer]) 00:00: the lungs - MCG/ACT IN 00 every 6 Naphthalene Operator a AERS hours as l needed Albuterol 2-0 Yes 2{puff} Q.25D Inhale 2 Julissa HFA 108 (90 2-03 puffs into [employer]) 00:00: the lungs - MCG/ACT IN 00 every 6 Naphthalene Operator a AERS hours as l needed Albuterol 2021-0 Yes 2{puff} Q.25D Inhale 2 Julissa HFA 108 (90 2-03 puffs into [employer]) 00:00: the lungs - MCG/ACT IN 00 every 6 Naphthalene Operator a AERS hours as l needed Albuterol 2-0 Yes 2{puff} Q.25D Inhale 2 Julissa HFA 108 (90 2-03 puffs into [employer]) 00:00: the lungs - MCG/ACT IN 00 every 6 Naphthalene Operator a AERS hours as l needed Albuterol 2021-0 Yes 2{puff} Q.25D Inhale 2 Julissa HFA 108 (90 2-03 puffs into [employer]) 00:00: the lungs - MCG/ACT IN 00 every 6 Naphthalene Operator a AERS hours as l needed Albuterol 2-0 Yes 2{puff} Q.25D Inhale 2 Julissa HFA 108 (90 2-03 puffs into [employer]) 00:00: the lungs - MCG/ACT IN 00 every 6 Naphthalene Operator a AERS hours as l needed Albuterol 2-0 Yes 2{puff} Q.25D Inhale 2 Julissa HFA 108 (90 2-03 puffs into [employer]) 00:00: the lungs - MCG/ACT IN 00 every 6 Naphthalene Operator a AERS hours as l needed Albuterol 2-0 Yes 2{puff} Q.25D Inhale 2 Julissa HFA 108 (90 2-03 puffs into [employer]) 00:00: the lungs - MCG/ACT IN 00 every 6 Naphthalene Operator a AERS hours as l needed Albuterol 2021-0 Yes 2{puff} Q.25D Inhale 2 Julissa HFA 108 (90 2-03 puffs into [employer]) 00:00: the lungs - MCG/ACT IN 00 every 6 Naphthalene Operator a AERS hours as l needed Albuterol 2021-0 Yes 2{puff} Q.25D Inhale 2 Julissa HFA 108 (90 2-03 puffs into [employer]) 00:00: the lungs - MCG/ACT IN 00 every 6 Naphthalene Operator a AERS hours as l needed Albuterol 2021-0 Yes 2{puff} Q.25D Inhale 2 Julissa HFA 108 (90 2-03 puffs into [employer]) 00:00: the lungs - MCG/ACT IN 00 every 6 Naphthalene Operator a AERS hours as l needed Meloxicam 2-0 Yes 7.5mg Take 7.5 Darlene sey 7.5 MG oral 2-02 mg by [facility] Tablet 00:00: mouth as - 00 needed Externa l Nitroglycer 2-0 Yes SMARTSIG:S Julissa in 0.4 MG 2-02 ublingual Seybo ld sublingual 00:00: - SL Tab 00 Externa l Meloxicam 2-0 Yes 7.5mg Take 7.5 Darlene sey 7.5 MG oral 2-02 mg by [facility] Tablet 00:00: mouth as - 00 needed Externa l Nitroglycer 2-0 Yes SMARTSIG:Bambi Costa in 0.4 MG 2-02 ublingual Seybo ld sublingual 00:00: - SL Tab 00 Externa l Meloxicam 2-0 Yes 7.5mg Take 7.5 Darlene sey 7.5 MG oral 2-02 mg by [facility] Tablet 00:00: mouth as - 00 needed Externa l Nitroglycer 2022-0 Yes SMARTSIG:Bambi Costa in 0.4 MG 2-02 ublingual Seybo ld sublingual 00:00: - SL Tab 00 Externa l Meloxicam 2022-0 Yes 7.5mg Take 7.5 Darlene sey 7.5 MG oral 2-02 mg by [facility] Tablet 00:00: mouth as - 00 needed Externa l Nitroglycer 2021-0 Yes SMARTSIG:S Julissa in 0.4 MG 2-02 ublingual Seybo ld sublingual 00:00: - SL Tab 00 Externa l Meloxicam 2021-0 Yes 7.5mg Take 7.5 Darlene sey 7.5 MG oral 2-02 mg by Seybold Tablet 00:00: mouth as - 00 needed Externa l Nitroglycer 2021-0 Yes SMARTSIG:S Julissa in 0.4 MG 2-02 ublingual Seybo ld sublingual 00:00: - SL Tab 00 Externa l Meloxicam 2021-0 Yes 7.5mg Take 7.5 Darlene sey 7.5 MG oral 2-02 mg by [facility] Tablet 00:00: mouth as - 00 needed Externa l Nitroglycer 2021-0 Yes SMARTSIG:S Julissa in 0.4 MG 2-02 ublingual Seybo ld sublingual 00:00: - SL Tab 00 Externa l Meloxicam 2021-0 Yes 7.5mg Take 7.5 Darlene sey 7.5 MG oral 2-02 mg by [facility]bold Tablet 00:00: mouth as - 00 needed Externa l Nitroglycer 2021-0 Yes SMARTSIG:S Julissa in 0.4 MG 2-02 ublingual Seybo ld sublingual 00:00: - SL Tab 00 Externa l Meloxicam 2021-0 Yes 7.5mg Take 7.5 Darlene sey 7.5 MG oral 2-02 mg by Seybold Tablet 00:00: mouth as - 00 needed Externa l Nitroglycer 2021-0 Yes SMARTSIG:S Julissa in 0.4 MG 2-02 ublingual Seybo ld sublingual 00:00: - SL Tab 00 Externa l Meloxicam 2021-0 Yes 7.5mg Take 7.5 Darlene sey 7.5 MG oral 2-02 mg by [facility] Tablet 00:00: mouth as - 00 needed Externa l Nitroglycer 2021-0 Yes SMARTSIG:S Julissa in 0.4 MG 2-02 ublingual Seybo ld sublingual 00:00: - SL Tab 00 Externa l Meloxicam 2021-0 Yes 7.5mg Take 1 Kelse y 7.5 MG oral 2-02 tablet Seybol d Tablet 00:00: (7.5 mg - 00 total) by Externa mouth as l needed Nitroglycer Yes SMARTSIG:Bambi Costa in 0.4 MG 2-02 ublingual Seybo ld sublingual 00:00: - SL Tab 00 Externa l sertraline Yes 100mg Take [address] [facility] (ZOLOFT) 7-11 [facility] 100 MG 16:37: mouth. Medical tablet 23 [place] ranolazine Yes 1000mg Take 1,[address] [facility] (RANEXA) 7-11 mg by [facility] 500 MG 12 16:37: mouth. Medica l hr tablet 23 Center pregabalin Yes 100mg Take [address] (LYRICA) 7-11 mg by [facility] 100 MG 16:37: mouth. Medical capsule 23 [place] pantoprazol Yes 40mg Take [address] [facility] e 7-11 by mouth. [facility] (PROTONIX) 16:37: Medical 40 MG 23 Center tablet multivitami Yes 1{capsu Take [address] n per 7-11 le} capsule by [facility] tablet 16:37: mouth. [facility] 23 Center metFORMIN Yes 1{tbl} Take 1 [...] EC 7-11 by mouth. [facility] tablet 16:37: [facility] 23 Center carvediloL Yes 25mg Take [address] (COREG) 25 7-11 by mouth. Luke s MG tablet 16:37: [facility] 23 Center cholecalcif Yes 5000U Take 5,[address] aminah, 7-11 Units by [facility] vitamin D3, 16:37: mouth. Medi jeanette (VITAMIN 23 Center D3) 125 mcg (5,000 unit) capsule clomiPHENE Yes 25mg Take [address] (CLOMID) 50 7-11 by mouth. Glenna es mg tablet 16:37: Medical 23 [place] cyanocobala Yes 5000ug Place [facility] min, [...] 60 MG 16:37: mouth. Medical tablet 23 [place] fluticasone Yes 2{puff} Inhale [address] propion-sylvia 7-11 puffs by Luke s meteroL 16:37: mouth via Medic al (ADVAIR) 23 inhaler. [place] 250-50 mcg/dose diskus inhaler furosemide Yes 40mg Take [address] (LASIX) 40 7-11 by mouth. Luke s MG tablet 16:37: Medical 23 [place] levalbutero Yes 1{ampul Inhale [address] [facility] [facility] (XOPENEX) 7-11 e} ampule by Glenna es 1.25 mg/3 16:37: mouth via Med ical mL 23 inhaler. [place] nebulizer solution levalbutero Yes 1{puff} Inhale 1-[address] l (XOPENEX 7-11 puffs by [facility] HFA) 45 16:37: mouth via Medic al mcg/actuati 23 inhaler. [facility] er on inhaler sertraline Yes 100mg Take [...] le} capsule by [facility] tablet 16:37: mouth. [facility] 23 Center metFORMIN Yes 1{tbl} Take 1 [...] EC 7-11 by mouth. [facility] tablet 16:37: [address] carvediloL Yes 25mg Take [address] (COREG) 25 7-11 by mouth. Luke s MG tablet 16:37: [address] cholecalcif Yes 5000U Take 5,[address] aminah, 7-11 Units by [facility] vitamin D3, 16:37: mouth. Medi jeanette (VITAMIN 23 Center D3) 125 mcg (5,000 unit) capsule clomiPHENE Yes 25mg Take [address] (CLOMID) 50 7-11 by mouth. Glenna es mg tablet 16:37: [address] cyanocobala Yes 5000ug Place [facility] [...] 60 MG 16:37: mouth. Medical tablet 23 [place] fluticasone Yes 2{puff} Inhale [address] propion-sylvia 7-11 puffs by Luke s meteroL 16:37: mouth via Medic al (ADVAIR) 23 inhaler. [place] 250-50 mcg/dose diskus inhaler furosemide Yes 40mg Take [address] (LASIX) 40 7-11 by mouth. Luke s MG tablet 16:37: Medical 23 [place] levalbutero Yes 1{ampul Inhale [address] [facility] (XOPENEX) 7-11 e} ampule by [place]enna es 1.25 mg/3 16:37: mouth via Med ical mL 23 inhaler. [place] nebulizer solution levalbutero Yes 1{puff} Inhale 1-[address] [facility] (XOPENEX 7-11 puffs by [facility] HFA) 45 16:37: mouth via Medic al mcg/actuati 23 inhaler. Cent er on inhaler sertraline Yes 100mg Take [address] (ZOLOFT) 7-11 mg by [facility] 100 MG 16:37: mouth. Medical tablet 23 [place] ranolazine Yes 1000mg Take 1,[address] (RANEXA) 7-11 mg by [facility] 500 MG 12 16:37: mouth. Medica l hr tablet 23 [place] pregabalin Yes 100mg Take [address] (LYRICA) 7-11 mg by [facility] 100 MG 16:37: mouth. Medical capsule 23 [place] pantoprazol Yes 40mg Take [address] [facility] e 7-11 by mouth. [facility] (PROTONIX) 16:37: Medical 40 MG 23 [place] tablet multivitami Yes 1{capsu Take [address] n per 7-11 le} capsule by [facility] tablet 16:37: mouth. Medical 23 [place] metFORMIN Yes 1{tbl} Take [address] [facility] [...] EC 7-11 by mouth. [facility] tablet 16:37: [address] carvediloL Yes 25mg Take [address] (COREG) 25 7-11 by mouth. Luke s MG tablet 16:37: [address] cholecalcif Yes 5000U Take 5,[address] aminah, 7-11 Units by [facility] vitamin D3, 16:37: mouth. [facility] jeanette (VITAMIN 23 Center D3) 125 mcg (5,000 unit) capsule clomiPHENE Yes 25mg Take [address] (CLOMID) 50 7-11 by mouth. Glenna es mg tablet 16:37: [address] cyanocobala Yes 5000ug Place [facility] [...] mouth via Medic al (ADVAIR) 23 inhaler. [place] 250-50 mcg/dose diskus inhaler furosemide Yes 40mg Take [address] (LASIX) 40 7-11 by mouth. Luke s MG tablet 16:37: [address] levalbutero Yes 1{ampul Inhale [address] [facility] (XOPENEX) 7-11 e} ampule by Glenna es 1.25 mg/3 16:37: mouth via Med ical mL 23 inhaler. Center nebulizer solution levalbutero Yes 1{puff} Inhale 1-[address] [facility] (XOPENEX 7-11 puffs by [facility] HFA) 45 16:37: mouth via Medic al mcg/actuati 23 inhaler. Cent er on inhaler amitriptyli 2020- No 10mg QD Take [address] [facility] ne (ELAVIL) 04-0811 by mouth Glenna es 10 MG 15:25: 00:00 nightly. Medical tablet 26 :00 [place] amitriptyli 2020- No 10mg QD Take [address] [facility] ne (ELAVIL) 04-08 by mouth Glenna es 10 MG 15:25: 00:00 nightly. Medical tablet 26 :00 [place] cyanocobala Yes 5000ug QD Place Met preet min, 04-06 5,[address] vitamin 21:26: under the Hospi ta B-12, 5,000 46 tongue l mcg tablet, daily. sublingual pantoprazol Yes 40mg QD Take 40 mg Methodi e 7-[address] (PROTONIX) 21:26: daily. Hospi ta 40 MG EC 46 l tablet furosemide Yes 40mg Q24H Take 40 mg M ethodi (LASIX) 40 7-[address] mg tablet 21:26: daily as Hosp lew 46 needed l (for swelling). ARIPiprazol Yes 10mg QD Take 10 mg Methodi e (ABILIFY) 7-[address] 10 MG 21:26: nightly. Hospita disintegrat 46 l ing tablet cyanocobala Yes 5000ug QD Place Met min, 04-06 5,[address] vitamin 21:26: under the Hospi ta B-12, 5,000 46 tongue l mcg tablet, daily. sublingual pantoprazol 0 Yes 40mg QD Take 40 mg Methodi e 7-[address] (PROTONIX) 21:26: daily. Hospi ta 40 MG EC 46 l tablet furosemide Yes 40mg Q24H Take 40 mg M ethodi (LASIX) 40 7-[address] mg tablet 21:26: daily as Hosp lew 46 needed l (for swelling). ARIPiprazol 0 Yes 10mg QD Take 10 mg Methodi e (ABILIFY) 7-[address] 10 MG 21:26: nightly. Hospita disintegrat 46 l ing tablet ranolazine 0 Yes 1000mg Q.5D Take 1,000 Methodi (RANEXA) 7-[address] 500 MG 12 15:24: mouth 2 Hospi ta hr ER 53 (two) l tablet times a day. sertraline 0 Yes 100mg QD Take 100 Me thodi (ZOLOFT) 7-[address] 100 MG 15:24: mouth Hospita tablet 53 daily. l carvediloL Yes 25mg Q.5D Take 25 mg M ethodi (COREG) 25 7-[address] MG tablet 15:24: (two) Hospita 53 times a l day with meals. lisinopriL Yes 5mg QD Take 5 mg [facility] (PRINIVIL) 7-[address] 5 mg tablet 15:24: nightly. Ho spita 53 l atorvastati Yes 20mg QD Take 20 mg Methodi n (LIPITOR) 7-[address] 20 mg 15:24: nightly. Hospita tablet 53 Default OP l ins fluticasone Yes 2{puff} Q.5D Inhale 2 Methodi propion-sylvia 7-[address] meteroL 15:24: (two) Hospita (ADVAIR/ 53 times a l WIXELA day. INHUB) 250-50 mcg/dose DISKUS diltiazem 0 Yes 240mg QD Take 240 Met hodi (CardIZEM) 7-[address] 60 MG 15:24: mouth Hospita tablet 53 daily. l ranolazine 0 Yes 1000mg Q.5D Take 1,000 Methodi (RANEXA) 7-[address] 500 MG 12 15:24: mouth 2 Hospi ta hr ER 53 (two) l tablet times a day. sertraline 0 Yes 100mg QD Take 100 Me [facility] (ZOLOFT) 7-[address] 100 MG 15:24: mouth Hospita tablet 53 daily. l carvediloL 0 Yes 25mg Q.5D Take 25 mg M ethodi (COREG) 25 7-[address] MG tablet 15:24: (two) Hospita 53 times a l day with meals. lisinopriL 2020-0 Yes 5mg QD Take 5 mg [facility] (PRINIVIL) 7-[address] 5 mg tablet 15:24: nightly. Ho spita 53 l atorvastati 0 Yes 20mg QD Take 20 mg Methodi n (LIPITOR) 7-[address] 20 mg 15:24: nightly. Hospita tablet 53 Default OP l ins fluticasone 0 Yes 2{puff} Q.5D Inhale 2 Methodi propion-sylvia 7-[address] meteroL 15:24: (two) Hospita (ADVAIR/ 53 times a l WIXELA day. INHUB) 250-50 mcg/dose DISKUS diltiazem 0 Yes 240mg QD Take 240 Met hodi (CardIZEM) 7-[address] 60 MG 15:24: mouth Hospita tablet 53 daily. l pregabalin 0 Yes 100mg Q.5D Take 100 [facility] (LYRICA) 7-[address] 100 MG 11:41: mouth 2 Hospita capsule 41 (two) l times a day. cholecalcif 0 Yes 5000U QD Take 5,000 Methodi aminah, 7-[address] vitamin D3, 11:41: mouth Hospi ta 5,000 unit 41 daily. l capsule ascorbic 0 Yes 1000mg Q.5D Take 1,000 M ethodi acid, 7-[address] vitamin C, 11:41: mouth 2 Hosp lew (VITAMIN C) 41 (two) l 1000 MG times a tablet day. multivitami 2020-0 Yes 1{capsu Q.5D Take 1 M ethodi n 7-09 le} capsule by st (THERAGRAN) 11:41: mouth 2 Hos loki tablet 41 (two) l times a day. levalbutero 2021-0 Yes 1{puff} Q4H Inhale 1-2 Methodi l (XOPENEX -[address] HFA) 45 11:41: every 4 [...] QD Take 75 mg Me thodi (DESYREL) 04-[address] 50 MG 11:41: nightly. Hospita tablet 41 l cycloSPORIN Yes 1[drp] Q.5D Administer Methodi E 04-[address] (RESTASIS) 11:41: both eyes Ho spita 0.05 % 41 2 (two) l ophthalmic times a emulsion day. aspirin Yes 81mg QD Take 81 mg Meth david (ECOTRIN) [address] 81 MG 11:41: daily. Hospita enteric 41 l coated tablet pregabalin Yes 100mg Q.5D Take 100 Me [facility]odi (LYRICA) -[address] 100 MG 11:41: mouth [...] 1{puff} Q4H Inhale 1-2 Methodi l (XOPENEX 04-[address] HFA) 45 11:41: every 4 [...] QD Take 75 mg Me thodi (DESYREL) 04-[address] 50 MG 11:41: nightly. [...] mouth l daily for 9 days. predniSONE 2020-2020- No 20mg Take [address] [facility] (DELTASONE) 04-06 by mouth. Maxi kes 20 MG 00:00: 23:59 Medical tablet 00 :00 Center predniSONE 2020-2020- No 20mg Take [address] [facility] [facility] (DELTASONE) 04-0618 by mouth. Maxi kes 20 MG 00:00: 23:59 Medical tablet 00 :00 [place] fluticasone 2020-0 2020- No QD Inhale 1 M ethodi furoate-evan 04-05-08 inhalation s t anteroL 23:11: 00:00 s daily. Hospi ta (BREO 36 :00 l ELLIPTA) 100-25 mcg/dose blister with device powder for inhalation venlafaxine 2020- No 75mg QD Take 75 mg Methodi XR 04-[address] (EFFEXOR-XR 23:11: 00:00 daily. Hos loki ) 75 MG 24 36 :00 l hr capsule lamoTRIgine 2020-2020- No 25mg Q.5D Take 25 mg Methodi (LaMICtal) 04-[address] 25 MG 23:11: 00:00 (two) Hospita tablet 36 :00 times a l day. cariprazine 2020- No 3mg QD Take 3 mg Methodi (VRAYLAR) 3 04-[address] mg capsule 23:11: 00:00 nightly. Ho spita 36 :00 l fluticasone 2020-0 2020- No QD Inhale 1 M ethodi furoate-evan 04-05 inhalation s t anteroL 23:11: 00:00 s daily. Hospi ta (BREO 36 :00 l ELLIPTA) 100-25 mcg/dose blister with device powder for inhalation venlafaxine 2020- No 75mg QD Take 75 mg Methodi XR 04-05-[address] (EFFEXOR-XR 23:11: 00:00 daily. Hos loki ) 75 MG 24 36 :00 l hr capsule lamoTRIgine 2020-0 2020- No 25mg Q.5D Take 25 mg Methodi (LaMICtal) 04-05-[address] 25 MG 23:11: 00:00 (two) Hospita tablet 36 :00 times a l day. cariprazine 2020-0 2020- No 3mg QD Take 3 mg Methodi (VRAYLAR) 3 04-05-[address] mg capsule 23:11: 00:00 nightly. Ho spita 36 :00 l clopidogreL 2020-0 2020- No 75mg QD Take 75 mg Methodi (PLAVIX) 75 04-05-[address] mg tablet 21:58: 00:00 daily. Hospi ta 42 :00 l clopidogreL 2020-0 2020- No 75mg QD Take 75 mg Methodi (PLAVIX) 75 04-05-[address] mg tablet 21:58: 00:00 daily. Hospi ta 42 :00 l atorvastati 2020-0 Yes 20mg Take 20 mg [...] dical 0.1 mg/hr 00 Center patch nitroglycer 2021-[address] 0[address] in 5-19 mg under [facility] (NITROSTAT) 00:00: the Medica l 0.4 MG SL 00 tongue. Center tablet atorvastati 2020-0 Yes 20mg Take [address] [facility] n (LIPITOR) 5-19 by mouth. Glenna es 20 MG 00:00: Medical tablet 00 Center nitroglycer 1-[address] [facility] in 5-19 tablet [facility] (NITROSTAT) 00:00: (0.4 mg Med ical 0.4 MG SL 00 total) Center tablet under the tongue. nitroglycer 2020-0 Yes 1{patch Place [address] [facility] in 5-19 } patch onto [facility] (NITRODUR) 00:00: the skin. Me dical 0.1 mg/hr 00 Center patch nitroglycer 1-[address] 0[address] in 5-19 mg under [facility] (NITROSTAT) 00:00: the Medica l 0.4 MG SL 00 tongue. Center tablet nitroglycer 2020-[address] [facility] in 5-19 tablet [facility] (NITROSTAT) 00:00: (0.4 mg Med ical 0.4 MG SL 00 total) Center tablet under the tongue. atorvastati 2020-0 Yes 20mg Take [address] [facility] n (LIPITOR) 5-19 by mouth. Glenna es 20 MG 00:00: Medical tablet 00 Center nitroglycer 2020-0 Yes 1{patch Place [address] [facility] in 5-19 } patch onto [facility] (NITRODUR) 00:00: the skin. Me dical 0.1 mg/hr 00 Center patch nitroglycer 1-[address] 0[address] in 5-19 mg under [facility] (NITROSTAT) 00:00: the Medica l 0.4 MG SL 00 tongue. Center tablet nitroglycer 1-0 2023- No .4mg Place [address] [facility] in 5-19 08-14 tablet [facility] (NITROSTAT) 00:00: 00:00 (0.4 mg Me dical 0.4 MG SL 00 :00 total) Center tablet under the tongue. atorvastati 2022- No 20mg Take [address] [facility] n (LIPITOR) 02-14 tablet (20 L ukes 20 MG 00:00: 00:00 mg total) Medica l tablet 00 :00 by mouth. Center nitroglycer 2022- No 1{patch Place [address] [facility] in 02-14 } patch onto [facility] (NITRODUR) 00:00: 00:00 the skin. M edical 0.1 mg/hr 00 :00 Center patch atorvastati 2022- No 20mg Take [address] [facility] (LIPITOR) 02-14 tablet (20 L ukes 20 MG 00:00: 00:00 mg total) Medica l tablet 00 :00 by mouth. [place] nitroglycer 2022- No 1{patch Place [address] [facility] in 02-14 } patch onto [facility] (NITRODUR) 00:00: 00:00 the skin. M edical 0.1 mg/hr 00 :00 Center patch atorvastati 2022- No 20mg Take [address] [facility] (LIPITOR) 02-14 tablet (20 L ukes 20 MG 00:00: 00:00 mg total) Medica l tablet 00 :00 by mouth. [place] nitroglycer 2022- No 1{patch Place [address] [facility] in 02-14 } patch onto [facility] (NITRODUR) 00:00: 00:00 the skin. M edical 0.1 mg/hr 00 :00 Center patch lisinopriL 2019-09 Yes 5mg Take [address] [facility] [address] [facility] (PRINIVIL,Z 1-17 by mouth. Glenna es ESTRIL) 5 00:00: Medical MG tablet 00 [place] lisinopriL 2019-09 Yes 5mg Take [address] [facility] [address] [facility] (PRINIVIL,Z 1-17 by mouth. Glenna es ESTRIL) 5 00:00: Medical MG tablet 00 [place] lisinopriL 2019-09 Yes 5mg Take [address] [facility] [address] [facility] (PRINIVIL,Z 1-17 by mouth. Glenna es ESTRIL) 5 00:00: Medical MG tablet 00 [place] lisinopriL 2019-09 Yes 5mg Take [address] [facility] (PRINIVIL,Z 1-17 by mouth. Glenna es ESTRIL) 5 00:00: Medical MG tablet 00 [place] lisinopriL 2019-09 Yes 5mg Take [address] [facility] (PRINIVIL,Z 1-17 by mouth. Glenna es ESTRIL) 5 00:00: Medical MG tablet 00 [place] lisinopriL 2019-09- No 5mg Take [address] [facility] (PRINIVIL,Z 1-17 05-06 tablet (5 Maxi kes ESTRIL) 5 00:00: 00:00 mg total) Me dical MG tablet 00 :00 by mouth. Cente r lisinopriL 2019-09- No 5mg Take [address] [facility] (PRINIVIL,Z 1-17 05-06 tablet (5 Maxi kes ESTRIL) 5 00:00: 00:00 mg total) Me dical MG tablet 00 :00 by mouth. Cente r lisinopriL 2019-09- No 5mg Take [address] [facility] (PRINIVIL,Z 1-17 05-06 tablet (5 Maxi kes ESTRIL) 5 00:00: 00:00 mg total) Me dical MG tablet 00 :00 [facility] 2019-0 Yes .31mg Inhale Uni vers l 0.31 mg/3 8-24 0.31 mg 3 ity of mL 23:17: (three) [place] nebulizer 25 times Medical solution daily. Branch Venlafaxine 2019-0 Yes Take by Uni vers 225 mg TR24 8-24 mouth. ity of 23:17: [address] lurasidone 2019-0 Yes Take by [facility] ([facility]) 20 8-24 mouth. ity of mg tablet 23:17: [address] doxepin 10 2019-0 Yes 10mg Take 10 mg U nivers mg capsule 8-24 by mouth. ity of 23:17: [address] levalbutero 2019-0 Yes .31mg Inhale Uni vers l 0.31 mg/3 8-24 0.31 mg 3 ity of mL 23:17: (three) [place] nebulizer 25 times Medical solution daily. Branch Venlafaxine 2020-0 Yes Take by Uni vers 225 mg TR24 8-24 mouth. ity of 23:17: [address] lurasidone 2020-0 Yes Take by [facility] ers [facility] 20 8-24 mouth. ity of mg tablet 23:17: [address] doxepin 10 2020-0 Yes 10mg Take 10 mg U nivers mg capsule 8-24 by mouth. ity of 23:17: [address] Branch levalbutero 2020-0 Yes .31mg Inhale Uni vers l 0.31 mg/3 8-24 0.31 mg 3 ity of mL 23:17: (three) [place] nebulizer 25 times Medical solution daily. Branch Venlafaxine 2020-0 Yes Take by Uni vers 225 mg TR24 8-24 mouth. ity of 23:17: [address] lurasidone 2020-0 Yes Take by [facility] ers ([facility]) 20 8-24 mouth. ity of mg tablet 23:17: [address] doxepin 10 2020-0 Yes 10mg Take 10 mg U nivers mg capsule 8 by mouth. ity of 23:17: [address] pregabalin 2019-0 2020- No 50mg Take 50 mg Univers 50 mg 05-22- by mouth 3 ity of capsule 22:10: 00:00 (three) [place] 12 :00 times Medical daily. Branch levalbutero 2020-0 Yes .31mg Inhale Uni vers l 0.31 mg/3 8-24 0.31 mg 3 ity of mL 18:17: (three) [place] nebulizer 25 times Medical solution daily. Branch Venlafaxine 2020-0 Yes Take by Uni vers 225 mg TR24 8-24 mouth. ity of 18:17: [address] lurasidone 2020-0 Yes Take by [facility] ([facility]) 20 8-24 mouth. ity of mg tablet 18:17: [address] doxepin 10 2020-0 Yes 10mg Take 10 mg U nivers mg capsule 05-22 by mouth. ity of 18:17: [address] Branch lactated 2020-0 2020- No 500mL at 999 [facility] rs ringers IV 05-22 08-24 mL/hr, 500 it y of infusion 10:15: 09:30 mL, IV [place] 500 mL 00 :00 Infusion, Medical ONCE, 1 Branch dose, 05/22/20 at 0515, STAT lactated 2019-0 2020- No 500[facility] 05-2224 mL/hr, 500 it y of infusion 06:30: 06:19 mL, IV [place] 500 mL 00 :00 Infusion, [facility] ONCE, 1 Branch dose, 05/22/20 at 0130, STAT clonazePAM 2020-0 2020- No .5mg 0.5 mg, Uni vers (KLONOPIN) 05-22 0824 Oral, ity of tablet 0.5 02:30: 01:46 ONCE, 1 French as mg 00 :00 dose, [facility] 05/21/20 at Branch 2130, Routine ramelteon 2020-0 Yes 8mg 8 mg, Univers (ROZEREM) 24 Oral, QHS, ity of tablet 8 mg 02:00: First dose [place] 00 on [facility] 05/21/20 at Branch 2100, Until Discontinu ed, Routine heparin 2020-0 Yes 5000U 5,000 [facility] (porcine) 8-22 Units, ity of injection 01:00: [place] 5,000 Units 00 us, Q12H, Med ical First dose Branch on Fri05/19/20 at 2000, Until Discontinu ed, Routine acetaminoph 2020-0 Yes 650mg 650 mg, Un shine en 05-19 Oral, ity of (TYLENOL) 15:35: Q6HPRN, [place] tablet 650 27 Starting Medic al mg [facility] 05/19/20 at 1035, Until Discontinu ed, Routine, Pain (scale 1-3), Pain (scale 4-6) enoxaparin 2020-0 2020- No 1mg/kg 100 mg Un shine (LOVENOX) 05-19 (rounded ity o f injection 13:00: 20:29 from 102 French as 100 mg 00 :06 mg = 1 Medical mg/kg ?102 Branch kg), Subcutaneo us, Q12H, First dose on Fri05/19/20 at 0800, Until Discontinu ed, Routine atropine 2019-0 Yes .5mg 0.5 mg, IV Uni vers injection 05-19 Push, ity of 0.5 mg 08:22: Q5MIN PRN, [place] 41 Starting Medical [facility] 05/19/20 at 0322, Until Discontinu ed, Routine, Symptomati c Bradycardi a, notify house staff if having to administer glucagon 2020-0 Yes 1mg 1 mg, Univers (GLUCAGEN 05-19 Intramuscu ity of DIAGNOSTIC 07:30: [place], PRN, [place]) 24 Starting Medical injection 1 Fri [facility] 05/19/20 at 0230, Until Discontinu ed, NAIF, Blood Glucose < or = 70 mg/dL and patient is unable to swallow or has mental changes. dextrose 50 2020-0 Yes 25mL 25 mL, Univ ers % in water 05-19 Slow IV ity of (D50W) 07:30: Push, PRN, [place] injection 24 Starting Medica l 25 mL [facility] Branch 05/19/20 at 0230, Until Discontinu ed, ANIF, Blood Glucose < or = 70 mg/dL and patient is unable to swallow or has mental status changes. atropine 2020-0 2020- No .5mg 0.5 mg, IV Un shine injection 05-19 Push, ity of 0.5 mg 05:45: 05:33 ONCE, 1 [place] 00 :00 dose, [facility] 05/19/20 at Branch 0045, STAT atropine 2020-0 2020- No .5mg 0.5 mg, IV Un shine injection 05-19 Push, ity of 0.5 mg 04:15: 04:10 ONCE, 1 [place] 00 :00 dose, [place] [facility] 05[facility]20 at Branch 2315, STAT atropine 2020-0 2020- No .5mg 0.5 mg, IV Un shine injection 05-19 Push, ity of 0.5 mg 03:45: 02:49 ONCE, 1 [place] 00 :00 dose, [facility] 05/18/20 at Branch 2245, STAT atropine 2020-0 2020- No .5mg 0.5 mg, IV Un shine injection 05-19 Push, ity of 0.5 mg 01:30: 00:37 ONCE, 1 [place] 00 :00 dose, [facility] 05/18/20 at Branch 2030, STAT ondansetron 2020-0 2020- No 4mg 4 mg, Slow Univers (ZOFRAN 05-19 IV Push, ity of (PF)) 00:45: 23:30 ONCE, 1 [place] injection 4 00 :00 dose, [facility] Med ical mg 05/18/20 at Branch 1945, NAIF NaCl 0.9% 2019-0 2020- No 1000mL at 999 Uni vers (NS) bolus 05-19- mL/hr, ity of infusion 00:30: 01:01 1,000 mL, French as 1,000 mL 00 :00 IV Medical Infusion, Branch ONCE, 1 dose, [facility] 05/18/20 at 1930, STAT glucagon 2019-0 2020- No 4mg/h 4 mg/hr Univ ers (GLUCAGEN 05-19 (40 ity of DIAGNOSTIC 00:30: 21:43 mL/hr), French as KIT) 5 mg 00 :16 Intravenou Medi jeanette in NaCl s, at 40 Branch 0.9% (NS) mL/hr, 50 mL CONTINUOUS infusion , Starting Fri05/18/20 at 1930, Until Fri05/19/20 at 1643, NAIF calcium 2019-2019- No 2g 2 g, IV Univer s gluconate 2 05-19 Infusion, it y of g in NaCl 00:30: 00:30 ONCE, 1 [place] 100 mL 00 :00 dose, [facility] Medical (ISO-OSM) 05/18/20 at Bran ch RTU IV 193, infusion 2 Routine g NaCl 0.9% 2019-0 2020- No 1000mL at 999 Uni vers (NS) bolus 05-19 mL/hr, ity of infusion 00:30: 00:24 1,000 mL, [place] as 1,000 mL 00 :00 IV Medical Infusion, Branch ONCE, 1 dose, [facility] 05/18/20 at 1930, STAT naloxone 2019-0 2020- No 2mg 2 mg, Slow Un shine (NARCAN) 05-19 IV Push, ity of injection 2 00:30: 23:19 ONCE, 1 [place] mg 00 :00 dose, [facility] 05/18/20 at Branch 1930, STAT glucagon 2019-0 2020- No 4mg 4 mg, Univers (GLUCAGEN 05-19 Intravenou ity of DIAGNOSTIC 00:15: 23:17 s, ONCE, 1 [place] KIT) 00 :00 dose, [facility] Medical injection 4 05/18/20 at Br anch mg 1915, Routine iohexol 2019-0 2020- No 120mL 120 mL, Unive rs (OMNIPAQUE 05-17 Intravenou it y of 350 02:45: 02:32 s, ONCE, 1 [place] BULK-150 00 :00 dose, Tue Medica l mL) 05/16/20 at [place] injection 2145, 120 mL Routine ondansetron 2019-0 2020- No 4mg 4 mg, Slow Univers (ZOFRAN 05-17 IV Push, ity of (PF)) 02:15: 01:22 ONCE, 1 [place] injection 4 00 :00 dose, Tue Med ical mg 05/16/20 at Branch 2114, NAIF morpHINE 2019-0 2020- No 4mg 4 mg, Slow Un shine injection 4 05-17 IV Push, ity of mg 02:15: 01:22 ONCE, 1 [place] 00 :00 dose, Tue Medical 05/16/20 at Branch 2114, STAT albuterol 2019-0 Yes [id number] 2{puff} Inhale 2 Univers 90 8-18 Puffs ity of mcg/actuati 00:00: every 4 [place] as on inhaler 00 (four) Medical hours as Branch needed for Wheezing or Shortness of Breath. albuterol 2019-0 Yes [id number] 2{puff} Inhale 2 Univers 90 8-18 Puffs ity of mcg/actuati 00:00: every 4 [place] as on inhaler 00 (four) Medical hours as Branch needed for Wheezing or Shortness of Breath. albuterol 2020-0 Yes [id number] 2{puff} Inhale 2 Univers 90 8-18 [id number] Puffs ity of mcg/actuati 00:00: every 4 [place] as on inhaler 00 (four) Medical hours as Branch needed for Wheezing or Shortness of Breath. albuterol 2020-0 Yes [id number] 2{puff} Inhale 2 Univers 90 8-18 [id number] Puffs ity of mcg/actuati 00:00: every 4 [place] as on inhaler 00 (four) Medical hours as Branch needed for Wheezing or Shortness of Breath. albuterol 2020-0 Yes [id number] 2{puff} Inhale 2 Univers 90 8-18 [id number] Puffs ity of mcg/actuati 00:00: every 4 [place] as on inhaler 00 (four) Medical hours as Branch needed for Wheezing or Shortness of Breath. albuterol 2020-0 Yes [id number] 2{puff} Inhale 2 Univers 90 8-18 [id number] Puffs ity of mcg/actuati 00:00: every 4 [place] as on inhaler 00 (four) Medical hours as Branch needed for Wheezing or Shortness of Breath. albuterol 2019-0 Yes [id number] 2{puff} Inhale 2 Univers 90 8-18 [id number] Puffs ity of mcg/actuati 00:00: every 4 [place] as on inhaler 00 (four) Medical hours as Branch needed for Wheezing or Shortness of Breath. albuterol 2019- Yes [id number] 2{puff} Inhale 2 Univers 90 8-18 [id number] Puffs ity of mcg/actuati 00:00: every 4 [place] as on inhaler 00 (four) Medical hours as Branch needed for Wheezing or Shortness of Breath. albuterol 2019- Yes [id number] 2{puff} Inhale 2 Univers 90 8-18 03294 Puffs ity of mcg/actuati 00:00: every 4 [place] as on inhaler 00 (four) Medical hours as Branch needed for Wheezing or Shortness of Breath. albuterol Yes [id number] 2{puff} Inhale 2 Univers 90 8-18 [id number] Puffs ity of mcg/actuati 00:00: every 4 [place] as on inhaler 00 (four) Medical hours as Branch needed for Wheezing or Shortness of Breath. albuterol Yes [id number] 2{puff} Inhale 2 Univers 90 8-18 [id number] Puffs ity of mcg/actuati 00:00: every 4 [place] as on inhaler 00 (four) Medical hours as Branch needed for Wheezing or Shortness of Breath. albuterol Yes [id number] 2{puff} Inhale 2 Univers 90 8-18 [id number] Puffs ity of mcg/actuati 00:00: every 4 [place] as on inhaler 00 (four) Medical hours as Branch needed for Wheezing or Shortness of Breath. albuterol 2019-0 Yes [id number] 2{puff} Inhale 2 Univers 90 8-18 Puffs ity of mcg/actuati 00:00: every 4 [place] as on inhaler 00 (four) Medical hours as Branch needed for Wheezing or Shortness of Breath. Acetaminoph 2020-0 No Notes: Danie brielle en 325 MG / 3-15 (Same as: l Hydrocodone 00:34: [place] Shobha nn Bitartrate 00 325/5) Do 5 MG Oral not exceed Tablet 4gm/day of [[place] acetaminop 5/325] hen. Acetaminoph 2020-0 No Notes: Danie brielle en 325 MG / 3-15 (Same as: l Hydrocodone 00:34: [place] Shobha nn Bitartrate 00 325/5) Do 5 MG Oral not exceed Tablet 4gm/day of [[place] acetaminop 5/325] hen. Morphine 2020-0 No 2 mg, Memoria 3-06 Route: l 01:45: IVP, ONCE, [place] Dosing Weight 94.05, kg, Priority: STAT, Start date: 12/02/19 19:45:00 [employer], Stop date: 12/02/19 19:45:00 [employer] Morphine 2020-0 No 2 mg, Memoria 3-06 Route: l 01:45: IVP, ONCE, Dosing Weight 94.05, kg, Priority: STAT, Start date: 12/02/19 19:45:00 [employer]UFA[employer]INEERING PROFESSOR, Stop date: 12/02/19 19:45:00 [employer]UFA[employer]INE[employer]ING PROFESSOR Valium 2020-0 No 5 mg, Memoria 3-06 Route: PO, l 01:05: Drug form: [place] 00 TAB, ONCE, Dosing Weight 94.05, kg, Priority: STAT, Start date: 12/02/19 19:05:00 [employer]UFA[employer]INEERING PROFESSOR, Stop date: 12/02/19 19:05:00 [employer]UFACT[employer]ING ENGINEERING PROFESSOR Valium 2020-0 No 5 mg, Memoria 3-06 Route: PO, l 01:05: Drug form: [place] 00 TAB, ONCE, Dosing Weight 94.05, kg, Priority: STAT, Start date: 12/02/19 19:05:00 MANUFACTURING ENGINEERING PROFESSOR, Stop date: 12/02/19 19:05:00 MANUFACTURING ENGINEERING PROFESSOR ketOROLAC 2020-0 No 15 mg, Memori a 15 mg/mL 3-06 Route: l injectable 01:02: IVP, Drug [place] solution 00 form: INJ, ONCE, Dosing Weight 94.05, kg, Priority: STAT, Start date: 12/02/19 19:02:00 [employer]UFACTURING ENGINEERING PROFESSOR, Stop date: 12/02/19 19:02:00 MANUFACT[employer]ING ENGINEERING PROFESSOR ketOROLAC No 15 mg, Memori a 15 mg/mL 12-02 Route: l injectable 01:02: IVP, Drug [place] solution 00 form: INJ, ONCE, Dosing Weight 94.05, kg, Priority: STAT, Start date: 12/02/19 19:02:00 MANUFACTURING ENGINEERING PROFESSOR, Stop date: 12/02/19 19:02:00 MANUFACTURING ENGINEERING PROFESSOR Al No Notes: [facility] hydroxide/M 3-05 (aluminum l g 23:57: hydroxide- [place] hydroxide/s 00 magnesium imethicone hyd-simeth icone 200-200-20 mg/5ml 30 ml ud AAMIR) Xylocaine No Notes: Memori a Viscous 2% 3-05 (Same as: l mucous 23:57: Xylocaine) Shobha nn membrane 00 solution Al No Notes: [facility] hydroxide/M 3-05 (aluminum l g 23:57: hydroxide- [place] hydroxide/s 00 magnesium imethicone hyd-simeth icone 200-200-20 mg/5ml 30 ml ud AAMIR) Xylocaine No Notes: Memori a Viscous 2% 3-05 (Same as: l mucous 23:57: Xylocaine) Shobha nn membrane 00 solution Saline No Notes: [facility] Flush 0.9% 3-05 Same as: l 23:51: BD [place] 00 Posiflush Sterile GI cocktail No 45 mL, Danie brielle (aluminum 3-05 Route: PO, l hydroxide/m 23:51: Dosing [place] bebe agnesium 00 Weight hydroxide/l 94.05, kg, idocaine/si ONCE, methicone) STAT, Start date: 12/02/19 17:51:00 [employer]UFACTURING ENGINEERING PROFESSOR, Stop date: 12/02/19 17:51:00 MANUFACTURING ENGINEERING PROFESSOR Saline No Notes: [facility] Flush 0.9% 3-05 Same as: l 23:51: BD [place] 00 Posiflush Sterile GI cocktail No 45 mL, Danie brielle (aluminum 3-05 Route: PO, l hydroxide/m 23:51: Dosing [place] bebe agnesium 00 Weight hydroxide/l 94.05, kg, idocaine/si ONCE, methicone) STAT, Start date: 12/02/19 17:51:00 MANUFACTURING ENGINEERING PROFESSOR, Stop date: 12/02/19 17:51:00 [employer]UFACTURING [employer]INEERING PROFESSOR Aspirin 2020-0 No Notes: Memoria 3-04 Take with l 00:11: food. [place] Morphine 2020-0 No Notes: Memoria 3-04 (Same l 00:11: as:MORPhin [place] 00 e Sulfate) Aspirin 2020-0 No Notes: Memoria 3-04 Take with l 00:11: food. [place] Morphine 2020-0 No Notes: Memoria 3-04 (Same l 00:11: as:MORPhin [place] 00 e Sulfate) Sodium 2020-0 No 1,000 mL, Memori a Chloride 3-03 Infuse l 0.9% 23:10: Over: 1 [place] (Bolus) IV 00 hr, Route: IV, ONCE, Priority: STAT, Dosing Weight 110.5 kg, Start date: 11/30/19 17:10:00 MANUFACTURING ENGINEERING PROFESSOR, Stop date: 11/30/19 17:10:00 MANUFACTURING ENGINEERING PROFESSOR Sodium 2020-0 No 1,000 mL, Memori a Chloride 3-03 Infuse l 0.9% 23:10: Over: 1 [place] (Bolus) IV 00 hr, Route: IV, ONCE, Priority: STAT, Dosing Weight 110.5 kg, Start date: 11/30/19 17:10:00 MANUFACTURING ENGINEERING PROFESSOR, Stop date: 11/30/19 17:10:00 MANUFACTURING ENGINEERING PROFESSOR fluticasone 2020-0 Yes [id number] 1{puff} Inhale 1 Univers furoate-evan 2-28 Puff ity of anterol 00:00: daily. [address]) Branch 100-25 mcg/dose DsDv fluticasone 2020-0 Yes [id number] 1{puff} Inhale 1 Univers furoate-evan 2-28 Puff ity of anterol 00:00: daily. [place] ([address]) Branch 100-25 mcg/dose DsDv fluticasone 2020-0 Yes [id number] 1{puff} Inhale 1 Univers furoate-evan 2-28 Puff ity of anterol 00:00: daily. [place] ([address]) Branch 100-25 mcg/dose DsDv fluticasone 2020-0 Yes [id number] 1{puff} Inhale 1 Univers furoate-evan 2-28 Puff ity of anterol 00:00: daily. [place] ([address]) Branch 100-25 mcg/dose DsDv fluticasone 2020-0 Yes [id number] 1{puff} Inhale 1 Univers furoate-evan 2-28 Puff ity of anterol 00:00: daily. [place] ([address]) Branch 100-25 mcg/dose DsDv fluticasone 2020-0 Yes [id number] 1{puff} Inhale 1 Univers furoate-evan 2-28 Puff ity of anterol 00:00: daily. [place] ([address]) Branch 100-25 mcg/dose DsDv fluticasone 2020-0 Yes [id number] 1{puff} Inhale 1 Univers furoate-evan 2-28 Puff ity of anterol 00:00: daily. [place] ([address]) Branch 100-25 mcg/dose DsDv fluticasone 2020-0 Yes [id number] 1{puff} Inhale 1 Univers furoate-evan 2-28 Puff ity of anterol 00:00: daily. [place] ([address]) Branch 100-25 mcg/dose DsDv fluticasone 2020-0 2022- No [id number] 1{puff} Inhale 1 Univers furoate-evan 2-28 11-11 Puff ity of anterol 00:00: 00:00 daily. [place] ([facility] 00 :00 [facility]) Branch 100-25 mcg/dose DsDv levalbutero 2018-09 Yes [id number] 1.25mg Inhale Univers l 1.25 mg/3 2-23 1.25 mg ity o f mL 00:00: every 8 [place] nebulizer (eight) Medical solution hours as Branch needed for Wheezing or Shortness of Breath. Nebulizer & 2018-09 Yes [id number] Use as Univers Compressor 2-23 directed ity o f For Neb 00:00: [place] [address] Medical Branch levalbutero 2018-09 Yes [id number] 1.25mg Inhale Univers l 1.25 mg/3 2-23 1.25 mg ity o f mL 00:00: every 8 [place] nebulizer (eight) Medical solution hours as Branch needed for Wheezing or Shortness of Breath. Nebulizer & 2018-09 Yes [id number] Use as Univers Compressor 2-23 directed ity o f For Neb 00:00: Medical Branch levalbutero 2018-09 Yes [id number] 1.25mg Inhale Univers l 1.25 mg/3 2-23 1.25 mg ity o f mL 00:00: every 8 [place] nebulizer 00 (eight) Medical solution hours as Branch needed for Wheezing or Shortness of Breath. Nebulizer & 2018-09 Yes [id number] Use as Univers Compressor 2-23 directed ity o f For Neb 00:00: Medical Branch levalbutero 2018-09 Yes [id number] 1.25mg Inhale Univers l 1.25 mg/3 2-23 1.25 mg ity o f mL 00:00: every 8 [place] nebulizer 00 (eight) Medical solution hours as Branch needed for Wheezing or Shortness of Breath. Nebulizer & 2018-09 Yes [id number] Use as Univers Compressor 2-23 directed ity o f For Neb 00:00: Medical Branch levalbutero 2018-09 Yes [id number] 1.25mg Inhale Univers l 1.25 mg/3 2-23 1.25 mg ity o f mL 00:00: every 8 [place] nebulizer 00 (eight) Medical solution hours as Branch needed for Wheezing or Shortness of Breath. Nebulizer & 2018-09 Yes [id number] Use as Univers Compressor 2-23 directed ity o f For Neb 00:00: Medical Branch levalbutero 2018-09 Yes [id number] 1.25mg Inhale Univers l 1.25 mg/3 2-23 1.25 mg ity o f mL 00:00: every 8 [place] nebulizer 00 (eight) Medical solution hours as Branch needed for Wheezing or Shortness of Breath. Nebulizer & 2018-09 Yes [id number] Use as Univers Compressor 2-23 directed ity o f For Neb 00:00: Medical Branch levalbutero 2018-09 Yes [id number] 1.25mg Inhale Univers l 1.25 mg/3 2-23 1.25 mg ity o f mL 00:00: every 8 [place] nebulizer 00 (eight) Medical solution hours as Branch needed for Wheezing or Shortness of Breath. Nebulizer & 2018-09 Yes [id number] Use as Univers Compressor 2-23 directed ity o f For Neb 00:00: Medical Branch levalbutero 2018-09 Yes [id number] 1.25mg Inhale Univers l 1.25 mg/3 2-23 1.25 mg ity o f mL 00:00: every 8 [place] nebulizer 00 (eight) Medical solution hours as Branch needed for Wheezing or Shortness of Breath. Nebulizer & 2018-09 Yes [id number] Use as Univers Compressor 2-23 directed ity o f For Neb 00:00: Medical Branch levalbutero 2018-09 Yes [id number] 1.25mg Inhale Univers l 1.25 mg/3 2-23 1.25 mg ity o f mL 00:00: every 8 [place] nebulizer 00 (eight) Medical solution hours as Branch needed for Wheezing or Shortness of Breath. Nebulizer & 2018-09 Yes [id number] Use as Univers Compressor 2-23 directed ity o f For Neb 00:00: Medical Branch levalbutero 2018-09 Yes [id number] 1.25mg Inhale Univers l 1.25 mg/3 2-23 1.25 mg ity o f mL 00:00: every 8 [place] nebulizer 00 (eight) Medical solution hours as Branch needed for Wheezing or Shortness of Breath. Nebulizer & 2018-09 Yes [id number] Use as Univers Compressor 2-23 directed ity o f For Neb 00:00: Medical Branch levalbutero 2018-09 Yes [id number] 1.25mg Inhale Univers l 1.25 mg/3 2-23 1.25 mg ity o f mL 00:00: every 8 [place] nebulizer 00 (eight) Medical solution hours as Branch needed for Wheezing or Shortness of Breath. Nebulizer & 2018-09 Yes [id number] Use as Univers Compressor 2-23 directed ity o f For Neb 00:00: Medical Branch levalbutero 2018-09 Yes [id number] 1.25mg Inhale Univers l 1.25 mg/3 2-23 1.25 mg ity o f mL 00:00: every 8 [place] nebulizer 00 (eight) Medical solution hours as Branch needed for Wheezing or Shortness of Breath. Nebulizer & 2018-09 Yes [id number] Use as Univers Compressor 2-23 directed ity o f For Neb 00:00: Medical Branch levalbutero 2018-09 Yes [id number] 1.25mg Inhale Univers l 1.25 mg/3 2-23 1.25 mg ity o f mL 00:00: every 8 [place] nebulizer 00 (eight) Medical solution hours as Branch needed for Wheezing or Shortness of Breath. Nebulizer & 2018-09 Yes [id number] Use as Univers Compressor 2-23 directed ity o f For Neb 00:00: Medical Branch levalbutero 2018-09 Yes [id number] 1.25mg Inhale Univers l 1.25 mg/3 2-23 1.25 mg ity o f mL 00:00: every 8 [place] nebulizer 00 (eight) Medical solution hours as Branch needed for Wheezing or Shortness of Breath. Nebulizer & 2018-09 Yes [id number] Use as Univers Compressor 2-23 directed ity o f For Neb 00:00: Medical Branch levalbutero 2018-09 Yes [id number] 1.25mg Inhale Univers l 1.25 mg/3 2-23 1.25 mg ity o f mL 00:00: every 8 [place] nebulizer 00 (eight) Medical solution hours as Branch needed for Wheezing or Shortness of Breath. Nebulizer & 2018-09 Yes [id number] Use as Univers Compressor 2-23 directed ity o f For Neb 00:00: Medical Branch levalbutero 2018-09 Yes [id number] 1.25mg Inhale Univers l 1.25 mg/3 2-23 1.25 mg ity o f mL 00:00: every 8 [place] nebulizer 00 (eight) Medical solution hours as Branch needed for Wheezing or Shortness of Breath. Nebulizer & 2018-09 Yes [id number] Use as Univers Compressor 2-23 directed ity o f For Neb 00:00: Medical Branch levalbutero 2018-09 Yes .31mg Inhale Uni vers l 0.31 mg/3 2-20 0.31 mg 3 ity of mL 00:07: (three) [place] nebulizer 07 times Medical solution daily. Branch Venlafaxine 2018-09 Yes Take by Uni vers 225 mg TR24 2-20 mouth. ity of 00:07: Medical Branch pregabalin 2019- Yes 50mg Take 50 mg U nivers 50 mg 2-20 by mouth 3 ity of capsule 00:07: (three) [place] [address] times Medical daily. Branch lurasidone 2019- Yes Take by Univ ers (LATUDA) 20 2-20 mouth. ity of mg tablet 00:07: Medical Branch doxepin 10 2018- Yes 10mg Take 10 mg U nivers mg capsule 2-20 by mouth. ity of 00:07: Medical Branch levalbutero 2018- Yes .31mg Inhale Uni vers l 0.31 mg/3 2-20 0.31 mg 3 ity of mL 00:07: (three) [place] nebulizer 07 times Medical solution daily. Branch Venlafaxine 2018- Yes Take by Uni vers 225 mg TR24 2-20 mouth. ity of 00:07: [place] [address] Medical Branch pregabalin 2019- Yes 50mg Take 50 mg U nivers 50 mg 2-20 by mouth 3 ity of capsule 00:07: (three) [place] [address] times Medical daily. Branch lurasidone 2018- Yes Take by Univ ers (LATUDA) 20 2-20 mouth. ity of mg tablet 00:07: [place] [address] Medical Branch doxepin 10 2018- Yes 10mg Take 10 mg U nivers mg capsule 2-20 by mouth. ity of 00:07: Medical Branch levalbutero 2018- Yes .31mg Inhale Uni vers l 0.31 mg/3 2-20 0.31 mg 3 ity of mL 00:07: (three) [place] nebulizer 07 times Medical solution daily. Branch Venlafaxine 2018- Yes Take by Uni vers 225 mg TR24 2-20 mouth. ity of 00:07: Medical Branch pregabalin 2019- Yes 50mg Take 50 mg U nivers 50 mg 2-20 by mouth 3 ity of capsule 00:07: (three) [place] [address] times Medical daily. Branch lurasidone 2018- Yes Take by Univ ers (LATUDA) 20 2-20 mouth. ity of mg tablet 00:07: [place] [address] Medical Branch doxepin 10 2018- Yes 10mg Take 10 mg U nivers mg capsule 2-20 by mouth. ity of 00:07: [place] [address] Medical Branch levalbutero 2019- Yes .31mg Inhale Uni vers l 0.31 mg/3 2-20 0.31 mg 3 ity of mL 00:07: (three) [place] nebulizer 07 times Medical solution daily. Branch Venlafaxine 2018-09 Yes Take by Uni vers 225 mg TR24 2-20 mouth. ity of 00:07: [place] [address] Medical Branch pregabalin 2018- Yes 50mg Take 50 mg U nivers 50 mg 2-20 by mouth 3 ity of capsule 00:07: (three) [place] [address] times Medical daily. Branch lurasidone 2018- Yes Take by Univ ers (LATUDA) 20 2-20 mouth. ity of mg tablet 00:07: [place] [address] Medical Branch doxepin 10 2018-09 Yes 10mg Take 10 mg U nivers mg capsule 2-20 by mouth. ity of 00:07: [place] [address] Medical Branch traMADol 2018-09 Yes [id number] 50mg Take 1 Univers (ULTRAM) 50 2-19 [id number] tablet by i ty of mg tablet 00:00: mouth [place] 00 every 8 Medical (eight) Branch hours as needed for Pain (scale 4-6). traMADol 2018-09 Yes [id number] 50mg Take 1 Univers (ULTRAM) 50 2-19 [id number] tablet by i ty of mg tablet 00:00: mouth [place] 00 every 8 Medical (eight) Branch hours as needed for Pain (scale 4-6). traMADol 2018-09 Yes [id number] 50mg Take 1 Univers (ULTRAM) 50 2-19 [id number] tablet by i ty of mg tablet 00:00: mouth [place] 00 every 8 Medical (eight) Branch hours as needed for Pain (scale 4-6). traMADol 2018-09 Yes [id number] 50mg Take 1 Univers (ULTRAM) 50 2-19 [id number] tablet by i ty of mg tablet 00:00: mouth [place] 00 every 8 Medical (eight) Branch hours as needed for Pain (scale 4-6). traMADol 2018-09 2020- No [id number] 50mg Take 1 Univers (ULTRAM) 50 2-19 08-24 [id number] tablet by ity of mg tablet 00:00: 00:00 mouth [place] 00 :00 every 8 Medical (eight) Branch hours as needed for Pain (scale 4-6). propranolol 2018-09- No 5mg Q.5D Take 5 mg [facility] (INDERAL) 2 07-[address] 10 MG 00:00: 00:00 (two) [facility] tablet 00 :00 times a l day. propranolol 2018-09- No 5mg Q.5D Take 5 mg [facility] (INDERAL) 2 07-[address] 10 MG 00:00: 00:00 (two) [facility]osp[facility] tablet 00 :00 times a l day. fluticasone 2018-09 2020- No [id number] 2{puff} Inhale 2 Univers propion-sylvia 1-15 02-28 Puffs 2 ity of meterol 00:00: 00:00 (two) [place] (ADVAIR 00 :00 times Medical HFA) 230-21 daily. Branch mcg/actuati on inhaler clonazePAM 2018-09 Yes Univers 0.5 mg 1-04 ity of tablet 00:00: [address] clonazePAM 2018-09 Yes Univers 0.5 mg 1-04 ity of tablet 00:00: [address] clonazePAM 2018-09 Yes Univers 0.5 mg 1-04 ity of tablet 00:00: [address] clonazePAM 2018-09 Yes Univers 0.5 mg 1-04 ity of tablet 00:00: [address] clonazePAM 2018-09 Yes Univers 0.5 mg 1-04 ity of tablet 00:00: [address] clonazePAM 2018-09 Yes Univers 0.5 mg 1-04 ity of tablet 00:00: [address] clonazePAM 2018-09 Yes Univers 0.5 mg 1-04 ity of tablet 00:00: [address] clonazePAM 2018-09 Yes Univers 0.5 mg 1-04 ity of tablet 00:00: [address] clonazePAM 2018-09 Yes Univers 0.5 mg 1-04 ity of tablet 00:00: [address] clonazePAM 2018-09 Yes Univers 0.5 mg 1-04 ity of tablet 00:00: [address] clonazePAM 2018-09 Yes Univers 0.5 mg 1-04 ity of tablet 00:00: [address] clonazePAM 2018-09 Yes Univers 0.5 mg 1-04 ity of tablet 00:00: [address] clonazePAM 2018-09 Yes Univers 0.5 mg 1-04 ity of tablet 00:00: [place] [facility] clonazePAM 2018-09 Yes Univers 0.5 mg 1-04 ity of tablet 00:00: [place] [facility] clonazePAM 2018-09 Yes Univers 0.5 mg 1-04 ity of tablet 00:00: [address] clonazePAM 2018-09 Yes Univers 0.5 mg 1-04 ity of tablet 00:00: [address] clonAZEPAM 2018-09 Yes .25mg [id number] Take 0.25 [facility] (KlonoPIN) 1-[id number] 0.5 MG 00:00: 3D mouth 3 Hospita tablet 00 (three) l times a day as needed for anxiety. clonAZEPAM 2018-09 Yes .25mg Q.[id number] Take 0.25 [facility] (KlonoPIN) 1-[id number] 0.5 MG 00:00: 3D mouth 3 Hospita tablet 00 (three) l times a day as needed for anxiety. clonAZEPAM 2018-09 Yes .25mg Q.[id number] Take 0.25 [facility] (KlonoPIN) 1-[id number] 0.5 MG 00:00: 3D mouth 3 [facility]ospita tablet 00 (three) l times a day as needed for anxiety. clonAZEPAM 2018-09 Yes .25mg Q.[id number] Take 0.25 [facility] (KlonoPIN) 1-[id number] 0.5 MG 00:00: 3D mouth 3 [facility]ospita tablet 00 (three) l times a day as needed for anxiety. clonAZEPAM 2018-09 Yes .25mg Q.[id number] Take 0.25 [facility] (KlonoPIN) 1-[id number] 0.5 MG 00:00: 3D mouth 3 [facility]ospita tablet 00 (three) l times a day as needed for anxiety. clonAZEPAM 2018-09 Yes .25mg Q.[id number] Take 0.25 [facility] (KlonoPIN) 1-[id number] 0.5 MG 00:00: 3D mouth 3 Hospita tablet 00 (three) l times a day as needed for anxiety. clonAZEPAM 2018-09 Yes .25mg Q.[id number] Take 0.25 [facility] (KlonoPIN) 1-[id number] 0.5 MG 00:00: 3D mouth 3 Hospita tablet 00 (three) l times a day as needed for anxiety. clonAZEPAM 2018-09 Yes .25mg Q.[id number] Take 0.25 [facility] (KlonoPIN) 1-[id number] 0.5 MG 00:00: 3D mouth 3 [facility]ospita tablet 00 (three) l times a day as needed for anxiety. clonAZEPAM 2018-09 Yes .25mg Q.[id number] Take 0.25 [facility] (KlonoPIN) 1-[id number] 0.5 MG 00:00: 3D mouth 3 [facility]ospita tablet 00 (three) l times a day as needed for anxiety. clonAZEPAM 2018-09 Yes .25mg Q.[id number] Take 0.25 [facility] ([facility]) 1-[id number] 0.5 MG 00:00: 3D mouth 3 [facility] tablet 00 (three) l times a day as needed for anxiety. clonAZEPAM 2018-09 Yes .25mg Q.[id number] Take 0.25 [facility] ([facility]) 1-[id number] 0.5 MG 00:00: 3D mouth 3 [facility] tablet 00 (three) l times a day as needed for anxiety. clonAZEPAM 2018-09 Yes .25mg Q.[id number] Take 0.25 [facility] ([facility]) 1-[id number] 0.5 MG 00:00: 3D mouth 3 [facility] tablet 00 (three) l times a day as needed for anxiety. clonAZEPAM 2018-09 Yes .25mg Q.[id number] Take 0.25 [facility] ([facility]lon[facility]) 1-[id number] 0.5 MG 00:00: 3D mouth 3 [facility] tablet 00 (three) l times a day as needed for anxiety. clonAZEPAM 2018-09 Yes .25mg [id number] Take 0.25 [facility] ([facility] 1-[id number] 0.5 MG 00:00: [facility] tablet 00 (three) l times a day as needed for anxiety. clonAZEPAM 2018-09 Yes .25mg [id number] Take 0.25 [facility] ([facility]) 1-[id number] 0.5 MG 00:00: [facility] tablet 00 (three) l times a day as needed for anxiety. clonAZEPAM 2018-09 Yes .25mg [id number] Take 0.25 [facility] ([facility]) 1-[id number] 0.5 MG 00:00: [facility] tablet 00 (three) l times a day as needed for anxiety. clonAZEPAM 2018-09 Yes .25mg [id number] Take 0.25 [facility] ([facility]) 1-[id number] 0.5 MG 00:00: 3D mouth [facility] tablet 00 (three) l times a day as needed for anxiety. clonAZEPAM 2018-09 Yes .25mg Q.[id number] Take 0.25 [facility] ([facility]) 1-[id number] 0.5 MG 00:00: 3D [facility] tablet 00 (three) l times a day as needed for anxiety. clonAZEPAM 2018-09 Yes .25mg [id number] Take 0.25 [facility] ([facility]) 1-[id number] 0.5 MG 00:00: [facility] tablet 00 (three) l times a day as needed for anxiety. clonAZEPAM 2018-09 Yes .25mg [id number] Take 0.25 [facility] ([facility]) 1-[id number] 0.5 MG 00:00: [facility] tablet 00 (three) l times a day as needed for anxiety. PROAIR HFA Yes TAKE 2 Unive rs 90 7-31 PUFFS BY ity of mcg/actuati 00:00: MOUTH [place] on inhaler 00 EVERY 4 Medica l HOURS Branch NEEDED DULERA Yes TAKE 2 [facility] 200-5 7-31 PUFFS BY ity of mcg/actuati 00:00: MOUTH [place] on inhaler 00 TWICE A Medica l DAY FOR 2 Branch WEEKS THEN DAILY gabapentin Yes TAKE 1 Unive rs 600 mg 7-20 TABLET BY ity of tablet 00:00: MOUTH [place] 00 THREE Medical TIMES A Branch DAY FOR 28 DAY(S) gabapentin 2016- Yes TAKE 1 Unive rs 600 mg 7-20 TABLET BY ity of tablet 00:00: MOUTH [place] 00 THREE Medical TIMES A Branch DAY FOR 28 DAY(S) gabapentin 2016- Yes TAKE 1 Unive rs 600 mg 7-20 TABLET BY ity of tablet 00:00: MOUTH 00 THREE Medical TIMES A Branch DAY FOR 28 DAY(S) gabapentin 2016- Yes TAKE 1 Unive rs 600 mg 7-20 TABLET BY ity of tablet 00:00: MOUTH 00 THREE Medical TIMES A Branch DAY FOR 28 DAY(S) gabapentin 2016- Yes TAKE 1 Unive rs 600 mg 7-20 TABLET BY ity of tablet 00:00: MOUTH 00 THREE Medical TIMES A Branch DAY FOR 28 DAY(S) gabapentin 2016- Yes TAKE 1 Unive rs 600 mg 7-20 TABLET BY ity of tablet 00:00: MOUTH 00 THREE Medical TIMES A Branch DAY FOR 28 DAY(S) gabapentin 2016- Yes TAKE 1 Unive rs 600 mg 7-20 TABLET BY ity of tablet 00:00: MOUTH 00 THREE Medical TIMES A Branch DAY FOR 28 DAY(S) gabapentin 2017- Yes TAKE 1 Unive rs 600 mg 7-20 TABLET BY ity of tablet 00:00: MOUTH 00 THREE Medical TIMES A Branch DAY FOR 28 DAY(S) gabapentin 2017- Yes TAKE 1 Unive rs 600 mg 7-20 TABLET BY ity of tablet 00:00: MOUTH 00 THREE Medical TIMES A Branch DAY FOR 28 DAY(S) gabapentin 2016-2021- No TAKE 1 Univ ers 600 mg [...] Promethazin No Notes: Do M emoria e -07 not give l 15:14: IV push. Vaughn [...] 10 MG Oral hen. (Same Tablet as: [place] 325/10) Lactated No 1,000 mL, Danie brielle Ringers 01-03 Rate: 125 l 1,000 mL 15:14: ml/hr, [place] 00 Infuse over: 8 hr, Route: IV, Dosing Weight 108.636 kg, Total Volume: 1,000, Start date: 01/03/17 10:14:00 CDT, Duration: 30 day, Stop date: 02/02/17 10:13:00 CDT Promethazin No Notes: Do Jaxon emoria e - not give l 15:14: IV push. [place] (Same as: Phenergan) Hydromorpho No Notes: Danie brielle ne 01-03 Same as l 15:14: Dilaudid [place] Ondansetron No Notes: Danie brielle 01-03 (Same as: l 15:14: Zofran) [place] 00 MEDICATION WASTE Product Size: 4 mg Product Wasted: ___ mg Acetaminoph No Notes: Do M emoria en 325 MG / 01-03 not exceed l Hydrocodone 15:14: 4gm/day of [place] Bitartrate 00 acetaminop 10 MG Oral hen. (Same Tablet as: [place] 325/10) Lactated No 1,000 mL, Danie brielle Ringers 01-03 Rate: 125 l 1,000 mL 14:15: ml/hr, Vaughn 00 Infuse over: 8 hr, Route: IV, Dosing Weight 108.636 kg, Total Volume: 1,000, Start date: 01/03/17 9:15:00 CDT, Duration: 30 day, Stop date: 02/02/17 9:14:00 CDT Lactated 2016- No 1,000 mL, Danie brielle Ringers 4-07 Rate: 125 l 1,000 mL 14:15: ml/hr, [place] 00 Infuse over: 8 hr, Route: IV, Dosing Weight 108.636 kg, Total Volume: 1,000, Start date: 01/03/17 9:15:00 CDT, Duration: 30 day, Stop date: 02/02/17 9:14:00 CDT Lactated No 1,000 mL, Danie brielle Ringers 3-16 Rate: 125 l 1,000 mL 13:34: ml/hr, [place] 00 Infuse over: 8 hr, Route: IV, Dosing Weight 108.778 kg, Total Volume: 1,000, Start date: 12/12/16 8:34:00 CDT, Duration: 30 day, Stop date: 01/11/17 8:33:00 CDT Acetaminoph No Notes: Do M emoria en 325 MG / 3-16 not exceed l Hydrocodone 13:34: 4gm/day of [place] Bitartrate 00 acetaminop 10 MG Oral hen. (Same Tablet as: [place] 325/10) Hydromorpho No Notes: Danie brielle ne 3-16 Same as l 13:34: Dilaudid [place] Promethazin No Notes: Do M emoria e 3-16 not give l 13:34: IV push. Vaughn 00 (Same as: Phenergan) Ondansetron No Notes: Danie brielle 3-16 (Same as: l 13:34: Zofran) [place] 00 MEDICATION WASTE Product Size: 4 mg Product Wasted: ___ mg Lactated No 1,000 mL, Danie brielle Ringers 3-16 Rate: 125 l 1,000 mL 13:34: ml/hr, [place] 00 Infuse over: 8 hr, Route: IV, Dosing Weight 108.778 kg, Total Volume: 1,000, Start date: 12/12/16 8:34:00 CDT, Duration: 30 day, Stop date: 01/11/17 8:33:00 CDT Acetaminoph No Notes: Do M emoria en 325 MG / 3-16 not exceed l Hydrocodone 13:34: 4gm/day of [place] Bitartrate 00 acetaminop 10 MG Oral hen. (Same Tablet as: [place] 325/10) Hydromorpho No Notes: Danie brielle ne [...] day, Stop date: 01/11/17 7:23:00 CDT Lactated No 1,000 mL, Danie brielle Ringers 3-16 Rate: 125 l 1,000 mL 12:24: ml/hr, Vaughn 00 Infuse over: 8 hr, Route: IV, Dosing Weight 108.778 kg, Total Volume: 1,000, Start date: 12/12/16 7:24:00 CDT, Duration: 30 day, Stop date: 01/11/17 7:23:00 CDT Phenergan Yes 25 mg = 1 Mem oria 25 mg oral 3-13 tab, PO, l tablet 12:36: Q6H, PRN [place] 00 Nausea, 0 Refill(s) Ondansetron Yes 8 mg = 1 Me moria 8 MG Oral 3-13 tab, PO, l Tablet 12:36: TID, PRN [place] 00 Nausea, 0 Refill(s) 8 HR 2017 [...] tab, PO, l tablet 12:36: Q6H, PRN [place] 00 Nausea, 0 Refill(s) Ondansetron Yes 8 [...] [Flexeril] tramadol Yes 50 mg = 1 Danei brielle hydrochlori 3-13 tab, PO, l de [...] capsule HOUR Branch BEFORE A MEAL Dexlansopra 20172021- No TAKE ONE U nivers zole 3-06 11-11 CAPSULE BY ity of (DEXILANT) 00:00: 00:00 [...] 21:10: Pain, X 7 Shobha nn Phosphate day, # 42 30 MG Oral tab, 0 Tablet Refill(s) [Tylenol with Codeine #3] Morphine 2015-09 No Notes: Memoria 2-22 (Same l 20:06: as:MORPhin [place] 00 e Sulfate) Saline 2015-09 No Notes: Memoria Flush 0.9% 2-22 (Same as: l 20:06: BD [place] 00 Posiflush) Morphine 2015-09 No Notes: Memoria 2-22 (Same l 20:06: as:MORPhin [place] 00 e Sulfate) Saline 2015-09 No Notes: Memoria Flush 0.9% 2-22 (Same as: l 20:06: BD [place] 00 Posiflush) [place] 2012-09 No Butch 1 tab, Memoria 10 oral -20 Patrick Route: PO, l tablet 06:46: [facility] Drug Form: H ermann 00 TAB, Dosing Weight 90.909, kg, ONCE, Start date: 08/18/13 0:46:00, Stop date: 08/18/13 0:46:00Do not exceed 4gm/day of acetaminop hen. (Same as: [place] 325/10) [place] 2012-09 No Butch 1 tab, Memoria 10/325 oral 1-20 Patrick Route: PO, l tablet 06:46: [facility] Drug Form: H ermann 00 TAB, Dosing Weight 90.909, kg, ONCE, Start date: 08/18/13 0:46:00, Stop date: 08/18/13 0:46:00Do not exceed 4gm/day of acetaminop hen. (Same as: [place] 325/10) Robaxin 500 2012-09 Yes Juan 1,000 mg, Memoria mg oral 1-20 Papa 2 tab, PO, l tablet 06:11: Inder QID, 40 [place] 13 tab, Substituti on Allowed Robaxin 500 2012-09 Yes Juan 1,000 mg, Memoria mg oral 1-20 Papa 2 tab, PO, l tablet 06:11: Inder QID, 40 [place] 13 tab, Substituti on Allowed tramadol 50 2012-09 Yes Juan 50 mg, 1 Memoria mg oral 1-20 Papa tab, PO, l tablet 06:11: Inder Q4H, PRN, Shobha nn 04 60 tab, Pain, Substituti on Allowed, TAB tramadol 50 2012-09 Yes Juan 50 mg, 1 Memoria mg oral 1-20 Papa tab, PO, l tablet 06:11: Inder Q4H, PRN, Shobha nn 04 60 tab, Pain, Substituti on Allowed, TAB tramadol 50 2012-09 Yes Juan 50 mg, 1 Memoria mg oral 1-20 Papa tab, PO, l tablet 05:38: Inder Q4H, PRN, Shobha nn 09 60 tab, Pain, Substituti on Allowed, TAB tramadol 50 2012-09 Yes Juan 50 mg, 1 Memoria mg oral 1-20 Papa tab, PO, l tablet 05:38: Inder Q4H, PRN, Shobha nn 09 60 tab, Pain, Substituti on Allowed, TAB Robaxin 500 2012-09 Yes Juan 1,000 mg, Memoria mg oral 1-20 Papa 2 tab, PO, l tablet 05:37: Inder QID, 40 Vaughn 50 tab, Substituti on Allowed Robaxin 500 2012-09 Yes Juan 1,000 mg, Memoria mg oral 1-20 Papa 2 tab, PO, l tablet 05:37: Inder QID, 40 [place] 50 tab, Substituti on Allowed Robaxin 500 2012-09 Yes Juan 1,000 mg, Memoria mg oral 1-20 Papa 2 tab, PO, l tablet 05:34: Inder QID, 40 [place] 36 tab, Substituti on Allowed Robaxin 500 2012-09 Yes Juan 1,000 mg, Memoria mg oral 1-20 Papa 2 tab, PO, l tablet 05:34: Inder QID, 40 [place] 36 tab, Substituti on Allowed tramadol 50 2012-09 Yes Juan 50 mg, 1 Memoria mg oral 1-20 Papa tab, PO, l tablet 05:34: Inder Q4H, PRN, Shobha nn 23 60 tab, Pain, Substituti on Allowed, TAB tramadol 50 2012-09 Yes Juan 50 mg, 1 Memoria mg oral 1-20 Papa tab, PO, l tablet 05:34: Inder Q4H, PRN, Shobha nn 23 60 tab, Pain, Substituti on Allowed, TAB Robaxin 500 2012-09 Yes Juan 1,000 mg, Memoria mg oral 1-20 Papa 2 tab, PO, l tablet 05:29: Inder QID, 40 [place] 52 tab, Substituti on Allowed Robaxin 500 2012-09 Yes Juan 1,000 mg, Memoria mg oral 1-20 Papa 2 tab, PO, l tablet 05:29: Inder QID, 40 [place] 52 tab, Substituti on Allowed tramadol 50 2012-09 Yes Juan 50 mg, 1 Memoria mg oral 1-20 Papa tab, PO, l tablet 05:26: Inder Q4H, PRN, Shobha nn 44 60 tab, Pain, Substituti on Allowed, TAB tramadol 50 2012-09 Yes Juan 50 mg, 1 Memoria mg oral 1-20 Papa tab, PO, l tablet 05:26: Inder Q4H, PRN, Shobha nn 44 60 tab, Pain, Substituti on Allowed, TAB tramadol 50 2012-09 Yes Juan 50 mg, 1 Memoria mg oral 1-20 Papa tab, PO, l tablet 05:26: Inder Q4H, PRN, Shobha nn 12 60 tab, Pain, Substituti on Allowed, TAB tramadol 50 2012-09 Yes Juan 50 mg, 1 Memoria mg oral 1-20 Papa tab, PO, l tablet 05:26: Inder Q4H, PRN, Shobha nn 12 60 tab, Pain, Substituti on Allowed, TAB morphine 2012-09 No Juan 4 mg, Memor ia Sulfate 1-20 Papa Route: l 04:00: Inder IVP, Drug Vaughn form: INJ, ONCE, Dosing Weight 90.909, kg, Priority: STAT, Start date: 08/17/13 22:00:00, Stop date: 08/17/13 22:00:00 morphine 2012-09 No Juan 4 mg, Memor ia Sulfate 1-20 Papa Route: l 04:00: Inder IVP, Drug [place] form: INJ, ONCE, Dosing Weight 90.909, kg, Priority: STAT, Start date: 08/17/13 22:00:00, Stop date: 08/17/13 22:00:00 NS (Bolus) 2012-09 No Juan 1,000 mL, Memoria IV 1000 mL 1-20 Papa Rate: l 03:42: Inder 1,000 [place] 00 ml/hr, Infuse over: 1 hr, Route: IV, Dosing Weight 90.909 kg, Total Volume: 1,000, Priority: STAT, Start date: 08/17/13 21:42:00, Duration: 1 doses or times, Stop date: 08/17/13 22:41:00, Bolus DoseBolus Dose NS (Bolus) 2012-09 No Juan 1,000 mL, Memoria IV 1000 mL 1-20 Papa Rate: l 03:42: Inder 1,000 Vaughn 00 ml/hr, Infuse over: 1 hr, Route: IV, Dosing Weight 90.909 kg, Total Volume: 1,000, Priority: STAT, Start date: 08/17/13 21:42:00, Duration: 1 doses or times, Stop date: 08/17/13 22:41:00, Bolus DoseBolus Dose Visipaque 2012-09 No Rin H 114 mL, Me moria 320mg/ml 1-20 Berkley Route: l 02:33: IVP, Drug [place] 00 Form: SOLN, Dosing Weight 90.909, kg, ONCALL, STAT, Start date: 11/19/13 20:33:00, Duration: 1 doses or times, Dose = 2.2ml/kg, Max dose = 100ml -- "To be infused by Radiology Staff ONLY"Dose = 2.2ml/kg, Max dose = 100ml -- "To be infused by Radiology Staff ONLY" Visipaque 2012-09 No Rin H 114 mL, Me moria 320mg/ml 1-20 Berkley Route: l 02:33: IVP, Drug [place] 00 Form: SOLN, Dosing Weight 90.909, kg, ONCALL, STAT, Start date: 08/17/13 20:33:00, Duration: 1 doses or times, Dose = 2.2ml/kg, Max dose = 100ml -- "To be infused by Radiology Staff ONLY"Dose = 2.2ml/kg, Max dose = 100ml -- "To be infused by Radiology Staff ONLY" Saline 2012-09 No Juan 5 mL, Memoria Flush 0.9% 1-20 Papa Route: l 02:15: Inder MISC, Drug Jalil n 00 Form: INJ, Dosing Weight 90.909, kg, PRN, PRN Line Flush, Administer at least once every 12 hours, Start date: 08/17/13 20:15:00, Duration: 30 day, Stop date: 09/16/13 20:14:00(S sahara as: BD Posiflush) ondansetron 2012-09 No Juan 4 mg, 2 Memoria 1-20 Papa mL, Route: l 02:15: Inder IVP, Drug [place] 00 form: INJ, ONCE, Dosing Weight 90.909, kg, Priority: STAT, Start date: 08/17/13 20:15:00, Stop date: 08/17/13 20:15:00(S sahara as: Zofran) morphine 2012-09 No Juan 6 mg, Memor ia Sulfate 1-20 Papa Route: l 02:15: Inder IVP, ONCE, Jalil n 00 Dosing Weight 90.909, kg, Priority: STAT, Start date: 08/17/13 20:15:00, Stop date: 08/17/13 20:15:00 Saline 2012-09 No Juan 5 mL, Memoria Flush 0.9% 1-20 Papa Route: l 02:15: Inder MISC, Drug Jalil n 00 Form: INJ, Dosing Weight 90.909, kg, PRN, PRN Line Flush, Administer at least once every 12 hours, Start date: 08/17/13 20:15:00, Duration: 30 day, Stop date: 09/16/13 20:14:00(S sahara as: BD Posiflush) ondansetron 2012-09 No Juan 4 mg, 2 Memoria 1-20 Papa mL, Route: l 02:15: Inder IVP, Drug [place] 00 form: INJ, ONCE, Dosing Weight 90.909, kg, Priority: STAT, Start date: 08/17/13 20:15:00, Stop date: 08/17/13 20:15:00(S sahara as: Zofran) morphine 2012-09 No Juan 6 mg, Memor ia Sulfate 1-20 Papa Route: l 02:15: Inder IVP, ONCE, Jalil n 00 Dosing Weight 90.909, kg, Priority: STAT, Start date: 08/17/13 20:15:00, Stop date: 08/17/13 20:15:00 Immunizations Ordered Filled Immunization Date Status Comments [facility] e Immunization Name Name Influenza Virus 2022-05-30 Completed Julissa Se ybold Vaccine, age 8 00:00:00 - External months and up Influenza Virus 2022-05-30 Completed Julissa Se ybold Vaccine, age 8 00:00:00 - External months and up Influenza Virus 2022-05-30 Completed Julissa Se ybold Vaccine, age 6 00:00:00 - External months and up Influenza Virus 2022-05-30 Completed Julissa Se ybold Vaccine, age 6 00:00:00 - External months and up Influenza Virus 2022-05-30 Completed Julissa Se ybold Vaccine, age 6 00:00:00 - External months and up Influenza Virus 2022-05-30 Completed Julissa Se ybold Vaccine, age 8 00:00:00 - External months and up Influenza Virus 2022-05-30 Completed Julissa Se ybold Vaccine, age 6 00:00:00 - External months and up Influenza Virus 2022-05-30 Completed Julissa Se ybold Vaccine, age 6 00:00:00 - External months and up Influenza Virus 2022-05-30 Completed Julissa Se ybold Vaccine, age 6 00:00:00 - External months and up Influenza Virus 2022-05-30 Completed Julissa Se ybold Vaccine, age 6 00:00:00 - External months and up Influenza Virus 2022-05-30 Completed Julissa Se ybold Vaccine, age 6 00:00:00 - External months and up Influenza Virus 2022-05-30 Completed Julissa Se ybold Vaccine, age 6 00:00:00 - External months and up Influenza Virus 2022-05-30 Completed Julissa Se ybold Vaccine, age 6 00:00:00 - External months and up Influenza Virus 2022-05-30 Completed Julissa Se ybold Vaccine, age 6 00:00:00 - External months and up Influenza Virus 2022-05-30 Completed Julissa Se ybold Vaccine, age 6 00:00:00 - External months and up Influenza Virus 2022-05-30 Completed Julissa Se ybold Vaccine, age 6 00:00:00 - External months and up Influenza Virus 2022-05-30 Completed Julissa Se ybold Vaccine, age 6 00:00:00 - External months and up Influenza Virus 2022-05-30 Completed Julissa Se ybold Vaccine, age 6 00:00:00 - External months and up Influenza Virus 2022-05-30 Completed Julissa Se ybold Vaccine, age 6 00:00:00 - External months and up Influenza Virus 2022-05-30 Completed Julissa Se ybold Vaccine, age 6 00:00:00 - External months and up Covid-19 Vaccine 2021-11-27 Completed Julissa sancehz Moderna (Spikevax), 00:00:00 - Ext ernal Mrna-lnp, Sae Protein, Pf Covid-19 Vaccine 2021-11-27 Completed Julissa sanchez Moderna (Spikevax), 00:00:00 - Ext ernal Mrna-lnp, Sae Protein, Pf Covid-19 Vaccine 2021-11-27 Completed Julissa sanchez Moderna (Spikevax), 00:00:00 - Ext ernal Mrna-lnp, Sae Protein, Pf Covid-19 Vaccine 2021-11-27 Completed Julissa sanchez Moderna (Spikevax), 00:00:00 - Ext ernal Mrna-lnp, Sae Protein, Pf Covid-19 Vaccine 2021-11-27 Completed Julissa sanchez Moderna (Spikevax), 00:00:00 - Ext ernal Mrna-lnp, Sae Protein, Pf Covid-19 Vaccine 2021-11-27 Completed Julissa sanchez Moderna (Spikevax), 00:00:00 - Ext ernal Mrna-lnp, Sae Protein, Pf Covid-19 Vaccine 2021-11-27 Completed Julissa sanchez Moderna (Spikevax), 00:00:00 - Ext ernal Mrna-lnp, Sae Protein, Pf Covid-19 Vaccine 2021-11-27 Completed Julissa sanchez Moderna (Spikevax), 00:00:00 - Ext ernal Mrna-lnp, Sae Protein, Pf Covid-19 Vaccine 2021-11-27 Completed Julissa sanchez Moderna (Spikevax), 00:00:00 - Ext ernal Mrna-lnp, Sae Protein, Pf Covid-19 Vaccine 2021-11-27 Completed Julissa sanchez Moderna (Spikevax), 00:00:00 - Ext ernal Mrna-lnp, Sae Protein, Pf Covid-19 Vaccine 2021-09-26 Completed Julissa sanchez Moderna (Spikevax), 00:00:00 - Ext ernal Mrna-lnp, Sae Protein, Pf Influenza Virus 2021-09-26 Completed Julissa Medley ybold Vaccine, No 00:00:00 - External Preserv, age 6 months and up Covid-19 Vaccine 2021-09-26 Completed Julissa gibbsld Moderna (Spikevax), 00:00:00 - Ext ernal Mrna-lnp, Sae Protein, Pf Influenza Virus 2021-09-26 Completed Julissa Medley ybold Vaccine, No 00:00:00 - External Preserv, age 6 months and up Covid-19 Vaccine 2021-09-26 Completed Julissa Lacy eybold Moderna (Spikevax), 00:00:00 - Ext ernal Mrna-lnp, Sae Protein, Pf Influenza Virus 2021-09-26 Completed Julissa Medley ybold Vaccine, No 00:00:00 - External Preserv, age 6 months and up Covid-19 Vaccine 2021-09-26 Completed Julissa S eybold Moderna (Spikevax), 00:00:00 - Ext ernal Mrna-lnp, Sae Protein, Pf Influenza Virus 2021-09-26 Completed Julissa Se ybold Vaccine, No 00:00:00 - External Preserv, age 6 months and up Covid-19 Vaccine 2021-09-26 Completed Julissa S eybold Moderna (Spikevax), 00:00:00 - Ext ernal Mrna-lnp, Sae Protein, Pf Influenza Virus 2021-09-26 Completed Julissa Se ybold Vaccine, No 00:00:00 - External Preserv, age 6 months and up Covid-19 Vaccine 2021-09-26 Completed Julissa S eybold Moderna (Spikevax), 00:00:00 - Ext ernal Mrna-lnp, Sae Protein, Pf Influenza Virus 2021-09-26 Completed Julissa Medley ybold Vaccine, No 00:00:00 - External Preserv, age 6 months and up Covid-19 Vaccine 2021-09-26 Completed Julissa S eybold Moderna (Spikevax), 00:00:00 - Ext ernal Mrna-lnp, Sae Protein, Pf Influenza Virus 2021-09-26 Completed Julissa Se ybold Vaccine, No 00:00:00 - External Preserv, age 6 months and up Covid-19 Vaccine 2021-09-26 Completed Julissa S eybold Moderna (Spikevax), 00:00:00 - Ext ernal Mrna-lnp, Sae Protein, Pf Influenza Virus 2021-09-26 Completed Julissa Se ybold Vaccine, No 00:00:00 - External Preserv, age 6 months and up Covid-19 Vaccine 2021-08-29 Completed Julissa S eybold Moderna (Spikevax), 00:00:00 - Ext ernal Mrna-lnp, Sae Protein, Pf Covid-19 Vaccine 2021-08-29 Completed Julissa S eybold Moderna (Spikevax), 00:00:00 - Ext ernal Mrna-lnp, Sae Protein, Pf Covid-19 Vaccine 2021-08-29 Completed Julissa S eybold Moderna (Spikevax), 00:00:00 - Ext ernal Mrna-lnp, Sae Protein, Pf Covid-19 Vaccine 2021-08-29 Completed Julissa sanchez Moderna (Spikevax), 00:00:00 - Ext ernal Mrna-lnp, Sae Protein, Pf Covid-19 Vaccine 2021-08-29 Completed Julissa sanchez Moderna (Spikevax), 00:00:00 - Ext ernal Mrna-lnp, Sae Protein, Pf Covid-19 Vaccine 2021-08-29 Completed Julissa sanchez Moderna (Spikevax), 00:00:00 - Ext ernal Mrna-lnp, Sae Protein, Pf Covid-19 Vaccine 2021-08-29 Completed Julissa sanchez Moderna (Spikevax), 00:00:00 - Ext ernal Mrna-lnp, Sae Protein, Pf Covid-19 Vaccine 2021-08-29 Completed Julissa sanchez Moderna (Spikevax), 00:00:00 - Ext ernal Mrna-lnp, Sae Protein, Pf Covid-19 Vaccine 2021-08-29 Completed Julissa sanchez Moderna (Spikevax), 00:00:00 - Ext ernal Mrna-lnp, Sae Protein, Pf Covid-19 Vaccine 2021-08-29 Completed Julissa sanchez Moderna (Spikevax), 00:00:00 - Ext ernal Mrna-lnp, Sae Protein, Pf Covid-19 Vaccine 2021-07-30 Completed Julissa sanchez Moderna (Spikevax), 00:00:00 - Ext ernal Mrna-lnp, Sae Protein, Pf Covid-19 Vaccine 2021-07-30 Completed Julissa sanchez Moderna (Spikevax), 00:00:00 - Ext ernal Mrna-lnp, Sae Protein, Pf Covid-19 Vaccine 2021-07-30 Completed Julsisa sanchez Moderna (Spikevax), 00:00:00 - Ext ernal Mrna-lnp, Sae Protein, Pf Covid-19 Vaccine 2021-07-30 Completed Julissa sanchez Moderna (Spikevax), 00:00:00 - Ext ernal Mrna-lnp, Sae Protein, Pf Covid-19 Vaccine 2021-07-30 Completed [facility] evonnegra Moderna (Spikevax), 00:00:00 - Ext ernal Mrna-lnp, Sae Protein, Pf Covid-19 Vaccine 2021-07-30 Completed [facility] (Spikevax), 00:00:00 - Ext ernal Mrna-lnp, Sae Protein, Pf Covid-19 Vaccine 2021-07-30 Completed [facility] Moderna (Spikevax), 00:00:00 - Ext ernal Mrna-lnp, Sae Protein, Pf Covid-19 Vaccine 2021-07-30 Completed [facility] Modern[facility] (Spikevax), 00:00:00 - Ext ernal Mrna-lnp, Sae Protein, Pf Covid-19 Vaccine 2021-07-30 Completed [facility] (Spikevax), 00:00:00 - Ext ernal Mrna-lnp, Sae Protein, Pf Covid-19 Vaccine 2021-07-30 Completed [facility] (Spikevax), 00:00:00 - Ext ernal Mrna-lnp, Sae Protein, Pf Influenza Virus Unknown Completed [facility] rusty Vaccine, age 6 - External months and up Covid-19 Vaccine Unknown Completed [facility] (Spikevax), - Ext ernal Mrna-lnp, Sae Protein, Pf Covid-19 Vaccine Unknown Completed [facility] Sera (Spikevax), - Ext ernal Mrna-lnp, Sae Protein, Pf Covid-19 Vaccine Unknown Completed [facility] Denga (Spikevax), - Ext ernal Mrna-lnp, Sae Protein, Pf Covid-19 Vaccine Unknown Completed [facility] Denga (Spikevax), - Ext ernal Mrna-lnp, Sae Protein, Pf Influenza Virus Unknown Completed [facility] rusty Vaccine, No - External Preserv, age 6 months and up Influenza Virus Unknown Completed [facility] rusty Vaccine, age 6 - External months and up Covid-19 Vaccine Unknown Completed [facility] Denga (Spikevax), - Ext ernal Mrna-lnp, Sae Protein, Pf Covid-19 Vaccine Unknown Completed [facility] Denga (Spikevax), - Ext ernal Mrna-lnp, Sae Protein, Pf Covid-19 Vaccine Unknown Completed Julissa Bambi Vilchisa (Spikevax), - Ext ernal Mrna-lnp, Sae Protein, Pf Covid-19 Vaccine Unknown Completed Julissa Bambi Vilchisa (Spikevax), - Ext ernal Mrna-lnp, Sae Protein, Pf Influenza Virus Unknown Completed Julissa Se rusty Vaccine, No - External Preserv, age 6 months and up Influenza Virus Unknown Completed Julissa Se rusty Vaccine, age 6 - External months and up Covid-19 Vaccine Unknown Com[facility] (Spikevax), - Ext ernal Mrna-lnp, Sae Protein, Pf Covid-19 Vaccine Unknown Completed [facility] (Spikevax), - Ext ernal Mrna-lnp, Sae Protein, Pf Covid-19 Vaccine Unknown Completed [facility] (Spikevax), - Ext ernal Mrna-lnp, Sae Protein, Pf Covid-19 Vaccine Unknown Completed Julissa Bambi barnardnegra Vilchisa (Spikevax), - Ext ernal Mrna-lnp, Sae Protein, Pf Influenza Virus Unknown Completed Julissa ojeda Vaccine, No - External Preserv, age 6 months and up Influenza Virus Unknown Completed Julissa rusty Vaccine, age 6 - External months and up Covid-19 Vaccine Unknown Completed [facility] D[facility]a (Spikevax), - Ext ernal Mrna-lnp, Sae Protein, Pf Covid-19 Vaccine Unknown Completed Julissa Bambi Vilchisa (Spikevax), - Ext ernal Mrna-lnp, Sae Protein, Pf Covid-19 Vaccine Unknown Completed [facility] Denga (Spikevax), - Ext ernal Mrna-lnp, Sae Protein, Pf Covid-19 Vaccine Unknown Completed Julissa Bambi gibbs Denga (Spikevax), - Ext ernal Mrna-lnp, Sae Protein, Pf Influenza Virus Unknown Completed Julissa ojeda Vaccine, No - External Preserv, age 6 months and up Influenza Virus Unknown Completed Julissa ojeda Vaccine, age 8 - External months and up Covid-19 Vaccine Unknown Completed [facility] eyjackelyn Vilchisa (Spikevax), - Ext ernal Mrna-lnp, Sae Protein, Pf Covid-19 Vaccine Unknown Completed Julissa Bambi Vilchisa (Spikevax), - Ext ernal Mrna-lnp, Sae Protein, Pf Covid-19 Vaccine Unknown Completed Julissa Bambi Zamora (Spikevax), - Ext ernal Mrna-lnp, Sae Protein, Pf Covid-19 Vaccine Unknown Completed [facility] laura Vilchisa (Spikevax), - Ext ernal Mrna-lnp, Sae Protein, Pf Influenza Virus Unknown Completed Julissa Se rusty Vaccine, No - External Preserv, age 6 months and up Influenza Virus Unknown Completed [facility] rusty Vaccine, age 8 - External months and up Covid-19 Vaccine Unknown Completed [facility] laura Zamora (Spikevax), - Ext ernal Mrna-lnp, Sae Protein, Pf Covid-19 Vaccine Unknown Completed [facility] laura Zamora (Spikevax), - Ext ernal Mrna-lnp, Sae Protein, Pf Covid-19 Vaccine Unknown Completed [facility] laura Zamora (Spikevax), - Ext ernal Mrna-lnp, Sae Protein, Pf Covid-19 Vaccine Unknown Completed Julissa Bambi Zamora (Spikevax), - Ext ernal Mrna-lnp, Sae Protein, Pf Influenza Virus Unknown Completed [facility] rusty Vaccine, No - External Preserv, age 6 months and up Influenza Virus Unknown Completed [facility] rusty Vaccine, age 8 - External months and up Covid-19 Vaccine Unknown Completed [facility] laura Zamora (Spikevax), - Ext ernal Mrna-lnp, Sae Protein, Pf Covid-19 Vaccine Unknown Completed [facility] laura Zamora (Spikevax), - Ext ernal Mrna-lnp, Sae Protein, Pf Covid-19 Vaccine Unknown Completed Julissa Bambi Vilchisa (Spikevax), - Ext ernal Mrna-lnp, Sae Protein, Pf Covid-19 Vaccine Unknown Completed [facility] laura Zamora (Spikevax), - Ext ernal Mrna-lnp, Sae Protein, Pf Influenza Virus Unknown Completed [facility] rusty Vaccine, No - External Preserv, age 6 months and up Vital Signs Vital Name Observation Time Observation Value Comments Source Systolic blood 2023-08-13 114 mm[Hg] Julissa Seybol d - pressure 21:11:00 External Diastolic blood 2023-08-13 80 mm[Hg] Julissa Seybo ld - pressure 21:11:00 External Heart rate 2023-08-13 132 /min Julissa Seybold - 21:11:00 External Body temperature 2023-08-13 36.72 Mary Julissa Seyb old - :11:00 External Respiratory rate 2023-08-13 15 /min Julissa Seyb old - :11: External Body height 2023-08-13 172.7 cm Julissa Seybold - :11: External WEIGHT 2023-07-31 123.288 kg 05:06:00 HEIGHT 2023-07-30 172.7 cm 07:14:00 WEIGHT 2023-07-30 123.832 kg 07:14:00 WEIGHT 2023-07-31 123.288 kg 05:06:00 HEIGHT 2023-07-30 172.7 cm 07:14:00 WEIGHT 2023-07-30 123.832 kg 07:14:00 Systolic blood 2023-07-04 117 mm[Hg] Julissa Seybol d - pressure 18:00:00 External Diastolic blood 2023-07-04 80 mm[Hg] Julissa Seybo ld - pressure 18:00:00 External Heart rate 2023-07-04 108 /min Julissa Medleyybold - 18:00:00 External Body height 2023-07-04 172.7 cm Julissa Seybold - 18:00:00 External Body weight 2023-07-04 127.461 kg Julissa Seybold - 18:00:00 External BMI 2023-07-04 42.73 kg/m2 Julissa Seybold - 18:00:00 External Systolic blood 2023-06-30 119 mm[Hg] Julissa Seybol d - pressure 15:43:00 External Diastolic blood 2023-06-30 78 mm[Hg] Julissa Seybo ld - pressure 15:43:00 External Heart rate 2023-06-30 126 /min Julissa Seybold - 15:43:00 External Body temperature 2023-06-30 36.89 Mary Julissa Seyb old - 15:43:00 External Respiratory rate 2023-06-30 14 /min Julissa Medleyyb old - 15:43:00 External Body weight 2023-06-30 122.471 kg Julissa Medleyybold - 15:43:00 External BMI 2023-06-30 41.05 kg/m2 Julissa Medleyybold - 15:43:00 External Oxygen saturation 2023-06-30 100 /min Julissa Smith bold - in Arterial blood 15:43:00 External by Pulse oximetry Systolic blood 2023-06-20 114 mm[Hg] Julissa Seybol d - pressure 19:49:00 External Diastolic blood 2023-06-20 80 mm[Hg] Julissa Seybo ld - pressure 19:49:00 External Heart rate 2023-06-20 106 /min Julissa Medleyybold - 19:49:00 External Body temperature 2023-06-20 36.83 Mary Julissa Medleyyb old - 19:49:00 External Respiratory rate 2023-06-20 16 /min Julissa Sullivan old - 19:49:00 External Body height 2023-06-20 172.7 cm Julissa Medleyybold - 19:49:00 External Body weight 2023-06-20 122.471 kg Julissa Medleyybold - 19:49:00 External BMI 2023-06-20 41.05 kg/m2 Julissa Medleyybold - 19:49:00 External WEIGHT 2023-06-18 122.834 kg 10:36:00 WEIGHT 2023-06-18 122.834 kg 10:36:00 Systolic blood 2023-06-11 114 mm[Hg] Julissa Seybol d - pressure 14:44:00 External Diastolic blood 2023-06-11 84 mm[Hg] Julissa Medleyybo ld - pressure 14:44:00 External Heart rate 2023-06-11 99 /min Julissa Medleyybold - 14:44:00 External Body temperature 2023-06-11 35.44 Mary Julissa Medleyyb old - 14:44:00 External Respiratory rate 2023-06-11 15 /min Julissa Medleyyb old - 14:44:00 External Body height 2023-06-11 172.7 cm Julissa Seybold - 14:44:00 External Body weight 2023-06-11 126.1 kg Julissa Seybold - 14:44:00 External BMI 2023-06-11 42.27 kg/m2 Julissa Medleyybold - 14:44:00 External Systolic blood 2023-05-28 128 mm[Hg] Julissa Seybol d - pressure 16:21: External Diastolic blood 2023-05-28 84 mm[Hg] Julissa Medleyybo ld - pressure 16:21: External Heart rate 2023-05-28 88 /min Julissa Medleyybold - 16:: External Body temperature 2023-05-28 36.33 Mary Julissa Medleyyb old - 16:21: External Respiratory rate 2023-05-28 20 /min Julissa Medleyyb old - 16:: External Body height 2023-05-28 172.7 cm Julissa Medleyybold - 16:: External Body weight 2023-05-28 129.275 kg Julissa Medleyybold - 16:: External BMI 2023-05-28 43.33 kg/m2 Julissa Medleyybold - 16:: External Oxygen saturation 2023-05-28 99 /min Julissa Medleyy bold - in Arterial blood 16:21:00 External by Pulse oximetry Systolic blood 2023-05-26 116 mm[Hg] Julissa Seybol d - pressure 14:22: External Diastolic blood 2023-05-26 78 mm[Hg] Julissa Medleyybo ld - pressure 14:: External Heart rate 2023-05-26 76 /min Julissa Medleyybold - 14:22: External Body temperature 2023-05-26 36.78 Mary Julissa Medleyyb old - 14:22:00 External Respiratory rate 2023-05-26 18 /min Julissa Medleyyb old - 14:22: External Body height 2023-05-26 175.3 cm Julissa Medleyybold - 14:22: External Body weight 2023-05-26 128.459 kg Julissa Medleyybold - 14:22: External BMI 2023-05-26 41.82 kg/m2 Julissa Medleyybold - 14:22:00 External Oxygen saturation 2023-05-26 100 /min Julissa Medleyy bold - in Arterial blood 14:22:00 External by Pulse oximetry WEIGHT 2023-05-20 123.016 kg 04:00:00 WEIGHT 2023-05-19 124.195 kg 04:00:00 WEIGHT 2023-05-18 125.646 kg 01:00:00 WEIGHT 2023-05-16 127.007 kg 05:30:00 WEIGHT 2023-05-15 125.646 kg 05:00:00 WEIGHT 2023-05-15 125.646 kg 01:00:00 WEIGHT 2023-05-20 123.016 kg 04:00:00 WEIGHT 2023-05-19 124.195 kg 04:00:00 WEIGHT 2023-05-18 125.646 kg 01:00:00 WEIGHT 2023-05-16 127.007 kg 05:30:00 WEIGHT 2023-05-15 125.646 kg 05:00:00 WEIGHT 2023-05-15 125.646 kg 01:00:00 WEIGHT 2023-05-12 122.471 kg 05:15:00 WEIGHT 2023-05-11 123.968 kg 05:00:00 WEIGHT 2023-05-08 121.383 kg 01:36:00 HEIGHT 2023-05-08 172.7 cm 01:04:00 WEIGHT 2023-05-12 122.471 kg 05:15:00 WEIGHT 2023-05-11 123.968 kg 05:00:00 WEIGHT 2023-05-08 121.383 kg 01:36:00 HEIGHT 2023-05-08 172.7 cm 01:04:00 WEIGHT 2023-05-03 126.3 kg 06:00:00 WEIGHT 2023-05-02 127.6 kg 06:00:00 WEIGHT 2023-05-01 126.5 kg 06:00:00 WEIGHT 2023-04-30 122.471 kg 10:30:00 WEIGHT 2023-05-03 126.3 kg 06:00:00 WEIGHT 2023-05-02 127.6 kg 06:00:00 WEIGHT 2023-05-01 126.5 kg 06:00:00 WEIGHT 2023-04-30 122.471 kg 10:30:00 Systolic blood 2023-03-11 104 mm[Hg] Julissa Guevara d - pressure 14:57:00 External Diastolic blood 2023-03-11 68 mm[Hg] Julissa Greene ld - pressure 14:57:00 External Heart rate 2023-03-11 75 /min Julissa Sullivanold - 14:57:00 External Body temperature 2023-03-11 35.44 Mary Julissa Sullivan old - 14:57:00 External Respiratory rate 2023-03-11 14 /min Julissa Sullivan old - 14:57:00 External Body height 2023-03-11 175.3 cm Julissa Shipman - 14:57:00 External Body weight 2023-03-11 125.193 kg Julissa Shipman - 14:57:00 External BMI 2023-03-11 40.76 kg/m2 Julissa Shipman - 14:57:00 External Systolic blood 2023-03-10 132 mm[Hg] Julissa Seybol d - pressure 21:25:00 External Diastolic blood 2023-03-10 89 mm[Hg] Julissa Medleyybo ld - pressure 21:25:00 External Heart rate 2023-03-10 75 /min Julissa Shipman - :25: External Body temperature 2023-03-10 37 Mary Julissa Sullivan old - :25: External Respiratory rate 2023-03-10 18 /min Julissa Sullivan old - :25: External Body height 2023-03-10 176.8 cm Julissa Shipman - :25: External Body weight 2023-03-10 122.925 kg Julissa Shipman - :25: External BMI 2023-03-10 39.33 kg/m2 Julissa Shipman - :25:00 External Oxygen saturation 2023-03-10 100 /min Julissa Ferdinand bold - in Arterial blood 21:25:00 External by Pulse oximetry Systolic blood 2023-02-13 115 mm[Hg] Julissa Seybol d - pressure :: External Diastolic blood 2023-02-13 68 mm[Hg] Julissa Seybo ld - pressure ::00 External Respiratory rate 2023-02-13 16 /min Julissa Sullivan old - :: External Body height 2023-02-13 172.7 cm Julissa Shipman - :31:00 External Oxygen saturation 2023-02-13 100 /min Julissa y bold - in Arterial blood 13:31:00 External by Pulse oximetry WEIGHT 2023-02-07 121.927 kg 16:00:00 WEIGHT 2023-02-07 121.201 kg 04:55:00 WEIGHT 2023-02-06 121.927 kg 09:00:00 WEIGHT 2023-02-05 122.108 kg 11:07:00 WEIGHT 2023-02-04 122.834 kg 13:00:00 WEIGHT 2023-02-03 123.651 kg 09:38:00 WEIGHT 2023-02-07 121.927 kg 16:00:00 WEIGHT 2023-02-07 121.201 kg 04:55:00 WEIGHT 2023-02-06 121.927 kg 09:00:00 WEIGHT 2023-02-05 122.108 kg 11:07:00 WEIGHT 2023-02-04 122.834 kg 13:00:00 WEIGHT 2023-02-03 123.651 kg 09:38:00 HEIGHT 2023-01-27 172.7 cm 14:06:00 WEIGHT 2023-01-27 126.554 kg 14:06:00 HEIGHT 2023-01-27 172.7 cm 14:06:00 WEIGHT 2023-01-27 126.554 kg 14:06:00 HEIGHT 2023-01-23 172.7 cm 14:58:00 WEIGHT 2023-01-23 129.275 kg 14:58:00 HEIGHT 2023-01-23 172.7 cm 14:58:00 WEIGHT 2023-01-23 129.275 kg 14:58:00 Systolic blood 2023-01-10 110 mm[Hg] Julissa Seybol d - pressure 18:05:00 External Diastolic blood 2023-01-10 69 mm[Hg] Julissa Seybo ld - pressure 18:05:00 External Heart rate 2023-01-10 88 /min Julissa Seybold - 18:05:00 External Body temperature 2023-01-10 36.83 Mary Julissa Medleyyb old - 18:05:00 External Respiratory rate 2023-01-10 15 /min Julissa Seyb old - 18:05:00 External Body height 2023-01-10 172.7 cm Julissa Medleyybold - 18:05:00 External Body weight 2023-01-10 128.368 kg Julissa Seybold - 18:05:00 External BMI 2023-01-10 43.03 kg/m2 Julissa Seybold - 18:05:00 External Oxygen saturation 2023-01-10 99 /min Julissa Smtih bold - in Arterial blood 18:05:00 External by Pulse oximetry Systolic blood 2022-12-10 124 mm[Hg] Julissa Seybol d - pressure 15:41:00 External Diastolic blood 2022-12-10 78 mm[Hg] Julissa Seybo ld - pressure 15:41:00 External Heart rate 2022-12-10 84 /min Julissa Seybold - 15:41:00 External Body temperature 2022-12-10 36.44 Mary Julissa Medleyyb old - 15:41:00 External Respiratory rate 2022-12-10 17 /min Julissa Seyb old - 15:41:00 External Body height 2022-12-10 172.7 cm Julissa Medleyybold - 15:41:00 External Body weight 2022-12-10 124.83 kg Julissa Seybold - 15:41:00 External BMI 2022-12-10 41.84 kg/m2 Julissa Seybold - 15:41:00 External Oxygen saturation 2022-12-10 100 /min Julissa Smith bold - in Arterial blood 15:41:00 External by Pulse oximetry Systolic blood 2022-11-26 114 mm[Hg] Julissa Seybol d - pressure 19:00:00 External Diastolic blood 2022-11-26 77 mm[Hg] Julissa Seybo ld - pressure 19:00:00 External Heart rate 2022-11-26 92 /min Julissa Seybold - 19:00:00 External Respiratory rate 2022-11-26 18 /min Julissa Seyb old - 19:00:00 External Body temperature 2022-11-26 36.94 Mary Julissa Medleyyb old - 16:10:00 External Oxygen saturation 2022-11-26 100 /min Julissa Smith bold - in Arterial blood 16:10:00 External by Pulse oximetry Body height 2022-11-26 172.7 cm Julissa Seybold - 16:04:00 External Body weight 2022-11-26 124.921 kg Julissa Seybold - 16:04:00 External BMI 2022-11-26 41.87 kg/m2 Julissa Medleyybold - 16:04:00 External Systolic blood 2022-11-15 98 mm[Hg] Julissa Seybol d - pressure 19:24:00 External Diastolic blood 2022-11-15 71 mm[Hg] Julissa Seybo ld - pressure 19:24:00 External Heart rate 2022-11-15 42 /min Julissa Medleyybold - 19:24:00 External Body temperature 2022-11-15 36.72 Mary Julissa Medleyyb old - 19:24:00 External Respiratory rate 2022-11-15 15 /min Julissa Medleyyb old - 19:24:00 External Body height 2022-11-15 172.7 cm Julissa Medleyybold - 19:24:00 External Body weight 2022-11-15 123.923 kg Julissa Medleyybold - 19:24:00 External BMI 2022-11-15 41.54 kg/m2 Julissa Medleyybold - 19:24:00 External Oxygen saturation 2022-11-15 99 /min Julissa Smith bold - in Arterial blood 19:24:00 External by Pulse oximetry Systolic blood 2022-11-12 110 mm[Hg] Julissa Seybol d - pressure 19:38:00 External Diastolic blood 2022-11-12 75 mm[Hg] Julissa Medleyybo ld - pressure 19:38:00 External Heart rate 2022-11-12 88 /min Julissa Medleyybold - :38:00 External Body temperature 2022-11-12 36.72 Mary Julissa Medleyyb old - :38:00 External Respiratory rate 2022-11-12 19 /min Julissa Medleyyb old - :38:00 External Body height 2022-11-12 172.7 cm Julissa Medleyybold - :38:00 External Body weight 2022-11-12 123.832 kg Julissa Medleyybold - 19:38:00 External BMI 2022-11-12 41.51 kg/m2 Julissa Medleyybold - 19:38:00 External Oxygen saturation 2022-11-12 100 /min Julissa Smith bold - in Arterial blood 19:38:00 External by Pulse oximetry Systolic blood 2022-10-24 110 mm[Hg] Julissa Seybol d - pressure 21:23:00 External Diastolic blood 2022-10-24 74 mm[Hg] Julissa Seybo ld - pressure 21:23:00 External Heart rate 2022-10-24 89 /min Julissa Medleyybold - :23:00 External Body temperature 2022-10-24 36.89 Mary Julissa Medleyyb old - :23:00 External Respiratory rate 2022-10-24 17 /min Julissa Medleyyb old - :23:00 External Body height 2022-10-24 172.7 cm Julissa Medleyybold - :23:00 External Body weight 2022-10-24 124.013 kg Julissa Medleyybold - :23:00 External BMI 2022-10-24 41.57 kg/m2 Julissa Medleyybold - :23:00 External Oxygen saturation 2022-10-24 100 /min Julissa y bold - in Arterial blood 21:23:00 External by Pulse oximetry Systolic blood 2022-10-18 107 mm[Hg] Julissa Seybol d - pressure 20:59:00 External Diastolic blood 2022-10-18 84 mm[Hg] Julissa Medleyybo ld - pressure 20:59:00 External Heart rate 2022-10-18 103 /min Julissa Medleyybold - 20:59:00 External Body temperature 2022-10-18 36.56 Mary Julissa Sullivan old - 20:59:00 External Respiratory rate 2022-10-18 14 /min Julissa Sullivan old - 20:59:00 External Body height 2022-10-18 172.7 cm Julissa Medleyybold - 20:59:00 External Body weight 2022-10-18 127.007 kg Julissa Medleyybold - 20:59:00 External BMI 2022-10-18 42.57 kg/m2 Julissa Medleyybold - 20:59:00 External Oxygen saturation 2022-10-18 99 /min Julissa y bold - in Arterial blood 20:59:00 External by Pulse oximetry Systolic blood 2022-10-15 110 mm[Hg] Julissa Seybol d - pressure 18:40:00 External Diastolic blood 2022-10-15 77 mm[Hg] Julissa Seybo ld - pressure 18:40:00 External Heart rate 2022-10-15 93 /min Julissa Medleyybold - 18:40:00 External Body temperature 2022-10-15 36.39 Mary Julissa Medleyyb old - 18:40:00 External Respiratory rate 2022-10-15 20 /min Julissa Medleyyb old - 18:40:00 External Body height 2022-10-15 172.7 cm Julissa Medleyybold - 18:40:00 External Body weight 2022-10-15 125.465 kg Julissa Medleyybold - 18:40:00 External BMI 2022-10-15 42.06 kg/m2 Julissa Medleyybold - 18:40:00 External Systolic blood 2022-10-08 90 mm[Hg] Julissa Seybol d - pressure 13:50:00 External Diastolic blood 2022-10-08 60 mm[Hg] Julissa Seybo ld - pressure 13:50:00 External Heart rate 2022-10-08 131 /min Julissa Medleyybold - 13:50:00 External Body temperature 2022-10-08 36.17 Mary Julissa Sullivan old - 13:50:00 External Respiratory rate 2022-10-08 16 /min Julissa Sullivan old - 13:50:00 External Body height 2022-10-08 172.7 cm Julissa Medleyybold - 13:50:00 External Body weight 2022-10-08 126.1 kg Julissa Medleyybold - 13:50:00 External BMI 2022-10-08 42.27 kg/m2 Julissa Medleyybold - 13:50:00 External Body weight 2022-10-07 123.832 kg Julissa Medleyybold - 14:54:00 External BMI 2022-10-07 41.51 kg/m2 Julissa Medleyybold - 14:54:00 External Systolic blood 2022-10-07 101 mm[Hg] Julissa Seybol d - pressure 14:54:00 External Diastolic blood 2022-10-07 67 mm[Hg] Julissa Seybo ld - pressure 14:54:00 External Heart rate 2022-10-07 75 /min Julissa Medleyybold - 14:54:00 External Body temperature 2022-10-07 37.11 Mary Julissa Medleyyb old - 14:54:00 External Respiratory rate 2022-10-07 18 /min Julissa Medleyyb old - 14:54:00 External Body height 2022-10-07 172.7 cm Julissa Shipman - 14:54:00 External Systolic blood 2022-10-04 120 mm[Hg] Julissa Sullivanol d - pressure 21:30:00 External Diastolic blood 2022-10-04 82 mm[Hg] Julissa Sullivano ld - pressure 21:30:00 External Heart rate 2022-10-04 90 /min Julissa Shipman - 21:30:00 External Body temperature 2022-10-04 36.61 Mary Julissa Sullivan old - 21:30:00 External Respiratory rate 2022-10-04 18 /min Julissa Sullivan old - 21:30:00 External Body height 2022-10-04 172.7 cm Julissa Shipman - 21:30:00 External Body weight 2022-10-04 125.283 kg Julissa Shipman - 21:30:00 External BMI 2022-10-04 42.00 kg/m2 Julissa Shipman - :30:00 External Oxygen saturation 2022-10-04 99 /min Julissa Ferdinand hayden - in Arterial blood 21:30:00 External by Pulse oximetry Heart rate 2022-08-13 97 /min [facility] 23:00:00 [facility] Respiratory rate 2022-08-13 16 /min [facility] 23:00:00 [facility] Oxygen saturation 2022-08-13 100 /min [facility] in Arterial blood 23:00:00 [facility] by Pulse oximetry Branch Systolic blood 2022-08-13 131 mm[Hg] [facility] pressure 22:00:00 [facility] Diastolic blood 2022-08-13 93 mm[Hg] [facility] f pressure 22:00:00 [facility] Body temperature 2022-08-13 37.5 Mary [facility] 22:00:00 [facility] Body weight 2022-08-10 141 kg [facility] 02:00:00 [facility] BMI 2022-08-10 47.26 kg/m2 [facility] 02:00:00 [facility] Body height 2022-08-09 172.7 cm [facility] 01:08:00 [facility] Systolic blood 2022-07-21 124 mm[Hg] [facility] pressure 00:53:00 [facility] Diastolic blood 2022-07-21 85 mm[Hg] [facility] f pressure 00:53:00 [facility] Heart rate 2022-07-21 73 /min [facility] 00:53:00 [facility] Body temperature 2022-07-21 36.89 Mary [facility] 00:53:00 [facility] Respiratory rate 2022-07-21 18 /min [facility] 00:53:00 [facility] Body height 2022-07-21 172.7 cm [facility] 00:53:00 [facility] Body weight 2022-07-21 127.007 kg [facility] 00:53:00 [facility] BMI 2022-07-21 42.57 kg/m2 [facility] 00:53:00 [facility] Oxygen saturation 2022-07-21 99 /min [facility] in Arterial blood 00:53:00 [facility] jeanette by Pulse oximetry Branch HEIGHT 2021-04-08 172.7 cm 15:00:00 WEIGHT 2021-04-08 124.467 kg 15:00:00 HEIGHT 2021-04-08 172.7 cm 15:00:00 WEIGHT 2021-04-08 124.467 kg 15:00:00 Systolic blood 2020-05-22 139 mm[Hg] [facility] pressure 20:10:00 [facility] Diastolic blood 2020-05-22 76 mm[Hg] [facility] f pressure 20:10:00 [facility] Heart rate 2020-05-22 64 /min [facility] 20:10:00 [facility] Body temperature 2020-05-22 36.89 Mary [facility] 20:10:00 [facility] Respiratory rate 2020-05-22 18 /min [facility] 20:10:00 [facility] Oxygen saturation 2020-05-22 100 /min [facility] in Arterial blood 20:10:00 [facility] jeanette by Pulse oximetry [place] Body height 2020-05-19 177.8 cm [facility] 07:13:00 [facility] Body weight 2020-05-19 102 kg [facility] 07:13:00 [facility] BMI 2020-05-19 32.27 kg/m2 [facility] 07:13:00 [facility] Systolic blood 2020-05-22 139 mm[Hg] [facility] pressure 20:10:00 [facility] Diastolic blood 2020-05-22 76 mm[Hg] [facility] f pressure 20:10:00 [facility] Heart rate 2020-05-22 64 /min [facility] 20:10:00 [facility] Body temperature 2020-05-22 36.89 Mary [facility] 20:10:00 [facility] Respiratory rate 2020-05-22 18 /min [facility] 20:10:00 [facility] Oxygen saturation 2020-05-22 100 /min [facility] in Arterial blood 20:10:00 [facility] by Pulse oximetry Branch Body height 2020-05-19 177.8 cm [facility] 07:13:00 [facility] Body weight 2020-05-19 102 kg [facility] 07:13:00 [facility] BMI 2020-05-19 32.27 kg/m2 [facility] 07:13:00 [facility] Systolic blood 2020-05-17 119 mm[Hg] [facility] pressure 05:00:00 [facility] Diastolic blood 2020-05-17 75 mm[Hg] [facility] f pressure 05:00:00 [facility] Heart rate 2020-05-17 62 /min [facility] 05:00:00 [facility] Respiratory rate 2020-05-17 19 /min [facility] 05:00:00 [facility] Oxygen saturation 2020-05-17 98 /min [facility] in Arterial blood 05:00:00 [facility] by Pulse oximetry [place] Body temperature 2020-05-17 36.83 Mary [facility] 00:57:00 [facility] Body weight 2020-05-17 102.059 kg [facility] 00:57:00 [facility] BMI 2020-05-17 34.21 kg/m2 [facility] 00:57:00 [facility] Systolic blood 2020-05-17 119 mm[Hg] [facility] pressure 05:00:00 [facility] Diastolic blood 2020-05-17 75 mm[Hg] [facility] f pressure 05:00:00 [facility] Heart rate 2020-05-17 62 /min [facility] 05:00:00 [facility] Respiratory rate 2020-05-17 19 /min [facility] 05:00:00 [facility] Oxygen saturation 2020-05-17 98 /min [facility] in Arterial blood 05:00:00 [facility] by Pulse oximetry Branch Body temperature 2020-05-17 36.83 Mary [facility] 00:57:00 [facility] Body weight 2020-05-17 102.059 kg [facility] 00:57:00 [facility] BMI 2020-05-17 34.21 kg/m2 [facility] 00:57:00 [facility] Systolic blood 2019-12-02 147 mm[Hg] [facility] pressure 20:41:00 [facility] Diastolic blood 2019-12-02 78 mm[Hg] [facility] pressure 20:41:00 [facility] Heart rate 2019-12-02 84 /min [facility] 20:41:00 [facility] Body temperature 2019-12-02 37 Mary [facility] 20:41:00 [facility] Respiratory rate 2019-12-02 18 /min [facility] 20:41:00 [facility] Body height 2019-12-02 172.7 cm [facility] 20:41:00 [facility] Body weight 2019-12-02 90.719 kg [facility] 20:41:00 [facility] BMI 2019-12-02 30.41 kg/m2 [facility] 20:41:00 [facility] Oxygen saturation 2019-12-02 98 /min [facility] of in Arterial blood 20:41:00 [facility] by Pulse oximetry Branch Systolic blood 2019-12-02 147 mm[Hg] [facility] pressure 20:41:00 [facility] Diastolic blood 2019-12-02 78 mm[Hg] [facility] o f pressure 20:41:00 [facility] Heart rate 2019-12-02 84 /min [facility] 20:41:00 [facility] Body temperature 2019-12-02 37 Mary [facility] 20:41:00 [facility] Respiratory rate 2019-12-02 18 /min [facility] 20:41:00 [facility] Body height 2019-12-02 172.7 cm [facility] 20:41:00 [facility] Body weight 2019-12-02 90.719 kg [facility] 20:41:00 [facility] BMI 2019-12-02 30.41 kg/m2 [facility] 20:41:00 [facility] Oxygen saturation 2019-12-02 98 /min [facility] in Arterial blood 20:41:00 [facility] jeanette by Pulse oximetry Branch Systolic blood 2023-05-12 92 mm[Hg] [facility] pressure 15:35:00 [facility] Center Diastolic blood 2023-05-12 53 mm[Hg] [facility] pressure 15:35:00 [facility] Heart rate 2023-05-12 85 /min [facility] 15:35:00 [facility] Body temperature 2023-05-[address] [facility] 15:35:00 [facility] Respiratory rate 2023-05-12 18 /min [facility] 15:35:00 [facility] Oxygen saturation 2023-05-12 98 /min [facility] in Arterial blood 15:35:00 Medical Ce nter by Pulse oximetry Body weight 2023-05-[address] [facility] 05:15:00 [facility] BMI 2023-05-12 41.05 kg/m2 [facility] 05:15:00 [facility] Body height 2023-05-[address] [facility] 01:04:00 [facility] Center Systolic blood 2023-05-06 112 mm[Hg] [facility] pressure 12:00:00 [facility] Center Diastolic blood 2023-05-06 57 mm[Hg] [facility] pressure 12:00:00 [facility] Heart rate 2023-05-06 61 /min [facility] 12:00:00 [facility] Body temperature 2023-05-[address] [facility] 12:00:00 [facility] Respiratory rate 2023-05-06 18 /min [facility] 12:00:00 [facility] Oxygen saturation 2023-05-06 99 /min [facility] in Arterial blood 12:00:00 Medical Ce [facility]ter by Pulse oximetry Body weight 2023-05-[address] [facility] 06:00:00 [facility] BMI 2023-05-03 42.34 kg/m2 [facility] 06:00:00 [facility] Body height 2023-02-[address] [facility] 09:31:00 [facility] Systolic blood 2023-01-27 113 mm[Hg] [facility] pressure 18:00:00 [facility] Center Diastolic blood 2023-01-27 69 mm[Hg] [facility] pressure 18:00:00 [facility] Center Heart rate 2023-01-27 76 /min [facility] 18:00:00 [facility] Body temperature 2023-01-[address] [facility] 18:00:00 [facility] Respiratory rate 2023-01-27 22 /min [facility] 18:00:00 [facility] Oxygen saturation 2023-01-27 98 /min [facility] in Arterial blood 18:00:00 Medical Ce [facility]ter by Pulse oximetry Body height 2023-01-[address] [facility] 14:06:00 [facility] Center Body weight 2023-01-[address] [facility] 14:06:00 [facility] BMI 2023-01-27 42.42 kg/m2 [facility] 14:06:00 [facility] Systolic blood 2023-01-23 105 mm[Hg] [facility] pressure 20:00:00 [facility] Diastolic blood 2023-01-23 65 mm[Hg] [facility] pressure 20:00:00 [facility] Heart rate 2023-01-23 55 /min [facility] 20:00:00 [facility] Respiratory rate 2023-01-23 13 /min [facility]00 [facility] Oxygen saturation 2023-01-23 98 /min [facility] in Arterial blood 20:00:00 [facility] nter by Pulse oximetry Body temperature 2023-01-[address] [facility] 14:58:00 [facility] Body height 2023-01-[address] [facility] 14:58:00 [facility] Body weight 2023-01-[address] [facility] 14:58:00 [facility] BMI 2023-01-23 43.33 kg/m2 [facility] 14:58:00 [facility] Systolic blood 2022-08-27 133 mm[Hg] [facility] pressure 18:09:00 [facility] Diastolic blood 2022-08-27 67 mm[Hg] [facility] pressure 18:09:00 [facility] Heart rate 2022-08-27 61 /min [facility] 18:09:00 [facility] Body temperature 2022-08-27 36.5 Mary [facility] 18:09:00 Hospital Respiratory rate 2022-08-27 20 /min [facility] 18:09:00 [facility] Oxygen saturation 2022-08-27 98 /min [facility] in Arterial blood 18:09:00 [facility] by Pulse oximetry Body weight 2022-08-26 134.2 kg [facility] 07:07:00 [facility] BMI 2022-08-26 44.98 kg/m2 [facility] 07:07:00 [facility] Oxygen saturation 2022-08-20 100 /min AFTER 6 MINUTE [facility] t in Arterial blood 19:38:00 [facility] by Pulse oximetry Systolic blood 2022-08-20 114 mm[Hg] [facility] 17:35:00 Hospital Diastolic blood 2022-08-20 69 mm[Hg] [facility] 17:35:00 Hospital Heart rate 2022-08-20 82 /min [facility] 17:35:00 [facility] Body temperature 2022-08-20 36.5 Mary [facility] 17:35:00 Hospital Respiratory rate 2022-08-20 18 /min [facility] 17:35:00 [facility] Body weight 2022-08-20 135.308 kg [facility] 02:25:18 Hospital BMI 2022-08-20 45.36 kg/m2 [facility] 02:25:18 Hospital Body height 2022-08-16 172.7 cm [facility] 01:09:00 [facility] Systolic blood 2021-04-08 115 mm[Hg] [facility] pressure 16:36:00 [facility] Diastolic blood 2021-04-08 69 mm[Hg] [facility] pressure 16:36:00 [facility] Heart rate 2021-04-08 70 /min [facility] 16:36:00 [facility] Body temperature 2021-04-[address] [facility] 16:36:00 [facility] Respiratory rate 2021-04-08 18 /min [facility] 16:36:00 [facility] Oxygen saturation 2021-04-08 99 /min [facility] in Arterial blood 16:36:00 [facility] nter by Pulse oximetry Body height 2021-04-[address] [facility] 15:00:00 [facility] Body weight 2021-04-[address] [facility] 15:00:00 [facility] BMI 2021-04-08 41.72 kg/m2 [facility] 15:00:00 [facility] Heart rate 2021-04-06 70 /min [facility] 17:00:00 [facility] Respiratory rate 2021-04-06 20 /min [facility] 16:43:00 [facility] Oxygen saturation 2021-04-06 100 /min [facility] in Arterial blood 16:43:00 Hospital by Pulse oximetry Systolic blood 2021-04-06 109 mm[Hg] [facility] 16:43:00 Hospital Diastolic blood 2021-04-06 66 mm[Hg] [facility] 16:43:00 Hospital Body temperature 2021-04-06 36.39 Mary [facility] 16[facility]43:00 [facility] Body height 2021-04-05 172.7 cm [facility] 19:55:00 [facility] Body weight 2021-04-05 117.935 kg [facility] 19:55:00 [facility] BMI 2021-04-05 39.53 kg/m2 [facility] 19:55:00 [facility] Systolic (mm Hg) 2019-12-11 [facility] 23[facility]58[facility]00 Diastolic (mm Hg) 2019-12-11 [facility] 23:58:00 Heart Rate 2019-12-11 [facility] 23:[facility]:00 Respitory Rate 2019-12-11 [facility] 23:58:00 Temperature Oral 2019-12-11 98.4 F [facility] He [facility]mann (F) 23:58:00 Height 2019-12-11 172.72 cm [facility] 23:58:00 BMI Calculated 2019-12-11 [facility] 23:58:00 Weight 2019-12-11 [facility] 23:58:00 Respitory Rate 2019-12-03 [facility] 02:40:00 Systolic (mm Hg) 2019-12-03 [facility] 02:40:00 Diastolic (mm Hg) 2019-12-03 [facility] 02:40:00 Temperature Oral 2019-12-03 98.4 F [facility] (F) 02:40:00 BMI Calculated 2019-12-02 [facility] 23:51:00 Systolic (mm Hg) 2019-12-02 [facility] 23:07:00 Diastolic (mm Hg) 2019-12-02 [facility] 23:07:00 Heart Rate 2019-12-02 [facility] 23:07:00 Respitory Rate 2019-12-02 [facility] 23:07:00 Temperature Oral 2019-12-02 98.7 F [facility] He rmann (F) 23:07:00 Height 2019-12-02 [...] [facility] 19:39:00 Diastolic (mm Hg) 2016-09-19 [facility] 19:39:00 Temperature Oral 2013-08-18 98.2 F Letha Davis rmann (F) 06:31:00 Respitory Rate 2013-08-18 [facility] 06:31:00 Heart Rate 2013-08-18 [facility] 06:31:00 Diastolic (mm Hg) 2013-08-18 [facility] 06:31:00 Systolic (mm Hg) 2013-08-18 [facility] 06:31:00 Systolic (mm Hg) 2013-08-18 [facility] 03:44:00 Heart Rate 2013-08-18 [facility] 03:44:00 Diastolic (mm Hg) 2013-08-18 [facility] 03:44:00 Systolic (mm Hg) 2013-08-18 [facility] 03:10:00 Diastolic (mm Hg) 2013-08-18 [facility] Jalen ermann 03:10:00 Respitory Rate 2013-08-18 [facility] 03:10:00 Heart Rate 2013-08-18 [facility] 03:10:00 Temperature Oral 2013-08-18 96.5 F Letha Davis rmann (F) 03:10:00 Weight 2013-08-18 [facility] 01:58:00 Height 2013-08-18 170.18 cm [facility] 01:58:00 Respitory Rate 2013-08-18 [facility] 01:58:00 Height 2011-10-11 162.56 cm Letha Tripathian n 15:17:00 Weight 2011-10-11 [facility] 15:17:00 Procedures Procedure Date / Time Performing Source Performed Clinician TSH/FREE T4 IF INDICATED 2023-05-11 [facility]as [facility] 11:17:00 [facility] T4, FREE 2023-05-[address] [facility] 11:17:00 [facility] CBC W/PLT COUNT & AUTO 2023-05-10 [facility]av Farrell [facility] 06:27:00 [facility] BASIC METABOLIC PANEL 2023-05-[address] [facility] 06:27:00 [facility] MAGNESIUM 2023-05-[address] [facility] 06:27:00 [facility] CBC W/PLT COUNT & AUTO 2023-05-10 Analy, [facility]av [facility] 06:27:00 [facility] ECG 12-LEAD 2023-05-[address] [facility] 16:34:57 [facility] ECG 12-LEAD 2023-05-09 Unknown, Hl7 [facility] 16:34:57 [facility] POCT-GLUCOSE METER 2023-05-09 Alicia, Clark Mathias [facility] 16:33:00 [facility] POCT-ACT 2023-05-09 Alicia, Clark Mathias [facility] 15:02:00 [facility] POCT-ACT 2023-05-09 Alicia, Clark Mathias [facility] 14:29:00 [facility] POCT-ACT 2023-05-09 Alicia, Clark Mathias [facility] 13:51:00 [facility] CARDIAC ELECTROPHYSIOLOGY 2023-05-[address] [facility] STUDY, WITH ABLATION 12:27:[address] CBC W/PLT COUNT & AUTO 2023-05-09 Analy, Abhinav [facility] 05:10:00 [facility] BASIC METABOLIC PANEL 2023-05-09 Analy, Abhinav [facility] 05:10:00 [facility] MAGNESIUM 2023-05-09 Analy, Abhinav [facility] 05:10:00 [facility] CBC W/PLT COUNT & AUTO 2023-05-09 Analy, [facility]hinav [facility] 05:10:00 [facility] CBC W/PLT COUNT & AUTO 2023-05-08 Analy, [facility]hinav [facility] 04:08:00 [facility] BASIC METABOLIC PANEL 2023-05-08 Analy, [facility]hinav [facility] 04:08:00 [facility] MAGNESIUM 2023-05-08 Analy, Abhinav [facility] 04:08:00 [facility] CBC W/PLT COUNT & AUTO 2023-05-08 Analy, Abhinav [facility] 04:08:00 [facility] CARDIAC CATH REPORT - SCAN 2023-05-08 Provider, Default [facility] 00:00:00 [facility] EKG-SCANNED 2023-05-08 Provider, Default [facility] 00:00:00 [facility] POCT-GLUCOSE METER 2023-05-06 Alicia, Clark Mathias [facility] 11:48:00 [facility] POCT-GLUCOSE METER 2023-05-06 Alicia, Clark Mathias [facility] 07:46:00 [facility] CBC (HEMOGRAM ONLY) 2023-05-[address] [facility] 06:45:00 [facility] BASIC METABOLIC PANEL 2023-05-06 [facility] Band[facility] 06:45:00 [facility] POCT-GLUCOSE METER 2023-05-05 Alicia, Clark Mathias [facility] 21:18:00 [facility] POCT-GLUCOSE METER 2023-05-05 Alicia, Clark Mathias [facility] 17:03:00 [facility] POCT-GLUCOSE METER 2023-05-05 Alicia, Clark Mathias [facility] 11:38:00 [facility] POCT-GLUCOSE METER 2023-05-05 Alicia, Clark Mathias [facility] 07:52:00 [facility] CBC (HEMOGRAM ONLY) 2023-05-05 [facility] Band[facility] 04:39:00 [facility] BASIC METABOLIC PANEL 2023-05-05 [facility], [facility] 04:39:00 [facility] POCT-GLUCOSE METER 2023-05-04 Alicia, Clark Mathias [facility] 23:57:00 [facility] POCT-GLUCOSE METER 2023-05-[address] [facility] 17:18:00 [facility] POCT-GLUCOSE METER 2023-05-[address] [facility] 12:26:00 [facility] APTT 2023-05-[address] [facility] 12:20:00 [facility] APTT 2023-05-[address] [facility] 03:27:00 [facility] POCT-GLUCOSE METER 2023-05-[address] [facility] 20:27:00 Medical Center APTT 2023-05-[address] [facility] 20:13:00 Medical Center APTT 2023-05-03 Emily, Mary [facility] 14:05:00 [facility] Center APTT 2023-05-03 Emily, Mary [facility] 06:30:00 [facility] Center CBC W/PLT COUNT & AUTO 2023-05-03 Emily, Mary [facility] 06:27:00 [facility] BASIC METABOLIC PANEL 2023-05-03 Emily, Mary [facility] 06:27:00 [facility] CBC W/PLT COUNT & AUTO 2023-05-03 Emily, Mary [facility] 06:27:00 [facility] Center ECG 12-LEAD 2023-05-03 Juan Carlos, Laron M [facility] 05:34:05 [facility] Center ECG 12-LEAD 2023-05-03 Unknown, Hl7 Doctor [facility] 05:34:05 [facility] POCT-GLUCOSE METER 2023-05-[address] [facility] 22:55:00 Medical Center APTT 2023-05-02 Emily, Mary [facility] 22:53:00 Medical Center APTT 2023-05-02 Emily, Mary [facility] 17:03:00 [facility] Center POCT-GLUCOSE METER 2023-05-[address] [facility] 12:55:00 [facility] Center POCT-GLUCOSE METER 2023-05-[address] [facility] 11:29:00 Medical Center ECG 12-LEAD 2023-05-02 Juan Carlos, Laron M [facility] 11:21:40 Medical Center ECG 12-LEAD 2023-05-02 Unknown, Hl7 Doctor [facility] 11:21:[address] BRAIN WITHOUT IV CONTRAST 2023-05-02 Emily, Mary [facility] 09:09:32 Medical Center POCT-GLUCOSE METER 2023-05-[address] [facility] 07:01:00 Medical Center CBC W/PLT COUNT & AUTO 2023-05-02 Emily, Mary [facility] 04:39:00 [facility] BASIC METABOLIC PANEL 2023-05-02 Emily, Mary [facility] 04:39:00 [facility] CBC W/PLT COUNT & AUTO 2023-05-[address] [facility] 04:39:00 [facility] POCT-GLUCOSE METER 2023-05-01 Ajay, Roberta [facility] 21:35:00 [facility] POCT-GLUCOSE METER 2023-05-01 Ajay, Roberta [facility] 17:43:00 [facility] ECG 12-LEAD 2023-05-01 Unknown, Hl7 Doctor [facility] 10:49:16 [facility] ECHO W CONTRAST & DOPPLER 2023-05-[address] [facility] 10:01:00 [facility] POCT-GLUCOSE METER 2023-05-01 Ajay, Roberta [facility] 07:03:00 [facility] CBC W/PLT COUNT & AUTO 2023-05-[address] [facility] 04:48:00 [facility] BASIC METABOLIC PANEL 2023-05-[address] [facility] 04:48:00 [facility] CBC W/PLT COUNT & AUTO 2023-05-[address] [facility] 04:48:00 [facility] POCT-GLUCOSE METER 2023-04-30 Ajay, Roberta [facility] 21:06:00 [facility] HEPATIC FUNCTION PANEL 2023-04-[address] [facility] 18:40:00 [facility] POCT-GLUCOSE METER 2023-04-30 Ajay, Roberta [facility] 16:34:00 [facility] URINALYSIS W/ REFLEX URINE 2023-04-30 Radha Diazjorge alberto [facility] C[facility] 14:11:00 [facility] BLOOD CULTURE 2023-04-[address] [facility] 14:07:00 [facility] TSH/FREE T4 IF INDICATED 2023-04-[address] [facility] 13:15:00 [facility] PT/APTT 2023-04-[address] [facility] 13:15:00 [facility] CORTISOL 2023-04-[address] [facility] 13:15:00 [facility] PROCALCITONIN 2023-04-[address] [facility] 13:15:00 [facility] LACTIC ACID, VENOUS 2023-04-[address] [facility] 13:15:00 [facility] XR CHEST 1 VIEW PORTABLE / 2023-04-30 Mary Diaz [facility] BED[facility] 11:27:00 [facility] Center CBC W/PLT COUNT & AUTO 2023-04-[address] [facility] 10:41:00 [facility] Center BASIC METABOLIC PANEL 2023-04-[address] [facility] 10:41:00 [facility] Center MAGNESIUM 2023-04-[address] [facility] 10:41:00 [facility] Center PHOSPHORUS 2023-04-[address] [facility] 10:41:00 [facility] B-TYPE NATRIURETIC FACTOR 2023-04-[address] [facility] (BNP) 10:41:00 [facility] HIGH SENSITIVITY TROPONIN I 2023-04-[address] [facility] 10:41:00 [facility] HEPATIC FUNCTION PANEL 2023-04-[address] [facility] 10:41:00 [facility] CBC W/PLT COUNT & AUTO 2023-04-[address] [facility] DIFFER[facility] 10:41:00 [facility] ECG 12-LEAD 2023-04-[address] [facility] 10:26:06 [facility] POCT-GLUCOSE METER 2023-02-28 Alicia, Clark Mathias [facility] 11:24:00 [facility] BASIC METABOLIC PANEL 2023-02-28 Alicia, Clark Mathias [facility] 09:44:00 [facility] MAGNESIUM 2023-02-28 Alicia, Clark Mathias [facility] 09:44:00 [facility] PHOSPHORUS 2023-02-28 Alicia, Clark Mathias [facility] 09:44:00 [facility] POCT-GLUCOSE METER 2023-02-28 Alicia, Clark Mathias [facility] 06:57:00 [facility] POCT-GLUCOSE METER 2023-02-27 Alicia, Clark Mathias [facility] 21:21:00 [facility] POCT-GLUCOSE METER 2023-02-27 Alicia, Clark Mathias [facility] 16:48:00 [facility] ECG 12-LEAD 2023-02-[address] [facility] 15:51:30 [facility] ECG 12-LEAD 2023-02-27 Unknown, Hl7 Doctor [facility] 15:51:30 [facility] POCT-GLUCOSE METER 2023-02-[address] [facility] 11:41:00 [facility] POCT-GLUCOSE METER 2023-02-[address] [facility] 06:24:00 [facility] BASIC METABOLIC PANEL 2023-02-27 [facility] 04:40:00 [facility] CBC W/PLT COUNT & AUTO 2023-02-27 [facility], [place] [facility] DIFFERENTIAL 04:40:00 [facility] CBC W/PLT COUNT & AUTO 2023-02-27 [facility], [place] [facility] DIFFERENTIAL 04:40:00 [facility] POCT-GLUCOSE METER 2023-02-[address] [facility] 21:38:00 [facility] ARRYTHMIA IMPLANT REPORT - 2023-02-26 Provider, Default [facility] SCAN 00:00:00 [facility] EKG-SCANNED 2023-02-26 Provider, Default [facility] 00:00:00 [facility] CATHETERIZATION, HEART, 2023-02-[address] [facility] RIGHT, WITH BIOPSY 12:57:00 [facility] COMPREHENSIVE METABOLIC PANEL 2023-02-07 Brennen Martini [facility] 12[facility]27:00 [facility] MAGNESIUM 2023-02-[address] [facility] 12:27:00 [facility] 2D ECHO W/ DOPPLER 2023-02-[address] [facility] (CW/PW/COLOR) 10:00:00 [facility] POCT-GLUCOSE METER 2023-02-[address] [facility] 07:33:00 [facility] LIPID PANEL 2023-02-[address] [facility] 05:18:00 [facility] POCT-GLUCOSE METER 2023-02-[address] [facility] 20:39:00 [facility] POCT-GLUCOSE METER 2023-02-[address] [facility] 07:17:00 [facility] POCT-GLUCOSE METER 2023-02-05 Yancy, Noe [facility] 21:36:00 [facility] POCT-GLUCOSE METER 2023-02-05 Yancy, Noe [facility] 07:22:00 [facility] Center CBC W/PLT COUNT & AUTO 2023-02-05 Yancy, Noe [facility] 05:19:00 [facility] BASIC METABOLIC PANEL 2023-02-05 Yancy, Noe [facility] 05:19:00 [facility] CBC W/PLT COUNT & AUTO 2023-02-05 Yancy, Noe [facility] DIFFERENTIAL 05:19:00 [facility] POCT-GLUCOSE METER 2023-02-04 Yancy, Noe [facility] 21:08:00 [facility] MR CARDIAC WITHOUT & WITH IV 2023-02-[address] [facility] CONTRAST 17:21:00 [facility] POCT-GLUCOSE METER 2023-02-04 Yancy, Noe [facility] 07:14:00 [facility] POCT-GLUCOSE METER 2023-02-03 Yancy, Noe [facility] 20:56:00 [facility] POCT-GLUCOSE METER 2023-02-03 Yancy, Noe [facility] 17:02:00 [facility] POCT-GLUCOSE METER 2023-02-03 Yancy, Noe [facility] 12:29:00 [facility] POCT-GLUCOSE METER 2023-02-03 Burton, Olethia E [facility] 07:18:00 [facility] POCT-GLUCOSE METER 2023-02-02 Burton Olethia E [facility] 21:11:00 [facility] POCT-GLUCOSE METER 2023-02-02 Burton, Olethia E [facility] 17:39:00 [facility] POCT-GLUCOSE METER 2023-02-02 Burton, Olethia E [facility] 12:25:00 [facility] POCT-GLUCOSE METER 2023-02-02 Burton Olethia E [facility] 07:18:00 [facility] POCT-GLUCOSE METER 2023-02-01 Burton, Olethia E [facility] 21:05:00 [facility] HIGH SENSITIVITY TROPONIN I 2023-02-[address] [facility] 18:55:00 [facility] POCT-GLUCOSE METER 2023-02-[address] [facility] 17:03:00 [facility] XR CHEST 2 VIEWS 2023-02-[address] [facility] 16:05:00 [facility] SARS-COV2/RT-PCR ([facility] & REF 2023-02-01 Augustine Manriquea Kindra [facility]) 14:57:00 [facility] HIGH SENSITIVITY TROPONIN I 2023-02-[address] [facility] 14:57:00 [facility] B-TYPE NATRIURETIC FACTOR 2023-02-[address] [facility] (BNP) 14:57:00 [facility] HEMOGLOBIN A1C 2023-02-[address] [facility] 14:57:00 [facility] POCT-GLUCOSE METER 2023-02-[address] [facility] 14:20:00 [facility] VASCULAR DIAGRAM -SCAN 2023-02-01 Provider, Default [facility] 00:00:00 [facility] CARDIAC CATH REPORT - SCAN 2023-02-01 Provider, Default [facility] 00:00:00 [facility] EKG-SCANNED 2023-02-01 Provider, Default [facility] 00:00:00 [facility] AUTHORIZATION FOR RELEASE OF 2023-01-28 Doctor Unassigned, [facility] PHI 05:01:00 [facility] ECG 12-LEAD 2023-01-27 Unknown, Hl7 Doctor [facility] 15:16:30 [facility] ECG 12-LEAD 2023-01-27 Unknown, Hl7 Doctor [facility] 15:16:30 [facility] ED ECG INTERPRETATION 2023-01-[address] [facility] [facility] 15:04:25 [facility] COMPREHENSIVE METABOLIC PANEL 2023-01-27 Mitch Palmer [facility] 15:01:00 [facility] XR CHEST 2 VIEWS 2023-01-27 Mitch Palmer, [facility] 14:53:00 [facility] HIGH SENSITIVITY TROPONIN I 2023-01-27 Khozein Palmer, [facility] 14:46:00 [facility] B-TYPE NATRIURETIC FACTOR 2023-01-27 [facility] 14:46:00 [facility] CBC W/PLT COUNT & AUTO 2023-01-27 Mitch Palmer, [facility] DIFFERENTIAL 14:46:00 [facility] CBC W/PLT COUNT & AUTO 2023-01-27 Mitch Palmer, [facility] DIFFERENTIAL 14:46:00 [facility] PT/APTT 2023-01-27 Mitch Avelarera, [facility] 14:28:00 [facility] D-DIMER 2023-01-27 Apfel, Rubin [facility] 14:28:00 [facility] ECG 12-LEAD 2023-01-27 Unknown, Hl7 Doctor [facility] 14:02:34 [facility] ECG 12-LEAD 2023-01-27 Apfel, Rubin [facility] 14:02:34 [facility] EKG-SCANNED 2023-01-27 Provider, Uzma [facility] 00:00:00 [facility] ED ECG INTERPRETATION 2023-01-[address] [facility] 19:03:15 [facility] D-DIMER 2023-01-[address] [facility] 18:19:00 [facility] B-TYPE NATRIURETIC FACTOR 2023-01-[address] [facility] (BNP) 17:00:00 [facility] CBC W/PLT COUNT & AUTO 2023-01-[address] [facility] DIFFERENTIAL 16:53:00 [facility] COMPREHENSIVE METABOLIC PANEL 2023-01-[address] [facility] 16:53:00 [facility] HIGH SENSITIVITY TROPONIN I 2023-01-[address] [facility] 16:53:00 [facility] CBC W/PLT COUNT & AUTO 2023-01-[address] [facility] DIFFERENTIAL 16:53:00 [facility] XR CHEST 2 VIEWS 2023-01-[address] [facility] 15:30:00 [facility] ECG 12-LEAD 2023-01-23 Unknown, Hl7 Doctor [facility] 14:58:49 [facility] ECG 12-LEAD 2023-01-23 Unknown, Hl7 Doctor [facility] 14:58:49 [facility] EKG-SCANNED 2023-01-23 Provider, Uzma [facility] 00:00:[address] [facility] BLOOD CULTURE, AEROBIC & 2022-08-27 MancusoDariel Ramiro [facility] ANAEROBIC 12:43:00 CBC WITH PLATELET AND 2022-08-27 [facility] DIFFERENTIAL 12:43:00 BASIC METABOLIC PANEL 2022-08-27 [facility] 12:43:00 ESTIMATED GFR 2022-08-27 [facility] Hospit al 12:43:00 POC GLUCOSE 2022-08-26 [facility] 19:06:00 POC GLUCOSE 2022-08-26 [facility] 14:11:00 COMPREHENSIVE METABOLIC PANEL 2022-08-26 Butch Iniguez [facility] 08:15:00 CBC WITH PLATELET AND 2022-08-26 Butch Iniguez [facility] DIFFERENTIAL 08:15:00 MAGNESIUM LEVEL 2022-08-26 [facility] 08:15:00 PHOSPHORUS LEVEL 2022-08-26 Iniguez, Butch [facility]ang [facility] 08:15:00 IONIZED CALCIUM 2022-08-26 Geetha Butchlittle Angelaang [facility] 08:15:00 HEMOGLOBIN A1C 2022-08-26 Margie Selby [facility] 08:15:00 ESTIMATED GFR 2022-08-26 Butch Iniguezist Ho spital 08:15:00 POC GLUCOSE 2022-08-26 [facility] 06:20:00 POC GLUCOSE 2022-08-26 [facility] 02:39:00 POC GLUCOSE 2022-08-26 [facility] 01:29:00 POC GLUCOSE 2022-08-25 [facility] 22:16:00 POC GLUCOSE 2022-08-25 [facility] 21:10:00 POC GLUCOSE 2022-08-25 [facility] 20:17:00 POC GLUCOSE 2022-08-25 Jeremi Mata [facility] 19:13:00 Ahmad HEMOGLOBIN & HEMATOCRIT 2022-08-25 Margie Selby Stephanie [facility] 18:54:00 PROCALCITONIN 2022-08-25 Jeremi Mata [facility] 18:54:00 Ahmad POC GLUCOSE 2022-08-25 Jeremi Mata [facility] 18:49:00 Ahmad POC GLUCOSE 2022-08-25 Jeremi Mata [facility] 18:17:00 Ahmad BASIC METABOLIC PANEL 2022-08-25 [facility] 17:47:00 MAGNESIUM LEVEL 2022-08-25 [facility] Hospit al 17:47:00 PHOSPHORUS LEVEL 2022-08-25 [facility] 17:47:00 ESTIMATED GFR 2022-08-25 Margie Selby Stephanie [facility] 17:47:00 POC GLUCOSE 2022-08-25 Jeremi Mata [facility] 17:46:00 Ahmad POC GLUCOSE 2022-08-25 Jeremi Mata [facility] 17:45:00 Ahmad POC GLUCOSE 2022-08-25 Jeremi Mata [facility] 17:44:00 Ahmad TRANSFUSE RED BLOOD CELLS 2022-08-25 [facility] 16:45:00 POC GLUCOSE 2022-08-25 Jeremi Mata [facility] 16:33:00 Ahmad TYPE AND SCREEN 2022-08-25 Cristina Yanez [facility] 14:00:00 ESTIMATED GFR 2022-08-25 Margie Selby Stephanie [facility] 14:00:00 PREPARE RBC 2022-08-25 Cristina Yanez [facility] 14:00:00 POC GLUCOSE 2022-08-25 Jeremi Mata [facility] 13:59:00 Ahmad POC GLUCOSE 2022-08-25 Jeremi Mata [facility] 12:14:00 Ahmad CBC WITH PLATELET AND 2022-08-25 Aranza, [facility] DIFFERENTIAL 11:32:00 BASIC METABOLIC PANEL 2022-08-25 Aranza, [facility] 11:32:00 LACTIC ACID LEVEL 2022-08-25 Aranza, [facility] Hosp ital 11:32:00 ESTIMATED GFR 2022-08-25 Aranza, [facility] Hospit al 11:32:00 MAGNESIUM LEVEL 2022-08-25 Aranza, [facility] Hospit al 11:32:00 PHOSPHORUS LEVEL 2022-08-25 Aranza, [facility] Hospi bhargav 11:32:00 IONIZED CALCIUM 2022-08-25 Aranza, [facility] Hospit al 11:32:00 IONIZED CALCIUM 2022-08-25 Butch Iniguez [facility] Ho spital 10:59:00 POC GLUCOSE 2022-08-25 Emile Lizama [facility] 10:58:00 ESTIMATED GFR 2022-08-25 Butch Iniguze [facility] 10:54:00 POC GLUCOSE 2022-08-25 Emile Lizama [facility] 10:03:00 POC GLUCOSE 2022-08-25 Emile Lizama [facility] 09:08:00 BASIC METABOLIC PANEL 2022-08-25 [facility] 07:27:00 MAGNESIUM LEVEL 2022-08-25 [facility] Hospit al 07:27:00 PHOSPHORUS LEVEL 2022-08-25 [facility] Hospi bhargav 07:27:00 IONIZED CALCIUM 2022-08-25 Jeremi Mata [facility] 07:27:00 Ahmad ESTIMATED GFR 2022-08-25 Margie Selby [facility] 07:27:00 POC GLUCOSE 2022-08-25 Emile Lizama [facility] 07:26:00 ESTIMATED GFR 2022-08-25 Margie Selby [facility] 07:15:00 POC GLUCOSE 2022-08-25 Emile Lizama [facility] 04:12:00 POC GLUCOSE 2022-08-25 Emile Lizama [facility] 02:47:00 POC GLUCOSE 2022-08-25 Emile Lizama Hospit al 02:14:00 POC GLUCOSE 2022-08-25 Emile Lizama Hospit al 01:00:00 POC GLUCOSE 2022-08-24 Emile Lizama [facility] 23:51:00 MAGNESIUM LEVEL 2022-08-24 Dariel Mancuso [facility] 23:08:00 PHOSPHORUS LEVEL 2022-08-24 Dariel Mancuso [facility] b[facility]av 23:08:00 IONIZED CALCIUM 2022-08-24 [facility] 23:08:00 Ahmad POC GLUCOSE 2022-08-24 Emile Lizama Hospit al 22:58:00 POC GLUCOSE 2022-08-24 Emile Lizama Hospit al 22:25:00 DIGOXIN LEVEL 2022-08-24 [facility] 21:57:00 Ahmad BASIC METABOLIC PANEL 2022-08-24 [facility] lobo [facility] 21:20:00 Ahmad ESTIMATED GFR 2022-08-24 [facility] Hosp ital 21:20:00 Ahmad POC GLUCOSE 2022-08-24 Emile Lizama [facility] 21:10:00 ECG 12-LEAD 2022-08-24 Margie Selby [facility] 20:49:18 POC GLUCOSE 2022-08-24 Emile Lizama Hospit al 20:46:00 POC GLUCOSE 2022-08-24 Emile Lizama Hospit al 20:21:00 POC GLUCOSE 2022-08-24 Emile Lizama Hospit al 20:17:00 POC GLUCOSE 2022-08-24 Emile Lizama Hospit al 19:45:00 POC GLUCOSE 2022-08-24 Emile Lizama Hospit al 19:08:00 POC GLUCOSE 2022-08-24 Emile Lizama Hospit al 18:43:00 MO CRITICAL CARE ILL/INJURED 2022-08-[facility] PAT[facility] ADDL 30 MIN 18:30:07 Ahmad POTASSIUM LEVEL 2022-08-24 Jeremi Mata [facility] 18:10:00 Ahmad POC GLUCOSE 2022-08-24 Emile Lizama Hospit al 18:10:00 POC GLUCOSE 2022-08-24 Emile Lizama Hospit al 17:42:00 POC GLUCOSE 2022-08-24 Emile Lizama Hospit al 17:10:00 POC GLUCOSE 2022-08-24 Emile Lizama Hospit al 14:19:00 LACTIC ACID LEVEL, SEPSIS - 2022-08-24 [facility] NOW AND REPEAT 2X EVERY 3 11:40:00 HOURS CBC WITH PLATELET AND 2022-08-24 Butch Inigeuz [facility] DIFFERENTIAL 11:40:00 XR CHEST 1 VW PORTABLE 2022-08-24 IniguezButch rojas [facility] 10:08:05 HC CVL NON-TUNNELED INSERT 2022-08-24 IniguezButch [facility] 5YRS OR > 10:06:06 TROPONIN T 2022-08-24 [facility]osp ital 09:40:00 LACTIC ACID LEVEL, SEPSIS - 2022-08-24 [facility] NOW AND REPEAT 2X EVERY 3 09:40:00 HOURS COMPREHENSIVE METABOLIC PANEL 2022-08-24 Butch Iniguez [facility] 09:40:00 MAGNESIUM LEVEL 2022-08-24 Butch Iniguez Ho spital 09:40:00 PHOSPHORUS LEVEL 2022-08-24 Butch Iniguez ospital 09:40:00 IONIZED CALCIUM 2022-08-24 Butch Iniguez Ho spital 09:40:00 ESTIMATED GFR 2022-08-24 Butch Iniguez Ho spital 09:40:00 CORTISOL LEVEL, RANDOM 2022-08-24 [facility] 09:40:00 PROCALCITONIN 2022-08-24 [facility] ital 09:40:00 POC GLUCOSE 2022-08-24 Emile Lizama [facility] 09:09:00 COVID-19 QUALITATIVE RT-PCR 2022-08-24 [facility] 07:51:00 XR ABDOMEN 1 VW 2022-08-24 Aranza Denaemela Solorzano [facility] 06:47:17 XR CHEST 1 VW PORTABLE 2022-08-24 Denae Yanez [facility] 06:46:58 BLOOD CULTURE, AEROBIC & 2022-08-24 [facility] ANAEROBIC 06:46:00 ECG 12-LEAD 2022-08-24 [facility] ital 06:17:29 POC GLUCOSE 2022-08-24 Yon Garcia [facility] 05:48:00 ECG 12-LEAD 2022-08-24 [facility] ital 05:47:49 LACTIC ACID LEVEL, SEPSIS - 2022-08-24 [facility] NOW AND REPEAT 2X EVERY 3 05:26:00 HOURS MAGNESIUM LEVEL 2022-08-24 Denae Yanez [facility] Hospit al 05:26:00 TROPONIN T 2022-08-24 [facility]osp ital 05:05:00 CT ANGIOGRAM PE CHEST 2022-08-24 [facility] 03:26:27 XR CHEST 1 VW PORTABLE 2022-08-24 [facility] 03:16:23 CBC WITH PLATELET AND 2022-08-24 [facility] DIFFERENTIAL 02:17:00 PROTHROMBIN TIME WITH INR 2022-08-24 [facility] 02:17:00 PARTIAL THROMBOPLASTIN TIME 2022-08-24 [facility] (PTT) 02:17:00 CREATINE KINASE, TOTAL (CPK) 2022-08-24 [facility] 02:17:00 TROPONIN T 2022-08-24 [facility] 02:17:00 LIPASE LEVEL 2022-08-24 [facility] ital 02:17:00 B NATRIURETIC PEPTIDE 2022-08-24 [facility] 02:17:00 D-DIMER 2022-08-24 [facility] 02:17:00 POC GLUCOSE 2022-08-24 [facility] 02:08:00 ECG 12-LEAD 2022-08-24 [facility] 02:07:36 COMPREHENSIVE METABOLIC PANEL 2022-08-24 [facility] 02:05:00 ESTIMATED GFR 2022-08-24 [facility] 02:05:00 INTUBATION 2022-08-24 Ty [facility] 01:59:37 GENERAL 2022-08-24 Ty, Servando [facility] 01:59:37 ECG ED PRELIMINARY 2022-08-24 [facility]ital INTERPRETATION 01:59:37 POC GLUCOSE 2022-08-20 Jacinta Berman [facility] 17:35:00 POC GLUCOSE 2022-08-20 Mango Valle [facility] 13:41:00 Flip MAGNESIUM LEVEL 2022-08-20 Cyril Nichelle P [facility] 10:39:00 PHOSPHORUS LEVEL 2022-08-20 [place], Nichelle P [facility] b[facility]av 10:39:00 CBC WITH PLATELET AND 2022-08-20 [place] Nichelle P [facility] DIFFERENTIAL 10:39:00 COMPREHENSIVE METABOLIC PANEL 2022-08-20 Mango Valle [facility] 10:39:00 Flip ESTIMATED GFR 2022-08-20 Mango Valle [facility] 10:39:00 Flip POC GLUCOSE 2022-08-20 [facility] 03:29:00 Flip BASIC METABOLIC PANEL 2022-08-19 [facility] 19:12:00 ESTIMATED GFR 2022-08-19 [facility] Hospi bhargav 19:12:00 XR CHEST 1 VW PORTABLE 2022-08-19 [facility] 14:42:00 POC GLUCOSE 2022-08-19 Mango Valle [facility] 14:05:00 Flip CBC WITH PLATELET AND 2022-08-19 [place], Nichelle P [facility] DIFFERENTIAL 07:03:00 ARTERIAL BLOOD GAS 2022-08-19 [place], Nichelle P [facility] 07:03:00 BASIC METABOLIC PANEL 2022-08-19 Cyril, Nichelle P [facility] 07:03:00 ESTIMATED GFR 2022-08-19 Cyril, Nichelle P [facility] 07:03:00 MAGNESIUM LEVEL 2022-08-19 Cyril, Nichelle P [facility] 07:03:00 PHOSPHORUS LEVEL 2022-08-19 [place], Nichelle P [facility] 07:03:00 POC GLUCOSE 2022-08-19 [facility] Hospit al 03:03:00 Flip POC GLUCOSE 2022-08-18 [facility] Hospit al 23:02:00 Flip POC GLUCOSE 2022-08-18 [facility] Hospit al 17:23:00 Flip XR CHEST 1 VW PORTABLE 2022-08-18 [facility] 15:50:14 Edward POC GLUCOSE 2022-08-18 [facility] 15:03:00 Flip ARTERIAL BLOOD GAS 2022-08-18 Cyril, Nichelle P [facility] pital 08:19:00 IONIZED CALCIUM, ARTERIAL 2022-08-18 Cyril, Nichelle P [facility] 08:19:00 COMPREHENSIVE METABOLIC PANEL 2022-08-18 Cyril, Nichelle P [facility] 08:18:00 MAGNESIUM LEVEL 2022-08-18 Cyril, Nichelle P [facility] 08:18:00 PHOSPHORUS LEVEL 2022-08-18 Cyril, Nichelle P [facility] 08:18:00 CBC WITH PLATELET AND 2022-08-18 [place], Nichelle P [facility] DIFFERENTIAL 08:18:00 ESTIMATED GFR 2022-08-18 [place], Nichelle P [facility] 08:18:00 POC GLUCOSE 2022-08-18 Mango Valle [facility] 02:01:00 Flip METHICILLIN-RESISTANT 2022-08-17 BrunsonZechariah [facility] STAPHYLOCOCCUS AUREUS (MRSA), 23:43:00 RAYMUNDO BASIC METABOLIC PANEL 2022-08-17 Lele Brunson [facility] 23:39:00 MAGNESIUM LEVEL 2022-08-17 [facility] 23:39[facility]00 PHOSPHORUS LEVEL 2022-08-17 [facility] 23:39:00 HEMOGLOBIN, SYRINGE 2022-08-17 Nannette Lele [facility] Ho spital 23:39:00 CBC WITH PLATELET AND 2022-08-17 Lele Brunson [facility] DIFFERENTIAL 23:39:00 ESTIMATED GFR 2022-08-17 [facility] 23:39:00 IONIZED CALCIUM, ARTERIAL 2022-08-17 Lele Brunson [facility] 23:39:00 POC GLUCOSE 2022-08-17 Mango Valle [facility] 20:13:00 Flip INFLUENZA ANTIGEN TEST, 2022-08-17 [facility] REFLEX NEGATIVE TO RPP 20:03:00 RESPIRATORY PATHOGEN PANEL 2022-08-17 BrunsonLele [facility] WITH COVID-19 RT-PCR 20:03:00 POC GLUCOSE 2022-08-17 [facility] 18:08:00 Flip ANTINUCLEAR ANTIBODIES (SHARON) 2022-08-17 Lele Brunson [facility] WITH REFLEX TO TITER AND 17:01:00 PATTERN, IMMUNOFLUORESCENCE THROMBOELASTOGRAPH 2022-08-17 Lele Brunson [facility] pital 17:01:00 D-DIMER 2022-08-17 [facility] 17:01:00 PROTHROMBIN TIME WITH INR 2022-08-17 Lele Brunson [facility] 17:01:00 POC GLUCOSE 2022-08-17 Mango Valle [facility] 15:46:00 Flip POC GLUCOSE 2022-08-17 Mango Valle [facility] 14:14:00 Flip POC GLUCOSE 2022-08-17 Mango Valle [facility] 12:26:00 Flip VANCOMYCIN LEVEL, RANDOM 2022-08-17 [facility] 11:30:00 Edward LACTIC ACID LEVEL 2022-08-17 Cyril, Nichelle P [facility] 11:30:00 POC GLUCOSE 2022-08-17 Mango Valle Hospit al 10:03:00 Flip POC GLUCOSE 2022-08-17 Mango Valle Hospit al 08:02:00 Flip ARTERIAL BLOOD GAS 2022-08-17 Cyril, Nichelle P [facility] 07:21:00 COMPREHENSIVE METABOLIC PANEL 2022-08-17 [place], Nichelle P [facility] 07:20:00 MAGNESIUM LEVEL 2022-08-17 Cyril, Nichelle P [facility] 07:20:00 PHOSPHORUS LEVEL 2022-08-17 [place], Nichelle P [facility] 07:20:00 IONIZED CALCIUM 2022-08-17 [place], Nichelle P [facility] 07:20:00 CBC WITH PLATELET AND 2022-08-17 [place], Nichelle P [facility] DIFFERENTIAL 07:20:00 ESTIMATED GFR 2022-08-17 Cyril, Nichelle P [facility] 07:20:00 ESTIMATED GFR 2022-08-17 Koshti, Tere Humberto [facility] 06:53:00 POC GLUCOSE 2022-08-17 Mango Valle Hospit al 06:17:00 Flip HEMODIALYSIS CATHETER 2022-08-17 [facility] PLACEMENT 04:44:26 XR CHEST 1 VW PORTABLE 2022-08-17 [place], Nichelle P [facility] 04:35:05 POC GLUCOSE 2022-08-17 Mango Valle Hospit al 03:42:[address] ABDOMEN PELVIS W WO 2022-08-[address] [facility] CONTRAST 03:22:30 POC GLUCOSE 2022-08-17 Mango Valle Hospit al 02:03:00 Flip POC GLUCOSE 2022-08-17 Mango Valle Hospit al 00:36:00 Flip POC GLUCOSE 2022-08-16 Mango Valle Hospit al 22:51:00 Flip POC GLUCOSE 2022-08-16 Mango Valle Hospit al 20:08:00 Flip SALICYLATE LEVEL 2022-08-16 Martinaraleigh Abilio [facility] 18:11:00 COMPREHENSIVE METABOLIC PANEL 2022-08-16 Abilio Aranda [facility] 18:11:00 OSMOLALITY, SERUM 2022-08-16 Martinaraleigh [facility]ilio [facility] 18:11:00 LIPASE LEVEL 2022-08-16 Martinaraleigh Abilio [facility] bhargav 18:11:00 AMYLASE LEVEL 2022-08-16 Martinaraleigh Abilio [facility] 18:11:00 ESTIMATED GFR 2022-08-16 Martinaraleigh Abilio [facility] 18:11:00 MAGNESIUM LEVEL 2022-08-16 [facility] bhargav 18:11:00 PHOSPHORUS LEVEL 2022-08-16 [facility] ital 18:11:00 IONIZED CALCIUM, ARTERIAL 2022-08-16 Abilio Aranda [facility] 18:11:00 ARTERIAL BLOOD GAS 2022-08-16 Abilio Aranda Ho spital 18:11:00 HEMOGLOBIN, SYRINGE 2022-08-16 Martinaralegih Abilio [facility] 18:11:00 CBC WITH PLATELET AND 2022-08-16 Manoj [facility] DIFFERENTIAL 18:11:00 LACTIC ACID LEVEL 2022-08-16 [facility] 18:11:00 MANUAL DIFFERENTIAL 2022-08-[address] [facility] ospital 18:11:00 CBC WITH PLATELET AND 2022-08-16 Manoj [facility] DIFFERENTIAL 18:11:00 POC GLUCOSE 2022-08-16 [facility] 18:10:00 Flip URINE DRUGS OF ABUSE SCREEN 2022-08-16 Nichelle Nam [facility] 17:42:00 OSMOLALITY, URINE 2022-08-16 [facility] 17:42:00 CREATININE LEVEL, URINE, 2022-08-16 Abilio Aranda [facility] RANDOM 17:42:00 SODIUM LEVEL, URINE, RANDOM 2022-08-16 Abilio Aranda [facility] 17:42:00 ESTIMATED GFR 2022-08-16 Tere Hamm Humberto [facility] 17:42:00 POC GLUCOSE 2022-08-16 Mango Valle [facility] 15:10:00 Flip ESTIMATED GFR 2022-08-16 Eli Whyte [facility] 12:55:00 MO ARTL CATHJ/CANNULJ 2022-08-16 Cyril, Nichelle P [facility] MNTR/TRANSFUSION SPX PRQ 12:25:42 LACTIC ACID LEVEL 2022-08-16 Cyril, Nichelle P [facility] 12:07:00 TTE COMPLETE, W CONTRAST, W 2022-08-[address] [facility] DOPPLER ([id number]) 12:00:00 [place] ARTERIAL BLOOD GAS 2022-08-16 Guzman Cunningham Ho spital 11:58:00 [place] US ABDOMEN COMPLETE 2022-08-16 Guzman Cunningham H ospital 11:56:00 [place] POTASSIUM LEVEL 2022-08-16 Cyril, Nichelle P [facility] 11:24:00 GLUCOSE LEVEL 2022-08-16 Cyril, Nichelle P [facility] 11:24:00 PROCALCITONIN 2022-08-16 [place], Nichelle P [facility] 11:24:00 AMYLASE LEVEL 2022-08-16 Cyril, Nichelle P [facility] 11:24:00 LIPASE LEVEL 2022-08-16 [place], Nichelle P [facility] 11:24:00 POC GLUCOSE 2022-08-16 Demetria Lopez [facility] 11:18:00 ARTERIAL BLOOD GAS 2022-08-16 [place], Nichelle P [facility] 11:16:00 XR ABDOMEN 1 VW PORTABLE 2022-08-16 Akil Lopezinijulisa Dong [facility] 11:01:19 XR CHEST 1 VW PORTABLE 2022-08-16 [place], Nichelle P [facility] 11:00:58 BLOOD CULTURE, AEROBIC & 2022-08-16 [place], Nichelle P [facility] ANAEROBIC 10:57:00 CORTISOL LEVEL, RANDOM 2022-08-16 Guzman Cunningham [facility] 10:38:00 [place] ARTERIAL BLOOD GAS 2022-08-16 [place], [facility] 10:38:00 B NATRIURETIC PEPTIDE 2022-08-16 [place] 09:28:00 COMPREHENSIVE METABOLIC PANEL 2022-08-16 [place], Nichelle P [facility] 09:28:00 MAGNESIUM LEVEL 2022-08-16 [place], [facility] 09:28:00 PHOSPHORUS LEVEL 2022-08-16 [place] 09:28:00 IONIZED CALCIUM 2022-08-16 [place], [facility] 09:28:00 TYPE AND SCREEN 2022-08-16 [place], [facility] 09:28:00 PARTIAL THROMBOPLASTIN TIME 2022-08-16 [place], Nichelle P [facility] ([facility]) 09:28:00 ESTIMATED GFR 2022-08-16 [place], [facility] 09:28:00 ECG 12-LEAD 2022-08-16 [place], [facility] 09:22:55 CBC WITH PLATELET AND 2022-08-16 [place], [facility]le P [facility] DIFFERENTIAL 09:12:00 PROCALCITONIN 2022-08-16 [place], [facility] 09:12:00 THYROID STIMULATING HORMONE 2022-08-16 [place], Nichelle P [facility] 09:12:00 LIPID PANEL 2022-08-16 [place], [facility] 09:12:00 ADRENOCORTICOTROPIC HORMONE 2022-08-16 [place], Nichelle P [facility] 09:12:00 CORTISOL LEVEL, RANDOM 2022-08-16 [place], [facility]le P [facility] 09:12:00 LACTIC ACID LEVEL 2022-08-16 [place] 09:12:00 MANUAL DIFFERENTIAL 2022-08-16 [place] 09:12:00 CBC WITH PLATELET AND 2022-08-16 [place] DIFFERENTIAL 09:12:00 ESTIMATED GFR 2022-08-16 Nichelle Nam [facility] 09:10:00 POC GLUCOSE 2022-08-16 Jose Lopezque [facility] b[facility]av 09:10:00 MO CRITICAL CARE ILL/INJURED 2022-08-16 [facility] PATIENT INIT 30-74 MIN 08:16:36 Zuheir MO CRITICAL CARE ILL/INJURED 2022-08-16 [facility] PATIENT ADDL 30 MIN 08:16:36 Zuheir HC CVL NON-TUNNELED INSERT 2022-08-16 [facility] 5YRS OR > 08:16:[address] ANGIOGRAM PE CHEST 2022-08-16 [facility] 06:52:50 Zuheir BLOOD CULTURE, AEROBIC & 2022-08-16 [facility] ANAEROBIC 06:26:00 Zuheir BLOOD CULTURE, AEROBIC & 2022-08-16 [facility] ANAEROBIC 06:17:00 Zuheir URINE CULTURE 2022-08-16 [facility] Jorge URINALYSIS 2022-08-16 [facility] al 05:01:00 Jorge COVID-19 QUALITATIVE RT-PCR 2022-08-16 [facility] 04:41:00 Jorge TROPONIN, I-STAT 2022-08-16 [facility] 04:41:00 Jorge LACTIC ACID, I-STAT 2022-08-16 [facility] 04:41:00 Jorge LACTIC ACID, I-STAT 2022-08-16 [facility] 02:53:00 Jorge ECG ED PRELIMINARY 2022-08-16 [facility] INTERPRETATION 01:57:47 Jorge XR CHEST 1 VW PORTABLE 2022-08-16 [facility] 01:47:52 Jorge CBC WITH PLATELET AND 2022-08-16 [facility] DIFFERENTIAL 01:24:00 Jorge COMPREHENSIVE METABOLIC PANEL 2022-08-16 [facility] 01:24:00 Jorge TROPONIN, I-STAT 2022-08-16 [facility] 01:24:00 Jorge ESTIMATED GFR 2022-08-16 [facility] 01:24:00 Jorge ECG 12-LEAD 2022-08-16 [facility] 01:00:11 Jorge PHOSPHORUS 2022-08-13 [facility] xas 09:55:00 [facility] MAGNESIUM 2022-08-13 [facility] xa 09:55:00 [facility] BASIC METABOLIC PANEL (NA, K, 2022-08-13 [facility] CL, CO2, GLUCOSE, BUN, 09:55:00 [facility] ran CREATININE, CA) CBC WITH DIFF 2022-08-13 [facility] xa 09:55:00 [facility] LEGIONELLA URINARY ANTIGEN 2022-08-12 [facility] TST 23:38:00 [facility] PNEUMOCOCCAL ANTIGEN 2022-08-12 [facility] 23:37:00 [facility] POCT GLUCOSE (AUTOMATED) 2022-08-12 [facility] 23:20:00 [facility]UCOSE (AUTOMATED) 2022-08-12 [facility] 18:48:00 [facility] POCT GLUCOSE (AUTOMATED) 2022-08-12 [facility] 14:55:00 [facility] MAGNESIUM 2022-08-12 Maxi [facility] xa 10:52:00 [facility] THYROID STIMULATING HORMONE 2022-08-12 [facility] 10:52:00 [facility] BASIC METABOLIC PANEL (NA, K, 2022-08-12 [facility] CL, CO2, GLUCOSE, BUN, 10:52:00 Medical ran CREATININE, CA) CBC WITHOUT DIFF 2022-08-12 Maxi [facility] exas 10:52:00 [facility] POCT GLUCOSE (AUTOMATED) 2022-08-12 [facility] 03:35[facility]00 [facility] POCT GLUCOSE (AUTOMATED) 2022-08-11 Eleazar [facility] 23:24:00 [facility] URINE DRUG (IMMUNOASSAY) - 2022-08-[address] [facility] COMPREHENSIVE DRUG SCREEN 18:42:00 [facility] COVID-19 (MOLECULAR TESTING 2022-08-11 Christelle [facility] NUCLEIC ACID AMPLIFICATION) 18:42:00 [facility] COVID INTERPRETATION 2022-08-11 Christelle [facility] 18:42:00 [facility] PROCALCITONIN 2022-08-11 [facility] 18:41:00 [facility] POCT GLUCOSE (AUTOMATED) 2022-08-11 Eleazar [facility] 18:04:00 [facility] POCT GLUCOSE (AUTOMATED) 2022-08-11 Eleazar [facility] 15:26:00 [facility] VANCOMYCIN TROUGH 2022-08-11 [facility] 10:10:00 [facility] MAGNESIUM 2022-08-11 [facility] xa 06:14:00 [facility] BASIC METABOLIC PANEL (NA, K, 2022-08-11 [facility] CL, CO2, GLUCOSE, BUN, 06:14:00 [facility] CREATININE, CA) CBC WITH DIFF 2022-08-11 [facility] 06:14:00 [facility] ACTIVATED PARTIAL THRMPLAS 2022-08-11 Krystal Rios [facility] GARCÍA 06:14:00 [facility] AC PANEL 20 + LACTIC ACID 2022-08-11 Andrew German [facility] 06:14:00 [facility] POCT GLUCOSE (AUTOMATED) 2022-08-11 Eleazar [facility] 02:28:00 [facility] ACTIVATED PARTIAL THRMPLAS 2022-08-11 Krystal Rios [facility] GARCÍA 00:26:00 [facility] POCT GLUCOSE (AUTOMATED) 2022-08-11 Eleazar [facility] 00:26:00 [facility] ACUTE CARE VENOUS COOX PANEL 2022-08-10 Marysol [facility] 23:19:00 Medical Branch AC PANEL 20 + LACTIC ACID 2022-08-10 Maxi [facility] 22:25:00 [facility] URINE CULTURE 2022-08-10 [facility] 19:36:00 [facility] Branch POCT GLUCOSE (AUTOMATED) 2022-08-10 Eleazar [facility] 19:34:00 [facility] AC PANEL 20 + LACTIC ACID 2022-08-10 Maxi [facility] 19:23:[address] CHEST PULMONARY ANGIOGRAM 2022-08-10 Mraysol [facility] 18:20:29 [facility] AC PANEL 20 + LACTIC ACID 2022-08-10 Maxi [facility] 16:19:00 Medical Branch POCT GLUCOSE (AUTOMATED) 2022-08-10 Eleazar [facility] 15:50:00 [facility] AC PANEL 20 + LACTIC ACID 2022-08-10 Maxi [facility] 12:01:00 Medical Branch MAGNESIUM 2022-08-10 Oc Amaya [facility] 10:30:00 [facility] BASIC METABOLIC PANEL (NA, K, 2022-08-10 Oc Amaya [facility] CL, CO2, GLUCOSE, BUN, 10:30:00 [facility] CREATININE, CA) VANCOMYCIN RANDOM LEVEL 2022-08-10 Jaciel Regalado [facility] 10:30:00 Medical Branch AC PANEL 20 + LACTIC ACID 2022-08-10 Maxi [facility] 09:01:00 Medical Branch XR CHEST 1 VW 2022-08-10 [facility] 06:42:00 [facility] AC PANEL 20 + LACTIC ACID 2022-08-10 Maxi [facility] 05:58:00 [facility] GALV ONLY - INFLUENZA A B RSV 2022-08-10 [facility] PCR 04:59:00 Medical Branch RESPIRATORY PANEL BY PCR 2022-08-10 Maxi, Andrew [facility] 04:59:00 [facility] PROCALCITONIN 2022-08-10 Marysol [facility] xa 02:32:00 [facility] POCT GLUCOSE (AUTOMATED) 2022-08-10 Eleazar [facility] 02:31:00 [facility] MRSA / MSSA SCREEN BY PCR, 2022-08-[address] [facility] NARES 02:31:[address] [facility] [address] ABDOMEN PELVIS WO CONTRAST 2022-08-09 Shaggy Gregg [facility] 23:07:46 [facility] POCT GLUCOSE (AUTOMATED) 2022-08-09 [facility] 22:48:00 [facility] XR CHEST 1 VW 2022-08-09 Marysol [facility] xa 17:38:00 [facility] TRANSTHORACIC ECHO (TTE) 2022-08-09 Ruthann Del Angel [facility] COMPLETE W/ CONTRAST 16:35:00 [facility] LACTATE DEHYDROGENASE 2022-08-09 Marysol [facility] 15:47:00 [facility] BLOOD CULTURE SCREEN 2022-08-09 Marysol [facility] 15:44:00 [facility] ACUTE CARE ARTERIAL BLOOD GAS 2022-08-09 Shaggy Gregg [facility] 15:30:00 [facility] POCT GLUCOSE (AUTOMATED) 2022-08-09 [facility] 13:06:00 [facility] POCT GLUCOSE (AUTOMATED) 2022-08-09 Eleazar [facility] 12:00:00 [facility] PHOSPHORUS 2022-08-09 [facility] 11:54:00 [facility] MAGNESIUM 2022-08-09 [facility] xa 11:54:00 [facility] C-REACTIVE PROTEIN 2022-08-09 [facility] 11:54:00 [facility] TROPONIN I 2022-08-09 [facility] xa 11:54:00 [facility] HEPATIC FUNCTION PANEL 2022-08-09 [facility] ([id number]) (ALB,T.PRO,BILI 11:54:00 Medical Branch T,BU/BC,ALT,AST,ALK PHOS) BASIC METABOLIC PANEL (NA, K, 2022-08-09 Ivan Vang [facility] CL, CO2, GLUCOSE, BUN, 11:54:00 [facility] ranch CREATININE, [place]) LIPID PANEL ([id number])(TOTAL 2022-08-09 Ivan Vang [facility] CHOLESTEROL, TRIGLYCERIDES, 11:54:00 [facility] HDL) SEDIMENTATION RATE 2022-08-09 Ciera [facility] 11:54:00 [facility] CBC WITH DIFF 2022-08-09 Ciera [facility] xas 11:54:00 [facility] GLYCOSYLATED HEMOGLOBIN (A1C) 2022-08-09 Ivan Vang [facility] 11:54:00 [facility] PROTHROMBIN TIME / INR 2022-08-09 Ciera [facility] 11:54:00 [facility] N-TERMINAL PRO-BNP 2022-08-09 Ajay Reyna [facility] 11:54:00 [facility] LACTIC ACID WHOLE BLOOD 2022-08-09 Ivan Vang [facility] 11:54:00 [facility] LACTIC ACID WHOLE BLOOD 2022-08-09 YvetteorElizabeth storey [facility] 10:13:00 [facility] URINE DRUG (IMMUNOASSAY) - 2022-08-09 YvetteorElizabeth storey [facility] COMPREHENSIVE DRUG SCREEN 07:38:00 [facility] URINALYSIS 2022-08-09 Elizabeth Reyes [facility] ex 07:38:00 [facility] POCT GLUCOSE(AGE >30DAYS) 2022-08-09 Elizabeth Reyes [facility] 06:35:00 [facility] POCT GLUCOSE (AUTOMATED) 2022-08-09 [facility] M[facility] 06:33:00 [facility] LACTIC ACID WHOLE BLOOD 2022-08-09 [facility]vettecannon memorial hospitalElizabeth [facility] 06:31:00 [facility] HB ECG ROUTINE & RHYTHM STRIP 2022-08-09 Ruthann Del Angel [facility] 06:20:38 Medical Branch MAGNESIUM 2022-08-09 [facility] 03:59:00 Medical Branch TROPONIN I 2022-08-09 SheridanutElizabeth [facility] 03:59:00 Medical Branch XR CHEST 1 VW 2022-08-09 Elizabeth Reyes [facility] ex 02:48:30 Medical Branch LIPASE 2022-08-09 [facility]vettecannon memorial hospitalElizabeth [facility] ex 02:34:00 Medical Branch TROPONIN I 2022-08-09 SheridanutElizabeth [facility] 02:34:00 Medical Branch COMP. METABOLIC PANEL ([id number]) 2022-08-09 Elizabeth Reyes [facility] 02:34:00 Medical Branch CBC WITH DIFF 2022-08-09 Elizabeth Reyes [facility] 02:34:00 Medical Branch PROTHROMBIN TIME / INR 2022-08-09 Elizabeth Reyes [facility] 02:34:00 Medical Branch EKG-12 LEAD 2022-08-09 [facility] xas 01:17:43 [facility] CONSENT/REFUSAL FOR DIAGNOSIS 2022-08-09 Doctor Unassigned, [facility] AND TREATMENT 00:52:34 [place] [facility] ECG ED PRELIMINARY 2022-08-07 Jacqueline Cardona spital INTERPRETATION 23:18:52 Rosales US GALLBLADDER 2022-08-07 Jacqueline Cardona Hospi bhargav 22:33:26 Rosales XR CHEST 2 VW 2022-08-07 Jacqueline Cardona Hos[facility] b[facility]av 21:45:10 Rsoales CBC WITH PLATELET AND 2022-08-07 Jacqueline Cardona [facility] DIFFERENTIAL 21:20:00 [facility] COMPREHENSIVE METABOLIC PANEL 2022-08-07 Jacqueline Cardona [facility] 21:20:00 [place] TROPONIN T 2022-08-07 Jacqueline Cardona Hospi bh[facility]av 21:20:00 [place] ESTIMATED GFR 2022-08-07 Jacqueline Cardona [facility] b[facility]av 21:20:00 [place] AMYLASE LEVEL 2022-08-07 Jacqueline Cardona [facility] b[facility]av 21:20:00 [place] LIPASE LEVEL 2022-08-07 Cardona, Jacqueline [facility] 21:20:00 [place] ECG 12-LEAD 2022-08-07 Jacqueline Cardona [facility] 20:40:[address] TRAUMA HEAD WO CONTRAST 2022-07-21 [facility] 01:15:[address] TRAUMA CERVICAL SPINE WO 2022-07-21 Becki Hooker U [facility] CONTRAST 01:15:47 Medical Branch NOTICE OF PRIVACY PRACTICES 2022-07-21 Doctor Unassigned, [facility] 00:41:54 [place] [facility] CONSENT/REFUSAL FOR DIAGNOSIS 2022-07-21 Doctor Unassigned, [facility] AND TREATMENT 00:41:24 [place] [facility] HC ARTERIAL DOPPLER LEG UNI 2021-04-[address] [facility] 16:14:00 [facility] URINE DRUGS OF ABUSE SCREEN 2021-04-06 [facility] 16:49:00 [facility] URINALYSIS SCREEN AND 2021-04-06 [facility] MICROSCOPY, WITH REFLEX TO 16:49:00 Tom Ne CULTURE POC GLUCOSE 2021-04-06 [facility] 16:41:00 Iadara Ne POC GLUCOSE 2021-04-06 [facility] 12:19:00 Tom Olivia COVID-19 QUALITATIVE RT-PCR 2021-04-06 [facility] 10:18:00 Margie HEMOGLOBIN A1C 2021-04-06 [facility] 08:24[facility]00 Margie HC COMPLETE BLD COUNT W/AUTO 2021-04-06 [facility] DIFF 08:24:00 Margie MAGNESIUM LEVEL 2021-04-06 [facility] 08:24:00 Margie COMPREHENSIVE METABOLIC PANEL 2021-04-06 [facility] 08:24:00 Margie LIPASE LEVEL 2021-04-06 [facility] 08:24:00 Margie THYROID STIMULATING HORMONE 2021-04-06 [facility] 08:24:00 Margie PROTHROMBIN TIME WITH INR 2021-04-06 [facility] 08:24:00 Margie PARTIAL THROMBOPLASTIN TIME 2021-04-06 [facility] (PTT) 08:24:00 Margie ESTIMATED GFR 2021-04-06 [facility] 08:24:00 Margie POC GLUCOSE 2021-04-06 Dale Kumar [facility] 02:20:00 TROPONIN 2021-04-06 [facility] 01:35[facility]00 [facility] TROPONIN 2021-04-05 [facility] 23:41:00 [facility] XR CHEST 1 VW PORTABLE 2021-04-05 [facility] 21:45:03 ECG ED PRELIMINARY 2021-04-05 [facility] pital INTERPRETATION 21:14:30 COMPREHENSIVE METABOLIC PANEL 2021-04-[address] [facility] 20:38:00 [facility] HC COMPLETE BLD COUNT W/AUTO 2021-04-05 [facility] DIFF 20:38:00 [facility] B NATRIURETIC PEPTIDE 2021-04-05 [facility] 20:38:00 [facility] PROTHROMBIN TIME WITH INR 2021-04-05 [facility] 20:38:00 [facility] PARTIAL THROMBOPLASTIN TIME 2021-04-05 [facility] (PTT) 20:38:00 [facility] ESTIMATED GFR 2021-04-05 [facility] 20:38:00 [facility] TROPONIN, I-STAT 2021-04-05 [facility] Hospi bhargav 20:38:00 [facility] ECG 12-LEAD 2021-04-05 [facility] 20:34:28 [facility] MAGNESIUM 2020-05-22 [facility] 09:45:00 [facility] TROPONIN I 2020-05-22 Chaz [facility] exas 09:45:00 Medical Branch BASIC METABOLIC PANEL (NA, K, 2020-05-22 Jose Del [facility] CL, CO2, GLUCOSE, BUN, 09:45:00 Medical B ranch CREATININE, CA) MAGNESIUM 2020-05-21 [facility] xa 09:13:00 Medical Branch BASIC METABOLIC PANEL (NA, K, 2020-05-21 [facility] CL, CO2, GLUCOSE, BUN, 09:13:00 Medical B ranch CREATININE, CA) MAGNESIUM 2020-05-20 [facility] xa 09:55:00 [facility] Branch BASIC METABOLIC PANEL (NA, K, 2020-05-20 [facility] CL, CO2, GLUCOSE, BUN, 09:55:00 Medical B ranch CREATININE, CA) EXTRA TUBE LAV 2020-05-20 Reuben Wan [facility] 09:55:00 Medical Branch PROCALCITONIN 2020-05-19 [facility] 18:25:00 Medical Branch PROTHROMBIN TIME / INR 2020-05-19 [facility] 16:17:00 Medical Branch D-DIMER 2020-05-19 [facility] 16:17:00 Medical Branch ACTIVATED PARTIAL THRMPLAS 2020-05-19 [facility] GARCÍA 16:17:00 Medical Branch PNEUMOCOCCAL ANTIGEN 2020-05-19 [facility] 10:36:00 Medical Branch BLOOD CULTURE SCREEN 2020-05-19 [facility] 08:41:00 Medical Branch BLOOD CULTURE SCREEN 2020-05-19 [facility] 08:27:00 Medical Branch PHOSPHORUS 2020-05-19 [facility] 08:24:00 Medical Branch LACTATE DEHYDROGENASE 2020-05-19 [facility] 08:24:00 Medical Branch MAGNESIUM 2020-05-19 [facility] 08:24:00 Medical Branch FERRITIN SERUM 2020-05-19 [facility] 08:24:00 Medical Branch C-REACTIVE PROTEIN 2020-05-19 [facility] 08:24:00 Medical Branch HEPATIC FUNCTION PANEL 2020-05-19 [facility] ([id number]) (ALB,T.PRO,BILI 08:24:00 Medical Branch T,BU/BC,ALT,AST,ALK PHOS) BASIC METABOLIC PANEL (NA, K, 2020-05-19 [facility] CL, CO2, GLUCOSE, BUN, 08:24:00 Medical B ran CREATININE, CA) CBC WITH DIFF 2020-05-19 [facility] 08:24:00 [facility] N-TERMINAL PRO-BNP 2020-05-19 [facility] 08:24:00 [facility] LACTIC ACID WHOLE BLOOD 2020-05-19 [facility] 08:23:00 Medical Branch MRSA / MSSA SCREEN BY PCR, 2020-05-19 [facility] NARES 08:02:00 Medical Branch URINE CULTURE 2020-05-19 [facility] 08:00:00 Medical Branch COVID-19 (PCR MOLECULAR 2020-05-19 Elda [facility] TESTING) 07:16:00 Medical Branch COVID-19 (ID NOW RAPID 2020-05-19 July [facility] TESTING) 03:24:[address] CERVICAL SPINE WO CONTRAST 2020-05-19 Janae Still [facility] 01:43:[address] HEAD WO CONTRAST 2020-05-19 Janae Still [facility] 01:42:26 Medical Branch TROPONIN I 2020-05-19 [facility] 00:09:00 [facility] BASIC METABOLIC PANEL (NA, K, 2020-05-19 Janae Still [facility] CL, CO2, GLUCOSE, BUN, 00:09:00 Medical B ran CREATININE, CA) AC PANEL 20 + LACTIC ACID 2020-05-18 Janae Still [facility] 23:53:00 Medical Branch CRITICAL CARE 2020-05-18 [facility] 23:49:29 [facility] URINALYSIS 2020-05-18 [facility] 23:47:00 [facility] XR CHEST 1 VW 2020-05-18 [facility] 23:31:40 Medical Branch SALICYLATE 2020-05-18 [facility] 23:28:00 [facility] ETHANOL 2020-05-18 [facility] 23:28:00 [facility] CBC WITH DIFF 2020-05-18 [facility] 23:28:00 [facility] LACTIC ACID WHOLE BLOOD 2020-05-18 [facility] 23:23:00 [facility] EKG-12 LEAD 2020-05-18 [facility] 23:22:21 [facility] EKG-12 LEAD 2020-05-18 [facility] 23:15:55 Medical Branch ADC / LCC - DRUG SCREEN 2020-05-18 [place] TRIAGE 13:47:00 Medical Branch EMERGENCY DEPARTMENT 2020-05-18 Doctor Unassigned, [facility] DOCUMENTS 05:01:00 [place] [facility] AGREEMENTS AUTHORIZATIONS AND 2020-05-18 Doctor Unassigned, [facility] IRREVOCABLE ASSIGNMENTS (FORM 05:01:00 [place] [facility] CHEST PULMONARY ANGIOGRAM 2020-05-17 Arvind Guerra [facility] 02:38:05 Medical Branch XR CHEST 1 VW COVID 2020-05-17 Elizabeth Reyes [facility] 01:28:28 [facility] COVID-19 (ID NOW RAPID 2020-05-[address] [facility] TESTING) 01:08:00 Medical Branch PROTHROMBIN TIME / INR 2020-05-[address] [facility] 01:03:00 Medical Branch D-DIMER 2020-05-17 Arvind Guerra [facility] 01:03:00 Medical Branch LIPASE 2020-05-17 Elizabeth Reyes [facility] ex 01:01:00 Medical Branch TROPONIN I 2020-05-17 Elizabeth Reyes [facility] 01:01:00 Medical Branch COMP. METABOLIC PANEL ([id number]) 2020-05-17 Elizabeth [facility] 01:01:00 [facility] Branch CBC WITH DIFF 2020-05-17 Elizabeth Reyes [facility] ex 01:01:00 Medical Branch N-TERMINAL PRO-BNP 2020-05-17 Arvind Guerra [facility] 01:01:00 Medical Branch EKG-12 LEAD 2020-05-17 Elizabeth Reyes [facility] 01:00:46 Medical Branch NOTICE OF PRIVACY PRACTICES 2020-05-17 Doctor Unassigned, [facility] 00:50:07 [place] [facility] CONSENT/REFUSAL FOR DIAGNOSIS 2020-05-17 Doctor Unassigned, [facility] AND TREATMENT 00:49:55 [place] [facility] NOTICE OF PRIVACY PRACTICES 2019-12-02 Doctor Unassigned, [facility] 20:25:32 [place] [facility] CONSENT/REFUSAL FOR DIAGNOSIS 2019-12-02 Doctor Unassigned, [facility] AND TREATMENT 20:25:20 [place] [facility] Fundoplication 2019-09-17 Letha [place] 06:00:00 AUTHORIZATION FOR RELEASE OF 2019-04-27 Doctor Unassigned, [facility] PHI 05:01:00 [place] [facility] Lumbar epidural steroid 2016-12-18 [facility] injection 05:00:00 Lumbar epidural steroid 2016-12-12 [facility] [place] injection<sup>1</sup> 05:00:00 Fusion of lumbar 2013-09-29 Letha Jalil n spine<sup>2</sup> 00:00:00 Fusion of thoracic 2011-09-29 [facility]<sup>3</sup> 00:00:00 Spinal fusion for scoliosis Danie Mendes Plan of Care Planned Activity Planned Date Details Comments Source Future Scheduled 2028-01-06 DTAP/TDAP/TD VACCINES ([address] [facility] Test 00:00:00 - Td or Tdap) [code = [facility] Center DTAP/TDAP/TD VACCINES (2 - Td or Tdap)] Future Scheduled 2028-01-06 DTAP/TDAP/TD VACCINES ([address] [facility] Test 00:00:00 - Td or Tdap) [code = Medica l Center DTAP/TDAP/TD VACCINES (2 - Td or Tdap)] Future Scheduled 2028-01-06 DTAP/TDAP/TD VACCINES ([address] [facility] Test 00:00:00 - Td or Tdap) [code = Medica l Center DTAP/TDAP/TD VACCINES (2 - Td or Tdap)] Future Scheduled 2028-01-06 DTAP/TDAP/TD VACCINES ([address] [facility] Test 00:00:00 - Td or Tdap) [code = Medica l Center DTAP/TDAP/TD VACCINES (2 - Td or Tdap)] Future Scheduled 2028-01-06 DTAP/TDAP/TD VACCINES ([address] [facility] Test 00:00:00 - Td or Tdap) [code = Medica l Center DTAP/TDAP/TD VACCINES (2 - Td or Tdap)] Future Scheduled 2026-02-07 Lipid panel (procedure) [facility] Test 00:00:00 [code = [id number]] Medical Ce nter Future Scheduled 2026-02-07 Lipid panel (procedure) [facility] 00:00:00 [code = [id number]] Medical Ce nter Future Scheduled 2026-02-07 Lipid panel (procedure) [facility] 00:00:00 [code = [id number]] Medical Ce nter Future Scheduled 2025-08-16 Lipid panel (procedure) [facility] 00:00:00 [code = [id number]] Medical Ce nter Future Scheduled 2025-08-16 Lipid panel (procedure) [facility] 00:00:00 [code = [id number]] Medical Ce nter Future Scheduled 2024-01-29 Lipid panel (procedure) [facility] 00:00:00 [code = [id number]] Medical Ce nter Future Scheduled 2024-01-29 Lipid panel (procedure) [facility] 00:00:00 [code = [id number]] Medical Ce nter Future Scheduled 2024-01-29 Lipid panel (procedure) [facility] 00:00:00 [code = [id number]] Medical Ce nter Future Scheduled 2024-01-[address] [facility] 00:00:00 Counseling and Screening Med [facility] (12+) [code = Tobacco Cessation Counseling and Screening (12+)] Future Scheduled 2024-01-[address] [facility] 00:00:00 Counseling and Screening Med [facility] (12+) [code = Tobacco Cessation Counseling and Screening (12+)] Future Scheduled 2024-01-[address] [facility] 00:00:00 Counseling and Screening Med [facility] (12+) [code = Tobacco Cessation Counseling and Screening (12+)] Future Scheduled 2023-08-16 Hepatitis C screening [facility] 10:25:31 (procedure) [code = Hospital [id number]] Future Scheduled 2023-08-16 COVID-19 VACCINE (3 - [facility] 10:25:31 ) [code = Hosp ital COVID-19 VACCINE ( - season)] Future Scheduled 2023-08-16 INFLUENZA VACCINE (#1) [facility] 10:25:31 [code = INFLUENZA VACCINE Ho spital (#1)] Future Scheduled 2023-05-30 Influenza Vaccine (#1) [facility] [code = Influenza Vaccine Me dical Center (#1)] Future Scheduled 2023-05-30 Influenza Vaccine (#1) [facility] 00:00:00 [code = Influenza Vaccine Me dical Center (#1)] Future Scheduled 2023-05-30 Influenza Vaccine (#1) [facility] 00:00:00 [code = Influenza Vaccine Me dical Center (#1)] Future Scheduled 2023-05-12 [facility]atitis C screening [facility] 09:04:02 (procedure) [code = Hospital [id number]] Future Scheduled 2023-05-12 COVID-19 VACCINE (3 - [facility] 09:04:02 Moderna series) [code = Hosp ital COVID-19 VACCINE (3 - Moderna series)] Future Scheduled 2023-05-12 INFLUENZA VACCINE [code = [facility] 09:04:02 INFLUENZA VACCINE] Hospital Future Scheduled 2023-05-12 [facility] C screening [facility] 09:04:02 (procedure) [code = Hospital [id number]] Future Scheduled 2023-05-12 COVID-19 VACCINE (3 - [facility] 09:04:02 Moderna series) [code = Hosp ital COVID-19 VACCINE (3 - Moderna series)] Future Scheduled 2023-05-12 INFLUENZA VACCINE [code = [facility] 09:04:02 INFLUENZA VACCINE] Hospital Future Scheduled 2023-05-06 [facility] C screening [facility] 19:54:57 (procedure) [code = Hospital [id number]] Future Scheduled 2023-05-06 COVID-19 VACCINE (3 - [facility] 19:54:57 Moderna series) [code = Hosp ital COVID-19 VACCINE (3 - Moderna series)] Future Scheduled 2023-05-06 INFLUENZA VACCINE [code = [facility] 19:54:57 INFLUENZA VACCINE] Hospital Future Scheduled 2023-05-06 [facility] C screening [facility] 19:54:57 (procedure) [code = Hospital [id number]] Future Scheduled 2023-05-06 COVID-19 VACCINE (3 - [facility] 19:54:57 Moderna series) [code = Hosp ital COVID-19 VACCINE (3 - Moderna series)] Future Scheduled 2023-05-06 INFLUENZA VACCINE [code = [facility] 19:54:57 INFLUENZA VACCINE] Hospital Future Scheduled 2023-04-29 [facility] C screening [facility] 14:10:33 (procedure) [code = Hospital [id number]] Future Scheduled 2023-04-29 COVID-19 VACCINE (3 - [facility] 14:10:33 Moderna series) [code = Hosp ital COVID-19 VACCINE (3 - Moderna series)] Future Scheduled 2023-04-29 INFLUENZA VACCINE [code = [facility] 14:10:33 INFLUENZA VACCINE] Hospital Future Scheduled 2023-04-29 [facility] C screening [facility] 14:10:33 (procedure) [code = Hospital [id number]] Future Scheduled 2023-04-29 COVID-19 VACCINE (3 - [facility] 14:10:33 Moderna series) [code = Hosp ital COVID-19 VACCINE (3 - Moderna series)] Future Scheduled 2023-04-29 INFLUENZA VACCINE [code = [facility] 14:10:33 INFLUENZA VACCINE] Hospital Future Scheduled 2023-04-23 Hepatitis C screening [facility] 21:17:54 (procedure) [code = Hospital [id number]] Future Scheduled 2023-04-23 COVID-19 VACCINE (3 - [facility] 21:17:54 Moderna series) [code = Hosp ital COVID-19 VACCINE (3 - Moderna series)] Future Scheduled 2023-04-23 INFLUENZA VACCINE [code = [facility] 21:17:54 INFLUENZA VACCINE] Hospital Future Scheduled 2023-04-23 [facility] C screening [facility] 21:17:54 (procedure) [code = Hospital [id number]] Future Scheduled 2023-04-23 COVID-19 VACCINE (3 - [facility] 21:17:54 Moderna series) [code = Hosp ital COVID-19 VACCINE (3 - Moderna series)] Future Scheduled 2023-04-23 INFLUENZA VACCINE [code = [facility] 21:17:54 INFLUENZA VACCINE] Hospital Future Scheduled 2023-04-23 [facility] C screening [facility] 21:17:54 (procedure) [code = Hospital [id number]] Future Scheduled 2023-04-23 COVID-19 VACCINE (3 - [facility] 21:17:54 Moderna series) [code = Hosp ital COVID-19 VACCINE (3 - Moderna series)] Future Scheduled 2023-04-23 INFLUENZA VACCINE [code = [facility] 21:17:54 INFLUENZA VACCINE] Hospital Future Scheduled 2023-02-26 [facility] C screening [facility] 12:35:54 (procedure) [code = Hospital [id number]] Future Scheduled 2023-02-26 COVID-19 VACCINE (3 - [facility] 12:35:54 Booster for Moderna Hospital series) [code = COVID-19 VACCINE (3 - Booster for Moderna series)] Future Scheduled 2023-02-26 INFLUENZA VACCINE [code = [facility] 12:35:54 INFLUENZA VACCINE] Hospital Future Scheduled 2023-02-[address] [facility] measurement (procedure) [facility] [code = [id number]] Future Scheduled 2023-02-[address] [facility] 00:[facility]:00 measurement (procedure) [facility] [code = 12463661] Future Scheduled 2023-02-[address] [facility] 00:00:00 measurement (procedure) [facility] [code = 24574880] Future Scheduled 2023-01-31 Hepatitis C screening [facility] 12:25:32 (procedure) [code = Hospital [id number]] Future Scheduled 2023-01-31 COVID-19 VACCINE (3 - [facility] 12:25:32 Booster for Moderna Hospital series) [code = COVID-19 VACCINE (3 - Booster for Moderna series)] Future Scheduled 2023-01-31 INFLUENZA VACCINE [code = [facility] 12:25:32 INFLUENZA VACCINE] Hospital Future Scheduled 2023-01-31 [facility] C screening [facility] 12:25:32 (procedure) [code = Hospital [id number]] Future Scheduled 2023-01-31 COVID-19 VACCINE (3 - [facility] 12:25:32 Booster for Moderna Hospital series) [code = COVID-19 VACCINE (3 - Booster for Moderna series)] Future Scheduled 2023-01-31 INFLUENZA VACCINE [code = [facility] 12:25:32 INFLUENZA VACCINE] Hospital Future Scheduled 2023-01-31 [facility] C screening [facility] 12:25:32 (procedure) [code = Hospital [id number]] Future Scheduled 2023-01-31 COVID-19 VACCINE (3 - [facility] 12:25:32 Booster for Moderna Hospital series) [code = COVID-19 VACCINE (3 - Booster for Moderna series)] Future Scheduled 2023-01-31 INFLUENZA VACCINE [code = [facility] 12:25:32 INFLUENZA VACCINE] Hospital Future Scheduled 2023-01-31 [facility] C screening [facility] 12:25:32 (procedure) [code = Hospital [id number]] Future Scheduled 2023-01-31 COVID-19 VACCINE (3 - [facility] 12:25:32 Booster for Moderna Hospital series) [code = COVID-19 VACCINE (3 - Booster for Moderna series)] Future Scheduled 2023-01-31 INFLUENZA VACCINE [code = [facility] 12:25:32 INFLUENZA VACCINE] Hospital Future Scheduled 2023-01-31 [facility] C screening [facility] 12:25:32 (procedure) [code = Hospital [id number]] Future Scheduled 2023-01-31 COVID-19 VACCINE (3 - [facility] 12:25:32 Booster for Moderna Hospital series) [code = COVID-19 VACCINE (3 - Booster for Moderna series)] Future Scheduled 2023-01-31 INFLUENZA VACCINE [code = [facility] 12:25:32 INFLUENZA VACCINE] Hospital Future Scheduled 2023-01-23 Hepatitis C screening [facility] 14:53:49 (procedure) [code = Hospital [id number]] Future Scheduled 2023-01-23 COVID-19 VACCINE (3 - [facility] 14:53:49 Booster for Moderna Hospital series) [code = COVID-19 VACCINE (3 - Booster for Moderna series)] Future Scheduled 2023-01-23 INFLUENZA VACCINE [code = [facility] 14:53:49 INFLUENZA VACCINE] Hospital Future Scheduled 2022-09-[address] [facility] 00:00:00 (12+) [code = DEPRESSION Med ical Center SCREENING (12+)] Future Scheduled 2022-09-[address] [facility] 00:00:00 (12+) [code = DEPRESSION Med ical Center SCREENING (12+)] Future Scheduled 2022-08-21 HEPATITIS B VACCINES (1 [facility] 12:08:37 of 3 - 3-dose series) Hospit al [code = HEPATITIS B VACCINES (1 of 3 - 3-dose series)] Future Scheduled 2022-08-21 [facility] C screening [facility] 12:08:37 (procedure) [code = Hospital [id number]] Future Scheduled 2022-08-21 COVID-19 VACCINE (3 - [facility] 12[facility]08:37 Booster for Moderna Hospital series) [code = COVID-19 VACCINE (3 - Booster for Moderna series)] Future Scheduled 2022-08-21 INFLUENZA VACCINE [code = [facility] 12:08:37 INFLUENZA VACCINE] Hospital Future Scheduled 2022-05-30 INFLUENZA VACCINE (#1) [facility] [code = INFLUENZA VACCINE [facility] Center (#1)] Future Scheduled 2022-01-22 COVID-19 VACCINE (5 - [facility] Booster for Modern[facility] Center series) [code = COVID-19 VACCINE (5 - Booster for Moderna series)] Future Scheduled 2022-01-22 COVID-19 VACCINE (5 - [facility]00 Booster for Moderna Medical Center series) [code = COVID-19 VACCINE (5 - Booster for Moderna series)] Future Scheduled 2022-01-22 COVID-19 VACCINE (5 - [facility] 00[facility]:00 Booster for Moderna Medical Center series) [code = COVID-19 VACCINE (5 - Booster for Moderna series)] Future Scheduled 2021-10-24 COVID-19 VACCINE (3 - [facility] 00[facility]00 Moderna risk series) Medical Center [code = COVID-19 VACCINE (3 - Moderna risk series)] Future Scheduled 2021-10-24 COVID-19 VACCINE (3 - [facility] 00:[facility]:00 Moderna risk series) Medical Center [code = COVID-19 VACCINE (3 - Moderna risk series)] Future Scheduled 2021-10-10 COVID-19 VACCINE (1) [facility] 23:57:34 [code = COVID-19 VACCINE Hos pital (1)] Future Scheduled 2021-10-10 [facility]atitis C screening [facility] 23:57:34 (procedure) [code = Hospital [id number]] Future Scheduled 2021-10-10 INFLUENZA VACCINE [code = [facility] 23:57:34 INFLUENZA VACCINE] Hospital Future Scheduled 2021-10-10 COVID-19 VACCINE (1) [facility] 23:57:34 [code = COVID-19 VACCINE Hos pital (1)] Future Scheduled 2021-10-10 Hepatitis C screening [facility] 23:57:34 (procedure) [code = Hospital [id number]] Future Scheduled 2021-10-10 INFLUENZA VACCINE [code = [facility] 23:57:34 INFLUENZA VACCINE] Hospital Future Scheduled 2021-09-[address] [facility] 00:00:00 (12+) [code = DEPRESSION Med ical Center SCREENING (12+)] Future Scheduled 2021-05-30 INFLUENZA VACCINE (#1) [facility] 00:00:00 [code = INFLUENZA VACCINE Me dical Center (#1)] Future Scheduled 2021-05-30 INFLUENZA VACCINE (#1) [facility] 00:00:00 [code = INFLUENZA VACCINE Me dical Center (#1)] Future Scheduled 2020-09-[address] [facility] 00:00:00 (12+) [code = DEPRESSION Med ical Center SCREENING (12+)] Future Scheduled 2020-09-[address] [facility] 00:00:00 (12+) [code = DEPRESSION Med ical Center SCREENING (12+)] Future Scheduled 2016 DTAP/TDAP/TD VACCINES ([address] [facility] 00:00:00 - Tdap) [code = Medical Cent er DTAP/TDAP/TD VACCINES (1 - Tdap)] Future Scheduled 2016 DTAP/TDAP/TD VACCINES ([address] [facility] 00:00:00 - Tdap) [code = Medical Cent er DTAP/TDAP/TD VACCINES (1 - Tdap)] Future Scheduled 2016 DTAP/TDAP/TD VACCINES ([address] [facility] 00:00:00 - Tdap) [code = Medical Cent er DTAP/TDAP/TD VACCINES (1 - Tdap)] Future Scheduled [...] HEPATITIS C Medical Center SCREENING] Future Scheduled [address] [facility] 00:00:00 virus screening Medical Cent er (procedure) [code = 170894610] Future Scheduled [address] [facility] 00:00:00 virus screening Medical Cent er (procedure) [code = 175764362] Future Scheduled [address] [facility] 00:00:00 virus screening Medical Cent er (procedure) [code = 810842660] Future Scheduled [address] [facility] 00:00:00 Counseling and Screening [facility] (12+) [code = Tobacco Cessation Counseling and Screening (12+)] Future Scheduled [address] [facility] 00:00:00 Counseling and Screening [facility] (12+) [code = Tobacco Cessation Counseling and Screening (12+)] Future Scheduled 2009 COVID-19 VACCINE (1) [facility] 00:00:00 [code = COVID-19 VACCINE Med ical Center (1)] Future Scheduled 2009 COVID-19 VACCINE (1) [facility] 00:00:00 [code = COVID-19 VACCINE Med ical Center (1)] Future Scheduled [address] [facility] 00:00:00 Counseling and Screening [facility] (12+) [code = Tobacco Cessation Counseling and Screening (12+)] Future Scheduled 2007 DIABETIC EYE EXAM [code = [facility] 00:00:00 DIABETIC EYE EXAM] Medical C enter Future Scheduled 2007 Diabetic foot examination [facility] 00:00:00 (regime/therapy) [code = [facility] [id number]] Future Scheduled 2007 Urine screening for [facility] 00:00:00 protein (procedure) [code [facility] = 255135965] Future Scheduled 2007 DIABETIC EYE EXAM [code = [facility] 00:00:00 DIABETIC EYE EXAM] Medical C enter Future Scheduled 2007 Diabetic foot examination [facility] 00:00:00 (regime/therapy) [code = [facility] [id number]] Future Scheduled 2007 Urine screening for [facility] 00:00:00 protein (procedure) [code [facility] = 121908837] Future Scheduled 2007 DIABETIC EYE EXAM [code = [facility] 00:00:00 DIABETIC EYE EXAM] Medical C enter Future Scheduled 2007 Diabetic foot examination [facility] 00:00:00 (regime/therapy) [code = [facility] [id number]] Future Scheduled 2007 Urine screening for [facility] 00:00:00 protein (procedure) [code Me dical Center = 282986355] Future Scheduled 2003 PNEUMOCOCCAL VACCINE 0-[address] [facility] 00:00:00 YRS (1 - PCV) [code = Medica l Center PNEUMOCOCCAL VACCINE 0-64 YRS (1 - PCV)] Future Scheduled 2003 PNEUMOCOCCAL VACCINE 0-[address] [facility] 00:00:00 YRS (1 - PCV) [code = Medica l Center PNEUMOCOCCAL VACCINE 0-64 YRS (1 - PCV)] Future Scheduled 2003 PNEUMOCOCCAL VACCINE 0-[address] [facility] 00:00:00 YRS (1 of 4 - PCV13) Medical Center [code = PNEUMOCOCCAL VACCINE 0-64 YRS (1 of 4 - PCV13)] Future Scheduled 2003 Pneumococcal Vaccine: [facility] 00:00:00 0-64 Years (1 - PCV) Medical Center [code = Pneumococcal Vaccine: 0-64 Years (1 - PCV)] Future Scheduled 2003 PNEUMOCOCCAL VACCINE 0-[address] [facility] 00:00:00 YRS (1 of 4 - PCV13) Medical Center [code = PNEUMOCOCCAL VACCINE 0-64 YRS (1 of 4 - PCV13)] Future Scheduled 2003 Pneumococcal Vaccine: [facility] 00:00:00 0-64 Years (1 - PCV) Medical Center [code = Pneumococcal Vaccine: 0-64 Years (1 - PCV)] Future Scheduled 2003 Pneumococcal Vaccine: [facility] 00:00:00 0-64 Years (1 - PCV) Medical Center [code = Pneumococcal Vaccine: 0-64 Years (1 - PCV)] Future Scheduled 2003 PNEUMOCOCCAL VACCINE 0-[address] [facility] 00:00:00 YRS (1 - PCV) [code = Medica l Center PNEUMOCOCCAL VACCINE 0-64 YRS (1 - PCV)] Future Scheduled 1997 COVID-19 VACCINE (#1) [facility] 00:00:00 [code = COVID-19 VACCINE Med ica Center (#1)] Encounters Start End Encounter Admission Attending Care Care Encounter Source Date/Time Date/Time Type Type Clinicians Facility Department ID 2023-05-19 Inpatient ER SPRAYBERRY, [facility] [id number] [facility] 16[facility]38:23 MICHELE 2023-05-16 Inpatient ER DEVIN, [facility] [id number] [facility] 17:31:46 SHONNA 2023-05-16 Inpatient ER DEVIN, [facility] [id number] [facility] 00:00:00 [facility] 2023-05-15 Inpatient ER DEVIN, [facility] [id number] [facility] 16:12:03 [facility] 2023-05-15 Inpatient ER INIGUEZ, [facility] [id number] [facility] 07:00:50 [facility] 2023-05-15 Inpatient ER INIGUEZ, [facility] [id number] [facility] 06:44:51 [facility] 2023-05-15 Inpatient ER INIGUEZ, [facility] [id number] [facility] 02:20:59 [facility] 2023-05-15 Inpatient ER BIN, [facility] [id number] [facility] 01:56:19 [place] 2023-05-15 Inpatient ER DANA, [facility] [id number] [facility] 01:03:38 CARMINE 2023-04-30 Inpatient ER EMILY [facility] [id number] [facility] 11:21:17 MARY 2023-04-18 Outpatient JORGE ALBERTO PEREZ [facility] Surgery [id number] [facility] 16:11:34 CECIL 2021-07-27 Emergency [facility] [id number] [facility] [id number] [facility]07[facility]26 Emergency [facility] [id number] Univers 12:50:03 [facility] 2023-10-06 2023-10-06 Outpatient JULISSA HORNE [id number] [place] 10:45:00 10:45:00 MAHI omer 2023-09-17 2023-09-17 Outpatient MARVA ANGELA [facility] [id number] [facility] 00:00:00 00:00:00 BRENNEN 2023-09-12 2023-09-12 Outpatient JULISSA CAT [id number] [place] 14:45:00 14:45:00 LUPE alston 2023-08-28 2023-08-28 Outpatient JULISSA DIEZ [id number] [place] 11:15:00 11:15:00 SARAH Seybol d 2023-08-25 2023-08-25 Outpatient JULISSA ZHOU [id number] [place] 13:00:00 13:00:00 HERNANDEZ Seyb old 2023-08-16 2023-08-16 Outpatient AMBER WILLIS JULISSA COSTA [id number] [place] 00:00:00 00:00:00 Seybol d 2023-08-15 2023-08-15 Outpatient PIPPA PAK [id number] [place] 13:30:00 13:30:00 Seybol d 2023-08-15 2023-08-15 Outpatient LAB90 JULISSA COSTA [id number] [place] 11:05:00 11:05:00 Seybol d 2023-08-15 2023-08-15 Outpatient JULISSA DIEZ [id number] [place] 00:00:00 00:00:00 SARAH Seybol d 2023-08-15 2023-08-15 Outpatient JULISSA MOROCHO [id number] [place] 00:00:00 00:00:00 BOBBY Seybol d 2023-08-15 2023-08-15 Outpatient MELLISA PIPPA JULISSA COSTA [id number] [place] 00:00:00 00:00:00 Seybol d 2023-08-15 2023-08-15 Outpatient JULISSA JOHN [id number] [place] 00:00:00 00:00:00 CARMINE Seybol d 2023-08-14 2023-08-14 Outpatient MYDARLENESEYONEstelle COSTA [id number] [place] 00:00:00 00:00:00 MD ERNESTINE Seybol d 2023-08-13 2023-08-13 Outpatient JULISSA JOHN [id number] [place] 15:30:00 15:30:00 CARMINE Seybol d 2023-08-13 2023-08-13 Outpatient LAB90 JULISSA COSTA [id number] [place] 14:10:00 14:10:00 Seybol d 2023-08-13 2023-08-13 Outpatient PACEMAKER/I JULISSA COSTA [id number] [place] 08:15:00 08:15:00 CD Seybol d 2023-08-13 2023-08-13 Outpatient JULISSA FUNES [id number] [place] 00:00:00 00:00:00 AZIZA Seybol d 2023-08-13 2023-08-13 Outpatient PREJULISSA GIVENS [id number] [place] 00:00:00 00:00:00 SARAH Seybol d 2023-08-11 2023-08-11 Outpatient JULISSA FUNES [id number] [place] 00:00:00 00:00:00 AZIZA Seybol d 2023-08-08 2023-08-08 Outpatient LAB90 JULISSA COSTA [id number] [place] 14:55:00 14:55:00 Seybol d 2023-08-08 2023-08-08 Outpatient LAB90 JULISSA COSTA [id number] [place] 09:50:00 09:50:00 Seybol d 2023-08-08 2023-08-08 Outpatient JULISSA DIEZ [id number] [place] 00:00:00 00:00:00 SARAH Seybol d 2023-08-06 2023-08-06 Outpatient JULISSA ZHOU [id number] [place] 13:40:00 13:40:00 HERNANDEZ Seyb old 2023-08-06 2023-08-06 Outpatient JULISSA DIEZ [id number] [place] 00:00:00 00:00:00 SARAH Seybol d 2023-08-06 2023-08-06 Outpatient JULISSA DIEZ [id number] [place] 00:00:00 00:00:00 SARAH Seybol d 2023-08-05 2023-08-05 Outpatient JULISSA ZHOU [id number] [place] 00:00:00 00:00:00 HERNANDEZ Seyb old 2023-08-04 2023-08-04 Outpatient JULISSA FUNES [id number] [place] 00:00:00 00:00:00 AZIZA Seybol d 2023-07-30 2023-07-31 Outpatient JORGE ALBERTO CORONA, [facility] Surgery [id number] [facility] 07:10:00 13:14:00 ALI 2023-07-31 2023-07-31 Outpatient PIPPA RODRIGUEZ SLEJalen [facility] [id number] [facility] 06:08:16 06:08:16 2023-07-31 2023-07-31 Outpatient PIPPA PAK JULISSA COSTA [id number] [place] 00:00:00 00:00:00 Seybol d 2023-07-30 2023-07-30 Outpatient PIPPA RODRIGUEZ SLEJalen [facility] [id number] [facility] 12:16:47 12:16:47 2023-07-30 2023-07-30 Outpatient JULISSA SOLIMAN [id number] [place] 07:30:00 07:30:00 MORTAZAVI Seyb old 2023-07-30 2023-07-30 Outpatient CHLOEJULISSA [id number] [place] 00:00:00 00:00:00 ALI Seybol d 2023-07-29 2023-07-29 Outpatient MICHAELCHONJULISSA [id number] [place] 15:30:00 15:30:00 SARAH Seybol d 2023-07-23 2023-07-23 Outpatient DIONISIO TENA [id number] [place] 00:00:00 00:00:00 Seybol d 2023-07-23 2023-07-23 Outpatient JULISSA JOHN [id number] [place] 00:00:00 00:00:00 CARMINE Seybol d 2023-07-22 2023-07-22 Outpatient JULISSA TANNER [id number] [place] 18:00:00 18:00:00 MILINDA Seybol d 2023-07-21 2023-07-21 Outpatient JULISSA COSTA [id number] [place] 11:20:00 11:20:00 Seybol d 2023-07-21 2023-07-21 Outpatient JULISSA MERRITT [id number] [place] 11:00:00 11:00:00 AHMED Seybol d 2023-07-21 2023-07-21 Outpatient JULISSA COSTA [id number] [place] 09:45:00 09:45:00 Seybol d 2023-07-21 2023-07-21 Outpatient CHRISJULISSA [id number] [place] 00:00:00 00:00:00 DAVID Seybol d 2023-07-20 2023-07-20 Outpatient LONGJULISSA [id number] [place] 00:00:00 00:00:00 ADRYENE Seybol d 2023-07-18 2023-07-18 Outpatient LAB90 JULISSA COSTA [id number] [place] 08:50:00 08:50:00 Seybol d 2023-07-17 2023-07-17 Outpatient JULISSA FUNES [id number] [place] 00:00:00 00:00:00 AZIZA Seybol d 2023-07-17 2023-07-17 Outpatient DEJUAN COSTA [id number] [place] 00:00:00 00:00:00 MD ERNESTINE Seybol d 2023-07-17 2023-07-17 Outpatient JULISSA MERRITT [id number] [place] 00:00:00 00:00:00 AHMED Seybol d 2023-07-16 2023-07-16 Outpatient JULISSA COSTA [id number] [place] 13:00:00 13:00:00 Seybol d 2023-07-16 2023-07-16 Outpatient JULISSA MERRITT [id number] [place] 00:00:00 00:00:00 AHMED Seybol d 2023-07-14 2023-07-14 Outpatient JULISSA MERRITT [id number] [place] 00:00:00 00:00:00 AHMED Seybol d 2023-07-14 2023-07-14 Outpatient JULISSA MERRITT [id number] [place] 00:00:00 00:00:00 AHMED Seybol d 2023-07-11 2023-07-11 Outpatient JULISSA MERRITT [id number] [place] 11:15:00 11:15:00 AHMED Seybol d 2023-07-11 2023-07-11 Outpatient SHAINA JULISSA COSTA [id number] [place] 00:00:00 00:00:00 AHMED Seybol d 2023-07-09 2023-07-09 Outpatient JULISSA COSTA [id number] [place] 00:00:00 00:00:00 Seybol d 2023-07-08 2023-07-08 Outpatient RAJANJULISSA TAPIA [id number] [place] 15:15:00 15:15:00 ALI Seybol d 2023-07-08 2023-07-08 Outpatient JULISSA CORONA [id number] [place] 00:00:00 00:00:00 ALI Seybol d 2023-07-08 2023-07-08 Outpatient DEJUAN COSTA [id number] [place] 00:00:00 00:00:00 MD ERNESTINE Seybol d 2023-07-07 2023-07-07 Outpatient JULISSA FUNES [id number] [place] 00:00:00 00:00:00 AZIZA Seybol d 2023-07-04 2023-07-04 Outpatient JULISSA MELENDEZ [id number] [place] 13:00:00 13:00:00 ANTONIO Seybol d 2023-07-04 2023-07-04 Outpatient 39, HOLTER JULISSA COSTA [id number] [place] 10:00:00 10:00:00 Seybol d 2023-07-04 2023-07-04 Outpatient JULISSA COSTA [id number] [place] 09:25:00 09:25:00 Seybol d 2023-07-04 2023-07-04 Outpatient JULISSA COSTA [id number] [place] 09:20:00 09:20:00 Seybol d 2023-07-04 2023-07-04 Outpatient JULISSA COSTA [id number] [place] 09:15:00 09:15:00 Seybol d 2023-07-02 2023-07-02 Outpatient JULISSA MELENDEZ [id number] [place] 00:00:00 00:00:00 ANTONIO Seybol d 2023-06-30 2023-06-30 Outpatient LAB90 JULISSA COSTA [id number] [place] 11:35:00 11:35:00 Seybol d 2023-06-30 2023-06-30 Outpatient JULISSA FUNES [id number] [place] 11:30:00 11:30:00 AZIZA Seybol d 2023-06-30 2023-06-30 Outpatient PREJULISSA GIVENS [id number] [place] 10:45:00 10:45:00 SARAH Seybol d 2023-06-27 2023-06-27 Outpatient JULISSA FUNES [id number] [place] 00:00:00 00:00:00 AZIZA Seybol d 2023-06-27 2023-06-27 Outpatient DEJUAN COSTA [id number] [place] 00:00:00 00:00:00 MD ERNESTINE Seybol d 2023-06-26 2023-06-26 Outpatient JULISSA LUGO [id number] [place] 00:00:00 00:00:00 PITA Seybol d 2023-06-23 2023-06-23 Outpatient JULISSA FUNES [id number] [place] 00:00:00 00:00:00 AZIZA Seybol d 2023-06-20 2023-06-20 Outpatient JULISSA CAT [id number] [place] 14:45:00 14:45:00 LUPE Seybol d 2023-06-20 2023-06-20 Outpatient JULISSA CARBONE [id number] [place] 00:00:00 00:00:00 JOHANN Seybo ld 2023-06-18 2023-06-18 Outpatient JORGE ALBERTO MARTINI SLEJalen SLEH [id number] SLEH 10:12:21 10:12:21 BRENNEN 2023-06-16 2023-06-16 Outpatient JULISSA FUNES [id number] [place] 00:00:00 00:00:00 AZIZA Seybol d 2023-06-14 2023-06-14 Outpatient JULISSA JOHN [id number] [place] 00:00:00 00:00:00 CARMINE Seybol d 2023-06-13 2023-06-13 Outpatient JULISSA MERRITT [id number] [place] 00:00:00 00:00:00 AHMED Seybol d 2023-06-13 2023-06-13 Outpatient JULISSA CARBONE [id number] [place] 00:00:00 00:00:00 JOHANN Seybo ld 2023-06-12 2023-06-12 Outpatient JULISSA FUNES [id number] [place] 15:15:00 15:15:00 AZIZA Seybol d 2023-06-12 2023-06-12 Outpatient JULISSA JOHN [id number] [place] 00:00:00 00:00:00 CARMINE Seybol d 2023-06-11 2023-06-11 Outpatient LAB90 JULISSA COSTA [id number] [place] 11:15:00 11:15:00 Seybol d 2023-06-11 2023-06-11 Outpatient JULISSA JOHN [id number] [place] 10:00:00 10:00:00 CARMINE Seybol d 2023-06-11 2023-06-11 Outpatient JULISSA LUGO [id number] [place] 00:00:00 00:00:00 PITA Seybol d 2023-06-09 2023-06-09 Outpatient JULISSA CRUTIS [id number] [place] 10:30:00 10:30:00 ELENA Seybol d 2023-06-09 2023-06-09 Outpatient JULISSA CURTIS [id number] [place] 00:00:00 00:00:00 ELENA Seybol d 2023-06-09 2023-06-09 Outpatient JULISSA FUNES [id number] [place] 00:00:00 00:00:00 AZIZA Seybol d 2023-06-06 2023-06-06 Outpatient JULISSA CARBONE [id number] [place] 00:00:00 00:00:00 JOHANN Seybo ld 2023-06-05 2023-06-05 Outpatient FABIO AMARO [id number] [place] 15:50:00 15:50:00 Seybol d 2023-06-04 2023-06-04 Outpatient DIONISIO TENA JULISSA COSTA [id number] [place] 14:00:00 14:00:00 Seybol d 2023-05-30 2023-05-30 Outpatient JULISSA FUNES [id number] [place] 13:00:00 13:00:00 AZIZA Seybol d 2023-05-30 2023-05-30 Outpatient JULISSA FUNES [id number] [place] 00:00:00 00:00:00 AZIZA Seybol d 2023-05-29 2023-05-29 Outpatient JULISSA CARBONE [id number] [place] 00:00:00 00:00:00 JOHANN Seybo ld 2023-05-28 2023-05-28 Outpatient JULISSA DIEZ [id number] [place] 11:30:00 11:30:00 SARAH Seybol d 2023-05-27 2023-05-27 Outpatient JULISSA LUGO [id number] [place] 15:30:00 15:30:00 PITA Seybol d 2023-05-26 2023-05-26 Outpatient LAB90 JULISSA COSTA [id number] [place] 13:40:00 13:40:00 Seybol d 2023-05-26 2023-05-26 Outpatient BASILIO CRISTIANAMARCELINA COSTA [id number] [place] 09:30:00 09:30:00 Seybol d 2023-05-26 2023-05-26 Outpatient JULISSA FUNES [id number] [place] 00:00:00 00:00:00 AZIZA Seybol d 2023-05-26 2023-05-26 Outpatient JULISSA FUNES [id number] [place] 00:00:00 00:00:00 AZIZA Seybol d 2023-05-22 2023-05-22 Outpatient JULISSA COSTA [id number] [place] 00:00:00 00:00:00 [id number] Seybol d 2023-05-22 2023-05-22 Outpatient JULISSA FUNES [id number] [place] 00:00:00 00:00:00 AZIZA Seybol d 2023-05-22 2023-05-22 Outpatient JULISSA CARBONE [id number] [place] 00:00:00 00:00:00 JOHANN Seybo ld 2023-05-22 2023-05-22 Outpatient JULISSA JEFFRIES [id number] [place] 00:00:00 00:00:00 JORJE Seybo ld 2023-05-22 2023-05-22 Outpatient JULISSA COSTA [id number] [place] 00:00:00 00:00:00 Seybol d 2023-05-14 2023-05-21 Inpatient ER SALVADOR CULLEN [facility] Cardiology 2 [id number] [facility] 22:44:00 14:07:00 2023-05-21 2023-05-21 Outpatient JULISSA COSTA [id number] [place] 00:00:00 00:00:00 Seybol d 2023-05-20 2023-05-20 Outpatient JULISSA COSTA [id number] [place] 00:00:00 00:00:00 Seybol d 2023-05-19 2023-05-19 Outpatient JULISSA JOHN [id number] [place] 10:30:00 10:30:00 CARMINE Seybol d 2023-05-19 2023-05-19 Outpatient JULISSA JOHN [id number] [place] 00:00:00 00:00:00 CARMINE Seybol d 2023-05-18 2023-05-18 Outpatient BUENCJULISSA ARCHULETA [id number] [place] 00:00:00 00:00:00 LEAH Seybol d 2023-05-15 2023-05-15 Outpatient JULISSA COSTA [id number] [place] 00:00:00 00:00:00 Seybol d 2023-05-15 2023-05-15 Outpatient JULISSA COSTA [id number] [place] 00:00:00 00:00:00 Seybol d 2023-05-14 2023-05-14 Outpatient CLARK VARGAS [id number] [place] 00:00:00 00:00:00 Seybol d 2023-05-14 2023-05-14 Outpatient JULISSA COSTA [id number] [place] 00:00:00 00:00:00 Seybol d 2023-05-13 2023-05-13 Outpatient PROVIDER, JULISSA COSTA [id number] [place] 00:00:00 00:00:00 CAMPAIGNS Seyb old 2023-05-08 2023-05-12 Inpatient ER ALICIACLARK Internal [id number] SLE 00:45:00 16:33:00 Med 2023-05-08 2023-05-12 [facility] ER Abhinav Farrell [facility] [id number] [facility] 00:45:00 16:33:00 Encounter [facility] 2023-05-12 2023-05-12 Outpatient DIONISIO TENA [id number] [place] 10:30:00 10:30:00 Seybol d 2023-05-12 2023-05-12 Outpatient JULISSA ANTONIO [id number] [place] 00:00:00 00:00:00 MAHI omer 2023-05-10 2023-05-10 Outpatient JULISSA COSTA [id number] [place] 00:00:00 00:00:00 Seybol d 2023-05-09 2023-05-[address] [facility] [id number] 12:27:00 16:45:00 [facility] 2023-05-09 2023-05-[address] [facility] [id number] [facility] 12:41:00 16:05:00 Event Emily Cavazos [facility] 2023-05-09 2023-05-09 Outpatient ALICIA, CLARK JULISSA COSTA [id number] [place] 00:00:00 00:00:00 Seybol d 2023-05-08 2023-05-08 Outpatient 1, ANA COSTA [id number] [place] 08:00:00 08:00:00 Seybol d 2023-05-07 2023-05-07 Outpatient 1, ANA COSTA [id number] [place] 19:30:00 19:30:00 Seybol d 2023-05-07 2023-05-07 Outpatient JULISSA AMBROCIO [id number] [place] 00:00:00 00:00:00 CAMPAIGNS Seyb old 2023-05-07 2023-05-07 Outpatient JULISSA JOHN [id number] [place] 00:00:00 00:00:00 CARMINE Seybol d 2023-04-30 2023-05-06 Inpatient ER [facility]LARK [facility] Cardiology 2 [id number] SLE 09:58:00 13:50:00 2023-04-30 2023-05-06 [facility] ER Ajay Roberta [facility] [id number] [facility] 09:58:00 13:50:00 Encounter Clark Vargas [facility] 2023-05-06 2023-05-06 Outpatient JULISSA COSTA [id number] [place] 00:00:00 00:00:00 Seybol d 2023-05-05 2023-05-05 Outpatient DIONISIO TENA [id number] [place] 00:00:00 00:00:00 Seybol d 2023-05-05 2023-05-05 Outpatient JULISSA COSTA [id number] [place] 00:00:00 00:00:00 Seybol d 2023-05-02 2023-05-02 Inpatient ER EMILY, SLEJalen SLEH [id number] [facility]H 08:50:10 00:00:00 MARY 2023-05-02 2023-05-02 Outpatient EMILY, SLEH SLEH [id number] [facility] 00:00:00 00:00:00 MARY 2023-05-01 2023-05-01 Inpatient ER EMILY, SLEH SLEH [id number] [facility]H 07:04:34 00:00:00 MARY 2023-05-01 2023-05-01 Outpatient BYRON NASCIMENTO [id number] [place] 00:00:00 00:00:00 Seybol d 2023-05-01 2023-05-01 [facility] [id number] 00:00:00 00:00:00 [facility] 2023-04-29 2023-04-29 Outpatient JULISSA COSTA [id number] [place] 00:00:00 00:00:00 Seybol d 2023-04-28 2023-04-28 Outpatient JULISSA FNUES [id number] [place] 00:00:00 00:00:00 AZIZA Seybol d 2023-04-24 2023-04-24 Outpatient LAB90 JULISSA COSTA [id number] [place] 10:15:00 10:15:00 Seybol d 2023-04-24 2023-04-24 Outpatient JULISSA CONNELL [id number] [place] 00:00:00 00:00:00 CIELO Seybol d 2023-04-22 2023-04-22 Outpatient JULISSA JOHN [id number] [place] 00:00:00 00:00:00 CARMINE Seybol d 2023-04-21 2023-04-21 Outpatient JULISSA FUNES [id number] [place] 00:00:00 00:00:00 AZIZA Seybol d 2023-04-18 2023-04-18 Outpatient JULISSA JOHN [id number] [place] 00:00:00 00:00:00 CARMINE Seybol d 2023-04-18 2023-04-18 Outpatient JULISSA COSTA [id number] [place] 00:00:00 00:00:00 Seybol d 2023-04-16 2023-04-16 [facility] [id number] [facility] 00:00:00 00:00:00 ion Johann Arguelles [facility] 2023-04-15 2023-04-15 Outpatient JULISSA JOHN [id number] [place] 09:00:00 09:00:00 CARMINE Seybol d 2023-04-14 2023-04-14 Outpatient JULISSA CARBONE [id number] [place] 00:00:00 00:00:00 JOHANN Medleyybo ld 2023-04-14 2023-04-14 Outpatient JULISSA FUNES [id number] [place] 00:00:00 00:00:00 AZIZA Seybol d 2023-04-11 2023-04-11 Outpatient DADIONISIO HOROWITZ JULISSA COSTA [id number] [place] 00:00:00 00:00:00 Seybol d 2023-04-11 2023-04-11 Outpatient BURTL JULISSA COSTA [id number] [place] 00:00:00 00:00:00 CARMINE Seybol d 2023-04-10 2023-04-10 Outpatient DAJOSSELINE HOROWITZBROOK COSTA [id number] [place] 11:00:00 11:00:00 Seybol d 2023-04-07 2023-04-07 Outpatient CARBONEJULISSA [id number] [place] 00:00:00 00:00:00 JOHANN Seybo ld 2023-04-07 2023-04-07 Outpatient JULISSA FUNES [id number] [place] 00:00:00 00:00:00 AZIZA Seybol d 2023-04-03 2023-04-03 Outpatient JULISSA ROLON [id number] [place] 00:00:00 00:00:00 TRIANDA Seybol d 2023-04-03 2023-04-03 Outpatient BURTEstelleJULISSA [id number] [place] 00:00:00 00:00:00 CARMINE Seybol d 2023-03-30 2023-03-30 Outpatient 1, ANA COSTA [id number] [place] 19:30:00 19:30:00 Seybol d 2023-03-27 2023-03-27 Outpatient BRANDTJULISSA ELIZABETH [id number] [place] 10:30:00 10:30:00 [place] Seybol d 2023-03-25 2023-03-25 Outpatient FARJULISSA AMBRIZ [id number] [place] 00:00:00 00:00:00 BASHAR Seybol d 2023-03-24 2023-03-24 Outpatient JULISSA FUNES [id number] [place] 00:00:00 00:00:00 AZIZA Seybol d 2023-03-21 2023-03-21 Outpatient BRANDT, JULISSA COSTA [id number] [place] 11:30:00 11:30:00 [place] Seybol d 2023-03-21 2023-03-21 Outpatient JULISSA FUNES [id number] [place] 00:00:00 00:00:00 AZIZA Seybol d 2023-03-20 2023-03-20 Outpatient ANA Carias JULISSA COSTA [id number] [place] 08:00:00 08:00:00 Seybol d 2023-03-20 2023-03-20 Outpatient DADIONISIO HOROWITZ JULISSA COSTA [id number] [place] 00:00:00 00:00:00 Seybol d 2023-03-20 2023-03-20 Outpatient DADIONISIO HOROWITZ JULISSA COSTA [id number] [place] 00:00:00 00:00:00 Seybol d 2023-03-19 2023-03-19 Outpatient ANA Carias JULISSA COSTA [id number] [place] 19:30:00 19:30:00 Seybol d 2023-03-19 2023-03-19 Outpatient ANISHJULISSAVEE JULISSA COSTA [id number] [place] 00:00:00 00:00:00 MD ERNESTINE Seybol d 2023-03-18 2023-03-[address] [facility] [id number] [facility] 00:00:00 00:00:00 uriel Arguelles [facility] 2023-03-17 2023-03-17 Outpatient JULISSA ORELLANA [id number] [place] 16:00:00 16:00:00 OSITO Seybol d 2023-03-17 2023-03-17 Outpatient JULISSA FUNES [id number] [place] 10:45:00 10:45:00 AZIZA Seybol d 2023-03-17 2023-03-17 Outpatient JULISSA CARBONE [id number] [place] 00:00:00 00:00:00 JOHANN Sullivano ld 2023-03-17 2023-03-17 Outpatient JULISSA FUNES [id number] [place] 00:00:00 00:00:00 AZIZA Seybol d 2023-03-13 2023-03-13 Outpatient BOUBACAR OCBIAN [id number] [place] 00:00:00 00:00:00 Seybol d 2023-03-11 2023-03-11 Outpatient HUNDL JULISSA COSTA [id number] [place] 10:00:00 10:00:00 CARMINE Seybol d 2023-03-11 2023-03-11 Outpatient JULISSA COSTA [id number] [place] 00:00:00 00:00:00 Seybol d 2023-03-11 2023-03-11 Outpatient MYKELSEYONL JULISSA COSTA [id number] [place] 00:00:00 00:00:00 MD ERNESTINE Seybol d 2023-03-11 2023-03-11 Outpatient LUGO, JULISSA COSTA [id number] [place] 00:00:00 00:00:00 PITA Seybol d 2023-03-11 2023-03-11 Outpatient JULISSA JOHN [id number] [place] 00:00:00 00:00:00 CARMINE Seybol d 2023-03-10 2023-03-10 Outpatient DIONISIO TENA [id number] [place] 16:30:00 16:30:00 Seybol d 2023-03-07 2023-03-07 Outpatient REYNAJULISSA ELLIS [id number] [place] 00:00:00 00:00:00 OSITO Seybol d 2023-03-06 2023-03-06 Outpatient JULISSA FUNES [id number] [place] 00:00:00 00:00:00 AZIZA Seybol d 2023-03-04 2023-03-04 Outpatient CLARK VARGAS [id number] [place] 00:00:00 00:00:00 Seybol d 2023-03-03 2023-03-03 Outpatient PROVIDERJULISSA [id number] [place] 00:00:00 00:00:00 CAMPAIGNS Seyb old 2023-03-03 2023-03-03 Outpatient JULISSA FUNES [id number] [place] 00:00:00 00:00:00 AZIZA Seybol d 2023-03-03 2023-03-03 Outpatient REYNAJULISSA ELLIS [id number] [place] 00:00:00 00:00:00 OSITO Seybol d 2023-02-26 2023-02-28 [facility] Cardiology [id number] SLE 19:58:00 13:58:00 2023-02-26 2023-02-28 [facility] ER Alice Acevedo [facility] [id number] [facility] 19:58:00 13:58:00 Encounter Clark Vargas [facility] 2023-02-28 2023-02-28 Outpatient JULISSA ORELLANA [id number] [place] 00:00:00 00:00:00 OSITO Seybol d 2023-02-28 2023-02-28 Outpatient JULISSA ORELLANA [id number] [place] 00:00:00 00:00:00 OSITO Seybol d 2023-02-28 2023-02-28 Outpatient DEJUAN COSTA [id number] [place] 00:00:00 00:00:00 MD ERNESTINE Seybol d 2023-02-27 2023-02-27 Outpatient JULISSA CARLTON [id number] [place] 14:30:00 14:30:00 [place] Seybol d 2023-02-27 2023-02-27 [facility] [id number] 00:00:00 00:00:00 Only [facility] 2023-02-26 2023-02-26 Outpatient JULISSA PEREZ [id number] [place] 00:00:00 00:00:00 TYRONE Seybol d 2023-02-26 2023-02-26 Travel [facility] [id number] [facility] 00:00:00 00:00:00 [facility] 2023-02-23 2023-02-23 Outpatient JULISSA BEDOLLA [id number] [place] 00:00:00 00:00:00 BRENTLY Seybol d 2023-02-19 2023-02-19 Outpatient DEJUAN COSTA [id number] [place] 00:00:00 00:00:00 MD ERNESTINE Seybol d 2023-02-18 2023-02-18 Outpatient 3, ES JULISSA COSTA [id number] [place] 19:30:00 19:30:00 Seybol d 2023-02-18 2023-02-18 Outpatient JULISSA CORONA [id number] [place] 10:15:00 10:15:00 ALI Seybol d 2023-02-18 2023-02-18 Outpatient ANISHJULISSACARMELEstelle COSTA [id number] [place] 00:00:00 00:00:00 MD ERNESTINE Seybol d 2023-02-18 2023-02-18 Outpatient JULISSA COSTA [id number] [place] 00:00:00 00:00:00 Seybol d 2023-02-18 2023-02-18 Outpatient JULISSA ROLON [id number] [place] 00:00:00 00:00:00 TRIANDA Seybol d 2023-02-17 2023-02-17 Outpatient JULISSA FUNES [id number] [place] 00:00:00 00:00:00 AZIZA Seybol d 2023-02-17 2023-02-17 Outpatient JULISSA ROLON [id number] [place] 00:00:00 00:00:00 TRIANDA Seybol d 2023-02-14 2023-02-14 Outpatient JULISSA FUNES [id number] [place] 15:00:00 15:00:00 AZIZA Seybol d 2023-02-14 2023-02-14 Outpatient JULISSA FUNES [id number] [place] 00:00:00 00:00:00 AZIZA Seybol d 2023-02-14 2023-02-14 Outpatient REYNAJULISSA ELLIS [id number] [place] 00:00:00 00:00:00 OSITO Seybol d 2023-02-14 2023-02-14 Outpatient JULISSA FUNES [id number] [place] 00:00:00 00:00:00 AZIZA Seybol d 2023-02-13 2023-02-13 Outpatient JULISSA FUNES [id number] [place] 00:00:00 00:00:00 AZIZA Seybol d 2023-02-13 2023-02-13 Outpatient WAGLEJULISSA [id number] [place] 00:00:00 00:00:00 AZIZA Seybol d 2023-02-12 2023-02-12 Outpatient BURTLJULISSA [id number] [place] 08:00:00 08:00:00 CARMINE Seybol d 2023-02-11 2023-02-11 Outpatient WAGLEJULISSA [id number] [place] 00:00:00 00:00:00 AZIZA Seybol d 2023-02-11 2023-02-11 Outpatient HUNDLJULISSA [id number] [place] 00:00:00 00:00:00 CARMINE Seybol d 2023-02-11 2023-02-11 Outpatient YANCYJULISSA HEWITT [id number] [place] 00:00:00 00:00:00 NOE Seybol d 2023-02-10 2023-02-10 Outpatient PROVIDERJULISSA [id number] [place] 00:00:00 00:00:00 CAMPAIGNS Seyb old 2023-02-10 2023-02-10 Outpatient JULISSA FUNSE [id number] [place] 00:00:00 00:00:00 AZIZA Seybol d 2023-02-10 2023-02-10 Outpatient JULISSA COSTA [id number] [place] 00:00:00 00:00:00 Seybol d 2023-02-10 2023-02-10 Outpatient JULISSA JOHN [id number] [place] 00:00:00 00:00:00 CARMINE Seybol d 2023-02-10 2023-02-10 Outpatient MYKELSEYONL JULISSA COSTA [id number] [place] 00:00:00 00:00:00 MD ERNESTINE Seybol d 2023-02-10 2023-02-10 Outpatient JULISSA FUNES [id number] [place] 00:00:00 00:00:00 AZIZA Seybol d 2023-02-10 2023-02-10 Outpatient DEVONTE-JULISSA CARLIN [id number] [place] 00:00:00 00:00:00 DARIANA Seybol d 2023-02-08 2023-02-08 Outpatient APOLINARJULISSA [id number] [place] 00:00:00 00:00:00 SHIV Seybol d 2023-02-08 2023-02-08 Outpatient DORAJULISSA [id number] [place] 00:00:00 00:00:00 CARMINE Seybol d 2023-02-07 2023-02-07 Surgery Esteban, [facility] [id number] 19:25:00 21:35:00 [facility] 2023-02-01 2023-02-07 Inpatient ER [facility] Cardiology [id number] [facility] 10:08:00 20:09:00 NOE 2023-02-01 2023-02-07 Hospital ER Burton, James E [facility] [id number] 10:08:00 20:09:00 Encounter Clark Vargas [facility] 2023-02-07 2023-02-07 Outpatient JULISSA ORELLANA [id number] [place] 00:00:00 00:00:00 OSITO Seybol d 2023-02-07 2023-02-07 Outpatient JULISSA ORELLANA [id number] Julsisa 00:00:00 00:00:00 OSITO Seybol d 2023-02-07 2023-02-07 Outpatient JULISSA ACEVEDO [id number] [place] 00:00:00 00:00:00 STEEVEN Seybol d 2023-02-07 2023-02-07 Outpatient JULISSA ORELLANA [id number] [place] 00:00:00 00:00:00 JADA Seybol d 2023-02-04 2023-02-04 Outpatient JULISSA ORELLANA [id number] [place] 00:00:00 00:00:00 OSITO Seybol d 2023-02-04 2023-02-04 Outpatient JULISSA HAINES [id number] [place] 00:00:00 00:00:00 NOE Seybol d 2023-02-04 2023-02-04 Telephone ARIA Laguerre [id number] [facility] 00:00:00 00:00:00 [facility] [id number] ity of [facility] [id number] [phone] [facility] [address] 2023-02-03 2023-02-03 Outpatient JULISSA FUNES [id number] [place] 00:00:00 00:00:00 AZIZA alston 2023-02-01 2023-02-01 Travel [facility] [id number] [facility] 00:00:00 00:00:00 [facility] 2023-01-31 2023-01-31 Outpatient JULISSA HORNE [id number] [place] 13:15:00 13:15:00 MAHI omer 2023-01-31 2023-01-31 Outpatient JULISSA FUNES [id number] [place] 13:00:00 13:00:00 AZIZA alston 2023-01-31 2023-01-31 Outpatient JULISSA FUNES [id number] [place] 00:00:00 00:00:00 AZIZA alston 2023-01-30 2023-01-30 Outpatient JULISSA JEFFRIES [id number] [place] 00:00:00 00:00:00 JORJE omer 2023-01-28 2023-01-28 Outpatient JUILSSA SOTO [id number] [place] 13:15:00 13:15:00 ROGER Sullivano negra 2023-01-28 2023-01-28 Outpatient JULISSA AMBROCIO [id number] [place] 00:00:00 00:00:00 AFFILIATE Nate shaikh 2023-01-28 2023-01-28 Orders Doctor ACEVEDO [id number] Univers 00:00:00 00:00:00 Only Unassigned, BIENVENIDO [id number] ity of [place] [facility] [id number] French as [phone] [facility] [address] 2023-01-27 2023-01-27 Emergency ER [facility] Emergency [id number] [facility] 14:08:00 18:46:00 TATIANNA PALMER 2023-01-27 2023-01-27 Emergency ER [facility] [id number] 14:08:00 18:46:00 [facility] 2023-01-27 2023-01-27 Outpatient JULISSA JOHN [id number] [place] 00:00:00 00:00:00 CARMINE Seybol d 2023-01-27 2023-01-27 [facility] [id number] [facility] 00:[facility] 00:00:00 [facility] 2023-01-24 2023-01-24 Outpatient ALBERTOAYLIN COSTA [id number] [place] 08:15:00 08:15:00 ELSY HUERTA 2023-01-23 2023-01-23 Emergency ER [facility] Emergency [id number] [facility] 15:04:00 20:04:00 2023-01-23 2023-01-[address] [facility] [id number] [facility] 15:04[facility]00 20:04:00 [facility] 2023-01-23 2023-01-23 Outpatient JULISSA HORNE [id number] [place] 00:00:00 00:00:00 MAHI omer 2023-01-23 2023-01-23 Outpatient JULISSA JOHN [id number] [place] 00:00:00 00:00:00 CARMINE Seybol d 2023-01-23 2023-01-23 Outpatient JULISSA HORNE [id number] [place] 00:00:00 00:00:00 MAHI omer 2023-01-23 2023-01-23 Outpatient JULISSA COSTA [id number] [place] 00:00:00 00:00:00 Seybol d 2023-01-23 2023-01-23 [facility] [id number] 00:[facility] 00[facility]:00 [facility] 2023-01-22 2023-01-22 Outpatient ALEJANDROHRDat JULISSA COSTA [id number] [place] 11:30:00 11:30:00 ELSY HUERTA 2023-01-22 2023-01-22 Outpatient 41, CORNELIO JULISSA COSTA [id number] [place] 11:15:00 11:15:00 Seybol d 2023-01-20 2023-01-21 Inpatient EM Amrik HCAPM TELE [id number] [facility] 15:58:[facility] 14:47:00 Oladipo 31 [facility] 2023-01-20 2023-01-20 Outpatient Amrik HCACL LABO [id number] [facility] 23:31:00 23:31:00 Oladipo 56 [facility] 2023-01-20 2023-01-20 Outpatient JULISSA JOHN [id number] [place] 00:00:00 00:00:00 CARMINE Seybol d 2023-01-20 2023-01-20 Outpatient VALDOITEA JULISSA COSTA [id number] [place] 00:00:00 00:00:00 ELSY HUERTA 2023-01-16 2023-01-16 Outpatient VALDOITEDat JULISSA COSTA [id number] [place] 00:00:00 00:00:00 ELSY HUERTA 2023-01-16 2023-01-16 Documentat Adolfo, [facility] [id number] [facility] [address] 00:[facility]00 00:00:00 ion Yeni Margarita [facility] 2023-01-16 2023-01-16 Tele[address] Adolfo, [facility] [id number] [facility] [address] 00:00:00 00:00:00 Yeni Margarita [facility] 2023-01-15 2023-01-15 Outpatient JULISSA COSTA [id number] [place] 00:00:00 00:00:00 Seybol d 2023-01-15 2023-01-15 Outpatient JULISSA JOHN [id number] [place] 00:00:00 00:00:00 CARMINE Seybol d 2023-01-14 2023-01-14 Outpatient MYKELSEYONL JULISSA COSTA [id number] [place] 00:00:00 00:00:00 MD ERNESTINE Seybol d 2023-01-10 2023-01-10 Outpatient DORA, JULISSA COSTA [id number] [place] 13:00:00 13:00:00 CARMINE Seybol d 2023-01-02 2023-01-02 Outpatient BURTL, JULISSA COSTA [id number] [place] 00:00:00 00:00:00 CARMINE Seybol d 2022-12-23 2022-12-23 Outpatient HUNDL, JULISSA COSTA [id number] [place] 00:00:00 00:00:00 CARMINE Seybol d 2022-12-20 2022-12-20 Outpatient DORA, JULISSA COSTA [id number] [place] 00:00:00 00:00:00 CARMINE Seybol d 2022-12-10 2022-12-10 Outpatient INFUSION, JULISSA COSTA [id number] [place] 10:30:00 10:30:00 MC Seybol d 2022-12-06 2022-12-06 Outpatient KARPINOS, JULISSA COSTA [id number] [place] 10:45:00 10:45:00 LETY Seybo ld 2022-12-03 2022-12-03 Outpatient JULISSA RINALDI [id number] [place] 00:00:00 00:00:00 KRISTIAN Seybol d 2022-11-29 2022-11-29 Outpatient JULISSA JOHN [id number] [place] 15:00:00 15:00:00 CARMINE Seybol d 2022-11-29 2022-11-29 Outpatient OC GERMANING JULISSA COSTA [id number] [place] 00:00:00 00:00:00 Seybol d 2022-11-28 2022-11-28 Outpatient JULISSA JOHN [id number] [place] 00:00:00 00:00:00 CARMINE Seybol d 2022-11-26 2022-11-26 Outpatient INFUSION, JULISSA COSTA [id number] [place] 10:30:00 10:30:00 MC Seybol d 2022-11-19 2022-11-19 Outpatient MANTJULISSA ENGLE [id number] [place] 00:00:00 00:00:00 KRISTIAN Seybol d 2022-11-15 2022-11-15 Outpatient HUNDLJULISSA [id number] [place] 13:30:00 13:30:00 CARMINE Seybol d 2022-11-15 2022-11-15 Outpatient MAXI, EGING JULISSA COSTA [id number] [place] 00:00:00 00:00:00 Seybol d 2022-11-14 2022-11-14 Outpatient TRED47 JULISSA COSTA [id number] [place] 14:00:00 14:00:00 Seybol d 2022-11-14 2022-11-14 Outpatient JULISSA COSTA [id number] [place] 13:00:00 13:00:00 Seybol d 2022-11-12 2022-11-12 Outpatient INFUSION, JULISSA COSTA [id number] [place] 13:30:00 13:30:00 MC Seybol d 2022-11-05 2022-11-05 Outpatient MANTEZRADIJULISSA [id number] [place] 00:00:00 00:00:00 KRISTIAN Seybol d 2022-11-04 2022-11-04 Outpatient PUTHENPURAY JULISSA COSTA [id number] [place] 00:00:00 00:00:00 [place], BLESSEN Se ybold 2022-11-01 2022-11-01 Outpatient LAURAJULISSA [id number] [place] 13:00:00 13:00:00 TIRSO Seybol d 2022-10-30 2022-10-30 Outpatient MOHAMEDJULISSA [id number] [place] 11:00:00 11:00:00 WESAM Seybol d 2022-10-24 2022-10-24 Outpatient LAB39 JULISSA COSTA [id number] [place] 16:15:00 16:15:00 Seybol d 2022-10-24 2022-10-24 Outpatient BRANDTJULISSA [id number] Jul[place] 15:30:00 15:30:00 [place] Seybol d 2022-10-24 2022-10-24 Outpatient KADEN YANEZ JULISSA COSTA [id number] [place] 15:15:00 15:15:00 Seybol d 2022-10-24 2022-10-24 Outpatient JULISSA JOHN JULISSA [id number] [place] 00:00:00 00:00:00 CARMINE Seybol d 2022-10-24 2022-10-24 Outpatient JULISSA COSTA [id number] [place] 00:00:00 00:00:00 Seybol d 2022-10-22 2022-10-22 Outpatient JULISSA COSTA [id number] [place] 00:00:00 00:00:00 Seybol d 2022-10-22 2022-10-22 Outpatient PUTRAMONALALITHAJagdish JULISSA COSTA [id number] [place] 00:00:00 00:00:00 [place] BLESSEN Se ybold 2022-10-22 2022-10-22 Outpatient DORA JULISSA COSTA [id number] [place] 00:00:00 00:00:00 CARMINE Seybol d 2022-10-21 2022-10-21 Outpatient PUTHENPURAY JULISSA COSTA [id number] [place] 14:20:00 14:20:00 [place] DONAVONEN Se ybold 2022-10-21 2022-10-21 Outpatient DORA JULISSA COSTA [id number] [place] 00:00:00 00:00:00 CARMINE Seybol d 2022-10-18 2022-10-18 Outpatient DORA JULISSA COSTA [id number] [place] 15:30:00 15:30:00 CARMINE Seybol d 2022-10-16 2022-10-16 Outpatient JULISSA COSTA [id number] Jul[place] 13:00:00 13:00:00 Seybol d 2022-10-16 2022-10-16 Outpatient TRED47 JULISSA COSTA [id number] [place] 09:45:00 09:45:00 Seybol d 2022-10-16 2022-10-16 Outpatient LAB90 JULISSA COSTA [id number] [place] 09:15:00 09:15:00 Seybol d 2022-10-16 2022-10-16 Outpatient DORA JULISSA COSTA [id number] [place] 00:00:00 00:00:00 CARMINE Seybol d 2022-10-16 2022-10-16 Outpatient AMINA JULISSA COSTA [id number] [place] 00:00:00 00:00:00 EVETTE Seybo ld 2022-10-15 2022-10-15 Outpatient BRITTNEY JULISSA COSTA [id number] [place] 13:00:00 13:00:00 PITA Seybol d 2022-10-14 2022-10-14 Outpatient DORA JULISSA COSTA [id number] [place] 00:00:00 00:00:00 CARMINE Seybol d 2022-10-10 2022-10-10 Outpatient FITZ JULISSA COSTA [id number] [place] 14:45:00 14:45:00 KATIE Seybol d 2022-10-10 2022-10-10 Outpatient LAB90 JULISSA COSTA [id number] [place] 07:55:00 07:55:00 Seybol d 2022-10-10 2022-10-10 Outpatient JULISSA COSTA [id number] [place] 00:00:00 00:00:00 Seybol d 2022-10-08 2022-10-08 Outpatient RUBEN JULISSA COSTA [id number] [place] 09:45:00 09:45:00 EVELINE Seybol d 2022-10-08 2022-10-08 Outpatient LAB90 JULISSA COSTA [id number] [place] 08:45:00 08:45:00 Seybol d 2022-10-08 2022-10-08 Outpatient DORA JULISSA COSTA [id number] [place] 08:00:00 08:00:00 CARMINE Seybol d 2022-10-08 2022-10-08 Outpatient JULISSA COSTA [id number] [place] 00:00:00 00:00:00 Seybol d 2022-10-08 2022-10-08 Outpatient DORA, JULISSA COSTA [id number] [place] 00:00:00 00:00:00 CARMINE Seybol d 2022-10-072022-10-07 Outpatient TRED76 JULISSA COSTA [id number] [place] 14:45:00 14:45:00 Seybol d 2022-10-07 2022-10-07 Outpatient COLEEN JULISSA COSTA [id number] [place] 14:30:00 14:30:00 MAHI Seybo ld 2022-10-07 2022-10-07 Outpatient SERGEY JULISSA COSTA [id number] [place] 09:15:00 09:15:00 LETY Seybo ld 2022-10-07 2022-10-07 Outpatient RUBENJULISSA [id number] [place] 08:00:00 08:00:00 EVELINE Seybol d 2022-10-07 2022-10-07 Outpatient AMINA JULISSA COSTA [id number] [place] 00:00:00 00:00:00 EVETTE Seybo ld 2022-10-07 2022-10-07 Outpatient JULISSA COSTA [id number] [place] 00:00:00 00:00:00 Seybol d 2022-10-04 2022-10-04 Outpatient GEETHA JULISSA COSTA [id number] [place] 15:15:00 15:15:00 OC Seybol d 2022-08-30 2022-08-30 Patient Sharmaine Galeano 1.2.840.114 [id number] [facility] 00:00:00 00:00:00 Outreach E JAVIER 350.1.13.10 i [place] [id number] [facility] jeanette [address] 2022-08-23 2022-08-27 [facility]1 [id number] Methodi 19:52:00 17:11:00 Encounter Yon Garcia 52287.1.1 611 Emile Mai 3.430.2.7 Hospita Jeremi Mata .3.473221 l Alf Trent .8 Eveline García 2022-08-23 2022-08-27 [facility] 1.2.840.1 [id number] Methodi 19:52:00 17:11:00 Encounter Yon Garcia 58542.1.[address] Emile Lizama C. 3.430.2.7 Hospita Jeremi Mata Anai .3.709972 l Alf Trent .8 Eveline García 2022-08-23 2022-08-23 Travel 1.2.840.1 1.2.607.957 1423 [id number] Methodi 00:00:00 00:00:[address] 3.430.2.7 0.2.7.3.698 Ho spita .3.517306 084.8 l .8 2022-08-23 2022-08-23 Travel 1.2.840.1 1.2.678.062 5738 [id number] Methodi 00:00:00 00:00:[address] 3.430.2.7 0.2.7.3.698 Ho spita .3.303732 084.8 l .8 2022-08-21 2022-08-21 Patient Ivan Valerie 1.2.840.1 [id number] Methodi 00:00:00 00:00:[address] 3.430.2.7 Hospit a .3.704055 l .8 2022-08-21 2022-08-21 Patient Sharmaine Galeano HUMERA 1.2.840.114 [id number] [facility] 00:00:00 00:00:00 Outreach E HERRERA 350.1.13.10 i [place] [id number] [facility] [address] 2022-08-21 2022-08-21 Patient IvanAlyssa plazada 1.2.840.1 [id number] Methodi 00:00:00 00:00:[address] 3.430.2.7 Hospit a .3.625501 l .8 2022-08-15 2022-08-20 [facility] 1.2.840.1 [id number] Methodi 18:57:00 14:56:00 Encounter Demetria Lopez 44208.1.1 9 67 [facility] 3.430.2.7 [facility] .3.980974 l .8 2022-08-15 2022-08-20 [facility] 1.2.840.1 [id number] 1043 [id number] Methodi 18:57:00 14:56:00 Encounter Demetria Lopez 21373.1.1 9 67 [facility] 3.430.2.7 [facility] .3.241514 l .8 2022-08-15 2022-08-15 Travel 1.2.840.1 1.2.217.410 9108 [id number] Methodi 00:00:00 00:00:[address] 3.430.2.7 0.2.7.3.698 Ho spita .3.113437 084.8 l .8 2022-08-14 2022-08-14 Transition HUMERA Ivey 1.2.840.114 [id number] Univers 00:00:00 00:00:00 of Care Jaz HERRERA 350.1.13.10 ity of [place] 4.2.7.2.686 Jake lacy [id number] [address] 2022-08-08 2022-08-13 Inpatient X [facility] [id number] Univers 19:11:00 18:18:00 AGAPITO MENDOZA of [facility] 2022-08-08 2022-08-13 [facility] Elizabeth Reyes 1.2.840. 114 [id number] Univers 19:11:00 18:18:00 Encounter Mj Bush 350.1.1 3.10 ity of [facility] 4.2.7.2.686 Agapito Ferrer [id number] [place] [address] [address] 2022-08-13 2022-08-13 Telephone Carmen [facility] 1.2.840.114 [id number] Univers 00:00:00 00:00:00 Formerly [facility] 350.1.13.10 i [facility] 4.2.7.2.686 [place] [id number] [address] 2022-08-07 2022-08-07 Emergency Cardona, 1.2.840.1 [id number] [id number] Methodi 15:02:00 17:31:[address] Rosales 3.430.2.7 Hospit a .3.355243 l .8 2022-08-07 2022-08-07 Travel 1.2.840.1 1.2.307.250 2507 [id number] Methodi 00:00:00 00:00:[address] 3.430.2.7 0.2.7.3.698 Ho spita .3.462231 084.8 l .8 2022-07-20 2022-07-20 Emergency X [facility] ERT [id number] Univers 20:01:00 21:29:00 BECKI desai [facility] 2022-07-20 2022-07-20 Emergency [facility] 1.2.840.114 [id number] Univers 20:01:00 21:29:00 Becki STEEN 350.1.13.10 [facility] 4.2.7.2.686 [place] [facility] [phone] [address] 2021-04-09 2021-04-[address] [facility] [id number] [facility] [address] 00:00[facility]00 00:00:00 ion Linda Manzanares [facility] 2021-04-09 2021-04-[address] [facility] [id number] 00:00:00 00:00:00 Linda Manzanares [facility] 2021-04-08 2021-04-[address] [facility] [id number] [facility] 15:00:00 18:06:00 [facility] 2021-04-08 2021-04-08 Emergency ER SL Emergency [id number] [facility] 14:59:00 14:59:00 2021-04-05 2021-04-06 Emergency Scotty Reddy 1.2.840.1 [id number] [id number] Methodi 15:09:00 19:25:00 Dale Kumar 18901.1.[address] [place], Teresa 3.430.2.7 H ospita Reg Tom Valdez Ne .3.72168 4 l .8 2020-12-19 2020-12-19 Patient Micheal [facility] 1.2.840.[id number] [place] [address] 00:00:00 00:00:00 Outreach Servando PRIMARY 350.1.13.10 i ty of [facility] [place].2.7.2.686 [place] MELISSAON [id number] [place] dicca [address] 2020-08-12 2020-08-13 Emergency ANTONIO, [facility] 064 [id number] 29 [place] 00:00:00 00:00:00 GAGAN Garrido Method i st 2020-05-23 2020-05-23 Transition Humera Ivey 1.2.840.114 [id number] 00:00:00 00:00:00 of Care Jaz Herrera 350.1.13.10 [place] 4.2.7.2.686 [id number] [facility] 2020-05-23 2020-05-23 Transition Humera Ivey 1.2.840.114 [id number] [facility] 00:00:00 00:00:00 of Care Jaz Herrera 350.1.13.10 ity of [place].2.[place] [id number] [place] [address] Branch 2020-05-18 2020-05-22 [facility] Janae Still 1.2.840.1 14 [id number] 18:04:00 18:17:00 Encounter [place] [facility].1.13. 10 [facility] 4.2.7.2. 686 LilianaEloina [id number] Reuben Wan 096 2020-05-18 2020-05-22 [facility] Janae Still 1.2.840.1 14 [id number] [facility] 18:04:00 18:17:00 Encounter [place] 350.1.13. 10 ity [facility] 4.2.7.2. 686 [place] LilianaKarlosaure [id number] [facility] Reuben Wan [address] [place] [address] 2020-05-16 2020-05-17 Emergency [facility] 1.2.840.114 [id number] 19:53:00 00:13:00 Arvind Steen 350.1.13.10 [place] 4.2.7.2.686 [place] [id number] 4 2020-05-16 2020-05-17 Emergency [facility] 1.2.840.114 [id number] [facility] 19:53:00 00:13:00 Arvind Steen 350.1.13.10 ity of [place] 4.2.7.2.686 [facility] [id number] [facility] [address] 2019-12-10 2020-01-16 Inpatient HCAWU CATALINA [id number] [facility] 18:44:00 14:35:19 57 [facility] 2020-01-01 2020-01-02 Emergency JEFFREY DOBBS [facility] 064 [id number] 67774 [place] 00:00:00 00:00:[address] 2019-12-11 2019-12-12 Emergency nullFlavo [facility] 65320 17384 Memoria 23:56:51 00:49:00 r Vaughn Carson [facility] 2019-12-11 2019-12-12 Emergency nullFlavo [facility] 08622 66040 Memoria 23:56:51 00:49:00 charles Carson [facility] 2019-12-11 2019-12-[id number] [id number] 18:56:51 19:49:00 02 2019-12-11 2019-12-11 Outpatient [address] Coon [address]30 [id number] 18:56:51 19:49:00 Q 2019-12-11 2019-12-11 Emergency E COON, CURTIS MHBL MHBL 7502 MHBL 18:56:00 19:49:00 2019-12-11 2019-12-11 Outpatient Nette, HCAWU SURG [id number] [facility] 16:00:00 16:00:00 Leoncio 51 [facility] 2019-12-07 2019-12-07 Emergency RONALY, [facility] 064 [id number] 68 [place] 00:00:00 00:00:00 BJ [address] 2019-12-03 2019-12-05 Inpatient MCCARTAN, [facility] 064 [id number] 5674 [place] 00:00:00 00:00:[address] MANGO [address] 2019-12-02 2019-12-03 Emergency nullFlavo [facility] 71250 45270 Memoria 23:01:45 02:45:[address] 2019-12-02 2019-12-03 Emergency nullFlavo [facility] 67742 92351 Memoria 23:01:45 02:45:[address] 2019-12-02 2019-12-[id number] 17:01:45 20:45:00 Q 2019-12-02 2019-12-02 Outpatient Coon, Curtis PL PL 4730 [id number] 17:01:45 20:45:00 Q 2019-12-02 2019-12-02 Emergency E COON, CURTIS BL MHBL 7501 MHBL 17:01:00 20:45:00 2019-12-02 2019-12-02 Emergency , [facility] 1.2.688.653 1767 0325 14:36:25 16:41:00 Tom Steen 350.1.13.10 [place] 4.2.7.2.686 [place] [id number] [facility] 2019-12-02 2019-12-02 Emergency , [facility] 1.2.224.502 [id number] 0325 Univers 14:36:25 16:41:00 Tom Steen 350.1.13.10 i ty of [place] 4.2.7.2.686 [facility] [id number] [place] [address] [place] 2019-12-02 2019-12-02 Orders Doctor CURTIS 1.2.840.114 [id number] 00:00:00 00:00:00 Only Unassigned, BIENVENIDO 350.1.13.10 [place] [facility] 4.2.7.2.686 [id number] 009 2019-12-02 2019-12-02 Orders Doctor CURTIS 1.2.840.114 [id number] Univers 00:00:00 00:00:00 Only Unassigned, BIENVENIDO 350.1.13.10 [facility] 4.2.7.2.686 French as [id number] [facility] 009 [place] 2019-11-30 2019-12-01 Emergency nullFlavo [facility] 56417 [id number] Memoria 22:59:56 02:15:00 r [place] 00 [facility] 2019-11-30 2019-12-01 Emergency nullFlavo [facility] 79062 32950 Memoria 22:59:56 02:15:[address] 2019-11-30 2019-11-30 Outpatient [place], MHPL MHPL 4730 [id number] 16:59:56 20:15:00 Jose Muse 00 2019-11-30 2019-11-30 Outpatient [place], MHPL MHPL 4730 [id number] 16:59:56 20:15:00 Jose Muse 00 2019-11-30 2019-11-30 Emergency E ANA PAULA, MHBL MHBL 7500 MHBL 16:59:00 20:15:00 JOSE 2019-11-22 2019-11-22 Telephone GERARDO Morales 1.2.534.159 [id number] 00:00:00 00:00:00 Sami Steen 350.1.13.10 [place] 4.2.7.2.686 Professio [id number] [address] 2019-11-22 2019-11-22 Telephone Carmen NVTIFFANIE 1.2.006.927 [id number] 2571 Univers 00:00:00 00:00:00 Shijay Steen 350.1.13.10 i ty of [place] Profess[place] [id number] Me dical [address] 2019-09-19 2019-09-19 Emergency X STILL, [facility] ERT [id number] Univers 09:26:17 12:12:00 JANAE desai [facility] 2019-09-17 2019-09-18 Outpatient LIZETTE YANEZ [facility] [id number] 9180 [place] 00:00:00 00:00:00 226 Method i 2019-09-16 2019-09-16 Emergency X QUINN III, [facility] ERT [id number] [id number] Univers 18:07:57 18:42:00 BRENTDAVID desai [facility] 2019-07-13 2019-07-13 Outpatient ERGUN, [facility] 932 [id number] 087 [place] 00:00:00 00:00:00 GUPENNY 664 Method i 2019-06-22 2019-06-22 Outpatient LIZETTE YANEZ [facility] [id number] 1827 [place] 00:00:00 00:00:00 576 Method i 2019-04-27 2019-04-27 Orders Doctor CURTIS Matthews2.840.114 [id number] 00:00:00 00:00:00 Only Unassigned, BIENVENIDO 350.1.13.10 [place] [facility] 4.2.7.2.686 [id number] 009 2019-04-27 2019-04-27 Orders Doctor CURTIS Matthews2.840.114 [id number] Univers 00:00:00 00:00:00 Only Unassigned, BIENVENIDO 350.1.13.10 ity of [place] [facility] 4.2.7.2.686 French as [phone] [facility] 009 [place] 2017-01-03 2017-01-04 Day nullFlavo [facility] [id number] Memoria 12:22:00 04:59:00 Surgery r Vaughn 02 l [facility] 2017-01-03 2017-01-04 Day [facility] [id number] Memoria 12:22:00 04:59:00 Surgery r [place] 02 l [facility] 2017-01-03 2017-01-03 Outpatient Jenn CÉSAR [facility] [id number] 07:22:00 23:59:00 Curtis Carson 2017-01-03 2017-01-03 Outpatient Jenn CÉSAR [facility] [id number] [id number] 07:22:00 23:59:00 Curtis Alston 2016-12-12 2016-12-13 Day nullFlavo [facility] [id number] Memoria 11:06:00 04:59:00 Surgery r [place] 01 l [facility] 2016-12-12 2016-12-13 Day nullFlavo [facility] [id number] 475 Memoria 11:06:00 04:59:00 Surgery r [place] 01 l [facility] 2016-12-12 2016-12-12 Outpatient Minoobrook [facility] 4045 [id number] 06:06:00 23:59:00 Curtis Alston 2016-12-12 2016-12-12 Outpatient Jenn [facility] 4045 [id number] 06:06:00 23:59:00 Curtis Alston 2016-09-19 2016-09-19 Emergency nullFlavo [facility] 69835 93081 Memoria 19:38:00 21:37:00 r Vaughn 00 [facility] 2016-09-19 2016-09-19 Emergency nullFlavo [facility] 67878 04234 Memoria 19:38:00 21:37:00 r [place] 00 [facility] 2016-09-19 2016-09-19 Outpatient Melchor, [facility] [id number] 13:38:00 15:37:00 Nnaemeka 00 Gene 2016-09-19 2016-09-19 Outpatient Melchor, [facility] [id number] 13:38:00 15:37:00 Nnaemeka 00 Gene 2013-08-17 2013-08-18 Outpatient 2.16.840. 2.16.840.1. 4 [id number] Memoria 19:54:00 01:16:00 1.654906. 420333.3.61 l 3.615.0.1 5.0.100 Jalil n 00 Hospita l 2013-08-17 2013-08-18 Outpatient 2.16.840. 2.16.840.1. 4 [id number] Memoria 19:54:00 01:16:00 1.568364. 239654.3.61 l 3.615.0.1 5.0.100 Jalil n 00 Hospita l 2013-08-17 2013-08-18 Emergency nullFlavo [facility] 83223 69229 Memoria 19:45:00 01:16:00 r Medical 67 l [facility] 2013-08-17 2013-08-18 Emergency nullFlavo [facility] 22946 39121 Memoria 19:45:00 01:16:00 r Medical 67 l [facility] 2013-08-17 2013-08-17 AA nullFlavo [facility] [id number] 793 Memoria 19:45:00 19:45:00 r Medical 70 l [facility] 2013-08-17 2013-08-17 AA nullFlavo [facility] [id number] 793 Memoria 19:45:00 19:45:00 r Medical 70 l [facility] 2011-10-11 2011-10-11 Outpatient nullFlavo [facility] 4538 [id number] Memoria 09:10:00 09:10:00 r Medical 00 l [facility] 2011-10-11 2011-10-11 Outpatient nullFlavo [facility] 4538 [id number] Memoria 09:10:00 09:10:00 r Medical 00 [facility] Results Test Description Test Time Test Comments Results Result Sour e Comments XR CHEST 1 VIEW 2023-07-31 PORTABLE / BEDSIDE 11:37:[address] [facility] CENTERName: SYDNI HARRIS : 1995 Sex: M XR CHEST 1 VIEW PORTABLE / BEDSIDEINDICATION: s/p AICD; rule out PTXCOMPARISON: Prior day's examTECHNIQUE: Portable frontal view(s) of the chest. FINDINGS: Support Lines and Devices: Stable. A dual-lead right subclavian approachAICD pacemaker projects in good position. Lungs and pleura: Unchanged airspace and pleural opacities. Nopneumothorax identified.Heart and mediastinum: Stable contours. Stable surgical changes.Additional findings: Thoracolumbar fusion hardware is partially imaged.IMPRESSION:No acute cardiopulmonary abnormality. Electronically Signed By: Joseph Lara09/30/2022 11:39 CDTWorkstation Name: [id number] POCT-GLUCOSE METER 2023-07-31 11:05:33 Test Item Value Reference Range Interpretation Comme nts POC-GLUCOSE METER (BEAKER) 91 mg/dL 70-110 : TESTED AT [facility] [address] [facility] (test code = 1538) [facility] X, [address]: [employer]sembler [employer]/Techni nolan ID = [id number] for AJAY MENDEZ POCT-GLUCOSE [id number] 06:34:37 Test Item Value Reference Range Interpretation Comments POC-GLUCOSE METER 103 mg/dL 70-110 : TESTED A T [facility] 6720 (BEAKER) (test code = [facility]DA [facility], 1538) [address]: As[employer]er [employer]/Techni nolan ID = [id number] for UG EFRAIN CARMELINA BUN AND CREATININE [id number] 06:28:46 Test Item Value Reference Range Interpretation Comments BLOOD UREA 13 mg/dL 7-21 NITROGEN (BEAKER) (test code = 354) CREATININE 0.83 mg/dL 0.57-1.25 Specimen slight ly (BEAKER) (test hemolyzed code = 358) BUN/CREAT RATIO 16 For a normal individual on (BEAKER) (test a normal diet , the code = reference inter lilliana for the [id number]) mass ratio rang es between 12:1 and 20:1 ( BUN in mg/dL/creatinin e in mg/dL) EGFR (BEAKER) 125 Interpretatio n of eGFR (test code = mL/min/1.73 values Stage De scription 1092) sq m Result G1 Margaret l or high >=90 G2 Mildly decreased 60-89 G3a Mildl y to moderately 45-5 9 G3b Moderately to s everely 30-44 G4 Severl y decreased 15-29 G5 Kidney failure <15Reported eGF R is based on the CKD-EPI 2020 equation that d oes not use a race coefficientEsti mated GFR is not as accur ate as Creatinine Yojana mau in predicting glom erular filtration rate . Estimated GFR is not appl icable for dialysis patien ts [employer] ID - ADMINHEMOGLOBIN AND [id number] 05:45:22 Test Item Value Reference Range Interpretation Comments HEMOGLOBIN (BEAKER) (test code = 12.0 GM/DL 13.7-17.5 L 410) HEMATOCRIT (BEAKER) (test code = 38.2 % 40.1-51.0 L 411) [employer] ID - [id number]-GLUCOSE [id number] 22:05:18 Test Item Value Reference Range Interpretation Comments POC-GLUCOSE METER 95 mg/dL 70-110 : Verify w / Lab Draw: (BEAKER) (test code = TESTED AT [facility] 6720 1538) [facility], [address]: Assembler [employer]/Techni nolan ID = [id number] for CIARANTHU CARMELINA TRUONG XR CHEST 1 VIEW PORTABLE / [id number] 13:10:43 [facility] CASEY : 1995 Sex: MExam: XR CHEST 1 VIEW PORTABLE / BEDSIDEDate: 07/30/2023 1:10 PMIndication:s/p AICD; rule out PTXComparison: Chest radiograph 05/19/2023.IMPRESSION:Lines/Tubes:Right chest wall ICD is noted.Lungs and Pleura :The lungs are well inflated. No focal consolidation orpulmonary edema. No pleural effusions. No pneum othorax.Heart/Mediastinum:The cardiomediastinal silhouette is normal in size andcontour.Bones/Soft Tissues: No acute osseous abnormality. Postoperative changesnoted in the spine.Upper abdomen: Unremarkable.Electronically Signed By: Ko Del Angel07/30/2023 13:12 CDTWorkstation Name: [id number] METER 2023-07-30 12:33:05 Test Item Value Reference Range Interpretation Comments POC-GLUCOSE METER 87 mg/dL 70-110 : TESTED A T [facility] ([facility] (test code = ALDA [facility], 1538) [id number]: [employer]/Techni nolan ID = [id number] for STEFFANIE REZA POCT-GLUCOSE [id number] 09:02:50 Test Item Value Reference Range Interpretation Comments POC-GLUCOSE METER 88 mg/dL 70-110 : TESTED A T [facility] ([facility]) (test code = [facility], 1538) [id number]: [employer]/Techni nolan ID = [id number] for RONNY WOLFE HEMOGLOBIN [id number] 13:16:35 Test Item Value Reference Range Interpretation Comments HEMOGLOBIN A1C 4.9 % See_Comment [Automated m essage] ELECTROPHORESIS ([facility]) The system which (test code = 3811) generated this result transmitted ref erence range: <=5.6%. The reference range was not used to int erpret this result as normal/abnormal . "The A1c is measured using a [facility]-certified method. HbA1c value equal to or greater than 6.5% as thediagnosis cutoff for diabetes. An HbA1c value of 5.7- 6.4% indicates increased risk for diabetes (prediabetes)."[employer] ID - ADMOperator ID - ADMTSH/FREE T4 IF [id number] 12:45:08 Test Item Value Reference Range Interpretation Comments THYROID STIMULATING HORMONE 0.705 uIU/mL 0.350-4.940 ([employer]) (test code = 772) [employer] ID - EMB-TYPE NATRIURETIC FACTOR (BNP)2023-06-18 12:28:28 Test Item Value Reference Range Interpretation Comments B-TYPE NATRIURETIC PEPTIDE (AKER) < pg/mL 0-100 (test code = 700) [employer] ID - [id number] 12:25:04 Test Item Value Reference Range Interpretation Comments PREALBUMIN ([facility]) (test code = 29 mg/dL 14-45 586) [employer] ID - EMHEPATIC FUNCTION [id number] 12:21:31 Test Item Value Reference Range Interpretation Comments TOTAL PROTEIN (AKER) (test code = 7.7 gm/dL 6.0-8.3 770) ALBUMIN (BEAKER) (test code = 1145) 4.5 g/dL 3.5-5.0 BILIRUBIN TOTAL (BEAKER) (test code 0.6 mg/dL 0.2-1.2 = 377) BILIRUBIN DIRECT (BEAKER) (test 0.3 mg/dL 0.1-0.5 code = 706) ALKALINE PHOSPHATASE (BEAKER) (test 130 U/L 40-150 code = 346) AST (SGOT) (BEAKER) (test code = 38 U/L 5-34 H 353) ALT (SGPT) (BEAKER) (test code = 56 U/L 6-55 H 347) [employer] ID - EMLIPID [id number] 12:21:26 Test Item Value Reference Range Interpretation Comments TRIGLYCERIDES (BEAKER) (test code = 108 mg/dL 540) CHOLESTEROL (BEAKER) (test code = 137 mg/dL 631) HDL CHOLESTEROL (BEAKER) (test code 48 mg/dL = 976) LDL CHOLESTEROL CALCULATED (BEAKER) 67 mg/dL (test code = 633) Triglyceride Reference Range: Low Risk <150 Borderline 150-199 High Risk 200-499 Very High Risk >=500Cholesterol Reference Range: Low Risk <200 Borderline 200-239 High Risk >240HDL Cholesterol Reference Range: Low Risk >=60 High Risk <40LDL Cholesterol Reference Range: Optimal <100 Near Optimal 100-129 Borderline 130-159 High 160-189 Very High >=190 Assembler [employer] ID - EMBASIC METABOLIC [id number] 12:21:25 Test Item Value Reference Range Interpretation Comments SODIUM (BEAKER) 140 meq/L 136-145 (test code = 381) POTASSIUM 4.0 meq/L 3.5-5.1 (BEAKER) (test code = 379) CHLORIDE (BEAKER) 105 meq/L 98-107 (test code = 382) CO2 (BEAKER) 26 meq/L 22-29 (test code = 355) BLOOD UREA 9 mg/dL 7-21 NITROGEN (BEAKER) (test code = 354) CREATININE 0.90 mg/dL 0.57-1.25 (BEAKER) (test code = 358) GLUCOSE RANDOM 85 mg/dL 70-105 (BEAKER) (test code = 652) CALCIUM (BEAKER) 9.9 mg/dL 8.4-10.2 (test code = 697) EGFR (BEAKER) 122 Interpretatio n of eGFR (test code = mL/min/1.73 values Stage De scription 1092) sq m Result G1 Margaret l or high >=90 G2 Mildly decreased 60-89 G3a Mildl y to moderately 45-5 9 G3b Moderately to s everely 30-44 G4 Severl y decreased 15-29 G5 Kidney failure <15Reported eGF R is based on the CKD-EPI 2020 equation that d oes not use a race coefficientEsti mated GFR is not as accur ate as Creatinine Yojana mau in predicting glom erular filtration rate . Estimated GFR is not appl icable for dialysis patien ts Assembler [employer] ID - [id number] 12:21:25 Test Item Value Reference Range Interpretation Comments MAGNESIUM (BEAKER) (test code = 2.0 mg/dL 1.6-2.6 627) Assembler [employer] ID - EMURIC [id number] 12:21:25 Test Item Value Reference Range Interpretation Comments URIC ACID (BEAKER) (test code = 6.5 mg/dL 2.6-7.2 773) Assembler [employer] ID - EMCBC W/PLT COUNT & AUTO [id number] 11:55:18 Test Item Value Reference Range Interpretation Comments WHITE BLOOD CELL COUNT (BEAKER) 6.4 K/ L 3.5-10.5 (test code = 775) RED BLOOD CELL COUNT (BEAKER) 4.92 M/ L 4.63-6.08 (test code = 761) HEMOGLOBIN (BEAKER) (test code = 13.0 GM/DL 13.7-17.5 L 410) HEMATOCRIT (BEAKER) (test code = 40.0 % 40.1-51.0 L 411) MEAN CORPUSCULAR VOLUME (BEAKER) 81 fL 79-92 (test code = 753) MEAN CORPUSCULAR HEMOGLOBIN 26.4 pg 25.7-32.2 (BEAKER) (test code = 751) MEAN CORPUSCULAR HEMOGLOBIN CONC 32.5 GM/DL 32.3-36.5 (BEAKER) (test code = 752) RED CELL DISTRIBUTION WIDTH 12.5 % 11.6-14.4 (BEAKER) (test code = 412) PLATELET COUNT (BEAKER) (test 315 K/CU MM 150-450 code = 756) MEAN PLATELET VOLUME (BEAKER) 9.0 fL 9.4-12.4 L (test code = 754) NUCLEATED RED BLOOD CELLS 0 /100 WBC 0-0 (BEAKER) (test code = 413) NEUTROPHILS RELATIVE PERCENT 65 % (BEAKER) (test code = 429) LYMPHOCYTES RELATIVE PERCENT 27 % (BEAKER) (test code = 430) MONOCYTES RELATIVE PERCENT 5 % (BEAKER) (test code = 431) EOSINOPHILS RELATIVE PERCENT 1 % (BEAKER) (test code = 432) BASOPHILS RELATIVE PERCENT 1 % (BEAKER) (test code = 437) NEUTROPHILS ABSOLUTE COUNT 4.15 K/ L 1.78-5.38 (BEAKER) (test code = 670) LYMPHOCYTES ABSOLUTE COUNT 1.72 K/ L 1.32-3.57 (BEAKER) (test code = 414) MONOCYTES ABSOLUTE COUNT (BEAKER) 0.34 K/ L 0.30-0.82 (test code = 415) EOSINOPHILS ABSOLUTE COUNT 0.08 K/ L 0.04-0.54 (BEAKER) (test code = 416) BASOPHILS ABSOLUTE COUNT (BEAKER) 0.05 K/ L 0.01-0.08 (test code = 417) IMMATURE GRANULOCYTES-RELATIVE 0.30 % 0.00-1.00 PERCENT (BEAKER) (test code = 2801) POCT-GLUCOSE [id number] 11:07:25 Test Item Value Reference Range Interpretation Comments POC-GLUCOSE METER 98 mg/dL 70-110 : TESTED A T [facility] 6[address] (BEAKER) (test code = [facility], 1538) [place] [address]: Assembler [employer]/Techni nolan ID = [id number] for T u-Gordy, Aquilito POCT-GLUCOSE [id number] 10:01:29 Test Item Value Reference Range Interpretation Comments POC-GLUCOSE METER 111 mg/dL 70-110 H : TESTED A T [facility] 76[address] (BEAKER) (test code [facility], = 1538) [place] [address]: Assembler [employer]/Techni nolan ID = [id number] for F Silke gutiérrez POCT-GLUCOSE [id number] 06:04:57 Test Item Value Reference Range Interpretation Comments POC-GLUCOSE METER 90 mg/dL 70-110 : TESTED A T [facility] [address] (BEAKER) (test code = [facility] [facility], 1538) [facility] [address] 384: Assembler [employer]/Techni nolan ID = [id number] for Silke Huerta CALCIUM, [id number] 04:41:42 Test Item Value Reference Range Interpretation Comments CALCIUM IONIZED (BEAKER) (test 1.11 mmol/L 1.12-1.27 L code = 698) PH, BLOOD (BEAKER) (test code = 7.49 1810) BASIC METABOLIC [id number] 04:30:58 Test Item Value Reference Range Interpretation Comments SODIUM (BEAKER) 140 meq/L 135-148 (test code = 381) POTASSIUM 3.3 meq/L 3.5-5.5 L (BEAKER) (test code = 379) CHLORIDE (BEAKER) 96 meq/L 98-106 L (test code = 382) CO2 (BEAKER) 33 meq/L 20-31 H (test code = 355) BLOOD UREA 17 mg/dL 10-26 NITROGEN (BEAKER) (test code = 354) CREATININE 0.85 mg/dL 0.50-1.20 (BEAKER) (test code = 358) GLUCOSE RANDOM 100 mg/dL 70-110 (BEAKER) (test code = 652) CALCIUM (BEAKER) 9.4 mg/dL 8.5-10.5 (test code = 697) EGFR (BEAKER) 124 Interpretatio n of eGFR (test code = mL/min/1.73 values Stage De scription 1092) sq m Result G1 Margaret l or high >=90 G2 Mildly decreased 60-89 G3a Mildl y to moderately 45-5 9 G3b Moderately to s everely 30-44 G4 Severl y decreased 15-29 G5 Kidney failure <15Reported eGF R is based on the CKD-EPI 2020 equation that d oes not use a race coefficientEsti mated GFR is not as accur ate as Creatinine Yojana mau in predicting glom erular filtration rate . Estimated GFR is not appl icable for dialysis patien ts Assembler [employer] ID - [id number] 04:30:20 Test Item Value Reference Range Interpretation Comments MAGNESIUM (BEAKER) (test code = 2.1 mg/dL 1.5-3.0 627) Assembler [employer] ID - [id number] W/PLT COUNT & AUTO [id number] 04:00:03 Test Item Value Reference Range Interpretation Comments WHITE BLOOD CELL COUNT (BEAKER) 7.4 K/ L 4.0-10.0 (test code = 775) RED BLOOD CELL COUNT (BEAKER) 4.19 M/ L 4.20-5.80 L (test code = 761) HEMOGLOBIN (BEAKER) (test code = 11.6 GM/DL 13.0-16.8 L 410) HEMATOCRIT (BEAKER) (test code = 36.0 % 36.0-50.0 411) MEAN CORPUSCULAR VOLUME (BEAKER) 86 fL 82-99 (test code = 753) MEAN CORPUSCULAR HEMOGLOBIN 27.7 pg 27.0-33.0 (BEAKER) (test code = 751) MEAN CORPUSCULAR HEMOGLOBIN CONC 32.2 GM/DL 32.0-36.0 (BEAKER) (test code = 752) RED CELL DISTRIBUTION WIDTH 13.7 % 12.0-15.0 (BEAKER) (test code = 412) PLATELET COUNT (BEAKER) (test 263 K/CU MM 150-430 code = 756) MEAN PLATELET VOLUME (BEAKER) 8.7 fL 6.0-11.5 (test code = 754) NUCLEATED RED BLOOD CELLS 0 /100 WBC 0-0 (BEAKER) (test code = 413) NEUTROPHILS RELATIVE PERCENT 45 % (BEAKER) (test code = 429) LYMPHOCYTES RELATIVE PERCENT 43 % (BEAKER) (test code = 430) MONOCYTES RELATIVE PERCENT 7 % (BEAKER) (test code = 431) EOSINOPHILS RELATIVE PERCENT 2 % (BEAKER) (test code = 432) BASOPHILS RELATIVE PERCENT 1 % (BEAKER) (test code = 437) NEUTROPHILS ABSOLUTE COUNT 3.32 K/ L 1.80-8.00 (BEAKER) (test code = 670) LYMPHOCYTES ABSOLUTE COUNT 3.19 K/ L 1.48-4.50 (BEAKER) (test code = 414) MONOCYTES ABSOLUTE COUNT (BEAKER) 0.52 K/ L 0.00-1.30 (test code = 415) EOSINOPHILS ABSOLUTE COUNT 0.17 K/ L 0.00-0.50 (BEAKER) (test code = 416) BASOPHILS ABSOLUTE COUNT (BEAKER) 0.07 K/ L 0.00-0.20 (test code = 417) IMMATURE GRANULOCYTES-RELATIVE 1.60 % 0.00-0.00 H PERCENT (BEAKER) (test code = 2801) POCT-GLUCOSE [id number] 17:16:44 Test Item Value Reference Range Interpretation Comments POC-GLUCOSE METER 81 mg/dL 70-110 : TESTED A T [facility] [address] (BEAKER) (test code = [facility], 153) [place] [address]: Assembler [employer]/Techni nolan ID = [id number] for G aspar, Deede POCT-GLUCOSE [id number] 12:30:44 Test Item Value Reference Range Interpretation Comments POC-GLUCOSE METER 84 mg/dL 70-110 : TESTED A T [facility] 18268 (BEAKER) (test code = [facility], 1537) [place] [address]: Assembler [employer]/Techni nolan ID = [id number] for G aspar, Deede BLOOD [id number] 09:44:12 Test Item Value Reference Range Interpretation Comments CULTURE (BEAKER) (test No growth in 5 days code = 1095) BLOOD [id number] 09:44:01 Test Item Value Reference Range Interpretation Comments CULTURE (BEAKER) (test No growth in 5 days code = 1095) POCT-GLUCOSE [id number] 05:59:57 Test Item Value Reference Range Interpretation Comments POC-GLUCOSE METER 88 mg/dL 70-110 : TESTED A T [facility] 8[address] (BEAKER) (test code = [facility], 1537) [place] [address]: Assembler [employer]/Techni nolan ID = [id number] for F uentesSilke BASIC METABOLIC [id number] 05:54:27 Test Item Value Reference Range Interpretation Comments SODIUM (BEAKER) 141 meq/L 135-148 (test code = 381) POTASSIUM 3.5 meq/L 3.5-5.5 (BEAKER) (test code = 379) CHLORIDE (BEAKER) 103 meq/L 98-106 (test code = 382) CO2 (BEAKER) 28 meq/L 20-31 (test code = 355) BLOOD UREA 15 mg/dL 10-26 NITROGEN (BEAKER) (test code = 354) CREATININE 0.81 mg/dL 0.50-1.20 (BEAKER) (test code = 358) GLUCOSE RANDOM 96 mg/dL 70-110 (BEAKER) (test code = 652) CALCIUM (BEAKER) 9.1 mg/dL 8.5-10.5 (test code = 697) EGFR (BEAKER) 125 Interpretatio n of eGFR (test code = mL/min/1.73 values Stage De scription 1092) sq m Result G1 Margaret l or high >=90 G2 Mildly decreased 60-89 G3a Mildl y to moderately 45-5 9 G3b Moderately to s everely 30-44 G4 Severl y decreased 15-29 G5 Kidney failure <15Reported eGF R is based on the CKD-EPI 2020 equation that d oes not use a race coefficientEsti mated GFR is not as accur ate as Creatinine Yojana mau in predicting glom erular filtration rate . Estimated GFR is not appl icable for dialysis patien ts Assembler [employer] ID - [id number] W/PLT COUNT & AUTO [id number] 05:44:29 Test Item Value Reference Range Interpretation Comments WHITE BLOOD CELL COUNT (BEAKER) 6.5 K/ L 4.0-10.0 (test code = 775) RED BLOOD CELL COUNT (BEAKER) 3.73 M/ L 4.20-5.80 L (test code = 761) HEMOGLOBIN (BEAKER) (test code = 10.5 GM/DL 13.0-16.8 L 410) HEMATOCRIT (BEAKER) (test code = 31.6 % 36.0-50.0 L 411) MEAN CORPUSCULAR VOLUME (BEAKER) 85 fL 82-99 (test code = 753) MEAN CORPUSCULAR HEMOGLOBIN 28.2 pg 27.0-33.0 (BEAKER) (test code = 751) MEAN CORPUSCULAR HEMOGLOBIN CONC 33.2 GM/DL 32.0-36.0 (BEAKER) (test code = 752) RED CELL DISTRIBUTION WIDTH 14.0 % 12.0-15.0 (BEAKER) (test code = 412) PLATELET COUNT (BEAKER) (test 262 K/CU MM 150-430 code = 756) MEAN PLATELET VOLUME (BEAKER) 8.7 fL 6.0-11.5 (test code = 754) NUCLEATED RED BLOOD CELLS 0 /100 WBC 0-0 (BEAKER) (test code = 413) NEUTROPHILS RELATIVE PERCENT 39 % (BEAKER) (test code = 429) LYMPHOCYTES RELATIVE PERCENT 50 % (BEAKER) (test code = 430) MONOCYTES RELATIVE PERCENT 7 % (BEAKER) (test code = 431) EOSINOPHILS RELATIVE PERCENT 2 % (BEAKER) (test code = 432) BASOPHILS RELATIVE PERCENT 1 % (BEAKER) (test code = 437) NEUTROPHILS ABSOLUTE COUNT 2.54 K/ L 1.80-8.00 (BEAKER) (test code = 670) LYMPHOCYTES ABSOLUTE COUNT 3.22 K/ L 1.48-4.50 (BEAKER) (test code = 414) MONOCYTES ABSOLUTE COUNT (BEAKER) 0.47 K/ L 0.00-1.30 (test code = 415) EOSINOPHILS ABSOLUTE COUNT 0.10 K/ L 0.00-0.50 (BEAKER) (test code = 416) BASOPHILS ABSOLUTE COUNT (BEAKER) 0.04 K/ L 0.00-0.20 (test code = 417) IMMATURE GRANULOCYTES-RELATIVE 1.80 % 0.00-0.00 H PERCENT (BEAKER) (test code = 2801) CALCIUM, [id number] 05:28:54 Test Item Value Reference Range Interpretation Comments CALCIUM IONIZED (BEAKER) (test 1.16 mmol/L 1.12-1.27 code = 698) PH, BLOOD (BEAKER) (test code = 7.43 1810) POCT-GLUCOSE [id number] 20:39:37 Test Item Value Reference Range Interpretation Comments POC-GLUCOSE METER 103 mg/dL 70-110 : [place] [address] (BEAKER) (test code [facility], = 1538) [place] [address]: Assembler [employer]/Techni nolan ID = [id number] for Silke Huerta URINALYSIS W/ REFLEX URINE [id number] 19:26:04 Test Item Value Reference Range Interpretation Comments COLOR (BEAKER) (test code = 470) Colorless CLARITY (BEAKER) (test code = 469) Clear SPECIFIC GRAVITY UA (BEAKER) (test 1.005 1.001-1.035 code = 468) PH UA (BEAKER) (test code = 467) 7.0 5.0-8.0 PROTEIN UA (BEAKER) (test code = Negative Negative 464) GLUCOSE UA (BEAKER) (test code = Negative Negative 365) KETONES UA (BEAKER) (test code = Negative Negative 371) BILIRUBIN UA (BEAKER) (test code = Negative Negative 462) BLOOD UA (BEAKER) (test code = 461) Negative Negative NITRITE UA (BEAKER) (test code = Negative Negative 465) LEUKOCYTE ESTERASE UA (BEAKER) Negative Negative (test code = 466) UROBILINOGEN UA (BEAKER) (test code < = 463) RBC UA (BEAKER) (test code = 519) 0 /HPF WBC UA (BEAKER) (test code = 520) 1 /HPF MUCUS (BEAKER) (test code = 1574) Rare SOURCE(BEAKER) (test code = 2795) As[employer]er [employer] ID - [auto]Assembler [employer] ID - [auto]XR CHEST 1 VIEW PORTABLE / BEDSIDE 2023-05-19 19:21:05 [facility] 1995 Sex: MTECHNIQUE: Frontal view of the chest.INDICATION: sob.COMPARISON: 05/15/2023.FINDINGS:LINES/TUBES: None.HEART AND MEDIASTINUM: Cardiomediastinal contour is stable. LUNGS: Mild bibasilar atelectatic change. No consolidation or pulmonaryedema.PLEURA: Suspected small bilateral pleural effusions. No pneumothorax.SOFT TISSUES AND BONES: Incompletely included thoracolumbar spinalfixation hardware, as before.IMPRESSION:1. Mild bibasilar atelectatic changes suspected small bilateral pleuraleffusions. No pulmonaryedema.Electronically Signed By: Moises Hill/ 19:23 CDTWorkstation Name: [id number] METER 2023-05-19 15:53:07 Test Item Value Reference Range Interpretation Comments POC-GLUCOSE METER 96 mg/dL 70-110 : TESTED A T [facility] [address]32[address] (BEAKER) (test code = [facility], 1538) [place] [address]: Assembler [employer]/Techni nolan ID = [id number] for T u-Gordy, Aquilito POCT-GLUCOSE [id number] 12:29:14 Test Item Value Reference Range Interpretation Comments POC-GLUCOSE METER 98 mg/dL 70-110 : TESTED A T [facility] 17535 (BEAKER) (test code = [facility], 1538) [place] [address]: Assembler [employer]/Techni nolan ID = [id number] for T u-Gordy, Aquilito POCT-GLUCOSE [id number] 11:03:10 Test Item Value Reference Range Interpretation Comments POC-GLUCOSE METER 62 mg/dL 70-110 L : TESTED A T [facility] 34704 (BEAKER) (test code = [facility] [address] [facility], 1538) [place] [address]: Assembler [employer]/Techni nolan ID = [id number] for T u-Gordy, Aquilito BASIC METABOLIC [id number] 05:23:35 Test Item Value Reference Range Interpretation Comments SODIUM (BEAKER) 140 meq/L 135-148 (test code = 381) POTASSIUM 4.0 meq/L 3.5-5.5 Specimen slight ly (BEAKER) (test hemolyzed code = 379) CHLORIDE (BEAKER) 105 meq/L 98-106 (test code = 382) CO2 (BEAKER) 25 meq/L 20-31 (test code = 355) BLOOD UREA 16 mg/dL 10-26 NITROGEN (BEAKER) (test code = 354) CREATININE 0.83 mg/dL 0.50-1.20 Specimen slight ly (BEAKER) (test hemolyzed code = 358) GLUCOSE RANDOM 126 mg/dL 70-110 H (BEAKER) (test code = 652) CALCIUM (BEAKER) 8.9 mg/dL 8.5-10.5 (test code = 697) EGFR (BEAKER) 125 Interpretatio n of eGFR (test code = mL/min/1.73 values Stage De scription 1092) sq m Result G1 Margaret l or high >=90 G2 Mildly decreased 60-89 G3a Mildl y to moderately 45-5 9 G3b Moderately to s everely 30-44 G4 Severl y decreased 15-29 G5 Kidney failure <15Reported eGF R is based on the CKD-EPI 2020 equation that d oes not use a race coefficientEsti mated GFR is not as accur ate as Creatinine Yojana mau in predicting glom erular filtration rate . Estimated GFR is not appl icable for dialysis patien ts Assembler [employer] ID - [id number] W/PLT COUNT & AUTO [id number] 04:54:41 Test Item Value Reference Range Interpretation Comments WHITE BLOOD CELL COUNT (BEAKER) 6.5 K/ L 4.0-10.0 (test code = 775) RED BLOOD CELL COUNT (BEAKER) 3.87 M/ L 4.20-5.80 L (test code = 761) HEMOGLOBIN (BEAKER) (test code = 11.0 GM/DL 13.0-16.8 L 410) HEMATOCRIT (BEAKER) (test code = 32.5 % 36.0-50.0 L 411) MEAN CORPUSCULAR VOLUME (BEAKER) 84 fL 82-99 (test code = 753) MEAN CORPUSCULAR HEMOGLOBIN 28.4 pg 27.0-33.0 (BEAKER) (test code = 751) MEAN CORPUSCULAR HEMOGLOBIN CONC 33.8 GM/DL 32.0-36.0 (BEAKER) (test code = 752) RED CELL DISTRIBUTION WIDTH 13.4 % 12.0-15.0 (BEAKER) (test code = 412) PLATELET COUNT (BEAKER) (test 283 K/CU MM 150-430 code = 756) MEAN PLATELET VOLUME (BEAKER) 9.0 fL 6.0-11.5 (test code = 754) NUCLEATED RED BLOOD CELLS 0 /100 WBC 0-0 (BEAKER) (test code = 413) NEUTROPHILS RELATIVE PERCENT 60 % (BEAKER) (test code = 429) LYMPHOCYTES RELATIVE PERCENT 30 % (BEAKER) (test code = 430) MONOCYTES RELATIVE PERCENT 6 % (BEAKER) (test code = 431) EOSINOPHILS RELATIVE PERCENT 1 % (BEAKER) (test code = 432) BASOPHILS RELATIVE PERCENT 1 % (BEAKER) (test code = 437) NEUTROPHILS ABSOLUTE COUNT 3.92 K/ L 1.80-8.00 (BEAKER) (test code = 670) LYMPHOCYTES ABSOLUTE COUNT 1.98 K/ L 1.48-4.50 (BEAKER) (test code = 414) MONOCYTES ABSOLUTE COUNT (BEAKER) 0.38 K/ L 0.00-1.30 (test code = 415) EOSINOPHILS ABSOLUTE COUNT 0.03 K/ L 0.00-0.50 (BEAKER) (test code = 416) BASOPHILS ABSOLUTE COUNT (BEAKER) 0.04 K/ L 0.00-0.20 (test code = 417) IMMATURE GRANULOCYTES-RELATIVE 2.90 % 0.00-0.00 H PERCENT (BEAKER) (test code = 2801) CALCIUM, [id number] 04:52:44 Test Item Value Reference Range Interpretation Comments CALCIUM IONIZED (BEAKER) (test 1.17 mmol/L 1.12-1.27 code = 698) PH, BLOOD (BEAKER) (test code = 7.43 1810) POCT-GLUCOSE [id number] 12:43:35 Test Item Value Reference Range Interpretation Comments POC-GLUCOSE METER 97 mg/dL 70-110 : TESTED A T [facility] [address] [address] (BEAKER) (test code [facility] = 1538) [place] [address]: Assembler [employer]/Techni nolan ID = [id number] for C margaret Ailinleilae POCT-GLUCOSE [id number] 06:10:22 Test Item Value Reference Range Interpretation Comments POC-GLUCOSE METER 90 mg/dL 70-110 : TESTED A T [facility] 52645 (BEAKER) (test code = [facility], 1538) [facility] [place] [address]: Assembler [employer]/Techni nolan ID = [id number] for A Adarsh mullins BASIC METABOLIC [id number] 03:20:26 Test Item Value Reference Range Interpretation Comments SODIUM (BEAKER) 138 meq/L 135-148 (test code = 381) POTASSIUM 3.3 meq/L 3.5-5.5 L (BEAKER) (test code = 379) CHLORIDE (BEAKER) 104 meq/L 98-106 (test code = 382) CO2 (BEAKER) 23 meq/L 20-31 (test code = 355) BLOOD UREA 14 mg/dL 10-26 NITROGEN (BEAKER) (test code = 354) CREATININE 0.81 mg/dL 0.50-1.20 (BEAKER) (test code = 358) GLUCOSE RANDOM 108 mg/dL 70-110 (BEAKER) (test code = 652) CALCIUM (BEAKER) 8.7 mg/dL 8.5-10.5 (test code = 697) EGFR (BEAKER) 125 Interpretatio n of eGFR (test code = mL/min/1.73 values Stage De scription 1092) sq m Result G1 Margaret l or high >=90 G2 Mildly decreased 60-89 G3a Mildl y to moderately 45-5 9 G3b Moderately to s everely 30-44 G4 Severl y decreased 15-29 G5 Kidney failure <15Reported eGF R is based on the CKD-EPI 2020 equation that d oes not use a race coefficientEsti mated GFR is not as accur ate as Creatinine Yojana mau in predicting glom erular filtration rate . Estimated GFR is not appl icable for dialysis patien ts Assembler [employer] ID - [id number] W/PLT COUNT & AUTO [id number] 02:45:53 Test Item Value Reference Range Interpretation Comments WHITE BLOOD CELL COUNT (BEAKER) 8.0 K/ L 4.0-10.0 (test code = 775) RED BLOOD CELL COUNT (BEAKER) 3.24 M/ L 4.20-5.80 L (test code = 761) HEMOGLOBIN (BEAKER) (test code = 9.1 GM/DL 13.0-16.8 L 410) HEMATOCRIT (BEAKER) (test code = 27.6 % 36.0-50.0 L 411) MEAN CORPUSCULAR VOLUME (BEAKER) 85 fL 82-99 (test code = 753) MEAN CORPUSCULAR HEMOGLOBIN 28.1 pg 27.0-33.0 (BEAKER) (test code = 751) MEAN CORPUSCULAR HEMOGLOBIN CONC 33.0 GM/DL 32.0-36.0 (BEAKER) (test code = 752) RED CELL DISTRIBUTION WIDTH 13.7 % 12.0-15.0 (BEAKER) (test code = 412) PLATELET COUNT (BEAKER) (test 216 K/CU MM 150-430 code = 756) MEAN PLATELET VOLUME (BEAKER) 9.0 fL 6.0-11.5 (test code = 754) NUCLEATED RED BLOOD CELLS 0 /100 WBC 0-0 (BEAKER) (test code = 413) NEUTROPHILS RELATIVE PERCENT 56 % (BEAKER) (test code = 429) LYMPHOCYTES RELATIVE PERCENT 34 % (BEAKER) (test code = 430) MONOCYTES RELATIVE PERCENT 8 % (BEAKER) (test code = 431) EOSINOPHILS RELATIVE PERCENT 0 % (BEAKER) (test code = 432) BASOPHILS RELATIVE PERCENT 0 % (BEAKER) (test code = 437) NEUTROPHILS ABSOLUTE COUNT 4.44 K/ L 1.80-8.00 (BEAKER) (test code = 670) LYMPHOCYTES ABSOLUTE COUNT 2.71 K/ L 1.48-4.50 (BEAKER) (test code = 414) MONOCYTES ABSOLUTE COUNT (BEAKER) 0.61 K/ L 0.00-1.30 (test code = 415) EOSINOPHILS ABSOLUTE COUNT 0.01 K/ L 0.00-0.50 (BEAKER) (test code = 416) BASOPHILS ABSOLUTE COUNT (BEAKER) 0.03 K/ L 0.00-0.20 (test code = 417) IMMATURE GRANULOCYTES-RELATIVE 2.30 % 0.00-0.00 H PERCENT (BEAKER) (test code = 2801) CALCIUM, [id number] 02:34:37 Test Item Value Reference Range Interpretation Comments CALCIUM IONIZED (BEAKER) (test 1.16 mmol/L 1.12-1.27 code = 698) PH, BLOOD (BEAKER) (test code = 7.43 1810) POCT-GLUCOSE [id number] 23:58:38 Test Item Value Reference Range Interpretation Comments POC-GLUCOSE METER 121 mg/dL 70-110 H : Notified RN/MD: TESTED (BEAKER) (test code AT [facility] [address] [facility] = 1538) [facility] [address]: [employer]er [employer]/Techni nolan ID = [id number] for Torie Diaz POCT-GLUCOSE [id number] 17:58:06 Test Item Value Reference Range Interpretation Comments POC-GLUCOSE METER 114 mg/dL 70-110 H : TESTED A T [facility] [address] (BEAKER) (test code [facility], = 1538) [place] [address]: [employer]/Techni nolan ID = [id number] for Jeet Sharma VANCOMYCIN LEVEL, [id number] 17:52:32 Test Item Value Reference Range Interpretation Comments VANCOMYCIN RANDOM (BEAKER) (test 5.7 ug/mL code = 523) Reference Range: No NormalsOperator ID - [id number], [id number] 16:38:06 Test Item Value Reference Range Interpretation Comments CALCIUM IONIZED (BEAKER) (test 1.18 mmol/L 1.12-1.27 code = 698) PH, BLOOD (BEAKER) (test code = 7.43 1810) MRSA [id number] 12:41:36 Test Item Value Reference Range Interpretation Comments CULTURE (BEAKER) (test code No MRSA isolated = 1095) POCT-GLUCOSE [id number] 07:59:26 Test Item Value Reference Range Interpretation Comments POC-GLUCOSE METER 114 mg/dL 70-110 H : TESTED A T [facility] [address] (BEAKER) (test code [facility], = 1538) [place] [address]: As[employer]er [employer]/Techni nolan ID = [id number] for Jeet Sharma POCT-GLUCOSE [id number] 06:50:51 Test Item Value Reference Range Interpretation Comments POC-GLUCOSE METER 123 mg/dL 70-110 H : TESTED A T [facility] [id number] (BEAKER) (test code [facility] [address] [address] [facility], = 1538) [place] [address]: As[employer]er [employer]/Techni nolan ID = [id number] for A Adarsh mullins POCT-GLUCOSE [id number] 06:50:50 Test Item Value Reference Range Interpretation Comments POC-GLUCOSE METER 124 mg/dL 70-110 H : TESTED A T [facility] [address] (BEAKER) (test code [facility] [address] [facility], = 1538) [place] [address]: As[employer]er [employer]/Techni nolan ID = [id number] for A mullins, Adarsh LACTIC ACID, [id number] 06:34:35 Test Item Value Reference Range Interpretation Comments LACTATE BLOOD VENOUS 0.91 mmol/L 0.50-2.20 Specime n slightly (2) (BEAKER) (test hemolyzed code = 5627) As[employer]er [employer] ID - [id number] METABOLIC [id number] 02:53:18 Test Item Value Reference Range Interpretation Comments SODIUM (BEAKER) 134 meq/L 135-148 L (test code = 381) POTASSIUM 4.2 meq/L 3.5-5.5 (BEAKER) (test code = 379) CHLORIDE (BEAKER) 105 meq/L 98-106 (test code = 382) CO2 (BEAKER) 18 meq/L 20-31 L (test code = 355) BLOOD UREA 25 mg/dL 10-26 NITROGEN (BEAKER) (test code = 354) CREATININE 1.20 mg/dL 0.50-1.20 (BEAKER) (test code = 358) GLUCOSE RANDOM 134 mg/dL 70-110 H (BEAKER) (test code = 652) CALCIUM (BEAKER) 8.9 mg/dL 8.5-10.5 (test code = 697) EGFR (BEAKER) 87 Interpretatio n of eGFR (test code = mL/min/1.73 values Stage De scription 1092) sq m Result G1 Margaret l or high >=90 G2 Mildly decreased 60-89 G3a Mildl y to moderately 45- 59 G3b Moderately to s everely 30-44 G4 Severl y decreased 15-29 G5 Kidney failure <15Reported eGF R is based on the CKD-EPI 2020 equation that d oes not use a race coefficientEsti mated GFR is not as accur ate as Creatinine Yojana león in predicting glom erular filtration rate . Estimated GFR is not appl icable for dialysis patien ts As[employer]er [employer] ID - [id number] 02:51:41 Test Item Value Reference Range Interpretation Comments PHOSPHORUS (BEAKER) (test code = 3.5 mg/dL 2.5-4.5 604) As[employer] ID - [id number] 02:51:40 Test Item Value Reference Range Interpretation Comments MAGNESIUM (BEAKER) (test code = 2.3 mg/dL 1.5-3.0 627) As[employer] ID - [id number] W/PLT COUNT & AUTO [id number] 02:30:44 Test Item Value Reference Range Interpretation Comments WHITE BLOOD CELL COUNT (BEAKER) 13.1 K/ L 4.0-10.0 H (test code = 775) RED BLOOD CELL COUNT (BEAKER) 3.66 M/ L 4.20-5.80 L (test code = 761) HEMOGLOBIN (BEAKER) (test code = 10.2 GM/DL 13.0-16.8 L 410) HEMATOCRIT (BEAKER) (test code = 31.0 % 36.0-50.0 L 411) MEAN CORPUSCULAR VOLUME (BEAKER) 85 fL 82-99 (test code = 753) MEAN CORPUSCULAR HEMOGLOBIN 27.9 pg 27.0-33.0 (BEAKER) (test code = 751) MEAN CORPUSCULAR HEMOGLOBIN CONC 32.9 GM/DL 32.0-36.0 (BEAKER) (test code = 752) RED CELL DISTRIBUTION WIDTH 13.7 % 12.0-15.0 (BEAKER) (test code = 412) PLATELET COUNT (BEAKER) (test 211 K/CU MM 150-430 code = 756) MEAN PLATELET VOLUME (BEAKER) 8.7 fL 6.0-11.5 (test code = 754) NUCLEATED RED BLOOD CELLS 0 /100 WBC 0-0 (BEAKER) (test code = 413) NEUTROPHILS RELATIVE PERCENT 65 % (BEAKER) (test code = 429) LYMPHOCYTES RELATIVE PERCENT 24 % (BEAKER) (test code = 430) MONOCYTES RELATIVE PERCENT 9 % (BEAKER) (test code = 431) EOSINOPHILS RELATIVE PERCENT 0 % (BEAKER) (test code = 432) BASOPHILS RELATIVE PERCENT 1 % (BEAKER) (test code = 437) NEUTROPHILS ABSOLUTE COUNT 8.52 K/ L 1.80-8.00 H (BEAKER) (test code = 670) LYMPHOCYTES ABSOLUTE COUNT 3.08 K/ L 1.48-4.50 (BEAKER) (test code = 414) MONOCYTES ABSOLUTE COUNT (BEAKER) 1.13 K/ L 0.00-1.30 (test code = 415) EOSINOPHILS ABSOLUTE COUNT 0.02 K/ L 0.00-0.50 (BEAKER) (test code = 416) BASOPHILS ABSOLUTE COUNT (BEAKER) 0.07 K/ L 0.00-0.20 (test code = 417) IMMATURE GRANULOCYTES-RELATIVE 2.10 % 0.00-0.00 H PERCENT (BEAKER) (test code = 2801) CALCIUM, [id number] 02:26:29 Test Item Value Reference Range Interpretation Comments CALCIUM IONIZED (BEAKER) (test 1.07 mmol/L 1.12-1.27 L code = 698) PH, BLOOD (BEAKER) (test code = 7.52 1810) LACTIC ACID, [id number] 00:29:26 Test Item Value Reference Range Interpretation Comments LACTATE BLOOD VENOUS 1.27 mmol/L 0.50-2.20 Specime n slightly (2) (BEAKER) (test hemolyzed code = 3202) Assembler [employer] ID - [id number] ACID, [id number] 21:21:43 Test Item Value Reference Range Interpretation Comments LACTATE BLOOD VENOUS 1.94 mmol/L 0.50-2.20 Specime n slightly (2) (BEAKER) (test hemolyzed code = 4501) Assembler [employer] ID - ZMINEVANCOMYCIN LEVEL, [id number] 17:02:27 Test Item Value Reference Range Interpretation Comments VANCOMYCIN TROUGH (BEAKER) (test 22.9 ug/mL 10.0-20.0 H code = 522) Assembler [employer] ID - ZMINELACTIC ACID, [id number] 16:53:03 Test Item Value Reference Range Interpretation Comments LACTATE BLOOD VENOUS 2.42 mmol/L 0.50-2.20 H Specime n slightly (2) (BEAKER) (test hemolyzed code = 0270) Assembler [employer] ID - ZMINEPOCT-GLUCOSE [id number] 12:55:33 Test Item Value Reference Range Interpretation Comments POC-GLUCOSE METER 168 mg/dL 70-110 H : TESTED A T [facility] [address] (BEAKER) (test code [facility] [address] [facility], = 1538) [place] [address]: Assembler [employer]/Techni nolan ID = [id number] for Jeet Sharma POCT-GLUCOSE [id number] 08:17:30 Test Item Value Reference Range Interpretation Comments POC-GLUCOSE METER 188 mg/dL 70-110 H : TESTED A T [facility] [address] (BEAKER) (test code [facility] [address] [facility], = 1538) [place] [address]: As[employer]er [employer]/Techni nolan ID = [id number] for Jeet Sharma POCT-GLUCOSE [id number] 06:15:38 Test Item Value Reference Range Interpretation Comments POC-GLUCOSE METER 175 mg/dL 70-110 H : TESTED A T [facility] [address] (BEAKER) (test code [facility] [address] [facility], = 1538) [facility] [address]: Assembler [employer] Spider/Techni nolan ID = [id number] for Soraya Petty BASIC METABOLIC [id number] 05:53:10 Test Item Value Reference Range Interpretation Comments SODIUM (BEAKER) 135 meq/L 135-148 (test code = 381) POTASSIUM 4.9 meq/L 3.5-5.5 (BEAKER) (test code = 379) CHLORIDE (BEAKER) 105 meq/L 98-106 (test code = 382) CO2 (BEAKER) 17 meq/L 20-31 L (test code = 355) BLOOD UREA 35 mg/dL 10-26 H NITROGEN (BEAKER) (test code = 354) CREATININE 1.90 mg/dL 0.50-1.20 H (BEAKER) (test code = 358) GLUCOSE RANDOM 176 mg/dL 70-110 H (BEAKER) (test code = 652) CALCIUM (BEAKER) 8.6 mg/dL 8.5-10.5 (test code = 697) EGFR (BEAKER) 50 Interpretatio n of eGFR (test code = mL/min/1.73 values Stage De scription 1092) sq m Result G1 Margaret l or high >=90 G2 Mildly decreased 60-89 G3a Mildl y to moderately 45-5 9 G3b Moderately to s everely 30-44 G4 Severl y decreased 15-29 G5 Kidney failure <15Reported eGF R is based on the CKD-EPI 2020 equation that d oes not use a race coefficientEsti mated GFR is not as accur ate as Creatinine Yojana león in predicting glom erular filtration rate . Estimated GFR is not appl icable for dialysis patien ts [id number] 05:46:53 Test Item Value Reference Range Interpretation Comments PHOSPHORUS (BEAKER) (test code = 3.2 mg/dL 2.5-4.5 604) [id number] 05:46:52 Test Item Value Reference Range Interpretation Comments MAGNESIUM (BEAKER) (test code = 1.9 mg/dL 1.5-3.0 627) CBC W/PLT COUNT & AUTO [id number] 05:19:35 Test Item Value Reference Range Interpretation Comments WHITE BLOOD CELL COUNT (BEAKER) 19.7 K/ L 4.0-10.0 H (test code = 775) RED BLOOD CELL COUNT (BEAKER) 4.07 M/ L 4.20-5.80 L (test code = 761) HEMOGLOBIN (BEAKER) (test code = 11.4 GM/DL 13.0-16.8 L 410) HEMATOCRIT (BEAKER) (test code = 33.3 % 36.0-50.0 L 411) MEAN CORPUSCULAR VOLUME (BEAKER) 82 fL 82-99 (test code = 753) MEAN CORPUSCULAR HEMOGLOBIN 28.0 pg 27.0-33.0 (BEAKER) (test code = 751) MEAN CORPUSCULAR HEMOGLOBIN CONC 34.2 GM/DL 32.0-36.0 (BEAKER) (test code = 752) RED CELL DISTRIBUTION WIDTH 13.3 % 12.0-15.0 (BEAKER) (test code = 412) PLATELET COUNT (BEAKER) (test 401 K/CU MM 150-430 code = 756) MEAN PLATELET VOLUME (BEAKER) 8.6 fL 6.0-11.5 (test code = 754) NUCLEATED RED BLOOD CELLS 0 /100 WBC 0-0 (BEAKER) (test code = 413) NEUTROPHILS RELATIVE PERCENT 67 % (BEAKER) (test code = 429) LYMPHOCYTES RELATIVE PERCENT 18 % (BEAKER) (test code = 430) MONOCYTES RELATIVE PERCENT 9 % (BEAKER) (test code = 431) EOSINOPHILS RELATIVE PERCENT 0 % (BEAKER) (test code = 432) BASOPHILS RELATIVE PERCENT 1 % (BEAKER) (test code = 437) NEUTROPHILS ABSOLUTE COUNT 13.22 K/ L 1.80-8.00 H (BEAKER) (test code = 670) LYMPHOCYTES ABSOLUTE COUNT 3.60 K/ L 1.48-4.50 (BEAKER) (test code = 414) MONOCYTES ABSOLUTE COUNT (BEAKER) 1.79 K/ L 0.00-1.30 H (test code = 415) EOSINOPHILS ABSOLUTE COUNT 0.01 K/ L 0.00-0.50 (BEAKER) (test code = 416) BASOPHILS ABSOLUTE COUNT (BEAKER) 0.12 K/ L 0.00-0.20 (test code = 417) IMMATURE GRANULOCYTES-RELATIVE 4.60 % 0.00-0.00 H PERCENT (BEAKER) (test code = 2801) LACTIC ACID, [id number] 05:18:01 Test Item Value Reference Range Interpretation Comments LACTATE BLOOD VENOUS (2) (BEAKER) 2.23 mmol/L 0.50-2.20 H (test code = 2872) Assembler [employer] ID - [id number], [id number] 05:17:56 Test Item Value Reference Range Interpretation Comments CALCIUM IONIZED (BEAKER) (test 1.10 mmol/L 1.12-1.27 L code = 698) PH, BLOOD (BEAKER) (test code = 7.39 1810) OXYGEN SATURATION, [id number] 05:10:15 Test Item Value Reference Range Interpretation Comments O2 SATURATION (MEASURED) (BEAKER) 84.2 % (test code = 1455) TROPONIN [id number] 00:47:38 Test Item Value Reference Range Interpretation Comments TROPONIN I (BEAKER) (test code = 0.08 ng/mL 0.00-0.15 397) Troponin I (TnI) levels must be interpreted in the context of the presenting symptoms and the clinical findings. Elevated TnI levels indicate myocardial damage, but are not specific for ischemic heart disease. Elevated TnI levels are seen in patients with other cardiac conditions (including myocarditis and congestive heart failure), and slight TnI elevations occur in patients with other conditions, including sepsis, renal failure, acidosis, acute neurological disease, and persistent tachyarrhythmia.Assembler [employer] ID - [id number] METABOLIC [id number] 00:41:38 Test Item Value Reference Range Interpretation Comments SODIUM (BEAKER) 134 meq/L 135-148 L (test code = 381) POTASSIUM 4.7 meq/L 3.5-5.5 (BEAKER) (test code = 379) CHLORIDE (BEAKER) 105 meq/L 98-106 (test code = 382) CO2 (BEAKER) 16 meq/L 20-31 L (test code = 355) BLOOD UREA 34 mg/dL 10-26 H NITROGEN (BEAKER) (test code = 354) CREATININE 1.84 mg/dL 0.50-1.20 H (BEAKER) (test code = 358) GLUCOSE RANDOM 187 mg/dL 70-110 H (BEAKER) (test code = 652) CALCIUM (BEAKER) 8.7 mg/dL 8.5-10.5 (test code = 697) EGFR (BEAKER) 52 Interpretatio n of eGFR (test code = mL/min/1.73 values Stage De scription 1092) sq m Result G1 Margaret l or high >=90 G2 Mildly decreased 60-89 G3a Mildl y to moderately 45-5 9 G3b Moderately to s everely 30-44 G4 Severl y decreased 15-29 G5 Kidney failure <15Reported eGF R is based on the CKD-EPI 2020 equation that d oes not use a race coefficientEsti mated GFR is not as accur ate as Creatinine Yojana mau in predicting glom erular filtration rate . Estimated GFR is not appl icable for dialysis patien ts Assembler [employer] ID - [id number] 00:35:41 Test Item Value Reference Range Interpretation Comments MAGNESIUM (BEAKER) (test code = 1.9 mg/dL 1.5-3.0 627) As[employer]er [employer] ID - [id number] 00:35:41 Test Item Value Reference Range Interpretation Comments PHOSPHORUS (BEAKER) (test code = 3.3 mg/dL 2.5-4.5 604) Assembler [employer] ID - [id number] ACID, [id number] 00:22:22 Test Item Value Reference Range Interpretation Comments LACTATE BLOOD VENOUS (2) (BEAKER) 2.80 mmol/L 0.50-2.20 H (test code = 2872) Assembler [employer] ID - [id number], [id number] 00:08:48 Test Item Value Reference Range Interpretation Comments CALCIUM IONIZED (BEAKER) (test 1.09 mmol/L 1.12-1.27 L code = 698) PH, BLOOD (BEAKER) (test code = 7.41 1810) POCT-GLUCOSE [id number] 23:56:25 Test Item Value Reference Range Interpretation Comments POC-GLUCOSE METER 174 mg/dL 70-110 H : Notified RN/MD: TESTED (BEAKER) (test code AT [facility] [address] [facility] = 1538) [place] [address]: Assembler [employer]/Techni nolan ID = [id number] for Torie Diaz [id number] 17:08:16 Test Item Value Reference Range Interpretation Comments MAGNESIUM (BEAKER) (test code = 1.8 mg/dL 1.5-3.0 627) As[employer]er [employer] ID - [id number] 17:08:16 Test Item Value Reference Range Interpretation Comments PHOSPHORUS (BEAKER) (test code = 3.6 mg/dL 2.5-4.5 604) Assembler [employer] ID - VATLACTIC ACID, [id number] 17:04:54 Test Item Value Reference Range Interpretation Comments LACTATE BLOOD VENOUS 3.35 mmol/L 0.50-2.20 H Specime n slightly (2) (BEAKER) (test hemolyzed code = 7722) Assembler [employer] ID - VATBASIC METABOLIC [id number] 15:58:48 Test Item Value Reference Range Interpretation Comments SODIUM (BEAKER) 135 meq/L 135-148 (test code = 381) POTASSIUM 4.2 meq/L 3.5-5.5 (BEAKER) (test code = 379) CHLORIDE (BEAKER) 106 meq/L 98-106 (test code = 382) CO2 (BEAKER) 17 meq/L 20-31 L (test code = 355) BLOOD UREA 29 mg/dL 10-26 H NITROGEN (BEAKER) (test code = 354) CREATININE 1.65 mg/dL 0.50-1.20 H (BEAKER) (test code = 358) GLUCOSE RANDOM 176 mg/dL 70-110 H (BEAKER) (test code = 652) CALCIUM (BEAKER) 8.9 mg/dL 8.5-10.5 (test code = 697) EGFR (BEAKER) 59 Interpretatio n of eGFR (test code = mL/min/1.73 values Stage De scription 1092) sq m Result G1 Margaret l or high >=90 G2 Mildly decreased 60-89 G3a Mildl y to moderately 45-5 9 G3b Moderately to s everely 30-44 G4 Severl y decreased 15-29 G5 Kidney failure <15Reported eGF R is based on the CKD-EPI 2020 equation that d oes not use a race coefficientEsti mated GFR is not as accur ate as Creatinine Yojana león in predicting glom erular filtration rate . Estimated GFR is not appl icable for dialysis patien ts Assembler [employer] ID - VATURINALYSIS [id number] 15:50:06 Test Item Value Reference Range Interpretation Comments RBC UA (BEAKER) (test code = 519) 1 /HPF WBC UA (BEAKER) (test code = 520) 37 /HPF BACTERIA (BEAKER) (test code = 517) Many MUCUS (BEAKER) (test code = 1574) Many SQUAMOUS EPITHELIAL (BEAKER) (test 1 /HPF code = 516) As[employer]er [employer] ID - techURINALYSIS WITH MICROSCOPIC IF [id number] 15:49:32 Test Item Value Reference Range Interpretation Comments COLOR (BEAKER) (test code = 470) Yellow CLARITY (BEAKER) (test code = 469) Turbid SPECIFIC GRAVITY UA (BEAKER) (test 1.023 1.001-1.035 code = 468) PH UA (BEAKER) (test code = 467) 5.0 5.0-8.0 PROTEIN UA (BEAKER) (test code = 100 mg/dL Negative A 464) GLUCOSE UA (BEAKER) (test code = Negative Negative 365) KETONES UA (BEAKER) (test code = 5 mg/dL Negative A 371) BILIRUBIN UA (BEAKER) (test code = Negative Negative 462) BLOOD UA (BEAKER) (test code = 461) Negative Negative NITRITE UA (BEAKER) (test code = Negative Negative 465) LEUKOCYTE ESTERASE UA (BEAKER) Trace Negative A (test code = 466) UROBILINOGEN UA (BEAKER) (test code < = 463) SOURCE(BEAKER) (test code = 2795) As[employer]er [employer] ID - [auto]Assembler [employer] ID - techCBC W/PLT COUNT & AUTO DIFFERENTIAL 2023-05-15 15:38:03 Test Item Value Reference Range Interpretation Comments WHITE BLOOD CELL COUNT (BEAKER) 17.5 K/ L 4.0-10.0 H (test code = 775) RED BLOOD CELL COUNT (BEAKER) 3.96 M/ L 4.20-5.80 L (test code = 761) HEMOGLOBIN (BEAKER) (test code = 11.1 GM/DL 13.0-16.8 L 410) HEMATOCRIT (BEAKER) (test code = 33.0 % 36.0-50.0 L 411) MEAN CORPUSCULAR VOLUME (BEAKER) 83 fL 82-99 (test code = 753) MEAN CORPUSCULAR HEMOGLOBIN 28.0 pg 27.0-33.0 (BEAKER) (test code = 751) MEAN CORPUSCULAR HEMOGLOBIN CONC 33.6 GM/DL 32.0-36.0 (BEAKER) (test code = 752) RED CELL DISTRIBUTION WIDTH 13.0 % 12.0-15.0 (BEAKER) (test code = 412) PLATELET COUNT (BEAKER) (test 335 K/CU MM 150-430 code = 756) MEAN PLATELET VOLUME (BEAKER) 8.5 fL 6.0-11.5 (test code = 754) NUCLEATED RED BLOOD CELLS 0 /100 WBC 0-0 (BEAKER) (test code = 413) NEUTROPHILS RELATIVE PERCENT 71 % (BEAKER) (test code = 429) LYMPHOCYTES RELATIVE PERCENT 17 % (BEAKER) (test code = 430) MONOCYTES RELATIVE PERCENT 10 % (BEAKER) (test code = 431) EOSINOPHILS RELATIVE PERCENT 0 % (BEAKER) (test code = 432) BASOPHILS RELATIVE PERCENT 0 % (BEAKER) (test code = 437) NEUTROPHILS ABSOLUTE COUNT 12.47 K/ L 1.80-8.00 H (BEAKER) (test code = 670) LYMPHOCYTES ABSOLUTE COUNT 3.05 K/ L 1.48-4.50 (BEAKER) (test code = 414) MONOCYTES ABSOLUTE COUNT (BEAKER) 1.73 K/ L 0.00-1.30 H (test code = 415) EOSINOPHILS ABSOLUTE COUNT 0.01 K/ L 0.00-0.50 (BEAKER) (test code = 416) BASOPHILS ABSOLUTE COUNT (BEAKER) 0.06 K/ L 0.00-0.20 (test code = 417) IMMATURE GRANULOCYTES-RELATIVE 1.20 % 0.00-0.00 H PERCENT (BEAKER) (test code = 2801) [id number] 14:08:10 Test Item Value Reference Range Interpretation Comments FERRITIN (BEAKER) (test code = 65.30 ng/mL 22.00-322.00 361) As[employer] ID - [id number] 13:51:15 Test Item Value Reference Range Interpretation Comments C-REACTIVE PROTEIN (BEAKER) (test 6.35 mg/dL 0.00-0.50 H code = 676) Assembler [employer] ID - [id number] GAS, [id number] 13:27:48 Test Item Value Reference Range Interpretation Comments PH ARTERIAL (BEAKER) (test code = 7.42 7.35-7.45 383) PCO2 ARTERIAL (BEAKER) (test code 30 mm Hg 35-45 L = 384) PO2 ARTERIAL (BEAKER) (test code 93 mm Hg 80-90 H = 385) O2 SATURATION ARTERIAL (BEAKER) 97.4 % 96.0-97.0 H (test code = 386) HCO3 ARTERIAL (BEAKER) (test code 19 mmol/L 21-29 L = 388) BASE EXCESS ARTERIAL (BEAKER) -4.9 mmol/L -2.0-3.0 L (test code = 387) PATIENT TEMPERATURE (BEAKER) 36.7 (test code = 1818) FIO2 (BEAKER) (test code = 1819) 28.0 POCT-GLUCOSE [id number] 12:36:40 Test Item Value Reference Range Interpretation Comments POC-GLUCOSE METER 171 mg/dL 70-110 H : TESTED A T [facility] [address] (BEAKER) (test code [facility], = 1538) [facility] [address]: As[employer]/Techni nolan ID = [id number] for Bette Sharmasharon MEJIA LUNG PERFUSION [id number] 10:20:[address] [facility] CENTERName: KIMBERLY SYDNICATHY PEÑA : 1995 Sex: MPROCEDURE: LUNG SCAN - perfusion onlyCPT CODE: [id number]: Dyspnea, chest painTECHNIQUE: 5.4 mCi ofTc-99m MAA was injected intravenously, and staticperfusion images were obtained in multiple projections. Ventilationimaging was not performed due to COVID precautions.Correlation: Same-day chest x-raysFINDINGS:There is no significant moderate or large size segmental/subsegmentalperfusion defect identified.IMPRESSION:No suspicious findings to suggest an acute pulmonary embolism.Electronically Signed By: Jay Ofrwro3505/15/2023 10:22 CDTWorkstation Name: [id number] 08:41:53 Test Item Value Reference Range Interpretation Comments CORTISOL, TOTAL (BEAKER) (test 12.6 ug/dL 3.7-19.4 code = 2755) As[employer] ID - ADMXR CHEST 1 VIEW PORTABLE / [id number] 07:47:52 [facility] 1995 Sex: MCLINICAL HISTORY: post HD cath trialysis placement, right internaljugular vein TECHNIQUE: 1 view of the chest.COMPARISON: 05/15/2023IMPRESSION:There is a new right central line near the cavoatrial junction.There isno pneumothorax. Bilateral lung opacities are unchanged since earliertoday. Thoracic spinal hardware is again seen.Electronically Signed By: Anup Miller05/15/2023 07:50 CDTWorkstation Name: [id number] RENAL [id number] 06:54:42 [facility] 1995 Sex: MRENAL ULTRASOUNDHISTORY: Acute kidney injuryCOMPARISON: No prior comparison renal imaging is availableTECHNIQUE: Real-time ultrasound of the kidneys was performed.FINDINGS: Borderline increase in renal echogenicity bilaterally, whichcan be a sign of chronic renal parenchymal disease. The right kidneymeasur es 4.7 x 4.1 x 10.9 cm in size and the left kidney measures 5.2 x5.9 x 11.0 cm in size. Renal cortical thickness measures 1.4 cm on theright and 1.4 cm on the left.No renal mass lesion. No hydronephrosis or calculi are seen.Limited Doppler evaluation of the bilateral main renal arteries andveins demonstrated patency.The bladder is suboptimally visualized due to body habitus.IMPRESSION:1. No acute ultrasound abnormalities are visualized in the kidneys. Electronically Signed By: Jorge Crow05/15/2023 06:56 CDTWorkstation Name: [id number] CHEST 1 VIEW PORTABLE / [id number] 06:03:[address] [facility] CENTERName: SYDNI HARRIS : 1995 Sex: MCLINICAL INDICATION: pulm edema evalComparison: 04/30/2023The cardiomediastinal contours are stable.The lung volumes are low and there is mild elevation of the lefthemidiaphragm. Retrocardiac opacity may reflect atelectasis. Pneumonitisshould be excluded clinically.There is no pneumothorax, large pleural effusion or evidence of overtpulmonary edema.A right IJ CVC has been removed.A transvenous pacer lead overlies the left chest.Extensive spinal fixation hardware is partially visualized.Electronically Signed By: Edwardo Burton05/15/2023 06:05 CDTWorkstation Name: [id number]-AME2/INFLUENZA/RSV [id number] 04:55:55 Test Item Value Reference Range Interpretation Comments SARS-COV2/RT-PCR Negative Negative The SARS-Co V-2 target (test code = nucleic acids a re not 7050697) detected in thi s specimen. Negat gerard results do not preclude SARS-CoV-2 infe ction and should not be u sed as the sole basis for patient management deci sions. Negative result s must be combined with c linical observations, p atient history, and epidemiological information. A false negative result may occur if a specimen i s improperly ana ected, transported or handled. This SARS CoV-2 test is a rapid, real-garcía e RT-PCR test intended f or the qualitative det ection of nucleic acid fr om SARS-CoV-2 in a nasopharyngeal swab specimen collec katerin from individuals aamir pected of COVID-19 by the [facility]. INFLUENZA A RT-PCR Negative Negative The Flu A target nucleic (test code = acids are not d etected in [id number]) this specimen. INFLUENZA B RT-PCR Negative Negative The Flu B target nucleic (test code = acids are not d etected in 0316970) this specimen. RSV RT-PCR (test Negative Negative The RSV tar get nucleic code = 1572762) acids are no t detected in this specimen. The presence of SARS-CoV-2/FLU/RSV viral nucleic acids cannot rule out co- infections or disease caused by other viral or bacterial pathogens. As with any molecular test, mutations within the target regions of the Xpert [employer]press SARS-CoV-2/Flu/RSV test could affect primer and/or probe binding resulting in failure to detect the presence of virus or the virus being detected less predictably. False negative results may occur if the virus is present at levels below the analytical limit of detection in thisspecimen.This Xpert Xpress SARS-CoV-2/Flu/RSV test is a rapid, real-time RT-PCR test intended for the qualitative detection of nucleic acid from Xpert Xpress SARS-CoV-2/Flu/RSV in a nasopharyngeal swabspecimen collected from individuals suspected of Xpert Xpress SARS-CoV-2/Flu/RSV by their healthcareprovider. Results from [facility] Xpress SARS-CoV-2/Flu/RSV test should be correlated with the clinical history, epidemiological data, and other data available to the clinician evaluating the patient. Viral nucleic acid may persist in vivo, independent of virus viability. Detection of analyte target(s)does not imply that the corresponding virus(es) are infectious or are the causative agents for clinical symptoms.This test has not been Food and Drug Administration (FDA) cleared or approved and has been authorized by FDA under an Emergency Use Authorization (EUA). This EUA will be effective until thedeclaration that circumstances exist justifying the authorization of the emergency use of in vitro diagnostic tests for detection and/or diagnosis of COVID-19 is terminated under Section 564(b)(2) of the Act or the EUA is revoked under Section 564(g) of the Act.Fact Sheet for Healthcare Providers:https ://www.[employer]/Documents/Xpert%20Xpress%20SARS%20CoV-2/Fact%20Sheets/302-390 2%42UAGD-OAB-1%20HEALTHCARE%20PROVIDERS%20FACT%20SHEET.pdfFact Sheet for Healthcare Patients:https://www.[employer]/Docum ents/Xpert%20Xpress%20SARS%20Cov-2/Fact%20Sheets/302-3801%80HLRI-NII-6%20PATIENT %20FACT%20SHEET.pdfRAPID DRUG SCREEN, [id number] 03:27:13 Test Item Value Reference Range Interpretation Comments BARBITURATE URINE (BEAKER) (test Negative Negative code = 725) BENZODIAZEPINE SCREEN URINE (BEAKER) Negative Negative (test code = 726) COCAINE (METAB.) SCREEN (BEAKER) Negative Negative (test code = 1164) METHADONE SCREEN (BEAKER) (test code Negative Negative = 1436) OPIATE SCREEN URINE (BEAKER) (test Negative Negative code = 734) CANNABINOID SCREEN URINE (BEAKER) Negative Negative (test code = 727) AMPH/METHAMPH SCREEN (BEAKER) (test Negative Negative code = 1438) PHENCYCLIDINE SCREEN URINE (BEAKER) Negative Negative (test code = 608) PH UA (BEAKER) (test code = 467) 6.0 5.0-8.0 DRUG CUTOFF CONC.Cocaine 300 ng/mL Cannabinoid 50 ng/mLBenzodiazepine 200 ng/mLBarbiturate 200 ng/mLPhencyclidine 25 ng/mLOpiate 300 ng/mLMethadone 300 ng/mLAmphetamine/ 1000 ng/mL MethamphetamineThis assay provides an unconfirmed qualitative test result for the clinical management of patients in emergency situations. Chain of custody not maintained. Some qjio-fvp-yoaeisw medications, as well as adulterants, may cause inaccurate results. Clinical correlation should be applied. A more comprehensive drug screen or confirmation of a detected drug may be performed upon request.[employer] ID - [id number] 2023-05-15 03:14:49 Test Item Value Reference Range Interpretation Comments PROCALCITONIN (BEAKER) (test code 0.12 ng/mL <0.05 H = 3036) SEPSIS RISK (ng/mL)Low: 0.05-0.50Intermediate: 0.51-2.00High: >=2.01VALPROIC ACID LEVEL, [id number] 03:13:46 Test Item Value Reference Range Interpretation Comments VALPROIC ACID TOTAL (BEAKER) (test 2 ug/mL 50-100 L code = 924) Therapeutic range for some clinical conditions may be >100 ug/mLB-TYPE NATRIURETIC FACTOR (BNP)2023-05-15 03:12:46 Test Item Value Reference Range Interpretation Comments B-TYPE NATRIURETIC PEPTIDE (BEAKER) 84 pg/mL 0-100 (test code = 700) As[employer] ID - [id number] METABOLIC [id number] 03:06:37 Test Item Value Reference Range Interpretation Comments SODIUM (BEAKER) 132 meq/L 135-148 L (test code = 381) POTASSIUM 4.1 meq/L 3.5-5.5 (BEAKER) (test code = 379) CHLORIDE (BEAKER) 102 meq/L 98-106 (test code = 382) CO2 (BEAKER) 15 meq/L 20-31 L (test code = 355) BLOOD UREA 25 mg/dL 10-26 NITROGEN (BEAKER) (test code = 354) CREATININE 1.65 mg/dL 0.50-1.20 H (BEAKER) (test code = 358) GLUCOSE RANDOM 217 mg/dL 70-110 H (BEAKER) (test code = 652) CALCIUM (BEAKER) 9.4 mg/dL 8.5-10.5 (test code = 697) EGFR (BEAKER) 59 Interpretatio n of eGFR (test code = mL/min/1.73 values Stage De scription 1092) sq m Result G1 Margaret l or high >=90 G2 Mildly decreased 60-89 G3a Mildl y to moderately 45-5 9 G3b Moderately to s everely 30-44 G4 Severl y decreased 15-29 G5 Kidne y failure <15Reported eGF R is based on the CKD-EPI 2020 equation that d oes not use a race coefficientEsti mated GFR is not as accur ate as Creatinine Yojana mau in predicting glom erular filtration rate . Estimated GFR is not appl icable for dialysis patien ts As[employer] ID - [id number] ACID, [id number] 03:06:31 Test Item Value Reference Range Interpretation Comments LACTATE BLOOD VENOUS (2) (BEAKER) 4.20 mmol/L 0.50-2.20 HH (test code = 2872) [employer] ID - [id number] 03:04:43 Test Item Value Reference Range Interpretation Comments HEMOGLOBIN A1C (BEAKER) (test code = 4.7 % 4.3-6.1 368) As[employer] ID - [id number] 03:01:03 Test Item Value Reference Range Interpretation Comments D-DIMER QUANTITATIVE (BEAKER) 0.36 MG/L FEU <0.50 (test code = 671) Intended Use: The D-Dimer Assay can be used to aid in the diagnosis of Deep Vein Thrombosis (DVT) and Pulmonary Embolism Disease (PED).In patients with low pre- test probability, various studies concerning STA Liatest D-dimer test have reported that with a cutoff value of 0.50 MG/L FEU, the Negative Predictive Value (NPV) regarding the exclusion of thrombosis is within 95-100% range.OXYGEN SATURATION, [id number] 02:47:45 Test Item Value Reference Range Interpretation Comments O2 SATURATION (MEASURED) (BEAKER) 70.5 % (test code = 1455) BLOOD GAS, [id number] 02:46:44 Test Item Value Reference Range Interpretation Comments PH ARTERIAL (BEAKER) (test code = 7.50 7.35-7.45 H 383) PCO2 ARTERIAL (BEAKER) (test code 21 mm Hg 35-45 L = 384) PO2 ARTERIAL (BEAKER) (test code 179 mm Hg 80-90 H = 385) O2 SATURATION ARTERIAL (BEAKER) 99.4 % 96.0-97.0 H (test code = 386) HCO3 ARTERIAL (BEAKER) (test code 16 mmol/L 21-29 L = 388) BASE EXCESS ARTERIAL (BEAKER) -5.4 mmol/L -2.0-3.0 L (test code = 387) PATIENT TEMPERATURE (BEAKER) 36.0 (test code = 1818) FIO2 (BEAKER) (test code = 1819) 60.0 CALCIUM, [id number] 02:43:22 Test Item Value Reference Range Interpretation Comments CALCIUM IONIZED (BEAKER) (test 1.14 mmol/L 1.12-1.27 code = 698) PH, BLOOD (BEAKER) (test code = 7.51 1810) CBC W/PLT COUNT & AUTO [id number] 02:41:59 Test Item Value Reference Range Interpretation Comments WHITE BLOOD CELL COUNT (BEAKER) 16.2 K/ L 4.0-10.0 H (test code = 775) RED BLOOD CELL COUNT (BEAKER) 4.17 M/ L 4.20-5.80 L (test code = 761) HEMOGLOBIN (BEAKER) (test code = 11.8 GM/DL 13.0-16.8 L 410) HEMATOCRIT (BEAKER) (test code = 33.2 % 36.0-50.0 L 411) MEAN CORPUSCULAR VOLUME (BEAKER) 80 fL 82-99 L (test code = 753) MEAN CORPUSCULAR HEMOGLOBIN 28.3 pg 27.0-33.0 (BEAKER) (test code = 751) MEAN CORPUSCULAR HEMOGLOBIN CONC 35.5 GM/DL 32.0-36.0 (BEAKER) (test code = 752) RED CELL DISTRIBUTION WIDTH 12.7 % 12.0-15.0 (BEAKER) (test code = 412) PLATELET COUNT (BEAKER) (test 304 K/CU MM 150-430 code = 756) MEAN PLATELET VOLUME (BEAKER) 8.7 fL 6.0-11.5 (test code = 754) NUCLEATED RED BLOOD CELLS 0 /100 WBC 0-0 (BEAKER) (test code = 413) NEUTROPHILS RELATIVE PERCENT 76 % (BEAKER) (test code = 429) LYMPHOCYTES RELATIVE PERCENT 16 % (BEAKER) (test code = 430) MONOCYTES RELATIVE PERCENT 7 % (BEAKER) (test code = 431) EOSINOPHILS RELATIVE PERCENT 0 % (BEAKER) (test code = 432) BASOPHILS RELATIVE PERCENT 0 % (BEAKER) (test code = 437) NEUTROPHILS ABSOLUTE COUNT 12.21 K/ L 1.80-8.00 H (BEAKER) (test code = 670) LYMPHOCYTES ABSOLUTE COUNT 2.53 K/ L 1.48-4.50 (BEAKER) (test code = 414) MONOCYTES ABSOLUTE COUNT (BEAKER) 1.11 K/ L 0.00-1.30 (test code = 415) EOSINOPHILS ABSOLUTE COUNT 0.02 K/ L 0.00-0.50 (BEAKER) (test code = 416) BASOPHILS ABSOLUTE COUNT (BEAKER) 0.04 K/ L 0.00-0.20 (test code = 417) IMMATURE GRANULOCYTES-RELATIVE 1.70 % 0.00-0.00 H PERCENT (BEAKER) (test code = 2801) HEPATIC FUNCTION [id number] 02:34:39 Test Item Value Reference Range Interpretation Comments TOTAL PROTEIN (BEAKER) (test code = 6.7 gm/dL 6.0-8.5 770) ALBUMIN (BEAKER) (test code = 1145) 4.3 g/dL 3.5-5.0 BILIRUBIN TOTAL (BEAKER) (test code 0.8 mg/dL 0.1-1.3 = 377) BILIRUBIN DIRECT (BEAKER) (test 0.5 mg/dL 0.0-0.5 code = 706) ALKALINE PHOSPHATASE (BEAKER) (test 115 U/L 30-115 code = 346) AST (SGOT) (BEAKER) (test code = 23 U/L 5-40 353) ALT (SGPT) (BEAKER) (test code = 47 U/L 6-50 347) [employer] ID - [id number] 02:13:57 Test Item Value Reference Range Interpretation Comments POC-GLUCOSE METER 258 mg/dL 70-110 H : Notified RN/MD: TESTED (BEAKER) (test code AT [facility] [address] [facility] = 1538) [place] [address]: Assembler [employer]/Techni nolan ID = [id number] for Torie Diaz BASIC METABOLIC [id number] 00:55:28 Test Item Value Reference Range Interpretation Comments SODIUM (BEAKER) 131 meq/L 135-148 L (test code = 381) POTASSIUM 4.7 meq/L 3.5-5.5 (BEAKER) (test code = 379) CHLORIDE (BEAKER) 100 meq/L 98-106 (test code = 382) CO2 (BEAKER) 16 meq/L 20-31 L (test code = 355) BLOOD UREA 25 mg/dL 10-26 NITROGEN (BEAKER) (test code = 354) CREATININE 2.08 mg/dL 0.50-1.20 H (BEAKER) (test code = 358) GLUCOSE RANDOM 355 mg/dL 70-110 H (BEAKER) (test code = 652) CALCIUM (BEAKER) 9.4 mg/dL 8.5-10.5 (test code = 697) EGFR (BEAKER) 45 Interpretatio n of eGFR (test code = mL/min/1.73 values Stage De scription 1092) sq m Result G1 Margaret l or high >=90 G2 Mildly decreased 60-89 G3a Mildl y to moderately 45-5 9 G3b Moderately to s everely 30-44 G4 Severl y decreased 15-29 G5 Kidney failure <15Reported eGF R is based on the CKD-EPI 2021 equation that d oes not use a race coefficientEsti mated GFR is not as accur ate as Creatinine Yojana león in predicting glom erular filtration rate . Estimated GFR is not appl icable for dialysis patien ts [employer] ID - [id number] 00:35:50 Test Item Value Reference Range Interpretation Comments TROPONIN I (BEAKER) (test code = 0.08 ng/mL 0.00-0.15 397) Troponin I (TnI) levels must be interpreted in the context of the presenting symptoms and the clinical findings. Elevated TnI levels indicate myocardial damage, but are not specific for ischemic heart disease. Elevated TnI levels are seen in patients with other cardiac conditions (including myocarditis and congestive heart failure), and slight TnI elevations occur in patients with other conditions, including sepsis, renal failure, acidosis, acute neurological disease, and persistent tachyarrhythmia.[employer] ID - [id number] 00:29:52 Test Item Value Reference Range Interpretation Comments MAGNESIUM (BEAKER) (test code = 1.9 mg/dL 1.5-3.0 627) [employer] ID - [id number] 00:29:52 Test Item Value Reference Range Interpretation Comments PHOSPHORUS (BEAKER) (test code = 2.9 mg/dL 2.5-4.5 604) [employer] ID - [id number] 00:08:47 Test Item Value Reference Range Interpretation Comments POC-GLUCOSE METER 353 mg/dL 70-110 H : TESTED A T [facility] [address] (BEAKER) (test code [facility], = 1538) [place] [address]: As[employer]er [employer]/Techni nolan ID = [id number] for Migel Dominguez BLOOD GAS, [id number] 00:08:42 Test Item Value Reference Range Interpretation Comments PH ARTERIAL (BEAKER) (test code = 7.40 7.35-7.45 383) PCO2 ARTERIAL (BEAKER) (test code 30 mm Hg 35-45 L = 384) PO2 ARTERIAL (BEAKER) (test code 50 mm Hg 80-90 L = 385) O2 SATURATION ARTERIAL (BEAKER) 87.8 % 96.0-97.0 L (test code = 386) HCO3 ARTERIAL (BEAKER) (test code 18 mmol/L 21-29 L = 388) BASE EXCESS ARTERIAL (BEAKER) -5.8 mmol/L -2.0-3.0 L (test code = 387) PATIENT TEMPERATURE (BEAKER) 36.0 (test code = 1818) FIO2 (BEAKER) (test code = 1819) 75.0 T4, [id number] 15:57:34 Test Item Value Reference Range Interpretation Comments FREE T4 (BEAKER) (test code = 655) 1.31 ng/dL 0.70-1.48 As[employer] ID - MARCOTSH/FREE T4 IF [id number] 12:07:58 Test Item Value Reference Range Interpretation Comments THYROID STIMULATING HORMONE 0.239 uIU/mL 0.350-4.940 L (BEAKER) (test code = 772) As[employer] ID - MARCOBASIC METABOLIC [id number] 07:53:05 Test Item Value Reference Range Interpretation Comments SODIUM (BEAKER) 138 meq/L 136-145 (test code = 381) POTASSIUM 4.2 meq/L 3.5-5.1 (BEAKER) (test code = 379) CHLORIDE (BEAKER) 107 meq/L 98-107 (test code = 382) CO2 (BEAKER) 21 meq/L 22-29 L (test code = 355) BLOOD UREA 8 mg/dL 7-21 NITROGEN (BEAKER) (test code = 354) CREATININE 0.77 mg/dL 0.57-1.25 (BEAKER) (test code = 358) GLUCOSE RANDOM 116 mg/dL 70-105 H (BEAKER) (test code = 652) CALCIUM (BEAKER) 8.8 mg/dL 8.4-10.2 (test code = 697) EGFR (BEAKER) 127 Interpretatio n of eGFR (test code = mL/min/1.73 values Stage De scription 1092) sq m Result G1 Margaret l or high >=90 G2 Mildly decreased 60-89 G3a Mild ly to moderately 45-5 9 G3b Moderately to s everely 30-44 G4 Severl y decreased 15-29 G5 Kidney failure <15Reported eGF R is based on the CKD-EPI 2021 equation that d oes not use a race coefficientEsti mated GFR is not as accur ate as Creatinine Yojana león in predicting glom erular filtration rate . Estimated GFR is not appl icable for dialysis patien ts As[employer]er [employer] ID - [id number] 07:53:05 Test Item Value Reference Range Interpretation Comments MAGNESIUM (BEAKER) (test code = 2.0 mg/dL 1.6-2.6 627) As[employer] ID - BSCBC W/PLT COUNT & AUTO [id number] 07:36:21 Test Item Value Reference Range Interpretation Comments WHITE BLOOD CELL COUNT (BEAKER) 9.1 K/ L 3.5-10.5 (test code = 775) RED BLOOD CELL COUNT (BEAKER) 4.25 M/ L 4.63-6.08 L (test code = 761) HEMOGLOBIN (BEAKER) (test code = 11.8 GM/DL 13.7-17.5 L 410) HEMATOCRIT (BEAKER) (test code = 35.3 % 40.1-51.0 L 411) MEAN CORPUSCULAR VOLUME (BEAKER) 83 fL 79-92 (test code = 753) MEAN CORPUSCULAR HEMOGLOBIN 27.8 pg 25.7-32.2 (BEAKER) (test code = 751) MEAN CORPUSCULAR HEMOGLOBIN CONC 33.4 GM/DL 32.3-36.5 (BEAKER) (test code = 752) RED CELL DISTRIBUTION WIDTH 13.3 % 11.6-14.4 (BEAKER) (test code = 412) PLATELET COUNT (BEAKER) (test 238 K/CU MM 150-450 code = 756) MEAN PLATELET VOLUME (BEAKER) 9.2 fL 9.4-12.4 L (test code = 754) NUCLEATED RED BLOOD CELLS 0 /100 WBC 0-0 (BEAKER) (test code = 413) NEUTROPHILS RELATIVE PERCENT 81 % (BEAKER) (test code = 429) LYMPHOCYTES RELATIVE PERCENT 14 % (BEAKER) (test code = 430) MONOCYTES RELATIVE PERCENT 4 % (BEAKER) (test code = 431) EOSINOPHILS RELATIVE PERCENT 0 % (BEAKER) (test code = 432) BASOPHILS RELATIVE PERCENT 0 % (BEAKER) (test code = 437) NEUTROPHILS ABSOLUTE COUNT 7.37 K/ L 1.78-5.38 H (BEAKER) (test code = 670) LYMPHOCYTES ABSOLUTE COUNT 1.28 K/ L 1.32-3.57 L (BEAKER) (test code = 414) MONOCYTES ABSOLUTE COUNT (BEAKER) 0.34 K/ L 0.30-0.82 (test code = 415) EOSINOPHILS ABSOLUTE COUNT 0.00 K/ L 0.04-0.54 L (BEAKER) (test code = 416) BASOPHILS ABSOLUTE COUNT (BEAKER) 0.01 K/ L 0.01-0.08 (test code = 417) IMMATURE GRANULOCYTES-RELATIVE 0.70 % 0.00-1.00 PERCENT (BEAKER) (test code = 2801) POC-Glucose [id number] 16:45:41 Test Item Value Reference Range Interpretation Comments POC-Glucose Meter (test 119 mg/dL 70-110 H : TE STED AT [facility] code = 1538) [address] [place] [address], [address]: Assembler [employer]/Techni nolan ID = [id number] for CARLINE ZAMORA DA Lab Interpretation (test Abnormal code = 55667-7) [facility] [id number] 16:45:41 Test Item Value Reference Range Interpretation Comments POC-GLUCOSE METER 119 mg/dL 70-110 H : TESTED A T [place] [address] ([facility]) (test code = ALDA [facility], 1538) [address]: Assembler [employer]/Techni nolan ID = [id number] for RASHID BELLE POC ACTIVATED CLOTTING [id number] 15:22:23 Test Item Value Reference Range Interpretation Comments Activated Clotting Time 311 sec : 74 -137 seconds, (test code = 3184-9) Baselin e: TESTED AT [address], [address]: Assembler [employer] Spider/Techni nolan ID = [id number] for WOODS-GOLDBER G, LINDA [facility][id number] 15:22:23 Test Item Value Reference Range Interpretation Comments ACTIVATED CLOTTING TIME 311 sec : 74 -137 seconds, (BEAKER) (test code = Baseli ne: TESTED AT 441) [address], [address]: Assembler [employer]/Techni nolan ID = [id number] for WOODS-GOLDBER G, LINDA [id number] 14:49:36 Test Item Value Reference Range Interpretation Comments ACTIVATED CLOTTING TIME 317 sec : 74 -137 seconds, (BEAKER) (test code = Baseli ne: TESTED AT 441) [address], [address]: Assembler [employer]/Techni nolan ID = [id number] for WOODS-GOLDBER G, LINDA [id number] 14:11:06 Test Item Value Reference Range Interpretation Comments ACTIVATED CLOTTING TIME 275 sec : 74 -137 seconds, (BEAKER) (test code = Baseli ne: TESTED AT 441) [facility] [address] [place], [address]: Assembler [employer]/Techni nolan ID = [id number] for LINDA POLLOCK [id number] 06:37:21 Test Item Value Reference Range Interpretation Comments MAGNESIUM (BEAKER) (test code = 2.0 mg/dL 1.6-2.6 627) As[employer] ID - MARCOBASIC METABOLIC [id number] 06:37:20 Test Item Value Reference Range Interpretation Comments SODIUM (BEAKER) 140 meq/L 136-145 (test code = 381) POTASSIUM 4.1 meq/L 3.5-5.1 (BEAKER) (test code = 379) CHLORIDE (BEAKER) 109 meq/L 98-107 H (test code = 382) CO2 (BEAKER) 22 meq/L 22-29 (test code = 355) BLOOD UREA 8 mg/dL 7-21 NITROGEN (BEAKER) (test code = 354) CREATININE 0.82 mg/dL 0.57-1.25 (BEAKER) (test code = 358) GLUCOSE RANDOM 86 mg/dL 70-105 (BEAKER) (test code = 652) CALCIUM (BEAKER) 8.7 mg/dL 8.4-10.2 (test code = 697) EGFR (BEAKER) 125 Interpretatio n of eGFR (test code = mL/min/1.73 values Stage De scription 1092) sq m Result G1 Margaret l or high >=90 G2 Mildly decreased 60-89 G3a Mildl y to moderately 45-5 9 G3b Moderately to s everely 30-44 G4 Severl y decreased 15-29 G5 Kidne y failure <15Reported eGF R is based on the CKD-EPI 2021 equation that d oes not use a race coefficientEsti mated GFR is not as accur ate as Creatinine Yojana león in predicting glom erular filtration rate . Estimated GFR is not appl icable for dialysis patien ts As[employer]er [employer] ID - MARCOCBC W/PLT COUNT & AUTO [id number] 06:02:08 Test Item Value Reference Range Interpretation Comments WHITE BLOOD CELL COUNT (BEAKER) 5.4 K/ L 3.5-10.5 (test code = 775) RED BLOOD CELL COUNT (BEAKER) 4.33 M/ L 4.63-6.08 L (test code = 761) HEMOGLOBIN (BEAKER) (test code = 11.9 GM/DL 13.7-17.5 L 410) HEMATOCRIT (BEAKER) (test code = 36.5 % 40.1-51.0 L 411) MEAN CORPUSCULAR VOLUME (BEAKER) 84 fL 79-92 (test code = 753) MEAN CORPUSCULAR HEMOGLOBIN 27.5 pg 25.7-32.2 (BEAKER) (test code = 751) MEAN CORPUSCULAR HEMOGLOBIN CONC 32.6 GM/DL 32.3-36.5 (BEAKER) (test code = 752) RED CELL DISTRIBUTION WIDTH 13.4 % 11.6-14.4 (BEAKER) (test code = 412) PLATELET COUNT (BEAKER) (test 192 K/CU MM 150-450 code = 756) MEAN PLATELET VOLUME (BEAKER) 8.8 fL 9.4-12.4 L (test code = 754) NUCLEATED RED BLOOD CELLS 0 /100 WBC 0-0 (BEAKER) (test code = 413) NEUTROPHILS RELATIVE PERCENT 38 % (BEAKER) (test code = 429) LYMPHOCYTES RELATIVE PERCENT 51 % (BEAKER) (test code = 430) MONOCYTES RELATIVE PERCENT 6 % (BEAKER) (test code = 431) EOSINOPHILS RELATIVE PERCENT 3 % (BEAKER) (test code = 432) BASOPHILS RELATIVE PERCENT 1 % (BEAKER) (test code = 437) NEUTROPHILS ABSOLUTE COUNT 2.05 K/ L 1.78-5.38 (BEAKER) (test code = 670) LYMPHOCYTES ABSOLUTE COUNT 2.74 K/ L 1.32-3.57 (BEAKER) (test code = 414) MONOCYTES ABSOLUTE COUNT (BEAKER) 0.34 K/ L 0.30-0.82 (test code = 415) EOSINOPHILS ABSOLUTE COUNT 0.17 K/ L 0.04-0.54 (BEAKER) (test code = 416) BASOPHILS ABSOLUTE COUNT (BEAKER) 0.04 K/ L 0.01-0.08 (test code = 417) IMMATURE GRANULOCYTES-RELATIVE 0.60 % 0.00-1.00 PERCENT (BEAKER) (test code = 2801) BASIC METABOLIC [id number] 04:57:24 Test Item Value Reference Range Interpretation Comments SODIUM (BEAKER) 142 meq/L 136-145 (test code = 381) POTASSIUM 3.5 meq/L 3.5-5.1 (BEAKER) (test code = 379) CHLORIDE (BEAKER) 109 meq/L 98-107 H (test code = 382) CO2 (BEAKER) 20 meq/L 22-29 L (test code = 355) BLOOD UREA 9 mg/dL 7-21 NITROGEN (BEAKER) (test code = 354) CREATININE 1.04 mg/dL 0.57-1.25 (BEAKER) (test code = 358) GLUCOSE RANDOM 86 mg/dL 70-105 (BEAKER) (test code = 652) CALCIUM (BEAKER) 9.1 mg/dL 8.4-10.2 (test code = 697) EGFR (BEAKER) 103 Interpretatio n of eGFR (test code = mL/min/1.73 values Stage De scription 1092) sq m Result G1 Margaret l or high >=90 G2 Mildly decreased 60-89 G3a Mildl y to moderately 45-5 9 G3b Moderately to s everely 30-44 G4 Severl y decreased 15-29 G5 Kidney failure <15Reported eGF R is based on the CKD-EPI 2020 equation that d oes not use a race coefficientEsti mated GFR is not as accur ate as Creatinine Yojana león in predicting glom erular filtration rate . Estimated GFR is not appl icable for dialysis patien ts Assembler [employer] ID - [id number] 04:57:24 Test Item Value Reference Range Interpretation Comments MAGNESIUM (BEAKER) (test code = 1.9 mg/dL 1.6-2.6 627) As[employer]er [employer] ID - MMCBC W/PLT COUNT & AUTO [id number] 04:37:57 Test Item Value Reference Range Interpretation Comments WHITE BLOOD CELL COUNT (BEAKER) 7.5 K/ L 3.5-10.5 (test code = 775) RED BLOOD CELL COUNT (BEAKER) 4.40 M/ L 4.63-6.08 L (test code = 761) HEMOGLOBIN (BEAKER) (test code = 12.1 GM/DL 13.7-17.5 L 410) HEMATOCRIT (BEAKER) (test code = 36.8 % 40.1-51.0 L 411) MEAN CORPUSCULAR VOLUME (BEAKER) 84 fL 79-92 (test code = 753) MEAN CORPUSCULAR HEMOGLOBIN 27.5 pg 25.7-32.2 (BEAKER) (test code = 751) MEAN CORPUSCULAR HEMOGLOBIN CONC 32.9 GM/DL 32.3-36.5 (BEAKER) (test code = 752) RED CELL DISTRIBUTION WIDTH 13.3 % 11.6-14.4 (BEAKER) (test code = 412) PLATELET COUNT (BEAKER) (test 225 K/CU MM 150-450 code = 756) MEAN PLATELET VOLUME (BEAKER) 8.9 fL 9.4-12.4 L (test code = 754) NUCLEATED RED BLOOD CELLS 0 /100 WBC 0-0 (BEAKER) (test code = 413) NEUTROPHILS RELATIVE PERCENT 49 % (BEAKER) (test code = 429) LYMPHOCYTES RELATIVE PERCENT 42 % (BEAKER) (test code = 430) MONOCYTES RELATIVE PERCENT 8 % (BEAKER) (test code = 431) EOSINOPHILS RELATIVE PERCENT 1 % (BEAKER) (test code = 432) BASOPHILS RELATIVE PERCENT 1 % (BEAKER) (test code = 437) NEUTROPHILS ABSOLUTE COUNT 3.65 K/ L 1.78-5.38 (BEAKER) (test code = 670) LYMPHOCYTES ABSOLUTE COUNT 3.12 K/ L 1.32-3.57 (BEAKER) (test code = 414) MONOCYTES ABSOLUTE COUNT (BEAKER) 0.60 K/ L 0.30-0.82 (test code = 415) EOSINOPHILS ABSOLUTE COUNT 0.08 K/ L 0.04-0.54 (BEAKER) (test code = 416) BASOPHILS ABSOLUTE COUNT (BEAKER) 0.04 K/ L 0.01-0.08 (test code = 417) IMMATURE GRANULOCYTES-RELATIVE 0.40 % 0.00-1.00 PERCENT (BEAKER) (test code = 2801) POC-Glucose [id number] 11:59:47 Test Item Value Reference Range Interpretation Comments POC-Glucose Meter (test 89 mg/dL 70-110 : TE STED AT [facility] code = 1538) [address] [facility], [address]: [employer]/Techni nolan ID = [id number] for Jaden (contr act)[facility] Interpretation (test Normal code = 93977-9) [facility] [id number] 11:59:47 Test Item Value Reference Range Interpretation Comments POC-Glucose Meter (test 89 mg/dL 70-110 : TE STED AT [facility] code = 1538) [address] [facility], [address]: [employer]/Techni nolan ID = [id number] for Jaden (contr act), [facility] Interpretation (test Normal code = 14726-0) [facility] [id number] 11:59:47 Test Item Value Reference Range Interpretation Comments POC-GLUCOSE METER 89 mg/dL 70-110 : [facility] (test code [facility], = 1538) [address]: [employer]/Techni nolan ID = [id number] for Jaden (contract), [employer] POCT-GLUCOSE [id number] 07:57:40 Test Item Value Reference Range Interpretation Comments POC-GLUCOSE METER 82 mg/dL 70-110 : [facility] ([facility] (test code [facility], = 1538) [address]: [employer]/Techni nolan ID = [id number] for Jaden (contract), [employer] BASIC METABOLIC [id number] 07:16:57 Test Item Value Reference Range Interpretation Comments SODIUM (BEAKER) 141 meq/L 136-145 (test code = 381) POTASSIUM 4.2 meq/L 3.5-5.1 Specimen slight ly (BEAKER) (test hemolyzed code = 379) CHLORIDE (BEAKER) 110 meq/L 98-107 H (test code = 382) CO2 (BEAKER) 24 meq/L 22-29 (test code = 355) BLOOD UREA 12 mg/dL 7-21 NITROGEN (BEAKER) (test code = 354) CREATININE 0.90 mg/dL 0.57-1.25 Specimen slight ly (BEAKER) (test hemolyzed code = 358) GLUCOSE RANDOM 82 mg/dL 70-105 (BEAKER) (test code = 652) CALCIUM (BEAKER) 9.1 mg/dL 8.4-10.2 (test code = 697) EGFR (BEAKER) 122 Interpretatio n of eGFR (test code = mL/min/1.73 values Stage De scription 1092) sq m Result G1 Margaret l or high >=90 G2 Mildly decreased 60-89 G3a Mildl y to moderately 45-5 9 G3b Moderately to s everely 30-44 G4 Severl y decreased 15-29 G5 Kidney failure <15Reported eGF R is based on the CKD-EPI 2020 equation that d oes not use a race coefficientEsti mated GFR is not as accur ate as Creatinine Yojana mau in predicting glom erular filtration rate . Estimated GFR is not appl icable for dialysis patien ts [employer] ID - [id number] (HEMOGRAM ONLY)2023-05-06 06:56:28 Test Item Value Reference Range Interpretation Comments WHITE BLOOD CELL COUNT (BEAKER) 4.8 K/ L 3.5-10.5 (test code = 775) RED BLOOD CELL COUNT (BEAKER) 4.02 M/ L 4.63-6.08 L (test code = 761) HEMOGLOBIN (BEAKER) (test code = 11.0 GM/DL 13.7-17.5 L 410) HEMATOCRIT (BEAKER) (test code = 33.3 % 40.1-51.0 L 411) MEAN CORPUSCULAR VOLUME (BEAKER) 83 fL 79-92 (test code = 753) MEAN CORPUSCULAR HEMOGLOBIN 27.4 pg 25.7-32.2 (BEAKER) (test code = 751) MEAN CORPUSCULAR HEMOGLOBIN CONC 33.0 GM/DL 32.3-36.5 (BEAKER) (test code = 752) RED CELL DISTRIBUTION WIDTH 13.0 % 11.6-14.4 (BEAKER) (test code = 412) PLATELET COUNT (BEAKER) (test 190 K/CU MM 150-450 code = 756) MEAN PLATELET VOLUME (BEAKER) 8.3 fL 9.4-12.4 L (test code = 754) NUCLEATED RED BLOOD CELLS 0 /100 WBC 0-0 (BEAKER) (test code = 413) POCT-GLUCOSE [id number] 21:30:04 Test Item Value Reference Range Interpretation Comments POC-GLUCOSE METER 83 mg/dL 70-110 : TESTED A T [facility] 6720 (BEAKER) (test code = [place], 1538) [address]: Assembler [employer]/Techni nolan ID = [id number] for Karime Scott POCT-GLUCOSE [id number] 17:14:10 Test Item Value Reference Range Interpretation Comments POC-GLUCOSE METER 74 mg/dL 70-110 : TESTED A T [facility] 6720 (BEAKER) (test code = [facility], 1538) [address]: Assembler [employer] Spider/Techni nolan ID = [id number] for BANDAR ANN BLOOD [id number] 17:00:22 Test Item Value Reference Range Interpretation Comments CULTURE (BEAKER) (test No growth in 5 days code = 1095) POCT-GLUCOSE [id number] 11:49:15 Test Item Value Reference Range Interpretation Comments POC-GLUCOSE METER 88 mg/dL 70-110 : TESTED A T [facility] 6720 (BEAKER) (test code = [facility], 1538) [address]: Assembler [employer] Spider/Techni nolan ID = [id number] for BANDAR ANN POCT-GLUCOSE [id number] 08:04:03 Test Item Value Reference Range Interpretation Comments POC-GLUCOSE METER 94 mg/dL 70-110 : TESTED A T [facility] 6720 (BEAKER) (test code = [facility], 1538) [address]: Assembler [employer]/Techni nolan ID = [id number] for BANDRA ANN BASIC METABOLIC [id number] 05:16:45 Test Item Value Reference Range Interpretation Comments SODIUM (BEAKER) 142 meq/L 136-145 (test code = 381) POTASSIUM 3.7 meq/L 3.5-5.1 (BEAKER) (test code = 379) CHLORIDE (BEAKER) 110 meq/L 98-107 H (test code = 382) CO2 (BEAKER) 23 meq/L 22-29 (test code = 355) BLOOD UREA 10 mg/dL 7-21 NITROGEN (BEAKER) (test code = 354) CREATININE 0.79 mg/dL 0.57-1.25 (BEAKER) (test code = 358) GLUCOSE RANDOM 85 mg/dL 70-105 (BEAKER) (test code = 652) CALCIUM (BEAKER) 9.0 mg/dL 8.4-10.2 (test code = 697) EGFR (BEAKER) 126 Interpretatio n of eGFR (test code = mL/min/1.73 values Stage De scription 1092) sq m Result G1 Margaret l or high >=90 G2 Mildly decreased 60-89 G3a Mildl y to moderately 45-5 9 G3b Moderately to s everely 30-44 G4 Severl y decreased 15-29 G5 Kidney failure <15Reported eGF R is based on the CKD-EPI 2020 equation that d oes not use a race coefficientEsti mated GFR is not as accur ate as Creatinine Yojana mau in predicting glom erular filtration rate . Estimated GFR is not appl icable for dialysis patien ts Assembler [employer] ID - VAUGHN WCBC (HEMOGRAM ONLY)2023-05-05 05:00:03 Test Item Value Reference Range Interpretation Comments WHITE BLOOD CELL COUNT (BEAKER) 5.4 K/ L 3.5-10.5 (test code = 775) RED BLOOD CELL COUNT (BEAKER) 3.87 M/ L 4.63-6.08 L (test code = 761) HEMOGLOBIN (BEAKER) (test code = 10.7 GM/DL 13.7-17.5 L 410) HEMATOCRIT (BEAKER) (test code = 32.2 % 40.1-51.0 L 411) MEAN CORPUSCULAR VOLUME (BEAKER) 83 fL 79-92 (test code = 753) MEAN CORPUSCULAR HEMOGLOBIN 27.6 pg 25.7-32.2 (BEAKER) (test code = 751) MEAN CORPUSCULAR HEMOGLOBIN CONC 33.2 GM/DL 32.3-36.5 (BEAKER) (test code = 752) RED CELL DISTRIBUTION WIDTH 13.2 % 11.6-14.4 (BEAKER) (test code = 412) PLATELET COUNT (BEAKER) (test 195 K/CU MM 150-450 code = 756) MEAN PLATELET VOLUME (BEAKER) 8.5 fL 9.4-12.4 L (test code = 754) NUCLEATED RED BLOOD CELLS 0 /100 WBC 0-0 (BEAKER) (test code = 413) POCT-GLUCOSE [id number] 00:08:24 Test Item Value Reference Range Interpretation Comments POC-GLUCOSE METER 77 mg/dL 70-110 : Notified RN/MD: TESTED (BEAKER) (test code = AT [facility] [address] 1847) [facility], [facility] 30: Assembler [employer] Spider/Techni nolan ID = [id number] for Mel Rosas POCT-GLUCOSE [id number] 17:29:33 Test Item Value Reference Range Interpretation Comments POC-GLUCOSE METER 108 mg/dL 70-110 : TESTED A T [facility] 6720 (BEAKER) (test code = [facility], 1538) [address]: Assembler [employer] Spider/Techni nolan ID = [id number] for ZBIGNIEW PALOMO [id number] 12:39:21 Test Item Value Reference Range Interpretation Comments PARTIAL THROMBOPLASTIN TIME 71.2 seconds 22.5-36.0 H (BEAKER) (test code = 760) POCT-GLUCOSE [id number] 12:36:57 Test Item Value Reference Range Interpretation Comments POC-GLUCOSE METER 99 mg/dL 70-110 : TESTED A T [facility] 6720 (BEAKER) (test code = [facility], 1538) [address]: Assembler [employer]/Techni nolan ID = [id number] for Latasha Bass [id number] 04:00:24 Test Item Value Reference Range Interpretation Comments PARTIAL THROMBOPLASTIN TIME 90.6 seconds 22.5-36.0 H (BEAKER) (test code = 760) [id number] 21:01:04 Test Item Value Reference Range Interpretation Comments PARTIAL THROMBOPLASTIN TIME 63.6 seconds 22.5-36.0 H (BEAKER) (test code = 760) POCT-GLUCOSE [id number] 20:38:39 Test Item Value Reference Range Interpretation Comments POC-GLUCOSE METER 80 mg/dL 70-110 : TESTED A T [facility] 6720 (BEAKER) (test code = [facility], 1538) [address]: Assembler [employer] Spider/Techni nolan ID = [id number] for RACHEL (V)JACQUELINE [id number] 14:21:53 Test Item Value Reference Range Interpretation Comments PARTIAL THROMBOPLASTIN TIME 57.8 seconds 22.5-36.0 H (BEAKER) (test code = 760) BASIC METABOLIC [id number] 07:04:39 Test Item Value Reference Range Interpretation Comments SODIUM (BEAKER) 139 meq/L 136-145 (test code = 381) POTASSIUM 4.3 meq/L 3.5-5.1 (BEAKER) (test code = 379) CHLORIDE (BEAKER) 109 meq/L 98-107 H (test code = 382) CO2 (BEAKER) 22 meq/L 22-29 (test code = 355) BLOOD UREA 11 mg/dL 7-21 NITROGEN (BEAKER) (test code = 354) CREATININE 0.86 mg/dL 0.57-1.25 (BEAKER) (test code = 358) GLUCOSE RANDOM 94 mg/dL 70-105 (BEAKER) (test code = 652) CALCIUM (BEAKER) 9.2 mg/dL 8.4-10.2 (test code = 697) EGFR (BEAKER) 124 Interpretatio n of eGFR (test code = mL/min/1.73 values Stage De scription 1092) sq m Result G1 Margaret l or high >=90 G2 Mildly decreased 60-89 G3a Mildl y to moderately 45-5 9 G3b Moderately to s everely 30-44 G4 Severl y decreased 15-29 G5 Kidney failure <15Reported eGF R is based on the CKD-EPI 2020 equation that d oes not use a race coefficientEsti mated GFR is not as accur ate as Creatinine Yojana león in predicting glom erular filtration rate . Estimated GFR is not appl icable for dialysis patien ts Assembler [employer] ID - [id number] 06:47:56 Test Item Value Reference Range Interpretation Comments PARTIAL THROMBOPLASTIN TIME 52.8 seconds 22.5-36.0 H (BEAKER) (test code = 760) CBC W/PLT COUNT & AUTO [id number] 06:39:42 Test Item Value Reference Range Interpretation Comments WHITE BLOOD CELL COUNT (BEAKER) 5.1 K/ L 3.5-10.5 (test code = 775) RED BLOOD CELL COUNT (BEAKER) 4.03 M/ L 4.63-6.08 L (test code = 761) HEMOGLOBIN (BEAKER) (test code = 11.3 GM/DL 13.7-17.5 L 410) HEMATOCRIT (BEAKER) (test code = 33.5 % 40.1-51.0 L 411) MEAN CORPUSCULAR VOLUME (BEAKER) 83 fL 79-92 (test code = 753) MEAN CORPUSCULAR HEMOGLOBIN 28.0 pg 25.7-32.2 (BEAKER) (test code = 751) MEAN CORPUSCULAR HEMOGLOBIN CONC 33.7 GM/DL 32.3-36.5 (BEAKER) (test code = 752) RED CELL DISTRIBUTION WIDTH 13.2 % 11.6-14.4 (BEAKER) (test code = 412) PLATELET COUNT (BEAKER) (test 216 K/CU MM 150-450 code = 756) MEAN PLATELET VOLUME (BEAKER) 8.6 fL 9.4-12.4 L (test code = 754) NUCLEATED RED BLOOD CELLS 0 /100 WBC 0-0 (BEAKER) (test code = 413) NEUTROPHILS RELATIVE PERCENT 47 % (BEAKER) (test code = 429) LYMPHOCYTES RELATIVE PERCENT 43 % (BEAKER) (test code = 430) MONOCYTES RELATIVE PERCENT 7 % (BEAKER) (test code = 431) EOSINOPHILS RELATIVE PERCENT 2 % (BEAKER) (test code = 432) BASOPHILS RELATIVE PERCENT 1 % (BEAKER) (test code = 437) NEUTROPHILS ABSOLUTE COUNT 2.36 K/ L 1.78-5.38 (BEAKER) (test code = 670) LYMPHOCYTES ABSOLUTE COUNT 2.20 K/ L 1.32-3.57 (BEAKER) (test code = 414) MONOCYTES ABSOLUTE COUNT (BEAKER) 0.36 K/ L 0.30-0.82 (test code = 415) EOSINOPHILS ABSOLUTE COUNT 0.10 K/ L 0.04-0.54 (BEAKER) (test code = 416) BASOPHILS ABSOLUTE COUNT (BEAKER) 0.03 K/ L 0.01-0.08 (test code = 417) IMMATURE GRANULOCYTES-RELATIVE 0.40 % 0.00-1.00 PERCENT (BEAKER) (test code = 2801) [id number] 23:08:09 Test Item Value Reference Range Interpretation Comments PARTIAL THROMBOPLASTIN TIME 33.3 seconds 22.5-36.0 (BEAKER) (test code = 760) POCT-GLUCOSE [id number] 23:06:55 Test Item Value Reference Range Interpretation Comments POC-GLUCOSE METER 78 mg/dL 70-110 : TESTED A T [facility] 6720 (BEAKER) (test code = [place], 1538) [address]: Assembler [employer]/Techni nolan ID = [id number] for Ammy Wilson [id number] 17:31:19 Test Item Value Reference Range Interpretation Comments PARTIAL THROMBOPLASTIN TIME 33.8 seconds 22.5-36.0 (BEAKER) (test code = 760) POCT-GLUCOSE [id number] 13:06:32 Test Item Value Reference Range Interpretation Comments POC-GLUCOSE METER 96 mg/dL 70-110 : TESTED A T [facility] 6720 (BEAKER) (test code = [place], 1538) [address]: Assembler [employer]/Techni nolan ID = [id number] for Gini Franco POCT-GLUCOSE [id number] 11:40:43 Test Item Value Reference Range Interpretation Comments POC-GLUCOSE METER 86 mg/dL 70-110 : TESTED A T [facility] 6720 (BEAKER) (test code = WILMERLA Charles [facility], 1538) [address]: Assembler [employer] Spider/Techni nolan ID = [id number] for Sharmaine Castellanos CT BRAIN WITHOUT IV [id number] 09:25:27 [facility] : 1995 Sex: MCT BRAIN WITHOUT IV CONTRASTCLINICAL INDICATION: Headache, chronic, new features or increasedfrequencyCOMPARISON: NoneTECHNIQUE: Noncontrast axial CT imaging of the brain and skull. [place] sagittal reformats obtained.DOSE REDUCTION: Dose modulation, iterative reconstruction, and/orweight-based adjustment of the mA/kV was utilized to reduce theradiation dose to as low as reasonably achievable.FINDINGS:Cerebral parenchyma: No mass, acute intracranial hemorrhage or evidenceof acute cortical infarct.Cerebellum and brainstem: No acute finding.Ventricles: No evidence of hydrocephalus.Extra-axial spaces: U nremarkable.Calvarium and skull base: Intact.Paranasal sinuses and mastoid air cells: Imaged chambers are withoutacute abnormality.Orbital contents: Included portions unremarkable.IMPRESSION:No acute intracranial abnormality.If there is persistent clinical concern for intracranial pathology, MRexamination is recommended for further characterization.Electronically Signed By: Tate Degroot05/02/2023 09:27 CDTWorkstation Name: [id number] 07:12:21 Test Item Value Reference Range Interpretation Comments POC-GLUCOSE METER 93 mg/dL 70-110 : TESTED A T [facility] 6720 (BEAKER) (test code = [facility], 1538) [address]: Assembler [employer]/Techni nolan ID = [id number] for Birgit Fields BASIC METABOLIC [id number] 05:45:15 Test Item Value Reference Range Interpretation Comments SODIUM (BEAKER) 138 meq/L 136-145 (test code = 381) POTASSIUM 3.7 meq/L 3.5-5.1 Specimen slight ly (BEAKER) (test hemolyzed code = 379) CHLORIDE (BEAKER) 107 meq/L 98-107 (test code = 382) CO2 (BEAKER) 22 meq/L 22-29 (test code = 355) BLOOD UREA 8 mg/dL 7-21 NITROGEN (BEAKER) (test code = 354) CREATININE 0.80 mg/dL 0.57-1.25 Specimen slight ly (BEAKER) (test hemolyzed code = 358) GLUCOSE RANDOM 139 mg/dL 70-105 H (BEAKER) (test code = 652) CALCIUM (BEAKER) 9.3 mg/dL 8.4-10.2 (test code = 697) EGFR (BEAKER) 126 Interpretatio n of eGFR (test code = mL/min/1.73 values Stage De scription 1092) sq m Result G1 Margaret l or high >=90 G2 Mildly decreased 60-89 G3a Mildl y to moderately 45-5 9 G3b Moderately to s everely 30-44 G4 Severl y decreased 15-29 G5 Kidney failure <15Reported eGF R is based on the CKD-EPI 2020 equation that d oes not use a race coefficientEsti mated GFR is not as accur ate as Creatinine Yojana mau in predicting glom erular filtration rate . Estimated GFR is not appl icable for dialysis patien ts Assembler [employer] ID - ADMINCBC W/PLT COUNT & AUTO [id number] 05:20:42 Test Item Value Reference Range Interpretation Comments WHITE BLOOD CELL COUNT (BEAKER) 6.5 K/ L 3.5-10.5 (test code = 775) RED BLOOD CELL COUNT (BEAKER) 4.32 M/ L 4.63-6.08 L (test code = 761) HEMOGLOBIN (BEAKER) (test code = 12.0 GM/DL 13.7-17.5 L 410) HEMATOCRIT (BEAKER) (test code = 36.4 % 40.1-51.0 L 411) MEAN CORPUSCULAR VOLUME (BEAKER) 84 fL 79-92 (test code = 753) MEAN CORPUSCULAR HEMOGLOBIN 27.8 pg 25.7-32.2 (BEAKER) (test code = 751) MEAN CORPUSCULAR HEMOGLOBIN CONC 33.0 GM/DL 32.3-36.5 (BEAKER) (test code = 752) RED CELL DISTRIBUTION WIDTH 12.9 % 11.6-14.4 (BEAKER) (test code = 412) PLATELET COUNT (BEAKER) (test 257 K/CU MM 150-450 code = 756) MEAN PLATELET VOLUME (BEAKER) 8.7 fL 9.4-12.4 L (test code = 754) NUCLEATED RED BLOOD CELLS 0 /100 WBC 0-0 (BEAKER) (test code = 413) NEUTROPHILS RELATIVE PERCENT 43 % (BEAKER) (test code = 429) LYMPHOCYTES RELATIVE PERCENT 44 % (BEAKER) (test code = 430) MONOCYTES RELATIVE PERCENT 9 % (BEAKER) (test code = 431) EOSINOPHILS RELATIVE PERCENT 3 % (BEAKER) (test code = 432) BASOPHILS RELATIVE PERCENT 1 % (BEAKER) (test code = 437) NEUTROPHILS ABSOLUTE COUNT 2.83 K/ L 1.78-5.38 (BEAKER) (test code = 670) LYMPHOCYTES ABSOLUTE COUNT 2.84 K/ L 1.32-3.57 (BEAKER) (test code = 414) MONOCYTES ABSOLUTE COUNT (BEAKER) 0.60 K/ L 0.30-0.82 (test code = 415) EOSINOPHILS ABSOLUTE COUNT 0.21 K/ L 0.04-0.54 (BEAKER) (test code = 416) BASOPHILS ABSOLUTE COUNT (BEAKER) 0.03 K/ L 0.01-0.08 (test code = 417) IMMATURE GRANULOCYTES-RELATIVE 0.30 % 0.00-1.00 PERCENT (BEAKER) (test code = 2801) POCT-GLUCOSE [id number] 21:46:29 Test Item Value Reference Range Interpretation Comments POC-GLUCOSE METER 102 mg/dL 70-110 : TESTED A T [facility] 6720 (BEAKER) (test code = [facility], 1538) [address]: Assembler [employer]/Techni nolan ID = [id number] for Pe lt, Birgit POCT-GLUCOSE [id number] 17:54:58 Test Item Value Reference Range Interpretation Comments POC-GLUCOSE METER 144 mg/dL 70-110 H : TESTED A T [facility] 6720 (BEAKER) (test code = [facility], 1538) [address]: Assembler [employer]/Techni nolan ID = [id number] for AL ONSO MARROQUIN, KARINA POCT-GLUCOSE [id number] 07:14:52 Test Item Value Reference Range Interpretation Comments POC-GLUCOSE METER 110 mg/dL 70-110 : TESTED A T [facility] 6720 (BEAKER) (test code = [facility], 1538) [address]: Assembler [employer]/Techni nolan ID = [id number] for Pe lt, Birgit BASIC METABOLIC [id number] 05:42:02 Test Item Value Reference Range Interpretation Comments SODIUM (BEAKER) 141 meq/L 136-145 (test code = 381) POTASSIUM 3.6 meq/L 3.5-5.1 (BEAKER) (test code = 379) CHLORIDE (BEAKER) 106 meq/L 98-107 (test code = 382) CO2 (BEAKER) 23 meq/L 22-29 (test code = 355) BLOOD UREA 10 mg/dL 7-21 NITROGEN (BEAKER) (test code = 354) CREATININE 0.95 mg/dL 0.57-1.25 (BEAKER) (test code = 358) GLUCOSE RANDOM 123 mg/dL 70-105 H (BEAKER) (test code = 652) CALCIUM (BEAKER) 9.1 mg/dL 8.4-10.2 (test code = 697) EGFR (BEAKER) 115 Interpretatio n of eGFR (test code = mL/min/1.73 values Stage De scription 1092) sq m Result G1 Margaret l or high >=90 G2 Mildly decreased 60-89 G3a Mildl y to moderately 45-5 9 G3b Moderately to s everely 30-44 G4 Severl y decreased 15-29 G5 Kidney failure <15Reported eGF R is based on the CKD-EPI 2020 equation that d oes not use a race coefficientEsti mated GFR is not as accur ate as Creatinine Yojana mau in predicting glom erular filtration rate . Estimated GFR is not appl icable for dialysis patien ts Assembler [employer] ID - MMCBC W/PLT COUNT & AUTO [id number] 05:16:28 Test Item Value Reference Range Interpretation Comments WHITE BLOOD CELL COUNT (BEAKER) 7.3 K/ L 3.5-10.5 (test code = 775) RED BLOOD CELL COUNT (BEAKER) 4.60 M/ L 4.63-6.08 L (test code = 761) HEMOGLOBIN (BEAKER) (test code = 12.5 GM/DL 13.7-17.5 L 410) HEMATOCRIT (BEAKER) (test code = 37.6 % 40.1-51.0 L 411) MEAN CORPUSCULAR VOLUME (BEAKER) 82 fL 79-92 (test code = 753) MEAN CORPUSCULAR HEMOGLOBIN 27.2 pg 25.7-32.2 (BEAKER) (test code = 751) MEAN CORPUSCULAR HEMOGLOBIN CONC 33.2 GM/DL 32.3-36.5 (BEAKER) (test code = 752) RED CELL DISTRIBUTION WIDTH 12.6 % 11.6-14.4 (BEAKER) (test code = 412) PLATELET COUNT (BEAKER) (test 275 K/CU MM 150-450 code = 756) MEAN PLATELET VOLUME (BEAKER) 8.4 fL 9.4-12.4 L (test code = 754) NUCLEATED RED BLOOD CELLS 0 /100 WBC 0-0 (BEAKER) (test code = 413) NEUTROPHILS RELATIVE PERCENT 56 % (BEAKER) (test code = 429) LYMPHOCYTES RELATIVE PERCENT 32 % (BEAKER) (test code = 430) MONOCYTES RELATIVE PERCENT 10 % (BEAKER) (test code = 431) EOSINOPHILS RELATIVE PERCENT 1 % (BEAKER) (test code = 432) BASOPHILS RELATIVE PERCENT 1 % (BEAKER) (test code = 437) NEUTROPHILS ABSOLUTE COUNT 4.05 K/ L 1.78-5.38 (BEAKER) (test code = 670) LYMPHOCYTES ABSOLUTE COUNT 2.35 K/ L 1.32-3.57 (BEAKER) (test code = 414) MONOCYTES ABSOLUTE COUNT (BEAKER) 0.75 K/ L 0.30-0.82 (test code = 415) EOSINOPHILS ABSOLUTE COUNT 0.06 K/ L 0.04-0.54 (BEAKER) (test code = 416) BASOPHILS ABSOLUTE COUNT (BEAKER) 0.04 K/ L 0.01-0.08 (test code = 417) IMMATURE GRANULOCYTES-RELATIVE 0.50 % 0.00-1.00 PERCENT (BEAKER) (test code = 2801) POCT-GLUCOSE [id number] 22:04:02 Test Item Value Reference Range Interpretation Comments POC-GLUCOSE METER 122 mg/dL 70-110 H : TESTED A [facility] 6720 ([employer]) (test code = [facility], 1538) [address]: Assembler [employer]/Techni nolan ID = [id number] for Pe , Birgit HEPATIC FUNCTION [id number] 19:16:27 Test Item Value Reference Range Interpretation Comments TOTAL PROTEIN (BEAKER) (test code = 6.9 gm/dL 6.0-8.3 770) ALBUMIN (BEAKER) (test code = 1145) 4.3 g/dL 3.5-5.0 BILIRUBIN TOTAL (BEAKER) (test code 1.0 mg/dL 0.2-1.2 = 377) BILIRUBIN DIRECT (BEAKER) (test 0.4 mg/dL 0.1-0.5 code = 706) ALKALINE PHOSPHATASE (BEAKER) (test 98 U/L 40-150 code = 346) AST (SGOT) (BEAKER) (test code = 13 U/L 5-34 353) ALT (SGPT) (BEAKER) (test code = 15 U/L 6-55 347) Assembler [employer] ID - ADMINPOCT-GLUCOSE [id number] 16:46:23 Test Item Value Reference Range Interpretation Comments POC-GLUCOSE METER 114 mg/dL 70-110 H : TESTED A T [facility] 6720 (BEAKER) (test code = [facility], 1538) [address]: Assembler [employer]/Techni nolan ID = [id number] for Ed wardsLeah Urinalysis w/Microscopic + Reflex to [id number] 14:51:24 Test Item Value Reference Range Interpretation Comments Color, UA (test code Yellow = 5778-6) Clarity, UA (test Hazy code = 5767-9) Specific [place], UA 1.012 1.001-1.035 (test code = 5811-5) pH, UA (test code = 5.5 5.0-8.0 5803-2) Protein, UA (test 10 mg/dL Negative A code = 12925-8) Glucose, UA (test 500 mg/dL Negative A code = 365) Ketones, UA (test 10 mg/dL Negative A code = 2514-8) Bilirubin, UA (test Negative Negative code = 70633-6) Blood, UA (test code Negative Negative = 68363-1) Nitrite, UA (test Negative Negative code = 5802-4) Leukocytes, UA (test Negative Negative code = 5799-2) Urobilinogen, UA 0.2 0.2-1.0 (test code = 14657-6) RBC, UA (test code = 1 See_Comment [Autom ated 80016-7) message] The system which generated this result transmit katerin reference range : /HPF. The reference range was not used to interpret this result as normal/abnormal . WBC, UA (test code = 9 See_Comment [Autom ated 5821-4) message] The system which generated this result transmit katerin reference range : /HPF. The reference range was not used to interpret this result as normal/abnormal . Bacteria, UA (test Rare code = 30794-7) Mucus (test code = Moderate 8247-9) Squam Epithel, UA 4 See_Comment [Automate d (test code = 62861-0) messag e] The system which generated this result transmit katerin reference range : /HPF. The reference range was not used to interpret this result as normal/abnormal . Hyaline Casts, UA 54 See_Comment [Automate d (test code = 44278-9) messag e] The system which generated this result transmit katerin reference range : /LPF. The reference range was not used to interpret this result as normal/abnormal . Specimen Source (test code = 2795) HILLARY (test code = HILLARY) Assembler [employer] ID - [auto]Assembler [employer] ID - tech Lab Interpretation Abnormal (test code = 66528-3) [facility] Reflex to Culture 2023-04-30 14:51:24 Test Item Value Reference Range Interpretation Comments Color, UA (test code Yellow = 5778-6) Clarity, UA (test Hazy code = 5767-9) Specific [place], UA 1.012 1.001-1.035 (test code = 5811-5) pH, UA (test code = 5.5 5.0-8.0 5803-2) Protein, UA (test 10 mg/dL Negative A code = 52882-6) Glucose, UA (test 500 mg/dL Negative A code = 365) Ketones, UA (test 10 mg/dL Negative A code = 2514-8) Bilirubin, UA (test Negative Negative code = 46855-7) Blood, UA (test code Negative Negative = 02111-5) Nitrite, UA (test Negative Negative code = 5802-4) Leukocytes, UA (test Negative Negative code = 5799-2) Urobilinogen, UA 0.2 0.2-1.0 (test code = 75990-1) RBC, UA (test code = 1 See_Comment [Autom ated 01726-2) message] The system which generated this result transmit katerin reference range : /HPF. The reference range was not used to interpret this result as normal/abnormal . WBC, UA (test code = 9 See_Comment [Autom ated 5821-4) message] The system which generated this result transmit katerin reference range : /HPF. The reference range was not used to interpret this result as normal/abnormal . Bacteria, UA (test Rare code = 72470-7) Mucus (test code = Moderate 8247-9) Squam Epithel, UA 4 See_Comment [Automate d (test code = 03688-4) messag e] The system which generated this result transmit katerin reference range : /HPF. The reference range was not used to interpret this result as normal/abnormal . Hyaline Casts, UA 54 See_Comment [Automate d (test code = 49670-1) messag e] The system which generated this result transmit katerin reference range : /LPF. The reference range was not used to interpret this result as normal/abnormal . Specimen Source (test code = 2795) HILLARY (test code = HILLARY) [employer] ID - [auto][employer] ID - tech Lab Interpretation Abnormal (test code = 50261-5) [facility] Culture 2023-04-30 14:51:24 Test Item Value Reference Range Interpretation Comments Color, UA (test code Yellow = 5778-6) Clarity, UA (test Hazy code = 5767-9) Specific [place], UA 1.012 1.001-1.035 (test code = 5811-5) pH, UA (test code = 5.5 5.0-8.0 5803-2) Protein, UA (test 10 mg/dL Negative A code = 80703-9) Glucose, UA (test 500 mg/dL Negative A code = 365) Ketones, UA (test 10 mg/dL Negative A code = 2514-8) Bilirubin, UA (test Negative Negative code = 58686-7) Blood, UA (test code Negative Negative = 56846-0) Nitrite, UA (test Negative Negative code = 5802-4) Leukocytes, UA (test Negative Negative code = 5799-2) Urobilinogen, UA 0.2 0.2-1.0 (test code = 58766-8) RBC, UA (test code = 1 See_Comment [Autom ated 59416-9) message] The system which generated this result transmit katerin reference range : /HPF. The reference range was not used to interpret this result as normal/abnormal . WBC, UA (test code = 9 See_Comment [Autom ated 5821-4) message] The system which generated this result transmit katerin reference range : /HPF. The reference range was not used to interpret this result as normal/abnormal . Bacteria, UA (test Rare code = 69656-7) Mucus (test code = Moderate 8247-9) Squam Epithel, UA 4 See_Comment [Automate d (test code = 57370-2) messag e] The system which generated this result transmit katerin reference range : /HPF. The reference range was not used to interpret this result as normal/abnormal . Hyaline Casts, UA 54 See_Comment [Automate d (test code = 23651-0) messag e] The system which generated this result transmit katerin reference range : /LPF. The reference range was not used to interpret this result as normal/abnormal . Specimen Source (test code = 2795) HILLARY (test code = HILLARY) Assembler [employer] ID - [auto]Assembler [employer] ID - tech Lab Interpretation Abnormal (test code = 43949-6) [facility] [id number] 14:51:24 Test Item Value Reference Range Interpretation Comments COLOR (BEAKER) (test code = 470) Yellow CLARITY (BEAKER) (test code = 469) Hazy SPECIFIC GRAVITY UA (BEAKER) (test 1.012 1.001-1.035 code = 468) PH UA (BEAKER) (test code = 467) 5.5 5.0-8.0 PROTEIN UA (BEAKER) (test code = 10 mg/dL Negative A 464) GLUCOSE UA (BEAKER) (test code = 500 mg/dL Negative A 365) KETONES UA (BEAKER) (test code = 10 mg/dL Negative A 371) BILIRUBIN UA (BEAKER) (test code = Negative Negative 462) BLOOD UA (BEAKER) (test code = 461) Negative Negative NITRITE UA (BEAKER) (test code = Negative Negative 465) LEUKOCYTE ESTERASE UA (BEAKER) Negative Negative (test code = 466) UROBILINOGEN UA (BEAKER) (test code 0.2 0.2-1.0 = 463) RBC UA (BEAKER) (test code = 519) 1 /HPF WBC UA (BEAKER) (test code = 520) 9 /HPF BACTERIA (BEAKER) (test code = 517) Rare MUCUS (BEAKER) (test code = 1574) Moderate SQUAMOUS EPITHELIAL (BEAKER) (test 4 /HPF code = 516) HYALINE CASTS (BEAKER) (test code = 54 /LPF 514) SOURCE(BEAKER) (test code = 2795) Assembler [employer] ID - [auto]Assembler [employer] ID - [id number] 14:28:43 Test Item Value Reference Range Interpretation Comments PROCALCITONIN (BEAKER) (test code 0.16 ng/mL <0.05 H = 3036) SEPSIS RISK (ng/mL)Low: 0.05-0.50Intermediate: 0.51-2.00High: >=2.01TSH/FREE T4 IF [id number] 14:10:16 Test Item Value Reference Range Interpretation Comments THYROID STIMULATING HORMONE 1.447 uIU/mL 0.350-4.940 (BEAKER) (test code = 772) Assembler [employer] ID - [id number] 14:09:15 Test Item Value Reference Range Interpretation Comments CORTISOL, TOTAL (KEYAKER) (test 18.5 ug/dL 3.7-19.4 code = 2755) Assembler [employer] ID - ADMINPT/[id number] 13:40:53 Test Item Value Reference Range Interpretation Comments PROTIME (KEYAKER) (test code = 15.2 seconds 11.9-14.2 H 759) INR (BEAKER) (test code = 370) 1.22 <=5.90 PARTIAL THROMBOPLASTIN TIME 30.5 seconds 22.5-36.0 (BEAKER) (test code = 760) RECOMMENDED COUMADIN/WARFARIN INR THERAPY RANGESSTANDARD DOSE: 2.0 - 3.0 Includes: PROPHYLAXIS for venous thrombosis, systemic embolization; TREATMENT for venous thrombosis and/or pulmonary embolus.HIGH RISK: Target INR is 2.5-3.5 for patients with mechanical heart valves.LACTIC ACID, [id number] 13:40:30 Test Item Value Reference Range Interpretation Comments LACTATE BLOOD VENOUS 0.87 mmol/L 0.50-2.00 Specime n slightly (2) (BELUIS) (test hemolyzed code = 2872) 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 No pneumothorax.No infiltrates or effusions. Nocardiomegaly. Thoracolumbar fusionhardware again seen.Electronically Signed By: Anup Miller04/30/2023 12:27 CDTWorkstation Name: [id number] FUNCTION [id number] 11:47:30 Test Item Value Reference Range Interpretation Comments TOTAL PROTEIN (BEAKER) (test code = 7.4 gm/dL 6.0-8.3 770) ALBUMIN (BEAKER) (test code = 1145) 4.6 g/dL 3.5-5.0 BILIRUBIN TOTAL (BEAKER) (test code 1.2 mg/dL 0.2-1.2 = 377) BILIRUBIN DIRECT (BEAKER) (test 0.4 mg/dL 0.1-0.5 code = 706) ALKALINE PHOSPHATASE (BEAKER) (test 101 U/L 40-150 code = 346) AST (SGOT) (BEAKER) (test code = 18 U/L 5-34 353) ALT (SGPT) (BEAKER) (test code = 17 U/L 6-55 347) Assembler [employer] ID - ADMINHIGH SENSITIVITY TROPONIN [id number] 11:35:10 Test Item Value Reference Range Interpretation Comments HIGH SENSITIVITY TROPONIN I (test < pg/ml <=35 code = 9682117) Assembler [employer] ID - ADMINThe HAND PROFILER STAT High Sensitivity Troponin-I results should be used in conjunction with other diagnostic information such as ECG, clinical observations and information, and patientsymptoms to aid in the diagnosis of MT. B-TYPE NATRIURETIC FACTOR (BNP)2023-04-30 11:35:10 Test Item Value Reference Range Interpretation Comments B-TYPE NATRIURETIC PEPTIDE (BEAKER) 52 pg/mL 0-100 (test code = 700) Assembler [employer] ID - ADMINBASIC METABOLIC [id number] 11:25:08 Test Item Value Reference Range Interpretation Comments SODIUM (BEAKER) 138 meq/L 136-145 (test code = 381) POTASSIUM 3.7 meq/L 3.5-5.1 (BEAKER) (test code = 379) CHLORIDE (BEAKER) 102 meq/L 98-107 (test code = 382) CO2 (BEAKER) 25 meq/L 22-29 (test code = 355) BLOOD UREA 11 mg/dL 7-21 NITROGEN (BEAKER) (test code = 354) CREATININE 1.40 mg/dL 0.57-1.25 H (BEAKER) (test code = 358) GLUCOSE RANDOM 136 mg/dL 70-105 H (BEAKER) (test code = 652) CALCIUM (BEAKER) 10.0 mg/dL 8.4-10.2 (test code = 697) EGFR (BEAKER) 72 Interpretatio n of eGFR (test code = mL/min/1.73 values Stage De scription 1092) sq m Result G1 Margaret l or high >=90 G2 Mildly decreased 60-89 G3a Mildl y to moderately 45-5 9 G3b Moderately to s everely 30-44 G4 Severl y decreased 15-29 G5 Kidney failure <15Reported eGF R is based on the CKD-EPI 2020 equation that d oes not use a race coefficientEsti mated GFR is not as accur ate as Creatinine Yojana mau in predicting glom erular filtration rate . Estimated GFR is not appl icable for dialysis patien ts Assembler [employer] ID - [id number] 11:25:08 Test Item Value Reference Range Interpretation Comments MAGNESIUM (BEAKER) (test code = 2.2 mg/dL 1.6-2.6 627) Assembler [employer] ID - [id number] 11:25:08 Test Item Value Reference Range Interpretation Comments PHOSPHORUS (BEAKER) (test code = 3.0 mg/dL 2.3-4.7 604) Assembler [employer] ID - ADMINCBC W/PLT COUNT & AUTO [id number] 11:05:16 Test Item Value Reference Range Interpretation Comments WHITE BLOOD CELL COUNT (BEAKER) 9.8 K/ L 3.5-10.5 (test code = 775) RED BLOOD CELL COUNT (BEAKER) 4.67 M/ L 4.63-6.08 (test code = 761) HEMOGLOBIN (BEAKER) (test code = 13.2 GM/DL 13.7-17.5 L 410) HEMATOCRIT (BEAKER) (test code = 39.6 % 40.1-51.0 L 411) MEAN CORPUSCULAR VOLUME (BEAKER) 85 fL 79-92 (test code = 753) MEAN CORPUSCULAR HEMOGLOBIN 28.3 pg 25.7-32.2 (BEAKER) (test code = 751) MEAN CORPUSCULAR HEMOGLOBIN CONC 33.3 GM/DL 32.3-36.5 (BEAKER) (test code = 752) RED CELL DISTRIBUTION WIDTH 12.9 % 11.6-14.4 (BEAKER) (test code = 412) PLATELET COUNT (BEAKER) (test 339 K/CU MM 150-450 code = 756) MEAN PLATELET VOLUME (BEAKER) 8.8 fL 9.4-12.4 L (test code = 754) NUCLEATED RED BLOOD CELLS 0 /100 WBC 0-0 (BEAKER) (test code = 413) NEUTROPHILS RELATIVE PERCENT 60 % (BEAKER) (test code = 429) LYMPHOCYTES RELATIVE PERCENT 28 % (BEAKER) (test code = 430) MONOCYTES RELATIVE PERCENT 10 % (BEAKER) (test code = 431) EOSINOPHILS RELATIVE PERCENT 1 % (BEAKER) (test code = 432) BASOPHILS RELATIVE PERCENT 1 % (BEAKER) (test code = 437) NEUTROPHILS ABSOLUTE COUNT 5.92 K/ L 1.78-5.38 H (BEAKER) (test code = 670) LYMPHOCYTES ABSOLUTE COUNT 2.78 K/ L 1.32-3.57 (BEAKER) (test code = 414) MONOCYTES ABSOLUTE COUNT (BEAKER) 0.93 K/ L 0.30-0.82 H (test code = 415) EOSINOPHILS ABSOLUTE COUNT 0.07 K/ L 0.04-0.54 (BEAKER) (test code = 416) BASOPHILS ABSOLUTE COUNT (BEAKER) 0.05 K/ L 0.01-0.08 (test code = 417) IMMATURE GRANULOCYTES-RELATIVE 0.60 % 0.00-1.00 PERCENT (BEAKER) (test code = 2801) POCT-GLUCOSE [id number] 11:36:17 Test Item Value Reference Range Interpretation Comments POC-GLUCOSE METER 100 mg/dL 70-110 : TESTED Dat T [facility] 67[address] (BEAKER) (test code = [place], 1538) [address]: Assembler [employer] Spider/Techni nolan ID = [id number] for NORA LOPEZ [id number] 10:38:52 Test Item Value Reference Range Interpretation Comments PHOSPHORUS (BEAKER) 3.5 mg/dL 2.3-4.7 Specimen slightly (test code = 604) hemolyzed Assembler [employer] ID - MMBASIC METABOLIC [id number] 10:38:52 Test Item Value Reference Range Interpretation Comments SODIUM (BEAKER) 139 meq/L 136-145 (test code = 381) POTASSIUM 4.3 meq/L 3.5-5.1 Specimen slight ly (BEAKER) (test hemolyzed code = 379) CHLORIDE (BEAKER) 102 meq/L 98-107 (test code = 382) CO2 (BEAKER) 24 meq/L 22-29 (test code = 355) BLOOD UREA 14 mg/dL 7-21 NITROGEN (BEAKER) (test code = 354) CREATININE 1.03 mg/dL 0.57-1.25 Specimen slight ly (BEAKER) (test hemolyzed code = 358) GLUCOSE RANDOM 100 mg/dL 70-105 (BEAKER) (test code = 652) CALCIUM (BEAKER) 10.3 mg/dL 8.4-10.2 H (test code = 697) EGFR (BEAKER) 105 Interpretatio n of eGFR (test code = mL/min/1.73 values Stage D escription 1092) sq m Result G1 Margaret l or high >=90 G2 Mildly decreased 60-89 G3a Mildl y to moderately 45-5 9 G3b Moderately to s everely 30-44 G4 Severl y decreased 15-29 G5 Kidney failure <15Reported eGF R is based on the CKD-EPI 2020 equation that d oes not use a race coefficientEsti mated GFR is not as accur ate as Creatinine Yojana león in predicting glom erular filtration rate . Estimated GFR is not appl icable for dialysis patien ts Assembler [employer] ID - [id number] 10:38:51 Test Item Value Reference Range Interpretation Comments MAGNESIUM (BEAKER) 2.1 mg/dL 1.6-2.6 Specimen slightly (test code = 627) hemolyzed Assembler [employer] ID - MMPOCT-GLUCOSE [id number] 07:20:26 Test Item Value Reference Range Interpretation Comments POC-GLUCOSE METER 104 mg/dL 70-110 : TESTED A T [facility] 6720 (BEAKER) (test code = [place], 1538) [address]: Assembler [employer] Spider/Techni nolan ID = [id number] for Denisse Alonzo POCT-GLUCOSE [id number] 21:37:34 Test Item Value Reference Range Interpretation Comments POC-GLUCOSE METER 115 mg/dL 70-110 H : TESTED A T [facility] 6720 (BEAKER) (test code = ALDA Ace [facility], 1538) [address]: Assembler [employer] Spider/Techni nloan ID = [id number] for Bandar Archuleta POCT-GLUCOSE [id number] 17:03:49 Test Item Value Reference Range Interpretation Comments POC-GLUCOSE METER 127 mg/dL 70-110 H : TESTED A T [facility] 6720 (BEAKER) (test code = ALDA Ace [facility], 1538) [address]: Assembler [employer] Spider/Techni nolan ID = [id number] for Sary Cisneros POCT-GLUCOSE [id number] 17:03:45 Test Item Value Reference Range Interpretation Comments POC-GLUCOSE METER 90 mg/dL 70-110 : Notified RN/MD: TESTED (BEAKER) (test code = [facility] [address] [facility] 1538) [facility], [address]: Assembler [employer] Spider/Techni nolan ID = [id number] for Moran Sary BASIC METABOLIC [id number] 07:34:10 Test Item Value Reference Range Interpretation Comments SODIUM (BEAKER) 140 meq/L 136-145 (test code = 381) POTASSIUM 3.7 meq/L 3.5-5.1 (BEAKER) (test code = 379) CHLORIDE (BEAKER) 105 meq/L 98-107 (test code = 382) CO2 (BEAKER) 22 meq/L 22-29 (test code = 355) BLOOD UREA 12 mg/dL 7-21 NITROGEN (BEAKER) (test code = 354) CREATININE 0.87 mg/dL 0.57-1.25 (BEAKER) (test code = 358) GLUCOSE RANDOM 92 mg/dL 70-105 (BEAKER) (test code = 652) CALCIUM (BEAKER) 9.5 mg/dL 8.4-10.2 (test code = 697) EGFR (BEAKER) 124 Interpretatio n of eGFR (test code = mL/min/1.73 values Stage De scription 1092) sq m Result G1 Margaret l or high >=90 G2 Mildly decreased 60-89 G3a Mildl y to moderately 45-5 9 G3b Moderately to s everely 30-44 G4 Severl y decreased 15-29 G5 Kidney failure <15Reported eGF R is based on the CKD-EPI 2020 equation that d oes not use a race coefficientEsti mated GFR is not as accur ate as Creatinine Yojana león in predicting glom erular filtration rate . Estimated GFR is not appl icable for dialysis patien ts Assembler [employer] ID - DBPOCT-GLUCOSE [id number] 06:57:32 Test Item Value Reference Range Interpretation Comments POC-GLUCOSE METER 104 mg/dL 70-110 : TESTED A T [facility] 6720 (BEAKER) (test code = [place] [facility], 1538) [address]: Assembler [employer] Spider/Techni nolan ID = [id number] for esperanzaBandar CBC W/PLT COUNT & AUTO [id number] 06:04:50 Test Item Value Reference Range Interpretation Comments WHITE BLOOD CELL COUNT (BEAKER) 6.0 K/ L 3.5-10.5 (test code = 775) RED BLOOD CELL COUNT (BEAKER) 5.12 M/ L 4.63-6.08 (test code = 761) HEMOGLOBIN (BEAKER) (test code = 13.6 GM/DL 13.7-17.5 L 410) HEMATOCRIT (BEAKER) (test code = 41.8 % 40.1-51.0 411) MEAN CORPUSCULAR VOLUME (BEAKER) 82 fL 79-92 (test code = 753) MEAN CORPUSCULAR HEMOGLOBIN 26.6 pg 25.7-32.2 (BEAKER) (test code = 751) MEAN CORPUSCULAR HEMOGLOBIN CONC 32.5 GM/DL 32.3-36.5 (BEAKER) (test code = 752) RED CELL DISTRIBUTION WIDTH 15.4 % 11.6-14.4 H (BEAKER) (test code = 412) PLATELET COUNT (BEAKER) (test 255 K/CU MM 150-450 code = 756) MEAN PLATELET VOLUME (BEAKER) 8.5 fL 9.4-12.4 L (test code = 754) NUCLEATED RED BLOOD CELLS 0 /100 WBC 0-0 (BEAKER) (test code = 413) NEUTROPHILS RELATIVE PERCENT 43 % (BEAKER) (test code = 429) LYMPHOCYTES RELATIVE PERCENT 46 % (BEAKER) (test code = 430) MONOCYTES RELATIVE PERCENT 8 % (BEAKER) (test code = 431) EOSINOPHILS RELATIVE PERCENT 3 % (BEAKER) (test code = 432) BASOPHILS RELATIVE PERCENT 1 % (BEAKER) (test code = 437) NEUTROPHILS ABSOLUTE COUNT 2.56 K/ L 1.78-5.38 (BEAKER) (test code = 670) LYMPHOCYTES ABSOLUTE COUNT 2.72 K/ L 1.32-3.57 (BEAKER) (test code = 414) MONOCYTES ABSOLUTE COUNT (BEAKER) 0.45 K/ L 0.30-0.82 (test code = 415) EOSINOPHILS ABSOLUTE COUNT 0.16 K/ L 0.04-0.54 (BEAKER) (test code = 416) BASOPHILS ABSOLUTE COUNT (BEAKER) 0.05 K/ L 0.01-0.08 (test code = 417) IMMATURE GRANULOCYTES-RELATIVE 0.30 % 0.00-1.00 PERCENT (BEAKER) (test code = 2801) POCT-GLUCOSE [id number] 22:18:42 Test Item Value Reference Range Interpretation Comments POC-GLUCOSE METER 132 mg/dL 70-110 H : TESTED A T [facility] 6720 (BEAKER) (test code = ALDA Ace [facility], 1538) [address]: Assembler [employer] Spider/Techni nolan ID = [id number] for Bandar Archuleta MR, CARDIAC, [id number] 18:17:00Unlisted Reason for Exam - Click Yes and Enter Reason Below->No [facility] : 1995 Sex: MFINAL REPORT Cardiovascular MRI - Chest: 02/04/2023 5:22 PM. Comparison: None available. 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 Indication: Thisstudy is performed to assess myocardial damage, viability, and to quantitate left ventricular and valvular function. Technique: Mukesh Achieva 1.5 Jami MRI scanner.* Turbo spin echo and gradient echoimaging for anatomic definition.* Dynamic cine imaging for cardiac chamber, wall- motion, and valvular analysis.* Flow quantification sequences for hemodynamics.* Navigator-gated, whole-heart coronary MRA sequence for cardiac chamber anatomy and coronary artery origins.* T2 weighted STIR imaging (with triple IR preparation) for edema analysis.* Delayed gadolinium-enhancement analysis (inversion recovery gradient echo sequence) after injection of gadolinium- chelate (35 cc of MultiHance). RESULT: Potential study limitations: None. CHEST: The chest wall is unremarkable. The mediastinum appears normal. No significant adenopathy is identified. This study was not optimized to assess the lungs however, limited imaging reveals no gross abnormalities. The pulmonary arteries appear normal (main PA: 3.0 cm).The pericardium is unremarkable. CARDIAC CHAMBERS:The cardiac chambers have normal atrioventricular and ventriculoarterial concordance, as well as normal systemic and pulmonary venous return. The cardiac chamber sizes are notable for mild left atrial enlargement. Left Ventricle:The left ventricle is normal in size and shape, and has normal systolic function. The left ventricular myocardium is normal in thickness. There are no regional wall motion abnormalities, except for paradoxical septal movement. Quantitative left ventricular functional values are as follows:EDV = 155 cc (normal 115-198 cc); EDVi = 63 cc/m2 (normal 63-98 cc/m2).ESV = 83 cc (normal 30-75 cc); ESVi = 34 cc/m2 (normal 16-38 cc/m2).Stroke volume = 72 cc (normal 76-132 cc); SVi = 29 cc/m2 (normal 41-65 cc/m2).LVEF = 47 % (normal 55- 75%).Cardiac Output = 5.0 l/min.; Cardiac Index = 2.0 l/min/m2.LV mass = 95 gm (normal 108-184 gm);LVMi = 55 gm/m2 (normal 58-91 gm/m2). There is no increased myocardial signal intensity on T2 STIR imaging to suggest myocardial inflammation or edema. Delayed-enhancement imaging reveals uniformly "nulled" myocardium, signifying that there has been no prior ischemic myocardial damage. There is also no definite evidence of interstitial fibrosis to suggest an infiltrative process. No mural or apical left ventricular thrombus is identified. Right Ventricle:The right ventricle is normal in size and shape, and has normal systolic function.Quantitative right ventricular functional values are as follows:EDV = 56 cc (normal 113-213 cc); EDVi = 63 cc/m2 (normal 60-106 cc/m2).ESV = 78 cc (normal 27-86 cc);ESVi = 32 cc/m2 (normal 14-43 cc/m2).Stroke volume = 78 cc (normal 72-140 cc); SVi = 32 cc/m2 (normal 38-70 cc/m2).RVEF = 50 % (normal 53-78%).Cardiac Output = 5.4 l/min.; Cardiac Index = 2.2 l/min/m2. VALVES:The mitral valve is structurally normal. There is trivial mitral regurgitation.Integrating LVvolumetric and aortic flow quantification data reveals:*Quantitative mitral regurgitant volume: 5 cc/beat*Quantitative mitral regurgitant fraction: 7 % The aortic valve is structurally normal. There is trivial aortic regurgitation.Flow quantification through the ascending aorta:*Forward volume: 67 cc/beat*Reverse volume: 5 cc/beat*Net forward volume: 62 cc/beat*Aortic regurgitant fraction: 8 % The tricuspid valve is structurally normal. There is trivial imaged tricuspid regurgitation. Flow quantification sequences through the SVC and right upper lobe pulmonary vein reveal normal flow patterns consistent with normal right and normal left atrial pressures. ABDOMEN:Limited imaging through the upper abdomen reveals no abnormalities of the imaged organs. IMPRESSION: 1. Normal left ventricular size with mildly reduced global systolic function (LVEF: 47%, LVEDVi: 63 cc/m2). There are no regional wall motion abnormalities, except for paradoxical septal movement. No discrete myocardial fibrosis on delayed-enhancement imaging to suggest an infiltrative process or prior ischemic injury. No mural or apical left ventricular thrombus is identified. 2. Normal right ventricular size and systolic function. (RVEF: 50%; RVEDVi: 63 cc/m2). 3. No significant valvular abnormalities. Signed: Kenya Baldwin MDReport Verified Date/Time: 02/16/2023 18:17:41 [id number] 15:58:13 Test Item Value Reference Range Interpretation Comments MAGNESIUM (BEAKER) (test code = 1.9 mg/dL 1.6-2.6 627) Assembler [employer] ID - ADMINOperator ID - [id number] Echo W/Doppler(CW/PW/Color)2023-02-07 15:39:33Ejection FractionSLEH ECHO [facility]2D Echo W/Doppler(CW/PW/Color)2023-02-07 15:39:33Ejection FractionSLEH ECHO [facility]ART[facility] Echo W/Doppler(CW/PW/Color)2023-02-07 15:39:33[facility] PAN[facility] 2023-02-07 13:05:01 Test Item Value Reference Range Interpretation Comments TOTAL PROTEIN 7.4 gm/dL 6.0-8.3 (BEAKER) (test code = 770) ALBUMIN (BEAKER) 4.3 g/dL 3.5-5.0 (test code = 1145) ALKALINE 103 U/L 40-150 PHOSPHATASE (BEAKER) (test code = 346) BILIRUBIN TOTAL 0.8 mg/dL 0.2-1.2 (BEAKER) (test code = 377) SODIUM (BEAKER) 141 meq/L 136-145 (test code = 381) POTASSIUM (BEAKER) 3.3 meq/L 3.5-5.1 L (test code = 379) CHLORIDE (BEAKER) 101 meq/L 98-107 (test code = 382) CO2 (BEAKER) (test 27 meq/L 22-29 code = 355) BLOOD UREA 12 mg/dL 7-21 NITROGEN (BEAKER) (test code = 354) CREATININE 1.00 mg/dL 0.57-1.25 (BEAKER) (test code = 358) GLUCOSE RANDOM 85 mg/dL 70-105 (BEAKER) (test code = 652) CALCIUM (BEAKER) 10.0 mg/dL 8.4-10.2 (test code = 697) AST (SGOT) 25 U/L 5-34 (BEAKER) (test code = 353) ALT (SGPT) 32 U/L 6-55 (BEAKER) (test code = 347) EGFR (BEAKER) 108 Interpretatio n of eGFR (test code = 1092) mL/min/1.[address] age Description sq m Result G1 Margaret l or high >=90 G2 Mildly decreased 60-89 G3a Mildl y to moderately 45-5 9 G3b Moderately to s everely 30-44 G4 Severl y decreased 15-29 G5 Kidney failure <15Reported eGF R is based on the CKD-EPI 2020 equation that d oes not use a race coefficientEsti mated GFR is not as accur ate as Creatinine Yojana mau in predicting glom erular filtration rate . Estimated GFR is not appl icable for dialysis patien ts Assembler [employer] Spider ID - mmPOCT-GLUCOSE [id number] 07:45:00 Test Item Value Reference Range Interpretation Comments POC-GLUCOSE METER 88 mg/dL 70-110 : TESTED A T [facility] 6720 (LYCEEM) (test code = [employer] [place], 153) [address]: Assembler C[employer] Spider/Techni nolan ID = [id number] for KHAI ACEVEDO LIPID [id number] 06:36:58 Test Item Value Reference Range Interpretation Comments TRIGLYCERIDES (LYCEEM) (test code = 117 mg/dL 540) CHOLESTEROL (LYCEEM) (test code = 124 mg/dL 631) HDL CHOLESTEROL (Matthew Kenney CuisineAKER) (test code 44 mg/dL = 976) LDL CHOLESTEROL CALCULATED (LYCEEM) 57 mg/dL (test code = 633) Triglyceride Reference Range: Low Risk <150 Borderline 150-199 High Risk 200- 499 Very High Risk >=500Cholesterol Reference Range: Low Risk <200 Borderline 200-239 High Risk >240HDL Cholesterol Reference Range: Low Risk >=60 High Risk <40LDL Cholesterol Reference Range: Optimal <100 Near Optimal 100-129 Borderline 130-159 High 160-189 Very High >=190 Assembler [employer] Spider ID - ADMINPOCT-GLUCOSE [id number] 20:50:48 Test Item Value Reference Range Interpretation Comments POC-GLUCOSE METER 101 mg/dL 70-110 : TESTED A T [facility] 6720 (LYCEEM) (test code = [place], 153) [address]: Assembler C[employer]illar Spider/Techni nolan ID = [id number] for NANCI ABRAMSO POCT-GLUCOSE [id number] 07:29:04 Test Item Value Reference Range Interpretation Comments POC-GLUCOSE METER 77 mg/dL 70-110 : TESTED A T [facility] 6720 (BEAKER) (test code = [facility], 1538) [address]: Assembler C[employer] Spider/Techni nolan ID = [id number] for KHAI ACEVEDO POCT-GLUCOSE [id number] 21:47:37 Test Item Value Reference Range Interpretation Comments POC-GLUCOSE METER 82 mg/dL 70-110 : TESTED A T [facility] 6720 (BEAKER) (test code = [facility], 1538) [address]: Assembler C[employer]illar Spider/Techni nolan ID = [id number] for TON LOZA POCT-GLUCOSE [id number] 07:33:41 Test Item Value Reference Range Interpretation Comments POC-GLUCOSE METER 88 mg/dL 70-110 : TESTED A T [facility] 6720 (BEAKER) (test code = [facility], 1538) [id number]: As[employer]er [employer]/Techni nolan ID = [id number] for TIERA MAHAJAN BASIC METABOLIC [id number] 06:06:59 Test Item Value Reference Range Interpretation Comments SODIUM (BEAKER) 140 meq/L 136-145 (test code = 381) POTASSIUM 3.9 meq/L 3.5-5.1 (BEAKER) (test code = 379) CHLORIDE (BEAKER) 103 meq/L 98-107 (test code = 382) CO2 (BEAKER) 25 meq/L 22-29 (test code = 355) BLOOD UREA 13 mg/dL 7-21 NITROGEN (BEAKER) (test code = 354) CREATININE 0.88 mg/dL 0.57-1.25 (BEAKER) (test code = 358) GLUCOSE RANDOM 83 mg/dL 70-105 (BEAKER) (test code = 652) CALCIUM (BEAKER) 10.1 mg/dL 8.4-10.2 (test code = 697) EGFR (BEAKER) 124 Interpretatio n of eGFR (test code = mL/min/1.73 values Stage De scription 1092) sq m Result G1 Margaret l or high >=90 G2 Mildly decreased 60-89 G3a Mildl y to moderately 45-5 9 G3b Moderately to s everely 30-44 G4 Severl y decreased 15-29 G5 Kidney failure <15Reported eGF R is based on the CKD-EPI 2020 equation that d oes not use a race coefficientEsti mated GFR is not as accur ate as Creatinine Yojana mau in predicting glom erular filtration rate . Estimated GFR is not appl icable for dialysis patien ts Assembler [employer] ID - MARCOCBC W/PLT COUNT & AUTO [id number] 06:00:55 Test Item Value Reference Range Interpretation Comments WHITE BLOOD CELL COUNT (BEAKER) 7.4 K/ L 3.5-10.5 (test code = 775) RED BLOOD CELL COUNT (BEAKER) 5.66 M/ L 4.63-6.08 (test code = 761) HEMOGLOBIN (BEAKER) (test code = 14.3 GM/DL 13.7-17.5 410) HEMATOCRIT (BEAKER) (test code = 44.5 % 40.1-51.0 411) MEAN CORPUSCULAR VOLUME (BEAKER) 79 fL 79-92 (test code = 753) MEAN CORPUSCULAR HEMOGLOBIN 25.3 pg 25.7-32.2 L (BEAKER) (test code = 751) MEAN CORPUSCULAR HEMOGLOBIN CONC 32.1 GM/DL 32.3-36.5 L (BEAKER) (test code = 752) RED CELL DISTRIBUTION WIDTH 16.6 % 11.6-14.4 H (BEAKER) (test code = 412) PLATELET COUNT (BEAKER) (test 283 K/CU MM 150-450 code = 756) MEAN PLATELET VOLUME (BEAKER) 8.8 fL 9.4-12.4 L (test code = 754) NUCLEATED RED BLOOD CELLS 0 /100 WBC 0-0 (BEAKER) (test code = 413) NEUTROPHILS RELATIVE PERCENT 55 % (BEAKER) (test code = 429) LYMPHOCYTES RELATIVE PERCENT 34 % (BEAKER) (test code = 430) MONOCYTES RELATIVE PERCENT 8 % (BEAKER) (test code = 431) EOSINOPHILS RELATIVE PERCENT 2 % (BEAKER) (test code = 432) BASOPHILS RELATIVE PERCENT 1 % (BEAKER) (test code = 437) NEUTROPHILS ABSOLUTE COUNT 4.09 K/ L 1.78-5.38 (BEAKER) (test code = 670) LYMPHOCYTES ABSOLUTE COUNT 2.54 K/ L 1.32-3.57 (BEAKER) (test code = 414) MONOCYTES ABSOLUTE COUNT (BEAKER) 0.56 K/ L 0.30-0.82 (test code = 415) EOSINOPHILS ABSOLUTE COUNT 0.12 K/ L 0.04-0.54 (BEAKER) (test code = 416) BASOPHILS ABSOLUTE COUNT (BEAKER) 0.04 K/ L 0.01-0.08 (test code = 417) IMMATURE GRANULOCYTES-RELATIVE 0.80 % 0.00-1.00 PERCENT (BEAKER) (test code = 2801) POCT-GLUCOSE [id number] 21:20:02 Test Item Value Reference Range Interpretation Comments POC-GLUCOSE METER 82 mg/dL 70-110 : TESTED A T [facility] 6720 (BEAKER) (test code = [facility], 153) 42053: Assembler [employer] Spider/Techni nolan ID = [id number] for CUCA RONDON POCT-GLUCOSE [id number] 07:25:48 Test Item Value Reference Range Interpretation Comments POC-GLUCOSE METER 88 mg/dL 70-110 : TESTED A T [facility] 6720 (BEAKER) (test code = [facility], 1538) 44938: Assembler [employer] Spider/Techni nolan ID = [id number] for TADPHUCTONYAJANNETH TIERA POCT-GLUCOSE [id number] 21:07:51 Test Item Value Reference Range Interpretation Comments POC-GLUCOSE METER 85 mg/dL 70-110 : TESTED A T [facility] 6720 (BEAKER) (test code = [facility], 1538) 70409: Assembler [employer] Spider/Techni nolan ID = [id number] for Lizbeth Westa POCT-GLUCOSE [id number] 17:13:45 Test Item Value Reference Range Interpretation Comments POC-GLUCOSE METER 92 mg/dL 70-110 : TESTED A T [facility] 6720 (BEAKER) (test code = [facility], 153) 92438: Assembler [employer] Spider/Techni nolan ID = [id number] for KHAI ACEVEDO POCT-GLUCOSE [id number] 12:42:43 Test Item Value Reference Range Interpretation Comments POC-GLUCOSE METER 88 mg/dL 70-110 : TESTED A T [facility] 6720 (BEAKER) (test code = [facility], 1538) 82260: Assembler [employer] Spider/Techni nolan ID = [id number] for KHAI ACEVEDO POCT-GLUCOSE [id number] 07:29:53 Test Item Value Reference Range Interpretation Comments POC-GLUCOSE METER 103 mg/dL 70-110 : TESTED A T [facility] 6720 ([facility]) (test code = [facility], 1538) 95414: Assembler [employer] Spider/Techni nolan ID = [id number] for KHAI BOWMAN POCT-GLUCOSE [id number] 21:23:10 Test Item Value Reference Range Interpretation Comments POC-GLUCOSE METER 99 mg/dL 70-110 : TESTED A T [facility] 6720 ([facility]) (test code = [facility], 1538) 08924: 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[employer] Spider/Techni nolan ID = [id number] for MARIA LUISA GUERRERO TON POCT-GLUCOSE [id number] 17:50:26 Test Item Value Reference Range Interpretation Comments POC-GLUCOSE METER 90 mg/dL 70-110 : TESTED A T [facility] 6720 ([facility]) (test code = [facility], 1538) 12744: Assembler [employer] Spider/Techni nolan ID = [id number] for Maxine Downs POCT-GLUCOSE [id number] 12:36:26 Test Item Value Reference Range Interpretation Comments POC-GLUCOSE METER 84 mg/dL 70-110 : TESTED A T [facility] 6720 ([facility]) (test code = [facility], 1538) 66553: Assembler [employer] Spider/Techni nolan ID = [id number] for Maxine Downs HEMOGLOBIN [id number] 09:39:34 Test Item Value Reference Range Interpretation Comments HEMOGLOBIN A1C 5.0 % See_Comment [Automated m essage] ELECTROPHORESIS ([facility]) The system which (test code = 3811) generated this result transmitted ref erence range: <=5.6%. The reference range was not used to int erpret this result as normal/abnormal . "The A1c is measured using a NGSP-certified method. HbA1c value equal to or greater than 6.5% as thediagnosis cutoff for diabetes. An HbA1c value of 5.7- 6.4% indicates increased risk for diabetes (prediabetes)."Assembler [employer] ID - ADMPOCT- GLUCOSE [id number] 07:30:13 Test Item Value Reference Range Interpretation Comments POC-GLUCOSE METER 95 mg/dL 70-110 : [facility] (test code = [facility], 1538) 69371: Assembler [employer] Spider/Techni nolan ID = [id number] for Maxine Downs POCT-GLUCOSE [id number] 21:16:48 Test Item Value Reference Range Interpretation Comments POC-GLUCOSE METER 78 mg/dL 70-110 : TESTED A T [facility] 6720 (MARCELL) (test code = [facility], 1538) 86262: Assembler [employer] Spider/Techni nolan ID = [id number] for CUCA RONDON HIGH SENSITIVITY TROPONIN [id number] 19:26:41 Test Item Value Reference Range Interpretation Comments HIGH SENSITIVITY TROPONIN I (test < pg/ml <=35 code = 2945266) Assembler [employer] ID - BSThe HAND PROFILER STAT High Sensitivity Troponin-I results should be used in conjunctionwith other diagnostic information such as ECG, clinical observations and information, and patient symptoms to aid in the diagnosis of MT.POCT-GLUCOSE [id number] 17:14:50 Test Item Value Reference Range Interpretation Comments POC-GLUCOSE METER 91 mg/dL 70-110 : [facility] ([facility]LL[facility] (test code = [facility], 1538) 30984: Assembler [employer] Spider/Techni nolan ID = [id number] for Maxine Downs RAD, CHEST, 2 [id number] 16:42:00Reason for exam:->[facility] 1995 Sex: MFINAL REPORT INDICATION: SOB COMPARISON: 01/27/2023 TECHNIQUE: AP and lateral view ofthe chest. FINDINGS: Lungs and pleura: Clear lungs. No effusion.Heart and mediastinum: Normal heart size. Unremarkable mediastinal contours.Osseous structures: No acute abnormality.Other: Nicholas rods. IMPRESSION: No acute intrathoracic abnormality. Signed: Jori Portillo MDReport Verified Date/Time: 02/01/2023 16:42:46 SARS-CoV2/RT-PCR (Asymptomatic ONLY)2023-02-01 16:32:32 Test Item Value Reference Interpretation Comments Range SARS-COV2/RT-PCR Negative Negative The SARS-Co V-2 (test code = target nucleic 50940-1) acids are not detected in thi s specimen. Negat gerard results do not preclude SARS-C oV-2 infection and should not be u sed as the sole bas is for patient management decisions. Nega tive results must be combined with clinical observations, patient history , and epidemiolog ical information. A false negative result may occu r if a specimen is improperly collected, transported or handled. This S ARS CoV-2 test is a rapid, real-garcía e RT-PCR test intended for th e qualitative detection of nucleic acid fr om SARS-CoV-2 in a nasopharyngeal swab specimen [facility] from individual s suspected of COVID-19 by the ir healthcare provider. HILLARY (test code = This test has been HILLARY) authorized by FDA under an EUA for use by authorized laboratories. This test is only authorized for the duration of the declaration that circumstances exist justifying the authorization of emergency use of in vitro diagnostic tests for detection and/or diagnosis of COVID-19 under Section 564(b)(1) of the Federal Food, Drug and Cosmetic Act, 21 U.S.C. 360bbb-3(b)(1), unless the authorization is terminated or revoked sooner. Fact Sheet for Healthcare Providers: https://www.treadalong/Documents/Xp ert%20Xpress%20SAR S%20CoV-2/Fact%20S heets/703-8842%20S ARS-COV-2%20HEALTH CARE%20PROVIDERS%2 0FACT%20SHEET.pdf Fact Sheet for Healthcare Patients: https://www.treadalong/Documents/Xp ert%20Xpress%20SAR S%20CoV-2/Fact%20S heets/302-3801%20S ARS-COV-2%20PATIEN T%20FACT%20SHEET.p df Lab Interpretation Normal (test code = 51173-6) [facility]01 16:32:32 Test Item Value Reference Interpretation Comments Range SARS-COV2/RT-PCR Negative Negative The SARS-Co V-2 (test code = target nucleic 61926-6) acids are not detected in thi s specimen. Negat gerard results do not preclude SARS-C oV-2 infection and should not be u sed as the sole bas is for patient management decisions. Nega tive results must be combined with clinical observations, patient history , and epidemiolog ical information. A false negative result may occu r if a specimen is improperly collected, transported or handled. This S ARS CoV-2 test is a rapid, real-garcía e RT-PCR test intended for th e qualitative detection of nucleic acid fr om SARS-CoV-2 in a nasopharyngeal swab specimen collec katerin from individual s suspected of COVID-19 by the ir healthcare provider. HILLARY (test code = This test has been HILLARY) authorized by FDA under an EUA for use by authorized laboratories. This test is only authorized for the duration of the declaration that circumstances exist justifying the authorization of emergency use of in vitro diagnostic tests for detection and/or diagnosis of COVID-19 under Section 564(b)(1) of the Federal Food, Drug and Cosmetic Act, 21 U.S.C. 360bbb-3(b)(1), unless the authorization is terminated or revoked sooner. Fact Sheet for Healthcare Providers: https://www.treadalong/Documents/Xp ert%20Xpress%20SAR S%20CoV-2/Fact%20S heets/3023802%20S ARS-COV-2%20HEALTH CARE%20PROVIDERS%2 0FACT%20SHEET.pdf Fact Sheet for Healthcare Patients: https://www.treadalong/Documents/Xp ert%20Xpress%20SAR S%20CoV-2/Fact%20S heets/302-3801%20S ARS-COV-2%20PATIEN T%20FACT%20SHEET.p df Lab Interpretation Normal (test code = 86330-3) [facility]2023-02-01 16:32:32 Test Item Value Reference Interpretation Comments Range SARS-COV2/RT-PCR Negative Negative The SARS-Co V-2 (test code = target nucleic 54574-8) acids are not detected in thi s specimen. Negat gerard results do not preclude SARS-C oV-2 infection and should not be u sed as the sole bas is for patient management decisions. Nega tive results must be combined with clinical observations, patient history , and epidemiolog ical information. A false negative result may occu r if a specimen is improperly collected, transported or handled. This S ARS CoV-2 test is a rapid, real-garcía e RT-PCR test intended for th e qualitative detection of nucleic acid fr om SARS-CoV-2 in a nasopharyngeal swab specimen collec katerin from individual s suspected of COVID-19 by the ir healthcare provider. HILLARY (test code = This test has been IHLLARY) authorized by FDA under an EUA for use by authorized laboratories. This test is only authorized for the duration of the declaration that circumstances exist justifying the authorization of emergency use of in vitro diagnostic tests for detection and/or diagnosis of COVID-19 under Section 564(b)(1) of the Federal Food, Drug and Cosmetic Act, 21 U.S.C. 360bbb-3(b)(1), unless the authorization is terminated or revoked sooner. Fact Sheet for Healthcare Providers: https://www.treadalong/Documents/Xp ert%20Xpress%20SAR S%20CoV-2/Fact%20S heets/302-3802%20S ARS-COV-2%20HEALTH CARE%20PROVIDERS%2 0FACT%20SHEET.pdf Fact Sheet for Healthcare Patients: https://www.treadalong/Documents/Xp ert%20Xpress%20SAR S%20CoV-2/Fact%20S heets/302-3801%20S ARS-COV-2%20PATIEN T%20FACT%20SHEET.p df Lab Interpretation Normal (test code = 73066-3) [facility]2023-02-01 16:32:32 Test Item Value Reference Range Interpretation Comments SARS-COV2/RT-PCR Negative Negative The SARS-Co V-2 target (test code = nucleic acids a re not 6779202) detected in thi s specimen. Negative result s do not preclude SARS-C oV-2 infection and s hould not be used as the peterson e basis for patient managem ent decisions. Nega tive results must be combine d with clinical observ ations, patient history , and epidemiological information. A false negativ e result may occur if a spec imen is improperly ana ected, transported or handled. This SARS CoV-2 test is a rapid, real-time RT-PC R test intended for th e qualitative detection of nu cleic acid from SARS-CoV-2 in a nasopharyngeal swab specimen collected from individuals suspected of CO VID-19 by their healthcar e provider. This test has been authorized by FDA under an EUA for use by authorized laboratories. This test is only authorized for the duration of the declaration that circumstances exist justifying the authorization of emergency use of in vitro diagnostic tests for detection and/or diagnosis of COVID-19 under Section 564(b)(1) of the Federal Food, Drug and Cosmetic Act, 21 U.S.C. 360bbb-3(b)(1), unless the authorization is terminated or revoked sooner. Fact Sheet for Healthcare Providers: https://www.[employer].co m/Documents/Xpert%20Xpress%20SARS%20CoV-2/Fact%20Sheets/302-3802%86WDPP-DTI-2%20 HEALTHCARE%20PROVIDERS%20FACT%20SHEET.pdf Fact Sheet for Healthcare Patients: https://www.Chroma/Documents/Xpert%20Xp ress%20SARS%20CoV-2/Fact%20Sheets/302-3801%26FBGK-WGA-8%20PATIENT%20FACT%20SHEET .pdfHIGH SENSITIVITY TROPONIN [id number] 15:37:23 Test Item Value Reference Range Interpretation Comments HIGH SENSITIVITY TROPONIN I (test < pg/ml <=35 code = 0918538) As[employer]er [employer] ID - ADMINThe HAND PROFILER STAT High Sensitivity Troponin-I results should be used in conjunction with other diagnostic information such as ECG, clinical observations and information, and patientsymptoms to aid in the diagnosis of MT. B-TYPE NATRIURETIC FACTOR (BNP)2023-02-01 15:37:11 Test Item Value Reference Range Interpretation Comments B-TYPE NATRIURETIC PEPTIDE (BEAKER) < pg/mL 0-100 (test code = 700) Assembler [employer] ID - ADMINPOCT-GLUCOSE [id number] 14:31:41 Test Item Value Reference Range Interpretation Comments POC-GLUCOSE METER 72 mg/dL 70-110 : TESTED A T [facility] 6720 (BEAKER) (test code = [facility], 1538) 75267: Assembler [employer] Spider/Techni nolan ID = [id number] for Roma Wilhelm B-TYPE NATRIURETIC FACTOR (BNP)2023-01-27 15:46:09 Test Item Value Reference Range Interpretation Comments B-TYPE NATRIURETIC PEPTIDE (BEAKER) 27 pg/mL 0-100 (test code = 700) Assembler [employer] ID - BSHIGH SENSITIVITY TROPONIN [id number] 15:45:49 Test Item Value Reference Range Interpretation Comments HIGH SENSITIVITY TROPONIN I (test < pg/ml <=35 code = 0788806) Assembler [employer] ID - BSThe HAND PROFILER STAT High Sensitivity Troponin-I results should be used in conjunctionwith other diagnostic information such as ECG, clinical observations and information, and patient symptoms to aid in the diagnosis of MT.COMPREHENSIVE METABOLIC [id number] 15:29:15 Test Item Value Reference Range Interpretation Comments TOTAL PROTEIN 7.5 gm/dL 6.0-8.3 Specimen sligh tly (BEAKER) (test hemolyzed code = 770) ALBUMIN (BEAKER) 4.4 g/dL 3.5-5.0 Specimen sl ightly (test code = 1145) hemolyzed ALKALINE 92 U/L 40-150 PHOSPHATASE (BEAKER) (test code = 346) BILIRUBIN TOTAL 0.3 mg/dL 0.2-1.2 Specimen sli ghtly (BEAKER) (test hemolyzed code = 377) SODIUM (BEAKER) 139 meq/L 136-145 (test code = 381) POTASSIUM (BEAKER) 4.5 meq/L 3.5-5.1 Specimen slightly (test code = 379) hemolyzed CHLORIDE (BEAKER) 108 meq/L 98-107 H (test code = 382) CO2 (BEAKER) (test 22 meq/L 22-29 code = 355) BLOOD UREA 15 mg/dL 7-21 NITROGEN (BEAKER) (test code = 354) CREATININE 1.01 mg/dL 0.57-1.25 Specimen slight ly (BEAKER) (test hemolyzed code = 358) GLUCOSE RANDOM 102 mg/dL 70-105 (BEAKER) (test code = 652) CALCIUM (BEAKER) 9.7 mg/dL 8.4-10.2 (test code = 697) AST (SGOT) 21 U/L 5-34 Specimen slight ly (BEAKER) (test hemolyzed code = 353) ALT (SGPT) 21 U/L 6-55 Specimen slight ly (BEAKER) (test hemolyzed code = 347) EGFR (BEAKER) 107 Interpretatio n of eGFR (test code = 1092) mL/min/1.[address] age Description sq m Result G1 Margaret l or high >=90 G2 Mildly decreased 60-89 G3a Mildl y to moderately 45-5 9 G3b Moderately to s everely 30-44 G4 Severl y decreased 15-29 G5 Kidney failure <15Reported eGF R is based on the CKD-EPI 2021 equation that d oes not use a race coefficientEsti mated GFR is not as accur ate as Creatinine Yojana león in predicting glom erular filtration rate . Estimated GFR is not appl icable for dialysis patien ts Assembler [employer] ID - JSCBC W/PLT COUNT & AUTO [id number] 15:18:02 Test Item Value Reference Range Interpretation Comments WHITE BLOOD CELL COUNT (BEAKER) 12.9 K/ L 3.5-10.5 H (test code = 775) RED BLOOD CELL COUNT (BEAKER) 5.19 M/ L 4.63-6.08 (test code = 761) HEMOGLOBIN (BEAKER) (test code = 13.1 GM/DL 13.7-17.5 L 410) HEMATOCRIT (BEAKER) (test code = 40.8 % 40.1-51.0 411) MEAN CORPUSCULAR VOLUME (BEAKER) 79 fL 79-92 (test code = 753) MEAN CORPUSCULAR HEMOGLOBIN 25.2 pg 25.7-32.2 L (BEAKER) (test code = 751) MEAN CORPUSCULAR HEMOGLOBIN CONC 32.1 GM/DL 32.3-36.5 L (BEAKER) (test code = 752) RED CELL DISTRIBUTION WIDTH 17.1 % 11.6-14.4 H (BEAKER) (test code = 412) PLATELET COUNT (BEAKER) (test 377 K/CU MM 150-450 code = 756) MEAN PLATELET VOLUME (BEAKER) 8.6 fL 9.4-12.4 L (test code = 754) NUCLEATED RED BLOOD CELLS 0 /100 WBC 0-0 (BEAKER) (test code = 413) NEUTROPHILS RELATIVE PERCENT 84 % (BEAKER) (test code = 429) LYMPHOCYTES RELATIVE PERCENT 10 % (BEAKER) (test code = 430) MONOCYTES RELATIVE PERCENT 5 % (BEAKER) (test code = 431) EOSINOPHILS RELATIVE PERCENT 0 % (BEAKER) (test code = 432) BASOPHILS RELATIVE PERCENT 0 % (BEAKER) (test code = 437) NEUTROPHILS ABSOLUTE COUNT 10.77 K/ L 1.78-5.38 H (BEAKER) (test code = 670) LYMPHOCYTES ABSOLUTE COUNT 1.29 K/ L 1.32-3.57 L (BEAKER) (test code = 414) MONOCYTES ABSOLUTE COUNT (BEAKER) 0.68 K/ L 0.30-0.82 (test code = 415) EOSINOPHILS ABSOLUTE COUNT 0.00 K/ L 0.04-0.54 L (BEAKER) (test code = 416) BASOPHILS ABSOLUTE COUNT (BEAKER) 0.01 K/ L 0.01-0.08 (test code = 417) IMMATURE GRANULOCYTES-RELATIVE 0.90 % 0.00-1.00 PERCENT (BEAKER) (test code = 2801) RAD, CHEST, 2 [id number] 15:08:00Reason for exam:->[facility] : 1995 Sex: MFINAL REPORT RAD, CHEST, 2 VIEWS TECHNIQUE: Frontal and lateral views of the chest.INDICATION: CHEST PAIN COMPARISON: None. FINDINGS: Lungs: The lungs are well inflated. No consolidation or pulmonary edema. Small linear focus of atelectasis or scarring anteriorly in the right lung Pleura: No pleural effusion or pneumothorax. Heart and Mediastinum: The cardiomediastinal silhouette is within normal limits. Lines/Tubes: None. Soft Tissues and Bones: Extensive partially visualized thoracolumbar spine hardware fixation with pedicle screws and rods. IMPRESSION:No radiographic evidence for acute cardiopulmonary disease. Signed: Lance Flores Verified Date/Time: 01/27/2023 15:08:59 ECG/EKG [id number] 15:04:25 Test Item Value Reference Range Interpretation Comments HILLARY (test code = HILLARY) Rubin Toussaint 01/27/2023 3:19 PMECG/EKG Interpretation Date/Time: 01/27/2023 3:04 PMPerformed by: Rubin RamírezlAuthorized by: Tatianna Palmer MD The ECG was interpreted by ED physician. This ECG was compared with previous ECG(s).The ECG is interpreted as possible coarse A-fib and atrial flutter. Rate is normal rate. Heart rate is 65 BPM.Conduction: conduction normal. ST segments abnormal. T waves abnormal. [place] is normal. Other findings: no other findings. Clinical Impression: abnormal ECGECG reviewed and does not meet STEMI criteria. Lab Interpretation Abnormal (test code = 50565-2) [facility] [id number] 15:04:25 Test Item Value Reference Range Interpretation Comments HILLARY (test code = HILLARY) Rubin Toussaint 01/27/2023 3:19 PMECG/EKG Interpretation Date/Time: 01/27/2023 3:04 PMPerformed by: Rubin Santoszed by: Tatianna Pamler MD The ECG was interpreted by ED physician. This ECG was compared with previous ECG(s).The ECG is interpreted as possible coarse A-fib and atrial flutter. Rate is normal rate. Heart rate is 65 BPM.Conduction: conduction normal. ST segments abnormal. T waves abnormal. [place] is normal. Other findings: no other findings. Clinical Impression: abnormal ECGECG reviewed and does not meet STEMI criteria. Lab Interpretation Abnormal (test code = 48005-2) [facility] [id number] 15:04:25 Test Item Value Reference Range Interpretation Comments HILLARY (test code = HILLARY) Rubin Sen Apfel 01/27/2023 3:19 PMECG/EKG Interpretation Date/Time: 01/27/2023 3:04 PMPerformed by: Rubin Santoszed by: Tatianna Palmer MD The ECG was interpreted by ED physician. This ECG was compared with previous ECG(s).The ECG is interpreted as possible coarse A-fib and atrial flutter. Rate is normal rate. Heart rate is 65 BPM.Conduction: conduction normal. ST segments abnormal. T waves abnormal. [place] is normal. Other findings: no other findings. Clinical Impression: abnormal ECGECG reviewed and does not meet STEMI criteria. Lab Interpretation Abnormal (test code = 41649-5) [facility] [id number] 15:04:25 Test Item Value Reference Range Interpretation Comments HILLARY (test code = HILLARY) Rubinlisbeth Chavezas Apfel 01/27/2023 3:19 PMECG/EKG Interpretation Date/Time: 01/27/2023 3:04 PMPerformed by: Rubin Villela by: Tatianna Palmer MD The ECG was interpreted by ED physician. This ECG was compared with previous ECG(s).The ECG is interpreted as possible coarse A-fib and atrial flutter. Rate is normal rate. Heart rate is 65 BPM.Conduction: conduction normal. ST segments abnormal. T waves abnormal. [place] is normal. Other findings: no other findings. Clinical Impression: abnormal ECGECG reviewed and does not meet STEMI criteria. Lab Interpretation Abnormal (test code = 83685-3) [facility] Center[facility]-[id number] 14:56:37 Test Item Value Reference Range Interpretation Comments D-DIMER QUANTITATIVE (BEAKER) 0.43 MG/L FEU <0.50 (test code = 671) Intended Use: The D-Dimer Assay can be used to aid in the diagnosis of Deep Vein Thrombosis (DVT) and Pulmonary Embolism Disease (PED).In patients with low pre- test probability, various studies concerning STA Liatest D-dimer test have reported that with a cutoff value of 0.50 MG/L FEU, the Negative Predictive Value (NPV) regarding the exclusion of thrombosis is within 95-100% range. [id number] 14:54:29 Test Item Value Reference Range Interpretation Comments PROTIME (BEAKER) (test code = 16.0 seconds 11.9-14.2 H 759) INR (BEAKER) (test code = 370) 1.36 <=5.90 PARTIAL THROMBOPLASTIN TIME 29.4 seconds 22.5-36.0 (BEAKER) (test code = 760) RECOMMENDED COUMADIN/WARFARIN INR THERAPY RANGESSTANDARD DOSE: 2.0 - 3.0 Includes: PROPHYLAXIS for venous thrombosis, systemic embolization; TREATMENT for venous thrombosis and/or pulmonary embolus.HIGH RISK: Target INR is 2.5-3.5 for patients with mechanical heart valves.[id number] 18:36:12 Test Item Value Reference Range Interpretation Comments D-DIMER QUANTITATIVE (BEAKER) 0.35 MG/L FEU <0.50 (test code = 671) Intended Use: The D-Dimer Assay can be used to aid in the diagnosis of Deep Vein Thrombosis (DVT) and Pulmonary Embolism Disease (PED).In patients with low pre- test probability, various studies concerning STA Liatest D-dimer test have reported that with a cutoff value of 0.50 MG/L FEU, the Negative Predictive Value (NPV) regarding the exclusion of thrombosis is within 95-100% range.B-TYPE NATRIURETIC FACTOR (BNP)2023-01-23 17:32:15 Test Item Value Reference Range Interpretation Comments B-TYPE NATRIURETIC PEPTIDE (BEAKER) 13 pg/mL 0-100 (test code = 700) [employer] ID - ADMINHIGH SENSITIVITY TROPONIN [id number] 17:30:35 Test Item Value Reference Range Interpretation Comments HIGH SENSITIVITY TROPONIN I (test < pg/ml <=35 code = 1243436) As[employer]er [employer] ID - BSThe HAND PROFILER STAT High Sensitivity Troponin-I results should be used in conjunctionwith other diagnostic information such as ECG, clinical observations and information, and patient symptoms to aid in the diagnosis of MT.COMPREHENSIVE METABOLIC [id number] 17:23:46 Test Item Value Reference Range Interpretation Comments TOTAL PROTEIN 7.7 gm/dL 6.0-8.3 Specimen moder ately (BEAKER) (test hemolyzed code = 770) ALBUMIN (BEAKER) 4.2 g/dL 3.5-5.0 Specimen mo derately (test code = 1145) hemolyzed ALKALINE 108 U/L 40-150 PHOSPHATASE (BEAKER) (test code = 346) BILIRUBIN TOTAL 0.4 mg/dL 0.2-1.2 Specimen mod erately (BEAKER) (test hemolyzed code = 377) SODIUM (BEAKER) 139 meq/L 136-145 (test code = 381) POTASSIUM (BEAKER) 4.2 meq/L 3.5-5.1 Specimen moderately (test code = 379) hemolyzed CHLORIDE (BEAKER) 106 meq/L 98-107 (test code = 382) CO2 (BEAKER) (test 25 meq/L 22-29 code = 355) BLOOD UREA 11 mg/dL 7-21 NITROGEN (BEAKER) (test code = 354) CREATININE 0.93 mg/dL 0.57-1.25 Specimen modera tely (BEAKER) (test hemolyzed code = 358) GLUCOSE RANDOM 92 mg/dL 70-105 (BEAKER) (test code = 652) CALCIUM (BEAKER) 10.0 mg/dL 8.4-10.2 (test code = 697) AST (SGOT) 38 U/L 5-34 H Specimen modera tely (BEAKER) (test hemolyzed code = 353) ALT (SGPT) 29 U/L 6-55 Specimen modera tely (BEAKER) (test hemolyzed code = 347) EGFR (BEAKER) 118 Interpretatio n of eGFR (test code = 1092) mL/min/1.[address] age Description sq m Result G1 Margaret l or high >=90 G2 Mildly decreased 60-89 G3a Mildl y to moderately 45-5 9 G3b Moderately to s everely 30-44 G4 Severl y decreased 15-29 G5 Kidney failure <15Reported eGF R is based on the CKD-EPI 2020 equation that d oes not use a race coefficientEsti mated GFR is not as accur ate as Creatinine Yojana mau in predicting glom erular filtration rate . Estimated GFR is not appl icable for dialysis patien ts Assembler [employer] ID - BSCBC W/PLT COUNT & AUTO [id number] 17:03:10 Test Item Value Reference Range Interpretation Comments WHITE BLOOD CELL COUNT (BEAKER) 9.7 K/ L 3.5-10.5 (test code = 775) RED BLOOD CELL COUNT (BEAKER) 4.99 M/ L 4.63-6.08 (test code = 761) HEMOGLOBIN (BEAKER) (test code = 12.8 GM/DL 13.7-17.5 L 410) HEMATOCRIT (BEAKER) (test code = 39.1 % 40.1-51.0 L 411) MEAN CORPUSCULAR VOLUME (BEAKER) 78 fL 79-92 L (test code = 753) MEAN CORPUSCULAR HEMOGLOBIN 25.7 pg 25.7-32.2 (BEAKER) (test code = 751) MEAN CORPUSCULAR HEMOGLOBIN CONC 32.7 GM/DL 32.3-36.5 (BEAKER) (test code = 752) RED CELL DISTRIBUTION WIDTH 17.1 % 11.6-14.4 H (BEAKER) (test code = 412) PLATELET COUNT (BEAKER) (test 300 K/CU MM 150-450 code = 756) MEAN PLATELET VOLUME (BEAKER) 8.8 fL 9.4-12.4 L (test code = 754) NUCLEATED RED BLOOD CELLS 0 /100 WBC 0-0 (BEAKER) (test code = 413) NEUTROPHILS RELATIVE PERCENT 67 % (BEAKER) (test code = 429) LYMPHOCYTES RELATIVE PERCENT 26 % (BEAKER) (test code = 430) MONOCYTES RELATIVE PERCENT 6 % (BEAKER) (test code = 431) EOSINOPHILS RELATIVE PERCENT 1 % (BEAKER) (test code = 432) BASOPHILS RELATIVE PERCENT 0 % (BEAKER) (test code = 437) NEUTROPHILS ABSOLUTE COUNT 6.51 K/ L 1.78-5.38 H (BEAKER) (test code = 670) LYMPHOCYTES ABSOLUTE COUNT 2.47 K/ L 1.32-3.57 (BEAKER) (test code = 414) MONOCYTES ABSOLUTE COUNT (BEAKER) 0.56 K/ L 0.30-0.82 (test code = 415) EOSINOPHILS ABSOLUTE COUNT 0.09 K/ L 0.04-0.54 (BEAKER) (test code = 416) BASOPHILS ABSOLUTE COUNT (BEAKER) 0.04 K/ L 0.01-0.08 (test code = 417) IMMATURE GRANULOCYTES-RELATIVE 0.30 % 0.00-1.00 PERCENT (BEAKER) (test code = 2801) RAD, CHEST, 2 [id number] 15:42:00Reason for exam:->SHORTNESS OF BREATHReason for exam:->CHEST PAIN [facility] 1995 Sex: MFINAL REPORT CHEST, PA AND LATERAL. HISTORY: Shortness of breath, chest pain. COMPARISON: None available. DISCUSSION: The trachea is midline. The lungs are symmetrically expanded without evidence of focal consolidation, pneumothorax, or significant pleural effusion. The cardiomediastinal silhouette and pulmonary vasculature are within normal limits. Extensive posterior thoracolumbar fusion hardware noted. No acute osseous abnormalities identified. The soft tissues are unremarkable. IMPRESSION: No acute cardiopulmonary process identified. Signed: Ish Pitt MDReport Verified Date/Time: 01/23/2023 15:42:51 OSE BEDSIDE [id number] 12:55:00 Test Item Value Reference Range Interpretation Comments GLUCOSE BEDSIDE TESTING (test code = 74 mg/dL 70-110 N GLUBED) GLUCOSE BEDSIDE [id number] 08:48:00 Test Item Value Reference Range Interpretation Comments GLUCOSE BEDSIDE TESTING (test code = 80 mg/dL 70-110 N GLUBED) GLYCOSYLATED HEMOGLOBIN [id number] 06:30:00 Test Item Value Reference Range Interpretation Comments GLYCOSYLATED HEMOGLOBIN (HA1C) < 3.8 % A1C 0.0-5.7 N (test code = GLYHGB) ESTIMATED AVERAGE GLUCOSE (test 62 MG/DLest code = EAG) LIPID PROFILE (CORONARY RISK)2023-01-21 05:30:00 Test Item Value Reference Range Interpretation Comments TRIGLYCERIDES (test 161 MG/DL 0-150 H code = TRIG) CHOLESTEROL (test 120 MG/DL 133-200 L code = CHOL) CHOLESTEROL/HDL 2.86 RATIO See_Comment RISK ASSOCIA KATERIN WITH RATIO (test code = CHOL/HDL RATIOS: RISK CHOLHDL) MALE FEMALE1/2 AVERAGE 3.43 3.27AVERAG E 4.97 4.442X AVERAGE 9.55 7.053X AVERAGE 23.39 11.04 NOTE THAT THE REFERENCE VALUE IS RELATED TO RISK LEVELS ASRECOMMENDED B Y THE [facility] . [Automated mess age] The system which [employer] nerated this result tra nsmitted reference range : 0-. The reference range was not used to interpr et this result as normal/abnormal . HDL CHOLESTEROL 42 MG/DL 40-59 N (test code = HDL) NON-HDL CHOLESTEROL 78 mg/dL <130 (test code = NHDL) LIPOPROTEIN LDL 62 MG/DL 0-129 N <100 OPTIMAL 100 - 129 (test code = LDL) NEAR OPTIM AL/ABOVE [id number] - 15 9 [id number] - 189 HIGH>OR= 190 VE RY HIGHNOTE THAT G UIDELINES ARE PROVIDED BY NATIONAL CHOLESTEROLEDUC ATION PROGRAM ADULT T REATMENT PANEL III LDL/HDL (test code 1.47 Ratio See_Comment L [Automat ed message] The = LDL/HDL) system which [employer] nerated this result tra nsmitted reference range : 1.48-3.22 Avg. The reference range was not used to interpr et this result as normal/abnormal . TROP-I HIGH [id number] 05:16:00 Test Item Value Reference Range Interpretation Comments TROP-I HIGH 3.6 ng/L 0-78 N CAUTION: Units of the SENSITIVITY (test current te st methodology code = TROPIHS) (ng/L) diffe rfrom the prior test meth odology (ng/mL) by a fa ctor of 1000. 99t h Percentile Uppe r Reference Limit (URL):Fem ales: 54 ng/LMales: 79 n g/L In order to distin guish acute elevations of h igh sensitivitytrop onin from other clinical conditions, the FourthUnive rsal Definition of M yocardial Infarction stressesclinica l assessment and the demonstration o f a rise and/orfall in s erial troponin result s above the URL. Results fr om different metho dologies should not be c omparedto one another as quantitative re sults and URLs may varyby method. Completed by Nursing: [id number] 23:28:00 Test Item Value Reference Range Interpretation Comments D-DIMER (test <215 ng/mLFEU 215-500 L THROMBOSIS AN D/OR PULMONARY code = EMBOLISM AND TH E CLINICAL DDIMER) CUT-OFF VALUE F OR EXCLUSION (500 ng/mL FEU) OF THESE CONDITIONSIS VA LIDATED BY THE MANUFACTURE R OF THE METHOD. A NEGAT GERARD D-DIMER RESULT WHEN COM BINED WITH A CLINICALASSESSM ENT OF LOW PRETEST PROBABI LITY HAS BEEN SHOWN TO H AVEA HIGH NEGATIVE PREDIC TIVE VALUE OF DVT OR PE. D -DIMER VALUES >500 ng/ mL FEU ARE NOT DIAGNOSTIC FOR DVT, PEor DIC WITHOU T OTHER CONFIRMATORY TE STS AND APPROPRIATECLIN ICAL EUALUATIONS. GLUCOSE BEDSIDE [id number] 20:25:00 Test Item Value Reference Range Interpretation Comments GLUCOSE BEDSIDE TESTING (test code = 84 mg/dL 70-110 N GLUBED) TROP-I HIGH [id number] 19:17:00 Test Item Value Reference Range Interpretation Comments TROP-I HIGH 4.1 ng/L 0-78 N CAUTION: Units of the SENSITIVITY (test current te st methodology code = TROPIHS) (ng/L) diffe rfrom the prior test meth odology (ng/mL) by a fa ctor of 1000. 99t h Percentile Uppe r Reference Limit (URL):Fem ales: 54 ng/LMales: 79 n g/L In order to distin guish acute elevations of h igh sensitivitytrop onin from other clinical conditions, the FourthUnive rsal Definition of M yocardial Infarction stressesclinica l assessment and the demonstration o f a rise and/orfall in s erial troponin result s above the URL. Results fr om different metho dologies should not be c omparedto one another as quantitative re sults and URLs may varyby method. Completed by Nursing: NOCOMPREHENSIVE METABOLIC [id number] 16:24:00 Test Item Value Reference Range Interpretation Comments SODIUM (test code 140 mmol/L 134-147 N = NA) POTASSIUM (test 3.7 mmol/L 3.4-5.0 N code = K) CHLORIDE (test 105 mmol/L 100-108 N code = CL) CARBON DIOXIDE 27 mmol/L 21-32 N (test code = CO2) ANION GAP (test 8.0 GAP calc 4.0-15.0 N code = GAP) GLUCOSE (test code 94 MG/DL 70-110 N = GLU) BLOOD UREA 11 MG/DL 7-18 N NITROGEN (test code = BUN) GLOMERULAR >=60 max >60 The Glomerular FILTRATION RATE estimate estGFR Filtratio n Rate is a (test code = GFR) calculated parameterbased on serum Creatinin e, patient age and sex. GFR valuesless than 60 mL/min/1.73 square meters are yi cative ofChronic Kidne y Disease. Values less than 15 mL/min/1.73squa re meters indicate Kidney failure. The calculation for GFR is based on the CK D-EPI (2020) calculat ion. This formulais race indifferent and is the recommended formula for GFR by the National Kidney Foundation for Adults.The GFR will not calculate i f the sex is unknown or if thepatient's ag e is <18 years. CREATININE (test 0.9 MG/DL 0.8-1.3 N code = CREAT) TOTAL PROTEIN 7.7 G/DL 6.4-8.2 N (test code = PROT) ALBUMIN (test code 3.9 G/DL 3.4-5.0 N = ALB) GLOBULIN (test 3.8 GM/dL code = GLOB) ALBUMIN/GLOBULIN 1.0 RATIO 1.2-2.2 L RATIO (test code = A/G) CALCIUM (test code 9.8 MG/DL 8.5-10.1 N = CA) BILIRUBIN TOTAL 0.40 MG/DL 0.2-1.2 N (test code = BILT) SGOT/AST (test 20 Unit/L 15-37 N code = AST) SGPT/ALT (test 37 Unit/L 12-78 N code = ALT) ALKALINE 111 Unit/L 50-136 N PHOSPHATASE TOTAL (test code = ALKP) RULE OUT MT [id number] 16:24:00 Test Item Value Reference Range Interpretation Comments CREATINE KINASE 80 Unit/L 26-192 N (CK) (test code = CK) TROP-I HIGH < 3.0 ng/L 0-78 N CAUTION: Units of the SENSITIVITY (test current te st methodology code = TROPIHS) (ng/L) diffe rfrom the prior test meth odology (ng/mL) by a fa ctor of 1000. 9 9th Percentile Uppe r Reference Limit (URL):Females: 54 ng/LMales: 79 n g/L In order to distin guish acute elevation s of high sensitivitytrop onin from other clinical conditions, the FourthUniversal Definition of M yocardial Infarction stressesclinica l assessment and the demonstration o f a rise and/orfall in s erial troponin result s above the URL. Result s from different metho dologies should not be c omparedto one another as quantitative re sults and URLs may varyby method. NT PRO-BRAIN NATRIURETIC [id number] 16:24:00 Test Item Value Reference Range Interpretation Comments NT PRO-BRAIN NATRIURETIC PEPTI 122 PG/ML 0-100 H (test code = PROBNP) CBC W/AUTO [id number] 15:44:00 Test Item Value Reference Range Interpretation Comments WHITE BLOOD CELL (test code = 10.1 K/mm3 3.5-11.0 N WBC) RED BLOOD CELL (test code = 5.22 M/mm3 4.70-6.10 N RBC) HEMOGLOBIN (test code = HGB) 13.4 G/DL 12.3-15.9 N HEMATOCRIT (test code = HCT) 41.6 % 35.8-46.7 N MEAN CELL VOLUME (test code = 79.7 Fl 86.3-98.9 L MCV) MEAN CELL HGB (test code = MCH) 25.7 pg 28.9-34.4 L MEAN CELL HGB CONCETRATION 32.2 G/DL 32.1-34.5 N (test code = MCHC) RED CELL DISTRIBUTION WIDTH 17.8 SD 11.5-14.5 H (test code = RDW) PLATELET COUNT (test code = 280 K/mm3 150-450 N PLT) MEAN PLATELET VOLUME (test code 8.80 fL 7.0-9.6 N = MPV) NEUTROPHIL % (test code = NT%) 75.8 % 40-76 N IMMATURE GRANULOCYTE % (test 0.3 % 0.0-5.0 N code = IG%) LYMPHOCYTE % (test code = LY%) 19.0 % 20.5-51.1 L MONOCYTE % (test code = MO%) 4.5 % 1.7-9.3 N EOSINOPHIL % (test code = EO%) 0.1 % 0.0-6.0 N BASOPHIL % (test code = BA%) 0.3 % 0.0-2.0 N NUCLEATED RBC % (test code = 0.0 /100WBC% 0.0-1.0 N NRBC%) NEUTROPHIL # (test code = NT#) 7.6 K/mm3 1.8-7.6 N IMMATURE GRANULOCYTE # (test 0.03 x10 3/uL 0.00-0.03 N code = IG#) LYMPHOCYTE # (test code = LY#) 1.9 K/mm3 0.6-3.0 N MONOCYTE # (test code = MO#) 0.5 K/mm3 0.2-1.5 N EOSINOPHIL # (test code = EO#) 0.0 K/mm3 0.0-0.4 N BASOPHIL # (test code = BA#) 0.0 K/mm3 0.0-0.2 N NUCLEATED RBC # (test code = 0.0 K/mm3 0.00-0.01 N NRBC#) MANUAL DIFF REQUIRED (test code NO DIFF/SCN CRITERIA = MDIFF) PROTHROMBIN [id number] 15:43:00 Test Item Value Reference Range Interpretation Comments PT PATIENT (test 12.0 SECONDS 9.3-12.9 N code = PTP) INTERNATIONAL NORMAL 1.08 INR Unit 0.8-1.2 N TARGE T INR BY RATIO (test code = INDICATIO N Indication INR) INR1. Prophylax is of venous thrombos is 2.0 - 3.0 (orthoped ic surgery), Proph ylaxis of venous throm bosis (other than hig h-risk surgery), Treat ment of Deep Vein Thrombosis/Pulm onary Embolism, Preve ntion of systemic emb olism - Tissue heart va lves, Acute Myocardia l Infarction (to prevent systemic emboli sm), Valvular heart disease, Acute Myocardial Infa rction (to prevent sys temic embolism), Valv ular heart disease, Atrial Fibrillation, Bileaflet mecha nical valve in aortic position.2. Mec hanical prosthetic valv es (high risk), 2. 5 - 3.5 Presence of Lup us Anticoagulant o r Antiphospholipi d Antibodies, Pre vention of systemic emb olism - Acute Myocardia l Infarction (to prevent recurrent infar ct). - XR CHEST 2 [id number] 14:18:00 [facility]: SYDNI HARRIS : 1995 [facility]: [facility] 1995 Age[facility]S: 27 / M [address] #: [id number] Loc: [place] [address] Phys: Otis Bhatt MD Acct: [id number] Dis Date: Status: REG ER PHONE #: [phone] Exam Date: 01/20/2023 1405 FAX #: Reason: chest pain EXAMS: CPT: [id number] XR CHEST 2 V 62416 Fluoro Time: DAP (Gy m2): Air Kerma (mGy): EXAMINATION: - XR CHEST 2 V CLINICAL INDICATION: Male,27 years year old with chest pain COMPARISON: None. LOCATION:T18 FINDINGS: 2 view(s) of the chest submitted. Support Devices: None. Heart: Cardiac silhouette is normal in size. Mediastinum: Mediastinalcontours are normal. Lungs: Pulmonary vessels are normal in size. Lungs are well aerated and clear. Pleura: No pleural effusion is identified. No pneumothorax is present. Bones: Spinal fixator rods in the visualized thoracic and lumbar spine. IMPRESSION: No acute cardiopulmonary disease. at 1418 Reported and signed by: Pamella Dinh MD C C: Otis Bhatt MD PAGE 1 Signed Report Name: SYDNI HARRIS [place] : 1995 Age/S: 27 / M [address] #: [id number] Loc: [place] [address] Phys: Otis Bhatt MD Acct: [id number] Dis Date: Status: REG ER PHONE #: [phone] Exam Date: 01/20/2023 1405 FAX #: Reason: chest pain EXAMS: CPT: [id number] XR CHEST 2 V 63438 Fluoro Time: DAP (Gy m2): Air Kerma (mGy): (Continued) Technologist: Meghana Nicolas Trnscb Date/Time: 01/20/2023 (4706) [id number] Orig Print D/T: S: 01/20/2023 (1518) PAGE 2 [facility]2022-11-28 19:11:00 Test Item Value Reference Range Interpretation Comments POC glucose (test 93 mg/dL 65-99 As[employer]er [employer] N sahara: Laurie code = 79203-5) AshAmivice ID: [id number] able: RN Notified [facility]2022-11-28 19:11:00 Test Item Value Reference Range Interpretation Comments POC glucose (test 93 mg/dL 65-99 Assembler [employer] N sahara: Benson code = 11805-8) Marvinvice ID: [id number] able: RN Notified [facility]2022-11-28 19:11:00 Test Item Value Reference Range Interpretation Comments POC glucose (test 93 mg/dL 65-99 Assembler [employer] N sahara: Laurie code = 50857-9) AshcathyDevice ID: [id number] able: RN Notified [facility]2022-11-28 19:11:00 Test Item Value Reference Range Interpretation Comments POC glucose (test 93 mg/dL 65-99 Assembler [employer] N sahara: Benson code = 32518-6) AshacthyDevice ID: [id number] able: RN Notified [facility]2022-11-28 19:11:00 Test Item Value Reference Range Interpretation Comments POC glucose (test 93 mg/dL 65-99 Assembler [employer] N sahara: Benson code = 15176-8) Marvinvice ID: [id number] able: RN Notified [facility]2022-11-28 19:11:00 Test Item Value Reference Range Interpretation Comments POC glucose (test 93 mg/dL 65-99 Assembler [employer] N sahara: Laurie code = 00411-7) Marvinvice ID: [id number] able: RN Notified [facility]2022-11-28 19:11:00 Test Item Value Reference Range Interpretation Comments POC glucose (test 93 mg/dL 65-99 Assembler [employer] N sahara: Laurie code = 51876-7) Geremias ID: [id number] able: RN Notified [facility] [id number] 19:11:00 Test Item Value Reference Range Interpretation Comments POC glucose (test 93 mg/dL 65-99 Assembler [employer] N sahara: Benson code = 89751-2) Marvinvice ID: [id number] able: RN Notified [facility] [id number] 19:11:00 Test Item Value Reference Range Interpretation Comments POC glucose (test 93 mg/dL 65-99 Assembler [employer] N sahara: Laurie code = 28945-5) Geremias ID: [id number] able: RN Notified [facility] [id number] 19:11:00 Test Item Value Reference Range Interpretation Comments POC glucose (test 93 mg/dL 65-99 Assembler [employer] N sahara: Laurie code = 49035-7) Geremias ID: [id number] able: RN Notified [facility]2022-11-28 19:11:00 Test Item Value Reference Range Interpretation Comments POC glucose (test 93 mg/dL 65-99 Assembler [employer] N sahara: Laurie code = 42425-6) Geremias ID: [id number] able: RN Notified [facility] [id number] 19:11:00 Test Item Value Reference Range Interpretation Comments POC glucose (test 93 mg/dL 65-99 Assembler [employer] N sahara: Benson code = 94691-4) Marvinvickindra ID: [id number] able: RN Notified [facility] [id number] 19:11:00 Test Item Value Reference Range Interpretation Comments POC glucose (test 93 mg/dL 65-99 Assembler [employer] N sahara: Benson code = 16477-5) Geremias ID: [id number] able: RN Notified [facility] [id number] 19:11:00 Test Item Value Reference Range Interpretation Comments POC glucose (test 93 mg/dL 65-99 Assembler [employer] N sahara: Benson code = 26348-3) Marvinvickindra ID: [id number] able: RN Notified [facility]2022-11-28 19:11:00 Test Item Value Reference Range Interpretation Comments POC glucose (test 93 mg/dL 65-99 Assembler [employer] N sahara: Laurie code = 70787-9) Zie ID: [id number] able: RN Notified [facility]2022-11-28 19:11:00 Test Item Value Reference Range Interpretation Comments POC glucose (test 93 mg/dL 65-99 Assembler [employer] N sahara: Laurie code = 51883-1) Zie ID: [id number] able: RN Notified [facility]2022-11-28 19:11:00 Test Item Value Reference Range Interpretation Comments POC glucose (test 93 mg/dL 65-99 Assembler [employer] N sahara: Laurie code = 48656-1) Zie ID: [id number] able: RN Notified [address]2022-11-28 04:23:33 Test Item Value Reference Range Interpretation Comments Ventricular rate (test 56 code = 253) QRSD interval (test 90 code = 260) QT interval (test code 402 = 264) QTC interval (test 387 code = 265) QRS axis 1 (test code 52 = 268) T wave axis (test code 70 = 270) EKG impression (test Atrial fibrillation code = 273) with slow ventricular response with ventricular escape complexes-Abnormal ECG-In automated comparison with ECG of 24-AUG-2022 00:17,-Sinus rhythm is now with ventricular escape complexes-Electronicall y Signed By Jamee Pineda MD ([id number]) on 08/25/2022 10:23:[address]2022-11-28 04:23:33 Test Item Value Reference Range Interpretation Comments Ventricular rate (test 56 code = 253) QRSD interval (test 90 code = 260) QT interval (test code 402 = 264) QTC interval (test 387 code = 265) QRS axis 1 (test code 52 = 268) T wave axis (test code 70 = 270) EKG impression (test Atrial fibrillation code = 273) with slow ventricular response with ventricular escape complexes-Abnormal ECG-In automated comparison with ECG of 24-AUG-2022 00:17,-Sinus rhythm is now with ventricular escape complexes-Electronicall y Signed By Jamee Pineda MD ([id number]) on 08/25/2022 10:23:27 PM [address]2022-11-28 04:23:33 Test Item Value Reference Range Interpretation Comments Ventricular rate (test 56 code = 253) QRSD interval (test 90 code = 260) QT interval (test code 402 = 264) QTC interval (test 387 code = 265) QRS axis 1 (test code 52 = 268) T wave axis (test code 70 = 270) EKG impression (test Atrial fibrillation code = 273) with slow ventricular response with ventricular escape complexes-Abnormal ECG-In automated comparison with ECG of 24-AUG-2022 00:17,-Sinus rhythm is now with ventricular escape complexes-Electronicall y Signed By Jamee Pineda MD ([id number]) on 08/25/2022 10:23:27 PM [address]2022-11-28 04:23:33 Test Item Value Reference Range Interpretation Comments Ventricular rate (test 56 code = 253) QRSD interval (test 90 code = 260) QT interval (test code 402 = 264) QTC interval (test 387 code = 265) QRS axis 1 (test code 52 = 268) T wave axis (test code 70 = 270) EKG impression (test Atrial fibrillation code = 273) with slow ventricular response with ventricular escape complexes-Abnormal ECG-In automated comparison with ECG of 24-AUG-2022 00:17,-Sinus rhythm is now with ventricular escape complexes-Electronicall y Signed By Jamee Pineda MD ([id number]) on 08/25/2022 10:23:27 PM [address]2022-11-28 04:23:33 Test Item Value Reference Range Interpretation Comments Ventricular rate (test 56 code = 253) QRSD interval (test 90 code = 260) QT interval (test code 402 = 264) QTC interval (test 387 code = 265) QRS axis 1 (test code 52 = 268) T wave axis (test code 70 = 270) EKG impression (test Atrial fibrillation code = 273) with slow ventricular response with ventricular escape complexes-Abnormal ECG-In automated comparison with ECG of 24-AUG-2022 00:17,-Sinus rhythm is now with ventricular escape complexes-Electronicall y Signed By Jamee Pineda MD ([id number]) on 08/25/2022 10:23:27 PM [address]2022-11-28 04:23:33 Test Item Value Reference Range Interpretation Comments Ventricular rate (test 56 code = 253) QRSD interval (test 90 code = 260) QT interval (test code 402 = 264) QTC interval (test 387 code = 265) QRS axis 1 (test code 52 = 268) T wave axis (test code 70 = 270) EKG impression (test Atrial fibrillation code = 273) with slow ventricular response with ventricular escape complexes-Abnormal ECG-In automated comparison with ECG of 24-AUG-2022 00:17,-Sinus rhythm is now with ventricular escape complexes-Electronicall y Signed By Jamee Pineda MD ([id number]) on 08/25/2022 10:23:27 PM [address]2022-11-28 04:23:33 Test Item Value Reference Range Interpretation Comments Ventricular rate (test 56 code = 253) QRSD interval (test 90 code = 260) QT interval (test code 402 = 264) QTC interval (test 387 code = 265) QRS axis 1 (test code 52 = 268) T wave axis (test code 70 = 270) EKG impression (test Atrial fibrillation code = 273) with slow ventricular response with ventricular escape complexes-Abnormal ECG-In automated comparison with ECG of 24-AUG-2022 00:17,-Sinus rhythm is now with ventricular escape complexes-Electronicall y Signed By Jamee Pineda MD ([id number]) on 08/25/2022 10:23:27 PM [address]2022-11-28 04:23:33 Test Item Value Reference Range Interpretation Comments Ventricular rate (test 56 code = 253) QRSD interval (test 90 code = 260) QT interval (test code 402 = 264) QTC interval (test 387 code = 265) QRS axis 1 (test code 52 = 268) T wave axis (test code 70 = 270) EKG impression (test Atrial fibrillation code = 273) with slow ventricular response with ventricular escape complexes-Abnormal ECG-In automated comparison with ECG of 24-AUG-2022 00:17,-Sinus rhythm is now with ventricular escape complexes-Electronicall y Signed By Jamee iPneda MD ([id number]) on 08/25/2022 10:23:27 PM [address]2022-11-28 04:23:33 Test Item Value Reference Range Interpretation Comments Ventricular rate (test 56 code = 253) QRSD interval (test 90 code = 260) QT interval (test code 402 = 264) QTC interval (test 387 code = 265) QRS axis 1 (test code 52 = 268) T wave axis (test code 70 = 270) EKG impression (test Atrial fibrillation code = 273) with slow ventricular response with ventricular escape complexes-Abnormal ECG-In automated comparison with ECG of 24-AUG-2022 00:17,-Sinus rhythm is now with ventricular escape complexes-Electronicall y Signed By Jamee Pineda MD ([id number]) on 08/25/2022 10:23:27 PM [address]2022-11-28 04:23:33 Test Item Value Reference Range Interpretation Comments Ventricular rate (test 56 code = 253) QRSD interval (test 90 code = 260) QT interval (test code 402 = 264) QTC interval (test 387 code = 265) QRS axis 1 (test code 52 = 268) T wave axis (test code 70 = 270) EKG impression (test Atrial fibrillation code = 273) with slow ventricular response with ventricular escape complexes-Abnormal ECG-In automated comparison with ECG of 24-AUG-2022 00:17,-Sinus rhythm is now with ventricular escape complexes-Electronicall y Signed By Jamee Pineda MD ([id number]) on 08/25/2022 10:23:27 PM [address]2022-11-28 04:23:33 Test Item Value Reference Range Interpretation Comments Ventricular rate (test 56 code = 253) QRSD interval (test 90 code = 260) QT interval (test code 402 = 264) QTC interval (test 387 code = 265) QRS axis 1 (test code 52 = 268) T wave axis (test code 70 = 270) EKG impression (test Atrial fibrillation code = 273) with slow ventricular response with ventricular escape complexes-Abnormal ECG-In automated comparison with ECG of 24-AUG-2022 00:17,-Sinus rhythm is now with ventricular escape complexes-Electronicall y Signed By Jamee Pineda MD ([id number]) on 08/25/2022 10:23:27 PM [address]2022-11-28 04:23:33 Test Item Value Reference Range Interpretation Comments Ventricular rate (test 56 code = 253) QRSD interval (test 90 code = 260) QT interval (test code 402 = 264) QTC interval (test 387 code = 265) QRS axis 1 (test code 52 = 268) T wave axis (test code 70 = 270) EKG impression (test Atrial fibrillation code = 273) with slow ventricular response with ventricular escape complexes-Abnormal ECG-In automated comparison with ECG of 24-AUG-2022 00:17,-Sinus rhythm is now with ventricular escape complexes-Electronicall y Signed By Jamee Pineda MD ([id number]) on 08/25/2022 10:23:27 PM [address]2022-11-28 04:23:33 Test Item Value Reference Range Interpretation Comments Ventricular rate (test 56 code = 253) QRSD interval (test 90 code = 260) QT interval (test code 402 = 264) QTC interval (test 387 code = 265) QRS axis 1 (test code 52 = 268) T wave axis (test code 70 = 270) EKG impression (test Atrial fibrillation code = 273) with slow ventricular response with ventricular escape complexes-Abnormal ECG-In automated comparison with ECG of 24-AUG-2022 00:17,-Sinus rhythm is now with ventricular escape complexes-Electronicall y Signed By Jamee Pineda MD ([id number]) on 08/25/2022 10:23:27 PM [address]2022-11-28 04:23:33 Test Item Value Reference Range Interpretation Comments Ventricular rate (test 56 code = 253) QRSD interval (test 90 code = 260) QT interval (test code 402 = 264) QTC interval (test 387 code = 265) QRS axis 1 (test code 52 = 268) T wave axis (test code 70 = 270) EKG impression (test Atrial fibrillation code = 273) with slow ventricular response with ventricular escape complexes-Abnormal ECG-In automated comparison with ECG of 24-AUG-2022 00:17,-Sinus rhythm is now with ventricular escape complexes-Electronicall y Signed By Jamee Pineda MD ([id number]) on 08/25/2022 10:23:27 PM [address]2022-11-28 04:23:33 Test Item Value Reference Range Interpretation Comments Ventricular rate (test 56 code = 253) QRSD interval (test 90 code = 260) QT interval (test code 402 = 264) QTC interval (test 387 code = 265) QRS axis 1 (test code 52 = 268) T wave axis (test code 70 = 270) EKG impression (test Atrial fibrillation code = 273) with slow ventricular response with ventricular escape complexes-Abnormal ECG-In automated comparison with ECG of 24-AUG-2022 00:17,-Sinus rhythm is now with ventricular escape complexes-Electronicall y Signed By Jamee Pineda MD ([id number]) on 08/25/2022 10:23:27 PM [address]2022-11-28 04:23:33 Test Item Value Reference Range Interpretation Comments Ventricular rate (test 56 code = 253) QRSD interval (test 90 code = 260) QT interval (test code 402 = 264) QTC interval (test 387 code = 265) QRS axis 1 (test code 52 = 268) T wave axis (test code 70 = 270) EKG impression (test Atrial fibrillation code = 273) with slow ventricular response with ventricular escape complexes-Abnormal ECG-In automated comparison with ECG of 24-AUG-2022 00:17,-Sinus rhythm is now with ventricular escape complexes-Electronicall y Signed By Jamee Pineda MD ([id number]) on 08/25/2022 10:23:27 PM [address]2022-11-28 04:23:33 Test Item Value Reference Range Interpretation Comments Ventricular rate (test 56 code = 253) QRSD interval (test 90 code = 260) QT interval (test code 402 = 264) QTC interval (test 387 code = 265) QRS axis 1 (test code 52 = 268) T wave axis (test code 70 = 270) EKG impression (test Atrial fibrillation code = 273) with slow ventricular response with ventricular escape complexes-Abnormal ECG-In automated comparison with ECG of 24-AUG-2022 00:17,-Sinus rhythm is now with ventricular escape complexes-Electronicall y Signed By Jamee Pineda MD ([id number]) on 08/25/2022 10:23:27 PM [facility] RBC, 1 [id number] 16:30:00 Test Item Value Reference Range Interpretation Comments Product name (test code Red Blood Cells -1, = 25) Leukored Unit number (test code [id number] = [id number]) Product code (test code J0795C86 = 3092) Dispense status (test Transfused code = 24) Blood expiration date (test code = 302) Blood type code (test 5100 code = 308) Blood type (test code = O POSITIVE 1314) Compatibility (test Compatible code = 6400) [facility] [id number] 16:30:00 Test Item Value Reference Range Interpretation Comments Product name (test code Red Blood Cells -1, = 25) Leukored Unit number (test code [id number] = [id number]) Product code (test code N2262G61 = 3092) Dispense status (test Transfused code = 24) Blood expiration date (test code = 302) Blood type code (test 5100 code = 308) Blood type (test code = O POSITIVE 1314) Compatibility (test Compatible code = 6400) [facility], 1 [id number] 16:30:00 Test Item Value Reference Range Interpretation Comments Product name (test code Red Blood Cells -1, = 25) Leukored Unit number (test code [id number] = [id number]) Product code (test code Z7972D87 = 3092) Dispense status (test Transfused code = 24) Blood expiration date (test code = 302) Blood type code (test 5100 code = 308) Blood type (test code = O POSITIVE 1314) Compatibility (test Compatible code = 6400) [facility], 1 [id number] 16:30:00 Test Item Value Reference Range Interpretation Comments Product name (test code Red Blood Cells -1, = 25) Leukored Unit number (test code [id number] = [id number]) Product code (test code B2776P86 = 3092) Dispense status (test Transfused code = 24) Blood expiration date (test code = 302) Blood type code (test 5100 code = 308) Blood type (test code = O POSITIVE 1314) Compatibility (test Compatible code = 6400) [facility], 1 [id number] 16:30:00 Test Item Value Reference Range Interpretation Comments Product name (test code Red Blood Cells -1, = 25) Leukored Unit number (test code [id number] = 2926456) Product code (test code B8178R10 = 3092) Dispense status (test Transfused code = 24) Blood expiration date (test code = 302) Blood type code (test 5100 code = 308) Blood type (test code = O POSITIVE 1314) Compatibility (test Compatible code = 6400) [facility], 1 [id number] 16:30:00 Test Item Value Reference Range Interpretation Comments Product name (test code Red Blood Cells -1, = 25) Leukored Unit number (test code [id number] = [id number]) Product code (test code B2926O25 = 3092) Dispense status (test Transfused code = 24) Blood expiration date (test code = 302) Blood type code (test 5100 code = 308) Blood type (test code = O POSITIVE 1314) Compatibility (test Compatible code = 6400) [facility] [id number] 16:30:00 Test Item Value Reference Range Interpretation Comments Product name (test code Red Blood Cells -1, = 25) Leukored Unit number (test code [id number] = 9255542) Product code (test code L1120W49 = 3092) Dispense status (test Transfused code = 24) Blood expiration date (test code = 302) Blood type code (test 5100 code = 308) Blood type (test code = O POSITIVE 1314) Compatibility (test Compatible code = 6400) [facility] [id number] 16:30:00 Test Item Value Reference Range Interpretation Comments Product name (test code Red Blood Cells -1, = 25) Leukored Unit number (test code [id number] = [id number]) Product code (test code M3958P39 = 3092) Dispense status (test Transfused code = 24) Blood expiration date (test code = 302) Blood type code (test 5100 code = 308) Blood type (test code = O POSITIVE 1314) Compatibility (test Compatible code = 6400) [facility], [facility] [id number] 16:30:00 Test Item Value Reference Range Interpretation Comments Product name (test code Red Blood Cells -1, = 25) Leukored Unit number (test code [id number] = 7083741) Product code (test code Z2695S86 = 3092) Dispense status (test Transfused code = 24) Blood expiration date (test code = 302) Blood type code (test 5100 code = 308) Blood type (test code = O POSITIVE 1314) Compatibility (test Compatible code = 6400) [facility], 1 [id number] 16:30:00 Test Item Value Reference Range Interpretation Comments Product name (test code Red Blood Cells -1, = 25) Leukored Unit number (test code [id number] = 6011483) Product code (test code M2878T63 = 3092) Dispense status (test Transfused code = 24) Blood expiration date (test code = 302) Blood type code (test 5100 code = 308) Blood type (test code = O POSITIVE 1314) Compatibility (test Compatible code = 6400) [facility], 1 [id number] 16:30:00 Test Item Value Reference Range Interpretation Comments Product name (test code Red Blood Cells -1, = 25) Leukored Unit number (test code [id number] = 8584317) Product code (test code S7417E20 = 3092) Dispense status (test Transfused code = 24) Blood expiration date (test code = 302) Blood type code (test 5100 code = 308) Blood type (test code = O POSITIVE 1314) Compatibility (test Compatible code = 6400) [facility], 1 [id number] 16:30:00 Test Item Value Reference Range Interpretation Comments Product name (test code Red Blood Cells -1, = 25) Leukored Unit number (test code [id number] = 5734219) Product code (test code C4158K89 = 3092) Dispense status (test Transfused code = 24) Blood expiration date (test code = 302) Blood type code (test 5100 code = 308) Blood type (test code = O POSITIVE 1314) Compatibility (test Compatible code = 6400) [facility], 1 [id number] 16:30:00 Test Item Value Reference Range Interpretation Comments Product name (test code Red Blood Cells -1, = 25) Leukored Unit number (test code [id number] = 6417629) Product code (test code T8534B94 = 3092) Dispense status (test Transfused code = 24) Blood expiration date (test code = 302) Blood type code (test 5100 code = 308) Blood type (test code = O POSITIVE 1314) Compatibility (test Compatible code = 6400) [facility] [id number] 16:30:00 Test Item Value Reference Range Interpretation Comments Product name (test code Red Blood Cells -1, = 25) Leukored Unit number (test code [id number] = 9240877) Product code (test code U5216O74 = 3092) Dispense status (test Transfused code = 24) Blood expiration date (test code = 302) Blood type code (test 5100 code = 308) Blood type (test code = O POSITIVE 1314) Compatibility (test Compatible code = 6400) [facility], 1 [id number] 16:30:00 Test Item Value Reference Range Interpretation Comments Product name (test code Red Blood Cells -1, = 25) Leukored Unit number (test code [id number] = 4043837) Product code (test code D3484P74 = 3092) Dispense status (test Transfused code = 24) Blood expiration date (test code = 302) Blood type code (test 5100 code = 308) Blood type (test code = O POSITIVE 1314) Compatibility (test Compatible code = 6400) [facility], 1 [id number] 16:30:00 Test Item Value Reference Range Interpretation Comments Product name (test code Red Blood Cells -1, = 25) Leukored Unit number (test code [id number] = 6300997) Product code (test code M3500H75 = 3092) Dispense status (test Transfused code = 24) Blood expiration date (test code = 302) Blood type code (test 5100 code = 308) Blood type (test code = O POSITIVE 1314) Compatibility (test Compatible code = 6400) [facility] [id number] 16:30:00 Test Item Value Reference Range Interpretation Comments Product name (test code Red Blood Cells -1, = 25) Leukored Unit number (test code [id number] = 7652932) Product code (test code D5922T69 = 3092) Dispense status (test Transfused code = 24) Blood expiration date (test code = 302) Blood type code (test 5100 code = 308) Blood type (test code = O POSITIVE 1314) Compatibility (test Compatible code = 6400) [facility] [Presence] in Respiratory specimen by RAYMUNDO with probe [id number] 02:42:54 Test Item Value Reference Range Interpretation Comments SARS-CoV-2 (COVID-19) RNA Not detected [Presence] in Respiratory specimen by RAYMUNDO with probe detection (test code = 11885-4) Whether patient is employed in a Unknown healthcare setting (test code = 33767-0) Whether the patient has symptoms Unknown related to condition of interest (test code = 89492-6) Whether the patient was Unknown hospitalized for condition of interest (test code = 40404-6) Whether the patient was admitted Unknown to intensive care unit (ICU) for condition of interest (test code = 24069-0) Whether patient resides in a Unknown congregate care setting (test code = 12239-4) status (test code = Unknown 55069-9) Date and time of symptom onset Unknown (test code = 82493-8) [facility] ED Preliminary Interpretation - Not an [id number] 01:59:37 Test Item Value Reference Range Interpretation Comments HILLARY (test code = HLILARY) Servando Ty MD 08/24/2022 2:08 [facility] ED Preliminary Interpretation - Not an OrderPerformed by: Servando Ty MDAuthorized by: Servando Ty MD ECG reviewed by ED Physician in the absence of a life sciences teacher: yes Previous ECG: Previous ECG: UnavailableInterpretati on: Interpretation: abnormal Rate: ECG rate: 36 ECG rate assessment: bradycardic Rhythm: Rhythm comment: Idioventricular rhythmEctopy: Ectopy: PVCs QRS: QRS axis: Left QRS intervals: WideConduction: Conduction: abnormal Abnormal conduction: non-specific intraventricular conduction delay ST segments: ST segments: Non-specificT waves: T waves: inverted Inverted: I and aVLComments: Idioventricular rhythm with fusion complexes rate 36, nonspecific intraventricular conduction delay, nonspecific ST-T changes Lab Interpretation Abnormal (test code = 74607-9) [facility] ED Preliminary Interpretation - Not an [id number] 01:59:37 Test Item Value Reference Range Interpretation Comments HILLARY (test code = HILLARY) Servando Ty MD 08/24/2022 2:08 [facility] ED Preliminary Interpretation - Not an OrderPerformed by: Servando Ty MDAuthorized by: Servando Ty MD ECG reviewed by ED Physician in the absence of a life sciences teacher: yes Previous ECG: Previous ECG: UnavailableInterpretati on: Interpretation: abnormal Rate: ECG rate: 36 ECG rate assessment: bradycardic Rhythm: Rhythm comment: Idioventricular rhythmEctopy: Ectopy: PVCs QRS: QRS axis: Left QRS intervals: WideConduction: Conduction: abnormal Abnormal conduction: non-specific intraventricular conduction delay ST segments: ST segments: Non-specificT waves: T waves: inverted Inverted: I and aVLComments: Idioventricular rhythm with fusion complexes rate 36, nonspecific intraventricular conduction delay, nonspecific ST-T changes Lab Interpretation Abnormal (test code = 07182-8) [facility] ED Preliminary Interpretation - Not an [id number] 01:59:37 Test Item Value Reference Range Interpretation Comments HILLARY (test code = HILLARY) Servando yT MD 08/24/2022 2:08 [facility] ED Preliminary Interpretation - Not an OrderPerformed by: Servando Ty MDAuthorized by: Servando Ty MD ECG reviewed by ED Physician in the absence of a life sciences teacher: yes Previous ECG: Previous ECG: UnavailableInterpretati on: Interpretation: abnormal Rate: ECG rate: 36 ECG rate assessment: bradycardic Rhythm: Rhythm comment: Idioventricular rhythmEctopy: Ectopy: PVCs QRS: QRS axis: Left QRS intervals: WideConduction: Conduction: abnormal Abnormal conduction: non-specific intraventricular conduction delay ST segments: ST segments: Non-specificT waves: T waves: inverted Inverted: I and aVLComments: Idioventricular rhythm with fusion complexes rate 36, nonspecific intraventricular conduction delay, nonspecific ST-T changes Lab Interpretation Abnormal (test code = 49505-0) [facility] ED Preliminary Interpretation - Not an [id number] 01:59:37 Test Item Value Reference Range Interpretation Comments HILLARY (test code = HILLARY) Servando Ty MD 08/24/2022 2:08 [facility] ED Preliminary Interpretation - Not an OrderPerformed by: Servando Ty MDAuthorized by: Servando Ty MD ECG reviewed by ED Physician in the absence of a life sciences teacher: yes Previous ECG: Previous ECG: UnavailableInterpretati on: Interpretation: abnormal Rate: ECG rate: 36 ECG rate assessment: bradycardic Rhythm: Rhythm comment: Idioventricular rhythmEctopy: Ectopy: PVCs QRS: QRS axis: Left QRS intervals: WideConduction: Conduction: abnormal Abnormal conduction: non-specific intraventricular conduction delay ST segments: ST segments: Non-specificT waves: T waves: inverted Inverted: I and aVLComments: Idioventricular rhythm with fusion complexes rate 36, nonspecific intraventricular conduction delay, nonspecific ST-T changes Lab Interpretation Abnormal (test code = 93729-6) [facility] ED Preliminary Interpretation - Not an [id number] 01:59:37 Test Item Value Reference Range Interpretation Comments HILLARY (test code = HILLARY) Servando Ty MD 08/24/2022 2:08 [facility] ED Preliminary Interpretation - Not an OrderPerformed by: Servando Ty MDAuthorized by: Servando Ty MD ECG reviewed by ED Physician in the absence of a life sciences teacher: yes Previous ECG: Previous ECG: UnavailableInterpretati on: Interpretation: abnormal Rate: ECG rate: 36 ECG rate assessment: bradycardic Rhythm: Rhythm comment: Idioventricular rhythmEctopy: Ectopy: PVCs QRS: QRS axis: Left QRS intervals: WideConduction: Conduction: abnormal Abnormal conduction: non-specific intraventricular conduction delay ST segments: ST segments: Non-specificT waves: T waves: inverted Inverted: I and aVLComments: Idioventricular rhythm with fusion complexes rate 36, nonspecific intraventricular conduction delay, nonspecific ST-T changes Lab Interpretation Abnormal (test code = 01460-4) [facility] ED Preliminary Interpretation - Not an [id number] 01:59:37 Test Item Value Reference Range Interpretation Comments HILLARY (test code = HILLARY) Servando Ty MD 08/24/2022 2:08 [facility] ED Preliminary Interpretation - Not an OrderPerformed by: Servando Ty MDAuthorized by: Servando Ty MD ECG reviewed by ED Physician in the absence of a life sciences teacher: yes Previous ECG: Previous ECG: UnavailableInterpretati on: Interpretation: abnormal Rate: ECG rate: 36 ECG rate assessment: bradycardic Rhythm: Rhythm comment: Idioventricular rhythmEctopy: Ectopy: PVCs QRS: QRS axis: Left QRS intervals: WideConduction: Conduction: abnormal Abnormal conduction: non-specific intraventricular conduction delay ST segments: ST segments: Non-specificT waves: T waves: inverted Inverted: I and aVLComments: Idioventricular rhythm with fusion complexes rate 36, nonspecific intraventricular conduction delay, nonspecific ST-T changes Lab Interpretation Abnormal (test code = 85231-6) [facility] ED Preliminary Interpretation - Not an [id number] 01:59:37 Test Item Value Reference Range Interpretation Comments HILLARY (test code = HILLARY) Servando Ty MD 08/24/2022 2:08 [facility] ED Preliminary Interpretation - Not an OrderPerformed by: Servando Ty MDAuthorized by: Servando Ty MD ECG reviewed by ED Physician in the absence of a life sciences teacher: yes Previous ECG: Previous ECG: UnavailableInterpretati on: Interpretation: abnormal Rate: ECG rate: 36 ECG rate assessment: bradycardic Rhythm: Rhythm comment: Idioventricular rhythmEctopy: Ectopy: PVCs QRS: QRS axis: Left QRS intervals: WideConduction: Conduction: abnormal Abnormal conduction: non-specific intraventricular conduction delay ST segments: ST segments: Non-specificT waves: T waves: inverted Inverted: I and aVLComments: Idioventricular rhythm with fusion complexes rate 36, nonspecific intraventricular conduction delay, nonspecific ST-T changes Lab Interpretation Abnormal (test code = 60710-8) [facility] ED Preliminary Interpretation - Not an [id number] 01:59:37 Test Item Value Reference Range Interpretation Comments HILLARY (test code = HILLARY) Servando Ty MD 08/24/2022 2:08 [facility] ED Preliminary Interpretation - Not an OrderPerformed by: Servando Ty MDAuthorized by: Servando Ty MD ECG reviewed by ED Physician in the absence of a life sciences teacher: yes Previous ECG: Previous ECG: UnavailableInterpretati on: Interpretation: abnormal Rate: ECG rate: 36 ECG rate assessment: bradycardic Rhythm: Rhythm comment: Idioventricular rhythmEctopy: Ectopy: PVCs QRS: QRS axis: Left QRS intervals: WideConduction: Conduction: abnormal Abnormal conduction: non-specific intraventricular conduction delay ST segments: ST segments: Non-specificT waves: T waves: inverted Inverted: I and aVLComments: Idioventricular rhythm with fusion complexes rate 36, nonspecific intraventricular conduction delay, nonspecific ST-T changes Lab Interpretation Abnormal (test code = 42837-7) [facility] ED Preliminary Interpretation - Not an [id number] 01:59:37 Test Item Value Reference Range Interpretation Comments HILLARY (test code = HILLARY) Servando Ty MD 08/24/2022 2:08 [facility] ED Preliminary Interpretation - Not an OrderPerformed by: Servando Ty MDAuthorized by: Servando Ty MD ECG reviewed by ED Physician in the absence of a life sciences teacher: yes Previous ECG: Previous ECG: UnavailableInterpretati on: Interpretation: abnormal Rate: ECG rate: 36 ECG rate assessment: bradycardic Rhythm: Rhythm comment: Idioventricular rhythmEctopy: Ectopy: PVCs QRS: QRS axis: Left QRS intervals: WideConduction: Conduction: abnormal Abnormal conduction: non-specific intraventricular conduction delay ST segments: ST segments: Non-specificT waves: T waves: inverted Inverted: I and aVLComments: Idioventricular rhythm with fusion complexes rate 36, nonspecific intraventricular conduction delay, nonspecific ST-T changes Lab Interpretation Abnormal (test code = 49676-9) [facility] - Not an [id number] 01:59:37 Test Item Value Reference Range Interpretation Comments HILLARY (test code = HILLARY) Servando Ty MD 08/24/2022 2:08 [facility] ED Preliminary Interpretation - Not an OrderPerformed by: Servando Ty MDAuthorized by: Servando Ty MD ECG reviewed by ED Physician in the absence of a life sciences teacher: yes Previous ECG: Previous ECG: UnavailableInterpretati on: Interpretation: abnormal Rate: ECG rate: 36 ECG rate assessment: bradycardic Rhythm: Rhythm comment: Idioventricular rhythmEctopy: Ectopy: PVCs QRS: QRS axis: Left QRS intervals: WideConduction: Conduction: abnormal Abnormal conduction: non-specific intraventricular conduction delay ST segments: ST segments: Non-specificT waves: T waves: inverted Inverted: I and aVLComments: Idioventricular rhythm with fusion complexes rate 36, nonspecific intraventricular conduction delay, nonspecific ST-T changes Lab Interpretation Abnormal (test code = 44932-0) [facility] - Not an [id number] 01:59:37 Test Item Value Reference Range Interpretation Comments HILLARY (test code = HILLARY) Servando Ty MD 08/24/2022 2:08 [facility] [place] ED Preliminary Interpretation - Not an OrderPerformed by: Servando Ty MDAuthorized by: Servando Ty MD ECG reviewed by ED Physician in the absence of a life sciences teacher: yes Previous ECG: Previous ECG: UnavailableInterpretati on: Interpretation: abnormal Rate: ECG rate: 36 ECG rate assessment: bradycardic Rhythm: Rhythm comment: Idioventricular rhythmEctopy: Ectopy: PVCs QRS: QRS axis: Left QRS intervals: WideConduction: Conduction: abnormal Abnormal conduction: non-specific intraventricular conduction delay ST segments: ST segments: Non-specificT waves: T waves: inverted Inverted: I and aVLComments: Idioventricular rhythm with fusion complexes rate 36, nonspecific intraventricular conduction delay, nonspecific ST-T changes Lab Interpretation Abnormal (test code = 07715-2) [facility] Interpretation - Not an [id number] 01:59:37 Test Item Value Reference Range Interpretation Comments HILLARY (test code = HILLARY) Servando Ty MD 08/24/2022 2:08 [facility] [place] Interpretation - Not an OrderPerformed by: Servando Ty MDAuthorized by: Servando Ty MD ECG reviewed by ED Physician in the absence of a life sciences teacher: yes Previous ECG: Previous ECG: UnavailableInterpretati on: Interpretation: abnormal Rate: ECG rate: 36 ECG rate assessment: bradycardic Rhythm: Rhythm comment: Idioventricular rhythmEctopy: Ectopy: PVCs QRS: QRS axis: Left QRS intervals: WideConduction: Conduction: abnormal Abnormal conduction: non-specific intraventricular conduction delay ST segments: ST segments: Non-specificT waves: T waves: inverted Inverted: I and aVLComments: Idioventricular rhythm with fusion complexes rate 36, nonspecific intraventricular conduction delay, nonspecific ST-T changes Lab Interpretation Abnormal (test code = 28715-5) [facility] ED Preliminary Interpretation - Not an [id number] 01:59:37 Test Item Value Reference Range Interpretation Comments HILLARY (test code = HILLARY) Servando Ty MD 08/24/2022 2:08 [facility] [place] ED Preliminary Interpretation - Not an OrderPerformed by: Servando Ty MDAuthorized by: Servando Ty MD ECG reviewed by ED Physician in the absence of a life sciences teacher: yes Previous ECG: Previous ECG: UnavailableInterpretati on: Interpretation: abnormal Rate: ECG rate: 36 ECG rate assessment: bradycardic Rhythm: Rhythm comment: Idioventricular rhythmEctopy: Ectopy: PVCs QRS: QRS axis: Left QRS intervals: WideConduction: Conduction: abnormal Abnormal conduction: non-specific intraventricular conduction delay ST segments: ST segments: Non-specificT waves: T waves: inverted Inverted: I and aVLComments: Idioventricular rhythm with fusion complexes rate 36, nonspecific intraventricular conduction delay, nonspecific ST-T changes Lab Interpretation Abnormal (test code = 77554-4) [facility] ED Preliminary Interpretation - Not an [id number] 01:59:37 Test Item Value Reference Range Interpretation Comments HILLARY (test code = HILLARY) Servando Ty MD 08/24/2022 2:08 [facility] [place] ED Preliminary Interpretation - Not an OrderPerformed by: Servando Ty MDAuthorized by: Servando Ty MD ECG reviewed by ED Physician in the absence of a life sciences teacher: yes Previous ECG: Previous ECG: UnavailableInterpretati on: Interpretation: abnormal Rate: ECG rate: 36 ECG rate assessment: bradycardic Rhythm: Rhythm comment: Idioventricular rhythmEctopy: Ectopy: PVCs QRS: QRS axis: Left QRS intervals: WideConduction: Conduction: abnormal Abnormal conduction: non-specific intraventricular conduction delay ST segments: ST segments: Non-specificT waves: T waves: inverted Inverted: I and aVLComments: Idioventricular rhythm with fusion complexes rate 36, nonspecific intraventricular conduction delay, nonspecific ST-T changes Lab Interpretation Abnormal (test code = 90024-8) [facility] ED Preliminary Interpretation - Not an [id number] 01:59:37 Test Item Value Reference Range Interpretation Comments HILLARY (test code = HILLARY) Servando Ty MD 08/24/2022 2:08 [facility] [place] ED Preliminary Interpretation - Not an OrderPerformed by: Servando Ty MDAuthorized by: Servando Ty MD ECG reviewed by ED Physician in the absence of a life sciences teacher: yes Previous ECG: Previous ECG: UnavailableInterpretati on: Interpretation: abnormal Rate: ECG rate: 36 ECG rate assessment: bradycardic Rhythm: Rhythm comment: Idioventricular rhythmEctopy: Ectopy: PVCs QRS: QRS axis: Left QRS intervals: WideConduction: Conduction: abnormal Abnormal conduction: non-specific intraventricular conduction delay ST segments: ST segments: Non-specificT waves: T waves: inverted Inverted: I and aVLComments: Idioventricular rhythm with fusion complexes rate 36, nonspecific intraventricular conduction delay, nonspecific ST-T changes Lab Interpretation Abnormal (test code = 95423-5) [facility] ED Preliminary Interpretation - Not an [id number] 01:59:37 Test Item Value Reference Range Interpretation Comments HILLARY (test code = HILLARY) Servando Ty MD 08/24/2022 2:08 [facility] [place] ED Preliminary Interpretation - Not an OrderPerformed by: Servando Ty MDAuthorized by: Servando Ty MD ECG reviewed by ED Physician in the absence of a life sciences teacher: yes Previous ECG: Previous ECG: UnavailableInterpretati on: Interpretation: abnormal Rate: ECG rate: 36 ECG rate assessment: bradycardic Rhythm: Rhythm comment: Idioventricular rhythmEctopy: Ectopy: PVCs QRS: QRS axis: Left QRS intervals: WideConduction: Conduction: abnormal Abnormal conduction: non-specific intraventricular conduction delay ST segments: ST segments: Non-specificT waves: T waves: inverted Inverted: I and aVLComments: Idioventricular rhythm with fusion complexes rate 36, nonspecific intraventricular conduction delay, nonspecific ST-T changes Lab Interpretation Abnormal (test code = 78720-1) [facility] ED Preliminary Interpretation - Not an [id number] 01:59:37 Test Item Value Reference Range Interpretation Comments HILLARY (test code = HILLARY) Servando Ty MD 08/24/2022 2:08 [facility] [place] ED Preliminary Interpretation - Not an OrderPerformed by: Servando Ty MDAuthorized by: Servando Ty MD ECG reviewed by ED Physician in the absence of a life sciences teacher: yes Previous ECG: Previous ECG: UnavailableInterpretati on: Interpretation: abnormal Rate: ECG rate: 36 ECG rate assessment: bradycardic Rhythm: Rhythm comment: Idioventricular rhythmEctopy: Ectopy: PVCs QRS: QRS axis: Left QRS intervals: WideConduction: Conduction: abnormal Abnormal conduction: non-specific intraventricular conduction delay ST segments: ST segments: Non-specificT waves: T waves: inverted Inverted: I and aVLComments: Idioventricular rhythm with fusion complexes rate 36, nonspecific intraventricular conduction delay, nonspecific ST-T changes Lab Interpretation Abnormal (test code = 83647-0) [facility] [id number] 17:36:00 Test Item Value Reference Range Interpretation Comments POC glucose (test code = 104 mg/dL 65-99 H Ope rator Name: 82977-1) Jordana Hatfield AnaDevickindra ID: [id number] able : [facility] Notified planning advisor Interpretation (test Abnormal code = 50218-7) [facility] 12 [id number] 01:47:59 Test Item Value Reference Range Interpretation [...] undetermined rhythm precludes rhythm comparison, needs review- [facility] QhzlkjfpISRD-QuL-8 (COVID-19) RNA [Presence] in Respiratory specimen by RAYMUNDO with probe [id number] 23:18:23 Test Item Value Reference Range Interpretation Comments SARS-CoV-2 (COVID-19) RNA Not detected [Presence] in Respiratory specimen by RAYMUNDO with probe detection (test code = 93742-2) Whether patient is employed in a Unknown healthcare setting (test code = 23616-5) Whether the patient has symptoms Unknown related to condition of interest (test code = 35481-5) Whether the patient was Unknown hospitalized for condition of interest (test code = 00470-2) Whether the patient was admitted Unknown to intensive care unit (ICU) for condition of interest (test code = 97459-0) Whether patient resides in a Unknown congregate care setting (test code = 82011-6) status (test code = Unknown 13924-4) Date and time of symptom onset Unknown (test code = 11463-1) [facility]2022-08-12 23:22:33 Test Item Value Reference Range Interpretation Comments POCT GLU (test code = 7683469098) 134 mg/dL 70-110 H Lab Interpretation (test code = Abnormal 85954-4) [facility] GLUCOSE (AUTOMATED)2022-08-12 18:51:51 Test Item Value Reference Range Interpretation Comments POCT GLU (test code = 3377131698) 77 mg/dL 70-110 Lab Interpretation (test code = Normal 73118-0) [facility] [id number] 17:27:47 Test Item Value Reference Range Interpretation Comments TSH (test code = See_Comment Biotin has been 6936102386) reported to cau se a negative bias, interpret resul ts relative to pat ielfory's use of biotin. [Automated mess age] The system [employer] generated this result transmitted ref erence range: 0.45 - 4 .70 mIU/L. The refe rence range was not u sed to interpret this result as normal/abnor mal. Lab Interpretation (test Normal code = 46022-6) [facility] GLUCOSE (AUTOMATED)2022-08-12 14:57:10 Test Item Value Reference Range Interpretation Comments POCT GLU (test code = 7489089019) 101 mg/dL 70-110 Lab Interpretation (test code = Normal 79602-6) [facility] METABOLIC PANEL (NA, K, CL, CO2, GLUCOSE, BUN, CREATININE, CA)2022-08-12 11:58:06 Test Item Value Reference Range Interpretation Comments NA (test code = 139 mmol/L 135-145 8597957991) K (test code = 3.7 mmol/L 3.5-5.0 1188819957) CL (test code = 108 mmol/L 98-108 4932267391) CO2 TOTAL (test code = 27 mmol/L 23-31 1981640201) AGAP (test code = 2-16 8923273348) BUN (test code = 8 mg/dL 7-23 5920579258) GLUCOSE (test code = 101 mg/dL 70-110 3685442270) CREATININE (test code = 0.63 mg/dL 0.60-1.25 8117078166) CALCIUM (test code = 8.2 mg/dL 8.6-10.6 L 2803809034) eGFR (test code = mL/min/1.73m2 3088066150) HILLARY (test code = HILLARY) Association of [...] tests). Lab Interpretation Abnormal (test code = 10234-4) [facility] 11:58:06 Test Item Value Reference Range Interpretation Comments MAGNESIUM (test code = 3014761142) 2.1 mg/dL 1.7-2.4 Lab Interpretation (test code = Normal 32274-8) [facility] WITHOUT [id number] 11:26:22 Test Item Value Reference Range Interpretation Comments WBC (test code = 6690-2) See_Comment [A utomated message] The system [employer] generated this result transmit katerin reference range : 4.20 - 10.70 10*3/?L. The reference range was not used to interpret this result as normal/abnormal . RBC (test code = 789-8) See_Comment L [Au tomated message] The system [employer] generated this result transmit katerin reference range [...] 777-3) See_Comment [Au tomated message] The system [employer] generated this result transmit katerin reference range : 150 - 328 10*3/?L. The reference range was not used to interpret this result as normal/abnormal . MPV (test code = 8.7 fL 9.8-13.0 L 39640-2) RDW-CV (test code = 13.7 % 12.1-15.4 788-0) RDW-SD (test code = 39.2 fL 38.5-51.6 25963-8) NRBC x10^3 (test code = See_Comment [Au tomated message] 5642277981) The system [employer] generated this result transmit katerin reference range : 10*3/?L. The reference range was not used to interpret this result as normal/abnormal . NRBC/100 WBC (test code See_Comment [Au tomated message] = 8027729530) The system [employer] generated this result transmit katerin reference range : 0.0 - 10.0 /100 WBC s. The reference r kvng was not used to interpret this result as normal/abnormal . IPF % (test code = 5645120491) Lab Interpretation (test Abnormal code = 06894-4) [facility] GLUCOSE (AUTOMATED)2022-08-12 03:38:45 Test Item Value Reference Range Interpretation Comments POCT GLU (test code = 5143688222) 111 mg/dL 70-110 H Lab Interpretation (test code = Abnormal 08864-9) [facility] GLUCOSE (AUTOMATED)2022-08-11 23:25:06 Test Item Value Reference Range Interpretation Comments POCT GLU (test code = 9115308624) 119 mg/dL 70-110 H Lab Interpretation (test code = Abnormal 44959-8) [facility]IN2022-11-13 22:04:55 Test Item Value Reference Interpretation Comments Range Procalcitonin (test 0.02 ng/mL See_Comment [Automa katerin code = 6592170152) message] The system which generated this result [...] lung abscess/empyema. For further information please refer to:[email or web address] p Lab Interpretation Normal (test code = 91071-9) [facility] GLUCOSE (AUTOMATED)2022-08-11 18:05:09 Test Item Value Reference Range Interpretation Comments POCT GLU (test code = 1297326936) 84 mg/dL 70-110 Lab Interpretation (test code = Normal 34892-9) [facility] GLUCOSE (AUTOMATED)2022-08-11 15:27:43 Test Item Value Reference Range Interpretation Comments POCT GLU (test code = 1547486514) 86 mg/dL 70-110 Lab Interpretation (test code = Normal 64622-1) [facility] 20 + Lactic [id number] 06:25:23 Test Item Value Reference Range Interpretation Comments PH (test code = 2) 7.35-7.45 PCO2 (test code = See_Comment [Automate d 9541601942) message] The sy stem which generated this result transmitted reference range : 35 - 45 mmHg. The reference range was not used to interpret this result as normal/abnormal . PO2 (test code = See_Comment H [Automated 6907552531) message] The sy stem which generated this result transmitted reference range : 80 - 100 mmHg. The reference range was not used to interpret this result as normal/abnormal . HCO3 (test code = See_Comment [Automate d 6175802278) message] The sy stem which generated this result transmitted reference range : 22 - 26 mEq/L. The reference range was not used to interpret this result as normal/abnormal . BE (test code = See_Comment [Automated 6793874615) message] The sy stem which generated this result transmitted reference range : -3.0 - 3.0 mEq/ L. The reference r kvng was not used to interpret this result as normal/abnormal . THB (test code = 10.7 g/dL 13.5-18.0 L 1253045054) %O2HB (test code = 97.9 % 94.0-99.0 5447035873) %COHB ART (test code = 0.3 % 0.0-1.5 0865759648) %METHB ART (test code = 0.3 % 0.4-1.5 L 2330054375) VOL%O2 ART (test code = 15.0 % 15.0-23.0 4277692330) NA (test code = 135 mmol/L 135-145 7017523661) K+ (test code = 3.2 mmol/L 3.5-5.0 L 0625134206) AC CA IONZ (test code = 4.40 mg/dL 4.50-5.30 L 2504902125) GLUCOSE (test code = 105 mg/dL 70-110 3422124970) LACTIC ACID (test code 0.59 mmol/L 0.50-2.20 = 1519022182) Lab Interpretation Abnormal (test code = 90660-8) [facility] GLUCOSE (AUTOMATED)2022-08-11 02:38:19 Test Item Value Reference Range Interpretation Comments POCT GLU (test code = 1589832272) 117 mg/dL 70-110 H Lab Interpretation (test code = Abnormal 43228-0) [facility]onaP[facility]2022-[facility]13 00:43:42 Test Item Value Reference Range Interpretation Comments APTT Patient (test code See_Comment H [Au tomated message] = 3173-2) The system [employer] generated this result transmitted ref erence range: 26 - 36 Seconds. The reference range was not used to int erpret this result as normal/abnormal . Lab Interpretation (test Abnormal code = 45148-8) [facility] GLUCOSE (AUTOMATED)2022-08-11 00:27:24 Test Item Value Reference Range Interpretation Comments POCT GLU (test code = 3940815562) 140 mg/dL 70-110 H Lab Interpretation (test code = Abnormal 95930-8) [facility] COOX [id number] 23:29:36 Test Item Value Reference Range Interpretation Comments THB STONEY (test code = 0884129311) 8.6 g/dL 13.5-18.0 L %O2HB STONEY (test code = 4291774001) 84.7 % 52.0-63.0 H %COHB STONEY (test code = 4566051806) 0.2 % 0.0-1.5 %METHB STONEY (test code = 6122272561) 0.3 % 0.4-1.5 L VOL%O2 STONEY (test code = 0880542228) 10.3 % 6.0-12.0 Lab Interpretation (test code = Abnormal 24061-4) [facility] 20 + Lactic [id number] 22:33:12 Test Item Value Reference Range Interpretation Comments PH (test code = 2) 7.35-7.45 PCO2 (test code = See_Comment [Automate d 6024590570) message] The sy stem which generated this result transmitted reference range : 35 - 45 mmHg. The reference range was not used to interpret this result as normal/abnormal . PO2 (test code = See_Comment H [Automated 9866551163) message] The sy stem which generated this result transmitted reference range : 80 - 100 mmHg. The reference range was not used to interpret this result as normal/abnormal . HCO3 (test code = See_Comment [Automate d 9682918666) message] The sy stem which generated this result transmitted reference range : 22 - 26 mEq/L. The reference range was not used to interpret this result as normal/abnormal . BE (test code = See_Comment [Automated 3442178092) message] The sy stem which generated this result transmitted reference range : -3.0 - 3.0 mEq/ L. The reference r kvng was not used to interpret this result as normal/abnormal . THB (test code = 9.7 g/dL 13.5-18.0 L 4715607252) %O2HB (test code = 97.8 % 94.0-99.0 2765466895) %COHB ART (test code = 0.3 % 0.0-1.5 4836824607) %METHB ART (test code = 0.3 % 0.4-1.5 L 1671562710) VOL%O2 ART (test code = 13.6 % 15.0-23.0 L 7690955548) NA (test code = 135 mmol/L 135-145 4514202753) K+ (test code = 3.5 mmol/L 3.5-5.0 3391395949) AC CA IONZ (test code = 4.60 mg/dL 4.50-5.30 9090181883) GLUCOSE (test code = 99 mg/dL 70-110 1214036427) LACTIC ACID (test code 0.58 mmol/L 0.50-2.20 = 3559091616) Lab Interpretation Abnormal (test code = 26544-4) [facility]2022-[facility]-10 19:35:22 Test Item Value Reference Range Interpretation Comments POCT GLU (test code = 1081454284) 115 mg/dL 70-110 H Lab Interpretation (test code = Abnormal 16070-6) [facility] 20 + Lactic [id number] 19:33:01 Test Item Value Reference Range Interpretation Comments PH (test code = 2) 7.35-7.45 H PCO2 (test code = See_Comment L [Automate d 7838271914) message] The sy stem which generated this result transmitted reference range : 35 - 45 mmHg. The reference range was not used to interpret this result as normal/abnormal . PO2 (test code = See_Comment [Automated 5737129533) message] The sy stem which generated this result transmitted reference range : 80 - 100 mmHg. The reference range was not used to interpret this result as normal/abnormal . HCO3 (test code = See_Comment L [Automate d 6306647768) message] The sy stem which generated this result transmitted reference range : 22 - 26 mEq/L. The reference range was not used to interpret this result as normal/abnormal . BE (test code = See_Comment [Automated 2774167309) message] The sy stem which generated this result transmitted reference range : -3.0 - 3.0 mEq/ L. The reference r kvng was not used to interpret this result as normal/abnormal . THB (test code = 10.0 g/dL 13.5-18.0 L 3696949490) %O2HB (test code = 95.9 % 94.0-99.0 4331045685) %COHB ART (test code = 0.0 % 0.0-1.5 7781097350) %METHB ART (test code = 0.3 % 0.4-1.5 L 9397188300) VOL%O2 ART (test code = 13.6 % 15.0-23.0 L 2436155888) NA (test code = 134 mmol/L 135-145 L 3077299559) K+ (test code = 3.2 mmol/L 3.5-5.0 L 0104770092) AC CA IONZ (test code = 4.40 mg/dL 4.50-5.30 L 7727974198) GLUCOSE (test code = 122 mg/dL 70-110 H 4822672667) LACTIC ACID (test code 0.75 mmol/L 0.50-2.20 = 7701092091) Lab Interpretation Abnormal (test code = 06874-0) [facility] + Lactic [id number] 16:25:18 Test Item Value Reference Range Interpretation Comments PH (test code = 2) 7.35-7.45 H PCO2 (test code = See_Comment L [Automate d 1516644134) message] The sy stem which generated this result transmitted reference range : 35 - 45 mmHg. The reference range was not used to interpret this result as normal/abnormal . PO2 (test code = See_Comment L [Automated 1111311423) message] The sy stem which generated this result transmitted reference range : 80 - 100 mmHg. The reference range was not used to interpret this result as normal/abnormal . HCO3 (test code = See_Comment L [Automate d 9568306980) message] The sy stem which generated this result transmitted reference range : 22 - 26 mEq/L. The reference range was not used to interpret this result as normal/abnormal . BE (test code = See_Comment [Automated 1089104477) message] The sy stem which generated this result transmitted reference range : -3.0 - 3.0 mEq/ L. The reference r kvng was not used to interpret this result as normal/abnormal . THB (test code = 10.1 g/dL 13.5-18.0 L 1111158397) %O2HB (test code = 92.6 % 94.0-99.0 L 2883098696) %COHB ART (test code = 0.3 % 0.0-1.5 7923575955) %METHB ART (test code = 0.3 % 0.4-1.5 L 9896571499) VOL%O2 ART (test code = 13.2 % 15.0-23.0 L 0984626188) NA (test code = 133 mmol/L 135-145 L 3682823087) K+ (test code = 3.3 mmol/L 3.5-5.0 L 7986351836) AC CA IONZ (test code = 4.50 mg/dL 4.50-5.30 4384923373) GLUCOSE (test code = 117 mg/dL 70-110 H 8936085801) LACTIC ACID (test code 1.17 mmol/L 0.50-2.20 = 0481845276) Lab Interpretation Abnormal (test code = 08690-1) [facility]-10 15:51:56 Test Item Value Reference Range Interpretation Comments POCT GLU (test code = 7216688719) 150 mg/dL 70-110 H Lab Interpretation (test code = Abnormal 43768-9) [facility] [id number] 14:56:11 Test Item Value Reference Range Interpretation Comments CRP (test code = 1.4 mg/dL See_Comment H [Automated message] 5580060311) The system Pe[employer] h generated this result transmit katerin reference range : <=0.8. The refe rence range was not u sed to interpret th is result as normal/abnormal . Lab Interpretation (test Abnormal code = 41850-8) [facility] + Lactic [id number] 12:04:50 Test Item Value Reference Range Interpretation Comments PH (test code = 2) 7.35-7.45 PCO2 (test code = See_Comment L [Automate d 4748653698) message] The sy stem which generated this result transmitted reference range : 35 - 45 mmHg. The reference range was not used to interpret this result as normal/abnormal . PO2 (test code = See_Comment H [Automated 5766051595) message] The sy stem which generated this result transmitted reference range : 80 - 100 mmHg. The reference range was not used to interpret this result as normal/abnormal . HCO3 (test code = See_Comment L [Automate d 4310820347) message] The sy stem which generated this result transmitted reference range : 22 - 26 mEq/L. The reference range was not used to interpret this result as normal/abnormal . BE (test code = See_Comment L [Automated 2402500514) message] The sy stem which generated this result transmitted reference range : -3.0 - 3.0 mEq/ L. The reference r kvng was not used to interpret this result as normal/abnormal . THB (test code = 11.0 g/dL 13.5-18.0 L 7587446923) %O2HB (test code = 98.2 % 94.0-99.0 5027579916) %COHB ART (test code = 0.3 % 0.0-1.5 9779108819) %METHB ART (test code = 0.3 % 0.4-1.5 L 7059458236) VOL%O2 ART (test code = 15.3 % 15.0-23.0 0627405031) NA (test code = 136 mmol/L 135-145 1788581467) K+ (test code = 3.4 mmol/L 3.5-5.0 L 5042672095) AC CA IONZ (test code = 4.40 mg/dL 4.50-5.30 L 8746638508) GLUCOSE (test code = 130 mg/dL 70-110 H 7218395698) LACTIC ACID (test code 1.26 mmol/L 0.50-2.20 = 0024885429) Lab Interpretation Abnormal (test code = 57159-4) [facility]enton[facility]IPID PAN[facility] (01978)(TOTAL CHOLESTEROL, TRIGLYCERIDES, HDL)2022-08-10 10:02:22 Test Item Value Reference Range Interpretation Comments CHOL (test code = 128 mg/dL 120-200 8077201888) HDL (test code = 42 mg/dL See_Comment [Automated message] 0166982820) The system [employer] generated this result transmit katerin reference range : >=40. The refer ence range was not u sed to interpret th is result as normal/abnormal . HDLC RATIO (test code = See_Comment [Au tomated message] 7968384687) The system [employer] generated this result transmit katerin reference range : <=5.0. The refe rence range was not u sed to interpret th is result as normal/abnormal . TRIG (test code = 119 mg/dL 30-170 0586742407) LDL CHOL (test code = 62 mg/dL See_Comment [Auto mated message] 07302-0) The system [employer] generated this result transmit katerin reference range : <=160. The refe rence range was not u sed to interpret th is result as normal/abnormal . VLDL (test code = 24 mg/dL 5-60 2455215531) Lab Interpretation (test Normal code = 53850-1) [facility] + Lactic [id number] 09:04:14 Test Item Value Reference Range Interpretation Comments PH (test code = 2) 7.35-7.45 H PCO2 (test code = See_Comment L [Automate d 8300419555) message] The sy stem which generated this result transmitted reference range : 35 - 45 mmHg. The reference range was not used to interpret this result as normal/abnormal . PO2 (test code = See_Comment L [Automated 8017220659) message] The sy stem which generated this result transmitted reference range : 80 - 100 mmHg. The reference range was not used to interpret this result as normal/abnormal . HCO3 (test code = See_Comment L [Automate d 9432530895) message] The sy stem which generated this result transmitted reference range : 22 - 26 mEq/L. The reference range was not used to interpret this result as normal/abnormal . BE (test code = See_Comment [Automated 2424576474) message] The sy stem which generated this result transmitted reference range : -3.0 - 3.0 mEq/ L. The reference r kvng was not used to interpret this result as normal/abnormal . THB (test code = 10.7 g/dL 13.5-18.0 L 3086263379) %O2HB (test code = 83.2 % 94.0-99.0 L 9807546669) %COHB ART (test code = 0.1 % 0.0-1.5 9656486684) %METHB ART (test code = 0.3 % 0.4-1.5 L 2578517442) VOL%O2 ART (test code = 12.5 % 15.0-23.0 L 6563631175) NA (test code = 134 mmol/L 135-145 L 0823662245) K+ (test code = 3.6 mmol/L 3.5-5.0 7560861001) AC CA IONZ (test code = 4.50 mg/dL 4.50-5.30 5206638285) GLUCOSE (test code = 130 mg/dL 70-110 H 2660903342) LACTIC ACID (test code 0.79 mmol/L 0.50-2.20 = 1784757419) Lab Interpretation Abnormal (test code = 40664-8) [facility] + Lactic [id number] 06:05:55 Test Item Value Reference Range Interpretation Comments PH (test code = 2) 7.35-7.45 PCO2 (test code = See_Comment L [Automat ed 3140661326) message] The sy stem which generated this result transmitted reference range : 35 - 45 mmHg. The reference range was not used to interpret this result as normal/abnormal . PO2 (test code = See_Comment L [Automated 0020987668) message] The sy stem which generated this result transmitted reference range : 80 - 100 mmHg. The reference range was not used to interpret this result as normal/abnormal . HCO3 (test code = See_Comment L [Automate d 5556735152) message] The sy stem which generated this result transmitted reference range : 22 - 26 mEq/L. The reference range was not used to interpret this result as normal/abnormal . BE (test code = See_Comment L [Automated 6388844594) message] The sy stem which generated this result transmitted reference range : -3.0 - 3.0 mEq/ L. The reference r kvng was not used to interpret this result as normal/abnormal . THB (test code = 10.8 g/dL 13.5-18.0 L 4869459176) %O2HB (test code = 88.8 % 94.0-99.0 L 0145220686) %COHB ART (test code = 0.7 % 0.0-1.5 5733022053) %METHB ART (test code = 0.3 % 0.4-1.5 L 5642074743) VOL%O2 ART (test code = 13.5 % 15.0-23.0 L 9583033688) NA (test code = 134 mmol/L 135-145 L 2051817470) K+ (test code = 3.5 mmol/L 3.5-5.0 8508841400) AC CA IONZ (test code = 4.60 mg/dL 4.50-5.30 0914486275) GLUCOSE (test code = 126 mg/dL 70-110 H 7794582401) LACTIC ACID (test code 0.76 mmol/L 0.50-2.20 = 9310019743) Lab Interpretation Abnormal (test code = 39792-0) [facility]2022-08-10 02:31:50 Test Item Value Reference Range Interpretation Comments POCT GLU (test code = 9676737732) 146 mg/dL 70-110 H Lab Interpretation (test code = Abnormal 85040-5) [facility]entonGLYCOSYLATED HEMOGLOBIN (A1C)2022-08-10 01:16:01 Test Item Value Reference Range Interpretation Comments HGB A1C (test code = 5.0 % 4.0-5.7 4548-4) HILLARY (test code = HILLARY) Reference RangesNormal: <5.7%Prediabetes: 5.7 - 6.4%Diabetes: > 6.5% Lab Interpretation (test Normal code = 41798-2) [facility]enton[facility]ansthoracic echo (TTE)2022-08-09 22:51:57 Test Item Value Reference Range Interpretation Comments Height (test code = in 1317956480) Weight (test code = lbs 9902290329) Systolic BP (test code mmHg = 9583138531) Diastolic BP (test code mmHg = 0297454717) Heart Rate (test code = bpm 8365991235) BSA (test code = 2.38 m2 9591339036) LVOT stroke volume 92.50 cm3 (test code = 7592663822) EF(Teich) (test code = 65.70 % 4377860631) LVIDD (test code = 4.90 cm 2827716479) LVIDS (test code = 3.10 cm 8006758617) Left Ventricular End 37.9 mL Systolic Volume by Teichholz Method (test code = 0784804) Left Ventricular End 110.7 mL Diastolic Volume by Teichholz Method (test code = 3571580) IVS (test code = 1.44 cm 1912444265) LVPWD (test code = 1.43 cm 2596214088) LVOT diameter (test 2.38 cm code = 2490772328) LVOT area (test code = 4.50 cm2 9358955780) FS (test code = 36 % 4794074984) MV Peak E Tara (test 156.1 cm/s code = 6868052704) E wave decelartion time 0.20 s (test code = 7502486282) MV E/e' septal (test 11.0 cm/s code = 4470320099) LA Volume Index (BP) 18.0 mL/m2 (test code = 2439453961) LA volume (BP) (test 42.8 mL code = 9409670889) LVOT peak tara (test 118.7 cm/s code = 5586192331) LVOT mn grad (test code mmHg = 1200845796) Left Ventricular 8.7 L/min Cardiac Output (test code = 2076361) LA size (test code = 3.6 cm 5249053881) LAV(MOD-sp2) (test code 61.00 mL = 0429287152) LAV(MOD-sp4) (test code 30.20 mL = 3563904302) Tapse (test code = 2.49 cm 6720345981) AV LVOT peak gradient mmHg (test code = 7447426867) LVOT peak VTI (test 20.7 cm code = 2902881953) Aortic HR (test code = BPM 8140821608) LV V1 mean (test code = 78.60 cm/s 1156496109) MV Prop V (test code = 50.80 cm/s 0748839323) Ao root diam (test code 4.40 cm = 3627660465) Aortic root (test code 4.4 cm = 0056660327) Ao root annulus (test 4.4 cm code = 2250047430) PW (test code = 1.43 cm 0.6-1.7 2408805383) EF - 2D (test code = 65.70 % 55178883) Interventricular Septum 1.44 cm Diastolic Thickness by 2D (test code = 1619777) MV Peak A Tara (test 68.6 cm/s code = 4943828405) E/A ratio (test code = ratio 4872416521) Radiology Study observation (narrative) (test code = 21584-8) HILLARY (test code = HILLARY) ?Left?Ventricle: Left [...] mL of Lumason ultrasound enhancing agent used. [facility]ON[facility] (AUTOMATED)2022-08-09 22:51:44 Test Item Value Reference Range Interpretation Comments POCT GLU (test code = 3569600881) 134 mg/dL 70-110 H Lab Interpretation (test code = Abnormal 93332-2) [facility] DentonSEDIMENTATION [id number] 17:58:51 Test Item Value Reference Range Interpretation Comments ESR (test code = 40421-7) See_Comment [ Automated message] The system [employer] generated this result transmitted ref erence range: 2 - 30 m m/HR. The reference r kvng was not used to interpret this result as normal/abnor mal. Lab Interpretation (test Normal code = 69634-3) [facility] DentonLakyate Csxbwclgeoltq2520-84-25 16:12:18 Test Item Value Reference Range Interpretation Comments LDH (test code = 4136540221) 176 U/L 120-246 Lab Interpretation (test code = Normal 78892-7) [facility] Arterial Blood Gas.2022-08-09 15:41:50 Test Item Value Reference Range Interpretation Comments PH (test code = 2) 7.35-7.45 H PCO2 (test code = See_Comment L [Automate d message] 9891159313) The system [employer] generated this result transmitted ref erence range: 35 - 45 mmHg. The reference r kvng was not used to interpret this result as normal/abnor mal. PO2 (test code = See_Comment [Automated message] 4402280740) The system [employer] generated this result transmitted ref erence range: 80 - 100 mmHg. The reference r kvng was not used to interpret this result as normal/abnor mal. HCO3 (test code = See_Comment L [Automate d message] 4233459155) The system [employer] generated this result transmitted ref erence range: 22 - 26 mEq/L. The reference r kvng was not used to interpret this result as normal/abnor mal. BE (test code = See_Comment L [Automated message] 7434558160) The system [employer] generated this result transmitted ref erence range: -3.0 - 3 .0 mEq/L. The refe rence range was not u sed to interpret this result as normal/abnor mal. Lab Interpretation (test Abnormal code = 24174-3) [facility] DentonTROPONIN [id number] 13:23:33 Test Item Value Reference Interpretation Comments Range TROPONIN I (test 0.006 ng/mL See_Comment [Automated code = 0543739070) message] The system which generated this result [...] biotin. Lab Interpretation Normal (test code = 13438-3) [facility]entonN-TERMINAL [id number] 13:23:33 Test Item Value Reference Range Interpretation Comments NT-proBNP (test code 967 pg/mL See_Comment H [Autom ated = 6894179651) message] The system which generated this result transmitted reference range : <=125. The reference range was not used to interpret this result as normal/abnormal . HILLARY (test code = HILLARY) Biotin has been reported to cause a negative bias, interpret results relative to patient's use of biotin. Lab Interpretation Abnormal (test code = 69093-5) [facility] METABOLIC PANEL (NA, K, CL, CO2, GLUCOSE, BUN, CREATININE, CA)2022-08-09 13:09:53 Test Item Value Reference Range Interpretation Comments NA (test code = 140 mmol/L 135-145 4899999449) K (test code = 3.9 mmol/L 3.5-5.0 8104002875) CL (test code = 107 mmol/L 98-108 2144262220) CO2 TOTAL (test code = 21 mmol/L 23-31 L 5850274222) AGAP (test code = 2-16 8613601013) BUN (test code = 13 mg/dL 7-23 9818893007) GLUCOSE (test code = 148 mg/dL 70-110 H 6487602130) CREATININE (test code = 1.86 mg/dL 0.60-1.25 H 4931324504) CALCIUM (test code = 8.6 mg/dL 8.6-10.6 2296052199) eGFR (test code = mL/min/1.73m2 9849132125) HILLARY (test code = HILLARY) Association of [...] tests). Lab Interpretation Abnormal (test code = 95578-4) [facility]entonHEPATIC FUNCTION PANEL (40773) (ALB,T.PRO,BILI T,BU/BC,ALT,AST,ALK PHOS)2022-08-09 13:09:53 Test Item Value Reference Range Interpretation Comments TOTAL BILI (test code = 6133341134) 0.4 mg/dL 0.1-1.1 BILI UNCON (test code = 5709124378) 0.1 mg/dL 0.1-1.1 BILI CONJ (test code = 1342915457) 0.0 mg/dL 0.0-0.3 T PROTEIN (test code = 7857776873) 7.0 g/dL 6.3-8.2 ALBUMIN (test code = 6729309543) 4.2 g/dL 3.5-5.0 ALK PHOS (test code = 0162121234) 99 U/L 34-122 ALTv (test code = 1742-6) 26 U/L 5-50 AST(SGOT) (test code = 5925928395) 29 U/L 13-40 Lab Interpretation (test code = Normal 51528-1) [facility] DentonMagnesium [id number] 13:09:53 Test Item Value Reference Range Interpretation Comments MAGNESIUM (test code = 3038762190) 1.6 mg/dL 1.7-2.4 L Lab Interpretation (test code = Abnormal 19691-3) [facility] DentonPhosphorus [id number] 13:09:53 Test Item Value Reference Range Interpretation Comments PHOSPHORUS (test code = 4476182093) 3.1 mg/dL 2.5-5.0 Lab Interpretation (test code = Normal 89524-7) [facility]entonPOCT [facility] (AUTOMATED)2022-08-09 13:07:32 Test Item Value Reference Range Interpretation Comments POCT GLU (test code = 8939358035) 156 mg/dL 70-110 H Lab Interpretation (test code = Abnormal 96026-4) [facility] DentonProthrombin Time / [id number] 12:39:29 Test Item Value Reference Range Interpretation [...] tions. Lab Interpretation (test Abnormal code = 07787-6) [facility] WITH [id number] 12:35:26 Test Item Value Reference Range Interpretation Comments WBC (test code = See_Comment H [Automated 6690-2) message] The system which generated this result transmit katerin reference range : 4.20 - 10.70 10*3/?L. The reference range was not used to interpret this result as normal/abnormal . RBC (test code = See_Comment L [Automated 179-8) message] The system which generated this result [...] RDW-SD (test code = 39.2 fL 38.5-51.6 15903-5) RDW-CV (test code = 13.9 % 12.1-15.4 788-0) PLT (test code = See_Comment H [Automated 777-3) message] The system which generated this result transmit katerin reference range : 150 - 328 10*3/ ?L. The reference range was not u sed to interpret th is result as normal/abnormal . MPV (test code = 9.1 fL 9.8-13.0 L 01783-1) NRBC/100 WBC (test See_Comment [Automat ed code = 2703848504) message] The system which generated this result transmit katerin reference range : 0.0 - 10.0 /100 WBCs. The reference range was not used to interpret this result as normal/abnormal . NRBC x10^3 (test code See_Comment [Auto mated = 6901755739) message] The system which generated this result transmit katerin reference range : 10*3/?L. The reference range was not used to interpret this result as normal/abnormal . GRAN MAT (NEUT) % 78.7 % (test code = 770-8) IMM GRAN % (test code 1.30 % = 0941805323) LYMPH % (test code = 14.8 % 736-9) MONO % (test code = 4.9 % 5905-5) EOS % (test code = 0.0 % 713-8) BASO % (test code = 0.3 % 706-2) GRAN MAT x10^3(ANC) 10.45 10*3/uL 1.99-6.95 H (test code = 8910374841) IMM GRAN x10^3 (test 0.17 10*3/uL 0.00-0.06 H code = 9464051580) LYMPH x10^3 (test code 1.96 10*3/uL 1.09-3.23 = 731-0) MONO x10^3 (test code 0.65 10*3/uL 0.36-1.02 = 742-7) EOS x10^3 (test code = 0.06-0.53 L 711-2) BASO x10^3 (test code 0.04 10*3/uL 0.01-0.09 = 704-7) Lab Interpretation Abnormal (test code = 32980-8) [facility] DentonLakyic Acid Whole [id number] 12:11:47 Test Item Value Reference Range Interpretation Comments LACTIC ACID (test code = 2.71 mmol/L 0.50-2.20 H QUE S 9937726523) Lab Interpretation (test code = Abnormal 20346-2) [facility] GLUCOSE (AUTOMATED)2022-08-09 12:01:00 Test Item Value Reference Range Interpretation Comments POCT GLU (test code = 6004899088) 174 mg/dL 70-110 H Lab Interpretation (test code = Abnormal 32927-6) [facility]entonMAGNESIUM2022-11-11 06:40:50 Test Item Value Reference Range Interpretation Comments MAGNESIUM (test code = 5937069408) 1.3 mg/dL 1.7-2.4 L Lab Interpretation (test code = Abnormal 15448-1) [facility] GLUCOSE (AUTOMATED)2022-08-09 06:35:01 Test Item Value Reference Range Interpretation Comments POCT GLU (test code = 9038902016) 155 mg/dL 70-110 H Lab Interpretation (test code = Abnormal 03907-5) [facility] GLUCOSE(AGE >30DAYS)2022-08-09 06:35:00 Test Item Value Reference Range Interpretation Comments POCT Glu (age>30days) (test code = 155 mg/dL 70-110 3342) Lab Interpretation (test code = Normal 64706-3) [facility] DentonTROPONIN [id number] 04:38:19 Test Item Value Reference Interpretation Comments Range TROPONIN I (test 0.000 ng/mL See_Comment [Automated code = 4508840891) message] The system which generated this result [...] biotin. Lab Interpretation Normal (test code = 44117-4) [facility] WITH [id number] 03:27:56 Test Item Value Reference Range Interpretation Comments WBC (test code = See_Comment [Automated 7290-2) message] The sy stem which generated this [...] (test code = 38.1 fL 38.5-51.6 L 14478-4) RDW-CV (test code = 13.6 % 12.1-15.4 788-0) PLT (test code = See_Comment [Automated 777-3) message] The sy stem which generated this result transmitted reference range : 150 - 328 10*3/ ?L. The reference r kvng was not used to interpret this result as normal/abnormal . MPV (test code = 9.3 fL 9.8-13.0 L 98451-2) IPF % (test code = 1.5 % 1.2-10.7 Platelet count 7692732417) measured by fluorescence method. NRBC/100 WBC (test See_Comment [Automat ed code = 2097527417) message] The system which generated this result transmitted reference range : 0.0 - 10.0 /100 WBCs. The refer ence range was not u sed to interpret th is result as normal/abnormal . NRBC x10^3 (test code See_Comment [Auto mated = 6264862890) message] The s ystem which generated this result transmitted reference range : 10*3/?L. The reference range was not used to interpret this result as normal/abnormal . GRAN MAT (NEUT) % 72.5 % (test code = 770-8) IMM GRAN % (test code 0.70 % = 1960017510) LYMPH % (test code = 19.6 % 736-9) MONO % (test code = 6.0 % 5905-5) EOS % (test code = 0.8 % 713-8) BASO % (test code = 0.4 % 706-2) GRAN MAT x10^3(ANC) 7.38 10*3/uL 1.99-6.95 H (test code = 7609450943) IMM GRAN x10^3 (test 0.07 10*3/uL 0.00-0.06 H code = 0897350365) LYMPH x10^3 (test code 1.99 10*3/uL 1.09-3.23 = 731-0) MONO x10^3 (test code 0.61 10*3/uL 0.36-1.02 = 742-7) EOS x10^3 (test code = 0.08 10*3/uL 0.06-0.53 711-2) BASO x10^3 (test code 0.04 10*3/uL 0.01-0.09 = 704-7) Lab Interpretation Abnormal (test code = 96026-2) [facility] [id number] 03:10:49 Test Item Value Reference Interpretation Comments Range TROPONIN I (test 0.000 ng/mL See_Comment [Automated code = 4332814853) message] The system which generated this result [...] biotin. Lab Interpretation Normal (test code = 81929-4) [facility]entonProthrombin Time / [id number] 02:59:11 Test Item Value Reference Range Interpretation Comments PROTIME PATIENT (test See_Comment [Auto mated message] code = 5964-2) The system [employer] generated this result transmitted ref erence range: 12.0 - 1 4.7 Seconds. The re ference range was not u sed to interpret this result as normal/abnor mal. INR (test code = 6301-6) Nor mal INR <1.1; Warfarin Therap eutic range 2.0 to 3. 0 or 2.5 to 3.5, dep ending upon the indica tions. Lab Interpretation (test Normal code = 41487-4) [facility]entonCOMP. METABOLIC PANEL (19107)2022-08-09 02:57:30 Test Item Value Reference Range Interpretation Comments NA (test code = 138 mmol/L 135-145 4329764293) K (test code = 3.8 mmol/L 3.5-5.0 5152081911) CL (test code = 102 mmol/L 98-108 5734920982) CO2 TOTAL (test code = 25 mmol/L 23-31 8281823598) AGAP (test code = 2-16 8671835425) BUN (test code = 10 mg/dL 7-23 3930992917) GLUCOSE (test code = 121 mg/dL 70-110 H 6487283251) CREATININE (test code = 0.82 mg/dL 0.60-1.25 9604801532) TOTAL BILI (test code = 0.4 mg/dL 0.1-1.3 0655348190) CALCIUM (test code = 9.6 mg/dL 8.6-10.6 2666741027) T PROTEIN (test code = 7.1 g/dL 6.3-8.2 0792339335) ALBUMIN (test code = 4.5 g/dL 3.5-5.0 4942543622) ALK PHOS (test code = 122 U/L 34-122 3670201705) ALTv (test code = 27 U/L 5-50 1742-6) AST(SGOT) (test code = 26 U/L 13-40 6468756363) eGFR (test code = mL/min/1.73m2 3502319426) HILLARY (test code = HILLARY) Association of [...] tests). Lab Interpretation Abnormal (test code = 31584-7) [facility]entonLIPASE2022-11-11 02:56:49 Test Item Value Reference Range Interpretation Comments LIPASE (test code = 8631736105) 57 U/L 0-220 Lab Interpretation (test code = Normal 02930-7) [facility] BranchARTERIAL DOPPLER LEG, [id number] 16:22:00 Reason for exam:->R/o Pseudoaneurysm. [facility]ENTERName[facility] SYDNI HARRIS : 1995 Sex: MFINAL REPORT History: Right [...] evidence for pseudoaneurysm or AV fistula. Signed: Curtis Kelsey Verified Date/Time: 04/08/2021 16:22:12 Reading Location: [address] [place] [facility] [id number] 23:30:22 Test Item Value Reference Range Interpretation Comments Ventricular rate (test code = 253) Atrial rate (test code = 255) MO interval (test code = 266) QRSD interval [...] of 05-APR-2021 15:33,-No significant change was found- [facility] 12 laam7207-12-07 23:30:22 Test Item Value Reference Range Interpretation Comments Ventricular rate (test code = 253) Atrial rate (test code = 255) MO interval (test code = 266) QRSD interval [...] of 05-APR-2021 15:33,-No significant change was found- [facility] [id number] 16:42:16 Test Item Value Reference Range Interpretation Comments POC glucose (test 96 mg/dL 65-99 [employer] N sahara: Naomi code = 73736-2) Eliel ce ID: [id number] [facility] [id number] 16:42:16 Test Item Value Reference Range Interpretation Comments POC glucose (test 96 mg/dL 65-99 [employer] N sahara: Naomi code = 28410-3) Eliel ce [facility]: [id number] [facility] [Presence] in Respiratory specimen by RAYMUNDO with probe [id number] 15:39:17 Test Item Value Reference Range Interpretation Comments SARS-CoV-2 (COVID-19) RNA Not detected Not-Detected [Presence] in Respiratory specimen by RAYMUNDO with probe detection (test code = 16662-6) Whether patient is employed in a healthcare setting (test code = 90880-2) Whether the patient has symptoms related to condition of interest (test code = 75270-3) Patient was hospitalized because of this condition (test code = 23752-3) Whether the patient was admitted to intensive care unit (ICU) for condition of interest (test code = 41755-5) Whether patient resides in a congregate care setting (test code = 10972-4) [facility] [id number] 10:30:00 Test Item Value Reference Range Interpretation Comments TROPONIN I (test 0.004 ng/mL See_Comment [Automated code = 7233024475) message] The system which generated this result [...] ? Lab Interpretation Normal (test code = 29631-5) [facility] METABOLIC PANEL (NA, K, CL, CO2, GLUCOSE, BUN, CREATININE, CA)2020-05-22 10:26:00 Test Item Value Reference Range Interpretation Comments NA (test code = 138 mmol/L 135-145 8999159017) K (test code = 3.9 mmol/L 3.5-5 3948445165) CL (test code = 106 mmol/L 98-108 4696732939) CO2 TOTAL (test code = 24 mmol/L 23-31 8033687039) AGAP (test code = 2-16 3963754674) BUN (test code = 14 mg/dL 7-23 0941504192) GLUCOSE (test code = 87 mg/dL 70-110 2212594889) CREATININE (test code 0.75 mg/dL 0.6-1.25 = 2105792797) CALCIUM (test code = 9.0 mg/dL 8.6-10.6 1200151144) eGFR Calculation mL/min/1.73m2 (Non-) (test code = 2811127297) eGFR Calculation mL/min/1.73m2 () (test code = 7646962816) HILLARY (test code = HILLARY) Association of [...] or urine or abnormalities in imaging tests). [facility]2020-[facility]24 10:26:00 Test Item Value Reference Range Interpretation Comments MAGNESIUM (test code = 4577581643) 1.8 mg/dL 1.7-2.4 Lab Interpretation (test code = Normal 37849-8) [facility] MET[facility]OL[facility] (NA, K, CL, CO2, GLUCOSE, BUN, CREATININE, CA)2020-05-21 10:09:00 Test Item Value Reference Range Interpretation Comments NA (test code = 140 mmol/L 135-145 2753709550) K (test code = 3.8 mmol/L 3.5-5 0675578137) CL (test code = 106 mmol/L 98-108 9060649490) CO2 TOTAL (test code = 28 mmol/L 23-31 2192081048) AGAP (test code = 2-16 5993743828) BUN (test code = 16 mg/dL 7-23 1711580452) GLUCOSE (test code = 88 mg/dL 70-110 2547415216) CREATININE (test code 0.83 mg/dL 0.6-1.25 = 1233501299) CALCIUM (test code = 8.8 mg/dL 8.6-10.6 9650034994) eGFR Calculation mL/min/1.73m2 (Non-) (test code = 5370202696) eGFR Calculation mL/min/1.73m2 () (test code = 4458280752) HILLARY (test code = HILLARY) Association of [...] or urine or abnormalities in imaging tests). [facility]2020-08-23 10:09:00 Test Item Value Reference Range Interpretation Comments MAGNESIUM (test code = 8146789526) 1.8 mg/dL 1.7-2.4 Lab Interpretation (test code = Normal 85817-9) [facility] DentonUrine [id number] 13:07:00 Test Item Value Reference Range Interpretation Comments URINE CULTURE (test No aerobic growth (< code = 630-4) 1000 CFU/mL) [facility]OL[facility] PAN[facility] (NA, K, CL, CO2, GLUCOSE, BUN, CREATININE, CA)2020-05-20 10:54:00 Test Item Value Reference Range Interpretation Comments NA (test code = 137 mmol/L 135-145 7406197188) K (test code = 4.1 mmol/L 3.5-5 6289524095) CL (test code = 105 mmol/L 98-108 2265854031) CO2 TOTAL (test code = 26 mmol/L 23-31 5530272580) AGAP (test code = 2-16 6237702558) BUN (test code = 16 mg/dL 7-23 0890240448) GLUCOSE (test code = 85 mg/dL 70-110 3614369058) CREATININE (test code 0.85 mg/dL 0.6-1.25 = 4386250518) CALCIUM (test code = 8.7 mg/dL 8.6-10.6 1951862440) eGFR Calculation mL/min/1.73m2 (Non-) (test code = 6507752434) eGFR Calculation mL/min/1.73m2 () (test code = 9544533614) HILLARY (test code = HILLARY) Association of [...] or urine or abnormalities in imaging tests). [facility]enton[facility]2020-08-22 10:54:00 Test Item Value Reference Range Interpretation Comments MAGNESIUM (test code = 5666886760) 1.7 mg/dL 1.7-2.4 Lab Interpretation (test code = Normal 68763-5) [facility] DentonPROCALCITONIN2020-08-21 20:16:00 Test Item Value Reference Range Interpretation Comments Procalcitonin (test 0.44 ng/mL <0.07 H code = 0805682708) HILLARY (test code = HILLARY) INTERPRETATION OF [...] lung abscess/empyema. For further information please refer to:[email or web address] Lab Interpretation Abnormal (test code = 52981-2) [facility] DentonMRSA / MSSA Screen by Melissa [id number] 18:01:00 Test Item Value Reference Range Interpretation Comments MSSA Screen by Melissa PITTMAN (test code Negative Negative = 54854-2) MRSA/MSSA Positive? (test code = No No 1264991174) Lab Interpretation (test code = Normal 22023-8) [facility] DentonCORONAVIRUS COVID-19 [id number] 17:53:00 Test Item Value Reference Range Interpretation Comments SARS-CoV-2 PCR (test Not Detected Not Detected code = 57837-3) HILLARY (test code = HILLARY) [place] Fusion SARS-CoV-2 Assay is a real-time RT-PCR test intended for the qualitative detection of RNA from SARS-CoV-2 from nasopharyngeal (PROJECT MANAGER/DESIGN MANAGER) specimens. It is used under Emergency Use [...] indicated. Lab Interpretation Normal (test code = 16052-3) [facility] DentonProthrombin Time / [id number] 16:34:00 Test Item Value Reference Range Interpretation Comments PROTIME PATIENT (test See_Comment H [Auto mated message] code = 5964-2) The system [employer] generated this result transmitted ref erence range: 10.1 - 1 2.6 Seconds. The reference range was not used to int erpret this result as normal/abnormal . INR (test code = 6301-6) Nor mal INR <1.1; Warfarin Therap eutic range 2.0 to 3. 0 or 2.5 to 3.5, dep ending upon the indica tions. Lab Interpretation (test Abnormal code = 66428-6) [facility] DentonaPTT2020-08-21 16:34:00 Test Item Value Reference Range Interpretation Comments APTT Patient (test code = See_Comment [ Automated message] 3173-2) The system [employer] generated this result transmitted ref erence range: 26 - 36 Seconds. The re ference range was not u sed to interpret this result as normal/abnor mal. Lab Interpretation (test Normal code = 85267-8) [facility] DentonD-[id number] 16:34:00 Test Item Value Reference Interpretation Comments Range D-DIMER (test code = See_Comment H [Autom ated 3476204330) message] The system which generated this result [...] diagnosis. Lab Interpretation Abnormal (test code = 05633-0) [facility] DentonC-REACTIVE [id number] 14:31:00 Test Item Value Reference Range Interpretation Comments CRP (test code = 6164009791) 0.5 mg/dL <0.8 Lab Interpretation (test code = Normal 52379-1) [facility] DentonPNEUMOCOCCAL [id number] 13:18:00 Test Item Value Reference Range Interpretation Comments S. pneumoniae antigen (test code = Negative Negative 4845115599) Lab Interpretation (test code = Normal 57534-6) [facility] DentonLEGIONELLA URINARY ANTIGEN [id number] 13:18:00 Test Item Value Reference Range Interpretation Comments Legionella Urinary Negative Negative Antigen (test code = 0997480629) HILLARY (test code = HILLARY) Negative for [...] test. Lab Interpretation (test Normal code = 86516-9) [facility] DentonFERRITIN [id number] 11:49:00 Test Item Value Reference Range Interpretation Comments FERRITIN (test code = 13.3 ng/mL 18-464 L 1086528616) HILLARY (test code = HILLARY) Biotin has been reported to cause a negative bias, interpret results relative to patient's use of biotin. Lab Interpretation (test Abnormal code = 67699-7) [facility] DentonN-TERMINAL [id number] 10:51:00 Test Item Value Reference Range Interpretation Comments NT-proBNP (test code 76 pg/mL See_Comment [Autom ated = 5667930410) message] The system which generated this result transmitted reference range : <=125. The reference range was not used to interpret this result as normal/abnormal . HILLARY (test code = HILLARY) Biotin has been reported to cause a negative bias, interpret results relative to patient's use of biotin. Lab Interpretation Normal (test code = 06420-7) [facility] DentonCBC with [id number] 09:09:00 Test Item Value Reference Range Interpretation Comments WBC (test code = See_Comment [Automated 8390-2) message] The sy stem which generated this result transmitted reference range : 4.20 - 10.70 10*3/?L. The reference range was not used to interpret this result as normal/abnormal . RBC (test code = See_Comment [Automated 939-8) message] The sy stem which generated this [...] (test code = 37.2 fL 38.5-51.6 L 86397-4) RDW-CV (test code = 12.0 % 12.1-15.4 L 788-0) PLT (test code = See_Comment [Automated 537-3) message] The sy stem which generated this result transmitted reference range : 150 - 328 10*3/ ?L. The reference r kvng was not used to interpret this result as normal/abnormal . MPV (test code = 9.1 fL 9.8-13 L 12634-7) IPF % (test code = 1.5 % 1.2-10.7 Platelet count 5142815389) measured by fluorescence method. NRBC/100 WBC (test See_Comment [Automat ed code = 2423367521) message] The system which generated this result transmitted reference range : 0.0 - 10.0 /100 WBCs. The refer ence range was not u sed to interpret th is result as normal/abnormal . NRBC x10^3 (test code See_Comment [Auto mated = 2747151032) message] The s ystem which generated this result transmitted reference range : 10*3/?L. The reference range was not used to interpret this result as normal/abnormal . GRAN MAT (NEUT) % 80.7 % (test code = 770-8) IMM GRAN % (test code 0.60 % = 0776298048) LYMPH % (test code = 15.4 % 736-9) MONO % (test code = 3.1 % 5905-5) EOS % (test code = 0.0 % 713-8) BASO % (test code = 0.2 % 706-2) GRAN MAT x10^3(ANC) 7.25 10*3/uL 1.99-6.95 H (test code = 6192455952) IMM GRAN x10^3 (test 0.05 10*3/uL 0-0.06 code = 9949376561) LYMPH x10^3 (test code 1.38 10*3/uL 1.09-3.23 = 731-0) MONO x10^3 (test code 0.28 10*3/uL 0.36-1.02 L = 742-7) EOS x10^3 (test code = <0.03 0.06-0.53 L 711-2) BASO x10^3 (test code <0.03 0.01-0.09 = 704-7) Lab Interpretation Abnormal (test code = 90581-3) [facility] Metabolic Panel (NA, K, CL, CO2, Glucose, BUN, Creatinine, CA)2020-05-19 08:57:00 Test Item Value Reference Range Interpretation Comments NA (test code = 135 mmol/L 135-145 3680225361) K (test code = 4.6 mmol/L 3.5-5 6876841095) CL (test code = 106 mmol/L 98-108 2372905794) CO2 TOTAL (test code = 22 mmol/L 23-31 L 1643492195) AGAP (test code = 2-16 0463156591) BUN (test code = 13 mg/dL 7-23 2540669998) GLUCOSE (test code = 85 mg/dL 70-110 2901301835) CREATININE (test code = 0.66 mg/dL 0.6-1.25 2085615022) CALCIUM (test code = 8.9 mg/dL 8.6-10.6 7441898776) eGFR Calculation mL/min/1.73m2 (Non-) (test code = 6586377021) eGFR Calculation mL/min/1.73m2 () (test code = 9808327266) HILLARY (test code = HILLARY) Association of [...] tests). Lab Interpretation Abnormal (test code = 60230-4) [facility] DentonMagnesium [id number] 08:57:00 Test Item Value Reference Range Interpretation Comments MAGNESIUM (test code = 7873548244) 1.9 mg/dL 1.7-2.4 Lab Interpretation (test code = Normal 21290-0) [facility] DentonPhosphorus [id number] 08:57:00 Test Item Value Reference Range Interpretation Comments PHOSPHORUS (test code = 7409516721) 3.9 mg/dL 2.5-5 Lab Interpretation (test code = Normal 14059-3) [facility] DentonHepatic Function Panel (ALB, T.PRO, BILI T, BU/BC, ALT, AST, ALK, PHOS)2020-05-19 08:57:00 Test Item Value Reference Range Interpretation Comments TOTAL BILI (test code = 2371366430) 0.4 mg/dL 0.1-1.1 BILI UNCON (test code = 7245364817) 0.5 mg/dL 0.1-1.1 BILI CONJ (test code = 6042859122) 0.0 mg/dL 0-0.3 T PROTEIN (test code = 9422325200) 6.1 g/dL 6.3-8.2 L ALBUMIN (test code = 2747467479) 3.5 g/dL 3.5-5 ALK PHOS (test code = 8939298742) 58 U/L 34-122 ALTv (test code = 1742-6) 15 U/L 5-50 AST(SGOT) (test code = 0398959146) 38 U/L 13-40 Lab Interpretation (test code = Abnormal 88965-4) [facility] DentonLactate [id number] 08:53:00 Test Item Value Reference Range Interpretation Comments LDH (test code = 8982932249) 419 U/L 300-600 Lab Interpretation (test code = Normal 49133-3) [facility] DentonLactic Acid Whole [id number] 08:36:00 Test Item Value Reference Range Interpretation Comments LACTIC ACID (test code = 0.90 mmol/L 7403085520) [facility] DentonCOVID-19 (ID NOW RAPID TESTING)2020-05-19 03:52:00 Test Item Value Reference Range Interpretation Comments SARS-CoV-2 Rapid ID NOW Not Detected Not Detected (test code = 70395-6) HILLARY (test code = HILLARY) ID NOW COVID-19 Assay is an isothermal nucleic acid amplification test intended for the qualitative detection of nucleic acid from SARS-CoV-2 viral RNA in nasopharyngeal (PROJECT MANAGER/DESIGN MANAGER) specimens. It is used under Emergency Use [...] indicated. Lab Interpretation Normal (test code = 77237-2) [facility] DentonCT HEAD WO [id number] 02:27:59 No acute intracranial abnormality. No traumatic [...] soft tissues and visualized lung apices areunremarkable. [facility], Radiant Results Inft User - 05/18/2020 9:29 [...] reviewed this study and agree with the abovereport.[facility] DentonCT CERVICAL SPINE WO [id number] 02:27:59 No acute intracranial abnormality. No traumatic malalignment or acute fracture of the cervical spine. Preliminary Report Dictated by Resident: David Ospina I, Kang Shahid MD., have reviewed this st udy and [...] reviewed this study and agree with the abovereport.[facility] DentonXR CHEST 1 VW 2020-05-19 01:56:06FINDINGS/IMPRESSION: Suboptimal inspiratory [...] frontal view of the chest was obtained [facility], Radiant Results Inft User - 05/18/2020 8:57 [...] this study and agree with the abovereport. [facility] DentonSALICYLATE2020-08-21 00:58:00 Test Item Value Reference Range Interpretation Comments SALICYLATE (test code <10 mg/L = 7874997087) HILLARY (test code = HILLARY) Therapeutic Range: ? Analgesic and Antipyretic Use ? 20-100 mg/L ? ? Anti-Inflammatory Use ? 100-250 mg/L Toxic Range: ? Greater than 300 mg/L [facility] DentonTROPONIN [id number] 00:40:00 Test Item Value Reference Range Interpretation Comments TROPONIN I (test <0.012 See_Comment [Automated code = 9797278626) message] The system which generated this result [...] ? Lab Interpretation Normal (test code = 17942-2) [facility] DentonBASI METABOLIC PANEL (NA, K, CL, CO2, GLUCOSE, BUN, CREATININE, CA)2020-05-19 00:28:00 Test Item Value Reference Range Interpretation Comments NA (test code = 137 mmol/L 135-145 0529409070) K (test code = 4.0 mmol/L 3.5-5 5818803166) CL (test code = 107 mmol/L 98-108 8960491875) CO2 TOTAL (test code = 25 mmol/L 23-31 4965863857) AGAP (test code = 2-16 0176841596) BUN (test code = 16 mg/dL 7-23 2178834097) GLUCOSE (test code = 130 mg/dL 70-110 H 4077020867) CREATININE (test code = 0.66 mg/dL 0.6-1.25 3667917547) CALCIUM (test code = 9.1 mg/dL 8.6-10.6 1219084197) eGFR Calculation mL/min/1.73m2 (Non-) (test code = 4058028573) eGFR Calculation mL/min/1.73m2 () (test code = 8989467389) HILLARY (test code = HILLARY) Association of [...] tests). Lab Interpretation Abnormal (test code = 01776-4) [facility] DentonURINALYSIS2020-08-21 00:18:00 Test Item Value Reference Range Interpretation Comments APPEARANCE (test code = Clear Clear 1053996179) COLOR (test code = Yellow Yellow 8966385482) PH (test code = 4.8-8.0 1581339921) SP GRAVITY (test code = 1.003-1.030 2657132795) GLU U QUAL (test code = Normal Normal 9769872276) BLOOD (test code = Negative Negative INTERFERE NCE FROM 8993617143) ASCORBIC ACID M AY CAUSE FALSE NEG ATIVE RESULT KETONES (test code = Negative Negative 6074185501) PROTEIN (test code = Negative Negative 2887-8) UROBILIN (test code = Normal Normal 7559743267) BILIRUBIN (test code = Negative Negative 8786396177) NITRITE (test code = Negative Negative 5316224768) LEUK SYDNEE (test code = Negative Negative 5285023617) RBC/HPF (test code = <1 See_Comment [Autom ated message] 0788512204) The system [employer] generated this result transmitted ref erence range: 0 - 3 HP F. The reference range was not used to int erpret this result as normal/abnormal . WBC/HPF (test code = <1 See_Comment [Autom ated message] 7178871449) The system [employer] generated this result transmitted ref erence range: 0 - 5 HP F. The reference range was not used to int erpret this result as normal/abnormal . BACTERIA (test code = Few Negative A 0656474940) MUCOUS (test code = Slight Negative LPF A 1872731983) SQ EPITH (test code = <1 HPF 7521813799) HYAL CAST (test code = See_Comment H [Aut omated message] 7975263849) The system [employer] generated this result transmitted ref erence range: <=2 LPF. The reference range was not used to int erpret this result as normal/abnormal . Lab Interpretation (test Abnormal code = 35050-7) [facility] - DRUG SCREEN [id number] 00:11:00 Test Item Value Reference Range Interpretation Comments BENZO U (test code = Negative Negative 4509195853) ALEC U (test code = Negative Negative 9423445023) AMPHET (test code = Negative Negative 5023724456) THC (test code = Negative Negative 1206104500) METHADONE (test code = Negative Negative 5377724584) Meth U (test code = Presumptive Positive Negative A 6366246858) OPIATES (test code = Negative Negative 0009160658) Cocaine Metabolite (test Negative Negative code = 5330550826) PROPOXY (test code = Negative Negative 9635251651) Tric U (test code = Negative Negative 9936325774) PCP (test code = Negative Negative 8232847836) OXYCOD (test code = Negative Negative 0333900214) HILLARY (test code = HILLARY) Urine Drug [...] testing). Lab Interpretation (test Abnormal code = 95873-6) [facility] DentonAC PANEL 20 + LACTIC [id number] 00:04:00 Test Item Value Reference Range Interpretation Comments PH (test code = 2) 7.35-7.45 PCO2 (test code = See_Comment [Automate d 4214806861) message] The sy stem which generated this result transmitted reference range : 35 - 45 mmHg. The reference range was not used to interpret this result as normal/abnormal . PO2 (test code = See_Comment H [Automated 1376033348) message] The sy stem which generated this result transmitted reference range : 80 - 100 mmHg. The reference range was not used to interpret this result as normal/abnormal . HCO3 (test code = See_Comment [Automate d 6903109705) message] The sy stem which generated this result transmitted reference range : 22 - 26 mEq/L. The reference range was not used to interpret this result as normal/abnormal . BE (test code = See_Comment [Automated 6472710227) message] The sy stem which generated this result transmitted reference range : -3.0 - 3.0 mEq/ L. The reference r kvng was not used to interpret this result as normal/abnormal . THB (test code = 12.8 g/dL 13.5-18 L 1748778758) %O2HB (test code = 98.8 % 94-99 0836420053) %COHB ART (test code = 0.3 % 0-1.5 7163958453) %METHB ART (test code = 0.3 % 0.4-1.5 L 6338836937) VOL%O2 ART (test code = 18.8 % 15-23 1076630665) NA (test code = 135 mmol/L 135-145 4433782390) K+ (test code = 3.8 mmol/L 3.5-5 4680685822) AC CA IONZ (test code = 4.80 mg/dL 4.5-5.3 9893512505) GLUCOSE (test code = 165 mg/dL 70-110 H 1181335776) LACTIC ACID (test code 1.35 mmol/L = 2294897653) Lab Interpretation Abnormal (test code = 16127-1) [facility] DentonETHANOL2020-08-20 23:50:00 Test Item Value Reference Range Interpretation Comments ALCOHOL (test code = <10 mg/dL 9049176481) HILLARY (test code = HILLARY) <10 Lzjrnvsj05-415 Toxic>100 Depression of SPORTS MANAGEMENT INTERN>400 Fatalities Reported [facility] DentonCritical [id number] 23:49:29Janae Still MD ? ? 05/18/2020 ?6:49 [...] treatment, blood draw for specimens and examinationof patientUnBaylor Scott & [facility] WaxahachieLactic Acid Whole [id number] 23:34:00 Test Item Value Reference Range Interpretation Comments LACTIC ACID (test code = 2.55 mmol/L 9475980788) [facility] DentonCB WITH [id number] 23:34:00 Test Item Value Reference Range Interpretation Comments WBC (test code = See_Comment [Automated 7195-2) message] The sy stem which generated this result transmitted reference range : 4.20 - 10.70 10*3/?L. The reference range was not used to interpret this result as normal/abnormal . RBC (test code = See_Comment [Automated 559-8) message] The sy stem which generated this [...] (test code = 36.8 fL 38.5-51.6 L 58800-9) RDW-CV (test code = 11.9 % 12.1-15.4 L 788-0) PLT (test code = See_Comment [Automated 857-3) message] The sy stem which generated this result transmitted reference range : 150 - 328 10*3/ ?L. The reference r kvng was not used to interpret this result as normal/abnormal . MPV (test code = 9.3 fL 9.8-13 L 20401-1) NRBC/100 WBC (test See_Comment [Automat ed code = 8737450329) message] The system which generated this result transmitted reference range : 0.0 - 10.0 /100 WBCs. The refer ence range was not u sed to interpret th is result as normal/abnormal . NRBC x10^3 (test code <0.01 See_Comment [Auto mated = 4575128045) message] The s ystem which generated this result transmitted reference range : 10*3/?L. The reference range was not used to interpret this result as normal/abnormal . GRAN MAT (NEUT) % 74.7 % (test code = 770-8) IMM GRAN % (test code 0.50 % = 2827654798) LYMPH % (test code = 18.3 % 736-9) MONO % (test code = 5.6 % 5905-5) EOS % (test code = 0.5 % 713-8) BASO % (test code = 0.4 % 706-2) GRAN MAT x10^3(ANC) 7.17 10*3/uL 1.99-6.95 H (test code = 9464364236) IMM GRAN x10^3 (test 0.05 10*3/uL 0-0.06 code = 2752628789) LYMPH x10^3 (test code 1.76 10*3/uL 1.09-3.23 = 731-0) MONO x10^3 (test code 0.54 10*3/uL 0.36-1.02 = 742-7) EOS x10^3 (test code = 0.05 10*3/uL 0.06-0.53 L 711-2) BASO x10^3 (test code 0.04 10*3/uL 0.01-0.09 = 704-7) Lab Interpretation Abnormal (test code = 71611-5) [facility] DentonCT CHEST PULMONARY [id number] 03:59:23 No evidence of a pulmonary embolism [...] reviewed this study and agree with the abovereport.[facility] DentonXR CHEST 1 VW COVID 2020-05-17 03:19:00 No acute intrathoracic abnormality, specifically no radiographic findingsto suggest COVID-19 pneumonia. Disclaimer: Generally, the findings on chest imaging in COVID-19 are notspecific, and overlap with other infections, including influenza, H1N1,SARS and MERS.According to the Centers for Disease Control (CDC) and recent statement ofthe [employer], viral testing remains the [...] Disease Control (CDC) and recent statement ofthe [employer], viral testing remains the only specificmethod of diagnosis. Confirmation with the viral test is required, even ifradiologic findings are suggestive of COVID- [address] Preliminary Report Dictated by Resident: Bebeto Garcia MD., have reviewed this study and agree with the abovereport.[facility] [id number] 01:41:00 Test Item Value Reference Range Interpretation Comments TROPONIN I (test <0.012 See_Comment [Automated code = 8245051144) message] The system which generated this result [...] ? Lab Interpretation Normal (test code = 51039-0) [facility] DentonD-[id number] 01:39:00 Test Item Value Reference Interpretation Comments Range D-DIMER (test code = See_Comment H [Autom ated [id number]) message] The system which generated this result [...] diagnosis. Lab Interpretation Abnormal (test code = 21160-9) [facility] [id number] 01:37:00 Test Item Value Reference Range Interpretation Comments NT-proBNP (test code 65 pg/mL See_Comment [Autom ated = [id number]) message] The system which generated this result transmitted reference range : <=125. The reference range was not used to interpret this result as normal/abnormal . HILLARY (test code = HILLARY) Biotin has been reported to cause a negative bias, interpret results relative to patient's use of biotin. Lab Interpretation Normal (test code = 54623-4) [facility] (ID NOW RAPID TESTING)2020-05-17 01:31:00 Test Item Value Reference Range Interpretation Comments SARS-CoV-2 Rapid ID NOW Positive Not Detected A (test code = 09701-7) HILLARY (test code = HILLARY) ID NOW COVID-19 Assay is an isothermal nucleic acid amplification test intended for the qualitative detection of nucleic acid from SARS-CoV-2 viral RNA in nasopharyngeal (PROJECT MANAGER/DESIGN MANAGER) specimens. It is used under Emergency Use [...] indicated. Lab Interpretation Abnormal (test code = 01434-3) [facility]enton[facility]HROM[facility] / [id number] 01:29:00 Test Item Value Reference Range Interpretation Comments PROTIME PATIENT (test See_Comment [Auto mated message] code = 5964-2) The system Heal[employer]ion generated this result transmitted ref erence range: 12.0 - 1 4.7 Seconds. The re ference range was not u sed to interpret this result as normal/abnor mal. INR (test code = 6301-6) Nor mal INR <1.1; Warfarin Therap eutic range 2.0 to 3. 0 or 2.5 to 3.5, dep ending upon the indica tions. Lab Interpretation (test Normal code = 42377-8) [facility] METABOLIC PANEL ([id number])2020-05-17 01:29:00 Test Item Value Reference Range Interpretation Comments NA (test code = 139 mmol/L 135-145 9235977187) K (test code = 3.9 mmol/L 3.5-5 9834250295) CL (test code = 104 mmol/L 98-108 0162805882) CO2 TOTAL (test code = 26 mmol/L 23-31 6206808983) AGAP (test code = 2-16 0825731379) BUN (test code = 20 mg/dL 7-23 0856811969) GLUCOSE (test code = 103 mg/dL 70-110 7903890045) CREATININE (test code 0.85 mg/dL 0.6-1.25 = 1290407336) TOTAL BILI (test code 0.2 mg/dL 0.1-1.1 = 5358741051) CALCIUM (test code = 9.2 mg/dL 8.6-10.6 2958673077) T PROTEIN (test code = 7.1 g/dL 6.3-8.2 5931379081) ALBUMIN (test code = 4.3 g/dL 3.5-5 0247924467) ALK PHOS (test code = 80 U/L 34-122 1256086087) ALTv (test code = 16 U/L 5-50 1742-6) AST(SGOT) (test code = 26 U/L 13-40 9226245561) eGFR Calculation mL/min/1.73m2 (Non-) (test code = 9773995129) eGFR Calculation mL/min/1.73m2 () (test code = 3799990247) HILLARY (test code = HILLARY) Association of [...] or urine or abnormalities in imaging tests). [facility]entonLIPASE, [id number] 01:29:00 Test Item Value Reference Range Interpretation Comments LIPASE (test code = 6816385127) 105 U/L 0-220 Lab Interpretation (test code = Normal 61765-8) [facility] WITH [id number] 01:16:00 Test Item Value Reference Range Interpretation Comments WBC (test code = See_Comment [Automated 7390-2) message] The sy stem which generated this [...] (test code = 37.2 fL 38.5-51.6 L 30005-8) RDW-CV (test code = 11.9 % 12.1-15.4 L 788-0) PLT (test code = See_Comment [Automated 777-3) message] The sy stem which generated this result transmitted reference range : 150 - 328 10*3/ ?L. The reference r kvng was not used to interpret this result as normal/abnormal . MPV (test code = 8.9 fL 9.8-13 L 55209-2) NRBC/100 WBC (test See_Comment [Automat ed code = 2848304684) message] The system which generated this result transmitted reference range : 0.0 - 10.0 /100 WBCs. The refer ence range was not u sed to interpret th is result as normal/abnormal . NRBC x10^3 (test code <0.01 See_Comment [Auto mated = 1956153983) message] The s ystem which generated this result transmitted reference range : 10*3/?L. The reference range was not used to interpret this result as normal/abnormal . GRAN MAT (NEUT) % 47.7 % (test code = 770-8) IMM GRAN % (test code 0.30 % = 6566995384) LYMPH % (test code = 44.2 % 736-9) MONO % (test code = 5.8 % 5905-5) EOS % (test code = 1.5 % 713-8) BASO % (test code = 0.5 % 706-2) GRAN MAT x10^3(ANC) 3.72 10*3/uL 1.99-6.95 (test code = 9996824425) IMM GRAN x10^3 (test <0.03 0-0.06 code = 2187208338) LYMPH x10^3 (test code 3.45 10*3/uL 1.09-3.23 H = 731-0) MONO x10^3 (test code 0.45 10*3/uL 0.36-1.02 = 742-7) EOS x10^3 (test code = 0.12 10*3/uL 0.06-0.53 711-2) BASO x10^3 (test code 0.04 10*3/uL 0.01-0.09 = 704-7) Lab Interpretation Abnormal (test code = 30727-0) [id number] 07:30:00 Test Item Value Reference Range Interpretation [...] LDL) mg/dLNEAR OPTIMAL/ABOVE OPTIMAL........ .100-12 9 mg/dL BORDERL INE HIGH.........13 0-159 mg/dL HIGH.........16 0-189 mg/dL VERY [...] (test MG/DL 0-99 code = LDL) PROTHROMBIN [id number] 06:57:00 Test Item Value Reference Range Interpretation Comments PROTHROMBIN TIME 12.2 SECONDS 9.4-12.5 N PATIENT (test code = PTP) INTERNATIONAL NORMAL 1.1 The INR is to be RATIO (test code = used only for INR) monitoring oral anticoagulantth erap y. INDICATION I NR VALUE ---- ---- ---- -------1. Prophylaxis, de ep venous thrombos is, including high risk surgery. 2.0 - 3.0 2. Prophylaxis, deep venous thrombosis, hip surgery, treatm ent for deep venous thrombosis or pulmonary prevention of systemic emboli sm in patients wit h valvular heart disease, atrial fibrillation, tissue heart va lve, or acute myocar dial infarction. 2.0 - 3.0 3. Ward Nurse al prosthesis hear t valves, recurre nt systemic emboli sm. 3.0 - 4.5 PTT [id number] 06:57:00 Test Item Value Reference Range Interpretation Comments PTT ACTIVATED (test code = APTT) 31.6 SECONDS 25.1-36.5 N [id number] 03:04:00 Test Item Value Reference Range Interpretation Comments TROPONIN-I (test code = TROPI) < 0.012 NG/ML 0.012-0.033 L URINALYSIS [id number] 22:15:00 Test Item Value Reference Range Interpretation [...] OF URINE: CLEAN CATCHDRUGS OF ABUSE SCREEN [id number] 22:15:00 Test Item Value Reference Range Interpretation [...] = PHENCU) SOURCE OF URINE: CLEAN CATCHURINALYSIS [id number] 22:15:00 Test Item Value Reference Range Interpretation [...] OF URINE: CLEAN CATCHDRUGS OF ABUSE SCREEN [id number] 22:15:00 Test Item Value Reference Range Interpretation [...] PHENCU) ng/mL SOURCE OF URINE: CLEAN CATCHURINALYSIS [id number] 22:14:00 Test Item Value Reference Range Interpretation [...] OF URINE: CLEAN CATCHDRUGS OF ABUSE SCREEN [id number] 22:14:00 Test Item Value Reference Range Interpretation [...] = PHENCU) SOURCE OF URINE: CLEAN CATCHURINALYSIS [id number] 22:13:00 Test Item Value Reference Range Interpretation [...] OF URINE: CLEAN CATCHDRUGS OF ABUSE SCREEN [id number] 22:13:00 Test Item Value Reference Range Interpretation [...] = PHENCU) SOURCE OF URINE: CLEAN CATCHURINALYSIS [id number] 22:12:00 Test Item Value Reference Range Interpretation [...] OF URINE: CLEAN CATCHDRUGS OF ABUSE SCREEN [id number] 22:12:00 Test Item Value Reference Range Interpretation [...] = PHENCU) SOURCE OF URINE: CLEAN CATCHURINALYSIS [id number] 22:11:00 Test Item Value Reference Range Interpretation [...] OF URINE: CLEAN CATCHDRUGS OF ABUSE SCREEN [id number] 22:11:00 Test Item Value Reference Range Interpretation [...] = PHENCU) SOURCE OF URINE: CLEAN CATCHURINALYSIS [id number] 22:04:00 Test Item Value Reference Range Interpretation [...] OF URINE: CLEAN CATCHDRUGS OF ABUSE SCREEN [id number] 22:04:00 Test Item Value Reference Range Interpretation [...] NEGATIVE PHENCU) SOURCE OF URINE: CLEAN CATCHURINALYSIS [id number] 21:57:00 Test Item Value Reference Range Interpretation [...] OF URINE: CLEAN CATCHDRUGS OF ABUSE SCREEN [id number] 21:57:00 Test Item Value Reference Range Interpretation [...] PHENCU) SOURCE OF URINE: CLEAN CATCHB-TYPE NATRIURETIC [id number] 21:14:00 Test Item Value Reference Range Interpretation Comments B-TYPE NATRIURETIC PEPTIDE (test 21.0 PG/ML 0-100 N code = BNP) BASIC METABOLIC [id number] 20:14:00 Test Item Value Reference Range Interpretation [...] code = 9.3 MG/DL 8.4-10.2 N CA) [id number] 20:14:00 Test Item Value Reference Range Interpretation Comments TROPONIN-I (test code = TROPI) < 0.012 NG/ML 0.012-0.033 L BASIC METABOLIC [id number] 20:02:00 Test Item Value Reference Range Interpretation [...] code = 9.3 MG/DL 8.4-10.2 N CA) [id number] 20:02:00 Test Item Value Reference Range Interpretation Comments TROPONIN-I (test code = TROPI) NG/ML 0.0-0.045 CBC W/AUTO [id number] 20:02:00 Test Item Value Reference Range Interpretation [...] 0.00 K/mm3 0.0-0.1 N NRBC#) BASIC METABOLIC [id number] 20:01:00 Test Item Value Reference Range Interpretation [...] CALCIUM (test code = MG/DL 8.7-9.7 CA) [id number] 20:01:00 Test Item Value Reference Range Interpretation Comments TROPONIN-I (test code = TROPI) NG/ML 0.0-0.045 BASIC METABOLIC [id number] 19:58:00 Test Item Value Reference Range Interpretation [...] CALCIUM (test code = CA) MG/DL 8.7-9.7 [id number] 19:58:00 Test Item Value Reference Range Interpretation Comments TROPONIN-I (test code = TROPI) NG/ML 0.0-0.045 - XR CHEST [id number] 19:18:00 Patient Name: SYDNI HARRIS Unit No: [id number] EXAMS: CPT CODE: [id number] XR CHEST 1V 63007 LOCATION: Q15 HISTORY: 24-year-old male who presents with chest pain. COMMENT: A frontal chest radiograph was obtained at 7:11 p.m. The lungs are clear. The cardiac silhouette, ole, and mediastinum are unremarkable. Orthopedic hardware is seen overlying the dorsal spine. The soft tissues are unremarkable. IMPRESSION: There is no radiographic evidence of acute cardiopulmonary disease. at 1918 Reported and signed by: Jada Li M.D. CC: Juan Carlin MD Technologist: Mena Ingram (RT) Transcrpt Date/Tm/Trnsp: 12/10/2019 (1917) SkinnyRLA2 Orig Print D/T: S: 12/10/2019 (1920) VERONICA Kilbourne NAME: SYDNI HARRIS [id number] PHYS: [place] [address] : 1995 AGE: 24 SEX: M LOC: ANDI PHONE #: [phone] EXAM DATE: 12/10/2019 STATUS: PRE ER FAX #: [phone] RADIOLOGY NO: PAGE 1 Signed ReportCHEM PANEL 2019-12-03 00:03:00 Test Item Value Reference Range Interpretation Comments A/G Ratio (test code = A/G Ratio) 1.1 1 0.7-1.6 [facility] [id number] 00:03:00 Test Item Value Reference Range Interpretation Comments eGFR (test code = eGFR) 128 [facility]pzncsbPKRJKJTVZS8104-70-34 00:03:00 Test Item Value Reference Range Interpretation Comments WBC (test code = WBC) 6.5 3.7-10.4 [facility]HjbtnmxZUOPQDSGDV5257-41-42 00:03:00 Test Item Value Reference Range Interpretation Comments RBC (test code = RBC) 4.26 4.70-6.10 [facility]VkuxjagEJSGMNBSSI8958-99-92 00:03:00 Test Item Value Reference Range Interpretation Comments Hgb (test code = Hgb) 13.0 14.0-18.0 [facility]ZstqswgFOKNPXLRDI3827-60-66 00:03:00 Test Item Value Reference Range Interpretation Comments Hct (test code = Hct) 37.1 42.0-54.0 [facility] CampusMcwtibtCMWPJKKCDL2812-15-90 00:03:00 Test Item Value Reference Range Interpretation Comments MCV (test code = MCV) 87.0 80.0-94.0 [facility] CampusFrunazvOOIXSZONYC4932-79-59 00:03:00 Test Item Value Reference Range Interpretation Comments MCH (test code = MCH) 30.5 pg 27.0-31.0 [facility]IqfpqphVBVMTAIJNA0370-05-77 00:03:00 Test Item Value Reference Range Interpretation Comments MCHC (test code = MCHC) 35.1 32.0-36.0 [facility] HospitalAmzrmodTZGFHWNJEH9907-08-63 00:03:00 Test Item Value Reference Range Interpretation Comments RDW (test code = RDW) 13.7 11.5-14.5 [facility] HospitalZbxdwidAKACMHQGED5227-31-44 00:03:00 Test Item Value Reference Range Interpretation Comments Platelet (test code = Platelet) 245 133-450 [facility] HospitalQvkwcnmSOCLTFINUP3060-03-90 00:03:00 Test Item Value Reference Range Interpretation Comments MPV (test code = MPV) 6.7 7.4-10.4 [facility] HospitalLdvsshpYQQAHJHZXL4648-84-29 00:03:00 Test Item Value Reference Range Interpretation Comments Segs (test code = Segs) 56.0 45.0-75.0 [facility] HospitalVqnhhruKCBFHNANKC0241-33-51 00:03:00 Test Item Value Reference Range Interpretation Comments Lymphocytes (test code = Lymphocytes) 36.0 20.0-40.0 [facility] HospitalQjlvbooSFSWPJRMPW8362-19-68 00:03:00 Test Item Value Reference Range Interpretation Comments Monocytes (test code = Monocytes) 6.0 2.0-12.0 [facility] HospitalGjcgvhtIVFHSZTROI3396-58-85 00:03:00 Test Item Value Reference Range Interpretation Comments Eosinophils (test code = Eosinophils) 1.5 <=4.0 [facility] HospitalHqxnudoRWSBFWPOYT1677-75-88 00:03:00 Test Item Value Reference Range Interpretation Comments Basophils (test code = Basophils) 0.5 <=1.0 [facility] HospitalLhfrgiqQKVDFFDRMT8106-52-85 00:03:00 Test Item Value Reference Range Interpretation Comments Neutrophils # (test code = Neutrophils 3.7 1.5-8.1 #) [facility] HospitalXtmodflIZZNIWDGXY3139-67-62 00:03:00 Test Item Value Reference Range Interpretation Comments Lymphocytes # (test code = Lymphocytes 2.3 1.0-5.5 #) [facility] HospitalQhddqzjAFJRXUAKBV9046-89-32 00:03:00 Test Item Value Reference Range Interpretation Comments Monocytes # (test code = Monocytes #) 0.4 <=0.8 [facility] HospitalLeteypzUDTLWJMIBC8449-85-51 00:03:00 Test Item Value Reference Range Interpretation Comments Eosinophils # (test code = Eosinophils 0.1 <=0.5 #) [facility] CampusCARAC [id number] 00:03:00 Test Item Value Reference Range Interpretation Comments Total CK (test code = Total CK) 109 12-191 [facility] VHIIMAV8483-45-52 00:03:00 Test Item Value Reference Range Interpretation Comments Troponin-I (test code = Troponin-I) no gt <=0.40 [facility] [id number] 00:03:00 Test Item Value Reference Range Interpretation Comments Glucose Lvl (test code = Glucose Lvl) 112 70-99 [facility] [id number] 00:03:00 Test Item Value Reference Range Interpretation Comments BUN (test code = BUN) 13 7-22 [facility] [id number] 00:03:00 Test Item Value Reference Range Interpretation Comments Creatinine Lvl (test code = Creatinine 0.78 0.50-1.40 Lvl) [facility] [id number] 00:03:00 Test Item Value Reference Range Interpretation Comments Sodium Lvl (test code = Sodium Lvl) 141 135-145 [facility] [id number] 00:03:00 Test Item Value Reference Range Interpretation Comments Potassium Lvl (test code = Potassium 3.8 3.5-5.1 Lvl) [facility] [id number] 00:03:00 Test Item Value Reference Range Interpretation Comments Chloride Lvl (test code = Chloride Lvl) 108 95-109 [facility] [id number] 00:03:00 Test Item Value Reference Range Interpretation Comments CO2 (test code = CO2) 28 24-32 [facility] [id number] 00:03:00 Test Item Value Reference Range Interpretation Comments Calcium Lvl (test code = Calcium Lvl) 9.3 8.5-10.5 [facility] [id number] 00:03:00 Test Item Value Reference Range Interpretation Comments Total Protein (test code = Total 7.5 6.4-8.4 Protein) [facility] [id number] 00:03:00 Test Item Value Reference Range Interpretation Comments Albumin Lvl (test code = Albumin Lvl) 4.0 3.5-5.0 [facility] [id number] 00:03:00 Test Item Value Reference Range Interpretation Comments ALT (test code = ALT) 21 <=65 [facility] [id number] 00:03:00 Test Item Value Reference Range Interpretation Comments AST (test code = AST) 16 <=37 [facility] [id number] 00:03:00 Test Item Value Reference Range Interpretation Comments Alk Phos (test code = Alk Phos) 96 39-136 [facility] [id number] 00:03:00 Test Item Value Reference Range Interpretation Comments Bili Total (test code = Bili Total) 0.4 0.2-1.3 [facility] [id number] 00:03:00 Test Item Value Reference Range Interpretation Comments AGAP (test code = AGAP) 8.8 10.0-20.0 [facility] HTCDW9233-04-30 00:03:00 Test Item Value Reference Range Interpretation Comments B/C Ratio (test code = B/C Ratio) 17 1 6-25 [facility] [id number] 00:03:00 Test Item Value Reference Range Interpretation Comments Globulin (test code = Globulin) 3.5 2.7-4.2 [facility] [id number] 00:03:00 Test Item Value Reference Range Interpretation Comments A/G Ratio (test code = A/G Ratio) 1.1 1 0.7-1.6 [facility] [id number] 00:03:00 Test Item Value Reference Range Interpretation Comments eGFR (test code = eGFR) 128 [facility] CampusMfpepboBIMSHKZILO2522-68-59 00:03:00 Test Item Value Reference Range Interpretation Comments WBC (test code = WBC) 6.5 3.7-10.4 [facility] HospitalZpthsewCGRDXXYMNX6125-55-53 00:03:00 Test Item Value Reference Range Interpretation Comments RBC (test code = RBC) 4.26 4.70-6.10 [facility] HospitalJxvhezbALHEBNEIVN3688-40-13 00:03:00 Test Item Value Reference Range Interpretation Comments Hgb (test code = Hgb) 13.0 14.0-18.0 [facility] HospitalJsofjdpDUCAYFVIRX8478-91-24 00:03:00 Test Item Value Reference Range Interpretation Comments Hct (test code = Hct) 37.1 42.0-54.0 [facility] HospitalEkwqomzBOBSQVMNZW3668-58-09 00:03:00 Test Item Value Reference Range Interpretation Comments MCV (test code = MCV) 87.0 80.0-94.0 [facility] CampusWrwfutzYMEQAWTOUS6926-22-38 00:03:00 Test Item Value Reference Range Interpretation Comments MCH (test code = MCH) 30.5 pg 27.0-31.0 [facility]MdivttlSNMJXJLBNU8166-95-42 00:03:00 Test Item Value Reference Range Interpretation Comments MCHC (test code = MCHC) 35.1 32.0-36.0 [facility] CenterXrdqiywVWBNNXNIIF3524-08-14 00:03:00 Test Item Value Reference Range Interpretation Comments RDW (test code = RDW) 13.7 11.5-14.5 [facility] CenterCzuquikJKGZXKYNFY9076-63-51 00:03:00 Test Item Value Reference Range Interpretation Comments Platelet (test code = Platelet) 245 133-450 [facility] CenterDqfcydiBPGSUURVVT1098-18-22 00:03:00 Test Item Value Reference Range Interpretation Comments MPV (test code = MPV) 6.7 7.4-10.4 [facility] CenterEcdmbsuJOJHFZHWBH3250-25-28 00:03:00 Test Item Value Reference Range Interpretation Comments Segs (test code = Segs) 56.0 45.0-75.0 [facility] CenterDrhqscqCLWMZTXDDM2147-80-98 00:03:00 Test Item Value Reference Range Interpretation Comments Lymphocytes (test code = Lymphocytes) 36.0 20.0-40.0 [facility] CenterAoqrnrlGYMVPQZBPX2683-01-97 00:03:00 Test Item Value Reference Range Interpretation Comments Monocytes (test code = Monocytes) 6.0 2.0-12.0 [facility] CenterOfvwgvsHDIYJWOFRQ5768-35-08 00:03:00 Test Item Value Reference Range Interpretation Comments Eosinophils (test code = Eosinophils) 1.5 <=4.0 [facility] CenterPpeinwrAXHUHWNTOZ6013-52-17 00:03:00 Test Item Value Reference Range Interpretation Comments Basophils (test code = Basophils) 0.5 <=1.0 [facility] CenterZfsidrbBIUSHAEBCR9140-02-29 00:03:00 Test Item Value Reference Range Interpretation Comments Neutrophils # (test code = Neutrophils 3.7 1.5-8.1 #) [facility] CenterQozkrswGMHFJUXRMD3334-37-90 00:03:00 Test Item Value Reference Range Interpretation Comments Lymphocytes # (test code = Lymphocytes 2.3 1.0-5.5 #) [facility] CenterZkcsrxfFOOCXBLPQO1059-73-16 00:03:00 Test Item Value Reference Range Interpretation Comments Monocytes # (test code = Monocytes #) 0.4 <=0.8 [facility] CampusRhazpasGLKOLYEFFS0093-53-09 00:03:00 Test Item Value Reference Range Interpretation Comments Eosinophils # (test code = Eosinophils 0.1 <=0.5 #) [facility] CampusCARAC BLNVZCH3213-72-13 00:03:00 Test Item Value Reference Range Interpretation Comments Total CK (test code = Total CK) 109 12-191 [facility] FMQQMNT2396-67-67 00:03:00 Test Item Value Reference Range Interpretation Comments Troponin-I (test code = Troponin-I) no gt <=0.40 [facility] [id number] 00:03:00 Test Item Value Reference Range Interpretation Comments Glucose Lvl (test code = Glucose Lvl) 112 70-99 [facility] [id number] 00:03:00 Test Item Value Reference Range Interpretation Comments BUN (test code = BUN) 13 7-22 [facility] [id number] 00:03:00 Test Item Value Reference Range Interpretation Comments Creatinine Lvl (test code = Creatinine 0.78 0.50-1.40 Lvl) [facility] [id number] 00:03:00 Test Item Value Reference Range Interpretation Comments Sodium Lvl (test code = Sodium Lvl) 141 135-145 [facility] [id number] 00:03:00 Test Item Value Reference Range Interpretation Comments Potassium Lvl (test code = Potassium 3.8 3.5-5.1 Lvl) [facility] [id number] 00:03:00 Test Item Value Reference Range Interpretation Comments Chloride Lvl (test code = Chloride Lvl) 108 95-109 [facility] [id number] 00:03:00 Test Item Value Reference Range Interpretation Comments CO2 (test code = CO2) 28 24-32 [facility] [id number] 00:03:00 Test Item Value Reference Range Interpretation Comments Calcium Lvl (test code = Calcium Lvl) 9.3 8.5-10.5 [facility] [id number] 00:03:00 Test Item Value Reference Range Interpretation Comments Total Protein (test code = Total 7.5 6.4-8.4 Protein) [facility] [id number] 00:03:00 Test Item Value Reference Range Interpretation Comments Albumin Lvl (test code = Albumin Lvl) 4.0 3.5-5.0 [facility] [id number] 00:03:00 Test Item Value Reference Range Interpretation Comments ALT (test code = ALT) 21 <=65 [facility] [id number] 00:03:00 Test Item Value Reference Range Interpretation Comments AST (test code = AST) 16 <=37 [facility] [id number] 00:03:00 Test Item Value Reference Range Interpretation Comments Alk Phos (test code = Alk Phos) 96 39-136 [facility] [id number] 00:03:00 Test Item Value Reference Range Interpretation Comments Bili Total (test code = Bili Total) 0.4 0.2-1.3 [facility] [id number] 00:03:00 Test Item Value Reference Range Interpretation Comments AGAP (test code = AGAP) 8.8 10.0-20.0 [facility] [id number] 00:03:00 Test Item Value Reference Range Interpretation Comments B/C Ratio (test code = B/C Ratio) 17 1 6-25 [facility] [id number] 00:03:00 Test Item Value Reference Range Interpretation Comments Globulin (test code = Globulin) 3.5 2.7-4.2 [facility] MinilogsCARDIAC [id number] 23:21:00 Test Item Value Reference Range Interpretation Comments Troponin-I (test code = Troponin-I) no gt <=0.40 [facility] [employer] [id number] 23:21:00 Test Item Value Reference Range Interpretation Comments Glucose Lvl (test code = Glucose Lvl) 87 70-99 [facility] [employer] [id number] 23:21:00 Test Item Value Reference Range Interpretation Comments BUN (test code = BUN) 17 7-22 [facility] [employer] [id number] 23:21:00 Test Item Value Reference Range Interpretation Comments Creatinine Lvl (test code = Creatinine 0.87 0.50-1.40 Lvl) [facility] [id number] 23:21:00 Test Item Value Reference Range Interpretation Comments Sodium Lvl (test code = Sodium Lvl) 139 135-145 [place] 148300-03-03 23:21:00 Test Item Value Reference Range Interpretation Comments Potassium Lvl (test code = Potassium 3.8 3.5-5.1 Lvl) [place] 148300-03-03 23:21:00 Test Item Value Reference Range Interpretation Comments Chloride Lvl (test code = Chloride Lvl) 107 95-109 [place] 148300-03-03 23:21:00 Test Item Value Reference Range Interpretation Comments CO2 (test code = CO2) 27 24-32 [place] 9[address]-03-03 23:21:00 Test Item Value Reference Range Interpretation Comments Calcium Lvl (test code = Calcium Lvl) 9.1 8.5-10.5 [place] 148300-03-03 23:21:00 Test Item Value Reference Range Interpretation Comments AGAP (test code = AGAP) 8.8 10.0-20.0 [place] 148300-03-03 23:21:00 Test Item Value Reference Range Interpretation Comments eGFR (test code = eGFR) 122 [place] 435780-03-03 23:21:00 Test Item Value Reference Range Interpretation Comments WBC (test code = WBC) 7.8 3.7-10.4 [place] [address]-03-03 23:21:00 Test Item Value Reference Range Interpretation Comments RBC (test code = RBC) 4.54 4.70-6.10 [place] [address]-03-03 23:21:00 Test Item Value Reference Range Interpretation Comments Hgb (test code = Hgb) 13.6 14.0-18.0 [place] [address]-03-03 23:21:00 Test Item Value Reference Range Interpretation Comments Hct (test code = Hct) 39.2 42.0-54.0 [place] [address]-03-03 23:21:00 Test Item Value Reference Range Interpretation Comments MCV (test code = MCV) 86.4 80.0-94.0 [place] [address]-03-03 23:21:00 Test Item Value Reference Range Interpretation Comments MCH (test code = MCH) 29.9 pg 27.0-31.0 [place] [address]-03-03 23:21:00 Test Item Value Reference Range Interpretation Comments MCHC (test code = MCHC) 34.6 32.0-36.0 [facility]XpregoqNKKMKZPGHI6089-38-07 23:21:00 Test Item Value Reference Range Interpretation Comments RDW (test code = RDW) 14.2 11.5-14.5 [place] [address]-03-03 23:21:00 Test Item Value Reference Range Interpretation Comments Platelet (test code = Platelet) 268 133-450 [facility] CenterXgibwbkWDLQQSODIG4939-48-16 23:21:00 Test Item Value Reference Range Interpretation Comments MPV (test code = MPV) 6.3 7.4-10.4 [facility] CenterOtevzcaLXEVUSQBLT4881-30-01 23:21:00 Test Item Value Reference Range Interpretation Comments D-Dimer (test code = D-Dimer) 1.01 [facility] CenterFwficxyOVWOKCZZCW0583-80-79 23:21:00 Test Item Value Reference Range Interpretation Comments Segs (test code = Segs) 50.7 45.0-75.0 [facility] CenterPbhuzkpYXBLQMLPLY3276-58-98 23:21:00 Test Item Value Reference Range Interpretation Comments Lymphocytes (test code = Lymphocytes) 40.5 20.0-40.0 [facility] CenterDvludglDOPCSIOSMA1493-29-08 23:21:00 Test Item Value Reference Range Interpretation Comments Monocytes (test code = Monocytes) 6.1 2.0-12.0 [facility] CenterXlkiyjgACDTGDKUQW4841-35-61 23:21:00 Test Item Value Reference Range Interpretation Comments Eosinophils (test code = Eosinophils) 2.0 <=4.0 [place] [address]-03-03 23:21:00 Test Item Value Reference Range Interpretation Comments Basophils (test code = Basophils) 0.7 <=1.0 [place] [address]-03-03 23:21:00 Test Item Value Reference Range Interpretation Comments Neutrophils # (test code = Neutrophils 4.0 1.5-8.1 #) [place] 435780-03-03 23:21:00 Test Item Value Reference Range Interpretation Comments Lymphocytes # (test code = Lymphocytes 3.2 1.0-5.5 #) [facility] CenterDnncstmGKHNWNTOQL5380-15-21 23:21:00 Test Item Value Reference Range Interpretation Comments Monocytes # (test code = Monocytes #) 0.5 <=0.8 [facility]HDFK8148-[facility] 23:21:00 Test Item Value Reference Range Interpretation Comments Eosinophils # (test code = Eosinophils 0.2 <=0.5 #) [facility]AqiccjwNBOAOAIECW6605-27-58 23:21:00 Test Item Value Reference Range Interpretation Comments Basophils # (test code = Basophils #) 0.1 <=0.2 [facility] CampusCARDIAC [id number] 23:21:00 Test Item Value Reference Range Interpretation Comments Troponin-I (test code = Troponin-I) no gt <=0.40 [facility] [id number] 23:21:00 Test Item Value Reference Range Interpretation Comments Glucose Lvl (test code = Glucose Lvl) 87 70-99 [facility] [id number] 23:21:00 Test Item Value Reference Range Interpretation Comments BUN (test code = BUN) 17 7-22 [facility] [id number] 23:21:00 Test Item Value Reference Range Interpretation Comments Creatinine Lvl (test code = Creatinine 0.87 0.50-1.40 Lvl) [facility] [id number] 23:21:00 Test Item Value Reference Range Interpretation Comments Sodium Lvl (test code = Sodium Lvl) 139 135-145 [facility] [id number] 23:21:00 Test Item Value Reference Range Interpretation Comments Potassium Lvl (test code = Potassium 3.8 3.5-5.1 Lvl) [facility] [id number] 23:21:00 Test Item Value Reference Range Interpretation Comments Chloride Lvl (test code = Chloride Lvl) 107 95-109 [facility] [id number] 23:21:00 Test Item Value Reference Range Interpretation Comments CO2 (test code = CO2) 27 24-32 [facility] [id number] 23:21:00 Test Item Value Reference Range Interpretation Comments Calcium Lvl (test code = Calcium Lvl) 9.1 8.5-10.5 [facility] [id number] 23:21:00 Test Item Value Reference Range Interpretation Comments AGAP (test code = AGAP) 8.8 10.0-20.0 [facility] [id number] 23:21:00 Test Item Value Reference Range Interpretation Comments eGFR (test code = eGFR) 122 [facility] CenterHuxdaxwTMVPDRCYFS8931-61-49 23:21:00 Test Item Value Reference Range Interpretation Comments WBC (test code = WBC) 7.8 3.7-10.4 [facility] CenterVrkqureTOKKCOSCTT5956-65-59 23:21:00 Test Item Value Reference Range Interpretation Comments RBC (test code = RBC) 4.54 4.70-6.10 [facility] CenterVqycifkEYOAGKAGFW8546-23-63 23:21:00 Test Item Value Reference Range Interpretation Comments Hgb (test code = Hgb) 13.6 14.0-18.0 [facility] CenterSyeklnoEMOLJBNLUM0585-83-88 23:21:00 Test Item Value Reference Range Interpretation Comments Hct (test code = Hct) 39.2 42.0-54.0 [facility] CenterSglllqwOUHVOZMDGE1603-36-89 23:21:00 Test Item Value Reference Range Interpretation Comments MCV (test code = MCV) 86.4 80.0-94.0 [facility] CenterTfbjnrlRZETXOLHRW4896-11-63 23:21:00 Test Item Value Reference Range Interpretation Comments MCH (test code = MCH) 29.9 pg 27.0-31.0 [facility] CenterYonhmeoQBDPENLZAA2974-13-73 23:21:00 Test Item Value Reference Range Interpretation Comments MCHC (test code = MCHC) 34.6 32.0-36.0 [facility] CenterFealdzlREZNYBTDYT3471-53-54 23:21:00 Test Item Value Reference Range Interpretation Comments RDW (test code = RDW) 14.2 11.5-14.5 [facility] CenterSbekgshMONSCERWLC5083-06-53 23:21:00 Test Item Value Reference Range Interpretation Comments Platelet (test code = Platelet) 268 133-450 [facility] CenterNqlghoaPFUAEAUSGV8538-11-11 23:21:00 Test Item Value Reference Range Interpretation Comments MPV (test code = MPV) 6.3 7.4-10.4 [facility] CenterKxtzwfoBAQEFXHJIK2600-78-76 23:21:00 Test Item Value Reference Range Interpretation Comments D-Dimer (test code = D-Dimer) 1.01 [facility] CenterRirinxlTIKZPMHZMD2492-83-75 23:21:00 Test Item Value Reference Range Interpretation Comments Segs (test code = Segs) 50.7 45.0-75.0 [place] 435780-03-03 23:21:00 Test Item Value Reference Range Interpretation Comments Lymphocytes (test code = Lymphocytes) 40.5 20.0-40.0 [place] 435780-03-03 23:21:00 Test Item Value Reference Range Interpretation Comments Monocytes (test code = Monocytes) 6.1 2.0-12.0 [facility] CenterZamcgtvQHNPGEEBSB8980-93-71 23:21:00 Test Item Value Reference Range Interpretation Comments Eosinophils (test code = Eosinophils) 2.0 <=4.0 [place] [address]-03-03 23:21:00 Test Item Value Reference Range Interpretation Comments Basophils (test code = Basophils) 0.7 <=1.0 [address]03-03 23:21:00 Test Item Value Reference Range Interpretation Comments Neutrophils # (test code = Neutrophils 4.0 1.5-8.1 #) [facility] CenterTkijtnfQABHNLZYKB4422-72-29 23:21:00 Test Item Value Reference Range Interpretation Comments Lymphocytes # (test code = Lymphocytes 3.2 1.0-5.5 #) [facility] CenterGyjblbwOVMKAYPENP0895-49-61 23:21:00 Test Item Value Reference Range Interpretation Comments Monocytes # (test code = Monocytes #) 0.5 <=0.8 [place] 435780-03-03 23:21:00 Test Item Value Reference Range Interpretation Comments Eosinophils # (test code = Eosinophils 0.2 <=0.5 #) [facility] CenterBoauwbcJENPTLJVRM2010-80-89 23:21:00 Test Item Value Reference Range Interpretation Comments Basophils # (test code = Basophils #) 0.1 <=0.2 [facility], MYELOGRAPHY, TWO OR MORE [id number] 16:14:00Reason for Exam:->THORACOLUMBAR SPINE FUSION, LUMBAR RADICULOPATHY, [...] 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 Signed: Haley Garrison MDReport Verified Silvano e/Time: 11/28/2017 16:14:49 Reading Location: [facility] Radiology Reading Room CT, SPINE, THORACIC, [id number] 16:14:00FINAL REPORT THORACIC AND LUMBAR MYELOGRAM, CT [...] 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 Signed: Haley Garrison MDReport Verified Silvano e/Time: 11/28/2017 16:14:49 Reading Location: [facility] Radiology Reading Room CHEM PANEL 2016-09-19 20:45:00 Test Item Value Reference Range Interpretation Comments Calcium Lvl (test code = Calcium Lvl) 9.6 8.5-10.5 [facility] [id number] 20:45:00 Test Item Value Reference Range Interpretation Comments CO2 (test code = CO2) 20 24-32 [facility] [id number] 20:45:00 Test Item Value Reference Range Interpretation Comments Chloride Lvl (test code = Chloride Lvl) 103 95-109 [facility]2016-12-22 20:45:00 Test Item Value Reference Range Interpretation Comments Sodium Lvl (test code = Sodium Lvl) 142 135-145 [facility]2016-12-22 20:45:00 Test Item Value Reference Range Interpretation Comments Potassium Lvl (test code = Potassium 3.4 3.5-5.1 Lvl) [facility]2016-12-22 20:45:00 Test Item Value Reference Range Interpretation Comments Glucose Lvl (test code = Glucose Lvl) 116 70-99 [facility]2016-12-22 20:45:00 Test Item Value Reference Range Interpretation Comments Creatinine Lvl (test code = Creatinine 0.95 0.50-1.40 Lvl) [facility]2016-12-22 20:45:00 Test Item Value Reference Range Interpretation Comments BUN (test code = BUN) 19 7-22 [facility]2016-12-22 20:45:00 Test Item Value Reference Range Interpretation Comments eGFR (test code = eGFR) 134 [facility]2016-12-22 20:45:00 Test Item Value Reference Range Interpretation Comments Albumin Lvl (test code = Albumin Lvl) 4.1 3.5-5.0 [facility]2016-12-22 20:45:00 Test Item Value Reference Range Interpretation Comments Alk Phos (test code = Alk Phos) 114 39-136 [facility]2016-12-22 20:45:00 Test Item Value Reference Range Interpretation Comments AST (test code = AST) 18 <=37 [facility]2016-12-22 20:45:00 Test Item Value Reference Range Interpretation Comments ALT (test code = ALT) 21 <=65 [facility]2016-12-22 20:45:00 Test Item Value Reference Range Interpretation Comments Bili Total (test code = Bili Total) 0.4 0.2-1.3 [facility]2016-12-22 20:45:00 Test Item Value Reference Range Interpretation Comments Total Protein (test code = Total 8.0 6.4-8.4 Protein) [facility]2016-12-22 20:45:00 Test Item Value Reference Range Interpretation Comments AGAP (test code = AGAP) 22.4 10.0-20.0 [facility]2016-12-22 20:45:00 Test Item Value Reference Range Interpretation Comments B/C Ratio (test code = B/C Ratio) 20 6-25 [facility]2016-12-22 20:45:00 Test Item Value Reference Range Interpretation Comments Globulin (test code = Globulin) 3.9 2.7-4.2 [facility]2016-12-22 20:45:00 Test Item Value Reference Range Interpretation Comments A/G Ratio (test code = A/G Ratio) 1.1 0.7-1.6 [facility]2016-12-22 20:45:00 Test Item Value Reference Range Interpretation Comments Lactic Acid Lvl (test code = Lactic 3.2 0.5-2.2 Acid Lvl) [facility]2016-12-22 20:45:00 Test Item Value Reference Range Interpretation Comments Calcium Lvl (test code = Calcium Lvl) 9.6 8.5-10.5 [facility]2016-12-22 20:45:00 Test Item Value Reference Range Interpretation Comments CO2 (test code = CO2) 20 24-32 [facility]2016-12-22 20:45:00 Test Item Value Reference Range Interpretation Comments Chloride Lvl (test code = Chloride Lvl) 103 95-109 [facility]2016-12-22 20:45:00 Test Item Value Reference Range Interpretation Comments Sodium Lvl (test code = Sodium Lvl) 142 135-145 [facility]2016-12-22 20:45:00 Test Item Value Reference Range Interpretation Comments Potassium Lvl (test code = Potassium 3.4 3.5-5.1 Lvl) [facility]2016-12-22 20:45:00 Test Item Value Reference Range Interpretation Comments Glucose Lvl (test code = Glucose Lvl) 116 70-99 [facility]2016-12-22 20:45:00 Test Item Value Reference Range Interpretation Comments Creatinine Lvl (test code = Creatinine 0.95 0.50-1.40 Lvl) [facility]2016-12-22 20:45:00 Test Item Value Reference Range Interpretation Comments BUN (test code = BUN) 19 7-22 [facility]2016-12-22 20:45:00 Test Item Value Reference Range Interpretation Comments eGFR (test code = eGFR) 134 [facility]2016-12-22 20:45:00 Test Item Value Reference Range Interpretation Comments Albumin Lvl (test code = Albumin Lvl) 4.1 3.5-5.0 [facility]2016-12-22 20:45:00 Test Item Value Reference Range Interpretation Comments Alk Phos (test code = Alk Phos) 114 39-136 [facility]2016-12-22 20:45:00 Test Item Value Reference Range Interpretation Comments AST (test code = AST) 18 <=37 [facility]2016-12-22 20:45:00 Test Item Value Reference Range Interpretation Comments ALT (test code = ALT) 21 <=65 [facility]2016-12-22 20:45:00 Test Item Value Reference Range Interpretation Comments Bili Total (test code = Bili Total) 0.4 0.2-1.3 [facility]2016-12-22 20:45:00 Test Item Value Reference Range Interpretation Comments Total Protein (test code = Total 8.0 6.4-8.4 Protein) [facility]2016-12-22 20:45:00 Test Item Value Reference Range Interpretation Comments AGAP (test code = AGAP) 22.4 10.0-20.0 [facility]2016-12-22 20:45:00 Test Item Value Reference Range Interpretation Comments B/C Ratio (test code = B/C Ratio) 20 6-25 [facility]2016-12-22 20:45:00 Test Item Value Reference Range Interpretation Comments Globulin (test code = Globulin) 3.9 2.7-4.2 [facility]2016-12-22 20:45:00 Test Item Value Reference Range Interpretation Comments A/G Ratio (test code = A/G Ratio) 1.1 0.7-1.6 [facility]2016-12-22 20:45:00 Test Item Value Reference Range Interpretation Comments Lactic Acid Lvl (test code = Lactic 3.2 0.5-2.2 Acid Lvl) [facility] TexasPhjlbfeGOWBFBSPP4701-32-86 05:45:00 Test Item Value Reference Range Interpretation Comments Lactic Acid Lvl (test code = Lactic 1.0 0.5-2.2 N Acid Lvl) [facility]KjjvycfQEFDYUNWJ5983-41-06 05:45:00 Test Item Value Reference Range Interpretation Comments Lactic Acid Lvl (test code = Lactic 1.0 0.5-2.2 N Acid Lvl) [facility]GroupTieProtagenic Therapeutics QNKXUWP9633-48-54 03:25:00 Test Item Value Reference Range Interpretation Comments Antibody Scrn (test Negative (08/17/2013 N code = Antibody Scrn) 21:25:00) [facility] [employer] [facility] [id number] 03:25:00 Test Item Value Reference Range Interpretation Comments ABO/Rh (test code = ABO/Rh) O POS [facility] [employer] [facility] [id number] 03:25:00 Test Item Value Reference Range Interpretation Comments Antibody Scrn (test Negative (08/17/2013 N code = Antibody Scrn) 21:25:00) [facility] [employer] [facility] [id number] 03:25:00 Test Item Value Reference Range Interpretation Comments ABO/Rh (test code = ABO/Rh) O POS [facility] DoikgpnJMGDSOOBO1948-09-72 01:58:49 Test Item Value Reference Range Interpretation Comments O2 Sat Stoney (test code = O2 Sat Stoney) 41.9 40.0-70.0 N [facility] HospitalDduywgzBJCLRIFQT0895-69-87 01:58:49 Test Item Value Reference Range Interpretation Comments Temp Stoney (test code = Temp Stoney) 37.0 [facility] AhguptxRVKGYRLFJ4924-08-18 01:58:49 Test Item Value Reference Range Interpretation Comments HCO3 Stoney (test code = HCO3 Stoney) 24 22-26 N [facility] IwzlxdcMPJFHSTVJ4266-27-55 01:58:49 Test Item Value Reference Range Interpretation Comments BE Stoney (test code = BE Stoney) 1 <=2 N [facility] OewtlciGDYVZMJYV9387-75-71 01:58:49 Test Item Value Reference Range Interpretation Comments pO2 Stoney (test code = pO2 Stoney) 22 20-49 N [facility] HospitalLzzojbuCJTKMVTAH9666-64-19 01:58:49 Test Item Value Reference Range Interpretation Comments pCO2 Stoney (test code = pCO2 Stoney) 34 38-52 L [facility] WtwfvarKOKFQIZEI3103-23-67 01:58:49 Test Item Value Reference Range Interpretation Comments pH Stoney (test code = pH Stoney) 7.46 7.28-7.42 H [facility] TexasChbulylAVEZWNDKR8731-02-14 01:58:49 Test Item Value Reference Range Interpretation Comments O2 Sat Stoney (test code = O2 Sat Stoney) 41.9 40.0-70.0 N [facility] TexasNrnikeiDWXZCWHYK8063-81-07 01:58:49 Test Item Value Reference Range Interpretation Comments Temp Stoney (test code = Temp Stoney) 37.0 [facility] TexasHlqialeQUSZZESZK7762-67-05 01:58:49 Test Item Value Reference Range Interpretation Comments HCO3 Stoney (test code = HCO3 Stoney) 24 22-26 N [facility] TexasXqhdvokNNIVBVHHW1748-33-50 01:58:49 Test Item Value Reference Range Interpretation Comments BE Stoney (test code = BE Stoney) 1 <=2 N [facility] TexasUexaugdCCQZLJZVZ6809-97-14 01:58:49 Test Item Value Reference Range Interpretation Comments pO2 Stoney (test code = pO2 Stoney) 22 20-49 N [facility] TexasSsohijuZOWDBHJVY0962-94-97 01:58:49 Test Item Value Reference Range Interpretation Comments pCO2 Stoney (test code = pCO2 Stoney) 34 38-52 L [facility] TexasRtbkpsmHMCACLETH8591-42-49 01:58:49 Test Item Value Reference Range Interpretation Comments pH Stoney (test code = pH Stoney) 7.46 7.28-7.42 H [facility] TexasClgwctvSNEFTHVLX9587-40-53 01:58:00 Test Item Value Reference Range Interpretation Comments AGAP (test code = AGAP) 14.7 10.0-20.0 N [facility] TexasFzxgcjoZBIWMVBGP8055-07-89 01:58:00 Test Item Value Reference Range Interpretation Comments eGFR (test code = eGFR) 45 [facility] TexasUvyfavjSHBSDNEZF8533-48-97 01:58:00 Test Item Value Reference Range Interpretation Comments Glucose Lvl (test code = Glucose Lvl) 90 70-99 N [facility] TexasOwpdnaaXYTWSLNWU4048-86-05 01:58:00 Test Item Value Reference Range Interpretation Comments Chloride Lvl (test code = Chloride Lvl) 105 95-109 N [facility] TexasBskfzsoWBIZTVUVP2754-49-12 01:58:00 Test Item Value Reference Range Interpretation Comments Potassium Lvl (test code = Potassium 3.7 3.5-5.1 N Lvl) [facility] TexasYosvgvaWUJLFTYME7664-88-41 01:58:00 Test Item Value Reference Range Interpretation Comments Sodium Lvl (test code = Sodium Lvl) 142 135-145 N [facility] TexasZpkoxhyZJYVFFBQY9577-59-92 01:58:00 Test Item Value Reference Range Interpretation Comments Creatinine Lvl (test code = Creatinine 1.2 0.5-1.4 N Lvl) [facility] TexasNhwvczbRTIYLVXOQ1518-17-87 01:58:00 Test Item Value Reference Range Interpretation Comments BUN (test code = BUN) 12 7-22 N [facility] TexasOimhevgUPQWCHUKI1988-75-74 01:58:00 Test Item Value Reference Range Interpretation Comments Calcium Lvl (test code = Calcium Lvl) 9.2 8.5-10.5 N [facility] TexasZvrtchtKCBQYOCVW3902-53-03 01:58:00 Test Item Value Reference Range Interpretation Comments CO2 (test code = CO2) 26 24-32 N [facility] TexasGcrkwyrUROBXYFVS4399-97-90 01:58:00 Test Item Value Reference Range Interpretation Comments Etoh (%) (test code = Etoh (%)) <0.003 % N [facility] TexasGbypwgnUVWSUSMJE8796-27-09 01:58:00 Test Item Value Reference Range Interpretation Comments Ethanol Lvl (test code = Ethanol <3.0 mg/dL N Lvl) [facility] TexasMrgseqiOSNZGZCPJ2491-88-43 01:58:00 Test Item Value Reference Range Interpretation Comments Lactic Acid Lvl (test code = Lactic 2.9 0.5-2.2 H Acid Lvl) [facility]MsakiytGWIXGVNYGO9202-41-44 01:58:00 Test Item Value Reference Range Interpretation Comments MPV (test code = MPV) 7.5 7.4-10.4 N [facility] CenterPhufakuWUDVZBRCUO6924-58-86 01:58:00 Test Item Value Reference Range Interpretation Comments WBC X 10x3 (test code = WBC X 10x3) 11.5 3.7-10.4 H [facility] CenterGjzubjcFLYEXBICAW5231-19-06 01:58:00 Test Item Value Reference Range Interpretation Comments Hgb (test code = Hgb) 14.2 14.0-18.0 N [facility] CenterPojpnfjBJRQIRYINR9527-77-79 01:58:00 Test Item Value Reference Range Interpretation Comments RBC X 10x6 (test code = RBC X 10x6) 4.77 4.70-6.10 N [facility] CenterDpblbqeIVQJKTXMEW5586-62-98 01:58:00 Test Item Value Reference Range Interpretation Comments Hct (test code = Hct) 42.1 42.0-54.0 N [facility] CenterBolmqqcXLHOPKCKJX0400-38-51 01:58:00 Test Item Value Reference Range Interpretation Comments MCV (test code = MCV) 88.2 80.0-94.0 N [facility] CenterTbbazqgJPCKXRQMMZ6734-27-60 01:58:00 Test Item Value Reference Range Interpretation Comments MCH (test code = MCH) 29.7 pg 27.0-31.0 N [facility]IopgybwLNHCSQBOPE0068-16-25 01:58:00 Test Item Value Reference Range Interpretation Comments RDW (test code = RDW) 12.7 11.5-14.5 N [facility] CenterQpjehnxCYWCYSTONF5512-12-94 01:58:00 Test Item Value Reference Range Interpretation Comments MCHC (test code = MCHC) 33.7 32.0-36.0 N [facility] CenterUozvbnbYOUSCUFZSP3516-95-87 01:58:00 Test Item Value Reference Range Interpretation Comments Platelet (test code = Platelet) 282 133-450 N [facility] CenterAnqhwazDVXAJIUSED1752-15-90 01:58:00 Test Item Value Reference Range Interpretation Comments R-time (test code = R-time) 0.7 min 0.4-0.7 N [facility] CenterEcrwgfyIFHHIDSWTA6681-51-95 01:58:00 Test Item Value Reference Range Interpretation Comments K-time (test code = K-time) 1.2 min 0.6-2.3 N [facility] CenterNuucdxcBYIBKTGTMU2944-61-97 01:58:00 Test Item Value Reference Range Interpretation Comments Angle (test code = Angle) 75 degrees 64-80 N [facility] CenterEjtafqhAGCRMOKDTE7548-65-60 01:58:00 Test Item Value Reference Range Interpretation Comments Rapid TEG Sample Type Citrated Whole Blood (test code = Rapid TEG Sample Type) [facility] CenterTlsfjpqSVCNKLUFJE7556-77-00 01:58:00 Test Item Value Reference Range Interpretation Comments ACT (TEG) (test code = ACT (TEG)) 113 s 86-118 N [facility] CenterUceddceLIUROMBWUA4430-11-85 01:58:00 Test Item Value Reference Range Interpretation Comments Split Point (test code = Split Point) 0.6 min [facility] CenterXnuromoJRROFEORYQ9911-88-60 01:58:00 Test Item Value Reference Range Interpretation Comments Estimated % Lysis (test code = 1.2 <=7.5 N Estimated % Lysis) [facility] CenterPbqurbtMSZEKXEHXU6693-74-15 01:58:00 Test Item Value Reference Range Interpretation Comments Max Amp (test code = Max Amp) 67 mm 52-71 N [facility] CenterGhszpiqZXFQODUKWO1009-50-12 01:58:00 Test Item Value Reference Range Interpretation Comments G-value (test code = G-value) 9.9 5.0-11.6 N [facility] CenterQsqiykkCMBDTMOVEH3984-52-98 01:58:00 Test Item Value Reference Range Interpretation Comments Monocytes # (test code = Monocytes #) 1.0 <=0.8 H [facility] CenterMfgljgmZUYBAYPZGK7037-89-28 01:58:00 Test Item Value Reference Range Interpretation Comments Eosinophils (test code = Eosinophils) 0.6 <=4.0 N [facility] CenterOcfwzvaKOIJCZXQVQ8153-10-77 01:58:00 Test Item Value Reference Range Interpretation Comments Lymphocytes # (test code = Lymphocytes 2.0 1.0-5.5 N #) [facility] CenterZoiqwnyLZMROQZTLB3169-41-37 01:58:00 Test Item Value Reference Range Interpretation Comments Segs-Bands # (test code = Segs-Bands #) 8.4 1.5-8.1 H [facility] CenterAlnampsNZVCJFAHAR0401-67-04 01:58:00 Test Item Value Reference Range Interpretation Comments Basophils (test code = Basophils) 0.4 <=1.0 N [facility] CenterCrowssdGEATGMXPYN0260-14-39 01:58:00 Test Item Value Reference Range Interpretation Comments Plt Morph (test code = Normal (08/17/2013 N Plt Morph) 19:58:00) [facility] CenterQvvbiunUVZBFBQCXF5216-87-62 01:58:00 Test Item Value Reference Range Interpretation Comments Monocytes (test code = Monocytes) 8.4 2.0-12.0 N [facility] CenterPwqngvaGKFVIKRVEX2218-99-63 01:58:00 Test Item Value Reference Range Interpretation Comments Lymphocytes (test code = Lymphocytes) 17.7 20.0-40.0 L [facility] CenterZwnmreyZJALDPUXQD9773-62-53 01:58:00 Test Item Value Reference Range Interpretation Comments Segs (test code = Segs) 72.9 45.0-75.0 N [facility] CenterZswswyfVDADNRGODO6920-49-07 01:58:00 Test Item Value Reference Range Interpretation Comments RBC Morph (test code = Normal (08/17/2013 N RBC Morph) 19:58:00) [facility] CenterPcezgfdYUJBTYHKVE9296-28-93 01:58:00 Test Item Value Reference Range Interpretation Comments Eosinophils # (test code = Eosinophils 0.1 <=0.5 N #) [facility] CenterOgxsjflNLFWVDMLXD0805-07-76 01:58:00 Test Item Value Reference Range Interpretation Comments Basophils # (test code = Basophils #) 0.0 <=0.2 N [facility]WjblqmhXDHIAQHTE7496-89-73 01:58:00 Test Item Value Reference Range Interpretation Comments AGAP (test code = AGAP) 14.7 10.0-20.0 N [facility] TexasBtmfcfzOXTIAMVZH9120-89-78 01:58:00 Test Item Value Reference Range Interpretation Comments eGFR (test code = eGFR) 45 [facility] TexasTdldexcIGHNFSNPL1797-70-20 01:58:00 Test Item Value Reference Range Interpretation Comments Glucose Lvl (test code = Glucose Lvl) 90 70-99 N [facility] TexasVzfnhezMGPNOYKKH1298-04-39 01:58:00 Test Item Value Reference Range Interpretation Comments Chloride Lvl (test code = Chloride Lvl) 105 95-109 N [facility] TexasExnpduyREFRNCQLN5576-23-51 01:58:00 Test Item Value Reference Range Interpretation Comments Potassium Lvl (test code = Potassium 3.7 3.5-5.1 N Lvl) [facility] TexasPdrxwosVKAVYJRHQ8503-13-55 01:58:00 Test Item Value Reference Range Interpretation Comments Sodium Lvl (test code = Sodium Lvl) 142 135-145 N [facility] TexasGmlyhzlLQRZBWXEY5900-81-47 01:58:00 Test Item Value Reference Range Interpretation Comments Creatinine Lvl (test code = Creatinine 1.2 0.5-1.4 N Lvl) [facility] TexasDcmtnjcAUNUHJKPB6029-09-09 01:58:00 Test Item Value Reference Range Interpretation Comments BUN (test code = BUN) 12 7-22 N [facility] TexasOekhxlvNADFREMDC6272-24-09 01:58:00 Test Item Value Reference Range Interpretation Comments Calcium Lvl (test code = Calcium Lvl) 9.2 8.5-10.5 N [facility] TexasEoxrdrkAJYMLNOMD3602-56-23 01:58:00 Test Item Value Reference Range Interpretation Comments CO2 (test code = CO2) 26 24-32 N [facility] TexasSijxvlwXXUYLOFIS1235-30-31 01:58:00 Test Item Value Reference Range Interpretation Comments Etoh (%) (test code = Etoh (%)) <0.003 % N [facility] TexasYkphxoyMPOYVVKMA1635-59-81 01:58:00 Test Item Value Reference Range Interpretation Comments Ethanol Lvl (test code = Ethanol <3.0 mg/dL N Lvl) [facility] TexasCkllpptUUCXABSVZ0681-02-72 01:58:00 Test Item Value Reference Range Interpretation Comments Lactic Acid Lvl (test code = Lactic 2.9 0.5-2.2 H Acid Lvl) [facility] CenterFzfkhalNQCFPXSJMI2376-17-72 01:58:00 Test Item Value Reference Range Interpretation Comments MPV (test code = MPV) 7.5 7.4-10.4 N [facility] CenterAesdnqaBYKQJKGEAE4217-98-04 01:58:00 Test Item Value Reference Range Interpretation Comments WBC X 10x3 (test code = WBC X 10x3) 11.5 3.7-10.4 H [facility] CenterKbewqgnKEYJLGQIDK4122-89-18 01:58:00 Test Item Value Reference Range Interpretation Comments Hgb (test code = Hgb) 14.2 14.0-18.0 N [facility] CenterGdofbimAIDDWSWKRF2323-67-05 01:58:00 Test Item Value Reference Range Interpretation Comments RBC X 10x6 (test code = RBC X 10x6) 4.77 4.70-6.10 N [facility] CenterXahhvpdXOUBASCESL6558-12-41 01:58:00 Test Item Value Reference Range Interpretation Comments Hct (test code = Hct) 42.1 42.0-54.0 N [facility] CenterIwfgxvpTQHJLLDOXY1642-10-13 01:58:00 Test Item Value Reference Range Interpretation Comments MCV (test code = MCV) 88.2 80.0-94.0 N [facility] CenterMrvbhrbHUDFWZWAGH7155-04-53 01:58:00 Test Item Value Reference Range Interpretation Comments MCH (test code = MCH) 29.7 pg 27.0-31.0 N [facility] CenterRbricinYPLWPRJDWJ5208-71-39 01:58:00 Test Item Value Reference Range Interpretation Comments RDW (test code = RDW) 12.7 11.5-14.5 N [facility] CenterOmggijlZMZEKVINBH3373-31-56 01:58:00 Test Item Value Reference Range Interpretation Comments MCHC (test code = MCHC) 33.7 32.0-36.0 N [facility] CenterIvyzircYZFMPHFTWM7970-23-91 01:58:00 Test Item Value Reference Range Interpretation Comments Platelet (test code = Platelet) 282 133-450 N [facility] CenterWmhyossAHIQBEJWIL5836-17-33 01:58:00 Test Item Value Reference Range Interpretation Comments R-time (test code = R-time) 0.7 min 0.4-0.7 N [facility] CenterUkrqzpoAJJEFSXGUQ9448-01-59 01:58:00 Test Item Value Reference Range Interpretation Comments K-time (test code = K-time) 1.2 min 0.6-2.3 N [facility] CenterDluvsoiZQRENXNVNJ2541-43-15 01:58:00 Test Item Value Reference Range Interpretation Comments Angle (test code = Angle) 75 degrees 64-80 N [facility] CenterLgkreixYFVKSXVFSQ1798-66-05 01:58:00 Test Item Value Reference Range Interpretation Comments Rapid TEG Sample Type Citrated Whole Blood (test code = Rapid TEG Sample Type) [facility] CenterTwyujymARFBUIHMXR2192-27-02 01:58:00 Test Item Value Reference Range Interpretation Comments ACT (TEG) (test code = ACT (TEG)) 113 s 86-118 N [facility] CenterGygufbwRWAWJTQAEB2149-24-79 01:58:00 Test Item Value Reference Range Interpretation Comments Split Point (test code = Split Point) 0.6 min [facility] CenterMkgbmmwNXGKNGYJHE3320-88-40 01:58:00 Test Item Value Reference Range Interpretation Comments Estimated % Lysis (test code = 1.2 <=7.5 N Estimated % Lysis) [facility] CenterIzyxkevBTSTNAQZGQ7950-18-29 01:58:00 Test Item Value Reference Range Interpretation Comments Max Amp (test code = Max Amp) 67 mm 52-71 N [facility] CenterXeqsjarBCGWNPFOLE6759-57-63 01:58:00 Test Item Value Reference Range Interpretation Comments G-value (test code = G-value) 9.9 5.0-11.6 N [facility] CenterIcuaosfQIEGBJNBBY1529-19-97 01:58:00 Test Item Value Reference Range Interpretation Comments Monocytes # (test code = Monocytes #) 1.0 <=0.8 H [facility] CenterZadfkayEPRAZNTINF6765-13-04 01:58:00 Test Item Value Reference Range Interpretation Comments Eosinophils (test code = Eosinophils) 0.6 <=4.0 N [facility] CenterHipnltiFHYAZEXHYM5905-12-07 01:58:00 Test Item Value Reference Range Interpretation Comments Lymphocytes # (test code = Lymphocytes 2.0 1.0-5.5 N #) [facility] CenterZrzckotQPNKQHBLNT3063-17-75 01:58:00 Test Item Value Reference Range Interpretation Comments Segs-Bands # (test code = Segs-Bands #) 8.4 1.5-8.1 H [facility] CenterLuurnzzOJMNENIITR9971-81-74 01:58:00 Test Item Value Reference Range Interpretation Comments Basophils (test code = Basophils) 0.4 <=1.0 N [facility] CenterMxkqxumDCXDDYHNIN0724-92-28 01:58:00 Test Item Value Reference Range Interpretation Comments Plt Morph (test code = Normal (08/17/2013 N Plt Morph) 19:58:00) [facility] CenterYqlkiqvNUNNCZLAWT2531-03-89 01:58:00 Test Item Value Reference Range Interpretation Comments Monocytes (test code = Monocytes) 8.4 2.0-12.0 N [facility] CenterZmdanosCKZIVWCNKV9212-56-98 01:58:00 Test Item Value Reference Range Interpretation Comments Lymphocytes (test code = Lymphocytes) 17.7 20.0-40.0 L [facility] CenterRfrosuhGNGJJZOYSA9989-04-54 01:58:00 Test Item Value Reference Range Interpretation Comments Segs (test code = Segs) 72.9 45.0-75.0 N [facility] CenterBcxwtvtIKWZOOXRSN3838-27-87 01:58:00 Test Item Value Reference Range Interpretation Comments RBC Morph (test code = Normal (08/17/2013 N RBC Morph) 19:58:00) [facility] CenterKowawayHDWFKNXPJQ1748-03-11 01:58:00 Test Item Value Reference Range Interpretation Comments Eosinophils # (test code = Eosinophils 0.1 <=0.5 N #) [facility] CenterXdscvhlAIMXEIIVSK0593-09-70 01:58:00 Test Item Value Reference Range Interpretation Comments Basophils # (test code = Basophils #) 0.0 <=0.2 N [facility]
[2023-08-16 23:15] LABS: Absolute Lymphocytes (CBC) 3.3 K/uL (0.7-4.9); Hematocrit 34.1 % (39.6-49.0); Lymphocytes % 42.2 % (15.3-44.8); MCV 76.1 fL (80-100); MPV 6.8 fL (7.6-11.3); Platelets 270 thou/uL (152-406); RBC Red Blood Cell Count 4.48 M/uL (4.33-5.43)
[2023-08-16 23:43] LABS: Albumin 3.4 g/dL (3.4-5.0); Bilirubin Total 0.2 mg/dL (0.2-1.0); Potassium 3.7 mEq/L (3.5-5.1); Protein, Total 7.1 g/dL (6.4-8.2); Troponin High Sensitivity 4.3 pg/mL (<58.9)
--- NOTE | 2023-08-17 00:11 | ER ---
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 rv 22:30 Coronavirus screen: At this time, the client does not indicate any symptoms associated rv with coronavirus-19. Ebola Screen: No symptoms or risks identified at this time. Initial Sepsis Screen: Does the patient meet any 2 criteria? No. Patient's initial sepsis screen is negative. Does the patient have a suspected source of infection? No. Patient's initial sepsis screen is negative. Risk Assessment: Do you want to hurt yourself or someone else? Patient reports no desire to harm self or others. Onset of symptoms was August 16, 2023. 22:30 Method Of Arrival: Ambulatory rv 22:30 Acuity: SURJIT 3 rv 22:30 Chief complaint: Patient states: c/o chest pain and palpitations today. Had a me1 defibrillator and pacemaker put in about 1.5 weeks ago and called his repeater operator to have it interrogated. Was told that he had SVT up to 170 bpm several times per the interrogation. Was told by the repeater operator to take 5 mg of Bystolic to bring his heart rate down and repeat the dose in 4 hours if still tachycardic. Patient had 3 doses of Bystolic and was still having palpitations and chest pain so he came to ER. CP 6/10, does not radiate and is pounding in nature. Reports SOB with a small amount of exertion. Ebola Screen: No symptoms or risks identified at this time. 22:30 Coronavirus screen: Vaccine status: Patient reports receiving the 2nd dose of the covid me1 vaccine. Initial Sepsis Screen: Does the patient meet any 2 criteria? HR > 90 bpm. No. Patient's initial sepsis screen is negative. Does the patient have a suspected source of infection? No. Patient's initial sepsis screen is negative. Risk Assessment: Do you want to hurt yourself or someone else? Patient reports no desire to harm self or others. Onset of symptoms was August 16, 2023. 22:30 Acuity: SURJIT 3 me1 Triage Assessment: 08/17 00:16 General: Appears in no apparent distress. Behavior is calm, cooperative. Pain: rv Complains of pain in chest. Neuro: Level of Consciousness is awake, alert, obeys commands, Oriented to person, place, time, situation. Cardiovascular: Capillary refill < 3 seconds Patient's skin is warm and dry. Respiratory: Airway is patent Respiratory effort is even, unlabored. GI: No signs and/or symptoms were reported involving the gastrointestinal system. : No signs and/or symptoms were reported regarding the genitourinary system. Derm: Skin is intact. Historical: - Allergies: 00:16 Latex; rv 00:16 Naproxen; rv 00:16 Omnicef; rv 00:16 PENICILLINS; rv 00:16 Vancomycin; rv - PMHx: 00:16 Hernia; Headaches; GERD; diabetes mellitus; Congestive heart failure; Atrial rv fibrillation; - PSHx: 00:16 back SX x 2 heart caths; rv - Immunization history:: Adult Immunizations up to date. - Social history:: Smoking status: Patient denies any tobacco usage or history of. Screenin:17 [facility] ED Fall Risk Assessment (Adult) History of falling in the last 3 months, rv including since admission No falls in past 3 months (0 pts) Score/Fall Risk Level 0 - 2 = Low Risk Oriented to surroundings, Maintained a safe environment, Educated pt \T\ family on fall prevention, incl call for assistance when getting out of bed, Assessed \T\ reinforced patient's understanding of fall precautions, Provided non-skid footwear, Hourly rounding (assess needs \T\ fall precautionary measures) done, Used ambulatory aids as needed (educated on \T\ assisted with), Used gait belt as appropriate. Abuse screen: Denies threats or abuse. Denies injuries from another. Nutritional screening: No deficits noted. Tuberculosis screening: No symptoms or risk factors identified. Assessment: 00:24 General: Appears uncomfortable, obese, well developed, well nourished, Behavior is me1 calm, cooperative, appropriate for age, Reports c/o chest pain and palpitations today. Had a defibrillator and pacemaker put in about 1.5 weeks ago and called his repeater operator to have it interrogated. Was told that he had SVT up to 170 bpm several times per the interrogation. Was told by the repeater operator to take 5 mg of Bystolic to bring his heart rate down and repeat the dose in 4 hours if still tachycardic. Patient had 3 doses of Bystolic and was still having palpitations and chest pain so he came to ER. CP 6/10, does not radiate and is pounding in nature. Reports SOB with a small amount of exertion. Pain: Complains of pain in chest Pain does not radiate. Pain currently is 6 out of 10 on a pain scale. Quality of pain is described as pounding; Pain began today Is continuous. Neuro: Level of Consciousness is awake, alert, obeys commands, Oriented to person, place, time, situation, Appropriate for age. Cardiovascular: Capillary refill < 3 seconds Patient's skin is warm and dry. Cardiovascular: Reports chest pain, palpitations, shortness of breath. Respiratory: Airway is patent Respiratory effort is even, unlabored, Respiratory pattern is regular, symmetrical. 00:44 General: Tatiana with DrAvailable called with verbal report re: pacemaker/defibrillator me1 interrogation and is faxing the report. Discussed findings with Dr Moreira and informed him that a report is being faxed. No new orders rec'd at this time. . Vital Signs: 08/16 22:30 BP 153 / 83; Pulse 116; Resp 20; Temp 98; Pulse Ox 97% on R/A; Weight 122.92 kg; Height me1 5 ft. 8 in. ; Pain 6/10; 22:45 BP 143 / 84; Pulse 63; Resp 18; Pulse Ox 100% on R/A; me1 23:30 BP 116 / 84; Pulse 61; Resp 22; Pulse Ox 100% on R/A; me1 23:45 BP 120 / 72; Pulse 62; Resp 16; Pulse Ox 100% ; wi1 08/17 00:00 BP 116 / 84; Pulse 65; Resp 20; Pulse Ox 100% on R/A; wi1 08/16 22:30 Body Mass Index 41.20 (122.92 kg, 172.72 cm) [facility] [place] 22:30 Pain Scale: [place] [facility] [place] Course: 08/16 22:17 Patient arrived in ED. jj6 22:29 Celina Sanchez, GENESIS is Primary Nurse. wi1 22:30 Nino Moreira MD is Attending Physician. ec2 22:32 EKG done, by ED staff, reviewed by Nino Moreira MD. 5 23:00 CXR XRAY In Process Unspecified. EDMS 23:00 No provider procedures requiring assistance completed. Inserted saline lock: 20 gauge rv in right forearm, using aseptic technique. Blood collected. 08/17 00:16 Triage completed. rv 00:16 Arm band placed on right wrist. rv 00:18 IV discontinued, intact, bleeding controlled, No redness/swelling at site. Pressure rv dressing applied. 00:24 Patient maintains SpO2 saturation greater than 95% on room air. me1 00:24 Patient has correct armband on for positive identification. Bed in low position. Call me1 light in reach. Side rails up X 1. Provided Education on: POC. Verbalized understanding. . Client placed on continuous cardiac and pulse oximetry monitoring. NIBP monitoring applied. monitoring analyst on. Administered Medications: No medications were administered Medication: 00:24 VIS not applicable for this client. me1 Outcome: 00:10 Discharge ordered by . ec2 00:27 Discharged to home ambulatory, rv 00:27 Condition: good 00:27 Discharge instructions given to patient, Instructed on discharge instructions, follow up and referral plans. Demonstrated understanding of instructions, follow-up care, 00:45 Patient left the ED. me1 Signatures: Dispatcher [employer] EDKostas Renteria, RN RN Jacqueline Velasquez [id number] Celina Sanchez RN RN wi1 Nery Fior 5 Nino Moreira MD MD ec2
--- NOTE | 2023-08-17 00:11 | EDPHYS ---
Physician Documentation [facility] Name: Orlando Sanchez Age: 28 yrs Sex: Male : 1995 Arrival Date: 08/16/2023 Time: 22:15 Bed 20 Private MD: ED Physician Nino Moreira HPI: 08/16 22:39 This 28 yrs old Male presents to ER via Unassigned with complaints of Chest ec2 Pain, Shortness Of Breath, Irregular Pulse, Defibrillator 07/2023. 22:39 Patient arrives today for evaluation palpitations and shortness of breath. Patient ec2 reports that he has a history of atrial fibrillation status post ablation, history of cardiac arrest and history of CHF, has had a defibrillator placed several weeks ago. States that he felt some palpitations, noted his heart rate to be elevated today, took his beta-ana per recommendation of his spanner operator and subsequently arrives today for evaluation. Patient reports some diarrhea symptoms, no vomiting, no issues with p.o. intake. Denies leg swelling . Historical: - Allergies: 08/17 00:16 Latex; rv 00:16 Naproxen; rv 00:16 Omnicef; rv 00:16 PENICILLINS; rv 00:16 Vancomycin; rv - PMHx: 00:16 Hernia; Headaches; GERD; diabetes mellitus; Congestive heart failure; Atrial rv fibrillation; - PSHx: 00:16 back SX x 2 heart caths; rv - Immunization history:: Adult Immunizations up to date. - Social history:: Smoking status: Patient denies any tobacco usage or history of. ROS: 08/16 22:39 Constitutional: as per hpi ec2 Exam: 22:39 Constitutional: GEN: NAD Head: atraumatic Eyes: EOMI Ears: External ears are ec2 normal. CV: regular rate, no lower extremity edema LUNGS: no respiratory distress, no wheezes, no rales, no rhonchi ABD: non-distended SKIN: no evidence of rashes MSK: no evidence of trauma NEURO: moves all extremities equally Vital Signs: 22:30 BP 153 / 83; Pulse 116; Resp 20; Temp 98; Pulse Ox 97% on R/A; Weight 122.92 kg; Height me1 5 ft. 8 in. ; Pain 6/10; 22:45 BP 143 / 84; Pulse 63; Resp 18; Pulse Ox 100% on R/A; nv1 23:30 BP 116 / 84; Pulse 61; Resp 22; Pulse Ox 100% on R/A; nv1 23:45 BP 120 / 72; Pulse 62; Resp 16; Pulse Ox 100% ; nv1 08/17 00:00 BP 116 / 84; Pulse 65; Resp 20; Pulse Ox 100% on R/A; nv1 08/16 22:30 Body Mass Index 41.20 (122.92 kg, 172.72 cm) nv1 08/16 22:30 Pain Scale: [place] [facility]DM: 08/16 22:30 Patient medically screened. ec2 22:39 ED course: Patient arrives today for evaluation of palpitations with subjective ec2 shortness of breath. Examination remarkable for well-appearing nontoxic individual is otherwise in no acute distress with reassuring vital signs, reassuring cardiopulmonary examination. Will obtain lab work, EKG, chest x-ray for further assessment of the patient complaint. EKG independently reviewed and interpreted by me, shows normal sinus rhythm, rate of 71, no acute ST segment elevations, nonconcerning intervals.. 22:42 ED course: I will also interrogate his defibrillator.. ec2 08/17 00:08 Data reviewed: vital signs. ED course: Chest x-ray independently reviewed and ec2 interpreted by me, shows no acute intrathoracic process, hardware noted. CBC is reassuring without evidence of anemia, metabolic profile with appropriate electrolytes. Troponin is within normal ranges. [employer] report shows 4 episodes of capture SVT. . 00:10 ED course: On reassessment patient is well-appearing and in no acute distress. Will ec2 discharge home. Return precautions given. Instructed to follow-up with spanner operator. . 08/16 22:39 Order name: CBC with Diff; Complete Time: 00:06 ec2 08/16 22:39 Order name: CMP; Complete Time: 00:06 ec2 08/16 22:39 Order name: Troponin HS; Complete Time: 00:06 ec2 08/16 22:39 Order name: CXR XRAY ec2 08/16 22:39 Order name: EKG; Complete Time: 22:40 ec2 08/16 22:39 Order name: EKG - Nurse/Tech; Complete Time: 23:35 ec2 Administered Medications: No medications were administered Disposition Summary: 08/17/23 00:10 Discharge Ordered Condition: Stable ec2 Diagnosis - Palpitations ec2 Followup: ec2 - With: Private Physician - When: - Reason: Re-evaluation by your physician Discharge Instructions: - Discharge Summary Sheet ec2 - Palpitations ec2 Forms: - Medication Reconciliation Form ec2 - Thank You Letter ec2 - Antibiotic Education ec2 - Prescription Opioid Use ec2 - Patient Portal Instructions ec2 - Leadership Thank You Letter ec2 Signatures: Dispatcher [employer] Kostas Caban RN RN Nino Peter MD MD ec2 Corrections: (The following items were deleted from the chart) 01:18 00:08 ED course: Chest x-ray independently reviewed and interpreted by me, shows no ec2 acute intrathoracic process, hardware noted. CBC is reassuring without evidence of anemia, metabolic profile with appropriate electrolytes. Troponin is within normal ranges. [employer] report shows 0 treated episodes of V-fib or V. tach, no episodes of atrial tachycardia or atrial fibrillation. No evidence of shocks or charges . ec2
[2023-08-17 00:49] VITALS: TEMP 98
[2023-08-17 00:51] VITALS: O2SAT 100
[2023-08-17 00:56] VITALS: BP 116/84
--- NOTE | 2023-08-18 11:49 | RAD REPORT ---
EXAM DESCRIPTION: Chest Single View CLINICAL HISTORY: 28-year-old male with palpitations. TECHNIQUE: Single view, AP portable chest was obtained. COMPARISON: None. FINDINGS: Unremarkable cardiac and mediastinal silhouette. Heart size is normal. Pacemaker device ov erlies and obscures portions of the the RIGHT hemithorax with leads intact at the level of the batter y pack. Lead termination is not adequately visualized, however secondary to obscuration by overlying spinal stabilization hardware. Low lung volumes grossly clear without focal opacity, pneumothorax or pleural effusions. The visual ized bones are within normal limits. IMPRESSION: No acute cardiopulmonary abnormalities. Electronically signed by: Isabel Ann MD 08/16/2023 11:35 PM ARC FURNACE OPERATOR Due to temporary technical issues with the PACS/Fluency reporting system, reports are being signed by the in house radiologist without review as a courtesy to ensure prompt reporting. The interpreting r adiologist is fully responsible for the content of the report.
--- NOTE | 2023-08-20 17:05 | EKG ---
Test Date: 2023-08-16 Test Time: 22:29:11 New Car Salesperson: VIVI MEASUREMENT RESULTS: Intervals: Rate: 71 NC: 112 QRSD: 108 QT: 368 QTc: 399 [place]: P: 35 NC: 112 QRS: 12 T: -7 INTERPRETIVE STATEMENTS: Normal sinus rhythm with sinus arrhythmia Voltage criteria for left ventricular hypertrophy Nonspecific T wave abnormality Abnormal ECG Compared to ECG 05/14/2023 20:42:17 Left ventricular hypertrophy now present T-wave abnormality now present Atrial fibrillation no longer present Electronically Signed On 08-20-23 16:54:52 STRETCH PRESS OPERATOR by Brendon Ross
== END 2023-08-17 00:45 | disposition home or self-care (01) ==
LOC: ER 22:15
DX: R00.2 Palpitations (principal); R06.02 Shortness of breath; R07.9 Chest pain, unspecified; E11.9 Type 2 diabetes mellitus without complications; I50.9 Heart failure, unspecified; I48.91 Unspecified atrial fibrillation; Z95.0 Presence of cardiac pacemaker; Z88.0 Allergy status to penicillin; Z88.1 Allergy status to other antibiotic agents; Z88.8 Allergy status to other drugs, medicaments and biological substances; Z91.040 Latex allergy status
CPT/HCPCS: 36415; 71045; 80053; 84484; 85025; 93005; 99285

== ENCOUNTER → 2023-10-24 | Emergency (ER) | payer OTHER ==
[~2023-10-24] MED LIST: MORPHINE 4 MG/ML SYR ONE; ONDANSETRON 4 MG/2 ML VIAL ONE; PROMETHAZINE 25 MG TABLET ONE
[2023-10-24 19:19] LABS: Absolute Lymphocytes (CBC) 2.6 K/uL (0.7-4.9); Hematocrit 36.3 % (39.6-49.0); Lymphocytes % 31.1 % (15.3-44.8); MPV 6.9 fL (7.6-11.3); Platelets 346 thou/uL (152-406); RBC Red Blood Cell Count 4.71 M/uL (4.33-5.43)
[2023-10-24 19:23] LABS: Protime INR 2.11
--- NOTE | 2023-10-24 19:31 | RAD REPORT ---
EXAM DESCRIPTION: RAD - Chest Single View - 10/24/2023 7:14 pm CLINICAL HISTORY: DYSPNEA Chest pain. COMPARISON: Chest Single View dated 08/16/2023; Chest Single View dated 05/14/2023; Chest Single View dated 05/07/2023; Chest Single View dated 04/30/2023 FINDINGS: Portable technique limits examination quality. The lungs are grossly clear. The heart is normal in size. No displaced fractures.Spinal hardware is p resent. Right-sided stimulator device. IMPRESSION: No acute intrathoracic process suspected.
[2023-10-24 19:39] LABS: Albumin 3.6 g/dL (3.4-5.0); Bilirubin Direct 0.2 mg/dL (0-0.2); Bilirubin Indirect, Calculated 0.3 mg/dL (0.2-0.8); Bilirubin Total 0.5 mg/dL (0.2-1.0); Magnesium 2.3 mg/dL (1.6-2.4); Potassium 3.8 mEq/L (3.5-5.1); Protein, Total 7.3 g/dL (6.4-8.2); Troponin High Sensitivity 4.5 pg/mL (<58.9)
--- NOTE | 2023-10-24 20:03 | ER ---
Nurse's Notes [facility] Name: Orlando Sanchez Age: 28 yrs Sex: Male : 1995 Arrival Date: 10/24/2023 Time: 18:21 Bed 3 Private MD: Diagnosis: Other hypoglycemia;Elevated heart rate, palpitations, nausea without vomiting Presentation: 10/24 18:36 Chief complaint: Patient states: "I've been SOB for the past few days and getting mb9 alerts that my HR is in the 160s. Also, my glucose has been dropping into the 50s and I'm having trouble keeping it up.". Coronavirus screen: Vaccine status: Patient reports receiving the 2nd dose of the covid vaccine. Ebola Screen: No symptoms or risks identified at this time. Initial Sepsis Screen: Does the patient meet any 2 criteria? No. Patient's initial sepsis screen is negative. Does the patient have a suspected source of infection? No. Patient's initial sepsis screen is negative. Risk Assessment: Do you want to hurt yourself or someone else? Patient reports no desire to harm self or others. Onset of symptoms was October 24, 2023. 18:36 Method Of Arrival: Wheelchair mb9 18:36 Acuity: SURJIT 2 mb9 Historical: - Allergies: 18:38 Latex; mb9 18:38 Naproxen; mb9 18:38 Omnicef; mb9 18:38 PENICILLINS; mb9 18:38 Vancomycin; mb9 - PMHx: 18:38 Atrial fibrillation; diabetes mellitus; Headaches; Congestive heart failure; Hernia; mb9 GERD; - PSHx: 18:38 back SX x 2 heart caths; mb9 - Immunization history:: Adult Immunizations up to date. - Social history:: Smoking status: Patient denies any tobacco usage or history of. - Family history:: not pertinent. Screenin:47 [facility] ED Fall Risk Assessment (Adult) History of falling in the last 3 months, ld1 including since admission No falls in past 3 months (0 pts). Abuse screen: Denies threats or abuse. Denies injuries from another. Nutritional screening: No deficits noted. Tuberculosis screening: No symptoms or risk factors identified. Assessment: 18:47 General: Appears in no apparent distress. comfortable, Behavior is calm, cooperative, ld1 appropriate for age. Pain: Denies pain. Neuro: Level of Consciousness is awake, alert, obeys commands, Oriented to person, place, time, situation. Cardiovascular: Capillary refill < 3 seconds Patient's skin is warm and dry. Rhythm is Respiratory: Airway is patent Respiratory effort is even, unlabored, Breath sounds are clear bilaterally. GI: Abdomen is round non-distended. : No signs and/or symptoms were reported regarding the genitourinary system. EENT: No signs and/or symptoms were reported regarding the EENT system. Derm: No signs and/or symptoms reported regarding the dermatologic system. Musculoskeletal: No signs and/or symptoms reported regarding the musculoskeletal system. Vital Signs: 18:36 BP 129 / 90; Pulse 62; Resp 18; Temp 98; Pulse Ox 100% ; Weight 104.33 kg; Height 5 ft. mb9 6 in. ; 18:47 BP 129 / 90; Pulse 63; Resp 14; Pulse Ox 100% on R/A; ld1 18:36 Body Mass Index 37.12 (104.33 kg, 167.64 cm) mb9 Ary Coma Score: 19:51 Eye Response: spontaneous(4). Motor Response: obeys commands(6). Verbal Response: sp4 oriented(5). Total: 15. NIH Stroke Scale Scores: 19:51 NIHSS Score: 0 sp4 ED Course: 18:22 Patient arrived in ED. rg4 18:24 Fuentes Perkins MD is Attending Physician. sp4 18:36 Arm band placed on. mb9 18:38 Triage completed. mb9 18:46 Christa Montgomery, RN is Primary Nurse. ld1 18:47 Patient has correct armband on for positive identification. Placed in gown. Bed in low ld1 position. Call light in reach. Side rails up X2. manager monitoring on. Pulse ox on. NIBP on. Door closed. Noise minimized. Warm blanket given. 18:47 No provider procedures requiring assistance completed. Missed attempt(s): 20 gauge in ld1 right antecubital area. 19:13 Basic Metabolic Panel Sent. cm10 19:13 CBC with Diff Sent. cm10 19:13 LFT's Sent. cm10 19:13 Magnesium Sent. cm10 19:13 NT PRO-BNP Sent. cm10 19:13 PT-INR Sent. cm10 19:13 Troponin HS Sent. cm10 19:13 Accessed peripheral vein via ultrasound, utilizing dynamic ultrasound technique 20 G cm10 Left Forearm. 19:16 XRAY Chest (1 view) In Process Unspecified. EDMS 20:41 IV discontinued, intact, bleeding controlled, No redness/swelling at site. Pressure jb4 dressing applied. Administered Medications: 20:17 Drug: morphine IVP or IV 4 mg IVP once over 4 mins Route: IVP; Infused Over: 4 mins; la4 Site: right antecubital; 20:17 Drug: Promethazine PO 25 mg PO once Route: PO; la4 20:18 Drug: Ondansetron IVP 4 mg IVP once; over 2 minutes Route: IVP; Site: right antecubital;la4 Medication: 18:47 VIS not applicable for this client. ld1 Outcome: 20:02 Discharge ordered by MD. sp4 20:40 Discharged to home ambulatory, jb4 20:40 Condition: stable 20:40 Discharge instructions given to patient, Instructed on discharge instructions, follow up and referral plans. medication usage, Demonstrated understanding of instructions, follow-up care, medications, Prescriptions given X 1, 20:41 Patient left the ED. jb4 NIH Stroke Scale - NIH Stroke Score Date: 10/24/2023 Time: 19:51 Total Score = 0 10. Dysarthria (speech clarity - read or repeat words) - 0(Normal) 11. Extinction and Inattention (visual/tactile/auditory/spatial/personal) - 0(No abnormality) 1a. Level of Consciousness (LOC) - 0(Alert) 1b. Level of Consciousness (LOC) (Month \\T\\ Age) - 0(Both) 1c. LOC Commands (Open \\T\\ Closes Eyes/Test Administrator) - 0(Both) 2. Best Gaze (Lateral Gaze Paresis) - 0(Normal) 3. Visual Field Loss - 0(No visual loss) 4. Facial Palsy - 0(Normal) 5a. Left Arm: Motor (10-second hold) - 0(No drift) 5b. Right Arm: Motor (10-second hold) - 0(No drift) 6a. Left Leg: Motor (5-second hold - always test supine) - 0(No drift) 6b. Right Leg: Motor (5-second hold - always test supine) - 0(No drift) 7. Limb Ataxia (finger/nose \\T\\ heel/boswell - test with eyes open) - 0(Absent) 8. Sensory Loss (pinprick arms/legs/face) - 0(Normal) 9. Best Language: Aphasia (description/naming/reading) - 0(No aphasia) Initials: sp4 Signatures: Dispatcher [employer] Brenda Laboy rg4 Duke Macdonald, RN RN jb4 Christa Montgomery RN RN ld1 Sharmaine Blanton, RN RN mb9 Fuentes Perkins MD MD sp4 Quiana Finney RN RN cm10 Frank Salinas RN RN la4
--- NOTE | 2023-10-24 20:03 | EDPHYS ---
Physician Documentation [facility] Name: Orlando Sanchez Age: 28 yrs Sex: Male : 1995 Arrival Date: 10/24/2023 Time: 18:21 Bed 3 Private MD: ED Physician Fuentes Perkins HPI: 10/24 18:24 This 28 yrs old Male presents to ER via Unassigned with complaints of sp4 Shortness Of Breath, Blood Sugar Problem. 19:51 Very pleasant 28-year-old male with history of atrial fibrillation, diabetes, sp4 headaches, congestive heart failure, hernia GERD, history of AICD pacemaker defibrillator. . 19:51 Patient presents with 3 days of elevated heart rate and also concern for creased blood sp4 sugar. Patient states her sugar checked at 56 at home today. Patient's AICD has alerted him of rapid heart rate in 160s. . Historical: - Allergies: 18:38 Latex; mb9 18:38 Naproxen; mb9 18:38 Omnicef; mb9 18:38 PENICILLINS; mb9 18:38 Vancomycin; mb9 - PMHx: 18:38 Atrial fibrillation; diabetes mellitus; Headaches; Congestive heart failure; Hernia; mb9 GERD; - PSHx: 18:38 back SX x 2 heart caths; mb9 - Immunization history:: Adult Immunizations up to date. - Social history:: Smoking status: Patient denies any tobacco usage or history of. - Family history:: not pertinent. ROS: 19:51 Constitutional: Negative for fever, chills, and weight loss, positive tachycardia, sp4 positive low blood sugar 19:51 All other systems are negative, Exam: 19:51 Constitutional: This is a well developed, well nourished patient who is awake, alert, sp4 and in no acute distress. Head/Face: Normocephalic, atraumatic. Eyes: Pupils equal round and reactive to light, extra-ocular motions intact. Lids and lashes normal. Conjunctiva and sclera are not injected. Cornea within normal limits. Periorbital areas with no swelling, redness, or edema. ENT: Nares patent. No nasal discharge, no septal abnormalities noted. Tympanic membranes are normal and external auditory canals are clear. Oropharynx with no redness, swelling, or masses, exudates, or evidence of obstruction, uvula midline. Mucous membranes moist. Neck: Trachea midline, no thyromegaly or masses palpated, and no cervical lymphadenopathy. Supple, full range of motion without nuchal rigidity, or vertebral point tenderness. Chest/axilla: Normal chest wall appearance and motion. Nontender with no deformity. No lesions are appreciated. Cardiovascular: Regular rate and rhythm with a normal S1 and S2. No gallops, murmurs, or rubs. Normal PMI, no JVD. No pulse deficits. Respiratory: Lungs have equal breath sounds bilaterally, clear to auscultation and percussion. No rales, rhonchi or wheezes noted. No increased work of breathing, no retractions or nasal flaring. Abdomen/GI: Soft, non-tender, with normal bowel sounds. No distension or tympany. No guarding or rebound. No evidence of tenderness throughout. Back: No spinal tenderness. No costovertebral tenderness. Skin: Warm, dry with normal turgor. Normal color with no rashes, no lesions, and no evidence of cellulitis. MS/ Extremity: Pulses equal, no cyanosis. Neurovascular intact. Full, normal range of motion. Neuro: Awake and alert, GCS 15, oriented to person, place, time, and situation. Cranial nerves II-XII grossly intact. Motor strength 5/5 in all extremities. Sensory grossly intact. Psych: Awake, alert, with orientation to person, place and time. Behavior, mood, and affect are within normal limits 19:56 ECG was reviewed by the Attending Physician. Paced rhythm at the rate of 60, EKG time sp4 1835 Vital Signs: 18:36 BP 129 / 90; Pulse 62; Resp 18; Temp 98; Pulse Ox 100% ; Weight 104.33 kg; Height 5 ft. mb9 6 in. ; 18:47 BP 129 / 90; Pulse 63; Resp 14; Pulse Ox 100% on R/A; ld1 18:36 Body Mass Index 37.12 (104.33 kg, 167.64 cm) mb9 NIH Stroke Scale Scores: 19:51 NIHSS Score: 0 sp4 Ary Coma Score: 19:51 Eye Response: spontaneous(4). Motor Response: obeys commands(6). Verbal Response: sp4 oriented(5). Total: 15. MDM: 18:25 Patient medically screened. sp4 20:00 Differential diagnosis: Anxiety Reaction CHF exacerbation, Psychogenic pulmonary edema, sp4 Unstable Angina. Data reviewed: vital signs, nurses notes, old medical records, lab test result(s), EKG, radiologic studies, plain films. ED course: Patient has paced rhythm at the rate of 60. No other acute emergency. Normal blood sugar at the rate of 88, stable blood pressure. At this time patient is stable for discharge home. He reported some nausea and also some chronic back pain was given some morphine and ondansetron. Will prescribe as needed ondansetron for nausea.. 10/24 18:25 Order name: Basic Metabolic Panel; Complete Time: 19:56 10/24 18:25 Order name: CBC with Diff; Complete Time: 19:56 10/24 18:25 Order name: LFT's; Complete Time: 19:56 10/24 18:25 Order name: Magnesium; Complete Time: 19:56 10/24 18:25 Order name: NT PRO-BNP; Complete Time: 19:56 10/24 18:25 Order name: PT-INR; Complete Time: 19:56 10/24 18:25 Order name: Troponin HS; Complete Time: 19:56 10/24 18:25 Order name: XRAY Chest (1 view); Complete Time: 19:56 10/24 18:25 Order name: EKG; Complete Time: 18:25 10/24 18:25 Order name: Cardiac monitoring; Complete Time: 18:47 10/24 18:25 Order name: EKG - Nurse/Tech; Complete Time: 18:47 10/24 18:25 Order name: IV Saline Lock; Complete Time: 19:13 10/24 18:25 Order name: Labs collected and sent; Complete Time: 19:13 10/24 18:25 Order name: O2 Per Protocol; Complete Time: 18:47 10/24 18:25 Order name: O2 Sat Monitoring; Complete Time: 18:47 EC:56 Rate is 60 beats/min. Rhythm is regular, Paced. Clinical impression: No evidence of sp4 ischemia. Interpreted by me. Reviewed by me. Administered Medications: 20:17 Drug: morphine IVP or IV 4 mg IVP once over 4 mins Route: IVP; Infused Over: 4 mins; la4 Site: right antecubital; 20:17 Drug: Promethazine PO 25 mg PO once Route: PO; la4 20:18 Drug: Ondansetron IVP 4 mg IVP once; over 2 minutes Route: IVP; Site: right antecubital;la4 Disposition Summary: 10/24/23 20:02 Discharge Ordered Notes: Location: Home sp4 Problem: new sp4 Symptoms: have improved sp4 Condition: Stable sp4 Diagnosis - Other hypoglycemia sp4 - Elevated heart rate, palpitations, nausea without vomiting sp4 Followup: sp4 - With: Private Physician - When: 7 - 10 days - Reason: Recheck today's complaints Discharge Instructions: - Discharge Summary Sheet sp4 - Hypoglycemia, [id number] sp4 Forms: - Patient Portal Instructions sp4 Prescriptions: - ondansetron HCl 4 mg Oral tablet - take 1 tablet ORAL route every 6 hours as needed for nausea and vomiting; 30 sp4 tablet; Refills: 0, Product Selection Permitted NIH Stroke Scale - NIH Stroke Score Date: 10/24/2023 Time: 19:51 Total Score = 0 10. Dysarthria (speech clarity - read or repeat words) - 0(Normal) 11. Extinction and Inattention (visual/tactile/auditory/spatial/personal) - 0(No abnormality) 1a. Level of Consciousness (LOC) - 0(Alert) 1b. Level of Consciousness (LOC) (Month \T\ Age) - 0(Both) 1c. LOC Commands (Open \T\ Closes Eyes/Hand Stapler) - 0(Both) 2. Best Gaze (Lateral Gaze Paresis) - 0(Normal) 3. Visual Field Loss - 0(No visual loss) 4. Facial Palsy - 0(Normal) 5a. Left Arm: Motor (10-second hold) - 0(No drift) 5b. Right Arm: Motor (10-second hold) - 0(No drift) 6a. Left Leg: Motor (5-second hold - always test supine) - 0(No drift) 6b. Right Leg: Motor (5-second hold - always test supine) - 0(No drift) 7. Limb Ataxia (finger/nose \T\ heel/boswell - test with eyes open) - 0(Absent) 8. Sensory Loss (pinprick arms/legs/face) - 0(Normal) 9. Best Language: Aphasia (description/naming/reading) - 0(No aphasia) Initials: sp4 Signatures: Dispatcher [employer] Sharmaine Ashby RN RN mb9 Fuentes Perkins MD MD sp4 Frank Salinas RN RN la4
[2023-10-24 22:15] VITALS: BP 129/90; TEMP 98; O2SAT 100
== END ==
LOC: ER 18:21
DX: E13.649 Other specified diabetes mellitus with hypoglycemia without coma (principal); R00.0 Tachycardia, unspecified; R00.2 Palpitations; R11.0 Nausea; I50.9 Heart failure, unspecified; Z95.810 Presence of automatic (implantable) cardiac defibrillator; Z88.0 Allergy status to penicillin; Z88.1 Allergy status to other antibiotic agents; Z88.5 Allergy status to narcotic agent; Z91.040 Latex allergy status
CPT/HCPCS: 93005; 85025; 80048; 36415; 83735; 85610; 80076; 84484; 83880; 71045; Q0169; J2405

== ENCOUNTER → 2023-12-11 | Emergency (ER) | payer OTHER ==
[~2023-12-11] MED LIST changes: +NA CHLORIDE 0.9% 500 ML ONE; -PROMETHAZINE 25 MG TABLET ONE
[2023-12-11 13:41] LABS: Specific Gravity 1.013 (1.005-1.030); Urine Bilirubin NEGATIVE (Negative); Urine Blood Negative (Negative); Urine Clarity Clear (Clear); Urine Color Light-Yellow (Yellow); Urine Glucose NEGATIVE (Negative); Urine Ketones NEGATIVE (Negative); Urine Microscopic Reflex YN NO UMIC; Urine Nitrite NEGATIVE (Negative); Urine Protein NEGATIVE (Negative); Urine Urobilinogen Normal (Normal); Urine pH 8.5 (5.0-7.0)
[2023-12-11 13:44] LABS: Absolute Basophils 0.1 K/uL (0-0.5); Absolute Eosinophils 0.2 K/uL (0-0.5); Absolute Lymphocytes (CBC) 1.8 K/uL (0.7-4.9); Absolute Monocytes 0.4 K/uL (0.1-1.3); Absolute Neutrophil 6.3 K/uL (1.8-8.0); Basophils % 0.8 % (0-1.3); Eosinophils % 2.1 % (0-4.4); Hematocrit 40.3 % (39.6-49.0); Hemoglobin 13.1 g/dL (13.6-17.9); Lymphocytes % 20.9 % (15.3-44.8); MCH 25.2 pg (27.0-35.0); MCHC 32.5 g/dL (32.0-36.0); MCV 77.4 fL (80-100); MPV 6.9 fL (7.6-11.3); Monocytes % 4.3 % (3.3-12.3); Neutrophils % 71.9 % (41.7-73.7); Platelets 385 thou/uL (152-406); Red Cell Distribution Width 15.4 % (12.1-15.2)
[2023-12-11 14:01] LABS: Anion Gap 9.7 mEq/L (5.0-15.0); Bilirubin Total 0.4 mg/dL (0.2-1.0); Potassium 3.7 mEq/L (3.5-5.1)
--- NOTE | 2023-12-11 14:22 | RAD REPORT ---
EXAM DESCRIPTION: CTAbdomen Pelvis W Contrast - 12/11/2023 2:13 pm CLINICAL HISTORY: Abdominal pain. ABD PAIN COMPARISON: <Comparisons> TECHNIQUE: Biphasic CT imaging of the abdomen and pelvis was performed with 100 ml non-ionic IV cont rast. All CT scans are performed using dose optimization technique as appropriate and may include automated exposure control or mA/KV adjustment according to patient size. FINDINGS: The lung bases are clear.Moderate hiatal hernia. The liver demonstrates diffuse infiltration. Spleen, pancreas, adrenal glands and kidneys are within normal limits. No bowel obstruction, free air, free fluid or abscess. The appendix is normal. No evidence of signi ficant lymphadenopathy. No suspicious bony findings. Lumbar spinal hardware. IMPRESSION: No acute intra-abdominal or pelvic finding. Mild liver.
--- NOTE | 2023-12-11 15:49 | EDPHYS ---
Physician Documentation [facility] Name: Orlando Sanchez Age: 28 yrs Sex: Male : 1995 Arrival Date: 12/11/2023 Time: 11:47 Bed 10 Private MD: Tatiana San ED Physician Nino Moreira HPI: 12/10 12:26 This 28 yrs old Male presents to ER via Ambulatory with complaints of ec2 Vomiting, Abdominal Pain. 12:26 Patient arrives today for evaluation of upper abdominal pain. Patient reports he has ec2 been experiencing worsening pain for the past 2 weeks. Worse over the past week. Reports decreased p.o. intake, associated vomiting, has been having frequent stooling. Reports no urinary complaints, no fevers. History of Manuela fundoplication. Historical: - Allergies: 12:18 Latex; iw 12:18 PENICILLINS; iw 12:18 Naproxen; iw 12:18 Vancomycin; iw 12:18 Omnicef; iw - PMHx: 12:18 GERD; Hernia; Headaches; diabetes mellitus; Congestive heart failure; Atrial iw fibrillation; - PSHx: 12:18 back SX x 2 heart caths; iw - Immunization history:: Adult Immunizations up to date. - Social history:: Smoking status: Patient denies any tobacco usage or history of. ROS: 12:26 Constitutional: as per hpi ec2 Exam: 12:26 Constitutional: GEN: NAD Head: atraumatic Eyes: EOMI Ears: External ears are ec2 normal. CV: regular rate LUNGS: no respiratory distress ABD: non-distended, soft, tender in the right lower quadrant, no guarding, not rigid SKIN: no evidence of rashes MSK: no evidence of trauma NEURO: moves all extremities equally Vital Signs: 12:16 BP 130 / 82; Pulse 90; Resp 16; Pulse Ox 100% on R/A; Weight 120.66 kg; Height 5 ft. 8 iw in. ; Pain 7/10; 15:29 BP 128 / 75; Pulse 88; Resp 15; Temp 97; Pulse Ox 100% ; ko1 16:03 BP 130 / 76; Pulse 84; Resp 15; Temp 97; Pulse Ox 99% on R/A; ko1 12:16 Body Mass Index 40.45 (120.66 kg, 172.72 cm) iw 12:16 Pain Scale: Adult iw MDM: 12:18 Patient medically screened. ec2 12:26 Data reviewed: vital signs. ED course: Patient arrives today for evaluation of general ec2 abdominal pain. Examination remarkable for abdominal findings as noted above. Will obtain lab work, CT imaging, treat the patient's symptoms and reassess. Currently evaluated for process such as pancreatitis, small bowel obstruction, dehydration. 14:15 ED course: CBC reassuring. No leukocytosis. Metabolic profile without electrolyte ec2 disturbances. Urine is noninfectious appearing. Lipase within normal ranges . 15:48 ED course: On reassessment patient is well-appearing in no acute distress. CT scan ec2 shows no acute intra-abdominal process. Will discharge home. Return precautions given. 12/10 12:26 Order name: CBC with Diff; Complete Time: 14:15 ec2 12/10 12:26 Order name: CMP; Complete Time: 14:15 ec2 12/10 12:26 Order name: Lipase; Complete Time: 14:15 ec2 12/10 12:26 Order name: Urinalysis w/ reflexes; Complete Time: 14:15 ec2 12/10 12:26 Order name: CT Abd/Pelvis - IV Contrast Only; Complete Time: 14:23 ec2 12/10 12:26 Order name: IV Saline Lock; Complete Time: 13:37 ec2 12/10 12:26 Order name: Labs collected and sent; Complete Time: 13:37 ec2 Administered Medications: 14:31 Drug: morphine IVP or IV 4 mg IVP once over 4 mins Route: IVP; Infused Over: 4 mins; ko1 Site: right antecubital; 14:45 Follow up: Response: No adverse reaction; Pain is decreased ko1 14:31 Drug: NS 0.9% IV 500 ml IV at bolus once Route: IV; Rate: bolus; Site: right ko1 antecubital; 15:09 Follow up: Response: No adverse reaction; IV Status: Completed infusion; IV Intake: ko1 500ml 14:31 Drug: Ondansetron IVP 4 mg IVP once; over 2 minutes Route: IVP; Site: right antecubital;ko1 14:45 Follow up: Response: No adverse reaction ko1 Disposition Summary: 12/11/23 15:48 Discharge Ordered Notes: Location: Home ec2 Condition: Stable ec2 Diagnosis - Abdominal pain, Generalized ec2 Followup: ec2 - With: Private Physician - When: - Reason: Re-evaluation by your physician Followup: ec2 - With: Greg Montalvo MD - When: - Reason: Recheck today's complaints Discharge Instructions: - Discharge Summary Sheet ec2 - Abdominal Pain, Adult ec2 Forms: - Medication Reconciliation Form ec2 - Thank You Letter ec2 - Antibiotic Education ec2 - Prescription Opioid Use ec2 - Patient Portal Instructions ec2 - Leadership Thank You Letter ec2 Prescriptions: - Zofran 4 mg Oral Tablet - take 1 tablet ORAL route every 12 hours As needed; 20 tablet; Refills: 0, ec2 Product Selection Permitted Signatures: Dispatcher [employer] Irlanda Griffith RN RN iw Oliver, Kathy, RN RN ko1 Nino Moreira MD MD ec2
--- NOTE | 2023-12-11 15:49 | ER ---
Nurse's Notes [facility] Name: Orlando Sanchez Age: 28 yrs Sex: Male : 1995 Arrival Date: 12/11/2023 Time: 11:47 Bed 10 Private MD: Tatiana San Diagnosis: Abdominal pain, Generalized Presentation: 12/10 12:16 Chief complaint: Patient states: nausea X 2 weeks, vomiting started a week ago , iw diarrhea X 2 weeks also. Coronavirus screen: At this time, the client does not indicate any symptoms associated with coronavirus-19. Ebola Screen: Patient negative for fever greater than or equal to 101.5 degrees Fahrenheit, and additional compatible Ebola Virus Disease symptoms Patient denies exposure to infectious person. Patient denies travel to an Ebola-affected area in the 21 days before illness onset. No symptoms or risks identified at this time. Initial Sepsis Screen: Does the patient meet any 2 criteria? No. Patient's initial sepsis screen is negative. Does the patient have a suspected source of infection? No. Patient's initial sepsis screen is negative. Risk Assessment: Do you want to hurt yourself or someone else? Patient reports no desire to harm self or others. Onset of symptoms was November 28, 2023. 12:16 Method Of Arrival: Ambulatory iw 12:16 Acuity: SURJIT 3 iw Historical: - Allergies: 12:18 Latex; iw 12:18 PENICILLINS; iw 12:18 Naproxen; iw 12:18 Vancomycin; iw 12:18 Omnicef; iw - PMHx: 12:18 GERD; Hernia; Headaches; diabetes mellitus; Congestive heart failure; Atrial iw fibrillation; - PSHx: 12:18 back SX x 2 heart caths; iw - Immunization history:: Adult Immunizations up to date. - Social history:: Smoking status: Patient denies any tobacco usage or history of. Screenin:20 [facility] ED Fall Risk Assessment (Adult) History of falling in the last 3 months, ko1 including since admission No falls in past 3 months (0 pts) Confusion or Disorientation No (0 pts) Intoxicated or Sedated No (0 pts) Impaired Gait No (0 pts) Mobility Assist Device Used No (0 pt) Altered Elimination No (0 pt) Score/Fall Risk Level 0 - 2 = Low Risk Oriented to surroundings, Maintained a safe environment, Educated pt \T\ family on fall prevention, incl call for assistance when getting out of bed, Assessed \T\ reinforced patient's understanding of fall precautions, Provided non-skid footwear, Hourly rounding (assess needs \T\ fall precautionary measures) done, Used ambulatory aids as needed (educated on \T\ assisted with), Used gait belt as appropriate. Abuse screen: Denies threats or abuse. Denies injuries from another. Nutritional screening: No deficits noted. Tuberculosis screening: No symptoms or risk factors identified. Assessment: 14:20 General: Appears in no apparent distress. Behavior is calm, cooperative, appropriate ko1 for age. Pain: Complains of pain in abdomen. Neuro: No deficits noted. Cardiovascular: No deficits noted. Respiratory: No deficits noted. GI: Abdomen is non-distended, Reports diarrhea, nausea, vomiting. : No deficits noted. EENT: No deficits noted. Derm: No deficits noted. Musculoskeletal: No deficits noted. Vital Signs: 12:16 BP 130 / 82; Pulse 90; Resp 16; Pulse Ox 100% on R/A; Weight 120.66 kg; Height 5 ft. 8 iw in. ; Pain 7/10; 15:29 BP 128 / 75; Pulse 88; Resp 15; Temp 97; Pulse Ox 100% ; ko1 16:03 BP 130 / 76; Pulse 84; Resp 15; Temp 97; Pulse Ox 99% on R/A; ko1 12:16 Body Mass Index 40.45 (120.66 kg, 172.72 cm) iw 12:16 Pain Scale: Adult iw ED Course: 11:54 Patient arrived in ED. mr 11:54 Tatiana San is Private Physician. mr 12:03 Nino Moreira MD is Attending Physician. ec2 12:18 Triage completed. iw 13:37 CBC with Diff Sent. as6 13:37 CMP Sent. as6 13:37 Lipase Sent. as6 13:37 Urinalysis w/ reflexes Sent. as6 13:37 Initial lab(s) drawn, by me, sent to lab. Inserted saline lock: 22 gauge in right as6 antecubital area, using aseptic technique. Blood collected. 14:07 Niurka Alvarado, GENESIS is Primary Nurse. ko1 14:14 CT Abd/Pelvis - IV Contrast Only In Process Unspecified. EDMS 14:20 No provider procedures requiring assistance completed. ko1 14:20 Patient has correct armband on for positive identification. Allergy band placed. Bed in ko1 low position. Call light in reach. Side rails up X 1. Provided Education on: labs, tests. Client placed on continuous cardiac and pulse oximetry monitoring. NIBP monitoring applied. computer compositor on. Door closed. Noise minimized. Lights dimmed. Warm blanket given. Pillow given. 15:00 Arm band placed on right wrist. Patient placed in an exam room, on a stretcher, on ko1 pulse oximetry, Patient notified of wait time. 15:48 Greg Montalvo MD is Referral Physician. ec2 16:03 IV discontinued, intact, bleeding controlled, No redness/swelling at site. Pressure ko1 dressing applied. Administered Medications: 14:31 Drug: morphine IVP or IV 4 mg IVP once over 4 mins Route: IVP; Infused Over: 4 mins; ko1 Site: right antecubital; 14:45 Follow up: Response: No adverse reaction; Pain is decreased ko1 14:31 Drug: NS 0.9% IV 500 ml IV at bolus once Route: IV; Rate: bolus; Site: right ko1 antecubital; 15:09 Follow up: Response: No adverse reaction; IV Status: Completed infusion; IV Intake: ko1 500ml 14:31 Drug: Ondansetron IVP 4 mg IVP once; over 2 minutes Route: IVP; Site: right antecubital;ko1 14:45 Follow up: Response: No adverse reaction ko1 Medication: 14:20 VIS not applicable for this client. ko1 Intake: 15:09 IV: 500ml; Total: 500ml. ko1 Outcome: 15:48 Discharge ordered by . ec2 16:03 Discharged to home ambulatory, ko1 16:03 Condition: stable 16:03 Discharge instructions given to patient, Instructed on discharge instructions, follow up and referral plans. medication usage, Demonstrated understanding of instructions, follow-up care, medications, Prescriptions given X 1, 16:05 Patient left the ED. ko1 Signatures: Dispatcher [employer] EDNY Bulmaro Sharmaine, Reg Reg mr Irlanda Whitman RN RN iw Hebert Trinh RN RN as6 Niurka Alvarado RN RN ko1 Nino Moreira MD MD ec2 Corrections: (The following items were deleted from the chart) 12:19 12:16 Pulse 90bpm; Resp 16bpm; Pulse Ox 100% RA; 120.66 kg; Height 5 ft. 8 in.; BMI: iw 40.4; Pain 7/10, Adult; iw
[2023-12-11 17:07] VITALS: BP 130/76; TEMP 97; O2SAT 99
== END ==
LOC: ER 11:47
DX: R10.84 Generalized abdominal pain (principal); Z98.61 Coronary angioplasty status; Z88.0 Allergy status to penicillin; Z88.1 Allergy status to other antibiotic agents; Z88.3 Allergy status to other anti-infective agents; Z88.6 Allergy status to analgesic agent; Z91.040 Latex allergy status
CPT/HCPCS: 96361; 85025; 36415; 81003; 83690; 80053; 74177; 96375; 96374; 99285; Q9967; J2405; J7040

== ENCOUNTER → 2023-12-12 | Emergency (ER) | payer OTHER ==
[~2023-12-12] MED LIST changes: +LORazepam 2 MG/ML VIAL ONE; +MORPHINE 2 MG/ML SYR ONE; -MORPHINE 4 MG/ML SYR ONE; -NA CHLORIDE 0.9% 500 ML ONE
[2023-12-12 21:06] LABS: Absolute Basophils 0.1 K/uL (0-0.5); Absolute Eosinophils 0.3 K/uL (0-0.5); Absolute Lymphocytes (CBC) 3.3 K/uL (0.7-4.9); Absolute Monocytes 0.5 K/uL (0.1-1.3); Absolute Neutrophil 5.2 K/uL (1.8-8.0); Basophils % 0.9 % (0-1.3); Eosinophils % 3.4 % (0-4.4); Hematocrit 37.5 % (39.6-49.0); Hemoglobin 12.2 g/dL (13.6-17.9); Lymphocytes % 35.4 % (15.3-44.8); MCH 25.1 pg (27.0-35.0); MCHC 32.4 g/dL (32.0-36.0); MCV 77.5 fL (80-100); MPV 6.8 fL (7.6-11.3); Neutrophils % 55.3 % (41.7-73.7); Nucleated Red Blood Cells % 0.3 % (0-0); Platelets 345 thou/uL (152-406); RBC Red Blood Cell Count 4.84 M/uL (4.33-5.43); Red Cell Distribution Width 15.7 % (12.1-15.2)
[2023-12-12 21:10] LABS: PT Prothrombin Time 11.6 SECONDS (9.5-12.5); Protime INR 1.06
--- NOTE | 2023-12-12 21:13 | RAD REPORT ---
[facility]57 [facility] CLINICAL HISTORY: CHEST PAIN COMPARISON: Chest Single View dated 10/24/2023; Chest Single View dated 08/16/2023; Chest Single View dated 05/14/2023; Chest Single View dated 05/07/2023 TECHNIQUE: Portable AP view of the chest. FINDINGS: The lungs are clear. Right chest wall pacer/ AICD in place. No pneumothorax or effusion. The cardiomediastinal contours are unremarkable. IMPRESSION: No acute cardiopulmonary process.
[2023-12-12 21:32] LABS: ALT/SGPT 30 U/L (16-61); AST/SGOT 10 U/L (15-37); Albumin 3.7 g/dL (3.4-5.0); Alkaline Phosphatase 105 U/L (45-117); Anion Gap 11.6 mEq/L (5.0-15.0); BUN Blood Urea Nitrogen 9 mg/dL (7-18); Bicarbonate 25 mEq/L (21-32); Bilirubin Direct 0.1 mg/dL (0-0.2); Bilirubin Indirect, Calculated 0.3 mg/dL (0.2-0.8); Bilirubin Total 0.4 mg/dL (0.2-1.0); Globulin 3.6 g/dL (2.3-3.5); Glomerular Filtration Rate 93 ml/min (=/>90); Glucose Level 110 mg/dL (74-106); Lipase 22 U/L (13-75); Magnesium 2.1 mg/dL (1.6-2.4); NT PRO-BNP 109 pg/mL (<125); Potassium 3.6 mEq/L (3.5-5.1); Protein, Total 7.3 g/dL (6.4-8.2); Sodium Level 138 mEq/L (136-145)
[2023-12-12 21:33] LABS: Troponin High Sensitivity < 3.0 pg/mL (<58.9)
--- NOTE | 2023-12-13 00:18 | ER ---
Nurse's Notes [facility] Name: Orlando Sanchez Age: 28 yrs Sex: Male : 1995 Arrival Date: 12/12/2023 Time: 20:23 Bed DX3 Private MD: Tatiana San Diagnosis: Chest pain, unspecified;Palpitations;Anxiety disorder, unspecified Presentation: 12/11 20:42 Chief complaint: Patient states: Pt c/o sudden onset of chest pressure, diaphoresis, tl4 and SOB approx 30 min ago. Pt has significant cardiac history. Coronavirus screen: At this time, the client does not indicate any symptoms associated with coronavirus-19. Ebola Screen: No symptoms or risks identified at this time. Initial Sepsis Screen: Does the patient meet any 2 criteria? No. Patient's initial sepsis screen is negative. Does the patient have a suspected source of infection? No. Patient's initial sepsis screen is negative. Risk Assessment: Do you want to hurt yourself or someone else? Patient reports no desire to harm self or others. Onset of symptoms was December 12, 2023 at 20:00. 20:42 Method Of Arrival: Ambulatory tl4 20:42 Acuity: SURJIT 2 tl4 Triage Assessment: 20:43 General: Appears distressed, Behavior is calm, cooperative. Pain: Complains of pain in tl4 chest. EENT: No deficits noted. No signs and/or symptoms were reported regarding the EENT system. Neuro: Level of Consciousness is awake, alert, obeys commands, Oriented to person, place, time, situation, Speech is normal, Facial symmetry appears normal. Cardiovascular: Reports chest pain, diaphoresis, nausea, shortness of breath, Capillary refill < 3 seconds diaphoresis. Respiratory: Reports shortness of breath. GI: Reports nausea, vomiting. : No deficits noted. No signs and/or symptoms were reported regarding the genitourinary system. Derm: No deficits noted. No signs and/or symptoms reported regarding the dermatologic system. Musculoskeletal: No deficits noted. No signs and/or symptoms reported regarding the musculoskeletal system. Historical: - Allergies: 20:44 Latex; tl4 20:44 Naproxen; tl4 20:44 PENICILLINS; tl4 20:44 Omnicef; tl4 20:44 Vancomycin; tl4 - PMHx: 20:44 Atrial fibrillation; Hernia; Congestive heart failure; diabetes mellitus; GERD; tl4 Headaches; - PSHx: 20:46 Cardiac cath x 2; Back surgery; tl4 - Immunization history:: Adult Immunizations unknown. - Social history:: Smoking status: Patient/guardian denies using tobacco, the patient reports quitting approximately 7 years ago. - Family history:: not pertinent. Screenin:00 [facility] ED Fall Risk Assessment (Adult) History of falling in the last 3 months, jb4 including since admission No falls in past 3 months (0 pts) Confusion or Disorientation No (0 pts) Intoxicated or Sedated No (0 pts) Impaired Gait No (0 pts) Mobility Assist Device Used No (0 pt) Altered Elimination No (0 pt) Score/Fall Risk Level 0 - 2 = Low Risk Oriented to surroundings, Maintained a safe environment. Abuse screen: Denies threats or abuse. Nutritional screening: No deficits noted. Tuberculosis screening: No symptoms or risk factors identified. Assessment: 21:00 General: Appears in no apparent distress. comfortable, Behavior is calm, cooperative, jb4 appropriate for age. Pain: Complains of pain in chest Pain does not radiate. Pain currently is 5 out of 10 on a pain scale. Quality of pain is described as pressure, Pain began 2014. Neuro: Level of Consciousness is awake, alert, obeys commands. Cardiovascular: Patient's skin is warm and dry. Respiratory: Airway is patent Respiratory effort is even, unlabored, Respiratory pattern is regular, symmetrical. GI: No signs and/or symptoms were reported involving the gastrointestinal system. : No signs and/or symptoms were reported regarding the genitourinary system. EENT: No signs and/or symptoms were reported regarding the EENT system. Derm: Skin is intact, Skin is pink, warm \T\ dry. Musculoskeletal: Circulation, motion, and sensation intact. Range of motion: intact in all extremities. 22:15 Reassessment: Patient appears in no apparent distress at this time. Patient and/or jb4 family updated on plan of care and expected duration. Pain level reassessed. Patient is alert, oriented x 3, equal unlabored respirations, skin warm/dry/pink. Vital Signs: 20:42 BP 125 / 93; Pulse 76; Resp 22; Temp 98; Pulse Ox 100% on R/A; Weight 120.66 kg; Height tl4 5 ft. 8 in. ; Pain 5/10; 22:15 BP 108 / 74; Pulse 65; Resp 16; Pulse Ox 100% on R/A; jb4 20:42 Body Mass Index 40.44 (120.66 kg, 172.72 cm) tl4 20:42 Pain Scale: Adult tl4 Ary Coma Score: 12/12 19:03 Eye Response: spontaneous(4). Motor Response: obeys commands(6). Verbal Response: sp4 oriented(5). Total: 15. ED Course: 12/11 20:27 Patient arrived in ED. mr 20:27 Mena Tatiana is Private Physician. mr 20:28 Fuentes Perkins MD is Attending Physician. sp4 20:32 Duke Macdonald, GENESIS is Primary Nurse. jb4 20:43 Triage completed. tl4 20:43 Arm band placed on right wrist. tl4 20:55 Initial lab(s) drawn, by nc, sent to lab. Inserted saline lock: 20 gauge in right jb4 antecubital area, using aseptic technique. Blood collected. Missed attempt(s): 18 gauge in right antecubital area. Patient maintains SpO2 saturation greater than 95% on room air. 20:56 Troponin HS Sent. jb4 20:56 PT-INR Sent. jb4 20:56 NT PRO-BNP Sent. jb4 20:56 Magnesium Sent. jb4 20:56 LFT's Sent. jb4 20:56 CBC with Diff Sent. jb4 20:56 Basic Metabolic Panel Sent. jb4 20:59 XRAY Chest (1 view) In Process Unspecified. EDMS 21:00 Patient has correct armband on for positive identification. Bed in low position. Call jb4 light in reach. Side rails up X 1. Provided Education on: Medications being administered. Client placed on continuous cardiac and pulse oximetry monitoring. NIBP monitoring applied. satellite project site monitor on. 21:00 No provider procedures requiring assistance completed. jb4 12/12 00:27 IV discontinued, intact, bleeding controlled, No redness/swelling at site. Pressure cm10 dressing applied. Administered Medications: 12/11 21:17 Drug: morphine IVP or IV 2 mg IVP once over 4 mins Route: IVP; Infused Over: 4 mins; jb4 Site: right antecubital; 21:17 Drug: Ativan IVP 1 mg IVP once Route: IVP; Site: right antecubital; jb4 21:17 Drug: Ondansetron IVP 4 mg IVP once; over 2 minutes Route: IVP; Site: right antecubital;jb4 Medication: 21:00 VIS not applicable for this client. jb4 Outcome: 12/12 00:17 Discharge ordered by . spAretha 00:27 Discharged to home ambulatory, cm10 00:27 Condition: good 00:27 Discharge instructions given to patient, Instructed on discharge instructions, follow up and referral plans. 00:27 Patient left the ED. cm10 Signatures: Dispatcher [employer] EDMS Bulmaro Sharmaine, Reg Reg mr Duke Macdonald, RN RN jb4 Fuentes Perkins MD MD sp4 Quiana Finney RN RN cm10 Benito Kessler RN RN tl4 Corrections: (The following items were deleted from the chart) 12/11 20:47 20:44 PSHx: back SX x 2 heart caths; tl4 tl4 20:47 20:44 PSHx: Cardiac Catheterization x 2 (Headaches); tl4 tl4
--- NOTE | 2023-12-13 00:18 | EDPHYS ---
Physician Documentation [facility] Name: Orlando Sanchez Age: 28 yrs Sex: Male : 1995 Arrival Date: 12/12/2023 Time: 20:23 Bed DX3 Private MD: Tatiana San ED Physician Fuentes Perkins HPI: 12/11 20:28 This 28 yrs old Male presents to ER via Unassigned with complaints of Chest sp4 Tightness, Dizziness. 20:29 Allergies: Latex; PENICILLINS; Naproxen; Vancomycin; Omnicef PMHx: GERD; Hernia; sp4 Headaches; diabetes mellitus; Congestive heart failure; Atrial fibrillation PSHx: back SX x 2 heart caths; . 20:48 28-year-old male with history of atrial fibrillation congestive heart failure, diabetes sp4 GERD, presents with acute onset moderate midsternal chest pain associated with a rapid heart rate and palpitations also breaking out in sweats. Patient reported chest pain onset was estimated 35 minutes prior to arrival. Patient takes metoprolol, Corlanor, Xarelto 20 mg twice daily, aspirin 81 mg daily, also as needed torsemide. 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 For the past 2 weeks patient had episodic of vomiting. . Historical: - Allergies: 20:44 Latex; tl4 20:44 Naproxen; tl4 20:44 PENICILLINS; tl4 20:44 Omnicef; tl4 20:44 Vancomycin; tl4 - PMHx: 20:44 Atrial fibrillation; Hernia; Congestive heart failure; diabetes mellitus; GERD; tl4 Headaches; - PSHx: 20:46 Cardiac cath x 2; Back surgery; tl4 - Immunization history:: Adult Immunizations unknown. - Social history:: Smoking status: Patient/guardian denies using tobacco, the patient reports quitting approximately 7 years ago. - Family history:: not pertinent. ROS: 12/12 19:07 Constitutional: Negative for fever, chills, and weight loss, positive chest tightness sp4 and dizziness also positive palpitations All other systems are negative, Exam: 19:03 ECG was reviewed by the Attending Physician. EKG at 1936 normal sinus rhythm at rate of sp4 71 19:07 Constitutional: This is a well developed, well nourished patient who is awake, alert, sp4 and in no acute distress. Head/Face: Normocephalic, atraumatic. Eyes: Pupils equal round and reactive to light, extra-ocular motions intact. Lids and lashes normal. Conjunctiva and sclera are not injected. Cornea within normal limits. Periorbital areas with no swelling, redness, or edema. ENT: Nares patent. No nasal discharge, no septal abnormalities noted. Tympanic membranes are normal and external auditory canals are clear. Oropharynx with no redness, swelling, or masses, exudates, or evidence of obstruction, uvula midline. Mucous membranes moist. Neck: Trachea midline, no thyromegaly or masses palpated, and no cervical lymphadenopathy. Supple, full range of motion without nuchal rigidity, or vertebral point tenderness. Chest/axilla: Normal chest wall appearance and motion. Nontender with no deformity. No lesions are appreciated. Cardiovascular: Regular rate and rhythm with a normal S1 and S2. No gallops, murmurs, or rubs. Normal PMI, no JVD. No pulse deficits. Respiratory: Lungs have equal breath sounds bilaterally, clear to auscultation and percussion. No rales, rhonchi or wheezes noted. No increased work of breathing, no retractions or nasal flaring. Abdomen/GI: Soft, with normal bowel sounds. No distension or tympany. No guarding or rebound. No evidence of tenderness throughout. Back: No spinal tenderness. No costovertebral tenderness. Skin: Warm, dry with normal turgor. Normal color with no rashes, no lesions, and no evidence of cellulitis. MS/ Extremity: Pulses equal, no cyanosis. Neurovascular intact. Full, normal range of motion. Neuro: Awake and alert, GCS 15, oriented to person, place, time, and situation. Cranial nerves II-XII grossly intact. Motor strength 5/5 in all extremities. Sensory grossly intact. Psych: Awake, alert, with orientation to person, place and time. Behavior, mood, and affect are within normal limits Vital Signs: 12/11 20:42 BP 125 / 93; Pulse 76; Resp 22; Temp 98; Pulse Ox 100% on R/A; Weight 120.66 kg; Height tl4 5 ft. 8 in. ; Pain 5/10; 22:15 BP 108 / 74; Pulse 65; Resp 16; Pulse Ox 100% on R/A; jb4 20:42 Body Mass Index 40.44 (120.66 kg, 172.72 cm) tl4 20:42 Pain Scale: Adult tl4 Ary Coma Score: 12/12 19:03 Eye Response: spontaneous(4). Motor Response: obeys commands(6). Verbal Response: sp4 oriented(5). Total: 15. MDM: 12/11 20:31 Patient medically screened. [facility] 12/12 19:03 HEART Score: History: Moderately Suspicious (1), ECG: Normal (0), Age: < or = 45 years sp4 (0), Risk Factors: > or = 3 Risk factors for atherosclerotic disease (2), Troponin: < or = 1 x Normal Limit (0), Total Score = 3. Data reviewed: vital signs, nurses notes, old medical records, lab test result(s), EKG, radiologic studies, plain films. ED course: Patient has markedly improved after management of anxiety and requested to be released home. At this time workup is negative and we deemed discharge appropriate. . 19:07 Consideration of Admission/Observation Escalation of care including sp4 admission/observation considered. 12/11 20:29 Order name: Basic Metabolic Panel; Complete Time: 23:50 [facility] 12/11 20:29 Order name: CBC with Diff; Complete Time: 23:50 [facility] 12/11 20:29 Order name: LFT's; Complete Time: 23:50 4 12/11 20:29 Order name: Magnesium; Complete Time: 23:50 4 12/11 20:29 Order name: NT PRO-BNP; Complete Time: 23:50 4 12/11 20:29 Order name: PT-INR; Complete Time: 23:50 4 12/11 20:29 Order name: Troponin HS; Complete Time: 23:50 [facility] 12/11 21:09 Order name: Lipase; Complete Time: 23:50 EDMS 12/11 20:29 Order name: XRAY Chest (1 view); Complete Time: 23:50 [facility] 12/11 20:29 Order name: EKG; Complete Time: 20:30 sp4 12/11 20:29 Order name: Cardiac monitoring; Complete Time: 20:41 4 12/11 20:29 Order name: EKG - Nurse/Tech; Complete Time: 20:41 sp4 12/11 20:29 Order name: IV Saline Lock; Complete Time: 20:55 sp4 12/11 20:29 Order name: Labs collected and sent; Complete Time: 20:55 sp4 12/11 20:29 Order name: O2 Per Protocol; Complete Time: 20:41 sp4 12/11 20:29 Order name: O2 Sat Monitoring; Complete Time: 20:41 sp4 EC:03 Rate is 71 beats/min. Rhythm is regular, Normal Sinus Rhythm. QRS [place] is Normal. [place] sp4 interval is normal. QRS interval is normal. QT interval is normal. No Q waves. T waves are Normal. No ST changes noted. Clinical impression: No evidence of ischemia. Interpreted by me. Reviewed by me. Administered Medications: 12/11 21:17 Drug: morphine IVP or IV 2 mg IVP once over 4 mins Route: IVP; Infused Over: 4 mins; jb4 Site: right antecubital; 21:17 Drug: Ativan IVP 1 mg IVP once Route: IVP; Site: right antecubital; jb4 21:17 Drug: Ondansetron IVP 4 mg IVP once; over 2 minutes Route: IVP; Site: right antecubital;jb4 Disposition Summary: 12/13/23 00:17 Discharge Ordered Notes: Location: Home sp4 Problem: new sp4 Symptoms: have improved sp4 Condition: Stable sp4 Diagnosis - Chest pain, unspecified sp4 - Palpitations sp4 - Anxiety disorder, unspecified sp4 Followup: sp4 - With: Private Physician - When: 7 - 10 days - Reason: Recheck today's complaints Discharge Instructions: - Discharge Summary Sheet sp4 - Nonspecific Chest Pain, Adult, [id number] sp4 Prescriptions: - Valium 5 mg Oral tablet - take 1 tablet ORAL route once daily As needed PRN anxiety; 20 tablet; Refills: sp4 0, Product Selection Permitted Signatures: Dispatcher [employer] Duke Shelley RN RN jb4 Fuentes Perkins MD MD sp4 Benito Kessler RN RN tl4 Corrections: (The following items were deleted from the chart) 20:47 20:44 PSHx: back SX x 2 heart caths; tl4 tl4 20:47 20:44 PSHx: Cardiac Catheterization x 2 (Headaches); tl4 tl4 21:10 20:49 LIPASE+C.LAB.BRZ ordered. EDMS EDMS 12/12 19:08 12/11 20:48 8-year-old male with history of atrial fibrillation congestive heart sp4 failure, diabetes GERD, presents with acute onset moderate midsternal chest pain associated with a rapid heart rate and palpitations also breaking out in sweats. Patient reported chest pain onset was estimated 35 minutes prior to arrival. Patient takes metoprolol, Corlanor, Xarelto 20 mg twice daily, aspirin 81 mg daily, also as needed torsemide. 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 For the past 2 weeks patient had episodic of vomiting. . sp4
[2023-12-13 00:51] VITALS: BP 108/74; TEMP 98; O2SAT 100
== END ==
LOC: ER 20:23
DX: R07.89 Other chest pain (principal); R00.2 Palpitations; F41.9 Anxiety disorder, unspecified; I48.91 Unspecified atrial fibrillation; Z79.01 Long term (current) use of anticoagulants; I50.9 Heart failure, unspecified; Z79.82 Long term (current) use of aspirin; Z88.0 Allergy status to penicillin; Z88.1 Allergy status to other antibiotic agents; Z88.3 Allergy status to other anti-infective agents; Z88.5 Allergy status to narcotic agent; Z88.6 Allergy status to analgesic agent
CPT/HCPCS: 85025; 80048; 36415; 83735; 85610; 80076; 84484; 83690; 83880; 71045; 96375; 96374; 99285; J2270; J2405; 93005

== ENCOUNTER → 2023-12-19 | Emergency (ER) | payer OTHER ==
[~2023-12-19] MED LIST changes: -LORazepam 2 MG/ML VIAL ONE; -MORPHINE 2 MG/ML SYR ONE; +MORPHINE 4 MG/ML SYR ONE
[2023-12-19 23:12] LABS: Absolute Basophils 0.1 K/uL (0-0.5); Absolute Eosinophils 0.3 K/uL (0-0.5); Absolute Lymphocytes (CBC) 4.2 K/uL (0.7-4.9); Absolute Monocytes 0.7 K/uL (0.1-1.3); Absolute Neutrophil 5.5 K/uL (1.8-8.0); Basophils % 0.9 % (0-1.3); Eosinophils % 3.1 % (0-4.4); Hematocrit 41.2 % (39.6-49.0); Hemoglobin 13.3 g/dL (13.6-17.9); Lymphocytes % 38.9 % (15.3-44.8); MCHC 32.4 g/dL (32.0-36.0); MCV 77.1 fL (80-100); Monocytes % 6.5 % (3.3-12.3); Neutrophils % 50.6 % (41.7-73.7); Platelets 455 thou/uL (152-406); RBC Red Blood Cell Count 5.34 M/uL (4.33-5.43); Red Cell Distribution Width 15.5 % (12.1-15.2)
[2023-12-19 23:30] LABS: Anion Gap 15.3 mEq/L (5.0-15.0); Magnesium 2.1 mg/dL (1.6-2.4); Potassium 3.3 mEq/L (3.5-5.1); Troponin High Sensitivity 3.1 pg/mL (<58.9)
--- NOTE | 2023-12-20 00:51 | ER ---
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 Pt states that the cough is productive and hes coughing up white frothy sputum. Pt reports receiving a total of Lasix 160mg over the last 2 days and a 9 pound weight loss. Coronavirus screen: Client denies travel out of the [place] in the last 14 days. At this time, the client does not indicate any symptoms associated with coronavirus-19. Ebola Screen: Patient denies travel to an Ebola-affected area in the 21 days before illness onset. No symptoms or risks identified at this time. Initial Sepsis Screen: Does the patient meet any 2 criteria? No. Patient's initial sepsis screen is negative. Does the patient have a suspected source of infection? No. Patient's initial sepsis screen is negative. Risk Assessment: Do you want to hurt yourself or someone else? Patient reports no desire to harm self or others. Onset of symptoms was December 19, 2023. 22:40 Method Of Arrival: Ambulatory cm10 22:40 Acuity: SURJIT 2 cm10 Historical: - Allergies: 22:42 Latex; cm10 22:42 Naproxen; cm10 22:42 Omnicef; cm10 22:42 PENICILLINS; cm10 22:42 Vancomycin; cm10 22:42 Doxycycline; cm10 22:42 Cefdinir; cm10 - PMHx: 22:42 Atrial fibrillation; Hernia; Headaches; diabetes mellitus; Congestive heart failure; cm10 GERD; - PSHx: 22:42 Cardiac cath x 2; back surgery; cm10 - Immunization history:: Adult Immunizations up to date. - Social history:: Smoking status: Patient denies any tobacco usage or history of. - Family history:: not pertinent. Screenin:57 [facility] ED Fall Risk Assessment (Adult) History of falling in the last 3 months, km8 including since admission No falls in past 3 months (0 pts) Confusion or Disorientation No (0 pts) Intoxicated or Sedated No (0 pts) Impaired Gait No (0 pts) Mobility Assist Device Used No (0 pt) Altered Elimination No (0 pt) Score/Fall Risk Level 0 - 2 = Low Risk Oriented to surroundings, Maintained a safe environment, Educated pt \T\ family on fall prevention, incl call for assistance when getting out of bed, Assessed \T\ reinforced patient's understanding of fall precautions. Abuse screen: Denies threats or abuse. Denies injuries from another. Nutritional screening: No deficits noted. Tuberculosis screening: No symptoms or risk factors identified. Assessment: 22:57 General: Appears uncomfortable, Behavior is calm, cooperative, appropriate for age. km8 Pain: Denies pain. Neuro: Level of Consciousness is awake, alert, obeys commands, Oriented to person, place, time, situation. Cardiovascular: Reports shortness of breath, Patient's skin is warm and dry. Rhythm is regular. Respiratory: Airway is patent Respiratory effort is even, labored, Respiratory pattern is regular, symmetrical, Breath sounds are clear bilaterally. GI: No signs and/or symptoms were reported involving the gastrointestinal system. : No signs and/or symptoms were reported regarding the genitourinary system. EENT: No signs and/or symptoms were reported regarding the EENT system. Derm: No signs and/or symptoms reported regarding the dermatologic system. Skin is intact, is healthy with good turgor, Skin is clammy, Skin is pink, warm \T\ dry. normal, Skin temperature is warm. Musculoskeletal: No signs and/or symptoms reported regarding the musculoskeletal system. Range of motion: intact in all extremities. 23:55 Reassessment: No changes from previously documented assessment. tm6 12/19 00:47 Reassessment: Patient appears in no apparent distress at this time. Patient and/or km8 family updated on plan of care and expected duration. Pain level reassessed. Patient is alert, oriented x 3, equal unlabored respirations, skin warm/dry/pink. Patient states feeling better. Patient states symptoms have improved. Vital Signs: 12/18 22:40 BP 156 / 101; Pulse 73; Resp 15; Temp 98.2; Pulse Ox 100% on R/A; Weight 119.02 kg; cm10 Height 5 ft. 8 in. ; Pain 6/10; 23:15 BP 106 / 62; Pulse 60; Resp 20; Pulse Ox 100% on R/A; km8 23:55 BP 106 / 75; Pulse 60; Pulse Ox 100% on R/A; tm6 12/19 00:30 BP 116 / 83; Pulse 60; Resp 16; Temp 97.5(IR); Pulse Ox 100% on R/A; km8 12/18 22:40 Body Mass Index 39.90 (119.02 kg, 172.72 cm) cm10 03 22:40 Pain Scale: Adult cm10 Ary Coma Score: 12/18 22:57 Eye Response: spontaneous(4). Motor Response: obeys commands(6). Verbal Response: km8 oriented(5). Total: 15. ED Course: 22:30 Patient arrived in ED. mr 22:30 Tatiana San is Private Physician. mr 22:30 Rogelio London MD is Attending Physician. rt 22:30 Nuzhat Salgado FNP-C is [facility]. kb 22:42 Triage completed. cm10 22:43 Roger Paul, RN is Primary Nurse. tm6 22:43 Arm band placed on Patient placed in an exam room, on a stretcher, on surveillance monitor, cm10 on pulse oximetry. 22:56 Basic Metabolic Panel Sent. tm6 22:56 CBC with Diff Sent. tm6 22:56 Magnesium Sent. tm6 22:56 NT PRO-BNP Sent. tm6 22:56 Troponin HS Sent. tm6 22:56 Inserted saline lock: 20 gauge in right antecubital area, using aseptic technique. km8 Blood collected. 22:57 Patient has correct armband on for positive identification. Placed in gown. Bed in low km8 position. Call light in reach. Side rails up X2. compliance monitor on. Pulse ox on. NIBP on. 22:57 Patient maintains SpO2 saturation greater than 95% on room air. km8 23:00 EKG done, by ED staff, reviewed by Rogelio London MD. tm6 23:06 XRAY Chest (1 view) In Process Unspecified. EDMS 12/19 00:47 No provider procedures requiring assistance completed. km8 01:03 Provided Education on: d/c teaching. km8 01:09 IV discontinued, intact, bleeding controlled, No redness/swelling at site. Pressure km8 dressing applied. Administered Medications: 12/18 23:56 Drug: morphine IVP or IV 4 mg IVP once over 4 mins Route: IVP; Infused Over: 4 mins; km8 Site: right antecubital; 12/19 00:47 Follow up: Response: No adverse reaction; Pain is decreased 8 12/18 23:56 Drug: Ondansetron IVP 4 mg IVP once; over 2 minutes Route: IVP; Site: right antecubital;km8 12/19 00:47 Follow up: Response: No adverse reaction km8 Medication: 00:47 VIS not applicable for this client. km8 Outcome: 00:50 Discharge ordered by . rt 01:10 Discharged to home ambulatory, km8 01:10 Condition: good 01:10 Discharge instructions given to patient, Instructed on discharge instructions, follow up and referral plans. medication usage, Demonstrated understanding of instructions, follow-up care, medications, Prescriptions given X 1, 01:10 Patient left the ED. 8 Signatures: Dispatcher [employer] EDMS Nuzhat Saglado, IRRIGATION INSTALLATION SPECIALIST-C IRRIGATION INSTALLATION SPECIALIST-Ckb Sharmaine Chamberlain, Reg Reg mr Rogelio London MD MD rt Quiana Finney, RN RN cm10 Sofia Shaw, GENESIS RN km8 Roger Paul, RN RN tm6 Corrections: (The following items were deleted from the chart) 01:09 00:30 BP 116 / 83; Pulse 60bpm; Resp 16bpm; Pulse Ox 100% RA; km8 km8
--- NOTE | 2023-12-20 00:51 | EDPHYS ---
Physician Documentation [facility] Name: Orlando Sanchez Age: 28 yrs Sex: Male : 1995 Arrival Date: 12/19/2023 Time: 22:29 Bed 6 Private MD: Tatiana San ED Physician Rogelio London HPI: 12/18 22:56 This 28 yrs old Male presents to ER via Ambulatory with complaints of Cough, Shortness rt Of Breath. 22:56 Patient with history of CHF presents to the ED with cough, progressively worsening rt shortness of breath. Over the past 2 days, patient went to an urgent care [facility] where he received 80 mg of Lasix IV as well as metaxalone. States that over this time, he is lost about 9 pounds worth of water weight. He reports continued cough, shortness of breath, orthopnea. Denies other acute complaints at this time, symptoms are moderate in severity, no other aggravating or elevating factors.. Historical: - Allergies: 22:42 Latex; cm10 22:42 Naproxen; cm10 22:42 Omnicef; cm10 22:42 PENICILLINS; cm10 22:42 Vancomycin; cm10 22:42 Doxycycline; cm10 22:42 Cefdinir; cm10 - PMHx: 22:42 Atrial fibrillation; Hernia; Headaches; diabetes mellitus; Congestive heart failure; cm10 GERD; - PSHx: 22:42 Cardiac cath x 2; back surgery; cm10 - Immunization history:: Adult Immunizations up to date. - Social history:: Smoking status: Patient denies any tobacco usage or history of. - Family history:: not pertinent. ROS: 22:56 Constitutional: Negative for fever, chills, and weight loss, Cardiovascular: Negative rt for chest pain, palpitations, and edema, Abdomen/GI: Negative for abdominal pain, nausea, vomiting, diarrhea, and constipation, MS/Extremity: Negative for injury and deformity, Skin: Negative for injury, rash, and discoloration, Neuro: Negative for headache, weakness, numbness, tingling, and seizure, Psych: Negative for depression, anxiety, suicide ideation, homicidal ideation, and hallucinations, 22:56 Respiratory: Positive for cough, shortness of breath, Exam: 22:56 Constitutional: This is a well developed, well nourished patient who is awake, alert, rt and in no acute distress. Head/Face: Normocephalic, atraumatic. Chest/axilla: Normal chest wall appearance and motion. Nontender with no deformity. No lesions are appreciated. Cardiovascular: Regular rate and rhythm with a normal S1 and S2. No gallops, murmurs, or rubs. Normal PMI, no JVD. No pulse deficits. Abdomen/GI: Soft, non-tender, with normal bowel sounds. No distension or tympany. No guarding or rebound. No evidence of tenderness throughout. Skin: Warm, dry with normal turgor. Normal color with no rashes, no lesions, and no evidence of cellulitis. MS/ Extremity: Pulses equal, no cyanosis. Neurovascular intact. Full, normal range of motion. Neuro: Awake and alert, GCS 15, oriented to person, place, time, and situation. Cranial nerves II-XII grossly intact. Motor strength 5/5 in all extremities. Sensory grossly intact. Cerebellar exam normal. Normal gait. 22:56 Respiratory: Faint bibasilar crackles, no respiratory distress, 23:15 ECG was reviewed by the Attending Physician. rt Vital Signs: 22:40 BP 156 / 101; Pulse 73; Resp 15; Temp 98.2; Pulse Ox 100% on R/A; Weight 119.02 kg; cm10 Height 5 ft. 8 in. ; Pain 6/10; 23:15 BP 106 / 62; Pulse 60; Resp 20; Pulse Ox 100% on R/A; km8 23:55 BP 106 / 75; Pulse 60; Pulse Ox 100% on R/A; tm6 12/19 00:30 BP 116 / 83; Pulse 60; Resp 16; Temp 97.5(IR); Pulse Ox 100% on R/A; km8 12/18 22:40 Body Mass Index 39.90 (119.02 kg, 172.72 cm) cm10 12/18 22:40 Pain Scale: Adult cm10 [place] Coma Score: 12/18 22:57 Eye Response: spontaneous(4). Motor Response: obeys commands(6). Verbal Response: km8 oriented(5). Total: 15. MDM: 22:30 Patient medically screened. kb 12/19 03:05 Differential Diagnosis: Other Cough, viral syndrome, CHF, pneumonia. rt 03:05 Data reviewed: vital signs, nurses notes, lab test result(s), EKG, radiologic studies. rt Consideration of Admission/Observation Escalation of care including admission/observation considered. Patient was stable vital signs, no elevation of BNP, troponin, clear chest x-ray. Patient is diuresing at home. No meet indications for admission to the hospital, is feeling better with treatment in the ED.. I considered the following discharge prescriptions or medication management in the emergency department Medications were administered in the Emergency Department. See MAR. Independent interpretation of the following test(s) in the Emergency Department X-Ray: My interpretation is No pneumonia seen on interpretation of x-ray images. Test considered but Not performed: CT: Low suspicion for pulmonary embolism, CT angiogram not indicated. Care significantly affected by the following chronic conditions: Congestive Heart Failure. Counseling: I had a detailed discussion with the patient and/or guardian regarding the historical points, exam findings, and any diagnostic results supporting the discharge/admit diagnosis, lab results, radiology results, the need for outpatient follow up, to return to the emergency department if symptoms worsen or persist or if there are any questions or concerns that arise at home. Response to treatment: the patient's symptoms have markedly improved after treatment. 12/18 22:46 Order name: Basic Metabolic Panel; Complete Time: 23:30 rt 12/18 22:46 Order name: CBC with Diff; Complete Time: 23:30 rt 12/18 22:46 Order name: Magnesium; Complete Time: 23:30 rt 12/18 22:46 Order name: NT PRO-BNP; Complete Time: 23:30 rt 12/18 22:46 Order name: Troponin HS; Complete Time: 23:30 rt 12/18 22:46 Order name: XRAY Chest (1 view) rt 12/18 22:46 Order name: EKG; Complete Time: 22:47 rt 12/18 22:46 Order name: Cardiac monitoring; Complete Time: 22:50 rt 12/18 22:46 Order name: EKG - Nurse/Tech; Complete Time: 23:00 rt 12/18 22:46 Order name: IV Saline Lock; Complete Time: 22:56 rt 12/18 22:46 Order name: Labs collected and sent; Complete Time: 22:56 rt 12/18 22:46 Order name: O2 Per Protocol; Complete Time: 22:50 rt 12/18 22:46 Order name: O2 Sat Monitoring; Complete Time: 22:50 rt EC/22 23:15 Rate is 65 beats/min. Rhythm is regular, Normal Sinus Rhythm with No ectopy. QRS [place] rt is Normal. [place] interval is normal. QT interval is normal. No Q waves. Clinical impression: NSR w/ Non-specific ST/T Changes. Administered Medications: 23:56 Drug: morphine IVP or IV 4 mg IVP once over 4 mins Route: IVP; Infused Over: 4 mins; km8 Site: right antecubital; 12/19 00:47 Follow up: Response: No adverse reaction; Pain is decreased [facility] 12/18 23:56 Drug: Ondansetron IVP 4 mg IVP once; over 2 minutes Route: IVP; Site: right antecubital;8 12/19 00:47 Follow up: Response: No adverse reaction 8 Disposition Summary: 12/20/23 00:50 Discharge Ordered Notes: Location: Home rt Condition: Stable rt Diagnosis - Cough rt Followup: rt - With: Private Physician - When: 2 - 3 days - Reason: Discharge Instructions: - Discharge Summary Sheet rt - Cough, Adult rt - Heart Failure, Self-Care rt Forms: - Medication Reconciliation Form rt - Thank You Letter rt - Antibiotic Education rt - Prescription Opioid Use rt - Patient Portal Instructions rt - Leadership Thank You Letter rt Prescriptions: - Ativan 1 mg Oral Tablet - take 1 tablet ORAL route every 8 hours As needed; 10 tablet; Refills: 0, rt Product Selection Permitted Signatures: Dispatcher [employer] Nuzhat Haas, CHEERLEADING COACH-C CHEERLEADING COACH-Rogelio David MD MD rt Quiana Finney, RN RN cm10 Sofia Shaw, RN RN km8
[2023-12-20 01:15] VITALS: O2SAT 100
[2023-12-20 01:45] VITALS: BP 116/83; TEMP 97.5
--- NOTE | 2023-12-20 20:21 | RAD REPORT ---
EXAM DESCRIPTION: RAD - Chest Single View - 12/19/2023 11:04 pm CLINICAL HISTORY: The patient is 28 years old and is Male; COUGH TECHNIQUE: Frontal view of the chest. COMPARISON: No relevant prior studies available. FINDINGS: Lungs: Mildly prominent interstitial markings. No consolidation. Pleural space: Unremarkable. No pneumothorax. Heart: Unremarkable. Mediastinum: Unremarkable. Normal mediastinal contour. Bones/joints: Postsurgical changes in the spine. Tubes, lines and devices: Device overlying the right chest. IMPRESSION: Mildly prominent interstitial markings. No consolidation. Electronically signed by: Jaciel Dougherty MD 12/19/2023 11:34 PM CDT Due to temporary technical issues with the PACS/Fluency reporting system, reports are being signed by the in house radiologists without review as a courtesy to insure prompt reporting. The interpreting radiologist is fully responsible for the content of the report.
--- NOTE | 2023-12-22 14:22 | EKG ---
Test Date: 2023-12-19 Test Time: 21:57:13 Field Operations Manager: LAKESHA MEASUREMENT RESULTS: Intervals: Rate: 65 DC: 140 QRSD: 98 QT: 414 QTc: 430 [place]: P: 19 DC: 140 QRS: 25 T: -9 INTERPRETIVE STATEMENTS: Normal sinus rhythm Nonspecific T wave abnormality Abnormal ECG Compared to ECG 12/12/2023 19:36:21 T-wave abnormality now present ST (T wave) deviation no longer present Electronically Signed On 12-22-23 14:15:34 CDT by Brendon Ross
== END ==
LOC: ER 22:29
DX: R05.9 Cough, unspecified (principal); R06.02 Shortness of breath; I50.9 Heart failure, unspecified; I48.91 Unspecified atrial fibrillation; E11.9 Type 2 diabetes mellitus without complications; Z98.61 Coronary angioplasty status; Z88.0 Allergy status to penicillin; Z88.1 Allergy status to other antibiotic agents; Z88.3 Allergy status to other anti-infective agents; Z88.6 Allergy status to analgesic agent
CPT/HCPCS: 85025; 80048; 36415; 83735; 84484; 83880; 71045; J2405; 93005; 96374; 96375; 99285